=== PATIENT | male | born 1950 | race Caucasian/White ===

== ENCOUNTER 2020-05-21 09:00 | Outpatient (CLI) | payer MEDICARE, OTHER, SELFPAY ==
--- NOTE | ~2020-05-21 | CT_ITS ---
EXAMINATION: CT diagnostic chest wo con DATE: 05/21/2020 09:22 INDICATION: J39.8 - Other specified diseases of upper respiratory tract. Mass of the trachea. TECHNIQUE: Computed tomography (CT) of the chest was performed without intravenous contrast. Addition al 3D reconstructions utilizing coronal maximum intensity projection (MIP) were performed. Automated exposure control and iterative reconstruction technique were employed. The dose-length product was 65 6.50 mGy-cm. COMPARISON: CT dated 04/08/2020 and 11/17/2017 FINDINGS: Again seen is a linear band of discoid atelectasis/scarring in the left lower lobe. Tiny posterior la yering left pleural effusion. No change since 11/17/2017 and a likely benign 7 x 4 mm nodule in the ri ght lower lung along the major fissure. Also unchanged are a few additional smaller along the right m ajor and minor fissures most likely representing intrafissural lymph nodes. Calcified right lower lob e nodules and calcified right hilar and mediastinal lymph nodes consistent with old granulomatous dis ease. No pneumonia, pulmonary edema or right pleural effusion. Heart size is normal. Small amount of atherosclerotic coronary artery calcifications. No pericardial effusion. Cardiac pacemaker/defibrilla tor lead with tip near the apex of the right ventricle. Thoracic aorta is normal in caliber. There ar e couple small nodular densities, one with central small foci of gas along the posterior wall of the trachea which are new since the prior study. The prior, larger and slightly more cephalad and right l aterally positioned nodular density is no longer present. The changing number, size and position of t he densities is most consistent with mucous. No other endotracheal or endobronchial lesions identifie d. No pathologically enlarged thoracic lymphadenopathy. A few tiny hepatic and splenic calcific lesio ns consistent with old granulomatous disease. Chronic mild superior endplate compression fractures at T8 and T9. IMPRESSION: 1. Small nodular densities on the posterior wall of the trachea which have changed in number, size an d position since the relatively recent outside institution CT dated 04/08/2020 consistent with mucous. No fixed endotracheal/endobronchial nodules suspicious for neoplasm. 2. Tiny left pleural effusion. Reviewed, dictated and finalized at location A. [employer] IMPRESSION: 1. Small nodular densities on the posterior wall of the trachea which have rosenthal ged in number, size and position since the relatively recent outside institut n CT dated 04/08/2020 consistent with mucous. No fixed endotracheal/endobronchia l nodules suspicious for neoplasm. 2. Tiny left pleural effusion.
== END 2020-05-21 09:01 | disposition home or self-care (01) ==
PROVIDERS: PCP Emergency Medicine; Visit Provider Internal Medicine Pulmonary Disease
DX: J39.8 Other specified diseases of upper respiratory tract (principal); R91.8 Other nonspecific abnormal finding of lung field
CPT/HCPCS: 71250

== ENCOUNTER 2021-05-11 09:45 | Outpatient (CLI) | payer MEDICARE, SELFPAY ==
--- NOTE | ~2021-05-11 | CT_ITS ---
EXAMINATION: CT diagnostic chest wo con DATE: 05/11/2021 10:22 INDICATION: Solitary pulmonary nodule TECHNIQUE: Computed tomography (CT) of the chest was performed without intravenous contrast. The dose -length product (DLP) was 480.62 mGy-cm. Automated exposure control and iterative reconstruction tech [employer] were employed. COMPARISON: 05/21/2020 FINDINGS: No suspicious pulmonary nodules are identified. Small fissural lymph nodes are noted. Calci fied pulmonary nodules and calcified right hilar lymph nodes are consistent with old granulomatous di sease. A small amount of debris or mucous is seen in the trachea. No pathologically enlarged thoracic lymph nodes are identified. The heart size is normal. A single cardiac pacemaker of the left chest wall ends with its lead in the right ventricle. There is no pleu ral effusion or pneumothorax. Scarring is noted in the left lower lobe. Calcified coronary artery ath erosclerosis is noted. There is mild thoracic spondylosis. IMPRESSION: 1. No suspicious pulmonary nodules identified. Reviewed, dictated and finalized at location A. [employer]PRES[employer]
== END 2021-05-11 09:46 | disposition home or self-care (01) ==
PROVIDERS: PCP Emergency Medicine; Visit Provider Emergency Medicine
DX: R91.1 Solitary pulmonary nodule (principal)
CPT/HCPCS: 71250

== ENCOUNTER 2021-07-30 10:12 | Inpatient (IN) | payer OTHER, MEDICARE, SELFPAY ==
[2021-07-30] VITALS (33 sets, daily range): BP systolic 145–180; BP diastolic 78–92; PULSE 65–91; RESP 14–22; TEMP 36.4–36.6; O2SAT 91–98; BMI 31.4
--- NOTE | ~2021-07-30 | US_ITS ---
EXAMINATION: US venous doppler [facility] DATE: 07/31/2021 14:28 INDICATION: Chest pain. TECHNIQUE: Grayscale ultrasound images without and with compression and Doppler ultrasound images of the bilateral lower extremity veins were obtained. COMPARISON: None. FINDINGS: The visualized portions of right common femoral vein, profunda (deep) femoral vein, femoral vein, pop liteal vein, peroneal veins, posterior tibial veins, and greater saphenous vein outflow are patent. The visualized portions of left common femoral vein, profunda femoral vein, femoral vein, popliteal v ein, peroneal veins, posterior tibial veins, and greater saphenous vein outflow are patent. IMPRESSION: 1. No deep venous thrombosis. Reviewed, dictated and finalized at location A.
--- NOTE | ~2021-07-30 | XR_ITS ---
EXAMINATION: XR chest 2V DATE: 07/30/2021 10:43 INDICATION: Shortness of breath, hemoptysis TECHNIQUE: PA and lateral views of the chest are obtained. COMPARISON: 05/14/2015 FINDINGS: There are airspace opacities of the lingula and left lower lobe. There is no pleural effusi on or pneumothorax. The cardiomediastinal silhouette is normal. There is moderate thoracic spondylosi s. A single lead cardiac pacemaker of the left chest wall ends with its lead in the left ventricle. IMPRESSION: 1. Left basilar airspace opacities, likely pneumonia. Reviewed, dictated and finalized at location B.
--- NOTE | ~2021-07-30 | NM_ITS ---
EXAMINATION: NM pulmonary perfusion DATE: 07/30/2021 13:46 INDICATION: Chest pain and shortness of breath TECHNIQUE: 5.5 mCi Tc-99m MAA by intravenous route. Scintigraphic images of the chest were obtained. COMPARISON: Chest radiograph dated 07/30/[address] dated 05/11/2021 FINDINGS: Photopenic defect at the left apex corresponding to a cardiac pacemaker. There is a matched perfusion defects throughout the basilar segments of the left lower lobe with corresponding airspace disease o n the chest radiograph. No other perfusion defects identified. IMPRESSION: 1. Nondiagnostic/intermediate probability for pulmonary embolism. Reviewed, dictated and finalized at location A.
--- NOTE | ~2021-07-30 | US_ITS ---
EXAMINATION: US renal BI DATE: 07/31/2021 15:09 INDICATION: Acute kidney injury. TECHNIQUE: Multiple ultrasound grayscale images of the kidneys were obtained. COMPARISON: PET/CT 11/09/2016, abdomen MRI 05/21/13 FINDINGS: The right kidney measures 12.0 x 5.2 x 7.0 cm. The left kidney measures 13.0 x 6.7 x 6.4 cm. The kidn eys demonstrate normal parenchymal echogenicity. There is a 2.4 cm hyperechoic mass in right kidney. There are cysts in right kidney measuring up to 2.6 cm. There is a 3.4 cm isoechoic mass in left kidn ey. There is no hydronephrosis. The bladder is decompressed. IMPRESSION: 1. Bilateral kidney masses suspicious for malignancy and/or treatment change. Abdomen CT without and with contrast is recommended. 2. Normal kidney sizes. No hydronephrosis. Reviewed, dictated and finalized at location A. IMPRESSION: 1. Bilateral kidney masses suspicious for malignancy and/or treatment change. A bdomen CT without and with contrast is recommended. 2. Normal kidney sizes. No hydronephrosis.
--- NOTE | ~2021-07-30 | CT_ITS ---
EXAMINATION: CT chest high resolution wo fl DATE: 07/31/2021 09:00 INDICATION: Hemoptysis and shortness of breath TECHNIQUE: Computed tomography (CT) of the chest was performed without intravenous contrast. The dose -length product (DLP) was 502.35 mGy-cm. Automated exposure control and iterative reconstruction tech [employer] were employed. COMPARISON: 05/11/2021 FINDINGS: There are airspace opacities of the lingula and left lower lobe. There are small pleural ef fusions. There is no pneumothorax. Cardiomegaly is noted. There is calcified coronary artery atherosc lerosis. A single lead pacemaker of the left chest wall ends with its lead in the left ventricle. The re are no pathologically enlarged thoracic lymph nodes. Calcified pulmonary nodules and calcified rig ht hilar lymph nodes are consistent with old granulomatous disease. There is mild thoracic spondylosi s. IMPRESSION: 1. Airspace opacities of the lingula and left lower lobe, consistent with pneumonia. 2. Small pleural effusions. Reviewed, dictated and finalized at location A. IMPRESSION: 1. Airspace opacities of the lingula and left lower lobe, consistent with pneum onia. 2. Small pleural effusions.
--- NOTE | 2021-07-30 10:28 | ECG_ITS ---
Measurements Intervals [place] Rate: 85 P: MT: 0 QRS: -54 QRSD: 122 T: 122 QT: 419 QTc: 499 Interpretive Statements ATRIAL FIBRILLATION LEFT ANTERIOR FASCICULAR BLOCK BORDERLINE ST-T WAVE ABNORMALITY- HIGH LATERAL LEADS BASELINE ARTIFACT- I, II, III, AVR, AVL, AVF ABNORMAL ECG Electronically Signed On 07-30-2021 12:29:52 CDT by Rl Macias D.O.
[2021-07-30 10:47] LABS: Basophils Percent Auto 0.4 % (0.2-1.2); Eosinophils Absolute Auto 0.4 K/mm3 (0-0.3); Eosinophils Percent Auto 3.5 % (0-4.4); Hematocrit 39.9 % (42.0-52.0); Hemoglobin 12.7 g/dL (14.0-18.0); Immature Granulocyte Absolute 0.03 K/mm3 (0.00-0.031); Immature Granulocyte Percent A 0.3 % (0-0.5); Lymphocytes Absolute Auto 1.38 K/mm3 (0.9-3.2); Lymphocytes Percent Auto 13.4 % (18.3-44.2); Mean Corpuscular HGB Conc 31.8 g/dl (32-36); Mean Corpuscular Hemoglobin 30.5 pg (26-34); Mean Corpuscular Volume 95.7 fl (80-100); Mean Platelet Volume 10.1 fl (7.4-10.4); Monocytes Absolute Auto 0.7 K/mm3 (0.1-0.6); Monocytes Percent Auto 6.9 % (2.6-8.5); Neutrophils Absolute Auto 7.8 K/mm3 (1.3-6.7); Neutrophils Percent Auto 75.5 % (45.5-73.1); Platelet Count Result 120 k/mm3 (150-375); Red Blood Count 4.17 M/mm3 (4.6-6.20); Red Cell Distribution Width 13.6 % (11.5-14.5); White Blood Count 10.3 K/mm3 (4.5-10.0)
[2021-07-30 11:00] LABS: Alanine Aminotransferase 16 U/L (4-50); Albumin Level 4.1 g/dL (3.5-5.1); Alkaline Phosphatase 95 U/L (38-126); Anion Gap 9 mmol/L (8-16); Aspartate Amino Transferase 19 U/L (17-59); Bilirubin,Total 0.7 mg/dL (0.2-1.3); Blood Urea Nitrogen 68 mg/dL (9-20); Calcium 7.9 mg/dL (8.4-10.2); Carbon Dioxide 27 mmol/L (22-30); Chloride 102 mmol/L (98-107); D Dimer 3.14 ug/mL (<0.48); Estimated CRCL calculation 19 ml/min; Estimated Glomerular Filt Rate 14; Glucose 127 mg/dL (65-110); Potassium 4.3 mmol/L (3.4-5.0); Sodium 138 mmol/L (137-145)
[2021-07-30] MEDS: MORPHINE SULFATE (*CRX) 4 MG/ML INJ IV PUSH ×2 (12:36→16:10)
[2021-07-30] MEDS: ONDANSETRON INJ 4 MG/2 ML VIAL IV PUSH (12:36)
[2021-07-30 12:38] LABS: SARS-CoV-2 RNA PCR Negative
--- NOTE | 2021-07-30 13:28 | ED.SOB ---
HPI - SOB/Dyspnea General Chief Complaint: Shortness of Breath/Dyspnea Stated Complaint: coughing up blood Time Seen by Provider: 07/30/21 11:25 Source: patient Mode of arrival: ambulatory Limitations: no limitations History of Present Illness HPI Narrative: Pt presents with complaints of SOB and left lower lateral CP worse with deep breath. Pt denies trauma or fall. Pt sent in by PCP to rule out PE. Pt has renal disease. Pt als has been coughing up blood. MD elicited complaint: shortness of breath, cough, pain with inspiration and chest pain Onset (ago): day(s) (2) Timing: constant Severity: severe Exacerbating factors: coughing and inspiration Relieving factors: nothing Associated symptoms: chest pain, pain with inspiration, cough and lower extremity pain (none) Treatment prior to arrival: none Related Data Home Medications Medication Instructions Recorded Confirmed albuterol sulfate 90 mcg/actuation 1 inh INHALATION Q4H 04/23/20 04/30/20 aerosol inhaler alprazolam 1 mg tablet 1 mg PO DAILY 04/23/20 04/30/20 carisoprodol 350 mg tablet 350 mg PO TID 04/23/20 04/30/20 citalopram 20 mg tablet 20 mg PO DAILY 04/23/20 04/30/20 ergocalciferol (vitamin D2) 1,250 1,250 mcg PO WEEKLY 04/23/20 04/30/20 mcg (50,000 unit) capsule fenofibrate 54 mg tablet 54 mg PO DAILY 04/23/20 04/30/20 glimepiride 2 mg tablet 2 mg PO QAM 04/23/20 04/30/20 icosapent ethyl 1 gram capsule 2 g PO BID 04/23/20 04/30/20 insulin degludec 100 unit/mL (3 10 unit SUBCUT DAILY 04/23/20 04/30/20 mL) subcutaneous pen ipratropium bromide 17 2 puff INHALATION QID 04/23/20 04/30/20 mcg/actuation HFA aerosol inhaler lisinopril 40 mg tablet 40 mg PO DAILY 04/23/20 04/30/20 metoprolol succinate 200 mg 200 mg PO DAILY 04/23/20 04/30/20 tablet,extended release 24 hr oxycodone-acetaminophen 10 mg-325 1 tablet PO Q6H PRN 04/23/20 04/30/20 mg tablet simvastatin 10 mg tablet 10 mg PO DAILY 04/23/20 04/30/20 warfarin 5 mg tablet 5 mg PO DAILY 04/23/20 04/30/20 calcifediol 30 mcg capsule,24 30 mcg PO DAILY 04/30/20 04/30/20 hr,extended release Allergies Allergy/AdvReac Type Severity Reaction Status Date / Time No Known Allergies Allergy Unknown Verified 07/30/21 11:51 Review of Systems Review of Systems: All systems reviewed & are unremarkable except as noted in HPI and below PMFSH Past Medical History Medical History (Updated 07/30/21 @ 15:42 by Marcos Shelley III, DO) Afib Back pain Cardiac defibrillator in place Hyperlipemia Hypertension Surgical History Surgical History (Updated 04/23/20 @ 11:14 by Carla Pacheco) History of nephrectomy, right Family History Family History (Updated 04/23/20 @ 11:15 by Carla Pacheco) Sibling Brain cancer Father Diabetes mellitus Coronary artery disease Mother Alzheimer disease Social History Social History (Updated 04/30/20 @ 10:07 by Manuela Petty, [facility]) Smoking packs per day: 0.5 Smoking cigarettes per day: 10.0 Years smoked: 50 Smoking pack-years: 25.00 Smoking status: Current every day smoker Tobacco type: cigarettes Alcohol intake: never Substance use: never Exam Const: General: cooperative and no acute distress Nutritional Appearance: overweight Orientation/consciousness: patient oriented x3 Limitations: no limitations Eyes: General: appearance normal, both eyes and all related structures Neck: Neck: normal visual inspection, full ROM and no meningeal signs Chest: Chest palpation & inspection: normal inspection of the chest and tenderness (tender left lateral chest wall) Resp: Effort & Inspection: normal respiratory effort, able to speak in complete sentences and audible wheezes Auscultation: wheezes Cardio: Rate: regular rate Rhythm: regular rhythm GI: Inspection: normal to inspection GI Palp: Yes abdominal tenderness (none) and Yes Soft to palpation Auscultation: normal bowel sounds Skin: General skin exam: normal color Lesion
[2021-07-30] MEDS: ENOXAPARIN 120 MG/0.8 ML SYRINGE 105 MG SUB-Q (15:51)
[2021-07-30] MEDS: cefTRIAXone 2 GM in SODIUM CHLORIDE 0.9% IV 100 ML 200 ML IVPB (16:10)
--- NOTE | 2021-07-30 18:49 | PC.NURSE ---
patient transferred to floor with zithromycin infusing
--- NOTE | 2021-07-30 18:57 | ADMGEN ---
This patient, Lencho Baker, was admitted to Medical Room 251-. Patient/family oriented to hospital policies and general routines including ID bracelet, bed and alarms, visiting hours, pain management, procedures, bathroom and other care routines, personal items, smoking policy, room service/diet, and visiting hours. Information on how to activate the Rapid Response Team has been discussed. Patient/Family are encouraged to report perceived risks to care and to ask questions if they do not understand what they are told or what they should do.
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
[2021-07-30 23:01] LABS: Glucose Point of Care 127 mg/dl (65-105)
[2021-07-30 23:01] LABS: Glucose Point of Care 187 mg/dl (65-105)
[2021-07-31] VITALS (12 sets, daily range): BP systolic 151–166; BP diastolic 75–86; PULSE 71–92; RESP 14–20; TEMP 35.7–36.2; O2SAT 93–98
[2021-07-31] MEDS: ZOLPIDEM TARTRATE (*CRX) 5 MG TABLET PO (02:33)
[2021-07-31] MEDS: carisoprodoL (*CRX) 350 MG TABLET PO ×4 (02:36→16:34)
[2021-07-31 04:44] LABS: Creatinine Urine 56.6 mg/dL
[2021-07-31 04:51] LABS: Sodium Urine Random 86 meq/L
[2021-07-31] MEDS: SODIUM CHLORIDE 0.9% IV 1,000 ML 100 ML IV CONT (04:52)
[2021-07-31] MEDS: oxyCODONE HCL (*CRX) 5 MG TAB IR PO ×3 (07:25→20:08)
[2021-07-31] MEDS: oxyCODONE/ACETAMINOPHEN (*CRX) 5-325 MG TABLET 1 TABLET PO ×3 (07:26→20:06)
[2021-07-31 07:37] LABS: Basophils Percent Auto 0.5 % (0.2-1.2); Eosinophils Absolute Auto 0.3 K/mm3 (0-0.3); Eosinophils Percent Auto 3.1 % (0-4.4); Hematocrit 37.6 % (42.0-52.0); Hemoglobin 12.4 g/dL (14.0-18.0); Immature Granulocyte Absolute 0.05 K/mm3 (0.00-0.031); Immature Granulocyte Percent A 0.6 % (0-0.5); Immature Platelet Fraction Pct 1.8 % (0.9-11.2); Lymphocytes Absolute Auto 0.79 K/mm3 (0.9-3.2); Lymphocytes Percent Auto 9.6 % (18.3-44.2); Mean Corpuscular Hemoglobin 30.5 pg (26-34); Mean Corpuscular Volume 92.6 fl (80-100); Monocytes Absolute Auto 0.5 K/mm3 (0.1-0.6); Monocytes Percent Auto 5.7 % (2.6-8.5); Neutrophils Absolute Auto 6.7 K/mm3 (1.3-6.7); Neutrophils Percent Auto 80.5 % (45.5-73.1); Platelet Count Result 114 k/mm3 (150-375); Red Blood Count 4.06 M/mm3 (4.6-6.20); Red Cell Distribution Width 13.3 % (11.5-14.5); White Blood Count 8.3 K/mm3 (4.5-10.0)
[2021-07-31 07:44] LABS: INR 1.9; Prothrombin Time 21.3 Seconds (11.1-14.7)
[2021-07-31 07:45] LABS: Glucose Point of Care 73 mg/dl (65-105)
[2021-07-31 08:03] LABS: Alanine Aminotransferase 15 U/L (4-50); Albumin Level 3.8 g/dL (3.5-5.1); Alkaline Phosphatase 95 U/L (38-126); Anion Gap 10 mmol/L (8-16); Aspartate Amino Transferase 19 U/L (17-59); Bilirubin,Total 0.6 mg/dL (0.2-1.3); Blood Urea Nitrogen 69 mg/dL (9-20); Calcium 7.7 mg/dL (8.4-10.2); Carbon Dioxide 24 mmol/L (22-30); Chloride 104 mmol/L (98-107); Estimated CRCL calculation 21 ml/min; Estimated Glomerular Filt Rate 16; Glucose 76 mg/dL (65-110); Potassium 4.4 mmol/L (3.4-5.0); Sodium 138 mmol/L (137-145)
[2021-07-31] MEDS: CITALOPRAM HYDROBROMIDE 20 MG TABLET PO (08:13)
[2021-07-31] MEDS: OMEGA 3 POLYUNSAT FATTY ACIDS 1 GM CAP 2 GM PO ×2 (08:13→16:34)
[2021-07-31] MEDS: FENOFIBRATE,MICRONIZED 48 MG TABLET PO (08:15)
[2021-07-31] MEDS: METOPROLOL SUCCINATE EXT REL 100 MG TABCR 200 MG PO (08:16)
[2021-07-31] MEDS: ALPRAZolam (*CRX) 0.5 MG TABLET 1 MG PO (08:17)
[2021-07-31] MEDS: SIMVASTATIN 10 MG TABLET PO (08:17)
[2021-07-31] MEDS: INSULIN GLARGINE (*BKC) 100 UNITS/ML 10 UNITS SUB-Q (08:27)
[2021-07-31 11:28] LABS: Glucose Point of Care 112 mg/dl (65-105)
--- NOTE | 2021-07-31 11:33 | PM.IMPN ---
Progress Note: A&P Assessment and Plan (1) Community acquired pneumonia: Code(s): J18.9 - Pneumonia, unspecified organism Status: Acute Assessment and Plan: Monitor vital signs, I&Os, neuro status and patient is a fall risk Follow WBC, serum electrolytes, temperature curves and cultures Send sputum cultures Oxygen via NC; wean as tolerated. Keep SpO2 greater than 88% Gentle IV fluid resuscitation Ceftriaxone 2 gram IV q24H and Azithromycin 500mg IV q24H, transition to doxycycline on 08/01/21 DuoNeb q6H and Albuterol q2H PRN P.r.n. Tylenol, Zofran, and melatonin (2) Cough with hemoptysis: Code(s): R04.2 - Hemoptysis Status: Acute Assessment and Plan: High-resolution CT resulted in evaluation that was consistent with pneumonia Continue to monitor V/Q intermediate probability for PE currently on therapeutic Lovenox and warfarin, discussed about transitioning to another anticoagulation such as Eliquis and Xarelto Obtain we Doppler to rule out DVTs (3) Acute renal failure: Code(s): N17.9 - Acute kidney failure, unspecified Status: Acute Assessment and Plan: Will place Quinn catheter Renal ultrasound IV fluids Repeat BMP in a.m. Holding lisinopril Obtain records from Dr. 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 Dumont and suggested it was mucus in the CT scan reading (5) Tobacco dependence: Code(s): F17.200 - Nicotine dependence, unspecified, uncomplicated Status: Acute Assessment and Plan: Smoking cessation counseling given for 3 minutes, will add nicotine patch daily (6) Cardiac defibrillator in place: Code(s): Z95.810 - Presence of automatic (implantable) cardiac defibrillator Status: Inactive Assessment and Plan: Continue to monitor (7) Hypertension: Code(s): I10 - Essential (primary) hypertension Status: Inactive Assessment and Plan: Holding lisinopril Continue to monitor On metoprolol (8) Type 2 diabetes mellitus: Code(s): E11.9 - Type 2 diabetes mellitus without complications Status: Acute Assessment and Plan: Holding oral agents Insulin sliding scale as needed (9) Afib: Code(s): I48.91 - Unspecified atrial fibrillation Status: Inactive Assessment and Plan: Anticoagulated and rate controlled Subjective Date/time seen: 07/31/21 11:33 S patient is alert and oriented this morning. Discussed plan of care. Patient continues on Rocephin and azithromycin. It appears the patient had failed Coumadin therapy he reports that his INR has been therapeutic however he developed a pulmonary embolism therefore he is on Lovenox therapeutically consider anticoagulation such as Eliquis or Xarelto. 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 Dumont with Pulmonary a couple of years ago decided that it was mucous and suggested for him to follow-up within 1 year. CTS reviewed under revealed opacities in the lingula and left lower lobe consistent with pneumonia. Patient is currently on room air and does not require supplemental oxygen. Will transition his IV antibiotics to oral tomorrow. Patient's renal function is also noted to be significantly elevated than prior in 2018. Patient's creatinine at that time was 2.2 and a BUN of 41. Patient does follow with Nephrology Dr. Cruz from [facility]. The patient reported he has CKD stage 3. Will attempt to obtain records from Dr. Cruz. Review of Systems Review of Systems: All systems reviewed & are unremarkable except as noted in HPI and below Exam Narrative: General: No acute
[2021-07-31 16:25] LABS: Glucose Point of Care 108 mg/dl (65-105)
[2021-07-31] MEDS: ENOXAPARIN 120 MG/0.8 ML SYRINGE 105 MG SUB-Q (16:34)
[2021-07-31] MEDS: WARFARIN (*PBKC) 5 MG TABLET PO (18:03)
[2021-07-31 21:22] LABS: Glucose Point of Care 159 mg/dl (65-105)
[2021-08-01] VITALS (12 sets, daily range): BP systolic 157–173; BP diastolic 54–100; PULSE 72–93; RESP 14–20; TEMP 36.2–36.3; O2SAT 94–98
[2021-08-01] MEDS: ZOLPIDEM TARTRATE (*CRX) 5 MG TABLET PO ×2 (00:36→20:18)
[2021-08-01] MEDS: SODIUM CHLORIDE 0.9% IV 1,000 ML 100 ML IV CONT ×3 (00:39→20:19)
[2021-08-01] MEDS: oxyCODONE HCL (*CRX) 5 MG TAB IR PO ×3 (01:58→17:30)
[2021-08-01] MEDS: oxyCODONE/ACETAMINOPHEN (*CRX) 5-325 MG TABLET 1 TABLET PO ×3 (01:58→17:29)
[2021-08-01] MEDS: ALPRAZolam (*CRX) 0.5 MG TABLET 1 MG PO ×2 (03:58→20:17)
[2021-08-01 06:07] LABS: Basophils Absolute Auto 0.1 K/mm3 (0.0-0.1); Basophils Percent Auto 0.5 % (0.2-1.2); Eosinophils Absolute Auto 0.2 K/mm3 (0-0.3); Eosinophils Percent Auto 2.3 % (0-4.4); Hematocrit 38.2 % (42.0-52.0); Hemoglobin 12.2 g/dL (14.0-18.0); Immature Granulocyte Absolute 0.07 K/mm3 (0.00-0.031); Immature Granulocyte Percent A 0.7 % (0-0.5); Immature Platelet Fraction Pct 2.1 % (0.9-11.2); Lymphocytes Absolute Auto 0.86 K/mm3 (0.9-3.2); Lymphocytes Percent Auto 9.1 % (18.3-44.2); Mean Corpuscular HGB Conc 31.9 g/dl (32-36); Mean Corpuscular Hemoglobin 30.5 pg (26-34); Mean Corpuscular Volume 95.5 fl (80-100); Monocytes Absolute Auto 0.5 K/mm3 (0.1-0.6); Monocytes Percent Auto 4.8 % (2.6-8.5); Neutrophils Absolute Auto 7.8 K/mm3 (1.3-6.7); Neutrophils Percent Auto 82.6 % (45.5-73.1); Platelet Count Result 128 k/mm3 (150-375); Red Cell Distribution Width 13.4 % (11.5-14.5); White Blood Count 9.4 K/mm3 (4.5-10.0)
[2021-08-01 06:16] LABS: INR 1.9
[2021-08-01 06:20] LABS: Alanine Aminotransferase 14 U/L (4-50); Albumin Level 3.7 g/dL (3.5-5.1); Alkaline Phosphatase 94 U/L (38-126); Anion Gap 7 mmol/L (8-16); Aspartate Amino Transferase 19 U/L (17-59); Bilirubin,Total 0.4 mg/dL (0.2-1.3); Blood Urea Nitrogen 62 mg/dL (9-20); Calcium 7.5 mg/dL (8.4-10.2); Carbon Dioxide 23 mmol/L (22-30); Chloride 105 mmol/L (98-107); Estimated CRCL calculation 21 ml/min; Estimated Glomerular Filt Rate 16; Glucose 99 mg/dL (65-110); Magnesium 1.9 mg/dL (1.6-2.3); Potassium 4.7 mmol/L (3.4-5.0); Sodium 135 mmol/L (137-145)
[2021-08-01 07:38] LABS: Glucose Point of Care 97 mg/dl (65-105)
[2021-08-01] MEDS: METOPROLOL SUCCINATE EXT REL 100 MG TABCR 200 MG PO (08:59)
[2021-08-01] MEDS: DOXYCYCLINE HYCLATE 100 MG TABLET PO ×2 (09:00→20:17)
[2021-08-01] MEDS: FENOFIBRATE,MICRONIZED 48 MG TABLET PO (09:00)
[2021-08-01] MEDS: SIMVASTATIN 10 MG TABLET PO (09:00)
[2021-08-01] MEDS: CITALOPRAM HYDROBROMIDE 20 MG TABLET PO (09:01)
[2021-08-01] MEDS: OMEGA 3 POLYUNSAT FATTY ACIDS 1 GM CAP 2 GM PO ×2 (09:01→17:20)
[2021-08-01] MEDS: INSULIN GLARGINE (*BKC) 100 UNITS/ML 10 UNITS SUB-Q (09:02)
--- NOTE | 2021-08-01 10:51 | PC.NURSE ---
awaiting pharmacy to send 0900 soma for patient. called and left a message as well as spoke with someone second times I called. will give when I receive
--- NOTE | 2021-08-01 11:15 | PM.IMPN ---
Progress Note: A&P Assessment and Plan (1) Community acquired pneumonia: Code(s): J18.9 - Pneumonia, unspecified organism Status: Acute Assessment and Plan: Monitor vital signs, I&Os, neuro status and patient is a fall risk Follow WBC, serum electrolytes, temperature curves and cultures Send sputum cultures Oxygen via NC; wean as tolerated. Keep SpO2 greater than 88% Gentle IV fluid resuscitation Ceftriaxone 2 gram IV q24H and Azithromycin 500mg IV q24H, transitioned to doxycycline on 08/01/21 DuoNeb q6H and Albuterol q2H PRN P.r.n. Tylenol, Zofran, and melatonin (2) Cough with hemoptysis: Code(s): R04.2 - Hemoptysis Status: Acute Assessment and Plan: High-resolution CT resulted in evaluation that was consistent with pneumonia Continue to monitor V/Q intermediate probability for PE currently on therapeutic Lovenox and warfarin, discussed about transitioning to another anticoagulation such as Eliquis and Xarelto. sent prior authorization that insurance for Eliquis Negative Dopplers for DVT (3) Acute renal failure: Code(s): N17.9 - Acute kidney failure, unspecified Status: Acute Assessment and Plan: Discontinue Quinn catheter Renal ultrasound revealed bilateral masses suspicious for malignancy, unable to obtain CT of the abdomen with contrast due to the patient's renal function. Continuing to attempt Dr. Cruz at [facility] for further evaluation of the patient's renal disease. Patient was agreeable to speaking with Oncology for possible renal masses, he would like to follow with his tape transferrer Dr. Cruz at [facility]. However, the patient does not want any treatment or further discussion in the hospital and would like to follow up as an outpatient. Patient does have a history of renal cancer the patient is unaware if he has been treated for this in the past or not. Continue IV fluids, renal function has mildly improved Repeat BMP in a.m. Holding lisinopril Obtain records from Dr. Cruz at [facility], patient reports he has CKD stage 3 (4) Tracheal mass: Onset Date: 04/08/20 Code(s): J39.8 - Other specified diseases of upper respiratory tract Status: Acute Assessment and Plan: History of tracheal mass, this was ruled out by Dr. Dumont and suggested it was mucus in the CT scan reading (5) Tobacco dependence: Code(s): F17.200 - Nicotine dependence, unspecified, uncomplicated Status: Acute Assessment and Plan: Smoking cessation counseling given for 3 minutes, will add nicotine patch daily (6) Cardiac defibrillator in place: Code(s): Z95.810 - Presence of automatic (implantable) cardiac defibrillator Status: Inactive Assessment and Plan: Continue to monitor (7) Hypertension: Code(s): I10 - Essential (primary) hypertension Status: Inactive Assessment and Plan: Holding lisinopril Continue to monitor On metoprolol (8) Type 2 diabetes mellitus: Code(s): E11.9 - Type 2 diabetes mellitus without complications Status: Acute Assessment and Plan: Holding oral agents Insulin sliding scale as needed (9) Afib: Code(s): I48.91 - Unspecified atrial fibrillation Status: Inactive Assessment and Plan: Anticoagulated and rate controlled (10) Pulmonary embolism: Code(s): I26.99 - Other pulmonary embolism without acute cor pulmonale Status: Acute Assessment and Plan: Patient has been treated for pulmonary embolism in the inpatient setting due to an indeterminate reading on a V/Q scan. Will discontinue Lovenox and Coumadin and place the patient on Eliquis. Patient has failed Coumadin therapy for anticoagulation as he developed a pulmonary embolism with therapeutic INRs. Subjective Date/time seen: 08/01/21 11:15 Patient is alert and oriented this morning. He continues to be on Coumadin and Lovenox. Will attemp
[2021-08-01 11:48] LABS: Glucose Point of Care 94 mg/dl (65-105)
[2021-08-01] MEDS: carisoprodoL (*CRX) 350 MG TABLET PO ×2 (13:23→17:29)
[2021-08-01] MEDS: ALBUTEROL SULFATE (*SP) AEROSOL 1 PUFF INHALATION (13:57)
[2021-08-01 16:52] LABS: Glucose Point of Care 80 mg/dl (65-105)
--- NOTE | 2021-08-01 18:46 | PC.NURSE ---
Calcifediol was supposed to be brought in by family member,not received as of 1844.
[2021-08-01] MEDS: APIXABAN 5 MG TABLET PO (20:18)
[2021-08-01 21:23] LABS: Glucose Point of Care 88 mg/dl (65-105)
[2021-08-02] VITALS: PULSE 78
[2021-08-02 04:00] VITALS: PULSE 72
[2021-08-02 04:32] VITALS: BP 160/82; PULSE 73; RESP 16; TEMP 36.1; O2SAT 97
[2021-08-02] MEDS: oxyCODONE HCL (*CRX) 5 MG TAB IR PO (06:04)
[2021-08-02] MEDS: oxyCODONE/ACETAMINOPHEN (*CRX) 5-325 MG TABLET 1 TABLET PO (06:05)
[2021-08-02] MEDS: ALPRAZolam (*CRX) 0.5 MG TABLET 1 MG PO (06:08)
[2021-08-02 06:50] LABS: Basophils Absolute Auto 0.1 K/mm3 (0.0-0.1); Basophils Percent Auto 0.6 % (0.2-1.2); Eosinophils Absolute Auto 0.2 K/mm3 (0-0.3); Eosinophils Percent Auto 2.7 % (0-4.4); Hematocrit 39.6 % (42.0-52.0); Hemoglobin 12.7 g/dL (14.0-18.0); Immature Granulocyte Absolute 0.03 K/mm3 (0.00-0.031); Immature Granulocyte Percent A 0.3 % (0-0.5); Lymphocytes Absolute Auto 0.89 K/mm3 (0.9-3.2); Lymphocytes Percent Auto 10.2 % (18.3-44.2); Mean Corpuscular HGB Conc 32.1 g/dl (32-36); Mean Corpuscular Hemoglobin 30.3 pg (26-34); Mean Corpuscular Volume 94.5 fl (80-100); Mean Platelet Volume 10.5 fl (7.4-10.4); Monocytes Absolute Auto 0.5 K/mm3 (0.1-0.6); Monocytes Percent Auto 5.1 % (2.6-8.5); Neutrophils Absolute Auto 7.1 K/mm3 (1.3-6.7); Neutrophils Percent Auto 81.1 % (45.5-73.1); Platelet Count Result 128 k/mm3 (150-375); Red Blood Count 4.19 M/mm3 (4.6-6.20); Red Cell Distribution Width 13.3 % (11.5-14.5); White Blood Count 8.8 K/mm3 (4.5-10.0)
[2021-08-02 06:58] LABS: Alanine Aminotransferase 14 U/L (4-50); Albumin Level 3.7 g/dL (3.5-5.1); Alkaline Phosphatase 90 U/L (38-126); Anion Gap 9 mmol/L (8-16); Aspartate Amino Transferase 23 U/L (17-59); Bilirubin,Total 0.5 mg/dL (0.2-1.3); Blood Urea Nitrogen 55 mg/dL (9-20); Calcium 7.9 mg/dL (8.4-10.2); Carbon Dioxide 19 mmol/L (22-30); Chloride 108 mmol/L (98-107); Estimated CRCL calculation 28 ml/min; Estimated Glomerular Filt Rate 23; Glucose 97 mg/dL (65-110); Potassium 4.4 mmol/L (3.4-5.0); Sodium 136 mmol/L (137-145)
[2021-08-02 07:06] LABS: INR 2.3; Prothrombin Time 24.4 Seconds (11.1-14.7)
[2021-08-02 08:00] VITALS: PULSE 88
[2021-08-02 08:03] VITALS: BP 185/88
[2021-08-02] MEDS: CITALOPRAM HYDROBROMIDE 20 MG TABLET PO (08:04)
[2021-08-02] MEDS: DOXYCYCLINE HYCLATE 100 MG TABLET PO (08:04)
[2021-08-02] MEDS: APIXABAN 5 MG TABLET PO (08:04)
[2021-08-02 08:05] VITALS: PULSE 76
[2021-08-02] MEDS: FENOFIBRATE,MICRONIZED 48 MG TABLET PO (08:05)
[2021-08-02] MEDS: OMEGA 3 POLYUNSAT FATTY ACIDS 1 GM CAP 2 GM PO (08:05)
[2021-08-02] MEDS: INSULIN GLARGINE (*BKC) 100 UNITS/ML 10 UNITS SUB-Q (08:05)
[2021-08-02] MEDS: SIMVASTATIN 10 MG TABLET PO (08:05)
[2021-08-02] MEDS: METOPROLOL SUCCINATE EXT REL 100 MG TABCR 200 MG PO (08:05)
[2021-08-02 08:06] LABS: Glucose Point of Care 136 mg/dl (65-105)
[2021-08-02] MEDS: carisoprodoL (*CRX) 350 MG TABLET PO (08:08)
[2021-08-02] MEDS: SODIUM CHLORIDE 0.9% IV 1,000 ML 100 ML IV CONT (08:12)
--- NOTE | 2021-08-02 09:03 | PM.DS ---
DS: Admitting Diagnosis Discharge Date 08/02/2021 Admitting Diagnosis Pulmonary embolism Community-acquired pneumonia Shortness of breath DS: Discharge Diagnosis Discharge Diagnosis (1) Community acquired pneumonia: Code(s): J18.9 - Pneumonia, unspecified organism Status: Acute Assessment and Plan: Monitor vital signs, I&Os, neuro status and patient is a fall risk Follow WBC, serum electrolytes, temperature curves and cultures Send sputum cultures Oxygen via NC; wean as tolerated. Keep SpO2 greater than 88% Gentle IV fluid resuscitation Ceftriaxone 2 gram IV q24H and Azithromycin 500mg IV q24H, transitioned to doxycycline on 08/01/21 DuoNeb q6H and Albuterol q2H PRN P.r.n. Tylenol, Zofran, and melatonin (2) Cough with hemoptysis: Code(s): R04.2 - Hemoptysis Status: Acute Assessment and Plan: High-resolution CT resulted in evaluation that was consistent with pneumonia Continue to monitor V/Q intermediate probability for PE currently on therapeutic Lovenox and warfarin, discussed about transitioning to another anticoagulation such as Eliquis and Xarelto. sent prior authorization that insurance for Eliquis Negative Dopplers for DVT (3) Acute renal failure: Code(s): N17.9 - Acute kidney failure, unspecified Status: Acute Assessment and Plan: Discontinue Quinn catheter Renal ultrasound revealed bilateral masses suspicious for malignancy, unable to obtain CT of the abdomen with contrast due to the patient's renal function. Continuing to attempt Dr. Cruz at [facility] for further evaluation of the patient's renal disease. Patient was agreeable to speaking with Oncology for possible renal masses, he would like to follow with his regulatory compliance coordinator Dr. Cruz at [facility]. However, the patient does not want any treatment or further discussion in the hospital and would like to follow up as an outpatient. Patient does have a history of renal cancer the patient is unaware if he has been treated for this in the past or not. Continue IV fluids, renal function has mildly improved Repeat BMP in a.m. Holding lisinopril Obtain records from Dr. Cruz at [facility], patient reports he has CKD stage 3 (4) Tracheal mass: Onset Date: 04/08/20 Code(s): J39.8 - Other specified diseases of upper respiratory tract Status: Acute Assessment and Plan: History of tracheal mass, this was ruled out by Dr. Dumont and suggested it was mucus in the CT scan reading (5) Tobacco dependence: Code(s): F17.200 - Nicotine dependence, unspecified, uncomplicated Status: Acute Assessment and Plan: Smoking cessation counseling given for 3 minutes, will add nicotine patch daily (6) Cardiac defibrillator in place: Code(s): Z95.810 - Presence of automatic (implantable) cardiac defibrillator Status: Inactive Assessment and Plan: Continue to monitor (7) Hypertension: Code(s): I10 - Essential (primary) hypertension Status: Inactive Assessment and Plan: Holding lisinopril Continue to monitor On metoprolol (8) Type 2 diabetes mellitus: Code(s): E11.9 - Type 2 diabetes mellitus without complications Status: Acute Assessment and Plan: Holding oral agents Insulin sliding scale as needed (9) Afib: Code(s): I48.91 - Unspecified atrial fibrillation Status: Inactive Assessment and Plan: Anticoagulated and rate controlled (10) Pulmonary embolism: Code(s): I26.99 - Other pulmonary embolism without acute cor pulmonale Status: Acute Assessment and Plan: Patient has been treated for pulmonary embolism in the inpatient setting due to an indeterminate reading on a V/Q scan. Will discontinue Lovenox and Coumadin and place the patient on Eliquis. Patient has failed Coumadin therapy for anticoagulation as he developed a pulmonary embolism with therapeutic IN
== END 2021-08-02 11:39 | disposition home or self-care (01) | DRG 193 ==
LOC: ANHED 15:42 → ANH2MED 17:46
PROVIDERS: Internal Medicine; Admitting Provider Internal Medicine; Emergency Provider Emergency Medicine; PCP Emergency Medicine; Visit Provider Nurse Practitioner Family
DX: J18.9 Pneumonia, unspecified organism (principal); I26.99 Other pulmonary embolism without acute cor pulmonale; R04.2 Hemoptysis; N17.9 Acute kidney failure, unspecified; J44.0 Chronic obstructive pulmonary disease with (acute) lower respiratory infection; Z20.822 Contact with and (suspected) exposure to COVID-19; E11.22 Type 2 diabetes mellitus with diabetic chronic kidney disease; I12.9 Hypertensive chronic kidney disease with stage 1 through stage 4 chronic kidney disease, or unspecified chronic kidney disease; N18.30 Chronic kidney disease, stage 3 unspecified; F17.210 Nicotine dependence, cigarettes, uncomplicated; I48.91 Unspecified atrial fibrillation; E78.5 Hyperlipidemia, unspecified; Z79.01 Long term (current) use of anticoagulants; Z79.84 Long term (current) use of oral hypoglycemic drugs; Z85.53 Personal history of malignant neoplasm of renal pelvis; Z90.5 Acquired absence of kidney; Z95.810 Presence of automatic (implantable) cardiac defibrillator
CPT/HCPCS: 36415; 71046; 71250; 76775; 78580; 80053; 82570; 82948; 83735; 84300; 85025; 85055; 85380; 85610; 93005; 93970; 94640; 96361; 96365; 96372; 96375; 96376; 99285; A9270; A9540; C9803; G0378; J0456; J0696; J1650; J1815; J2270; J2405; J7030; U0003; U0005

== ENCOUNTER 2021-09-04 12:17 | Inpatient (IN) | payer MEDICARE, OTHER, SELFPAY ==
[2021-09-04] VITALS (12 sets, daily range): BP systolic 105–148; BP diastolic 57–84; PULSE 80–126; RESP 16–25; TEMP 36.1–36.8; O2SAT 85–100; BMI 39.1
--- NOTE | ~2021-09-04 | CT_ITS ---
EXAMINATION: CT brain wo con DATE: 09/04/2021 15:23 INDICATION: Confusion. Increased weakness. TECHNIQUE: Computed tomography (CT) of the head was performed without intravenous contrast. The mA wa s adjusted according to patient size. Iterative reconstruction technique was employed. Exam dose: 68 1.00 mGy-cm total exam DLP. COMPARISON: 04/18/2006 CT brain FINDINGS: There is cerebral atherosclerosis including bilateral carotid siphon internal carotid arter y calcifications. There is nonspecific diminished attenuation of the cerebral white matter, likely du e to chronic small vessel ischemic changes. Small focal asymmetric area of diminished attenuation at the anterior limb of the right internal caps ule may be a chronic small lacunar infarct The included mastoid air cells and paranasal sinuses are unremarkable. No fracture or bone destruction of the cranial vault There is moderate central and cortical cerebral and cerebellar atrophy. No intracranial mass lesion or hemorrhage, midline shift or mass effect. No subdural or epidural yuri solomon. IMPRESSION: Cerebral atherosclerosis and chronic small vessel ischemic changes of cerebral white mat ter Small asymmetric area of diminished attenuation in the anterior limb of right internal capsule which may be a chronic small lacunar infarct Reviewed, dictated and finalized at [facility]. Reviewed, dictated and finalized at [facility]. IMPRESSION: Cerebral atherosclerosis and chronic small vessel ischemic changes of cerebral white matter Small asymmetric area of diminished attenuation in the anterior limb of right i nternal capsule which may be a chronic small lacunar infarct
--- NOTE | ~2021-09-04 | US_ITS ---
EXAMINATION:US venous doppler LE BI INDICATION:Pulmonary embolism. TECHNIQUE: Multiple grayscale, color flow and Doppler images of the right and left lower extremity de ep venous systems were obtained and reviewed. COMPARISON:No prior studies for comparison. FINDINGS: The common femoral, superficial femoral and popliteal veins demonstrate normal respiratory variation, augmentation and compressibility. Color flow is also seen within the posterior tibial, pe roneal, greater saphenous and profunda veins. IMPRESSION: 1: No lower extremity deep venous thrombosis. Reviewed, dictated and finalized at [facility].
--- NOTE | ~2021-09-04 | CT_ITS ---
EXAMINATION: CT abdomen pelvis wo con DATE: 09/04/2021 15:23 INDICATION: Right flank pain. History of renal cancer. TECHNIQUE: Computed tomography (CT) of the abdomen and pelvis was performed without intravenous contr ast. The dose-length product was 1486.08 mGy-cm. Automated exposure control and iterative reconstruction technique were employed. COMPARISON: CT dated 09/29/2012. FINDINGS: There is patchy airspace disease of the lower lobes which may represent atelectasis or pneu monia. Small pleural effusions. There is a complex heterogeneous appearance to the left kidney, suspicious for perinephric hematoma, although underlying mass is not excluded without contrast. There is a heterogeneous appearance to the margin of the right kidney as well posteriorly. There are multiple exophytic masses at the lower bing e of the right kidney, poorly defined. There are calcified granulomas of the spleen. The liver is unremarkable. Gallbladder is present. The pancreas and adrenal glands are unremarkable. Nonobstructive bowel gas pattern. Colonic diverticulosi s without evidence for diverticulitis. Moderate fecal loading of the rectum. No focal lytic or blasti c lesions. No acute osseous abnormality. IMPRESSION: 1. Complex appearance of the left kidney, with probable perinephric hematoma. There is heterogeneous appearance to the remainder of both kidneys with multiple small exophytic masses at the lower pole of the right kidney. Recommend correlation with MRI with contrast to exclude enhancing mass, particular ly given the history of prior renal cell carcinoma. 2: Patchy bibasilar airspace disease which may represent atelectasis or pneumonia. Reviewed, dictated and finalized at location B. IMPRESSION: 1. Complex appearance of the left kidney, with probable perinephric hematoma. T here is heterogeneous appearance to the remainder of both kidneys with multiple small exophytic masses at the lower pole of the right kidney. Recommend correl ation with MRI with contrast to exclude enhancing mass, particularly given the history of prior renal cell carcinoma. 2: Patchy bibasilar airspace disease which may represent atelectasis or pneumo rancho.
--- NOTE | ~2021-09-04 | XR_ITS ---
XR chest 1V portable DATE: 09/04/2021 13:41 INDICATION: Weakness. Transient alteration of awareness. TECHNIQUE: Portable AP chest on 09/04/2021 at 1337 hours COMPARISON: 07/31/2021 CT chest high resolution scan 07/30/2021 2 view chest FINDINGS: There is improvement but incomplete resolution of left lower lobe infiltrate since 07/30/2021 . Minimal atelectasis at right lung base. Cardiomegaly. Aortic calcification. Left-sided pacemaker device with lead overlying right ventricular apex. IMPRESSION: Diminished left lower lobe infiltrate since 07/30/2021; minimal right basilar atelectasis Cardiomegaly Left-sided pacemaker Reviewed, dictated and finalized at location A.
[2021-09-04] MEDS: SODIUM CHLORIDE 0.9% IV 1,000 ML 999 ML IV CONT (12:48)
[2021-09-04 12:58] LABS: Basophils Percent Auto 0.3 % (0.2-1.2); Eosinophils Absolute Auto 0.2 K/mm3 (0-0.3); Hematocrit 26.1 % (42.0-52.0); Hemoglobin 8.2 g/dL (14.0-18.0); Immature Granulocyte Absolute 0.07 K/mm3 (0.00-0.031); Immature Granulocyte Percent A 0.8 % (0-0.5); Lymphocytes Absolute Auto 1.01 K/mm3 (0.9-3.2); Lymphocytes Percent Auto 11.2 % (18.3-44.2); Mean Corpuscular HGB Conc 31.4 g/dl (32-36); Mean Corpuscular Hemoglobin 29.9 pg (26-34); Mean Corpuscular Volume 95.3 fl (80-100); Mean Platelet Volume 9.5 fl (7.4-10.4); Monocytes Absolute Auto 0.6 K/mm3 (0.1-0.6); Monocytes Percent Auto 6.2 % (2.6-8.5); Neutrophils Absolute Auto 7.2 K/mm3 (1.3-6.7); Neutrophils Percent Auto 79.5 % (45.5-73.1); Platelet Count Result 196 k/mm3 (150-375); Red Blood Count 2.74 M/mm3 (4.6-6.20); Red Cell Distribution Width 13.8 % (11.5-14.5)
[2021-09-04 13:04] LABS: Alveolar/Arterial O2 Gradient 33.3 mmHg; Base Excess ABG -7.7 mEq/l (+/-2.0); Fractional Inspired Oxygen 21 %; HCO3 ABG 18.3 mEq/l (22.0-26.0); Oxygen Content ABG 12.4 %vol (16.0-22.0); Oxygen Saturation ABG 92.1 % (95.0-100.0); Oxyhemoglobin 91.2 % THb (90.0-100.0); PCO2 ABG 39.2 mmHg (35.0-45.0); PO2 ABG 69.5 mmHg (80.0-100.0); PO2 FiO2 Ratio Arterial Blood 3.31 %; Total Hemoglobin 9.6 g/dL (12.0-18.0)
[2021-09-04 13:05] LABS: Device ROOM AIR; Modified Allen's Test Pass; Site Drawn RIGHT RADIAL
[2021-09-04 13:12] LABS: Lactic Acid Reflex 0.6 mmol/L (0.7-2.0)
[2021-09-04 13:14] LABS: Anion Gap 11 mmol/L (8-16); Blood Urea Nitrogen 100 mg/dL (9-20); Carbon Dioxide 20 mmol/L (22-30); Chloride 104 mmol/L (98-107); Estimated CRCL calculation 10 ml/min; Estimated Glomerular Filt Rate 6; Potassium 6.8 mmol/L (3.4-5.0); Sodium 135 mmol/L (137-145)
[2021-09-04 13:15] LABS: pH ABG 7.288 (7.350-7.450)
[2021-09-04 13:15] LABS: Alanine Aminotransferase 21 U/L (6-50); Albumin Level 3.4 g/dL (3.5-5.1); Alkaline Phosphatase 161 U/L (38-126); Aspartate Amino Transferase 22 U/L (17-59); Bilirubin,Total 0.6 mg/dL (0.2-1.3); Calcium 7.6 mg/dL (8.4-10.2); Glucose 62 mg/dL (65-110)
[2021-09-04 13:17] LABS: INR 1.6; Partial Thromboplastin Time 40.5 SECONDS (22.3-36.8); Prothrombin Time 18.5 Seconds (11.1-14.7)
--- NOTE | 2021-09-04 13:21 | ECG_ITS ---
Measurements Intervals [place] Rate: 86 P: OR: 0 QRS: -36 QRSD: 114 T: 76 QT: 385 QTc: 461 Interpretive Statements ATRIAL FIBRILLATION LEFT AXIS DEVIATION [QRS AXIS < -30] MODERATE INTRAVENTRICULAR CONDUCTION DELAY [105+ ms QRS DURATION, 80+ ms Q/S IN V1/V2, NO Q AND 60+ ms R IN I/aVL/V5/V6] NONSPECIFIC T-WAVE ABNORMALITY COMPARED TO ECG 07/30/2021 10:31:02 NO SIGNIFICANT DIFFERENCES SEEN Electronically Signed On 09-04-2021 14:20:32 CDT by Wicho Topete M.D.
[2021-09-04] MEDS: DEXTROSE 50% 25 GM/50 ML SYRINGE IV PUSH ×3 (13:28→17:57)
[2021-09-04] MEDS: SODIUM POLYSTYRENE SULFONONATE 15 GM/60 ML BTL PO (13:35)
[2021-09-04] MEDS: SODIUM BICARBONATE 8.4% 50 MEQ/50 ML SYRINGE IV PUSH (13:37)
[2021-09-04] MEDS: CALCIUM GLUCONATE 1,000 MG/10 ML VIAL 1000 MG IV PUSH (13:42)
[2021-09-04] MEDS: INSULIN HUMAN REGULAR (*BKC) 100 UNITS/ML 10 UNITS IV PUSH (13:46)
--- NOTE | 2021-09-04 13:49 | ED.GENADULT ---
HPI - General Adult General Chief complaint: Altered Mental Status Stated complaint: AMS/weakness Time Seen by Provider: 09/04/21 12:18 History of Present Illness HPI narrative: Patient is a 71-year-old male who presents ER with acute alteration mental status. Patient was eating with family but did not really touch his food. Shortly thereafter he became acutely confused. At this time patient is alert and oriented x2. He has no complaints of pain. Chart review shows he has history of renal failure and nephrectomy. Related Data Home Medications Medication Instructions Recorded Confirmed albuterol sulfate 90 mcg/actuation 1 inh inhalation Q4H PRN SHORTNESS 04/23/20 07/30/21 aerosol inhaler (Ventolin HFA) OF BREATH alprazolam 1 mg tablet (Xanax) 1 mg PO DAILY 04/23/20 07/30/21 carisoprodol 350 mg tablet (Soma) 350 mg PO TID 04/23/20 07/30/21 citalopram 20 mg tablet (Celexa) 20 mg PO DAILY 04/23/20 07/30/21 ergocalciferol (vitamin D2) 1,250 1,250 mcg PO WEEKLY 04/23/20 07/30/21 mcg (50,000 unit) capsule fenofibrate 54 mg tablet 54 mg PO DAILY 04/23/20 07/30/21 glimepiride 2 mg tablet (Amaryl) 2 mg PO QAM 04/23/20 07/30/21 icosapent ethyl 1 gram capsule 2 g PO BID 04/23/20 07/30/21 (Vascepa) insulin degludec 100 unit/mL (3 10 unit subcut DAILY 04/23/20 07/30/21 mL) subcutaneous pen (Tresiba FlexTouch U-100 insulin) ipratropium bromide 17 2 puff inhalation QID 04/23/20 07/30/21 mcg/actuation HFA aerosol inhaler (Atrovent HFA) lisinopril 40 mg tablet 40 mg PO DAILY 04/23/20 07/30/21 metoprolol succinate 200 mg 200 mg PO DAILY 04/23/20 07/30/21 tablet,extended release 24 hr (Toprol XL) oxycodone-acetaminophen 10 mg-325 1 tablet PO Q6H PRN PAIN 4-10 04/23/20 07/30/21 mg tablet (Percocet) simvastatin 10 mg tablet (Zocor) 10 mg PO DAILY 04/23/20 07/30/21 calcifediol 30 mcg capsule,24 30 mcg PO DAILY 04/30/20 07/30/21 hr,extended release (Rayaldee) Allergies Allergy/AdvReac Type Severity Reaction Status Date / Time No Known Allergies Allergy Unknown Verified 09/04/21 12:22 Review of Systems Review of Systems: ROS unobtainable: Yes unobtainable due to mental status PMFSH Past Medical History Medical History (Updated 09/04/21 @ 16:52 by Lit Smith MD) Afib Back pain Cardiac defibrillator in place Hyperlipemia Hypertension Perinephric hematoma Surgical History Surgical History (Updated 04/23/20 @ 11:14 by Carla Pacheco) History of nephrectomy, right Family History Family History (Updated 04/23/20 @ 11:15 by Carla Pacheco) Sibling Brain cancer Father Diabetes mellitus Coronary artery disease Mother Alzheimer disease Social History Social History (Updated 04/30/20 @ 10:07 by Manuela Petty [facility]) Smoking packs per day: 0.5 Smoking cigarettes per day: 10.0 Years smoked: 50 Smoking pack-years: 25.00 Smoking status: Light tobacco smoker Tobacco type: cigarettes Second hand tobacco smoke exposure: Yes Alcohol intake: former Substance use: never Substance use type: does not use Spiritual care concerns: No Exam Narrative: GENERAL: Chronically ill-appearing, well-nourished, and in no acute distress. HEAD: Normocephalic, atraumatic. EYES: PERRL and EOMI. ENT: Mucous membranes moist. CHEST: Clear to auscultation. No respiratory distress. HEART: Regular rate and rhythm. Normal peripheral pulses. ABDOMEN: Soft, nontender, nondistended. EXTREMITIES: Normal range of motion. 1+ edema. Amputated right fifth digit. SKIN: Warm, dry, no rash. Changes from skin grafting to the extremities. NEURO: No slurred speech or facial droop. Normal strength in upper and lower extremities. Alert and oriented x2. PSYCH: Normal mood and affect. Course Course Emergency Course: Discussed case with hospitalist service who is excepted the patient. Also discussed with Dr. Edward with nephrology. He recommends just hydrating patient this time to see if it i
[2021-09-04 14:18] LABS: Glucose Point of Care 75 mg/dl (65-105)
[2021-09-04 14:51] LABS: Appearance Urine Clear (Clear); Bilirubin Urine Negative (Negative); Blood Urine Negative (Negative); Color Urine Yellow (Yellow); Glucose Urine UA Negative (Negative); Ketones Urine Negative (Negative); Leukocyte Esterase Ur Trace LEU/UL (Negative); Nitrate Urine Negative (Negative); Protein Urine 2+ mg/dL (Negative); Specific Grav Ur 1.015 (1.001-1.035); Urobilinogen Urine 0.2 mg/dL (<2.0); pH Urine 5.5 (5.0-9.0)
[2021-09-04 14:56] LABS: Add Urine Microscopic? YES; Mucus Urine Rare /lpf; RBC Urine 0-2 /hpf (0-2)
[2021-09-04 15:40] LABS: Glucose Point of Care 37 mg/dl (65-105)
[2021-09-04 15:54] LABS: Glucose Point of Care 143 mg/dl (65-105)
--- NOTE | 2021-09-04 16:00 | PM.IMHP ---
H&P: HPI History of Present Illness Date/Time: 09/04/21 16:00 Chief Complaint: Weakness and confusion. Narrative: This is a 71-year-old male smoker with history of kidney cancer status post partial right nephrectomy, atrial fibrillation, hypertension, hyperlipidemia, congestive heart failure, chronic kidney disease, and insulin-dependent type 2 diabetes mellitus who presented to the emergency department for evaluation of weakness and confusion. He cannot provide an accurate history due to underlying confusion and as such almost all of the following history is obtained via a review of his electronic medical records as well as discussions with his son who is at bedside. He was admitted to the hospitalist service on 07/30/2021 with pneumonia and acute on chronic kidney failure. Renal ultrasound at that time showed bilateral kidney masses suspicious for malignancy at which time the patient wished no further workup, reporting that he would follow up with his doctor at [facility]. The patient did not discuss these findings with his son, who knew nothing about that today. In any event, the patient has reportedly been complaining of mid to low back pain over the last couple of weeks for which he has been needing to take more pain medications and muscle relaxers that have not seem to help much. The last several days he seemed to be a bit confused and today he was found to be acutely confused by his daughter and he was brought in for evaluation. Workup today shows a BUN and creatinine of 100 and respectively. Potassium was 6.8 though has normalized with appropriate treatment. Hemoglobin has dropped nearly 4.5 g compared to labs drawn just about a month ago. I was called to admit the patient for acute on chronic kidney failure and metabolic encephalopathy stemming from the same. At the time my evaluation the patient did have left CVA tenderness and a subsequent CT of the abdomen and pelvis showed findings of a probable perinephric hematoma. It is noted that he was recently started on Eliquis for possible pulmonary embolism just last month (V/Q scan nondiagnostic with intermediate probability for PE and negative lower extremity venous Doppler ultrasounds). The patient does not think he has had any falls and there is no evidence to suggest a recent fall on exam today. Currently he has no complaints but he is somnolent and confused. Review of Systems Review of Systems: ROS unobtainable: Yes unobtainable due to mental status PMFSH Past Medical History Medical History (Updated 09/04/21 @ 19:28 by Rut Latham PA-C) Atrial fibrillation Cancer of kidney Status post partial right nephrectomy. Status post cryotherapy to the left kidney. Chronic back pain Chronic obstructive pulmonary disease Congestive heart failure Echocardiogram in April 2014 showed LV H with moderate global systolic function with an EF of 35% and moderate right ventricular dysfunction. Hyperlipemia Hypertension Insulin dependent type 2 diabetes mellitus Malignant melanoma of left forearm (2016) Third degree michael of multiple sites (2005) Tobacco dependence Surgical History Surgical History (Updated 09/04/21 @ 19:06 by Rut Latham PA-C) History of appendectomy History of lumbar surgery History of melanoma excision (10/26/16) Left forearm. History of partial nephrectomy Right, for kidney cancer. History of skin graft Presence of combination internal cardiac defibrillator (ICD) and pacemaker Family History Family History Sibling Brain cancer Father Diabetes mellitus Coronary artery disease Mother Alzheimer disease Social History Social History (Updated 09/04/21 @ 19:06 by Rut Latham PA-C) Social History: Surrogate decision maker: Omid Baker, son. Code status: Full code. Smoking packs per day: 1 Smoking cigarettes per day: 20.0 Years smoked: 50 Smoking pack-years:
[2021-09-04 16:26] LABS: Hematocrit 25.4 % (42.0-52.0); Hemoglobin 8.1 g/dL (14.0-18.0)
[2021-09-04 16:37] LABS: Anion Gap 10 mmol/L (8-16); Blood Urea Nitrogen 96 mg/dL (9-20); Calcium 7.7 mg/dL (8.4-10.2); Carbon Dioxide 21 mmol/L (22-30); Chloride 105 mmol/L (98-107); Estimated CRCL calculation 10 ml/min; Estimated Glomerular Filt Rate 7; Glucose 94 mg/dL (65-110); Sodium 136 mmol/L (137-145)
[2021-09-04 16:44] LABS: Magnesium 1.9 mg/dL (1.6-2.3); Phosphorus 8.7 mg/dL (2.5-4.5)
--- NOTE | 2021-09-04 16:48 | WPDURCON ---
Assessment and Plan Assessment and plan (1) Acute on chronic renal failure: Code(s): N17.9 - Acute kidney failure, unspecified; N18.9 - Chronic kidney disease, unspecified Status: Acute (2) Metabolic encephalopathy: Code(s): G93.41 - Metabolic encephalopathy Status: Acute (3) Perinephric hematoma: Code(s): S37.019A - Minor contusion of unspecified kidney, initial encounter Status: Acute Plan This is a 71-year-old gentleman with history of renal cell carcinoma status post partial nephrectomy and previous imaging showing complex renal cysts bilaterally. Recent anticoagulation who presents with acute mental status changes and renal insufficiency. CT scan imaging reveals complex left kidney with perinephric hematoma. An underlying left renal mass may be present -continue supportive care from primary service and Nephrology to manage metabolic encephalopathy and electrolyte abnormalities -plan repeat imaging to assess left perinephric hematoma and possibility of underlying mass the future, either later in this hospitalization or as outpatient based his clinical situation Urology Consult Note HPI Date Seen: 09/04/21 Requesting Physician: Constantine Bean MD Primary Care Provider: Morgan Mercado MD Consult Narrative Narrative: Lencho Baker is a 71 year old male with a history of chronic renal insufficiency. He has a history a right partial nephrectomy for RCC in 2012. He presented to the ER due to mental status changes by his family Review of Systems Review of Systems: Unable to take review of systems due to patient's mental status PMFSH Past Medical History Medical History (Updated 09/04/21 @ 16:52 by Lit Smith MD) Afib Back pain Cardiac defibrillator in place Hyperlipemia Hypertension Perinephric hematoma Surgical History Surgical History (Updated 04/23/20 @ 11:14 by Carla Pacheco) History of nephrectomy, right Family History Family History (Updated 04/23/20 @ 11:15 by Carla Pacheco) Sibling Brain cancer Father Diabetes mellitus Coronary artery disease Mother Alzheimer disease Social History Social History (Updated 04/30/20 @ 10:07 by Manulea Petty CMA) Smoking packs per day: 0.5 Smoking cigarettes per day: 10.0 Years smoked: 50 Smoking pack-years: 25.00 Smoking status: Light tobacco smoker Tobacco type: cigarettes Second hand tobacco smoke exposure: Yes Alcohol intake: former Substance use: never Substance use type: does not use Spiritual care concerns: No Meds Home Medications and Allergies Home Medications Medication Instructions Recorded Confirmed Type albuterol sulfate 90 mcg/actuation 1 inh inhalation Q4H PRN SHORTNESS 04/23/20 07/30/21 History aerosol inhaler (Ventolin HFA) OF BREATH alprazolam 1 mg tablet (Xanax) 1 mg PO DAILY 04/23/20 07/30/21 History carisoprodol 350 mg tablet (Soma) 350 mg PO TID 04/23/20 07/30/21 History citalopram 20 mg tablet (Celexa) 20 mg PO DAILY 04/23/20 07/30/21 History ergocalciferol (vitamin D2) 1,250 1,250 mcg PO WEEKLY 04/23/20 07/30/21 History mcg (50,000 unit) capsule fenofibrate 54 mg tablet 54 mg PO DAILY 04/23/20 07/30/21 History glimepiride 2 mg tablet (Amaryl) 2 mg PO QAM 04/23/20 07/30/21 History icosapent ethyl 1 gram capsule 2 g PO BID 04/23/20 07/30/21 History (Vascepa) insulin degludec 100 unit/mL (3 10 unit subcut DAILY 04/23/20 07/30/21 History mL) subcutaneous pen (Tresiba FlexTouch U-100 insulin) ipratropium bromide 17 2 puff inhalation QID 04/23/20 07/30/21 History mcg/actuation HFA aerosol inhaler (Atrovent HFA) lisinopril 40 mg tablet 40 mg PO DAILY 04/23/20 07/30/21 History metoprolol succinate 200 mg 200 mg PO DAILY 04/23/20 07/30/21 History tablet,extended release 24 hr (Toprol XL) oxycodone-acetaminophen 10 mg-325 1 tablet PO Q6H PRN PAIN 4-10 04/23/20 07/30/21 History mg tablet (Percocet) simvastatin
[2021-09-04 16:51] LABS: Glucose Point of Care 67 mg/dl (65-105)
[2021-09-04] MEDS: DEXTROSE 5%/LACTATED RINGERS 1,000 ML 100 ML IV CONT (17:04)
[2021-09-04 17:50] LABS: Glucose Point of Care 55 mg/dl (65-105)
[2021-09-04 18:32] LABS: Glucose Point of Care 108 mg/dl (65-105)
--- NOTE | 2021-09-04 20:00 | PC.NURSE ---
This patient, Lencho Baker, was admitted to IMU Room 202-. Patient/family oriented to hospital policies and general routines including ID bracelet, bed and alarms, visiting hours, pain management, procedures, bathroom and other care routines, personal items, smoking policy, room service/diet, and visiting hours. Patient/Family are encouraged to report perceived risks to care and to ask questions if they do not understand what they are told or what they should do.
[2021-09-04 20:01] LABS: Creatine Kinase 62 U/L (55-170)
[2021-09-04] MEDS: CITALOPRAM HYDROBROMIDE 20 MG TABLET PO (20:48)
[2021-09-04] MEDS: DEXTROSE 10% 1,000 ML 50 ML IV CONT (20:48)
[2021-09-04 21:10] LABS: Alveolar/Arterial O2 Gradient 67.1 mmHg; Base Excess ABG -6.6 mEq/l (+/-2.0); Carboxyhemoglobin 0.5 % THb (0-2.0); Fractional Inspired Oxygen 28 %; HCO3 ABG 19.4 mEq/l (22.0-26.0); Methemoglobin ABG 0.2 %THb (0-1.5); Oxygen Content ABG 14.7 %vol (16.0-22.0); Oxygen Saturation ABG 95.5 % (95.0-100.0); Oxyhemoglobin 94.4 % THb (90.0-100.0); PCO2 ABG 40.3 mmHg (35.0-45.0); PO2 FiO2 Ratio Arterial Blood 3.04 %; Reduced Hemoglobin 4.9 %THb (0-5.0)
[2021-09-04 21:17] LABS: Glucose Point of Care 106 mg/dl (65-105)
[2021-09-04 21:24] LABS: Site Drawn LEFT RADIAL
[2021-09-04 21:25] LABS: Device NASAL CANNULA; Modified Allen's Test Pass
[2021-09-04 22:33] LABS: Hematocrit 26.2 % (42.0-52.0); Hemoglobin 8.2 g/dL (14.0-18.0)
[2021-09-04 22:55] LABS: Glucose Point of Care 147 mg/dl (65-105)
[2021-09-05] VITALS (16 sets, daily range): BP systolic 94–155; BP diastolic 68–95; PULSE 73–95; RESP 16–22; TEMP 36.3–37.1; O2SAT 94–100
[2021-09-05 04:13] LABS: Glucose Point of Care 135 mg/dl (65-105)
[2021-09-05 05:50] LABS: Basophils Percent Auto 0.3 % (0.2-1.2); Eosinophils Absolute Auto 0.1 K/mm3 (0-0.3); Eosinophils Percent Auto 1.4 % (0-4.4); Hemoglobin 7.8 g/dL (14.0-18.0); Immature Granulocyte Absolute 0.05 K/mm3 (0.00-0.031); Immature Granulocyte Percent A 0.6 % (0-0.5); Lymphocytes Absolute Auto 0.92 K/mm3 (0.9-3.2); Lymphocytes Percent Auto 10.4 % (18.3-44.2); Mean Corpuscular HGB Conc 31.2 g/dl (32-36); Mean Corpuscular Hemoglobin 29.8 pg (26-34); Mean Corpuscular Volume 95.4 fl (80-100); Mean Platelet Volume 9.6 fl (7.4-10.4); Monocytes Absolute Auto 0.6 K/mm3 (0.1-0.6); Monocytes Percent Auto 6.7 % (2.6-8.5); Neutrophils Absolute Auto 7.1 K/mm3 (1.3-6.7); Neutrophils Percent Auto 80.6 % (45.5-73.1); Platelet Count Result 198 k/mm3 (150-375); Red Blood Count 2.62 M/mm3 (4.6-6.20); Red Cell Distribution Width 13.6 % (11.5-14.5); White Blood Count 8.8 K/mm3 (4.5-10.0)
[2021-09-05 06:00] LABS: Alanine Aminotransferase 21 U/L (6-50); Albumin Level 3.3 g/dL (3.5-5.1); Alkaline Phosphatase 151 U/L (38-126); Anion Gap 13 mmol/L (8-16); Aspartate Amino Transferase 23 U/L (17-59); Bilirubin,Total 0.4 mg/dL (0.2-1.3); Blood Urea Nitrogen 97 mg/dL (9-20); Calcium 7.6 mg/dL (8.4-10.2); Carbon Dioxide 19 mmol/L (22-30); Chloride 104 mmol/L (98-107); Estimated CRCL calculation 10 ml/min; Estimated Glomerular Filt Rate 7; Glucose 124 mg/dL (65-110); Magnesium 1.9 mg/dL (1.6-2.3); Potassium 4.7 mmol/L (3.4-5.0); Sodium 136 mmol/L (137-145)
[2021-09-05 06:07] LABS: Hemoglobin A1C 6.4 % (<5.7)
[2021-09-05 06:56] LABS: Thyroid Stimulating Hormone Reflex 0.154 uIU/mL (0.465-4.68)
[2021-09-05 07:29] LABS: Free T4 Free Thyroxine Reflex 1.18 ng/dL (0.78-2.19)
[2021-09-05 07:54] LABS: Glucose Point of Care 83 mg/dl (65-105)
--- NOTE | 2021-09-05 10:51 | PM.CNNEP ---
Assessment and Plan Additional Plan 1. The patient has chronic kidney disease. His baseline creatinine seems to be in the high 2s. This is most likely due to hypertension and diabetes. He did have a partial nephrectomy on the right which may have affected his GFR as well. The patient probably has vascular disease. And with all the cysts and masses in his kidneys that may have affected his kidney function to a slight degree. He sees Dr. Ferreira at [facility] for his chronic nephrologic care. 2. He has acute kidney injury. This may be due to dehydration. His creatinine is substantially higher than his baseline but it is improving with fluids. On the CT scan it does not look like he has obstructive component to his acute kidney injury. Because of the perinephric hematoma, blood absorption might be O current which could make the BUN higher but it shouldn't make the creatinine higher. Others issues such as rhabdomyolysis, interstitial nephritis, and glomerulonephritis are less likely in this clinical scenario . Will check urine electrolytes . His CPK is normal.. Continue IV fluids. 3. The patient has anemia. Will check iron levels And reticulocyte count. Consider EPO if the latter is low. 4. His CO2 is low. Will give him sodium bicarbonate. 5. Renal masses. Urology saw the patient. Will follow up as an outpatient with them. 6. Diabetes. On meds per hospitalist 7. hypertension blood pressure doing well between 105 and 150. It might rise with hydration in which case will fold in more blood pressure meds if needed. 8. MIGUEL check a phosphorus in the morning History of Present Illness Reason for Consult Consult date: 09/05/21 Chief Complaint Chief complaint: Hyperkalemia/acute on chronic renal failure/metabo History of Present Illness Narrative: Lencho is a very pleasant 71-year-old gentleman who has multiple medical problems including history of kidney cancer status post partial right nephrectomy, current cysts and masses in his kidneys J(this part is vague, but he says that he was told by Dr. Bermudez to see Dr Heredia), diabetes, hypertension, hyperlipidemia, congestive heart failure. He sees Dr. Ferreira at [facility] for chronic nephrology care. His baseline creatinine seemed to run between 2 and 3 and 2017 and then he was in hospital in July with dehydration and pneumonia. he had a creatinine of 4.2 on admission and then with fluid to dropped to 2.8 which was close to his baseline in 2018. he was also found to have renal masses. He did not want further workup for these. He was discharged To follow-up with his gold leaf gilder. The patient is a bit vague as far as why he came in. He does not remember everything. He knows that he has not been feeling very well over the last Four or 5 days. He has not been eating or drinking very well. his son was concerned about him a couple of days ago but he did want to go to the hospital. Yesterday the patient was found very confused by his daughter so came to the ER. In the ER he was evaluated. He is found to be confused. He looked dehydrated on exam. His creatinine was above 8 and his BUN was above 100 and his potassium was 6.8. He was given IV fluids and medicines for the potassium. The potassium is better and the BUN and creatinine have improved with the fluids. It was noted that his hemoglobin had dropped from 12-8. On CT of the abdomen he had a perinephric hematoma. The patient does have chronic atrial fibrillation but also had a possible pulmonary embolism ( Intermediate V/Q scan ) and so he was started on Eliquis. today the patient feels better. He just wants to go home. He says he is hungry. He is not having any chest pain or shortness of breath. Review of Systems Constitutional: Constitutional: Reports no additional constitutional complaints Eyes: Eyes: Reports no additional eye complaints ENT: Reports system reviewed an
[2021-09-05] MEDS: METOPROLOL SUCCINATE EXT REL 100 MG TABCR 200 MG PO (11:26)
[2021-09-05] MEDS: HYDROcodone/acetaminophen (*CRX) 5-325 MG TABLET 1 TAB PO (11:27)
[2021-09-05] MEDS: DOXAZOSIN MESYLATE 4 MG TABLET PO (11:27)
[2021-09-05] MEDS: calcitrioL 0.25 MCG CAPSULE PO (11:27)
--- NOTE | 2021-09-05 11:51 | PM.IMPN ---
Progress Note: A&P Assessment and Plan (1) Metabolic encephalopathy: Code(s): G93.41 - Metabolic encephalopathy Status: Acute Assessment and Plan: Secondary to worsening renal function with significant uremia and electrolyte abnormalities. Brain CT without acute abnormalities. With appropriate treatment, mental status has improved. Continue to monitor. (2) Acute on chronic kidney failure: Code(s): N17.9 - Acute kidney failure, unspecified; N18.9 - Chronic kidney disease, unspecified Status: Acute Assessment and Plan: Creatinine improved to 2.8 last admission which was about a month ago. Creatinine on admission here was 8.4. Precipitating etiology is not entirely clear. CT of the abdomen and pelvis showed bilateral renal masses with a left perinephric hematoma but no hydronephrosis. He does take lisinopril and lasix daily at home. Quinn catheter was inserted and yielded approximately 300 cc of light yellow urine. Cr better. Continue IV hydration. Monitor fluid volume status given history of systolic dysfunction. Avoid nephrotoxic agents. Hold lisinopril and lasix. Nephrology consulted and appreciate their input. (3) Perinephric hematoma: Code(s): S37.019A - Minor contusion of unspecified kidney, initial encounter Status: Acute Assessment and Plan: Patient was started on apixaban about a month ago for possible pulmonary embolism. V/Q scan at that time was nondiagnostic/intermediate probability for PE and lower extremity venous Doppler ultrasounds were negative for DVT. Apixaban being held. His hemoglobin is 4.5 g lower than what was just 1 month ago but stable. Continue to monitor H&H closely. Urology consulted and appreciate their input. (4) Hyperkalemia: Code(s): E87.5 - Hyperkalemia Status: Acute Assessment and Plan: Secondary to worsening renal function. Potassium has normalized with appropriate treatment. Follow (5) Anticoagulated: Code(s): Z79.01 - terminal system operator (current) use of anticoagulants Status: Acute Assessment and Plan: As above, apixaban is currently on hold. Was on Warfarin on admission in July with INR 1.9. He had a VQ nondiagnostic/intermediate probability for PE. He was discharged home on Eliquis 5mg BID instead of Warfarin because it was felt that he failed therapy. He was not loaded on Eliquis. Repeat lower extremity venous Doppler ultrasounds are negative again. Doubt PE. (6) Acute on chronic anemia: Code(s): D64.9 - Anemia, unspecified Status: Acute Assessment and Plan: In part due to acute blood loss from perinephric hematoma. Suspect also with chronic anemia from his CKD. Trend hemoglobin hematocrit and transfuse if indicated. (7) History of kidney cancer: Code(s): Z85.528 - Personal history of other malignant neoplasm of kidney Status: Acute Assessment and Plan: Status post partial right nephrectomy and cryotherapy of the left kidney. Imaging concerning for possible recurrent. Per urology (8) Insulin dependent type 2 diabetes mellitus: Code(s): E11.9 - Type 2 diabetes mellitus without complications; Z79.4 - halfway (current) use of insulin Status: Acute Assessment and Plan: A1c 6.4. Holding diabetic medications due to hypoglycemia. Monitor on sliding scale insulin, Accu-Cheks, and hypoglycemic protocol. (9) Pulmonary infiltrate: Code(s): R91.8 - Other nonspecific abnormal finding of lung field Status: Acute Assessment and Plan: Probably resolving pneumonia from last month. Sent home on Doxycycline. No evidence to suggest acute infection at this time. (10) Atrial fibrillation: Code(s): I48.91 - Unspecified atrial fibrillation Status: Acute Assessment and Plan: Rate controlled on metoprolol. Apixaban currently on hold as above. (11) Congestive heart failure: Code(s): I50.9 - Heart fail
[2021-09-05 12:07] LABS: Glucose Point of Care 79 mg/dl (65-105)
[2021-09-05 12:55] LABS: Hematocrit 25.1 % (42.0-52.0)
[2021-09-05] MEDS: MORPHINE SULFATE (*CRX) 4 MG/ML INJ IV PUSH (15:28)
[2021-09-05] MEDS: DEXTROSE 10% 1,000 ML 50 ML IV CONT (15:33)
[2021-09-05 16:19] LABS: Creatinine Urine 85.5 mg/dL; Total Protein Urine Random 88 mg/dL; Ur Ttl Prot Creatinine Ratio 1.03 mg/mg (0-0.20)
[2021-09-05 17:10] LABS: Sodium Urine Random 46 meq/L
[2021-09-05 17:16] LABS: Glucose Point of Care 147 mg/dl (65-105)
[2021-09-05] MEDS: SODIUM BICARBONATE TAB 650 MG TABLET 1300 MG PO (18:01)
--- NOTE | 2021-09-05 19:42 | ECHO_ITS ---
Patient Info Name: Lencho Baker Age: 71 years : 1950 Gender: Male Ht: 72 in Wt: 227 lbs BSA: 2.31 m2 HR: 88 bpm BP: 137 / 68 mmHg Heart Rhythm: Atrial Fibrillation Technical Quality: Good Exam Date: 09/05/2021 11:16 AM Exam Location: [facility] Patient Status: Inpatient Admit Date: 09/04/2021 Staff Ordering Physician: Rut Latham PA-C Production Support Developer: Jo Owens RDCS Attending Provider: Joey Bean MD Referring Physician: Yeison WOODS; Exam Type: CA echo doppler color flow Study Info Complete two-dimensional, color flow and Doppler transthoracic echocardiogram is performed. Summary 1. Complete two-dimensional, color flow and Doppler transthoracic echocardiogram is performed. 2. Left ventricular chamber dimension is mildly enlarged. 3. Left ventricular systolic function is mildly reduced, estimated at 45-50%. 4. There is mildly increased left ventricular wall thickness. 5. The left ventricular diastolic function is indeterminate. 6. Left atrial chamber dimension is severely enlarged. 7. Right atrial chamber dimension is mildly enlarged. 8. There is mild aortic valve regurgitation. 9. There is mild mitral valve regurgitation. 10. There is mild tricuspid valve regurgitation. 11. There is mild pulmonic regurgitation. 12. There is small pericardial effusion. Left Ventricle Left ventricular chamber dimension is mildly enlarged. Left ventricular systolic function is mildly reduced, estimated at 45-50%. There is mildly increased left ventricular wall thickness. The left ventricular diastolic function is indeterminate. Right Ventricle Right ventricular chamber dimension is normal. Right ventricular systolic function is normal. Left Atria Left atrial chamber dimension is severely enlarged. Right Atria Right atrial chamber dimension is mildly enlarged. Atrial Septum Intact interatrial septum visualized by color flow imaging. Aortic Valve The aortic valve is trileaflet. There is mild aortic valve sclerosis. There is no aortic valve stenosis. There is mild aortic valve regurgitation. Pulmonic Valve The pulmonic valve is normal. There is no pulmonic valve stenosis. There is mild pulmonic regurgitation. Mitral Valve The mitral valve has normal leaflets. There is no mitral valve stenosis. There is mild mitral valve regurgitation. Tricuspid Valve The tricuspid valve leaflets are normal. There is no significant tricuspid valve stenosis. There is mild tricuspid valve regurgitation. No pulmonary hypertension, estimated pulmonary arterial systolic pressure is 33 mmHg. Pericardium/Pleural The pericardium appears normal. There is small pericardial effusion. Inferior Vena Cava Normal inferior vena cava with >50% collapse upon inspiration consistent with normal right atrial pressure, 8 mmHg. Aorta The aortic root size at the sinus of Valsalva is normal. Left Ventricular Outflow Tract Name Value Normal LVOT 2D LVOT Diameter 2.5 cm LVOT Doppler LVOT Peak Gradient 3 mmHg LVOT Mean Gradient
[2021-09-05 20:56] LABS: Glucose Point of Care 114 mg/dl (65-105)
[2021-09-05] MEDS: CITALOPRAM HYDROBROMIDE 20 MG TABLET PO (21:31)
[2021-09-06] VITALS (14 sets, daily range): BP systolic 115–175; BP diastolic 62–75; PULSE 62–95; RESP 16–22; TEMP 36.3–37.1; O2SAT 94–98
[2021-09-06 05:18] LABS: Basophils Percent Auto 0.4 % (0.2-1.2); Eosinophils Absolute Auto 0.1 K/mm3 (0-0.3); Eosinophils Percent Auto 1.4 % (0-4.4); Hematocrit 25.2 % (42.0-52.0); Hemoglobin 8.2 g/dL (14.0-18.0); Immature Granulocyte Absolute 0.05 K/mm3 (0.00-0.031); Immature Granulocyte Percent A 0.6 % (0-0.5); Lymphocytes Percent Auto 10.2 % (18.3-44.2); Mean Corpuscular HGB Conc 32.5 g/dl (32-36); Mean Corpuscular Hemoglobin 30.3 pg (26-34); Mean Platelet Volume 9.4 fl (7.4-10.4); Monocytes Absolute Auto 0.6 K/mm3 (0.1-0.6); Neutrophils Absolute Auto 6.3 K/mm3 (1.3-6.7); Neutrophils Percent Auto 80.4 % (45.5-73.1); Platelet Count Result 197 k/mm3 (150-375); Red Blood Count 2.71 M/mm3 (4.6-6.20); Red Cell Distribution Width 13.6 % (11.5-14.5); White Blood Count 7.9 K/mm3 (4.5-10.0)
[2021-09-06 05:28] LABS: INR 1.3; Prothrombin Time 15.8 Seconds (11.1-14.7)
[2021-09-06 05:33] LABS: Alanine Aminotransferase 21 U/L (6-50); Albumin Level 3.3 g/dL (3.5-5.1); Alkaline Phosphatase 143 U/L (38-126); Anion Gap 8 mmol/L (8-16); Aspartate Amino Transferase 23 U/L (17-59); Bilirubin,Total 0.5 mg/dL (0.2-1.3); Blood Urea Nitrogen 87 mg/dL (9-20); Calcium 7.4 mg/dL (8.4-10.2); Carbon Dioxide 19 mmol/L (22-30); Chloride 105 mmol/L (98-107); Estimated CRCL calculation 12 ml/min; Estimated Glomerular Filt Rate 8; Glucose 110 mg/dL (65-110); Magnesium 1.7 mg/dL (1.6-2.3); Sodium 132 mmol/L (137-145)
[2021-09-06 08:02] LABS: Glucose Point of Care 130 mg/dl (65-105)
[2021-09-06] MEDS: SODIUM CHLORIDE 0.9% IV 1,000 ML 100 ML IV CONT (09:07)
[2021-09-06] MEDS: DEXTROSE 10% 1,000 ML 50 ML IV CONT (09:07)
[2021-09-06] MEDS: DOXAZOSIN MESYLATE 4 MG TABLET PO (09:07)
[2021-09-06] MEDS: calcitrioL 0.25 MCG CAPSULE PO (09:07)
[2021-09-06] MEDS: METOPROLOL SUCCINATE EXT REL 100 MG TABCR 200 MG PO (09:08)
[2021-09-06] MEDS: SODIUM BICARBONATE TAB 650 MG TABLET 1300 MG PO ×2 (09:09→18:38)
--- NOTE | 2021-09-06 10:15 | PM.PNNEP ---
Progress Note: A&P Additional Plan 1. The patient has chronic kidney disease. His baseline creatinine seems to be in the high 2s. This is likely due to diabetes, hypertension, nephrectomy, and vascular disease. He sees Dr. Ferreira at [facility] for his chronic nephrologic care. 2. He has acute kidney injury. This may be due to dehydration. His creatinine seems to be improving with IV fluids. He is still not eating very well so will continue IV fluids for another day. On the CT scan it does not look like he has obstructive component to his acute kidney injury. CPK is normal Urinalysis is bland. Urine electrolytes are non pre renal Continue IV fluids for another day and reassess tomorrow. 3. The patient has anemia. Will check iron levels, reticulocyte count, and vitamin B12 and folate. 4. His CO2 is low. He is on sodium bicarbonate. 5. Renal masses. Urology saw the patient. Will follow up as an outpatient with them. 6. Diabetes. On meds per hospitalist 7. hypertension blood pressure doing well between 105 and 150. It might rise with hydration in which case will fold in more blood pressure meds if needed. 8. MIGUEL phosphorus is 7. Will start sevelamer Subjective Date/time seen: 09/06/21 10:15 Interval history: Lencho is feeling better. He is eager to go home (but not ready) He ate about half is breakfast. He has a mildly upset stomach He is not short of breath or swollen Review of Systems Cardiovascular: Cardiovascular: Reports no additional cardiovascular complaints Respiratory: Respiratory: Reports no additional respiratory complaints Gastrointestinal: Gastrointestinal: Reports no additional gastrointestinal complaints Genitourinary: Genitourinary: Reports no additional male genitourinary complaints Exam Narrative: WDWN in NAD skin no rash head ncat lungs clear cor reg no rub abd BS+ nontender and soft ext no edema. Objective Data Vital Signs Vital Signs: Vital Signs - 24 hr 09/05/21 11:26 09/05/21 12:00 09/05/21 12:00 Temperature 36.5 C Pulse Rate 90 92 91 Respiratory Rate 20 Blood Pressure 155/70 H Pulse Oximetry 100 Oxygen Delivery Oxygen Flow Rate 09/05/21 14:00 09/05/21 15:36 09/05/21 12:00 Temperature Pulse Rate 89 Respiratory Rate Blood Pressure Pulse Oximetry 97 Oxygen Delivery Nasal Cannula Room Air Oxygen Flow Rate 2 09/05/21 16:00 09/05/21 16:00 09/05/21 16:00 Temperature 37.1 C Pulse Rate 77 87 Respiratory Rate 16 Blood Pressure 94/76 L Pulse Oximetry 96 Oxygen Delivery Room Air Oxygen Flow Rate 09/05/21 18:00 09/05/21 20:14 09/05/21 20:00 Temperature 37.1 C Pulse Rate 79 78 Respiratory Rate 20 Blood Pressure 144/95 H Pulse Oximetry 98 98 Oxygen Delivery Room Air Oxygen Flow Rate 09/05/21 20:00 09/05/21 23:36 09/06/21 00:00 Temperature 36.4 C Pulse Rate 88 Respiratory Rate 22 H Blood Pressure 152/75 H Pulse Oximetry 98 Oxygen Delivery Room Air Room Air Oxygen Flow Rate 09/05/21 20:00 09/05/21 22:00 09/06/21 00:00 Temperature Pulse Rate 73 79 73 Respiratory Rate Blood Pressure Pulse Oximetry Oxygen Delivery Oxygen Flow Rate 09/06/21 02:00 09/06/21 04:00 09/06/21 04:00 Temperature 36.3 C L Pulse Rate 74 73 Respiratory Rate 22 H Blood Pressure 144/65 H Pulse Oximetry 98 Oxygen Delivery Room Air Oxygen Flow Rate 09/06/21 04:00 09/06/21 06:00 09/06/21 08:00 Temperature 36.6 C Pulse Rate 70 75 91 Respiratory Rate 16 Blood Pressure 149/70 H Pulse Oximetry 97 Oxygen Delivery Oxygen Flow Rate 09/06/21 09:08 09/06/21 09:10 Temperature Pulse Rate 95 Respiratory Rate Blood Pressure Pulse Oximetry Oxygen Delivery Room Air Oxygen Flow Rate Intake/Output Intake/Output: Intake & Output 09/03/21 09/04/21 09/05/21 09/06/21 23:59 23:59 23:59 23:59 Intake
[2021-09-06] MEDS: ALPRAZolam (*CRX) 0.5 MG TABLET PO ×2 (10:43→21:25)
[2021-09-06 10:49] LABS: Iron 41 ug/dL (49-181)
--- NOTE | 2021-09-06 10:54 | WPDUROPN2 ---
Progress Note: A&P Assessment and Plan (1) Perinephric hematoma: Code(s): S37.019A - Minor contusion of unspecified kidney, initial encounter Status: Acute Assessment and Plan: Has been hemodynamically stable. Continue to follow H&H. Has a complicated history with prior partial nephrectomy and then question of some sort of cryoablation of other kidney. He does not recall the name of the urologist that have taking care of him in the past. Will require reimaging of his kidneys in a proximally 4-6 weeks. He will need to follow-up with prior urologist if he recalls otherwise would set him up to meet with Dr. Drake or Dr Birmingham (2) Acute on chronic kidney failure: Code(s): N17.9 - Acute kidney failure, unspecified; N18.9 - Chronic kidney disease, unspecified Status: Acute Assessment and Plan: Would continue with Quinn catheter at this time is his creatinine level is still elevated 6.7. Once that stabilizes at a lower level can have a voiding trial with postvoid residual checks Subjective Subjective Date/Time Seen: 09/06/21 10:54 Principal diagnosis: Left perinephric hematoma with renal insufficiency Interval history: Patient states that he is feeling better and wants to go home. Review of Systems Review of Systems: All systems reviewed & are unremarkable except as noted in HPI and below Exam Const: General: cooperative Resp: Effort & Inspection: normal respiratory effort Cardio: Rate: regular rate Rhythm: regular rhythm Urinary Catheter: Urinary Catheter: patent and draining and urine clear Objective Data Vital Signs Vital Signs: Vital Signs - 24 hr 09/05/21 11:26 09/05/21 12:00 09/05/21 12:00 Temperature 36.5 C Pulse Rate 90 92 91 Respiratory Rate 20 Blood Pressure 155/70 H Pulse Oximetry 100 Oxygen Delivery Oxygen Flow Rate 09/05/21 14:00 09/05/21 15:36 09/05/21 12:00 Temperature Pulse Rate 89 Respiratory Rate Blood Pressure Pulse Oximetry 97 Oxygen Delivery Nasal Cannula Room Air Oxygen Flow Rate 2 09/05/21 16:00 09/05/21 16:00 09/05/21 16:00 Temperature 37.1 C Pulse Rate 77 87 Respiratory Rate 16 Blood Pressure 94/76 L Pulse Oximetry 96 Oxygen Delivery Room Air Oxygen Flow Rate 09/05/21 18:00 09/05/21 20:14 09/05/21 20:00 Temperature 37.1 C Pulse Rate 79 78 Respiratory Rate 20 Blood Pressure 144/95 H Pulse Oximetry 98 98 Oxygen Delivery Room Air Oxygen Flow Rate 09/05/21 20:00 09/05/21 23:36 09/06/21 00:00 Temperature 36.4 C Pulse Rate 88 Respiratory Rate 22 H Blood Pressure 152/75 H Pulse Oximetry 98 Oxygen Delivery Room Air Room Air Oxygen Flow Rate 09/05/21 20:00 09/05/21 22:00 09/06/21 00:00 Temperature Pulse Rate 73 79 73 Respiratory Rate Blood Pressure Pulse Oximetry Oxygen Delivery Oxygen Flow Rate 09/06/21 02:00 09/06/21 04:00 09/06/21 04:00 Temperature 36.3 C L Pulse Rate 74 73 Respiratory Rate 22 H Blood Pressure 144/65 H Pulse Oximetry 98 Oxygen Delivery Room Air Oxygen Flow Rate 09/06/21 04:00 09/06/21 06:00 09/06/21 08:00 Temperature 36.6 C Pulse Rate 70 75 91 Respiratory Rate 16 Blood Pressure 149/70 H Pulse Oximetry 97 Oxygen Delivery Oxygen Flow Rate 09/06/21 09:08 09/06/21 09:10 Temperature Pulse Rate 95 Respiratory Rate Blood Pressure Pulse Oximetry Oxygen Delivery Room Air Oxygen Flow Rate Intake/Output Intake/Output: Intake & Output 09/03/21 09/04/21 09/05/21 09/06/21 23:59 23:59 23:59 23:59 Intake Total 1000 1480 1207 Output Total 2950 500 Balance 1000 -1470 707 Meds/Results Medications: Active Medications Generic Name Dose Route Start Last Admin Trade Name Freq PRN Reason Stop Dose Admin Acetaminophen 650 mg 09/04/21 14:01 Acetaminophen 325 Mg Tablet PO Q4H PRN Mild Pain (1-3) or Fever Hydroc
[2021-09-06 10:58] LABS: Percent Iron Saturation 24 % (20-50)
[2021-09-06 11:02] LABS: Immature Reticulocyte Fraction 27.6 % (3.0-15.9); Reticulocyte Percent 1.94 % (0.7-4.3); Reticulocytes Absolute 0.05 B/L (32.2-175.7)
[2021-09-06 11:56] LABS: Folic Acid 5.2 ng/mL (2.76->20)
[2021-09-06 12:19] LABS: Glucose Point of Care 262 mg/dl (65-105)
[2021-09-06 12:19] LABS: Glucose Point of Care 242 mg/dl (65-105)
[2021-09-06] MEDS: INSULIN ASPART (*BKC) 100 UNITS/ML SUB-Q (12:39)
[2021-09-06] MEDS: SEVELAMER CARBONATE 800 MG TABLET PO ×2 (12:40→18:38)
--- NOTE | 2021-09-06 13:28 | PM.IMPN ---
Progress Note: A&P Assessment and Plan (1) Metabolic encephalopathy: Code(s): G93.41 - Metabolic encephalopathy Status: Acute Assessment and Plan: Secondary to worsening renal function with significant uremia and electrolyte abnormalities. Brain CT without acute abnormalities. With appropriate treatment, mental status has improved. Continue to monitor. (2) Acute on chronic kidney failure: Code(s): N17.9 - Acute kidney failure, unspecified; N18.9 - Chronic kidney disease, unspecified Status: Acute Assessment and Plan: Creatinine improved to 2.8 last admission which was about a month ago. Creatinine on admission here was 8.4. Precipitating etiology is not entirely clear but probably related to acute blood loss and drop in Hgb and related to his medications. CT of the abdomen and pelvis showed bilateral renal masses with a left perinephric hematoma but no hydronephrosis. He does take lisinopril and Lasix daily at home. Quinn catheter was inserted and yielded approximately 300mL of light yellow urine. Cr better. UOP 2.9L yesterday. Continue IV hydration. Monitor fluid volume status given history of systolic dysfunction. Avoid nephrotoxic agents. Hold lisinopril and lasix. Nephrology consulted and appreciate their input. Begin to wean off Dextrose and and normal saline. (3) Perinephric hematoma: Code(s): S37.019A - Minor contusion of unspecified kidney, initial encounter Status: Acute Assessment and Plan: Patient was on Coumadin but changed to apixaban about a month ago for possible pulmonary embolism. V/Q scan at that time was nondiagnostic/intermediate probability for PE and lower extremity venous Doppler ultrasounds were negative for DVT. Apixaban being held. His hemoglobin is 4.5 g lower than what was just 1 month ago but stable in the 8 range. Continue to monitor H&H closely. Urology consulted and appreciate their input. (4) Hyperkalemia: Code(s): E87.5 - Hyperkalemia Status: Acute Assessment and Plan: Secondary to worsening renal function. Potassium has normalized with appropriate treatment. Potassium 5 now. Will follow (5) Anticoagulated: Code(s): Z79.01 - intermediate (current) use of anticoagulants Status: Acute Assessment and Plan: As above, apixaban is currently on hold. Was on Warfarin on admission in July with INR 1.9. He had a VQ nondiagnostic/intermediate probability for PE. He was discharged home on Eliquis 5mg BID instead of Warfarin because it was felt that he failed therapy. He was not loaded on Eliquis. Repeat lower extremity venous Doppler ultrasounds are negative here. Monitor off anticoagulation. (6) Acute on chronic anemia: Code(s): D64.9 - Anemia, unspecified Status: Acute Assessment and Plan: In part due to acute blood loss from perinephric hematoma. Suspect also with chronic anemia from his CKD. Hgb low but stable in the 8 range. Trend hemoglobin hematocrit and transfuse if indicated. (7) History of kidney cancer: Code(s): Z85.528 - Personal history of other malignant neoplasm of kidney Status: Acute Assessment and Plan: Status post partial right nephrectomy and cryotherapy of the left kidney. Imaging concerning for possible recurrent. 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 Holding diabetic medications due to hypoglycemia. Monitor on sliding scale insulin, Accu-Cheks, and hypoglycemic protocol. Wean off dextrose. (9) Pulmonary infiltrate: Code(s): R91.8 - Other nonspecific abnormal finding of lung field Status: Acute Assessment and Plan: Probably resolving pneumonia from last month. Sent home on Doxycycline. No evidence to suggest acute infection at this time
[2021-09-06 15:09] LABS: Potassium 4.9 mmol/L (3.4-5.0)
[2021-09-06 17:01] LABS: Glucose Point of Care 113 mg/dl (65-105)
[2021-09-06 20:06] LABS: Glucose Point of Care 83 mg/dl (65-105)
--- NOTE | 2021-09-06 20:09 | PC.NURSE ---
Report given to CHANDRAKANT Mathis with 2nd med at 2008. Patient to go to room 252.
[2021-09-06] MEDS: CITALOPRAM HYDROBROMIDE 20 MG TABLET PO (20:36)
[2021-09-06] MEDS: SODIUM CHLORIDE 0.9% IV 1,000 ML 70 ML IV CONT (20:40)
[2021-09-07 04:22] VITALS: BP 165/77; PULSE 80; RESP 20; TEMP 36.6; O2SAT 97
[2021-09-07 05:47] LABS: Hemoglobin 7.9 g/dL (14.0-18.0); Mean Corpuscular HGB Conc 32.9 g/dl (32-36); Mean Corpuscular Hemoglobin 30.3 pg (26-34); Mean Platelet Volume 9.2 fl (7.4-10.4); Platelet Count Result 208 k/mm3 (150-375); Red Blood Count 2.61 M/mm3 (4.6-6.20); Red Cell Distribution Width 13.4 % (11.5-14.5); White Blood Count 6.8 K/mm3 (4.5-10.0)
[2021-09-07 06:02] LABS: Albumin Level 3.2 g/dL (3.5-5.1); Anion Gap 9 mmol/L (8-16); Blood Urea Nitrogen 82 mg/dL (9-20); Calcium 7.7 mg/dL (8.4-10.2); Carbon Dioxide 20 mmol/L (22-30); Chloride 107 mmol/L (98-107); Estimated CRCL calculation 14 ml/min; Estimated Glomerular Filt Rate 10; Glucose 93 mg/dL (65-110); Phosphorus 5.9 mg/dL (2.5-4.5); Potassium 5.1 mmol/L (3.4-5.0); Sodium 136 mmol/L (137-145)
[2021-09-07 08:05] LABS: Glucose Point of Care 106 mg/dl (65-105)
[2021-09-07] MEDS: SEVELAMER CARBONATE 800 MG TABLET PO ×3 (08:20→16:53)
[2021-09-07] MEDS: SODIUM BICARBONATE TAB 650 MG TABLET 1300 MG PO ×2 (08:20→16:53)
[2021-09-07] MEDS: calcitrioL 0.25 MCG CAPSULE PO (08:20)
[2021-09-07 08:21] VITALS: PULSE 80
[2021-09-07] MEDS: METOPROLOL SUCCINATE EXT REL 100 MG TABCR 200 MG PO (08:21)
[2021-09-07] MEDS: DOXAZOSIN MESYLATE 4 MG TABLET PO (08:21)
[2021-09-07] MEDS: oxyCODONE HCL (*CRX) 5 MG TAB IR PO ×3 (10:45→22:51)
[2021-09-07] MEDS: oxyCODONE/ACETAMINOPHEN (*CRX) 5-325 MG TABLET 1 TABLET PO ×3 (10:45→22:52)
[2021-09-07 11:21] LABS: Glucose Point of Care 117 mg/dl (65-105)
--- NOTE | 2021-09-07 11:45 | PCNSR ---
On 09/07/21, the student, Terri Mata, provided care and completed [facility] documentation on this patient. I have reviewed the student's documentation and agree with the findings.
--- NOTE | 2021-09-07 12:16 | WPDUROPN2 ---
Progress Note: A&P Assessment and Plan (1) Acute on chronic kidney failure: Code(s): N17.9 - Acute kidney failure, unspecified; N18.9 - Chronic kidney disease, unspecified Status: Acute Assessment and Plan: Improved with eric in place, will plan to keep eric in until creatinine returns to baseline, then do a voiding trial. I assured him that he cannot leave the hospital until his kidney function returns to normal, he understands he will need to stay. No intervention needed at this time, we will watch creatinine from a distance and have him f/u in 4-6 weeks after his MRI with Dr. Huitron as he is previous Dr. Bajwa patient who is no longer with our practice. (2) History of kidney cancer: Code(s): Z85.528 - Personal history of other malignant neoplasm of kidney Status: Acute Assessment and Plan: Will need an MRI with and without contrast in 4 - 6 weeks to further evaluate the right renal masses d/t his history of renal cancer. (3) Perinephric hematoma: Code(s): S37.019A - Minor contusion of unspecified kidney, initial encounter Status: Acute (4) Right renal mass: Code(s): N28.89 - Other specified disorders of kidney and ureter Status: Acute Subjective Subjective Date/Time Seen: 09/07/21 12:16 Perinephric Hematoma left kidney. History of partial nephrectomy d/t renal cell carcinoma. WBC is stable, creatinine is improved with eric placement to 5.70, it is unclear if he was in retention at the time of eric insertion. CT shows complex left kidiney with a perinephric hematoma and multiple small exophytic masses in the lower right kidney. The patient states he is anxious to leave the hospital as it is borning here. Review of Systems Cardiovascular: Cardiovascular: Denies chest pain Respiratory: Respiratory: Reports no additional respiratory complaints Genitourinary: Genitourinary: Denies hematuria, Denies dysuria, Denies flank pain, Denies urinary frequency and Denies urinary hesitancy Exam Resp: Effort & Inspection: normal respiratory effort Cardio: Rate: regular rate GI: GI Palp: Yes Soft to palpation and No Tenderness to palpation present (GI) : General: Yes no CVA tenderness Urinary Catheter: Urinary Catheter: patent and draining and urine clear Extrem: Right lower extremity: no edema Left lower extremity: no edema Objective Data Vital Signs Vital Signs: Vital Signs - 24 hr 09/06/21 14:00 09/06/21 16:00 09/06/21 16:00 Temperature 98.4 F Pulse Rate 74 66 Respiratory Rate 18 Blood Pressure 146/62 H Pulse Oximetry 94 Oxygen Delivery Room Air 09/06/21 16:00 09/06/21 18:00 09/06/21 20:00 Temperature 97.9 F Pulse Rate 62 90 86 Respiratory Rate 20 Blood Pressure 175/64 H Pulse Oximetry 98 Oxygen Delivery 09/06/21 20:44 09/06/21 21:02 09/07/21 04:22 Temperature 98.8 F 98 F Pulse Rate 95 80 Respiratory Rate 20 20 Blood Pressure 115/75 165/77 H Pulse Oximetry 98 97 97 Oxygen Delivery Room Air 09/07/21 08:21 09/07/21 08:20 Temperature Pulse Rate 80 Respiratory Rate Blood Pressure Pulse Oximetry Oxygen Delivery Room Air Intake/Output Intake/Output: Intake & Output 09/04/21 09/05/21 09/06/21 09/07/21 23:59 23:59 23:59 23:59 Intake Total 1000 1480 3124 Output Total 2950 1200 1200 Balance 1000 -1470 1924 -1200 Meds/Results Medications: Active Medications Generic Name Dose Route Start Last Admin Trade Name Freq PRN Reason Stop Dose Admin Acetaminophen 650 mg 09/04/21 14:01 Acetaminophen 325 Mg Tablet PO Q4H PRN Mild Pain (1-3) or Fever Hydrocodone Bitart/Acetaminophen 1 tab 09/04/21 14:01 09/05/21 11:27 Hydrocodone/Acetaminophen (*Crx) 5-325 Mg Tablet PO 1 tab Q4H PRN Administration Pain Rated 4-6 Albuterol 1 puff 09/04/21 19:47 Albuterol Sulfate (*Sp) Aerosol 1 Puff INHALATION Q4H PRN SHORTNESS OF BREATH
[2021-09-07 13:09] LABS: Potassium 5.7 mmol/L (3.4-5.0)
--- NOTE | 2021-09-07 13:58 | PM.IMPN ---
Progress Note: A&P Assessment and Plan (1) Metabolic encephalopathy: Code(s): G93.41 - Metabolic encephalopathy Status: Acute Assessment and Plan: Secondary to worsening renal function with significant uremia and electrolyte abnormalities. Brain CT without acute abnormalities. With appropriate treatment, mental status has improved. Resolved. Continue to monitor. (2) Acute on chronic kidney failure: Code(s): N17.9 - Acute kidney failure, unspecified; N18.9 - Chronic kidney disease, unspecified Status: Acute Assessment and Plan: Creatinine improved to 2.8 last admission which was about a month ago. Creatinine on admission here was 8.4. Precipitating etiology is not entirely clear but probably related to acute blood loss and drop in Hgb and related to his medications. CT of the abdomen and pelvis showed bilateral renal masses with a left perinephric hematoma but no hydronephrosis. He does take lisinopril and Lasix daily at home which were held. Quinn catheter was inserted and yielded approximately 300mL of light yellow urine. Cr better. UOP 1.2L yesterday. Continue IV hydration. Monitor fluid volume status given history of systolic dysfunction. Avoid nephrotoxic agents. Nephrology following and appreciate their input. (3) Perinephric hematoma: Code(s): S37.019A - Minor contusion of unspecified kidney, initial encounter Status: Acute Assessment and Plan: Patient was on Coumadin but changed to apixaban about a month ago for possible pulmonary embolism. V/Q scan at that time was nondiagnostic/intermediate probability for PE and lower extremity venous Doppler ultrasounds were negative for DVT. Apixaban being held. His hemoglobin is 4.5 g lower than what was just 1 month ago but stable in the 8 range. Continue to monitor H&H closely. Urology consulted and appreciate their input. (4) Hyperkalemia: Code(s): E87.5 - Hyperkalemia Status: Acute Assessment and Plan: Secondary to worsening renal function. Potassium remains elevated. Lokelma once. Will follow (5) Anticoagulated: Code(s): Z79.01 - snf (current) use of anticoagulants Status: Acute Assessment and Plan: As above, apixaban is currently on hold. Was on Warfarin on admission in July with INR 1.9. He had a VQ nondiagnostic/intermediate probability for PE. He was discharged home on Eliquis 5mg BID instead of Warfarin because it was felt that he failed therapy. He was not loaded on Eliquis. We repeated the lower extremity venous Doppler ultrasounds and they remain negative. Monitor off anticoagulation. (6) Acute on chronic anemia: Code(s): D64.9 - Anemia, unspecified Status: Acute Assessment and Plan: In part due to acute blood loss from perinephric hematoma. Suspect also with chronic anemia from his CKD. Hgb low but stable. Down to 7.9 felt related tot he IV fluids. Trend hemoglobin hematocrit and transfuse if indicated. (7) History of kidney cancer: Code(s): Z85.528 - Personal history of other malignant neoplasm of kidney Status: Acute Assessment and Plan: Status post partial right nephrectomy and cryotherapy of the left kidney. Imaging concerning for possible recurrent. 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 Holding diabetic medications due to hypoglycemia. Monitor on sliding scale insulin, Accu-Cheks, and hypoglycemic protocol. Able to wean off dextrose. (9) Pulmonary infiltrate: Code(s): R91.8 - Other nonspecific abnormal finding of lung field Status: Acute Assessment and Plan: Probably resolving pneumonia from last month. Sent home on Doxycycline that he has completed. No evidence to suggest acute infection at this time.
[2021-09-07 14:16] VITALS: BP 151/79; PULSE 76; RESP 18; TEMP 36.3; O2SAT 98
[2021-09-07] MEDS: SODIUM CHLORIDE 0.9% IV 1,000 ML 70 ML IV CONT (14:41)
[2021-09-07] MEDS: SODIUM ZIRCONIUM CYCLOSILICATE 10 GM POWD.PACK PO (14:45)
--- NOTE | 2021-09-07 15:30 | PM.PNNEP ---
Progress Note: A&P Additional Plan 1. The patient has chronic kidney disease. His baseline creatinine seems to be in the high 2s. This is likely due to diabetes, hypertension, nephrectomy, and vascular disease. He sees Dr. Ferreira at [facility] for his chronic nephrologic care. 2. He has acute kidney injury. This may be due to dehydration. His creatinine seems to be improving with IV fluids. he is still on normal saline at 70cc/hour. On the CT scan it does not look like he has obstructive component to his acute kidney injury. CPK is normal Urinalysis is bland. Urine electrolytes are non pre renal His creatinine has come down from 8.4 to 7,7-6.7 and now 5.7. Continue IV fluids 1 more day. 3. The patient has anemia. His iron levels, and vitamin B12 and folate are all okay. His reticular count is okay at 1.9. Hemoglobin is still low. Will start him on EPO. 4. His CO2 is low. He is on sodium bicarbonate. 5. Renal masses. Urology saw the patient. Will follow up as an outpatient with them. 6. Diabetes. On meds per hospitalist 7. hypertension blood pressure doing well between 105 and 170. Will trend out for another day. 8. MIGUEL phosphorus is 7. On sevelamer Subjective Date/time seen: 09/07/21 15:30 Interval history: Lencho is feeling better. He is eager to go home. Eating better. He is not short of breath or swollen Exam Narrative: WDWN in NAD skin no rash head ncat lungs clear bilaterally cor reg no rub abd BS+ nontender and soft ext no edema or cyanosis. Objective Data Vital Signs Vital Signs: Vital Signs - 24 hr 09/06/21 16:00 09/06/21 16:00 09/06/21 16:00 Temperature 36.9 C Pulse Rate 66 62 Respiratory Rate 18 Blood Pressure 146/62 H Pulse Oximetry 94 Oxygen Delivery Room Air 09/06/21 18:00 09/06/21 20:00 09/06/21 20:44 Temperature 36.6 C 37.1 C Pulse Rate 90 86 95 Respiratory Rate 20 20 Blood Pressure 175/64 H 115/75 Pulse Oximetry 98 98 Oxygen Delivery 09/06/21 21:02 09/07/21 04:22 09/07/21 08:21 Temperature 36.6 C Pulse Rate 80 80 Respiratory Rate 20 Blood Pressure 165/77 H Pulse Oximetry 97 97 Oxygen Delivery Room Air 09/07/21 08:20 09/07/21 14:16 Temperature 36.3 C L Pulse Rate 76 Respiratory Rate 18 Blood Pressure 151/79 H Pulse Oximetry 98 Oxygen Delivery Room Air Intake/Output Intake/Output: Intake & Output 09/04/21 09/05/21 09/06/21 09/07/21 23:59 23:59 23:59 23:59 Intake Total 1000 1480 3124 1120 Output Total 2950 1200 1200 Balance 1000 -1470 1924 -80 Meds/Results Medications: Active Medications Generic Name Dose Route Start Last Admin Trade Name Freq PRN Reason Stop Dose Admin Acetaminophen 650 mg 09/04/21 14:01 Acetaminophen 325 Mg Tablet PO Q4H PRN Mild Pain (1-3) or Fever Hydrocodone Bitart/Acetaminophen 1 tab 09/04/21 14:01 09/05/21 11:27 Hydrocodone/Acetaminophen (*Crx) 5-325 Mg Tablet PO 1 tab Q4H PRN Administration Pain Rated 4-6 Albuterol 1 puff 09/04/21 19:47 Albuterol Sulfate (*Sp) Aerosol 1 Puff INHALATION Q4H PRN SHORTNESS OF BREATH Alprazolam 0.5 mg 09/06/21 00:42 09/06/21 21:25 Alprazolam (*Crx) 0.5 Mg Tablet PO 0.5 mg BID PRN Administration Anxiety Calcitriol 0.25 mcg 09/08/21 05:00 Calcitriol 0.25 Mcg Capsule PO DAILY@0500 YING Citalopram Hydrobromide 20 mg 09/04/21 21:00 09/06/21 20:36 Citalopram Hydrobromide 20 Mg Tablet PO 20 mg HS YING Administration Dextrose 12.5 gm 09/04/21 19:42 09/04/21 17:57 Dextrose 50% 25 Gm/50 Ml Syringe IV PUSH 12.5 gm PRN PRN Administration Hypoglycemia Protocol Doxazosin Mesylate 4 mg 09/08/21 05:00 Doxazosin Mesylate 4 Mg Tablet PO DAILY@0500 YING Glucagon 1 mg 09/04/21 19:42 Glucagon For Inj 1 Mg Vial IM PRN PRN Hypoglycemia Protocol Glucose 15 gm 09/04
[2021-09-07 16:12] LABS: Glucose Point of Care 120 mg/dl (65-105)
[2021-09-07] MEDS: EPOETIN ALFA-EPBX 10,000 UNITS/ML VIAL 10000 UNITS SUB-Q (17:29)
[2021-09-07] MEDS: ALPRAZolam (*CRX) 0.5 MG TABLET PO (20:02)
[2021-09-07 20:03] LABS: Potassium 4.8 mmol/L (3.4-5.0)
[2021-09-07] MEDS: CITALOPRAM HYDROBROMIDE 20 MG TABLET PO (20:03)
[2021-09-07 21:02] LABS: Glucose Point of Care 156 mg/dl (65-105)
[2021-09-07 22:00] VITALS: BP 148/86; PULSE 67; RESP 20; TEMP 36.3; O2SAT 98
[2021-09-08] MEDS: DOXAZOSIN MESYLATE 4 MG TABLET PO (04:32)
[2021-09-08] MEDS: calcitrioL 0.25 MCG CAPSULE PO (04:32)
[2021-09-08 04:34] VITALS: PULSE 77
[2021-09-08] MEDS: METOPROLOL SUCCINATE EXT REL 100 MG TABCR 200 MG PO (04:34)
[2021-09-08 05:49] LABS: Hematocrit 24.6 % (42.0-52.0); Hemoglobin 7.9 g/dL (14.0-18.0); Mean Corpuscular HGB Conc 32.1 g/dl (32-36); Mean Corpuscular Hemoglobin 29.7 pg (26-34); Mean Corpuscular Volume 92.5 fl (80-100); Platelet Count Result 188 k/mm3 (150-375); Red Blood Count 2.66 M/mm3 (4.6-6.20); Red Cell Distribution Width 13.5 % (11.5-14.5); White Blood Count 5.5 K/mm3 (4.5-10.0)
[2021-09-08 06:00] VITALS: BP 187/88; PULSE 77; RESP 21; TEMP 36.2; O2SAT 100
[2021-09-08 06:04] LABS: Albumin Level 3.1 g/dL (3.5-5.1); Anion Gap 6 mmol/L (8-16); Blood Urea Nitrogen 74 mg/dL (9-20); Calcium 7.8 mg/dL (8.4-10.2); Carbon Dioxide 22 mmol/L (22-30); Chloride 109 mmol/L (98-107); Estimated CRCL calculation 15 ml/min; Estimated Glomerular Filt Rate 11; Glucose 94 mg/dL (65-110); Phosphorus 5.6 mg/dL (2.5-4.5); Potassium 5.2 mmol/L (3.4-5.0); Sodium 137 mmol/L (137-145)
[2021-09-08 07:49] LABS: Glucose Point of Care 116 mg/dl (65-105)
[2021-09-08] MEDS: SODIUM BICARBONATE TAB 650 MG TABLET 1300 MG PO ×2 (08:22→16:56)
[2021-09-08] MEDS: SEVELAMER CARBONATE 800 MG TABLET PO ×3 (08:22→16:56)
[2021-09-08] MEDS: ALPRAZolam (*CRX) 0.5 MG TABLET PO (08:47)
[2021-09-08] MEDS: oxyCODONE/ACETAMINOPHEN (*CRX) 5-325 MG TABLET 1 TABLET PO ×3 (08:48→20:29)
[2021-09-08] MEDS: oxyCODONE HCL (*CRX) 5 MG TAB IR PO ×3 (08:49→20:28)
[2021-09-08] MEDS: SODIUM CHLORIDE 0.9% IV 1,000 ML 70 ML IV CONT (09:59)
[2021-09-08] MEDS: SODIUM ZIRCONIUM CYCLOSILICATE 10 GM POWD.PACK PO (10:00)
[2021-09-08 11:33] LABS: Glucose Point of Care 204 mg/dl (65-105)
[2021-09-08] MEDS: INSULIN ASPART (*BKC) 100 UNITS/ML SUB-Q (11:59)
[2021-09-08 14:00] VITALS: BP 135/70; PULSE 85; RESP 16; TEMP 36.7; O2SAT 98
--- NOTE | 2021-09-08 14:21 | PM.IMPN ---
Progress Note: A&P Assessment and Plan (1) Acute on chronic kidney failure: Code(s): N17.9 - Acute kidney failure, unspecified; N18.9 - Chronic kidney disease, unspecified Status: Acute Assessment and Plan: Creatinine was 4.2 but improved to 2.8 last admission which was about a month ago. Creatinine on admission here was 8.4. Precipitating etiology is not entirely clear but probably related to acute blood loss with drop in Hgb and related to his medications. CT of the abdomen and pelvis showed bilateral renal masses with a left perinephric hematoma but no hydronephrosis. He does take lisinopril and Lasix daily at home which were held. Quinn catheter was inserted and yielded approximately 300mL of light yellow urine. Cr better. UOP 2.2L yesterday. Continue IV hydration. Monitor fluid volume status given history of systolic dysfunction. Avoid nephrotoxic agents. Nephrology following and appreciate their input. Lasix trial? (2) Perinephric hematoma: Code(s): S37.019A - Minor contusion of unspecified kidney, initial encounter Status: Acute Assessment and Plan: Patient was on Coumadin but changed to apixaban about a month ago for possible pulmonary embolism. CT scan on admission showing complex appearance of the left kidney probable perinephric hematoma.?His hemoglobin is 4.5 g lower than what was just 1 month ago but stable in the 8 range. Apixaban being held. Hgb low but stable in the 7-8 range. Continue to monitor H&H closely. Urology consulted and appreciate their input. (3) Hyperkalemia: Code(s): E87.5 - Hyperkalemia Status: Acute Assessment and Plan: Secondary to worsening renal function. Potassium remains mildly elevated. Lokelma was started. Will follow. (4) Metabolic encephalopathy: Code(s): G93.41 - Metabolic encephalopathy Status: Acute Assessment and Plan: Secondary to worsening renal function with significant uremia and electrolyte abnormalities. Brain CT without acute abnormalities. With appropriate treatment, mental status has improved. Resolved. Continue to monitor. (5) Anticoagulated: Code(s): Z79.01 - jail (current) use of anticoagulants Status: Acute Assessment and Plan: Was on Warfarin on admission in July with INR 1.9. He had a VQ scan that was nondiagnostic/intermediate probability for PE. He was discharged home on Eliquis 5mg BID instead of Warfarin because it was felt that he failed therapy. He was not loaded on Eliquis. As above, apixaban is currently on hold. We repeated the lower extremity venous Doppler ultrasounds and they remain negative. Monitor off anticoagulation. (6) Acute on chronic anemia: Code(s): D64.9 - Anemia, unspecified Status: Acute Assessment and Plan: In part due to acute blood loss from perinephric hematoma. Suspect also with chronic anemia from his CKD. Hgb low but stable in the 7-8 range. Trend hemoglobin hematocrit and transfuse if indicated. (7) History of kidney cancer: Code(s): Z85.528 - Personal history of other malignant neoplasm of kidney Status: Acute Assessment and Plan: Status post partial right nephrectomy and cryotherapy of the left kidney. Imaging concerning for possible recurrent. 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 Patient was hypoglycemic felt related to the glimepiride and LITTLE. Treated with IV dextrose. Hypoglycemia resolved. Able to wean off dextrose. Holding diabetic medications due to hypoglycemia. Monitor on sliding scale insulin, Accu-Cheks, and hypoglycemic protocol. (9) Hypoglycemia: Code(s): E16.2 - Hypoglycemia, unspecified Status: Acute Assessment and Plan: As above (10) Pulmonary infiltrate:
--- NOTE | 2021-09-08 15:19 | PM.PNNEP ---
Progress Note: A&P Additional Plan 1. The patient has chronic kidney disease. His baseline creatinine seems to be in the high 2s. This is likely due to diabetes, hypertension, nephrectomy, and vascular disease. He sees Dr. Ferreira at [facility] for his chronic nephrologic care. 2. He has acute kidney injury. This may be due to dehydration. His creatinine seems to be improving with IV fluids. he is still on normal saline at 70cc/hour. On the CT scan it does not look like he has obstructive component to his acute kidney injury. CPK is normal Urinalysis is bland. Urine electrolytes are non pre renal His creatinine has come down from 8.4 to 7,7-6.7 then 5.7 and now 5.1. Will stop the IV fluids and repeat labs tomorrow. If he continues to trend in the proper direction then perhaps he can go home tomorrow with close outpatient follow-up.. 3. The patient has anemia. His iron levels, and vitamin B12 and folate are all okay. His reticular count is okay at 1.9. Hemoglobin is still low. Will start him on EPO. he will probably need more EPO as an outpatient. This can be arranged through Dr. Branch. 4. His CO2 is low. He is on sodium bicarbonate. It is up to 22. If higher tomorrow will stop the bicarb. 5. Renal masses. Urology saw the patient. Will follow up as an outpatient with them. 6. Diabetes. On meds per hospitalist 7. hypertension blood pressure Is very erratic, between 115 and 187. He is on metoprolol and doxazosin. Will trend out for another day. 8. MIGUEL phosphorus is down to 5.6. On sevelamer Subjective Date/time seen: 09/08/21 15:19 Interval history: Lencho is feeling better. He is eager to go home. He is eating pretty well. His IV fluids were just discontinued. Exam Narrative: WDWN in NAD skin no rash or subcu nodules head ncat lungs clear bilaterally cor reg no rub or gallop abd BS+ nontender and soft ext no edema or cyanosis. Objective Data Vital Signs Vital Signs: Vital Signs - 24 hr 09/07/21 22:00 09/08/21 04:34 09/08/21 06:00 Temperature 36.3 C L 36.2 C L Pulse Rate 67 77 77 Respiratory Rate 20 21 H Blood Pressure 148/86 H 187/88 H Pulse Oximetry 98 100 09/08/21 14:00 Temperature 36.7 C Pulse Rate 85 Respiratory Rate 16 Blood Pressure 135/70 Pulse Oximetry 98 Intake/Output Intake/Output: Intake & Output 09/05/21 09/06/21 09/07/21 09/08/21 23:59 23:59 23:59 23:59 Intake Total 1480 3124 1540 2060 Output Total 2950 1200 2250 1100 Balance -1470 1924 -710 960 Meds/Results Medications: Active Medications Generic Name Dose Route Start Last Admin Trade Name Freq PRN Reason Stop Dose Admin Acetaminophen 650 mg 09/04/21 14:01 Acetaminophen 325 Mg Tablet PO Q4H PRN Mild Pain (1-3) or Fever Hydrocodone Bitart/Acetaminophen 1 tab 09/04/21 14:01 09/05/21 11:27 Hydrocodone/Acetaminophen (*Crx) 5-325 Mg Tablet PO 1 tab Q4H PRN Administration Pain Rated 4-6 Albuterol 1 puff 09/04/21 19:47 Albuterol Sulfate (*Sp) Aerosol 1 Puff INHALATION Q4H PRN SHORTNESS OF BREATH Alprazolam 0.5 mg 09/06/21 00:42 09/08/21 08:47 Alprazolam (*Crx) 0.5 Mg Tablet PO 0.5 mg BID PRN Administration Anxiety Calcitriol 0.25 mcg 09/08/21 05:00 09/08/21 04:32 Calcitriol 0.25 Mcg Capsule PO 0.25 mcg DAILY@0500 YING Administration Citalopram Hydrobromide 20 mg 09/04/21 21:00 09/07/21 20:03 Citalopram Hydrobromide 20 Mg Tablet PO 20 mg HS YING Administration Dextrose 12.5 gm 09/04/21 19:42 09/04/21 17:57 Dextrose 50% 25 Gm/50 Ml Syringe IV PUSH 12.5 gm PRN PRN Administration Hypoglycemia Protocol Doxazosin Mesylate 4 mg 09/08/21 05:00 09/08/21 04:32 Doxazosin Mesylate 4 Mg Tablet PO 4 mg DAILY@0500 YING Administration Epoetin Earnest-epbx 10,000 units 09/07/21 15:44 09/07/21 17:29 Epoetin Earnest-Epbx 10,000 Units/Ml Vial MOSER
[2021-09-08 16:36] LABS: Glucose Point of Care 96 mg/dl (65-105)
[2021-09-08 19:34] VITALS: BP 155/64; PULSE 83; RESP 20; TEMP 36.5; O2SAT 96
[2021-09-08 20:00] VITALS: PULSE 83; RESP 20; O2SAT 96
[2021-09-08] MEDS: CITALOPRAM HYDROBROMIDE 20 MG TABLET PO (20:22)
[2021-09-08 20:41] LABS: Glucose Point of Care 88 mg/dl (65-105)
[2021-09-09] MEDS: oxyCODONE HCL (*CRX) 5 MG TAB IR PO ×2 (02:40→10:09)
[2021-09-09] MEDS: oxyCODONE/ACETAMINOPHEN (*CRX) 5-325 MG TABLET 1 TABLET PO ×2 (02:40→10:10)
[2021-09-09 05:14] VITALS: BP 154/64; PULSE 90; RESP 20; TEMP 36.4; O2SAT 96
[2021-09-09 05:30] LABS: Hematocrit 24.1 % (42.0-52.0); Hemoglobin 7.7 g/dL (14.0-18.0); Mean Corpuscular Hemoglobin 29.7 pg (26-34); Mean Corpuscular Volume 93.1 fl (80-100); Mean Platelet Volume 9.2 fl (7.4-10.4); Platelet Count Result 175 k/mm3 (150-375); Red Blood Count 2.59 M/mm3 (4.6-6.20); Red Cell Distribution Width 13.3 % (11.5-14.5); White Blood Count 5.7 K/mm3 (4.5-10.0)
[2021-09-09 05:39] LABS: Albumin Level 3.3 g/dL (3.5-5.1); Anion Gap 7 mmol/L (8-16); Blood Urea Nitrogen 64 mg/dL (9-20); Calcium 7.9 mg/dL (8.4-10.2); Carbon Dioxide 22 mmol/L (22-30); Chloride 108 mmol/L (98-107); Estimated CRCL calculation 16 ml/min; Estimated Glomerular Filt Rate 12; Glucose 96 mg/dL (65-110); Phosphorus 5.3 mg/dL (2.5-4.5); Potassium 4.9 mmol/L (3.4-5.0); Sodium 137 mmol/L (137-145)
[2021-09-09] MEDS: calcitrioL 0.25 MCG CAPSULE PO (06:10)
[2021-09-09] MEDS: DOXAZOSIN MESYLATE 4 MG TABLET PO (06:10)
[2021-09-09] MEDS: METOPROLOL SUCCINATE EXT REL 100 MG TABCR 200 MG PO (06:10)
[2021-09-09] MEDS: SODIUM BICARBONATE TAB 650 MG TABLET 1300 MG PO (08:08)
[2021-09-09] MEDS: SEVELAMER CARBONATE 800 MG TABLET PO (08:08)
[2021-09-09 08:13] LABS: Glucose Point of Care 130 mg/dl (65-105)
--- NOTE | 2021-09-09 09:20 | PM.PNNEP ---
Progress Note: A&P Additional Plan 1. The patient has chronic kidney disease. His baseline creatinine seems to be in the high 2s. This is likely due to diabetes, hypertension, nephrectomy, and vascular disease. He sees Dr. Ferreira at [facility] for his chronic nephrologic care. 2. He has acute kidney injury. This may be due to dehydration. His creatinine seems to be improving with IV fluids. he is still on normal saline at 70cc/hour. On the CT scan it does not look like he has obstructive component to his acute kidney injury. CPK is normal Urinalysis is bland. Urine electrolytes are non pre renal His creatinine has come down from 8.4 to current value in the 4s. This is still above his baseline but seems to be close to a plateau. He may have a new baseline in the 4s. I think it is okay for him to go home. He does need to follow up with Dr. Branch soon. Is going to call his office as soon as he gets home 3. The patient has anemia. His iron levels, and vitamin B12 and folate are all okay. His reticular count is okay at 1.9. Hemoglobin is still low. Will start him on EPO. he will probably need more EPO as an outpatient. This can be arranged through Dr. Branch. 4. His CO2 is low. He is on sodium bicarbonate. It is up to 22. If higher tomorrow will stop the bicarb. 5. Renal masses. Urology saw the patient. Will follow up as an outpatient with them. 6. Diabetes. On meds per hospitalist 7. hypertension blood pressure Is very erratic, between 115 and 187. He is on metoprolol and doxazosin. Will trend out for another day. 8. MIGUEL phosphorus is down to 5.6. On sevelamer Subjective Date/time seen: 09/09/21 09:20 Interval history: Lencho is feeling better. He is eager to go home. He is eating pretty well. No chest pain or shortness of breath Exam Narrative: WDWN in NAD skin no rash head ncat lungs clear to auscultation cor reg no rub or gallop abd BS+ nontender and soft ext no edema or cyanosis. Objective Data Vital Signs Vital Signs: Vital Signs - 24 hr 09/08/21 14:00 09/08/21 19:34 09/08/21 20:00 Temperature 36.7 C 36.5 C Pulse Rate 85 83 83 Respiratory Rate 16 20 20 Blood Pressure 135/70 155/64 H Pulse Oximetry 98 96 96 Oxygen Delivery Room Air 09/09/21 05:14 Temperature 36.4 C Pulse Rate 90 Respiratory Rate 20 Blood Pressure 154/64 H Pulse Oximetry 96 Oxygen Delivery Intake/Output Intake/Output: Intake & Output 09/06/21 09/07/21 09/08/21 09/09/21 23:59 23:59 23:59 23:59 Intake Total 3124 1540 2380 50 Output Total 1200 2250 2000 1350 Balance 5784 -553 380 1300 Meds/Results Medications: Active Medications Generic Name Dose Route Start Last Admin Trade Name Freq PRN Reason Stop Dose Admin Acetaminophen 650 mg 09/04/21 14:01 Acetaminophen 325 Mg Tablet PO Q4H PRN Mild Pain (1-3) or Fever Hydrocodone Bitart/Acetaminophen 1 tab 09/04/21 14:01 09/05/21 11:27 Hydrocodone/Acetaminophen (*Crx) 5-325 Mg Tablet PO 1 tab Q4H PRN Administration Pain Rated 4-6 Albuterol 1 puff 09/04/21 19:47 Albuterol Sulfate (*Sp) Aerosol 1 Puff INHALATION Q4H PRN SHORTNESS OF BREATH Alprazolam 0.5 mg 09/06/21 00:42 09/08/21 08:47 Alprazolam (*Crx) 0.5 Mg Tablet PO 0.5 mg BID PRN Administration Anxiety Calcitriol 0.25 mcg 09/08/21 05:00 09/09/21 06:10 Calcitriol 0.25 Mcg Capsule PO 0.25 mcg DAILY@0500 YING Administration Citalopram Hydrobromide 20 mg 09/04/21 21:00 09/08/21 20:22 Citalopram Hydrobromide 20 Mg Tablet PO 20 mg HS YING Administration Dextrose 12.5 gm 09/04/21 19:42 09/04/21 17:57 Dextrose 50% 25 Gm/50 Ml Syringe IV PUSH 12.5 gm PRN PRN Administration Hypoglycemia Protocol Doxazosin Mesylate 4 mg 09/08/21 05:00 09/09/21 06:10 Doxazosin Mesylate 4 Mg Tablet PO 4 mg DAILY@0500 YING Administration Epoetin Earnest-epb
[2021-09-09] MEDS: SODIUM ZIRCONIUM CYCLOSILICATE 10 GM POWD.PACK PO (10:04)
--- NOTE | 2021-09-09 10:52 | PM.DS ---
DS: Admitting Diagnosis Discharge Date 09/09/2021 Admitting Diagnosis acute kidney injury and perinephric hematoma DS: Discharge Diagnosis Discharge Diagnosis (1) Acute on chronic kidney failure: Code(s): N17.9 - Acute kidney failure, unspecified; N18.9 - Chronic kidney disease, unspecified Status: Acute Assessment and Plan: Creatinine was 4.2 but improved to 2.8 last admission which was about a month ago. Creatinine on admission here was 8.4. Precipitating etiology is not entirely clear but probably related to acute blood loss with drop in Hgb and related to his medications. CT of the abdomen and pelvis showed bilateral renal masses with a left perinephric hematoma but no hydronephrosis. He does take lisinopril and Lasix daily at home which were held. Quinn catheter was inserted and yielded approximately 300mL of light yellow urine. Cr better with good urine output. Creatinine down to 4.9 at the time of discharge. Avoid nephrotoxic agents. Nephrology following and appreciate their input Okay with discharge per Nephrology. To continue to follow with Nephrology as an outpatient basis. BMP in 1 week. Will continue Quinn catheter at discharge. Follow-up with urology as an outpatient basis. (2) Perinephric hematoma: Code(s): S37.019A - Minor contusion of unspecified kidney, initial encounter Status: Acute Assessment and Plan: Patient was on Coumadin but changed to apixaban about a month ago for possible pulmonary embolism. CT scan on admission showing complex appearance of the left kidney probable perinephric hematoma.?His hemoglobin is 4.5 g lower than what was just 1 month ago but stable in the 8 range. Apixaban being held. Hgb low but stable in the 7-8 range. Continue to monitor H&H closely. Urology consulted and appreciate their input. Will continue to hold Eliquis at this time due to acute blood loss anemia. (3) Hyperkalemia: Code(s): E87.5 - Hyperkalemia Status: Acute Assessment and Plan: Secondary to worsening renal function. Potassium remains mildly elevated. Lokelma was started. Potassium normalized by the time of discharge. (4) Metabolic encephalopathy: Code(s): G93.41 - Metabolic encephalopathy Status: Acute Assessment and Plan: Secondary to worsening renal function with significant uremia and electrolyte abnormalities. Brain CT without acute abnormalities. With appropriate treatment, mental status has improved. Resolved. Continue to monitor. (5) Anticoagulated: Code(s): Z79.01 - prison (current) use of anticoagulants Status: Acute Assessment and Plan: Was on Warfarin on admission in July with INR 1.9. He had a VQ scan that was nondiagnostic/intermediate probability for PE. He was discharged home on Eliquis 5mg BID instead of Warfarin because it was felt that he failed therapy. He was not loaded on Eliquis. As above, apixaban is currently on hold. We repeated the lower extremity venous Doppler ultrasounds and they remain negative. Monitor off anticoagulation. he does have history of atrial fibrillation hands once is safer to resume which is to be decided as an outpatient basis. Continue to monitor off anticoagulation this time (6) Acute on chronic anemia: Code(s): D64.9 - Anemia, unspecified Status: Acute Assessment and Plan: In part due to acute blood loss from perinephric hematoma. Suspect also with chronic anemia from his CKD. Hgb low but stable in the 7-8 range. Trend hemoglobin hematocrit and transfuse if indicated. no transfusion needed during the hospital stay He also has anemia low reticulocyte count underlying chronic kidney disease. Should also get Procrit injection for his anemia as an outpatient basis. (7) History of kidney cancer: Code(s): Z85.528 - Personal history of other malignant neoplasm of kidney Status: Acute Assessment and Plan: Status post partial r
== END 2021-09-09 12:03 | disposition home or self-care (01) | DRG 682 ==
LOC: ANHED 14:13 → ANHIMU 16:35 → ANH2MED 09-06 20:22
PROVIDERS: Internal Medicine Nephrology; Physician Assistant; Admitting Provider Internal Medicine; Emergency Provider Emergency Medicine; PCP Emergency Medicine; Visit Provider Internal Medicine
DX: N17.9 Acute kidney failure, unspecified (principal); G93.41 Metabolic encephalopathy; S37.091A Other injury of right kidney, initial encounter; D62 Acute posthemorrhagic anemia; I13.0 Hypertensive heart and chronic kidney disease with heart failure and stage 1 through stage 4 chronic kidney disease, or unspecified chronic kidney disease; I50.32 Chronic diastolic (congestive) heart failure; I48.20 Chronic atrial fibrillation, unspecified; S37.012A Minor contusion of left kidney, initial encounter; N18.9 Chronic kidney disease, unspecified; E86.0 Dehydration; D63.1 Anemia in chronic kidney disease; X58.XXXA Exposure to other specified factors, initial encounter; E87.5 Hyperkalemia; E11.649 Type 2 diabetes mellitus with hypoglycemia without coma; E78.5 Hyperlipidemia, unspecified; J44.9 Chronic obstructive pulmonary disease, unspecified; R91.8 Other nonspecific abnormal finding of lung field; F17.210 Nicotine dependence, cigarettes, uncomplicated; Z85.528 Personal history of other malignant neoplasm of kidney; Z79.01 Long term (current) use of anticoagulants; Z79.4 Long term (current) use of insulin; Z90.5 Acquired absence of kidney; Z85.820 Personal history of malignant melanoma of skin; Z90.49 Acquired absence of other specified parts of digestive tract; Z95.810 Presence of automatic (implantable) cardiac defibrillator
CPT/HCPCS: 36415; 36600; 70450; 71045; 74176; 80048; 80053; 80069; 81001; 82375; 82550; 82570; 82607; 82728; 82746; 82805; 82948; 83036; 83050; 83540; 83550; 83605; 83735; 84100; 84132; 84156; 84300; 84439; 84443; 84480; 85014; 85018; 85025; 85027; 85046; 85610; 85730; 86850; 86900; 86901; 87086; 87088; 93005; 93306; 93970; 96361; 96374; 96375; 97161; 97165; 99291; A9270; J0610; J1815; J2270; J7030; J7121; Q5105

== ENCOUNTER 2021-11-02 08:46 | Outpatient (CLI) | payer MEDICARE, OTHER, SELFPAY ==
--- NOTE | ~2021-11-02 | CT_ITS ---
EXAMINATION: CT abdomen pelvis wo con DATE: 11/02/2021 09:13 INDICATION: Renal mass TECHNIQUE: Computed tomography (CT) of the abdomen and pelvis was performed without intravenous contr ast. Automated exposure control and iterative reconstruction technique were employed. Exam dose: 119 4.88 mGy-cm total exam DLP. COMPARISON: 09/04/2021 CT abdomen pelvis 11/09/2016 PET/CT scan 05/21/2013 MRI abdomen 09/29/2012 CT abdomen mass FINDINGS: There is a discoid density of the left lower lobe consistent with discoid atelectasis or sc arring. The lung bases are clear of infiltrate or consolidation. Cardiomegaly. Right ventricular pacemaker lead. No pericardial or pleural effusion. Occasional sulci hepatic and splenic granulomas. Stable subtle hypoattenuating lesion of segment 6 of the liver, previously reported as hemangioma, no t significantly changed since 09/29/2012. Stable right kidney, including focal hyperdense approximately 2 cm lesion along the medial aspect of the lower tip and approximately 11 mm exophytic cyst in the posterolateral inferior tip. There is sta ble perinephric stranding on the right. There is interval diminished perinephric hematoma on the left since 09/04/2021. No apparent new or enl arging left renal mass lesion is noted since 09/04/2021. There are approximately 4 nonobstructing left renal calculi, the largest approximately 4 mm, the others pinpoint size. No ureteral calculus or hydroureteronephrosis is noted on either side. Normal caliber and atherosclerotic calcification of the abdominal aorta, iliac and femoral arteries. Calcification at the origins of the celiac and superior mesenteric and right renal arteries. No interval intraperitoneal or retroperitoneal or pelvic mass lesion or adenopathy is noted since 08/26. The urinary bladder and prostate gland are unremarkable. Diverticulosis of the colon; no CT evidence of diverticulitis. No bowel obstruction, bowel wall thick ening, pneumatosis or intraperitoneal free air is detected. Small fat-containing right inguinal hernia. Small fat-containing umbilical hernia. Mild compression fracture deformities of T8 and T9, stable since 09/04/2021. IMPRESSION: Diminished size of left perinephric hematoma since 09/04/2021; no other significant caro e is noted Cannot exclude malignancy of either kidney on this limited noncontrast examination; renal MRI examina tion would be helpful for further evaluation of the kidneys. 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 Reviewed, dictated and finalized at location [facility]. IMPRESSION: Diminished size of left perinephric hematoma since 09/04/2021; no o ther significant change is noted Cannot exclude malignancy of either kidney on this limited noncontrast examinat ion; renal MRI examination would be helpful for further evaluation of the kidne ys. Mild left nonobstructive nephrolithiasis Cardiomegaly Right ventricular pacemaker lead Stable probable hemangioma of segment 6 of the liver Diverticulosis of the colon
== END 2021-11-02 08:47 | disposition home or self-care (01) ==
PROVIDERS: PCP Emergency Medicine; Visit Provider Urology
DX: N28.89 Other specified disorders of kidney and ureter (principal); N20.0 Calculus of kidney; I51.7 Cardiomegaly; Z95.0 Presence of cardiac pacemaker; K57.90 Diverticulosis of intestine, part unspecified, without perforation or abscess without bleeding
CPT/HCPCS: 74176

== ENCOUNTER 2022-03-02 09:23 | Outpatient (CLI) | payer MEDICARE, OTHER, SELFPAY ==
--- NOTE | ~2022-03-02 | CT_ITS ---
EXAMINATION: CT abdomen pelvis wo con DATE: 03/02/2022 09:54 INDICATION: Renal mass TECHNIQUE: Computed tomography (CT) of the abdomen and pelvis was performed without intravenous contr ast. The dose-length product was 1125.94 mGy-cm. Automated exposure control and iterative reconstruct ion technique were employed. COMPARISON: CT dated 11/02/2021 and 09/04/2021. FINDINGS: There is lingular atelectasis/scarring. Cardiomegaly. No significant pleural or pericardial effusion. There is atherosclerosis. There are calcified granulomas of the liver. Calcified granuloma s of the spleen. The pancreas, left adrenal gland is unremarkable. There is a small 1.8 cm right adre nal nodule, likely benign. There is an exophytic low-density mass of the right kidney measuring 2.3 c m posteriorly. There is a complex slightly hyperdense mass of the left kidney measuring approximately 3.7 x 3.3 cm. There is are not well evaluated without contrast. Recommend further evaluation with MR I with and without contrast or if that is not possible, further evaluation with ultrasound is recomme nded. The lower pole of the left kidney which are not well characterized without contrast. No lymphadenopathy. Nonobstructive bowel gas pattern. Colonic diverticulosis without diverticulitis. No acute osseous abnormality. There is mild lumbar spondylosis. Mild osteoarthritis of the hips. Ther e is a focal hyperdense nodule along the anterior margin of the bladder wall measuring 7 mm, suspicio us for transitional cell carcinoma. IMPRESSION: 1. Abnormal bilateral renal masses which are concerning for renal cell carcinoma, particularly the la rgest dominant mass in the left kidney. These are not well characterized without contrast. Recommend further evaluation with MRI without and with contrast or if that is not a possibility, further evalua tion with renal ultrasound is recommended. 2: Abnormal hyperdense 7 mm bladder mass anteriorly. Finding is suspicious for transitional cell carc inoma. Recommend further evaluation. Reviewed, dictated and finalized at location [facility]. ER FIXED INCOME IMPRESSION: 1. Abnormal bilateral renal masses which are concerning for renal cell carcinom a, particularly the largest dominant mass in the left kidney. These are not wel l characterized without contrast. Recommend further evaluation with MRI without and with contrast or if that is not a possibility, further evaluation with evangelista al ultrasound is recommended. 2: Abnormal hyperdense 7 mm bladder mass anteriorly. Finding is suspicious for transitional cell carcinoma. Recommend further evaluation.
== END 2022-03-02 09:24 | disposition home or self-care (01) ==
LOC: ANHIMG 09:25
PROVIDERS: PCP Emergency Medicine; Visit Provider Urology
DX: N28.89 Other specified disorders of kidney and ureter (principal); N32.9 Bladder disorder, unspecified
CPT/HCPCS: 74176

== ENCOUNTER 2022-04-23 12:16 | Inpatient (IN) | payer OTHER, MEDICARE, SELFPAY ==
[2022-04-23] VITALS (19 sets, daily range): BP systolic 165–208; BP diastolic 81–117; PULSE 74–105; RESP 14–24; TEMP 36.1–36.6; O2SAT 93–98; BMI 30.9
--- NOTE | ~2022-04-23 | NM_ITS ---
EXAMINATION: NM pulmonary perfusion DATE: 04/23/2022 15:00 INDICATION: Shortness of breath. TECHNIQUE: 5.23 mCi Tc-99m MAA was administered intravenously for perfusion images. Scintigraphic im ages of the chest were obtained. COMPARISON: Chest 2 views 04/23/2022, perfusion imaging 07/30/2021 FINDINGS: Perfusion images show matched moderate sized and large defects in the lower lobes. There are small de fects in the upper lobes. IMPRESSION: 1. Nondiagnostic (intermediate probability for pulmonary embolism). Reviewed, dictated and finalized at location A. 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
--- NOTE | ~2022-04-23 | XR_ITS ---
EXAMINATION: XR chest 2V DATE: 04/23/2022 13:29 INDICATION: Shortness of breath. TECHNIQUE: Frontal and lateral views of the chest were obtained on 3 radiographs. COMPARISON: Chest single view 09/04/2021, CT abdomen and pelvis 03/02/2022 FINDINGS: There is a diffuse interstitial pattern, consistent with mild pulmonary edema. There are sm all pleural effusions. No pneumothorax. Cardiomegaly is noted. There is a left chest pacer with lead in right ventricle. IMPRESSION: 1. Mild pulmonary edema. 2. Small pleural effusions. 3. Cardiomegaly. Reviewed, dictated and finalized at location A. 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
--- NOTE | 2022-04-23 12:18 | ECG_ITS ---
Measurements Intervals [place] Rate: 86 P: UT: 0 QRS: -64 QRSD: 118 T: 124 QT: 391 QTc: 468 Interpretive Statements ATRIAL FIBRILLATION LEFT ANTERIOR FASCICULAR BLOCK CANNOT RULE OUT SEPTAL INFARCT, AGE INDETERMINATE ST-T WAVE ABNORMALITY IN HIGH LATERAL LEADS- CONSIDER ISCHEMIA BASELINE ARTIFACT- I, II, III, AVR, AVL, AVF, V1-V3 ABNORMAL ECG COMPARED TO ECG 09/04/2021 14:07:00 LEFT ANTERIOR FASCICULAR BLOCK NOW PRESENT Electronically Signed On 04-23-2022 12:55:38 SLATE ROOFER by Rl Macias D.O.
--- NOTE | 2022-04-23 12:31 | ED.GENADULT ---
HPI - General Adult General Chief complaint: Shortness of Breath/Dyspnea Stated complaint: shortness of breath, pain in back Time Seen by Provider: 04/23/22 12:21 History of Present Illness HPI narrative: 72-year-old male with history of chronic atrial fibrillation, CHF, COPD, current smoker presents emerged department for evaluation of worsening shortness of breath over the last 2 weeks. Patient states that symptoms that started 2 weeks ago. Patient has completed a course of azithromycin that was prescribed by his family doctor. Patient reports no change in his symptoms. Patient reports that he has not been smoking heavily since this illness started. Patient states he is having some intermittent chest pain. Patient denies any prior history of coronary disease denies any current stents. Patient had been on Xarelto and Coumadin previously but is unsure of his current anticoagulation. Patient reports he does take an aspirin. EMR shows a discharge summary on 09/09/2021 during which he had his apixaban stopped due to bleeding. This is not appear to have been restarted as outpatient. Related Data Home Medications Medication Instructions Recorded Confirmed albuterol sulfate 90 mcg/actuation 1 inh inhalation Q4H PRN SHORTNESS 04/23/20 09/04/21 aerosol inhaler (Ventolin HFA) OF BREATH alprazolam 1 mg tablet (Xanax) 1 mg PO BID PRN Anxiety 04/23/20 09/04/21 carisoprodol 350 mg tablet (Soma) 350 mg PO BID PRN Muscle Spasm 04/23/20 09/04/21 citalopram 20 mg tablet (Celexa) 20 mg PO HS 04/23/20 09/04/21 ergocalciferol (vitamin D2) 1,250 1,250 mcg PO WEEKLY 04/23/20 09/04/21 mcg (50,000 unit) capsule metoprolol succinate 200 mg 200 mg PO DAILY 04/23/20 09/04/21 tablet,extended release 24 hr (Toprol XL) oxycodone-acetaminophen 10 mg-325 1 tablet PO Q6H PRN PAIN 4-10 04/23/20 09/04/21 mg tablet (Percocet) simvastatin 10 mg tablet (Zocor) 10 mg PO HS 04/23/20 09/04/21 allopurinol 100 mg tablet 100 mg PO BID 09/04/21 09/04/21 calcitriol 0.25 mcg capsule 0.25 mcg PO DAILY 09/04/21 09/04/21 doxazosin 4 mg tablet 4 mg PO DAILY 09/04/21 09/04/21 icosapent ethyl 1 gram capsule 2 g PO BID 09/04/21 09/04/21 (Vascepa) ondansetron HCl 4 mg tablet 4 mg PO DAILY 09/04/21 09/04/21 Allergies Allergy/AdvReac Type Severity Reaction Status Date / Time No Known Allergies Allergy Unknown Verified 09/04/21 12:22 Review of Systems Review of Systems: CONSTITUTIONAL: Denies fever, chills, or sweats. EYES: Denies visual changes, redness, or discharge. ENT: Denies rhinorrhea, congestion, sore throat, or otalgia. CARDIOVASCULAR: See HPI RESPIRATORY: See HPI GASTROINTESTINAL: Denies abdominal pain, nausea, vomiting, or diarrhea. GENITOURINARY: Denies dysuria or hematuria. SKIN: Denies rash or itching. MUSCULOSKELETAL: Denies back pain, joint pain, or myalgia. NEUROLOGIC: Denies headache, numbness, or weakness. [facility] Past Medical History Medical History Atrial fibrillation Cancer of kidney Status post partial right nephrectomy. Status post cryotherapy to the left kidney. Chronic back pain Chronic obstructive pulmonary disease Congestive heart failure Echocardiogram in April 2014 showed LV H with moderate global systolic function with an EF of 35% and moderate right ventricular dysfunction. 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 History of partial nephrectomy Right, for kidney cancer. History of skin graft Presence of combination internal cardiac defibrillator (ICD) and pacemaker Family History Family History (Reviewed 09/05/21 @ 10:59 by Cyril Ramos
[2022-04-23] MEDS: ALBUTEROL SULFATE NEB 2.5 MG/3 ML INH 5 MG INHALATION ×2 (12:41→20:47)
[2022-04-23 12:57] LABS: Basophils Absolute Auto 0.1 K/mm3 (0.0-0.1); Basophils Percent Auto 0.7 % (0.2-1.2); Eosinophils Absolute Auto 0.2 K/mm3 (0-0.3); Eosinophils Percent Auto 1.8 % (0-4.4); Hematocrit 36.3 % (42.0-52.0); Hemoglobin 11.8 g/dL (14.0-18.0); Immature Granulocyte Absolute 0.04 K/mm3 (0.00-0.031); Immature Granulocyte Percent A 0.5 % (0-0.5); Lymphocytes Absolute Auto 1.23 K/mm3 (0.9-3.2); Lymphocytes Percent Auto 15.1 % (18.3-44.2); Mean Corpuscular HGB Conc 32.5 g/dl (32-36); Mean Corpuscular Hemoglobin 30.1 pg (26-34); Mean Corpuscular Volume 92.6 fl (80-100); Mean Platelet Volume 9.2 fl (7.4-10.4); Monocytes Absolute Auto 0.4 K/mm3 (0.1-0.6); Monocytes Percent Auto 5.3 % (2.6-8.5); Neutrophils Absolute Auto 6.3 K/mm3 (1.3-6.7); Neutrophils Percent Auto 76.6 % (45.5-73.1); Platelet Count Result 138 k/mm3 (150-375); Red Blood Count 3.92 M/mm3 (4.6-6.20); White Blood Count 8.2 K/mm3 (4.5-10.0)
[2022-04-23 13:05] LABS: Alanine Aminotransferase 17 U/L (6-50); Albumin Level 3.8 g/dL (3.5-5.1); Alkaline Phosphatase 71 U/L (38-126); Anion Gap 8 mmol/L (8-16); Aspartate Amino Transferase 18 U/L (17-59); Bilirubin,Total 0.6 mg/dL (0.2-1.3); Blood Urea Nitrogen 62 mg/dL (9-20); Calcium 7.7 mg/dL (8.4-10.2); Carbon Dioxide 26 mmol/L (22-30); Chloride 105 mmol/L (98-107); Estimated CRCL calculation 17 ml/min; Estimated Glomerular Filt Rate 15; Glucose 93 mg/dL (65-110); Potassium 4.8 mmol/L (3.4-5.0); Sodium 139 mmol/L (137-145)
[2022-04-23 13:06] LABS: INR 1.2
[2022-04-23 13:07] LABS: Partial Thromboplastin Time 32.2 SECONDS (22.3-36.8)
[2022-04-23 13:12] LABS: Influenza A QL RT-PCR Negative (Negative); Influenza B QL RT-PCR Negative (Negative); RSV RNA, RT-PCR Negative (Negative); SARS-CoV-2 RNA PCR Negative
[2022-04-23 13:13] LABS: NT Pro B Type Natriuretic Pept 11000 pg/mL (19.9-100)
[2022-04-23 13:29] LABS: Troponin I 0.016 ng/mL (0.000-0.034)
[2022-04-23] MEDS: methylPREDNISolone SOD SUCC 125 MG VIAL IV PUSH (15:06)
[2022-04-23 16:16] LABS: Troponin I 0.023 ng/mL (0.000-0.034)
--- NOTE | 2022-04-23 18:27 | PM.IMHP ---
H&P: HPI History of Present Illness Date/Time: 04/23/22 18:27 Chief Complaint: Shortness of breath Narrative: This is a 72-year-old male patient who has a history of chronic atrial fibrillation, congestive heart failure and COPD. The patient came to the emergency room to be evaluated for shortness of breath. Patient stated that he has been having worsening shortness of breath over the last 2 weeks. The patient had a course of antibiotics that was prescribed by his primary care doctor. He had no change in his symptoms. The patient reports that he does take an aspirin. The patient had been on apixaban however on 09/09/2021 the patient had a GI bleed and his apixaban was stopped at that time. His H&H is 11.8 and 36.3. Platelets 138. Creatinine is 4.00 which has improved from previous readings. [place] blood [place] [address]. He is negative for influenza A/B and COVID. V/Q scan shows non diagnostic intermediate probability for pulmonary embolism. Chest x-ray was read as mild pulmonary edema. Small pleural effusions cardiomegaly. Initially the patient was given subcu Lovenox but given the patient has chronic renal failure he was changed to heparin drip. He was given a neb treatment, and Solu-Medrol. The patient is being admitted to inpatient status on the date of service of 04/23/2022. Review of Systems Review of Systems: See HPI All systems reviewed & are unremarkable except as noted in HPI and below Constitutional: Constitutional: Reports as per HPI and Reports no additional constitutional complaints Eyes: Eyes: Reports as per HPI and Reports no additional eye complaints ENT: Reports system reviewed and no additional complaints, except as documented and Reports Normal hearing present Cardiovascular: Cardiovascular: Reports no additional cardiovascular complaints Respiratory: Respiratory: Reports no additional respiratory complaints and Reports no additional respiratory complaints Gastrointestinal: Gastrointestinal: Reports as per HPI and Reports no additional gastrointestinal complaints Musculoskeletal: Musculoskeletal: Reports no additional musculoskeletal complaints Integumentary/Breasts: Skin/Breast: Reports system reviewed and no additional complaints, except as docu and Reports as per HPI Neurologic: Reports system reviewed and no additional complaints, except as documented, Reports as per HPI and Reports Normal hearing present Psychiatric: Psychiatric: Reports no additional psychiatric complaints and Reports as per HPI Endocrine: Endocrine: Reports no additional endocrine complaints Hematologic/Lymphatic: Hematologic/Lymphatic: Reports no additional hematologic/lymphatic complaints Allergic/Immunologic: Allergic/Immunologic: Reports no additional allergic/immunologic complaints [facility] Past Medical History Medical History (Updated 04/23/22 @ 23:17 by Pauline Segundo NP) Atrial fibrillation Cancer of kidney Status post partial right nephrectomy. Status post cryotherapy to the left kidney. Chronic back pain Chronic obstructive pulmonary disease Chronic renal failure (CRF), stage 4 (severe) Congestive heart failure Echocardiogram in April 2014 showed LV H with moderate global systolic function with an EF of 35% and moderate right ventricular dysfunction. 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 History of partial nephrectomy Right, for kidney cancer. nd partial left History of skin graft Presence of combination internal cardiac defibrillator (ICD) and pacemaker Family History Family History Sibling Brain cancer Fath
--- NOTE | 2022-04-23 19:20 | ADMGEN ---
This patient, Lencho Baker, was admitted to IMU Room 206-01 at 1842. Patient/family oriented to hospital policies and general routines including ID bracelet, bed and alarms, visiting hours, pain management, procedures, bathroom and other care routines, personal items, smoking policy, room service/diet, and visiting hours. Information on how to activate the Rapid Response Team has been discussed. Patient/Family are encouraged to report perceived risks to care and to ask questions if they do not understand what they are told or what they should do.
[2022-04-23] MEDS: HEPARIN SODIUM 5,000 UNITS/ML VIAL 7000 UNITS IV PUSH (20:54)
[2022-04-23] MEDS: HEPARIN SOD/D5W 100 UNITS/ML 25,000 UNITS/250 ML BAG 15 UNITS IV CONT (21:03)
[2022-04-23 21:30] LABS: Glucose Point of Care 292 mg/dl (65-105)
[2022-04-23] MEDS: ALPRAZolam (*CRX) 0.5 MG TABLET 1 MG PO (23:07)
[2022-04-23] MEDS: allopurinoL 100 MG TABLET PO (23:12)
[2022-04-23] MEDS: CITALOPRAM HYDROBROMIDE 20 MG TABLET PO (23:12)
[2022-04-23] MEDS: oxyCODONE/ACETAMINOPHEN (*CRX) 10-325 MG TABLET 1 TAB PO (23:13)
[2022-04-23] MEDS: SIMVASTATIN 10 MG TABLET PO (23:13)
[2022-04-23] MEDS: methylPREDNISolone SOD SUCC 125 MG VIAL 60 MG IV PUSH (23:20)
[2022-04-24] VITALS (24 sets, daily range): BP systolic 146–193; BP diastolic 74–100; PULSE 81–116; RESP 16–22; TEMP 36.1–36.7; O2SAT 95–99
--- NOTE | 2022-04-24 | ECHO_ITS ---
Patient Info Name: Lencho Baker Age: 72 years : 1950 Gender: Male Ht: 72 in Wt: 228 lbs BSA: 2.32 m2 HR: 78 bpm BP: 193 / 97 mmHg Heart Rhythm: Atrial Fibrillation Technical Quality: Fair Exam Date: 04/24/2022 8:56 AM Exam Location: [facility] Pulmonary Exam Room: [facility] Patient Status: Inpatient Admit Date: 04/23/2022 Staff Ordering Physician: Pauline Segundo NP Leadership Development Instructor: Pema Dash RDCS Attending Provider: Wicho Hawkins MD Referring Physician: Rtana GRACIA; Exam Type: CA echo doppler color flow Study Info Indications - chf copd afib aicd Complete two-dimensional, color flow and Doppler transthoracic echocardiogram is performed. Summary 1. Complete two-dimensional, color flow and Doppler transthoracic echocardiogram is performed. 2. Concentric left ventricular hypertrophy with preserved systolic function and diastolic noncompliance. 3. Left ventricular false cord noted. 4. Severe left atrial enlargement. 5. Mildly sclerotic aortic valve. 6. Pacemaker/ICD lead noted. Left Ventricle Left ventricular chamber dimension is normal. Left ventricular systolic function is normal, estimated at 50-55%. There is moderate concentric increased left ventricular wall thickness. The left ventricular diastolic function is grade I diastolic dysfunction. Right Ventricle Right ventricular chamber dimension is normal. Linear artifact in right ventricle suggestive of catheter(s), pacemaker lead(s), or ICD lead(s). Left Atria Left atrial chamber dimension is severely enlarged. Right Atria Right atrial chamber dimension is mildly enlarged. Aortic Valve The aortic valve is trileaflet. There is mild aortic valve sclerosis. Pulmonic Valve The pulmonic valve is not well visualized. Mitral Valve The mitral valve has normal leaflets. There is trace mitral valve regurgitation. The mitral valve annulus is mildly calcified. Tricuspid Valve The tricuspid valve leaflets are normal. Pericardium/Pleural The pericardium appears normal. Aorta The aortic root size at the sinus of Valsalva is normal. Left Ventricular Outflow Tract Name Value Normal LVOT 2D LVOT Diameter 2.1 cm LVOT Doppler LVOT Peak Gradient 4 mmHg LVOT Mean Gradient 3 mmHg LVOT VTI 20 cm LVOT VTI/AV VTI Ratio 0.8 LVOT Stroke Volume 67 ml LVOT CO 16.3 l/min LVOT CI 7.0 l/min/m2 Pulmonic Valve Name Value Normal PV Doppler PV Peak Gradient 27 mmHg Mitral Valve Name Value Normal
[2022-04-24] MEDS: hydrALAZINE HCL 20 MG/ML VIAL 10 MG IV PUSH ×2 (01:31→05:21)
[2022-04-24 05:11] LABS: Basophils Percent Auto 0.2 % (0.2-1.2); Hematocrit 34.9 % (42.0-52.0); Hemoglobin 11.3 g/dL (14.0-18.0); Immature Granulocyte Absolute 0.04 K/mm3 (0.00-0.031); Immature Granulocyte Percent A 0.6 % (0-0.5); Lymphocytes Absolute Auto 0.34 K/mm3 (0.9-3.2); Lymphocytes Percent Auto 5.3 % (18.3-44.2); Mean Corpuscular HGB Conc 32.4 g/dl (32-36); Mean Corpuscular Hemoglobin 30.5 pg (26-34); Mean Corpuscular Volume 94.3 fl (80-100); Mean Platelet Volume 9.8 fl (7.4-10.4); Monocytes Percent Auto 0.6 % (2.6-8.5); Neutrophils Percent Auto 93.3 % (45.5-73.1); Platelet Count Result 128 k/mm3 (150-375); White Blood Count 6.5 K/mm3 (4.5-10.0)
[2022-04-24 05:22] LABS: Partial Thromboplastin Time 74.9 SECONDS (22.3-36.8)
[2022-04-24 05:29] LABS: Alanine Aminotransferase 20 U/L (6-50); Albumin Level 4.1 g/dL (3.5-5.1); Alkaline Phosphatase 65 U/L (38-126); Anion Gap 12 mmol/L (8-16); Aspartate Amino Transferase 19 U/L (17-59); Bilirubin,Total 0.6 mg/dL (0.2-1.3); Blood Urea Nitrogen 63 mg/dL (9-20); Calcium 7.7 mg/dL (8.4-10.2); Carbon Dioxide 19 mmol/L (22-30); Chloride 100 mmol/L (98-107); Estimated CRCL calculation 20 ml/min; Estimated Glomerular Filt Rate 15; Glucose 306 mg/dL (65-110); Magnesium 1.7 mg/dL (1.6-2.3); Potassium 4.3 mmol/L (3.4-5.0); Sodium 131 mmol/L (137-145)
[2022-04-24 05:31] LABS: Lactic Acid Reflex 3.3 mmol/L (0.7-2.0)
[2022-04-24 06:05] LABS: Hemoglobin A1C 5.5 % (<5.7)
[2022-04-24 06:19] LABS: Thyroid Stimulating Hormone Reflex 0.215 uIU/mL (0.465-4.68)
[2022-04-24] MEDS: methylPREDNISolone SOD SUCC 125 MG VIAL 60 MG IV PUSH ×3 (06:40→17:15)
[2022-04-24] MEDS: ALPRAZolam (*CRX) 0.5 MG TABLET 1 MG PO ×2 (06:55→20:36)
[2022-04-24] MEDS: carisoprodoL (*CRX) 350 MG TABLET PO ×2 (06:55→20:36)
[2022-04-24 08:05] LABS: Reflex Lactic Acid Yes or No Add Lactic
[2022-04-24 08:09] LABS: Glucose Point of Care 267 mg/dl (65-105)
[2022-04-24] MEDS: lisinopriL 20 MG TABLET 40 MG PO (08:22)
[2022-04-24] MEDS: FENOFIBRATE,MICRONIZED 48 MG TABLET PO (08:22)
[2022-04-24] MEDS: ASPIRIN 81 MG CHEWABLE TABLET PO (08:23)
[2022-04-24] MEDS: METOPROLOL SUCCINATE EXT REL 100 MG TABCR 200 MG PO (08:23)
[2022-04-24] MEDS: allopurinoL 100 MG TABLET PO ×2 (08:24→17:14)
[2022-04-24] MEDS: calcitrioL 0.25 MCG CAPSULE PO (08:24)
[2022-04-24] MEDS: DOXAZOSIN MESYLATE 4 MG TABLET PO (08:24)
[2022-04-24] MEDS: ALBUTEROL SULFATE NEB 2.5 MG/3 ML INH 5 MG INHALATION ×3 (09:48→20:47)
[2022-04-24] MEDS: IPRATROPIUM BR 0.02% INH SOLN 0.5 MG/2.5 ML VIAL INHALATION ×3 (09:48→20:47)
[2022-04-24 09:57] LABS: Lactic Acid 2.7 mmol/L (0.7-2.0)
[2022-04-24 11:58] LABS: Glucose Point of Care 260 mg/dl (65-105)
[2022-04-24] MEDS: oxyCODONE/ACETAMINOPHEN (*CRX) 10-325 MG TABLET 1 TAB PO ×2 (12:07→20:37)
--- NOTE | 2022-04-24 12:25 | PM.CNNEP ---
Assessment and Plan Assessment and plan (1) CKD stage 4 due to type 1 diabetes mellitus: Code(s): E10.22 - Type 1 diabetes mellitus with diabetic chronic kidney disease; N18.4 - Chronic kidney disease, stage 4 (severe) Status: Acute Assessment and Plan: the patient has chronic kidney disease stage 4. He is followed by Dr. Ferreira for this at [facility]. His creatinine was elevated back in August when he was here. at that time his creatinine started out at 8.4 and improved with Treatment down to 4.9. now the creatinine is 4 yesterday and 3.9 today so it is actually better than it was when he left in August. this is probably his baseline. At this point he has volume overload so we will give him diuretics. (2) Congestive heart failure: Code(s): I50.9 - Heart failure, unspecified Status: Acute Assessment and Plan: The patient has volume overload by chest x-ray and by exam. He has a diagnosis of congestive heart failure on the chart however his echo in August showed an EF of 45-50%, only mildly reduced. His valves look okay, however his left and right atrial chambers are both enlarged. He of course has atrial fibrillation which does reduce the ejection fraction as well. The volume overload may be partly the heart and partly the kidneys. He may also have problems with salt indiscretion at home. At this point will put him on a low-salt diet. Will give him diuretics. He is on doxazosin. Will stop this and watch his blood pressure. 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 (4) Atrial fibrillation: Code(s): I48.91 - Unspecified atrial fibrillation Status: Acute Assessment and Plan: Heart rate on the high side. May improve with diuretics (5) Hyperlipemia: Code(s): E78.5 - Hyperlipidemia, unspecified Status: Acute Assessment and Plan: he is on simvastatin History of Present Illness Reason for Consult Consult date: 04/24/22 Chief Complaint Chief complaint: COPD/CHF/Possible PE History of Present Illness Narrative: Bj is a very pleasant 72-year-old gentleman who has multiple medical problems including COPD and he still smokes, chronic kidney disease stage 4 under the care of Dr. Branch, congestive heart failure with an EF of 35%, hypertension, diabetes, hyperlipidemia, cancer of the kidney status post partial right nephrectomy and cryotherapy of the left kidney, and atrial fibrillation. the patient says he was well until about a week ago when he started getting mildly short of breath. He also had a cough and a runny nose. He says that he had some chest pain when he was short of breath as well. He did not run any fevers. Nobody else in the house has had upper respiratory issues. He says that a lady comes to help him every day and couple days ago she went into the hospital with belly issues but did not have any respiratory issues that he knows of. He says his shortness or if his gradually gotten worse over the last week. On the day of admission he could barely walk from 1 room to the next without significant shortness of breath. So he came to the emergency room. The patient was seen in the emergency room. V/Q scan was indeterminate because of his COPD. Chest x-ray showed volume overload. He was treated with anticoagulants. He had been on apixaban anyway for his atrial fibrillation so he was placed back on this. His outpatient antihypertensives were continued. He was given Solu-Medrol and some nebulizers and his breathing is better. Review of Systems Constitutional: Constitutional: Reports no additional constitutional complaints Eyes: Eyes: Reports no additional eye complaints ENT: Reports system reviewed and no add
[2022-04-24] MEDS: APIXABAN 5 MG TABLET PO (12:41)
--- NOTE | 2022-04-24 13:33 | PM.IMPN ---
Progress Note: A&P Assessment and Plan (1) Pulmonary embolism: Qualifiers: Acute cor pulmonale presence: unspecified Chronicity: unspecified Pulmonary embolism type: unspecified Qualified Code(s): I26.99 - Other pulmonary embolism without acute cor pulmonale Code(s): I26.99 - Other pulmonary embolism without acute cor pulmonale Status: Acute Assessment and Plan: -the patient had a V/Q scan because of his renal function he was not able to have a CT a pulmonary. The V/Q scan was nondiagnostic intermediate probability for pulmonary embolism. Will check D-dimer. Overall low suspicion of PE, will stop Eliquis (2) COPD (chronic obstructive pulmonary disease): Qualifiers: COPD type: unspecified COPD Qualified Code(s): J44.9 - Chronic obstructive pulmonary disease, unspecified Code(s): J44.9 - Chronic obstructive pulmonary disease, unspecified Status: Acute Assessment and Plan: -the patient was hypoxic and is wearing oxygen at 2 L per nasal cannula. -He does not wear home oxygen -continue with nebulizer treatments. -the patient had been given azithromycin outpatient. (3) CHF (congestive heart failure): Qualifiers: Heart failure chronicity: unspecified Heart failure type: unspecified Qualified Code(s): I50.9 - Heart failure, unspecified Code(s): I50.9 - Heart failure, unspecified Status: Acute Assessment and Plan: -the patient had an echo on 09/05/2021 which his EF was estimated to be 45-50%. -continue with lisinopril -continue with metoprolol (4) Tobacco dependence: Code(s): F17.200 - Nicotine dependence, unspecified, uncomplicated Status: Acute Assessment and Plan: -I spoke to the patient for approximately 5 minutes concerning smoking cessation. Data patient stated he will hold off on any nicotine patch at this time. 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 -check A1c -continue with glimepiride (6) Chronic renal failure (CRF), stage 4 (severe): Code(s): N18.4 - Chronic kidney disease, stage 4 (severe) Status: Acute Assessment and Plan: The patient sees Dr. Edward here. His creatinine today is less than his baseline. (7) Hyperlipemia: Code(s): E78.5 - Hyperlipidemia, unspecified Status: Acute Assessment and Plan: -continue with fenofibrate and Zocor -check liver enzymes. Subjective Date/time seen: 04/24/22 13:33 Exam Const: General: cooperative, healthy appearing, comfortable, no acute distress, well developed, alert, awake, Physically active, average body habitus and well nourished Nutritional Appearance: average body habitus and well nourished Orientation/consciousness: oriented to person, oriented to place, oriented to time and patient oriented x3 Limitations: no limitations HENMT: Head: normal to inspection, No palpable skull fracture present, normocephalic and atraumatic Ears: hearing grossly normal bilaterally and external ears normal Face/Nose/Sinus: Normal external nose present and Normal nares present Eyes: General: appearance normal, both eyes and all related structures Alignment and Position: alignment normal Periorbital: periorbital findings normal Eyelids: eyelids normal Sclera: sclerae normal Pupils: Equal, round and reactive pupils present EOM: EOMs intact bilaterally Neck: Neck: normal visual inspection, full ROM, no lymphadenopathy, trachea midline and supple Chest: Chest palpation & inspection: normal inspection of the chest Resp: Effort & Inspection: normal respiratory effort Auscultation: wheezes Cardio: Palpation: normal PMI Rate: regular rate Rhythm: abnormal rhythm Heart sounds: S1 ruth
[2022-04-24 15:47] LABS: D Dimer 1.73 ug/mL (<0.48)
[2022-04-24 15:57] LABS: Uric Acid 6.9 mg/dL (3.5-8.5)
[2022-04-24 16:22] LABS: Glucose Point of Care 215 mg/dl (65-105)
[2022-04-24] MEDS: BUMETANIDE INJ 1 MG/4 ML VIAL IV PUSH (17:15)
[2022-04-24 19:23] LABS: Free T4 Free Thyroxine Reflex 1.25 ng/dL (0.78-2.19)
[2022-04-24 19:54] LABS: Glucose Point of Care 275 mg/dl (65-105)
[2022-04-24] MEDS: SIMVASTATIN 10 MG TABLET PO (20:36)
[2022-04-24] MEDS: CITALOPRAM HYDROBROMIDE 20 MG TABLET PO (20:36)
[2022-04-25] VITALS (13 sets, daily range): BP systolic 165–177; BP diastolic 80–107; PULSE 93–111; RESP 14–20; TEMP 36.1–36.6; O2SAT 93–98
[2022-04-25] MEDS: methylPREDNISolone SOD SUCC 125 MG VIAL 60 MG IV PUSH ×3 (00:13→12:15)
[2022-04-25] MEDS: hydrALAZINE HCL 20 MG/ML VIAL 10 MG IV PUSH (00:13)
[2022-04-25] MEDS: IPRATROPIUM BR 0.02% INH SOLN 0.5 MG/2.5 ML VIAL INHALATION ×2 (02:20→08:54)
[2022-04-25] MEDS: ALBUTEROL SULFATE NEB 2.5 MG/3 ML INH 5 MG INHALATION ×2 (02:23→08:54)
[2022-04-25 04:17] LABS: Hemoglobin 10.8 g/dL (14.0-18.0); Immature Granulocyte Absolute 0.08 K/mm3 (0.00-0.031); Immature Granulocyte Percent A 0.7 % (0-0.5); Lymphocytes Absolute Auto 0.41 K/mm3 (0.9-3.2); Lymphocytes Percent Auto 3.5 % (18.3-44.2); Mean Corpuscular HGB Conc 32.7 g/dl (32-36); Mean Corpuscular Hemoglobin 30.3 pg (26-34); Mean Corpuscular Volume 92.4 fl (80-100); Mean Platelet Volume 9.9 fl (7.4-10.4); Monocytes Absolute Auto 0.1 K/mm3 (0.1-0.6); Monocytes Percent Auto 1.1 % (2.6-8.5); Neutrophils Percent Auto 94.7 % (45.5-73.1); Platelet Count Result 114 k/mm3 (150-375); Red Blood Count 3.57 M/mm3 (4.6-6.20); Red Cell Distribution Width 14.1 % (11.5-14.5); White Blood Count 11.6 K/mm3 (4.5-10.0)
[2022-04-25 04:29] LABS: Albumin Level 3.8 g/dL (3.5-5.1); Anion Gap 10 mmol/L (8-16); Blood Urea Nitrogen 74 mg/dL (9-20); Calcium 7.5 mg/dL (8.4-10.2); Carbon Dioxide 21 mmol/L (22-30); Chloride 100 mmol/L (98-107); Estimated CRCL calculation 20 ml/min; Estimated Glomerular Filt Rate 15; Glucose 249 mg/dL (65-110); Phosphorus 4.1 mg/dL (2.5-4.5); Potassium 4.5 mmol/L (3.4-5.0); Sodium 131 mmol/L (137-145)
[2022-04-25 05:15] LABS: Total Triiodothyronine (T3) 0.73 NG/ML (0.97-1.69)
[2022-04-25] MEDS: carisoprodoL (*CRX) 350 MG TABLET PO (07:50)
[2022-04-25] MEDS: METOPROLOL SUCCINATE EXT REL 100 MG TABCR 200 MG PO (07:50)
[2022-04-25] MEDS: lisinopriL 20 MG TABLET 40 MG PO (07:51)
[2022-04-25] MEDS: ASPIRIN 81 MG CHEWABLE TABLET PO (07:51)
[2022-04-25] MEDS: FENOFIBRATE,MICRONIZED 48 MG TABLET PO (07:52)
[2022-04-25] MEDS: calcitrioL 0.25 MCG CAPSULE PO (07:52)
[2022-04-25] MEDS: BUMETANIDE INJ 1 MG/4 ML VIAL IV PUSH (07:53)
[2022-04-25] MEDS: allopurinoL 100 MG TABLET PO (07:53)
[2022-04-25 08:16] LABS: Glucose Point of Care 206 mg/dl (65-105)
[2022-04-25] MEDS: oxyCODONE/ACETAMINOPHEN (*CRX) 10-325 MG TABLET 1 TAB PO (09:26)
[2022-04-25] MEDS: ALPRAZolam (*CRX) 0.5 MG TABLET 1 MG PO (09:27)
--- NOTE | 2022-04-25 09:47 | PM.PNNEP ---
Progress Note: A&P Assessment and Plan (1) CKD stage 4 due to type 1 diabetes mellitus: Code(s): E10.22 - Type 1 diabetes mellitus with diabetic chronic kidney disease; N18.4 - Chronic kidney disease, stage 4 (severe) Status: Acute Assessment and Plan: the patient has chronic kidney disease stage 4. He is followed by Dr. Ferreira for this at [facility]. His creatinine is at baseline. this is probably his baseline. At this point he has volume overload so we will give him diuretics. (2) Congestive heart failure: Code(s): I50.9 - Heart failure, unspecified Status: Acute Assessment and Plan: The patient has volume overload by chest x-ray and by exam. He has a diagnosis of congestive heart failure on the chart however his echo in August showed an EF of 45-50%, only mildly reduced. His valves look okay, however his left and right atrial chambers are both enlarged. He of course has atrial fibrillation which does reduce the ejection fraction as well. Urine output was not recorded by the nurses last night, however he says he made lots of urine. He just walked to the bathroom and urinated into the commode without saving. Talked to him about starting to save urine. Creatinine is about the same today. Will continue diuretics (3) Insulin dependent type 2 diabetes mellitus: Code(s): E11.9 - Type 2 diabetes mellitus without complications; Z79.4 - postulant (current) use of insulin Status: Acute Assessment and Plan: Management per hospitalists. (4) Atrial fibrillation: Code(s): I48.91 - Unspecified atrial fibrillation Status: Acute Assessment and Plan: Heart rate on the high side. May improve with diuretics (5) Hyperlipemia: Code(s): E78.5 - Hyperlipidemia, unspecified Status: Acute Assessment and Plan: he is on simvastatin (6) Essential (primary) hypertension: Code(s): I10 - Essential (primary) hypertension Status: Acute Assessment and Plan: blood pressure is high. Part of this may be fluid and removing the fluid might help his blood pressure. However we are limited by his creatinine as far as how much fluid we can remove. He is off the doxazosin now. He should probably stay off of this because of the congestive heart failure. He is on hydralazine, metoprolol, lisinopril. Will add diltiazem since he needs more rate control any way. Subjective Date/time seen: 04/25/22 09:47 Interval history: Lencho is getting a breathing treatment now. He feels so much better today than he did yesterday. He is eager for discharge Review of Systems Cardiovascular: Cardiovascular: Reports no additional cardiovascular complaints Respiratory: Respiratory: Reports no additional respiratory complaints Gastrointestinal: Gastrointestinal: Reports no additional gastrointestinal complaints Genitourinary: Genitourinary: Reports no additional male genitourinary complaints Exam Narrative: WDWN in NAD skin no rash head ncat lungs mildly coarse, less so than yesterday. cor reg no rub abd BS+ nontender and soft ext no edema. Objective Data Vital Signs Vital Signs: Vital Signs - 24 hr 04/24/22 09:55 04/24/22 10:09 04/24/22 12:00 Temperature 97 F L Pulse Rate 82 97 Respiratory Rate 16 18 Blood Pressure 154/79 H Pulse Oximetry 95 99 Oxygen Delivery Nasal Cannula Oxygen Flow Rate 3 04/24/22 14:11 04/24/22 14:36 04/24/22 10:00 Temperature Pulse Rate 84 81 104 H Respiratory Rate 16 16 Blood Pressure Pulse Oximetry Oxygen Delivery Oxygen Flow Rate 04/24/22 12:00 04/24/22 14:00 04/24/22 15:51 Temperature 97.1 F L Pulse Rate 97 110 H 92 Respiratory Rate 16 Blood Pressure 146/74 H Pulse Oximetry 95 Oxygen Delivery Oxygen Flow Rate 04/24/22 12:00 04/24/22 16:00 04/24/22 16:00 Temperature Pulse Rate 92
--- NOTE | 2022-04-25 11:20 | PM.DS ---
DS: Admitting Diagnosis Discharge Date April 25, 2022 Admitting Diagnosis COPD, hypertension, AFib DS: Discharge Diagnosis Discharge Diagnosis (1) Pulmonary embolism: Qualifiers: Acute cor pulmonale presence: unspecified Chronicity: unspecified Pulmonary embolism type: unspecified Qualified Code(s): I26.99 - Other pulmonary embolism without acute cor pulmonale Code(s): I26.99 - Other pulmonary embolism without acute cor pulmonale Status: Acute Assessment and Plan: -the patient had a V/Q scan because of his renal function he was not able to have a CT a pulmonary. The V/Q scan was nondiagnostic intermediate probability for pulmonary embolism. Will check D-dimer. Overall low suspicion of PE, will stop Eliquis (2) COPD (chronic obstructive pulmonary disease): Qualifiers: COPD type: unspecified COPD Qualified Code(s): J44.9 - Chronic obstructive pulmonary disease, unspecified Code(s): J44.9 - Chronic obstructive pulmonary disease, unspecified Status: Acute Assessment and Plan: -the patient was hypoxic and is wearing oxygen at 2 L per nasal cannula. -He does not wear home oxygen -continue with nebulizer treatments. -the patient had been given azithromycin outpatient. (3) CHF (congestive heart failure): Qualifiers: Heart failure chronicity: unspecified Heart failure type: unspecified Qualified Code(s): I50.9 - Heart failure, unspecified Code(s): I50.9 - Heart failure, unspecified Status: Acute Assessment and Plan: -the patient had an echo on 09/05/2021 which his EF was estimated to be 45-50%. -continue with lisinopril -continue with metoprolol (4) Tobacco dependence: Code(s): F17.200 - Nicotine dependence, unspecified, uncomplicated Status: Acute Assessment and Plan: -I spoke to the patient for approximately 5 minutes concerning smoking cessation. Data patient stated he will hold off on any nicotine patch at this time. 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 -check A1c -continue with glimepiride (6) Chronic renal failure (CRF), stage 4 (severe): Code(s): N18.4 - Chronic kidney disease, stage 4 (severe) Status: Acute Assessment and Plan: The patient sees Dr. Edward here. His creatinine today is less than his baseline. (7) Hyperlipemia: Code(s): E78.5 - Hyperlipidemia, unspecified Status: Acute Assessment and Plan: -continue with fenofibrate and Zocor -check liver enzymes. DS: Summary Hospital Course Hospital Course: Patient is a 72-year-old gentleman came with some shortness of breath. He was evaluated in the ED and felt to have COPD exacerbation. He did a V/Q scan which is an intermediate for PE. His D-dimer was actually lower than was previously. I do not think the patient had a PE so any anticoagulation was stopped. He has a history of significant for GI bleed on anticoagulation past. Nonetheless nephrology was consulte for chronic kidney disease. His baseline creatinine is probably around 3.9. Patient is doing much better from a respiratory standpoint. He reports he is back to his baseline. His blood pressure medications were adjusted. Not start any aggressive diuretic therapy discharge as patient does have significant kidney issues. He also appears to be euvolemic currently. Time Spent with Patient Time attestation: Total time spent providing and/or coordinating discharge services: Exam Const: General: cooperative, healthy appearing, comfortable, no acute distress, well developed, alert, awake, Physically active, average body habitus and well nourished Nutritional Appearance: average body habitus and well nou
[2022-04-25 12:47] LABS: Glucose Point of Care 253 mg/dl (65-105)
== END 2022-04-25 12:56 | disposition home or self-care (01) | DRG 191 ==
LOC: ANHED 16:00 → ANHIMU 17:36
PROVIDERS: Emergency Medicine; Internal Medicine Nephrology; Nurse Practitioner; Admitting Provider Chiropractor; Emergency Provider Emergency Medicine; PCP Emergency Medicine; Visit Provider Chiropractor
DX: J44.1 Chronic obstructive pulmonary disease with (acute) exacerbation (principal); I13.0 Hypertensive heart and chronic kidney disease with heart failure and stage 1 through stage 4 chronic kidney disease, or unspecified chronic kidney disease; N18.4 Chronic kidney disease, stage 4 (severe); I50.22 Chronic systolic (congestive) heart failure; J44.9 Chronic obstructive pulmonary disease, unspecified; F17.210 Nicotine dependence, cigarettes, uncomplicated; Z79.4 Long term (current) use of insulin; E78.5 Hyperlipidemia, unspecified; R09.02 Hypoxemia; E11.22 Type 2 diabetes mellitus with diabetic chronic kidney disease; Z20.822 Contact with and (suspected) exposure to COVID-19; Z79.899 Other long term (current) drug therapy
CPT/HCPCS: 36415; 71046; 78580; 80053; 80069; 82948; 83036; 83605; 83735; 83880; 84439; 84443; 84480; 84484; 84550; 85025; 85380; 85610; 85730; 87637; 93005; 93306; 94640; 96374; 99285; A9270; A9540; J0360; J1644; J2930

== ENCOUNTER 2022-10-26 12:16 | Outpatient (CLI) | payer MEDICARE, OTHER, SELFPAY ==
--- NOTE | ~2022-10-26 | CT_ITS ---
EXAMINATION: CT lung screening DATE: 10/26/2022 12:41 INDICATION: HX OF NICOTINE DEPENDENCE TECHNIQUE: Computed tomography (CT) of the chest was performed without intravenous contrast. Addition al 3D reconstructions utilizing coronal maximum intensity projection (MIP) were performed. Automated exposure control and iterative reconstruction technique were employed. The dose-length product was 21 2.18 mGy-cm. COMPARISON: 07/31/2021 and 05/11/2021 FINDINGS: Mild discoid atelectasis in the bilateral lower lobes. Additional mild atelectasis at the medial aspe ct of the right middle lobe and lingula. Unchanged flat 5 mm intrafissural lymph node along the anter ior right minor fissure. 2 mm noncalcified left lower lobe nodule unchanged since 05/11/2021 Calcified right lower lobe nodule and calcified right hilar and mediastinal lymph nodes consistent with old gr anulomatous disease. No new pulmonary nodules, pneumonia, pulmonary edema or pleural effusion. Heart size is normal. Atherosclerotic coronary artery calcific lesion. No pericardial effusion. Single lead cardiac pacemaker/defibrillator with lead tip near the apex of the right ventricle. Thoracic aorta i s normal in caliber. No pathologically enlarged thoracic lymphadenopathy. Splenic calcification consi stent with old granulomatous disease. IMPRESSION: 1. Lung-RADS category 2: Benign appearance or behavior. Continue annual screening with noncontrast lo w-dose chest CT in 12 months. Reviewed, dictated and finalized at location L. IMPRESSION: 1. Lung-RADS category 2: Benign appearance or behavior. Continue annual screeni ng with noncontrast low-dose chest CT in 12 months.
== END 2022-10-26 12:17 | disposition home or self-care (01) ==
PROVIDERS: PCP Emergency Medicine; Visit Provider Emergency Medicine
DX: Z12.2 Encounter for screening for malignant neoplasm of respiratory organs (principal); Z87.891 Personal history of nicotine dependence
CPT/HCPCS: 71271

== ENCOUNTER 2023-01-31 00:54 | Day surgery (SDC) | payer MEDICARE, SELFPAY ==
[2023-01-19 14:57] VITALS: BMI 27.1
--- NOTE | 2023-01-28 10:40 | SUR.PREOP ---
Patient called regarding upcoming procedure. Reviewed preop instructions, appointment times, and procedure prep.
[2023-01-31 10:27] VITALS: BP 139/67; PULSE 72; RESP 20; TEMP 35.9; O2SAT 94; BMI 28.0
[2023-01-31] MEDS: SODIUM CHLORIDE 0.9% IV 500 ML 10 ML IV CONT (10:38)
[2023-01-31 10:46] LABS: Glucose Point of Care 96 mg/dl (65-105)
--- NOTE | 2023-01-31 10:51 | WPDANESEPPF ---
Anes - Initial Pre Proc Eval Procedure: Operation Date: 01/31/23 11:30 Proposed Procedures p Colonoscopy - Mich Oneal MD Date/Time: 01/31/23 10:51 Surgeon: Mich Oneal MD Pre Op Diagnosis: HX colon polyps Patient Data Age: 72 Gender: M Height: 1.83 m Weight: 93.8 kg Last Vital Signs Temp 96.7 F L 01/31/23 10:27 Pulse 72 01/31/23 10:27 Resp 20 01/31/23 10:27 BP 139/67 01/31/23 10:27 Pulse Ox 94 01/31/23 10:27 O2 Del Method Room Air 01/31/23 10:27 Allergies Allergy/AdvReac Type Severity Reaction Status Date / Time codeine Allergy Hives Verified 01/31/23 10:25 Home Medications Medication Instructions Recorded Confirmed Type alprazolam 1 mg tablet (Xanax) 1 mg PO BID PRN Anxiety 04/23/20 01/19/23 History carisoprodol 350 mg tablet (Soma) 350 mg PO BID PRN Muscle Spasm 04/23/20 01/19/23 History citalopram 20 mg tablet (Celexa) 20 mg PO HS 04/23/20 01/19/23 History ergocalciferol (vitamin D2) 1,250 1,250 mcg PO WEEKLY 04/23/20 01/19/23 History mcg (50,000 unit) capsule metoprolol succinate 200 mg 200 mg PO DAILY 04/23/20 01/19/23 History tablet,extended release 24 hr (Toprol XL) oxycodone-acetaminophen 10 mg-325 1 tablet PO Q6H PRN PAIN 4-10 04/23/20 01/19/23 History mg tablet (Percocet) simvastatin 10 mg tablet (Zocor) 10 mg PO HS 04/23/20 01/19/23 History allopurinol 100 mg tablet 100 mg PO BID 09/04/21 01/19/23 History calcitriol 0.25 mcg capsule 0.25 mcg PO DAILY 09/04/21 01/19/23 History aspirin 81 mg tablet 81 mg PO DAILY 04/23/22 01/19/23 History fenofibrate 54 mg tablet 54 mg PO DAILY 04/23/22 01/19/23 History glimepiride 4 mg tablet 4 mg PO BIDWM 04/23/22 01/19/23 History ipratropium bromide 17 1 inh inhalation Q6H 04/23/22 01/19/23 History mcg/actuation HFA aerosol inhaler (Atrovent HFA) lisinopril 40 mg tablet 40 mg PO DAILY 04/23/22 01/19/23 History pen needle, diabetic 32 gauge x 01/19/23 History (BD Brittny 2nd Gen Pen Needle) Laboratory Tests 01/31/23 10:36 POC Capillary Glucose 96 mg/dl (65-105) Patient hx anesthesia problems: none Family hx anesthesia problems: none Results Review: All pre-operative results and documents have been reviewed as part of the pre-operative evaluation. [facility] Past Medical History Medical History Atrial fibrillation Cancer of kidney Status post partial right nephrectomy. Status post cryotherapy to the left kidney. Chronic back pain Chronic obstructive pulmonary disease Chronic renal failure (CRF), stage 4 (severe) Congestive heart failure Echocardiogram in April 2014 showed LV H with moderate global systolic function with an EF of 35% and moderate right ventricular dysfunction. 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 History of partial nephrectomy Right, for kidney cancer. nd partial left History of skin graft Presence of combination internal cardiac defibrillator (ICD) and pacemaker Family History Family History Sibling Brain cancer Father Diabetes mellitus Coronary artery disease Mother Alzheimer disease Social History Social History Social History: The left alone and is . He has retired from [employer]. He served in the [employer]. He is down to 1/2 ppk a cigarettes a day Surrogate decision maker: Omid Baker, son. Code status: Full code. Smoking packs per day: 0.5 Smoking cigarettes per day: 10.0 Years smoked:
--- NOTE | 2023-01-31 10:52 | PM.HPGS ---
History of Present Illness History of Present Illness Consent: Risks, benefits, and alternatives have been discussed and questions answered. Patient agrees to proceed with procedure. Chief complaint: HX colon polyps Narrative: Lencho Baker is a 72 year old male with colon polyps about 3-4 years ago Review of Systems Constitutional: Constitutional: Denies headache(s) and Denies weakness Eyes: Eyes: Denies blurry vision ENT: Reports Normal hearing present, Denies headache(s) and Denies neck pain Cardiovascular: Cardiovascular: Denies chest pain and Denies dyspnea Respiratory: Respiratory: Denies dyspnea Gastrointestinal: Gastrointestinal: Reports no additional gastrointestinal complaints Genitourinary: Genitourinary: Denies dysuria Musculoskeletal: Musculoskeletal: Denies neck pain Integumentary/Breasts: Skin/Breast: Denies dry skin Neurologic: Reports Normal hearing present, Denies headache(s) and Denies weakness Psychiatric: Psychiatric: Denies anxiety Endocrine: Endocrine: Denies change in body appearance Hematologic/Lymphatic: Hematologic/Lymphatic: Denies easy bleeding Allergic/Immunologic: Allergic/Immunologic: Denies urticaria PMFSH Past Medical History Medical History (Updated 01/31/23 @ 10:53 by Mich Oneal MD) Atrial fibrillation Cancer of kidney Status post partial right nephrectomy. Status post cryotherapy to the left kidney. Chronic back pain Chronic obstructive pulmonary disease Chronic renal failure (CRF), stage 4 (severe) Colon polyp Congestive heart failure Echocardiogram in April 2014 showed LV H with moderate global systolic function with an EF of 35% and moderate right ventricular dysfunction. 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 History of partial nephrectomy Right, for kidney cancer. nd partial left History of skin graft Presence of combination internal cardiac defibrillator (ICD) and pacemaker Family History Family History Sibling Brain cancer Father Diabetes mellitus Coronary artery disease Mother Alzheimer disease Social History Social History Social History: The left alone and is . He has retired from [employer]. He served in the [employer]. He is down to 1/2 ppk a cigarettes a day Surrogate decision maker: Omid Baker, son. Code status: Full code. Smoking packs per day: 0.5 Smoking cigarettes per day: 10.0 Years smoked: 55 Smoking pack-years: 27.50 Smoking status: Light tobacco smoker Tobacco type: cigarettes Second hand tobacco smoke exposure: Yes Alcohol intake: never Substance use: never Substance use type: does not use Lack of Transportation: YES Lack of Food: Sometimes True Current Housing: I Have Housing Concerned About Future Housing: No Difficulty Paying Gas/Electric Bills: No Difficulty Paying for Meds: No Currently Unemployed: No Education: Don't Know Difficulty w/ Childcare or Family Care: No Living arrangements: alone Additional occupation/education comments: Disabled. Spiritual care concerns: No Meds Home Medications and Allergies Home Medications Medication Instructions Recorded Confirmed Type alprazolam 1 mg tablet (Xanax) 1 mg PO BID PRN Anxiety 04/23/20 01/19/23 History carisoprodol 350 mg tablet (Soma) 350 mg PO BID PRN Muscle Spasm 04/23/20 01/19/23 History citalopram 20 mg tablet (Celexa) 20 mg PO HS 04/23/20 01/19/23 History ergocalciferol (vitamin D2) 1,250 1,250 mcg PO WEEKLY 04/23/2001/19
[2023-01-31 11:15] VITALS: BP 104/50; PULSE 86; RESP 23; O2SAT 95
[2023-01-31 11:25] VITALS: BP 98/37; PULSE 85; RESP 23; O2SAT 95
[2023-01-31 11:35] VITALS: BP 123/50; PULSE 78; RESP 20; O2SAT 96
== END 2023-01-31 11:48 | disposition home or self-care (01) ==
PROVIDERS: PCP Emergency Medicine; Visit Provider Internal Medicine Gastroenterology
PROC: 0DJD8ZZ Inspection of Lower Intestinal Tract, Via Natural or Artificial Opening Endoscopic (ICD-10-PCS; CPT 45378; principal; 2023-01-31 11:30)
DX: Z12.11 Encounter for screening for malignant neoplasm of colon (principal); D12.4 Benign neoplasm of descending colon; K64.8 Other hemorrhoids; K57.30 Diverticulosis of large intestine without perforation or abscess without bleeding; I13.0 Hypertensive heart and chronic kidney disease with heart failure and stage 1 through stage 4 chronic kidney disease, or unspecified chronic kidney disease; I50.9 Heart failure, unspecified; E11.22 Type 2 diabetes mellitus with diabetic chronic kidney disease; N18.4 Chronic kidney disease, stage 4 (severe); G89.29 Other chronic pain; J44.9 Chronic obstructive pulmonary disease, unspecified; E78.5 Hyperlipidemia, unspecified; Z90.5 Acquired absence of kidney; Z85.528 Personal history of other malignant neoplasm of kidney; Z80.0 Family history of malignant neoplasm of digestive organs; Z82.49 Family history of ischemic heart disease and other diseases of the circulatory system; F17.210 Nicotine dependence, cigarettes, uncomplicated; Z79.891 Long term (current) use of opiate analgesic; Z79.82 Long term (current) use of aspirin; Z79.84 Long term (current) use of oral hypoglycemic drugs; Z79.85 Long-term (current) use of injectable non-insulin antidiabetic drugs; Z95.810 Presence of automatic (implantable) cardiac defibrillator
CPT/HCPCS: 45385; 82948; 88305; J2704; J7040

== ENCOUNTER 2024-01-20 09:48 | Outpatient (CLI) | payer MEDICARE, SELFPAY ==
--- NOTE | ~2024-01-20 | CT_ITS ---
EXAMINATION:CT lung screening DATE: 01/20/2024 10:11 INDICATION: Personal history of tobacco dependence. Current smoker with 50 pack year history. TECHNIQUE: Computed tomography (CT) of the chest was performed without intravenous contrast. Automate d exposure control and iterative reconstruction technique were employed. The dose-length product (DLP ) was 241.43 mGy-cm. COMPARISON: Chest CT 10/26/2022 FINDINGS: There is a 4 mm nodule at minor fissure without change. A calcified right lung nodule and c alcified right hilar and paraesophageal lymph nodes are consistent with old granulomatous disease. Th ere is mild atelectasis in the left. No pleural effusion. Cardiomegaly is noted. There are coronary a rtery calcifications. No pericardial effusion. There is a left chest pacer with lead in right ventric le. There is a 2.2 cm cyst in right kidney. There is severe cervical spondylosis and mild thoracic sp ondylosis. IMPRESSION: 1. Lung-RADS category 2: Benign appearance or behavior. Continue annual screening with noncontrast lo w-dose chest CT in 12 months. Reviewed, dictated and finalized at location [facility]. IMPRESSION: 1. Lung-RADS category 2: Benign appearance or behavior. Continue annual screeni ng with noncontrast low-dose chest CT in 12 months.
== END 2024-01-20 09:49 | disposition home or self-care (01) ==
PROVIDERS: PCP Emergency Medicine; Visit Provider Emergency Medicine
DX: Z12.2 Encounter for screening for malignant neoplasm of respiratory organs (principal); Z87.891 Personal history of nicotine dependence
CPT/HCPCS: 71271

== ENCOUNTER 2024-05-01 09:03 | Emergency (ER) | payer MEDICARE, SELFPAY ==
--- NOTE | ~2024-05-01 | XR_ITS ---
EXAMINATION: XR chest 2V DATE: 05/01/2024 09:39 INDICATION: Cough. TECHNIQUE: Frontal and lateral views of the chest were obtained. COMPARISON: Chest 2 views 04/23/2022, chest CT 01/20/2024 FINDINGS: There is mild atelectasis in the right lower lung zone and the left mid and lower lung zone s. No pleural effusion or pneumothorax. The heart size is normal. There is a left chest pacer/defibri llator with lead in right ventricle. IMPRESSION: 1. Mild atelectasis in right lower lung zone and left mid and lower lung zones. Reviewed, dictated and finalized at location A. POL[facility]ER [facility]
[2024-05-01 09:12] VITALS: BP 154/64; PULSE 69; RESP 20; TEMP 37.4; O2SAT 95
--- NOTE | 2024-05-01 09:20 | ED_ITS ---
HPI - URI/Sore Throat General Chief Complaint: Upper Respiratory Infection Stated Complaint: fever Source: patient and RN notes reviewed Mode of arrival: ambulatory Limitations: no limitations History of Present Illness HPI Narrative: 74 y/o male with significant medical hx PE, CHF, COPD, afib, and renal failure on dialysis presented for c/o cough, fever and chills. Onset last night. Denies significant increase in sob. Denies n/v/d. Smokes 1/2ppd. Scheduled for dialysis. MD elicited complaint: cough Related Data Home Medications ?Medication ?Instructions ?Recorded ?Confirmed ?Last Taken ?Type alprazolam 1 mg tablet (Xanax) 1 mg PO BID PRN Anxiety 04/23/20 01/19/23 01/30/23 History carisoprodol 350 mg tablet (Soma) 350 mg PO BID PRN Muscle Spasm 04/23/20 01/19/23 01/30/23 History citalopram 20 mg tablet (Celexa) 20 mg PO HS 04/23/20 01/19/23 01/30/23 History ergocalciferol (vitamin D2) 1,250 1,250 mcg PO WEEKLY 04/23/20 01/19/23 01/30/23 History mcg (50,000 unit) capsule metoprolol succinate 200 mg 200 mg PO DAILY 04/23/20 01/19/23 01/31/23 History tablet,extended release 24 hr (Toprol XL) oxycodone-acetaminophen 10 mg-325 1 tablet PO Q6H PRN PAIN 4-10 04/23/20 01/19/23 01/31/23 History mg tablet (Percocet) simvastatin 10 mg tablet (Zocor) 10 mg PO HS 04/23/20 01/19/23 01/31/23 History allopurinol 100 mg tablet 100 mg PO BID 09/04/21 01/19/23 01/30/23 History calcitriol 0.25 mcg capsule 0.25 mcg PO DAILY 09/04/21 01/19/23 01/30/23 History aspirin 81 mg tablet 81 mg PO DAILY 04/23/22 01/19/23 01/31/23 History fenofibrate 54 mg tablet 54 mg PO DAILY 04/23/22 01/19/23 01/30/23 History glimepiride 4 mg tablet 4 mg PO BIDWM 04/23/22 01/19/23 01/30/23 History ipratropium bromide 17 1 inh inhalation Q6H 04/23/22 01/19/23 01/30/23 History mcg/actuation HFA aerosol inhaler (Atrovent HFA) lisinopril 40 mg tablet 40 mg PO DAILY 04/23/22 01/19/23 01/30/23 History pen needle, diabetic 32 gauge x 01/19/23 Unknown History (BD Brittny 2nd Gen Pen Needle) Allergies Allergy/AdvReac Type Severity Reaction Status Date / Time codeine Allergy Hives Verified 05/01/24 09:25 Review of Systems Review of Systems: per HPI [facility] Past Medical History Medical History Colon polyp Chronic renal failure (CRF), stage 4 (severe) Cancer of kidney Status post partial right nephrectomy. Status post cryotherapy to the left kidney. Tobacco dependence Chronic obstructive pulmonary disease Malignant melanoma of left forearm (2016) Congestive heart failure Echocardiogram in April 2014 showed LV H with moderate global systolic function with an EF of 35% and moderate right ventricular dysfunction. Insulin dependent type 2 diabetes mellitus Chronic back pain Third degree michael of multiple sites (2005) Atrial fibrillation Hypertension Hyperlipemia Surgical History Surgical History History of skin graft History of appendectomy History of lumbar surgery History of melanoma excision (10/26/16) Left forearm. History of partial nephrectomy Right, for kidney cancer. nd partial left Presence of combination internal cardiac defibrillator (ICD) and pacemaker Family History Family History Sibling Brain cancer Father Diabetes mellitus Coronary artery disease Mother Alzheimer disease Social History Social History Social History: The left alone and is . He has retired from [employer]. He served in the [employer]. He is down to 1/2 ppk a cigarettes a day Surrogate decision maker: Omid Baker, son. Code status: Full code. Smoking packs per day: 0.5 Smoking cigarettes per day: 10.0 Years smoked: 55 Smoking pack-years: 27.50 Smoking status: Light tobacco smoker Tobacco type: cigarettes Second hand tobacco smoke exposure: Yes Alcohol intake: never Substance use: never Substance use type: does not use Lack of Transportation: YES Lack of Food: Sometimes True Current Housing: I Have Housing Concerned About Future Housing: No Difficulty Paying Gas/Electric Bills: No Difficulty Paying for Meds: No Currently Unemployed: No Education: Don't Know Difficulty w/ Childcare or Family Care: No Living arrangements: alone Additional occupation/education comments: Disabled. Spiritual care concerns: No Exam Narrative: GENERAL: Ill-appearing, no acute distress. EYES: PERRLA, conjunctivae clear ENT: Mucous membranes moist. NECK: Supple. No lymphadenopathy CHEST: Lungs coarse and wheezing throughout all patel. No respiratory distress, speaks in full sentences. HEART: Regular rate and rhythm. No murmur heard. SKIN: Warm, dry, pale NEURO: Alert and oriented x3. PSYCH: Normal mood and affect Course Course Emergency Course: Patient is aware of diagnosis, understands and agrees to treatment plan. Anticipatory guidance given. Patient agrees to follow-up as directed and is aware of reasons to seek care at the emergency department. Portions of this record may have been created with voice recognition software Level of Care: Express Care Visit Vital Signs Vital signs: Vital Signs Temperature 99.3 F 05/01/24 09:12 Pulse Rate 69 05/01/24 09:12 Respiratory Rate 20 05/01/24 09:12 Blood Pressure 154/64 H 05/01/24 09:12 Pulse Oximetry 95 05/01/24 09:12 Oxygen Delivery Room Air 05/01/24 09:12 Temperature 99.3 F 05/01/24 09:12 Pulse Rate 69 05/01/24 09:12 Respiratory Rate 20 05/01/24 09:12 Blood Pressure 154/64 H 05/01/24 09:12 Pulse Oximetry 95 05/01/24 09:12 Oxygen Delivery Room Air 05/01/24 09:12 reviewed MDM - URI/Sore Throat MDM Narrative Medical decision making narrative: POS covid CXR shows atelectasis, reviewed with pt. Advised ER transfer due to multiple comorbidities with covid. Pt refuses at this time. States I'm tired. The patient is AA&Ox3, free from distracting injury. The patient has demonstrated concrete thinking/reasoning, has maintained an computational mathematician/reasonable conversation, appears to have intact insight/judgment/reason and therefore has capacity to make decisions. Given the patients presentation, we communicated our concern for Covid, wheezing, multiple comorbidities and requires dialysis in laymans terms. The patient verbalized an understanding. The patient is aware the evaluation is incomplete & many troublesome conditions have not been r/o. We have discussed the need for further ED workup. We have discussed the range of possible dx, potential testing & treatment options. Weve made efforts to prevent the pt from leaving AMA. Our discussions included the potential outcomes of leaving AMA, including worsening of their condition, becoming permanently disabled/in pain/critically ill, or . Despite these efforts, we were unable to convince the pt to go to the ER. We have attempted to offer tx/rx/guidance for any dangerous conditions which are most likely and/or dangerous. We have answered all questions and have implored the patient to go to ER [facility] to complete the w/u. A staff member witnessed the patient consenting to AMA. Differential Diagnosis Differential diagnosis: Likely upper respiratory infection, sinusitis, viral infection, bronchitis and other Lab Data Labs: Lab Results 05/01/24 Range/Units 09:15 POC Influenza A Ag Negative (Negative) POC Influenza B Ag Negative (Negative) POC SARS CoV-2 Ag Positive (Negative) Imaging Data Radiologist's impression: Patient: Lencho Baker : 1950 MR#: [id number] Age: 74 Acct:[id number] Loc: [facility] ADM Date: 05/01/24Attending Dr: Ordering Physician: Latrice Vargas APRN Date of Service: 05/01/24 Procedure(s): XR chest 2V Accession Number(s): [id number] cc: Morgan Mercado MD; Latrice Vargas APRN~ EXAMINATION: XR chest 2V DATE: 05/01/2024 09:39 INDICATION: Cough. TECHNIQUE: Frontal and lateral views of the chest were obtained. COMPARISON: Chest 2 views 04/23/2022, chest CT 01/20/2024 FINDINGS: There is mild atelectasis in the right lower lung zone and the left mid and lower lung zones. No pleural effusion or pneumothorax. The heart size is normal. There is a left chest pacer/defibrillator with lead in right ventricle. IMPRESSION: 1. Mild atelectasis in right lower lung zone and left mid and lower lung zones. Discharge Plan Discharge Clinical Impression: COVID-19 Patient Disposition: Left Against Medical Advice Condition: Stable Patient Language: Lithuanian Prescriptions: New doxycycline hyclate 100 mg tablet 100 mg PO BID 7 Days Qty: 14 0RF prednisone 20 mg tablet 40 mg PO DAILY 4 Days Qty: 8 0RF No Action citalopram [Celexa] 20 mg tablet 20 mg PO HS oxycodone-acetaminophen [Percocet] 10-325 mg tablet 1 tablet PO Q6H PRN (Reason: PAIN 4-10) carisoprodol [Soma] 350 mg tablet 350 mg PO BID PRN (Reason: Muscle Spasm) metoprolol succinate [Toprol XL] 200 mg tablet extended release 24 hr 200 mg PO DAILY ergocalciferol (vitamin D2) 1,250 mcg (50,000 unit) capsule 1,250 mcg PO WEEKLY Rx Instructions: pt takes on Mondays alprazolam [Xanax] 1 mg tablet 1 mg PO BID PRN (Reason: Anxiety) simvastatin [Zocor] 10 mg tablet 10 mg PO HS (DME) pen needle, diabetic [BD Brittny 2nd Gen Pen Needle] 32 gauge x 5/32 needle MISCELLANEOUS allopurinol 100 mg tablet 100 mg PO BID calcitriol 0.25 mcg capsule 0.25 mcg PO DAILY glimepiride 4 mg tablet 4 mg PO BIDWM lisinopril 40 mg tablet 40 mg PO DAILY Atrovent HFA 17 mcg/actuation HFA aerosol inhaler 1 inh INHALATION Q6H fenofibrate 54 mg tablet 54 mg PO DAILY aspirin 81 mg Tablet 81 mg PO DAILY Follow-up/Referrals: Morgan Mercado MD [Primary Care Provider] -
[2024-05-01 09:23] LABS: EDCOVIDSCREEN Positive (Negative); EDINFLUASCREEN Negative (Negative); EDINFLUBSCREEN Negative (Negative)
--- OUTSIDE RECORDS SUMMARY | 2024-05-01 09:24 | XMS_ITS | Clinical Summary ---
Author Organization [facility] Facility Address [address] [place] [address] Care Team Providers Care Cannon Fire Direction Specialist Name Role Phone Morgan Mercado MD Primary Care Provider Unavailabl e Allergies Active Allergy Reactions Criticality Noted Date Comments Codeine Hives 05/26/2022 Medications allopurinol (ZYLOPRIM) 100 MG tablet Take 100 mg by mouth in the morning and 100 mg in the evening. Active ALPRAZolam (XANAX) 1 MG tablet Take 1 mg by mouth every 12 (twelve) hours if needed for anxiety Active calcitriol (ROCALTROL) 0.25 MCG capsule Take 0.25 mcg by mouth 1 (one) time each day Active carisoprodol (SOMA) 350 MG tablet Take 350 mg by mouth every 12 (twelve) hours if needed for muscle spasms Active citalopram (CeleXA) 20 MG tablet Take 20 mg by mouth 1 (one) time each day Active colchicine 0.6 MG tablet Take 0.6 mg by mouth 1 (one) time each day Take 2 tabs the first day of flare, then 1 tab daily for 4 days, only use medication during gout flares Active dilTIAZem SR (CARDIZEM SR) 120 MG 12 hr capsule Take 120 mg by mouth in the morning and 120 mg in the evening. Active doxazosin (CARDURA) 4 MG tablet Take 4 mg by mouth every night Active ergocalciferol 1.25 MG (31403 UT) capsule Take 50,000 Units by mouth 1 (one) time per week Active glimepiride (AMARYL) 2 MG tablet Take 1 mg by mouth 1 (one) time each day before breakfast Active ipratropium HFA (ATROVENT HFA) 17 MCG/ACT inhaler Inhale 2 puffs 4 (four) times a day Active metoprolol succinate XL (TOPROL-XL) 200 MG 24 hr tablet Take 100 mg by mouth 1 (one) time each day Do not crush or chew. Active omega-3 (FISH OIL) 1000 MG capsule Take by mouth 1 (one) time each day Active oxyCODONE-aceta minophen (PERCOCET) 10-325 MG per tablet Take 1 tablet by mouth every 6 (six) hours if needed for moderate pain Active simvastatin (ZOCOR) 10 MG tablet Take 10 mg by mouth every night Active Icosapent Ethyl (Vascepa) 1 g capsule Take by mouth Active Active Problems No known active problems Encounters Date Type Department Care Team Description 04/24/2024 Orders Only [facility]. [address] [facility] [address] Aamir Thakkar MD 04/17/2024 Orders Only [facility]. [address] [facility] [phone] Aamir Thakkar MD 04/10/2024 Orders Only [facility] [address] [facility] [address] Aamir Thakkar MD 04/05/2024 Orders Only [facility] [address] [facility] [address] Aamir Thakkar MD 03/26/2024 Orders Only [facility] [address] [facility] [phone] Aamir Thakkar MD 03/19/2024 Orders Only [facility] [address] [facility] [address] Aamir Thakkar MD 03/13/2024 Orders Only [facility] [address] [facility] [address] Aamir Thakkar MD 03/13/2024 Documentation Only [facility] [address] [facility] [phone] Aamir Thakkar MD 03/10/2024 Orders Only [facility] [address] [facility] [address] [place] [address] Aamir Thakkar MD 03/06/2024 Orders Only [facility] [address] [facility] [address] [place] [phone] Aamir Thakkar MD 02/28/2024 Orders Only [facility] [address] [facility] [address] [place] [address] Aamir Thakkar MD 02/20/2024 Orders Only [facility] [address] [facility] [address] [place] [address] Aamir Thakkar MD 02/14/2024 Orders Only [facility] [address] [facility] [address] [place] [phone] Aamir Thakkar MD 02/07/2024 Orders Only [facility] [address] [facility] [address] [place] [address] Aamir Thakkar MD 01/31/2024 Orders Only [facility] [address] [facility] [address] [place] [phone] Aamir Thakkar MD from Last 3 Months Social History Tobacco Use Types Packs/Day Years Used Date Smoking Tobacco: Every Day Cigarettes Smokeless Tobacco: Never Tobacco Cessation:Ready to Q uit: Not Asked; Counseling Given: Not Answered Alcohol Use Standard Drinks/Week Comments Never 0 (1 standard drink = 0.6 oz pur e alcohol) Sex and Gender Information Value Date Recorded Sex Assigned at Not on file Legal Sex Male 11:01 AM EST Gender Identity Not on file Sexual Orientation Not on file Last Filed Vital Signs Vital Sign Reading Time Taken Comments Blood Pressure 156/80 11/16/2022 10:19 AM CDT Pulse 77 11/16/2022 10:19 AM CDT Temperature 36.3 ??C (97.4 ??F) 11/16/2022 10:19 AM C DT Respiratory Rate - - Oxygen Saturation 96% 11/16/2022 10:19 AM CDT Inhaled Oxygen Concentration - - Weight 98.6 kg (217 lb 5 oz) 11/16/2022 10:19 AM CDT Height 182.9 cm (6') 05/31/2022 9:47 AM ROLLER PRINTER Body Mass Index 29.47 05/31/2022 9:47 AM ROLLER PRINTER Plan of Treatment Health Maintenance Due Date Last Done Comments Colorectal Cancer Screening: Annual FOBT 02/06/2000 Colorectal Cancer Screening: Colonoscopy 02/06/2000 Colorectal Cancer Screening: Sigmoidoscopy 02/06/2000 Hepatitis B Vaccine (1 of 3 - Risk 3-dose series) 2011 Pneumococcal Vaccine: 65+ Ye ars (2 of 2 - PCV) 07/14/2013 07/14/2012 Diabetes: Ophthalmology Exam 05/28/2022 Diabetes: Pedal Pulse Checked 05/28/2022 Diabetes: Sensory Foot Exam 05/28/2022 Diabetes: Visual Foot Exam 05/28/2022 Diabetes: Hemoglobin A1C 01/13/2023 023, 09/28/2022, 05/28/2022 Influenza Vaccine (#1) 2023 01/04/2023 Procedures Procedure Name Priority Date/Time Associated Diagnosis Comments HEMATOLOGY Routine 04/24/2024 HEMATOLOGY Routine 04/17/2024 HD KINETICS Routine 04/10/2024 CHEMISTRY Routine 04/10/2024 POST CHEMISTRY Routine 04/10/2024 HEMATOLOGY Routine 04/10/2024 HEMATOLOGY Routine 04/05/2024 HEMATOLOGY Routine 03/26/2024 HEMATOLOGY Routine 03/19/2024 BLOOD CULTURE Routine 03/19/2024 CULTURE,BLOOD-2ND SET Routine 03/19/2024 URINE CULTURE Routine 03/13/2024 URINALYSIS Routine 03/13/2024 HEMATOLOGY Routine 03/13/2024 CHEMISTRY Routine 03/13/2024 URINE CULTURE Routine 03/10/2024 HD KINETICS Routine 03/06/2024 CHEMISTRY Routine 03/06/2024 HEMATOLOGY Routine 03/06/2024 POST CHEMISTRY Routine 03/06/2024 HEMATOLOGY Routine 02/28/2024 HEMATOLOGY Routine 02/20/2024 HEMATOLOGY Routine 02/14/2024 HD KINETICS Routine 02/07/2024 POST CHEMISTRY Routine 02/07/2024 TRACE ELEMENTS Routine 02/07/2024 IMMUNO CHEMISTRY Routine 02/07/2024 SPECIAL CHEMISTRY Routine 02/07/2024 CHEMISTRY Routine 02/07/2024 HEMATOLOGY Routine 02/07/2024 CHEMISTRY Routine 02/07/2024 HEMATOLOGY Routine 01/31/2024 HEMOGLOBIN A1C Routine 10/13/2022 Type 2 diabetes mellitus with diabetic chronic kidney disease (HCC) from Last 3 Months or Most Recently Relevant to Health Maintenance Results * (ABNORMAL) HEMATOLOGY (04/24/2024) Only the most recent of13 resultswithin the time period is included. Hemoglobin 10.7(L) 14.0 - 18.0 g/dL [facility] Hemoglobin x 3 32.1(L) 42.0 - 54.0 % [facility] 04/24/2024 04/25/2024 10: 10 AM ROLLER PRINTER Narrative [facility] - 04/25/2024 Unless otherwise specified, test(s) performed at: [facility], [address] [place] [id number] ICE PLATFORM SUPERVISOR: Regino Arevalo M.D. For any questions, please call customer service at FREQUENCY:OTHER Resulting Agency Comment Specimen source: Blood Aamir Thakkar MD LAB BLOOD ORDERABLES Final Res ult Performing Organization Address [facility] Co de Phone Number [facility] See order comments or contact performing lab Unknown, [place] * HD KINETICS (04/10/2024) Only the most recent of3 resultswithin the time period is included. % Urea Reduction 72 65 - 80 % [facility] 04/10/2024 04/11/2024 9:1 8 AM ROLLER PRINTER Narrative [facility] - 04/11/2024 Unless otherwise specified, test(s) performed at: [facility], [address] [place] [phone] ICE PLATFORM SUPERVISOR: Regino Arevalo M.D. For any questions, please call customer service at FREQUENCY:MONTHLY Resulting Agency Comment Specimen source: Plasma Aamir Thakkar MD LAB BLOOD ORDERABLES Final Res ult Performing Organization Address [facility]/ZIP Co de Phone Number [facility] See order comments or contact performing lab Unknown, [place] * POST CHEMISTRY (04/10/2024) Only the most recent of3 resultswithin the time period is included. BUN Post Dialysis 15 6 - 19 mg/dL [facility] 04/10/2024 04/11/2024 9:1 8 AM ROLLER PRINTER Narrative [facility] - 04/11/2024 Unless otherwise specified, test(s) performed at: [facility], [address] [place] [phone] ICE PLATFORM SUPERVISOR: Regino Arevalo M.D. For any questions, please call customer service at FREQUENCY:MONTHLY Resulting Agency Comment Specimen source: Plasma us Aamir Thakkar MD LAB BLOOD ORDERABLES Final Res ult [facility] See order comments or contact performing lab Unknown, [place] * (ABNORMAL) [facility] (04/10/2024) Only the most recent of5 resultswithin the time period is included. BUN 53(H) 6 - 19 mg/dL [facility] Creatinine 6.32(H) 0.60 - 1.30 mg/dL [facility] BUN/Creatinine Ratio 8.4(L) 10.0 - 20.0 [facility] Sodium 140 136 - 145 mEq/L [facility] Potassium 4.4 3.5 - 5.1 mEq/L [facility] Chloride 100 96 - 108 mEq/L [facility] Bicarbonate (CO2) 26 22 - 29 mEq/L [facility] Calcium 8.2(L) 8.4 - 10.2 mg/dL [facility] Corrected Calcium 8.0(L) 8.4 - 10.2 mg/dL [facility] Comment: Corrected Calcium is not equivalent to measured Ionized Calcium. Phosphorus 5.3(H) 2.6 - 4.5 mg/dL [facility] Calcium Phosphorus Product 43 0 - 54 [facility] Calcium Phosporus Product, Cor 42 0 - 54 [facility] Total Protein 6.6 6.0 - 8.5 g/dL [facility] Albumin 4.3 3.5 - 5.2 g/dL [facility] Globulin, Total 2.3 2.0 - 4.0 g/dL [facility] A/G Ratio 1.9 1.0 - 2.0 [facility] Glucose 205(H) 70 - 100 mg/dL [facility] Iron 72 45 - 160 mcg/dL [facility] UIBC 277 155 - 355 mcg/dL [facility] TIBC 349 185 - 515 mcg/dL [facility] Iron Saturation (TSat) 21 20 - 55 % [facility] 04/10/2024 04/11/2024 9:1 2 AM ROLLER PRINTER Narrative [facility] - 04/11/2024 Unless otherwise specified, test(s) performed at: [facility], [address] [place], [place] [id number] ICE PLATFORM SUPERVISOR: Regino Arevalo M.D. For any questions, please call customer service at FREQUENCY:MONTHLY Resulting Agency Comment Specimen source: Serum us Aamir Thakkar MD LAB BLOOD ORDERABLES Final Res ult Performing Organization Address [facility] Co de Phone Number [facility] [employer] See order comments or contact performing lab Unknown, [place] * Blood culture (03/19/2024) Culture Result See below [facility] Comment: No Aerobic or Anaerobic Growth after 5 Days of Incubation. 03/19/2024 03/20/2024 10: 34 AM [facility] Narrative [facility] - 03/25/2024 Unless otherwise specified, test(s) performed at: [facility], [address] [place] [id number] ICE PLATFORM SUPERVISOR: Regino Arevalo M.D. For any questions, please call customer service at FREQUENCY:OTHER Resulting Agency Comment Specimen source: Blood/Dialysis Bloodline us Aamir Thakkar MD LAB MICROBIOLOGY - GENERAL ORD ERABLES Final Result Performing Organization Address [facility] de Phone Number [facility] See order comments or contact performing lab Unknown, [place] * Blood culture (03/19/2024) Culture, Blood See below [facility] Comment: No Aerobic or Anaerobic Growth after 5 Days of Incubation. 03/19/2024 03/20/2024 10: 34 AM ROLLER PRINTER Narrative [facility] - 03/25/2024 Unless otherwise specified, test(s) performed at: [facility], [address] [place] [phone] ICE PLATFORM SUPERVISOR: Regino Arevalo M.D. For any questions, please call customer service at FREQUENCY:OTHER Resulting Agency Comment Specimen source: Blood/Dialysis Bloodline us Aamir Thakkar MD LAB MICROBIOLOGY - GENERAL ORD ERABLES Final Result Performing Organization Address [facility]/ZIP Co de Phone Number [facility] See order comments or contact performing lab Unknown, [place] * (ABNORMAL) Urinalysis (03/13/2024) Clarity, Urine Clear Clear [facility] Color, Urine Yellow Yellow [facility] Specific [place], Urine 1.015 1.001 - 1.035 [facility] pH Urine 7.5 5.0 - 9.0 [facility] WBC Esterase Urine Negative Negative [facility] Nitrite, Urine Negative Negative [facility] Protein, Ur 2+(A) Negative [facility] Glucose Urine 2+(A) Negative [facility] Ketones, Urine Negative Negative [facility] Urobilinogen Urine 0.2 0.2 - 1.0 EU/dL [facility] Bilirubin Urine Negative Negative [facility] Blood Urine Negative Negative [facility] WBC, Urine 0-5 0 - 5 /HPF [facility] RBC, Urine 0-2 0 - 2 /HPF [facility] Squamous Epithelial, Urine None None,Few /HPF [facility] Bacteria, Urine None None /HPF [facility] 03/13/2024 03/14/2024 9:4 2 AM ROLLER PRINTER Narrative [facility] - 03/14/2024 Unless otherwise specified, test(s) performed at: [facility], [address] [place] [phone] ICE PLATFORM SUPERVISOR: Regino Arevalo M.D. For any questions, please call customer service at FREQUENCY:OTHER Resulting Agency Comment Specimen source: Urine Aamir Thakkar MD LAB URINE ORDERABLES Final Res ult Performing Organization Address City/[facility]/ZIP Co de Phone Number [facility] See order comments or contact performing lab Unknown, [place] * Urine Culture (03/10/2024) Culture Result, Urine No Growth After 48 Hours [facility] 03/10/2024 03/13/2024 10: 07 AM ROLLER PRINTER Narrative [facility] - 03/15/2024 Unless otherwise specified, test(s) performed at: [facility], [address] [place] [phone] ICE PLATFORM SUPERVISOR: Regino Arevalo, M.D. For any questions, please call customer service at FREQUENCY:OTHER Resulting Agency Comment Specimen source: Urine/MIDSTREAM CLEAN Aamir Thakkar MD LAB URINE ORDERABLES Final Res ult Performing Organization Address [facility] Co de Phone Number [facility] See order comments or contact performing lab Unknown, [place] * (ABNORMAL) SPECIAL CHEMISTRY (02/07/2024) Pathologist [facility] Folate 13.2 ng/mL [facility] Comment: Reference Range: Deficient: ?<3.4 ng/mL Indeterminate: ??3.4-5.4 ng/mL Normal: ? >5.4 ng/mL Vitamin D, 25-OH, Total 17.6(L) 30 - 100 ng/mL [facility] Comment: Please Note:? Effective January 24, 2023, the methodology for this test has changed to the [employer]. 02/07/2024 02/08/2024 10: 32 AM ROLLER PRINTER Narrative Resulting Agency Comment Specimen source: Serum Aamir Thakkar MD LAB BLOOD BANK TEST ORDERABLES Final Result Performing Organization Address [facility] de Phone Number [facility] See order comments or contact performing lab Unknown, [place] * IMMUNO CHEMISTRY (02/07/2024) [facility] Hep B Surface Ag Negative Negative [facility] Hepatitis B Surface Ab 250 mIU/mL [facility] Comment: The anti-HBs (Hepatitis B surface antibody) is greater than or equal to 10 mIU/mL and implies immunity. The patient has either had an antibody response to HBV vaccination, received a transfusion, or has recovered from HBV infection. For post-vaccination antibody testing guidelines for the general public, refer to MMWR March 19, 2005/Vol.54 (No. 16); -, and for healthcare workers, refer to MMWR March 16, 2013/Vol.62 (No. 10); 1-18. Reference Range: <10 mIU/mL ? Non-Immune >=10 mIU/mL ?Immune The magnitude of the measured result above 10 mIU/mL is not indicative of the total amount of antibody present. Hepatitis C Antibody Nonreactive Nonreactive [employer] Comment: No HCV antibody detected. The above test result was obtained using Siemens Centaur XP chemiluminescent method. Results obtained with different assay methods or kits cannot be used interchangeably. S/CO Ratio 0.02 0.00 - 0.79 [facility] Comment: s/co ratio ?Interpretation ?Supplemental testing <0.80 ? Nonreactive ? No further testing required. 0.80-0.99 ? Equivocal ? HCV RNA Quantitative Real-Time PCR is recommended. 1.00->11.00 ?? Reactive ?HCV RNA Quantitative Real-Time PCR is recommended to distinguish active from resolved cases. 02/07/2024 02/08/2024 10: 32 AM ROLLER PRINTER Narrative Resulting Agency Comment Specimen source: Serum Aamir Thakkar MD LAB BLOOD ORDERABLES Final Res ult [facility] [employer] See order comments or contact performing lab Unknown, [place] * TRACE ELEMENTS (02/07/2024) Aluminum <5 0 - 10 mcg/L [employer] Comment: This test was developed and its performance characteristics determined by [facility]. It has not been cleared or approved by the FDA. The laboratory is regulated under CLIA as qualified to perform high complexity testing. This test is used for clinical purposes. It should not be regarded as investigational or for research. 02/07/2024 02/08/2024 9:4 7 AM ROLLER PRINTER Narrative [facility] - 02/08/2024 Unless otherwise specified, test(s) performed at: [facility], [address] [place] [id number] ICE PLATFORM SUPERVISOR: Regino Arevalo M.D. For any questions, please call customer service at FREQUENCY:MONTHLY Resulting Agency Comment Specimen source: Serum Aamir Thakkar MD LAB BLOOD ORDERABLES Final Res ult [facility] See order comments or contact performing lab Unknown, [place] * Hemoglobin A1c (10/13/2022) Hemoglobin A1C 5.2 PRINT /EXTERNAL (NON-INTERFACE D LABS) Blood (Blood, Venous) 10/13/2022 Aamir Thakkar MD LAB BLOOD ORDERABLES Final Res ult PRINT/EXTERNAL (NON-INTERFACED LABS) from Last 3 Months or Most Recently Relevant to Health Maintenance Insurance MEDICARE Care Teams Cannon Fire Direction Specialist Relationship Specialty Start Date End Date Morgan Mercado MD [address] [place] [id number] PCP - General Family Medicine 05/31/22
--- OUTSIDE RECORDS SUMMARY | 2024-05-01 09:24 | XMS_ITS | Clinical Summary ---
Author Organization [facility] Address [address] [facility] [place] [address] Care Team Providers Care Millinery Worker Name Role Phone Morgan Mercado MD Primary Care Provider [phone] [facility] Affiliates and Associated Physician Practices is amultiple site organization consisting of ambulatory clinics and hospital sitesin [place], [place], [place]. This disclosure is being madepursuant to the Care Everywhere program and may not contain all information available regarding this patient. Last updated 17.[facility] Active Problems Problem Noted Date Diagnosed Date Other specified disorders of kidney and ureter 0 07/14/2012 Immunizations Name Administration Dates Next Due PNEUMOCOCCAL PPSV23 07/14/2012 Social History Tobacco Use Types Packs/Day Years Used Date Smoking Tobacco: Every Day Cigarettes Smokeless Tobacco: Never Alcohol Use Standard Drinks/Week Comments No 0 (1 standard drink = 0.6 oz pur e alcohol) Sex and Gender Information Value Date Recorded Sex Assigned at Not on file Gender Identity Not on file Sexual Orientation Not on file Last Filed Vital Signs Vital Sign Reading Time Taken Comments Blood Pressure 127/83 08/03/2013 9:08 AM CDT Pulse 76 08/03/2013 9:08 AM CDT Temperature 36.3 ??C (97.3 ??F) 08/03/2013 9:08 AM CD T Respiratory Rate 20 07/14/2012 8:13 AM CDT Oxygen Saturation 96% 07/14/2012 8:13 AM CDT Inhaled Oxygen Concentration - - Weight 120.4 kg (265 lb 6.4 oz) 08/03/2013 9:08 AM CDT Height 182.9 cm (6') 08/03/2013 9:08 AM CDT Body Mass Index 35.99 08/03/2013 9:08 AM CDT Plan of Treatment Health Maintenance Due Date Last Done Comments COLOGUARD (AGES 45-75) - COL ON CA SCREENING 1950 COLON MONITORING 1950 COLONOSCOPY - COLON CA SCREENING 1951 CT COLONOGRAPHY - COLON CA SCREENING 1950 Colorectal Cancer Screening 1950 FIT - COLON CA SCREENING 1950 FLEX SIG - COLON CA SCREENING 1950 LIPID TESTING 1950 MEDICARE AWV ? 12 MONTHS 1950 HEPATITIS C SCREENING 01/31/1969 DTAP/TDAP/TD VACCINES (1 - Tdap) 1970 ZOSTER VACCINE (1 of 2) 2001 PNEUMOCOCCAL VACCINE 50+ (2 of 2 - PCV) 07/14/2013 07/14/2012 AAA SCREENING 02/06/2016 COVID-19 VACCINE ( - 2023-2 5 season) 2023 INFLUENZA VACCINE (#1) 2023 DEPRESSION SCREENING 03/28/2024 Respiratory Syncytial Virus (RSV) Vaccine Pt: or over 60 yrs (1 - 1-dose 75+ series) 2026 HEPATITIS B VACCINE Aged Out No longe r eligible based on patient's age to complete this topic HIB VACCINE Aged Out No longer eligi ble based on patient's age to complete this topic HPV VACCINE Aged Out No longer eligi ble based on patient's age to complete this topic MENINGOCOCCAL (Group B) VACCINE Aged Out No longer eligible based on patient's age to complete this topic MENINGOCOCCAL VACCINE Aged Out No fernando suly eligible based on patient's age to complete this topic Care Teams Millinery Worker Relationship Specialty Start Date End Date Morgan Mercado MD [address] [facility] [address] [place] [id number] PCP - General 03/30/12
--- OUTSIDE RECORDS SUMMARY | 2024-05-01 09:24 | XMS_ITS | Clinical Summary ---
Author Organization [facility] Address [address] [place] [address] Phone Care Team Providers Care Dental Ceramist Assistant Name Role Phone Rogelio Morgan Primary Care Provider [phone] Mac Ervin MD Unavailable [phone] Allergies Active Allergy Reactions Criticality Noted Date Comments Codeine Swelling 12/01/2018 Medications WARFARIN SODIUM PO Take 7 mg by mouth Every Tuesday, Tuesday, Tuesday. Active metoprolol succinate (TOPROL-XL) 200 MG TABLET SR 24 HR Take 200 mg by mouth daily. Active ALPRAZolam (XANAX) 0.5 MG Tablet Take 0.5 mg by mouth 4 times daily. Active oxyCODONE-Acetam inophen (PERCOCET) 10-325 MG Tablet Take 1 Tab by mouth every 4 hours as needed. Active carisoprodol (SOMA) 350 MG Tablet Take 350 mg by mouth 4 times daily. Active gemfibrozil (LOPID) 600 MG Tablet Take 600 mg by mouth 2 times daily. Active glimepiride (AMARYL) 2 MG Tablet Take 4 mg by mouth every morning. Active doxazosin (CARDURA) 4 MG Tablet Take 4 mg by mouth daily. Active calcitRIOL (ROCALTROL) 0.25 MCG Capsule Take 0.25 mcg by mouth daily. Active simvastatin (ZOCOR) 10 MG Tablet Take 10 mg by mouth every evening. Active lisinopril (PRINIVIL, ZESTRIL) 40 MG Tablet Take 40 mg by mouth daily. Active allopurinol (ZYLOPRIM) 300 MG Tablet Take 300 mg by mouth daily. Active warfarin (COUMADIN) 5 MG TabletIndication s:SUN, DAYDAY, ADEEL, SAT Take 8 mg by mouth See Admin Instructions. Indications: SUN, SHALINIE, ADEEL, SAT Active ergocalciferol (VITAMIN D) 81284 UNIT CapsuleIndicatio ns:SATURDAYS Take 50,000 Units by mouth once a week. Indications: SATURDAYS Active diltiazem (CARDIZEM CD) 240 MG CAPSULE SR 24 HR Take 1 Cap by mouth daily. 30 Cap 0 6 Active citalopram (CELEXA) 20 MG Tablet Take 20 mg by mouth daily. Active HYDROmorphone (DILAUDID) 4 MG Tablet Take 1 Tab by mouth every 6 hours as needed for Severe pain. 2 Tab 9 Active sodium bicarbonate 650 MG Tablet Take 1 Tab by mouth 3 times daily. TO HELP KIDNEY FUNCTION 90 Tab 9 Active Active Problems No known active problems Social History Tobacco Use Types Packs/Day Years Used Date Smoking Tobacco: Every Day Cigarettes 0.8 50 Smokeless Tobacco: Never Alcohol Use Standard Drinks/Week Comments Never 0 (1 standard drink = 0.6 oz pur e alcohol) AUDIT-C Answer Date Recorded Frequency of Alcohol Consumption Never 12/01/2018 Average Number of Drinks Not on file 019 Frequency of Binge Drinking Not on file 08/2018 Sex and Gender Information Value Date Recorded Sex Assigned at Not on file Legal Sex Male 9:37 PM CDT Gender Identity Not on file Sexual Orientation Not on file Last Filed Vital Signs Vital Sign Reading Time Taken Comments Blood Pressure 100/67 12/01/2018 2:03 PM CDT Pulse 71 12/01/2018 2:07 PM CDT Temperature 36.6 ??C (97.8 ??F) 12/01/2018 12:09 PM C DT Respiratory Rate 16 12/01/2018 12:09 PM CDT Oxygen Saturation 98% 12/01/2018 12:09 PM CDT Inhaled Oxygen Concentration - - Weight 113.4 kg (250 lb) 12/01/2018 12:09 PM CDT Height 182.9 cm (6') 12/01/2018 12:09 PM CDT Body Mass Index 33.91 12/01/2018 12:09 PM CDT Plan of Treatment Health Maintenance Due Date Last Done Comments Hepatitis C Virus (HCV) Screening 1950 TdaP Immunization 1950 Colonoscopy 02/06/1996 Colorectal Cancer Screening 02/06/1996 Cologuard 2001 Immunochemical Fecal Occult Blood 2001 Zoster Immunization (1 of 2) 2001 Pneumococcal Immunization (50+ years) (2 of 2 - PPSV23) 12/13/2017 12/13/2016 Influenza Immunization (#1) 11/27/202312/26, 12/13/2016, 12/18/2015, Additional history exists SARS-COV-2 Immunization ( season) 2023 04/02/2021, 07/03/2020 Respiratory Syncytial Virus (RSV) Immunization (Adult) (1 - 1-dose 75+ series) 2026 Pneumococcal Immunization Combined Discontinued 12/13/2016 Hepatitis B Immunization Aged Out No longer eligible based on patient's age to complete this topic Meningococcal Immunization (ACWY) Aged Out No longer eligible based on patient's age to complete this topic Rotavirus Immunization Aged Out No lo nger eligible based on patient's age to complete this topic Insurance MEDICARE MEDICARE Member Subscriber Plan / Payer (Ef fective 2019-Present) Name:Lencho Mclean Relation to Subscriber:Self Name:Lencho Mclean Payer ID:[id number] Group ID:[id number] Type:Not on file Address: [address] ADMIN Advance Directives * Full Code (Latest Code Status on File) Date Activated Date Inactivated Comments 08/10/2015 8:07 PM 08/12/2015 12:44 PM CPR-Full Tr eatment: FULL ARREST: Attempt Resuscitation/CPR wit intubation and mechanical ventilation. PRE-ARREST: Use entire range of life support measures to stabilize the patient. Care Teams Dental Ceramist Assistant Relationship Specialty Start Date End Date Morgan Mercado [address] [place] [address] PCP - General Family Medicine 05/16/15 Mac Ervin MD [address] [place] [phone] Consulting Physician Oncology 09/21/21
--- OUTSIDE RECORDS SUMMARY | 2024-05-01 09:24 | XMS_ITS | Encounter Summary ---
Author Name [facility] [place] [facility] [place] Address [address] [place] [address] Care Team Providers Care Act English Tutor Name Role Phone LEVI RODRÍGUEZ Primary Care Provider Unavail able Insurance Providers: All historical and current Section Date Range: From patient's date of to the date document was created. This section includes the names of all active insurance providers for the patient. Insurance Provider Type of Coverage Plan Name Start of Policy Coverage End of Policy Coverage Group Number Member ID Insurance Provider's Telephone Number Policy Pittman's Name Patient's Relationship to Policy Pittman MEDICAID (WNR) MEDICAID MEDIC AID (WNR) Mar 28, 2013 MEDICAI D [id number] LENCHO MCLEAN PATIENT MEDICARE (WNR) MEDICARE (M) PART B Jan 27, 2016 PART B [id number] VINAY LENCHO PATIENT MEDICARE (WNR) MEDICARE (M) PART A Jan 27, 2016 PART A [id number] LENCHO MCLEAN PATIENT MEDICARE (WNR) MEDICARE (M) PART A Jan 27, 2016 PART A [id number] VINAY LENCHO PATIENT MEDICARE (WNR) MEDICARE (M) PART B Jan 27, 2016 PART B [id number] LENCHO MCLENA PATIENT Selected Encounter This section includes the information on record at [place] for the Encounter. Date/Time Encounter Type Encounter Description Reason Provider Source Dec 09, 2023 01:48 PM Outpatient Encounter ADMIN PAT ACTIVTIES (MASNONCT) MONIKA RODRÍGUEZ E Encounter Template Text not used by [place] Plan of Treatment: Future Appointments (+ 6 months) and Future Tests (+/- 45 days) The Plan of Treatment section includes future care activities for the patient from [facility] [place] [facility] This section includes future appointments and future orders which are active, pending or scheduled. Future Appointments This section includes appointments that were scheduled to occur 6 months from the date of the Encounter, up to a maximum of 20 appointments. The data comes from all [facility]. Appointment Date/Time Appointment Type Appointme nt Facility Name Dec 27, 2023 08:00 AM AMBULATORY - NONE [facility] Dec 27, 2023 08:30 AM AMBULATORY - MEDICINE [facility] Jan 02, 2024 10:00 AM AMBULATORY - MEDICINE [facility] Jan 04, 2024 08:00 AM AMBULATORY - MEDICINE [facility] Jan 04, 2024 11:00 AM AMBULATORY - SURGERY [facility] Jan 23, 2024 01:00 PM AMBULATORY - NONE [facility] May 30, 2024 09:30 AM AMBULATORY - NONE [facility] Active, Pending, and Scheduled Orders This section includes a listing of several types of active, pending, and scheduled orders, including clinic medications orders, diagnostic test orders, procedure orders and consult orders; where the start date of the order is 45 days before the date of the Encounter or 45 days after the date of theEncounter. The data comes from all [facility]. Test Date/Time Test Type Test Details Facility Name Jan 10, 2024 12:00 AM Laboratory - Chemi stry Order TSH W/ REFLEX FT4 (STL) GREEN LI-HEP PLASMA SP [facility] Social History: Smoking Status (Most current) and Tobacco Use (All prior to encounter date) This section includes the most current, and the historical, smoking and tobacco- related health factors from the [place] facility where the Encounter took place. Current Smoking Status This section includes the most current smoking, or tobacco-related health factor, from the [place] facility where the Encounter took place. Date/Time Current Smoking Status Comment Suyapa ity Dec 26, 2019 09:17 AM VA-TOBACCO USER EVERY DAY [facility] Tobacco Use History This section includes a history of the smoking, or tobacco-related health factors, that were collected on or before the date of the Encounter. The data comes from the [place] facility where the Encounter took place. 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 [facility] Dec 26, 2019 09:17 AM VA-TOBACCO USE MED NO [facility] Dec 26, 2019 09:17 AM VA-TOBACCO USER EVERY DAY [facility] Jun 26, 2014 09:29 AM CURRENT TOBACCO USER [facility] Sep 04, 2013 09:12 AM CURRENT TOBACCO USER [facility] Sep 04, 2013 09:12 AM TOBACCO MEDS OFFER ED BUT DECLINED [facility] Sep 01, 2001 01:01 PM CURRENT TOBACCO USER [facility] Sep 01, 2001 01:01 PM TOBACCO USE [facility] Sep 21, 2000 07:28 AM CURRENT TOBACCO USER [facility] Sep 21, 2000 07:28 AM TOBACCO USE [facility] Jul 21, 2000 01:43 PM CURRENT TOBACCO USER [facility] Advance Directives: All historical and current Section Date Range: From patient's date of to the date document was created. This section includes ALL of a patient's completed or amended [place] Advance and Rescinded Directives. The entries below indicate that a directive exists for the patient, but an actual copy is not included with this document. The data comes from all [facility] facilities. Date Advance Directives Provider Source August 05, 1995 ADVANCE DIRECTIVE ROGER MICHELLE . [facility] Radiology Reports: +/- 30 days of the encounter Radiology Reports For cases when an order for radiology services may have been completed prior to the date of the Encounter, the report list includes the Radiology Reports that were completed up to 30 days before dateof the Encounter. For cases when an order for radiology services may have been completed after the date of the Encounter, the report list also includes the Radiology Reports that were completed up to30 days after date of the Encounter. The data comes from all [place] treatment facilities. Date/Time Radiology Report Provider Source Nov 14, 2023 08:07 AM NM MYOCARDIAL P SP ECT STRESS/REST-P: LENCHO MCLEAN [id number] -[id number] M Exm Date: NOV 14, 2023@08:07 Req Phys: SINDHU PEDROZA Loc: -RENAL CHR ASSIST TXP EVAL ( Img Loc: -NUCLEAR MEDICINE Service: Unknown [facility] [address] [place] [address] (Case [id number] COMPLETE) NM MYOCARDIAL PERF SPECT STRESS/R(NM Detailed) CPT:45843 Reason for Study: TRANSPLANT EVAL (Case 206 COMPLETE) TC-99M TETROFOSMIN (MYOVIEW) (NM Detailed) CPT:A9502 (Case 207 COMPLETE) TC-99M TETROFOSMIN (MYOVIEW), PE(NM Detailed) CPT:A9502 (Case 208 COMPLETE) NON-HEU TC-99M ADD-ON PER STUDY D(NM Detailed) CPT:Q9969 (Case 624 COMPLETE) REGADENOSON INJECTION (NM Detailed) CPT:J2785 Clinical History: TRANSPLANT EVAL Report Status: Verified Date Reported: NOV 14, 2023 Date Verified: NOV 14, 2023 Pattern Molder E-Sig:/ES/Gama Mack MD,PhD Report: PATIENT NAME: LENCHO MCLEAN CASE #: [id number], [id number], [id number], [id number], [id number] EXAMINATION: Rest/Lexiscan Stress Gated SPECT Myocardial Imaging HISTORY: 73-year-old male with ESRD, COPD,, cardiomyopathy, atrial fibrillation, type 2 diabetes, hypertension, hyperlipidemia, melanoma, RCC. Presenting for preoperative evaluation for possible kidney transplant. TECHNIQUE: A dose of 13.9 mCi Tc-99m tetrofosmin was administered IV at rest, and SPECT myocardial imaging was performed in the supine position. Lexiscan administration was performed under physician supervision. Cardiology will report on EKG findings and patient's stress tolerance. A dose of 39.5 mCi Tc-99m tetrofosmin was administered IV at peak stress, and gated SPECT myocardial imaging was performed in the supine position. Non-gated prone stress imaging was also performed. COMPARISON: No prior study was found in patient's chart at the time of dictation. FINDINGS: The image quality is technically excellent with no significant patient motion or unusual soft tissue attenuation. The left ventricle is dilated in size at stress and rest. The stress SPECT images show a normal pattern of myocardial perfusion. There is no significant change on rest imaging.. The gated images demonstrate normal myocardial thickening and normal wall motion. The calculated left ventricular ejection fraction is 50%. Impression: 1. Normal SPECT myocardial imaging without evidence of stress-induced ischemia. 2. Mildly dilated left ventricle. 3. Normal left ventricle contractility with LVEF of 50%. Diagnostic code: 1000. Dictated by Forest Sierra MD (Rehabilitation Medicine Physician). I, Gama Mack, have reviewed the images and report and concur with these findings. Primary Interpreting Staff: Gama Mack MD,PhD, Nuclear Medicine Physician (Pattern Molder) Primary Interpreting Resident: FOREST SIERRA, Resident Physician /GAMA GARCIA [facility] Encounter Notes: All associated encounter notes This section contains the clinical notes associated to the Encounter. Date/Time Encounter Note(s) Provider Source Dec 09, 2023 01:48 PM PHYSICIAN LETTERS: LOCAL TITLE: NO CONTACT LETTER ST STANDARD TITLE: PHYSICIAN LETTERS DATE OF NOTE: DEC 09, 2023@13:48 ENTRY DATE: DEC 09, 2023@13:48:34 AUTHOR: DEVON FAUST COSIGNER: URGENCY: STATUS: COMPLETED [facility] [address] [place] [phone] DEC 09, 2023 LENCHO MCLEAN [address] [place] [address] Dear Lencho Mclean, Thank you for choosing the [facility] as your primary choice for health care. As a partner in your health care, we are attempting to contact you because we have been unsuccessful in reaching you by phone to schedule your clinic appointment. Please call us at [phone], extension [phone] to speak to us regarding making an appointment in the [facility]. Your good health is important to us. Please contact us within 2 weeks from the date of this letter. If we do not hear from you, we will notify your referring provider and a new referral will be required to schedule an appointment. IMPORTANT: Due to COVID-19 we have greatly expanded our telehealth options, please contact the clinic to inquire about scheduling. Sincerely, DEVON FAUST ADVANCE CATSHOVEL DRIVER LENCHO MCLEAN LATOYA A [facility]
--- OUTSIDE RECORDS SUMMARY | 2024-05-01 09:24 | XMS_ITS | Encounter Summary ---
Author Organization [facility] Address [address] [facility] [address] [place] [address] Care Team Providers Care Threshing Operator Name Role Phone Morgan Mercado MD Primary Care Provider [phone] Brisa Lowe MD Unavailable [phone] Aamir Thakkar MD Unavailable [phone] Rodolfo Berman MD Unavailable [phone] Encounter Details Date Type Department Care Team (Late st Contact Info) Description 08/03/2016 Orders Only [facility] Provider, MD Valeri [address] [place] [address] Social History Tobacco Use Types Packs/Day Years Used Date Smoking Tobacco: Light Smoker Comments:Smoking History Pac ks/day: 0.25 Packs Alcohol Use Standard Drinks/Week Comments No 0 (1 standard drink = 0.6 oz pur e alcohol) Sex and Gender Information Value Date Recorded Sex Assigned at Not on file 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 us Historical Provider [facility] MIRZA MAHAN Final Result documented in this encounter Visit Diagnoses Not on filedocumented in this encounter Care Teams Threshing Operator Relationship Specialty Start Date End Date Morgan Mercado MD PCP - General 06/25/16 Brisa Lowe MD Consulting Physician Cardiology 08/26/21 Aamir Thakkar MD [address] [place] [address] Consulting Physician Nephrology 05/15/22 Rodolfo Berman MD [address] [place] [address] Surgeon Surgery 09/02/22 documented as of this encounter
--- OUTSIDE RECORDS SUMMARY | 2024-05-01 09:24 | XMS_ITS ---
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 Name Role Phone MALAAnna LEVI Primary Care Provider Unavail able Insurance Providers: [...] AID (WNR) Mar 28, 2013 MEDICAI D [id number] [phone] VINAYYOU PATIENT MEDICARE (WNR) MEDICARE (M) PART A Jan 27, 2016 PART A [id number] VINAY YOU PATIENT MEDICARE (WNR) MEDICARE (M) PART B Jan 27, 2016 PART B [id number] [phone] YOU MCLEAN PATIENT MEDICARE (WNR) MEDICARE (M) PART A Jan 27, 2016 PART A [id number] VINAY YOU PATIENT MEDICARE (WNR) MEDICARE (M) PART B Jan 27, 2016 PART B [id number] YOU MCLEAN PATIENT Selected Encounter This section includes the information on record at [place] for the Encounter. Date/Time Encounter Type Encounter Description Reason Provider Source Nov 14, 2023 10:00 AM OFF/OP CNSLTJ NEW/EST MOD 40 CARDIAC STRESS TEST ICD-10-CM N18.6 End stage renal disease RAYA ROLAND [facility] Encounter Template Text not used by [facility] Assessments - Encounter Diagnoses This section includes the primary and secondary diagnoses documented for the Encounter. Date/Time Primary/Secondary Diagnosis Diagnosis Name Provider Source Nov 14, 2023 02:13 PM PRIMARY End stage renal disease JONAS GROSS [facility] Plan of Treatment: Future Appointments (+ 6 months) and Future Tests (+/- 45 days) The Plan of Treatment section includes future care activities for the patient from all [place] treatmentfacilities. This section includes future appointments and future orders which are active, pending or scheduled. Future Appointments This section includes appointments that were scheduled to occur 6 months from the date of the Encounter, up to a maximum of 20 appointments. The data comes from all [place] treatment facilities. Appointment Date/Time Appointment Type Appointme nt Facility Name Nov 23, 2023 08:30 AM AMBULATORY - MEDICINE [facility] Dec 09, 2023 11:00 AM AMBULATORY - MEDICINE [facility] Dec 27, 2023 08:00 AM AMBULATORY - NONE [facility] Dec 27, 2023 08:30 AM AMBULATORY - MEDICINE [facility] Jan 02, 2024 10:00 AM AMBULATORY - MEDICINE [facility] Jan 04, 2024 08:00 AM AMBULATORY - MEDICINE [facility] Jan 04, 2024 11:00 AM AMBULATORY - SURGERY [facility] Jan 23, 2024 01:00 PM AMBULATORY - NONE [facility] Social History: Smoking Status (Most current) and Tobacco Use (All prior to encounter date) This section includes the most current, and the historical, smoking and tobacco- related health factors from the [place] facility where the Encounter took place. Current Smoking Status This section includes the most current smoking, or tobacco-related health factor, from the [facility] facility where the Encounter took place. Date/Time Current Smoking Status Comment Suyapa ity Dec 26, 2019 09:17 AM VA-TOBACCO USER EVERY DAY [facility] Tobacco Use History This section includes a history of the smoking, or tobacco-related health factors, that were collected on or before the date of the Encounter. The data comes from the [place] facility where the Encounter took place. 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 [facility] Dec 26, 2019 09:17 AM VA-TOBACCO USE MED NO [facility] Dec 26, 2019 09:17 AM VA-TOBACCO USER EVERY DAY [facility] Jun 26, 2014 09:29 AM CURRENT TOBACCO USER [facility] Sep 04, 2013 09:12 AM CURRENT TOBACCO USER [facility] Sep 04, 2013 09:12 AM TOBACCO MEDS OFFER ED BUT DECLINED [facility] Sep 01, 2001 01:01 PM CURRENT TOBACCO USER [facility] Sep 01, 2001 01:01 PM TOBACCO USE [facility] Sep 21, 2000 07:28 AM CURRENT TOBACCO USER [facility] Sep 21, 2000 07:28 AM TOBACCO USE [facility] Jul 21, 2000 01:43 PM CURRENT TOBACCO USER [facility] Advance Directives: All historical and current Section Date Range: From patient's date of to the date document was created. This section includes ALL of a patient's completed or amended [place] Advance and Rescinded Directives. The entries below indicate that a directive exists for the patient, but an actual copy is not included with this document. The data comes from all [place] facilities. Date Advance Directives Provider Source August 05, 1995 ADVANCE DIRECTIVE ROGER MICHELLE [facility] Radiology Reports: +/- 30 days of the [...] the Encounter. The data comes from all [place] treatment facilities. Date/Time Radiology Report Provider Source Nov 14, 2023 08:07 AM NM MYOCARDIAL P SP ECT STRESS/REST-P: YOU MCLEAN [id number] M Exm Date: NOV 14, 2023@08:07 Req Phys: SINDHU PEDROZA Loc: [facility] ASSIST TXP EVAL ( Img Loc: [facility] Service: Unknown [facility] [address] [place] [address] (Case [id number] COMPLETE) NM MYOCARDIAL PERF SPECT STRESS/R(NM Detailed) CPT:21023 Reason for Study: TRANSPLANT EVAL (Case 206 COMPLETE) TC-99M TETROFOSMIN (MYOVIEW) (NM Detailed) CPT:A9502 (Case 207 COMPLETE) TC-99M TETROFOSMIN (MYOVIEW), PE(NM Detailed) CPT:A9502 (Case 208 COMPLETE) NON-HEU TC-99M ADD-ON PER STUDY D(NM Detailed) CPT:Q9969 (Case 624 COMPLETE) REGADENOSON INJECTION (NM Detailed) CPT:J2785 Clinical History: TRANSPLANT EVAL Report Status: Verified Date Reported: NOV 14, 2023 Date Verified: NOV 14, 2023 Bag Patcher E-Sig:/ES/Gama Mack MD,PhD Report: PATIENT NAME: YOU MCLEAN CASE #: [id number], [id number], [id number], [id number] EXAMINATION: Rest/Lexiscan Stress Gated SPECT Myocardial Imaging [...] code: 1000. Dictated by Forest Sierra MD (Supervisor Accounts Receivable). I, Gama Mack, have reviewed the images and report and concur with these findings. Primary Interpreting Staff: Gama Mack MD,PhD, Nuclear Medicine Physician (Bag Patcher) Primary Interpreting Resident: FOREST SIERRA, Resident Physician /GAMA GARCIA [facility] Encounter Notes: All associated encounter notes This section contains the clinical notes associated to the Encounter. Date/Time Encounter Note(s) Provider Source Nov 14, 2023 10:51 PM ADDENDUM: LOCAL TITLE: Addendum STANDARD TITLE: ADDENDUM DATE OF NOTE: NOV 14, 2023@22:51:11 ENTRY DATE: NOV 14, 2023@22:51:12 AUTHOR: RAYA ROLAND COSIGNER: URGENCY: STATUS: COMPLETED I saw, interviewed and examined the patient on 11/14/2023, and I have reviewed the patient's pertinent notes, diagnostic studies,and medications in his Electronic Medical Records. I reviewed the stress test data with the Informaticist, Dr. GROSS on that date and I concur with his/her assessment, as well as interpretation of the stress test that we formulated together based on the pertinent available data with the following clarifications, and revisions: # DTS was 2 consistent with moderate risk of future cardiac events # HR deceleration is NOT valid because the patient's cardiac rhythm is atrial fibrillation I. Exercise Stress Test: The patient had a submaximal treadmill exercise test to the end-point of fatigue/SOB with diminished chronotropic response His aerobic capacity was POOR, 52% LOWER than the age/gender-adjusted VO2 max of sedentary healthy population. There was NO ECG evidence of exercise-induced myocardial ischemia. II. Pharmacologic Stress Test: was performed uneventfully NO ECG evidence of myocardial ischemia was detected The results of the stress test were discussed with the patient. The patient was informed that a NON-ischemic ECG or other imaging stress tests do not exclude presence of coronary atherosclerosis, particularly non-obstructive CAD (in layman's terms). The patient was also advised that occasionally these mild stenoses may develop erosion/crack/rupture resulting in coronary thrombosis and heart attack (ALL in layman's terms). The veterans's questions and concerns were addressed. In addition, the significance and impact of aerobic capacity on long-term outcome and and quality of life were discussed The Baker was advised that the results of Nuclear Medicine Images will become available later this afternoon and they will be forwarded to the patient's referring provider who will communicate with the . He acknowledged understanding of the concerns discussed. The left the Stress Test Lab in stable condition with NO symptoms. Thank you for your referral and allowing us to participate in care of your patient. 48 minutes were expended for this encounter. /krystal/ Raya Roland MD, FACC, FACP STAFF PHYSICIAN - Cardiology Signed: 11/14/2023 22:57 Receipt Acknowledged By: 11/15/2023 15:32 /krystal/ Pam Wang, PAJadeC PHYSICIAN ETHNOGRAPHIC MATERIALS CONSERVATOR - NEPHROLOGY --- Original Document --- 11/14/23 STRESS TEST PROCEDURE: STRESS TEST PROCEDURE NOTE Vitals Pulse: 82 (04/06/2022 10:15) BP: 154/105 (04/06/2022 10:15) RESP: 16 (12/29/2021 12:51) Height: 72 in [182.9 cm] (12/26/2018 08:57) Weight: 225.9 lb [102.47 kg] (12/29/2021 12:51) Reason for consult: pre-transplant work-up Referring provider: SINDHU PEDROZA His chart is reviewed. History is taken from the patient. HISTORY OF PRESENT ILLNESS 73M w/ a PMH of HTN, T2DM, a-fib not on AC, RCC, ESRD on iHD who presents for stress test as a part of renal transplant work-up. Patient denies a history of chest pain, palpitations, FAGAN, or lightheadedness/dizziness. Does note some shortness of breath when he was admitted for volume overload iso ESRD 1 year ago. Denies return of symptoms since that time. Today, at rest, he denies chest pain, dyspnea, lightheadedness/dizziness, orthopnea, PND, or lower extremity edema. Cardiac Hx: No PAST MEDICAL HISTORY The OBJECT Active Problem List was NOT found...Contact IRM. CURRENT MEDICATIONS Active Outpatient Medications (including Supplies): Active Outpatient Medications Status 1) NICOTINE 14MG/24HR PATCH APPLY 1 PATCH TO SKIN SITE ACTIVE EVERY MORNING FOR TOBACCO CESSATION REMOVE OLD PATCH BEFORE APPLYING NEW ONE. ROTATE SITES. DO NOT SMOKE WHILE WEARING PATCH. 2) NICOTINE POLACRILEX 2MG MINI LOZENGE DISSOLVE 1 ACTIVE LOZENGE BY MOUTH EVERY 4 HOURS NEEDED FOR TOBACCO CESSATION DO NOT SMOKE WHILE USING THIS MEDICATION Active Non-VA Medications Status 1) Non-VA ALPRAZOLAM 1MG TAB 1MG BY MOUTH TWICE A DAY ACTIVE 2) Non-VA CARISOPRODOL 350MG TAB 350MG BY MOUTH THREE ACTIVE TIMES A DAY 3) Non-VA DOXAZOSIN MESYLATE 8MG TAB 4MG BY MOUTH AT ACTIVE BEDTIME 4) Non-VA GLIMEPIRIDE 4MG TAB 4MG BY MOUTH ONCE A DAY ACTIVE 5) Non-VA LISINOPRIL 40MG TAB 20MG BY MOUTH ONCE A DAY ACTIVE 6) Non-VA METOPROLOL SUCCINATE 200MG SA TAB 100MG BY ACTIVE MOUTH ONCE A DAY 7) Non-VA OXYCODONE 5MG/ACETAMINOPHEN 325MG TAB 1 TABLET ACTIVE BY MOUTH EVERY 6 HOURS NEEDED 8) Non-VA SIMVASTATIN 40MG TAB 20MG BY MOUTH EVERY ACTIVE EVENING 9) Non-VA VITAMIN B COMPLEX CAP 1 CAPSULE BY MOUTH ONCE ACTIVE A DAY 11 Total Medications All meds were reviewed with patient. Allergy: CODEINE OTHER HISTORY FAMILY HISTORY: No premature coronary disease or sudden SOCIAL HISTORY: TOBACCO USE - 03/31 ppd ALCOHOL USE - No COCAINE - No Other recreation drugs - No REVIEW OF SYSTEMS Review of systems: All 14 systems reviewed are negative except as noted in HPI. OBJECTIVE/DATA PHYSICAL EXAM Vitals as above General: Well developed, well nourished, no acute distress HEENT: No oral mucosa cyanosis, anicteric, mucous membranes moist Heart: RRR, normal S1 and S2, no m/r/g Lungs: Normal work of breathing, CTAB Pulses: Equal DP and or PT pulses bilat Abdomen: soft, no tender Extremities: No clubbing or cyanosis, no peripheral edema or varicosities. Skin: No rash Neurological/Psychiatric: Alert and orient to time, place and person. Normal affect and mood. Grossly moving all 4 extremities. DIAGNOSTIC DATA CBC WBC:11.2 10*3/uL (02/09/23 11:02) Hgb:HGB 13.2 g/dL 02/09/2023 11:02 HCT:39.2 % (02/09/23 11:02) PLT:PLT 186 10*3/uL 02/09/2023 11:02 Chem 7 Glu: GLUCOSE 153 H mg/dL 02/09/2023 11:02 BUN: 37.1 mg/dL H (02/09/23 11:02) Creatinine: CREATININE 4.47 H mg/dL 02/09/2023 11:02 Sodium: SODIUM 138 mEq/L 02/09/2023 11:02 Potassium: POTASSIUM 4.3 mEq/L 02/09/2023 11:02 CHLORIDE: 96 mEq/L L (02/09/23 11:02) Co2: CARBON DIOXIDE 30 mEq/L 02/09/2023 11:02 ASSESSMENT AND PLAN Pt with RF and no current angina equivalent. Will proceed with stress test. CONSENT FOR STRESS TESTING The rationale, expected symptoms of stress test and complications attributable to stress test were elaborated and discussed with the patient. His questions were addressed. He acknowledged understanding of the issues discussed. Informed consent was obtained. EXERCISE: Treadmill: Individualized Modified Exercise Protocol used Rest SAO2: 95% Peak SAO2: 93% RESULTS OF EXERCISE TEST BASELINE EKG: TWI in II, aVF, V4-[address] Segment Changes: Yes, ST depressions in V5 < 1 mm without JOSIE in AVR, did not meet criteria for ischemia. Patient denied any symptoms during the exercise portion of the test. Dysrhythmias: baseline a-fib, infrequent PVCs Complications: none Reason for Stopping: fatigue SUMMARY EXERCISE: TREADMILL Individualized Modified Exercise Protocol used Total exercise time (min): 5:06 Peak METs: 3.3 Peak calculated VO2 (mL/kg/min): 11.55 % of the age/gender adjusted VO2 Max of Healthy Sedentary Population (100% is average): 48.5% Peak HR: 96 % of age predicted Peak HR: 64% HR in recovery: 1 Min: 86 2 Min: 90 ----- 1. Exercise capacity: Very poor 2. DTS = -0.6 consistent with medium risk of future CV events, 3. BP response: Normal Baseline: 156/93 Peak: 178/62 ----- CONCLUSIONS -Submaximal exercise stress test. -No ischemic ECG changes at achieved workload as ST depression in V5 did not meet criteria for ischemia -No symptoms of angina or anginal equivalent. -Elevated BP at baseline. -Very poor functional capacity. -Decreased Heart rate deceleration in recovery -Conversion to pharmacologic testing required due to inadequate HR target achieved. See below for results. -Nuclear imaging report to follow. -Stress ECG portion results discussed with the patient at the end of the test. The results of the stress test were discussed with the patient. The patient was informed that a NEGATIVE stress test does not exclude presence of atherosclerosis, particularly non-obstructive coronary stenoses (minor coronary blockages). The patient was advised that some of these minor blockages may rupture, occasionally resulting in heart attack. He acknowledged understanding of the issues discussed. The patient left the Stress Test Lab in stable condition with NO symptoms. --------- Pharmacologic Stress Test PHARMOCALOGIC AGENT: lexiscan RESULTS OF PHARMACOLOGIC STRESS ECG CHANGES DURING/AFTER PHARMACOLOGIC STRESS TEST: none DYSRHYTHMIAS: none BP RESPONSES Baseline BP: 181/86 BP during infusion: 171/83 SYMPTOMS/COMPLICATIONS: shortness of breath, improved with caffeine REASON FOR STOPPING: Protocol Completed Reversal agent given: No ======= SUMMARY ======= Non-ischemic EKG stress portion. Imaging stress report to follow. /krystal/ JONAS GROSS MD POLICE COMMISSIONER Signed: 11/14/2023 14:13 /krystal/ Raya Roland MD, FACC, FACP STAFF PHYSICIAN - Cardiology Cosigned: 11/14/2023 22:50 RAYA ROLAND [facility] Nov 14, 2023 03:35 PM CARDIOLOGY DIAGNOS TIC STUDY REPORT: LOCAL TITLE: CP EXERCISE STRESS TEST STL STANDARD TITLE: CARDIOLOGY DIAGNOSTIC STUDY REPORT DATE OF NOTE: NOV 14, 2023@15:35:48 ENTRY DATE: NOV 14, 2023@15:35:48 AUTHOR: CLINICAL,DEVICE PRO EXP COSIGNER: URGENCY: STATUS: COMPLETED DOCUMENT IN VISTA IMAGING SEE FULL REPORT IN VISTA IMAGING SIGNATURE NOT REQUIRED SEE SIGNATURE IN VISTA IMAGING (zzMuse Exercise) AUTO-INSTRUMENT DIAGNOSIS Procedure: [id number] Stress Test Release Status: Released Off-Line Verified Date Verified: Nov 14, 2023@15:35:40 30293 Protocol Name: Alexsanderiscan [id number] Time In Exercise Phase:00:00:17 23478 Max. Systolic BP: 203 mmHg 65085 Max Diastolic BP: 90 mmHg 94889 Max Heart Rate: 93 BPM 34603 Max Predicted Heart Ihy855 BPM 64398 Reason For Termination:LEXISCAN COMPLETE 92966 Reason for Test: TRANSPLANT EVALUATION 67608 Target HR Formula: (220 - Age)*100% 20203 Overall Impression: SEE STRESS TEST PROCEDURE NOTE for DETAILS Administrative Closure: 11/14/2023 by: CLINICAL,DEVICE PROXY SERVICE CLINICAL,DEVICE PROXY SERVICE [facility] Nov 14, 2023 11:14 AM CARDIOLOGY DIAGNOS TIC STUDY NOTE: LOCAL TITLE: STRESS TEST PROCEDURE STANDARD TITLE: CARDIOLOGY DIAGNOSTIC STUDY NOTE DATE OF NOTE: NOV 14, 2023@11:14 ENTRY DATE: NOV 14, 2023@11:15:03 AUTHOR: JONAS GROSS EXP COSIGNER: RAYA ROLAND URGENCY: STATUS: COMPLETED STRESS TEST PROCEDURE Has ADDENDA STRESS TEST PROCEDURE NOTE Vitals Pulse: 82 (04/06/2022 10:15) BP: 154/105 (04/06/2022 10:15) RESP: 16 (12/29/2021 12:51) Height: 72 in [182.9 cm] (12/26/2018 08:57) Weight: 225.9 lb [102.47 kg] (12/29/2021 12:51) Reason for consult: pre-transplant work-up Referring provider: SINDHU PEDROZA His chart is reviewed. History is taken from the patient. HISTORY OF PRESENT ILLNESS 73M w/ a PMH of HTN, T2DM, a-fib not on AC, RCC, ESRD on iHD who presents for stress test as a part of renal transplant work-up. Patient denies a history of chest pain, palpitations, FAGAN, or lightheadedness/dizziness. Does note some shortness of breath when he was admitted for volume overload iso ESRD 1 year ago. Denies return of symptoms since that time. Today, at rest, he denies chest pain, dyspnea, lightheadedness/dizziness, orthopnea, PND, or lower extremity edema. Cardiac Hx: No PAST MEDICAL HISTORY The OBJECT Active Problem List was NOT found...Contact IRM. CURRENT MEDICATIONS Active Outpatient Medications (including Supplies): Active Outpatient Medications Status 1) NICOTINE 14MG/24HR PATCH APPLY 1 PATCH TO SKIN SITE ACTIVE EVERY MORNING FOR TOBACCO CESSATION REMOVE OLD PATCH BEFORE APPLYING NEW ONE. ROTATE SITES. DO NOT SMOKE WHILE WEARING PATCH. 2) NICOTINE POLACRILEX 2MG MINI LOZENGE DISSOLVE 1 ACTIVE LOZENGE BY MOUTH EVERY 4 HOURS NEEDED FOR TOBACCO CESSATION DO NOT SMOKE WHILE USING THIS MEDICATION Active Non-VA Medications Status 1) Non-VA ALPRAZOLAM 1MG TAB 1MG BY MOUTH TWICE A DAY ACTIVE 2) Non-VA CARISOPRODOL 350MG TAB 350MG BY MOUTH THREE ACTIVE TIMES A DAY 3) Non-VA DOXAZOSIN MESYLATE 8MG TAB 4MG BY MOUTH AT ACTIVE BEDTIME 4) Non-VA GLIMEPIRIDE 4MG TAB 4MG BY MOUTH ONCE A DAY ACTIVE 5) Non-VA LISINOPRIL 40MG TAB 20MG BY MOUTH ONCE A DAY ACTIVE 6) Non-VA METOPROLOL SUCCINATE 200MG SA TAB 100MG BY ACTIVE MOUTH ONCE A DAY 7) Non-VA OXYCODONE 5MG/ACETAMINOPHEN 325MG TAB 1 TABLET ACTIVE BY MOUTH EVERY 6 HOURS NEEDED 8) Non-VA SIMVASTATIN 40MG TAB 20MG BY MOUTH EVERY ACTIVE EVENING 9) Non-VA VITAMIN B COMPLEX CAP 1 CAPSULE BY MOUTH ONCE ACTIVE A DAY 11 Total Medications All meds were reviewed with patient. Allergy: CODEINE OTHER HISTORY FAMILY HISTORY: No premature coronary disease or sudden SOCIAL HISTORY: TOBACCO USE - 03/31 ppd ALCOHOL USE - No COCAINE - No Other recreation drugs - No REVIEW OF SYSTEMS Review of systems: All 14 systems reviewed are negative except as noted in HPI. OBJECTIVE/DATA PHYSICAL EXAM Vitals as above General: Well developed, well nourished, no acute distress HEENT: No oral mucosa cyanosis, anicteric, mucous membranes moist Heart: RRR, normal S1 and S2, no m/r/g Lungs: Normal work of breathing, CTAB Pulses: Equal DP and or PT pulses bilat Abdomen: soft, no tender Extremities: No clubbing or cyanosis, no peripheral edema or varicosities. Skin: No rash Neurological/Psychiatric: Alert and orient to time, place and person. Normal affect and mood. Grossly moving all 4 extremities. DIAGNOSTIC DATA CBC WBC:11.2 10*3/uL (02/09/23 11:02) Hgb:HGB 13.2 g/dL 02/09/2023 11:02 HCT:39.2 % (02/09/23 11:02) PLT:PLT 186 10*3/uL 02/09/2023 11:02 Chem 7 Glu: GLUCOSE 153 H mg/dL 02/09/2023 11:02 BUN: 37.1 mg/dL H (02/09/23 11:02) Creatinine: CREATININE 4.47 H mg/dL 02/09/2023 11:02 Sodium: SODIUM 138 mEq/L 02/09/2023 11:02 Potassium: POTASSIUM 4.3 mEq/L 02/09/2023 11:02 CHLORIDE: 96 mEq/L L (02/09/23 11:02) Co2: CARBON DIOXIDE 30 mEq/L 02/09/2023 11:02 ASSESSMENT AND PLAN Pt with RF and no current angina equivalent. Will proceed with stress test. CONSENT FOR STRESS TESTING The rationale, expected symptoms of stress test and complications attributable to stress test were elaborated and discussed with the patient. His questions were addressed. He acknowledged understanding of the issues discussed. Informed consent was obtained. EXERCISE: Treadmill: Individualized Modified Exercise Protocol used Rest SAO2: 95% Peak SAO2: 93% RESULTS OF EXERCISE TEST BASELINE EKG: TWI in II, aVF, V4-[address] Segment Changes: Yes, ST depressions in V5 < 1 mm without JOSIE in AVR, did not meet criteria for ischemia. Patient denied any symptoms during the exercise portion of the test. Dysrhythmias: baseline a-fib, infrequent PVCs Complications: none Reason for Stopping: fatigue SUMMARY EXERCISE: TREADMILL Individualized Modified Exercise Protocol used Total exercise time (min): 5:06 Peak METs: 3.3 Peak calculated VO2 (mL/kg/min): 11.55 % of the age/gender adjusted VO2 Max of Healthy Sedentary Population (100% is average): 48.5% Peak HR: 96 % of age predicted Peak HR: 64% HR in recovery: 1 Min: 86 2 Min: 90 ----- 1. Exercise capacity: Very poor 2. DTS = -0.6 consistent with medium risk of future CV events, 3. BP response: Normal Baseline: 156/93 Peak: 178/62 ----- CONCLUSIONS -Submaximal exercise stress test. -No ischemic ECG changes at achieved workload as ST depression in V5 did not meet criteria for ischemia -No symptoms of angina or anginal equivalent. -Elevated BP at baseline. -Very poor functional capacity. -Decreased Heart rate deceleration in recovery -Conversion to pharmacologic testing required due to inadequate HR target achieved. See below for results. -Nuclear imaging report to follow. -Stress ECG portion results discussed with the patient at the end of the test. The results of the stress test were discussed with the patient. The patient was informed that a NEGATIVE stress test does not exclude presence of atherosclerosis, particularly non-obstructive coronary stenoses (minor coronary blockages). The patient was advised that some of these minor blockages may rupture, occasionally resulting in heart attack. He acknowledged understanding of the issues discussed. The patient left the Stress Test Lab in stable condition with NO symptoms. --------- Pharmacologic Stress Test PHARMOCALOGIC AGENT: lexiscan RESULTS OF PHARMACOLOGIC STRESS ECG CHANGES DURING/AFTER PHARMACOLOGIC STRESS TEST: none DYSRHYTHMIAS: none BP RESPONSES Baseline BP: 181/86 BP during infusion: 171/83 SYMPTOMS/COMPLICATIONS: shortness of breath, improved with caffeine REASON FOR STOPPING: Protocol Completed Reversal agent given: No ======= SUMMARY ======= Non-ischemic EKG stress portion. Imaging stress report to follow. /krystal/ JONAS GROSS MD POLICE COMMISSIONER Signed: 11/14/2023 14:13 /krystal/ Raya Roland MD, FACC, FACP STAFF PHYSICIAN - Cardiology Cosigned: 11/14/2023 22:50 11/14/2023 ADDENDUM STATUS: COMPLETED I saw, interviewed and examined the patient on 11/14/2023, and I have reviewed the patient's pertinent notes, diagnostic studies,and medications in his Electronic Medical Records. I reviewed the stress test data with the Informaticist, Dr. GROSS on that date and I concur with his/her assessment, as well as interpretation of the stress test that we formulated together based on the pertinent available data with the following clarifications, and revisions: # DTS was 2 consistent with moderate risk of future cardiac events # HR deceleration is NOT valid because the patient's cardiac rhythm is atrial fibrillation I. Exercise Stress Test: The patient had a submaximal treadmill exercise test to the end-point of fatigue/SOB with diminished chronotropic response His aerobic capacity was POOR, 52% LOWER than the age/gender-adjusted VO2 max of sedentary healthy population. There was NO ECG evidence of exercise-induced myocardial ischemia. II. Pharmacologic Stress Test: was performed uneventfully NO ECG evidence of myocardial ischemia was detected The results of the stress test were discussed with the patient. The patient was informed that a NON-ischemic ECG or other imaging stress tests do not exclude presence of coronary atherosclerosis, particularly non-obstructive CAD (in layman's terms). The patient was also advised that occasionally these mild stenoses may develop erosion/crack/rupture resulting in coronary thrombosis and heart attack (ALL in layman's terms). The veterans's questions and concerns were addressed. In addition, the significance and impact of aerobic capacity on long-term outcome and and quality of life were discussed The Baker was advised that the results of Nuclear Medicine Images will become available later this afternoon and they will be forwarded to the patient's referring provider who will communicate with the Baker. He acknowledged understanding of the concerns discussed. The Baker left the Stress Test Lab in stable condition with NO symptoms. Thank you for your referral and allowing us to participate in care of your patient. 48 minutes were expended for this encounter. /krystal/ Raya Roland MD, FACC, FACP STAFF PHYSICIAN - Cardiology Signed: 11/14/2023 22:57 Receipt Acknowledged By: * AWAITING SIGNATURE * SINDHU PEDROZA JOSHUA M [facility] Nov 14, 2023 10:55 AM CARDIOLOGY PROCEDU RE NOTE: LOCAL TITLE: CARDIOLOGY PROCEDURE REPORT STL STANDARD TITLE: CARDIOLOGY PROCEDURE NOTE DATE OF NOTE: NOV 14, 2023@10:55 ENTRY DATE: NOV 14, 2023@10:55:45 AUTHOR: DAVIN SUAREZ EXP COSIGNER: URGENCY: STATUS: COMPLETED STRESS TEST PROCEDURE NOTE Patient brought into the stress lab and prepped for the stress test at 1023 Baseline ECG obtained and given to Dr Gross for review Pt underwent treadmill exercise per individualized modfied protocol. Unable to reach desired workload of 85% mPHR Lexiscan injected by Dr. Gross Aminophylline given : N Complications: NONE Stress ECG transferred to MUSE system: Y Stress ECG given to Dr. Gross for review at the end of the test Patient discharged from stress lab in stable condition See note for further details. /krystal/ DAVIN SUAREZ [facility] Stress Dip Painter Signed: 11/14/2023 10:57 DAVIN SUAREZ [facility]
--- OUTSIDE RECORDS SUMMARY | 2024-05-01 09:24 | XMS_ITS | Encounter Summary ---
Author Organization [facility] Address [address] [place] [address] Phone Care Team Providers Care Edge Dyer Name Role Phone Morgan Mercado Primary Care Provider Mac Ervin MD Unavailable [phone] Encounter Details Date Type Department Care Team (Late st Contact Info) Description 10/15/2021 Telephone [facility] [address] [place] [address] Mac Ervin MD [address] [place] [address] Social History Tobacco Use Types Packs/Day Years [...] on file documented as of this encounter Miscellaneous Notes * Telephone Encounter - Delfina Moraes - 10/15/2021 11:32 AM CDT Pt's didn't get transportation set up. Son will call back to reschedule boat buffer plastic appt. documented in this encounter Plan of Treatment Not on file documented as of this encounter Visit Diagnoses Not on filedocumented in this encounter Care Teams Edge Dyer Relationship Specialty Start Date End Date Morgan Mercado [address] [place] [address] PCP - General Family Medicine 05/16/15 Mac Ervin MD [address] [place] [id number] Consulting Physician Oncology 09/21/21 documented as of this encounter
--- OUTSIDE RECORDS SUMMARY | 2024-05-01 09:24 | XMS_ITS | Encounter Summary ---
Author Organization [facility] Address [address] [place] [address] Care Team Providers Care Bowling Ball Marker Name Role Phone Morgan Mercado MD Primary Care Provider + [phone] Morgan Mercado MD Primary Care Provider [phone] Brisa Lowe MD Unavailable [phone] Aamir Thakkar MD Unavailable [phone] Rodolfo Berman MD Unavailable [phone] Encounter Details Date Type Department Care Team (Late st Contact Info) Description 05/04/2016 Orders Only [facility] ProviderValeri MD [address] [place] [address] Social History Tobacco Use Types Packs/Day Years Used Date Smoking Tobacco: Light Smoker Comments:Smoking History Pac ks/day: 0.25 Packs Alcohol Use Standard Drinks/Week Comments No 0 (1 standard drink = 0.6 oz pur e alcohol) Sex and Gender Information Value Date Recorded Sex Assigned at Not on file Legal Sex Male 10:59 AM [employer]STER [employer] Gender Identity Not on file Sexual Orientation Not on file documented as of this encounter Plan of Treatment Not on file documented as of this encounter Procedures Procedure Name Priority Date/Time Associated Diagnosis Comments CARDIOLOGY REPORT 05/04/2016 documented in this encounter Results * CARDIOLOGY REPORT (05/04/2016) Anatomical Region Laterality Modality Other Narrative 05/04/2016 Ordered by an unspecified provider. us Historical Provider [facility] MIRZA MAHAN Final Result documented in this encounter Visit Diagnoses Not on filedocumented in this encounter Care Teams Bowling Ball Marker Relationship Specialty Start Date End Date Morgan Mercado MD PCP - General 06/25/16 Morgan Mercado MD PCP - General 01/26/11 06/24/16 Brisa Lowe MD Consulting Physician Cardiology 08/26/21 Aamir Thakkar MD [address] [place] [address] Consulting Physician Nephrology 05/15/22 Rodolfo Berman MD [address] [address] Surgeon Surgery 09/02/22 documented as of this encounter
--- OUTSIDE RECORDS SUMMARY | 2024-05-01 09:24 | XMS_ITS | Encounter Summary ---
Author Name [facility] Address [address] [place] [address] Care Team Providers Care Behavioral [employer] Counselors Name Role Phone LEVI RODRÍGUEZ Primary Care [...] AID (WNR) Mar 28, 2013 MEDICAI D [id number] [phone] YOU MCLEAN PATIENT MEDICARE (WNR) MEDICARE (M) PART B Jan 27, 2016 PART B [id number] YOU MCLEAN PATIENT MEDICARE (WNR) MEDICARE (M) PART A Jan 27, 2016 PART A [id number] YOU MCLEAN PATIENT MEDICARE (WNR) MEDICARE (M) PART A Jan 27, 2016 PART A [id number] YOU MCLEAN PATIENT MEDICARE (WNR) MEDICARE (M) PART B Jan 27, 2016 PART B [id number] YOU MCLEAN PATIENT Selected Encounter This section includes the information on record at [place] for the Encounter. Date/Time Encounter Type Encounter Description Reason Provider Source Nov 09, 2023 10:00 AM TARGETED CASE MANAGEMENT ASSISTED HEMODIALYSIS ICD-10-CM N18.6 End stage renal disease EVA HATCH [facility] Encounter Template Text not used by [facility] Assessments - Encounter Diagnoses This section includes the primary and secondary diagnoses documented for the Encounter. Date/Time Primary/Secondary Diagnosis Diagnosis Name Provider Source Nov 23, 2023 03:11 PM PRIMARY End stage renal disease EVA HATCH [facility] Plan of Treatment: Future Appointments (+ 6 months) and Future Tests (+/- 45 days) The Plan of Treatment section includes future care activities for the patient from all [place] treatmentfacilities. This section includes future appointments and future orders which are active, pending or scheduled. Future Appointments This section includes appointments that were scheduled to occur 6 months from the date of the Encounter, up to a maximum of 20 appointments. The data comes from all [place] treatment facilities. Appointment Date/Time Appointment Type Appointme nt Facility Name Nov 14, 2023 09:00 AM AMBULATORY - MEDICINE [facility] Nov 14, 2023 10:00 AM AMBULATORY - MEDICINE [facility] Nov 23, 2023 08:30 AM AMBULATORY - MEDICINE [facility] Dec 09, 2023 11:00 AM AMBULATORY - MEDICINE [facility] Dec 27, 2023 08:00 AM AMBULATORY - NONE [facility] Dec 27, 2023 08:30 AM AMBULATORY - MEDICINE [facility] Jan 02, 2024 10:00 AM AMBULATORY - MEDICINE [facility] Jan 04, 2024 08:00 AM AMBULATORY - MEDICINE [facility] Jan 04, 2024 11:00 AM AMBULATORY - SURGERY [facility] Jan 23, 2024 01:00 PM AMBULATORY - NONE [facility] Social History: Smoking Status (Most current) and Tobacco Use (All prior to encounter date) This section includes the most current, and the historical, smoking and tobacco- related health factors from the [facility] facility where the Encounter took place. Current Smoking Status This section includes the most current smoking, or tobacco-related health factor, from the [place] facility where the Encounter took place. Date/Time Current Smoking Status Comment Facil ity Dec 26, 2019 09:17 AM VA-TOBACCO DOESNT USE [place] 30 MIN WAKEUP [facility] Tobacco Use History This section includes a history of the smoking, or tobacco-related health factors, that were collected on or before the date of the Encounter. The data comes from the [place] facility where the Encounter took place. Date/Time Smoking Status/Tobacco Use Comment F acility Dec 26, 2019 09:17 AM VA-TOBACCO USE 30 YEARS OR MORE [facility] Dec 26, 2019 09:17 AM VA-TOBACCO USE ADVICE [facility] Dec 26, 2019 09:17 AM VA-TOBACCO USE TARIFF CLERK NO [facility] Dec 26, 2019 09:17 AM VA-TOBACCO USE MED NO [facility] Dec 26, 2019 09:17 AM VA-TOBACCO USER EVERY DAY [facility] Jun 26, 2014 09:29 AM CURRENT TOBACCO USER [facility] Sep 04, 2013 09:12 AM CURRENT TOBACCO USER [facility] Sep 04, 2013 09:12 AM TOBACCO MEDS OFFER ED BUT DECLINED [facility] Sep 01, 2001 01:01 PM CURRENT TOBACCO USER [facility] Sep 01, 2001 01:01 PM TOBACCO USE [facility] Sep 21, 2000 07:28 AM CURRENT TOBACCO USER [facility] Sep 21, 2000 07:28 AM TOBACCO USE [facility] Jul 21, 2000 01:43 PM CURRENT TOBACCO USER [facility] Advance Directives: All historical and current Section Date Range: From patient's date of to the date document was created. This section includes ALL of a patient's completed or amended [place] Advance and Rescinded Directives. The entries below indicate that a directive exists for the patient, but an actual copy is not included with this document. The data comes from all [place] facilities. Date Advance Directives Provider Source August 05, 1995 ADVANCE DIRECTIVE ROGER MICHELLE [facility] Radiology Reports: +/- 30 days of [...] the Encounter. The data comes from all [place] treatment facilities. Date/Time Radiology Report Provider Source Nov 14, 2023 08:07 AM NM MYOCARDIAL P SP ECT STRESS/REST-P: YOU MCLEAN [id number] -1950 Ex Date: NOV 14, 2023@08:07 Req Phys: MONAE PEDROZA Loc: -RENAL CHR ASSIST TXP EVAL ( Img Loc: -NUCLEAR MEDICINE Service: Unknown [address] [address] (Case [id number] COMPLETE) NM MYOCARDIAL PERF SPECT STRESS/R(NM Detailed) CPT:73823 Reason for Study: TRANSPLANT EVAL (Case [id number] COMPLETE) TC-99M TETROFOSMIN (MYOVIEW) (NM Detailed) CPT:A9502 (Case 207 COMPLETE) TC-99M TETROFOSMIN (MYOVIEW), PE(NM Detailed) CPT:A9502 (Case 208 COMPLETE) NON-HEU TC-99M ADD-ON PER STUDY D(NM Detailed) CPT:Q9969 (Case 624 COMPLETE) REGADENOSON INJECTION (NM Detailed) CPT:J2785 Clinical History: TRANSPLANT EVAL Report Status: Verified Date Reported: NOV 14, 2023 Date Verified: NOV 14, 2023 Clinical Trial Specialist E-Sig:/ES/Gama Mack MD,PhD Report: PATIENT NAME: YOU MCLEAN CASE #: [id number], [id number], [id number], [id number], [id number] EXAMINATION: Rest/Lexiscan Stress Gated SPECT Myocardial Imaging [...] code: 1000. Dictated by Forest Sierra MD (Hospital Pharmacy Technician). I, Gama Mack, have reviewed the images and report and concur with these findings. Primary Interpreting Staff: Gama Mack MD,PhD, Nuclear Medicine Physician (Clinical Trial Specialist) Primary Interpreting Resident: FOREST SIERRA, Resident Physician /GAMA GARCIA [facility] Encounter Notes: All associated encounter notes This section contains the clinical notes associated to the Encounter. Date/Time Encounter Note(s) Provider Source Nov 09, 2023 10:00 AM SOCIAL WORK CONSUL T: LOCAL TITLE: SOCIAL WORK CONSULT ST STANDARD TITLE: SOCIAL WORK CONSULT DATE OF NOTE: NOV 09, 2023@10:00 ENTRY DATE: NOV 09, 2023@10:44:49 AUTHOR: EVA HATCH COSIGNER: URGENCY: STATUS: COMPLETED SOCIAL WORK ASSESSMENT FOR TRANSPLANT CANDIDATES DATE OF EVALUATION: 11/09/2023 [facility]ERRING [facility] ADDRESS: [address] [place] [address]/STATE: [place] [address] KNITTED CLOTH EXAMINER COMPLETING THIS EVALUATION: ELISE Sterling,SAFETY INVESTIGATOR/CAUSE ANALYST PHONE: [phone] I. IDENTIFYING INFORMATION NAME: You Mclean SSN: [id number] CURRENT ADDRESS: [address] [place] [id number] PHONE (HOME): ([phone]) PHONE (WORK): () PHONE (CELL): ([phone]) : 1950 AGE: 73 HOUSING: Apartment complex in [place], [place]. PATIENT LIVES WITH: reported that he lives alone in an apartment in [place], [place]. NAME OF SUPPORT PERSON PRESENT AT TIME OF THIS EVALUATION: Veterans son in law Ramiro Rothman came to the appointment with him. His son Julian Mclean will be his support person COMMENTS/CONCERNS: none noted HISTORY: reported that he served in the [employer] during the [place] War era. He was honorably discharged in 1972. BRANCH: [employer] ACTIVE DUTY DATES: FROM: [employer] 08/14/1969 TO: 06/20/1972 DUTY STATION(S): [place] and [place]. 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 COMBAT SERVICE: Yes FORMER POW? No VA RATING: SX PRIORITY GROUP: 1 SC DISABILITY? 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 EDUCATION/EMPLOYMENT HISTORY HIGHEST LEVEL/DEGREE: graduated [employer]. EMPLOYED? 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 WORK HISTORY: He worked at [employer] before going out due to back injury. 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 PATIENT'S EMPLOYMENT/EDUCATION PLANS FOLLOWING TRANSPLANT: At this time, Grandfield does not have plans for employment and/or education post-transplant. SPOUSE/SIGNIFICANT OTHER EMPLOYED? Grandfield has been since 1972. WHERE? N/A III. FINANCIAL RESOURCES MONTHLY INCOME: VA Disability $4100 Social Security $650 Workers Comp 1800 DEBTS: credit card debt roughly $2,0000 rent: $1,000 POTENTIAL SOURCES OF ADDITIONAL INCOME: N/A HEALTH INSURANCE COVERAGE: VA and Medicare IV. MARITAL/FAMILY HISTORY SIGNIFICANT OTHER: Azael has been 1973. PARENTS: Grandfield reported that both of his biological parents are . His father passed from complications from diabetes and heart problems. His mom was 93 when she passed. SIBLINGS: Grandfield had 4 siblings all who have . A brother with cancer and two of his sisters from old age and sepsis CHILDREN: Grandfield reported that he has 2 children. His son Julian lives in [place], [place] and his daughter Champ is [facility] OTHERS: N/A FLOOR AND WALL APPLIER LIQUID ISSUES: N/A JOB COMMITMENTS: N/A FINANCIAL SITUATION: Grandfield reported being financially stable. WILLINGNESS TO PARTICIPATE IN THE TRANSPLANT PROCESS: Grandfield is eager to participate in the transplant process. CURRENT/PAST ALCOHOL/DRUG USE: reported that he hasnt drank alcohol in the last year. HEALTH STATUS: reported that his health is ok for me age but my kidneys got my boday out of whack . V. SOCIAL SUPPORT PRIMARY SUPPORT PERSON: NAME: Julian Mclean ADDRESS: [address] [place] [address] AGE: 56 PHONE (HOME): () PHONE (WORK): ()- PHONE (CELL): LENGTH OF TIME AVAILABLE: ABILITY TO ACCOMPANY/TRANSPORT THE PATIENT TO/FROM APPOINTMENTS: ABILITY TO ASSIST WITH MEDICATIONS: ABILITY TO ENSURE COMPLIANCE: USE OF ALCOHOL/DRUGS: ADDITIONAL SUPPORT PERSON: NAME: ADDRESS: AGE: PHONE (HOME): () PHONE (WORK): () PHONE (CELL): () LENGTH OF TIME AVAILABLE: ABILITY TO ACCOMPANY/TRANSPORT THE PATIENT TO/FROM APPOINTMENTS: ABILITY TO ASSIST WITH MEDICATIONS: ABILITY TO ENSURE COMPLIANCE: USE OF ALCOHOL/DRUGS: COMPLETED ADVANCE DIRECTIVE FORMS? No, but agrees to complete one. WHERE ARE THEY LOCATED? N/A ANY POTENTIAL LIVING DONORS? No DONOR'S NAME: DONOR'S AGE: N/A RELATIONSHIP TO THE PATIENT: N/A . BACKGROUND CLINICAL INFORMATION DIAGNOSIS: Chronic Kidney Disease Stage V ONSET OF DISEASE Grandfield reported that he has been on dialysis for over a year. He reported he went to have blookwork done and that's how it came out he had kidney failure. While admiited to an outside hospital he initiated dialysis. HOW HAS IT AFFECTED PATIENT'S LEVEL OF FUNCTIONING/ACTIVITY LEVEL: Grandfield reported that he tires easily after dialysis but usually feels btter the next day. WHAT IS PT'S UNDERSTANDING OF TRANSPLANT PROCESS? Grandfield aware transplant [place] take place out of state. He also understands risk including infection, rejection and/or . He also understands that just because he is going through this process does not guarantee him a kidney transplant. HAS ANYONE DISCUSSED THE PROCESS WITH THE PATIENT? Yes, [facility] Monae Pedroza. KNITTED CLOTH EXAMINER'S REVIEW OF COMPLIANCE HISTORY: APPOINTMENTS: A review of CPRS reflects that generally keeps all of his appointments.. MEDICATIONS: Grandfield reported that he is compliant with medications. DIET: follows a renal diet as much as he can. SOURCE(S) REVIEWED: CPSR, and disclosure. VII. SUBSTANCE USE/ABUSE ALCOHOL: reported his last alcoholic drink was over ayear ago. Hu used to mavis bud light beer. AMOUNT USED: 2 or 3 TIME FRAME: usually at equ or LAST USED: over a year ago. REASON FOR QUITTING: Getting older and couldn't afford it and grew out of it. TREATMENT HISTORY: Denied SUBSTANCES: marijuana AMOUNT USED: gummy TIME FRAME: monthly LAST USED: last month REASON FOR QUITTING: N/A TOBACCO: half a pack of cigarettes per day CIGARETTE: half Packs/Day Yrs:3/4 PIPE: 0 Bowls/Day Yrs:0 CIGAR: 0 Cigar/Day Yrs:0 SNUFF: 0 Times/Day Yrs:0 LAST USED: this morning REASON FOR QUITTING: Willing to stop as part of transplant process. TREATMENT HISTORY: Denied. OTHER: Willing to attend treatment? Yes Willing to submit to random screening? Yes VIII. MENTAL HEALTH PAST AND PRESENT TREATMENT/HOSPITALIZATIONS: Denied; none noted EMOTIONAL STATUS (Anxiety, Depression): is 70%SC for PTSD and he is being followed by . PAST ABUSE (Physical, Sexual): Denied MENTAL STATUS (Orientation, Memory, Intelligence, Mood): Grandfield is alert and oriented x4. He is of normal intelligence. IX. LEGAL ISSUES DUIs: reported he had a DUI in 2009. HALFWAY/RESIDENTIAL TIME (CURRENT/PENDING): Denied GAMBLING ISSUES: Denied OTHER: N/A X. SOCIAL ACTIVITIES HOBBIES: Patient reported his hobbies are fishing SCIENTOLOGIST PREFERENCE/SPIRITUALITY: reported that his bahai preference is Caodaism. 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 He is also a member of [employer]. XI. ASSESSMENT/PLAN KNITTED CLOTH EXAMINER'S OVERALL ASSESSMENT: At this time appears to be a good candidate for transplant. His family is supportive and he is being followed by MH for PTSD. He appears to be stable at this time. CURRENT STATUS: appears to be stable and ready to proceed with the transplant process. A review of CPRS reflects that he is compliant with medical appointments. He appears to have a good support system. He is being followed by MH. FURTHER TREATMENT NEEDS: unknown by this journalists and other writers RECOMMENDATIONS: At this time, this SAFETY INVESTIGATOR/CAUSE ANALYST recommends that Grandfield move forward with the transplant process. He is open to drug screens if suggested. He is compliant with medications. ASSESSMENT-PATIENT'S CHEMICAL DEPENDENCY: Grandfield denies chemical dependence. reported drinking maybe 4 times per week. He agrees to stop taking gummies with thc as part of the transplant process. MENTAL HEALTH: At this time, 's mental health appears to be ok. He has a diagnosis of PTSD. He denies SI/HI. SOCIAL SUPPORT: Grandfield reported his chidren and caregiver are supportive. His son in law is a source of social support as well. TRANSPLANT READINESS: At this time, appears to be ready to process with transplant and voiced being eager to do so. COPING SKILLS: At this time, appears to have great coping skills. Time spent completing evaluation: 120 minutes Time spent reviewing CPRS: 60 minutes /rkystal/ ELISE Sterling,SAFETY INVESTIGATOR/CAUSE ANALYST Licensed Clinical Scientific Database Curator Signed: 11/16/2023 22:30 EVA HATCH [facility]
--- OUTSIDE RECORDS SUMMARY | 2024-05-01 09:24 | XMS_ITS | Data Portability ---
Author Organization [place] - [facility] [employer], Main Office Address [address] [place] [address] Assessment No assessment recorded. Plan of Treatment Reminders Order Date Submit Date Provider Last Modified By Organization Details Last Modified Time Details Appointments None recorded. Lab None recorded. Referral endocrinolo gy referral 2022 023 [email or web address] Zay Conroy MD, [address], [place], [address], 11:51:47 Procedures None recorded. Surgeries None recorded. Imaging None recorded. Medication Orders None recorded. Patient TargetsNo targets recorded. Patient InstructionsNo instructions recorded. Reason for Referral Endocrinology Referral for D iabetes mellitus Referring Physician: Alexa Hernandez, Endocrinology, Encounter Date: 11/22/2022 Results Created Date Observation Date Name Description Value Unit Range Abnormal Flag Note LastModifiedBy Organization Detail LastModifiedTime 08/19/1908/19/2022 LIPID PANEL , STAND ANAHI cholesterol, total 109 mg/dL <200 normal Not Available [facility] [address] [address] [place], [address], 08/19/2022 17:33:35 08/19/1908/19/2022 LIPID PANEL , STAND ANAHI HDL cholesterol 38 mg/dL > or = 40 low Not Available [facility] [address] [place], [address], 08/19/2022 17:33:35 08/19/1908/19/2022 LIPID PANEL , STAND ANAHI triglyceride s 118 mg/dL <150 normal Not Available [facility] [address] [address] [place], [address], 08/19/2022 17:33:35 08/19/19 23 08/19/2022 LIPID PANEL , STAND ANAHI LDL-choleste rol 51 mg/dL _(daniel c) normal Refer ence range : <100 Maritza able range <100 mg/dL for prima ry preve ntion ; <70 mg/dL for patie nts with CHD or diabe tic patie nts with > or = 2 CHD risk facto rs. LDL-C is now calcu lated using the Gege n-Hop kins calcu armando n, which is a valid ated novel metho d provi ding negra r accur acy than the Fried sarai equat ion in the estim ation of LDL-C . Gege manrique SS et al. WESLEY. 2013; 310(1 9): 2061- 2068 (http ://ed ucati on.Qu maryDanal d/b/a BilltoMobile. com/f aq/FA Q164) Not Available [facility] [address] [place], [address], 08/19/2022 17:33:35 08/19/19 23 08/19/2022 LIPID PANEL , STAND ANAHI chol/HDLC ratio 2.9 (calc ) <5.0 normal Not Available [facility] [address] [address] , [place], [address], 08/19/2022 17:33:35 08/19/19 23 08/19/2022 LIPID PANEL , STAND ANAHI non HDL cholesterol 71 mg/dL _(daniel c) <130 normal For patie nts with diabe sarah plus 1 major ASCVD risk facto r, treat ing to a non-H DL-C goal of <100 mg/dL (LDL- C of <70 mg/dL ) is cam hayes optio n. Not Available [facility] [address] [place], [address], 08/19/2022 17:33:35 08/19/19 23 08/19/2022 COMPR EHENS LORAINE METAB OLIC PANEL glucose 149 mg/dL 65-99 high Fasti ng refer ence inter fanny For someo ne witho ut known diabe sarah, a gluco se value >125 mg/dL indic ates that they may have diabe sarah and this shoul d be confi rmed with a follo w-up test. Not Available [facility] [address] [address] [place], [address], 08/19/2022 17:33:36 08/19/19 23 08/19/2022 COMPR EHENS LORAINE METAB OLIC PANEL urea nitrogen (BUN) 84 mg/dL 7-25 high Not Available [facility] [address] [address] [place], [address], 08/19/2022 17:33:36 08/19/19 23 08/19/2022 COMPR EHENS LORAINE METAB OLIC PANEL creatinine 4.27 mg/dL 0.70-1 .28 high Not Available [facility] [address], [address], 08/19/2022 17:33:36 08/19/19 23 08/19/2022 COMPR EHENS LORAINE METAB OLIC PANEL eGFR 14 mL/mi n/1.7 3m2 > or = 60 low The eGFR is based on the CKD-E PI 2020 equat ion. To calcu late the new eGFR from a previ ous Creat inine or Cysta tin C resul t, go to https :[email or web address] [email or web address] lou s/ kdoqi /gfr% 5Fcal culat or Not Available [facility] [address] [address] [place], [address], 08/19/2022 17:33:36 08/19/19 23 08/19/2022 COMPR EHENS LORAINE METAB OLIC PANEL BUN/creatini ne ratio 20 (calc ) 6-22 normal Not Available [address] [address] [place], [address], 08/19/2022 17:33:36 08/19/19 23 08/19/2022 COMPR EHENS LORAINE METAB OLIC PANEL sodium 140 mmol/ L 135-14 6 normal Not Available [address], [address], 08/19/2022 17:33:36 08/19/19 23 08/19/2022 COMPR EHENS LORAINE METAB OLIC PANEL potassium 4.7 mmol/ L 3.5-5. 3 normal Not Available [address], [address], 08/19/2022 17:33:36 08/19/19 23 08/19/2022 COMPR EHENS LORAINE METAB OLIC PANEL chloride 104 mmol/ L 98-110 normal Not Available [address], [address], 08/19/2022 17:33:36 08/19/19 23 08/19/2022 COMPR EHENS LORAINE METAB OLIC PANEL carbon dioxide 26 mmol/ L 20-32 normal Not Available [address], [address], 08/19/2022 17:33:36 08/19/19 23 08/19/2022 COMPR EHENS LORAINE METAB OLIC PANEL calcium 8.6 mg/dL 8.6-10 .3 normal Not Available [address], [address], 08/19/2022 17:33:36 08/19/19 23 08/19/2022 COMPR EHENS LORAINE METAB OLIC PANEL protein, total 6.2 g/dL 6.1-8. 1 normal Not Available [address], [address], 08/19/2022 17:33:36 08/19/19 23 08/19/2022 COMPR EHENS LORAINE METAB OLIC PANEL albumin 4.3 g/dL 3.6-5. 1 normal Not Available [address], [address], 08/19/2022 17:33:36 08/19/19 23 08/19/2022 COMPR EHENS LORAINE METAB OLIC PANEL globulin 1.9 g/dL_ (calc ) 1.9-3. 7 normal Not Available [address], [address], 08/19/2022 17:33:36 08/19/19 23 08/19/2022 COMPR EHENS LORAINE METAB OLIC PANEL albumin/glob ulin ratio 2.3 (calc ) 1.0-2. 5 normal Not Available [address], [address], 08/19/2022 17:33:36 08/19/19 23 08/19/2022 COMPR EHENS LORAINE METAB OLIC PANEL bilirubin, total 0.4 mg/dL 0.2-1. 2 normal Not Available [address], [address], 08/19/2022 17:33:36 08/19/19 23 08/19/2022 COMPR EHENS LORAINE METAB OLIC PANEL alkaline phosphatase 63 U/L 35-144 normal Not Available [address], [address], 08/19/2022 17:33:36 08/19/19 23 08/19/2022 COMPR EHENS LORAINE METAB OLIC PANEL AST 12 U/L 10-35 normal Not Available [address], [address], 08/19/2022 17:33:36 08/19/19 23 08/19/2022 COMPR EHENS LORAINE METAB OLIC PANEL ALT 12 U/L 9-46 normal Not Available [address], [address], 08/19/2022 17:33:36 08/19/19 23 08/19/2022 ALBUM IN, RANDO M URINE W/CRE ATINI NE creatinine, random urine 65 mg/dL 20-320 normal Not Available [address], [address], 08/19/2022 17:33:37 08/19/19 23 08/19/2022 ALBUM IN RANDO M URINE W/CRE ATINI NE albumin, urine 84.2 mg/dL see note: normal Refer ence Range : Refer ence Range Not estab lishe d Not Available [address], [address], 08/19/2022 17:33:37 08/19/1908/19/2022 ALBUM IN RANDO M URINE W/CRE ATINI NE albumin/crea tinine ratio, random urine 1295 mcg/m g_cre at <30 high The ADA defin es abnor malit ies in album in excre tion as follo ws: Album inuri a Categ ory Resul t (mcg/ mg creat inine ) Nathalia l to Mildl y incre ased <30 Moder ately incre ased 30-29 9 Sever jenny incre ased > OR = 300 The ADA recom mends that at least two of three speci mens colle cted withi n a 3-6 month perio d be abnor mal befor e consi julito g a patie nt to be withi n a diagn ostic categ ory. Not Available [address], [address], 08/19/2022 17:33:37 08/19/1908/19/2022 TSH+F REE T4 TSH 0.68 mIU/L 0.40-4 .50 normal Not Available [address], [address], 08/19/2022 17:33:37 08/19/1908/19/2022 TSH+F REE T4 T4, free 1.1 NG/dL 0.8-1. 8 normal Not Available [address], [address], 08/19/2022 17:33:37 08/19/19 23 08/19/2022 HEMOG LOBIN A1C hemoglobin A1C 5.8 %_of_ total _HGB <5.7 high For someo ne witho ut known diabe sarah, a hemog lobin A1c value betwe en 5.7% and 6.4% is consi stent with predi abete s and shoul d be confi rmed with a follo w-up test. For someo ne with known diabe sarah, a value <7% indic ates that their diabe sarah is well contr olled . A1c targe ts shoul d be indiv idual ized based on durat ion of diabe sarah, age, comor bid condi tions , and other consi derat ions. This assay resul t is consi stent with an incre ased risk of diabe sarah. Curre ntly, no conse nsus exist s regar ding use of hemog lobin A1c for diagn osis of diabe sarah for child evangelista. Not Available [facility] [address] [address] [place], [address], 08/19/2022 17:33:38 10/14/19 23 10/14/2022 LIPID PANEL , STAND ANAHI cholesterol, total 88 mg/dL <200 normal Not Available [facility] [address] [address] [place], [address], 10/14/2022 17:02:43 10/14/19 23 10/14/2022 LIPID PANEL , STAND ANAHI HDL cholesterol 39 mg/dL > or = 40 low Not Available [facility] [address] [address] [place], [address], 10/14/2022 17:02:43 10/14/19 23 10/14/2022 LIPID PANEL , STAND ANAHI triglyceride s 50 mg/dL <150 normal Not Available [facility] [address] [address] [place], [address], 10/14/2022 17:02:43 10/14/19 23 10/14/2022 LIPID PANEL , STAND ANAHI LDL-choleste rol 37 mg/dL _(daniel c) normal Refer ence range : <100 Maritza able range <100 mg/dL for prima ry preve ntion ; <70 mg/dL for patie nts with CHD or diabe tic patie nts with > or = 2 CHD risk facto rs. LDL-C is now calcu lated using the Gege n-Hop kins calcu armando n, which is a valid ated novel metho d provi ding negra r accur acy than the Fried sarai equat ion in the estim ation of LDL-C . Gege manrique SS et al. WESLEY. 2013; 310(1 9): 2061- 2068 (http ://ed ucati on.ProFibrix maryDanal d/b/a BilltoMobile. com/f aq/FA Q164) Not Available [address] [address] [place], [address], 10/14/2022 17:02:43 10/14/19 23 10/14/2022 LIPID PANEL , STAND ANAHI chol/HDLC ratio 2.3 (calc ) <5.0 normal Not Available [address] [address] [place], [address], 10/14/2022 17:02:43 10/14/19 23 10/14/2022 LIPID PANEL , STAND ANAHI non HDL cholesterol 49 mg/dL _(daniel c) <130 normal For patie nts with diabe sarah plus 1 major ASCVD risk facto r, treat ing to a non-H DL-C goal of <100 mg/dL (LDL- C of <70 mg/dL ) is consi dered a thera peuti c optio n. Not Available [facility] [address] [address] [place], [address], 10/14/2022 17:02:43 10/14/19 23 10/14/2022 COMPR EHENS LORAINE METAB OLIC PANEL glucose 66 mg/dL 65-99 normal Fasti ng refer ence inter fanny Not Available [facility] [address] [address] [place], [address], 10/14/2022 17:02:44 10/14/19 23 10/14/2022 COMPR EHENS LORAINE METAB OLIC PANEL urea nitrogen (BUN) 66 mg/dL 7-25 high Not Available [address], [address], 10/14/2022 17:02:44 10/14/19 23 10/14/2022 COMPR EHENS LORAINE METAB OLIC PANEL creatinine 4.48 mg/dL 0.70-1 .28 high Not Available [address], [address], 10/14/2022 17:02:44 10/14/19 23 10/14/2022 COMPR EHENS LORAINE METAB OLIC PANEL eGFR 13 mL/mi n/1.7 3m2 > or = 60 low The eGFR is based on the CKD-E PI 2020 equat ion. To calcu late the new eGFR from a previ ous Creat inine or Cysta tin C resul t, go to https ://mickey [email or web address] [email or web address] milad/[email or web address] lou s/ kdoqi /gfr% 5Fcal culat or Not Available [address], [address], 10/14/2022 17:02:44 10/14/19 23 10/14/2022 COMPR EHENS LORAINE METAB OLIC PANEL BUN/creatini ne ratio 15 (calc ) 6-22 normal Not Available [address], [address], 10/14/2022 17:02:44 10/14/19 23 10/14/2022 COMPR EHENS LORAINE METAB OLIC PANEL sodium 140 mmol/ L 135-14 6 normal Not Available [address], [address], 10/14/2022 17:02:44 10/14/19 23 10/14/2022 COMPR EHENS LORAINE METAB OLIC PANEL potassium 5.1 mmol/ L 3.5-5. 3 normal Not Available [address], [address], 10/14/2022 17:02:44 10/14/19 23 10/14/2022 COMPR EHENS LORAINE METAB OLIC PANEL chloride 107 mmol/ L 98-110 normal Not Available [address], [address], 10/14/2022 17:02:44 10/14/19 23 10/14/2022 COMPR EHENS LORAINE METAB OLIC PANEL carbon dioxide 22 mmol/ L 20-32 normal Not Available [address], [address], 10/14/2022 17:02:44 10/14/19 23 10/14/2022 COMPR EHENS LORAINE METAB OLIC PANEL calcium 8.3 mg/dL 8.6-10 .3 low Not Available [address], [address], 10/14/2022 17:02:44 10/14/19 23 10/14/2022 COMPR EHENS LORAINE METAB OLIC PANEL protein, total 6.0 g/dL 6.1-8. 1 low Not Available [address], [address], 10/14/2022 17:02:44 10/14/19 23 10/14/2022 COMPR EHENS LORAINE METAB OLIC PANEL albumin 4.3 g/dL 3.6-5. 1 normal Not Available [address], [address], 10/14/2022 17:02:44 10/14/19 23 10/14/2022 COMPR EHENS LORAINE METAB OLIC PANEL globulin 1.7 g/dL_ (calc ) 1.9-3. 7 low Not Available [address], [address], 10/14/2022 17:02:44 10/14/19 23 10/14/2022 COMPR EHENS LORAINE METAB OLIC PANEL albumin/glob ulin ratio 2.5 (calc ) 1.0-2. 5 normal Not Available [address], [address], 10/14/2022 17:02:44 10/14/19 23 10/14/2022 COMPR EHENS LORAINE METAB OLIC PANEL bilirubin, total 0.5 mg/dL 0.2-1. 2 normal Not Available [address], [address], 10/14/2022 17:02:44 10/14/19 23 10/14/2022 COMPR EHENS LORAINE METAB OLIC PANEL alkaline phosphatase 47 U/L 35-144 normal Not Available [address], [address], 10/14/2022 17:02:44 10/14/19 23 10/14/2022 COMPR EHENS LORAINE METAB OLIC PANEL AST 11 U/L 10-35 normal Not Available [address], [address], 10/14/2022 17:02:44 10/14/19 23 10/14/2022 COMPR EHENS LORAINE METAB OLIC PANEL ALT 10 U/L 9-46 normal Not Available [address], [address], 10/14/2022 17:02:44 10/14/19 23 10/14/2022 ALBUM IN, RANDO M URINE W/CRE ATINI NE creatinine, random urine 93 mg/dL 20-320 normal Not Available [address], [address], 10/14/2022 17:02:45 10/14/19 23 10/14/2022 ALBUM IN, RANDO M URINE W/CRE ATINI NE albumin, urine 155.2 mg/dL see note: normal Refer ence Range : Refer ence Range Not estab lishe d Not Available [address], [address], 10/14/2022 17:02:45 10/14/19 23 10/14/2022 ALBUM IN, RANDO M URINE W/CRE ATINI NE albumin/crea tinine ratio, random urine 1669 mcg/m g_cre at <30 high The ADA defin es abnor malit ies in album in excre tion as follo ws: Album inuri a Categ ory Resul t (mcg/ mg creat inine ) Nathalia l to Mildl y incre ased <30 Moder ately incre ased 30-29 9 Sever jenny incre ased > OR = 300 The ADA recom mends that at least two of three speci mens colle cted withi n a 3-6 month perio d be abnor mal befor e consi julito g a patie nt to be withi n a diagn ostic categ ory. Not Available [address], [address], 10/14/2022 17:02:45 10/14/19 23 10/14/2022 TSH+F REE T4 TSH 0.65 mIU/L 0.40-4 .50 normal Not Available [address], [address], 10/14/2022 17:02:45 10/14/19 23 10/14/2022 TSH+F REE T4 T4, free 1.0 NG/dL 0.8-1. 8 normal Not Available [address], [address], 10/14/2022 17:02:45 10/14/19 23 10/14/2022 HEMOG LOBIN A1C hemoglobin A1C 5.1 %_of_ total _HGB <5.7 normal For the purpo se of scree sangeetha for the prese nce of diabe sarah: <5.7% Consi stent with the absen ce of diabe sarah 5.7-6 .4% Consi stent with incre ased risk for diabe sarah (pred iabet es) > or =6.5% Consi stent with diabe sarah This assay resul t is consi stent with a decre ased risk of diabe sarah. Curre ntly, no conse nsus exist s barbara gomez use of hemog lobin A1c for diagn osis of diabe sarah in child evangelista. Accor ding to Ameri can Diabe sarah Assoc iatio n (ADA) guide lines , hemog lobin A1c <7.0% repre sents optim al contr ol in non-p regna nt diabe tic patie nts. Diffe rent metri cs may apply to speci fic patie nt popul ation s. Stand ards of Medic al Care in Diabe sarah(A DA). Not Available [address] [address] [place], [address], 10/14/2022 17:02:46 Result Notes None recorded. Problems Name Problem SNOMED Code Status Onset Date Resolution Date Notes Provider Name and Address Organization Details Recorded Time Dyslipidemia 956357093 Active 2022 [place] [employer] [facility] 3 14:44:57 Uncontrolled type 2 diabetes mellitus 189451865 Active 2022 Chioma dodge [employer] [facility] 3 14:45:37 Diabetes mellitus 46295426 Active 2022 Alexa Hernandez MD [address] [address], [place], [address] , [facility] [employer] [facility] [employer] 3 11:46:05 Renal mass 052393381 Active Not Available [facility] 3 04:49:05 Malignant tumor of kidney 174131043 Active 2018 Not Available [facility] 3 04:49:05 Malignant melanoma 914554374 Active 2018 Not Available [facility] 3 04:49:05 Congestive heart failure 41736342 Active Not Available [facility] 3 04:49:05 Heart disease 33388859 Active 2018 Not Available [facility] 3 04:49:05 Exposure to Agent Gilmer Active 2018 Not Available [facility] 3 04:49:05 Gout 89041128 Active Not Available [facility] 3 04:49:05 Problem Notes None recorded. Medical Equipment None Reported. Medications Name Sig Start Date Stop Date Status Note LastModified by Organization Details LastModified Time carisoprodo l 350 mg tablet TAKE 1 TABLET BY MOUTH TWICE A DAY NEEDED active Not Available Not Available No t Available furosemide 40 mg tablet TAKE 1 TABLET BY MOUTH EVERY DAY active Not Available Not Available No t Available metformin 500 mg tablet Take 1 tablet twice a day by oral route. 07/28 completed Not Available Not Available Not Available azithromyci n 250 mg tablet TAKE 2 TABLETS BY MOUTH TODAY, THEN TAKE 1 TABLET DAILY FOR 4 DAYS active Not Available Not Available No t Available alprazolam 1 mg tablet TAKE 1 TABLET BY MOUTH TWICE A DAY NEEDED FOR ANXIETY active Not Available Not Available No t Available hydrocodone 5 mg-acetamin ophen 325 mg tablet TAKE 1 TO 2 TABLETS BY MOUTH EVERY 4 HOURS NEEDED FOR PAIN active Not Available Not Available No t Available diltiazem CD 240 mg capsule,ext ended release 24 hr Take 1 capsule every day by oral route. 07/28 completed Not Available Not Available Not Available metoprolol succinate ER 200 mg tablet,exte nded release 24 hr TAKE 1 TABLET BY MOUTH EVERY DAY active Not Available Not Available No t Available ondansetron HCl 4 mg tablet TAKE 1 TABLET BY MOUTH EVERY 6 HOURS. active Not Available Not Available No t Available simvastatin 10 mg tablet TAKE 1 TABLET BY MOUTH EVERY DAY IN THE EVENING active Not Available Not Available No t Available amlodipine 5 mg tablet TAKE 2 TABLETS BY MOUTH EVERY DAY active Not Available Not Available No t Available allopurinol 100 mg tablet TAKE 1 TABLET BY MOUTH TWICE A DAY. START ONCE ACUTE GOUT RESOLVES active Not Available Not Available No t Available hydrocodone 10 mg-acetamin ophen 325 mg tablet Take 1 tablet every 4 hours by oral route. 07/28 completed Not Available Not Available Not Available glimepiride 2 mg tablet 12/01 completed Not Available Not Available Not Available amoxicillin 875 mg tablet TAKE 1 TABLET BY MOUTH EVERY 12 HOURS active Not Available Not Available No t Available citalopram 20 mg tablet TAKE 1 TABLET BY MOUTH EVERY DAY AT NIGHT BEFORE SLEEP active Not Available Not Available No t Available oxycodone-a cetaminophe n 10 mg-325 mg tablet TAKE 1 TABLET BY MOUTH EVERY 6 HOURS NEEDED FOR PAIN active Not Available Not Available No t Available simvastatin 20 mg tablet TAKE ONE TABLET BY MOUTH AT BEDTIME active Not Available Not Available No t Available diphenhydra mine 25 mg capsule Take 2 capsules every 4 hours by oral route. 2018 active Not Available Not Available Not Avai lable glimepiride 4 mg tablet TAKE ONE TABLET BY MOUTH TWICE A DAY BEFORE A MEAL active Not Available Not Available No t Available prednisone 50 mg tablet TAKE 1 TABLET BY MOUTH EVERY DAY active Not Available Not Available No t Available warfarin 5 mg tablet TAKE 1 TABLET BY MOUTH EVERY DAY active Not Available Not Available No t Available indomethaci n 50 mg capsule Take 1 capsule 3 times a day by oral route. 07/28 completed Not Available Not Available Not Available doxazosin 4 mg tablet TAKE 1 TABLET BY MOUTH EVERY DAY active Not Available Not Available No t Available allopurinol 300 mg tablet 07/28 completed Not Available Not Available Not Available furosemide 20 mg tablet TAKE 1 TABLET BY MOUTH EVERY DAY active Not Available Not Available No t Available ergocalcife rol (vitamin D2) 1,250 mcg (50,000 unit) capsule TAKE ONE CAPSULE ORALLY ONCE PER WEEK active Not Available Not Available No t Available colchicine 0.6 mg tablet TAKE 2 TABS ON THE FIRST DAY OF FLARE, THEN TAKE 1 TAB DAILY FOR 4 DAYS active Not Available Not Available No t Available hydromorpho ne 4 mg tablet active Not Available Not Available Not Available lisinopril 40 mg tablet TAKE 1 TABLET BY MOUTH EVERY DAY active Not Available Not Available No t Available calcitriol 0.25 mcg capsule TAKE 1 CAPSULE BY MOUTH EVERY DAY active Not Available Not Available No t Available amoxicillin 500 mg-potassiu m clavulanate 125 mg tablet 07/28 completed Not Available Not Available Not Available Ventolin HFA 90 mcg/actuati on aerosol inhaler TAKE 2 PUFFS BY MOUTH EVERY 4 TO 6 HOURS NEEDED active Not Available Not Available No t Available chlorphenir amine 2 mg-DM 15 mg-acetamin ophen 500 mg tablet 07/28 completed Not Available Not Available Not Available Jantoven 1 mg tablet 07/28 completed Not Available Not Available Not Available Jantoven 2 mg tablet Take 1 tablet every day by oral route. active Not Available Not Available No t Available lactulose 10 gram/15 mL oral solution TAKE 30ML BY MOUTH EVERY 2 HOURS FOR 3 DOSES active Not Available Not Available No t Available alprazolam 0.5 mg disintegrat ing tablet Take 1 tablet 3 times a day by oral route. 07/28 completed Not Available Not Available Not Available Atrovent HFA 17 mcg/actuati on aerosol inhaler INHALE 2 PUFFS BY MOUTH 4 TIMES EVERY DAY active Not Available Not Available No t Available calcium carbonate 2018 active Not Available Not Available Not Avai lable aspirin 07/28 completed Not Available Not Available Not Available niacin 07/28 completed Not Available Not Available Not Available calcitriol 07/28 completed Not Available Not Available Not Available allopurinol 07/28 completed Not Available Not Available Not Available fenofibrate 54 mg tablet TAKE 1 TABLET BY MOUTH EVERY DAY active Not Available Not Available No t Available 1st Tier Unifine Pentips 31 gauge x 5/16 needle active Not Available Not Available Not Available metoprolol succ 50 mg-hydrochl orothiazide 12.5 mg tablet,ext. rel 24 hr Take 1 tablet every day by oral route. 07/28 completed Not Available Not Available Not Available Vascepa 1 gram capsule TAKE 2 CAPSULES BY MOUTH TWICE A DAY WITH FOOD SWALLOW WHOLE, DO NOT CHEW, OPEN, DISSOLVE, OR CRUSH active Not Available Not Available No t Available Tresiba FlexTouch U-200 insulin 200 unit/mL (3 mL) subcutaneou s pen Inject 20 units every day by subcutane ous route at bedtime for 30 days. active Not Available Not Available No t Available Rayaldee 30 mcg capsule,ext ended release TAKE 1 CAPSULE BY MOUTH EVERYDAY AT BEDTIME active Not Available Not Available No t Available Basaglar KwikPen U-100 Insulin 100 unit/mL (3 mL) subcutaneou s INJECT 8 UNITS UNDER THE SKIN EVERY MORNING active Not Available Not Available No t Available BD Brittny 2nd Gen Pen Needle 32 gauge x 5/32 USE DIRECTED ONCE A DAY active Not Available Not Available No t Available Tiadylt ER 120 mg capsule,ext ended release TAKE 1 CAPSULE BY MOUTH EVERY MORNING active Not Available Not Available No t Available Fluzone High-Dose Quad 2020-21 (PF) 240 mcg/0.7 mL IM syringe PHARMACY ADMINISTE RED active Not Available Not Available No t Available Vitals Date Recorded Body weight Body mass index (BMI) Body height Heart rate Body temperature Systolic blood pressure Diastolic blood pressure Provider Name and Address Organization Details Last Updated DateTime 3 17206.7 g 26.5 kg/m2 193.04 cm 91 /min 97.8 [degF] 170 mm[Hg] 91 mm[Hg] Brunilda Gastelum MA [place] [facility] 3 11:30:01 Social History Question Answer Notes LastModified by Organizat ion Details LastModified Time Tobacco Smoking Status Current Every Day Smoker Not Available [facility] 05/26/2022 04:13:23 What Is Your Level Of Alcohol Consumption? None [id number] Information not available 05/26/2022 What Is Your Level Of Caffeine Consumption? Moderate [id number] Information not available 05/26/2022 How Much Tobacco Do You Chew? None [id number] Information not available 05/26/2022 In The 14 Days Before Symptom Onset, Have You Had Close Contact With A Laboratory-confirm ed COVID-19 While That Case Was Ill? No [id number] Information not available 05/26/2022 In The 14 Days Before Symptom Onset, Have You Had Close Contact With A Person Who Is Under Investigation For COVID-19 While That Person Was Ill? No [id number] Information not available 05/26/2022 Which Illicit Or Recreational Drugs Have You Used? NONE [id number] Information not available 05/26/2022 Do You Or Have You Ever Used Smokeless Tobacco? Never Used Smokeless Tobacco [id number] Information not available 05/26/2022 How Much Tobacco Do You Smoke? 1 PPW [id number] Information not available 05/26/2022 Sex: Unknown Functional Status None recorded. Mental Status None recorded. Family History Relationship Description Onset Age of this Age Resolved Age Notes LastModified by Organization Details LastModified Time Father Diabetes mellitus [id number] Not available 05/26/2022 04:42:53 Medical History Condition Response BLINDNESS N RHEUMATIC FEVER N MRSA N INFECTIOUS DISEASE N LUNG DISEASE/DISORDER N HEART ARRHYTHMIA N INSOMNIA Y RADIATION / CHEMOTHERAPY N COPD Y HIGH CHOLESTEROL / HYPERLIPIDEMIA Y EYE PROBLEMS Y HYPERTHYROIDISM N NEUROLOGICAL PROBLEMS N BLOOD DISEASES N EDEMA N SURGERY N HYPOTHYROIDISM N DEPRESSION (INCLUDING POST ) N HAVE YOU BEEN HOSPITALIZED OR SEEN IN [facility] ER IN THE PAST YEAR ? N STROKE/TIA N THYROID DISEASE N BENIGN PROSTATIC HYPERPLASIA N OBESITY Y EXCESSIVE PERSPIRATION N ANEURYSM N OSTEOPOROSIS N ARTHRITIS N USE OF BLOOD THINNERS N SKIN PROBLEMS N DIABETES, TYPE Y PARATHYROID DISEASE N BLOOD CLOTS N HEPATITIS / LIVER DISEASE N GOUT N ALZHEIMER'S DISEASE N HERPES N RETINOPATHY N SEIZURES/EPILEPSY N HEADACHES/MIGRAINES N GI PROBLEMS N Low Testosterone N DIZZINESS N AIDS/HIV N KIDNEY DISEASE Y HEART DISEASE/HEART PROBLEMS N LIVER DISEASE N HYPERTENSION Y CANCER: SPECIFY Y BLOOD TRANSFUSION N ANEMIA/BLOOD DISORDER N ATRIAL FIBRILLATION N AUTOIMMUNE DISEASE N TUBERCULOSIS N GLAUCOMA N Past Encounters Encounter ID Performer Location Encounter Start Date Encounter Closed Date Diagnosis/Indication Diagnosis SNOMED-CT Code Diagnosis ICD10 Code Diagnosis Note [id number] [facility] [address] [place] [address] 07/04/2020 00:00:00 07/04/2020 13:31:08 [id number] Alexa Hernandez MD [facility] [address] [place] [address] 11/22/2022 11:12:54 11/22/2022 11:51:47 Diabetes mellitus 42008164 E11.22 A1C of 5.1% from late September- he was discontinu ed from taking insulin since early August with normal A1C- he does start HD therapy next week for ESRD- given samples of insulin just in case he is needing to restart. Provided a very conservati ve scale for patient to follow- he is aware to restart tresiba only if his fasting glucose is consistent ly over 120 mg/dL- to take no more than 10 units if he does restart to avoid hypoglycem ia. Recommende d he start fiasp/simba log/humalo g or rapid insulin at scale of 1U:40>160 mg/dL on premeal sugars if needed. Refer to endocrinol ogy due to my resignatio n so he will have monitoring of his progress. He voiced understand ing and aware he can reach out for help or concerns if needed before Jan 07/my final day. Spent up to 15 minutes preparing to see the patient (eg, review of tests), obtaining and/or reviewing separately obtained history, performing a medically appropriat e examinatio n and evaluation , counseling and educating the patient, ordering medication s, tests, along with documentin g clinical informatio n in the electronic health record, independen tly interpreti ng results and communicat ing results to the patient. Patient can be followed by PCP - she/he is aware of my resignatio n and last day of January 07. If needed his/her PCP can refer patient to another endocrinol ogist in the area. All questions /concerns answered and refills necessary at visit today. Health Concerns Section Related Observation LastModified by Organization Detai ls LastModified Time None Recorded Concern Status LastModified by Organization Details LastModified Time None Recorded Advance Directives Directive None Recorded Payers Encounter Date Sequence Insurance Name Policy Number Policy Pitt[place] Covered Member ID Pittman Member ID Guarantor Name 11/22/2022 1 [place] Lencho Baker [id number] Lencho Baker Notes Date Note Type Note Provider Name and Address Organization Details Recorded Time 11/22/2022 text/html 72 yo male comes in for follow up in management of well controlled type 2 DM (A1C of 5.1%) and dyslipidemia last seen in June 2020 we had patient continue on tresiba 22-24 units HS and glimepiride 4 mg BID. Patient was aware to reach out to us if he notices more evidence of unexplained hypoglycemia. He never made a follow up and is here after 2.5 years He will be starting dialysis next week. He has been off all insulin since three months ago. He doesn't really eat a lot of food. - he lives by himself and if he cooks something it will be a feast- he cannot eat the full amount. Sugars are runningAM fasting 90-134 mg/dL rangebedtime 120-150 mg/dL range labs from 10/17;a1c 5.1%TSH of 0.65 uIU/mlFT4 of 1.0 ng/dLmicroalbumin >1600 ug/mgCr 4.48 mg/dL with GFR 13 ml/minglucose 66 mg/dL88/50/39/37 Alexa Hernandez MD [address] [facility] [address], [place], [address], [place] [facility] 11/22/2022 14:02:19
--- OUTSIDE RECORDS SUMMARY | 2024-05-01 09:24 | XMS_ITS | Referral Summary ---
Author Organization [facility] Address [address] [place] [address] Care Team Providers Care Admissions Officer Name Role Phone Morgan Mercado MD Primary Care Provider [phone] Source Comments [facility] Affiliates and Associated Physician Practices is amultiple site organization consisting of ambulatory clinics and hospital sitesin [place], [place], [place] and [place]. This disclosure is being madepursuant to the Care Everywhere program and may not contain all information available regarding this patient. Last updated 17.[facility] Active Problems Problem Noted Date Diagnosed [...] 08/03/2013 9:08 AM CDT Plan of Treatment Not on file Care Teams Admissions Officer Relationship Specialty Start Date End Date Morgan Mercado MD [address] [facility] [address] [place] [address] PCP - General 03/30/12
--- OUTSIDE RECORDS SUMMARY | 2024-05-01 09:24 | XMS_ITS | Clinical Summary ---
Author Organization [facility] Address [address] [place] [address] Care Team Providers Care School Crossing Guard Name Role Phone Morgan Mercado MD Primary Care Provider [phone] Allergies No known active allergies Medications metoprolol succinate (TOPROL XL) 200 mg Extended Release 24 hour tablet Take 200 mg by mouth daily. Active warfarin (COUMADIN) 5 mg tabletIndicatio ns:M & Th 7 mg po daily, , , , Tue, Tuesday 5 mg po daily Take 5 mg by mouth daily . Active warfarin (COUMADIN) 2 mg tabletIndicatio ns:M & Th 7 mg po daily Take 2 mg by mouth daily . Active glimepiride (AMARYL) 2 mg tablet Take 2 mg by mouth daily with breakfast. Active lisinopril (PRINIVIL) 40 mg tablet Take 40 mg by mouth daily. Active doxazosin (CARDURA) 4 mg tablet Take 4 mg by mouth daily. Active ALPRAZolam (XANAX) 1 mg tablet Take 1 mg by mouth 2 times daily as needed for Anxiety. Active carisoprodol (SOMA) 350 mg tablet Take 350 mg by mouth 2 times daily . Active oxyCODONE-aceta minophen (PERCOCET) 10-325 mg Tablet Take 1 Tablet by mouth every 6 hours as needed for Pain, Severe. Active simvastatin (ZOCOR) 10 mg tablet Take 10 mg by mouth late in the day. Active diphenhydrAMINE (BENADRYL) 25 mg tablet Take 50 mg by mouth daily. Active albuterol HFA 90 mcg inhaler Take 2 Puffs by inhalation every 6 hours as needed for Shortness of Breath. Active calcium as carbonate (CALCIUM 600) 1,500 mg (600 mg elemental) Tablet Take 1 Tablet (600 mg) by mouth daily. 7 Active citalopram (CeleXA) 20 mg tablet TK 1 T PO ATN B PLASTERER ROUGH . AVOID DRIVING OR OPERATE MACHINES. 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 Tobacco use 11/02/2016 Resolved Problems Problem Noted Date Diagnosed Date Resolved Date Renal cell carcinoma of right kidney 11/02/2016 06/13/2017 Family History Medical History Relation Name Comments Cancer Brother Diabetes Father Heart Disease Father Other Mother Relation Name Status Comments Brother Father Mother Social History Tobacco Use Types Packs/Day Years Used Date Smoking Tobacco: Every Day Cigarettes 0.3 50 Smokeless Tobacco: Never Tobacco Cessation:Ready to Q uit: Yes; Counseling Given: Yes Comments:can quit, just a habit Alcohol Use Standard Drinks/Week Comments No 0 (1 standard drink = 0.6 oz pur e alcohol) Sex and Gender Information Value Date Recorded Sex Assigned at Not on file Legal Sex 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 Gender Identity Not on file Sexual Orientation Not on file Last Filed Vital Signs Vital Sign Reading Time Taken Comments Blood Pressure 138/100 03/08/2018 10:[address] LIGHT REPAIRER HELPER Pulse 82 03/08/2018 10:[address] LIGHT REPAIRER HELPER Temperature 36.5 ??C (97.7 ??F) 03/08/2018 10:[address] Respiratory Rate 18 03/08/2018 10:[address] LIGHT REPAIRER HELPER Oxygen Saturation 96% 03/08/2018 10:[address] LIGHT REPAIRER HELPER Inhaled Oxygen Concentration - - Weight 110.7 kg (244 lb) 03/08/2018 10:[address] LIGHT REPAIRER HELPER Height 182.9 cm (6') 03/08/2018 10:[address] LIGHT REPAIRER HELPER Body Mass Index 33.09 03/08/2018 10:[address] LIGHT REPAIRER HELPER Plan of Treatment Health Maintenance Due Date Last Done Comments DIABETES ANNUAL FOOT EXAM 1969 DIABETES MICROALBUMIN ANNUAL SCREEN 1969 LDL CHOLESTEROL ANNUAL 1969 DTAP/TDAP/TD VACCINES (1 - Tdap) 1970 FIT-DNA Q 3 years 02/06/1996 FIT/FOBT Q 1 year 02/06/1996 Flex Sig/CT Colonography Q 5 years 02/06/1996 ZOSTER VACCINE (1 of 2) 2001 RSV VACCINE (60+ or ) (1 - Risk 60-74 years 1-dose series) 2011 DIABETES ANNUAL RETINAL EXAM 11/09/2018 11/09/2017 DIABETES HBA1C Q 6 MONTHS 06/21/20192018, 11/15/2018, 08/23/2018, Additional history exists INFLUENZA VACCINE (#1) 2023 COLORECTAL SCREENING 04/17/2028 04/17/2018, 04/17/2018, 04/17/2018 Colorectal Cancer Screening 04/17/2028 PNEUMOCOCCAL VACCINE 65+ YEARS Completed 01/10/2017 , 07/14/2012 Insurance MEDICARE PART A AND B Care Teams School Crossing Guard Relationship Specialty Start Date End Date Morgan Mercado MD [address] [place] [phone] PCP - General Family Practice 11/02/16
--- OUTSIDE RECORDS SUMMARY | 2024-05-01 09:24 | XMS_ITS | Encounter Summary ---
Author Organization [facility] Address [address] [place] [address] Care Team Providers Care Nailhead Setter Name Role Phone Morgan Mercado MD Primary Care Provider + [phone] Morgan Mercado MD Primary Care Provider + [phone] Brisa Lowe MD Unavailable [phone] Aamir Thakkar MD Unavailable [phone] Rodolfo Berman MD Unavailable [phone] Encounter Details Date Type Department Care Team (Late st Contact Info) Description 05/06/2016 Orders Only [facility] ProviderValeri MD [address] [place] [address] Social History Tobacco Use Types Packs/Day Years Used Date Smoking Tobacco: Light Smoker Comments:Smoking History Pac ks/day: 0.25 Packs Alcohol Use Standard Drinks/Week Comments No 0 (1 standard drink = 0.6 oz pur e alcohol) Sex and Gender Information Value Date Recorded Sex Assigned at Not on file 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 us Historical Provider [facility] Final Result documented in this encounter Visit Diagnoses Not on filedocumented in this encounter Care Teams Nailhead Setter Relationship Specialty Start Date End Date Morgan Mercado MD PCP - General 06/25/16 Morgan Mercado MD PCP - General 01/26/11 06/24/16 Brisa Lowe MD Consulting Physician Cardiology 08/26/21 Aamir Thakkar MD [address] [place] [address] Consulting Physician Nephrology 05/15/22 Rodolfo Berman MD [address] [place] [address] [address] Surgeon Surgery 09/02/22 documented as of this encounter
--- OUTSIDE RECORDS SUMMARY | 2024-05-01 09:24 | XMS_ITS | Patient Health Summary ---
Author Organization [facility] Address [address] [place] [address] Care Team Providers Care Carbon Dioxide Operator Name Role Phone Morgan Mercado MD Primary Care Provider [phone] Note from [facility],non-owned Affiliates and Associated Physician Practices is amultiple site organization consisting of ambulatory clinics and hospital sitesin [place], [place], [place] and [place]. This disclosure is being madepursuant to the Care Everywhere program and may not contain all information available regarding this patient. Last updated 17.[facility] Active Problems Problem Noted Date Diagnosed Date Other specified disorders of kidney and ureter 0 07/14/2012 Immunizations * PNEUMOCOCCAL PPSV23(Given 07/14/2012) Social History Tobacco Use Types Packs/Day Years [...] Mass Index 35.99 08/03/2013 9:08 AM CDT Procedures * URINALYSIS - POINT OF CARE (AMB) [facility](Performed 08/03/2013) * URINALYSIS AUTO - POINT OF CARE (AMB) [facility](Performed 01/22/2013) * URINALYSIS - POINT OF CARE (AMB) [facility](Performed 11/03/2012) * EKG 12-LEAD(Performed 07/17/2012) * GLUCOSE ACCUCHECK(Performed 07/14/2012) * CREATININE FLUID(Performed 07/14/2012) * GLUCOSE ACCUCHECK(Performed 07/14/2012) * CBC W/O DIFFERENTIAL(Performed 07/14/2012) * GLUCOSE ACCUCHECK(Performed 07/13/2012) * GLUCOSE ACCUCHECK(Performed 07/13/2012) * GLUCOSE ACCUCHECK(Performed 07/13/2012) * CBC W/O DIFFERENTIAL(Performed 07/13/2012) * BASIC METABOLIC PANEL (CALCIUM TOTAL)(Performed 07/13/2012) * GLUCOSE ACCUCHECK(Performed 07/13/2012) * GLUCOSE ACCUCHECK(Performed 07/12/2012) * GLUCOSE ACCUCHECK(Performed 07/12/2012) * GLUCOSE ACCUCHECK(Performed 07/12/2012) * GLUCOSE ACCUCHECK(Performed 07/12/2012) * CBC W AUTO DIFFERENTIAL(Performed 07/12/2012) * BASIC METABOLIC PANEL (CALCIUM TOTAL)(Performed 07/12/2012) * PT-INR [facility](Performed 07/12/2012) * GLUCOSE ACCUCHECK(Performed 07/12/2012) * GLUCOSE ACCUCHECK(Performed 07/11/2012) * BASIC METABOLIC PANEL (CALCIUM TOTAL)(Performed 07/11/2012) * CBC W/O DIFFERENTIAL(Performed 07/11/2012) * GLUCOSE ACCUCHECK(Performed 07/11/2012) * GLUCOSE(Performed 07/11/2012) * CALCIUM IONIZED WHOLE BLOOD(Performed 07/11/2012) * SODIUM WHOLE BLOOD(Performed 07/11/2012) * LACTIC ACID WHOLE BLOOD(Performed 07/11/2012) * POTASSIUM WHOLE BLD(Performed 07/11/2012) * GLUCOSE WHOLE BLOOD(Performed 07/11/2012) * CHLORIDE WHOLE BLOOD(Performed 07/11/2012) * BLOOD GASES ARTERIAL(Performed 07/11/2012) * URINALYSIS W/MICROSCOPIC NO CULTURE(Performed 07/11/2012) * CULTURE URINE(Performed 07/11/2012) * GLUCOSE ACCUCHECK(Performed 07/11/2012) * PATHOLOGY/GENETICS HISTORICAL-ONBASE(Performed 07/11/2012) * TYPE + SCREEN PANEL(Performed 07/05/2012) * PT-INR [facility](Performed 07/05/2012) * BASIC METABOLIC PANEL (CALCIUM TOTAL)(Performed 07/05/2012) * CBC W/O DIFFERENTIAL(Performed 07/05/2012) * XR CHEST 2VW(Performed 07/05/2012) * URINALYSIS - POINT OF CARE (AMB) [facility](Performed 06/28/2012) Results * URINALYSIS - POINT OF CARE (AMB) [facility] (08/03/2013) Only the most recent of3 resultswithin the time period is included. Glucose UA neg [facility] Bilirubin UA POCT neg [facility] Ketones UA POCT neg [facility] Specific [place] UA 1.025 [facility] Blood Urine POCT neg [facility] pH UA 6.0 [facility] Protein UA neg [facility] Urobilinogen UA 3.5 [facility] Nitrite UA neg [facility] WBC UA [facility] Urine specimen (specimen) 08/03/2013 Lalit James Cheung MD LAB - POINT OF CARE ORDERABLES [facility] * URINALYSIS AUTO - POINT OF CARE (AMB) [facility] (01/22/2013) Glucose UA neg [facility] Bilirubin UA POCT neg [facility] Ketones UA POCT neg [facility] Specific [place] UA 1.025 [facility] Blood Urine POCT neg [facility] pH UA 6.0 [facility] Protein UA neg [facility] Urobilinogen UA 3.5 [facility] Nitrite UA neg [facility] WBC UA neg [facility] Urine specimen (specimen) 01/22/2013 Lalit Cheung MD LAB - POINT OF CARE ORDERABLES Performing Organization Address [facility]/ZIP Co de Phone Number [facility] * EKG 12-LEAD (07/17/2012 1:08 PM CDT) Raya Reilly MD ECG ORDERABLES Performing Organization Address [facility] Co de Phone Number [facility] RADIOLOG[facility] * (ABNORMAL) GLUCOSE ACCUCHECK (07/14/2012 11:29 AM CDT) Only the most recent of14 resultswithin the time period is included. Glucose, Fingerstick 121(H) 70 - 110 MG/DL [facility] Comment:PERFORMED BY: EZIO WEBER 07/14/2012 11:2 9 AM CDT 07/14/2012 11:57 AM CDT Lalitmechelle Cheung MD LAB - CHEMISTRY ORD ERABLES Performing Organization Address [facility] de Phone Number [address] [phone] * CREATININE FLUID (07/14/2012 8:30 AM CDT) Creatinine Fluid 2.4 mg/dL [facility] Fluid specimen (specimen) 07/14/2012 8:30 AM CDT 07/14/2012 9:00 AM CDT Narrative [facility] - 07/14/2012 9:23 AM CDT NIKKO drain fluid Lalit Cheung MD LAB - BODY FLUID OR DERABLES Performing Organization Address [facility] Co de Phone Number [address] [phone] * (ABNORMAL) CBC W/O DIFFERENTIAL (07/14/2012 5:15 AM CDT) Only the most recent of4 resultswithin the time period is included. WBC 4.0 3.5 - 10.5 10^3/uL [facility] RBC 3.11(L) 4.30 - 5.70 10^6/uL [facility] Hemoglobin 9.9(L) 13.5 - 17.5 g/dL [facility] Hematocrit 29.2(L) 39.0 - 50.0 % [facility] MCV 93.9 81.0 - 97.0 FL [facility] MCH 31.8 28.0 - 34.0 PG [facility] MCHC 33.9 32.0 - 36.0 G/DL [facility] Platelet 104(L) 150 - 400 10^3/uL [facility] RDW 14.0 11.2 - 14.8 % [facility] RDW-SD 48.1 36 - 50 [place] [facility] MPV 9.7 9.3 - 12.8 FL [facility] Venous blood specimen (specimen) 07/14/2012 5:15 AM CDT 07/14/2012 5:55 AM CDT Lalit James Cheung MD LAB - HEMATOLOGY OR DERABLES Performing Organization Address City/State/[facility] Co de Phone Number [address] [phone] * (ABNORMAL) BASIC METABOLIC PANEL (CALCIUM TOTAL) (07/13/2012 7:40 AM CDT) Only the most recent of4 resultswithin the time period is included. BUN 32(H) 7 - 26 mg/dL [facility] Creatinine 2.1(H) 0.6 - 1.2 mg/dL [facility] eGFR by MDRD 32 ML/MIN [facility] Comment: Chronic kidney disease: ??<60 ml/min Kidney failure: ?<15 ml/min Based on BSA of 1.73m2. Sodium 138 136 - 145 mmol/L [facility] Potassium 4.2 3.5 - 4.5 mmol/L [facility] Chloride 107 98 - 107 mmol/L [facility] CO2 20(L) 22 - 29 mmol/L [facility] Glucose 103 70 - 115 mg/dL [facility] Calcium 7.5(L) 8.4 - 10.2 mg/dL [facility] Anion Gap 15 8 - 18 [facility] BUN/Creatinine Ratio 15 7 - 23 [facility] Osmolality Calculation 278 270 - 300 mOsm/kg [facility] Venous blood specimen (specimen) 07/13/2012 7:40 AM CDT 07/13/2012 8:07 AM CDT Lalit Cheung MD LAB - CHEMISTRY ORD ERABLES Performing Organization Address [facility] Co de Phone Number [address] [phone] * (ABNORMAL) PT-INR U (07/12/2012 5:25 AM CDT) Only the most recent of2 resultswithin the time period is included. PT 15.7(H) 12.1 - 14.8 SECONDS [facility] Comment: Heparin concentration in excess of 1 unit/ml may cause significant prolongation of prothrombin time. INR 1.2 [facility] Comment: SUGGESTED THERAPEUTIC RANGE FOR LOW-INTENSITY COUMADIN THERAPY FOR VENOUS THROMBOEMBOLISM IS INR 2.0-3.0. ??FOR HIGH RISK PATIENTS (MITRAL VALVE PROSTHESIS, ATRIAL FIBRILLATION, HISTORY OF TIA/STROKE), SUGGESTED THERAPEUTIC RANGE IS INR 2.5-3.5. Plasma specimen (specimen) 07/12/2012 5:25 AM CDT 07/12/2012 6:02 AM CDT Narrative [facility] - 07/12/2012 6:20 AM CDT Is patient on Heparin, Argatroban or Dabigatran?->N Lalit Cheung MD LAB - COAGULATION O RDERABLES Performing Organization Address [facility]/[place] [address], [facility] [phone] * (ABNORMAL) CBC W AUTO DIFFERENTIAL (07/12/2012 5:25 AM CDT) WBC 9.2 3.5 - 10.5 10^3/uL [facility] RBC 3.65(L) 4.30 - 5.70 10^6/uL [facility] Hemoglobin 11.4(L) 13.5 - 17.5 g/dL [facility] Hematocrit 34.9(L) 39.0 - 50.0 % [facility] MCV 95.6 81.0 - 97.0 FL [facility] MCH 31.2 28.0 - 34.0 PG [facility] MCHC 32.7 32.0 - 36.0 G/DL [facility] Platelet 120(L) 150 - 400 10^3/uL [facility] RDW 13.9 11.2 - 14.8 % [facility] RDW-SD 48.2 36 - 50 FL [facility] MPV 10.1 9.3 - 12.8 FL [facility] Differential Type MANUAL [facility] Neutrophils Absolute Manual 7.73(H) 1.7 - 7.0 10^3/uL [facility] Comment:(BANDS AND SEGS) X W BC = NEUT # (ANC) Lymphocytes Absolute Manual 1.01 0.9 - 2.9 10^3/uL [facility] Monocyte Absolute Manual 0.46 0.3 - 0.9 10^3/uL [facility] Band % Manual 1 0 - 10 % [facility] Neutrophils % manual 83(H) 30 - 60 % [facility] Lymphocytes % manual 11(L) 20 - 45 % [facility] Monocytes % Manual 5 2 - 10 % [facility] Platelet Estimate DEC,RBC MORPH NORMAL [facility] Venous blood specimen (specimen) 07/12/2012 5:25 AM CDT 07/12/2012 6:02 AM CDT Lalit James Cheung MD LAB - HEMATOLOGY OR DERABLES [address] [phone] * (ABNORMAL) GLUCOSE (07/11/2012 11:30 AM CDT) Glucose 139(H) 70 - 115 mg/dL [facility] Plasma specimen (specimen) BLOOD SPECIMEN / Unknown 07/11/2012 11:30 AM CDT 07/11/2012 11:38 AM CDT Lalit James Cheung MD LAB - CHEMISTRY ORD ERABLES [address] [phone] * LACTIC ACID WHOLE BLOOD (07/11/2012 9:30 AM CDT) Lactic Acid-Stat 1.4 0.5 - 3.4 mmol/L [facility] Blood specimen (specimen) 07/11/2012 9:30 AM CDT 07/11/2012 9:36 AM CDT Lalit James Cheung MD LAB - CHEMISTRY ORD ERABLES Performing Organization Address City/[facility]/ZIP Co de Phone Number [address] [phone] * CHLORIDE WHOLE BLOOD (07/11/2012 9:30 AM CDT) Whole Blood CL 109 101 - 111 MMOL/L [facility] 07/11/2012 9:30 AM CDT 07/11/2012 9:36 AM CDT Lalit James Cheung MD LAB - CHEMISTRY ORD ERABLES Performing Organization Address City/[facility] Co de Phone Number [address] [phone] * (ABNORMAL) CALCIUM IONIZED WHOLE BLOOD (07/11/2012 9:30 AM CDT) Ionized Calcium Whole Blood 1.14 MMOL/L [facility] Whole Blood PH 7.30(L) 7.35 - 7.45 [facility] Adjusted Ionized Calcium 1.09(L) 1.19 - 1.34 mmol/L [facility] 07/11/2012 9:30 AM CDT 07/11/2012 9:36 AM CDT Lalit James Cheung MD LAB - CHEMISTRY ORD ERABLES [address] [phone] * POTASSIUM WHOLE BLD (07/11/2012 9:30 AM CDT) Potassium 4.2 3.5 - 5.5 mmol/L [facility] 07/11/2012 9:30 AM CDT 07/11/2012 9:36 AM CDT Lalit James Cheung MD LAB - CHEMISTRY ORD ERABLES Performing Organization Address City/[facility] Co de Phone Number [address] [phone] * SODIUM WHOLE BLOOD (07/11/2012 9:30 AM CDT) Sodium Whole Blood 136 135 - 145 mmol/L [facility] 07/11/2012 9:30 AM CDT 07/11/2012 9:36 AM CDT Lalit James Cheung MD LAB - CHEMISTRY ORD ERABLES Performing Organization Address [facility] Co de Phone Number [address] [phone] * (ABNORMAL) BLOOD GASES ART (07/11/2012 9:30 AM CDT) pH Arterial 7.30(L) 7.35 - 7.45 [facility] pCO2 Arterial 47(H) 35 - 45 mmHg [facility] pO2 Arterial 116(H) 71 - 95 mmHg [facility] HCO3 Arterial 22.4 22 - 26 mEq/L [facility] TCO2 Arterial 23.9(L) 25 - 29 mEq/L [facility] Base Excess Arterial -3.6(L) -2 - 2 [facility] Hemoglobin Arterial 11.6(L) 13.5 - 17.5 g/dL [facility] Oxyhemoglobin Arterial 93.2(L) 95.0 - 100.0 % [facility] Carboxyhemoglobin 2.6 0 - 3 % [facility] Methemoglobin 1.7 0 - 2.0 % [facility] FI O2 Arterial 69 [facility] Arterial blood specimen (specimen) 07/11/2012 9:30 AM CDT 07/11/2012 9:36 AM CDT Narrative [facility] - 07/11/2012 9:42 AM CDT FIO2->69 FiO2->OTHER 69 Lalit Cheung MD LAB - BLOOD GASES O RDERABLES Performing Organization Address City/[facility]/ZIP Co de Phone Number [address] [phone] * (ABNORMAL) GLUCOSE WHOLE BLOOD (07/11/2012 9:30 AM CDT) Glucose 124(H) 70 - 110 mg/dL [facility] 07/11/2012 9:30 AM CDT 07/11/2012 9:36 AM CDT Lalti Cheung MD LAB - CHEMISTRY ORD ERABLES Performing Organization Address [facility] Co de Phone Number [address] [phone] * (ABNORMAL) URINALYSIS W/MICROSCOPIC NO CULTURE (07/11/2012 9:00 AM CDT) Color UA YELLOW STRW,YELLOW [facility] Clarity UA CLEAR CLEAR [facility] Specific [place] Urine 1.017 1.001 - 1.030 [facility] pH UA 5.5 5.0 - 8.0 [facility] Protein UA 50(A) <20 mg/dL [facility] Glucose UA NEGATIVE NEGATIVE mg/dL [facility] Ketones NEGATIVE NEGATIVE mg/dL [facility] Bilirubin UA NEGATIVE NEGATIVE mg/dL [facility] Blood UA NEGATIVE NEGATIVE [facility] Nitrite UA NEGATIVE NEGATIVE [facility] Leukocyte Esterase NEGATIVE NEGATIVE [facility] Urobilinogen UA < 2.0 <2.0 mg/dL [facility] RBC Urine < 1 0 - 8 /HPF [facility] WBC Urine 1 0 - 2 /HPF [facility] Hyaline Casts UA 1 0 - 2 /LPF [facility] Urine specimen (specimen) URINE SPECIMEN COLLECTION, CATHETERIZED / Unknown 07/11/2012 9:00 AM CDT 07/11/2012 12:50 PM CDT Lalit James Cheung MD LAB - URINALYSIS OR DERABLES Performing Organization Address City/[facility]/ZIP Co de Phone Number [address] [phone] * CULTURE URINE (07/11/2012 9:00 AM CDT) Culture Urine NO GROWTH OF >100 CFU/ML AFTER 48 HOURS. [facility] Urine specimen (specimen) URINE SPECIMEN COLLECTION, CATHETERIZED / Unknown 07/11/2012 9:00 AM CDT 07/11/2012 12:50 PM CDT Narrative [facility] - 07/13/2012 5:43 PM CDT Specimen Type->Urine Lalit James Cheung MD LAB - MICROBIOLOGY ORDERABLES Performing Organization Address [facility] Co de Phone Number [address] [phone] * PATHOLOGY/GENETICS HISTORICAL-ONBASE (07/11/2012) 07/11/[address] [facility] - 08/06/2013 10:24 AM CDT Historical Provider LAB - CHEMISTRY O RDERABLES Performing Organization Address [facility]/ZIP Co de Phone Number [facility] [address] * TYPE + SCREEN PANEL (07/05/2012 11:12 AM CDT) Interpretation ABO/Rh Patient O POS [facility] Antibody Screen NEGATIVE [facility] Venous blood specimen (specimen) 07/05/2012 11:12 AM CDT 07/05/2012 12:01 PM CDT Lalit Cheung MD LAB - BLOOD BANK OR DERABLES [address] [phone] * XR CHEST 2VW (07/05/2012 11:09 AM CDT) Anatomical Region Laterality Modality Chest Other Impressions 07/05/2012 5:28 PM CDT Impression: Small right pleural effusion. Report dictated by Cadence Geiger M.D. (residential case manager). Dr. JIMENA Esparza M.D. have personally reviewed and interpreted this examination/study. This report was electronically signed by JIMENA DUBOIS M.D. ??on 07/05/2012 5:28 PM . Narrative 07/05/2012 5:28 PM CDT Exam: ??XR CHEST PA AND LATERAL Date: 07/05/2012 History: ??renal mass, preoperative study, smoker and hx of CHF Comparison: No prior study is available for comparison. Findings: No focal consolidation is seen. A small right pleural effusion is present. No pneumothorax is identified. The heart size and mediastinal contours are normal. The visible bony thorax is intact. Procedure Note Jimena Dubois MD - 06/26/2017 Exam: XR CHEST PA AND LATERAL Date: 07/05/2012 History: renal mass, preoperative study, smoker and hx of CHF Comparison: No prior study is available for comparison. Findings: No focal consolidation is seen. A small right pleural effusion is present.No pneumothorax is identified. The heart size and mediastinal contours arenormal. The visible bony thorax is intact. IMPRESSION Impression: Small right pleural effusion. Report dictated by Cadence Geiger M.D. (residential case manager). Dr. JIMENA Esparza M.D. have personally reviewed and interpreted thisexamination/study. This report was electronically signed by JIMENA DUBOIS M.D. on07/05/2012 5:28 PM . Lalit Cheung MD DIAGNOSTIC IMAGING ORDERABLES Care Teams Carbon Dioxide Operator Relationship Specialty Start Date End Date Morgan Mercado MD [address] [facility] [address] [place] [address] PCP - General 03/30/12
--- OUTSIDE RECORDS SUMMARY | 2024-05-01 09:24 | XMS_ITS ---
Author Name Aamir Thakkar Address [address] [place] [address] Phone [phone] [facility] e, NA DOCUMENT DISCLAIMER Multiple document versions may exist, please be sure you review the latest version. The information in the [facility] Progress Note Document represents a providers documented clinical note containing certain health and medical information. It may not contain the complete medical history for the patient and should be independently verified. The represented time in the document is Eastern Time PROVIDER ROUNDING NOTE COMPREHENSIVE Patient:?Lencho?Olivia,?1950,?74y,?M Dialysis?Location:?[facility]?[place] Attending?Battery Hand:?Aamir?Bijan Service?Date:?04/28/2024 Service?Provider:?Aamir?Bijan,? I?met?face?to?face?with?the?patient?today. OVERVIEW The?patient?presented?with?ESRD?on?dialysis Primary?cause?of?renal?failure:?Type?2?diabetes?mellitus&#16 0;with?diabetic?chronic?kidney?disease Medications?and?labs?reviewed. HOME?MEDICATIONS Home?Medications:? ??Calcium?Acetate?667?mg,?By?Mouth,?Take?11?Capsul e?Every?24?hours?With?Meals?3?caps?TID?with?meals, ?1?cap?BID?with?snacks?-?total?quantity?of?11 daily. ??Calcium?Acetate?667?mg,?By?Mouth,?Take?11?Capsul e?Every?24?hours?With?Meals?(Take?3?capsule?three? times?a?day?with?meals?and?twice?a?day?with?snacks) ??Calcium?Acetate?667?mg,?By?Mouth,?Take?3?Capsule ?Three?times?a?day?With?Meals?Take?1?capsule?PO with?snacks ??Aspirin?Childrens?(aspirin)?81?mg,?Take?1?tablet once?a?day ??ergocalciferol?(vitamin?d2)?50,000,?Take?one?capsule?weekly ??oxycodone?10?mg,?by?mouth,?Take?1?tablet?every&# 160;twelve?hours?as?needed?for?pain ??allopurinol?100?mg ??alprazolam?1?mg ??carisoprodol?350?mg,?TAKE?1?TABLET?BY?MOUTH?TWICE?A?DAY??NEEDED ??citalopram?20?mg ??colchicine?0.6?mg ??doxazosin?4?mg ??fenofibrate?54?mg ??metoprolol?succinate?200?mg ??simvastatin?10?mg Allergies:? ??CODEINE DIALYSIS?PRESCRIPTION ??IHD?3x?Week?Start?date:?03/22/24 ??Dialyzer:?180NRe?Optiflux ??BFR:?500 ??DFR:?Manual?800 ??Potassium:?3.0 ??Sodium:?138 ??EDW:?96.5 ??Duration:?4:00 ??Calcium:?2.5 ??Bicarb:?35 ??Rx?updated?on:?03/19/2024 TREATMENT?ASSESSMENT Blood?pressure?controlled.?No?changes?indicated.? BP?Stand?Pre ??04/26/2024:?177/69 BP?Sit?Pre ??04/28/2024:?188/89 ??04/26/2024:?168/78 ??04/24/2024:?196/85 BP?Stand?Post ??04/28/2024:?144/72 ??04/26/2024:?137/72 ??04/24/2024:?187/85 BP?Sit?Post ??04/28/2024:?137/68 ??04/26/2024:?133/94 ??04/24/2024:?184/67 Tx?Duration ??04/28/2024:?4:00 ??04/26/2024:?3:49 ??04/24/2024:?4:11 Missed?Treatments 2?-?last?30?days 2?-?last?60?days 04/21?-?recent FLUID?ASSESSMENT Fluid?status?acceptable.?Interdialytic?weight?gain?acceptable.?No ?changes?indicated.? EDW?(kg) ??04/28/2024:?96.5 ??04/26/2024:?96.5 ??04/24/2024:?96.5 Weight?Pre?(kg) ??04/28/2024:?100.7 ??04/26/2024:?98.9 ??04/24/2024:?100.1 Weight?Post?(kg) ??04/28/2024:?97.3 ??04/26/2024:?96.5 ??04/24/2024:?96.7 PWV?(kg) ??04/28/2024:?0.8 ??04/26/2024:?0.0 ??04/24/2024:?0.2 UF?Rate?(mL/kg/hr) ??04/28/2024:?8.7 ??04/26/2024:?6.5 ??04/24/2024:?8.4 ADEQUACY?ASSESSMENT Adequacy?target?met.?Prescription?compliance?acceptable.?No?changes?indicated.? spKt/V,?URR ??04/10/2024:?1.46,?72.0 ??03/06/2024:?1.59,?75.0 ??02/07/2024:?1.7,?76.0 ACCESS?ASSESSMENT ??Access?Type:?AVGraft ??Access?SubType:?Unknown ??Access?Status:?Active?(In?Use)?-?11/19/2022 ??Access?Location:?Left?Upper?Arm ??Created:?09/02/2022 Flow ??04/26/2024:?959 ??04/19/2024:?601 ??03/15/2024:?561 Vascular?access?reviewed.?Current?access?is?permanent?and?functioning?well. ANEMIA?ASSESSMENT HGB?at?goal.?Iron?parameters?acceptable.?No?changes?indicated.? HGB,?TSAT ??04/24/2024:?10.7,?- ??04/17/2024:?12.6,?- ??04/10/2024:?11.7,?21.0 ?? Ferritin ??02/07/2024:?30.0 ??12/06/2023:?28.0 ??11/08/2023:?43.0 Mircera,?IVP?(mcg) ??04/07/2024:?30 Iron?Sucrose?(Venofer)?(mg) ??04/07/2024:?50 BMM?ASSESSMENT PTH?controlled.?Calcium?controlled.?Phosphorus?controlled.?No?fredi nges?indicated.? PTH,?Intact ??03/13/2024:?432.0 ??02/07/2024:?589.0 ??12/06/2023:?400.0 ?? Calcium,?Phosphorus ??04/10/2024:?8.2,?5.3 ??03/06/2024:?7.7,?7.1 ??02/07/2024:?7.8,?6.2 Vitamin?D?(Calcitriol)?Oral?(mcg) ??04/28/2024:?0.75 ??04/26/2024:?0.75 ??04/24/2024:?0.75 NUTRITION?ASSESSMENT Potassium?controlled.?Albumin?controlled.?No?changes?indicated.? Potassium,?Albumin ??04/10/2024:?4.4,?4.3 ??03/06/2024:?4.5,?4.1 ??02/07/2024:?4.6,?4.2 ?? eNPCR ??04/10/2024:?0.73 ??03/06/2024:?0.87 ??02/07/2024:?0.9 PHYSICAL?EXAM Exam?Performed.?Vital?Signs?Reviewed.?Lungs?-?Clear.?CV&#160 ;-?Blood?pressure?noted.?CV?-?RRR.?EXT?-?No?edema.?EXT?-?No?ulcers. DIAGNOSIS Chief?Complaint:?N18.6?End?stage?renal?disease Patient?data?updated?04/30/2024?at?6:46?PM Signed?By:?Bijan,?Aamir,???on?04/30/2024?6:46:49?PM END OF DOCUMENT
--- OUTSIDE RECORDS SUMMARY | 2024-05-01 09:24 | XMS_ITS ---
Author Name [facility], Clinic Address [address] [place] [address] Phone [phone] Organization [facility] e, NA DOCUMENT DISCLAIMER Multiple document versions may exist, please be sure you review the latest version. The information in the [facility] Continuity of Care Document represents a summary of certain health and medical information. It may not contain the complete medical history for the patient and should be independently verified. The represented time in the document is Eastern Time. 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 Active November 29, 2022 Encounter for screening for respiratory tuberculosis Z11.1 Active November 29, 2022 Anaphylactic shock, unspecified, initial encounter T78 .2XXA Active November 29, 2022 Coagulation defect, unspecified D68.9 Active November 29, 2022 Allergy, unspecified, initial encounter T78.40XA A ctive November 29, 2022 Unspecified atrial fibrillation I48.91 Active November 19, 2022 Other iron deficiency anemias D50.8 Active November 19, 2022 Encounter for immunization Z23 Active A ugust 2022 End stage renal disease N18.6 Active Augu 2022 Dependence on renal dialysis Z99.2 Active November 18, 2022 Nicotine dependence, cigarettes, uncomplicated F17.210 Active November 18, 2022 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 Activ e November 18, 2022 Hyperlipidemia, unspecified E78.5 Active November 18, 2022 Gout due to renal impairment, unspecified site M10.30 Active November 18, 2022 Chronic obstructive pulmonary disease, unspecified J44 .9 Active November 18, 2022 Heart failure, unspecified I50.9 Active A ugust 2022 Cardiomyopathy, unspecified I42.9 Active November 18, 2022 half-way (current) use of oral hypoglycemic drugs Z79 .84 Active November 18, 2022 intermission coordinator (current) use of aspirin Z79.82 Active November 18, 2022 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, or end stage renal disease I13.2 Active 2022 Type 2 diabetes mellitus wit h diabetic chronic kidney disease E11.22 Active November 18, 2022 Secondary hyperparathyroidism of renal origin N25.81 Active November 18, 2022 Anemia in chronic kidney disease D63.1 Active November 18, 2022 Chronic kidney disease, stage 5 N18.5 Active November 18, 2022 ALLERGIES AND ADVERSE REACTIONS Substance Reaction Severity Status CODEINE Nausea/Vomiting Active SOCIAL HISTORY Tobacco Use Status Tobacco Type Former smoker Cigarettes Caregiver Characteristics No Information Available Characteristics of Home environment No Information Available Gender and Sex Information Gender Identity Sexual Orientation Decline to Answer Decline to answer MEDICATIONS Prescribed Medications for Dialysis Treatments Medication Instructions Dosage Route Start Date End Date Stat Diphenhydramine PRN Allergic Reaction 50 mg Oral December 01, 2023 November 29, 2024 Active Diphenhydramine During Dialysis, PRN itching 50 mg Intravenous - push February 09, 2024 February 07, 2025 Active Heparin Sodium (Porcine) 1,000 Units/mL Systemic Bolus, Every Treatment, Total treatment minutes 240 1000 units Intravenous - push December 01, 2023 November 29, 2024 Active Heparin Sodium (Porcine) 1,000 Units/mL Systemic Infusion (Pump), Every Treatment, Total treatment minutes 240, Turn heparin pump off 60 minutes prior to end of treatment 1000 units/ho ur Intravenous - push April 21, 2024 April 20, 2025 Active Ondansetron HCl (Zofran) During Dialysis, PRN nausea 4 mg Intravenous - push January 24, 2024 January 22, 2025 Active Vitamin D (Calcitriol) Oral 3X Week 0.75 mcg Oral February 14, 2024 February 12, 2025 Active Heparin Sodium (Porcine) 1,000 Units/mL Systemic Infusion (Pump), Every Treatment, Total treatment minutes 240, Turn heparin pump off 60 minutes prior to end of treatment 500 units/ho ur Intravenous - push December 01, 2023 November 29, 2024 Discontinued Iron Sucrose (Venofer) 1X Week 50 mg Intravenous - push April 07, 2024 April 06, 2025 Discontinued Mircera Every 2 weeks 30 mcg Intravenous - push April 07, 2024 April 06, 2025 Discontinued Home Medications Medication Instructions Dosage Route Start Date End Date Stat allopurinol 100 mg ORAL December 01, 2022 Active alprazolam 1 mg ORAL December 01, 2022 Active Aspirin Childrens 81 mg Take once a day 1 tablet ORAL March 22, 2024 Active Calcium Acetate 667 mg Take By Mouth Every 24 hours With Meals 11 Capsule By Mouth April 20, 2024 April 04, 2025 Active Calcium Acetate 667 mg Take By Mouth Every 24 hours With Meals 11 Capsule By Mouth April 26, 2024 April 04, 2025 Active Calcium Acetate 667 mg Take By Mouth Three times a day With Meals 3 Capsule By Mouth April 11, 2024 April 04, 2025 Active carisoprodol 350 mg ORAL December 01, 2022 Active citalopram 20 mg ORAL Septembe 2022 Active colchicine 0.6 mg ORAL Septemb er 2022 Active doxazosin 4 mg ORAL December 01, 2022 Active ergocalciferol 50,000 Unknown March 02, 2024 Active fenofibrate 54 mg ORAL Septemb er 2022 Active metoprolol succinate 200 mg ORAL December 01, 2022 Active oxycodone 10 mg Take by mouth every twelve hours as needed for pain 1 tablet ORAL November 03, 2023 Active simvastatin 10 mg ORAL Septemb er 2022 Active calcium acetate(phosphat bind) 667 mg Take by mouth twice a day with meals 3 capsule ORAL March 27, 2024 April 18, 2024 Discontinued VITAL SIGNS Post-Treatment Vital Signs Vital Sign Value Date / Time Blood Pressure-sitting 137/68 mmHg April 28, 2024 09:42 AM Blood Pressure-standing 144/72 mmHg April 28, 2024 09:42 AM Heart Rate 55 beats per minute April 28, 2024 09:42 AM Respiratory Rate 18 breaths per minute April 28, 2024 09:42 AM Temperature 97.7 deg. F April 28 09:42 AM Weight Vital Sign Value Date / Time Estimated Dry Weight 96.5 kg February 11:59 PM Pre-Dialysis 100.70 kg April 28 09:42 AM Post-Dialysis 97.30 kg April 28 09:42 AM Other Other Value Date / Time Height 183 cm November 18, 2022 12:00 AM HEALTH CONCERNS Tuberculosis Testing TST Date Administered TST Date Read TST Result 11/30/2022 12/02/2022 Negative (<5) mm LAB RESULTS Hematology Result Type Result Value Relevant Referen ce Range Interpretation Date UIBC/TIBC 201 mcg/dL 155 - 355 mcg/dL - October 262023 TIBC (Calc) 287 mcg/dL 185 - 515 mcg/dL - November 08, 2023 Transferrin Sat. (Calc) 30 % 20 - 55 % - November 08, 2023 Ferritin 43 ng/mL 22 - 322 ng/mL - November 08, 2023 Neutrophils 77.9 % 40.0 - 75.0 % High November 08, 2023 WBC (No Diff) 8.86 1000/mcL 4.80 - 10.80 1000/mcL - November 08, 2023 Platelets 155 1000/mcL 130 - 400 1000/mcL - Octu st 2023 Reticulocyte 1.78 % 0.80 - 2.10 % - October Platelets 122 1000/mcL 130 - 400 1000/mcL Low Sept ember 2023 Reticulocyte 2.02 % 0.80 - 2.10 % - December 06, 2023 Folate, Serum 9.2 ng/mL No Reference Ran ge Provided - December 06, 2023 TIBC (Calc) 296 mcg/dL 185 - 515 mcg/dL - Novemb er 2023 UIBC/TIBC 209 mcg/dL 155 - 355 mcg/dL - e r 2023 Transferrin Sat. (Calc) 29 % 20 - 55 % - December 06, 2023 Ferritin 28 ng/mL 22 - 322 ng/mL - December 06, 2023 WBC (No Diff) 8.55 1000/mcL 4.80 - 10.80 1000/mcL - December 06, 2023 Neutrophils 75.3 % 40.0 - 75.0 % High December 06, 2023 UIBC/TIBC 244 mcg/dL 155 - 355 mcg/dL - January 10, 2024 TIBC (Calc) 330 mcg/dL 185 - 515 mcg/dL - January 10, 2024 Transferrin Sat. (Calc) 26 % 20 - 55 % - January 10, 2024 Platelets 157 1000/mcL 130 - 400 1000/mcL - Octo 2023 Reticulocyte 2.64 % 0.80 - 2.10 % High December 262023 WBC (No Diff) 6.91 1000/mcL 4.80 - 10.80 1000/mcL - January 10, 2024 Neutrophils 73.1 % 40.0 - 75.0 % - December Transferrin Sat. (Calc) 21 % 20 - 55 % - February 06 TIBC (Calc) 340 mcg/dL 185 - 515 mcg/dL - Novem r 2023 Neutrophils 72.9 % 40.0 - 75.0 % - January 262023 Ferritin 30 ng/mL 22 - 322 ng/mL - January 262023 BALWINDER 2.0 % 0.0 - 4.0 % - February 07, 2024 WBC (No Diff) 8.21 1000/mcL 4.80 - 10.80 1000/mcL - February 07, 2024 Eosinophil 2.2 % 0.0 - 7.0 % - February 07, 2024 Basophils 1.3 % 0.0 - 1.5 % - February 07, 2024 Lymphocytes 15.4 % 19.0 - 48.0 % Low January 262023 Monocytes 6.1 % 3.0 - 10.0 % - February 07, 2024 MCH 30.9 pg 27.0 - 31.0 pg - January 262023 MCHC 32.8 g/dL 30.0 - 36.0 g/dL - February 07, 2024 Reticulocyte 3.15 % 0.80 - 2.10 % High February 07, 2024 Hemoglobin x 3 36 % 42.0 - 54.0 % Low Novembe r 2023 Platelets 144 1000/mcL 130 - 400 [facility] RDW 14.3 % 11.5 - 14.5 % - January UIBC/TIBC 269 mcg/dL 155 - 355 mcg/dL - February 07, 2024 Iron 71 mcg/dL 45 - 160 mcg/dL - February 07, 2024 Folate, Serum 13.2 ng/mL No Reference Ran Provided - February 07, 2024 Hemoglobin x 3 36 % 42.0 - 54.0 % Low Novembe r 2023 Hemoglobin x 3 36.6 % 42.0 - 54.0 % Low Novembe r 2023 Hemoglobin x 3 34.8 % 42.0 - 54.0 % Low Decembe r 2023 Basophils 0.4 % 0.0 - 1.5 % - March 06, 2024 WBC (No Diff) 7.52 1000/mcL 4.80 - 10.80 1000/mcL - March 06, 2024 BALWINDER 1.5 % 0.0 - 4.0 % - March 06, 2024 RDW 13.6 % 11.5 - 14.5 % - February MCHC 32.8 g/dL 30.0 - 36.0 g/dL - March 06, 2024 MCH 31.5 pg 27.0 - 31.0 pg High February 252023 Lymphocytes 16.2 % 19.0 - 48.0 % Low February 252023 Neutrophils 76.6 % 40.0 - 75.0 % High February 252023 Eosinophil 1.6 % 0.0 - 7.0 % - March 06, 2024 Monocytes 3.6 % 3.0 - 10.0 % - March 06, 2024 Reticulocyte 1.73 % 0.80 - 2.10 % - March 06, 2024 Platelets 160 1000/mcL 130 - 400 1000/mcL - [facility] mb2023 Hemoglobin x 3 37.5 % 42.0 - 54.0 % [facility]Cal[facility] 338 mcg/dL 185 - 515 [facility] Transferrin Sat. (Calc) 21 % 20 - 55 % - March 06 Iron 71 mcg/dL 45 - 160 mcg/dL - March 06, 2024 UIBC/TIBC 267 mcg/dL 155 - 355 mcg/dL - March 06, 2024 Hemoglobin x 3 35.1 % 42.0 - 54.0 % Low [facility] RDW 13.6 % 11.5 - 14.5 % - February MCH 32.1 pg 27.0 - 31.0 pg High February 262023 MCHC 33.9 g/dL 30.0 - 36.0 g/dL - March 19, 2024 WBC (No Diff) 8.20 1000/mcL 4.80 - 10.80 1000/mcL - March 19, 2024 Hemoglobin x 3 35.7 % 42.0 - 54.0 % Low Decee r 2023 Hemoglobin x 3 35.7 % 42.0 - 54.0 % Low Decee r 2023 Hemoglobin x 3 31.2 % 42.0 - 54.0 % Low April 05, 2024 HGB 10.4 g/dL 14.0 - 18.0 g/dL Low April 05, 2024 BALWINDER 1.8 % 0.0 - 4.0 % - April 10 025 Eosinophil 2.4 % 0.0 - 7.0 % - April 10 Basophils 3.0 % 0.0 - 1.5 % High April 10 Lymphocytes 10.9 % 19.0 - 48.0 % Low March Monocytes 7.8 % 3.0 - 10.0 % - April 10, 2024 Neutrophils 74.1 % 40.0 - 75.0 % - March TIBC (Calc) 349 mcg/dL 185 - 515 mcg/dL - April 10, 2024 UIBC/TIBC 277 mcg/dL 155 - 355 mcg/dL - April 10, 2024 Iron 72 mcg/dL 45 - 160 mcg/dL - March 282024 Transferrin Sat. (Calc) 21 % 20 - 55 % - April 10, 2024 Reticulocyte 1.55 % 0.80 - 2.10 % - March 282024 Platelets 138 1000/mcL 130 - 400 1000/mcL - Kevin [email or web address] HGB 11.7 g/dL 14.0 - 18.0 g/dL Low April 10, 2024 Hemoglobin x 3 35.1 % 42.0 - 54.0 % Low April 10, 2024 MCHC 34.2 g/dL 30.0 - 36.0 g/dL - April 10, 2024 RDW 13.0 % 11.5 - 14.5 % - April 10, 2024 MCH 31.6 pg 27.0 - 31.0 pg High March RBC 3.71 mill/mcL 4.70 - 6.10 mill/mcL Low April 10, 2024 HCT 34.4 % 42.0 - 52.0 % Low April 10, 2024 WBC (No Diff) 6.67 1000/mcL 4.80 - 10.80 1000/mcL - April 10, 2024 Hemoglobin x 3 37.8 % 42.0 - 54.0 % Low April 17, 2024 HGB 12.6 g/dL 14.0 - 18.0 g/dL Low April 17, 2024 Hemoglobin x 3 32.1 % 42.0 - 54.0 % Low April 24, 2024 HGB 10.7 g/dL 14.0 - 18.0 g/dL Low April 24, 2024 Metabolic/Renal Result Type Result Value Relevant Referen ce Range Interpretation Date URR, Calc 76 % 65 - 80 % - February 06 024 BUN, Post 15 mg/dL 6 - 19 mg/dL - February 07, 2024 Bicarbonate 21 mEq/L 22 - 29 mEq/L Low January 262023 Potassium 4.6 mEq/L 3.5 - 5.1 mEq/L - February 07, 2024 Chloride 99 mEq/L 96 - 108 mEq/L - January 262023 BUN/Creat Ratio 11.5 10.0 - 20.0 - February 07, 2024 Sodium 135 mEq/L 136 - 145 mEq/L Low February 07, 2024 BUN 63 mg/dL 6 - 19 mg/dL High February 07, 2024 Creatinine, Serum 5.48 mg/dL 0.60 - 1.30 mg/dL High February 07, 2024 BUN 64 mg/dL 6 - 19 mg/dL High March 06, 2024 BUN, Post 16 mg/dL 6 - 19 mg/dL - March 06, 2024 URR, Calc 75 % 65 - 80 % - March 06 024 Chloride 99 mEq/L 96 - 108 mEq/L - February 252023 Bicarbonate 24 mEq/L 22 - 29 mEq/L - February 252023 Sodium 138 mEq/L 136 - 145 mEq/L - March 06, 2024 Potassium 4.5 mEq/L 3.5 - 5.1 mEq/L - March 06, 2024 Creatinine, Serum 5.89 mg/dL 0.60 - 1.30 mg/dL High March 06, 2024 BUN/Creat Ratio 10.9 10.0 - 20.0 - March 06, 2024 URR, Calc 72 % 65 - 80 % - April 10 Sodium 140 mEq/L 136 - 145 mEq/L - March 282024 BUN/Creat Ratio 8.4 10.0 - 20.0 Low April 10, 2024 Creatinine, Serum 6.32 mg/dL 0.60 - 1.30 mg/dL High April 10, 2024 Bicarbonate 26 mEq/L 22 - 29 mEq/L - March Chloride 100 mEq/L 96 - 108 mEq/L - March Potassium 4.4 mEq/L 3.5 - 5.1 mEq/L - March 282024 BUN 53 mg/dL 6 - 19 mg/dL High April 10, 2024 BUN, Post 15 mg/dL 6 - 19 mg/dL - April 10, 2024 HD Adequacy Result Type Result Value Relevant Referen ce Range Interpretation Date Krt/V 0.00 No Reference Ran ge Provided - November 08, 2023 Krt/V 0.00 No Reference Ran ge Provided - December 06, 2023 Krt/V 0.00 No Reference Ran ge Provided - January 10, 2024 spKt/V Gotch 1.71 No Reference Ran ge Provided - February 07, 2024 wstdKt/V without residual 2.5 No Reference Range Provided - February 07, 2024 Krt/V 0.00 No Reference Ran ge Provided - February 07, 2024 wstdKt/V, residual 0.0 No Reference Range Provided - February 07, 2024 spKt/V ([place]ird[place] II) 1.70 No Reference Range Provided - February 07, 2024 wstdKt/V 2.5 No Reference Ran ge Provided - February 07, 2024 eKt/V ([place]) 1.48 No Reference Range Provided - February 07, 2024 wstdKt/V, residual 0.0 No Reference Range Provided - March 06, 2024 spKt/V (Daugirdas II) 1.59 No Reference Range Provided - March 06, 2024 wstdKt/V without residual 2.5 No Reference Range Provided - March 06, 2024 Krt/V 0.00 No Reference Ran ge Provided - March 06, 2024 eKt/V ([place]) 1.39 No Reference Range Provided - March 06, 2024 wstdKt/V 2.5 No Reference Ran ge Provided - March 06, 2024 spKt/V Gotch 1.58 No Reference Ran ge Provided - March 06, 2024 wstdKt/V 2.4 No Reference Ran ge Provided - April 10, 2024 wstdKt/V without residual 2.4 No Reference Range Provided - April 10, 2024 Krt/V 0.00 No Reference Ran ge Provided - April 10, 2024 spKt/V Gotch 1.45 No Reference Ran ge Provided - April 10, 2024 spKt/V (Daugirdas II) 1.46 No Reference Range Provided - April 10, 2024 eKt/V ([place]) 1.27 No Reference Range Provided - April 10, 2024 wstdKt/V, residual 0.0 No Reference Range Provided - April 10, 2024 Bone/Mineral Result Type Result Value Relevant Referen ce Range Interpretation Date Magnesium 1.9 mg/dL 1.6 - 2.6 mg/dL - May 10, 2023 Magnesium 1.8 mg/dL 1.6 - 2.6 mg/dL - August 08 Magnesium 1.9 mg/dL 1.6 - 2.6 mg/dL - October PTH-Intact, Plasma 413 pg/mL 16 - 80 pg/mL High Oct us2023 Magnesium 2.0 mg/dL 1.6 - 2.6 mg/dL - December 06, 2023 Vitamin D 25 Hydroxy 28.9 ng/mL 30.0 - 100.0 ng/mL Low December 06, 2023 PTH-Intact, Plasma 400 pg/mL 16 - 80 pg/mL High Nov PTH-Intact, Plasma 589 pg/mL 16 - 80 pg/mL High Jan Vitamin D 25 Hydroxy 17.6 ng/mL 30 - 100 ng/mL Low February 07, 2024 Magnesium 1.7 mg/dL 1.6 - 2.6 mg/dL - February 07, 2024 Corrected Ca x P Product 47 0 - 54 - February 06 Alkaline Phosphatase 65 U/L 40 - 129 U/L - No 2023 Phosphorus 6.2 mg/dL 2.6 - 4.5 mg/dL High February 07, 2024 Ca x P Product 48 0 - 54 - January 262023 Calcium, Total 7.8 mg/dL 8.4 - 10.2 mg/dL Low Nov2023 Corrected Ca x P Product 54 0 - 54 - March 06 Ca x P Product 55 0 - 54 High February 252023 Calcium, Total 7.7 mg/dL 8.4 - 10.2 mg/dL Low 2023 Phosphorus 7.1 mg/dL 2.6 - 4.5 mg/dL High March 06, 2024 PTH-Intact, Plasma 432 pg/mL 16 - 80 pg/mL High Feb emb2023 Calcium, Total 8.2 mg/dL 8.4 - 10.2 mg/dL Low Kevin [email or web address] Ca x P Product 43 0 - 54 - March Phosphorus 5.3 mg/dL 2.6 - 4.5 mg/dL High March 282024 Corrected Ca x P Product 42 0 - 54 - April 10, 2024 Liver/Nutrition Result Type Result Value Relevant Referen ce Range Interpretation Date Glucose 136 mg/dL 70 - 100 mg/dL High January 262023 Globulin (Calc) 2.2 g/dL 2.0 - 4.0 g/dL - 2023 A/G Ratio 1.9 1.0 - 2.0 - February 06 024 Total Protein 6.4 g/dL 6.0 - 8.5 g/dL - 2023 Albumin (BCG) 4.2 g/dL 3.5 - 5.2 g/dL - 2023 eNPCR 0.90 No Reference Ran ge Provided - February 07, 2024 eNPCR 0.87 No Reference Ran ge Provided - March 06, 2024 Glucose 178 mg/dL 70 - 100 mg/dL High February 252023 Globulin (Calc) 2.3 g/dL 2.0 - 4.0 g/dL - 2023 A/G Ratio 1.8 1.0 - 2.0 - March 06 024 Albumin (BCG) 4.1 g/dL 3.5 - 5.2 g/dL - 2023 Total Protein 6.4 g/dL 6.0 - 8.5 g/dL - 2023 eNPCR 0.73 No Reference Ran ge Provided - April 10, 2024 Total Protein 6.6 g/dL 6.0 - 8.5 g/dL - April 10, 2024 Globulin (Calc) 2.3 g/dL 2.0 - 4.0 g/dL - 2024 Albumin (BCG) 4.3 g/dL 3.5 - 5.2 g/dL - April 10, 2024 A/G Ratio 1.9 1.0 - 2.0 - April 10 Glucose 205 mg/dL 70 - 100 mg/dL High March Immunochemistry Result Type Result Value Relevant Referen ce Range Interpretation Date HCV s/co ratio 0.02 0.00 - 0.79 - December 06, 2023 HCV s/co ratio 0.02 0.00 - 0.79 - February 07, 2024 Urinalysis Result Type Result Value Relevant Referen ce Range Interpretation Date Bilirubin (Urine) Negative No Reference R celia Provided - March 13, 2024 Appearance (Urine) Clear No Reference Range Provided - March 13, 2024 pH (Urine) 7.5 5.0 - 9.0 - March 13 024 Glucose (Urine) 2+ No Reference Ran ge Provided Abnormal March 13, 2024 Blood (Urine) Negative No Reference Ran ge Provided - March 13, 2024 Color (Urine) Yellow No Reference Ran ge Provided - March 13, 2024 Nitrite (Urine) Negative No Reference Ran ge Provided - March 13, 2024 Leukocyte Esterase (Urine) Negative No Reference Range Provided - March 13, 2024 Ketones (Urine) Negative No Reference Ran ge Provided - March 13, 2024 Bacteria (Urine) None No Reference Ra nge Provided - March 13, 2024 Uribilinogen (Urine) 0.2 EU/dL 0.2 - 1.0 EU/dL - March 13, 2024 Specific [place] (Urine) 1.015 1.001 - 1.035 - March 13 Protein (Urine) 2+ No Reference Ran ge Provided Abnormal March 13, 2024 WBC/HPF (Urine) 0-5 0 - 5 /HPF - March 13, 2024 RBC/HPF (Urine) 0-2 0 - 2 /HPF - March 13, 2024 Squamous Epithelial Cells (Urine) None No Reference Range Provided - March 13, 2024 Trace Elements Result Type Result Value Relevant Reference Range Interpre tation Date Aluminum < 5 mcg/L 0 - 10 mcg/L - August 09, 2023 Aluminum < 5 mcg/L 0 - 10 mcg/L - November Aluminum < 5 mcg/L 0 - 10 mcg/L - February 07, 2024 Infectious Diseases Result Type Result Value Relevant Referen ce Range Interpretation Date HCV Ab (anti-HCV) Nonreactive No Reference R celia Provided - February 07, 2024 Hep B Surface Ab (anti-HBs) 250 mIU/mL No Reference Range Provided - February 07, 2024 Hep B Surface Ag (HBsAg) Negative No Reference Range Provided - February 07, 2024 Microbiology-Culture, Blood Result Type Result Value Relevant Referen ce Range Interpretation Date Culture Result (Blood Culture) No Aerobic or Anaerobic Growth after 5 Days of Incubation. No Reference Range Provided - March 19, 2024 Microbiology-Culture, Blood 2nd Set Result Type Result Value Relevant Referen ce Range Interpretation Date Culture Result (Blood Culture - 2nd Set) No Aerobic or Anaerobic Growth after 5 Days of Incubation. No Reference Range Provided - March 19, 2024 Microbiology-Culture, Urine Result Type Result Value Relevant Referen ce Range Interpretation Date Culture Result (Urine) No Growth After 48 Hours No Reference Range Provided - March 10, 2024 Culture Result (Urine) <10,000 CFU/mL No Reference Range Provided - March 13, 2024 DIALYSIS PRESCRIPTION Conventional Hemodialysis Data Element Value Order Date/Time March 22, 2024 Frequency 3X Week Treatment Days TueThuSat Dialyzer 180NRe Optiflux Treatment Time (Total Minutes) 240 min Blood Flow Rate (mL/min) 500 mL/min Dialysate Flow Rate Manual 800 Estimated Dry Weight 96.5 kg Dialysate Concentrate 3.0 K, 2.5 Ca, 1.0 Mg, 100 Dextrose (G3251) Sodium (mEq/L) 138 mEq/L Bicarb Machine Setting (mEq/L) 35 mEq/L Dialysis Access Hemodialysis-AV [place] t-Unknown, Left Upper Arm, Brachial Artery to Axillary Vein Access Placed on September 02, 2022 Arterial Needle Size 15g1 Venous Needle Size 15g1 IMMUNIZATIONS Vaccine Date Dose Route Status Flu Vaccine - [place] Trivalent January 05, 2024 0.5 mL Intramuscular Completed Flu Vaccine - [place] Quadrivalent January 04, 2023 0.5 mL Intramuscular Completed HEPLISAV-B, Series 1 of 4 December 07, 2022 20.0 mcg In tramuscular Completed TRANSPLANT WAITLIST STATUS No Information on Transplant Waitlist Status ADVANCE DIRECTIVES Directive Description Ordered By Effective Date Resuscitation status Full Code Aamir Thakkar Dec 01, 2023 DIALYSIS TREATMENTS Conventional Hemodialysis Date Pre-Treatment Vitals Post-Treatment Manju ls Duration (hr) BFR (mL/min) Dialysate Dialyzer Dialysis Access Meds Admin 2024 Weight 100.10 kg Weight 96.70 kg 04:11:00 510 3.0 K, 2.5 Ca, 1.0 Mg, 100 Dextrose (G3251) 180nre Optifl ux Blood Pressure-sitting 196/85 mmHg Blood Pressure-sit ting 184/67 mmHg Heart Rate 63 beats per minute Blood Pressure-standi ng 187/85 mmHg Respiratory Rate 19 breaths per minute Heart Rate 79 beats per minute Temperature 97.8 deg. F Respiratory Rate 18 breaths per minute - - Temperature 97.6 deg. F April 26, 2024 Weight 98.90 kg Weight 96.50 kg 03:49:00 490 3.0 K, 2.5 Ca, 1.0 Mg, 100 Dextrose (G3251) 180nre Optiflux Hemodialysis-AV [place]-Unknown, Left Upper Arm, Brachial Artery to Axillary Vein Access Placed on September 02, 2022 Diphenhydramine; 50mg,Intravenous - push Heparin Sodium (Porcine) 1,000 Units/mL Systemic; 1000units,Intravenous - push Heparin Sodium (Porcine) 1,000 Units/mL Systemic; 1000units,Intravenous - push Ondansetron HCl (Zofran); 4mg,Intravenous - push Vitamin D (Calcitriol) Oral; 0.75mcg,Oral Blood Pressure-sitting 168/78 mmHg Blood Pressure-sit ting 133/94 mmHg Blood Pressure-standing 177/69 mmHg Blood Pressure-st anding 137/72 mmHg Heart Rate 69 beats per minute Heart Rate 63 beats per minute Respiratory Rate 19 breaths per minute Respiratory Rate 18 breaths per minute Temperature 97.0 deg. F Temperature 96.1 deg. F April 28, 2024 Weight 100.70 kg Weight 97.30 kg 04:00:00 460 3.0 K, 2.5 Ca, 1.0 Mg, 100 Dextrose (G3251) 180nre Optiflux Hemodialysis-AV Graft-Unknown, Left Upper Arm, Brachial Artery to Axillary Vein Access Placed on September 02, 2022 Diphenhydramine; 50mg,Intravenous - push Heparin Sodium (Porcine) 1,000 Units/mL Systemic; 1000units,Intravenous - push Heparin Sodium (Porcine) 1,000 Units/mL Systemic; 1000units,Intravenous - push Ondansetron HCl (Zofran); 4mg,Intravenous - push Vitamin D (Calcitriol) Oral; 0.75mcg,Oral Blood Pressure-sitting 188/89 mmHg Blood Pressure-sit ting 137/68 mmHg Heart Rate 71 beats per minute Blood Pressure-standi ng 144/72 mmHg Respiratory Rate 18 breaths per minute Heart Rate 55 beats per minute Temperature 97.7 deg. F Respiratory Rate 18 breaths per minute - - Temperature 97.7 deg. F
--- OUTSIDE RECORDS SUMMARY | 2024-05-01 09:24 | XMS_ITS | Encounter Summary ---
Author Name [facility] [place] Organization [facility] [place] [place] Address [address] [place] [address] Care Team Providers Care Braided Band Assembler Name Role Phone LEVI RODRÍGUEZ Primary Care [...] AID (WNR) Mar 28, 2013 MEDICAI D [id number] YOU MCLEAN PATIENT MEDICARE (WNR) MEDICARE (M) PART A Jan 27, 2016 PART A [id number] [id number] YOU MCLEAN PATIENT MEDICARE (WNR) MEDICARE (M) PART B Jan 27, 2016 PART B [id number] [phone] YOU MCLEAN PATIENT MEDICARE (WNR) MEDICARE (M) PART A Jan 27, 2016 PART A [id number] YOU MCLEAN PATIENT MEDICARE (WNR) MEDICARE (M) PART B Jan 27, 2016 PART B [id number] YOU MCLEAN PATIENT Selected Encounter This section includes the information on record at [place] for the Encounter. Date/Time Encounter Type Encounter Description Reason Provider Source August 19, 2023 10:59 AM Outpatient Encounter COMMUNITY CARE CONSULT MONIKA RODRÍGUEZ Litzy Encounter Template Text not used by [place] Plan of Treatment: Future Appointments (+ 6 months) and Future Tests (+/- 45 days) The Plan of Treatment section includes future care activities for the patient from all [place] treatmentfacilities. This section includes future appointments and future orders which are active, pending or scheduled. Future Appointments This section includes appointments that were scheduled to occur 6 months from the date of the Encounter, up to a maximum of 20 appointments. The data comes from all [place] treatment facilities. Appointment Date/Time Appointment Type Appointme nt Facility Name Aug 31, 2023 10:00 AM AMBULATORY - MEDICINE [facility] Sep 16, 2023 01:00 PM [facility]ORY - NONE [facility] Sep 16, 2023 02:30 PM AMBULATORY - MEDICINE [facility] Sep 21, 2023 08:30 AM AMBULATORY - MEDICINE [facility] Oct 10, 2023 01:30 PM AMBULATORY - NONE [facility] Oct 26, 2023 08:30 AM AMBULATORY - MEDICINE [facility] Nov 09, 2023 10:00 AM AMBULATORY - MEDICINE [facility] Nov 14, 2023 09:00 AM AMBULATORY - MEDICINE [facility] Nov 14, 2023 10:00 AM AMBULATORY - MEDICINE [facility] Nov 23, 2023 08:30 AM AMBULATORY - MEDICINE [facility] Dec 09, 2023 11:00 AM AMBULATORY - MEDICINE [facility] Dec 27, 2023 08:00 AM AMBULATORY - NONE [facility] Dec 27, 2023 08:30 AM AMBULATORY - MEDICINE [facility] Jan 02, 2024 10:00 AM AMBULATORY - MEDICINE [facility] Jan 04, 2024 08:00 AM AMBULATORY - MEDICINE [facility] Jan 04, 2024 11:00 AM AMBULATORY - SURGERY . Leonela GONZALEZ [facility] Jan 23, 2024 01:00 PM AMBULATORY - NONE . [facility] Social History: Smoking Status (Most current) and Tobacco Use (All prior to encounter date) This section includes the most current, and the historical, smoking and tobacco- related health factors from the [place] facility where the Encounter took place. Current Smoking Status This section includes the most current smoking, or tobacco-related health factor, from the [place] facility where the Encounter took place. Date/Time Current Smoking Status Comment Facil ity Dec 26, 2019 09:17 AM VA-TOBACCO USER EVERY DAY [facility] Tobacco Use History This section includes a history of the smoking, or tobacco-related health factors, that were collected on or before the date of the Encounter. The data comes from the [place] facility where the Encounter took place. Date/Time Smoking Status/Tobacco Use Comment F acility Dec 26, 2019 09:17 AM VA-TOBACCO USE 30 YEARS OR MORE [facility] Dec 26, 2019 09:17 AM VA-TOBACCO USE ADVICE [facility] Dec 26, 2019 09:17 AM VA-TOBACCO USE PET HOUSE SITTER NO [facility] Dec 26, 2019 09:17 AM VA-TOBACCO USE MED NO [facility] Dec 26, 2019 09:17 AM VA-TOBACCO USER EVERY DAY [facility] Jun 26, 2014 09:29 AM CURRENT TOBACCO USER [facility] Sep 04, 2013 09:12 AM CURRENT TOBACCO USER [facility] Sep 04, 2013 09:12 AM TOBACCO MEDS OFFER ED BUT DECLINED [facility] Sep 01, 2001 01:01 PM CURRENT TOBACCO USER [facility] Sep 01, 2001 01:[address] [facility] Sep 21, 2000 07:28 AM CURRENT TOBACCO USER [facility] Sep 21, 2000 07:28 AM TOBACCO USE . [facility] Jul 21, 2000 01:43 PM CURRENT TOBACCO USER [facility] Advance Directives: All historical and current Section Date Range: From patient's date of to the date document was created. This section includes ALL of a patient's completed or amended [place] Advance and Rescinded Directives. The entries below indicate that a directive exists for the patient, but an actual copy is not included with this document. The data comes from all [place] facilities. Date Advance Directives Provider Source August 05, 1995 ADVANCE DIRECTIVE MICHELLEROGERKYLE [facility] Radiology Reports: +/- 30 days of [...] the Encounter. The data comes from all [place] treatment facilities. Date/Time Radiology Report Provider Source Sep 16, 2023 12:22 PM US RENAL COMPLETE: YOU MCLEAN [id number] -1950 Ex Date: SEP 16, 2023@12:22 Req Phys: SINDHU PEDROZA Loc: [facility] CHR ASSIST TXP EVAL ( Img Loc: [facility]ULTR[facility] Service: [address] [address] (Case [id number] COMPLETE) US RENAL COMPLETE (US Detailed) CPT:97119 Reason for Study: ESRD pt on HD being evaluated for renal transplant Clinical History: Report Status: Verified Date Reported: SEP 16, 2023 Date Verified: SEP 16, 2023 Striper Machine E-Sig:/ES/ROSELINE ALBRIGHT Report: US RENAL COMPLETE [id number] 09/16/2023 4:24 PM HISTORY: ESRD pt on HD being evaluated for renal transplant Comparison: 07/09/2016 TECHNIQUE: Transabdominal sonography was performed. FINDINGS: The right kidney measures 10.3 x 7.1 x 6.1 cm. The right renal volume is 231 mL. The left kidney measures 12.2 x 6.6 x 6.1 cm. The left renal volume is 260 mL. The renal cortical echogenicities remain diffusely increased. The renal cortical thicknesses are normal. No hydronephrosis or contour deforming solid renal masses are present. There is a linear echogenic nonshadowing focus demonstrating twinkle artifact within the lower pole of the right renal cortex which measures 4 mm, presumably a nonobstructing calculus. Multiple simple appearing right renal cortical cysts are again noted, the largest of which measures 2.1 cm within the lateral upper pole. Bladder: Unremarkable. No ureteral jet phenomena were noted. Impression: Persistently abnormal renal cortical echogenicities compatible with chronic medical renal disease. 4 mm nonobstructing lower pole right renal calculus with multiple renal cortical cysts. Primary Interpreting Staff: ROSELINE ALBRIGHT, Diagnostic Radiologist (Striper Machine) /ROSELINE PONCE [facility] Encounter Notes: All associated encounter notes This section contains the clinical notes associated to the Encounter. Date/Time Encounter Note(s) Provider Source August 19, 2023 10:59 AM ADMINISTRATIVE NOT E: LOCAL TITLE: BENEFICIARY TRAVEL (BT) STANDARD TITLE: ADMINISTRATIVE NOTE DATE OF NOTE: AUGUST 19, 2023@10:59 ENTRY DATE: AUGUST 19, 2023@10:59:56 AUTHOR: LEVI RODRÍGUEZ EXP COSIGNER: URGENCY: STATUS: COMPLETED BENEFICIARY TRAVEL COMMON CARRIER: This request is subject to Beneficiary Travel eligibility requirements and administrative approval. *Abernathy can safely be transported or transfer in and out of a private vehicle, taxi, bus or other common carrier (public transportation). *Or Abernathy does not need to be on a stretcher during transport. *Or does not require restraints during transport. *Or Abernathy does not require direct supervision during transport. *Or does not require acute medical care during transport. Suggested medically appropriate forms of transportation: Taxi/Hired Car Type of care being provided: Outpatient appointment Date travel is to commence: July coil machine supervisor time (if needed): Estimated time frame Abernathy will require transportation: 1 Year From: Abernathy's Residence: [address] [place] [id number] To: (Facility Name): [facility] [place] City/State: [facility] Does the Abernathy have a certified medical coding specialist or need the assistance of an attendant? No Does the Abernathy travel with a service animal? Shayna /es/ LEVI RODRÍGUEZ MD Signed: 08/19/2023 11:01 LEVI RODRÍGUEZ [facility]
--- OUTSIDE RECORDS SUMMARY | 2024-05-01 09:24 | XMS_ITS | Encounter Summary ---
Author Name [facility] [place] Address [address] [place] [address] Care Team Providers Care Coin Machine Operator Name Role Phone LEVI RODRÍGUEZ Primary Care [...] AID (WNR) Mar 28, 2013 MEDICAI D [id number] YOU MCLEAN PATIENT MEDICARE (WNR) MEDICARE (M) PART A Jan 27, 2016 PART A [id number] [phone] VINAYYOU PATIENT MEDICARE (WNR) MEDICARE (M) PART B Jan 27, 2016 PART B [id number] YOU MCLEAN PATIENT MEDICARE (WNR) MEDICARE (M) PART A Jan 27, 2016 PART A [id number] MCLEAN YOU PATIENT MEDICARE (WNR) MEDICARE (M) PART B Jan 27, 2016 PART B [id number] YOU MCLEAN PATIENT Selected Encounter This section includes the information on record at [place] for the Encounter. Date/Time Encounter Type Encounter Description Reason Provider Source Jan 04, 2024 11:00 AM OFFICE O/P EST MOD 30 MIN OPTOMETRY ICD-10-CM H47.20 Unspecified optic atrophy GUSTAVO AKBAR IHE Encounter Template Text not used by [facility] Assessments - Encounter Diagnoses This section includes the primary and secondary diagnoses documented for the Encounter. Date/Time Primary/Secondary Diagnosis Diagnosis Name Provider Source Jan 09, 2024 07:06 PM PRIMARY Unspecified optic atrophy GUSTAVO AKBAR [facility] Jan 09, 2024 07:06 PM SECONDARY Chalazion left lower eyelid GUSTAVO AKBAR [facility] Jan 09, 2024 07:06 PM SECONDARY Type 2 diab with mild nonp rtnop without macular edema, bi GUSTAVO AKBAR [facility] Plan of Treatment: Future Appointments (+ 6 months) and Future Tests (+/- 45 days) The Plan of Treatment section includes future care activities for the patient from all [place] [facility]. This section includes future appointments and future orders which are active, pending or scheduled. Future Appointments This section includes appointments that were scheduled to occur 6 months from the date of the Encounter, up to a maximum of 20 appointments. The data comes from all [place] treatment facilities. Appointment Date/Time Appointment Type Appointme nt Facility Name Jan 23, 2024 01:00 PM AMBULATORY - NONE . [facility] May 30, 2024 09:30 AM AMBULATORY - NONE . [facility] Jul 04, 2024 08:30 AM AMBULATORY - SURGERY [facility] Active, Pending, and Scheduled Orders This section includes a listing of several types of active, pending, and scheduled orders, including clinic medications orders, diagnostic test orders, procedure orders and consult orders; where the start date of the order is 45 days before the date of the Encounter or 45 days after the date of theEncounter. The data comes from all [place] treatment [facility]. Test Date/Time Test Type Test Details Facility Name Jan 10, 2024 12:00 AM Laboratory - Chemi stry Order TSH W/ REFLEX FT4 (STL) GREEN LI-HEP PLASMA SP [facility] Social History: Smoking Status (Most current) and Tobacco Use (All prior to encounter date) This section includes the most current, and the historical, smoking and tobacco- related health factors from the [place] facility where the Encounter took place. Current Smoking Status This section includes the most current smoking, or tobacco-related health factor, from the [place] facility where the Encounter took place. Date/Time Current Smoking Status Comment Suyapa ity Dec 29, 2021 01:00 PM VA-TOBACCO DOESNT USE WI 30 MIN WAKEUP [facility] Tobacco Use History This section includes a history of the smoking, or tobacco-related health factors, that were collected on or before the date of the Encounter. The data comes from the [place] facility where the Encounter took place. Date/Time Smoking Status/Tobacco Use Comment F acility Dec 29, 2021 01:00 PM VA-TOBACCO USE 30 YEARS OR MORE [facility] Dec 29, 2021 01:00 PM VA-TOBACCO USE ADVICE [facility] Dec 29, 2021 01:00 PM VA-TOBACCO USE POULTRY FEED SUPERVISOR NO [facility] Dec 29, 2021 01:00 PM VA-TOBACCO USE MED NO [facility] Dec 29, 2021 01:00 PM VA-TOBACCO USER SOME DAYS [facility] Dec 10, 2020 10:30 AM VA-TOBACCO USE > 1 5 LESS THAN 30 YEARS [facility] Dec 10, 2020 10:30 AM VA-TOBACCO USE ADVICE [facility] Dec 10, 2020 10:30 AM VA-TOBACCO USE POULTRY FEED SUPERVISOR NO [facility] Dec 10, 2020 10:30 AM VA-TOBACCO USE MED NO [facility] Dec 10, 2020 10:30 AM VA-TOBACCO USE WI 30 MIN OF WAKEUP [facility] Dec 10, 2020 10:30 AM VA-TOBACCO USER EVERY DAY [facility] August 22, 2018 01:17 PM VA-TOBACCO USE 30 YEARS OR MORE [facility] August 22, 2018 01:17 PM VA-TOBACCO USE ADVICE [facility] August 22, 2018 01:17 PM VA-TOBACCO USE POULTRY FEED SUPERVISOR NO [facility] August 22, 2018 01:17 PM VA-TOBACCO USE MED NO [facility] August 22, 2018 01:17 PM VA-TOBACCO USE WI 30 MIN OF WAKEUP [facility] August 22, 2018 01:17 PM VA-TOBACCO USER EVERY DAY [facility] Aug 31, 2016 09:57 AM CURRENT TOBACCO USER [facility] Aug 31, 2016 09:57 AM TOBACCO MEDS OFFER ED BUT DECLINED [facility] August 13, 2015 10:09 AM CURRENT TOBACCO USER [facility] August 13, 2015 10:09 AM TOBACCO MEDS OFFER ED BUT DECLINED [facility] July 30, 2008 07:34 AM CURRENT TOBACCO USER [facility] July 30, 2008 07:34 AM TOBACCO OFFERRED P T MEDS (PROVIDER) [facility] May 28, 2008 10:38 AM CURRENT TOBACCO USER [facility] July 27, 2007 09:18 AM CURRENT TOBACCO USER [facility] July 27, 2007 09:18 AM TOB INFO ON NON-VA STOP SMOKING CLINIC [facility] July 27, 2007 09:[address] OP SMOKING CLINIC [facility] Sep 19, 2006 08:38 AM CURRENT TOBACCO USER [facility] Sep 19, 2006 08:38 AM TOB-DECLINES SMOKI NG CESSATION REFERRAL [facility] Sep 19, 2006 08:38 AM TOBACCO MEDS OFFER ED BUT DECLINED [facility] Advance Directives: All historical and current Section Date Range: From patient's date of to the date document was created. This section includes ALL of a patient's completed or amended [place] Advance and Rescinded Directives. The entries below indicate that a directive exists for the patient, but an actual copy is not included with this document. The data comes from all [place] facilities. Date Advance Directives Provider Source August 05, 1995 ADVANCE DIRECTIVE MICHELLE,ROGERRUSSELL SALGUERO [facility] Encounter Notes: All associated encounter notes This section contains the clinical notes associated to the Encounter. Date/Time Encounter Note(s) Provider Source Jan 04, 2024 08:28 AM OPTOMETRY NOTE: LOCAL TITLE: OPTOMETRY NOTE STANDARD TITLE: OPTOMETRY NOTE DATE OF NOTE: JAN 04, 2024@08:28 ENTRY DATE: JAN 04, 2024@08:28:56 AUTHOR: BASSAM AKBAR EXP COSIGNER: URGENCY: STATUS: COMPLETED Last seen 2020 Reason for visit: routine exam/Glaucoma suspect LR CC: 1. PT LTFU x 3 yrs Reports increasingly worse near vision, using OTC NVO glasses Distance vision decreased, but not terrible 2. Stye on LLL Few days/weeks 3. H/o dermatologic melanoma-Arm No h/o mets 4. Proptosis OD/Ptosis OS Pt unaware, reviewed ID photos from 2006, this was present in some form at that time, has progressed some, but not a new finding. Ocular Meds: None Ocular ROS: (+) Diabetes without retinopathy OU (+) Glaucoma Suspect OU (+) Cataracts OU (+) Fissure asymetry - proptosis OD/ptosis OS Family OcHX: (-) blindness (-) glaucoma (-) AMD (-) RD Cardiovascular ROS: no change from problem & medication lists CPRS Problem list, medications and allergies reviewed: CPRS Serology for Diabetes GLUCOSE 153 H mg/dL 02/09/2023 11:02 No HEMOGLOBIN A1C EO data found Cardiovascular BP: 165/80 (01/02/2024 09:48) Pulse: 87 (01/02/2024 09:46) Neuro: Orientation: Normal Psych: Mood/Affect: Normal Depression/suicide ideation: NO VISUAL ACUITY With correction Distance Visual Acuity O.D. 20/40 O.S. 20/40 Pupils PERRL OU (-)APD Confrontation: FTFC OU Extra-Ocular Muscles Full OU Externals/adnexa: Proptosis OD, dertamtochalasis OS Refraction: O.D. +0.75 DS 20/25 O.S. +0.50 -0.50 100 20/30 Add: + 2.xx SLIT LAMP EXAMINATION Lids/Lashes/Lacrimal (+) Bleph OU. Chalazion with overlying derm breakdown LLL Conjunctiva/Sclera White/quiet OU Cornea (+) Shagreen/EBMD OU Ant Chamber Deep and quiet OU Iris Normal, (-)NVI OU Lens Gr 2 NS Intraocular Pressures (Goldmann) 1 gtt fluress Date: O.D. O.S. Time Meds 01/04/24 16 16 0828 none RETINAL EVALUATION 1 phenyleph 2.5%, 1 trop 1% OU DFE Dilated retinal exam Optic Nerve OD: 0.5 CDR Superior pallor OS: 0.5 CDR Flat, pink, distinct (-)NVD Vessels: 2/3 OU Macula: O.D. Flat, clear (-)CSME O.S. Flat, clear (-)CSME Post Pole: O.D. Clear O.S. 1 dot heme inferior arcade Periphery: OD: Flat and attached OS: Flat and attached Vitreous: clear OU Assessment/Plan 01/04/24 1. Optic disk pallor OD Longstadinging, consistent with prior scans 2016 Pt has been LTFU, never had VF, Given evidence of this dating back several years and no symptoms, feel likely ION/retinal vascular event or NTG type process, low concern for compression. Carotid US WNL 2020 Discussed with pt, monitor 6 months, IOP, VF 2. Proptosis OD Vs ptosis OS Reviewed 10 yr old photo of pt, consistent with historical appearance. Ordered thyroid labs. Will consider imaging at f/u, though again, given the duration of both the proptosis and ONH pallor, not overly concerning. 3. Chalazion OS LLL. Discussed oculoplastics, pt declines. Has my contact information if he would like referral. 4. Mild NPDR OS Isolated dot heme. BG well controlled. DFE 12 months DIABETIC RETINOPATHY: Pt. educated on the importance of good control of blood glucose levels for the prevention of vision loss and blindness due to diabetic retinopathy. 5. Mild age related cataracts OU Presurgical, Monitor 6. Refractive error OU New glasses RTC 6 months /krystal/ BASSAM AKBAR Supervisor Carding Signed: 01/10/2024 08:45 BASSAM AKBAR [facility]
--- OUTSIDE RECORDS SUMMARY | 2024-05-01 09:25 | XMS_ITS | Encounter Summary ---
Author Organization [facility] Address [address] [place] [address] Care Team Providers Care Automatic Quilling Machine Operator Name Role Phone Morgan Mercado MD Primary Care Provider [phone] Encounter Details Date Type Department Care Team (Late st Contact Info) Description 03/17/2006 Outpatient Historical Division of Neurology [address] [address] Lencho Ibanez MD [address] [facility] [address] [place] [address] Social History Tobacco Use Types Packs/Day Years Used Date Smoking Tobacco: Never Assessed Sex and Gender Information Value Date Recorded Sex Assigned at Not on file Legal Sex Male 4:23 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 [place] [address] PCP - General Family Practice 11/02/16 documented as of this encounter
--- OUTSIDE RECORDS SUMMARY | 2024-05-01 09:25 | XMS_ITS | Encounter Summary ---
Author Organization [facility] Address [address] [place] [address] Care Team Providers Care Loft Worker Apprentice Name Role Phone Morgan Mercado MD Primary Care Provider [phone] Encounter Details Date Type Department Care Team (Late st Contact Info) Description 03/18/2006 Outpatient Historical Division of Neurology [address] [address] Lencho Ibanez MD [address] [facility] [address] [place] [address] Social History Tobacco Use Types Packs/Day Years Used Date Smoking Tobacco: Never Assessed Sex and Gender Information Value Date Recorded Sex Assigned at Not on file Legal Sex Male 

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
--- OUTSIDE RECORDS SUMMARY | 2024-05-01 09:25 | XMS_ITS | Continuity of Care Document ---
Author Name [facility] Organization [facility] Care Team Providers Care Park Manager Name Role Phone [facility] Unavailable Unavailable Problems Combined list of problems from Department of Defense and [facility] facilities. It does not include entries that were removed or entered in error. Problem Status Onset Date Problem Type Date of Resolution Comments Source Positive ETT, normal heart cath Active 992 Condition [facility] Peptic Ulcer Active 981 Condition [facility] abnormal ct scan of abdomen Active Condition May 02, 2014 Entered By: FABY MONTANA Comment: 09/14/13 irregularity of the right kidneyFe2014 Entered By: FABY MONTANA Comment: 05/02/14 no changes [facility] AF- Atrial Fibrillation (SCT 18928549) Active Condition [facility] Anxiety (SCT 24190942) Active Condition [facility] Arthritis, Gouty Active Condition [facility] Santos Active Condition July 26 08 Entered By: NICKIE PEDROZA Comment: SUSTAINED OVER 75% OF BODY IN 2005 [facility] Cardiomyopathy (SCT 91597857) Active Condition [facility] Chronic kidney disease (SNOMED CT 159826202) Active Condition [facility] Chronic low back pain Active Condition Jan 18, 2001 Entered By: REID GALINDO Comment: sp lumbar disc surgery L3/4- L4/5 [facility] Chronic low back pain (SNOMED CT 287308684) Active Condition Jun Entered By: YOU DAO Comment: s/p laminectomy [facility] Clear cell carcinoma of kidney Active Condition [facility] COPD - Chronic Obstructive Pulmonary Disease (SCT 37301757) Active Condition [facility] Dependence on renal dialysis Active Condition [facility] Depression (SCT 66844167) Active Condition [facility] Diabetes Mellitus Type 2 (SCT 19780485) Active Condition [facility] End-stage renal disease Active Condition [facility] Gout Active Condition [facility] History of partial nephrectomy Active Condition [facility] HTN Active Condition [facility] HTN - Hypertension (SCT 77372844) Active Condition [facility] Hyperlipidemia (SCT 22175204) Active Condition [facility] Hyperparathyroidism due to renal insufficiency Active Condition [facility] Lesion of liver Active Condition [facility] Liver mass Active Condition [facility] Low Back Pain (SCT 291052999) Active Condition [facility] Malignant Melanoma of Skin (SCT 51441052) Active Condition [facility] Personal History of Alcoholism (ICD-9-CM V11.3) Active Condition [facility] Posttraumatic stress disorder Active Condition [facility] Renal Cancer ([facility] 201210296) Active Condition [facility] Renal cell carcinoma Active Condition [facility] Renal mass (SNOMED CT 237006394) Active Condition [facility] Scarring (ICD-9-CM 709.2) Active Condition Jan 27, 2007 Entered By: OSMEL PERLA Comment: 04/29 70% OF BODY BURNT [facility] Generalized Anxiety Disorder Inactive Condition 12/31/2020 [facility] Hyperlipidemia (SNOMED CT 56717685) Inactive Condition 12/26/2018 Jul 14, 1995 Entered By: YOU DAO Comment: High chol & triglyc [facility] Hypertension Inactive Condition 12/26/2018 [facility] Renal Impairment (SCT 339940880) Inactive Condition 02/09/2023 [facility] Tobacco user (SNOMED CT 666665865) Inactive Condition 12/31/2020 [facility] Type 2 diabetes mellitus (SNOMED CT 48310095) Inactive Condition 12/26/2018 [facility] Diagnosis: ICD-10-CM H47.20 Unspecified optic atrophy Active Diagnosis [facility] Diagnosis: ICD-10-CM N18.6 End stage renal disease Active Diagnosis [facility] Diagnosis: ICD-10-CM Z72.0 Tobacco use Active Diagnosis [facility] Diagnosis: ICD-10-CM E11.9 Type 2 diabetes mellitus without complications Active Diagnosis [facility] Diagnosis: ICD-10-CM K08.109 Complete loss of teeth, unspecified cause, unspecified class Active Diagnosis [facility] Diagnosis: ICD-10-CM Z13.5 Encounter for screening for eye and ear disorders Active Diagnosis [facility] Diagnosis: ICD-10-CM F41.9 Anxiety disorder, unspecified Active Diagnosis [facility] Diagnosis: ICD-10-CM H53.9 Unspecified visual disturbance Active Diagnosis [facility] Diagnosis: ICD-10-CM F43.10 Post-traumatic stress disorder, unspecified Active Diagnosis [facility] Diagnosis: ICD-10-CM C64.2 Malignant neoplasm of left kidney, except renal pelvis Active Diagnosis [facility] Diagnosis: ICD-10-CM E16.2 Hypoglycemia, unspecified Active Diagnosis [facility] Medications Combined list of outpatient medications from Department of Defense and [facility] facilities.Medications provided include 1) outpatient medications from the last 15 months, and 2) patient-reported medications. Medication Details Route Status Patient Instructions Prescription Expires Prescription Number Last Dispense Date Ordering Provider Order Date Order Qty Source ALPRAZOLAM 1MG TAB TAKE ONE TABLET BY MOUTH TWICE A DAY ORAL ACTIVE ERICA CUETO 2022 [facility] CARISOPRODO L 350MG TAB TAKE ONE TABLET BY MOUTH THREE TIMES A DAY ORAL ACTIVE DEISY CRESPO 2013 [facility] DOXAZOSIN MESYLATE 8MG TAB TAKE ONE-HALF TABLET BY MOUTH AT BEDTIME ORAL ACTIVE DEISY CRESPO MARY Mederos 2013 [facility] GLIMEPIRIDE 4MG TAB TAKE ONE TABLET BY MOUTH ONCE A DAY ORAL ACTIVE LEVI RODRÍGUEZ 2019 [facility] LISINOPRIL 40MG TAB TAKE ONE-HALF TABLET BY MOUTH ONCE A DAY ORAL ACTIVE DEISY CRESPO MARY B 2013 [facility] METOPROLOL SUCCINATE 200MG TAB,SA TAKE ONE-HALF TABLET BY MOUTH ONCE A DAY ORAL ACTIVE ZAKDEISY HERNANDEZ B 2013 [facility] NICOTINE 14MG/24HRS PATCH APPLY 1 PATCH TO SKIN SITE EVERY MORNING FOR TOBACCO CESSATIO N REMOVE OLD PATCH BEFORE APPLYING NEW ONE. ROTATE SITES. DO NOT SMOKE WHILE WEARING PATCH. TRANSD ERMAL ACTIVE 10/26/2024 [id number] 4 Gaby GARCIA E 2023 28 [facility] NICOTINE 14MG/24HRS PATCH APPLY 1 PATCH TO SKIN SITE EVERY MORNING REMOVE OLD PATCH BEFORE APPLYING NEW ONE. ROTATE SITES. DO NOT SMOKE WHILE WEARING PATCH. TRANSD ERMAL DISCONT INUED 11/02/2023 [id number] 4 Gaby GARCIA E 2023 42 [facility] NICOTINE POLACRILEX 2MG MINI LOZENGE DISSOLVE 1 LOZENGE BY MOUTH EVERY 4 HOURS NEEDED FOR TOBACCO CESSATIO N DO NOT SMOKE WHILE USING THIS MEDICATI ON ORAL ACTIVE 10/26/2024 [id number] 4 Gaby GARCIA E 2023 162 [facility] NICOTINE POLACRILEX 2MG MINI LOZENGE DISSOLVE 1 LOZENGE BY MOUTH EVERY TWO HOURS NEEDED .DO NOT SMOKE WHILE USING THIS MEDICATI ON. ORAL 10/21/2023 [id number] 4 Gaby GARCIA E 2023 162 [facility] N OXYCODONE HCL 5MG/ACETAMI NOPHEN 325MG TAB TAKE ONE TABLET BY MOUTH EVERY 6 HOURS NEEDED ORAL ACTIVE LULI MONTANA SA [facility] SIMVASTATIN 40MG TAB TAKE ONE-HALF TABLET BY MOUTH EVERY EVENING ORAL ACTIVE LEVI RODRÍGUEZ 2019 [facility] N VITAMIN B COMPLEX CAP TAKE 1 CAPSULE BY MOUTH ONCE A DAY ORAL ACTIVE DEISY CRESPO 2013 [facility] Allergies, Adverse Reactions, Alerts Combined list of allergies from Department of Defense and [facility] Affairs facilities. It does not include entries that were removed or entered in error. Substance Category Reaction Severity Reaction type Status Date Reported Comments Source CODEINE Propensity to adverse reactions to drug (finding) Swelling, Itching active 9 [facility] Immunizations Combined list of available immunizations from the Department of Defense and Veterans Affairs facilities. Immunization Series Date Given Administered By Site Reaction Lot Number CVX Code Drug Policyholder Information Clerk Status Comments Source INFLUENZA, HIGH-DOSE, QUADRIVALENT 2019 197 complet ed [facility] INFLUENZA, UNSPECIFIED FORMULATION 2015 88 complet ed [facility] INFLUENZA, UNSPECIFIED FORMULATION 2014 88 complet ed [facility] INFLUENZA, UNSPECIFIED FORMULATION 2013 88 [facility] 2013 121 complet ed [facility] INFLUENZA, UNSPECIFIED FORMULATION 2012 88 complet [facility] N PNEUMOCOCCAL POLYSACCHARID E PPV23 1 2012 33 complet [facility] DIVISIO N INFLUENZA, UNSPECIFIED FORMULATION 2008 88 complet [facility] DIVISIO N INFLUENZA, UNSPECIFIED FORMULATION 2008 88 complet [facility] N TDAP 2005 115 complet ed [facility] INFLUENZA, UNSPECIFIED FORMULATION 2001 88 complet ed [facility] Results Combined list of recent chemistry, hematology and other laboratory results from Department of Defense and [facility], ranging from 15 months to all on record, depending upon the facility. Order Name Results Value Reference Range Date Interpretation Specimen Comments Source BARBITUR ATES GC/MS BUTALBITAL [PRESENCE] IN URINE NEG 02/09 Specimen Type: URINE Comment: DETECTION LIMIT: 100 ng/mL Ordering Provider: SINDHU PEDROZA Report Released Date/Time: Feb 09, 2023 10:29 AM Reporting Lab: [facility] [address] [place] [phone] Performing Lab: [address] [facility] BARBITUR ATES GC/MS PENTOBARBI DAGOBERTO [PRESENCE] IN URINE NEG 02/09 Specimen Type: URINE Comment: DETECTION LIMIT: 100 ng/mL Ordering Provider: SINDHU PEDROZA Report Released Date/Time: Feb 09, 2023 10:29 AM Reporting Lab: [facility] [address] [place] [phone] Performing Lab: [facility] [address] [place] [address] [facility] BARBITUR ATES GC/MS SECOBARBIT AL [MASS/VOLU ME] IN SERUM OR PLASMA NEG 02/09 Specimen Type: URINE Comment: DETECTION LIMIT: 100 ng/mL Ordering Provider: SINDHU PEDROZA Report Released Date/Time: Feb 09, 2023 10:29 AM Reporting Lab: [facility] [address] [place] [phone] Performing Lab: [address] [facility] BARBITUR ATES GC/MS PHENOBARBI DAGOBERTO [MASS/VOLU ME] IN URINE NEG 02/09 Specimen Type: URINE Comment: DETECTION LIMIT: 100 ng/mL Ordering Provider: SINDHU PEDROZA Report Released Date/Time: Feb 09, 2023 10:29 AM Reporting Lab: [facility] [address] [place], [place] [phone] Performing Lab: [address] [facility] BARBITUR ATES GC/MS AMOBARBITA L [PRESENCE] IN SPECIMEN NEG 02/09 Specimen Type: URINE Comment: DETECTION LIMIT: 100 ng/mL Ordering Provider: SINDHU PEDROZA Report Released Date/Time: Feb 09, 2023 10:29 AM Reporting Lab: [address] [phone] Performing Lab: [address] [facility] BARBITUR ATES GC/MS BARBITURAT E SCREEN PRESENT [IDENTIFIE R] IN URINE NEGATIVE 02/09 Specimen Type: URINE Comment: DETECTION LIMIT: 100 ng/mL Ordering Provider: SINDHU PEDROZA Report Released Date/Time: Feb 09, 2023 10:29 AM Reporting Lab: [address] [address] Performing Lab: [address] [facility] BARBITUR ATES GC/MS BARBITUATE S COMMENTS comment 02/09 Specimen Type: URINE Comment: DETECTION LIMIT: 100 ng/mL Ordering Provider: SINDHU PEDROZA Report Released Date/Time: Feb 09, 2023 10:29 AM Reporting Lab: [address] [address] Performing Lab: [address] [facility] URINALYS IS (STL) COLOR OF URINE Light-Ye llow 02/09 Specimen Type: URINE No comment entered. Ordering Provider: SINDHU PEDROZA Report Released Date/Time: Feb 09, 2023 10:29 AM Reporting Lab: [address] [address] Performing Lab: [address] [address] [facility] URINALYS IS (STL) BILIRUBIN. TOTAL [PRESENCE] IN URINE BY TEST STRIP Negative mg/dL 02/09 Specimen Type: URINE No comment entered. Ordering Provider: SINDHU PEDROZA Report Released Date/Time: Feb 09, 2023 10:29 AM Reporting Lab: [address] [address] Performing Lab: [address] [address] [facility] URINALYS IS (STL) PH OF URINE BY TEST STRIP 7.5 5.0 - 8.0 02/09 Specimen Type: URINE No comment entered. Ordering Provider: SINDHU PEDROZA Report Released Date/Time: Feb 09, 2023 10:29 AM Reporting Lab: [address] [address] Performing Lab: [address] [address] [facility] URINALYS IS (STL) LEUKOCYTES [#/AREA] IN URINE SEDIMENT BY MICROSCOPY HIGH POWER FIELD <1/[HPF] 0 - 5 02/09 Specimen Type: URINE No comment entered. Ordering Provider: SINDHU PEDROZA Report Released Date/Time: Feb 09, 2023 10:29 AM Reporting Lab: [address] [address] Performing Lab: [address] [address] [facility] URINALYS IS (STL) ERYTHROCYT ES [#/VOLUME] IN URINE SEDIMENT BY MICROSCOPY HIGH POWER FIELD <1/[HPF] 0 - 5 02/09 Specimen Type: URINE No comment entered. Ordering Provider: SINDHU PEDROZA Report Released Date/Time: Feb 09, 2023 10:29 AM Reporting Lab: [address] [phone] Performing Lab: [address] [address] [facility] URINALYS IS (STL) APPEARANCE OF URINE Clear 02/09 Specimen Type: URINE No comment entered. Ordering Provider: SINDHU PEDROZA Report Released Date/Time: Feb 09, 2023 10:29 AM Reporting Lab: [address] [phone] Performing Lab: [address] [address] [facility] URINALYS IS (STL) NITRITE [PRESENCE] IN URINE BY TEST STRIP Negative mg/dL 02/09 Specimen Type: URINE No comment entered. Ordering Provider: SINDHU PEDROZA Report Released Date/Time: Feb 09, 2023 10:29 AM Reporting Lab: [address] [address] Performing Lab: [address] [phone] [place] [address] URINALYS IS (STL) GLUCOSE [MASS/VOLU ME] IN URINE BY TEST STRIP Normalmg /dL 02/09 Specimen Type: URINE No comment entered. Ordering Provider: SINDHU PEDROZA Report Released Date/Time: Feb 09, 2023 10:29 AM Reporting Lab: [address] [address] Performing Lab: [address] [address] [facility] URINALYS IS (STL) PROTEIN [MASS/VOLU ME] IN URINE BY TEST STRIP 200 mg/dL - 20 02/09 H Specimen Type: URINE No comment entered. Ordering Provider: SINDHU PEDROZA Report Released Date/Time: Feb 09, 2023 10:29 AM Reporting Lab: [address] [phone] Performing Lab: [address] [address] [facility] URINALYS IS (STL) URN.UROBIL INOGEN Normalmg /dL 02/09 Specimen Type: URINE No comment entered. Ordering Provider: SINDHU PEDROZA Report Released Date/Time: Feb 09, 2023 10:29 AM Reporting Lab: [address] [address] Performing Lab: [address] [address] [facility] URINALYS IS (STL) HEMOGLOBIN [MASS/VOLU ME] IN URINE BY TEST STRIP Negative mg/dL 02/09 Specimen Type: URINE No comment entered. Ordering Provider: SINDHU PEDROZA Report Released Date/Time: Feb 09, 2023 10:29 AM Reporting Lab: [address] [address] Performing Lab: [address] [phone] [place] [address] URINALYS IS (STL) KETONES [MASS/VOLU ME] IN URINE BY TEST STRIP Negative mg/dL 02/09 Specimen Type: URINE No comment entered. Ordering Provider: SINDHU PEDROZA Report Released Date/Time: Feb 09, 2023 10:29 AM Reporting Lab: [address] [phone] Performing Lab: [phone] [place] [address] URINALYS IS (STL) URN.LEUK.E ST. Negative mg/dL 02/09 Specimen Type: URINE No comment entered. Ordering Provider: SINDHU PEDROZA Report Released Date/Time: Feb 09, 2023 10:29 AM Reporting Lab: [address] [address] Performing Lab: [address] [address] [facility] URINALYS IS (STL) SPECIFIC GRAVITY OF URINE 1.012 1.005 - 1.029 02/09 Specimen Type: URINE No comment entered. Ordering Provider: SINDHU PEDROZA Report Released Date/Time: Feb 09, 2023 10:29 AM Reporting Lab: [address] [address] Performing Lab: [address] [address] [facility] METHADON E PANEL (STL) ETHANOL [MASS/VOLU ME] IN URINE Negative mg/dL 0 - 20 02/09 Specimen Type: URINE Comment: The cut-off value for this test was laboratory developed and its performance characteris tics confirmed by the [facility] laboratory thru method comparison with reference laboratory and medication chart review. The laboratory is regulated under CLIA as qualified to perform high-comple xity testing. This test is used for clinical purposes in conjunction with other laboratory tests. Ordering Provider: SINDHU PEDROZA Report Released Date/Time: Feb 09, 2023 10:29 AM Reporting Lab: [address] [address] Performing Lab: [address] [address] [facility] METHADON E PANEL (STL) AMPHETAMIN E [PRESENCE] IN URINE BY SCREEN METHOD Negative ng/mL 02/09 Specimen Type: URINE Comment: The cut-off value for this test was laboratory developed and its performance characteris tics confirmed by the [facility] laboratory thru method comparison with reference laboratory and medication chart review. The laboratory is regulated under CLIA as qualified to perform high-comple xity testing. This test is used for clinical purposes in conjunction with other laboratory tests. Ordering Provider: SINDHU PEDROZA Report Released Date/Time: Feb 09, 2023 10:29 AM Reporting Lab: [address] [address] Performing Lab: [address] [address] [facility] METHADON E PANEL (STL) BENZOYLECG ONINE [PRESENCE] IN URINE Negative ng/mL 02/09 Specimen Type: URINE Comment: The cut-off value for this test was laboratory developed and its performance characteris tics confirmed by the [facility] laboratory thru method comparison with reference laboratory and medication chart review. The laboratory is regulated under CLIA as qualified to perform high-comple xity testing. This test is used for clinical purposes in conjunction with other laboratory tests. Ordering Provider: SINDHU PEDROZA Report Released Date/Time: Feb 09, 2023 10:29 AM Reporting Lab: [place] [address] [facility] [address] Performing Lab: [place] [address] [facility] [address] [facility] METHADON E PANEL (STL) BENZODIAZE PINES [PRESENCE] IN URINE BY SCREEN METHOD 487.1000 -POSng/m L 02/09 Specimen Type: URINE Comment: The cut-off value for this test was laboratory developed and its performance characteris tics confirmed by the [facility] laboratory thru method comparison with reference laboratory and medication chart review. The laboratory is regulated under CLIA as qualified to perform high-comple xity testing. This test is used for clinical purposes in conjunction with other laboratory tests. Ordering Provider: SINDHU PEDROZA Report Released Date/Time: Feb 09, 2023 10:29 AM Reporting Lab: [place] [address] [facility] [phone] Performing Lab: [place] [address] [facility] [address] [facility] METHADON E PANEL (STL) CANNABINOI DS [PRESENCE] IN URINE BY SCREEN METHOD Negative ng/mL 02/09 Specimen Type: URINE Comment: The cut-off value for this test was laboratory developed and its performance characteris tics confirmed by the [facility] laboratory thru method comparison with reference laboratory and medication chart review. The laboratory is regulated under CLIA as qualified to perform high-comple xity testing. This test is used for clinical purposes in conjunction with other laboratory tests. Ordering Provider: SINDHU PEDROZA Report Released Date/Time: Feb 09, 2023 10:29 AM Reporting Lab: [place] [address] [address] [facility] [address] Performing Lab: [place] [address] [facility] [address] [facility] METHADON E PANEL (STL) METHADONE [PRESENCE] IN URINE Negative ng/mL 02/09 Specimen Type: URINE Comment: The cut-off value for this test was laboratory developed and its performance characteris tics confirmed by the [facility] laboratory thru method comparison with reference laboratory and medication chart review. The laboratory is regulated under CLIA as qualified to perform high-comple xity testing. This test is used for clinical purposes in conjunction with other laboratory tests. Ordering Provider: SINDHU PEDROZA Report Released Date/Time: Feb 09, 2023 10:29 AM Reporting Lab: [place] [address] [facility] [address] Performing Lab: [address] [address] [facility] METHADON E PANEL (STL) OPIATES [PRESENCE] IN URINE BY SCREEN METHOD Negative ng/mL 02/09 Specimen Type: URINE Comment: The cut-off value for this test was laboratory developed and its performance characteris tics confirmed by the [facility] laboratory thru method comparison with reference laboratory and medication chart review. The laboratory is regulated under CLIA as qualified to perform high-comple xity testing. This test is used for clinical purposes in conjunction with other laboratory tests. Ordering Provider: SINDHU PEDROZA Report Released Date/Time: Feb 09, 2023 10:29 AM Reporting Lab: [place] [address] [facility] [address] Performing Lab: [place] [address] [facility] [address] [facility] METHADON E PANEL (STL) CREATININE [MASS/VOLU ME] IN URINE 77.6 mg/dL 63 - 166 02/09 Specimen Type: URINE Comment: The cut-off value for this test was laboratory developed and its performance characteris tics confirmed by the [facility] laboratory thru method comparison with reference laboratory and medication chart review. The laboratory is regulated under CLIA as qualified to perform high-comple xity testing. This test is used for clinical purposes in conjunction with other laboratory tests. Ordering Provider: SINDHU PEDROZA Report Released Date/Time: Feb 09, 2023 10:29 AM Reporting Lab: [facility] [address] [facility] [address] Performing Lab: [facility] [address] [place] [phone] [facility] METHADON E PANEL (STL) OXYCODONE CUTOFF [MASS/VOLU ME] IN URINE FOR SCREEN METHOD 661-POSn g/mL 02/09 Specimen Type: URINE Comment: The cut-off value for this test was laboratory developed and its performance characteris tics confirmed by the [facility] laboratory thru method comparison with reference laboratory and medication chart review. The laboratory is regulated under CLIA as qualified to perform high-comple xity testing. This test is used for clinical purposes in conjunction with other laboratory tests. Ordering Provider: SINDHU PEDROZA Report Released Date/Time: Feb 09, 2023 10:29 AM Reporting Lab: [facility] [address] [place] [phone] Performing Lab: [address] [address] [facility] METHADON E PANEL (STL) BUPRENORPH INE [PRESENCE] IN URINE Negative 02/09 Specimen Type: URINE Comment: The cut-off value for this test was laboratory developed and its performance characteris tics confirmed by the [facility] laboratory thru method comparison with reference laboratory and medication chart review. The laboratory is regulated under CLIA as qualified to perform high-comple xity testing. This test is used for clinical purposes in conjunction with other laboratory tests. Ordering Provider: SINDHU PEDROZA Report Released Date/Time: Feb 09, 2023 10:29 AM Reporting Lab: [facility] [address] [facility] [address] Performing Lab: [address] [address] [facility] METHADON E PANEL (STL) FENTANYL [PRESENCE] IN URINE Negative ng/mL 02/09 Specimen Type: URINE Comment: The cut-off value for this test was laboratory developed and its performance characteris tics confirmed by the [facility] laboratory thru method comparison with reference laboratory and medication chart review. The laboratory is regulated under CLIA as qualified to perform high-comple xity testing. This test is used for clinical purposes in conjunction with other laboratory tests. Ordering Provider: SINDHU PEDROZA Report Released Date/Time: Feb 09, 2023 10:29 AM Reporting Lab: [address] [address] Performing Lab: [address] [address] [facility] RAPID PLASMA REAGIN (RPR) REAGIN AB [PRESENCE] IN SERUM BY RPR NONREACT LORAINE 02/09 Specimen Type: SERUM No comment entered. Ordering Provider: SINDHU PEDROZA Report Released Date/Time: Feb 09, 2023 10:29 AM Reporting Lab: [place] [address] [facility] [address] Performing Lab: [address] [address] [facility] QUANTIFE CLARITZA-TB,4 TUBE MYCOBACTER IUM TUBERCULOS IS STIMULATED GAMMA INTERFERON RELEASE BY CD4+ T-CELLS [UNITS/VOL UME] IN BLOOD 0.02 [IU]/mL 02/09 Specimen Type: BLOOD Comment: Negative test result. M. tuberculosi s complex infection unlikely. The Nil tube value reflects the background interferon gamma immune response of the patient's blood sample. This value has been subtracted from the patient's displayed TB and Mitogen results. Lower than expected results with the Mitogen tube prevent false-negat loraine Quantiferon readings by detect- ing a patient with a potential immune suppressive condition and/or suboptimal pre-analyti daniel specimen handling. The TB1 Antigen tube is coated with the M. tuberculosi s-specific antigens designed to elicit responses from TB antigen primed CD4+ helper T-lymphocyt es. The TB2 Antigen tube is coated with the M. tuberculosi s-specific antigens designed to elicit responses from TB antigen primed CD4+ helper and CD8+ cytotoxic T-lymphocyt es. For additional information , please refer to http://SurgiLight/faq/FA Q204 (This link is being provided for information / educational purposes only.) Test Performed by [facility], [facility], [address] [place] [address] Rodolfo Mario M.D., Ph.D., Director of Laboratorie s , [place] [id number] Ordering Provider: SINDHU PEDROZA Report Released Date/Time: Feb 09, 2023 10:29 AM Reporting Lab: [facility] [address] [facility] [address] Performing Lab: [facility] [address] [place] [address] [facility] QUANTIFE CLARITZA-TB,4 TUBE MYCOBACTER IUM TUBERCULOS IS TUBERCULIN STIMULATED GAMMA INTERFERON /MITOGEN STIMULATED GAMMA INTERFERON [UNITS/VOL UME] IN CONTROL BLOOD >10.00[I U]/mL 02/09 Specimen Type: BLOOD Comment: Negative test result. M. tuberculosi s complex infection unlikely. The Nil tube value reflects the background interferon gamma immune response of the patient's blood sample. This value has been subtracted from the patient's displayed TB and Mitogen results. Lower than expected results with the Mitogen tube prevent false-negat loraine Quantiferon readings by detect- ing a patient with a potential immune suppressive condition and/or suboptimal pre-analyti daniel specimen handling. The TB1 Antigen tube is coated with the M. tuberculosi s-specific antigens designed to elicit responses from TB antigen primed CD4+ helper T-lymphocyt es. The TB2 Antigen tube is coated with the M. tuberculosi s-specific antigens designed to elicit responses from TB antigen primed CD4+ helper and CD8+ cytotoxic T-lymphocyt es. For additional information , please refer to http://educ InMyShow .[employer]/faq/FA Q204 (This link is being provided for information / educational purposes only.) Test Performed by [facility], [address] [place] [address] Rodolfo Mario M.D., Ph.D., Director of Laboratorie s , CLIA [id number] Ordering Provider: SINDHU PEDROZA Report Released Date/Time: Feb 09, 2023 10:29 AM Reporting Lab: [facility] [address] [facility] [address] Performing Lab: [facility] [address] [facility] QUANTIFE CLARITZA-TB,4 TUBE MYCOBACTER IUM TUBERCULOS IS STIMULATED GAMMA INTERFERON RELEASE BY CD4+ AND CD8+ T-CELLS [UNITS/VOL UME] CORRECTED FOR BACKGROUND IN BLOOD NEGATIVE 02/09 Specimen Type: BLOOD Comment: Negative test result. M. tuberculosi s complex infection unlikely. The Nil tube value reflects the background interferon gamma immune response of the patient's blood sample. This value has been subtracted from the patient's displayed TB and Mitogen results. Lower than expected results with the Mitogen tube prevent false-negat loraine Quantiferon readings by detect- ing a patient with a potential immune suppressive condition and/or suboptimal pre-analyti daniel specimen handling. The TB1 Antigen tube is coated with the M. tuberculosi s-specific antigens designed to elicit responses from TB antigen primed CD4+ helper T-lymphocyt es. The TB2 Antigen tube is coated with the M. tuberculosi s-specific antigens designed to elicit responses from TB antigen primed CD4+ helper and CD8+ cytotoxic T-lymphocyt es. For additional information , please refer to http://educ [email or web address] Bandz .com/faq/FA Q204 (This link is being provided for information / educational purposes only.) Test Performed by [facility], [facility], [address] [place] [address] Rodolfo Mario M.D., Ph.D., Director of Laboratorie s , CLIA [id number] Ordering Provider: SINDHU PEDROZA Report Released Date/Time: Feb 09, 2023 10:29 AM Reporting Lab: [facility] [address] [facility] [address] Performing Lab: [facility] [id number] [place] [address] [facility] QUANTIFE CLARITZA-TB,4 TUBE MYCOBACTER IUM TUBERCULOS IS STIMULATED GAMMA INTERFERON RELEASE BY CD4+ T-CELLS [UNITS/VOL UME] CORRECTED FOR BACKGROUND IN BLOOD 0.00 [IU]/mL 02/09 Specimen Type: BLOOD Comment: Negative test result. M. tuberculosi s complex infection unlikely. The Nil tube value reflects the background interferon gamma immune response of the patient's blood sample. This value has been subtracted from the patient's displayed TB and Mitogen results. Lower than expected results with the Mitogen tube prevent false-negat loraine Quantiferon readings by detect- ing a patient with a potential immune suppressive condition and/or suboptimal pre-analyti daniel specimen handling. The TB1 Antigen tube is coated with the M. tuberculosi s-specific antigens designed to elicit responses from TB antigen primed CD4+ helper T-lymphocyt es. The TB2 Antigen tube is coated with the M. tuberculosi s-specific antigens designed to elicit responses from TB antigen primed CD4+ helper and CD8+ cytotoxic T-lymphocyt es. For additional information , please refer to [email or web address] [email or web address] Bandz .com/faq/FA Q204 (This link is being provided for information / educational purposes only.) Test Performed by [facility], [facility], [address] [place] [address] Rodolfo Mario M.D., Ph.D., Director of Laboratorie s , [facility] [id number] Ordering Provider: SINDHU PEDROZA Report Released Date/Time: Feb 09, 2023 10:29 AM Reporting Lab: [facility] [address] [facility] [address] Performing Lab: [facility] [id number] [place] [address] [facility] QUANTIFE CLARITZA-TB,4 TUBE MYCOBACTER IUM TUBERCULOS IS STIMULATED GAMMA INTERFERON RELEASE BY CD4+ AND CD8+ T-CELLS [UNITS/VOL UME] CORRECTED FOR BACKGROUND IN BLOOD 0.00 [IU]/mL 02/09 Specimen Type: BLOOD Comment: Negative test result. M. tuberculosi s complex infection unlikely. The Nil tube value reflects the background interferon gamma immune response of the patient's blood sample. This value has been subtracted from the patient's displayed TB and Mitogen results. Lower than expected results with the Mitogen tube prevent false-negat loraine Quantiferon readings by detect- ing a patient with a potential immune suppressive condition and/or suboptimal pre-analyti daniel specimen handling. The TB1 Antigen tube is coated with the M. tuberculosi s-specific antigens designed to elicit responses from TB antigen primed CD4+ helper T-lymphocyt es. The TB2 Antigen tube is coated with the M. tuberculosi s-specific antigens designed to elicit responses from TB antigen primed CD4+ helper and CD8+ cytotoxic T-lymphocyt es. For additional information , please refer to http://educ [email or web address] Bandz .com/faq/FA Q204 (This link is being provided for information / educational purposes only.) Test Performed by [facility], [facility], [address] [place] [address] Rodolfo Mario M.D., Ph.D., Director of Laboratorie s , CLIA [id number] Ordering Provider: SINDHU PEDROZA Report Released Date/Time: Feb 09, 2023 10:29 AM Reporting Lab: [facility] [address] [place] [address] Performing Lab: [address] [facility] PROST. SPECIFIC AG.(PB-S TL) PROSTATE SPECIFIC AG [MASS/VOLU ME] IN SERUM OR PLASMA 0.385 ng/mL 0 - 4 02/09 Specimen Type: SERUM Comment: The listed sex of this patient may not be a typical indication for this test. Therefore, reference ranges or interpretiv e criteria listed may not be valid. Clinical correlation suggested. Ordering Provider: SINDHU PEDROZA Report Released Date/Time: Feb 09, 2023 10:29 AM Reporting Lab: [facility] [address] [place] [address] Performing Lab: [place] [address] [place] [address] [facility] HEPATITI S B SURFACE AB PNL HEPATITIS B VIRUS SURFACE AB [PRESENCE] IN SERUM BY IMMUNOASSA Y INDETERM INANTm[I U]/mL 02/09 Specimen Type: SERUM Comment: The listed sex of this patient may not be a typical indication for this test. Therefore, reference ranges or interpretiv e criteria listed may not be valid. Clinical correlation suggested. Please resubmit a new specimen. Clinical correlation suggested Confirmator y testing to follow. Clinical correlation suggested. Email sent to [facility] reportable diseases Ordering Provider: SINDHU PEDROZA Report Released Date/Time: Feb 09, 2023 10:29 AM Reporting Lab: [place] [address] Performing Lab: [address] [place] [address] HEPATITI S B SURFACE AB PNL HEPATITIS B VIRUS SURFACE AB [UNITS/VOL UME] IN SERUM 9.62 m[IU]/mL 02/09 Specimen Type: SERUM Comment: The listed sex of this patient may not be a typical indication for this test. Therefore, reference ranges or interpretiv e criteria listed may not be valid. Clinical correlation suggested. Please resubmit a new specimen. Clinical correlation suggested Confirmator y testing to follow. Clinical correlation suggested. Email sent to [facility] reportable diseases Ordering Provider: SINDHU PEDROZA Report Released Date/Time: Feb 09, 2023 10:29 AM Reporting Lab: [place] [id number] Performing Lab: [address] HIV COMBO FOURTH GENERATI ON (STL) HIV 1+2 AB+HIV1 P24 AG [PRESENCE] IN SERUM OR PLASMA BY IMMUNOASSA Y Nonreact loraine 02/09 Specimen Type: SERUM No comment entered. Ordering Provider: SINDHU PEDROZA Report Released Date/Time: Feb 09, 2023 10:29 AM Reporting Lab: [address] [place] [address] Performing Lab: [address] [address] [facility] HEP HB S Ag ([place]) ([facility]) HEPATITIS B VIRUS SURFACE AG [PRESENCE] IN SERUM OR PLASMA BY IMMUNOASSA Y Weak REACTIVE 02/09 HH Specimen Type: SERUM Comment: The listed sex of this patient may not be a typical indication for this test. Therefore, reference ranges or interpretiv e criteria listed may not be valid. Clinical correlation suggested. Please resubmit a new specimen. Clinical correlation suggested Confirmator y testing to follow. Clinical correlation suggested. Email sent to [facility] reportable diseases Ordering Provider: SINDHU PEDROZA Report Released Date/Time: Feb 09, 2023 10:29 AM Reporting Lab: [address] [address] Performing Lab: [address] [address] [facility] HEP C Ab HCV Ab ([facility]) HEPATITIS C VIRUS AB [PRESENCE] IN SERUM Nonreact loraine 02/09 Specimen Type: SERUM Comment: The listed sex of this patient may not be a typical indication for this test. Therefore, reference ranges or interpretiv e criteria listed may not be valid. Clinical correlation suggested. Please resubmit a new specimen. Clinical correlation suggested Confirmator y testing to follow. Clinical correlation suggested. Email sent to [facility] reportable diseases Ordering Provider: SINDHU PEDROZA Report Released Date/Time: Feb 09, 2023 10:29 AM Reporting Lab: [address] [address] Performing Lab: [address] [address] [facility] Vital Signs Combined list of inpatient and outpatient Vital Signs from Department of Defense and Veterans Affairs, ranging from 12 months to all on record, depending upon the facility. Vital Sign Value Date Comments Source SYSTOLIC BLOOD PRESSURE 174 01/02/2024 09:46:04 [facility] DIASTOLIC BLOOD PRESSURE 81 01/02/2024 09:46:04 [facility] PULSE OXIMETRY 98 01/02/2024 09:46:04 [facility] WEIGHT 215.3 01/02/2024 09:46:04 [facility] BMI 29kg/m2 01/02/2024 09:46:04 [facility] PAIN 8 01/02/2024 09:46:04 [facility] TEMPERATURE 97 01/02/2024 09:46:04 [facility] PULSE 87 01/02/2024 09:46:04 [facility] RESPIRATION 16 01/02/2024 09:46:04 [facility] Encounters Combined list of: 1) Encounters from Department of [facility] Affairs facilities going back up to thelast 18 months. 2) Encounters from the Department of [facility] facilities going back up to 280 months. Location Location Details Encounter Type Encounter Number Reason For Visit Attending Provider ADM Date DC Date Status Disposition Source [facility] Outpatient Encounter [id number] 10/13 [facility] Outpatient Encounter [id number] 10/13 [facility] Outpatient Encounter [id number] YEHUDA COHEN M 10/20 [facility] Outpatient Encounter [id number] 10/20 [facility] PRO PHONE CALL 11-20 MIN [id number] Diagnos is: ICD-10- CM E16.2 Hypogly cemia, unspeci fied
YEHUDA COHEN 10/20 [facility] CASE MANAGEMENT [id number] Diagnos is: ICD-10- CM C64.2 Maligna nt neoplas m of left kidney, except renal pelvis< br/> ZEYAD FORBESSINDHU Gipson 10/21 [facility] En[facility] [id number] ZEYAD FORBESSINDHU Gipson 10[facility] [id number] 10/28 [facility] Outpatient Encounter [id number] 12/16 [facility] Outpatient Encounter [id number] YEHUDA COHEN 12/16 [facility] Outpatient Encounter [id number] 12/17 [facility] Outpatient Encounter [id number] MALCOLM CAICEDO 12/21 [facility] Outpatient Encounter [id number] Diagnos is: ICD-10- CM N18.6 End stage renal disease
ANTONIETTA PATIÑO 12/22 [facility] Outpatient Encounter [id number] 12/28 [facility] [id number] 12/29 [facility] En[facility] [id number] 01/11 [facility] Outpatient Encounter [id number] BLOSSOM CADE MITRALito 02/01 [facility] Outpatient Encounter [id number] Diagnos is: ICD-10- CM F43.10 Post-tr aumatic stress disorde r, unspeci fied
LEVI RODRÍGUEZ 02/02 [facility] Outpatient Encounter [id number] 02/07 [facility] OFF/OP CNSLTJ NEW/EST LOW 30 [id number] Diagnos is: ICD-10- CM N18.6 End stage renal disease
SINDHU PEDROZA 02/09 [facility] Outpatient Encounter [id number] 03/10 [facility] Outpatient Encounter [id number] 03/14 [facility] Outpatient Encounter [id number] 03/30 [facility] Outpatient Encounter [id number] 08/01 [facility] Outpatient Encounter [id number] 08/[address] [facility] [place] OFF/OP EST MAY X REQ PHY/QHP [id number] Diagnos is: ICD-10- CM H53.9 Unspeci fied visual disturb ance
YEHUDA COHEN 08/18 [facility] Outpatient Encounter [id number] LEVI RODRÍGUEZ 08/18 [facility] PSYCH DIAGNOSTIC EVALUATION [id number] Diagnos is: ICD-10- CM F41.9 Anxiety disorde r, unspeci fied
BLANCA CHARLES T 08/30 [facility] Outpatient Encounter [id number] BLANCA CHARLES T 08/30 [facility] Outpatient Encounter [id number] 08/[address] [facility] Outpatient Encounter [id number] 09/01 [facility] Outpatient Encounter [id number] Diagnos is: ICD-10- CM Z13.5 Encount er for screeni ng for eye and ear disorde rs
ALEXANDRA GODFREY 09/15 [facility] IMG RTA DETCJ/MNTR DS STAFF [id number] Diagnos is: ICD-10- CM Z13.5 Encount er for screeni ng for eye and ear disorde rs
SCOTT OROURKE 09/15 [facility] Outpatient Encounter [id number] HAVEN SCOTT 09/19 [facility] MTMS BY PHARM MIDLEVEL PROVIDER 15 MIN [id number] Diagnos is: ICD-10- CM Z72.0 Tobacco use<br/ > DEISY GARCIA TIE E 09/20 [facility] [place] [id number] Diagnos is: ICD-10- CM K08.109 Complet e loss of teeth, unspeci fied cause, unspeci fied class<b r/> GEORGINA OMALLEY 10/09 [facility] Outpatient Encounter [id number] 10/17 [facility] Outpatient Encounter [id number] 10/17 [facility] MTMS BY PHARM EST 15 MIN [id number] Diagnos is: ICD-10- CM E11.9 Type 2 diabete s mellitu s without complic ations< br/> DEISY GARCIA TIE E 10/25 [facility] TARGETED CASE MANAGEMENT [id number] Diagnos is: ICD-10- CM N18.6 End stage renal disease
KARTHIK HATCH 11/08 [facility] Outpatient Encounter [id number] VISHAL EASON 11/13 [facility] OFF/OP CNSLTJ NEW/EST MOD 40 [id number] Diagnos is: ICD-10- CM N18.6 End stage renal disease
MOLLY ROLAND 11/13 [facility] Outpatient Encounter [id number] 11/13 [facility] Outpatient Encounter [id number] 11/17 [facility] Outpatient Encounter [id number] 11/20 [facility] MTMS BY PHARM EST 15 MIN [id number] Diagnos is: ICD-10- CM Z72.0 Tobacco use<br/ > DEISY GARCIA 11/22 [facility] Outpatient Encounter [id number] LEVI RODRÍGUEZ 12/08 [facility] PROGRAM INTAKE ASSESSMENT [id number] Diagnos is: ICD-10- CM N18.6 End stage renal disease
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
GIFTY AKBAR TTHEW C 01/03 [facility] Outpatient Encounter [id number] 01/09 [facility] Outpatient Encounter [id number] 01/24 [facility] Outpatient Encounter [id number] 02/13 [facility] Outpatient Encounter [id number] 02/14 [facility] Outpatient Encounter [id number] DEISY GUERIN 03/19 [facility] Social History Combined list of available smoking, tobacco, and other social history from Department of Defense and Veterans Affairs facilities. 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 08/22/2018 [facility] History of tobacco use CURRENT TOBACCO USER 08/31/2016 [facility] History of tobacco use CURRENT TOBACCO USER 08/13/2015 [facility] History of tobacco use CURRENT TOBACCO USER 06/26/2014 [facility] History of tobacco use CURRENT TOBACCO USER 09/04/2013 [facility] History of tobacco use TOBACCO OFFERRED PT MEDS (PROVIDER) 07/30/2008 [facility] History of tobacco use CURRENT TOBACCO USER 05/28/2008 [facility] History of tobacco use TOBACCO OFFERED STOP SMOKING CLINIC 07/27/2007 [facility] History of tobacco use CURRENT TOBACCO USER 09/19/2006 [facility] History of tobacco use CURRENT TOBACCO USER 09/01/2001 [facility] History of tobacco use TOB REFUSES SMOKING CESSATION 01/18/2001 [facility] History of tobacco use CURRENT TOBACCO USER 09/21/2000 [facility] History of tobacco use CURRENT TOBACCO USER 07/21/2000 [facility] Plan of Care List of future care activities from Department [facility] facilities. Additional future care activities may be listed in the Assessment and Plan section. Date/Time Care Activity Care Activity Detail Facili ty 05/30/2024 AMBULATORY - NONE AMBULATORY - NONE [facility] 07/04/2024 AMBULATORY - SURGERY AMBULATORY - SURGERY [facility] 09/12/2024 AMBULATORY - SURGERY AMBULATORY - SURGERY [facility] Advance Directives List of completed, amended, or rescinded Advance Directives on record at [facility] facilities. An actual copy of the Directive is not included. Date Advance Directive Provider Source 08/05/1995 ADVANCE DIRECTIVE ROGER MICHELLE [facility]
--- OUTSIDE RECORDS SUMMARY | 2024-05-01 09:25 | XMS_ITS | Encounter Summary ---
Author Organization [facility] Address [address] [place] [address] Care Team Providers Care Gate Watchman Name Role Phone Morgan Mercado MD Primary Care Provider [phone] Encounter Details Date Type Department Care Team (Late st Contact Info) Description 04/06/2006 Outpatient Historical [facility] Carlos Rinaldi, DO [address] [place] [address] Er, Authorized P NO ADDRESS ON FILE Other Acute Postoperative Pain (Primary Dx); Pain in Soft Tissues of Limb; Abn React-Plast Surg NEC; Unspecified Place of Occurrence; Unspecified Essential Hypertension; Unspecified Hypothyroidism Social History Tobacco Use Types Packs/Day Years Used Date Smoking Tobacco: Never Assessed Sex and Gender Information Value Date Recorded Sex Assigned at Not on file Legal Sex 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 Gender Identity Not on file Sexual Orientation Not on file documented as of this encounter Plan of Treatment Not on file documented as of this encounter Procedures Procedure Name Priority Date/Time Associated Diagnosis Comments CBC WITH DIFFERENTIAL Routine 04/06/2006 11:50 AM CIVIL RIGHTS INVESTIGATOR CBC WITH DIFFERENTIAL Routine 04/06/2006 11:50 AM CIVIL RIGHTS INVESTIGATOR C-REACTIVE PROTEIN Routine 04/06/2006 11 :50 AM CIVIL RIGHTS INVESTIGATOR COMPREHENSIVE METABOLIC PANEL Routine 04/06/2006 11:50 AM CIVIL RIGHTS INVESTIGATOR documented in this encounter Results * CBC WITH DIFFERENTIAL (04/06/2006 11:50 AM CIVIL RIGHTS INVESTIGATOR) NEUTROPHILS 65 45 - 70 % INTERFAC E SYSTEM LYMPHOCYTES 26 16 - 45 % INTERFAC E SYSTEM MONOCYTES 7 3 - 13 % INTERFACE SYSTEM EOSINOPHILS 2 0 - 7 % INTERFAC E SYSTEM BASOPHILS 0 0 - 2 % INTERFACE SYSTEM NEUTROPHIL ABSOLUTE 3.85 1.90 - 7.00 K/uL INTERFACE SYSTEM LYMPHOCYTE ABSOLUTE 1.51 0.70 - 4.50 K/uL INTERFACE SYSTEM MONOCYTE ABSOLUTE 0.39 0.10 - 1.30 K/uL INTERFACE SYSTEM EOSINOPHIL ABSOLUTE 0.14 0.00 - 0.70 K/uL INTERFACE SYSTEM BASOPHILS ABSOLUTE 0.02 0.00 - 0.20 K/uL INTERFACE SYSTEM 04/06/2006 11:5 0 AM CIVIL RIGHTS INVESTIGATOR Carlos Rinaldi DO HEMATOLOGY ORDERABLES Edited Performing Organization Address City/[facility] de Phone Number INTERFACE SYSTEM Refer to clinic/hospital department * (ABNORMAL) CBC WITH DIFFERENTIAL (04/06/2006 11:50 AM CIVIL RIGHTS INVESTIGATOR) WBC 5.9 4.0 - 9.8 K/uL INTERFACE SYSTEM RBC 3.25(L) 4.50 - 5.40 M/uL INTERFACE SYSTEM HEMOGLOBIN 9.6(L) 13.6 - 16.5 g/dL INTERFACE SYSTEM HEMATOCRIT 28.7(L) 40.0 - 48.0 % INTERFACE SYSTEM MCV 88.3 82.0 - 99.0 fL INTERFACE SYSTEM MCH 29.5 27.2 - 32.6 pg INTERFACE SYSTEM MCHC 33.4 31.5 - 35.5 % INTERFACE SYSTEM RDW 15.7(H) 11.5 - 14.5 % INTERFACE SYSTEM RDW-STDEV 50.9(H) 37.1 - 48.7 fL INTERFACE SYSTEM PLATELETS 162 140 - 350 K/uL INTERFACE SYSTEM MPV 9.2(L) 9.3 - 12.4 fL INTERFACE SYSTEM 04/06/2006 11:5 0 AM CIVIL RIGHTS INVESTIGATOR Carlos Rinaldi DO HEMATOLOGY ORDERABLES Edited Performing Organization Address City/[facility] Co de Phone Number INTERFACE SYSTEM Refer to clinic/hospital department * (ABNORMAL) C-REACTIVE PROTEIN (04/06/2006 11:50 AM CIVIL RIGHTS INVESTIGATOR) CRP 2.1(H) 0.0 - 0.8 mg/dL INTERFACE SYSTEM 04/06/2006 11:5 0 AM CIVIL RIGHTS INVESTIGATOR Carlos Rinaldi DO CHEMISTRY ORDERABLES Edited Performing Organization Address City/[facility] Co de Phone Number INTERFACE SYSTEM Refer to clinic/hospital department * (ABNORMAL) COMPREHENSIVE METABOLIC PANEL (04/06/2006 11:50 AM CIVIL RIGHTS INVESTIGATOR) GLUCOSE 81 65 - 99 mg/dL INTERFACE SYSTEM CREATININE 2.99(H) 0.67 - 1.17 mg/dL INTERFACE SYSTEM CALCIUM 8.7 8.4 - 10.2 mg/dL INTERFACE SYSTEM ALKALINE PHOSPHATASE 80 40 - 129 U/L INTERFACE SYSTEM AST 20 12 - 38 U/L INTERFACE SYSTEM ALT 19 0 - 41 U/L INTERFACE SYSTEM TOTAL PROTEIN 6.5 6.3 - 8.6 g/dL INTERFACE SYSTEM ALBUMIN 3.6 3.4 - 4.8 g/dL INTERFACE SYSTEM BILIRUBIN TOTAL 0.4 0.2 - 1.0 mg/dL INTERFACE SYSTEM BUN 36(H) 6 - 20 mg/dL INTERFACE SYSTEM SODIUM 137 135 - 145 mmol/L INTERFACE SYSTEM POTASSIUM 4.9 3.5 - 4.9 mmol/L INTERFACE SYSTEM CHLORIDE 103 96 - 108 mmol/L INTERFACE SYSTEM CO2 21(L) 22 - 30 mmol/L INTERFACE SYSTEM GFR, 27(L) >=60 mL/min/1. 7 sq meter INTERFACE SYSTEM GFR 22(L) >=60 mL/min/1. 7 sq meter INTERFACE SYSTEM Comment: Estimated GFR rate interpretative information for both Americans and non- Americans is available on the [facility] Intranet at: [email or web address] Select: Lab Policies and Procedures Select: Reference Ranges - GFR 04/06/2006 11:5 0 AM CIVIL RIGHTS INVESTIGATOR Carlos Rinaldi DO CHEMISTRY ORDERABLES Edited INTERFACE SYSTEM Refer to clinic/hospital department documented in this encounter Visit Diagnoses Diagnosis Other acute postoperative pain- Primary Pain in limb Other restorative surgery causing abnormal patient reaction, or later complication, without mention of misadventure at time of operation Unspecified place of occurrence Unspecified essential hypertension Unspecified hypothyroidism documented in this encounter Care Teams Gate Watchman Relationship Specialty Start Date End Date Morgan Mercado MD [facility] [place] [address] PCP - General Family Practice 11/02/16 documented as of this encounter
--- OUTSIDE RECORDS SUMMARY | 2024-05-01 09:25 | XMS_ITS | Continuity of Care Document ---
Author Organization [facility] Address [address] [place] [address] [place] [address] Phone Care Team Providers Care Sprinkler Helper Name Role Phone Morgan Mercado MD Unavailable Unavailable Allergies, Adverse Reactions, Alerts Substance Reaction Status Criticality No Known Allergies Active No Inform ation Medications Medication Instructions Dosage Effective Dates (start - stop) Status Comments Xanax 1 mg tablet take 1 tablet by oral route 2 times every day as needed 1 MG - Active PRN for anxiety, avoid driving or operate machines Soma 350 mg tablet take 1 Tablet by oral route 2 times every day as needed 350 MG - Active avoid drivin g or operate machines, PRN for pain Percocet 10 mg-325 mg tablet take 1 tablet by oral route every 6 hours as needed as needed 1.00 tablet - Active avoid driving or operate machines,, PRN for pain G89.4 allopurinol 100 mg tablet take 1 tablet by oral route 2 times every day 100 MG - Active start once acute gout resolve albuterol sulfate HFA 90 mcg/actuation aerosol inhaler inhale 1 puff by inhalation route every 4 - 6 hours as needed as needed 1 puff - Active PRN for sob Celexa 20 mg tablet take 1 tablet by oral route every day 20 MG - Active take at night before sleep, avoid driving or operate machines Zocor 10 mg tablet take 1 tablet by oral route every day in the evening 10 MG - Active fenofibrate 54 mg tablet take 1 tablet by oral route every day 54 MG - Active diltiazem ER 120 mg capsule,24 hr,extended release take 1 capsule by oral route every day 120 MG - Active Vitamin D2 1,250 mcg (50,000 unit) capsule take one capsule orally once per week - Active naloxone 0.4 mg/mL injection syringe inject 1 milliliter by intravenous route over once, may repeat at 2 to 3 minute intervals as needed - Active PRN for OD Toprol XL 200 mg tablet,extended release take 1 tablet by oral route every day 200 MG - Active Procedures Procedure Date OFFICE/OUTPATIENT VISIT, EST Medicare Addendum OFFICE/OUTPATIENT VISIT, EST Medicare Addendum OFFICE/OUTPATIENT VISIT, EST OFFICE/OUTPATIENT VISIT, EST Medicare Addendum OFFICE/OUTPATIENT VISIT, EST OFFICE/OUTPATIENT VISIT, EST Medicare Addendum OFFICE/OUTPATIENT VISIT, EST OFFICE/OUTPATIENT VISIT, EST Medicare Addendum OFFICE/OUTPATIENT VISIT, EST Medicare Addendum OFFICE/OUTPATIENT VISIT, EST Medicare Addendum OFFICE/OUTPATIENT VISIT, EST Medicare Addendum OFFICE/OUTPATIENT VISIT, EST Medicare Addendum OFFICE/OUTPATIENT VISIT, EST Medicare Addendum OFFICE/OUTPATIENT VISIT, EST OFFICE/OUTPATIENT VISIT, EST PPPS, subseq visit OFFICE/OUTPATIENT VISIT, EST OFFICE/OUTPATIENT VISIT, EST OFFICE/OUTPATIENT VISIT, EST OFFICE/OUTPATIENT VISIT, EST OFFICE/OUTPATIENT VISIT, EST OFFICE/OUTPATIENT VISIT, EST OFFICE/OUTPATIENT VISIT, EST OFFICE/OUTPATIENT VISIT, EST OFFICE/OUTPATIENT VISIT, EST OFFICE/OUTPATIENT VISIT, EST OFFICE/OUTPATIENT VISIT, EST OFFICE/OUTPATIENT VISIT, EST OFFICE/OUTPATIENT VISIT, EST OFFICE/OUTPATIENT VISIT, EST OFFICE/OUTPATIENT VISIT, EST OFFICE/OUTPATIENT VISIT, EST OFFICE/OUTPATIENT VISIT, EST OFFICE/OUTPATIENT VISIT, EST -2021 OFFICE/OUTPATIENT VISIT, EST OFFICE/OUTPATIENT VISIT, EST OFFICE/OUTPATIENT VISIT, EST OFFICE/OUTPATIENT VISIT, EST OFFICE/OUTPATIENT VISIT, EST OFFICE/OUTPATIENT VISIT, EST OFFICE/OUTPATIENT VISIT, EST OFFICE/OUTPATIENT VISIT, EST OFFICE/OUTPATIENT VISIT, EST OFFICE/OUTPATIENT VISIT, EST OFFICE/OUTPATIENT VISIT, EST OFFICE/OUTPATIENT VISIT, EST OFFICE/OUTPATIENT VISIT, EST OFFICE/OUTPATIENT VISIT, EST OFFICE/OUTPATIENT VISIT, EST OFFICE/OUTPATIENT VISIT, EST PPPS, subseq visit OFFICE/OUTPATIENT VISIT, EST OFFICE/OUTPATIENT VISIT, EST OFFICE/OUTPATIENT VISIT, EST OFFICE/OUTPATIENT VISIT, EST OFFICE/OUTPATIENT VISIT, EST OFFICE/OUTPATIENT VISIT, EST OFFICE/OUTPATIENT VISIT, EST OFFICE/OUTPATIENT VISIT, EST -2019 OFFICE/OUTPATIENT VISIT, EST -2019 OFFICE/OUTPATIENT VISIT, EST OFFICE/OUTPATIENT VISIT, EST OFFICE/OUTPATIENT VISIT, EST OFFICE/OUTPATIENT VISIT, EST OFFICE/OUTPATIENT VISIT, EST OFFICE/OUTPATIENT VISIT, EST PPPS, subseq visit OFFICE/OUTPATIENT VISIT, EST OFFICE/OUTPATIENT VISIT, EST OFFICE/OUTPATIENT VISIT, EST OFFICE/OUTPATIENT VISIT, EST OFFICE/OUTPATIENT VISIT, EST OFFICE/OUTPATIENT VISIT, EST OFFICE/OUTPATIENT VISIT, EST OFFICE/OUTPATIENT VISIT, EST OFFICE/OUTPATIENT VISIT, EST OFFICE/OUTPATIENT VISIT, EST OFFICE/OUTPATIENT VISIT, EST OFFICE/OUTPATIENT VISIT, EST OFFICE/OUTPATIENT VISIT, EST OFFICE/OUTPATIENT VISIT, EST PPPS, subseq visit OFFICE/OUTPATIENT VISIT, EST OFFICE/OUTPATIENT VISIT, EST OFFICE/OUTPATIENT VISIT, EST OFFICE/OUTPATIENT VISIT, EST OFFICE/OUTPATIENT VISIT, EST OFFICE/OUTPATIENT VISIT, EST OFFICE/OUTPATIENT VISIT, EST OFFICE/OUTPATIENT VISIT, EST OFFICE/OUTPATIENT VISIT, EST OFFICE/OUTPATIENT VISIT, EST OFFICE/OUTPATIENT VISIT, EST OFFICE/OUTPATIENT VISIT, EST OFFICE/OUTPATIENT VISIT, EST PPPS, initial visit OFFICE/OUTPATIENT VISIT, EST OFFICE/OUTPATIENT VISIT, EST OFFICE/OUTPATIENT VISIT, EST OFFICE/OUTPATIENT VISIT, EST OFFICE/OUTPATIENT VISIT, EST OFFICE/OUTPATIENT VISIT, EST OFFICE/OUTPATIENT VISIT, EST OFFICE/OUTPATIENT VISIT, EST OFFICE/OUTPATIENT VISIT, EST OFFICE/OUTPATIENT VISIT, EST OFFICE/OUTPATIENT VISIT, EST OFFICE/OUTPATIENT VISIT, EST OFFICE/OUTPATIENT VISIT, EST OFFICE/OUTPATIENT VISIT, EST OFFICE/OUTPATIENT VISIT, EST OFFICE/OUTPATIENT VISIT, EST OFFICE/OUTPATIENT VISIT, EST OFFICE/OUTPATIENT VISIT, EST OFFICE/OUTPATIENT VISIT, EST OFFICE/OUTPATIENT VISIT, EST OFFICE/OUTPATIENT VISIT, EST OFFICE/OUTPATIENT VISIT, EST OFFICE/OUTPATIENT VISIT, EST OFFICE/OUTPATIENT VISIT, EST OFFICE/OUTPATIENT VISIT, EST OFFICE/OUTPATIENT VISIT, EST PREV VISIT, EST, AGE 40-64 OFFICE/OUTPATIENT VISIT, EST OFFICE/OUTPATIENT VISIT, EST OFFICE/OUTPATIENT VISIT, EST OFFICE/OUTPATIENT VISIT, EST OFFICE/OUTPATIENT VISIT, EST OFFICE/OUTPATIENT VISIT, EST OFFICE/OUTPATIENT VISIT, EST OFFICE/OUTPATIENT VISIT, EST OFFICE/OUTPATIENT VISIT, EST OFFICE/OUTPATIENT VISIT, EST OFFICE/OUTPATIENT VISIT, EST OFFICE/OUTPATIENT VISIT, EST OFFICE/OUTPATIENT VISIT, EST -2014 PREV VISIT, EST, AGE 40-64 OFFICE/OUTPATIENT VISIT, EST -2014 OFFICE/OUTPATIENT VISIT, EST OFFICE/OUTPATIENT VISIT, EST OFFICE/OUTPATIENT VISIT, EST OFFICE/OUTPATIENT VISIT, EST OFFICE/OUTPATIENT VISIT, EST OFFICE/OUTPATIENT VISIT, EST OFFICE/OUTPATIENT VISIT, EST OFFICE/OUTPATIENT VISIT, EST OFFICE/OUTPATIENT VISIT, EST OFFICE/OUTPATIENT VISIT, EST OFFICE/OUTPATIENT VISIT, EST OFFICE/OUTPATIENT VISIT, EST PREV VISIT, EST, AGE 40-64 OFFICE/OUTPATIENT VISIT, EST OFFICE/OUTPATIENT VISIT, EST OFFICE/OUTPATIENT VISIT, EST OFFICE/OUTPATIENT VISIT, EST OFFICE/OUTPATIENT VISIT, EST OFFICE/OUTPATIENT VISIT, EST OFFICE/OUTPATIENT VISIT, EST OFFICE/OUTPATIENT VISIT, EST OFFICE/OUTPATIENT VISIT, EST OFFICE/OUTPATIENT VISIT, EST OFFICE/OUTPATIENT VISIT, EST OFFICE/OUTPATIENT VISIT, EST OFFICE/OUTPATIENT VISIT, EST PREV VISIT, EST, AGE 40-64 OFFICE/OUTPATIENT VISIT, EST OFFICE/OUTPATIENT VISIT, EST OFFICE/OUTPATIENT VISIT, EST Advance Directives Directive Yes / No Effective Date File Name No Information Encounters Encounter Description Practice Location Reason(s) For Visit Diagnoses Date Provider Providers Copied on Encounter OFFICE/OUTPA TIENT VISIT, [facility], [place], [address], [address], tel:[phone] [facility] pain (chief complaint)an xiety1 (chief complaint) Chronic pain syndromeGeneraliz ed Anxiety Disorder 5 Rogelio Frias [address], [place], [place], [address] , [place]. tel:[phone] OFFICE/OUTPA TIENT VISIT, [facility], [place], [address], [place], [place], [address], [place] tel:[phone] [facility] pain (chief complaint)an xiety1 (chief complaint) Chronic pain syndromeGeneraliz ed Anxiety Disorder 4 Rogelio Frias [address], [place], [place], [address] , [place]. tel:[phone] OFFICE/OUTPA TIENT VISIT, [facility], [place], [address], [place], [place], [address], [place] tel:[phone] [facility] pain (chief complaint)an xiety1 (chief complaint) Generalized Anxiety DisorderChronic pain syndrome 4 Mercado Morgan. [address], [place], [place], [address] , [place]. tel:[phone] OFFICE/OUTPA TIENT VISIT, EST [facility], [address], [place], [place], [address], [place] tel:[phone] [facility] pain (chief complaint)an xiety1 (chief complaint)go ut1 (chief complaint) Chronic pain syndromeGeneraliz ed Anxiety DisorderGoutTobac co use 4 Mercado Morgan. [address], [place], [place], [address] , [place]. tel:[phone] OFFICE/OUTPA TIENT VISIT, [facility], [place], [address], [place], [place], [address], [place] tel:[phone] [facility] Medicine pain (chief complaint)an xiety1 (chief complaint)CO PD1 (chief complaint) Chronic pain syndromeGeneraliz ed Anxiety DisorderCentrilob ular emphysemaEncntr screen for malignant neoplasm of respiratory organs 4 Mercado Morgan. [address], [place], [place], [address] , [place]. tel:[phone] OFFICE/OUTPA TIENT VISIT, [facility], [place], [address], [place], [place], [address], [place] tel:[phone] [facility] pain (chief complaint)an xiety1 (chief complaint)HL P (chief complaint) Chronic pain syndromeGeneraliz ed Anxiety DisorderEnd stage renal diseaseMixed hyperlipidemia Nov- 4 Mercado Morgan. [address], [address], [place], [place], [address] , [place]. tel:[phone] OFFICE/OUTPA TIENT VISIT, EST [facility], [address], [place], [place], [address], [place] tel:[phone] [facility] pain (chief complaint)an xiety1 (chief complaint) Chronic pain syndromeGeneraliz ed Anxiety Disorder 4 Mercado Morgan. [address], [place], [place], [address] , [place]. tel:[phone] OFFICE/OUTPA TIENT VISIT, [facility], [place], [address] [place], [address], [place] tel:[phone] [facility] pain (chief complaint)an xiety1 (chief complaint) Chronic pain syndromeGeneraliz ed Anxiety Disorder 4 Rogelio Mora. [address], [place], [place], [address] , [place]. tel:[phone] OFFICE/OUTPA TIENT VISIT, [facility], [place], [address] [place], [address], [place] tel:[phone] [facility] pain (chief complaint)an xiety1 (chief complaint)ES RD (chief complaint)ca rdiac1 (chief complaint) Chronic pain syndromeGeneraliz ed Anxiety DisorderEnd stage renal diseaseCardiomyop athy 4 Rogelio Mora. [address], [place], [place], [address] , [place]. tel:[phone] OFFICE/OUTPA TIENT VISIT, [facility], [place], [address] [place], [address], [place] tel:[phone] [facility] pain (chief complaint)an xiety1 (chief complaint) Chronic pain syndromeGeneraliz ed Anxiety Disorder 4 Rogelio Mora. [address], [place], [place], [address] , [place]. tel:[phone] OFFICE/OUTPA TIENT VISIT, [facility], [place], [address] [place], [address], [place] tel:[phone] [facility] pain (chief complaint)an xiety1 (chief complaint)af ib (chief complaint)ES RD (chief complaint) Chronic pain syndromeGeneraliz ed Anxiety DisorderChronic kidney disease, stage 4 (severe)Essential (primary) hypertensionCardi omyopathy 4 Rogelio Mora. [address], [place], [place], [address] , [place]. tel:[phone] OFFICE/OUTPA TIENT VISIT, [facility], [place], [address], [place], [place], [address], [place] tel:[phone] [facility] pain (chief complaint)an xiety1 (chief complaint) Chronic pain syndromeGeneraliz ed Anxiety Disorder May- 0 4 Rogelio Mora. [address], [address], [place], [place], [address] , [place]. tel:[phone] OFFICE/OUTPA TIENT VISIT, [facility], [place], [address], [place], [place], [address], [place] tel:[phone] [facility] anemia1 (chief complaint)DM (chief complaint)pa in (chief complaint)an xiety1 (chief complaint)go ut1 (chief complaint)HL P (chief complaint) GoutChronic pain syndromeMixed hyperlipidemiaChr onic kidney disease, stage 4 (severe)Type 2 diabetes mellitus without complicationsThro mbocytopeniaOther disorders of phosphorus metabolismGeneral ized Anxiety DisorderAnemia 4 Rogelio Mora. [address], [address], [place], [place], [address] , [place]. tel:[phone] OFFICE/OUTPA TIENT VISIT, [facility], [place], [address] [place], [address], [place] tel:[phone] [facility] pain (chief complaint)an xiety1 (chief complaint)LP (chief complaint)go ut1 (chief complaint) Chronic pain syndromeGeneraliz ed Anxiety DisorderGoutMixed hyperlipidemia 4 Rogelio Mora. [address], [place], [place], [address] , [place]. tel:[phone] OFFICE/OUTPA TIENT VISIT, [facility], [place], [address], [place], [place], [address], [place] tel:[phone] [facility] pain (chief complaint)an xiety1 (chief complaint)HL P (chief complaint)go ut1 (chief complaint) Chronic pain syndromeMixed hyperlipidemiaGen eralized Anxiety DisorderGout 3 Rogelio Mora. [address], [place], [place], [address] , [place]. tel:[phone] OFFICE/OUTPA TIENT VISIT, [facility], [place], [address], [place], [place], [address], [place] tel:[phone] [facility] physical (chief complaint) Chronic pain syndromeChronic kidney disease, stage 4 (severe)Polyp of colonCardiomyopat hyEncounter for general adult medical exam w abnormal findingsGeneraliz ed Anxiety DisorderType 2 diabetes mellitus without complicationsMixe d hyperlipidemia 3 Rogelio Mora. [address], [address], [place], [place], [address] , [place]. tel:[phone] OFFICE/OUTPA TIENT VISIT, [facility], [place], [address], [place], [place], [address], [place] tel:[phone] [facility] cough1 (chief complaint) Acute bronchitis 3 Rogelio Mora. [address], [place], [place], [address] , [place]. tel:[phone] OFFICE/OUTPA TIENT VISIT, [facility], [place], [address], [place], [place], [address], [place] tel:[phone] [facility] pain (chief complaint)an xiety1 (chief complaint)HL P (chief complaint)co fernando polyp1 (chief complaint) Chronic pain syndromeGeneraliz ed Anxiety DisorderPolyp of colonMixed hyperlipidemia 3 Rogelio Mora. [address], [place], [place], [address] , [place]. tel:[phone] OFFICE/OUTPA TIENT VISIT, [facility], [place], [address], [place], [place], [address], [place] tel:[phone] [facility] pain (chief complaint)an xiety1 (chief complaint)re nal failure1 (chief complaint)we ight loss1 (chief complaint) Chronic pain syndromeGeneraliz ed Anxiety DisorderAbnormal weight lossChronic kidney disease, stage 4 (severe) 3 Rogelio Mora. [address], [place], [place], [address] , [place]. tel:[phone] OFFICE/OUTPA TIENT VISIT, [facility], [place], [address], [place], [place], [address], [place] tel:[phone] [facility] anxiety1 (chief complaint)pa in (chief complaint)co ugh1 (chief complaint)an emia1 (chief complaint) Anemia in chronic kidney diseaseChronic pain syndromeGeneraliz ed Anxiety DisorderHypocalce miaThrombocytopen iaAcute bronchitis 3 Rogelio Frias [address], [place], [place], [address] , [place]. tel:[phone] OFFICE/OUTPA TIENT VISIT, [facility], [place], [address], [place], [place], [address], [place] tel:[phone] [facility] anxietyy1 (chief complaint)pa in (chief complaint)gl ucose1 (chief complaint)an emia1 (chief complaint)HT N (chief complaint) Chronic pain syndromeGeneraliz ed Anxiety DisorderAnemia in chronic kidney diseaseHypoglycem ia 3 Rogelio Mora. [address], [place], [place], [address] , [place]. tel:[phone] OFFICE/OUTPA TIENT VISIT, [facility], [place], [address] [place], [address], [place] tel:[phone] [facility] anxiety1 (chief complaint)pa in (chief complaint)ES RD (chief complaint)co fernando polyp1 (chief complaint)to bacco (chief complaint) Chronic kidney disease, stage 4 (severe)Chronic pain syndromeGeneraliz ed Anxiety DisorderTobacco usePolyp of colon 3 Rogelio Mora. [address], [place], [place], [address] , [place]. tel:[phone] OFFICE/OUTPA TIENT VISIT, [facility], [place], [address], [place], [place], [address], [place] tel:[phone] [facility] HTN (chief complaint)an xiety1 (chief complaint)pa in (chief complaint) Chronic kidney disease, stage 4 (severe)Chronic pain syndromeEssential (primary) hypertensionGener alized Anxiety Disorder Ponce-0 3 Rogelio Mora. [address], [place], [place], [address] , [place]. tel:[phone] OFFICE/OUTPA TIENT VISIT, [facility], [place], [address], [place], [place], [address], [place] tel:[phone] [facility] pain (chief complaint)an xiety1 (chief complaint)re nal (chief complaint) Essential (primary) hypertensionChron ic kidney disease, stage 4 (severe)Chronic pain syndromeGeneraliz ed Anxiety DisorderMalignant neoplasm of left renal pelvisMixed hyperlipidemia 3 Rogelio Frias [address], [address], [place], [place], [address] , [place]. tel:[phone] OFFICE/OUTPA TIENT VISIT, [facility], [place], [address], [place], [place], [address], [place] tel:[phone] [facility] pain (chief complaint)an xiety1 (chief complaint)hy poglycemia1 (chief complaint)re nal (chief complaint) Chronic kidney disease, stage 4 (severe)Chronic pain syndromeHypoglyce miaGeneralized Anxiety Disorder Jun-0 3 Rogelio Mora. [address], [place], [place], [address] , [place]. tel:[phone] OFFICE/OUTPA TIENT VISIT, [facility], [place], [address] [place], [address], [place] tel:[phone] [facility] pain (chief complaint)an xiety1 (chief complaint)hy poglycemia1 (chief complaint)CK D (chief complaint) Chronic kidney disease, stage 4 (severe)Generaliz ed Anxiety DisorderChronic pain syndromeHypoglyce miaEssential (primary) hypertension 3 Rogelio Mora. [address], [place], [place], [address] , [place]. [phone] OFFICE/OUTPA TIENT VISIT, [facility], [place], [address] [place], [address], [place] tel:[phone] [facility] pain (chief complaint)an xiety1 (chief complaint)CO PD1 (chief complaint)la b (chief complaint) Chronic pain syndromeGoutCentr ilobular emphysemaChronic kidney disease, stage 4 (severe)AnemiaMix ed hyperlipidemiaGen eralized Anxiety DisorderMalignant neoplasm of left renal pelvis 3 Rogelio Frias [address], [place], [place], [address] , [place]. tel:[phone] OFFICE/OUTPA TIENT VISIT, [facility], [place], [address] [place], [address], [place] tel:[phone] [facility] cough1 (chief complaint)HT (chief complaint)em physema1 (chief complaint) Essential (primary) hypertensionEmphy semaAcute bronchitis 3 Rogelio Frias [address], [place], [place], [address] , [place]. tel:[phone] OFFICE/OUTPA TIENT VISIT, [facility], [place], [address] [place], [address], [place] tel:[phone] [facility] pain (chief complaint)an xiety1 (chief complaint)HL P (chief complaint)go ut1 (chief complaint) Chronic pain syndromeGeneraliz ed Anxiety DisorderMixed hyperlipidemiaGou tPolyp of colon 3 Rogelio Frias [address], [place], [place], [address] , [place]. tel:[phone] OFFICE/OUTPA TIENT VISIT, [facility], [place], [address] [place], [address], [place] tel:[phone] [facility] pain (chief complaint)an xiety1 (chief complaint)pn eumonia1 (chief complaint)re nal1 (chief complaint) Chronic pain syndromeGeneraliz ed Anxiety DisorderMalignant neoplasm of left renal pelvisPneumoniaMa lignant neoplasm of bladder, unspecified 2 Rogelio Mora. [address], [place], [place], [address] , [place]. tel:[phone] OFFICE/OUTPA TIENT VISIT, [facility], [place], [address], [place], [place], [address], [place] tel:[phone] [facility] pain (chief complaint)an xiety1 (chief complaint)re nal (chief complaint) Chronic pain syndromeEnd stage renal diseaseGeneralize d Anxiety Disorder 2 Rogelio Mora. [address], [address], [place], [place], [address] , [place]. tel:[phone] OFFICE/OUTPA TIENT VISIT, [facility], [place], [address], [place], [place], [address], [place] tel:[phone] [facility] pain (chief complaint)an xiety1 (chief complaint)an emia1 (chief complaint)re nal1 (chief complaint) AnemiaChronic pain syndromeEnd stage renal diseaseGeneralize d Anxiety DisorderPneumonia HypocalcemiaOther disorders of phosphorus metabolism 2 Rogelio Mora. [address], [address], [place], [place], [address] , [place]. [phone] OFFICE/OUTPA TIENT VISIT, [facility], [place], [address], [place], [place], [address], [place] tel:[phone] [facility] anxiety1 (chief complaint)pa in (chief complaint)re nal1 (chief complaint)an emia1 (chief complaint) Chronic pain syndromeEnd stage renal diseaseGeneralize d Anxiety DisorderMalignant neoplasm of left renal pelvisAnemia 2 Rogelio Mora. [address], [address], [place], [place], [address] , [place]. tel:[phone] OFFICE/OUTPA TIENT VISIT, EST [facility], [address], [place], [place], [address], [place] tel:[phone] [facility] anxiety1 (chief complaint)pa in (chief complaint)HL P (chief complaint)an emia1 (chief complaint) AnemiaChronic pain syndromeEnd stage renal diseaseGeneralize d Anxiety DisorderMixed hyperlipidemia 2 Rogelio Mora. [address], [place], [place], [address] , [place]. [phone] OFFICE/OUTPA TIENT VISIT, [facility], [place], [address], [place], [place], [address], [place] tel:[phone] [facility] anxiety1 (chief complaint)pa in (chief complaint)an emia1 (chief complaint) Chronic pain syndromeGeneraliz ed Anxiety DisorderAnemia 2 Rogelio Mora. [address], [place], [place], [address] , [place]. tel:[phone] OFFICE/OUTPA TIENT VISIT, [facility], [place], [address], [place], [place], [address], [place] tel:[phone] [facility] pneumonia1 (chief complaint)re nal failure1 (chief complaint)an emia1 (chief complaint)pa in1 (chief complaint)an xiety1 (chief complaint) AnemiaEnd stage renal diseasePneumoniaC hronic pain syndromeGeneraliz ed Anxiety DisorderMalignant neoplasm of left renal pelvisPneumonia due to Streptococcus pneumoniae 2 Rogelio Mora. [address], [place], [place], [address] , [place]. tel: [phone] OFFICE/OUTPA TIENT VISIT, [facility], [place], [address], [place], [place], [address], [place] tel:[phone] [facility] low back pain1 (chief complaint)pn eumonia1 (chief complaint) Pneumonia due to Streptococcus pneumoniaePulmona ry embolismLumbago with sciatica, left side 2 Rogelio Mora. [address], [place], [place], [address] , [place]. tel:[phone] OFFICE/OUTPA TIENT VISIT, [facility], [place], [address], [place], [place], [address], [place] tel:[phone] [facility] pain (chief complaint)an xiety1 (chief complaint)pn eumonia1 (chief complaint) Chronic pain syndromeGeneraliz ed Anxiety DisorderPneumonia Pulmonary embolismChronic kidney disease, stage 3 unspecified 2 Mercado Morgan. [address], [place], [place], [address] , [place]. tel:[phone] OFFICE/OUTPA TIENT VISIT, [facility], [place], [address], [place], [place], [address], [place] tel:[phone] [facility] cough1 (chief complaint) Chest pain on breathingHemoptys isDyspnea 2 Rogelio Mora. [address], [place], [place], [address] , [place]. tel:[phone] OFFICE/OUTPA TIENT VISIT, [facility], [place], [address], [place], [place], [address], [place] tel:[phone] [facility] pain (chief complaint)an xiety1 (chief complaint)tu bular adenoma1 (chief complaint) Polyp of colonChronic pain syndromeGeneraliz ed Anxiety Disorder Jun- 2 Rogelio Mora. [address], [place], [place], [address] , [place]. tel:[phone] OFFICE/OUTPA TIENT VISIT, [facility], [place], [address], [place], [place], [address], [place] tel:[phone] [facility] pain (chief complaint)an xiety1 (chief complaint)gl ucose1 (chief complaint)fredrick ng nodule1 (chief complaint) HyperglycemiaChro gallo pain syndromeAnxiolyti c dependenceSolitar y lung nodule 2 Rogelio Mora. [address], [place], [place], [address] , [place]. tel:[phone] OFFICE/OUTPA TIENT VISIT, [facility], [place], [address] [place], [place], [address], [place] tel:[phone] [facility] uric acid1 (chief complaint)HL P (chief complaint)ph os1 (chief complaint)fo late (chief complaint)re nal disease1 (chief complaint)gl ucose1 (chief complaint) GoutSolitary lung noduleHyperlipide miaBPH w/o lower urinary tract symptomChronic kidney disease, stage 3 unspecifiedHypoca lcemiaOther disorders of phosphorus metabolismFolate deficiencyAnxioly tic dependenceChronic pain syndrome 2 Rogelio Frias [address], [place], [place], [address] , [place]. tel:[phone] OFFICE/OUTPA TIENT VISIT, [facility], [place], [address] [place], [place], [address], [place] tel:[phone] [facility] pain1 (chief complaint)an xiety1 (chief complaint)HL P (chief complaint)re nal (chief complaint) Chronic pain syndromeAnxiolyti c dependenceHyperli pidemiaChronic kidney disease, stage 3 unspecifiedBPH w/o lower urinary tract symptomDisorder of parathyroid gland, unspecifiedVitami n D deficiency, unspecifiedSolita ry lung noduleGout 2 Rogelio Mora. [address], [place], [place], [address] , [place]. tel:[phone] OFFICE/OUTPA TIENT VISIT, [facility], [place], [address] [place], [place], [address], [place] tel:[phone] [facility] colon (chief complaint)pa in (chief complaint)an xiety1 (chief complaint)HT N (chief complaint) Chronic pain syndromeAnxiolyti c dependencePolyp of colonAtrial fibrillationEssen tial (primary) hypertension 1 Rogelio Frias [address], [place], [place], [address] , [place]. tel:[phone] OFFICE/OUTPA TIENT VISIT, [facility], [place], [address] [place], [address], tel:[phone] [facility] pain (chief complaint)an xiety1 (chief complaint) Chronic pain syndromeAnxiolyti c dependence 1 Rogelio Frias [address], [place], [place], [address] , [place]. tel:[phone] OFFICE/OUTPA TIENT VISIT, [facility], [place], [address] [place], [address], tel:[phone] [facility] Medicine pain (chief complaint)an xiety1 (chief complaint) Chronic pain syndromeAnxiolyti c dependence 1 Rogelio Frias [address], [address] , [place]. tel:[phone] OFFICE/OUTPA TIENT VISIT, [facility], [place], [address] [place], [address], tel:[phone] [facility] pain (chief complaint)an xiety1 (chief complaint)CO PD1 (chief complaint)go ut1 (chief complaint) GoutChronic pain syndromeAnxiolyti c dependenceEmphyse maChronic kidney disease, stage 3 unspecified 1 Rogelio Frias [address], [place], [place], [address] , [place]. tel:[phone] OFFICE/OUTPA TIENT VISIT, [facility], [place], [address] [place], [address], [place] tel:[phone] [facility] pain (chief complaint)an xiety1 (chief complaint)HL P (chief complaint)go ut1 (chief complaint) Chronic pain syndromeAnxiolyti c dependenceGoutHyp erlipidemia 1 Rogelio Frias [address], [place], [place], [address] , [place]. tel:[phone] OFFICE/OUTPA TIENT VISIT, EST [facility], [address] [place], [address], tel:[phone] [facility] Medicine anemia1 (chief complaint)pa in (chief complaint)an xiety1 (chief complaint)go ut1 (chief complaint) GoutAnemiaChronic pain syndromeAnxiolyti c dependence 1 Rogelio Mora. [address], [place], [place], [address] , [place]. tel:[phone] OFFICE/OUTPA TIENT VISIT, [facility], [place], [address] [place], [address], tel:[phone] [facility] physical (chief complaint) Encounter for general adult medical exam w abnormal findingsHyperlipi demiaAnemiaGoutHy perkalemiaAtrial fibrillationType 2 diabetes mellitus with diabetic nephropathy 1 Rogelio Mora. [address], [place], [place], [address] , [place]. tel:[phone] OFFICE/OUTPA TIENT VISIT, EST [facility], [address] [place], [address], [place] tel:[phone] [facility] pain (chief complaint)an xiety1 (chief complaint)an emia1 (chief complaint)vi tamin D (chief complaint) Chronic pain syndromeAnxiolyti c dependenceAnemiaV itamin D deficiency, unspecified 1 Rogelio Mora. [address], [place], [place], [address] , [place]. tel:[phone] OFFICE/OUTPA TIENT VISIT, EST [facility], [address] [place], [address], [place] tel:[phone] [facility] pain (chief complaint)an xiety1 (chief complaint) Chronic pain syndromeAnxiolyti c dependence 1 Rogelio Mora. [address], [place], [place], [address] , [place]. tel:[phone] OFFICE/OUTPA TIENT VISIT, [facility], [place], [address], [place], [place], [address], [place] tel:[phone] [facility] pain (chief complaint)an xiety1 (chief complaint)an xiety1 (chief complaint) Anxiolytic dependenceHyperli pidemiaChronic pain syndrome 1 Rogelio Mora. [address], [place], [place], [address] , [place]. tel:[phone] OFFICE/OUTPA TIENT VISIT, [facility], [place], [address] [place], [address], [place] tel:[phone] [facility] HLP (chief complaint)re nal (chief complaint)An emia1 (chief complaint)an xiety1 (chief complaint)pa in (chief complaint)fredrick ng nodule1 (chief complaint) Chronic pain syndromeSolitary lung noduleRenal diseaseAnemiaHype rlipidemiaAnxioly tic dependence 1 Rogelio Mora. [address], [place], [place], [address] , [place]. tel:[phone] OFFICE/OUTPA TIENT VISIT, [facility], [place], [address] [place], [address], [place] tel:[phone] [facility] pain (chief complaint)an xiety1 (chief complaint)HL P (chief complaint)fredrick ng nodule1 (chief complaint)HT N (chief complaint) Anxiolytic dependenceChronic pain syndromeHyperlipi demiaEssential (primary) hypertensionBenig n neoplasm of trachea 1 Rogelio Mora. [address], [place], [place], [address] , [place]. tel:[phone] OFFICE/OUTPA TIENT VISIT, [facility], [place], [address], [place], [place], [address], [place] tel:[phone] [facility] pain (chief complaint)an xiety1 (chief complaint)fredrick ng nodule1 (chief complaint)tr achea lesion1 (chief complaint) Chronic pain syndromeSolitary lung noduleBenign neoplasm of tracheaAnxiolytic dependence 1 Rogelio Frias [address], [place], [place], [address] , [place]. tel:[phone] OFFICE/OUTPA TIENT VISIT, [facility], [place], [address], [place], [place], [address], [place] tel:[phone] [facility] COPD1 (chief complaint)pa in (chief complaint)an xiety1 (chief complaint)co ugh1 (chief complaint) EmphysemaChronic pain syndromeAnxiolyti c dependenceSolitar y lung nodule 0 Rogelio Frias [address], [place], [place], [address] , [place]. tel:[phone] OFFICE/OUTPA TIENT VISIT, [facility], [place], [address] [place], [place], [address], [place] tel:[phone] [facility] pain (chief complaint)an xiety1 (chief complaint) Chronic pain syndromeAnxiolyti c dependence 0 Rogelio Frias [address], [place], [place], [address] , [place]. tel:[phone] OFFICE/OUTPA TIENT VISIT, [facility], [place], [address], [place], [place], [address], [place] tel:[phone] [facility] pain (chief complaint)an xiety1 (chief complaint)HL P (chief complaint)re nal (chief complaint) HyperlipidemiaRen al diseaseChronic pain syndromeAnxiolyti c dependence 0 Rogelio Frias [address], [place], [place], [address] , [place]. tel:[phone] OFFICE/OUTPA TIENT VISIT, [facility], [place], [address], [place], [place], [address], [place] tel:[phone] [facility] pain (chief complaint)an xiety1 (chief complaint) Chronic pain syndromeAnxiolyti c dependence Oct-0 2-202 0 Rogelio Mora. [address], [place], [place], [address] , [place]. [phone] OFFICE/OUTPA TIENT VISIT, [facility], [place], [address], [place], [place], [address], [place] tel:[phone] [facility] pain (chief complaint)an xiety1 (chief complaint)PT H (chief complaint)CO PD1 (chief complaint) Chronic pain syndromeAnxiolyti c dependenceHyperpa rathyroidism, unspecifiedEmphys mary Sep-0 4202 0 Rogelio Mora. [address], [place], [place], [address] , [place]. [phone] OFFICE/OUTPA TIENT VISIT, [facility], [place], [address] [place], [address], [place] tel:[phone] [facility] pain (chief complaint)an xiety1 (chief complaint)an xiety1 (chief complaint)PT H (chief complaint) Chronic pain syndromeAnxiolyti c dependenceHyperli pidemiaHyperparat hyroidism, unspecified Oct-0 7 0 Rogelio Mora. [address], [place], [place], [address] , [place]. [phone] OFFICE/OUTPA TIENT VISIT, [facility], [place], [address] [place], [address], [place] tel:[phone] [facility] pain (chief complaint)an xiety1 (chief complaint)ca lcium1 (chief complaint)CO DP1 (chief complaint) HypocalcemiaHyper parathyroidism, unspecifiedVitami n D deficiency, unspecifiedChroni c pain syndromeAnxiolyti c dependenceEmphyse ma 0 9202 0 Rogelio Mora. [address], [place], [place], [address] , [place]. tel:[phone] OFFICE/OUTPA TIENT VISIT, [facility], [place], [address] [place], [address], tel:[phone] [facility] renal1 (chief complaint)DM (chief complaint)HL P (chief complaint)lo w daniel (chief complaint)pa in (chief complaint) HyperlipidemiaChr onic kidney disease, stage 3 (moderate)Type 2 diabetes mellitus without complicationsChro gallo pain syndromeAnxiolyti c dependenceHypocal cemiaOther disorders of phosphorus metabolism 0 Rogelio Mora. [address], [place], [place], [address] , [place]. 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 [address], [place], [place], [address] , [place]. tel:[phone] OFFICE/OUTPA TIENT VISIT, EST [facility], [address] [place], [address], [place] tel:[phone] [facility] pain (chief complaint)an xiety1 (chief complaint) Chronic pain syndromeAnxiolyti c dependence 0 Rogelio Mora. [address], [place], [place], [address] , [place]. tel:[phone] OFFICE/OUTPA TIENT VISIT, EST [facility], [address] [place], [address], [place] tel:[phone] [facility] DM (chief complaint)HL P (chief complaint)ph osphorus1 (chief complaint)pa in (chief complaint)an xiety1 (chief complaint) Chronic pain syndromeHyperlipi demiaAnxiolytic dependenceHypocal cemiaType 2 diabetes mellitus with diabetic nephropathy 0 Rogelio Mora. [address], [place], [place], [address] , . tel:[phone] Referring Provider: Shanda Ham [address], [place], [place], [address]. tel:[phone] OFFICE/OUTPA TIENT VISIT, [facility], [place], [address], [place], [place], [address], [place] tel:[phone] [facility] pain1 (chief complaint)an xiety1 (chief complaint)HL P (chief complaint)af ib (chief complaint)DM (chief complaint) HyperlipidemiaChr onic pain syndromeAtrial fibrillationAnxio lytic dependenceType 2 diabetes mellitus without complications 0 Rogelio Frias [address], [place], [place], [address] , [place]. tel:[phone] Referring Provider: Shanda Ham [address], [place], [place], [address]. tel:[phone] OFFICE/OUTPA TIENT VISIT, [facility], [place], [address], [place], [place], [address], [place] tel:[phone] [facility] pain (chief complaint)an xiety1 (chief complaint)HT N (chief complaint) Chronic pain syndromeEssential (primary) hypertensionAnxio lytic dependence 0 Rogelio Frias [address], [place], [place], [address] , [place]. tel:[phone] Referring Provider: Shanda Ham [address], [place], [place], [address]. tel:[phone] OFFICE/OUTPA TIENT VISIT, [facility], [place], [address], [place], [place], [address], [place] tel:[phone] [facility] pain (chief complaint)an xiety1 (chief complaint)to bacco1 (chief complaint)CO PD1 (chief complaint) Chronic pain syndromeAnxiolyti c dependenceEmphyse maSolitary lung noduleChronic kidney disease, stage 3 (moderate) Feb-2 0-201 9 Mercado Morgan. [address], [place], [place], [address] , [place]. tel:[phone] OFFICE/OUTPA TIENT VISIT, [facility], [place], [address], [place], [place], [address], [place] tel:[phone] [facility] anxiety1 (chief complaint)ch ronic pain (chief complaint)HL P (chief complaint)to bacco1 (chief complaint) Chronic pain syndromeHyperlipi demiaAnxiolytic dependenceTobacco use 9 Rogelio Mora. [address], [place], [place], [address] , [place]. tel:[phone] Referring Provider: Shanda Ham [address], [place], [place], [address]. tel:[phone] OFFICE/OUTPA TIENT VISIT, [facility], [place], [address], [place], [place], [address], [place] tel:[phone] [facility] chronic pain1 (chief complaint)an xiety1 (chief complaint)HL P. (chief complaint)re nal CA (chief complaint)sk in1 (chief complaint) Chronic pain syndromeAnxiolyti c dependenceMaligna nt neoplasm of right renal pelvisHyperlipide miaMelanoma 9 Rogelio Frias [address], [place], [place], [address] , [place]. tel:[phone] Referring Provider: Shanda [address], [place], [place], [address]. tel:[phone] OFFICE/OUTPA TIENT VISIT, [facility], [place], [address], [place], [place], [address], [place] tel:[phone] [facility] chronic pain1 (chief complaint)an xiety1 (chief complaint)HL P (chief complaint) Body mass index (BMI) 33.0-33.9, adultAnxiolytic dependenceChronic pain syndromeHyperlipi demiaAcquired cyst of kidney 9 Rogelio Mora. [address], [place], [place], [address] , . tel:[phone] Referring Provider: Shanda Ham [facility] A, [place], [place], [address]. tel:[phone] OFFICE/OUTPA TIENT VISIT, [facility], [place], [address], [place], [place], [address], [place] [phone] [facility] chronic pain1 (chief complaint)an xiety1 (chief complaint)HL P (chief complaint)re nal1 (chief complaint)DM (chief complaint) Chronic pain syndromeType 2 diabetes mellitus with diabetic nephropathyChroni c kidney disease, stage 3 (moderate)Hyperli pidemiaAnxiolytic dependence 9 Rogelio Frias [address], [place], [place], [address] , [place]. [phone] Referring Provider: Shanda Ham [facility] A, [place], [place], [address]. tel:[phone] OFFICE/OUTPA TIENT VISIT, [facility], [place], [address] [place], [address], [place] [phone] [facility] chronic pain1 (chief complaint)an xiety1 (chief complaint) Chronic pain syndromeAnxiolyti c dependenceType 2 diabetes mellitus with diabetic nephropathy 9 Rogelio Frias [address] [facility], [place], [place], [address] , [place]. tel:[phone] Referring Provider: Shanda Ham [address], [place], [place], [address]. tel:[phone] OFFICE/OUTPA TIENT VISIT, [facility], [place], [address], [place], [address], [place] tel:[phone] [facility] anxiety1 (chief complaint)ch ronic pain1 (chief complaint)af ib1 (chief complaint) Chronic pain syndromeAnxiolyti c dependenceAtrial fibrillation 9 Rogelio Frias [address], [place], [place], [address] , [place]. tel:[phone] Referring Provider: Shanda Ham [address], [place], [place], [address]. tel:[phone] OFFICE/OUTPA TIENT VISIT, [facility], [place], [address], [place], [place], [address], [place] tel:[phone] [facility] chronic pain (chief complaint)an xiety1 (chief complaint)CO PD1 (chief complaint) Chronic pain syndromeAnxiolyti c dependenceEmphyse ma 9 Rogelio Mora. [address], [place], [place], [address] , [place]. tel:[phone] Referring Provider: Shanda Ham [address], [place], [place], [address]. tel:[phone] OFFICE/OUTPA TIENT VISIT, [facility], [place], [address], [place], [place], [address], [place] tel:[phone] [facility] HLP (chief complaint)DM (chief complaint)an xiety1 (chief complaint)pa in (chief complaint) Body mass index (BMI) 34.0-34.9, adultType 2 diabetes mellitus with diabetic nephropathyHyperl ipidemiaAnxiolyti c dependenceChronic pain syndrome 9 Rogelio Mora. [address], [place], [place], [address] , [place]. tel:[phone] Referring Provider: Shanda Ham [address], [place], [place], [address]. tel:[phone] OFFICE/OUTPA TIENT VISIT, [facility], [place], [address], [place], [place], [address], [place] tel:[phone] [facility] Physical (chief complaint) Encounter for general adult medical exam w abnormal findingsType 2 diabetes mellitus with diabetic nephropathyHyperl ipidemiaChronic pain syndrome 9 Rogelio Mora. [address], [place], [place], [address] , [place]. tel:[phone] Referring Provider: Shanda Ham [address], [place], [place], [address]. tel:[phone] OFFICE/OUTPA TIENT VISIT, [facility], [place], [address], [place], [place], [address], [place] tel:[phone] [facility] chronic pain (chief complaint)an xiety1 (chief complaint) Chronic pain syndromeAnxiolyti c dependence 9 Rogelio Mora. [address], [place], [place], [address] , [place]. tel:[phone] OFFICE/OUTPA TIENT VISIT, [facility], [place], [address], [place], [place], [address], [place] tel:[phone] [facility] DM (chief complaint)HL P (chief complaint)ch ronic pain1 (chief complaint)an xiety1 (chief complaint) Chronic pain syndromeType 2 diabetes mellitus with diabetic nephropathyHyperl ipidemiaEssential (primary) hypertensionAnxio lytic dependence Rogelio Mora. [address], [place], [place], [address] , [place]. tel:[phone] Referring Provider: Shanda Ham [address], [place], [place], [address]. tel:[phone] OFFICE/OUTPA TIENT VISIT, [facility], [place], [address] [place], [address], [place] tel:[phone] [facility] chronic pain1 (chief complaint)an xiety1 (chief complaint)co lon1 (chief complaint)DM (chief complaint) Chronic pain syndromeType 2 diabetes mellitus with diabetic nephropathyChroni c kidney disease, stage 3 (moderate)Anxioly tic dependenceEncount er for screening for malignant neoplasm of colon 9 Rogelio Mora. [address], [place], [place], [address] , [place]. tel:[phone] Referring Provider: Shnada Ham [address], [place], [place], [address]. tel:[phone] OFFICE/OUTPA TIENT VISIT, [facility], [place], [address], [place], [place], [address], [place] tel:[phone] [facility] HLP (chief complaint)an xiety1 (chief complaint)ba ck pain1 (chief complaint)DM 1 (chief complaint) Chronic pain syndromeType 2 diabetes mellitus with diabetic nephropathyAnxiol ytic dependenceHyperli pidemia 8 Rogelio Frias [address], [place], [place], [address] , [place]. [phone] Referring Provider: Morgan Mercado [address] [place] [address] A, [place], [place], [address]. tel:[phone] OFFICE/OUTPA TIENT VISIT, [facility], [place], [address], [place], [place], [address], [place] tel:[phone] [facility] chronic pain1 (chief complaint)an xiety1 (chief complaint)HT N (chief complaint)re nal disease1 (chief complaint) Anxiolytic dependenceChronic pain syndromeEssential (primary) hypertensionChron ic kidney disease, stage 3 (moderate) 8 Rogelio Frias [address], [place], [place], [address] , [place]. [phone] OFFICE/OUTPA TIENT VISIT, [facility], [place], [address] [place], [address], [place] tel:[phone] [facility] HLP (chief complaint)an xiety1 (chief complaint)ba ck apin1 (chief complaint)HT N (chief complaint) HyperlipidemiaChr onic pain syndromeAnxiolyti c dependenceEssenti al (primary) hypertensionEncou nter for screening for malignant neoplasm of colon 8 Rogelio Frias [address], [place], [place], [address] , [place]. tel:[phone] Referring Provider: Shanda Ham [address], [place], [place], [address]. [phone] OFFICE/OUTPA TIENT VISIT, [facility], [place], [address], [place], [place], [address], [place] tel:[phone] [facility] Medicine COPD1 (chief complaint)DM (chief complaint)ba ck pain1 (chief complaint)an xiety1 (chief complaint) EmphysemaViral infectionChronic pain syndromeAnxiolyti c dependenceType 2 diabetes mellitus with diabetic nephropathy 8 Rogelio Mora. [address], [place], [place], [address] , [place]. tel:[phone] Referring Provider: Morgan Mercado [address], [place], [place], [address]. tel:[phone] OFFICE/OUTPA TIENT VISIT, [facility], [place], [address], [place], [place], [address], [place] tel:[phone] [facility] COPD1 (chief complaint)an xiety1 (chief complaint)ba ck pain1 (chief complaint)to bacco1 (chief complaint) Body mass index (BMI) 35.0-35.9, adultCOPD with exacerbationTobac co useAnxiolytic dependenceChronic pain syndrome Oct-3 8 Rogelio Mora. [address], [place], [place], [address] , [place]. tel:[phone] Referring Provider: Morgan Mercado [address], [place], [place], [address]. tel:[phone] OFFICE/OUTPA TIENT VISIT, [facility], [place], [address], [address], [place] tel:[phone] [facility] HLP (chief complaint)ba ck pain1 (chief complaint)an xiety1 (chief complaint)to bacco1 (chief complaint) EmphysemaChronic pain syndromeHyperlipi demiaAnxiolytic dependenceMaligna nt neoplasm of right renal pelvis Oct-0 8 Rogelio Mora. [address], [place], [place], [address] , [place]. tel:[phone] OFFICE/OUTPA TIENT VISIT, [facility], [place], [address], [place], [place], [address], [place] tel:[phone] [facility] chronic pain (chief complaint)DM 1 (chief complaint)an xiety1 (chief complaint)HL P (chief complaint) HyperlipidemiaTyp e 2 diabetes mellitus with diabetic nephropathyChroni c pain syndromeAtrial fibrillationAnxio lytic dependence Sep-0 2 8 Rogelio Mora. [address], [place], [place], [address] , [place]. tel:[phone] Referring Provider: Shanda Ham [address], [place], [place], [address]. tel:[phone] OFFICE/OUTPA TIENT VISIT, [facility], [place], [address], [place], [place], [address], [place] tel:[phone] [facility] DM (chief complaint)re nal1 (chief complaint)HL P (chief complaint)to bacco1 (chief complaint)ba ck apin1 (chief complaint) Type 2 diabetes mellitus with diabetic nephropathyHyperl ipidemiaGoutChron ic pain syndromeTobacco use July-0 8 Rogelio Mora. [address], [place], [place], [address] , [place]. tel:[phone] Referring Provider: Shanda Ham [facility] [address], [place], [place], [address]. tel:[phone] OFFICE/OUTPA TIENT VISIT, [facility], [place], [address], [place], [place], [address], [place] tel:[phone] [facility] chronic pain (chief complaint)an xiety1 (chief complaint)to bacco1 (chief complaint) Body mass index (BMI) 33.0-33.9, adultChronic pain syndromeTobacco useAnxiolytic dependence Jun-0 8 Rogelio Mora. [address], [place], [place], [address] , [place]. tel:[phone] Referring Provider: Shanda Ham [address], [place], [place], [address]. tel:[phone] OFFICE/OUTPA TIENT VISIT, [facility], [place], [address], [place], [place], [address], [place] tel:[phone] [facility] Medicine Physical (chief complaint) Encounter for general adult medical exam w abnormal findingsHyperlipi demiaEssential (primary) hypertensionChron ic pain syndrome 8 Rogelio Mora. [address], [place], [place], [address] , [place]. tel:[phone] Referring Provider: Shanda Ham [facility] A, [place], [place], [address]. tel:[phone] OFFICE/OUTPA TIENT VISIT, [facility], [place], [address], [place], [place], [address], [place] tel:[phone] [facility] anxiety1 (chief complaint)ch ronic pain1 (chief complaint)an xiety1 (chief complaint)HL P (chief complaint)Go ut1 (chief complaint)si ck1 (chief complaint) HyperlipidemiaTyp e 2 diabetes mellitus without complicationsAcut e bronchitisGout 8 Rogelio Mora. [address], [place], [place], [address] , [place]. tel:[phone] Referring Provider: Shanda Ham, [place], [place], [address]. tel:[phone] OFFICE/OUTPA TIENT VISIT, [facility], [place], [address], [place], [place], [address], [place] tel:[phone] [facility] sick1 (chief complaint)ch ronic pain (chief complaint)an xiety1 (chief complaint)HT N (chief complaint) Acute bronchitisAnxioly tic dependenceOther spondylosis, lumbar regionEssential (primary) hypertension 8 Rogelio Mora. [address], [place], [place], [address] , [place]. tel:[phone] Referring Provider: Shanda Ham [address], [place], [place], [address]. tel:[phone] OFFICE/OUTPA TIENT VISIT, [facility], [place], [address], [place], [place], [address], [place] tel:[phone] [facility] back pain1 (chief complaint)an xiety1 (chief complaint)CO PD1 (chief complaint)HT N (chief complaint) Essential (primary) hypertensionEmphy semaChronic pain syndromeAtrial fibrillation 7 Rogelio Frias [address], [place], [place], [address] , [place]. tel:[phone] Referring Provider: Morgan Mercado [address], [place], [place], [address]. tel:[phone] OFFICE/OUTPA TIENT VISIT, [facility], [place], [address], [place], [place], [address], [place] tel:[phone] [facility] anxiety1 (chief complaint)ch ronic pain (chief complaint)HT n (chief complaint) Essential (primary) hypertensionChron ic pain syndrome 7 Rogelio Frias [address], [place], [place], [address] , [place]. tel:[phone] Referring Provider: Shanda Ham [address], [place], [place], [address]. tel:[phone] OFFICE/OUTPA TIENT VISIT, [facility], [place], [address], [place], [place], [address], [place] tel:[phone] [facility] back pain1 (chief complaint)an xiety1 (chief complaint)he p C (chief complaint)DM (chief complaint)HL P (chief complaint) Type 2 diabetes mellitus without complicationsChro gallo pain syndromeAnxiolyti c dependenceHyperli pidemia 7 Rogelio Frias [address], [place], [place], [address] , [place]. tel:[phone] Referring Provider: Shanda Ham [address], [place], [place], [address]. tel:[phone] OFFICE/OUTPA TIENT VISIT, [facility], [place], [address], [place], [place], [address], [place] [phone] [facility] chronic pain1 (chief complaint)Af ib1 (chief complaint)an xiety1 (chief complaint)HL P (chief complaint) Chronic pain syndromeHyperlipi demiaAnxiolytic dependenceAtrial fibrillation 7 Rogelio Mora. [address], [place], [place], [address] , [place]. tel:[phone] Referring Provider: Morgan Mercado, [address], [place], [place], [address]. tel:[phone] OFFICE/OUTPA TIENT VISIT, [facility], [place], [address], [place], [place], [address], [place] tel:[phone] [facility] anxiety1 (chief complaint)ch ronic pain (chief complaint)me lanoma1 (chief complaint)HT N (chief complaint) Chronic pain syndromeMelanomaE ssential (primary) hypertensionLiver disease, unspecified 7 Rogelio Mora. [address], [place], [place], [address] , [place]. [phone] Referring Provider: Morgan Mercado [address], [place], [place], [address]. tel:[phone] OFFICE/OUTPA TIENT VISIT, [facility], [place], [address], [address], [place] tel:[phone] [facility] melanoma1 (chief complaint)an xiety1 (chief complaint)ba ck pain1 (chief complaint)li reji lesion1 (chief complaint) MelanomaChronic pain syndromeLiver diseaseMalignant neoplasm of right renal pelvis 7 Rogelio Mora. [address], [place], [place], [address] , [place]. [phone] Referring Provider: Morgan Mercado [address], [place], [place], [address]. tel:[phone] OFFICE/OUTPA TIENT VISIT, [facility], [place], [address], [place], [place], [address], [place] tel:[phone] [facility] liver lesion1 (chief complaint)ba ck pain1 (chief complaint)HT N (chief complaint)sk in1 (chief complaint) Liver diseaseEssential (primary) hypertensionNevus , non-neoplasticChr onic pain syndrome 7 Rogelio Mora. [address], [place], [place], [address] , [place]. tel:[phone] Referring Provider: Morgan Mercado, [address], [place], [place], [address]. tel:[phone] OFFICE/OUTPA TIENT VISIT, [facility], [place], [address], [place], [place], [address], [place] tel:[phone] [facility] sick (chief complaint)DM (chief complaint)ba ck pain1 (chief complaint)HT N (chief complaint) Acute bronchitis, unspecifiedType 2 diabetes mellitus without complicationsChro gallo pain syndromeEssential (primary) hypertension 7 Rogelio Mora. [address], [place], [place], [address] , [place]. tel:[phone] Referring Provider: Morgan Mercado [address], [place], [place], [address]. tel:[phone] OFFICE/OUTPA TIENT VISIT, [facility], [place], [address], [place], [place], [address], [place] tel:[phone] [facility] back pain1 (chief complaint)Af ib (chief complaint)li reji lesion1 (chief complaint)re nal CA (chief complaint) Liver disease, unspecifiedChroni c pain syndromeParoxysma l atrial fibrillation 7 Rogelio Mora. [address], [place], [place], [address] , [place]. tel:[phone] OFFICE/OUTPA TIENT VISIT, [facility], [place], [address], [place], [place], [address], [place] tel:[phone] [facility] HLP (chief complaint)DM (chief complaint)re nal1 (chief complaint)ba ck pain1 (chief complaint) Type 2 diabetes mellitus with hyperglycemiaProt einuriaHyperlipid emiaChronic pain syndrome 7 Rogelio [address], [place], [place], [address] , [place]. tel:[phone] OFFICE/OUTPA TIENT VISIT, [facility], [place], [address], [place], [place], [address], [place] tel:[phone] [facility] COPD1 (chief complaint)dM 1 (chief complaint)HL P (chief complaint)ba ck pain1 (chief complaint) COPDChronic pain syndromeMixed hyperlipidemiaTyp e 2 diabetes mellitus without complications Rogelio Frias [address], [place], [place], [address] , [place]. tel:[phone] Referring Provider: Shanda Ham [address], [place], [place], [address]. tel:[phone] OFFICE/OUTPA TIENT VISIT, [facility], [place], [address] [place], [address], tel:[phone] [facility] back pain1 (chief complaint)to bacco (chief complaint)re nal CA (chief complaint) Chronic pain syndromeTobacco use 7 Rogelio Frias [address], [place], [place], [address] , [place]. [phone] Referring Provider: Shanda Ham [address], [place], [place], [address]. tel:[phone] OFFICE/OUTPA TIENT VISIT, [facility], [place], [address] [place], [address], [place] tel:[phone] [facility] COPD1 (chief complaint)ba ck apin1 (chief complaint)DM (chief complaint) Chronic pain syndromeType 2 diabetes mellitus without complicationsCOPD Tobacco use 7 Mercado Morgan. [address], [place], [place], [address] , [place]. tel:[phone] Referring Provider: Shanda Ham [address], [place], [place], [address]. tel:[phone] OFFICE/OUTPA TIENT VISIT, [facility], [place], [address], [place], [place], [address], [place] tel:[phone] [facility] sick1 (chief complaint)DM (chief complaint)HL P (chief complaint)re nal (chief complaint) Type 2 diabetes mellitus without complicationsMixe d hyperlipidemiaAcu te upper respiratory infection, unspecifiedChroni c pain syndrome 6 Rogelio Mora. [address], [place], [place], [address] , [place]. tel:[phone] Referring Provider: Shanda Ham [address], [place], [place], [address]. tel:[phone] OFFICE/OUTPA TIENT VISIT, [facility], [place], [address], [place], [place], [address], [place] tel:[phone] [facility] HLP (chief complaint)ba ck pain1 (chief complaint)CO Pd1 (chief complaint)go ut1 (chief complaint) Mixed hyperlipidemiaCOP DGoutType 2 diabetes mellitus without complications 6 Rogelio Frias [address], [place], [place], [address] , [place]. tel:[phone] Referring Provider: Shanda Ham [address], [place], [place], [address]. tel:[phone] OFFICE/OUTPA TIENT VISIT, [facility], [place], [address], [place], [place], [address], [place] tel:[phone] [facility] renal neoplasm (chief complaint)re nal mass1 (chief complaint)fa tt liver (chief complaint) Liver diseaseMalignant neoplasm of right renal pelvisFatty liver 6 Rogelio Frias [address], [place], [place], [address] , [place]. tel:[phone] Referring Provider: Shanda Ham [address], [place], [place], [address]. tel:[phone] OFFICE/OUTPA TIENT VISIT, [facility], [place], [address], [place], [place], [address], [place] tel:[phone] [facility] back pain1 (chief complaint)CO PD (chief complaint)li reji lesion1 (chief complaint)vi tati D (chief complaint) COPDLiver diseaseChronic pain syndromeVitamin D deficiency, unspecified 0 6 Rogelio Mora. [address], [place], [place], [address] , [place]. [phone] Referring Provider: Shanda Ham [address], [place], [place], [address]. tel:[phone] OFFICE/OUTPA TIENT VISIT, [facility], [place], [address], [place], [place], [address], [place] tel:[phone] [facility] chronic pain (chief complaint)ab d pain1 (chief complaint)li reij lesion1 (chief complaint) Liver diseaseChronic pain syndrome 6 Rogelio Mora. [address], [place], [place], [address] , [place]. [phone] Referring Provider: Shanda Ham [facility] A, [place], [place], [address]. tel:[phone] OFFICE/OUTPA TIENT VISIT, [facility], [place], [address], [place], [place], [address], [place] tel:[phone] [facility] DM (chief complaint)lo w renal (chief complaint)HL P1 (chief complaint)ab d pain1 (chief complaint) Type 2 diabetes mellitus without complicationsMixe d hyperlipidemiaAbd ominal painChronic pain syndrome 6 Rogelio Mora. [address], [place], [place], [address] , [place]. tel:[phone] Referring Provider: Shanda Ham [address], [place], [place], [address]. tel:[phone] OFFICE/OUTPA TIENT VISIT, [facility], [place], [address], [place], [place], [address], [place] tel:[phone] [facility] HLP (chief complaint)ba ck pain1 (chief complaint)DM 1 (chief complaint) Type 2 diabetes mellitus with diabetic nephropathyMixed hyperlipidemiaChr onic pain syndrome 6 Rogelio Mora. [address], [place], [place], [address] , [place]. [phone] Referring Provider: Shanda Ham [facility], [place], [place], [address]. tel:[phone] OFFICE/OUTPA TIENT VISIT, [facility], [place], [address] [facility] [place], [address], [place] tel:[phone] [facility] back pain1 (chief complaint)af ib (chief complaint)re nal CA (chief complaint)HT N (chief complaint) Chronic atrial fibrillationEssen tial (primary) hypertensionChron ic pain syndromeMalignant neoplasm of left renal pelvis 6 Rogelio Mora. [address], [facility] [address], [place], [place], [address] , [place]. [phone] Referring Provider: Shanda Ham [facility], [place], [place], [address]. tel:[phone] OFFICE/OUTPA TIENT VISIT, [facility], [place], [address], [place], [place], [address], [place] tel:[phone] [facility] DM (chief complaint)lo w renal (chief complaint)HL P (chief complaint)af ib1 (chief complaint)CO PD (chief complaint) Chronic atrial fibrillationMixed hyperlipidemiaTyp e 2 diabetes mellitus without complicationsChro gallo pain syndrome 6 Rogelio Mora. [address], [place], [place], [address] , [place]. [phone] Referring Provider: Shanda Ham [facility] A, [place], [place], [address]. tel:[phone] OFFICE/OUTPA TIENT VISIT, [facility], [place], [address], [place], [place], [address], [place] tel:[phone] [facility] LBP (chief complaint)HT N (chief complaint)HL P (chief complaint)DM (chief complaint) Essential (primary) hypertensionChron ic pain syndromeMixed hyperlipidemiaTyp e 2 diabetes mellitus with diabetic nephropathy 6 Rogelio Mora. [address], [place], [place], [address] , [place]. [phone] Referring Provider: Shanda Ham [facility] [address], [place], [place], [address]. tel:[phone] PREV VISIT, [facility], AGE 40-64 [facility], [address], [place], [place], [address], [place] tel:[phone] [facility] physical (chief complaint) Encntr for general adult medical exam w/o abnormal findings 6 Rogelio Mora. [address], [facility] A, [place], [place], [address] , [place]. tel:[phone] Referring Provider: Shanda Ham [facility] [address], [place], [place], [address]. tel:[phone] OFFICE/OUTPA TIENT VISIT, [facility], [place], [address] [place], [address], [place] tel:[phone] [facility] reanl disease (chief complaint)he maturia (chief complaint)DM (chief complaint)HL P (chief complaint) Type 2 diabetes mellitus with diabetic nephropathyMixed hyperlipidemiaChr onic pain syndrome 6 Rogelio Mora. [address], [place], [place], [address] , [place]. tel:[phone] Referring Provider: Shanda Ham [facility] [address], [place], [place], [address]. tel:[phone] OFFICE/OUTPA TIENT VISIT, [facility], [place], [address], [place], [place], [address], [place] tel:[phone] [facility] sore throat1 (chief complaint)HT N (chief complaint) Essential (primary) hypertensionAcute bronchitis, unspecified 6 Rogelio Mora. [address], [place], [place], [address] , [place]. tel:[phone] Referring Provider: Morgan Mercado, [address], [place], [place], [address]. tel:[phone] OFFICE/OUTPA TIENT VISIT, [facility], [place], [address], [place], [place], [address], [place] tel:[phone] [facility] back pain1 (chief complaint)HL P1 (chief complaint)Go ut (chief complaint)HT N1 (chief complaint) Chronic pain syndromeEssential (primary) hypertensionGoutM ixed hyperlipidemia 6 Rogelio Mora. [address], [place], [place], [address] , [place]. tel:[phone] Referring Provider: Shanda Ham [address], [place], [place], [address]. tel:[phone] OFFICE/OUTPA TIENT VISIT, [facility], [place], [address], [place], [place], [address], [place] tel:[phone] [facility] back pain1 (chief complaint)Af ib1 (chief complaint) Other spondylosis, lumbar regionChronic atrial fibrillation 5 Rogelio Mora. [address], [place], [place], [address] , [place]. tel:[phone] Referring Provider: Shanda Ham [address], [place], [place], [address]. tel:[phone] OFFICE/OUTPA TIENT VISIT, [facility], [place], [address], [place], [place], [address], [place] tel:[phone] [facility] COPD1 (chief complaint)ba ck pain1 (chief complaint)DM 1 (chief complaint)HL P1 (chief complaint) Mixed hyperlipidemiaTyp e 2 diabetes mellitus with diabetic nephropathyOther spondylosis, lumbar regionOther emphysema 5 Rogelio Mora. [address], [place], [place], [address] , [place]. tel:[phone] Referring Provider: Morgan Mercado, [address], [place], [place], [address]. tel:[phone] OFFICE/OUTPA TIENT VISIT, [facility], [place], [address], [place], [place], [address], [place] tel:[phone] [facility] HTN1 (chief complaint)fredrick mbago1 (chief complaint)CO PD1 (chief complaint)HL P1 (chief complaint)DM 1 (chief complaint) Essential (primary) hypertensionMixed hyperlipidemiaOth er spondylosis, lumbar regionType 2 diabetes mellitus w/o complication 5 Rogelio Mora. [address], [place], [place], [address] , [place]. tel:[phone] Referring Provider: Shanda Ham [address], [place], [place], [address]. tel:[phone] OFFICE/OUTPA TIENT VISIT, [facility], [place], [address], [place], [place], [address], [place] tel:[phone] [facility] Renal CA (chief complaint)CO PD (chief complaint)DM 1 (chief complaint)ba ck pain1 (chief complaint) Other emphysemaMalignan t neoplasm of left renal pelvisOther spondylosis, lumbar regionType 2 diabetes mellitus w/ diabetic chronic kidney diseaseChronic kidney disease, stage 3 (moderate) 5 Rogelio Mora. [address], [place], [place], [address] , [place]. tel:[phone] Referring Provider: Shanda Ham [address], [place], [place], [address]. tel:[phone] OFFICE/OUTPA TIENT VISIT, [facility], [place], [address], [place], [place], [address], [place] tel:[phone] [facility] Proteinuria (chief complaint)HL P (chief complaint)DM (chief complaint) Dietary surveillance and counselingBrittle diabetesProteinur iaOther and unspecified hyperlipidemiaLum bago 5 Rogelio Mora. [address], [place], [place], [address] , [place]. [phone] Referring Provider: Shanda Ham [address], [place], [place], [address]. tel:[phone] OFFICE/OUTPA TIENT VISIT, [facility], [place], [address], [place], [place], [address], [place] tel:[phone] [facility] HTN (chief complaint)dM (chief complaint)re nal disease (chief complaint)re anl CA (chief complaint) Dietary surveillance and counselingLumbago Unspecified essential hypertensionProte inuriaBrittle diabetes 5 Rogelio Frias [address], [place], [place], [address] , [place]. [phone] Referring Provider: Shanda Ham [address], [place], [place], [address]. tel:[phone] OFFICE/OUTPA TIENT VISIT, [facility], [place], [address], [place], [place], [address], [place] tel:[phone] [facility] back pain (chief complaint)CO PD (chief complaint)HT N (chief complaint) LumbagoUnspecifie d essential hypertensionCOPDD ietary surveillance and counseling 5 Rogelio Frias [address], [place], [place], [address] , [place]. tel:[phone] Referring Provider: Shanda Ham [address], [place], [place], [address]. tel:[phone] OFFICE/OUTPA TIENT VISIT, [facility], [place], [address], [place], [place], [address], [place] tel:[phone] [facility] COPD (chief complaint)ba ck pain (chief complaint)DM (chief complaint) Dietary surveillance and counselingBrittle diabetesUnspecifi ed essential hypertensionLumba goCOPD 5 Rogelio Mora. [address], [place], [place], [address] , [place]. tel:[phone] Referring Provider: Shanda Ham [address], [place], [place], [address]. tel:[phone] OFFICE/OUTPA TIENT VISIT, EST [facility], [address], [place], [place], [address], [place] tel:[phone] [facility] Medicine back pain (chief complaint)SO B (chief complaint)af ib (chief complaint) Dietary surveillance and counselingLumbago Respiratory abnormality, unspecifiedAtrial FibrillationMalig nant Neoplasm, Kidney 5 Rogelio Frias [address], [place], [place], [address] , [place]. tel:[phone] Referring Provider: Shanda Ham [address], [place], [place], [address]. tel:[phone] OFFICE/OUTPA TIENT VISIT, EST [facility], [address], [place], [place], [address], [place] tel:[phone] [facility] back pain (chief complaint)HT N (chief complaint)HL P (chief complaint) Dietary surveillance and counselingAtrial FibrillationHyper tension, UnspecifiedMalign ant Neoplasm, KidneyLumbago 5 Rogelio Frias [address], [place], [place], [address] , [place]. tel:[phone] Referring Provider: Shanda Ham [address], [place], [place], [address]. tel:[phone] PREV VISIT, EST, AGE 40-64 [facility], [address], [place], [place], [address], [place] tel:[phone] [facility] Medicine Physical (chief complaint) Routine Medical ExamRoutine Medical Exam 5 Mercado Morgan. [address], [place], [place], [address] , [place]. tel:[phone] Referring Provider: Shanda Ham [address], [place], [place], [address]. tel:[phone] OFFICE/OUTPA TIENT VISIT, [facility], [place], [address], [place], [place], [address], [place] [phone] [facility] back pain (chief complaint)re ctal CA (chief complaint)CA D (chief complaint) Dietary surveillance and counselingAtrial FibrillationOpioi d type dependence, unspecified useMalignant Neoplasm, KidneyScreening for malignant neoplasms of the prostate 5 Rogelio Mora. [address], [place], [place], [address] , [place]. [phone] Referring Provider: Shanda Ham [facility] [place], [address]. tel:[phone] OFFICE/OUTPA TIENT VISIT, [facility], [place], [address], [place], [place], [address], [place] tel:[phone] [facility] DM (chief complaint)HL P (chief complaint)CA D (chief complaint)ba ck pain (chief complaint) Dietary surveillance and counselingOther and unspecified hyperlipidemiaDia betes Mellitus, Adult Onset, UncontrolledCAD, [place] VesselLumbago 5 Rogelio Mora. [address], [place], [place], [address] , [place]. [phone] Referring Provider: Shanda Ham [address], [place], [place], [address]. tel:[phone] OFFICE/OUTPA TIENT VISIT, [facility], [place], [address] [place], [address], [place] tel:[phone] [facility] back pain (chief complaint)re nal disease (chief complaint)HL P (chief complaint)DM (chief complaint) Dietary surveillance and counselingOther and unspecified hyperlipidemiaCAD , [place] VesselDiabetes Mellitus, Adult Onset, UncontrolledLumba go 4 Rogelio Mora. [address] [facility] [address], [place], [place], [address] , [place]. tel:[phone] Referring Provider: Morgan Mercado, Shanda [facility], [place], [place], [address]. tel:[phone] OFFICE/OUTPA TIENT VISIT, [facility], [place], [address] [place] [address] [facility] [place], [address], tel:[phone] [facility] DM (chief complaint)ba ck pain (chief complaint)HT N (chief complaint) Dietary surveillance and counselingDiabete s Mellitus, Adult Onset, UncontrolledAtria l FibrillationLumba goHypertension, Unspecified 4 Rogelio Mora. [address], [facility] A, [place], [place], [address] , [place]. tel:[phone] Referring Provider: Shanda Ham [place], [place], [address]. tel:[phone] OFFICE/OUTPA TIENT VISIT, [facility], [place], [address] [place], [address], [place] tel:[phone] [facility] DM (chief complaint)re nal disease (chief complaint)TG (chief complaint)ur ic acid (chief complaint)ba ck pain (chief complaint) Dietary surveillance and counselingDiabete s Mellitus, Adult Onset, UncontrolledOther and unspecified hyperlipidemiaCAD , [place] VesselGout, unspecified 4 Rogelio Mora. [address] [facility] [place] [address] , [place]. tel:[phone] Referring Provider: Shanda Ham [place], [address]. tel:[phone] OFFICE/OUTPA TIENT VISIT, [facility], [place], [address] [place], [address], [place] tel:[phone] [facility] HTN (chief complaint)HL P (chief complaint)go ut (chief complaint)wh eezing (chief complaint) Dietary surveillance and counselingHyperte nsion, UnspecifiedGout, unspecifiedOther and unspecified hyperlipidemiaBro nchitis, Acute 4 Rogelio Mora. [address], [place], [place], [address] , [place]. [phone] Referring Provider: Shanda Ham [address], [place], [place], [address]. tel:[phone] OFFICE/OUTPA TIENT VISIT, [facility], [place], [address] [place], [address], [place] [phone] [facility] back pain (chief complaint)HL P (chief complaint) Dietary surveillance and counselingLumbago Other and unspecified hyperlipidemiaHyp ertension, Unspecified 4 Rogelio Mora. [address], [place], [place], [address] , [place]. [phone] Referring Provider: Shanda Ham [facility] [place], [address]. tel:[phone] OFFICE/OUTPA TIENT VISIT, [facility], [place], [address] [place], [address], [place] tel:[phone] [facility] DM (chief complaint)ki dney disease (chief complaint)TG (chief complaint)ur ic acid (chief complaint) Dietary surveillance and counselingChronic kidney disease, unspecifiedOther and unspecified hyperlipidemiaMal ignant Neoplasm, KidneyDiabetes Mellitus, Adult Onset, Uncontrolled 4 Rogelio Frias [address], [place], [place], [address] , [place]. tel:[phone] Referring Provider: Shanda Ham [facility] [place], [address]. tel:[phone] OFFICE/OUTPA TIENT VISIT, [facility], [place], [address], [place], [place], [address], [place] tel:[phone] [facility] HTN (chief complaint)HL P (chief complaint)Go ut (chief complaint)ba ck pain (chief complaint) Dietary surveillance and counselingGout, unspecifiedOther and unspecified hyperlipidemiaLum bagoMalignant Neoplasm, Kidney 0 4 Rogelio Mora. [address], [place], [place], [address] , [place]. [phone] Referring Provider: Shanda Ham [address], [place], [place], [address]. tel:[phone] OFFICE/OUTPA TIENT VISIT, [facility], [place], [address], [place], [place], [address], [place] [phone] [facility] back pain (chief complaint)re nal carcinoma (chief complaint)an xiety (chief complaint)HT N (chief complaint) Dietary surveillance and counselingLumbago Hypertension, UnspecifiedMalign ant Neoplasm, KidneyGeneralized anxiety disorder 4 Rogelio Frias [address], [place], [place], [address] , [place]. [phone] Referring Provider: Shanda Ham [address], [place], [place], [address]. tel:[phone] OFFICE/OUTPA TIENT VISIT, [facility], [place], [address] [place], [address], [place] tel:[phone] [facility] back pain (chief complaint)re nal carcinoma (chief complaint)Af ib (chief complaint) Dietary surveillance and counselingCAD, [place] VesselAtrial FibrillationLumba goMalignant Neoplasm, Kidney 4 Rogelio Frias [address], [place], [place], [address] , [place]. [phone] Referring Provider: Shanda Ham [address], [place], [place], [address]. tel:[phone] OFFICE/OUTPA TIENT VISIT, [facility], [place], [address], [place], [place], [address], [place] [phone] [facility] renal carcinoma (chief complaint)ba ck pain (chief complaint)an xiety (chief complaint) Dietary surveillance and counselingMaligna nt Neoplasm, KidneyLumbagoGene ralized anxiety disorder 4 Rogelio Mora. [address], [place], [place], [address] , [place]. tel:[phone] Referring Provider: Shanda Ham [address], [place], [place], [address]. tel:[phone] OFFICE/OUTPA TIENT VISIT, EST [facility], [address], [place], [place], [address], [place] tel:[phone] [facility] renal CA (chief complaint)Re nal failure (chief complaint)TG (chief complaint)ba ck pain (chief complaint) Dietary surveillance and counselingRenal Failure, AcuteMalignant Neoplasm, KidneyOther and unspecified hyperlipidemia 4 Rogelio Mora. [address], [place], [place], [address] , [place]. [phone] Referring Provider: Shanda Ham [address], [place], [place], [address]. tel:[phone] PREV VISIT, EST, AGE 40-64 [facility], [address], [place], [place], [address], [place] tel:[phone] [facility] Physical (chief complaint) Dietary surveillance and counselingRoutine Medical ExamRoutine Medical Exam 4 Rogelio Mora. [address], [place], [place], [address] , [place]. tel:[phone] Referring Provider: Shanda Ham [address], [place], [place], [address]. tel:[phone] OFFICE/OUTPA TIENT VISIT, EST [facility], [address], [place], [place], [address], [place] tel:[phone] [facility] throat pain (chief complaint)co ugh (chief complaint) Dietary surveillance and counselingThroat pain 4 Rogelio Mora. [address], [place], [place], [address] , [place]. [phone] Referring Provider: Shanda Ham [address], [place], [place], [address]. tel:[phone] OFFICE/OUTPA TIENT VISIT, [facility], [place], [address], [place], [place], [address], [place] tel:[phone] [facility] back pain (chief complaint)an xiety (chief complaint)Go ut (chief complaint)HT N (chief complaint) Dietary surveillance and counselingHyperte nsion, UnspecifiedLumbag oAtrial Fibrillation Feb-2 3 Rogelio Mora. [address], [place], [place], [address] , [place]. tel:[phone] Referring Provider: Shanda Ham [address], [place], [place], [address]. tel:[phone] OFFICE/OUTPA TIENT VISIT, [facility], [place], [address], [place], [place], [address], [place] tel:[phone] [facility] back pain (chief complaint)an xiety (chief complaint)re nal CA (chief complaint) Dietary surveillance and counselingLumbago Generalized anxiety disorderMalignant Neoplasm, Kidney Dec- 3 Rogelio Mora. [address], [place], [place], [address] , [place]. tel:[phone] Referring Provider: Shanda Ham [address], [place], [place], [address]. tel:[phone] OFFICE/OUTPA TIENT VISIT, [facility], [place], [address], [place], [place], [address], [place] tel:[phone] [facility] proteinuria (chief complaint)me tabolic (chief complaint)HL P (chief complaint)ba ck pain (chief complaint)go ut (chief complaint) Dietary surveillance and counselingGout, unspecifiedOther and unspecified hyperlipidemiaPro teinuriaRenal Failure, Acute Sep-3 0 3 Rogelio Mora. [address], [place], [place], [address] , [place]. tel:[phone] Referring Provider: Shanda Ham [address], [place], [place], [address]. tel:[phone] OFFICE/OUTPA TIENT VISIT, [facility], [place], [address], [place], [place], [address], [place] tel:[phone] [facility] back pain (chief complaint)go ut (chief complaint)an xiety (chief complaint) Dietary surveillance and counselingAtrial FibrillationLumba goGout, unspecifiedMetabo lic Syndrome 3 Rogelio Mora. [address], [place], [place], [address] , [place]. [phone] Referring Provider: Shanda Ham [address], [place], [place], [address]. tel:[phone] OFFICE/OUTPA TIENT VISIT, [facility], [place], [address], [place], [place], [address], [place] tel:[phone] [facility] back pain (chief complaint)se gavin (chief complaint)Go ut (chief complaint) Dietary surveillance and counselingLumbago Generalized anxiety disorderGout, unspecified 3 Rogelio Mora. [address], [place], [place], [address] , [place]. [phone] Referring Provider: Shanda Ham [address], [place], [place], [address]. tel:[phone] OFFICE/OUTPA TIENT VISIT, [facility], [place], [address], [place], [place], [address], [place] tel:[phone] [facility] back pain (chief complaint)Go ut (chief complaint)an xiety (chief complaint)ab dominal bulge (chief complaint) Dietary surveillance and counselingLumbago Incisional hernia without mention of obstruction or gangreneGeneraliz ed anxiety disorderGout, unspecified 3 Rogelio Mora. [address], [place], [place], [address] , [place]. [phone] Referring Provider: Morgan Mercado, [address], [place], [place], [address]. tel:[phone] OFFICE/OUTPA TIENT VISIT, [facility], [place], [address], [place], [place], [address], [place] tel:[phone] [facility] multiple polyps (chief complaint)ba ck pain (chief complaint)Go ut (chief complaint)an xiety (chief complaint) Dietary surveillance and counselingLumbago Gout, unspecifiedAnal and rectal polyp 3 Rogelio Mora. [address], [place], [place], [address] , [place]. tel:[phone] Referring Provider: Shanda Ham [facility] A, [place], [place], [address]. tel:[phone] OFFICE/OUTPA TIENT VISIT, [facility], [place], [address], [place], [place], [address], [place] tel:[phone] [facility] back pain (chief complaint)re nal CA (chief complaint) Dietary surveillance and counselingMaligna nt Neoplasm, KidneyLumbagoGene ralized anxiety disorder 3 Rogelio Mora. [address], [place], [place], [address] , [place]. tel:[phone] Referring Provider: Shanda Ham [address], [place], [place], [address]. tel:[phone] OFFICE/OUTPA TIENT VISIT, [facility], [place], [address], [place], [place], [address], [place] tel:[phone] [facility] back pain (chief complaint)HT N (chief complaint)HL P (chief complaint) Gout, unspecifiedHypert ension, UnspecifiedOther and unspecified hyperlipidemiaLum bago 3 Rogelio Mora. [address], [place], [place], [address] , [place]. tel:[phone] Referring Provider: Shanda Ham [address], [place], [place], [address]. tel:[phone] OFFICE/OUTPA TIENT VISIT, EST [facility], [address], [place], [place], [address], [place] tel:[phone] [facility] back pain (chief complaint)an xiety (chief complaint)go ut (chief complaint) Dietary surveillance and counselingLumbago Gout, unspecifiedGenera lized anxiety disorderHypertens ion, Unspecified May-0 3 Rogelio Mora. [address], [place], [place], [address] , [place]. tel:[phone] Referring Provider: Morgan Mercado, [address], [place], [place], [address]. tel:[phone] OFFICE/OUTPA TIENT VISIT, [facility], [place], [address], [place], [place], [address], [place] tel:[phone] [facility] gout (chief complaint)le ft upper back pain (chief complaint) Dietary surveillance and counselingGout, unspecifiedChest Pain, Unspecified Fe-2 3 Rogelio Mora. [address], [place], [place], [address] , [place]. tel:[phone] Referring Provider: Shanda Ham [address], [place], [place], [address]. tel:[phone] OFFICE/OUTPA TIENT VISIT, [facility], [place], [address], [place], [place], [address], [place] tel:[phone] [facility] gout (chief complaint)ba ck pain (chief complaint)re nal CA (chief complaint) Dietary surveillance and counselingGout, unspecifiedLumbag oGeneralized anxiety disorder 0 3 Rogelio Mora. [address], [place], [place], [address] , [place]. tel:[phone] Referring Provider: Shanda Ham [address], [place], [place], [address]. tel:[phone] PREV VISIT, EST, AGE 40-64 [facility], [address], [place] [address], [place] tel:[phone] [facility] Physical (chief complaint) Dietary surveillance and counselingRoutine Medical ExamRoutine Medical Exam 3 Rogelio Mora. [address], [place], [place], [address] , [place]. [phone] Referring Provider: Morgan Mercado, Shanda [address], [place], [place], [address]. tel:[phone] OFFICE/OUTPA TIENT VISIT, [facility], [place], [address], [place], [place], [address], [place] [phone] [facility] back pain (chief complaint)re nal mass (chief complaint) Dietary surveillance and counselingMaligna nt Neoplasm, KidneyLumbago 2 Rogelio Mora. [address], [place], [place], [address] , [place]. [phone] Referring Provider: Shanda Ham [address], [place], [place], [address]. tel:[phone] OFFICE/OUTPA TIENT VISIT, [facility], [place], [address], [place], [place], [address], [place] tel:[phone] [facility] back pain (chief complaint)HL P (chief complaint) Dietary surveillance and counselingHyperte nsion, UnspecifiedLumbag oOther and unspecified hyperlipidemiaUns pecified chronic liver disease without mention of alcohol 2 Rogelio Mora. [address], [place], [place], [address] , [place]. [phone] Referring Provider: Shanda Ham [address], [place], [place], [address]. tel:[phone] OFFICE/OUTPA TIENT VISIT, [facility], [place], [address], [place], [place], [address], [place] tel:[phone] [facility] back pain (chief complaint)HT N (chief complaint)Af ib (chief complaint) Dietary surveillance and counselingOther and unspecified hyperlipidemiaAtr ial FibrillationMetab olic SyndromeCAD, [place]essel 2 Rogelio Mora. [address], [facility] [address], [place], [place], [address] , [place]. tel:[phone] Referring Provider: Morgan Mercado, Shanda [address], [place], [place], [address]. tel:[phone] Family History Family Member Type Diagnosis Age At Onset Mother Problem (finding) Alzheimer's Disease Father Problem (finding) Diabetes mellitus Father Problem (finding) Coronary artery disease Brother Problem (finding) Cancer, brain Payers Payer name Insurance type Covered republican ID Authoriza tion(s) [employer] [place] WPS [id number] Social History Type Description Quantity Date Captured Comments Alcohol Use Details No Caffeine Use Details Unknown Tobacco Use Status Heavy cigarette smok er (20-39 cigs/day) Smoking Status Heavy tobacco smoker Sex Male Vital Signs Date / Time: Height Weight BMI Pulse Rate Blood Pressure Temperature Respiratory Rate Body Surface Area Head Circumference BMI percentile Pulse Ox Inhaled Ox 9:30 AM 72.00 in 221.40 lbs 30.0 3 kg/m eter (2) 70 /min 120/70 mm[Hg] 97.6 F 16 /min Chief Complaint And Reason For Visit From encounter dated '04/17/2024 09:15'. pain (chief complaint). Description: Pt has chronic low back pain pt denies any worsening pain Pt denies any loss of bladder control. Pt has mild neuropathy symptoms. Pt takes percocet and soma. Pt failed neurontin. Pt denies any saddle area paresthesia anxiety1 (chief complaint). Description: Pt has chronic anxiety and depression Pt takes celexa and xanax PRN and doing ok Pt denies any suicidal or homicidal thought Pt denies any crying spells Plan Of Treatment Date Type Action Status Goal Pneumococcal vaccine. Due on due Goal FOBT. Due on due Goal PSA. Due on due Goal Influenza vaccine. Due on due Goal Td vaccine. Due on due Goal Cognitive assessment. Due on due Goal Depression screening. Due on due Goal Zoster vaccine. Due on due Goal Sigmoidoscopy. Due on due Goal Sigmoidoscopy. Due on due Goal Zoster vaccine. Due on due Goal Depression screening. Due on due Goal Cognitive assessment. Due on due Goal Pneumococcal vaccine. Due on due Goal FOBT. Due on due Goal PSA. Due on due Goal Influenza vaccine. Due on due Goal Td vaccine. Due on due Goal Cognitive assessment. Due on due Goal Depression screening. Due on due Goal Zoster vaccine. Due on due Goal Sigmoidoscopy. Due on due Goal Pneumococcal vaccine. Due on due Goal FOBT. Due on due Goal PSA. Due on due Goal Influenza vaccine. Due on due Goal Td vaccine. Due on due Goal Td vaccine. Due on due Goal Influenza vaccine. Due on due Goal PSA. Due on due Goal FOBT. Due on due Goal Pneumococcal vaccine. Due on due Goal Cognitive assessment. Due on due Goal Depression screening. Due on due Goal Zoster vaccine. Due on due Goal Sigmoidoscopy. Due on due Goal Td vaccine. Due on due Goal Influenza vaccine. Due on due Goal PSA. Due on due Goal FOBT. Due on due Goal Pneumococcal vaccine. Due on due Goal Cognitive assessment. Due on due Goal Depression screening. Due on due Goal Zoster vaccine. Due on due Goal Sigmoidoscopy. Due on due Goal Td vaccine. Due on due Goal Influenza vaccine. Due on due Goal PSA. Due on due Goal FOBT. Due on due Goal Pneumococcal vaccine. Due on due Goal Cognitive assessment. Due on due Goal Depression screening. Due on due Goal Zoster vaccine. Due on due Goal Sigmoidoscopy. Due on due Goal Td vaccine. Due on due Goal Influenza vaccine. Due on due Goal PSA. Due on due Goal FOBT. Due on due Goal Pneumococcal vaccine. Due on due Goal Cognitive assessment. Due on due Goal Depression screening. Due on due Goal Zoster vaccine. Due on due Goal Sigmoidoscopy. Due on due Goal Sigmoidoscopy. Due on due Goal Zoster vaccine. Due on due Goal Depression screening. Due on due Goal Cognitive assessment. Due on due Goal Td vaccine. Due on due Goal Influenza vaccine. Due on due Goal PSA. Due on due Goal FOBT. Due on due Goal Pneumococcal vaccine. Due on due Goal Influenza vaccine. Due on due Goal PSA. Due on due Goal FOBT. Due on due Goal Pneumococcal vaccine. Due on due Goal Cognitive assessment. Due on due Goal Depression screening. Due on due Goal Zoster vaccine. Due on due Goal Sigmoidoscopy. Due on due Goal Td vaccine. Due on due Goal Sigmoidoscopy. Due on due Goal Zoster vaccine. Due on due Goal Depression screening. Due on due Goal Cognitive assessment. Due on due Goal Td vaccine. Due on due Goal Influenza vaccine. Due on [place] due Goal PSA. Due on due Goal FOBT. Due on due Goal Pneumococcal vaccine. Due on due Goal Cognitive assessment. Due on due Goal Depression screening. Due on due Goal Zoster vaccine. Due on due Goal Sigmoidoscopy. Due on due Goal Td vaccine. Due on due Goal Influenza vaccine. Due on due Goal PSA. Due on due Goal FOBT. Due on due Goal Pneumococcal vaccine. Due on due Goal Pneumococcal vaccine. Due on due Goal FOBT. Due on due Goal PSA. Due on due Goal Influenza vaccine. Due on due Goal Td vaccine. Due on due Goal Cognitive assessment. Due on due Goal Depression screening. Due on due Goal Zoster vaccine. Due on due Goal Sigmoidoscopy. Due on due Goal Td vaccine. Due on due Goal Influenza vaccine. Due on due Goal PSA. Due on due Goal FOBT. Due on due Goal Pneumococcal vaccine. Due on due Goal Cognitive assessment. Due on due Goal Depression screening. Due on due Goal Zoster vaccine. Due on due Goal Sigmoidoscopy. Due on due Goal Pneumococcal vaccine. Due on due Goal FOBT. Due on due Goal PSA. Due on due Goal Influenza vaccine. Due on due Goal Td vaccine. Due on due Goal Cognitive assessment. Due on due Goal Depression screening. Due on due Goal Zoster vaccine. Due on due Goal Sigmoidoscopy. Due on due Goal Td vaccine. Due on due Goal Influenza vaccine. Due on due Goal PSA. Due on due Goal FOBT. Due on due Goal Pneumococcal vaccine. Due on due Goal Cognitive assessment. Due on due Goal Depression screening. Due on due Goal Zoster vaccine. Due on due Goal Sigmoidoscopy. Due on due Goal Pneumococcal vaccine. Due on due Goal FOBT. Due on due Goal PSA. Due on due Goal Influenza vaccine. Due on due Goal Td vaccine. Due on due Goal Cognitive assessment. Due on due Goal Depression screening. Due on due Goal Zoster vaccine. Due on due Goal Sigmoidoscopy. Due on due Goal PSA. Due on due Goal Influenza vaccine. Due on due Goal Td vaccine. Due on due Goal Cognitive assessment. Due on due Goal Depression screening. Due on due Goal Zoster vaccine. Due on due Goal Sigmoidoscopy. Due on due Goal Pneumococcal vaccine. Due on due Goal FOBT. Due on due Goal Sigmoidoscopy. Due on due Goal Zoster vaccine. Due on due Goal Depression screening. Due on due Goal Cognitive assessment. Due on due Goal Pneumococcal vaccine. Due on due Goal FOBT. Due on due Goal PSA. Due on due Goal Influenza vaccine. Due on Oc due Goal Td vaccine. Due on due Goal Td vaccine. Due on due Goal Influenza vaccine. Due on Se due Goal PSA. Due on due Goal FOBT. Due on due Goal Pneumococcal vaccine. Due on due Goal Sigmoidoscopy. Due on due Goal Zoster vaccine. Due on due Goal Depression screening. Due on due Goal Cognitive assessment. Due on due Goal Pneumococcal vaccine. Due on due Goal FOBT. Due on due Goal PSA. Due on due Goal Influenza vaccine. Due on due Goal Td vaccine. Due on due Goal Sigmoidoscopy. Due on due Goal Zoster vaccine. Due on due Goal Depression screening. Due on due Goal Cognitive assessment. Due on due Goal Td vaccine. Due on due Goal Influenza vaccine. Due on due Goal PSA. Due on due Goal FOBT. Due on due Goal Pneumococcal vaccine. Due on due Goal Sigmoidoscopy. Due on due Goal Zoster vaccine. Due on due Goal Depression screening. Due on due Goal Cognitive assessment. Due on due Goal Cognitive assessment. Due on due Goal Depression screening. Due on due Goal Zoster vaccine. Due on due Goal Sigmoidoscopy. Due on due Goal Td vaccine. Due on due Goal Influenza vaccine. Due on due Goal PSA. Due on due Goal FOBT. Due on due Goal Pneumococcal vaccine. Due on due Goal Sigmoidoscopy. Due on due Goal Zoster vaccine. Due on due Goal Depression screening. Due on due Goal Cognitive assessment. Due on due Goal Td vaccine. Due on due Goal Influenza vaccine. Due on due Goal PSA. Due on due Goal FOBT. Due on due Goal Pneumococcal vaccine. Due on due Goal Pneumococcal vaccine. Due on due Goal FOBT. Due on due Goal PSA. Due on due Goal Influenza vaccine. Due on due Goal Td vaccine. Due on due Goal Sigmoidoscopy. Due on due Goal Zoster vaccine. Due on due Goal Depression screening. Due on due Goal Cognitive assessment. Due on due Goal Td vaccine. Due on due Goal Influenza vaccine. Due on due Goal PSA. Due on due Goal FOBT. Due on due Goal Pneumococcal vaccine. Due on due Goal Sigmoidoscopy. Due on due Goal Zoster vaccine. Due on due Goal Depression screening. Due on due Goal Cognitive assessment. Due on due Goal Pneumococcal vaccine. Due on due Goal FOBT. Due on due Goal PSA. Due on due Goal Influenza vaccine. Due on due Goal Sigmoidoscopy. Due on due Goal Zoster vaccine. Due on due Goal Depression screening. Due on due Goal Cognitive assessment. Due on due Goal Td vaccine. Due on due Goal Influenza vaccine. Due on due Goal PSA. Due on due Goal FOBT. Due on due Goal Pneumococcal vaccine. Due on due Goal Sigmoidoscopy. Due on due Goal Zoster vaccine. Due on due Goal Depression screening. Due on due Goal Cognitive assessment. Due on due Goal Td vaccine. Due on due Goal Td vaccine. Due on due Goal Cognitive assessment. Due on due Goal Depression screening. Due on due Goal Zoster vaccine. Due on due Goal Sigmoidoscopy. Due on due Goal Influenza vaccine. Due on due Goal PSA. Due on due Goal FOBT. Due on due Goal Pneumococcal vaccine. Due on due Goal Td vaccine. Due on due Goal Cognitive assessment. Due on due Goal Depression screening. Due on due Goal Zoster vaccine. Due on due Goal Sigmoidoscopy. Due on due Goal Influenza vaccine. Due on due Goal PSA. Due on due Goal FOBT. Due on due Goal Pneumococcal vaccine. Due on due Goal Sigmoidoscopy. Due on due Goal Zoster vaccine. Due on due Goal Depression screening. Due on due Goal Cognitive assessment. Due on due Goal Td vaccine. Due on due Goal Influenza vaccine. Due on due Goal PSA. Due on due Goal FOBT. Due on due Goal Pneumococcal vaccine. Due on due Goal Pneumococcal vaccine. Due on due Goal FOBT. Due on due Goal PSA. Due on due Goal Influenza vaccine. Due on due Goal Sigmoidoscopy. Due on due Goal Zoster vaccine. Due on due Goal Depression screening. Due on due Goal Cognitive assessment. Due on due Goal Td vaccine. Due on due Goal Td vaccine. Due on due Goal Cognitive assessment. Due on due Goal Depression screening. Due on due Goal Zoster vaccine. Due on due Goal Sigmoidoscopy. Due on due Goal Pneumococcal vaccine. Due on due Goal FOBT. Due on due Goal PSA. Due on due Goal Influenza vaccine. Due on Oc due Goal Influenza vaccine. Due on Se due Goal PSA. Due on due Goal FOBT. Due on due Goal Pneumococcal vaccine. Due on due Goal Td vaccine. Due on due Goal Cognitive assessment. Due on due Goal Depression screening. Due on due Goal Zoster vaccine. Due on due Goal Sigmoidoscopy. Due on due Goal Sigmoidoscopy. Due on due Goal Zoster vaccine. Due on due Goal Depression screening. Due on due Goal Cognitive assessment. Due on due Goal Td vaccine. Due on due Goal Influenza vaccine. Due on due Goal PSA. Due on due Goal FOBT. Due on due Goal Pneumococcal vaccine. Due on due Goal Sigmoidoscopy. Due on due Goal Zoster vaccine. Due on due Goal Depression screening. Due on due Goal Cognitive assessment. Due on due Goal Td vaccine. Due on due Goal Influenza vaccine. Due on due Goal PSA. Due on due Goal FOBT. Due on due Goal Pneumococcal vaccine. Due on due Goal Sigmoidoscopy. Due on due Goal Zoster vaccine. Due on due Goal Depression screening. Due on due Goal Cognitive assessment. Due on due Goal Td vaccine. Due on due Goal Influenza vaccine. Due on due Goal PSA. Due on due Goal FOBT. Due on due Goal Pneumococcal vaccine. Due on due Goal Pneumococcal vaccine. Due on due Goal FOBT. Due on due Goal PSA. Due on due Goal Influenza vaccine. Due on due Goal Sigmoidoscopy. Due on due Goal Zoster vaccine. Due on due Goal Depression screening. Due on due Goal Cognitive assessment. Due on due Goal Td vaccine. Due on due Goal Td vaccine. Due on due Goal Cognitive assessment. Due on due Goal Depression screening. Due on due Goal Zoster vaccine. Due on due Goal Sigmoidoscopy. Due on due Goal Pneumococcal vaccine. Due on due Goal FOBT. Due on due Goal PSA. Due on due Goal Influenza vaccine. Due on due Goal Influenza vaccine. Due on Ma due Goal PSA. Due on due Goal FOBT. Due on due Goal Pneumococcal vaccine. Due on due Goal Td vaccine. Due on due Goal Cognitive assessment. Due on due Goal Depression screening. Due on due Goal Zoster vaccine. Due on due Goal Sigmoidoscopy. Due on due Goal Td vaccine. Due on due Goal Cognitive assessment. Due on due Goal Depression screening. Due on due Goal Zoster vaccine. Due on due Goal Sigmoidoscopy. Due on due Goal Influenza vaccine. Due on due Goal PSA. Due on due Goal FOBT. Due on due Goal Pneumococcal vaccine. Due on due Goal Td vaccine. Due on due Goal Cognitive assessment. Due on due Goal Depression screening. Due on due Goal Zoster vaccine. Due on due Goal Sigmoidoscopy. Due on due Goal Influenza vaccine. Due on Mn due Goal PSA. Due on due Goal FOBT. Due on due Goal Pneumococcal vaccine. Due on due Goal Td vaccine. Due on due Goal Cognitive assessment. Due on due Goal Depression screening. Due on due Goal Zoster vaccine. Due on due Goal Sigmoidoscopy. Due on due Goal Influenza vaccine. Due on due Goal PSA. Due on due Goal FOBT. Due on due Goal Pneumococcal vaccine. Due on due Goal Pneumococcal vaccine. Due on due Goal FOBT. Due on due Goal PSA. Due on due Goal Influenza vaccine. Due on due Goal Td vaccine. Due on due Goal Cognitive assessment. Due on due Goal Depression screening. Due on due Goal Zoster vaccine. Due on due Goal Sigmoidoscopy. Due on due Goal Sigmoidoscopy. Due on due Goal Zoster vaccine. Due on due Goal Depression screening. Due on due Goal Cognitive assessment. Due on due Goal Td vaccine. Due on due Goal Pneumococcal vaccine. Due on due Goal FOBT. Due on due Goal PSA. Due on due Goal Influenza vaccine. Due on due Goal Influenza vaccine. Due on due Goal PSA. Due on due Goal FOBT. Due on due Goal Pneumococcal vaccine. Due on due Goal Sigmoidoscopy. Due on due Goal Zoster vaccine. Due on due Goal Depression screening. Due on due Goal Cognitive assessment. Due on due Goal Td vaccine. Due on due Goal PSA. Due on due Goal FOBT. Due on due Goal Pneumococcal vaccine. Due on due Goal Td vaccine. Due on due Goal Cognitive assessment. Due on due Goal Depression screening. Due on due Goal Zoster vaccine. Due on due Goal Sigmoidoscopy. Due on due Goal Influenza vaccine. Due on due Goal Pneumococcal vaccine. Due on due Goal FOBT. Due on due Goal PSA. Due on due Goal Influenza vaccine. Due on due Goal Td vaccine. Due on due Goal Cognitive assessment. Due on due Goal Depression screening. Due on due Goal Zoster vaccine. Due on due Goal Sigmoidoscopy. Due on due Goal Sigmoidoscopy. Due on due Goal Zoster vaccine. Due on due Goal Depression screening. Due on due Goal Cognitive assessment. Due on due Goal Td vaccine. Due on due Goal Pneumococcal vaccine. Due on due Goal FOBT. Due on due Goal PSA. Due on due Goal Influenza vaccine. Due on due Goal Sigmoidoscopy. Due on due Goal Zoster vaccine. Due on due Goal Depression screening. Due on due Goal Cognitive assessment. Due on due Goal Td vaccine. Due on due Goal Pneumococcal vaccine. Due on due Goal FOBT. Due on due Goal PSA. Due on due Goal Influenza vaccine. Due on due Goal PSA. Due on due Goal FOBT. Due on due Goal Pneumococcal vaccine. Due on due Goal Depression screening. Due on due Goal Zoster vaccine. Due on due Goal Sigmoidoscopy. Due on due Goal Influenza vaccine. Due on due Goal Cognitive assessment. Due on due Goal Td vaccine. Due on due Goal Td vaccine. Due on due Goal Cognitive assessment. Due on due Goal Influenza vaccine. Due on due Goal Sigmoidoscopy. Due on due Goal PSA. Due on due Goal FOBT. Due on due Goal Pneumococcal vaccine. Due on due Goal Depression screening. Due on due Goal Zoster vaccine. Due on due Goal Td vaccine. Due on due Goal Cognitive assessment. Due on due Goal Influenza vaccine. Due on due Goal Sigmoidoscopy. Due on due Goal PSA. Due on due Goal FOBT. Due on due Goal Pneumococcal vaccine. Due on due Goal Depression screening. Due on due Goal Zoster vaccine. Due on due Goal Td vaccine. Due on due Goal Cognitive assessment. Due on due Goal Influenza vaccine. Due on due Goal Sigmoidoscopy. Due on due Goal PSA. Due on due Goal FOBT. Due on due Goal Pneumococcal vaccine. Due on due Goal Depression screening. Due on due Goal Zoster vaccine. Due on due Goal Td vaccine. Due on due Goal Cognitive assessment. Due on due Goal Influenza vaccine. Due on due Goal Sigmoidoscopy. Due on due Goal PSA. Due on due Goal FOBT. Due on due Goal Pneumococcal vaccine. Due on due Goal Depression screening. Due on due Goal Zoster vaccine. Due on due Goal Td vaccine. Due on due Goal Cognitive assessment. Due on due Goal Influenza vaccine. Due on due Goal Sigmoidoscopy. Due on due Goal PSA. Due on due Goal FOBT. Due on due Goal Pneumococcal vaccine. Due on due Goal Depression screening. Due on due Goal Zoster vaccine. Due on due Goal Td vaccine. Due on due Goal Cognitive assessment. Due on due Goal Influenza vaccine. Due on due Goal Sigmoidoscopy. Due on due Goal PSA. Due on due Goal FOBT. Due on due Goal Pneumococcal vaccine. Due on due Goal Depression screening. Due on due Goal Zoster vaccine. Due on due Goal Zoster vaccine. Due on due Goal Depression screening. Due on due Goal Pneumococcal vaccine. Due on due Goal FOBT. Due on due Goal PSA. Due on due Goal Sigmoidoscopy. Due on due Goal Influenza vaccine. Due on due Goal Cognitive assessment. Due on due Goal Td vaccine. Due on due Goal Zoster vaccine. Due on due Goal Depression screening. Due on due Goal Pneumococcal vaccine. Due on due Goal FOBT. Due on due Goal PSA. Due on due Goal Sigmoidoscopy. Due on due Goal Influenza vaccine. Due on due Goal Cognitive assessment. Due on due Goal Td vaccine. Due on due Goal Zoster vaccine. Due on due Goal Depression screening. Due on due Goal Pneumococcal vaccine. Due on due Goal FOBT. Due on due Goal PSA. Due on due Goal Sigmoidoscopy. Due on due Goal Influenza vaccine. Due on Oc due Goal Cognitive assessment. Due on due Goal Td vaccine. Due on due Goal Zoster vaccine. Due on due Goal Depression screening. Due on due Goal Pneumococcal vaccine. Due on due Goal FOBT. Due on due Goal PSA. Due on due Goal Sigmoidoscopy. Due on due Goal Influenza vaccine. Due on Oc due Goal Cognitive assessment. Due on due Goal Td vaccine. Due on due Goal Zoster vaccine. Due on due Goal Depression screening. Due on due Goal Pneumococcal vaccine. Due on due Goal FOBT. Due on due Goal PSA. Due on due Goal Sigmoidoscopy. Due on due Goal Influenza vaccine. Due on due Goal Cognitive assessment. Due on due Goal Td vaccine. Due on due Goal Td vaccine. Due on due Goal Cognitive assessment. Due on due Goal Influenza vaccine. Due on due Goal Sigmoidoscopy. Due on due Goal PSA. Due on due Goal FOBT. Due on due Goal Pneumococcal vaccine. Due on due Goal Depression screening. Due on due Goal Zoster vaccine. Due on due Goal Td vaccine. Due on due Goal Cognitive assessment. Due on due Goal Influenza vaccine. Due on due Goal Sigmoidoscopy. Due on due Goal PSA. Due on due Goal FOBT. Due on due Goal Pneumococcal vaccine. Due on due Goal Depression screening. Due on due Goal Zoster vaccine. Due on due Goal Td vaccine. Due on due Goal Cognitive assessment. Due on due Goal Influenza vaccine. Due on due Goal Sigmoidoscopy. Due on due Goal PSA. Due on due Goal FOBT. Due on due Goal Pneumococcal vaccine. Due on due Goal Depression screening. Due on due Goal Zoster vaccine. Due on due Goal Td vaccine. Due on due Goal Cognitive assessment. Due on due Goal Influenza vaccine. Due on due Goal Sigmoidoscopy. Due on due Goal PSA. Due on due Goal FOBT. Due on due Goal Pneumococcal vaccine. Due on due Goal Depression screening. Due on due Goal Zoster vaccine. Due on due Goal Zoster vaccine. Due on due Goal Depression screening. Due on due Goal Pneumococcal vaccine. Due on due Goal FOBT. Due on due Goal PSA. Due on due Goal Sigmoidoscopy. Due on due Goal Influenza vaccine. Due on due Goal Cognitive assessment. Due on due Goal Td vaccine. Due on due Goal Zoster vaccine. Due on due Goal Depression screening. Due on due Goal Pneumococcal vaccine. Due on due Goal FOBT. Due on due Goal PSA. Due on due Goal Sigmoidoscopy. Due on due Goal Influenza vaccine. Due on due Goal Cognitive assessment. Due on due Goal Td vaccine. Due on due Goal Zoster vaccine. Due on due Goal Depression screening. Due on due Goal Pneumococcal vaccine. Due on due Goal FOBT. Due on due Goal PSA. Due on due Goal Sigmoidoscopy. Due on due Goal Influenza vaccine. Due on due Goal Cognitive assessment. Due on due Goal Td vaccine. Due on due Goal Tobacco cessation counseling completed Goal Td vaccine. Due on due Goal Cognitive assessment. Due on due Goal Influenza vaccine. Due on due Goal Sigmoidoscopy. Due on due Goal PSA. Due on due Goal FOBT. Due on due Goal Pneumococcal vaccine. Due on due Goal Depression screening. Due on due Goal Zoster vaccine. Due on due Goal Tobacco cessation counseling completed Goal Zoster vaccine. Due on due Goal Depression screening. Due on due Goal Pneumococcal vaccine. Due on due Goal FOBT. Due on due Goal PSA. Due on due Goal Sigmoidoscopy. Due on due Goal Influenza vaccine. Due on due Goal Cognitive assessment. Due on due Goal Td vaccine. Due on due Goal Special diet education compl eted Goal Zoster vaccine. Due on due Goal Depression screening. Due on due Goal Pneumococcal vaccine. Due on due Goal FOBT. Due on due Goal PSA. Due on due Goal Sigmoidoscopy. Due on due Goal Influenza vaccine. Due on due Goal Cognitive assessment. Due on due Goal Td vaccine. Due on 19 due Goal Special diet education compl eted Goal Td vaccine. Due on due Goal Cognitive assessment. Due on due Goal Influenza vaccine. Due on Oc due Goal Sigmoidoscopy. Due on due Goal PSA. Due on due Goal FOBT. Due on due Goal Pneumococcal vaccine. Due on due Goal Depression screening. Due on due Goal Zoster vaccine. Due on due Goal Tobacco cessation counseling completed Goal Special diet education compl eted Goal Zoster vaccine. Due on due Goal Depression screening. Due on due Goal Pneumococcal vaccine. Due on due Goal FOBT. Due on due Goal PSA. Due on due Goal Sigmoidoscopy. Due on due Goal Influenza vaccine. Due on Oc due Goal Cognitive assessment. Due on due Goal Td vaccine. Due on 19 due Goal Special diet education compl eted Goal Tobacco cessation counseling completed Goal PSA. Due on due Goal FOBT. Due on due Goal Pneumococcal vaccine. Due on due Goal Zoster vaccine. Due on due Goal Depression screening. Due on due Goal Td vaccine. Due on due Goal Cognitive assessment. Due on due Goal Influenza vaccine. Due on due Goal Sigmoidoscopy. Due on due Goal Tobacco cessation counseling completed Goal Special diet education compl eted Goal Sigmoidoscopy. Due on due Goal Influenza vaccine. Due on due Goal Cognitive assessment. Due on due Goal Td vaccine. Due on 19 due Goal Depression screening. Due on due Goal Zoster vaccine. Due on due Goal Pneumococcal vaccine. Due on due Goal FOBT. Due on due Goal PSA. Due on due Goal Special diet education compl eted Goal Tobacco cessation counseling completed Goal Depression screening. Due on due Goal Zoster vaccine. Due on due Goal Pneumococcal vaccine. Due on due Goal FOBT. Due on due Goal PSA. Due on due Goal Sigmoidoscopy. Due on due Goal Influenza vaccine. Due on due Goal Cognitive assessment. Due on due Goal Td vaccine. Due on 19 due Goal Tobacco cessation counseling completed Goal Special diet education compl eted Goal Sigmoidoscopy. Due on due Goal Influenza vaccine. Due on due Goal Cognitive assessment. Due on due Goal Td vaccine. Due on 19 due Goal Depression screening. Due on due Goal Zoster vaccine. Due on due Goal Pneumococcal vaccine. Due on due Goal FOBT. Due on due Goal PSA. Due on due Goal Special diet education compl eted Goal Tobacco cessation counseling completed Goal Sigmoidoscopy. Due on due Goal Influenza vaccine. Due on due Goal Cognitive assessment. Due on due Goal Td vaccine. Due on due Goal Depression screening. Due on due Goal Zoster vaccine. Due on due Goal Pneumococcal vaccine. Due on due Goal FOBT. Due on due Goal PSA. Due on due Goal Tobacco cessation counseling completed Goal Special diet education compl eted Goal Sigmoidoscopy. Due on due Goal Influenza vaccine. Due on due Goal Cognitive assessment. Due on due Goal Td vaccine. Due on 19 due Goal Depression screening. Due on due Goal Zoster vaccine. Due on due Goal Pneumococcal vaccine. Due on due Goal FOBT. Due on due Goal PSA. Due on due Goal Tobacco cessation counseling completed Goal Special diet education compl eted Goal PSA. Due on due Goal FOBT. Due on due Goal Pneumococcal vaccine. Due on due Goal Zoster vaccine. Due on due Goal Depression screening. Due on due Goal Td vaccine. Due on due Goal Cognitive assessment. Due on due Goal Influenza vaccine. Due on due Goal Sigmoidoscopy. Due on due Goal Special diet education compl eted Goal PSA. Due on due Goal FOBT. Due on due Goal Pneumococcal vaccine. Due on due Goal Zoster vaccine. Due on due Goal Depression screening. Due on due Goal Td vaccine. Due on due Goal Cognitive assessment. Due on due Goal Influenza vaccine. Due on due Goal Sigmoidoscopy. Due on due Goal Special diet education compl eted Goal PSA. Due on due Goal FOBT. Due on due Goal Pneumococcal vaccine. Due on due Goal Zoster vaccine. Due on due Goal Depression screening. Due on due Goal Td vaccine. Due on due Goal Cognitive assessment. Due on due Goal Influenza vaccine. Due on due Goal Sigmoidoscopy. Due on due Goal Special diet education compl eted Goal Pneumococcal vaccine. Due on due Goal Zoster vaccine. Due on due Goal Depression screening. Due on due Goal Td vaccine. Due on due Goal Cognitive assessment. Due on due Goal Influenza vaccine. Due on due Goal Sigmoidoscopy. Due on due Goal PSA. Due on due Goal FOBT. Due on due Goal Special diet education compl eted Goal PSA. Due on due Goal FOBT. Due on due Goal Pneumococcal vaccine. Due on due Goal Zoster vaccine. Due on due Goal Depression screening. Due on due Goal Td vaccine. Due on 18 due Goal Cognitive assessment. Due on due Goal Influenza vaccine. Due on due Goal Sigmoidoscopy. Due on due Goal Special diet education compl eted Goal Tobacco cessation counseling completed Goal PSA. Due on due Goal FOBT. Due on due Goal Pneumococcal vaccine. Due on due Goal Zoster vaccine. Due on due Goal Depression screening. Due on due Goal Td vaccine. Due on due Goal Cognitive assessment. Due on due Goal Influenza vaccine. Due on due Goal Sigmoidoscopy. Due on due Goal Special diet education compl eted Goal PSA. Due on due Goal FOBT. Due on due Goal Pneumococcal vaccine. Due on due Goal Zoster vaccine. Due on due Goal Depression screening. Due on due Goal Td vaccine. Due on due Goal Cognitive assessment. Due on due Goal Influenza vaccine. Due on due Goal Sigmoidoscopy. Due on due Goal Special diet education compl eted Goal Sigmoidoscopy. Due on due Goal Influenza vaccine. Due on due Goal Cognitive assessment. Due on due Goal Td vaccine. Due on due Goal Depression screening. Due on due Goal Zoster vaccine. Due on due Goal Pneumococcal vaccine. Due on due Goal FOBT. Due on due Goal PSA. Due on due Goal Special diet education compl eted Goal Cognitive assessment. Due on due Goal Influenza vaccine. Due on due Goal Sigmoidoscopy. Due on due Goal PSA. Due on due Goal FOBT. Due on due Goal Pneumococcal vaccine. Due on due Goal Zoster vaccine. Due on due Goal Depression screening. Due on due Goal Td vaccine. Due on due Goal Special diet education compl eted Goal Td vaccine. Due on due Goal Depression screening. Due on due Goal Zoster vaccine. Due on due Goal Pneumococcal vaccine. Due on due Goal FOBT. Due on due Goal PSA. Due on due Goal Sigmoidoscopy. Due on due Goal Influenza vaccine. Due on due Goal Cognitive assessment. Due on due Goal Special diet education compl eted Goal Cognitive assessment. Due on due Goal Influenza vaccine. Due on due Goal Sigmoidoscopy. Due on due Goal PSA. Due on due Goal FOBT. Due on due Goal Pneumococcal vaccine. Due on due Goal Zoster vaccine. Due on due Goal Depression screening. Due on due Goal Td vaccine. Due on due Goal Special diet education compl eted Goal Cognitive assessment. Due on due Goal Influenza vaccine. Due on due Goal Sigmoidoscopy. Due on due Goal PSA. Due on due Goal FOBT. Due on due Goal Pneumococcal vaccine. Due on due Goal Zoster vaccine. Due on due Goal Depression screening. Due on due Goal Td vaccine. Due on due Goal Special diet education compl eted Goal Cognitive assessment. Due on due Goal Influenza vaccine. Due on due Goal Sigmoidoscopy. Due on due Goal PSA. Due on due Goal FOBT. Due on due Goal Pneumococcal vaccine. Due on due Goal Zoster vaccine. Due on due Goal Depression screening. Due on due Goal Td vaccine. Due on due Goal Prescribed diet education co mpleted Goal Zoster vaccine. Due on due Goal Pneumococcal vaccine. Due on due Goal FOBT. Due on due Goal PSA. Due on due Goal Depression screening. Due on due Goal Td vaccine. Due on due Goal Cognitive assessment. Due on due Goal Influenza vaccine. Due on due Goal Sigmoidoscopy. Due on due Goal FOBT. Due on due Goal Pneumococcal vaccine. Due on due Goal Zoster vaccine. Due on due Goal Influenza vaccine. Due on due Goal Depression screening. Due on due Goal Cognitive assessment. Due on due Goal PSA. Due on due Goal Td vaccine. Due on due Goal Sigmoidoscopy. Due on due Goal Td vaccine. Due on 17 due Goal Cognitive assessment. Due on due Goal FOBT. Due on due Goal PSA. Due on due Goal Pneumococcal vaccine. Due on due Goal Depression screening. Due on due Goal Zoster vaccine. Due on due Goal Sigmoidoscopy. Due on due Goal Influenza vaccine. Due on due Goal Pneumococcal vaccine. Due on due Goal Zoster vaccine. Due on due Goal FOBT. Due on due Goal Influenza vaccine. Due on due Goal Depression screening. Due on due Goal Sigmoidoscopy. Due on due Goal PSA. Due on due Goal Td vaccine. Due on 17 due Goal Cognitive assessment. Due on due Goal Zoster vaccine. Due on due Goal PSA. Due on due Goal Pneumococcal vaccine. Due on due Goal Depression screening. Due on due Goal Influenza vaccine. Due on due Goal FOBT. Due on due Goal Td vaccine. Due on 17 due Goal Cognitive assessment. Due on due Goal Sigmoidoscopy. Due on due Goal FOBT. Due on due Goal Depression screening. Due on due Goal Zoster vaccine. Due on due Goal Cognitive assessment. Due on due Goal Influenza vaccine. Due on due Goal Pneumococcal vaccine. Due on due Goal Td vaccine. Due on 17 due Goal PSA. Due on due Goal Sigmoidoscopy. Due on due Goal PSA. Due on due Goal Sigmoidoscopy. Due on due Goal Depression screening. Due on due Goal Pneumococcal vaccine. Due on due Goal Zoster vaccine. Due on due Goal Cognitive assessment. Due on due Goal Influenza vaccine. Due on due Goal FOBT. Due on due Goal Td vaccine. Due on due Goal Cognitive assessment. Due on due Goal Td vaccine. Due on due Goal Sigmoidoscopy. Due on due Goal Zoster vaccine. Due on due Goal Depression screening. Due on due Goal Influenza vaccine. Due on due Goal PSA. Due on due Goal Pneumococcal vaccine. Due on due Goal FOBT. Due on due Goal PSA. Due on due Goal Td vaccine. Due on 17 due Goal Cognitive assessment. Due on due Goal Sigmoidoscopy. Due on due Goal FOBT. Due on due Goal Influenza vaccine. Due on due Goal Zoster vaccine. Due on due Goal Depression screening. Due on due Goal Pneumococcal vaccine. Due on due Goal Zoster vaccine. Due on due Goal Pneumococcal vaccine. Due on due Goal PSA. Due on due Goal Depression screening. Due on due Goal FOBT. Due on due Goal Td vaccine. Due on 17 due Goal Sigmoidoscopy. Due on due Goal Cognitive assessment. Due on due Goal Influenza vaccine. Due on due Goal PSA. Due on due Goal Cognitive assessment. Due on due Goal Zoster vaccine. Due on due Goal Influenza vaccine. Due on due Goal Depression screening. Due on due Goal Sigmoidoscopy. Due on due Goal Pneumococcal vaccine. Due on due Goal Td vaccine. Due on 17 due Goal FOBT. Due on due Goal Sigmoidoscopy. Due on due Goal Depression screening. Due on due Goal Cognitive assessment. Due on due Goal PSA. Due on due Goal Pneumococcal vaccine. Due on due Goal Zoster vaccine. Due on due Goal Td vaccine. Due on 17 due Goal FOBT. Due on due Goal Influenza vaccine. Due on due Goal Td vaccine. Due on due Goal Pneumococcal vaccine. Due on due Goal Influenza vaccine. Due on due Goal FOBT. Due on due Goal Sigmoidoscopy. Due on due Goal Zoster vaccine. Due on due Goal Depression screening. Due on due Goal PSA. Due on due Goal Cognitive assessment. Due on due Goal Influenza vaccine. Due on due Goal Depression screening. Due on due Goal Zoster vaccine. Due on due Goal PSA. Due on due Goal Sigmoidoscopy. Due on due Goal Cognitive assessment. Due on due Goal Pneumococcal vaccine. Due on due Goal Td vaccine. Due on due Goal FOBT. Due on due Goal Zoster vaccine. Due on due Goal Sigmoidoscopy. Due on due Goal Cognitive assessment. Due on due Goal Pneumococcal vaccine. Due on due Goal Td vaccine. Due on due Goal FOBT. Due on due Goal PSA. Due on due Goal Influenza vaccine. Due on due Goal Depression screening. Due on due Goal Zoster vaccine. Due on due Goal Sigmoidoscopy. Due on due Goal Td vaccine. Due on due Goal Pneumococcal vaccine. Due on due Goal PSA. Due on due Goal Influenza vaccine. Due on due Goal FOBT. Due on due Goal Depression screening. Due on due Goal Cognitive assessment. Due on due Goal FOBT. Due on due Goal Influenza vaccine. Due on due Goal Td vaccine. Due on 16 due Goal Tdap. Due on due Goal PSA. Due on due Goal Depression screening. Due on due Goal Zoster vaccine. Due on due Goal Sigmoidoscopy. Due on due Goal PSA. Due on due Goal Influenza vaccine. Due on due Goal Tdap. Due on due Goal Sigmoidoscopy. Due on due Goal Td vaccine. Due on due Goal FOBT. Due on due Goal Depression screening. Due on due Goal Zoster vaccine. Due on due Goal Influenza vaccine. Due on Oc due Goal Depression screening. Due on due Goal PSA. Due on due Goal Td vaccine. Due on due Goal Tdap. Due on due Goal Sigmoidoscopy. Due on due Goal FOBT. Due on due Goal Zoster vaccine. Due on due Goal Td vaccine. Due on 16 due Goal FOBT. Due on due Goal PSA. Due on due Goal Sigmoidoscopy. Due on due Goal Influenza vaccine. Due on due Goal Zoster vaccine. Due on due Goal Tdap. Due on due Goal Depression screening. Due on due Goal Zoster vaccine. Due on due Goal PSA. Due on due Goal Td vaccine. Due on 16 due Goal Sigmoidoscopy. Due on due Goal Influenza vaccine. Due on due Goal Depression screening. Due on due Goal Tdap. Due on due Goal FOBT. Due on due Goal FOBT. Due on due Goal Influenza vaccine. Due on due Goal Sigmoidoscopy. Due on due Goal Depression screening. Due on due Goal Tdap. Due on due Goal Zoster vaccine. Due on due Goal Td vaccine. Due on 16 due Goal PSA. Due on due Goal Depression screening. Due on due Goal Influenza vaccine. Due on due Goal Td vaccine. Due on 16 due Goal FOBT. Due on due Goal Sigmoidoscopy. Due on due Goal Tdap. Due on due Goal Zoster vaccine. Due on due Goal PSA. Due on due Goal Depression screening. Due on due Goal FOBT. Due on due Goal Zoster vaccine. Due on due Goal Influenza vaccine. Due on due Goal Td vaccine. Due on 16 due Goal PSA. Due on due Goal Sigmoidoscopy. Due on due Goal Tdap. Due on due Goal Sigmoidoscopy. Due on due Goal PSA. Due on due Goal Tdap. Due on due Goal Influenza vaccine. Due on due Goal Td vaccine. Due on 16 due Goal Depression screening. Due on due Goal FOBT. Due on due Goal Zoster vaccine. Due on due Goal Depression screening. Due on due Goal Sigmoidoscopy. Due on due Goal Tdap. Due on due Goal Influenza vaccine. Due on due Goal Td vaccine. Due on due Goal Zoster vaccine. Due on due Goal PSA. Due on due Goal FOBT. Due on due Goal Influenza vaccine. Due on due Goal Depression screening. Due on due Goal Td vaccine. Due on due Goal Tdap. Due on due Goal Sigmoidoscopy. Due on due Goal Zoster vaccine. Due on due Goal PSA. Due on due Goal FOBT. Due on due Goal Depression screening. Due on due Goal PSA. Due on due Goal FOBT. Due on due Goal Influenza vaccine. Due on due Goal Td vaccine. Due on due Goal Zoster vaccine. Due on due Goal Sigmoidoscopy. Due on due Goal Tdap. Due on due Goal Td vaccine. Due on due Goal Zoster vaccine. Due on due Goal PSA. Due on due Goal Depression screening. Due on due Goal Sigmoidoscopy. Due on due Goal Tdap. Due on due Goal Influenza vaccine. Due on due Goal FOBT. Due on due Goal Depression screening. Due on due Goal Td vaccine. Due on due Goal FOBT. Due on due Goal Zoster vaccine. Due on due Goal Tdap. Due on due Goal Influenza vaccine. Due on due Goal PSA. Due on due Goal Sigmoidoscopy. Due on due Goal Influenza vaccine. Due on due Goal Tdap. Due on due Goal Depression screening. Due on due Goal Sigmoidoscopy. Due on due Goal PSA. Due on due Goal Td vaccine. Due on due Goal Zoster vaccine. Due on due Goal FOBT. Due on due Goal Sigmoidoscopy. Due on due Goal Zoster vaccine. Due on due Goal Influenza vaccine. Due on due Goal Tdap. Due on due Goal Depression screening. Due on due Goal Td vaccine. Due on due Goal FOBT. Due on due Goal PSA. Due on due Goal PSA. Due on due Goal Tdap. Due on due Goal Zoster vaccine. Due on due Goal FOBT. Due on due Goal Sigmoidoscopy. Due on due Goal Influenza vaccine. Due on due Goal Td vaccine. Due on due Goal Depression screening. Due on due Goal FOBT. Due on due Goal Influenza vaccine. Due on due Goal Tdap. Due on due Goal Sigmoidoscopy. Due on due Goal Depression screening. Due on due Goal Zoster vaccine. Due on due Goal PSA. Due on due Goal Td vaccine. Due on due Goal PSA. Due on due Goal Td vaccine. Due on due Goal Sigmoidoscopy. Due on due Goal Tdap. Due on due Goal FOBT. Due on due Goal Influenza vaccine. Due on due Goal Zoster vaccine. Due on due Goal Depression screening. Due on due Goal Zoster vaccine. Due on due Goal PSA. Due on due Goal FOBT. Due on due Goal Sigmoidoscopy. Due on due Goal Tdap. Due on due Goal Influenza vaccine. Due on due Goal Td vaccine. Due on due Goal Depression screening. Due on due Goal Td vaccine. Due on 15 due Goal Tdap. Due on due Goal Zoster vaccine. Due on due Goal PSA. Due on due Goal Depression screening. Due on due Goal FOBT. Due on due Goal Influenza vaccine. Due on due Goal Sigmoidoscopy. Due on due Goal Special diet education compl eted Goal Colonoscopy. Due on 014 due Goal PSA. Due on due Goal Tobacco cessation counseling completed Goal Tobacco cessation counseling completed Goal Tobacco cessation counseling completed Goal Tobacco cessation counseling completed Goal Tobacco cessation counseling completed Goal Tobacco cessation counseling completed Goal Tobacco cessation counseling completed Goal Tobacco cessation counseling completed Goal Tobacco cessation counseling completed Goal Tobacco cessation counseling completed Goal Tobacco cessation counseling completed Goal Tobacco cessation counseling completed Goal Tobacco cessation counseling completed Goal Tobacco cessation counseling completed Goal Tobacco cessation counseling completed Goal Tobacco cessation counseling completed Goal Tobacco cessation counseling completed Goal Tobacco cessation counseling completed Goal Tobacco cessation counseling completed Goal Tobacco cessation counseling completed Goal Tobacco cessation counseling completed Goal Tobacco cessation counseling completed Goal Tobacco cessation counseling completed Goal Tobacco cessation counseling completed Goal Tobacco cessation counseling completed Goal Tobacco cessation counseling completed Goal Tobacco cessation counseling completed Goal Tobacco cessation counseling completed Goal Tobacco cessation counseling completed Goal Tobacco cessation counseling completed Goal Tobacco cessation counseling completed Goal Tobacco cessation counseling completed Goal Tobacco cessation counseling completed Referral Ordered: Hematology (related to Anemia) ordered Referral Ordered: Referrals: Hematology. Evaluate and treat ordered Referral Ordered: Mich Oneal [facility] : Internal Medicine : Gastroenterology (related to Polyp of colon) ordered Referral Referred To: Mich Oneal [address] [place], [place], [id number] Ordered: Referrals: [facility]opathic [facility]opathic Physicians : Internal Medicine : Gastroenterology. Mich Oneal. Evaluate and treat ordered Referral Referred To: Samir INFANTE, Jenny Bauer [id number] [facility] [address] [place], [place], [id number] Ordered: Referrals: Jenny Dawson MD. Evaluate and treat ordered Referral Ordered: CT LUMBAR SPINE W/O DYE ordered Referral Ordered: US KIDNEY ordered Referral Ordered: Forest Moctezuma -[facility] : Internal Medicine : Endocrinology, Diabetes & Metabolism (related to Type 2 diabetes mellitus with diabetic nephropathy) ordered Referral Referred To: Forest Moctezuma [address] [facility] [address] [place], [place] [id number] Ordered: Referrals: Allopathic & Osteopathic Physicians : Internal Medicine : Endocrinology, Diabetes & Metabolism. Forest Moctezuma. Evaluate and treat ordered Referral Ordered: Pulmonology (related to Emphysema) ordered Referral Ordered: Jaskaran Saavedra (related to Nevus, non-neoplastic) ordered Referral Ordered: MRI ABDOMEN W/O DYE ordered Referral Referred To: Jaskaran Saavedra [address] [place], [phone] Ordered: Referrals: Jaskaran Saavedra. Evaluate and treat ordered Referral Ordered: US EXAM OF ABDOMEN, LIMITED, GALLBLADDER ordered Referral Ordered: CT THORAX W/O DYE ordered Referral Ordered: Cardiac Rehabilitation (related to Mixed hyperlipidemia) ordered Referral Referred To: Cardiac Rehabilitation Ordered: Referrals: Cardiac Rehabilitation. Evaluate and treat ordered Referral Ordered: Pulmonology (related to COPD) ordered Referral Ordered: Urology (related to Malignant neoplasm of right renal pelvis) ordered Referral Ordered: Referrals: Urology. Evaluate and treat ordered Referral Ordered: Gastroenterology (related to Liver disease) ordered Referral Ordered: Wali Lomeli (related to Liver disease) ordered Referral Referred To: Wali Lomeli [address] [place], [phone] Ordered: Referrals: Wali Lomeli. Evaluate and treat ordered Referral Ordered: Referrals: Gastroenterology. Evaluate and treat ordered Referral Ordered: CT ABDOMEN W/O & W/DYE ordered Referral Ordered: [employer] (related to Type 2 diabetes mellitus with diabetic nephropathy) ordered Referral Ordered: Referrals: [facility] [employer] [facility]. Evaluate and treat ordered Referral Ordered: Pulmonology (related to Other emphysema) ordered Referral Ordered: Referrals: Pulmonology. Evaluate and treat ordered Referral Ordered: MRI LUMBAR SPINE W/O DYE ordered Referral Ordered: Referral: Otolaryngology. ordered Referral Ordered: COLONOSCOPY AND BIOPSY ordered Referral Ordered: CT ABDOMEN W/DYE ordered Referral Ordered: CHEST X-RAY PA/LAT TWO-VIEWS ordered Referral Ordered: Urology ordered Referral Ordered: MRI ABDOMEN W/O & W/DYE ordered Referral Ordered: Referral: Urology. Evaluate and treat. ordered Referral Ordered: US EXAM, ABDOM, COMPLETE ordered Referral Ordered: CT THORAX W/O & W/DYE ordered Appointment Lencho Baker BOOKED History Of Present Illness Encounter Date Complaint History Of Prese nt Illness anxiety1 Pt has chronic a nxiety and depression Pt takes celexa and xanax PRN and doing ok Pt denies any suicidal or homicidal thought Pt denies any crying spells pain Pt has chronic l ow back pain pt denies any worsening pain Pt denies any loss of bladder control. Pt has mild neuropathy symptoms. Pt takes percocet and soma. Pt failed neurontin. Pt denies any saddle area paresthesia pain Pt has chronic l ow back pain pt denies any worsening pain Pt denies any loss of bladder control. Pt has mild neuropathy symptoms. Pt takes percocet and soma. Pt failed neurontin. Pt denies any saddle area paresthesia anxiety1 Pt has chronic a nxiety and depression Pt takes celexa and xanax PRN and doing ok Pt denies any suicidal or homicidal thought Pt denies any crying spells anxiety1 Pt has chronic a nxiety and depression Pt takes celexa and xanax PRN and doing ok Pt denies any suicidal or homicidal thought Pt denies any crying spells pain Pt has chronic l ow back pain pt denies any worsening pain Pt denies any loss of bladder control. Pt has mild neuropathy symptoms. Pt takes percocet and soma. Pt failed neurontin. Pt denies any saddle area paresthesia gout1 Pt takes allopur inol and he denies any gout attacks pain Pt has chronic l ow back pain pt denies any worsening pain Pt denies any loss of bladder control. Pt has mild neuropathy symptoms. Pt takes percocet and soma. Pt failed neurontin. Pt denies any saddle area paresthesia anxiety1 Pt has chronic a nxiety and depression Pt takes celexa and xanax PRN and doing ok Pt denies any suicidal or homicidal thought Pt denies any crying spells pain Pt has chronic l ow back pain pt denies any worsening pain Pt denies any loss of bladder control. Pt has mild neuropathy symptoms. Pt takes percocet and soma. Pt failed neurontin. Pt denies any saddle area paresthesia anxiety1 Pt has chronic a nxiety and depression Pt takes celexa and xanax PRN and doing ok Pt denies any suicidal or homicidal thought Pt denies any crying spells COPD1 Pt has COPD due to smoking Pt still smoking pt rarely feels sob and he is off atrovent .Pt only uses albuterol PRN and 2-3 per week Pt denies any hemoptysis cough HLP Pt has HLP Pt ta kes zocor and feno Pt denies any myalgia anxiety1 Pt has chronic a nxiety and depression Pt takes celexa and xanax PRN and doing ok Pt denies any suicidal or homicidal thought Pt denies any crying spells pain Pt has chronic l ow back pain pt denies any worsening pain Pt denies any loss of bladder control. Pt has mild neuropathy symptoms. Pt takes percocet and soma. Pt failed neurontin. Pt denies any saddle area paresthesia anxiety1 Pt has chronic a nxiety and depression Pt takes celexa and xanax PRN and doing ok Pt denies any suicidal or homicidal thought Pt denies any crying spells pain Pt has chronic l ow back pain pt denies any worsening pain Pt denies any loss of bladder control. Pt has mild neuropathy symptoms. Pt takes percocet and soma. Pt failed neurontin. Pt denies any saddle area paresthesia pain Pt has chronic l ow back pain pt denies any worsening pain Pt denies any loss of bladder control. Pt has mild neuropathy symptoms. Pt takes percocet and soma. Pt failed neurontin. Pt denies any saddle area paresthesia anxiety1 Pt has chronic a nxiety and depression Pt takes celexa and xanax PRN and doing ok Pt denies any suicidal or homicidal thought Pt denies any crying spells pain Pt has chronic l ow back pain pt denies any worsening pain Pt denies any loss of bladder control. Pt has mild neuropathy symptoms. Pt takes percocet and soma. Pt failed neurontin. Pt denies any saddle area paresthesia anxiety1 Pt has chronic a nxiety and depression Pt takes celexa and xanax PRN and doing ok Pt denies any suicidal or homicidal thought Pt denies any crying spells ESRD Pt has ESRD and he is getting dialysis .Pt is in the [facility] pt will do lab and renal ultrasound cardiac1 Pt has paroxymal afib with cardiomyopathy Pt is seeing cardiology. Pt is on diltiazem and ASA only Pt is off blood thinner. Pt denies any chest pain or sob. Pt has HTN Pt takes diltiazem and toprol and his bp is ok pain Pt has chronic l ow back pain pt denies any worsening pain Pt denies any loss of bladder control. Pt has mild neuropathy symptoms. Pt takes percocet and soma. Pt failed neurontin. Pt denies any saddle area paresthesia anxiety1 Pt has chronic a nxiety and depression Pt takes celexa and xanax PRN and doing ok Pt denies any suicidal or homicidal thought Pt denies any crying spells pain Pt has chronic l ow back pain pt denies any worsening pain Pt denies any loss of bladder control. Pt has mild neuropathy symptoms. Pt takes percocet and soma. Pt failed neurontin. Pt denies any saddle area paresthesia anxiety1 Pt has chronic a nxiety and depression Pt takes celexa and xanax PRN and doing ok Pt denies any suicidal or homicidal thought Pt denies any crying spells afib Pt has paroxymal afib with cardiomyopathy Pt is seeing cardiology. Pt is on diltiazem and ASA only Pt is off blood thinner. Pt denies any chest pain or sob. Pt has HTN Pt takes diltiazem and toprol and his bp is high today. ESRD Pt gets hemodial ysis 3 times per week and last dialysis was yesterday. anxiety1 Pt has chronic a nxiety and depression Pt takes celexa and xanax PRN and doing ok Pt denies any suicidal or homicidal thought Pt denies any crying spells pain Pt has chronic l ow back pain pt denies any worsening pain Pt denies any loss of bladder control. Pt has mild neuropathy symptoms. Pt takes percocet and soma. Pt failed neurontin. Pt denies any saddle area paresthesia gout1 Pt has not had a ny gout attack for long time. He is on allopurinol. His uric acid is ok HLP Pt has HLP Pt is on Vascepa, feno and zocor and his lipid profile is ok pain Pt has chronic l ow back pain pt denies any worsening pain Pt denies any loss of bladder control. Pt has mild neuropathy symptoms. Pt takes percocet and soma. Pt failed neurontin. Pt denies any saddle area paresthesia anemia1 Pt has chronic n ormocytic anemia Pt has proteinuria and renal failure Pt denies any bleeding Pt gets hemodialysis 3 times per week. Pt has low calcium and high phos Pt is on mediation to lower phos by nephrology. DM Pt has DM Pt see s endo Pt is not on any DM meds now .His A1c is ok. Pt has neuropathy symptoms anxiety1 Pt has chronic a nxiety and depression Pt takes celexa and xanax PRN and doing ok Pt denies any suicidal or homicidal thought Pt denies any crying spells pain Pt has chronic l ow back pain pt denies any worsening pain Pt denies any loss of bladder control. Pt has mild neuropathy symptoms. Pt takes percocet and soma. Pt failed neurontin. Pt denies any saddle area paresthesia anxiety1 Pt has chronic a nxiety and depression Pt takes celexa and xanax PRN and doing ok Pt denies any suicidal or homicidal thought Pt denies any crying spells LP pt has HLP .Pt t akes vascepa, zocor and feno. Pt denies any myalgia. His lipid profile is ok. gout1 Pt has history o f gout .Pt takes allopurinol Pt denies any gout attack gout1 Pt has gout Pt t akes allopurinol. Pt denies any gout attacks. pain Pt has chronic l ow back pain pt denies any worsening pain Pt denies any loss of bladder control. Pt has mild neuropathy symptoms. Pt takes percocet and soma. Pt failed neurontin. Pt denies any saddle area paresthesia anxiety1 Pt has chronic a nxiety and depression Pt takes celexa and xanax PRN and doing ok Pt denies any suicidal or homicidal thought Pt denies any crying spells HLP Pt has HLP Pt ta kes zocor, feno and vascepa. Pt needs refill Pt denies any myalgia physical Pt needs annual physical. Pt has multiple medical issue Pt has chronic back pain and anxiety and depression Pt takes celexa, percocet, soma and xanax PRn and doing ok. Pt denies any suicidal or homicidal thought, Pt denies any crying spells. Pt has HLP Pt takes Vascepa, zocor and feno and his lipid profile is improving. Pt has ESRD and he is getting dialysis weekly. Pt has DM Pt denies any neuropathy .Pt sees endo. Pt denies any polyuria, polydipsia. Pt has COPD. Pt takes atrovent and ventolin PRn and doing ok. pt uses albuterol 2-3 per month. Pt denies any acute sob. Pt denies any hemoptysis. Pt has history of gout Pt takes allopurinol .Pt denies any recent gout attacks cough1 Pt went to [facility] yesterday and she started to have mild cough with some dark green phlegm yesterday Pt denies any fever, sob or any hemoptysis. Pt does have COPD and he uses Atrovent inhaler daily Pt denies any acute sob. Pt states that today he feels much better .He states that his cough resolved. He denies any fever or sob. Pt feels completely fine now. Pt denies any sore throat, sinus congestion, ear pain, GI symptoms, etc. pain Pt has chronic l ow back pain pt denies any worsening pain Pt denies any loss of bladder control. Pt has mild neuropathy symptoms. Pt takes percocet and soma. Pt failed neurontin. Pt denies any saddle area paresthesia anxiety1 Pt has chronic a nxiety and depression Pt takes celexa and xanax PRN and doing ok Pt denies any suicidal or homicidal thought Pt denies any crying spells HLP Pt has HLP .Pt t akes vascepa ,zocor and feno. Pt denies any myalgia .Pt needs zocor refilled. colon polyp1 Pt has history o f tubular adenoma on colonoscopy 2018. Pt denies any Gi issue .Pt has bunny for colonoscopy later this week renal failure1 Pt has been doin g hemodialysis for the past week and he is doing ok. weight loss1 Pt has been losi ng weight unintentionally. He has been getting dialysis and getting fluid off him recently Pt denies any GI issue pain Pt has chronic l ow back pain pt denies any worsening pain Pt denies any loss of bladder control. Pt has mild neuropathy symptoms. Pt takes percocet and soma. Pt failed neurontin. Pt denies any saddle area paresthesia anxiety1 Pt has chronic a nxiety and depression Pt takes celexa and xanax PRN and doing ok Pt denies any suicidal or homicidal thought Pt denies any crying spells cough1 Pt c/o acute ons et of productive cough with green phlegm x 2 days Pt denies any hemoptysis. LDCT ok. Pt denies any fever anemia1 Pt has chronic a nemia with low calcium, low iron, low platelet and high PTH Pt had lab done by nephrology Pt will start dialysis soon. Pt denies any bleeding Pt has colonoscopy scheduled soon .Pt denies any GERD or upper Gi issue anxiety1 Pt has chronic a nxiety and depression Pt takes celexa and xanax PRN and doing ok Pt denies any suicidal or homicidal thought Pt denies any crying spells pain Pt has chronic l ow back pain pt denies any worsening pain Pt denies any loss of bladder control. Pt has mild neuropathy symptoms. Pt takes percocet and soma. Pt failed neurontin. Pt denies any saddle area paresthesia anxietyy1 Pt has chronic a nxiety and depression Pt takes celexa and xanax PRN and doing ok Pt denies any suicidal or homicidal thought Pt denies any crying spells pain Pt has chronic l ow back pain pt denies any worsening pain Pt denies any loss of bladder control. Pt has mild neuropathy symptoms. Pt takes percocet and soma. Pt failed neurontin. Pt denies any saddle area paresthesia glucose1 Pt went to ER [facility] ambulance due to mental status change and he was told that it is due to insulin He is off insulin completely. he still was taking amaryl which he supposedly stopped recently but he is still taking it. A1c 5.2. anemia1 Pt has anemia. P t denies any bleeding Pt has colonoscopy soon HTN Pt has HTn >pt t akes diltiazem and toprol and his bp is high today. Pt has ESRD and he is about to start dialysis. Pt denies any edema tobacco Pt needs LDCT Pt is long time smoker Pt denies any hemoptysis worsening sob ESRD Pt just had shun t placed left arm and he is ready for dialysis soon. Pt sees nephrology colon polyp1 Pt has tubular a denoma on colonoscopy . He had negative colonguard 2020. Pt denies any lower GI issue anxiety1 Pt has chronic a nxiety and depression Pt takes celexa and xanax PRN and doing ok Pt denies any suicidal or homicidal thought Pt denies any crying spells pain Pt has chronic l ow back pain pt denies any worsening pain Pt denies any loss of bladder control. Pt has mild neuropathy symptoms. Pt takes percocet and soma. Pt failed neurontin. Pt denies any saddle area paresthesia HTN Pt has HTN and a lso ESRD Pt could not get the fistula done last week and he will get it done again soon on left arm. Pt has not started dialysis yet .pt denies any edema Pt still making urine anxiety1 Pt has chronic a nxiety and depression Pt takes celexa and xanax PRN and doing ok Pt denies any suicidal or homicidal thought Pt denies any crying spells pain Pt has chronic l ow back pain pt denies any worsening pain Pt denies any loss of bladder control. Pt has mild neuropathy symptoms. Pt takes percocet and soma. Pt failed neurontin. Pt denies any saddle area paresthesia pain Pt has chronic l ow back pain pt denies any worsening pain Pt denies any loss of bladder control. Pt has mild neuropathy symptoms. Pt takes percocet and soma. Pt failed neurontin. Pt denies any saddle area paresthesia anxiety1 Pt has chronic a nxiety and depression Pt takes celexa and xanax PRN and doing ok Pt denies any suicidal or homicidal thought Pt denies any crying spells renal Pt has chronic r enal disease and he sees Dr. Solis now and he will start hemodialysis soon. Pt has normal UO pain Pt has chronic l ow back pain pt denies any worsening pain Pt denies any loss of bladder control. Pt has mild neuropathy symptoms. Pt takes percocet and soma and he wants more soma than prescribed . Pt failed neurontin. Pt denies any saddle area paresthesia hypoglycemia1 pt is off amaryl and he is on insulin glargine 8 units daily now and his glucose is around 120s. Pt has not made bunny with endo yet renal Pt saw a new nep hrologist last month and he will do some lab and he has follow up bunny next week. he does not know the name of the doctor. he is on lasix 20 mg daily from nephrology Pt denies any edema or sob anxiety1 Pt has chronic a nxiety and depression Pt takes celexa and xanax PRN and doing ok Pt denies any suicidal or homicidal thought Pt denies any crying spells anxiety1 Pt has chronic a nxiety and depression Pt takes celexa and xanax PRN and doing ok Pt denies any suicidal or homicidal thought Pt denies any crying spells hypoglycemia1 Pt was admitted to hospital over the weekend for hypoglycemia. Pt states that his glucose was around 30s. Pt was transferred to ER via ambulance. He is off amaryl and insulin CKD Pt has CKD4. pt has bunny with nephrology today. pt was also admitted to hospital early this month for fluid overload. pt did not have heart failure Pt underwent diuresis and he is doing ok now without swelling Pt has normal UO. Pt lost some weight as a result of diuresis. Pt also is on diltiazem now in addition to toprol pain Pt has chronic l ow back pain pt denies any worsening pain Pt denies any loss of bladder control. Pt has mild neuropathy symptoms. Pt takes percocet and soma and he wants more soma than prescribed . Pt failed neurontin. Pt denies any saddle area paresthesia anxiety1 Pt has chronic a nxiety and depression Pt takes celexa and xanax PRN and doing ok Pt denies any suicidal or homicidal thought Pt denies any crying spells COPD1 Pt recently was admitted to hospital for COPD exacerbation. Pt had intermediate V/Q scan. Pt doing better currently. Pt is not on any anticoagulation due to history of GI bleeding. Pt denies any bleeding. Pt denies any sob or cough or fever or chest pain or calf pain currently. lab Pt had lab done which showed proteinuria, low folate, mild anemia, low platelet, DM ,low renal, low calcium and high uric acid pain Pt has chronic l ow back pain pt denies any worsening pain Pt denies any loss of bladder control. Pt has mild neuropathy symptoms. Pt takes percocet and soma and he wants more soma than prescribed . Pt failed neurontin. Pt denies any saddle area paresthesia HT Pt takes toprol daily and his bp is high currently Pt denies any chest pain or headache emphysema1 Pt has emphysema but he has not been taking atrovent. Pt still smoking cough1 Pt c/o acute ons et or productive cough with green phlegm with mild sob since 3 days ago. Pt denies any fever. pt denies any chest pain Pt denies any calf pain Pt has history of COPD with pneumonia. Pt denies any sore throat, sinus symptoms, etc. Pt also has mild clear running nose . anxiety1 Pt has chronic a nxiety and depression Pt takes celexa and xanax PRN and doing ok Pt denies any suicidal or homicidal thought Pt denies any crying spells pain Pt has chronic l ow back pain pt denies any worsening pain Pt denies any loss of bladder control. Pt has mild neuropathy symptoms. Pt takes percocet and soma and he wants more soma than prescribed . Pt failed neurontin. Pt denies any saddle area paresthesia HLP Pt has HLP Pt ta kes vascepa, zocor and feno Pt denies any myalgia gout1 Pt has history o f gout .Pt takes allopurinol and he has not had any gout attacks pain Pt has chronic l ow back pain pt denies any worsening pain Pt denies any loss of bladder control. Pt has mild neuropathy symptoms. Pt takes percocet and soma and he wants more soma than prescribed . Pt failed neurontin. Pt denies any saddle area paresthesia anxiety1 Pt has chronic a nxiety and depression. Pt takes celexa and xanax and doing ok Pt denies any suicidal or homicidal thought Pt denies any crying spells pneumonia1 Pt denies any he moptysis, sob or cough. Chest x ray showed resolution of pneumonia renal1 Pt had Ct of abd omen and pelvis done which showed bladder and renal carcinoma. Pt has not heard from urology yet pain Pt has chronic l ow back pain pt denies any worsening pain Pt denies any loss of bladder control. Pt has mild neuropathy symptoms. Pt takes percocet and soma and he wants more soma than prescribed . Pt failed neurontin. Pt denies any saddle area paresthesia anxiety1 Pt has chronic a nxiety and depression. Pt takes celexa and xanax and doing ok Pt denies any suicidal or homicidal thought Pt denies any crying spells renal Pt has stage III renal disease Pt states that he saw nephrology several weeks ago and currently no plan for dialysis or kidney transplant. Pt has normal UO. pain Pt has chronic l ow back pain pt denies any worsening pain Pt denies any loss of bladder control. Pt has mild neuropathy symptoms. Pt takes percocet and soma and doing ok . Pt failed neurontin. Pt denies any saddle area paresthesia anxiety Pt has chronic a nxiety and depression. Pt takes celexa and xanax and doing ok Pt denies any suicidal or homicidal thought Pt denies any crying spells anemia1 Pt had lab done and anemia resolved and iron and ferritin all normal now. Pt saw hematology but he did not receive any iron infusion renal Pt has low renal and low calcium and high phos. Pt has bunny with nephrology next week> pt has severe renal disease. pt has normal UO. Pt has DM as well. pain Pt has chronic l ow back pain pt denies any worsening pain Pt denies any loss of bladder control. Pt has mild neuropathy symptoms. Pt takes percocet and soma and doing ok . Pt failed neurontin. Pt denies any saddle area paresthesia anxiety Pt has chronic a nxiety and depression. Pt takes celexa and xanax and doing ok Pt denies any suicidal or homicidal thought Pt denies any crying spells renal1 Pt had Ct abdome n and pelvis without contrast which showed diminished hematoma but unable to exclude renal malignancy. Pt also has renal failure recently and he saw nephrology last month and had some lab done. Pt has normal UO . Pt is on the transplant waiting list now anemia1 Pt had some lab done by hematology and he never received iron infusion or blood transfusion Pt denies any bleeding anxiety1 Pt has chronic a nxiety and depression. Pt takes celexa and xanax and doing ok Pt denies any suicidal or homicidal thought Pt denies any crying spells pain Pt has chronic l ow back pain pt denies any worsening pain Pt denies any loss of bladder control. Pt has mild neuropathy symptoms. Pt takes percocet and soma and doing ok . Pt failed neurontin. Pt denies any saddle area paresthesia HLP Pt has history o f HLP ,Pt takes zocor, feno and vascepa. Pt needs refill. Pt denies any myalgia. anemia1 Pt has anemia. P t has not done lab yet. Pt has bunny with hematology next week. Pt also did lab through nephrology but i do not have result today anemia1 Pt has anemia. H e denies any bleeding .Pt has bunny with hematology next week. 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 Pt is seeing urology and will do biopsy soon anxiety1 Pt has chronic a nxiety and depression. Pt takes celexa and xanax and doing ok Pt denies any suicidal or homicidal thought Pt denies any crying spells pain Pt has chronic l ow back pain pt denies any worsening pain Pt denies any loss of bladder control. Pt has mild neuropathy symptoms. Pt takes percocet and soma and doing ok . Pt failed neurontin. Pt denies any saddle area paresthesia pneumonia1 Pt had pneumonia recently and he denies any fever, cough, sob. He had repeat chest x ray done in hospital which showed improvement of the infiltrate. Pt denies any chest pain renal failure1 Pt has ESRD. pt just saw nephrology and he will start dialysis soon. He is also start the process of waiting for renal transplant .Pt also has renal mass and he just saw urology yesterday and he will do more imaging study anemia1 Pt is anemic wit h normal MCV. Pt denies any GI bleeding. Pt did not receive blood transfusion in hospital. Pt feels slightly weak and sob pain1 Pt has chronic l ow back pain pt denies any worsening pain Pt denies any loss of bladder control. Pt has mild neuropathy symptoms. Pt takes percocet and soma and doing ok . Pt failed neurontin. Pt denies any saddle area paresthesia anxiety1 Pt has chronic a nxiety and depression. Pt takes celexa and xanax and doing ok Pt denies any suicidal or homicidal thought Pt denies any crying spells pneumonia1 Pt had CAP recen tly. Pt denies any worsening sob or any hemoptysis or cough Pt was treated with abx .Pt denies any chest pain. Pt also has intermediated probability for PE Pt is on eliquis 5 mg BID now. Pt denies any bleeding low back pain1 Pt has chronic l ow back pain pt denies any worsening pain Pt denies any loss of bladder control. Pt has mild neuropathy symptoms. Pt takes percocet and soma and doing ok . Pt failed neurontin. Pt denies any saddle area paresthesia. Pt states that he has left sciatica and left leg numbness and tingling Pt has been taking more than two soma per day for the last month due to worsening pain. pain Pt has chronic l ow back pain pt denies any worsening pain Pt denies any loss of bladder control. Pt has mild neuropathy symptoms. Pt takes percocet and soma and doing ok . Pt failed neurontin. Pt denies any saddle area paresthesia. anxiety1 Pt has chronic a nxiety and depression. Pt takes celexa and xanax PRn and doing ok Pt denies any suicidal or homicidal thought Pt denies any crying spells. pneumonia1 Pt was recently admitted to hospital for CAP. He also had V/Q scan which showed intermittent risk for PE Pt is off coumadin and he is on eliquis now. Pt was treated with IV and oral abx and he is doing much better. Pt denies any chest pain or sob or any fever cough1 Pt c/o acute ons et of left lateral area chest pain with productive cough with sob since two days ago and he coughs up some blood this morning Pt states that chest pain is worse when he takes deep breath Pt denies any recent travel or bedrest. Pt just had benign chest ct 3 months ago. Pt states that the left lateral chest pain is worse with deep breathing Pt denies any calf pain. He denies any injury anxiety1 Pt has anxiety a nd depression ,Pt takes celexa and xanax PRn and doing ok. Pt denies any suicidal or homicidal thought. Pt denies any crying spells pain Pt has chronic l ow back pain pt denies any worsening pain Pt denies any loss of bladder control. Pt has mild neuropathy symptoms. Pt takes percocet and soma and doing ok . Pt failed neurontin. Pt denies any saddle area paresthesia tubular adenoma1 Pt had colonosc opy done 2018 which showed tubular adenoma. Pt supposes to repeat colonoscopy 2021. He had negative colonguard 2020 and GI wont do colonoscopy this year. He denies any GI issue. pain Pt has chronic l ow back pain pt denies any worsening pain Pt denies any loss of bladder control. Pt has mild neuropathy symptoms. Pt takes percocet and soma and doing ok . Pt failed neurontin. Pt denies any saddle area paresthesia anxiety1 Pt has anxiety a nd depression ,Pt takes celexa and xanax PRn and doing ok. Pt denies any suicidal or homicidal thought. Pt denies any crying spells glucose1 Pt has mildly hi gh glucose Pt denies any polyuria, polydipsia. lung nodule1 Pt has history o f lung nodule Pt still smokes Pt denies any hemoptysis, worsening sob or cough. Pt still smoking uric acid1 Pt has high uric acid Pt denies any gout. Pt only takes allopurinol once per day instead BID HLP Pt takes zocor, feno and vascepa. His lipid is ok. His tG is borderline high Pt denies any myalgia phos1 Pt has high phos and low calcium and high PTH. Pt denies any bone pain or muscle weakness. folate Pt has low folat e. renal disease1 Pt has stage III renal disease pt has normal UO Pt has proteinuria. Pt sees [facility] inspector glucose1 Pt has high gluc ose Pt denies any polyuria, polydipsia HLP Pt has HLP .Pt t akes zocor, feno and vascepa. Pt denies any myalgia renal Pt has chronic s table stage III renal disease Pt has normal UO pt is seeing nephrology Pt had lab done recently which showed Dm, high kcl and high phos and high PTH pain1 Pt has chronic l ow back pain pt denies any worsening pain Pt denies any loss of bladder control. Pt has mild neuropathy symptoms. Pt takes percocet and soma and doing ok . Pt failed neurontin. Pt denies any saddle area paresthesia anxiety Pt has anxiety a nd depression ,Pt takes celexa and xanax PRn and doing ok. Pt denies any suicidal or homicidal thought. Pt denies any crying spells pain Pt has chronic l ow back pain pt denies any worsening pain Pt denies any loss of bladder control. Pt has mild neuropathy symptoms. Pt takes percocet and soma and doing ok . Pt failed neurontin. Pt denies any saddle area paresthesia anxiety Pt has anxiety a nd depression ,Pt takes celexa and xanax PRn and doing ok. Pt denies any suicidal or homicidal thought. Pt denies any crying spells HTN Pt has HTN Pt ta kes lisinopril and toprol and his bp is ok. Pt has paroxymal afib Pt denies any chest pain or sob Pt has cardiomyopathy with ICD ,Pt sees cardiology Pt takes coumadin. colon Pt had colonosco py done 2018 and he had tubular adenoma. Pt was told to repeat in 3 years. Pt denies any lower GI issue. Pt had negative colonguard 3 months ago pain Pt has chronic l ow back pain pt denies any worsening pain Pt denies any loss of bladder control. Pt has mild neuropathy symptoms. Pt takes percocet and soma and doing ok . Pt failed neurontin. anxiety Pt has anxiety a nd depression ,Pt takes celexa and xanax PRn and doing ok. Pt denies any suicidal or homicidal thought. Pt denies any crying spells anxiety1 Pt has anxiety a nd depression ,Pt takes celexa and xanax PRn and doing ok. Pt denies any suicidal or homicidal thought. Pt denies any crying spells pain Pt has chronic l ow back pain pt denies any worsening pain Pt denies any loss of bladder control. Pt has mild neuropathy symptoms. Pt takes percocet and soma and doing ok . Pt failed neurontin. pain Pt has chronic l ow back pain pt denies any worsening pain Pt denies any loss of bladder control. Pt has mild neuropathy symptoms. Pt takes percocet and soma and doing ok . Pt failed neurontin. COPD1 Pt has COPD .P t akes atrovent and albuterol PRN .pt on average uses albuterol 1-2 per week. Pt denies any hemoptysis, acute sob or cough gout Pt has gout .Pt started to take allopurinol since last month Pt denies any acute gout attack anxiety1 Pt has anxiety a nd depression ,Pt takes celexa and xanax PRn and doing ok. Pt denies any suicidal or homicidal thought. Pt denies any crying spells pain Pt has chronic l ow back pain pt denies any worsening pain Pt denies any loss of bladder control. Pt has mild neuropathy symptoms. Pt takes percocet and soma and doing ok . Pt failed neurontin. anxiety1 Pt has anxiety a nd depression ,Pt takes celexa and xanax PRn and doing ok. Pt denies any suicidal or homicidal thought. Pt denies any crying spells gout1 Pt has elevated uric acid level Pt denies any active gout Pt has not started allopurinol yet HLP Pt has HLP Pt ta kes zocor, feno and vascepa Pt denies any myalgia .pt needs refill anemia1 Pt has history o f mild anemia, which resolved. his iron and ferritin is ok. Pt denies any bleeding pain Pt has chronic l ow back pain pt denies any worsening pain Pt denies any loss of bladder control. Pt has mild neuropathy symptoms. Pt takes percocet and soma and doing ok . Pt failed neurontin. anxiety1 Pt has anxiety a nd depression ,Pt takes celexa and xanax PRn and doing ok. Pt denies any suicidal or homicidal thought. Pt denies any crying spells gout1 Pt has recurrent gout attack. Pt used to take allopurinol but has not taken for a while. he has gout attack once every several months. Pt has some colchicine from nephrology. Pt states that he feels that he has acute mild attack around base of his right big toe now for several days. Pt denies any redness or warmth or swelling physical Pt needs annual physical. Pt has multiple medical issue Pt has chronic back pain and anxiety and depression Pt takes celexa, percocet, soma and xanax PRn and doing ok. Pt denies any suicidal or homicidal thought, Pt denies any crying spells. Pt has HLP Pt takes Vascepa, zocor and feno and his lipid profile is improving. Pt has chronic renal disease. Pt sees nephrology. Pt has normal UO. Pt has DM Pt denies any neuropathy .Pt sees endo. Pt denies any polyuria, polydipsia. Pt had lab done recently which showed borderline high kcl and anemia. pt denies any bleeding. Pt has COPD. Pt takes atrovent and ventolin PRn and doing ok. pt uses albuterol 2-3 per month. Pt denies any acute sob. Pt denies any hemoptysis. Pt has history of gout Pt used to take allopurinol but he has not taken it for long time .Pt had one gout attack two months ago. Pt denies any acute joint pain pain Pt has chronic l ow back pain pt denies any worsening pain Pt denies any loss of bladder control. Pt has mild neuropathy symptoms. Pt takes percocet and soma and doing ok . Pt failed neurontin. anxiety1 Pt has anxiety a nd depression ,Pt takes celexa and xanax PRn and doing ok. Pt denies any suicidal or homicidal thought. Pt denies any crying spells anemia1 Pt has mild anem ia with normal MCV. Pt denies any GI blood loss. Pt just had lab done by cardiology and also nephrology. Pt denies any fatigue or sob vitamin D Pt has low vitam in D Pt takes calcium and D and weekly D. Pt denies any fx May-14-2021 anxiety1 Pt has anxiety a nd depression ,Pt takes celexa and xanax PRn and doing ok. Pt denies any suicidal or homicidal thought. Pt denies any crying spells pain Pt has chronic l ow back pain pt denies any worsening pain Pt denies any loss of bladder control. Pt has mild neuropathy symptoms. Pt takes percocet and soma and doing ok . Pt failed neurontin. pain Pt has chronic l ow back pain pt denies any worsening pain Pt denies any loss of bladder control. Pt has mild neuropathy symptoms. Pt takes percocet and soma and doing ok . Pt failed neurontin. anxiety Pt has anxiety a nd depression ,Pt takes celexa and xanax PRn and doing ok. Pt denies any suicidal or homicidal thought. Pt denies any crying spells anxiety Pt has HLP Pt ta kes vascepa, feno and zocor. Pt denies any myalgia. His lipid profile is ok. lung nodule1 Pt had another c hest CT done by pulmonary and he has mucous plug. No lung CA pain Pt has chronic l ow back pain pt denies any worsening pain Pt denies any loss of bladder control. Pt has mild neuropathy symptoms. Pt takes percocet and soma and doing ok . HLP Pt has HLP .Pt t akes Vascepa, zocor and feno. his TG is mildly high Pt denies any myalgia renal pt has chronic r enal disease. Pt has borderline high KCL. Pt denies any chest pain or palpitation. He has normal ROM. he also sees endo for DM Anemia1 pt has mild anem ia. MCV ok Pt denies any blood loss. Pt denies any fatigue or dizziness or chest pain anxiety Pt has anxiety a nd depression ,Pt takes celexa and xanax PRn and doing ok. Pt denies any suicidal or homicidal thought. Pt denies any crying spells pain Pt has chronic l ow back pain pt denies any worsening pain Pt denies any loss of bladder control. Pt has mild neuropathy symptoms. Pt takes percocet and soma and doing ok . anxiety1 Pt has anxiety a nd depression ,Pt takes celexa and xanax PRn and doing ok. Pt denies any suicidal or homicidal thought. Pt denies any crying spells HLP Pt takes vascepa , zocor, feno. Pt denies any myalgia. lung nodule1 Pt just saw pulm onary and will do another chest CT instead of bronchoscopy for now. Pt denies any hemoptysis HTN Pt has HTN .Pt t akes lisinopril and toprol and his bp is stable lung nodule1 Pt has stable fredrick ng nodule. Pt denies any hemoptysis, worsening sob or cough trachea lesion1 Pt has tracheal lesion. Radiologist recommended bronchoscopy pain Pt has chronic l ow back pain pt denies any worsening pain Pt denies any loss of bladder control. Pt has mild neuropathy symptoms. Pt takes percocet and soma and doing ok . anxiety1 Pt has anxiety a nd depression ,Pt takes celexa and xanax PRn and doing ok. Pt denies any suicidal or homicidal thought. Pt denies any crying spells COPD1 Pt has COPD Pt c ontinues to smoke Pt takes atrovent daily pt uses albuterol 1-2 per week Pt denies any acute sob Pt denies any hemoptysis cough1 Pt has chronic c ough due to smoking and COPD Pt notices slightly worsening cough lately Pt denies any worsening sob or any fever. Pt denies any loss of taste or smell pt denies any sick contact or exposure to COVID pain Pt has chronic l ow back pain pt denies any worsening pain Pt denies any loss of bladder control. Pt has mild neuropathy symptoms. Pt takes percocet and soma and doing ok . anxiety1 Pt has anxiety a nd depression ,Pt takes celexa and xanax PRn and doing ok. Pt denies any suicidal or homicidal thought. Pt denies any crying spells anxiety1 Pt has anxiety a nd depression ,Pt takes celexa and xanax PRn and doing ok. Pt denies any suicidal or homicidal thought. Pt denies any crying spells pain Pt has chronic l ow back pain pt denies any worsening pain Pt denies any loss of bladder control. Pt has mild neuropathy symptoms. Pt takes percocet and soma and doing ok . renal Pt has chronic r enal disease. Pt has bunny with nephrology tomorrow. Pt has normal UO HLP Pt takes zocor, feno and Vascepa. Pt denies any myalgia. Pt needs vascepa refilled. pain Pt has chronic l ow back pain pt denies any worsening pain Pt denies any loss of bladder control. Pt has mild neuropathy symptoms. Pt takes percocet and soma and doing ok . anxiety1 Pt has anxiety a nd depression ,Pt takes celexa and xanax PRn and doing ok. Pt denies any suicidal or homicidal thought. Pt denies any crying spells pain Pt has chronic l ow back pain pt denies any worsening pain Pt denies any loss of bladder control. Pt has mild neuropathy symptoms. Pt takes percocet and soma and doing ok . anxiety1 Pt has anxiety a nd depression ,Pt takes celexa and xanax PRn and doing ok. Pt denies any suicidal or homicidal thought. Pt denies any crying spells pain Pt has chronic l ow back pain pt denies any worsening pain Pt denies any loss of bladder control. Pt has mild neuropathy symptoms. Pt takes percocet and soma and doing ok . anxiety1 Pt has anxiety a nd depression ,Pt takes celexa and xanax PRn and doing ok. Pt denies any suicidal or homicidal thought. Pt denies any crying spells PTH Pt has high PTH Pt talk to his endo who told him to discuss it with his nephrology Pt does have chronic renal disease COPD1 PT has COPD. Pt still smoking ,Pt uses atrovent daily Pt uses ventolin on average twice per day Pt denies any hemoptysis, worsening sob or cough pain Pt has chronic l ow back pain pt denies any worsening pain Pt denies any loss of bladder control. Pt has mild neuropathy symptoms. Pt takes percocet and soma and doing ok . anxiety1 Pt has anxiety a nd depression ,Pt takes celexa and xanax PRn and doing ok. Pt denies any suicidal or homicidal thought. Pt denies any crying spells anxiety1 Pt has HLP Pt ta kes zocor, feno and vascepa. Pt denies any myalgia PTH Pt has high PTH and low D and low calcium. Pt started vitamin D last month Pt denies any bone pain calcium1 Pt has true hypo calcemia. His PTH is high and D is low. CODP1 Pt has emphysema . Pt takes atrovent daily. Pt uses albuterol 1-2 per month Pt denies any hemoptysis pain Pt has chronic l ow back pain pt denies any worsening pain Pt denies any loss of bladder control. Pt has mild neuropathy symptoms. Pt takes percocet and soma and doing ok . Pt failed neurontin anxiety1 Pt has anxiety a nd depression ,Pt takes celexa and xanax PRn and doing ok. Pt denies any suicidal or homicidal thought. Pt denies any crying spells pain Pt has chronic l ow back pain pt denies any worsening pain Pt denies any loss of bladder control. Pt has mild neuropathy symptoms. Pt has anxiety and depression ,Pt takes celexa and xanax PRn and doing ok. Pt denies any suicidal or homicidal thought renal1 Pt has stage III renal disease with proteinuria pt sees nephrology Pt has normal UO. DM Pt sees endo. Hi s A1c is improving Pt denies any polyuria, polydipsia. Pt denies any neuropathy symptoms HLP Pt takes vascepa , feno and also zocor. His TG is improving Pt denies any myalgia low daniel Pt has low calci um. His phosphorus is ok now Physical Pt needs annual physical, pt has chronic low back pain Pt has DDD Pt takes percocet and soma and doing ok. pt denies any loss of bladder control pt has mild sciatica and leg numbness. Pt has DM. Pt takes tresiba 20 units at bedtime and amaryl. His glucose is around 140s Pt denies any polyuria, polydipsia pt denies any neuropathy. Pt has paroxymal afib, Pt sees cardiology Pt is on coumadin. Pt has history of real CA with melanoma Pt sees oncology and urology. pain Pt has chronic b ack pain pt denies any worsening pain, Pt denies any loss of bladder control. Pt failed NSAID and ultram. Pt takes percocet and soma PRn and doing ok. anxiety1 Pt has anxiety a nd depression. Pt takes celexa and xanax PRN and doing ok, Pt denies any suicidal or homicidal thought HLP Pt has HLP Pt ta kes zocor and feno. his TG is high. Pt does not drink excessive amount of alcohol Pt denies any myalgia phosphorus1 Pt has mild high phosphorous and also low calcium , Pt has chronic renal disease. Pt has proteinuria Pt sees nephrology. Pt has normal UO pain Pt has chronic b ack pain pt denies any worsening pain, Pt denies any loss of bladder control. Pt failed NSAID and ultram. Pt takes percocet and soma PRn and doing ok. anxiety1 Pt has anxiety a nd depression Pt takes celexa and xanax PRn and doing ok. Pt denies any suicidal or homicidal thought Pt denies any crying spells DM Pt takes amaryl and he sees endo pt has bunny with endo in july. His A1c is 8.8 and his fating glucose is over 200 .Pt denies any polyuria, polydipsia DM pt has DM pt no longer take insuline Pt is out of insulin but he has not seen his endo for a while his BG is around 150s. Pt is on amaryl only Pt denies any polyuria, polyuria. Pt denies any neuropathy pain1 Pt has chronic b ack pain pt denies any worsening pain, Pt denies any loss of bladder control. Pt failed NSAID and ultram. Pt takes percocet and soma PRn and doing ok. anxiety1 Pt has anxiety a nd depression Pt takes celexa and xanax PRn and doing ok. Pt denies any suicidal or homicidal thought Pt denies any crying spells HLP Pt takes zocor a nd feno Pt denies any myalgia Pt does not drink alcohol. afib Pt has paroxymal afib. Pt takes coumadin, metoprolol. Pt denies any chest pain or palpitation Pt just saw cardiology and he supposes to do lab by cardiology pain Pt has chronic b ack pain pt denies any worsening pain, Pt denies any loss of bladder control. Pt failed NSAID and ultram. Pt takes percocet and soma PRn and doing ok. anxiety1 Pt has anxiety a nd depression Pt takes celexa and xanax PRn and doing ok. Pt denies any suicidal or homicidal thought Pt denies any crying spells HTN Pt has HTn Pt ta kes lisinopril. His BP is ok. Pt is amaryl for DM Pt sees endo for DM. His glucose is around 150s pain Pt has chronic b ack pain pt denies any worsening pain, Pt denies any loss of bladder control. Pt failed NSAID and ultram. Pt takes percocet and soma PRn and doing ok. anxiety1 Pt has anxiety a nd depression Pt takes celexa and xanax PRn and doing ok. Pt denies any suicidal or homicidal thought Pt denies any crying spells tobacco1 Pt denies any he moptysis, worsening sob or cough. Pt just had LDCT done COPD1 Pt has copd. Pt takes atrovent and albuterol PRN. pt uses albuterol once or twice every other day Pt denies any hemoptysis anxiety1 Pt has anxiety a nd depression Pt takes celexa and xanax PRn and doing ok. Pt denies any suicidal or homicidal thought Pt denies any crying spells chronic pain Pt has chronic b ack pain pt denies any worsening pain, Pt denies any loss of bladder control. Pt failed NSAID and ultram. Pt takes percocet and soma PRn and doing ok. HLP Pt takes zocor a nd feno. His lipid profile is ok. His TG is mildly high, which is chronic and improving Pt takes fish oil also Pt denies any myalgia tobacco1 Pt smokes more t [place] 40 pack year tobacco Pt still smoking pt denies any hemoptysis, worsening sob or cough. chronic pain1 Pt has chronic b ack pain pt denies any worsening pain, Pt denies any loss of bladder control. Pt failed NSAID and ultram. Pt takes percocet and soma PRn and doing ok anxiety1 Pt has anxiety a nd depression Pt takes celexa and xanax PRn and doing ok. Pt denies any suicidal or homicidal thought Pt denies any crying spells HLP. Pt has HLP. Pt s tarted low dose feno in addition to zocor back in November Pt needs lab done by nephrology soon Pt denies any myalgia renal CA Pt is s/p right partial nephrectomy and cryo on left side. Pt never did chemo and radiation. Pt sees Dr Bajwa yearly for prostate and renal CA follow up skin1 Pt had melanoma removed left forearm Pt supposes to see eye doctor and Dr. Leonard for follow up chronic pain1 Pt has chronic l ow back pain Pt has DDD Pt states that flank pain resolved. renal ultrasound and CT lumbar benign Pt denies any loss of bladder control. Pt denies any worsening pain pt denies any urinary symptoms anxiety1 Pt has chronic a nxiety and depression. Pt takes celexa and xanax PRn and doing ok Pt denies any suicidal or homicidal thought HLP Pt is on zocor a nd feno now. pt denies any myalgia chronic pain1 Pt has chronic l ow back pain Pt denies any worsening pain Pt denies any loss of bladder control. pt notices pain getting worse. Pt unable to do MRi due to defibrillator. Pt notices sharp pain left flank area for the past several days. Pt denies any sciatica. pt has history of left kidney cancer s/p cryotherapy. Pt denies any urinary symptoms Pt denies any fever anxiety1 Pt has anxiety a nd depression Pt takes celexa and xanax PRn and dong ok Pt denies any suicidal or homicidal thought. Pt denies any crying spells HLP Pt has high TG P t takes zocor. Pt denies any myalgia renal1 Pt has stage III renal disease and proteinuria pt sees nephrology. pt has normal UO DM Pt sees endo and he is on insulin and amaryl. His A1c is better .Pt has bunny with endo tomorrow. Pt has mild neuropathy symptoms chronic pain1 Pt has chronic l ow back pain due to DDD. Pt denies any worsening pain Pt denies any loss of bladder control. pt takes percocet and soma and doing ok. Pt failed NSAID and ultram anxiety1 Pt has chronic a nxiety and depression Pt takes celexa and xanax PRn and doing ok Pt denies any suicidal or homicidal thought afib1 Pt has chronic p aroxymal afib. Pt takes toprol. Pt takes coumadin, which is managed by cardiology pt denies any chest pain or sob anxiety1 Pt has chronic a nxiety and depression Pt takes celexa and xanax PRn and doing ok. pt denies any suicidal or homicidal thought chronic pain1 Pt has chronic l ow back pain Pt denies any worsening pain pt denies any loss of bladder control. Pt has DDD anxiety1 Pt has chronic a nxiety and depression Pt takes celexa and xanax and doing ok Pt denies any suicidal or homicidal thought. Pt denies any crying spells COPD1 Pt has COPD. Pt takes Atrovent and ventolin PRN. Pt uses ventolin 1-2 per week Pt denies any hemoptysis, worsening sob or coughing. chronic pain Pt has chronic l ow back pain pt denies any worsening pain pt denies any loss of bladder control. Pt takes percocet and soma and doing ok Pt failed NSAID and ultram HLP Pt takes zocor a nd he is on OTC fish oil now per cardiology. Pt is on coumadin. Pt just seen cardiology and everything is the same. Pt is on coumadin for paroxsymal afib. Pt denies any chest pain or headache DM Pt just seen Dr. Hernandez(endo) and he is on Tresiba 20 units daily now in addition to amaryl. His BG is around 150-180 Pt denies any hypoglycemia. anxiety1 Pt has chronic a nxiety and depression Pt takes celexa, and xanax Pt denies any suicidal or homicidal thought Pt denies any crying spells pain Pt has chronic l ow back pain Pt denies any worsening pain Pt denies any loss of bladder control. Pt has DDD. Pt failed NSAID and ultram Pt wants extra soma per day Physical Pt needs annual physical. Pt has chronic low back pain Pt denies any worsening pain Pt denies any loss of bladder control. Pt has DDD Pt takes percocet PRN for pain Pt also has anxiety and depression .Pt takes celexa and xanax PRn and doing ok Pt denies any suicidal or homicidal thought Pt denies any crying spells. Pt has chronic proximal afib with cardiomyopathy. Pt sees cardiology. Pt takes coumadin. Pt denies any bleeding. Pt has HLP. Pt takes amaryl. His BG is around 150s. Pt denies any polyuria, polydipsia. Pt also uses atrovent and ventolin PRN for emphysema ,Pt denies any acute sob Pt denies any hemoptysis, sob or cough. Pt denies any other complaints chronic pain Patient has balance bridge assembler gallo low back pain. y. Patient complained of mild sciatica with leg numbness and tingling. Patient denies any loss of bowel bladder control. Patient failed NSAID and tramadol. Patient has 6 out of 10 pain daily. Patient complained of sharp pain. Patient denies any worsening pain. Pt takes percocet and soma and doing ok anxiety1 Patient has balance bridge assembler gallo anxiety and depression. Patient denies any suicidal homicidal thoughts. Patient denies any crying spells. Patient takes celexa and Xanax and doing okay. Patient noticed more motivation. Patient denies any hopelessness. DM Pt has DM, Pt ta kes amaryl 2 mg daily .His glucose and A1c are getting worse Pt denies any polyuria, polydipsia. pt denies any neuropathy symptoms HLP Pt takes zocor, Pt has high tG ,Pt is on fish oil by cardiology but he does not know the name ,Pt denies any myalgia chronic pain1 Pt has chronic l ow back pain ,Pt has mild sciatica Pt has mild leg numbness. Pt denies any worsening pain Pt denies any loss of bladder control .Pt failed NSAID and ultram anxiety1 Pt has chronic a nxiety and depression. Pt takes celexa and xanax and doing ok Pt denies any suicidal or homicidal thought chronic pain1 Patient has balance bridge assembler gallo low back pain. Patient complained of mild sciatica with leg numbness and tingling. Patient denies any loss of bowel bladder control. Patient failed NSAID and tramadol. Patient has 6 out of 10 pain daily. Patient complained of sharp pain. Patient denies any worsening pain. anxiety1 Pt has chronic a nxiety and depression, Pt takes celexa and xanax PRN and doing ok Pt denies any suicidal or homicidal thought Pt denies any crying spells colon1 Pt needs repeat colonoscopy. Pt denies any GI issue or bleeding Pt denies any weight loss DM Pt has DM. Pt ta kes amaryl. Pt had lab done which showed high fasting glucose. Pt states that he did not fast for the lab. Pt denies any polyuria, polydipsia DM1 Pt has DM. pt is on amaryl. Pt states that his BG is around 150s. Pt denies any hypoglycemia Pt denies any polyuria, polydipsia Pt denies any neuropathy symptoms back pain1 Patient has balance bridge assembler gallo low back pain. Patient complained of mild sciatica with leg numbness and tingling. Patient denies any loss of bowel bladder control. Patient failed NSAID and tramadol. Patient has 6 out of 10 pain daily. Patient complained of sharp pain. Patient denies any worsening pain. HLP Pt is taking zoc or and fish oil per cardiology Pt denies any myalgia. Pt is trying low fat and low carb diet anxiety1 Patient has balance bridge assembler gallo anxiety and depression. Patient denies any suicidal homicidal thoughts. Patient denies any crying spells. Patient takes celexa and Xanax and doing okay. Patient noticed more motivation. Patient denies any hopelessness. HTN Pt has HTn. Pt t akes lisinopril and his BP is stable. Pt needs refills. renal disease1 Pt has stage III renal disease. Pt just seen [place] inspector. Pt has hypertensive renal disease. Pt has normal urine output chronic pain1 Pt has chronic l ow back pain. Pt denies any worsening pain ,Pt denies any loss of bladder control. Pt takes soma and percocet and doing ok. Pt denies any loss of bladder control anxiety1 Pt has chronic a nxiety and dperession. Pt denie sany suicidal or homicidal thought. Pt denies any crying spells. Pt takes celexa and xanax PRN and doing ok. Pt denies any crying spells HLP Pt needs zocor r efilled Pt denies any myalgia anxiety1 Pt has chronic a nxiety an depression Pt takes celexa and xanax PRn and doing ok Pt denies any suicidal or homicidal thought back apin1 Pt has chronic l ow back pain. Pt denies any worsening pain pt denies any loss of bladder control. Pt failed NSAID and ultram HTN Pt takes lisinop ril and toprol. Bp is borderline today Pt is on coumadin also COPD1 Pt has copd. pt takes atrovent and neb and albuterol. Pt feels frequent sob and he has been coughing with yellow phlegm, some chest pain with coughing, mild sob. subjective fever and chill for one week. His lactation consultant ordered a chest x ray and told him no pneumonia. Pt denies any acute sob. Pt denies any urinary symptoms or flank pain DM Pt has DM. Pt un able to tolerate metformin. Pt is on amaryl now. His BG is around 130s. Pt denies any hypoglycemia pt denies any polyuria, polydipsia, Pt has nephropathy and he sees nephrology back pain1 Pt has chronic s evere low back pain. pt denies any worsening pain. Pt denies any loss of bladder control. Pt failed NSAID and ultram, pt has 7/10 pain Pt has mild sciatica anxiety1 Pt has anxiety a nd depression. Pt takes celexa and xanax PRn and doing ok. Pt denies any suicidal or homicidal thought. pt denies any crying spells COPD1 Pt has COPD with acute exacerbation. Pt went to [place] 7 days ago and he was drenched in the rain. He developed symptoms 3 days ago. he c/o worsening sob and coughing with green phlegm. Pt denies any chill. Pt did have fever as high as 102 two nights ago but no fever during last two days. Pt denies any calf pain tobacco1 Pt had benign LD CT. pt still smoking about 1/2 PPD now anxiety1 Pt has chronic a nxiety and depression and he takes celexa and xanax PRn and doing ok. pt denies any suicidal or homicidal thought back pain1 Pt has chronic l ow back pain Pt denies any worsening pain Pt denies any loss of bladder control Pt takes percocet and soma PRn for pain. Pt failed NSAID HLP pt is on zocor a nd fish oil. Pt is on low fat and low carb diet back pain1 Pt has chronic l ow back pain pt denies any worsening pain or loss of bladder control. Pt is on percocet soma. pt failed ultram and nSAID anxiety1 Pt has anxiety a nd depression. Pt takes celexa and xanax PRN and doing ok. pt denies any suicidal or homicidal thought tobacco1 Pt still smokes pt needs LDCT Pt has COPD. Pt use atrovent and albuterol PRN pt uses albuterol about once per day pt denies any acute sob HLP Pt has HLP Pt martin s high TG and HLP Pt is on zocor Pt just seen cardiology who stopped his lopid and put him on fish oil. Pt is not very compliant with low carb and low carb diet anxiety1 Pt has chronic a nxiety and depression Pt takes celexa and xanax PRn and doing ok. pt denies any suicidal or homicdial thought DM1 Pt has DM Pt danni es amaryl 2 mg BID and his BG is around 140s, which is better. Pt denies any polyuria, polydipsia. chronic pain Pt has chronic l ow back pain due to DDD Pt denies any worsening pian. Pt denies any loss of bladder control. Pt has 7/10 pain Pt failed NSAID and ultram DM PT takes amaryl only for DM. His a1c is 7.5. His Bg is around 150s. Pt denies any hypoglycemia renal1 Pt has proteinur ia and also low renal. His renal function is slightly worse. pt sees nephrology HLP Pt has HLP Pt ta kes lopid and zocor. His TG is mildly high His TC is ok Pt denies any myalgia tobacco1 Pt is on 14 mg p atch. pt smokes about 1-2 per day back apin1 Pt has chronic l ow back pain. pt denies any worsening pain. pt has DDD. Pt denies any loss of bladder control. Pt uses percocet and soma and lidocaine patch and working ok chronic pain Pt hs chronic se stephon low back pain. Pt denies any worsening pain. Pt denies any loss of bladder control. Pt has 7/10 pain anxiety1 Pt has chronic a nxiety and depression Pt takes celexa and xanax PRn and doing ok Pt denies any suicidal or homicidal thought tobacco1 Pt smokes 1/2 PP D. Pt has sob. Pt has COPD. Pt wants to quit smoking Physical Pt needs annual physical pt has chronic low back pain. Pt has severe DDD. Pt has mild sciatica and leg numbness. Pt has chronic anxiety and depression. Pt takes celexa and xanxa PRN and doing ok. Pt denies any suicidal or homicidal thought. Pt denies any crying spells. Pt also has CAD with afib with cardiomyopathy. Pt takes coumadin and he sees cardiology. ,Pt denies any chest pain, Pt also has poorly controlled lipid profile. Pt takes zocor and lopid. ,Pt denies any myalgia. Pt denies any active complaints today. anxiety1 Pt has DM Pt danni es amaryl his BG is around 120s. Pt denies any polyuria, polydipsia Pt deniesa ny neuorpathy symptoms Pt denies any hypglycemia chronic pain1 Pt has chronic l ow back pain. pt has 7/10 pain. Pt denies any wosrneing pain,. Pt denies any loss of bladder control. Pt takes pecocet and soma for pain chronically. .Pt failed NSAID anxiety1 Pt has chronic a nxiety and depression Pt takes celexa and xanax PRN and doing ok. Pt denies any suicidal or homicidal thought. Pt denies any cyring spells HLP Pt atkes zocor a nd lopid. Pt dneies any myalgia. Pt has poorly controlled lipid proifle due ot poor diet Gout1 Pt has gout. Pt take allopurinol. Pt has not had any gouty attacks. sick1 Pt c/o productiv e coughing with green phlegm for 2 weeks. Pt denies any worsening sob. Pt denies any chest pain. Pt denies any fever Pt denies any calf pain or any recent travle or bedrest sick1 Pt c/o feeling s ick overall with sore throat, productive coughing with green phlegm, mild worsening sob, for one week. Pt denies any recent travel or bedrest. Pt denies any calf pain. Pt uses atrovent and venotlin at baseline. Pt denie sany acute sob chronic pain Pt has chornic l ow back apin Pt has history of low back surgery Pt denies any worsening pain. Pt denies any loss of bladder control. Pt has 7/10 pain anxiety1 Pt has chronic a nxiety and depression. Pt takes celexa and xanxa PRn and doing ok. Pt denies any suicidal or homicidal thought. Pt denies any crying spells HTN Pt takes lisinop ril 40 mg daily and also metoprolol. His BP is stable today back pain1 Pt has chronic l ow back pain due to DDD Pt denies any worsening pain. Pt deneis any loss of bladder control anxiety1 Pt has chronic a nxiety and depression Pt takes celexa and xanax PRn and doing ok pt denies any suiciadl or homicidal thought. Pt denies any cyring spells COPD1 Pt has COPD pt t esme michaels and he uses albuterol PRn. Pt uses albuterol 1-[address] chest Ct was ok recently HTN Pt takes lisinor il 40 mg from [place]. His BP is still high today. Pt denies any chest pain or headache Pt has chronic afib and he uses coumadin daily anxiety1 Pt has chronic a naxiety and depression. Pt takes celexa and xanax and doing ok. Pt denies any suicidal or homicidal thought. Pt denies any cyring spells chronic pain Pt has chronic l ow back pain Pt denies any worsening ariadna or any loss o bladder control Pt takes soma also HTn Pt takes lisinop ril and his BP is borderline today. Pt denies any chest pain or headache DM Pt takes amaryl 3 mg daily and his BG is around 130s. Pt denies any polyuria, polydipsia HLP Pt has HLp. Pt t akes zocor and lopid. Pt denies any myalgia back pain1 Pt has chronic l ow back pain. Pt deneis any wrosening pain. Pt deneis any loss of bladder control. Pt has 7./10 pain anxiety1 Pt has chronic a nxiety and depression. Pt takes celexa and xanax and doing ok. Pt denies any suicidal or homicidal thought. pt denies any crying spells hep C Pt has hep C scr eening. chronic pain1 Pt has chronic l ow back pain . Pt denies any worsening pain. Pt denies any loss of bladder control Afib1 Pt is on coumadi n. Pt has cardiomyopathy. Pt takes lisinopirl, metoprolol and doxazosin. Pt denies any chest pain or sob anxiety1 Pt has chronic a nxiety and depression. Pt takes celexa and xanax and he is doing ok. pt denies any suicidal or homicidal thought. Pt has not been taking celexa daily. He is noncompliant. Pt does have depression HLP Pt takes zocor a nd lopid. Pt denies any myalgia. Pt is trying low fat and low carb diet anxiety1 Pt has chronic a nxiety and depression. Pt told me he heard celexa causing renal disease so he did not try it? Pt takes xanax PRN for anxiety. Pt denies any suicidal or homicidal thought. Pt has not tried celexa yet chronic pain Pt has chronic l ow back pain. Pt takes percocet for pain. Pt denies any worsening pain Pt also takes soma. Pt denies any loss of bladder control melanoma1 Pt has melanoma. pt is s/p removal. pt is seeing oncology now. Pt also has renal CA Pt is seeing Dr. Bajwa(urology) now in [place] HTN Pt has HTN. Pt t akes lisinorpil and his BP is stable melanoma1 Pt went to see p [facility] surgeon and he was diagnosed with stage 5 melanoma. Pt will have surgery in one week and he also has appointment with oncology next week. anxiety1 Pt has chronic a nxiety Pt denies any depression or any suicidal thought. Pt is very anxious about his melanoma diagnosis and he told me [facility]. Pt wants xanax. Pt does not want SSRIs pt does have PTSD. Pt has nightmares back pain1 Pt has chronic l ow back pain. Pt denies any loss of bowel or bladder control. Pt denies any worsening pain. Pt takes percocet for pain PRN liver lesion1 Pt has liver les ion and renal lesion skin1 Pt notices a ski n noudle and pain for two months Pt notices pain around the area. Pt denies any drainage liver lesion1 Pt has persisten t liver lesions. Pt needs MRi again. Pt denies any abd pain back pain1 Pt has chronic l ow back pain Pt denies any worsening pain Pt denies any loss of bladder control HTN Pt has HTN and c hronic paroximal afib. Pt is on coumadin now Pt is on metoprolol and also lisinpril Pt is off cardiazem from cardiology per pt sick Pt c/o chest con gestion, productive coughing with phlegm. sinus drainage, sore throat for one week. Pt failed OTC meds Pt has fever as high as 101. Pt jo any GI issue. Pt feels slighlty more SOB with coughing. Pt notice some wheezing DM Pt is on 3 mg am aryl daily. Her BG is around 130s. Pt denies any polyuria, polydipsia. Pt denies any hypoglycemia back pain1 Pt has chronic l ow back pain. Pt denies any worsening pain. Pt denies any loss of bladder control. Pt takes soma and percocet for pain and doing ok HTN Pt takes lisinor pil. Pt still has plenty of pills left. His BP is borderline today back pain1 Pt has chronic l ow back pain pt denies any worsening pain. Pt denies any loss of bladder control. Pt takes pecocet and soma and doing ok. Pt denies any worsening pain Afib Pt is on cardiaz em and metoprolol and lisinopirl. Pt is on coumadin. Pt denies any chest pain or SOB. Pt sees cardiology liver lesion1 Pt has liver les ion. He supposes to do liver follow up in 6 months renal CA Pt had renal ult arsound done recenlty by urology and was ok per pt by urology. Pt supposes to see urology in 4 months. Pt will have prostate exam then. Pt told me urology checked his hep C which was negative DM Pt has DM. Pt ta kes amaryl. His A1c is better Pt denies any neuropathy symptoms renal1 Pt has renal dis ease and proteinuria. Pt is seeing nephrology. Pt is on lisinopril back pain1 Pt has chronic l ow back apin Pt denies any worsening pain Pt denies any loss of bowel ro bladder control HLP Pt has HLP. Pt h as high TG Pt failed different meds and exercise Pt is seeing dietian also COPD1 Pt uses atrovent and venotlin Pt uses venotlin 2-3 per day. Pt still smoking. Pt denies any acute SOB dM1 Pt has DM. Pt ta kes amaryl 3 mg daily. Pt states that his BG is around 140s. Pt denies any polyuria, polydipsia HLP Pt atkes lopid a nd zocor. Pt denies any myalgia back pain1 Pt has chronic l ow back pain. Pt denies any worsening pain. Pt denies any loss of bladder control back pain1 Pt has chronic l ow back pain with sciatica. Pttakes percocet and soma for pain and doing ok Pt denies any worsening pain tobacco Pt has long pardeep ding history of tobacco. Pt had chest Ct with is benign. renal CA Pt has renal CA. Pt is seeing urology [facility] now. Pt supposes to see his urology this Tuesday back apin1 Pt has chronic l ow back pain. Pt denies any worsening pain. Pt denie any loss of bowel or bladder control DM Pt has DM. Pt ta kes 3 mg amary and his BG is around 140s. Pt denies any numbness COPD1 Pt uses atrovent and proair. Pt uses proair 4-5 per day Pt stills moking Pt denies any acute SOB sick1 Pt c/o productiv e coughing, with phelgm. running nose. low grade fever, sore throat for one week. Pt denies any sick contact DM Pt has DM. Pt ta kse amaryl daily. Pt states that his BG is around 150s. His A1c is getting worse. HLP Pt has HLP. Pt t akes zocor and also lopid. His TG is still high. His TG has been worse in the past Pt denies any myalgia renal Pt has chronic r enal disease Pt sees nephrology HLP Pt has HLP. Pt t akes zocor and lopid and doing ok. Pt denies any myalgia back pain1 Pt has low back pain. Pt takes perccoet and soma for low back pain, Pt denies any loss of bowel or bladder control. Pt has 7/10 pain COPd1 Pt has COPD. Pt still smokes Pt uses atrovent and he uses albuterol at least 2-3 per day. Pt denies any SOB gout1 Pt takes allopur inol. Pt has not had gout attackf or seveveral years. fatt liver Pt has evidence of fatty liver on recent MRi. Pt denies any abd pain. Pt does not drink aclohol renal neoplasm Pt has liver les ion .Pt just seen GI and he had liver MRI done and was told to follow up with repeat MRI in 6 months. Pt told me no biopsy for now. renal mass1 Pt has a solid r enal mass on his kidney on the MRI recently. Pt had partial right nephrectomy and left side cryofreeze in the past. pt sees urology and also nephrology. Pt denies any flank pain liver lesion1 Pt has liver les ion. He is seeing GI and will have MRI of abdomen through GI with 1/3 of the contrast per pt tomorrow. vitami D Pt has low vitam i D back pain1 Pt has chronic l ow back pain. Pt denies any worsenign pain. Pt has 7/10 pain due to DDD. Pt denies any loss of bowel or bladder control. Pt takes soma and norco for pain and doing ok COPD Pt has COPD. Pt uses atrovent and proair. Pt still smoking. Pt uses albuterol 1-2 per day. Pt denies any acute SOB chronic pain Pt has chronic b ack apin. Pt takes norco and soma and pain is well controlled. Pt denies any worsening pain. pT has mild sciatica and leg numnbess. abd pain1 Pt states that a bd pain resolved. Pt denies any GERD symptoms. Pt is off zantac. liver lesion1 Pt has a solid l esion on the liver on ultrsaound. DM Pt takes amaryl and his A1c is better His BG is around 130s. Pt denies any polyuria, polydipsia low renal Pt has chronic l ow renal function. Pt sees hat cone inspector. His renal function is stable HLP1 Pt is on zocor a nd lopid. His TG slightly better. pt denies any myalgia abd pain1 Pt has midepigas tic sharp pain on and off for 4 weeks Pt denies any nausea, vomiting. Pt denies any relation to food Pt denies any acute pain now. Pt denies any GERD HLP Pt takes zocor a nd lopid. Pt has elevated TG. Pt is on low fat and low carb diet back pain1 Pt has chornic l ow back pain. Pt denies any loss of bowel or bladder control Pt denies any worsening pain Pt has 8/10 back pain daily DM1 Pt has diabeitc nephropathy. Pt is on lisinopirl Pt is takign amaryl 2 mg daily and his BG is around 140s Pt denies any hypoglycemia Pt denies any polyuria, polydipsia afib Pt has afib. Pt takes metoprolol, diltiazem and also he is on coumadin. He is being managed by caridology. 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 Pt just saw urology and nephrology and was told ok. Pt will follow up yearly HTN Pt has HTN. Pt t akes lisinopirl and metoprolol and diltiazem. His BP is stable back pain1 Pt has chronic l ow back pain. Pt denies any loss of bowel ro bladder control. Pt takes percocet and soma. Pt denies any worsening pain DM Pt takes amaryl dialy His BG is around 120. His A1c is better now around 7. Pt jena any numnbess. Pt denies any polyuria, polydipsia low renal Pt has stage III renal disease. Pt is seeing nephrology. Pt denies any loss of urine output HLP Pt is on zocor a nd lopid. His TG is better now. Pt denies any myalgia Pt is on low fat and low carb diet afib1 Pt recently stoo d up from couch too fast and he passed out and was admited to hospital for afib with RVR. Pt is on diltiazem and toprol currently. Pt denie sany chest pain Pt is on coumain also being managed by lactation consultant COPD Pt uses atrovent . Pt uses albuterol 1-2 per week. Pt still smoking DM Pt takes amaryl. His BG is around 150s. Pt has been eating healthier LBP Pt has chronic l ow back apin. Pt denies any loss of bowel or bladder cotnrol. Pt denies any worsening pain HTN Pt takes toprol and lisinorpil and his BP is stable Pt denies any chest pain or headache HLP Pt takes lopid a nd zocor. Pt denie any myalgia. Pt been to nutrition counseling Pt is eating better. Pt denies any myalgia physical Pt needs annual physical. Pt has DM and he takes amaryl and his Bg is around 150s. Pt has HLP. and he finally seen the DM education and dietian and he learned a lot and he has been eating better. Pt has chronic low back pain. Pt denies any sciatica. Pt denies any loss of bowel or bladder control. Pt denies any other complaints reanl disease Pt has chronic r enal disease and proteinuria. Pt sees renal physician. Pt deneis any urinary symptoms hematuria Pt has mild yuri turia on lab. Pt denies any UTI symptoms. Pt sees urology. DM Pt has DM. Pt ta kes amaryl. Pt denies any hypoglycemia. Pt has been eating poorly with sugar and sweet, etc. Pt denies any polyruia, polyuria, Pt deneis any numnbess HLP Pt has been taki ng zocor and lopid. Pt denies any myalgia. His TG is getting worse. Pt is very noncompliant with diabetic diet HTN Pt takes toprol and lisinopirl His BP is high today. Pt denies any chest pain or headache sore throat1 Pt c/o sore thro at, productive coughing and joint pain for 3 days. Pt states that he coughs up green phelgm. Pt states that he coughs so much that his stomach hurts from coughing. Pt had fever but unkown temp. Pt denies any chest pain. Pt feels slighlty SOB. Pt denies any calf pain. Pt denies any headache. Pt denies any recent travel or bedrest HLP1 Pt takes zocor a nd lopid. Pt denie sany myalgia Gout Pertinent negati ves include fever. Additional information: Pt has gout pt denies any attacks. Pt takes allopurinol dialy. HTN1 Pt takes toprol and lisinopril. his BP is slightly high today. Pt denies anychest pain back pain1 Pt has chronic l ow back pain Pt denies any loss of bowel or bladder control. Pt c/o sciatica and leg numnbess. Pt denies any worsenign pain. he wants to try to take soma QID if he may Afib1 pt is seeing car diology and he will have defribillator placement soon. Pt denies any chest pain back pain1 Pt has chronic l ow back pain. Pt deneis any loss of bowel or bladder cotnrol. Pt c/o bilateral sciatica and some numbness COPD1 Pt has mild COPD on recent PFT testing. Pt uses atrovent and albuterol. Pt has not smoked for two weeks. Pt uses albuterol BID but he gayle not feel SOB daily but he is using albuterol around the clock BID. back pain1 Pt has chronic L BP pt denies any loss of bowel ro bladder control. Pt denies any worsening pain DM1 Pt has been eati ng poorly. He eats a lot of white bread and sweet. He takes amaryl 2 mg daily. He states that his BG is around 130s. HLP1 Pt taeks zocor a nd lopid. His TG is over 300. He eats a lot of pasta and also carb daily. Pt denies any myalgia HTN1 Pt takes toprol and lisinopril. his lisinopril is on 40 mg now per cardiology. Pt has afib and he is takign coumadin now per cardiology Pt denies any chest pain or headache lumbago1 Pt has chronic l ow back pain. Pt denies any loss of bowel or bladder control. Pt has spondylosis COPD1 Pt doing atroven t and proair. Pt uses proair 1-2 per day. Pt has not done PFT yet. HLP1 Pt takes zocor a nd lopid. Pt denies any myalgia DM1 Pt states that h is BG is around 120-140. PT takes amaryl 2 mg qhs now. Pt denies any hypoglycemia COPD Pt has COPD. Pt still smoking. Pt uses atrovent and proair. pt uses proair BID. Pt feels SOB frequently, wosre with activity. Pt denies any chest pain back pain1 Pt has chronic L BP. Pt denies any loss of bowel or bladder control. Pt has 7/10 pain. Pt c/o left sciatica. Pt denies any numnbess DM1 Pt takes amaryl 2 mg. Pt states that his BG is around 130s. Pt seen ophthalmology recently and was told no retinopathy Renal CA Pt has renal CA both side. 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 Pt just seen urology [facility] recently and was told everything ok Pt told to follow up in 6 months. Proteinuria Pt has chronic p roteinuria and also low renal function. Pt is seeing nephrology Pt takes lisinopril HLP Pt takes zocor a nd lopid. Pt denies any myalgia. His TG is over 300. Pt eats a lot carb and fried stuff DM Pt has DM. Pt ta kes amaryl. His Bg is around 130s on average. His a1c is getting worse. Pt denies any polyuria, polydipsia. reanl CA Pt has renal CA. Pt had right kidney removed. Pt had cyrogenic surgery left kidney recently renal disease Pt has chronic r enal disease. Pt has proteinuria. Pt is seeing nephrology now dM Pt has DM. Pt ta kes amaryl only. Pt states that his BG is around 140s. Pt denies any hypoglcyemia HTN Pt has HTN. Pt t akes lisinoril and toprol only now. His BP is sightly high today. Pt denies any chest pain or headache back pain Additional infor mation: Pt has chronic LBP. Pt denies any loss o bowel or bladder control. MRI is nonsurgical. No acute issue. COPD Pt breathing bet ter with atrovent. Chest xray ok. Pt takes proair PRN. Pt denies any acute SOB HTN Pt is on lisinpr il and toprol now. Pt is on xarelton for chronic afib per cardiology Pt is off diltiazem COPD Pt uses ventolin daily. Pt feels better Pt had chest xray done but no report yet. Pt denies any acute SOB back pain Additional infor mation: PT has chornic LBP. Pt denies any loss of bowel or bladde rcontrol. MRI done. No result yet. DM Pt takes amary. His BG is around 120 Pt denies any hypoglycemia Instructions Date Instruction Additional Infor jocelin Stop smoking. Related to Hyper lipidemia Special diet education Related t o Body mass index (BMI) 34.0-34.9, adult Quit smoking Related to Chron ic pain syndrome Special diet education Related t o Body mass index (BMI) 34.0-34.9, adult Increase physical activity Relat ed to Chronic pain syndrome Quit smoking Related to Chron ic pain syndrome Weight management Related to Chr onic pain syndrome Special diet education Related t o Body mass index (BMI) 34.0-34.9, adult Increase physical activity Relat ed to Chronic pain syndrome Quit smoking Related to Chron ic pain syndrome Weight management Related to Chr onic pain syndrome Special diet education Related t o Body mass index (BMI) 33.0-33.9, adult Increase physical activity Relat ed to Anxiolytic dependence Quit smoking Related to Anxio lytic dependence Weight management Related to Anx iolytic dependence Special diet education Related t o Body mass index (BMI) 34.0-34.9, adult Increase physical activity Relat ed to Chronic pain syndrome Quit smoking Related to Chron ic pain syndrome Weight management Related to Chr onic pain syndrome Special diet education Related t o Body mass index (BMI) 34.0-34.9, adult Increase physical activity Relat ed to Chronic pain syndrome Quit smoking Related to Chron ic pain syndrome Weight management Related to Chr onic pain syndrome Special diet education Related t o Body mass index (BMI) 34.0-34.9, adult Increase physical activity Relat ed to Chronic pain syndrome Quit smoking Related to Chron ic pain syndrome Weight management Related to Chr onic pain syndrome Special diet education Related t o Body mass index (BMI) 34.0-34.9, adult Quit smoking Related to Chron ic pain syndrome Special diet education Related t o Body mass index (BMI) 34.0-34.9, adult Special diet education Related t o Body mass index (BMI) 33.0-33.9, adult Quit smoking Related to Encou nter for general adult medical exam w abnormal findings Weight management Related to Enc ounter for general adult medical exam w abnormal findings Special diet education Related t o Body mass index (BMI) 33.0-33.9, adult Special diet education Related t o Body mass index (BMI) 33.0-33.9, adult Quit smoking 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 Related to Hy perlipidemia Stop smoking. Related to Hyper lipidemia Follow a low sodium diet. 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 Rela wolf to Type 2 diabetes mellitus with diabetic nephropathy Stop smoking. 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 Related to Hy perlipidemia Stop smoking. Related to Hyper lipidemia Follow a low sodium diet. Relate d to Hyperlipidemia Quit smoking Related to Acute bronchitis Quit smoking Related to Chron ic pain syndrome Weight management Related to Chr onic pain syndrome Prescribed Activity and Exercise Education Related to Dietary Surveillance and Counseling Prescribed Diet Educ ation/Lifestyle Education Regarding Diet Related to Dietary Surveillance and Counseling Prescribed Activity and Exercise Education Related to Dietary Surveillance and Counseling Prescribed Diet Educ ation/Lifestyle Education Regarding Diet Related to Dietary Surveillance and Counseling Increase activity. Related to Es sential (primary) hypertension Stop smoking. Related to Essen tial (primary) hypertension Follow a low sodium diet. Relate d to Essential (primary) hypertension Prescribed Activity and Exercise Education Related to Dietary Surveillance and Counseling Prescribed Diet Educ ation/Lifestyle Education Regarding Diet Related to Dietary Surveillance and Counseling Increase activity. Related to Es sential (primary) hypertension Stop smoking. Related to Essen tial (primary) hypertension Follow a low sodium diet. Relate d to Essential (primary) hypertension Prescribed Activity and Exercise Education Related to Dietary Surveillance and Counseling Prescribed Diet Educ ation/Lifestyle Education Regarding Diet Related to Dietary Surveillance and Counseling Check blood sugar twice a day. R elated to Type 2 diabetes mellitus without complications Stop smoking. Related to Type 2 diabetes mellitus without complications Prescribed Activity and Exercise Education Related to Dietary Surveillance and Counseling Prescribed Diet Educ ation/Lifestyle Education Regarding Diet Related to Dietary Surveillance and Counseling Increase physical activity Relat ed to Chronic pain syndrome Quit smoking Related to Chron ic pain syndrome Weight management Related to Chr onic pain syndrome Prescribed Activity and Exercise Education Related to Dietary Surveillance and Counseling Prescribed Diet Educ ation/Lifestyle Education Regarding Diet Related to Dietary Surveillance and Counseling Quit smoking Related to Melan ty Weight management Related to Ana anoma Prescribed Diet Educ ation/Lifestyle Education Regarding Diet Related to Dietary Surveillance and Counseling Increase physical activity Relat ed to Malignant neoplasm of right renal pelvis Quit smoking Related to Malig nant neoplasm of right renal pelvis Prescribed Activity and Exercise Education Related to Dietary Surveillance and Counseling Diet and exercise Related to Mal ignant neoplasm of right renal pelvis Prescribed Activity and Exercise Education Related to Dietary Surveillance and Counseling Prescribed Diet Educ ation/Lifestyle Education Regarding Diet Related to Dietary Surveillance and Counseling Prescribed Activity and Exercise Education Related to Dietary Surveillance and Counseling Prescribed Diet Educ ation/Lifestyle Education Regarding Diet Related to Dietary Surveillance and Counseling Prescribed Activity and Exercise Education Related to Dietary Surveillance and Counseling Prescribed Diet Educ ation/Lifestyle Education Regarding Diet Related to Dietary Surveillance and Counseling Prescribed Activity and Exercise Education Related to Dietary Surveillance and Counseling Prescribed Diet Educ ation/Lifestyle Education Regarding Diet Related to Dietary Surveillance and Counseling Prescribed Activity and Exercise Education Related to Dietary Surveillance and Counseling Prescribed Diet Educ ation/Lifestyle Education Regarding Diet Related to Dietary Surveillance and Counseling Prescribed Activity and Exercise Education Related to Dietary Surveillance and Counseling Prescribed Diet Educ ation/Lifestyle Education Regarding Diet Related to Dietary Surveillance and Counseling Prescribed Activity and Exercise Education Related to Dietary Surveillance and Counseling Prescribed Diet Educ ation/Lifestyle Education Regarding Diet Related to Dietary Surveillance and Counseling Prescribed Activity and Exercise Education Related to Dietary Surveillance and Counseling Prescribed Diet Educ ation/Lifestyle Education Regarding Diet Related to Dietary Surveillance and Counseling Prescribed Activity and Exercise Education Related to Dietary Surveillance and Counseling Prescribed Diet Educ ation/Lifestyle Education Regarding Diet Related to Dietary Surveillance and Counseling Prescribed Activity and Exercise Education Related to Dietary Surveillance and Counseling Prescribed Diet Educ ation/Lifestyle Education Regarding Diet Related to Dietary Surveillance and Counseling Prescribed Activity and Exercise Education Related to Dietary Surveillance and Counseling Prescribed Diet Educ ation/Lifestyle Education Regarding Diet Related to Dietary Surveillance and Counseling Prescribed Activity and Exercise Education Related to Dietary Surveillance and Counseling Prescribed Diet Educ ation/Lifestyle Education Regarding Diet Related to Dietary Surveillance and Counseling Prescribed Activity and Exercise Education Related to Dietary Surveillance and Counseling Prescribed Diet Educ ation/Lifestyle Education Regarding Diet Related to Dietary Surveillance and Counseling Prescribed Activity and Exercise Education Related to Dietary Surveillance and Counseling Prescribed Diet Educ ation/Lifestyle Education Regarding Diet Related to Dietary Surveillance and Counseling Prescribed Activity and Exercise Education Related to Dietary Surveillance and Counseling Prescribed Diet Educ ation/Lifestyle Education Regarding Diet Related to Dietary Surveillance and Counseling Prescribed Activity and Exercise Education Related to Dietary Surveillance and Counseling Prescribed Diet Educ ation/Lifestyle Education Regarding Diet Related to Dietary Surveillance and Counseling Prescribed Diet Educ ation/Lifestyle Education Regarding Diet Related to Dietary Surveillance and Counseling Prescribed Activity and Exercise Education Related to Dietary Surveillance and Counseling Prescribed Activity and Exercise Education Related to Dietary Surveillance and Counseling Prescribed Diet Educ ation/Lifestyle Education Regarding Diet Related to Dietary Surveillance and Counseling Prescribed Diet Educ ation/Lifestyle Education Regarding Diet Related to Dietary Surveillance and Counseling Prescribed Activity and Exercise Education Related to Dietary Surveillance and Counseling Prescribed Activity and Exercise Education Related to Dietary Surveillance and Counseling Prescribed Diet Educ ation/Lifestyle Education Regarding Diet Related to Dietary Surveillance and Counseling Prescribed Activity and Exercise Education Related to Dietary Surveillance and Counseling Prescribed Diet Educ ation/Lifestyle Education Regarding Diet Related to Dietary Surveillance and Counseling Prescribed Activity and Exercise Education Related to Dietary Surveillance and Counseling Prescribed Diet Educ ation/Lifestyle Education Regarding Diet Related to Dietary Surveillance and Counseling Prescribed Diet Educ ation/Lifestyle Education Regarding Diet Related to Dietary Surveillance and Counseling Prescribed Activity and Exercise Education Related to Dietary Surveillance and Counseling Prescribed activity/ exercise education Related to Dietary surveillance and counseling Special diet education Related t o Dietary surveillance and counseling Physical activity counseling Rel ated to Dietary surveillance counseling Decrease caloric intake Related to Dietary surveillance counseling Physical activity counseling Rel ated to Dietary surveillance counseling Decrease caloric intake Related to Dietary surveillance counseling Physical activity counseling Rel ated to Dietary surveillance counseling Decrease caloric intake Related to Dietary surveillance counseling Physical activity counseling Rel ated to Dietary surveillance counseling Decrease caloric intake Related to Dietary surveillance counseling Physical activity counseling Rel ated to Dietary surveillance counseling Decrease caloric intake Related to Dietary surveillance counseling Dietary counseling Related to Di etary surveillance counseling Decrease caloric intake Related to Dietary surveillance counseling Dietary counseling Related to Di etary surveillance counseling Decrease caloric intake Related to Dietary surveillance counseling Decrease caloric intake Related to Dietary surveillance counseling Dietary counseling Related to Di etary surveillance counseling Dietary counseling Related to Di etary surveillance counseling Decrease caloric intake Related to Dietary surveillance counseling Dietary counseling Related to Di etary surveillance counseling Decrease caloric intake Related to Dietary surveillance counseling Dietary counseling Related to Di etary surveillance counseling Decrease caloric intake Related to Dietary surveillance counseling Dietary counseling Related to Di etary surveillance counseling Decrease caloric intake Related to Dietary surveillance counseling Dietary counseling Related to Di etary surveillance counseling Decrease caloric intake Related to Dietary surveillance counseling Dietary counseling Related to Di etary surveillance counseling Decrease caloric intake Related to Dietary surveillance counseling Decrease caloric intake Related to Dietary surveillance counseling Dietary counseling Related to Di etary surveillance counseling Decrease caloric intake Related to Dietary surveillance counseling Dietary counseling Related to Di etary surveillance counseling Decrease caloric intake Related to Dietary surveillance counseling Dietary counseling Related to Di etary surveillance counseling Decrease caloric intake Related to Dietary surveillance counseling Dietary counseling Related to Di etary surveillance counseling Decrease caloric intake Related to Dietary surveillance counseling Dietary counseling Related to Di etary surveillance counseling Decrease caloric intake Related to Dietary surveillance counseling Dietary counseling Related to Di etary surveillance counseling Decrease caloric intake Related to Dietary surveillance counseling Dietary counseling Related to Di etary surveillance counseling Decrease caloric intake Related to Dietary surveillance counseling Decrease caloric intake Related to Dietary surveillance counseling Dietary counseling Related to Di etary surveillance counseling Decrease caloric intake Related to Dietary surveillance counseling Dietary counseling Related to Di etary surveillance counseling Dietary counseling Related to Di etary surveillance counseling Decrease caloric intake Related to Dietary surveillance counseling Dietary counseling Related to Di etary surveillance counseling Decrease caloric intake Related to Dietary surveillance counseling Dietary counseling Related to Di etary surveillance counseling Decrease caloric intake Related to Dietary surveillance counseling Dietary counseling Related to Di etary surveillance counseling Decrease caloric intake Related to Dietary surveillance counseling Dietary counseling Related to Di etary surveillance counseling Decrease caloric intake Related to Dietary surveillance counseling Decrease caloric intake Related to Dietary surveillance counseling Dietary counseling Related to Di etary surveillance counseling Dietary counseling Related to Di etary surveillance counseling Decrease caloric intake Related to Dietary surveillance counseling Assessments Type Assessment Date assessment Chronic pain syndrome assessment Generalized Anxiety Disorder Mar Mental Status Date Cognitive Assessment Orientation - [place] ed to time, place, person, situation.
--- OUTSIDE RECORDS SUMMARY | 2024-05-01 09:25 | XMS_ITS | Referral Summary ---
Author Organization [facility] [address] [place] [address] Care Team Providers Care [employer] Name Role Phone Morgan Mercado MD Primary Care Provider [phone] Brisa Lowe MD Unavailable [phone] Aamir Thakkar MD Unavailable [phone] Rodolfo Berman MD Unavailable [phone] Encounters Date Type Department Care Team Description 04/12/2024 Orders Only [facility] Cardiology [address] [place] [address] [phone] Sana Phan MD Bradycardia (Primary Dx); Automatic implantable cardioverter-defibrill ator in situ; Chronic combined systolic and diastolic CHF (congestive heart failure) (CMS/HCC) (HCC); Dilated cardiomyopathy (CMS/HCC) (HCC) 04/03/2024 8:30 AM CLIENT TECHNICAL SPECIALIST Ancillary Procedure [facility] Cardiology [address] [place] [address] [phone] NICM (nonischemic cardiomyopathy) (CMS/HCC) (HCC); Atrial fibrillation, unspecified type (HCC) 03/12/2024 4:40 PM CLIENT TECHNICAL SPECIALIST - 03/12/2024 11:59 PM CLIENT TECHNICAL SPECIALIST Hospital Encounter [facility] Imaging and Radiology [address] [place] [phone] Aamir Thakkar MD Abdominal pain, unspecified abdominal location Discharge Disposition: Discharge to home or self care from Last 3 Months Allergies Active Allergy Reactions Criticality Noted Date Comments Codeine Hives,Itching,Swelling Medium 12/26/2018 Pt is on percocet at home Medications citalopram (CeleXA) 20 mg tablet Take 1 tablet (20 mg total) by mouth daily 3 8 Active ALPRAZolam (XANAX) 1 mg tablet Take 1 tablet (1 mg total) by mouth every 12 hours as needed for anxiety Active calcitRIOL (ROCALTROL) 0.25 mcg capsule Take 1 capsule (0.25 mcg total) by mouth daily 2 Active allopurinoL (ZYLOPRIM) 100 mg tablet Take 1 tablet (100 mg total) by mouth 2 (two) times a day Active carisoprodoL (SOMA) 350 mg tabletIndications :Muscle Spasm Take 1 tablet (350 mg total) by mouth every 12 (twelve) hours as needed for muscle spasms Active fenofibrate (TRICOR) 54 mg tablet Take 1 tablet (54 mg total) by mouth daily 3 Active aspirin 81 mg enteric coated tablet Take 1 tablet (81 mg total) by mouth daily Active ondansetron (ZOFRAN) 4 mg tablet Take 1 tablet (4 mg total) by mouth every 6 (six) hours 12 tablet 3 Active doxazosin (CARDURA) 4 mg tablet Take 1 tablet (4 mg total) by mouth nightly Active oxyCODONE-acetami nophen (PERCOCET) 10-325 mg per tabletIndications :Pain Take 1 tablet by mouth every 6 (six) hours as needed for pain Active simvastatin (ZOCOR) 10 mg tablet Take 1 tablet (10 mg total) by mouth nightly Active amLODIPine (NORVASC) 5 mg tabletIndications :Essential hypertension Take 2 tablets (10 mg total) by mouth daily 60 tablet 11 3 Active lactulose 0.67 gram/mL solution TAKE 30ML BY MOUTH EVERY 2 HOURS FOR 3 DOSES 3 Active naloxone 0.4 mg/mL syringe Infuse 1 mL into a venous catheter 2 Active calcifediol (Rayaldee) 30 mcg capsule,extended release 24 hr 3 (three) times a week Active azithromycin (ZITHROMAX) 250 mg tablet TAKE 2 TABLETS BY MOUTH TODAY, THEN TAKE 1 TABLET DAILY FOR 4 DAYS Active metoprolol XL (TOPROL-XL) 200 mg extended release tablet TAKE 1 TABLET BY MOUTH EVERY DAY 90 tablet 1 4 Active Active Problems Problem Noted Date Diagnosed Date Hypoglycemia due to insulin 09/27/2022 Moderate protein-calorie malnutrition ([facility] 05/28/2022 Hypoglycemia 05/27/2022 Adverse effect of amlodipine 05/26/2022 Bradycardia 05/26/2022 Perinephric hematoma 05/26/2022 History of skin graft 05/10/2022 Acute renal failure superimposed on chronic kidn ey disease 05/08/2022 Pulmonary embolism 07/31/2021 Permanent atrial fibrillation ([facility]) 02/18/20 21 Obesity (BMI 30.0-34.9) 05/07/2019 Low back pain 08/08/2018 Hypercholesterolemia 08/08/2018 Chronic anticoagulation 09/05/2017 Chronic combined systolic an d diastolic CHF (congestive heart failure) ([facility]) 09/01/2015 Overview (07/02/2016): Chronic systolic heart failure Assessment & Plan (10/07/2016 7:13 PM CDT): Very sedentary but probably class 2 symptoms. Automatic implantable cardioverter-defibrillator in situ 09/01/2015 Overview (12/15/2016): [employer] Single ICD Dx; NICM, Afib. DOI 03/31/2015. [employer] Remote Home Monitor Q3 mo, Office device checks Q1 yr. Assessment & Plan (10/07/2016 7:14 PM CDT): ICD checked in July 2016, normal function, no defibrillations Type 2 diabetes mellitus 04/23/2014 Overview (07/02/2016): Type II diabetes mellitus Assessment & Plan (08/17/2023 2:00 PM CDT): Chronic, stable, well-controlled Patient to continue working on diet and exercise No pharmacological intervention is indicated CKD (chronic kidney disease) stage 4, GFR 15-29 ml/min ([facility]) 02/19/2013 Overview (07/02/2016): CKD (chronic kidney disease) stage 3, GFR 30-59 ml/min Dilated cardiomyopathy ([facility]) 02/19/2013 Overview (07/02/2016): Cardiomyopathy Assessment & Plan (10/07/2016 7:13 PM CDT): 2014: EF 35% April 2016: EF 45%, moderate global hypokinesis Stable, euvolemic Essential hypertension 12/25/2010 Overview (07/02/2016): HYPERTENSION NOS Assessment & Plan (10/07/2016 7:15 PM CDT): Hypertension is improving with treatment. Dietary sodium restriction. Blood pressure will be reassessed at the next regular appointment. Hypertriglyceridemia 12/25/2010 Overview (07/02/2016): PURE HYPERGLYCERIDEMIA Tobacco dependence syndrome 12/25/2010 Overview (07/02/2016): TOBACCO USE DISORDER Resolved Problems Problem Noted Date Diagnosed Date Resolved Date Acute on chronic systolic heart failure 05/10/2022 12/12/2023 History of anticoagulant therapy 04/23/2014 09/05/2017 Overview (07/02/2016): Chronic anticoagulation Assessment & Plan (10/07/2016 7:14 PM CDT): 08/2016 INR 2.2 Therapeutic and compliant with [facility] Impaired glucose tolerance 02/19/2013 0 05/07/2019 Overview (07/02/2016): Glucose intolerance (impaired glucose tolerance) Persistent atrial fibrillation 12/25/2010 02/17/2021 Overview (07/02/2016): ATRIAL FIBRILLATION Assessment & Plan (10/07/2016 7:13 PM CDT): In the past has required both Cardizem and metoprolol for rate control, but it appears he is only taking metoprolol now with a controlled rate. Social History Tobacco Use Types Packs/Day Years Used Date Smoking Tobacco: Every Day Cigarettes 0.3 57.1 Started: 1966 Passive Smoke Exposure: Past Smokeless Tobacco: Never Tobacco Cessation:Ready to Q uit: Not Asked; Counseling Given: Not Answered Comments:At heaviest smoking, smoked 1 ppd, last cigarette 08/11/2022 approx 1900 Last smoked yesterday 6-7 1800 Alcohol Use Standard Drinks/Week Comments No 0 (1 standard drink = 0.6 oz pur e alcohol) Social Connection and Isolat ion Panel [NHANES] Answer Date Recorded In a typical week, how many times do you talk on the phone with family, friends, or neighbors? Three times a week 09/29/2022 How often do you get togethe r with friends or relatives? Once a week 09/29/2022 How often do you attend chur Lott[place] or spiritism services? Never 09/29/2022 Do you belong to any clubs o r organizations such as mormon groups, unions, fraternal or athletic groups, or school groups? Yes 09/29/2022 How often do you attend meet ings of the clubs or organizations you belong to? More than 4 times per year 09/29/2022 Are you , , di vorced, , never , or living with a partner? 09/29/2022 AUDIT-C Answer Date Recorded Q1: How often do you have a drink containing alc ohol? Never 09/02/2022 Average Number of Drinks Not on file 023 Frequency of Binge Drinking Not on file 10/2022 Overall Financial Resource Strain (CARDIA) Answe r Date Recorded How hard is it for you to pa y for the very basics like food, housing, medical care, and heating? Not hard at all 09/29/2022 Hunger Vital Sign Answer Date Recorded Within the past 12 months, y ou worried that your food would run out before you got the money to buy more. Never true 09/30/19 23 Within the past 12 months, t he food you bought just didn't last and you didn't have money to get more. Never true 09/29/2022 PRAPARE - Transportation Answer Date Re corded In the past 12 months, has l ack of transportation kept you from medical appointments or from getting medications? No 07/2022 In the past 12 months, has l ack of transportation kept you from meetings, work, or from getting things needed for daily living? No 09/29/2022 Housing Stability Vital Sign Answer Edmond e Recorded In the last 12 months, was t here a time when you were not able to pay the mortgage or rent on time? No 09/29/2022 In the last 12 months, how many places have you lived? 1 09/29/2022 In the last 12 months, was t here a time when you did not have a steady place to sleep or slept in a senior living (including now)? No 09/29/2022 Personal Safety Answer Date Recorded Have you ever been in or are you currently in a harmful physical or emotional relationship or is someone making you feel afraid or unsafe? Denies 12/21/2022 Education Answer Date Recorded What is the highest level of school you have completed or the highest degree you have received? 12th grade 05/10/2022 Sex and Gender Information Value Date Recorded Sex Assigned at Not on file Legal Sex Male 10:59 AM CLIENT TECHNICAL SPECIALIST Gender Identity Not on file Sexual Orientation Not on file Last Filed Vital Signs Vital Sign Reading Time Taken Comments Blood Pressure 128/74 12/12/2023 10:58 AM CDT Pulse 82 12/12/2023 10:58 AM CDT Temperature 36.7 ??C (98.1 ??F) 12/21/2022 4:32 PM CD T Respiratory Rate 18 08/17/2023 1:33 PM CDT Oxygen Saturation 99% 12/12/2023 10: 58 AM CDT Inhaled Oxygen Concentration - - Weight 98.3 kg (216 lb 11.2 oz) 024 10:58 AM CDT Height 182.9 cm (6') 12/12/2023 10:58 AM CDT Body Mass Index 29.39 12/12/2023 10:58 AM CDT Plan of Treatment Not on file Medical Devices Implanted Type Area Web Developer Programmer Device Identifier Shelf Expiration Date Model / Serial / Lot [employer] Acuseal 4-7mm 45cm Taper Graft Vascular Sterile [id number] - [id number] - [id number] Implanted:Qty: 1 on 09/02/2022 by Rodolfo Berman MD at [facility] Graft Left: Arm Wl [employer] [id number] 10/01/2024 [id number] / [id number] / Icd-03/31/2015 Implanted:03/31 by Dante Weaver DO (Quantity not on file) ICD Left: Chest [employer] NICM, Afib ITREVIA 7 VRT / [id number] / Screw Screw Back Description:Lumbar laminecto my Procedures Procedure Name Priority Date/Time Associated Diagnosis Comments CT ABDOMEN PELVIS WO CONTRAST Schedule Routine, Read Routine (OP Routine) 03/12/2024 4:55 PM CLIENT TECHNICAL SPECIALIST Abdominal pain, unspecified abdominal location POCT LIPID PANEL Routine 12/12/2023 11:2 2 AM CDT Hypercholesterolem ia POCT HEMOGLOBIN A1C Routine 08/17/2023 1:35 PM CDT Type 2 diabetes mellitus with stage 2 chronic kidney disease, without long-term current use of insulin (CMS/HCC) (HCC) HEPATITIS PANEL, ACUTE Routine 11/16/2022 11:25 AM CDT EGFR Routine 11/16/2022 11:25 AM CDT from Last 3 Months or Most Recently Relevant to Health Maintenance Results * CT Abdomen Pelvis WO Contrast (03/12/2024 4:55 PM CLIENT TECHNICAL SPECIALIST) Anatomical Region Laterality Modality Body N/A Computed Tomogra phy 03/12/2024 5:12 PM CLIENT TECHNICAL SPECIALIST Impressions 03/12/2024 5:12 PM CLIENT TECHNICAL SPECIALIST 1. ??MILD SUBSEGMENTAL ATELECTASIS IN LEFT LOWER LOBE. 2. ??PLEURAL EFFUSIONS HAVE RESOLVED. 3. ??BILATERAL PERINEPHRIC FAT STRANDING IS UNCHANGED. 4. ??AORTIC ATHEROSCLEROSIS. 5. ??APPENDECTOMY. 6. ??UNCOMPLICATED DIVERTICULAR DISEASE IN THE SIGMOID COLON. Electronically signed by: Akbar Garg M.D. Narrative 03/12/2024 5:12 PM CLIENT TECHNICAL SPECIALIST EXAMINATION: CT ABDOMEN PELVIS WO CONTRAST DATE: 03/12/2024 5:30 PM HISTORY: Abdominal pain. TECHNIQUE: Transaxial computed tomographic images of the abdomen and pelvis were obtained without the administration of intravenous contrast. Multiplanar coronal and sagittal images were reformatted. COMPARISON: 05/09/2022 FINDINGS: Scans through the lung bases demonstrate mild subsegmental atelectasis in the left lower lobe. ??Pleural effusions seen previously have resolved. ??The liver, gallbladder, pancreas and spleen appear normal. ??No evidence of free air or free fluid in the abdomen. ?? There is bilateral perinephric fat stranding. ??There are small cysts in the left kidney. ??No evidence of hydronephrosis. ??No evidence of retroperitoneal adenopathy. ??There are atherosclerotic changes in the abdominal aorta. The appendix has been removed. ??No evidence of bowel obstruction. There are diverticula in the sigmoid colon. ??No ??inflammatory lesion is seen. The urinary bladder appears normal. ??No significant bony abnormality is seen. Procedure Note Akbar Garg MD - 03/12/2024 EXAMINATION: CT ABDOMEN PELVIS WO CONTRAST DATE: 03/12/2024 5:30 PM HISTORY: Abdominal pain. TECHNIQUE: Transaxial computed tomographic images of the abdomen and pelvis were obtained without the administration of intravenous contrast. Multiplanar coronal and sagittal images were reformatted. COMPARISON: 05/09/2022 FINDINGS: Scans through the lung bases demonstrate mild subsegmental atelectasis in the left lower lobe. Pleural effusions seen previously have resolved. The liver, gallbladder, pancreas and spleen appear normal. No evidence of free air or free fluid in the abdomen. There is bilateral perinephric fat stranding. There are small cysts in the left kidney. No evidence of hydronephrosis. No evidence of retroperitoneal adenopathy. There are atherosclerotic changes in the abdominal aorta. The appendix has been removed. No evidence of bowel obstruction. There are diverticula in the sigmoid colon. No inflammatory lesion is seen. The urinary bladder appears normal. No significant bony abnormality is seen. IMPRESSION: 1. MILD SUBSEGMENTAL ATELECTASIS IN LEFT LOWER LOBE. 2. PLEURAL EFFUSIONS HAVE RESOLVED. 3. BILATERAL PERINEPHRIC FAT STRANDING IS UNCHANGED. 4. AORTIC ATHEROSCLEROSIS. 5. APPENDECTOMY. 6. UNCOMPLICATED DIVERTICULAR DISEASE IN THE SIGMOID COLON. Electronically signed by: Akbar Garg M.D. Aamir Thakkar MD IMG CT PROCEDURES Final Resul t * POCT lipid panel (12/12/2023 11:22 AM CDT) Cholesterol, POC 103 mg/dL Comment:GLU = 189 HDL, POC 28 mg/dL Triglycerides, POC 118 mg/dL LDL Cholesterol POC 51 mg/dL Chol/HDL Ratio, POC 1.8 Non-HDL Cholesterol, POC 75 mg/dL Cholesterol Total, POC 103 mg/dL Capillary blood 12/12/2023 1 1:22 AM CDT Sana Phan MD POINT OF CARE TEST O RDERABLES Final Result * (ABNORMAL) POCT hemoglobin A1c (08/17/2023 1:35 PM CDT) Pathologist [facility] Hemoglobin A1C, POC 5.9 % Capillary blood 08/17/2023 1 :35 PM CDT Zay Conroy MD POINT OF CARE TEST ORDERABLES Fi nal Result * eGFR (11/16/2022 11:25 AM CDT) eGFR 12 mL/min/1. 73 m2 [facility] ([place]) Comment: Interpretive Data Reference Interval Normal ?>/= 90 mL/min/1.73m2 Mildly decreased* ? 60 - 89 mL/min/1.73m2 Mildly to moderately decreased ?45 - 59 mL/min/1.73m2 Moderately to severely decreased ??30 - 44 mL/min/1.73m2 Severely decreased ?15 - 29 mL/min/1.73m2 Kidney Failure ?< 15 ??mL/min/1.73m2 *Relative to young adult level Estimated glomerular filtration rate is determined by the 2020 CKD-EPI equation recommended by the National Kidney Foundation (A Unifying Approach to GFR Estimation: Recommendations of the NKF-ASK Task Force on Reassessing the Inclusion of Race in Diagnosing Kidney Disease, JASN 2020). The CKD-EPI equation should not be used for patients with unstable renal function and has not been validated in children and those over 70. Current interpretive data was last reviewed 2021. Blood 11/16/2022 11:2 5 AM CDT 11/16/2022 12:20 PM CDT us Aamir Thakkar MD LAB BLOOD ORDERABLES Final Re sult [facility] ([place]) [facility] Department of Laboratories [place], [place] [id number] * Hepatitis panel, acute (11/16/2022 11:25 AM CDT) Hep A IgM Nonreactive Nonreactive [facility] ([place]) Comment: Interpretive Data: If Hep A IgM Ab is reported as Equivocal, a new sample should be drawn in two weeks for testing. Current interpretive data was last revised on 19. Testing performed by: [facility], [address] [place] [address], [place]., [id number] Hep B core IgM Nonreactive Nonreactive Beth MATT ([place]) Comment: Interpretive Data If HepB Core IgM Ab is reported as Equivocal, a new sample should be drawn in two weeks for testing. Current interpretive data was last revised on 19. Testing performed by: [facility], [address] [place] [address], [place] [address] Hep C Ab Nonreactive Nonreactive [facility] ([place]) Comment: Interpretive Data Nonreactive: Antibodies to HCV not detected. Does NOT exclude the possibility of recent exposure to HCV. Equivocal: Equivocal for HCV antibodies. Supplemental molecular testing will be automatically performed to determine infection status in accordance with current CDC screening recommendations. ?? Reactive: Positive for HCV antibodies. ??This may represent current or past HCV infection. Supplemental molecular testing will be automatically performed to determine ??current infection status in accordance with current CDC screening recommendations. Interpretive data was last revised on 2019. Testing performed by: [facility], [address] [place] [address]., [id number] HepBsAg Nonreactive Nonreactive [facility] ([place]) Comment:Testing performed by : [facility], [address] [place] [address]., [id number] Blood 11/16/2022 11:2 5 AM CDT 11/16/2022 3:12 PM CDT Aamir Thakkar MD LAB MICROBIOLOGY - GENERAL OR DERABLES Final Result [facility] ([place]) [facility] Department of [place] [address] from Last 3 Months or Most Recently Relevant to Health Maintenance Insurance MEDICARE Advance Directives For more information, please contact: [phone] * Full Code (Latest Code Status on File) Date Activated Date Inactivated Comments 09/27/2022 8:06 PM 09/29/2022 5:17 PM * Full Code Date Activated Date Inactivated Comments 05/28/2022 2:05 AM 05/29/2022 5:24 PM * Full Code Date Activated Date Inactivated Comments 05/27/2022 8:42 PM 05/28/2022 2:05 AM * Full Code Date Activated Date Inactivated Comments 05/08/2022 4:42 PM 05/15/2022 7:17 PM Care Teams [employer] Relationship Specialty Start Date End Date Morgan Mercado MD PCP - General 06/25/16 Brisa Lowe MD Consulting Physician Cardiology 08/26/21 Aamir Thakkar MD [address] [facility] [address] [place] [address] [place] [id number] Consulting Physician Nephrology 05/15/22 Rodolfo Berman MD [address] [facility] [address] [place] [address] [address] Surgeon Surgery 09/02/22
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
--- OUTSIDE RECORDS SUMMARY | 2024-05-01 09:25 | XMS_ITS | Encounter Summary ---
Author Organization [employer] Address [address] [place] [address] Care Team Providers Care Magazine Feeder Name Role Phone Morgan Mercado MD Primary Care Provider [phone] Encounter Details Date Type Department Care Team (Latest Contact Info) Description 05/05/2006 Outpatient Historical [facility] Tobi Maurice MD [address] [place] [phone] Fitting and Adjustment of Vascular Catheter (Primary Dx); Unspecified Renal Failure; Chronic Kidney Disease, Unspecified; Late Effect of Michael of Other Specified Sites; Unspecified Essential Hypertension; Atrial Fibrillation (CMS/HCC); Chronic Airway Obstruction, 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); Esophageal Reflux; Unspecified Anemia; Unspecified Backache; Unspecified Arthropathy, Site Unspecified; Coronary Atherosclerosis of [place] Coronary Artery; Tobacco Use Disorder; Postsurgical Percutaneous Transluminal Coronary Angioplasty Status; Personal History of Peptic Ulcer Disease; Late Effects of Unspecified Accident; Unspecified Place of Occurrence Social History Tobacco Use Types Packs/Day Years Used Date Smoking Tobacco: Never Assessed Sex and Gender Information Value Date Recorded Sex Assigned at Not on file Legal Sex Male 4:23 AM SOCIAL 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 Gender Identity Not on file Sexual Orientation Not on file documented as of this encounter Plan of Treatment Not on file documented as of this encounter Procedures Procedure Name Priority Date/Time Associated Diagnosis Comments POC GLUCOSE Routine 05/05/2006 8:20 AM SOCIAL 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 HEMOGLOBIN AND HEMATOCRIT Routine 05/04/2006 11:38 AM SOCIAL 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 BASIC METABOLIC PANEL Routine 05/04/2006 11:38 AM SOCIAL 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 documented in this encounter Results * (ABNORMAL) POC GLUCOSE (05/05/2006 8:20 AM SOCIAL 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) GLUCOSE POC 122(H) 65 - 99 mg/dL INTERFACE SYSTEM 05/05/2006 8:20 AM SOCIAL 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 us Tobi Maurice MD POINT OF CARE TESTING Edite d Performing Organization Address [facility] de Phone Number INTERFACE SYSTEM Refer to clinic/hospital department * (ABNORMAL) HEMOGLOBIN AND HEMATOCRIT (05/04/2006 11:38 AM SOCIAL 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) HEMOGLOBIN 10.5(L) 13.6 - 16.5 g/dL INTERFACE SYSTEM HEMATOCRIT 31.5(L) 40.0 - 48.0 % INTERFACE SYSTEM 05/04/2006 11:3 8 AM SOCIAL 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 Tobi Maurice MD HEMATOLOGY ORDERABLES Edite d Performing Organization Address [facility] Phone Number INTERFACE SYSTEM Refer to clinic/hospital department * (ABNORMAL) BASIC METABOLIC PANEL (05/04/2006 11:38 AM SOCIAL 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) GLUCOSE 93 65 - 99 mg/dL INTERFACE SYSTEM CREATININE 2.67(H) 0.67 - 1.17 mg/dL INTERFACE SYSTEM CALCIUM 9.0 8.4 - 10.2 mg/dL INTERFACE SYSTEM BUN 46(H) 6 - 20 mg/dL INTERFACE SYSTEM SODIUM 137 135 - 145 mmol/L INTERFACE SYSTEM POTASSIUM 4.8 3.5 - 4.9 mmol/L INTERFACE SYSTEM CHLORIDE 105 96 - 108 mmol/L INTERFACE SYSTEM CO2 20(L) 22 - 30 mmol/L INTERFACE SYSTEM GFR, 30(L) >=60 mL/min/1. 7 sq meter INTERFACE SYSTEM GFR 25(L) >=60 mL/min/1. 7 sq meter INTERFACE SYSTEM Comment: Estimated GFR rate interpretative information for both Americans and non- Americans is available on the [facility] [place] at: [email or web address] Select: Lab Policies and Procedures Select: Reference Ranges - GFR 05/04/2006 11:3 8 AM SOCIAL 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 Tobi Maurice MD CHEMISTRY ORDERABLES Edited INTERFACE SYSTEM Refer to clinic/hospital department documented in this encounter Visit Diagnoses Diagnosis Fitting and adjustment of vascular catheter- Primary Renal failure, unspecified Chronic kidney disease, unspecified Late effect of michael of other specified sites Unspecified essential hypertension Atrial fibrillation (CMS/HCC) Atrial fibrillation Chronic airway obstruction, not elsewhere classified (CMS/HCC) Chronic airway obstruction, not elsewhere classified Esophageal reflux Anemia, unspecified Backache, unspecified Arthropathy, unspecified, site unspecified Coronary atherosclerosis of [place] coronary artery Tobacco use disorder Postsurgical percutaneous transluminal coronary angioplasty status Personal history of peptic ulcer disease Late effects of unspecified accident Unspecified place of occurrence documented in this encounter Care Teams Magazine Feeder Relationship Specialty Start Date End Date Morgan Mercado MD [facility] [place] [address] PCP - General Family Practice 11/02/16 documented as of this encounter
--- OUTSIDE RECORDS SUMMARY | 2024-05-01 09:25 | XMS_ITS ---
Author Name Aamir Thakkar Address [address] [place] [address] Phone [phone] Organization [facility] e, NA DOCUMENT DISCLAIMER Multiple document versions may exist, please be sure you review the latest version. The information in the [facility] Progress Note Document represents a providers documented clinical note containing certain health and medical information. It may not contain the complete medical history for the patient and should be independently verified. The represented time in the document is Eastern Time PROVIDER ROUNDING NOTE COMPREHENSIVE Patient:?Lencho?Olivia,?1950,?74y,?M Dialysis?Location:?[facility] Attending?Vmware Engineer:?Aamir?Bijan Service?Date:?03/26/2024 Service?Provider:?Aamir?Bijan,? I?met?face?to?face?with?the?patient?today. OVERVIEW The?patient?presented?with?ESRD?on?dialysis Primary?cause?of?renal?failure:?Type?2?diabetes?mellitus&#16 0;with?diabetic?chronic?kidney?disease Medications?and?labs?reviewed. [...] ??02/07/2024:?4.6,?4.2 ?? eNPCR ??04/10/2024:?0.73 ??03/06/2024:?0.87 ??02/07/2024:?0.9 PHYSICAL?EXAM Exam?Performed.?Vital?Signs?Reviewed. DIAGNOSIS Chief?Complaint:?N18.6?End?stage?renal?disease Patient?data?updated?04/30/2024?at?6:44?PM Signed?By:?Bijan,?Aamir,???on?04/30/2024?6:45:20?PM END OF DOCUMENT
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
--- OUTSIDE RECORDS SUMMARY | 2024-05-01 09:26 | XMS_ITS | Encounter Summary ---
Author Organization [employer] Address 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); End Stage Renal Disease (CMS/[facility]); Urinary Tract Infection, Site not Specified; DM w/o Complication Type II (CMS/HCC); Unspecified Anemia Social History Tobacco Use Types Packs/Day Years Used Date Smoking Tobacco: Never Assessed Sex and Gender Information Value Date Recorded Sex Assigned at Not on file Legal Sex Male 4:23 AM SHIFT SUPERINTENDENT Gender Identity Not on file Sexual Orientation Not on file documented as of this encounter Plan of Treatment Not on file documented as of this encounter Procedures Procedure Name Priority Date/Time Associated Diagnosis Comments POC GLUCOSE Routine 03/04/2006 4:47 PM SHIFT SUPERINTENDENT POC GLUCOSE Routine 03/04/2006 12:07 PM SHIFT SUPERINTENDENT POC GLUCOSE Routine 03/04/2006 7:48 AM SHIFT SUPERINTENDENT POC GLUCOSE Routine 03/03/2006 5:15 PM SHIFT SUPERINTENDENT POC GLUCOSE Routine 03/03/2006 6:26 AM SHIFT SUPERINTENDENT PTT Routine 03/03/2006 6:00 AM SHIFT SUPERINTENDENT CBC WITH DIFFERENTIAL Routine 03/03/2006 5:00 AM SHIFT SUPERINTENDENT CBC WITH DIFFERENTIAL Routine 03/03/2006 5:00 AM SHIFT SUPERINTENDENT PHOSPHORUS Routine 03/03/2006 5:00 AM SHIFT SUPERINTENDENT MAGNESIUM LEVEL Routine 03/03/2006 5:00 AM SHIFT SUPERINTENDENT BASIC METABOLIC PANEL Routine 03/03/2006 5:00 AM SHIFT SUPERINTENDENT CKMB W/REFLEX CK Routine 03/02/2006 10:0 0 PM SHIFT SUPERINTENDENT TROPONIN (W/REFLEX CKMB/CK) Routine 03/02/2006 10:00 PM SHIFT SUPERINTENDENT CBC WITH DIFFERENTIAL Routine 03/02/2006 10:00 PM SHIFT SUPERINTENDENT CBC WITH DIFFERENTIAL Routine 03/02/2006 10:00 PM SHIFT SUPERINTENDENT PTT Routine 03/02/2006 10:00 PM SHIFT SUPERINTENDENT POC GLUCOSE Routine 03/02/2006 9:14 PM SHIFT SUPERINTENDENT POC GLUCOSE Routine 03/02/2006 5:08 PM SHIFT SUPERINTENDENT POC GLUCOSE Routine 03/02/2006 11:39 AM SHIFT SUPERINTENDENT PTT Routine 03/02/2006 11:17 AM SHIFT SUPERINTENDENT POC GLUCOSE Routine 03/02/2006 5:59 AM SHIFT SUPERINTENDENT CKMB W/REFLEX CK Routine 03/02/2006 5:45 AM SHIFT SUPERINTENDENT TROPONIN (W/REFLEX CKMB/CK) Routine 03/02/2006 5:45 AM SHIFT SUPERINTENDENT PT AND APTT Routine 03/02/2006 5:45 AM SHIFT SUPERINTENDENT CBC WITH DIFFERENTIAL Routine 03/02/2006 5:45 AM SHIFT SUPERINTENDENT CBC WITH DIFFERENTIAL Routine 03/02/2006 5:45 AM SHIFT SUPERINTENDENT CBC WITH DIFFERENTIAL Routine 03/02/2006 5:45 AM SHIFT SUPERINTENDENT PHOSPHORUS Routine 03/02/2006 5:45 AM SHIFT SUPERINTENDENT MAGNESIUM LEVEL Routine 03/02/2006 5:45 AM SHIFT SUPERINTENDENT BASIC METABOLIC PANEL Routine 03/02/2006 5:45 AM SHIFT SUPERINTENDENT documented in this encounter Results * (ABNORMAL) POC GLUCOSE (03/04/2006 4:47 PM SHIFT SUPERINTENDENT) GLUCOSE POC 118(H) 65 - 99 mg/dL INTERFACE SYSTEM Comment: 02/10/2006 Change in reference range to correspond to Main Lab reference range. 03/04/2006 4:47 PM SHIFT SUPERINTENDENT us Tim Batres MD POINT OF CARE TESTING Final Res ult Performing Organization Address [facility] Phone Number INTERFACE SYSTEM Refer to clinic/hospital department * (ABNORMAL) POC GLUCOSE (03/04/2006 12:07 PM SHIFT SUPERINTENDENT) GLUCOSE POC 126(H) 65 - 99 mg/dL INTERFACE SYSTEM Comment: 02/10/2006 Change in reference range to correspond to Main Lab reference range. 03/04/2006 12:0 7 PM SHIFT SUPERINTENDENT us Tim Batres MD POINT OF CARE TESTING Final Res ult Performing Organization Address [facility] de Phone Number INTERFACE SYSTEM Refer to clinic/hospital department * POC GLUCOSE (03/04/2006 7:48 AM SHIFT SUPERINTENDENT) GLUCOSE POC 85 65 - 99 mg/dL INTERFACE SYSTEM Comment: 02/10/2006 Change in reference range to correspond to Main Lab reference range. 03/04/2006 7:48 AM SHIFT SUPERINTENDENT us Tim Batres MD POINT OF CARE TESTING Final Res ult Performing Organization Address [facility] Phone Number INTERFACE SYSTEM Refer to clinic/hospital department * POC GLUCOSE (03/03/2006 5:15 PM SHIFT SUPERINTENDENT) GLUCOSE POC 90 65 - 99 mg/dL INTERFACE SYSTEM Comment: 02/10/2006 Change in reference range to correspond to Main Lab reference range. 03/03/2006 5:15 PM SHIFT SUPERINTENDENT Tim Batres MD POINT OF CARE TESTING Final Res ult Performing Organization Address [facility] de Phone Number INTERFACE SYSTEM Refer to clinic/hospital department * POC GLUCOSE (03/03/2006 6:26 AM SHIFT SUPERINTENDENT) GLUCOSE POC 85 65 - 99 mg/dL INTERFACE SYSTEM Comment: 02/10/2006 Change in reference range to correspond to Main Lab reference range. 03/03/2006 6:26 AM SHIFT SUPERINTENDENT Tim Batres MD POINT OF CARE TESTING Final Res ult Performing Organization Address [facility] Phone Number INTERFACE SYSTEM Refer to clinic/hospital department * PTT (03/03/2006 6:00 AM SHIFT SUPERINTENDENT) PTT 31.5 24.4 - 36.4 Seconds INTERFACE SYSTEM Comment: PTT Therapeutic Range: Heparin Level ? PTT (seconds) <0.10 units/mL ? <53 0.10 - 0.30 units/mL ? 53 - 67 0.30 - 0.70 units/mL* ?67 - 95* 0.70 - 1.00 units/mL ?95 - 116 *corresponds to therapeutic range for unfractionated heparin ?? 03/03/2006 6:00 AM SHIFT SUPERINTENDENT us Socorro Santos MD HEMATOLOGY ORDERABLES Final Res ult Performing Organization Address [facility] de Phone Number INTERFACE SYSTEM Refer to clinic/hospital department * CBC WITH DIFFERENTIAL (03/03/2006 5:00 AM SHIFT SUPERINTENDENT) NEUTROPHILS 70 45 - 70 % INTERFAC E SYSTEM LYMPHOCYTES 19 16 - 45 % INTERFAC E SYSTEM MONOCYTES 9 3 - 13 % INTERFACE SYSTEM EOSINOPHILS 1 0 - 7 % INTERFAC E SYSTEM BASOPHILS 1 0 - 2 % INTERFACE SYSTEM NEUTROPHIL ABSOLUTE 4.25 1.90 - 7.00 K/uL INTERFACE SYSTEM LYMPHOCYTE ABSOLUTE 1.15 0.70 - 4.50 K/uL INTERFACE SYSTEM MONOCYTE ABSOLUTE 0.55 0.10 - 1.30 K/uL INTERFACE SYSTEM EOSINOPHIL ABSOLUTE 0.04 0.00 - 0.70 K/uL INTERFACE SYSTEM BASOPHILS ABSOLUTE 0.04 0.00 - 0.20 K/uL INTERFACE SYSTEM 03/03/2006 5:00 AM SHIFT SUPERINTENDENT Colten Polk MD HEMATOLOGY ORDERABLES Final R esult Performing Organization Address [facility] de Phone Number INTERFACE SYSTEM Refer to clinic/hospital department * (ABNORMAL) CBC WITH DIFFERENTIAL (03/03/2006 5:00 AM SHIFT SUPERINTENDENT) WBC 6.0 4.0 - 9.8 K/uL INTERFACE SYSTEM RBC 3.13(L) 4.50 - 5.40 M/uL INTERFACE SYSTEM HEMOGLOBIN 9.0(L) 13.6 - 16.5 g/dL INTERFACE SYSTEM HEMATOCRIT 28.7(L) 40.0 - 48.0 % INTERFACE SYSTEM MCV 91.7 82.0 - 99.0 fL INTERFACE SYSTEM MCH 28.8 27.2 - 32.6 pg INTERFACE SYSTEM MCHC 31.4(L) 31.5 - 35.5 % INTERFACE SYSTEM RDW 16.4(H) 11.5 - 14.5 % INTERFACE SYSTEM RDW-STDEV 55.2(H) 37.1 - 48.7 fL INTERFACE SYSTEM PLATELETS 281 140 - 350 K/uL INTERFACE SYSTEM MPV 9.0(L) 9.3 - 12.4 fL INTERFACE SYSTEM 03/03/2006 5:00 AM SHIFT SUPERINTENDENT Colten Polk MD HEMATOLOGY ORDERABLES Final R esult Performing Organization Address [facility] Phone Number INTERFACE SYSTEM Refer to clinic/hospital department * PHOSPHORUS (03/03/2006 5:00 AM SHIFT SUPERINTENDENT) PHOSPHORUS 4.3 2.5 - 4.5 mg/dL INTERFACE SYSTEM 03/03/2006 5:00 AM SHIFT SUPERINTENDENT Colten Polk MD CHEMISTRY ORDERABLES Final Re sult Performing Organization Address [facility] Phone Number INTERFACE SYSTEM Refer to clinic/hospital department * MAGNESIUM LEVEL (03/03/2006 5:00 AM SHIFT SUPERINTENDENT) MAGNESIUM 1.7 1.5 - 2.5 mg/dL INTERFACE SYSTEM 03/03/2006 5:00 AM SHIFT SUPERINTENDENT us Colten Polk MD CHEMISTRY ORDERABLES Final Re diegot Performing Organization Address [facility] Phone Number INTERFACE SYSTEM Refer to clinic/hospital department * (ABNORMAL) BASIC METABOLIC PANEL (03/03/2006 5:00 AM SHIFT SUPERINTENDENT) GLUCOSE 81 65 - 99 mg/dL INTERFACE SYSTEM CREATININE 5.49(H) 0.67 - 1.17 mg/dL INTERFACE SYSTEM Comment:Note: Effective 01/26 New Methodolgy and Reference Ranges CALCIUM 8.5 8.4 - 10.2 mg/dL INTERFACE SYSTEM BUN [...] and non- Americans is available on the [facility] Intranet at: [email or web address] Select: Lab Policies and Procedures Select: Reference Ranges - GFR 03/03/2006 5:00 AM SHIFT SUPERINTENDENT Colten Polk MD CHEMISTRY ORDERABLES Final Re sult Performing Organization Address [facility] Co de Phone Number INTERFACE SYSTEM Refer to clinic/hospital department * CKMB W/REFLEX CK (03/02/2006 10:00 PM SHIFT SUPERINTENDENT) CKMB 2.9 <=6.7 ng/mL INTERFACE SYSTEM CKMB INTERP Negative INTERFAC E SYSTEM 03/02/2006 10:0 0 PM SHIFT SUPERINTENDENT Tim Batres MD CHEMISTRY ORDERABLES Final Resu lt Performing Organization Address [facility] de Phone Number INTERFACE SYSTEM Refer to clinic/hospital department * (ABNORMAL) TROPONIN (W/REFLEX CKMB/CK) (03/02/2006 10:00 PM SHIFT SUPERINTENDENT) TROPONIN T 0.24(AA) <=0.03 ng/mL INTERFACE SYSTEM Comment:Persistent abnormal result TROPONIN T INTERP See Below INTERFACE SYSTEM Comment:Elevated Troponin-T, Consistent with Myocardial Injury 03/02/2006 10:0 0 PM SHIFT SUPERINTENDENT Tim Batres MD CHEMISTRY ORDERABLES Final Resu lt Performing Organization Address [facility] Phone Number INTERFACE SYSTEM Refer to clinic/hospital department * CBC WITH DIFFERENTIAL (03/02/2006 10:00 PM SHIFT SUPERINTENDENT) NEUTROPHILS 64 45 - 70 % INTERFAC E SYSTEM LYMPHOCYTES 25 16 - 45 % INTERFAC E SYSTEM MONOCYTES 10 3 - 13 % INTERFACE SYSTEM EOSINOPHILS 1 0 - 7 % INTERFAC E SYSTEM BASOPHILS 0 0 - 2 % INTERFACE SYSTEM NEUTROPHIL ABSOLUTE 4.57 1.90 - 7.00 K/uL INTERFACE SYSTEM LYMPHOCYTE ABSOLUTE 1.82 0.70 - 4.50 K/uL INTERFACE SYSTEM MONOCYTE ABSOLUTE 0.70 0.10 - 1.30 K/uL INTERFACE SYSTEM EOSINOPHIL ABSOLUTE 0.08 0.00 - 0.70 K/uL INTERFACE SYSTEM BASOPHILS ABSOLUTE 0.03 0.00 - 0.20 K/uL INTERFACE SYSTEM 03/02/2006 10:0 0 PM SHIFT SUPERINTENDENT Tim Batres MD HEMATOLOGY ORDERABLES Final Res ult Performing Organization Address [facility] de Phone Number INTERFACE SYSTEM Refer to clinic/hospital department * (ABNORMAL) CBC WITH DIFFERENTIAL (03/02/2006 10:00 PM SHIFT SUPERINTENDENT) WBC 7.2 4.0 - 9.8 K/uL INTERFACE SYSTEM RBC 3.04(L) 4.50 - 5.40 M/uL INTERFACE SYSTEM HEMOGLOBIN 9.0(L) 13.6 - 16.5 g/dL INTERFACE SYSTEM HEMATOCRIT 27.8(L) 40.0 - 48.0 % INTERFACE SYSTEM MCV 91.4 82.0 - 99.0 fL INTERFACE SYSTEM MCH 29.6 27.2 - 32.6 pg INTERFACE SYSTEM MCHC 32.4 31.5 - 35.5 % INTERFACE SYSTEM RDW 16.2(H) 11.5 - 14.5 % INTERFACE SYSTEM RDW-STDEV 54.7(H) 37.1 - 48.7 fL INTERFACE SYSTEM PLATELETS 293 140 - 350 K/uL INTERFACE SYSTEM MPV 8.9(L) 9.3 - 12.4 fL INTERFACE SYSTEM 03/02/2006 10:0 0 PM SHIFT SUPERINTENDENT us Tim Batres MD HEMATOLOGY ORDERABLES Final Res ult Performing Organization Address [facility] Phone Number INTERFACE SYSTEM Refer to clinic/hospital department * (ABNORMAL) PTT (03/02/2006 10:00 PM SHIFT SUPERINTENDENT) PTT >150.0(AA ) 24.4 - 36.4 Seconds INTERFACE SYSTEM Comment: PTT Therapeutic Range: Heparin Level ? PTT (seconds) <0.10 units/mL ? <53 0.10 - 0.30 units/mL ? 53 - 67 0.30 - 0.70 units/mL* ?67 - 95* 0.70 - 1.00 units/mL ?95 - 116 *corresponds to therapeutic range for unfractionated heparin ?? Results called to srinath at 03/02/2006 11:48 PM and read back verified. 03/02/2006 10:0 0 PM SHIFT SUPERINTENDENT us Tim Batres MD HEMATOLOGY ORDERABLES Final Res ult Performing Organization Address [facility] Phone Number INTERFACE SYSTEM Refer to clinic/hospital department * (ABNORMAL) POC GLUCOSE (03/02/2006 9:14 PM SHIFT SUPERINTENDENT) GLUCOSE POC 130(H) 65 - 99 mg/dL INTERFACE SYSTEM Comment: 02/10/2006 Change in reference range to correspond to Main Lab reference range. 03/02/2006 9:14 PM SHIFT SUPERINTENDENT us Tim Batres MD POINT OF CARE TESTING Final Res ult Performing Organization Address [facility] Phone Number INTERFACE SYSTEM Refer to clinic/hospital department * (ABNORMAL) POC GLUCOSE (03/02/2006 5:08 PM SHIFT SUPERINTENDENT) GLUCOSE POC 114(H) 65 - 99 mg/dL INTERFACE SYSTEM Comment: 02/10/2006 Change in reference range to correspond to Main Lab reference range. 03/02/2006 5:08 PM SHIFT SUPERINTENDENT us Tim Batres MD POINT OF CARE TESTING Final Res ult Performing Organization Address [facility] Phone Number INTERFACE SYSTEM Refer to clinic/hospital department * (ABNORMAL) POC GLUCOSE (03/02/2006 11:39 AM SHIFT SUPERINTENDENT) GLUCOSE POC 106(H) 65 - 99 mg/dL INTERFACE SYSTEM Comment: 02/10/2006 Change in reference range to correspond to Main Lab reference range. 03/02/2006 11:3 9 AM SHIFT SUPERINTENDENT us Tim Batres MD POINT OF CARE TESTING Final Res ult INTERFACE SYSTEM Refer to clinic/hospital department * PTT (03/02/2006 11:17 AM SHIFT SUPERINTENDENT) PTT 35.1 24.4 - 36.4 Seconds INTERFACE SYSTEM Comment: PTT Therapeutic Range: Heparin Level ? PTT (seconds) <0.10 units/mL ? <53 0.10 - 0.30 units/mL ? 53 - 67 0.30 - 0.70 units/mL* ?67 - 95* 0.70 - 1.00 units/mL ?95 - 116 *corresponds to therapeutic range for unfractionated heparin ?? 03/02/2006 11:1 7 AM SHIFT SUPERINTENDENT Guru Polk MD HEMATOLOGY ORDERABLES Final Resu lt Performing Organization Address [facility] de Phone Number INTERFACE SYSTEM Refer to clinic/hospital department * POC GLUCOSE (03/02/2006 5:59 AM SHIFT SUPERINTENDENT) GLUCOSE POC 94 65 - 99 mg/dL INTERFACE SYSTEM Comment: 02/10/2006 Change in reference range to correspond to Main Lab reference range. 03/02/2006 5:59 AM SHIFT SUPERINTENDENT Tim Batres MD POINT OF CARE TESTING Final Res ult Performing Organization Address [facility] de Phone Number INTERFACE SYSTEM Refer to clinic/hospital department * PT AND APTT (03/02/2006 5:45 AM SHIFT SUPERINTENDENT) PROTIME 14.8 12.7 - 15.1 Seconds INTERFACE SYSTEM INR 1.1 0.9 - 1.1 INTERFACE SYSTEM Comment: INR Therapeutic Range: Adult: 2.0 - 3.0 for pulmonary embolism or prophylaxis against venous thrombosis or systemic embolization. 2.0 - 3.0 for patients with tissue heart valves. ?? 2.5 - 3.5 for patients with mechanical heart valves or post NC. Pediatric ??(12 years and under): 1.5 - 3.0 Although the target range in children is not well established , INR values of 1.5 - 3.0 are recommended for most patients. Higher values have been used in children with prosthetic cardiac valves and hereditary clotting disorders. (<3 days) therapeutic ranges have not been established. PTT 32.0 24.4 - 36.4 Seconds INTERFACE SYSTEM Comment: PTT Therapeutic Range: Heparin Level ? PTT (seconds) <0.10 units/mL ? <53 0.10 - 0.30 units/mL ? 53 - 67 0.30 - 0.70 units/mL* ?67 - 95* 0.70 - 1.00 units/mL ?95 - 116 *corresponds to therapeutic range for unfractionated heparin ?? 03/02/2006 5:45 AM SHIFT SUPERINTENDENT Tim Batres MD HEMATOLOGY ORDERABLES Final Res ult Performing Organization Address [facility] Phone Number INTERFACE SYSTEM Refer to clinic/hospital department * CBC WITH DIFFERENTIAL (03/02/2006 5:45 AM SHIFT SUPERINTENDENT) ANISOCYTOSIS Slight INTERFA CE SYSTEM POIKILOCYTES Slight INTERFA CE SYSTEM ACANTHOCYTES Slight INTERFA CE SYSTEM 03/02/2006 5:45 AM SHIFT SUPERINTENDENT us Evelyn Garcia DO HEMATOLOGY ORDERABLES Fi nal Result Performing Organization Address [facility] de Phone Number INTERFACE SYSTEM Refer to clinic/hospital department * CBC WITH DIFFERENTIAL (03/02/2006 5:45 AM SHIFT SUPERINTENDENT) NEUTROPHILS 70 45 - 70 % INTERFAC E SYSTEM LYMPHOCYTES 21 16 - 45 % INTERFAC E SYSTEM MONOCYTES 8 3 - 13 % INTERFACE SYSTEM EOSINOPHILS 1 0 - 7 % INTERFAC E SYSTEM BASOPHILS 1 0 - 2 % INTERFACE SYSTEM NEUTROPHIL ABSOLUTE 3.79 1.90 - 7.00 K/uL INTERFACE SYSTEM LYMPHOCYTE ABSOLUTE 1.13 0.70 - 4.50 K/uL INTERFACE SYSTEM MONOCYTE ABSOLUTE 0.42 0.10 - 1.30 K/uL INTERFACE SYSTEM EOSINOPHIL ABSOLUTE 0.05 0.00 - 0.70 K/uL INTERFACE SYSTEM BASOPHILS ABSOLUTE 0.04 0.00 - 0.20 K/uL INTERFACE SYSTEM 03/02/2006 5:45 AM SHIFT SUPERINTENDENT us Evelyn Garcia DO HEMATOLOGY ORDERABLES Fi nal Result Performing Organization Address [facility] Co de Phone Number INTERFACE SYSTEM Refer to clinic/hospital department * (ABNORMAL) CBC WITH DIFFERENTIAL (03/02/2006 5:45 AM SHIFT SUPERINTENDENT) WBC 5.4 4.0 - 9.8 K/uL INTERFACE SYSTEM RBC 2.49(L) 4.50 - 5.40 M/uL INTERFACE SYSTEM HEMOGLOBIN 7.3(AA) 13.6 - 16.5 g/dL INTERFACE SYSTEM Comment:Persistent abnormal result HEMATOCRIT 23.1(AA) 40.0 - 48.0 % INTERFACE SYSTEM MCV 92.8 82.0 - 99.0 fL INTERFACE SYSTEM MCH 29.3 27.2 - 32.6 pg INTERFACE SYSTEM MCHC 31.6 31.5 - 35.5 % INTERFACE SYSTEM RDW 16.1(H) 11.5 - 14.5 % INTERFACE SYSTEM RDW-STDEV 55.2(H) 37.1 - 48.7 fL INTERFACE SYSTEM PLATELETS 303 140 - 350 K/uL INTERFACE SYSTEM MPV 9.0(L) 9.3 - 12.4 fL INTERFACE SYSTEM 03/02/2006 5:45 AM SHIFT SUPERINTENDENT us Evelyn Garcia DO HEMATOLOGY ORDERABLES Fi nal Result Performing Organization Address [facility]/ZIP Co de Phone Number INTERFACE SYSTEM Refer to clinic/hospital department * PHOSPHORUS (03/02/2006 5:45 AM SHIFT SUPERINTENDENT) PHOSPHORUS 4.5 2.5 - 4.5 mg/dL INTERFACE SYSTEM 03/02/2006 5:45 AM SHIFT SUPERINTENDENT us Evelyn Garcia DO CHEMISTRY ORDERABLES Fin al Result Performing Organization Address [facility] Phone Number INTERFACE SYSTEM Refer to clinic/hospital department * MAGNESIUM LEVEL (03/02/2006 5:45 AM SHIFT SUPERINTENDENT) MAGNESIUM 1.5 1.5 - 2.5 mg/dL INTERFACE SYSTEM 03/02/2006 5:45 AM SHIFT SUPERINTENDENT Evelyn Arriolabrody DO CHEMISTRY ORDERABLES Fin al Result Performing Organization Address [facility] Phone Number INTERFACE SYSTEM Refer to clinic/hospital department * (ABNORMAL) BASIC METABOLIC PANEL (03/02/2006 5:45 AM SHIFT SUPERINTENDENT) GLUCOSE 74 65 - 99 mg/dL INTERFACE SYSTEM CREATININE 4.48(H) 0.67 - 1.17 mg/dL INTERFACE SYSTEM Comment: Note: Effective 02/08/2006 New Methodology and Reference Ranges Significant change from prior result, correlate clinically and redraw if necessary. CALCIUM 8.1(L) 8.4 - 10.2 mg/dL INTERFACE SYSTEM BUN 32(H) 6 - 20 mg/dL INTERFACE SYSTEM SODIUM 144 135 - 145 mmol/L INTERFACE SYSTEM POTASSIUM 4.2 3.5 - 4.9 mmol/L INTERFACE SYSTEM CHLORIDE 104 96 - 108 mmol/L INTERFACE SYSTEM CO2 29 22 - 30 mmol/L INTERFACE SYSTEM GFR, 17(L) >=60 mL/min/1. 7 sq meter INTERFACE SYSTEM GFR 14(L) >=60 mL/min/1. 7 sq meter INTERFACE SYSTEM Comment: Estimated GFR rate interpretative information for both Americans and non- Americans is available on the [facility] Intranet at: [email or web address] Select: Lab Policies and Procedures Select: Reference Ranges - GFR 03/02/2006 5:45 AM SHIFT SUPERINTENDENT Evelyn Aguilarramone DO CHEMISTRY ORDERABLES Fin al Result Performing Organization Address [facility] de Phone Number INTERFACE SYSTEM Refer to clinic/hospital department * CKMB W/REFLEX CK (03/02/2006 5:45 AM SHIFT SUPERINTENDENT) CKMB 3.3 <=6.7 ng/mL INTERFACE SYSTEM CKMB INTERP Negative INTERFAC E SYSTEM 03/02/2006 5:45 AM SHIFT SUPERINTENDENT us Evelyn A Garretto DO CHEMISTRY ORDERABLES Fin al Result INTERFACE SYSTEM Refer to clinic/hospital department * (ABNORMAL) TROPONIN (W/REFLEX CKMB/CK) (03/02/2006 5:45 AM SHIFT SUPERINTENDENT) TROPONIN T 0.19(AA) <=0.03 ng/mL INTERFACE SYSTEM Comment:Persistent abnormal result TROPONIN T INTERP See Below INTERFACE SYSTEM Comment:Elevated Troponin-T, Consistent with Myocardial Injury 03/02/2006 5:45 AM SHIFT SUPERINTENDENT us Evelyn Garcia DO CHEMISTRY ORDERABLES Fin al Result Performing Organization Address [facility] de Phone Number INTERFACE SYSTEM Refer to clinic/hospital department documented in this encounter Visit Diagnoses Diagnosis Other chest pain- Primary Renal dialysis status Atrial fibrillation ([facility]) Atrial fibrillation 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 or end stage renal disease(403.91) (CMS/HCC) 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 or end stage renal disease End stage renal disease (CMS/HCC) End stage renal disease Urinary tract infection, site not specified Type II or unspecified type diabetes mellitus without mention of complication, not stated as uncontrolled (CMS/[facility]) Type II or unspecified type diabetes mellitus without mention of complication, not stated as uncontrolled Anemia, unspecified documented in this encounter Care Teams Churn Driller Relationship Specialty Start Date End Date Morgan Mercado MD [address] [place] [id number] PCP - General Family Practice 11/02/16 documented as of this encounter
--- OUTSIDE RECORDS SUMMARY | 2024-05-01 09:26 | XMS_ITS | Encounter Summary ---
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 GLUCOSE (02/22/2006 9:06 PM FINANCIAL SALES MANAGER) GLUCOSE POC 105(H) 65 - 99 mg/dL INTERFACE SYSTEM Comment: 02/10/2006 Change in reference range to correspond to Main Lab reference range. 02/22/2006 9:06 PM FINANCIAL SALES MANAGER us Warren Renner MD POINT OF CARE TESTING Final Res ult Performing Organization Address [facility] Phone Number INTERFACE SYSTEM Refer to clinic/hospital department * (ABNORMAL) POC GLUCOSE (02/22/2006 4:42 PM FINANCIAL SALES MANAGER) GLUCOSE POC 108(H) 65 - 99 mg/dL INTERFACE SYSTEM Comment: 02/10/2006 Change in reference range to correspond to Main Lab reference range. 02/22/2006 4:42 PM FINANCIAL SALES MANAGER Warren Renner MD POINT OF CARE TESTING Final Res ult Performing Organization Address [facility] Phone Number INTERFACE SYSTEM Refer to clinic/hospital department * POC GLUCOSE (02/22/2006 11:40 AM FINANCIAL SALES MANAGER) GLUCOSE POC 92 65 - 99 mg/dL INTERFACE SYSTEM Comment: 02/10/2006 Change in reference range to correspond to Main Lab reference range. 02/22/2006 11:4 0 AM FINANCIAL SALES MANAGER Warren Renner MD POINT OF CARE TESTING Final Res ult Performing Organization Address [facility] Number INTERFACE SYSTEM Refer to clinic/hospital department * (ABNORMAL) CBC WITH DIFFERENTIAL (02/22/2006 5:20 AM FINANCIAL SALES MANAGER) Pathologist [facility] NEUTROPHILS 75(H) 45 - 70 % INTERFAC E SYSTEM LYMPHOCYTES 17 16 - 45 % INTERFAC E SYSTEM MONOCYTES 7 3 - 13 % INTERFACE SYSTEM EOSINOPHILS 1 0 - 7 % INTERFAC E SYSTEM BASOPHILS 1 0 - 2 % INTERFACE SYSTEM NEUTROPHIL ABSOLUTE 5.98 1.90 - 7.00 K/uL INTERFACE SYSTEM LYMPHOCYTE ABSOLUTE 1.33 0.70 - 4.50 K/uL INTERFACE SYSTEM MONOCYTE ABSOLUTE 0.53 0.10 - 1.30 K/uL INTERFACE SYSTEM EOSINOPHIL ABSOLUTE 0.06 0.00 - 0.70 K/uL INTERFACE SYSTEM BASOPHILS ABSOLUTE 0.04 0.00 - 0.20 K/uL INTERFACE SYSTEM 02/22/2006 5:20 AM FINANCIAL SALES MANAGER Abhinav Barton MD HEMATOLOGY ORDERABLES Final Result Performing Organization Address [facility] Phone Number INTERFACE SYSTEM Refer to clinic/hospital department * (ABNORMAL) CBC WITH DIFFERENTIAL (02/22/2006 5:20 AM FINANCIAL SALES MANAGER) WBC 7.9 4.0 - 9.8 K/uL INTERFACE SYSTEM RBC 2.71(L) 4.50 - 5.40 M/uL INTERFACE SYSTEM HEMOGLOBIN 8.0(L) 13.6 - 16.5 g/dL INTERFACE SYSTEM HEMATOCRIT 24.4(L) 40.0 - 48.0 % INTERFACE SYSTEM MCV 90.0 82.0 - 99.0 fL INTERFACE SYSTEM MCH 29.5 27.2 - 32.6 pg INTERFACE SYSTEM MCHC 32.8 31.5 - 35.5 % INTERFACE SYSTEM RDW 15.8(H) 11.5 - 14.5 % INTERFACE SYSTEM RDW-STDEV 51.9(H) 37.1 - 48.7 fL INTERFACE SYSTEM PLATELETS 312 140 - 350 K/uL INTERFACE SYSTEM MPV 8.6(L) 9.3 - 12.4 fL INTERFACE SYSTEM 02/22/2006 5:20 AM FINANCIAL SALES MANAGER Abhinav Barton MD HEMATOLOGY ORDERABLES Final Result INTERFACE SYSTEM Refer to clinic/hospital department * (ABNORMAL) BASIC METABOLIC PANEL (02/22/2006 5:20 AM FINANCIAL SALES MANAGER) GLUCOSE 85 65 - 99 mg/dL INTERFACE SYSTEM CREATININE 5.15(H) 0.67 - 1.17 mg/dL INTERFACE SYSTEM Comment:Note: Effective 01/26 New Methodology and Reference Ranges CALCIUM 8.6 8.4 - 10.2 mg/dL INTERFACE SYSTEM BUN 44(H) 6 - 20 mg/dL INTERFACE SYSTEM SODIUM 134(L) 135 - 145 mmol/L INTERFACE SYSTEM POTASSIUM 4.7 3.5 - 4.9 mmol/L INTERFACE SYSTEM CHLORIDE 93(L) 96 - 108 mmol/L INTERFACE SYSTEM CO2 28 22 - 30 mmol/L INTERFACE SYSTEM GFR, 14(L) >=60 mL/min/1. 7 sq meter INTERFACE SYSTEM GFR 12(L) >=60 mL/min/1. 7 sq meter INTERFACE SYSTEM Comment: Estimated GFR rate interpretative information for both Americans and non- Americans is available on the [facility] [place] at: [email or web address] Select: Lab Policies and Procedures Select: Reference Ranges - GFR 02/22/2006 5:20 AM FINANCIAL SALES MANAGER Abhinav Barton MD CHEMISTRY ORDERABLES Final Result Performing Organization Address [facility] Phone Number INTERFACE SYSTEM Refer to clinic/hospital department * POC GLUCOSE (02/22/2006 5:09 AM FINANCIAL SALES MANAGER) GLUCOSE POC 92 65 - 99 mg/dL INTERFACE SYSTEM Comment: 02/10/2006 Change in reference range to correspond to Main Lab reference range. 02/22/2006 5:09 AM FINANCIAL SALES MANAGER Warren Renner MD POINT OF CARE TESTING Final Res ult Performing Organization Address [facility] Phone Number INTERFACE SYSTEM Refer to clinic/hospital department * (ABNORMAL) POC GLUCOSE (02/21/2006 8:48 PM FINANCIAL SALES MANAGER) COMMENT, GLU POC Notified RN INTERFACE SYSTEM GLUCOSE POC 116(H) 65 - 99 mg/dL INTERFACE SYSTEM Comment: 02/10/2006 Change in reference range to correspond to Main Lab reference range. 02/21/2006 8:48 PM FINANCIAL SALES MANAGER Warren Renner MD POINT OF CARE TESTING Final Res ult Performing Organization Address [facility] Phone Number INTERFACE SYSTEM Refer to clinic/hospital department * POC GLUCOSE (02/21/2006 4:29 PM FINANCIAL SALES MANAGER) COMMENT, GLU POC Notified RN INTERFACE SYSTEM GLUCOSE POC 95 65 - 99 mg/dL INTERFACE SYSTEM Comment: 02/10/2006 Change in reference range to correspond to Main Lab reference range. 02/21/2006 4:29 PM FINANCIAL SALES MANAGER Warren Renner MD POINT OF CARE TESTING Final Res ult Performing Organization Address [facility] [place] Phone Number INTERFACE SYSTEM Refer to clinic/hospital department * POC GLUCOSE (02/21/2006 11:34 AM FINANCIAL SALES MANAGER) COMMENT, GLU POC Notified RN INTERFACE SYSTEM GLUCOSE POC 97 65 - 99 mg/dL INTERFACE SYSTEM Comment: 02/10/2006 Change in reference range to correspond to Main Lab reference range. 02/21/2006 11:3 4 AM FINANCIAL SALES MANAGER us Warren Renner MD POINT OF CARE TESTING Final Res ult Performing Organization Address [facility] Number INTERFACE SYSTEM Refer to clinic/hospital department * (ABNORMAL) POC GLUCOSE (02/21/2006 6:47 AM FINANCIAL SALES MANAGER) GLUCOSE POC 109(H) 65 - 99 mg/dL INTERFACE SYSTEM Comment: 02/10/2006 Change in reference range to correspond to Main Lab reference range. 02/21/2006 6:47 AM FINANCIAL SALES MANAGER us Warren Renner MD POINT OF CARE TESTING Final Res ult Performing Organization Address [facility] Number INTERFACE SYSTEM Refer to clinic/hospital department * (ABNORMAL) BASIC METABOLIC PANEL (02/21/2006 4:20 AM FINANCIAL SALES MANAGER) GLUCOSE 79 65 - 99 mg/dL INTERFACE SYSTEM CREATININE 5.08(H) 0.67 - 1.17 mg/dL INTERFACE SYSTEM Comment:Note: Effective 01/26 New Methodology and Reference Ranges CALCIUM 8.3(L) 8.4 - 10.2 mg/dL INTERFACE SYSTEM BUN 44(H) 6 - 20 mg/dL INTERFACE SYSTEM SODIUM 135 135 - 145 mmol/L INTERFACE SYSTEM POTASSIUM 4.5 3.5 - 4.9 mmol/L INTERFACE SYSTEM CHLORIDE 94(L) 96 - 108 mmol/L INTERFACE SYSTEM CO2 29 22 - 30 mmol/L INTERFACE SYSTEM 02/21/2006 4:20 AM FINANCIAL SALES MANAGER Result Roxie Renner MD CHEMISTRY ORDERABLES Final Resu lt Performing Organization Address [facility] Phone Number INTERFACE SYSTEM Refer to clinic/hospital department * (ABNORMAL) POC GLUCOSE (02/20/2006 8:35 PM FINANCIAL SALES MANAGER) GLUCOSE POC 120(H) 65 - 99 mg/dL INTERFACE SYSTEM Comment: 02/10/2006 Change in reference range to correspond to Main Lab reference range. 02/20/2006 8:35 PM FINANCIAL SALES MANAGER us Warren Renner MD POINT OF CARE TESTING Final Res ult Performing Organization Address [facility] Phone Number INTERFACE SYSTEM Refer to clinic/hospital department * (ABNORMAL) POC GLUCOSE (02/20/2006 3:52 PM FINANCIAL SALES MANAGER) COMMENT, GLU POC Notified RN INTERFACE SYSTEM GLUCOSE POC 104(H) 65 - 99 mg/dL INTERFACE SYSTEM Comment: 02/10/2006 Change in reference range to correspond to Main Lab reference range. 02/20/2006 3:52 PM FINANCIAL SALES MANAGER us Warren Renner MD POINT OF CARE TESTING Final Res ult Performing Organization Address [facility] Phone Number INTERFACE SYSTEM Refer to clinic/hospital department * (ABNORMAL) POC GLUCOSE (02/20/2006 11:02 AM FINANCIAL SALES MANAGER) GLUCOSE POC 102(H) 65 - 99 mg/dL INTERFACE SYSTEM Comment: 02/10/2006 Change in reference range to correspond to Main Lab reference range. 02/20/2006 11:0 2 AM FINANCIAL SALES MANAGER us Warren Renner MD POINT OF CARE TESTING Final Res ult Performing Organization Address [facility] Phone Number INTERFACE SYSTEM Refer to clinic/hospital department * (ABNORMAL) BASIC METABOLIC PANEL (02/20/2006 7:00 AM FINANCIAL SALES MANAGER) GLUCOSE 86 65 - 99 mg/dL INTERFACE SYSTEM CREATININE 5.03(H) 0.67 - 1.17 mg/dL INTERFACE SYSTEM Comment:Note: Effective 01/26 New Methodolgy and Reference Ranges CALCIUM 7.9(L) 8.4 - 10.2 mg/dL INTERFACE SYSTEM BUN 44(H) 6 - 20 mg/dL INTERFACE SYSTEM SODIUM 134(L) 135 - 145 mmol/L INTERFACE SYSTEM POTASSIUM 4.4 3.5 - 4.9 mmol/L INTERFACE SYSTEM CHLORIDE 93(L) 96 - 108 mmol/L INTERFACE SYSTEM CO2 30 22 - 30 mmol/L INTERFACE SYSTEM 02/20/2006 7:00 AM FINANCIAL SALES MANAGER Abhinav Barton MD CHEMISTRY ORDERABLES Final Result Performing Organization Address [facility] Phone Number INTERFACE SYSTEM Refer to clinic/hospital department * (ABNORMAL) POC GLUCOSE (02/20/2006 5:39 AM FINANCIAL SALES MANAGER) COMMENT, GLU POC Notified RN INTERFACE SYSTEM GLUCOSE POC 100(H) 65 - 99 mg/dL INTERFACE SYSTEM Comment: 02/10/2006 Change in reference range to correspond to Main Lab reference range. 02/20/2006 5:39 AM FINANCIAL SALES MANAGER Warren Renner MD POINT OF CARE TESTING Final Res ult Performing Organization Address [facility] Number INTERFACE SYSTEM Refer to clinic/hospital department * (ABNORMAL) POC GLUCOSE (02/19/2006 9:24 PM FINANCIAL SALES MANAGER) COMMENT, GLU POC Notified RN INTERFACE SYSTEM GLUCOSE POC 108(H) 65 - 99 mg/dL INTERFACE SYSTEM Comment: 02/10/2006 Change in reference range to correspond to Main Lab reference range. 02/19/2006 9:24 PM FINANCIAL SALES MANAGER Warren Renner MD POINT OF CARE TESTING Final Res ult Performing Organization Address [facility] Phone Number INTERFACE SYSTEM Refer to clinic/hospital department * (ABNORMAL) POC GLUCOSE (02/19/2006 4:03 PM FINANCIAL SALES MANAGER) COMMENT, GLU POC Notified RN INTERFACE SYSTEM GLUCOSE POC 154(H) 65 - 99 mg/dL INTERFACE SYSTEM Comment: 02/10/2006 Change in reference range to correspond to Main Lab reference range. 02/19/2006 4:03 PM FINANCIAL SALES MANAGER Warren Renner MD POINT OF CARE TESTING Final Res ult Performing Organization Address [facility] Phone Number INTERFACE SYSTEM Refer to clinic/hospital department * (ABNORMAL) POC GLUCOSE (02/19/2006 11:01 AM FINANCIAL SALES MANAGER) GLUCOSE POC 110(H) 65 - 99 mg/dL INTERFACE SYSTEM Comment: 02/10/2006 Change in reference range to correspond to Main Lab reference range. 02/19/2006 11:0 1 AM FINANCIAL SALES MANAGER Warren Renner MD POINT OF CARE TESTING Final Res ult Performing Organization Address [facility] Phone Number INTERFACE SYSTEM Refer to clinic/hospital department * (ABNORMAL) CBC WITH DIFFERENTIAL (02/19/2006 7:35 AM FINANCIAL SALES MANAGER) NEUTROPHILS 72(H) 45 - 70 % INTERFAC E SYSTEM LYMPHOCYTES 17 16 - 45 % INTERFAC E SYSTEM MONOCYTES 9 3 - 13 % INTERFACE SYSTEM EOSINOPHILS 2 0 - 7 % INTERFAC E SYSTEM BASOPHILS 1 0 - 2 % INTERFACE SYSTEM NEUTROPHIL ABSOLUTE 4.31 1.90 - 7.00 K/uL INTERFACE SYSTEM LYMPHOCYTE ABSOLUTE 1.05 0.70 - 4.50 K/uL INTERFACE SYSTEM MONOCYTE ABSOLUTE 0.53 0.10 - 1.30 K/uL INTERFACE SYSTEM EOSINOPHIL ABSOLUTE 0.10 0.00 - 0.70 K/uL INTERFACE SYSTEM BASOPHILS ABSOLUTE 0.03 0.00 - 0.20 K/uL INTERFACE SYSTEM 02/19/2006 7:35 AM FINANCIAL SALES MANAGER Vivian Barrett MD HEMATOLOGY ORDERABLES Final R esult Performing Organization Address [facility] Phone Number INTERFACE SYSTEM Refer to clinic/hospital department * (ABNORMAL) CBC WITH DIFFERENTIAL (02/19/2006 7:35 AM FINANCIAL SALES MANAGER) WBC 6.0 4.0 - 9.8 K/uL INTERFACE SYSTEM RBC 2.88(L) 4.50 - 5.40 M/uL INTERFACE SYSTEM HEMOGLOBIN 8.3(L) 13.6 - 16.5 g/dL INTERFACE SYSTEM HEMATOCRIT 26.2(L) 40.0 - 48.0 % INTERFACE SYSTEM MCV 91.0 82.0 - 99.0 fL INTERFACE SYSTEM MCH 28.8 27.2 - 32.6 pg INTERFACE SYSTEM MCHC 31.7 31.5 - 35.5 % INTERFACE SYSTEM RDW 15.4(H) 11.5 - 14.5 % INTERFACE SYSTEM RDW-STDEV 51.0(H) 37.1 - 48.7 fL INTERFACE SYSTEM PLATELETS 291 140 - 350 K/uL INTERFACE SYSTEM MPV 8.8(L) 9.3 - 12.4 fL INTERFACE SYSTEM 02/19/2006 7:35 AM FINANCIAL SALES MANAGER us Vivian Barrett MD HEMATOLOGY ORDERABLES Final R esult Performing Organization Address [facility] Co [place] Phone Number INTERFACE SYSTEM Refer to clinic/hospital department * (ABNORMAL) BASIC METABOLIC PANEL (02/19/2006 7:35 AM FINANCIAL SALES MANAGER) GLUCOSE 88 65 - 99 mg/dL INTERFACE SYSTEM CREATININE 5.01(H) 0.67 - 1.17 mg/dL INTERFACE SYSTEM Comment:Note: Effective 01/26 New Methodolgy and Reference Ranges CALCIUM 8.0(L) 8.4 - 10.2 mg/dL INTERFACE SYSTEM BUN 38(H) 6 - 20 mg/dL INTERFACE SYSTEM SODIUM 136 135 - 145 mmol/L INTERFACE SYSTEM POTASSIUM 4.5 3.5 - 4.9 mmol/L INTERFACE SYSTEM CHLORIDE 95(L) 96 - 108 mmol/L INTERFACE SYSTEM CO2 28 22 - 30 mmol/L INTERFACE SYSTEM 02/19/2006 7:35 AM FINANCIAL SALES MANAGER us Abhinav Barton MD CHEMISTRY ORDERABLES Final Result Performing Organization Address [facility]/ZIP Co de Phone Number INTERFACE SYSTEM Refer to clinic/hospital department * POC GLUCOSE (02/19/2006 6:03 AM FINANCIAL SALES MANAGER) COMMENT, GLU POC Notified RN INTERFACE SYSTEM GLUCOSE POC 99 65 - 99 mg/dL INTERFACE SYSTEM Comment: 02/10/2006 Change in reference range to correspond to Main Lab reference range. 02/19/2006 6:03 AM FINANCIAL SALES MANAGER us Warren Renner MD POINT OF CARE TESTING Final Res ult Performing Organization Address [facility] Phone Number INTERFACE SYSTEM Refer to clinic/hospital department * (ABNORMAL) POC GLUCOSE (02/18/2006 8:46 PM FINANCIAL SALES MANAGER) COMMENT, GLU POC Notified RN INTERFACE SYSTEM GLUCOSE POC 108(H) 65 - 99 mg/dL INTERFACE SYSTEM Comment: 02/10/2006 Change in reference range to correspond to Main Lab reference range. 02/18/2006 8:46 PM FINANCIAL SALES MANAGER us Warren Renner MD POINT OF CARE TESTING Final Res ult Performing Organization Address [facility] Phone Number INTERFACE SYSTEM Refer to clinic/hospital department * (ABNORMAL) POC GLUCOSE (02/18/2006 4:05 PM FINANCIAL SALES MANAGER) COMMENT, GLU POC Notified RN INTERFACE SYSTEM GLUCOSE POC 123(H) 65 - 99 mg/dL INTERFACE SYSTEM Comment: 02/10/2006 Change in reference range to correspond to Main Lab reference range. 02/18/2006 4:05 PM FINANCIAL SALES MANAGER us Warren Renner MD POINT OF CARE TESTING Final Res ult Performing Organization Address [facility] Phone Number INTERFACE SYSTEM Refer to clinic/hospital department * (ABNORMAL) POC GLUCOSE (02/18/2006 11:37 AM FINANCIAL SALES MANAGER) COMMENT, GLU POC Notified RN INTERFACE SYSTEM GLUCOSE POC 107(H) 65 - 99 mg/dL INTERFACE SYSTEM Comment: 02/10/2006 Change in reference range to correspond to Main Lab reference range. 02/18/2006 11:3 7 AM FINANCIAL SALES MANAGER us Warren Renner MD POINT OF CARE TESTING Final Res ult Performing Organization Address [facility] Phone Number INTERFACE SYSTEM Refer to clinic/hospital department * (ABNORMAL) BASIC METABOLIC PANEL (02/18/2006 5:50 AM FINANCIAL SALES MANAGER) GLUCOSE 81 65 - 99 mg/dL INTERFACE SYSTEM CREATININE 5.09(H) 0.67 - 1.17 mg/dL INTERFACE SYSTEM Comment:Note: Effective 01/26 New Methodology and Reference Ranges CALCIUM 8.0(L) 8.4 - 10.2 mg/dL INTERFACE SYSTEM BUN 37(H) 6 - 20 mg/dL INTERFACE SYSTEM SODIUM 137 135 - 145 mmol/L INTERFACE SYSTEM POTASSIUM 4.5 3.5 - 4.9 mmol/L INTERFACE SYSTEM CHLORIDE 94(L) 96 - 108 mmol/L INTERFACE SYSTEM CO2 27 22 - 30 mmol/L INTERFACE SYSTEM 02/18/2006 5:50 AM FINANCIAL SALES MANAGER Abhinav Barton MD CHEMISTRY ORDERABLES Final Result Performing Organization Address [facility] Phone Number INTERFACE SYSTEM Refer to clinic/hospital department * (ABNORMAL) POC GLUCOSE (02/18/2006 5:02 AM FINANCIAL SALES MANAGER) GLUCOSE POC 105(H) 65 - 99 mg/dL INTERFACE SYSTEM Comment: 02/10/2006 Change in reference range to correspond to Main Lab reference range. 02/18/2006 5:02 AM FINANCIAL SALES MANAGER Warren Renner MD POINT OF CARE TESTING Final Res ult Performing Organization Address [facility] Phone Number INTERFACE SYSTEM Refer to clinic/hospital department * (ABNORMAL) POC GLUCOSE (02/17/2006 9:12 PM FINANCIAL SALES MANAGER) GLUCOSE POC 110(H) 65 - 99 mg/dL INTERFACE SYSTEM Comment: 02/10/2006 Change in reference range to correspond to Main Lab reference range. 02/17/2006 9:12 PM FINANCIAL SALES MANAGER Warren Renner MD POINT OF CARE TESTING Final Res ult Performing Organization Address [facility] de Phone Number INTERFACE SYSTEM Refer to clinic/hospital department * POC GLUCOSE (02/17/2006 4:04 PM FINANCIAL SALES MANAGER) GLUCOSE POC 98 65 - 99 mg/dL INTERFACE SYSTEM Comment: 02/10/2006 Change in reference range to correspond to Main Lab reference range. 02/17/2006 4:04 PM FINANCIAL SALES MANAGER us Warren Renner MD POINT OF CARE TESTING Final Res ult Performing Organization Address [facility] Phone Number INTERFACE SYSTEM Refer to clinic/hospital department * POC GLUCOSE (02/17/2006 11:26 AM FINANCIAL SALES MANAGER) COMMENT, GLU POC Notified RN INTERFACE SYSTEM GLUCOSE POC 86 65 - 99 mg/dL INTERFACE SYSTEM Comment: 02/10/2006 Change in reference range to correspond to Main Lab reference range. 02/17/2006 11:2 6 AM FINANCIAL SALES MANAGER us Warren Renner MD POINT OF CARE TESTING Final Res ult Performing Organization Address [facility] Phone Number INTERFACE SYSTEM Refer to clinic/hospital department * POC GLUCOSE (02/17/2006 5:23 AM FINANCIAL SALES MANAGER) GLUCOSE POC 92 65 - 99 mg/dL INTERFACE SYSTEM Comment: 02/10/2006 Change in reference range to correspond to Main Lab reference range. 02/17/2006 5:23 AM FINANCIAL SALES MANAGER us Warren Renner MD POINT OF CARE TESTING Final Res ult Performing Organization Address [facility] Phone Number INTERFACE SYSTEM Refer to clinic/hospital department * (ABNORMAL) BASIC METABOLIC PANEL (02/17/2006 5:00 AM FINANCIAL SALES MANAGER) GLUCOSE 74 65 - 99 mg/dL INTERFACE SYSTEM CREATININE 5.16(H) 0.67 - 1.17 mg/dL INTERFACE SYSTEM Comment:Note: Effective 01/26 New Methodolgy and Reference Ranges CALCIUM 8.0(L) 8.4 - 10.2 mg/dL INTERFACE SYSTEM BUN 35(H) 6 - 20 mg/dL INTERFACE SYSTEM SODIUM 133(L) 135 - 145 mmol/L INTERFACE SYSTEM POTASSIUM 3.9 3.5 - 4.9 mmol/L INTERFACE SYSTEM CHLORIDE 92(L) 96 - 108 mmol/L INTERFACE SYSTEM CO2 32(H) 22 - 30 mmol/L INTERFACE SYSTEM 02/17/2006 5:00 AM FINANCIAL SALES MANAGER Abhinav Barton MD CHEMISTRY ORDERABLES Final Result Performing Organization Address [facility] Phone Number INTERFACE SYSTEM Refer to clinic/hospital department * POC GLUCOSE (02/16/2006 10:48 PM FINANCIAL SALES MANAGER) GLUCOSE POC 91 65 - 99 mg/dL INTERFACE SYSTEM Comment: 02/10/2006 Change in reference range to correspond to Main Lab reference range. 02/16/2006 10:4 8 PM FINANCIAL SALES MANAGER Warren Renner MD POINT OF CARE TESTING Final Res ult Performing Organization Address [facility] Phone Number INTERFACE SYSTEM Refer to clinic/hospital department * POC GLUCOSE (02/16/2006 4:32 PM FINANCIAL SALES MANAGER) COMMENT, GLU POC Notified RN INTERFACE SYSTEM GLUCOSE POC 89 65 - 99 mg/dL INTERFACE SYSTEM Comment: 02/10/2006 Change in reference range to correspond to Main Lab reference range. 02/16/2006 4:32 PM FINANCIAL SALES MANAGER Warren Renner MD POINT OF CARE TESTING Final Res ult Performing Organization Address [facility] Phone Number INTERFACE SYSTEM Refer to clinic/hospital department * (ABNORMAL) BASIC METABOLIC PANEL (02/16/2006 12:03 PM FINANCIAL SALES MANAGER) GLUCOSE 81 65 - 99 mg/dL INTERFACE SYSTEM CREATININE 4.91(H) 0.67 - 1.17 mg/dL INTERFACE SYSTEM Comment:Note: Effective 01/26 New Methodolgy and Reference Ranges CALCIUM 7.9(L) 8.4 - 10.2 mg/dL INTERFACE SYSTEM BUN 31(H) 6 - 20 mg/dL INTERFACE SYSTEM SODIUM 135 135 - 145 mmol/L INTERFACE SYSTEM POTASSIUM 4.0 3.5 - 4.9 mmol/L INTERFACE SYSTEM CHLORIDE 94(L) 96 - 108 mmol/L INTERFACE SYSTEM CO2 31(H) 22 - 30 mmol/L INTERFACE SYSTEM 02/16/2006 12:0 3 PM FINANCIAL SALES MANAGER Abhinav Barton MD CHEMISTRY ORDERABLES Final Result Performing Organization Address [facility] Phone Number INTERFACE SYSTEM Refer to clinic/hospital department * (ABNORMAL) POC GLUCOSE (02/16/2006 11:45 AM FINANCIAL SALES MANAGER) COMMENT, GLU POC Notified RN INTERFACE SYSTEM GLUCOSE POC 102(H) 65 - 99 mg/dL INTERFACE SYSTEM Comment: 02/10/2006 Change in reference range to correspond to Main Lab reference range. 02/16/2006 11:4 5 AM FINANCIAL SALES MANAGER Warren Renner MD POINT OF CARE TESTING Final Res ult Performing Organization Address [facility] Phone Number INTERFACE SYSTEM Refer to clinic/hospital department * (ABNORMAL) POC GLUCOSE (02/16/2006 8:06 AM FINANCIAL SALES MANAGER) COMMENT, GLU POC Notified RN INTERFACE SYSTEM GLUCOSE POC 100(H) 65 - 99 mg/dL INTERFACE SYSTEM Comment: 02/10/2006 Change in reference range to correspond to Main Lab reference range. 02/16/2006 8:06 AM FINANCIAL SALES MANAGER Warren Renner MD POINT OF CARE TESTING Final Res ult Performing Organization Address [facility] Number INTERFACE SYSTEM Refer to clinic/hospital department * VANCOMYCIN LEVEL RANDOM (02/16/2006 5:50 AM FINANCIAL SALES MANAGER) VANCOMYCIN, RANDOM 10.7 ug/mL INTERFACE SYSTEM Comment: Vancomycin Trough Therapeutic Range = 5.0 - 15.0 ug/mL Vancomycin Trough Toxic Level = >15.0 ug/mL Vancomycin Peak Therapeutic Range = 20.0 - 40.0 ug/mL Vancomycin Peak Toxic Level = >40.0 ug/mL 02/16/2006 5:50 AM FINANCIAL SALES MANAGER Tobi Tubbs MD CHEMISTRY ORDERABLES Final Result Performing Organization Address [facility] Phone Number INTERFACE SYSTEM Refer to clinic/hospital department * POC GLUCOSE (02/15/2006 9:10 PM FINANCIAL SALES MANAGER) COMMENT, GLU POC Notified RN INTERFACE SYSTEM GLUCOSE POC 97 65 - 99 mg/dL INTERFACE SYSTEM Comment: 02/10/2006 Change in reference range to correspond to Main Lab reference range. 02/15/2006 9:10 PM FINANCIAL SALES MANAGER us Warren Renner MD POINT OF CARE TESTING Final Res ult Performing Organization Address [facility] Phone Number INTERFACE SYSTEM Refer to clinic/hospital department * (ABNORMAL) POC GLUCOSE (02/15/2006 3:52 PM FINANCIAL SALES MANAGER) COMMENT, GLU POC Notified RN INTERFACE SYSTEM GLUCOSE POC 102(H) 65 - 99 mg/dL INTERFACE SYSTEM Comment: 02/10/2006 Change in reference range to correspond to Main Lab reference range. 02/15/2006 3:52 PM FINANCIAL SALES MANAGER us Warren Renner MD POINT OF CARE TESTING Final Res ult Performing Organization Address [facility] Phone Number INTERFACE SYSTEM Refer to clinic/hospital department * POC GLUCOSE (02/15/2006 11:43 AM FINANCIAL SALES MANAGER) COMMENT, GLU POC Notified RN INTERFACE SYSTEM GLUCOSE POC 90 65 - 99 mg/dL INTERFACE SYSTEM Comment: 02/10/2006 Change in reference range to correspond to Main Lab reference range. 02/15/2006 11:4 3 AM FINANCIAL SALES MANAGER us Warren Renner MD POINT OF CARE TESTING Final Res ult Performing Organization Address [facility] Phone Number INTERFACE SYSTEM Refer to clinic/hospital department * (ABNORMAL) BASIC METABOLIC PANEL (02/15/2006 6:45 AM FINANCIAL SALES MANAGER) GLUCOSE 85 65 - 99 mg/dL INTERFACE SYSTEM CREATININE 4.52(H) 0.67 - 1.17 mg/dL INTERFACE SYSTEM Comment:Note: Effective 01/26 New Methodolgy and Reference Ranges CALCIUM 7.9(L) 8.4 - 10.2 mg/dL INTERFACE SYSTEM BUN 26(H) 6 - 20 mg/dL INTERFACE SYSTEM SODIUM 135 135 - 145 mmol/L INTERFACE SYSTEM POTASSIUM 3.9 3.5 - 4.9 mmol/L INTERFACE SYSTEM CHLORIDE 94(L) 96 - 108 mmol/L INTERFACE SYSTEM CO2 34(H) 22 - 30 mmol/L INTERFACE SYSTEM 02/15/2006 6:45 AM FINANCIAL SALES MANAGER Result [facility] Abhianv Barton MD CHEMISTRY ORDERABLES Final Result Performing Organization Address [facility] Phone Number INTERFACE SYSTEM Refer to clinic/hospital department * (ABNORMAL) POC GLUCOSE (02/15/2006 5:06 AM FINANCIAL SALES MANAGER) COMMENT, GLU POC Notified RN INTERFACE SYSTEM GLUCOSE POC 101(H) 65 - 99 mg/dL INTERFACE SYSTEM Comment: 02/10/2006 Change in reference range to correspond to Main Lab reference range. 02/15/2006 5:06 AM FINANCIAL SALES MANAGER Warren Renner MD POINT OF CARE TESTING Final Res ult Performing Organization Address [facility] Phone Number INTERFACE SYSTEM Refer to clinic/hospital department * (ABNORMAL) POC GLUCOSE (02/14/2006 9:46 PM FINANCIAL SALES MANAGER) GLUCOSE POC 106(H) 65 - 99 mg/dL INTERFACE SYSTEM Comment: 02/10/2006 Change in reference range to correspond to Main Lab reference range. 02/14/2006 9:46 PM FINANCIAL SALES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
--- OUTSIDE RECORDS SUMMARY | 2024-05-01 09:28 | XMS_ITS | Encounter Summary ---
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 01/07/2006 9:30 PM CDT CBC WITH DIFFERENTIAL Routine 01/07/2006 9:30 PM CDT PTT Routine 01/07/2006 9:30 PM CDT TROPONIN Routine 01/07/2006 9:30 PM CDT PHOSPHORUS Routine 01/07/2006 9:30 PM CDT MAGNESIUM LEVEL Routine 01/07/2006 9:30 PM CDT CK Routine 01/07/2006 9:30 PM CDT CALCIUM IONIZED Routine 01/07/2006 9:30 PM CDT BASIC METABOLIC PANEL Routine 01/07/2006 9:30 PM CDT PTT Routine 01/07/2006 6:05 PM CDT PT AND APTT Routine 01/07/2006 4:00 PM CDT LACTIC ACID Routine 01/07/2006 4:00 PM CDT CBC WITH DIFFERENTIAL Routine 01/07/2006 4:00 PM CDT CBC WITH DIFFERENTIAL Routine 01/07/2006 4:00 PM CDT PHOSPHORUS Routine 01/07/2006 4:00 PM CDT MAGNESIUM LEVEL Routine 01/07/2006 4:00 PM CDT BLOOD GAS ARTERIAL Routine 01/07/2006 4: 00 PM CDT CALCIUM IONIZED Routine 01/07/2006 4:00 PM CDT BASIC METABOLIC PANEL Routine 01/07/2006 4:00 PM CDT PT AND APTT Routine 01/07/2006 3:21 PM CDT CKMB W/REFLEX CK Routine 01/07/2006 3:20 PM CDT CALCIUM IONIZED Routine 01/07/2006 3:20 PM CDT CBC WITH DIFFERENTIAL Routine 01/07/2006 3:19 PM CDT CBC WITH DIFFERENTIAL Routine 01/07/2006 3:19 PM CDT PHOSPHORUS Routine 01/07/2006 3:19 PM CDT MAGNESIUM LEVEL Routine 01/07/2006 3:19 PM CDT BASIC METABOLIC PANEL Routine 01/07/2006 3:19 PM CDT BLOOD GAS ARTERIAL Routine 01/07/2006 3: 15 PM CDT POC GLUCOSE Routine 01/07/2006 12:51 PM CDT PTT Routine 01/07/2006 10:45 AM CDT CBC WITH DIFFERENTIAL Routine 01/07/2006 4:00 AM CDT CBC WITH DIFFERENTIAL Routine 01/07/2006 4:00 AM CDT PTT Routine 01/07/2006 4:00 AM CDT PHOSPHORUS Routine 01/07/2006 4:00 AM CDT MAGNESIUM LEVEL Routine 01/07/2006 4:00 AM CDT CALCIUM IONIZED Routine 01/07/2006 4:00 AM CDT BASIC METABOLIC PANEL Routine 01/07/2006 4:00 AM CDT POC GLUCOSE Routine 01/07/2006 12:24 AM CDT PTT Routine 01/06/2006 7:00 PM CDT POC GLUCOSE Routine 01/06/2006 5:26 PM CDT CKMB W/REFLEX CK Routine 01/06/2006 4:45 PM CDT TROPONIN (W/REFLEX CKMB/CK) Routine 01/06/2006 4:45 PM CDT PHOSPHORUS Routine 01/06/2006 4:45 PM CDT MAGNESIUM LEVEL Routine 01/06/2006 4:45 PM CDT CK Routine 01/06/2006 4:45 PM CDT CALCIUM IONIZED Routine 01/06/2006 4:45 PM CDT BASIC METABOLIC PANEL Routine 01/06/2006 4:45 PM CDT PTT Routine 01/06/2006 12:15 PM CDT POC GLUCOSE Routine 01/06/2006 11:33 AM CDT PTT Routine 01/06/2006 8:20 AM CDT CBC WITH DIFFERENTIAL Routine 01/06/2006 3:30 AM CDT CBC WITH DIFFERENTIAL Routine 01/06/2006 3:30 AM CDT PHOSPHORUS Routine 01/06/2006 3:30 AM CDT MAGNESIUM LEVEL Routine 01/06/2006 3:30 AM CDT CALCIUM IONIZED Routine 01/06/2006 3:30 AM CDT BASIC METABOLIC PANEL Routine 01/06/2006 3:30 AM CDT PTT Routine 01/06/2006 1:20 AM CDT POC GLUCOSE Routine 01/06/2006 12:40 AM CDT PTT Routine 01/05/2006 11:45 PM CDT POC GLUCOSE Routine 01/05/2006 6:44 PM CDT CBC WITH DIFFERENTIAL Routine 01/05/2006 4:00 AM CDT CBC WITH DIFFERENTIAL Routine 01/05/2006 4:00 AM CDT PHOSPHORUS Routine 01/05/2006 4:00 AM CDT MAGNESIUM LEVEL Routine 01/05/2006 4:00 AM CDT CALCIUM IONIZED Routine 01/05/2006 4:00 AM CDT BASIC METABOLIC PANEL Routine 01/05/2006 4:00 AM CDT PTT Routine 01/05/2006 2:59 AM CDT POC GLUCOSE Routine 01/05/2006 12:54 AM CDT PTT Routine 01/04/2006 8:00 PM CDT POC GLUCOSE Routine 01/04/2006 7:19 PM CDT POC GLUCOSE Routine 01/04/2006 7:17 PM CDT OSMOLALITY, URINE Routine 01/04/2006 3:1 2 PM CDT URINALYSIS W/REFLEX MICROSCOPIC Routine 01/04/2006 3:12 PM CDT EOSINOPHIL SMEAR Routine 01/04/2006 3:12 PM CDT PTT Routine 01/04/2006 3:00 PM CDT PTT Routine 01/04/2006 10:40 AM CDT CBC WITH DIFFERENTIAL Routine 01/04/2006 3:45 AM CDT CBC WITH DIFFERENTIAL Routine 01/04/2006 3:45 AM CDT C-REACTIVE PROTEIN Routine 01/04/2006 3: 45 AM CDT PHOSPHORUS Routine 01/04/2006 3:45 AM CDT MAGNESIUM LEVEL Routine 01/04/2006 3:45 AM CDT CALCIUM IONIZED Routine 01/04/2006 3:45 AM CDT ALBUMIN LEVEL Routine 01/04/2006 3:45 AM CDT BASIC METABOLIC PANEL Routine 01/04/2006 3:45 AM CDT POC GLUCOSE Routine 01/04/2006 12:15 AM CDT PTT Routine 01/04/2006 12:10 AM CDT POC GLUCOSE Routine 01/03/2006 6:38 PM CDT PTT Routine 01/03/2006 3:30 PM CDT POC GLUCOSE Routine 01/03/2006 11:55 AM CDT PHOSPHORUS Routine 01/03/2006 9:44 AM CDT BLOOD GAS ARTERIAL Routine 01/03/2006 9: 44 AM CDT CALCIUM IONIZED Routine 01/03/2006 9:44 AM CDT CBC WITH DIFFERENTIAL Routine 01/03/2006 9:43 AM CDT CBC WITH DIFFERENTIAL Routine 01/03/2006 9:43 AM CDT MAGNESIUM LEVEL Routine 01/03/2006 9:43 AM CDT BASIC METABOLIC PANEL Routine 01/03/2006 9:43 AM CDT POC GLUCOSE Routine 01/03/2006 9:41 AM CDT POC GLUCOSE Routine 01/03/2006 8:37 AM CDT POC GLUCOSE Routine 01/03/2006 7:56 AM CDT CBC WITH DIFFERENTIAL Routine 01/03/2006 3:45 AM CDT CBC WITH DIFFERENTIAL Routine 01/03/2006 3:45 AM CDT PHOSPHORUS Routine 01/03/2006 3:45 AM CDT MAGNESIUM LEVEL Routine 01/03/2006 3:45 AM CDT BLOOD GAS ARTERIAL Routine 01/03/2006 3: 45 AM CDT CALCIUM IONIZED Routine 01/03/2006 3:45 AM CDT DIGOXIN LEVEL Routine 01/03/2006 3:45 AM CDT BASIC METABOLIC PANEL Routine 01/03/2006 3:45 AM CDT POC GLUCOSE Routine 01/02/2006 11:56 PM CDT PTT Routine 01/02/2006 6:55 PM CDT POC GLUCOSE Routine 01/02/2006 5:54 PM CDT POC GLUCOSE Routine 01/02/2006 2:54 PM CDT PTT Routine 01/02/2006 1:59 PM CDT POC GLUCOSE Routine 01/02/2006 1:14 PM CDT BLOOD GAS ARTERIAL Routine 01/02/2006 4: 53 AM CDT CBC WITH DIFFERENTIAL Routine 01/02/2006 4:30 AM CDT CBC WITH DIFFERENTIAL Routine 01/02/2006 4:30 AM CDT PTT Routine 01/02/2006 4:30 AM CDT PHOSPHORUS Routine 01/02/2006 4:30 AM CDT MAGNESIUM LEVEL Routine 01/02/2006 4:30 AM CDT CALCIUM IONIZED Routine 01/02/2006 4:30 AM CDT BASIC METABOLIC PANEL Routine 01/02/2006 4:30 AM CDT POC GLUCOSE Routine 01/02/2006 12:43 AM CDT PTT Routine 01/01/2006 10:45 PM CDT POC GLUCOSE Routine 01/01/2006 4:59 PM CDT PTT Routine 01/01/2006 12:45 PM CDT POC GLUCOSE Routine 01/01/2006 12:12 PM CDT PTT Routine 01/01/2006 6:20 AM CDT POC GLUCOSE Routine 01/01/2006 6:10 AM CDT CBC WITH DIFFERENTIAL Routine 01/01/2006 3:50 AM CDT CBC WITH DIFFERENTIAL Routine 01/01/2006 3:50 AM CDT PHOSPHORUS Routine 01/01/2006 3:50 AM CDT MAGNESIUM LEVEL Routine 01/01/2006 3:50 AM CDT CALCIUM IONIZED Routine 01/01/2006 3:50 AM CDT BASIC METABOLIC PANEL Routine 01/01/2006 3:50 AM CDT PTT Routine 01/01/2006 1:00 AM CDT POC GLUCOSE Routine 01/01/2006 12:33 AM CDT PTT Routine 12/31/2005 7:00 PM CDT POC GLUCOSE Routine 12/31/2005 6:37 PM CDT PTT Routine 12/31/2005 1:00 PM CDT POC GLUCOSE Routine 12/31/2005 12:58 PM CDT PTT Routine 12/31/2005 6:50 AM CDT POC GLUCOSE Routine 12/31/2005 6:16 AM CDT CBC WITH DIFFERENTIAL Routine 12/31/2005 4:00 AM CDT CBC WITH DIFFERENTIAL Routine 12/31/2005 4:00 AM CDT C-REACTIVE PROTEIN Routine 12/31/2005 4: 00 AM CDT PHOSPHORUS Routine 12/31/2005 4:00 AM CDT MAGNESIUM LEVEL Routine 12/31/2005 4:00 AM CDT CALCIUM IONIZED Routine 12/31/2005 4:00 AM CDT BASIC METABOLIC PANEL Routine 12/31/2005 4:00 AM CDT PTT Routine 12/31/2005 1:15 AM CDT POC GLUCOSE Routine 12/30/2005 11:52 PM CDT POC GLUCOSE Routine 12/30/2005 11:49 PM CDT PTT Routine 12/30/2005 6:00 PM CDT POC GLUCOSE Routine 12/30/2005 5:58 PM CDT PTT Routine 12/30/2005 1:00 PM CDT VANCOMYCIN LEVEL TROUGH Routine 12/31/19 12:55 PM CDT PTT Routine 12/30/2005 10:15 AM CDT POC GLUCOSE Routine 12/30/2005 6:28 AM CDT PT AND APTT Routine 12/30/2005 2:40 AM CDT CBC WITH DIFFERENTIAL Routine 12/30/2005 2:40 AM CDT CBC WITH DIFFERENTIAL Routine 12/30/2005 2:40 AM CDT PHOSPHORUS Routine 12/30/2005 2:40 AM CDT MAGNESIUM LEVEL Routine 12/30/2005 2:40 AM CDT CALCIUM IONIZED Routine 12/30/2005 2:40 AM CDT BASIC METABOLIC PANEL Routine 12/30/2005 2:40 AM CDT POC GLUCOSE Routine 12/30/2005 12:03 AM CDT PTT Routine 12/29/2005 6:40 PM CDT POC GLUCOSE Routine 12/29/2005 6:30 PM CDT PTT Routine 12/29/2005 4:22 PM CDT PTT Routine 12/29/2005 1:00 PM CDT CBC WITH DIFFERENTIAL Routine 12/29/2005 3:40 AM CDT CBC WITH DIFFERENTIAL Routine 12/29/2005 3:40 AM CDT PTT Routine 12/29/2005 3:40 AM CDT PHOSPHORUS Routine 12/29/2005 3:40 AM CDT MAGNESIUM LEVEL Routine 12/29/2005 3:40 AM CDT CALCIUM IONIZED Routine 12/29/2005 3:40 AM CDT DIGOXIN LEVEL Routine 12/29/2005 3:40 AM CDT BASIC METABOLIC PANEL Routine 12/29/2005 3:40 AM CDT POC GLUCOSE Routine 12/29/2005 12:47 AM CDT PT AND APTT Routine 12/28/2005 10:30 PM CDT POC GLUCOSE Routine 12/28/2005 7:14 PM CDT PTT Routine 12/28/2005 2:45 PM CDT POC GLUCOSE Routine 12/28/2005 12:56 PM CDT PTT Routine 12/28/2005 7:00 AM CDT CBC WITH DIFFERENTIAL Routine 12/28/2005 4:00 AM CDT CBC WITH DIFFERENTIAL Routine 12/28/2005 4:00 AM CDT PHOSPHORUS Routine 12/28/2005 4:00 AM CDT MAGNESIUM LEVEL Routine 12/28/2005 4:00 AM CDT CALCIUM IONIZED Routine 12/28/2005 4:00 AM CDT BASIC METABOLIC PANEL Routine 12/28/2005 4:00 AM CDT PTT Routine 12/28/2005 2:00 AM CDT POC GLUCOSE Routine 12/28/2005 12:18 AM CDT PT AND APTT Routine 12/27/2005 7:31 PM CDT POC GLUCOSE Routine 12/27/2005 6:34 PM CDT BLOOD GAS ARTERIAL Routine 12/27/2005 5: 12 PM CDT PTT Routine 12/27/2005 1:21 PM CDT POC GLUCOSE Routine 12/27/2005 11:26 AM CDT PTT Routine 12/27/2005 6:58 AM CDT PT AND APTT Routine 12/27/2005 4:06 AM CDT CBC WITH DIFFERENTIAL Routine 12/27/2005 4:06 AM CDT TSH Routine 12/27/2005 4:06 AM CDT BLOOD GAS VENOUS Routine 12/27/2005 4:06 AM CDT CALCIUM IONIZED Routine 12/27/2005 4:06 AM CDT CBC WITH DIFFERENTIAL Routine 12/27/2005 4:00 AM CDT T4 FREE Routine 12/27/2005 4:00 AM CDT PREALBUMIN Routine 12/27/2005 4:00 AM CDT PHOSPHORUS Routine 12/27/2005 4:00 AM CDT MAGNESIUM LEVEL Routine 12/27/2005 4:00 AM CDT COMPREHENSIVE METABOLIC PANEL Routine 12/27/2005 4:00 AM CDT PTT Routine 12/27/2005 1:00 AM CDT POC GLUCOSE Routine 12/27/2005 12:35 AM CDT PTT Routine 12/26/2005 9:10 PM CDT POC GLUCOSE Routine 12/26/2005 6:46 PM CDT PTT Routine 12/26/2005 1:45 PM CDT POC GLUCOSE Routine 12/26/2005 11:56 AM CDT PTT Routine 12/26/2005 6:40 AM CDT POC GLUCOSE Routine 12/26/2005 5:50 AM CDT CBC WITH DIFFERENTIAL Routine 12/26/2005 4:00 AM CDT CBC WITH DIFFERENTIAL Routine 12/26/2005 4:00 AM CDT PHOSPHORUS Routine 12/26/2005 4:00 AM CDT MAGNESIUM LEVEL Routine 12/26/2005 4:00 AM CDT CALCIUM IONIZED Routine 12/26/2005 4:00 AM CDT BASIC METABOLIC PANEL Routine 12/26/2005 4:00 AM CDT PTT Routine 12/26/2005 1:35 AM CDT POC GLUCOSE Routine 12/26/2005 12:19 AM CDT POC GLUCOSE Routine 12/25/2005 6:05 PM CDT PTT Routine 12/25/2005 1:00 PM CDT POC GLUCOSE Routine 12/25/2005 6:13 AM CDT PTT Routine 12/25/2005 6:05 AM CDT CBC WITH DIFFERENTIAL Routine 12/25/2005 3:10 AM CDT CBC WITH DIFFERENTIAL Routine 12/25/2005 3:10 AM CDT PHOSPHORUS Routine 12/25/2005 3:10 AM CDT MAGNESIUM LEVEL Routine 12/25/2005 3:10 AM CDT CALCIUM IONIZED Routine 12/25/2005 3:10 AM CDT BASIC METABOLIC PANEL Routine 12/25/2005 3:10 AM CDT PTT Routine 12/25/2005 1:00 AM CDT POC GLUCOSE Routine 12/24/2005 11:33 PM CDT POC GLUCOSE Routine 12/24/2005 6:32 PM CDT PTT Routine 12/24/2005 6:30 PM CDT OSMOLALITY, URINE Routine 12/24/2005 1:1 3 PM CDT CREATININE, RANDOM URINE Routine 006 1:13 PM CDT URINALYSIS W/REFLEX MICROSCOPIC Routine 12/24/2005 1:13 PM CDT EOSINOPHIL SMEAR Routine 12/24/2005 1:13 PM CDT POC GLUCOSE Routine 12/24/2005 12:43 PM CDT PTT Routine 12/24/2005 12:30 PM CDT POC GLUCOSE Routine 12/24/2005 6:05 AM CDT PTT Routine 12/24/2005 6:00 AM CDT CBC WITH DIFFERENTIAL Routine 12/24/2005 1:34 AM CDT CBC WITH DIFFERENTIAL Routine 12/24/2005 1:34 AM CDT PHOSPHORUS Routine 12/24/2005 1:34 AM CDT MAGNESIUM LEVEL Routine 12/24/2005 1:34 AM CDT CALCIUM IONIZED Routine 12/24/2005 1:34 AM CDT BASIC METABOLIC PANEL Routine 12/24/2005 1:34 AM CDT POC GLUCOSE Routine 12/23/2005 11:24 PM CDT PTT Routine 12/23/2005 11:00 PM CDT POC GLUCOSE Routine 12/23/2005 5:18 PM CDT PTT Routine 12/23/2005 5:00 PM CDT POC GLUCOSE Routine 12/23/2005 1:39 PM CDT PT AND APTT Routine 12/23/2005 8:00 AM CDT POC GLUCOSE Routine 12/23/2005 5:56 AM CDT CBC WITH DIFFERENTIAL Routine 12/23/2005 3:00 AM CDT CBC WITH DIFFERENTIAL Routine 12/23/2005 3:00 AM CDT PHOSPHORUS Routine 12/23/2005 3:00 AM CDT MAGNESIUM LEVEL Routine 12/23/2005 3:00 AM CDT CALCIUM IONIZED Routine 12/23/2005 3:00 AM CDT BASIC METABOLIC PANEL Routine 12/23/2005 3:00 AM CDT PT AND APTT Routine 12/23/2005 2:00 AM CDT POC GLUCOSE Routine 12/23/2005 12:18 AM CDT PT AND APTT Routine 12/22/2005 8:15 PM CDT POC GLUCOSE Routine 12/22/2005 5:59 PM CDT PT AND APTT Routine 12/22/2005 2:35 PM CDT POC GLUCOSE Routine 12/22/2005 12:59 PM CDT PT AND APTT Routine 12/22/2005 8:04 AM CDT POC GLUCOSE Routine 12/22/2005 5:32 AM CDT CBC WITH DIFFERENTIAL Routine 12/22/2005 3:20 AM CDT CBC WITH DIFFERENTIAL Routine 12/22/2005 3:20 AM CDT PREALBUMIN Routine 12/22/2005 3:20 AM CDT PHOSPHORUS Routine 12/22/2005 3:20 AM CDT MAGNESIUM LEVEL Routine 12/22/2005 3:20 AM CDT CALCIUM IONIZED Routine 12/22/2005 3:20 AM CDT ALBUMIN LEVEL Routine 12/22/2005 3:20 AM CDT BASIC METABOLIC PANEL Routine 12/22/2005 3:20 AM CDT PT AND APTT Routine 12/22/2005 1:50 AM CDT POC GLUCOSE Routine 12/21/2005 11:29 PM CDT PTT Routine 12/21/2005 8:27 PM CDT POC GLUCOSE Routine 12/21/2005 5:48 PM CDT PT AND APTT Routine 12/21/2005 12:23 PM CDT POC GLUCOSE Routine 12/21/2005 12:07 PM CDT POC GLUCOSE Routine 12/21/2005 5:51 AM CDT CBC WITH DIFFERENTIAL Routine 12/21/2005 3:38 AM CDT CBC WITH DIFFERENTIAL Routine 12/21/2005 3:38 AM CDT PHOSPHORUS Routine 12/21/2005 3:38 AM CDT MAGNESIUM LEVEL Routine 12/21/2005 3:38 AM CDT CALCIUM IONIZED Routine 12/21/2005 3:38 AM CDT BASIC METABOLIC PANEL Routine 12/21/2005 3:38 AM CDT POC GLUCOSE Routine 12/21/2005 12:40 AM CDT POC GLUCOSE Routine 12/20/2005 6:54 PM CDT PHOSPHORUS Routine 12/20/2005 1:41 PM CDT MAGNESIUM LEVEL Routine 12/20/2005 1:41 PM CDT BLOOD GAS ARTERIAL Routine 12/20/2005 1: 41 PM CDT CBC WITH DIFFERENTIAL Routine 12/20/2005 1:40 PM CDT CBC WITH DIFFERENTIAL Routine 12/20/2005 1:40 PM CDT CALCIUM IONIZED Routine 12/20/2005 1:40 PM CDT BASIC METABOLIC PANEL Routine 12/20/2005 1:40 PM CDT POC GLUCOSE Routine 12/20/2005 12:14 PM CDT PT AND APTT Routine 12/20/2005 3:30 AM CDT CBC WITH DIFFERENTIAL Routine 12/20/2005 3:30 AM CDT CBC WITH DIFFERENTIAL Routine 12/20/2005 3:30 AM CDT PHOSPHORUS Routine 12/20/2005 3:30 AM CDT MAGNESIUM LEVEL Routine 12/20/2005 3:30 AM CDT BLOOD GAS ARTERIAL Routine 12/20/2005 3: 30 AM CDT CALCIUM IONIZED Routine 12/20/2005 3:30 AM CDT BASIC METABOLIC PANEL Routine 12/20/2005 3:30 AM CDT POC GLUCOSE Routine 12/19/2005 11:42 PM CDT POC GLUCOSE Routine 12/19/2005 6:20 PM CDT PT AND APTT Routine 12/19/2005 1:10 PM CDT CBC WITH DIFFERENTIAL Routine 12/19/2005 1:10 PM CDT CBC WITH DIFFERENTIAL Routine 12/19/2005 1:10 PM CDT POC GLUCOSE Routine 12/19/2005 1:10 PM CDT POC GLUCOSE Routine 12/19/2005 5:34 AM CDT PT AND APTT Routine 12/19/2005 3:29 AM CDT CBC WITH DIFFERENTIAL Routine 12/19/2005 3:29 AM CDT CBC WITH DIFFERENTIAL Routine 12/19/2005 3:29 AM CDT PHOSPHORUS Routine 12/19/2005 3:29 AM CDT MAGNESIUM LEVEL Routine 12/19/2005 3:29 AM CDT CALCIUM IONIZED Routine 12/19/2005 3:29 AM CDT BASIC METABOLIC PANEL Routine 12/19/2005 3:29 AM CDT POC GLUCOSE Routine 12/18/2005 11:35 PM CDT POC GLUCOSE Routine 12/18/2005 5:20 PM CDT POC GLUCOSE Routine 12/18/2005 11:41 AM CDT POC GLUCOSE Routine 12/18/2005 5:29 AM CDT PT AND APTT Routine 12/18/2005 3:15 AM CDT CBC WITH DIFFERENTIAL Routine 12/18/2005 3:15 AM CDT CBC WITH DIFFERENTIAL Routine 12/18/2005 3:15 AM CDT PHOSPHORUS Routine 12/18/2005 3:15 AM CDT MAGNESIUM LEVEL Routine 12/18/2005 3:15 AM CDT BLOOD GAS ARTERIAL Routine 12/18/2005 3: 15 AM CDT CALCIUM IONIZED Routine 12/18/2005 3:15 AM CDT BASIC METABOLIC PANEL Routine 12/18/2005 3:15 AM CDT POC GLUCOSE Routine 12/17/2005 11:37 PM CDT PTT Routine 12/17/2005 6:30 PM CDT POC GLUCOSE Routine 12/17/2005 5:01 PM CDT POC GLUCOSE Routine 12/17/2005 12:13 PM CDT PTT Routine 12/17/2005 7:45 AM CDT POC GLUCOSE Routine 12/17/2005 6:00 AM CDT CBC WITH DIFFERENTIAL Routine 12/17/2005 3:35 AM CDT CBC WITH DIFFERENTIAL Routine 12/17/2005 3:35 AM CDT PHOSPHORUS Routine 12/17/2005 3:35 AM CDT MAGNESIUM LEVEL Routine 12/17/2005 3:35 AM CDT BLOOD GAS ARTERIAL Routine 12/17/2005 3: 35 AM CDT CALCIUM IONIZED Routine 12/17/2005 3:35 AM CDT BASIC METABOLIC PANEL Routine 12/17/2005 3:35 AM CDT PT AND APTT Routine 12/17/2005 1:00 AM CDT POC GLUCOSE Routine 12/16/2005 11:59 PM CDT PT AND APTT Routine 12/16/2005 7:00 PM CDT POC GLUCOSE Routine 12/16/2005 5:42 PM CDT PTT Routine 12/16/2005 10:46 AM CDT CBC WITH DIFFERENTIAL Routine 12/16/2005 3:10 AM CDT CBC WITH DIFFERENTIAL Routine 12/16/2005 3:10 AM CDT PTT Routine 12/16/2005 3:10 AM CDT PROTIME-INR Routine 12/16/2005 3:10 AM CDT PHOSPHORUS Routine 12/16/2005 3:10 AM CDT MAGNESIUM LEVEL Routine 12/16/2005 3:10 AM CDT BLOOD GAS ARTERIAL Routine 12/16/2005 3: 10 AM CDT CALCIUM IONIZED Routine 12/16/2005 3:10 AM CDT BASIC METABOLIC PANEL Routine 12/16/2005 3:10 AM CDT POC GLUCOSE Routine 12/15/2005 11:36 PM CDT PT AND APTT Routine 12/15/2005 9:01 PM CDT POC GLUCOSE Routine 12/15/2005 4:58 PM CDT PT AND APTT Routine 12/15/2005 4:00 PM CDT POC GLUCOSE Routine 12/15/2005 11:57 AM CDT PT AND APTT Routine 12/15/2005 11:12 AM CDT POC GLUCOSE Routine 12/15/2005 6:32 AM CDT PT AND APTT Routine 12/15/2005 4:30 AM CDT CBC WITH DIFFERENTIAL Routine 12/15/2005 4:30 AM CDT CBC WITH DIFFERENTIAL Routine 12/15/2005 4:30 AM CDT PHOSPHORUS Routine 12/15/2005 4:30 AM CDT MAGNESIUM LEVEL Routine 12/15/2005 4:30 AM CDT BLOOD GAS ARTERIAL Routine 12/15/2005 4: 30 AM CDT CALCIUM IONIZED Routine 12/15/2005 4:30 AM CDT BASIC METABOLIC PANEL Routine 12/15/2005 4:30 AM CDT POC GLUCOSE Routine 12/15/2005 12:29 AM CDT PTT Routine 12/14/2005 9:46 PM CDT POC GLUCOSE Routine 12/14/2005 6:26 PM CDT PTT Routine 12/14/2005 1:45 PM CDT POC GLUCOSE Routine 12/14/2005 12:39 PM CDT PT AND APTT Routine 12/14/2005 3:50 AM CDT CBC WITH DIFFERENTIAL Routine 12/14/2005 3:50 AM CDT CBC WITH DIFFERENTIAL Routine 12/14/2005 3:50 AM CDT PHOSPHORUS Routine 12/14/2005 3:50 AM CDT MAGNESIUM LEVEL Routine 12/14/2005 3:50 AM CDT BLOOD GAS ARTERIAL Routine 12/14/2005 3: 50 AM CDT CALCIUM IONIZED Routine 12/14/2005 3:50 AM CDT BASIC METABOLIC PANEL Routine 12/14/2005 3:50 AM CDT POC GLUCOSE Routine 12/13/2005 11:52 PM CDT BLOOD GAS ARTERIAL Routine 12/13/2005 6: 46 PM CDT POC GLUCOSE Routine 12/13/2005 5:31 PM CDT BLOOD GAS ARTERIAL Routine 12/13/2005 3: 57 PM CDT PT AND APTT Routine 12/13/2005 3:35 PM CDT CBC WITH DIFFERENTIAL Routine 12/13/2005 3:35 PM CDT CBC WITH DIFFERENTIAL Routine 12/13/2005 3:35 PM CDT PHOSPHORUS Routine 12/13/2005 3:35 PM CDT MAGNESIUM LEVEL Routine 12/13/2005 3:35 PM CDT CALCIUM IONIZED Routine 12/13/2005 3:35 PM CDT BASIC METABOLIC PANEL Routine 12/13/2005 3:35 PM CDT POC GLUCOSE Routine 12/13/2005 12:09 PM CDT POC GLUCOSE Routine 12/13/2005 5:15 AM CDT PT AND APTT Routine 12/13/2005 3:15 AM CDT CBC WITH DIFFERENTIAL Routine 12/13/2005 3:15 AM CDT CBC WITH DIFFERENTIAL Routine 12/13/2005 3:15 AM CDT PREALBUMIN Routine 12/13/2005 3:15 AM CDT PHOSPHORUS Routine 12/13/2005 3:15 AM CDT MAGNESIUM LEVEL Routine 12/13/2005 3:15 AM CDT BLOOD GAS ARTERIAL Routine 12/13/2005 3: 15 AM CDT CALCIUM IONIZED Routine 12/13/2005 3:15 AM CDT HEPATIC FUNCTION PANEL Routine 6 3:15 AM CDT BASIC METABOLIC PANEL Routine 12/13/2005 3:15 AM CDT POC GLUCOSE Routine 12/12/2005 11:47 PM CDT POC GLUCOSE Routine 12/12/2005 6:51 PM CDT PT AND APTT Routine 12/12/2005 4:40 PM CDT POC GLUCOSE Routine 12/12/2005 1:17 PM CDT POC GLUCOSE Routine 12/12/2005 5:56 AM CDT PT AND APTT Routine 12/12/2005 4:00 AM CDT CBC WITH DIFFERENTIAL Routine 12/12/2005 4:00 AM CDT CBC WITH DIFFERENTIAL Routine 12/12/2005 4:00 AM CDT PHOSPHORUS Routine 12/12/2005 4:00 AM CDT MAGNESIUM LEVEL Routine 12/12/2005 4:00 AM CDT BLOOD GAS ARTERIAL Routine 12/12/2005 4: 00 AM CDT CALCIUM IONIZED Routine 12/12/2005 4:00 AM CDT BASIC METABOLIC PANEL Routine 12/12/2005 4:00 AM CDT POC GLUCOSE Routine 12/12/2005 12:10 AM CDT POC GLUCOSE Routine 12/11/2005 6:41 PM CDT PT AND APTT Routine 12/11/2005 12:30 PM CDT POC GLUCOSE Routine 12/11/2005 11:46 AM CDT POC GLUCOSE Routine 12/11/2005 5:24 AM CDT PT AND APTT Routine 12/11/2005 3:30 AM CDT CBC WITH DIFFERENTIAL Routine 12/11/2005 3:30 AM CDT CBC WITH DIFFERENTIAL Routine 12/11/2005 3:30 AM CDT CBC WITH DIFFERENTIAL Routine 12/11/2005 3:30 AM CDT PHOSPHORUS Routine 12/11/2005 3:30 AM CDT MAGNESIUM LEVEL Routine 12/11/2005 3:30 AM CDT BLOOD GAS ARTERIAL Routine 12/11/2005 3: 30 AM CDT CALCIUM IONIZED Routine 12/11/2005 3:30 AM CDT BASIC METABOLIC PANEL Routine 12/11/2005 3:30 AM CDT POC GLUCOSE Routine 12/11/2005 12:14 AM CDT BLOOD GAS ARTERIAL Routine 12/10/2005 9: 45 PM CDT PTT Routine 12/10/2005 9:25 PM CDT POC GLUCOSE Routine 12/10/2005 5:34 PM CDT PTT Routine 12/10/2005 1:35 PM CDT POC GLUCOSE Routine 12/10/2005 12:04 PM CDT PTT Routine 12/10/2005 5:46 AM CDT POC GLUCOSE Routine 12/10/2005 5:37 AM CDT CBC WITH DIFFERENTIAL Routine 12/10/2005 4:00 AM CDT CBC WITH DIFFERENTIAL Routine 12/10/2005 4:00 AM CDT PHOSPHORUS Routine 12/10/2005 4:00 AM CDT MAGNESIUM LEVEL Routine 12/10/2005 4:00 AM CDT BLOOD GAS ARTERIAL Routine 12/10/2005 4: 00 AM CDT CALCIUM IONIZED Routine 12/10/2005 4:00 AM CDT BASIC METABOLIC PANEL Routine 12/10/2005 4:00 AM CDT POC GLUCOSE Routine 12/10/2005 12:01 AM CDT PTT Routine 12/09/2005 10:09 PM CDT POC GLUCOSE Routine 12/09/2005 6:15 PM CDT BLOOD GAS ARTERIAL Routine 12/09/2005 5: 05 PM CDT POC GLUCOSE Routine 12/09/2005 2:55 PM CDT PT AND APTT Routine 12/09/2005 1:41 PM CDT CBC WITH DIFFERENTIAL Routine 12/09/2005 1:41 PM CDT CBC WITH DIFFERENTIAL Routine 12/09/2005 1:41 PM CDT PHOSPHORUS Routine 12/09/2005 1:41 PM CDT MAGNESIUM LEVEL Routine 12/09/2005 1:41 PM CDT BLOOD GAS ARTERIAL Routine 12/09/2005 1: 41 PM CDT CALCIUM IONIZED Routine 12/09/2005 1:41 PM CDT COMPREHENSIVE METABOLIC PANEL Routine 12/09/2005 1:41 PM CDT POC, BLOOD GASES Routine 12/09/2005 12:4 4 PM CDT POC GLUCOSE Routine 12/09/2005 6:05 AM CDT PT AND APTT Routine 12/09/2005 3:25 AM CDT CBC WITH DIFFERENTIAL Routine 12/09/2005 3:25 AM CDT CBC WITH DIFFERENTIAL Routine 12/09/2005 3:25 AM CDT PHOSPHORUS Routine 12/09/2005 3:25 AM CDT MAGNESIUM LEVEL Routine 12/09/2005 3:25 AM CDT BLOOD GAS ARTERIAL Routine 12/09/2005 3: 25 AM CDT CALCIUM IONIZED Routine 12/09/2005 3:25 AM CDT BASIC METABOLIC PANEL Routine 12/09/2005 3:25 AM CDT POC GLUCOSE Routine 12/09/2005 12:13 AM CDT PT AND APTT Routine 12/08/2005 11:25 PM CDT POC GLUCOSE Routine 12/08/2005 5:09 PM CDT PT AND APTT Routine 12/08/2005 4:00 PM CDT POC GLUCOSE Routine 12/08/2005 11:19 AM CDT PT AND APTT Routine 12/08/2005 10:20 AM CDT CBC WITH DIFFERENTIAL Routine 12/08/2005 3:22 AM CDT CBC WITH DIFFERENTIAL Routine 12/08/2005 3:22 AM CDT PTT Routine 12/08/2005 3:22 AM CDT PHOSPHORUS Routine 12/08/2005 3:22 AM CDT MAGNESIUM LEVEL Routine 12/08/2005 3:22 AM CDT BLOOD GAS ARTERIAL Routine 12/08/2005 3: 22 AM CDT CALCIUM IONIZED Routine 12/08/2005 3:22 AM CDT BASIC METABOLIC PANEL Routine 12/08/2005 3:22 AM CDT POC GLUCOSE Routine 12/08/2005 12:08 AM CDT PT AND APTT Routine 12/07/2005 9:58 PM CDT POC GLUCOSE Routine 12/07/2005 5:10 PM CDT PT AND APTT Routine 12/07/2005 4:00 PM CDT POC GLUCOSE Routine 12/07/2005 12:14 PM CDT PT AND APTT Routine 12/07/2005 9:45 AM CDT POC GLUCOSE Routine 12/07/2005 5:52 AM CDT PTT Routine 12/07/2005 3:20 AM CDT CBC WITH DIFFERENTIAL Routine 12/07/2005 3:19 AM CDT CBC WITH DIFFERENTIAL Routine 12/07/2005 3:19 AM CDT PHOSPHORUS Routine 12/07/2005 3:19 AM CDT MAGNESIUM LEVEL Routine 12/07/2005 3:19 AM CDT BLOOD GAS ARTERIAL Routine 12/07/2005 3: 19 AM CDT CALCIUM IONIZED Routine 12/07/2005 3:19 AM CDT BASIC METABOLIC PANEL Routine 12/07/2005 3:19 AM CDT POC GLUCOSE Routine 12/07/2005 12:24 AM CDT PTT Routine 12/06/2005 8:00 PM CDT POC GLUCOSE Routine 12/06/2005 6:34 PM CDT POC GLUCOSE Routine 12/06/2005 11:40 AM CDT CBC WITH DIFFERENTIAL Routine 12/06/2005 10:20 AM CDT CBC WITH DIFFERENTIAL Routine 12/06/2005 10:20 AM CDT PHOSPHORUS Routine 12/06/2005 10:20 AM CDT MAGNESIUM LEVEL Routine 12/06/2005 10:20 AM CDT BLOOD GAS ARTERIAL Routine 12/06/2005 10 :20 AM CDT CALCIUM IONIZED Routine 12/06/2005 10:20 AM CDT BASIC METABOLIC PANEL Routine 12/06/2005 10:20 AM CDT POC GLUCOSE Routine 12/06/2005 9:40 AM CDT POC, BLOOD GASES Routine 12/06/2005 9:32 AM CDT POC, BLOOD GASES Routine 12/06/2005 8:10 AM CDT POC GLUCOSE Routine 12/06/2005 5:19 AM CDT CBC WITH DIFFERENTIAL Routine 12/06/2005 3:15 AM CDT CBC WITH DIFFERENTIAL Routine 12/06/2005 3:15 AM CDT PHOSPHORUS Routine 12/06/2005 3:15 AM CDT MAGNESIUM LEVEL Routine 12/06/2005 3:15 AM CDT BLOOD GAS ARTERIAL Routine 12/06/2005 3: 15 AM CDT CALCIUM IONIZED Routine 12/06/2005 3:15 AM CDT BASIC METABOLIC PANEL Routine 12/06/2005 3:15 AM CDT POC GLUCOSE Routine 12/06/2005 12:19 AM CDT PTT Routine 12/05/2005 6:42 PM CDT POC GLUCOSE Routine 12/05/2005 6:05 PM CDT BLOOD GAS ARTERIAL Routine 12/05/2005 4: 15 PM CDT CBC WITH DIFFERENTIAL Routine 12/05/2005 4:00 PM CDT CBC WITH DIFFERENTIAL Routine 12/05/2005 4:00 PM CDT TRANSFERRIN Routine 12/05/2005 4:00 PM CDT PREALBUMIN Routine 12/05/2005 4:00 PM CDT PHOSPHORUS Routine 12/05/2005 4:00 PM CDT MAGNESIUM LEVEL Routine 12/05/2005 4:00 PM CDT CALCIUM IONIZED Routine 12/05/2005 4:00 PM CDT COMPREHENSIVE METABOLIC PANEL Routine 12/05/2005 4:00 PM CDT PT AND APTT Routine 12/05/2005 11:31 AM CDT POC GLUCOSE Routine 12/05/2005 11:30 AM CDT POC GLUCOSE Routine 12/05/2005 6:00 AM CDT CBC WITH DIFFERENTIAL Routine 12/05/2005 4:00 AM CDT CBC WITH DIFFERENTIAL Routine 12/05/2005 4:00 AM CDT PHOSPHORUS Routine 12/05/2005 4:00 AM CDT MAGNESIUM LEVEL Routine 12/05/2005 4:00 AM CDT CALCIUM IONIZED Routine 12/05/2005 4:00 AM CDT BASIC METABOLIC PANEL Routine 12/05/2005 4:00 AM CDT BLOOD GAS ARTERIAL Routine 12/05/2005 3: 40 AM CDT POC GLUCOSE Routine 12/04/2005 11:57 PM CDT BLOOD GAS ARTERIAL Routine 12/04/2005 11 :56 PM CDT POC GLUCOSE Routine 12/04/2005 5:41 PM CDT PTT Routine 12/04/2005 5:40 PM CDT POC GLUCOSE Routine 12/04/2005 4:06 PM CDT BLOOD GAS ARTERIAL Routine 12/04/2005 2: 51 PM CDT POC GLUCOSE Routine 12/04/2005 12:04 PM CDT PTT Routine 12/04/2005 9:50 AM CDT POC GLUCOSE Routine 12/04/2005 9:26 AM CDT POC GLUCOSE Routine 12/04/2005 6:00 AM CDT PT AND APTT Routine 12/04/2005 3:10 AM CDT CBC WITH DIFFERENTIAL Routine 12/04/2005 3:10 AM CDT CBC WITH DIFFERENTIAL Routine 12/04/2005 3:10 AM CDT PHOSPHORUS Routine 12/04/2005 3:10 AM CDT MAGNESIUM LEVEL Routine 12/04/2005 3:10 AM CDT BLOOD GAS ARTERIAL Routine 12/04/2005 3: 10 AM CDT CALCIUM IONIZED Routine 12/04/2005 3:10 AM CDT BASIC METABOLIC PANEL Routine 12/04/2005 3:10 AM CDT POC GLUCOSE Routine 12/04/2005 12:06 AM CDT PT AND APTT Routine 12/03/2005 10:00 PM CDT POC GLUCOSE Routine 12/03/2005 4:58 PM CDT CBC WITH DIFFERENTIAL Routine 12/03/2005 3:36 PM CDT CBC WITH DIFFERENTIAL Routine 12/03/2005 3:36 PM CDT PHOSPHORUS Routine 12/03/2005 3:36 PM CDT MAGNESIUM LEVEL Routine 12/03/2005 3:36 PM CDT CALCIUM IONIZED Routine 12/03/2005 3:36 PM CDT BASIC METABOLIC PANEL Routine 12/03/2005 3:36 PM CDT POC GLUCOSE Routine 12/03/2005 11:14 AM CDT CBC WITH DIFFERENTIAL Routine 12/03/2005 4:15 AM CDT CBC WITH DIFFERENTIAL Routine 12/03/2005 4:15 AM CDT PTT Routine 12/03/2005 4:15 AM CDT PHOSPHORUS Routine 12/03/2005 4:15 AM CDT MAGNESIUM LEVEL Routine 12/03/2005 4:15 AM CDT BLOOD GAS ARTERIAL Routine 12/03/2005 4: 15 AM CDT CALCIUM IONIZED Routine 12/03/2005 4:15 AM CDT BASIC METABOLIC PANEL Routine 12/03/2005 4:15 AM CDT POC GLUCOSE Routine 12/03/2005 12:22 AM CDT PT AND APTT Routine 12/02/2005 9:27 PM CDT CBC WITH DIFFERENTIAL Routine 12/02/2005 9:27 PM CDT CBC WITH DIFFERENTIAL Routine 12/02/2005 9:27 PM CDT PHOSPHORUS Routine 12/02/2005 9:27 PM CDT BLOOD GAS ARTERIAL Routine 12/02/2005 9: 27 PM CDT CALCIUM IONIZED Routine 12/02/2005 9:27 PM CDT BASIC METABOLIC PANEL Routine 12/02/2005 9:27 PM CDT POC GLUCOSE Routine 12/02/2005 5:34 PM CDT BLOOD GAS ARTERIAL Routine 12/02/2005 3: 01 PM CDT CALCIUM IONIZED Routine 12/02/2005 3:01 PM CDT CBC WITH DIFFERENTIAL Routine 12/02/2005 12:30 PM CDT CBC WITH DIFFERENTIAL Routine 12/02/2005 12:30 PM CDT PHOSPHORUS Routine 12/02/2005 12:30 PM CDT MAGNESIUM LEVEL Routine 12/02/2005 12:30 PM CDT BLOOD GAS ARTERIAL Routine 12/02/2005 12 :30 PM CDT CALCIUM IONIZED Routine 12/02/2005 12:30 PM CDT BASIC METABOLIC PANEL Routine 12/02/2005 12:30 PM CDT POC, BLOOD GASES Routine 12/02/2005 11:1 2 AM CDT POC GLUCOSE Routine 12/02/2005 8:10 AM CDT POC GLUCOSE Routine 12/02/2005 8:08 AM CDT PT AND APTT Routine 12/02/2005 4:15 AM CDT CBC WITH DIFFERENTIAL Routine 12/02/2005 4:15 AM CDT CBC WITH DIFFERENTIAL Routine 12/02/2005 4:15 AM CDT PHOSPHORUS Routine 12/02/2005 4:15 AM CDT BRAIN NATRIURETIC PEPTIDE, BNP OR PROBNP Routine 12/02/2005 4:15 AM CDT MAGNESIUM LEVEL Routine 12/02/2005 4:15 AM CDT BLOOD GAS ARTERIAL Routine 12/02/2005 4 :15 AM CDT CALCIUM IONIZED Routine 12/02/2005 4:15 AM CDT BASIC METABOLIC PANEL Routine 12/02/2005 4:15 AM CDT POC GLUCOSE Routine 12/02/2005 12:13 AM CDT BLOOD GAS ARTERIAL Routine 12/01/2005 11 :05 PM CDT POC GLUCOSE Routine 12/01/2005 5:32 PM CDT PT AND APTT Routine 12/01/2005 2:00 PM CDT POC GLUCOSE Routine 12/01/2005 12:17 PM CDT PTT Routine 12/01/2005 6:50 AM CDT CBC WITH DIFFERENTIAL Routine 12/01/2005 4:14 AM CDT CBC WITH DIFFERENTIAL Routine 12/01/2005 4:14 AM CDT PHOSPHORUS Routine 12/01/2005 4:14 AM CDT MAGNESIUM LEVEL Routine 12/01/2005 4:14 AM CDT BLOOD GAS ARTERIAL Routine 12/01/2005 4: 14 AM CDT CALCIUM IONIZED Routine 12/01/2005 4:14 AM CDT BASIC METABOLIC PANEL Routine 12/01/2005 4:14 AM CDT PTT Routine 12/01/2005 12:15 AM CDT POC GLUCOSE Routine 12/01/2005 12:12 AM CDT POC GLUCOSE Routine 11/30/2005 5:33 PM CDT PT AND APTT Routine 11/30/2005 5:23 PM CDT BLOOD GAS ARTERIAL Routine 11/30/2005 1: 16 PM CDT POC GLUCOSE Routine 11/30/2005 11:48 AM CDT POC GLUCOSE Routine 11/30/2005 11:46 AM CDT RETICULOCYTES Routine 11/30/2005 10:25 AM CDT BLOOD GAS ARTERIAL Routine 11/30/2005 10 :25 AM CDT POC GLUCOSE Routine 11/30/2005 8:19 AM CDT POC GLUCOSE Routine 11/30/2005 3:53 AM CDT CBC WITH DIFFERENTIAL Routine 11/30/2005 3:25 AM CDT CBC WITH DIFFERENTIAL Routine 11/30/2005 3:25 AM CDT PREALBUMIN Routine 11/30/2005 3:25 AM CDT PHOSPHORUS Routine 11/30/2005 3:25 AM CDT MAGNESIUM LEVEL Routine 11/30/2005 3:25 AM CDT BLOOD GAS ARTERIAL Routine 11/30/2005 3: 25 AM CDT CALCIUM IONIZED Routine 11/30/2005 3:25 AM CDT COMPREHENSIVE METABOLIC PANEL Routine 11/30/2005 3:25 AM CDT POC GLUCOSE Routine 11/30/2005 1:11 AM CDT POC GLUCOSE Routine 11/29/2005 8:13 PM CDT BLOOD GAS ARTERIAL Routine 11/29/2005 5: 30 PM CDT POC GLUCOSE Routine 11/29/2005 4:16 PM CDT POC GLUCOSE Routine 11/29/2005 12:33 PM CDT POC GLUCOSE Routine 11/29/2005 8:38 AM CDT CBC WITH DIFFERENTIAL Routine 11/29/2005 4:20 AM CDT CBC WITH DIFFERENTIAL Routine 11/29/2005 4:20 AM CDT PHOSPHORUS Routine 11/29/2005 4:20 AM CDT MAGNESIUM LEVEL Routine 11/29/2005 4:20 AM CDT BLOOD GAS ARTERIAL Routine 11/29/2005 4: 20 AM CDT CALCIUM IONIZED Routine 11/29/2005 4:20 AM CDT BASIC METABOLIC PANEL Routine 11/29/2005 4:20 AM CDT POC GLUCOSE Routine 11/29/2005 4:19 AM CDT POC GLUCOSE Routine 11/29/2005 1:03 AM CDT POC GLUCOSE Routine 11/28/2005 8:40 PM CDT POC GLUCOSE Routine 11/28/2005 6:01 PM CDT POC GLUCOSE Routine 11/28/2005 3:13 PM CDT POC GLUCOSE Routine 11/28/2005 9:49 AM CDT PT AND APTT Routine 11/28/2005 3:45 AM CDT CBC WITH DIFFERENTIAL Routine 11/28/2005 3:45 AM CDT CBC WITH DIFFERENTIAL Routine 11/28/2005 3:45 AM CDT CBC WITH DIFFERENTIAL Routine 11/28/2005 3:45 AM CDT PHOSPHORUS Routine 11/28/2005 3:45 AM CDT MAGNESIUM LEVEL Routine 11/28/2005 3:45 AM CDT BLOOD GAS ARTERIAL Routine 11/28/2005 3: 45 AM CDT CALCIUM IONIZED Routine 11/28/2005 3:45 AM CDT BASIC METABOLIC PANEL Routine 11/28/2005 3:45 AM CDT POC GLUCOSE Routine 11/28/2005 12:53 AM CDT POC GLUCOSE Routine 11/27/2005 9:37 PM CDT BLOOD GAS ARTERIAL Routine 11/27/2005 4: 21 PM CDT PT AND APTT Routine 11/27/2005 4:00 PM CDT CBC WITH DIFFERENTIAL Routine 11/27/2005 4:00 PM CDT CBC WITH DIFFERENTIAL Routine 11/27/2005 4:00 PM CDT PHOSPHORUS Routine 11/27/2005 4:00 PM CDT MAGNESIUM LEVEL Routine 11/27/2005 4:00 PM CDT CALCIUM IONIZED Routine 11/27/2005 4:00 PM CDT BASIC METABOLIC PANEL Routine 11/27/2005 4:00 PM CDT POC GLUCOSE Routine 11/27/2005 12:25 PM CDT PT AND APTT Routine 11/27/2005 3:15 AM CDT LACTIC ACID Routine 11/27/2005 3:15 AM CDT CBC WITH DIFFERENTIAL Routine 11/27/2005 3:15 AM CDT CBC WITH DIFFERENTIAL Routine 11/27/2005 3:15 AM CDT PHOSPHORUS Routine 11/27/2005 3:15 AM CDT MAGNESIUM LEVEL Routine 11/27/2005 3:15 AM CDT BLOOD GAS ARTERIAL Routine 11/27/2005 3: 15 AM CDT CALCIUM IONIZED Routine 11/27/2005 3:15 AM CDT BASIC METABOLIC PANEL Routine 11/27/2005 3:15 AM CDT PT AND APTT Routine 11/26/2005 11:00 PM CDT CBC WITH DIFFERENTIAL Routine 11/26/2005 11:00 PM CDT CBC WITH DIFFERENTIAL Routine 11/26/2005 11:00 PM CDT PHOSPHORUS Routine 11/26/2005 11:00 PM CDT MAGNESIUM LEVEL Routine 11/26/2005 11:00 PM CDT CALCIUM IONIZED Routine 11/26/2005 11:00 PM CDT BASIC METABOLIC PANEL Routine 11/26/2005 11:00 PM CDT PT AND APTT Routine 11/26/2005 4:00 PM CDT CBC WITH DIFFERENTIAL Routine 11/26/2005 4:00 PM CDT CBC WITH DIFFERENTIAL Routine 11/26/2005 4:00 PM CDT PHOSPHORUS Routine 11/26/2005 4:00 PM CDT MAGNESIUM LEVEL Routine 11/26/2005 4:00 PM CDT CALCIUM IONIZED Routine 11/26/2005 4:00 PM CDT BASIC METABOLIC PANEL Routine 11/26/2005 4:00 PM CDT BLOOD GAS ARTERIAL Routine 11/26/2005 1: 03 PM CDT LACTIC ACID Routine 11/26/2005 1:01 PM CDT CALCIUM IONIZED Routine 11/26/2005 1:01 PM CDT PT AND APTT Routine 11/26/2005 1:00 PM CDT CBC WITH DIFFERENTIAL Routine 11/26/2005 1:00 PM CDT CBC WITH DIFFERENTIAL Routine 11/26/2005 1:00 PM CDT PHOSPHORUS Routine 11/26/2005 1:00 PM CDT MAGNESIUM LEVEL Routine 11/26/2005 1:00 PM CDT BASIC METABOLIC PANEL Routine 11/26/2005 1:00 PM CDT LACTIC ACID Routine 11/26/2005 4:30 AM CDT CBC WITH DIFFERENTIAL Routine 11/26/2005 4:30 AM CDT CBC WITH DIFFERENTIAL Routine 11/26/2005 4:30 AM CDT BLOOD GAS ARTERIAL Routine 11/26/2005 4: 30 AM CDT BLOOD GAS ARTERIAL Routine 11/25/2005 1: 30 PM CDT LACTIC ACID Routine 11/25/2005 12:30 PM CDT CBC WITH DIFFERENTIAL Routine 11/25/2005 4:00 AM CDT CBC WITH DIFFERENTIAL Routine 11/25/2005 4:00 AM CDT PHOSPHORUS Routine 11/25/2005 4:00 AM CDT MAGNESIUM LEVEL Routine 11/25/2005 4:00 AM CDT BLOOD GAS ARTERIAL Routine 11/25/2005 4: 00 AM CDT CALCIUM IONIZED Routine 11/25/2005 4:00 AM CDT BASIC METABOLIC PANEL Routine 11/25/2005 4:00 AM CDT CBC WITH DIFFERENTIAL Routine 11/24/2005 6:00 PM CDT CBC WITH DIFFERENTIAL Routine 11/24/2005 6:00 PM CDT BASIC METABOLIC PANEL Routine 11/24/2005 6:00 PM CDT BLOOD GAS ARTERIAL Routine 11/24/2005 5: 00 PM CDT ETHANOL LEVEL Routine 11/24/2005 1:02 PM CDT BLOOD GAS ARTERIAL Routine 11/24/2005 12 :40 PM CDT PT AND APTT Routine 11/24/2005 12:18 PM CDT CBC WITH DIFFERENTIAL Routine 11/24/2005 12:18 PM CDT CBC WITH DIFFERENTIAL Routine 11/24/2005 12:18 PM CDT CARBOXYHEMOGLOBIN Routine 11/24/2005 12: 18 PM CDT CALCIUM IONIZED Routine 11/24/2005 12:18 PM CDT DRUG SCREEN, URINE Routine 11/24/2005 12 :06 PM CDT URINALYSIS W/REFLEX MICROSCOPIC Routine 11/24/2005 12:06 PM CDT PHOSPHORUS Routine 11/24/2005 12:01 PM CDT MAGNESIUM LEVEL Routine 11/24/2005 12:01 PM CDT COMPREHENSIVE METABOLIC PANEL Routine 11/24/2005 12:01 PM CDT documented in this encounter Results * POC GLUCOSE (02/08/2006 6:40 PM WATER RESOURCE MANAGER) [facility] GLUCOSE POC 96 65 - 109 mg/dL INTERFACE SYSTEM 02/08/2006 6:40 PM WATER RESOURCE MANAGER Wicho Gomez MD POINT OF CARE TESTING Final R esult Performing Organization Address [facility] de Phone Number INTERFACE SYSTEM Refer to clinic/hospital department * (ABNORMAL) POC GLUCOSE (02/08/2006 2:15 PM WATER RESOURCE MANAGER) GLUCOSE POC 149(H) 65 - 109 mg/dL INTERFACE SYSTEM 02/08/2006 2:15 PM WATER RESOURCE MANAGER Wicho Gomez MD POINT OF CARE TESTING Final R esult Performing Organization Address [facility] de Phone Number INTERFACE SYSTEM Refer to clinic/hospital department * CBC WITH DIFFERENTIAL (02/08/2006 3:30 AM WATER RESOURCE MANAGER) NEUTROPHIL ABSOLUTE 3.40 1.90 - 7.00 K/uL INTERFACE SYSTEM LYMPHOCYTE ABSOLUTE 1.25 0.70 - 4.50 K/uL INTERFACE SYSTEM MONOCYTE ABSOLUTE 0.25 0.10 - 1.30 K/uL INTERFACE SYSTEM EOSINOPHIL ABSOLUTE 0.05 0.00 - 0.70 K/uL INTERFACE SYSTEM BASOPHILS ABSOLUTE 0.05 0.00 - 0.20 K/uL INTERFACE SYSTEM NEUTROPHILS, SEG 68 45 - 70 % INT ERFACE SYSTEM LYMPHOCYTES 25 16 - 45 % INTERFAC E SYSTEM MONOCYTES 5 3 - 13 % INTERFACE SYSTEM EOSINOPHILS 1 0 - 7 % INTERFAC E SYSTEM BASOPHILS 1 0 - 2 % INTERFACE SYSTEM PLATELET EST. Consistent w/ count Normal INTERFACE SYSTEM ANISOCYTOSIS Slight INTERFA CE SYSTEM REVIEWED ON SMEAR WBC & Plt Reviewed INTERFACE SYSTEM 02/08/2006 3:30 AM WATER RESOURCE MANAGER Harshad Heller MD HEMATOLOGY ORDERABLES Final Res ult Performing Organization Address [facility] de Phone Number INTERFACE SYSTEM Refer to clinic/hospital department * (ABNORMAL) CBC WITH DIFFERENTIAL (02/08/2006 3:30 AM WATER RESOURCE MANAGER) WBC 5.0 4.0 - 9.8 K/uL INTERFACE SYSTEM RBC 2.83(L) 4.50 - 5.40 M/uL INTERFACE SYSTEM HEMOGLOBIN 8.4(L) 13.6 - 16.5 g/dL INTERFACE SYSTEM HEMATOCRIT 25.6(L) 40.0 - 48.0 % INTERFACE SYSTEM MCV 90.5 82.0 - 99.0 fL INTERFACE SYSTEM MCH 29.7 27.2 - 32.6 pg INTERFACE SYSTEM MCHC 32.8 31.5 - 35.5 % INTERFACE SYSTEM RDW 15.7(H) 11.5 - 14.5 % INTERFACE SYSTEM RDW-STDEV 52.0(H) 37.1 - 48.7 fL INTERFACE SYSTEM PLATELETS 215 140 - 350 K/uL INTERFACE SYSTEM MPV 9.0(L) 9.3 - 12.4 fL INTERFACE SYSTEM 02/08/2006 3:30 AM WATER RESOURCE MANAGER Harshad Heller MD HEMATOLOGY ORDERABLES Final Res ult Performing Organization Address [facility] Phone Number INTERFACE SYSTEM Refer to clinic/hospital department * (ABNORMAL) PHOSPHORUS (02/08/2006 3:30 AM WATER RESOURCE MANAGER) PHOSPHORUS 5.1(H) 2.5 - 4.5 mg/dL INTERFACE SYSTEM 02/08/2006 3:30 AM WATER RESOURCE MANAGER Harshad Heller MD CHEMISTRY ORDERABLES Final Resu lt Performing Organization Address [facility] Phone Number INTERFACE SYSTEM Refer to clinic/hospital department * MAGNESIUM LEVEL (02/08/2006 3:30 AM WATER RESOURCE MANAGER) MAGNESIUM 2.1 1.5 - 2.5 mg/dL INTERFACE SYSTEM 02/08/2006 3:30 AM WATER RESOURCE MANAGER Harshad Heller MD CHEMISTRY ORDERABLES Final Resu lt Performing Organization Address [facility] Phone Number INTERFACE SYSTEM Refer to clinic/hospital department * (ABNORMAL) CALCIUM IONIZED (02/08/2006 3:30 AM WATER RESOURCE MANAGER) CALCIUM IONIZED 4.36(L) 4.76 - 5.16 mg/dL INTERFACE SYSTEM 02/08/2006 3:30 AM WATER RESOURCE MANAGER us Harshad Heller MD CHEMISTRY ORDERABLES Final Resu lt Performing Organization Address [facility] Phone Number INTERFACE SYSTEM Refer to clinic/hospital department * (ABNORMAL) BASIC METABOLIC PANEL (02/08/2006 3:30 AM WATER RESOURCE MANAGER) GLUCOSE 103(H) 65 - 99 mg/dL INTERFACE SYSTEM CREATININE 6.4(H) 0.5 - 1.3 mg/dL INTERFACE SYSTEM CALCIUM 8.0(L) 8.4 - 10.2 mg/dL INTERFACE SYSTEM BUN 76(H) 6 - 20 mg/dL INTERFACE SYSTEM SODIUM 134(L) 135 - 145 mmol/L INTERFACE SYSTEM POTASSIUM 4.8 3.5 - 4.9 mmol/L INTERFACE SYSTEM CHLORIDE 95(L) 96 - 108 mmol/L INTERFACE SYSTEM CO2 27 22 - 30 mmol/L INTERFACE SYSTEM 02/08/2006 3:30 AM WATER RESOURCE MANAGER Harshad Heller MD CHEMISTRY ORDERABLES Final Resu Performing Organization Address [facility] Phone Number INTERFACE SYSTEM Refer to clinic/hospital department * POC GLUCOSE (02/07/2006 11:50 PM WATER RESOURCE MANAGER) GLUCOSE POC 93 65 - 109 mg/dL INTERFACE SYSTEM 02/07/2006 11:5 0 PM WATER RESOURCE MANAGER us Wicho Gomez MD POINT OF CARE TESTING Final R esult Performing Organization Address [facility] Phone Number INTERFACE SYSTEM Refer to clinic/hospital department * POC GLUCOSE (02/07/2006 6:13 PM WATER RESOURCE MANAGER) GLUCOSE POC 84 65 - 109 mg/dL INTERFACE SYSTEM 02/07/2006 6:13 PM WATER RESOURCE MANAGER us Wicho Gomez MD POINT OF CARE TESTING Final R esult Performing Organization Address [facility] Phone Number INTERFACE SYSTEM Refer to clinic/hospital department * POC GLUCOSE (02/07/2006 12:03 PM WATER RESOURCE MANAGER) GLUCOSE POC 103 65 - 109 mg/dL INTERFACE SYSTEM 02/07/2006 12:0 3 PM WATER RESOURCE MANAGER us Wicho Gomez MD POINT OF CARE TESTING Final R esult Performing Organization Address City/State/[facility] Co de Phone Number INTERFACE SYSTEM Refer to clinic/hospital department * CBC WITH DIFFERENTIAL (02/07/2006 5:10 AM WATER RESOURCE MANAGER) NEUTROPHILS 68 45 - 70 % INTERFAC E SYSTEM LYMPHOCYTES 17 16 - 45 % INTERFAC E SYSTEM MONOCYTES 12 3 - 13 % INTERFACE SYSTEM EOSINOPHILS 2 0 - 7 % INTERFAC E SYSTEM BASOPHILS 1 0 - 2 % INTERFACE SYSTEM NEUTROPHIL ABSOLUTE 3.76 1.90 - 7.00 K/uL INTERFACE SYSTEM LYMPHOCYTE ABSOLUTE 0.92 0.70 - 4.50 K/uL INTERFACE SYSTEM MONOCYTE ABSOLUTE 0.67 0.10 - 1.30 K/uL INTERFACE SYSTEM EOSINOPHIL ABSOLUTE 0.12 0.00 - 0.70 K/uL INTERFACE SYSTEM BASOPHILS ABSOLUTE 0.03 0.00 - 0.20 K/uL INTERFACE SYSTEM 02/07/2006 5:10 AM WATER RESOURCE MANAGER us Romie Laughlin MD HEMATOLOGY ORDERABLES Final Result Performing Organization Address City/[facility] de Phone Number INTERFACE SYSTEM Refer to clinic/hospital department * (ABNORMAL) CBC WITH DIFFERENTIAL (02/07/2006 5:10 AM WATER RESOURCE MANAGER) WBC 5.5 4.0 - 9.8 K/uL INTERFACE SYSTEM RBC 2.96(L) 4.50 - 5.40 M/uL INTERFACE SYSTEM HEMOGLOBIN 8.6(L) 13.6 - 16.5 g/dL INTERFACE SYSTEM HEMATOCRIT 26.1(L) 40.0 - 48.0 % INTERFACE SYSTEM MCV 88.2 82.0 - 99.0 fL INTERFACE SYSTEM MCH 29.1 27.2 - 32.6 pg INTERFACE SYSTEM MCHC 33.0 31.5 - 35.5 % INTERFACE SYSTEM RDW 15.7(H) 11.5 - 14.5 % INTERFACE SYSTEM RDW-STDEV 50.8(H) 37.1 - 48.7 fL INTERFACE SYSTEM PLATELETS 265 140 - 350 K/uL INTERFACE SYSTEM MPV 9.5 9.3 - 12.4 fL INTERFACE SYSTEM 02/07/2006 5:10 AM WATER RESOURCE MANAGER Romie Laughlin MD HEMATOLOGY ORDERABLES Final Result Performing Organization Address City/[facility] Phone Number INTERFACE SYSTEM Refer to clinic/hospital department * VANCOMYCIN LEVEL RANDOM (02/07/2006 5:10 AM WATER RESOURCE MANAGER) VANCOMYCIN, RANDOM 14.5 ug/mL INTERFACE SYSTEM Comment: Vancomycin Trough Therapeutic Range = 5.0 - 15.0 ug/mL Vancomycin Trough Toxic Level = >15.0 ug/mL Vancomycin Peak Therapeutic Range = 20.0 - 40.0 ug/mL Vancomycin Peak Toxic Level = >40.0 ug/mL 02/07/2006 5:10 AM WATER RESOURCE MANAGER Wicho Gomez MD CHEMISTRY ORDERABLES Final Re sult Performing Organization Address [facility] Phone Number INTERFACE SYSTEM Refer to clinic/hospital department * (ABNORMAL) PREALBUMIN (02/07/2006 5:10 AM WATER RESOURCE MANAGER) PREALBUMIN 41(H) 20 - 40 mg/dL INTERFACE SYSTEM 02/07/2006 5:10 AM WATER RESOURCE MANAGER Romie Laughlin MD CHEMISTRY ORDERABLES Final R esult Performing Organization Address [facility] Phone Number INTERFACE SYSTEM Refer to clinic/hospital department * PHOSPHORUS (02/07/2006 5:10 AM WATER RESOURCE MANAGER) PHOSPHORUS 4.3 2.5 - 4.5 mg/dL INTERFACE SYSTEM 02/07/2006 5:10 AM WATER RESOURCE MANAGER Romie Laughlin MD CHEMISTRY ORDERABLES Final R esult Performing Organization Address [facility] de Phone Number INTERFACE SYSTEM Refer to clinic/hospital department * MAGNESIUM LEVEL (02/07/2006 5:10 AM WATER RESOURCE MANAGER) MAGNESIUM 2.2 1.5 - 2.5 mg/dL INTERFACE SYSTEM 02/07/2006 5:10 AM WATER RESOURCE MANAGER Romie Laughlin MD CHEMISTRY ORDERABLES Final R esult Performing Organization Address City/[facility] Co de Phone Number INTERFACE SYSTEM Refer to clinic/hospital department * (ABNORMAL) CALCIUM IONIZED (02/07/2006 5:10 AM WATER RESOURCE MANAGER) CALCIUM IONIZED 4.16(L) 4.76 - 5.16 mg/dL INTERFACE SYSTEM 02/07/2006 5:10 AM WATER RESOURCE MANAGER Romie Laughlin MD CHEMISTRY ORDERABLES Final R esult Performing Organization Address [facility] de Phone Number INTERFACE SYSTEM Refer to clinic/hospital department * (ABNORMAL) COMPREHENSIVE METABOLIC PANEL (02/07/2006 5:10 AM WATER RESOURCE MANAGER) GLUCOSE 90 65 - 99 mg/dL INTERFACE SYSTEM CREATININE 6.2(H) 0.5 - 1.3 mg/dL INTERFACE SYSTEM CALCIUM 7.9(L) 8.4 - 10.2 mg/dL INTERFACE SYSTEM ALKALINE PHOSPHATASE 63 40 - 129 U/L INTERFACE SYSTEM AST 11(L) 12 - 38 U/L INTERFACE SYSTEM ALT 16 0 - 41 U/L INTERFACE SYSTEM TOTAL PROTEIN 5.7(L) 6.3 - 8.6 g/dL INTERFACE SYSTEM ALBUMIN 2.6(L) 3.4 - 4.8 g/dL INTERFACE SYSTEM BILIRUBIN TOTAL 0.2 0.2 - 1.0 mg/dL INTERFACE SYSTEM BUN 74(H) 6 - 20 mg/dL INTERFACE SYSTEM SODIUM 134(L) 135 - 145 mmol/L INTERFACE SYSTEM POTASSIUM 4.9 3.5 - 4.9 mmol/L INTERFACE SYSTEM CHLORIDE 94(L) 96 - 108 mmol/L INTERFACE SYSTEM CO2 29 22 - 30 mmol/L INTERFACE SYSTEM 02/07/2006 5:10 AM WATER RESOURCE MANAGER Romie Laughlin MD CHEMISTRY ORDERABLES Final R esult Performing Organization Address City/[facility] Co de Phone Number INTERFACE SYSTEM Refer to clinic/hospital department * POC GLUCOSE (02/07/2006 12:27 AM WATER RESOURCE MANAGER) GLUCOSE POC 81 65 - 109 mg/dL INTERFACE SYSTEM 02/07/2006 12:2 7 AM WATER RESOURCE MANAGER us Wicho Gomez MD POINT OF CARE TESTING Final R esult Performing Organization Address City/State/[facility] Co de Phone Number INTERFACE SYSTEM Refer to clinic/hospital department * POC GLUCOSE (02/06/2006 5:44 PM WATER RESOURCE MANAGER) GLUCOSE POC 95 65 - 109 mg/dL INTERFACE SYSTEM 02/06/2006 5:44 PM WATER RESOURCE MANAGER us Wicho Gomez MD POINT OF CARE TESTING Final R esult Performing Organization Address City/[facility] de Phone Number INTERFACE SYSTEM Refer to clinic/hospital department * POC GLUCOSE (02/06/2006 11:09 AM WATER RESOURCE MANAGER) GLUCOSE POC 84 65 - 109 mg/dL INTERFACE SYSTEM 02/06/2006 11:0 9 AM WATER RESOURCE MANAGER us Wicho Gomez MD POINT OF CARE TESTING Final R esult Performing Organization Address [facility] de Phone Number INTERFACE SYSTEM Refer to clinic/hospital department * (ABNORMAL) POC GLUCOSE (02/06/2006 6:08 AM WATER RESOURCE MANAGER) GLUCOSE POC 154(H) 65 - 109 mg/dL INTERFACE SYSTEM 02/06/2006 6:08 AM WATER RESOURCE MANAGER us Wicho Gomez MD POINT OF CARE TESTING Final R esult Performing Organization Address City/[facility] de Phone Number INTERFACE SYSTEM Refer to clinic/hospital department * CBC WITH DIFFERENTIAL (02/06/2006 3:40 AM WATER RESOURCE MANAGER) NEUTROPHILS 68 45 - 70 % INTERFAC E SYSTEM LYMPHOCYTES 17 16 - 45 % INTERFAC E SYSTEM MONOCYTES 11 3 - 13 % INTERFACE SYSTEM EOSINOPHILS 4 0 - 7 % INTERFAC E SYSTEM BASOPHILS 1 0 - 2 % INTERFACE SYSTEM NEUTROPHIL ABSOLUTE 4.16 1.90 - 7.00 K/uL INTERFACE SYSTEM LYMPHOCYTE ABSOLUTE 1.04 0.70 - 4.50 K/uL INTERFACE SYSTEM MONOCYTE ABSOLUTE 0.65 0.10 - 1.30 K/uL INTERFACE SYSTEM EOSINOPHIL ABSOLUTE 0.22 0.00 - 0.70 K/uL INTERFACE SYSTEM BASOPHILS ABSOLUTE 0.04 0.00 - 0.20 K/uL INTERFACE SYSTEM 02/06/2006 3:40 AM WATER RESOURCE MANAGER Romie Laughlin MD HEMATOLOGY ORDERABLES Final Result Performing Organization Address City/[facility] de Phone Number INTERFACE SYSTEM Refer to clinic/hospital department * (ABNORMAL) CBC WITH DIFFERENTIAL (02/06/2006 3:40 AM WATER RESOURCE MANAGER) WBC 6.1 4.0 - 9.8 K/uL INTERFACE SYSTEM RBC 3.12(L) 4.50 - 5.40 M/uL INTERFACE SYSTEM HEMOGLOBIN 9.2(L) 13.6 - 16.5 g/dL INTERFACE SYSTEM HEMATOCRIT 27.9(L) 40.0 - 48.0 % INTERFACE SYSTEM MCV 89.4 82.0 - 99.0 fL INTERFACE SYSTEM MCH 29.5 27.2 - 32.6 pg INTERFACE SYSTEM MCHC 33.0 31.5 - 35.5 % INTERFACE SYSTEM RDW 16.0(H) 11.5 - 14.5 % INTERFACE SYSTEM RDW-STDEV 51.4(H) 37.1 - 48.7 fL INTERFACE SYSTEM PLATELETS 245 140 - 350 K/uL INTERFACE SYSTEM MPV 9.5 9.3 - 12.4 fL INTERFACE SYSTEM 02/06/2006 3:40 AM WATER RESOURCE MANAGER Romie Laughlin MD HEMATOLOGY ORDERABLES Final Result Performing Organization Address City/[facility] de Phone Number INTERFACE SYSTEM Refer to clinic/hospital department * PHOSPHORUS (02/06/2006 3:40 AM WATER RESOURCE MANAGER) PHOSPHORUS 3.7 2.5 - 4.5 mg/dL INTERFACE SYSTEM 02/06/2006 3:40 AM WATER RESOURCE MANAGER Romie Laughlin MD CHEMISTRY ORDERABLES Final R esult Performing Organization Address City/[facility]/ZIP Co de Phone Number INTERFACE SYSTEM Refer to clinic/hospital department * MAGNESIUM LEVEL (02/06/2006 3:40 AM WATER RESOURCE MANAGER) MAGNESIUM 2.1 1.5 - 2.5 mg/dL INTERFACE SYSTEM 02/06/2006 3:40 AM WATER RESOURCE MANAGER Romie Laughlin MD CHEMISTRY ORDERABLES Final R esult Performing Organization Address [facility] Phone Number INTERFACE SYSTEM Refer to clinic/hospital department * (ABNORMAL) CALCIUM IONIZED (02/06/2006 3:40 AM WATER RESOURCE MANAGER) CALCIUM IONIZED 4.04(L) 4.76 - 5.16 mg/dL INTERFACE SYSTEM 02/06/2006 3:40 AM WATER RESOURCE MANAGER Romie Laughlin MD CHEMISTRY ORDERABLES Final R esult Performing Organization Address [facility] Phone Number INTERFACE SYSTEM Refer to clinic/hospital department * (ABNORMAL) BASIC METABOLIC PANEL (02/06/2006 3:40 AM WATER RESOURCE MANAGER) GLUCOSE 142(H) 65 - 99 mg/dL INTERFACE SYSTEM CREATININE 5.5(H) 0.5 - 1.3 mg/dL INTERFACE SYSTEM CALCIUM 7.4(L) 8.4 - 10.2 mg/dL INTERFACE SYSTEM BUN 65(H) 6 - 20 mg/dL INTERFACE SYSTEM SODIUM 134(L) 135 - 145 mmol/L INTERFACE SYSTEM POTASSIUM 4.1 3.5 - 4.9 mmol/L INTERFACE SYSTEM CHLORIDE 94(L) 96 - 108 mmol/L INTERFACE SYSTEM CO2 27 22 - 30 mmol/L INTERFACE SYSTEM 02/06/2006 3:40 AM WATER RESOURCE MANAGER Romie Laughlin MD CHEMISTRY ORDERABLES Final R esult Performing Organization Address [facility] Phone Number INTERFACE SYSTEM Refer to clinic/hospital department * VANCOMYCIN LEVEL RANDOM (02/06/2006 3:20 AM WATER RESOURCE MANAGER) VANCOMYCIN, RANDOM 17.5 ug/mL INTERFACE SYSTEM Comment: Vancomycin Trough Therapeutic Range = 5.0 - 15.0 ug/mL Vancomycin Trough Toxic Level = >15.0 ug/mL Vancomycin Peak Therapeutic Range = 20.0 - 40.0 ug/mL Vancomycin Peak Toxic Level = >40.0 ug/mL 02/06/2006 3:20 AM WATER RESOURCE MANAGER us Wicho Gomez MD CHEMISTRY ORDERABLES Final Re sult Performing Organization Address [facility] Phone Number INTERFACE SYSTEM Refer to clinic/hospital department * (ABNORMAL) POC GLUCOSE (2006 11:59 PM WATER RESOURCE MANAGER) GLUCOSE POC 137(H) 65 - 109 mg/dL INTERFACE SYSTEM 2006 11:5 9 PM WATER RESOURCE MANAGER Result Roxie Gomez MD POINT OF CARE TESTING Final R esult Performing Organization Address [facility] Phone Number INTERFACE SYSTEM Refer to clinic/hospital department * POC GLUCOSE (2006 5:23 PM WATER RESOURCE MANAGER) GLUCOSE POC 90 65 - 109 mg/dL INTERFACE SYSTEM 2006 5:23 PM WATER RESOURCE MANAGER Result Roxie Gomez MD POINT OF CARE TESTING Final R krystalult Performing Organization Address [facility] Phone Number INTERFACE SYSTEM Refer to clinic/hospital department * POC GLUCOSE (2006 4:36 PM WATER RESOURCE MANAGER) GLUCOSE POC 82 65 - 109 mg/dL INTERFACE SYSTEM 2006 4:36 PM WATER RESOURCE MANAGER Result Roxie Gomez MD POINT OF CARE TESTING Final R esult Performing Organization Address [facility] Phone Number INTERFACE SYSTEM Refer to clinic/hospital department * (ABNORMAL) POC GLUCOSE (2006 12:52 PM WATER RESOURCE MANAGER) GLUCOSE POC 164(H) 65 - 109 mg/dL INTERFACE SYSTEM 2006 12:5 2 PM WATER RESOURCE MANAGER Wicho Gomez MD POINT OF CARE TESTING Final R esult Performing Organization Address [facility] de Phone Number INTERFACE SYSTEM Refer to clinic/hospital department * (ABNORMAL) POC GLUCOSE (2006 6:13 AM WATER RESOURCE MANAGER) Pathologist [facility] GLUCOSE POC 183(H) 65 - 109 mg/dL INTERFACE SYSTEM 2006 6:13 AM WATER RESOURCE MANAGER Wicho Gomez MD POINT OF CARE TESTING Final R esult Performing Organization Address [facility] de Phone Number INTERFACE SYSTEM Refer to clinic/hospital department * (ABNORMAL) CBC WITH DIFFERENTIAL (2006 3:45 AM WATER RESOURCE MANAGER) Pathologist [facility] NEUTROPHILS 67 45 - 70 % INTERFAC E SYSTEM LYMPHOCYTES 17 16 - 45 % INTERFAC E SYSTEM MONOCYTES 14(H) 3 - 13 % INTERFACE SYSTEM EOSINOPHILS 3 0 - 7 % INTERFAC E SYSTEM BASOPHILS 1 0 - 2 % INTERFACE SYSTEM NEUTROPHIL ABSOLUTE 2.88 1.90 - 7.00 K/uL INTERFACE SYSTEM LYMPHOCYTE ABSOLUTE 0.72 0.70 - 4.50 K/uL INTERFACE SYSTEM MONOCYTE ABSOLUTE 0.59 0.10 - 1.30 K/uL INTERFACE SYSTEM EOSINOPHIL ABSOLUTE 0.11 0.00 - 0.70 K/uL INTERFACE SYSTEM BASOPHILS ABSOLUTE 0.02 0.00 - 0.20 K/uL INTERFACE SYSTEM 2006 3:45 AM WATER RESOURCE MANAGER Romie Laughlin MD HEMATOLOGY ORDERABLES Final Result Performing Organization Address [facility] de Phone Number INTERFACE SYSTEM Refer to clinic/hospital department * (ABNORMAL) CBC WITH DIFFERENTIAL (2006 3:45 AM WATER RESOURCE MANAGER) WBC 4.3 4.0 - 9.8 K/uL INTERFACE SYSTEM RBC 2.98(L) 4.50 - 5.40 M/uL INTERFACE SYSTEM HEMOGLOBIN 8.7(L) 13.6 - 16.5 g/dL INTERFACE SYSTEM HEMATOCRIT 26.2(L) 40.0 - 48.0 % INTERFACE SYSTEM MCV 87.9 82.0 - 99.0 fL INTERFACE SYSTEM MCH 29.2 27.2 - 32.6 pg INTERFACE SYSTEM MCHC 33.2 31.5 - 35.5 % INTERFACE SYSTEM RDW 15.9(H) 11.5 - 14.5 % INTERFACE SYSTEM RDW-STDEV 51.9(H) 37.1 - 48.7 fL INTERFACE SYSTEM PLATELETS 210 140 - 350 K/uL INTERFACE SYSTEM MPV 9.2(L) 9.3 - 12.4 fL INTERFACE SYSTEM 2006 3:45 AM WATER RESOURCE MANAGER Romie Laughlin MD HEMATOLOGY ORDERABLES Final Result Performing Organization Address [facility] de Phone Number INTERFACE SYSTEM Refer to clinic/hospital department * PHOSPHORUS (2006 3:45 AM WATER RESOURCE MANAGER) PHOSPHORUS 3.7 2.5 - 4.5 mg/dL INTERFACE SYSTEM 2006 3:45 AM WATER RESOURCE MANAGER Romie Laughlin MD CHEMISTRY ORDERABLES Final R esult Performing Organization Address [facility] de Phone Number INTERFACE SYSTEM Refer to clinic/hospital department * MAGNESIUM LEVEL (2006 3:45 AM WATER RESOURCE MANAGER) MAGNESIUM 1.9 1.5 - 2.5 mg/dL INTERFACE SYSTEM 2006 3:45 AM WATER RESOURCE MANAGER us Romie Laughlin MD CHEMISTRY ORDERABLES Final R esult Performing Organization Address [facility] de Phone Number INTERFACE SYSTEM Refer to clinic/hospital department * (ABNORMAL) CALCIUM IONIZED (2006 3:45 AM WATER RESOURCE MANAGER) CALCIUM IONIZED 4.12(L) 4.76 - 5.16 mg/dL INTERFACE SYSTEM 2006 3:45 AM WATER RESOURCE MANAGER us Romie Laughlin MD CHEMISTRY ORDERABLES Final R esult Performing Organization Address City/[facility] de Phone Number INTERFACE SYSTEM Refer to clinic/hospital department * (ABNORMAL) BASIC METABOLIC PANEL (2006 3:45 AM WATER RESOURCE MANAGER) GLUCOSE 125(H) 65 - 99 mg/dL INTERFACE SYSTEM CREATININE 4.8(H) 0.5 - 1.3 mg/dL INTERFACE SYSTEM Comment:Significant change f rom prior result, correlate clinically and redraw if necessary. CALCIUM 7.6(L) 8.4 - 10.2 mg/dL INTERFACE SYSTEM BUN 57(H) 6 - 20 mg/dL INTERFACE SYSTEM SODIUM 136 135 - 145 mmol/L INTERFACE SYSTEM POTASSIUM 3.5 3.5 - 4.9 mmol/L INTERFACE SYSTEM CHLORIDE 96 96 - 108 mmol/L INTERFACE SYSTEM CO2 29 22 - 30 mmol/L INTERFACE SYSTEM 2006 3:45 AM WATER RESOURCE MANAGER Romie Laughlin MD CHEMISTRY ORDERABLES Final R esult Performing Organization Address [facility] Phone Number INTERFACE SYSTEM Refer to clinic/hospital department * (ABNORMAL) POC GLUCOSE (2006 12:39 AM WATER RESOURCE MANAGER) GLUCOSE POC 154(H) 65 - 109 mg/dL INTERFACE SYSTEM 2006 12:3 9 AM WATER RESOURCE MANAGER Wicho Gomez MD POINT OF CARE TESTING Final R esult Performing Organization Address [facility] Phone Number INTERFACE SYSTEM Refer to clinic/hospital department * POC GLUCOSE (02/04/2006 10:17 PM WATER RESOURCE MANAGER) GLUCOSE POC 81 65 - 109 mg/dL INTERFACE SYSTEM 02/04/2006 10:1 7 PM WATER RESOURCE MANAGER us Wicho Gomez MD POINT OF CARE TESTING Final R esult Performing Organization Address [facility] de Phone Number INTERFACE SYSTEM Refer to clinic/hospital department * CBC WITH DIFFERENTIAL (02/04/2006 4:00 AM WATER RESOURCE MANAGER) NEUTROPHILS 68 45 - 70 % INTERFAC E SYSTEM LYMPHOCYTES 18 16 - 45 % INTERFAC E SYSTEM MONOCYTES 12 3 - 13 % INTERFACE SYSTEM EOSINOPHILS 2 0 - 7 % INTERFAC E SYSTEM BASOPHILS 1 0 - 2 % INTERFACE SYSTEM NEUTROPHIL ABSOLUTE 3.42 1.90 - 7.00 K/uL INTERFACE SYSTEM LYMPHOCYTE ABSOLUTE 0.93 0.70 - 4.50 K/uL INTERFACE SYSTEM MONOCYTE ABSOLUTE 0.59 0.10 - 1.30 K/uL INTERFACE SYSTEM EOSINOPHIL ABSOLUTE 0.10 0.00 - 0.70 K/uL INTERFACE SYSTEM BASOPHILS ABSOLUTE 0.03 0.00 - 0.20 K/uL INTERFACE SYSTEM 02/04/2006 4:00 AM WATER RESOURCE MANAGER Wicho Gomez MD HEMATOLOGY ORDERABLES Final R esult Performing Organization Address City/[facility] de Phone Number INTERFACE SYSTEM Refer to clinic/hospital department * (ABNORMAL) CBC WITH DIFFERENTIAL (02/04/2006 4:00 AM WATER RESOURCE MANAGER) WBC 5.1 4.0 - 9.8 K/uL INTERFACE SYSTEM RBC 3.09(L) 4.50 - 5.40 M/uL INTERFACE SYSTEM HEMOGLOBIN 9.1(L) 13.6 - 16.5 g/dL INTERFACE SYSTEM HEMATOCRIT 27.5(L) 40.0 - 48.0 % INTERFACE SYSTEM MCV 89.0 82.0 - 99.0 fL INTERFACE SYSTEM MCH 29.4 27.2 - 32.6 pg INTERFACE SYSTEM MCHC 33.1 31.5 - 35.5 % INTERFACE SYSTEM RDW 16.1(H) 11.5 - 14.5 % INTERFACE SYSTEM RDW-STDEV 52.4(H) 37.1 - 48.7 fL INTERFACE SYSTEM PLATELETS 234 140 - 350 K/uL INTERFACE SYSTEM MPV 10.0 9.3 - 12.4 fL INTERFACE SYSTEM 02/04/2006 4:00 AM WATER RESOURCE MANAGER Wicho Gomez MD HEMATOLOGY ORDERABLES Final R esult Performing Organization Address City/[facility] Co de Phone Number INTERFACE SYSTEM Refer to clinic/hospital department * (ABNORMAL) PHOSPHORUS (02/04/2006 4:00 AM WATER RESOURCE MANAGER) PHOSPHORUS 4.7(H) 2.5 - 4.5 mg/dL INTERFACE SYSTEM 02/04/2006 4:00 AM WATER RESOURCE MANAGER us Wicho Gomez MD CHEMISTRY ORDERABLES Final Re sult Performing Organization Address [facility] Phone Number INTERFACE SYSTEM Refer to clinic/hospital department * MAGNESIUM LEVEL (02/04/2006 4:00 AM WATER RESOURCE MANAGER) MAGNESIUM 2.2 1.5 - 2.5 mg/dL INTERFACE SYSTEM 02/04/2006 4:00 AM WATER RESOURCE MANAGER us Wicho Gomez MD CHEMISTRY ORDERABLES Final Re sult Performing Organization Address [facility] Number INTERFACE SYSTEM Refer to clinic/hospital department * (ABNORMAL) CALCIUM IONIZED (02/04/2006 4:00 AM WATER RESOURCE MANAGER) CALCIUM IONIZED 3.92(L) 4.76 - 5.16 mg/dL INTERFACE SYSTEM 02/04/2006 4:00 AM WATER RESOURCE MANAGER us Wicho Gomez MD CHEMISTRY ORDERABLES [facility] Performing Organization Address [facility] INTERFACE SYSTEM Refer to clinic/hospital department * (ABNORMAL) BASIC METABOLIC PANEL (02/04/2006 4:00 AM WATER RESOURCE MANAGER) GLUCOSE 103(H) 65 - 99 mg/dL INTERFACE SYSTEM CREATININE 6.6(H) 0.5 - 1.3 mg/dL INTERFACE SYSTEM CALCIUM 6.9(L) 8.4 - 10.2 mg/dL INTERFACE SYSTEM BUN 91(H) 6 - 20 mg/dL INTERFACE SYSTEM SODIUM 131(L) 135 - 145 mmol/L INTERFACE SYSTEM POTASSIUM 3.9 3.5 - 4.9 mmol/L INTERFACE SYSTEM CHLORIDE 94(L) 96 - 108 mmol/L INTERFACE SYSTEM CO2 24 22 - 30 mmol/L INTERFACE SYSTEM 02/04/2006 4:00 AM WATER RESOURCE MANAGER us Wicho Gomez MD CHEMISTRY ORDERABLES Final Re sult Performing Organization Address [facility] Phone Number INTERFACE SYSTEM Refer to clinic/hospital department * (ABNORMAL) POC GLUCOSE (02/04/2006 12:10 AM WATER RESOURCE MANAGER) GLUCOSE POC 113(H) 65 - 109 mg/dL INTERFACE SYSTEM 02/04/2006 12:1 0 AM WATER RESOURCE MANAGER Result Roxie Gomez MD POINT OF CARE TESTING Final R esult Performing Organization Address [facility] Phone Number INTERFACE SYSTEM Refer to clinic/hospital department * POC GLUCOSE (02/03/2006 4:58 PM WATER RESOURCE MANAGER) GLUCOSE POC 87 65 - 109 mg/dL INTERFACE SYSTEM 02/03/2006 4:58 PM WATER RESOURCE MANAGER Result Roxie Gomez MD POINT OF CARE TESTING Final R krystalult Performing Organization Address [facility] Phone Number INTERFACE SYSTEM Refer to clinic/hospital department * (ABNORMAL) POC GLUCOSE (02/03/2006 12:04 PM WATER RESOURCE MANAGER) GLUCOSE POC 60(L) 65 - 109 mg/dL INTERFACE SYSTEM 02/03/2006 12:0 4 PM WATER RESOURCE MANAGER Result Roxie Gomez MD POINT OF CARE TESTING Final R esult Performing Organization Address [facility] Phone Number INTERFACE SYSTEM Refer to clinic/hospital department * (ABNORMAL) POC GLUCOSE (02/03/2006 6:36 AM WATER RESOURCE MANAGER) GLUCOSE POC 195(H) 65 - 109 mg/dL INTERFACE SYSTEM 02/03/2006 6:36 AM WATER RESOURCE MANAGER Result Roxie Gomez MD POINT OF CARE TESTING Final R esult Performing Organization Address [facility] Phone Number INTERFACE SYSTEM Refer to clinic/hospital department * (ABNORMAL) CBC WITH DIFFERENTIAL (02/03/2006 4:00 AM WATER RESOURCE MANAGER) NEUTROPHILS 70 45 - 70 % INTERFAC E SYSTEM LYMPHOCYTES 15(L) 16 - 45 % INTERFAC E SYSTEM MONOCYTES 11 3 - 13 % INTERFACE SYSTEM EOSINOPHILS 3 0 - 7 % INTERFAC E SYSTEM BASOPHILS 1 0 - 2 % INTERFACE SYSTEM NEUTROPHIL ABSOLUTE 3.73 1.90 - 7.00 K/uL INTERFACE SYSTEM LYMPHOCYTE ABSOLUTE 0.80 0.70 - 4.50 K/uL INTERFACE SYSTEM MONOCYTE ABSOLUTE 0.60 0.10 - 1.30 K/uL INTERFACE SYSTEM EOSINOPHIL ABSOLUTE 0.17 0.00 - 0.70 K/uL INTERFACE SYSTEM BASOPHILS ABSOLUTE 0.03 0.00 - 0.20 K/uL INTERFACE SYSTEM 02/03/2006 4:00 AM WATER RESOURCE MANAGER Wicho Gomez MD HEMATOLOGY ORDERABLES Final R esult Performing Organization Address City/[facility] de Phone Number INTERFACE SYSTEM Refer to clinic/hospital department * (ABNORMAL) CBC WITH DIFFERENTIAL (02/03/2006 4:00 AM WATER RESOURCE MANAGER) WBC 5.3 4.0 - 9.8 K/uL INTERFACE SYSTEM RBC 3.12(L) 4.50 - 5.40 M/uL INTERFACE SYSTEM HEMOGLOBIN 9.2(L) 13.6 - 16.5 g/dL INTERFACE SYSTEM HEMATOCRIT 28.2(L) 40.0 - 48.0 % INTERFACE SYSTEM MCV 90.4 82.0 - 99.0 fL INTERFACE SYSTEM MCH 29.5 27.2 - 32.6 pg INTERFACE SYSTEM MCHC 32.6 31.5 - 35.5 % INTERFACE SYSTEM RDW 16.6(H) 11.5 - 14.5 % INTERFACE SYSTEM RDW-STDEV 55.2(H) 37.1 - 48.7 fL INTERFACE SYSTEM PLATELETS 224 140 - 350 K/uL INTERFACE SYSTEM MPV 10.0 9.3 - 12.4 fL INTERFACE SYSTEM 02/03/2006 4:00 AM WATER RESOURCE MANAGER Wicho Gomez MD HEMATOLOGY ORDERABLES Final R esult Performing Organization Address City/[facility] de Phone Number INTERFACE SYSTEM Refer to clinic/hospital department * PT AND APTT (02/03/2006 4:00 AM WATER RESOURCE MANAGER) PTT 32.9 24.4 - 36.4 Seconds INTERFACE SYSTEM Comment: PTT Therapeutic Range: Heparin Level ? PTT (seconds) <0.10 units/mL ? <53 0.10 - 0.30 units/mL ? 53 - 67 0.30 - 0.70 units/mL* ?67 - 95* 0.70 - 1.00 units/mL ?95 - 116 *corresponds to therapeutic range for unfractionated heparin ?? PROTIME 13.6 12.7 - 15.1 Seconds INTERFACE SYSTEM INR 0.9 0.9 - 1.1 INTERFACE SYSTEM Comment: INR Therapeutic Range: Adult: 2.0 - 3.0 for pulmonary embolism or prophylaxis against venous thrombosis or systemic embolization. 2.0 - 3.0 for patients with tissue heart valves. ?? 2.5 - 3.5 for patients with mechanical heart valves or post MD. Pediatric ??(12 years and under): 1.5 - 3.0 Although the target range in children is not well established , INR values of 1.5 - 3.0 are recommended for most patients. Higher values have been used in children with prosthetic cardiac valves and hereditary clotting disorders. (<3 days) therapeutic ranges have not been established. 02/03/2006 4:00 AM WATER RESOURCE MANAGER Wicho Gomez MD HEMATOLOGY ORDERABLES Final R esult Performing Organization Address [facility] Phone Number INTERFACE SYSTEM Refer to clinic/hospital department * PHOSPHORUS (02/03/2006 4:00 AM WATER RESOURCE MANAGER) PHOSPHORUS 4.5 2.5 - 4.5 mg/dL INTERFACE SYSTEM 02/03/2006 4:00 AM WATER RESOURCE MANAGER Wicho Gomez MD CHEMISTRY ORDERABLES Final Re sult Performing Organization Address [facility] de Phone Number INTERFACE SYSTEM Refer to clinic/hospital department * MAGNESIUM LEVEL (02/03/2006 4:00 AM WATER RESOURCE MANAGER) MAGNESIUM 1.9 1.5 - 2.5 mg/dL INTERFACE SYSTEM 02/03/2006 4:00 AM WATER RESOURCE MANAGER us Wicho Gomez MD CHEMISTRY ORDERABLES Final Re sult Performing Organization Address [facility] Phone Number INTERFACE SYSTEM Refer to clinic/hospital department * (ABNORMAL) CALCIUM IONIZED (02/03/2006 4:00 AM WATER RESOURCE MANAGER) CALCIUM IONIZED 4.04(L) 4.76 - 5.16 mg/dL INTERFACE SYSTEM 02/03/2006 4:00 AM WATER RESOURCE MANAGER us Wicho Gomez MD CHEMISTRY ORDERABLES Final Re sult Performing Organization Address [facility] Phone Number INTERFACE SYSTEM Refer to clinic/hospital department * (ABNORMAL) BASIC METABOLIC PANEL (02/03/2006 4:00 AM WATER RESOURCE MANAGER) GLUCOSE 154(H) 65 - 99 mg/dL INTERFACE SYSTEM CREATININE 6.1(H) 0.5 - 1.3 mg/dL INTERFACE SYSTEM CALCIUM 7.1(L) 8.4 - 10.2 mg/dL INTERFACE SYSTEM BUN 84(H) 6 - 20 mg/dL INTERFACE SYSTEM SODIUM 134(L) 135 - 145 mmol/L INTERFACE SYSTEM POTASSIUM 3.5 3.5 - 4.9 mmol/L INTERFACE SYSTEM CHLORIDE 96 96 - 108 mmol/L INTERFACE SYSTEM CO2 25 22 - 30 mmol/L INTERFACE SYSTEM 02/03/2006 4:00 AM WATER RESOURCE MANAGER us Wicho Gomez MD CHEMISTRY ORDERABLES Final Re sult Performing Organization Address [facility] Phone Number INTERFACE SYSTEM Refer to clinic/hospital department * (ABNORMAL) POC GLUCOSE (02/03/2006 12:22 AM WATER RESOURCE MANAGER) GLUCOSE POC 137(H) 65 - 109 mg/dL INTERFACE SYSTEM 02/03/2006 12:2 2 AM WATER RESOURCE MANAGER us Wicho Gomez MD POINT OF CARE TESTING Final R esult Performing Organization Address [facility] Phone Number INTERFACE SYSTEM Refer to clinic/hospital department * (ABNORMAL) VANCOMYCIN LEVEL TROUGH (02/03/2006 12:15 AM WATER RESOURCE MANAGER) VANCOMYCIN, TROUGH 30.8(AA) 5.0 - 15.0 ug/mL INTERFACE SYSTEM Comment: Vancomycin Trough Toxic Level= ??>15.0 ug/mL Results called to regine at 02/04/2006 1:26 AM and read back verified. 02/03/2006 12:1 5 AM WATER RESOURCE MANAGER us Wicho Gomez MD CHEMISTRY ORDERABLES Final Re sult Performing Organization Address [facility] Phone Number INTERFACE SYSTEM Refer to clinic/hospital department * POC GLUCOSE (02/02/2006 5:25 PM WATER RESOURCE MANAGER) GLUCOSE POC 85 65 - 109 mg/dL INTERFACE SYSTEM 02/02/2006 5:25 PM WATER RESOURCE MANAGER us Wicho Gomez MD POINT OF CARE TESTING Final R esult Performing Organization Address [facility] Phone Number INTERFACE SYSTEM Refer to clinic/hospital department * POC GLUCOSE (02/02/2006 1:29 PM WATER RESOURCE MANAGER) GLUCOSE POC 106 65 - 109 mg/dL INTERFACE SYSTEM 02/02/2006 1:29 PM WATER RESOURCE MANAGER us Wicho Gomez MD POINT OF CARE TESTING Final R esult Performing Organization Address [facility] de Phone Number INTERFACE SYSTEM Refer to clinic/hospital department * POC GLUCOSE (02/02/2006 11:55 AM WATER RESOURCE MANAGER) GLUCOSE POC 75 65 - 109 mg/dL INTERFACE SYSTEM 02/02/2006 11:5 5 AM WATER RESOURCE MANAGER us Wicho Gomez MD POINT OF CARE TESTING Final R esult Performing Organization Address [facility] de Phone Number INTERFACE SYSTEM Refer to clinic/hospital department * (ABNORMAL) POC GLUCOSE (02/02/2006 5:56 AM WATER RESOURCE MANAGER) GLUCOSE POC 191(H) 65 - 109 mg/dL INTERFACE SYSTEM 02/02/2006 5:56 AM WATER RESOURCE MANAGER us Wicho Gomez MD POINT OF CARE TESTING Final R esult Performing Organization Address [facility] de Phone Number INTERFACE SYSTEM Refer to clinic/hospital department * PHOSPHORUS (02/02/2006 4:29 AM WATER RESOURCE MANAGER) PHOSPHORUS 2.9 2.5 - 4.5 mg/dL INTERFACE SYSTEM 02/02/2006 4:29 AM WATER RESOURCE MANAGER us Wicho Gomez MD CHEMISTRY ORDERABLES Final Re sult Performing Organization Address [facility] Phone Number INTERFACE SYSTEM Refer to clinic/hospital department * MAGNESIUM LEVEL (02/02/2006 4:29 AM WATER RESOURCE MANAGER) MAGNESIUM 2.0 1.5 - 2.5 mg/dL INTERFACE SYSTEM 02/02/2006 4:29 AM WATER RESOURCE MANAGER us Wicho Gomez MD CHEMISTRY ORDERABLES Final Re sult Performing Organization Address [facility] de Phone Number INTERFACE SYSTEM Refer to clinic/hospital department * (ABNORMAL) CBC WITH DIFFERENTIAL (02/02/2006 3:30 AM WATER RESOURCE MANAGER) NEUTROPHILS 75(H) 45 - 70 % INTERFAC E SYSTEM LYMPHOCYTES 11(L) 16 - 45 % INTERFAC E SYSTEM MONOCYTES 12 3 - 13 % INTERFACE SYSTEM EOSINOPHILS 2 0 - 7 % INTERFAC E SYSTEM BASOPHILS 0 0 - 2 % INTERFACE SYSTEM NEUTROPHIL ABSOLUTE 4.43 1.90 - 7.00 K/uL INTERFACE SYSTEM LYMPHOCYTE ABSOLUTE 0.65(L) 0.70 - 4.50 K/uL INTERFACE SYSTEM MONOCYTE ABSOLUTE 0.69 0.10 - 1.30 K/uL INTERFACE SYSTEM EOSINOPHIL ABSOLUTE 0.13 0.00 - 0.70 K/uL INTERFACE SYSTEM BASOPHILS ABSOLUTE 0.01 0.00 - 0.20 K/uL INTERFACE SYSTEM 02/02/2006 3:30 AM WATER RESOURCE MANAGER Romie Laughlin MD HEMATOLOGY ORDERABLES Final Result Performing Organization Address [facility] Phone Number INTERFACE SYSTEM Refer to clinic/hospital department * (ABNORMAL) CBC WITH DIFFERENTIAL (02/02/2006 3:30 AM WATER RESOURCE MANAGER) WBC 5.9 4.0 - 9.8 K/uL INTERFACE SYSTEM RBC 3.04(L) 4.50 - 5.40 M/uL INTERFACE SYSTEM HEMOGLOBIN 8.9(L) 13.6 - 16.5 g/dL INTERFACE SYSTEM HEMATOCRIT 27.1(L) 40.0 - 48.0 % INTERFACE SYSTEM MCV 89.1 82.0 - 99.0 fL INTERFACE SYSTEM MCH 29.3 27.2 - 32.6 pg INTERFACE SYSTEM MCHC 32.8 31.5 - 35.5 % INTERFACE SYSTEM RDW 16.7(H) 11.5 - 14.5 % INTERFACE SYSTEM RDW-STDEV 54.7(H) 37.1 - 48.7 fL INTERFACE SYSTEM PLATELETS 209 140 - 350 K/uL INTERFACE SYSTEM MPV 9.8 9.3 - 12.4 fL INTERFACE SYSTEM 02/02/2006 3:30 AM WATER RESOURCE MANAGER Romie Laughlin MD HEMATOLOGY ORDERABLES Final Result Performing Organization Address [facility] Phone Number INTERFACE SYSTEM Refer to clinic/hospital department * (ABNORMAL) BASIC METABOLIC PANEL (02/02/2006 3:30 AM WATER RESOURCE MANAGER) GLUCOSE 166(H) 65 - 99 mg/dL INTERFACE SYSTEM CREATININE 5.4(H) 0.5 - 1.3 mg/dL INTERFACE SYSTEM CALCIUM 7.8(L) 8.4 - 10.2 mg/dL INTERFACE SYSTEM BUN 74(H) 6 - 20 mg/dL INTERFACE SYSTEM SODIUM 137 135 - 145 mmol/L INTERFACE SYSTEM POTASSIUM 3.2(L) 3.5 - 4.9 mmol/L INTERFACE SYSTEM CHLORIDE 99 96 - 108 mmol/L INTERFACE SYSTEM CO2 28 22 - 30 mmol/L INTERFACE SYSTEM 02/02/2006 3:30 AM WATER RESOURCE MANAGER us Romie Laughlin MD CHEMISTRY ORDERABLES Final R esult Performing Organization Address [facility] de Phone Number INTERFACE SYSTEM Refer to clinic/hospital department * (ABNORMAL) POC GLUCOSE (02/01/2006 11:43 PM WATER RESOURCE MANAGER) GLUCOSE POC 129(H) 65 - 109 mg/dL INTERFACE SYSTEM 02/01/2006 11:4 3 PM WATER RESOURCE MANAGER us Wicho Gomez MD POINT OF CARE TESTING Final R esult Performing Organization Address [facility] de Phone Number INTERFACE SYSTEM Refer to clinic/hospital department * POC GLUCOSE (02/01/2006 5:05 PM WATER RESOURCE MANAGER) GLUCOSE POC 67 65 - 109 mg/dL INTERFACE SYSTEM 02/01/2006 5:05 PM WATER RESOURCE MANAGER Result Roxie Gomez MD POINT OF CARE TESTING [facility] Performing Organization Address [facility] Phone Number INTERFACE SYSTEM Refer to clinic/hospital department * POC GLUCOSE (02/01/2006 11:37 AM WATER RESOURCE MANAGER) GLUCOSE POC 84 65 - 109 mg/dL INTERFACE SYSTEM 02/01/2006 11:3 7 AM WATER RESOURCE MANAGER us Wicho Gomez MD POINT OF CARE TESTING Final R esult Performing Organization Address [facility] de Phone Number INTERFACE SYSTEM Refer to clinic/hospital department * (ABNORMAL) POC GLUCOSE (02/01/2006 6:11 AM WATER RESOURCE MANAGER) COMMENT, GLU POC Notified RN INTERFACE SYSTEM GLUCOSE POC 166(H) 65 - 109 mg/dL INTERFACE SYSTEM 02/01/2006 6:11 AM WATER RESOURCE MANAGER us Wicho Gomez MD POINT OF CARE TESTING Final R esult Performing Organization Address [facility] de Phone Number INTERFACE SYSTEM Refer to clinic/hospital department * (ABNORMAL) COMPREHENSIVE METABOLIC PANEL (02/01/2006 4:40 AM WATER RESOURCE MANAGER) GLUCOSE 151(H) 65 - 99 mg/dL INTERFACE SYSTEM CREATININE 7.0(AA) 0.5 - 1.3 mg/dL INTERFACE SYSTEM Comment:Persistent abnormal result CALCIUM 7.9(L) 8.4 - 10.2 mg/dL INTERFACE SYSTEM ALKALINE PHOSPHATASE 89 40 - 129 U/L INTERFACE SYSTEM AST 9(L) 12 - 38 U/L INTERFACE SYSTEM ALT 29 0 - 41 U/L INTERFACE SYSTEM TOTAL PROTEIN 5.4(L) 6.3 - 8.6 g/dL INTERFACE SYSTEM ALBUMIN 2.5(L) 3.4 - 4.8 g/dL INTERFACE SYSTEM BILIRUBIN TOTAL 0.2 0.2 - 1.0 mg/dL INTERFACE SYSTEM BUN 103(AA) 6 - 20 mg/dL INTERFACE SYSTEM Comment:Persistent abnormal result SODIUM 138 135 - 145 mmol/L INTERFACE SYSTEM POTASSIUM 3.4(L) 3.5 - 4.9 mmol/L INTERFACE SYSTEM CHLORIDE 101 96 - 108 mmol/L INTERFACE SYSTEM CO2 22 22 - 30 mmol/L INTERFACE SYSTEM 02/01/2006 4:40 AM WATER RESOURCE MANAGER us Wicho Gomez MD CHEMISTRY ORDERABLES Final Re sult Performing Organization Address [facility] de Phone Number INTERFACE SYSTEM Refer to clinic/hospital department * OCCULT BLOOD, STOOL (02/01/2006 4:40 AM WATER RESOURCE MANAGER) OCCULT BLOOD, STOOL Negative Negative INTERFACE SYSTEM 02/01/2006 4:40 AM WATER RESOURCE MANAGER us Wicho Gomez MD BODY FLUIDS AND STOOLS Final Result Performing Organization Address [facility] de Phone Number INTERFACE SYSTEM Refer to clinic/hospital department * (ABNORMAL) CBC WITH DIFFERENTIAL (02/01/2006 4:40 AM WATER RESOURCE MANAGER) NEUTROPHILS 75(H) 45 - 70 % INTERFAC E SYSTEM LYMPHOCYTES 15(L) 16 - 45 % INTERFAC E SYSTEM MONOCYTES 9 3 - 13 % INTERFACE SYSTEM EOSINOPHILS 2 0 - 7 % INTERFAC E SYSTEM BASOPHILS 0 0 - 2 % INTERFACE SYSTEM NEUTROPHIL ABSOLUTE 4.94 1.90 - 7.00 K/uL INTERFACE SYSTEM LYMPHOCYTE ABSOLUTE 0.97 0.70 - 4.50 K/uL INTERFACE SYSTEM MONOCYTE ABSOLUTE 0.58 0.10 - 1.30 K/uL INTERFACE SYSTEM EOSINOPHIL ABSOLUTE 0.11 0.00 - 0.70 K/uL INTERFACE SYSTEM BASOPHILS ABSOLUTE 0.02 0.00 - 0.20 K/uL INTERFACE SYSTEM 02/01/2006 4:40 AM WATER RESOURCE MANAGER Romie Laughlin MD HEMATOLOGY ORDERABLES Final Result INTERFACE SYSTEM Refer to clinic/hospital department * (ABNORMAL) CBC WITH DIFFERENTIAL (02/01/2006 4:40 AM WATER RESOURCE MANAGER) WBC 6.6 4.0 - 9.8 K/uL INTERFACE SYSTEM RBC 3.11(L) 4.50 - 5.40 M/uL INTERFACE SYSTEM HEMOGLOBIN 9.4(L) 13.6 - 16.5 g/dL INTERFACE SYSTEM HEMATOCRIT 28.0(L) 40.0 - 48.0 % INTERFACE SYSTEM MCV 90.0 82.0 - 99.0 fL INTERFACE SYSTEM MCH 30.2 27.2 - 32.6 pg INTERFACE SYSTEM MCHC 33.6 31.5 - 35.5 % INTERFACE SYSTEM RDW 16.8(H) 11.5 - 14.5 % INTERFACE SYSTEM RDW-STDEV 55.3(H) 37.1 - 48.7 fL INTERFACE SYSTEM PLATELETS 218 140 - 350 K/uL INTERFACE SYSTEM MPV 10.1 9.3 - 12.4 fL INTERFACE SYSTEM 02/01/2006 4:40 AM WATER RESOURCE MANAGER Romie Laughlin MD HEMATOLOGY ORDERABLES Final Result Performing Organization Address City/[facility]/ZIP Co de Phone Number INTERFACE SYSTEM Refer to clinic/hospital department * (ABNORMAL) PREALBUMIN (02/01/2006 4:40 AM WATER RESOURCE MANAGER) PREALBUMIN 49(H) 20 - 40 mg/dL INTERFACE SYSTEM 02/01/2006 4:40 AM WATER RESOURCE MANAGER Romie Laughlin MD CHEMISTRY ORDERABLES Final R esult Performing Organization Address [place]/[facility] Phone Number INTERFACE SYSTEM Refer to clinic/hospital department * (ABNORMAL) TSH (02/01/2006 4:40 AM WATER RESOURCE MANAGER) TSH 4.25(H) 0.27 - 4.20 uU/mL INTERFACE SYSTEM 02/01/2006 4:40 AM WATER RESOURCE MANAGER Romie Laughlin MD CHEMISTRY ORDERABLES Final R esult Performing Organization Address [facility] Phone Number INTERFACE SYSTEM Refer to clinic/hospital department * T4 FREE (02/01/2006 4:40 AM WATER RESOURCE MANAGER) T4 FREE 1.4 0.9 - 1.7 ng/dL INTERFACE SYSTEM 02/01/2006 4:40 AM WATER RESOURCE MANAGER Romie Laughlin MD CHEMISTRY ORDERABLES Final R esult Performing Organization Address [facility] Phone Number INTERFACE SYSTEM Refer to clinic/hospital department * (ABNORMAL) T3 FREE (02/01/2006 4:40 AM WATER RESOURCE MANAGER) T3 FREE 2.2(L) 2.5 - 4.4 pg/mL INTERFACE SYSTEM 02/01/2006 4:40 AM WATER RESOURCE MANAGER Romie Laughlin MD CHEMISTRY ORDERABLES Final R esult Performing Organization Address [facility] Phone Number INTERFACE SYSTEM Refer to clinic/hospital department * PHOSPHORUS (02/01/2006 4:40 AM WATER RESOURCE MANAGER) PHOSPHORUS 3.3 2.5 - 4.5 mg/dL INTERFACE SYSTEM 02/01/2006 4:40 AM WATER RESOURCE MANAGER Romie Laughlin MD CHEMISTRY ORDERABLES Final R esult Performing Organization Address City/[facility]/ZIP Co de Phone Number INTERFACE SYSTEM Refer to clinic/hospital department * MAGNESIUM LEVEL (02/01/2006 4:40 AM WATER RESOURCE MANAGER) MAGNESIUM 2.5 1.5 - 2.5 mg/dL INTERFACE SYSTEM 02/01/2006 4:40 AM WATER RESOURCE MANAGER Romie Laughlin MD CHEMISTRY ORDERABLES Final R esult Performing Organization Address [facility] Phone Number INTERFACE SYSTEM Refer to clinic/hospital department * (ABNORMAL) POC GLUCOSE (01/31/2006 11:57 PM WATER RESOURCE MANAGER) COMMENT, GLU POC Notified RN INTERFACE SYSTEM GLUCOSE POC 124(H) 65 - 109 mg/dL INTERFACE SYSTEM 01/31/2006 11:5 7 PM WATER RESOURCE MANAGER Wicho Gomez MD POINT OF CARE TESTING Final R esult Performing Organization Address [facility] Phone Number INTERFACE SYSTEM Refer to clinic/hospital department * POC GLUCOSE (01/31/2006 5:07 PM WATER RESOURCE MANAGER) GLUCOSE POC 93 65 - 109 mg/dL INTERFACE SYSTEM 01/31/2006 5:07 PM WATER RESOURCE MANAGER Wicho Gomez MD POINT OF CARE TESTING Final [facility] Performing Organization Address [facility] Phone Number INTERFACE SYSTEM Refer to clinic/hospital department * (ABNORMAL) POC GLUCOSE (01/31/2006 11:10 AM WATER RESOURCE MANAGER) GLUCOSE POC 144(H) 65 - 109 mg/dL INTERFACE SYSTEM 01/31/2006 11:1 0 AM WATER RESOURCE MANAGER Wicho Gomez MD POINT OF CARE TESTING Final R esult Performing Organization Address [facility] de Phone Number INTERFACE SYSTEM Refer to clinic/hospital department * (ABNORMAL) URINALYSIS (01/31/2006 10:03 AM WATER RESOURCE MANAGER) COLOR UA Yellow INTERFACE SYSTEM CLARITY UA Slt. Cloudy(A) Clear INTERFACE SYSTEM SPECIFIC GRAVITY UA 1.009 1.001 - 1.035 INTERFACE SYSTEM PH UA 5.0 5.0 - 8.0 INTERFACE SYSTEM LEUKOCYTE ESTERASE UA Trace(A) Negative INTERFACE SYSTEM NITRITE UA Negative Negative INTERFACE SYSTEM PROTEIN UA 1+(A) Negative INTERFACE SYSTEM GLUCOSE UA Negative Negative INTERFACE SYSTEM KETONES UA Negative Negative INTERFACE SYSTEM UROBILINOGEN UA <1 <=1 mg/dL INTE RFACE SYSTEM BILIRUBIN UA Negative Negative INTERFA CE SYSTEM BLOOD UA Negative Negative INTERFACE SYSTEM WBC UA 4(H) 0 - 3 /HPF INTERFACE SYSTEM RBC UA 3 0 - 3 /HPF INTERFACE SYSTEM YEAST Many(A) None Seen /HPF INTERFACE SYSTEM 01/31/2006 10:0 3 AM WATER RESOURCE MANAGER Romie Laughlin MD URINE ORDERABLES Final Resul t Performing Organization Address [facility] Phone Number INTERFACE SYSTEM Refer to clinic/hospital department * (ABNORMAL) CBC WITH DIFFERENTIAL (01/31/2006 4:00 AM WATER RESOURCE MANAGER) NEUTROPHILS 76(H) 45 - 70 % INTERFAC E SYSTEM LYMPHOCYTES 11(L) 16 - 45 % INTERFAC E SYSTEM MONOCYTES 11 3 - 13 % INTERFACE SYSTEM EOSINOPHILS 2 0 - 7 % INTERFAC E SYSTEM BASOPHILS 1 0 - 2 % INTERFACE SYSTEM NEUTROPHIL ABSOLUTE 5.07 1.90 - 7.00 K/uL INTERFACE SYSTEM LYMPHOCYTE ABSOLUTE 0.71 0.70 - 4.50 K/uL INTERFACE SYSTEM MONOCYTE ABSOLUTE 0.71 0.10 - 1.30 K/uL INTERFACE SYSTEM EOSINOPHIL ABSOLUTE 0.13 0.00 - 0.70 K/uL INTERFACE SYSTEM BASOPHILS ABSOLUTE 0.03 0.00 - 0.20 K/uL INTERFACE SYSTEM 01/31/2006 4:00 AM WATER RESOURCE MANAGER us Wicho Gomez MD HEMATOLOGY ORDERABLES Final R esult Performing Organization Address [facility] Phone Number INTERFACE SYSTEM Refer to clinic/hospital department * (ABNORMAL) CBC WITH DIFFERENTIAL (01/31/2006 4:00 AM WATER RESOURCE MANAGER) WBC 6.7 4.0 - 9.8 K/uL INTERFACE SYSTEM RBC 2.92(L) 4.50 - 5.40 M/uL INTERFACE SYSTEM HEMOGLOBIN 8.5(L) 13.6 - 16.5 g/dL INTERFACE SYSTEM HEMATOCRIT 26.9(L) 40.0 - 48.0 % INTERFACE SYSTEM MCV 92.1 82.0 - 99.0 fL INTERFACE SYSTEM MCH 29.1 27.2 - 32.6 pg INTERFACE SYSTEM MCHC 31.6 31.5 - 35.5 % INTERFACE SYSTEM RDW 16.4(H) 11.5 - 14.5 % INTERFACE SYSTEM RDW-STDEV 55.9(H) 37.1 - 48.7 fL INTERFACE SYSTEM PLATELETS 222 140 - 350 K/uL INTERFACE SYSTEM MPV 10.4 9.3 - 12.4 fL INTERFACE SYSTEM 01/31/2006 4:00 AM WATER RESOURCE MANAGER Wicho Gomez MD HEMATOLOGY ORDERABLES Final R esult Performing Organization Address [facility] Phone Number INTERFACE SYSTEM Refer to clinic/hospital department * (ABNORMAL) PHOSPHORUS (01/31/2006 4:00 AM WATER RESOURCE MANAGER) PHOSPHORUS 2.0(L) 2.5 - 4.5 mg/dL INTERFACE SYSTEM 01/31/2006 4:00 AM WATER RESOURCE MANAGER Wicho Gomez MD CHEMISTRY ORDERABLES Final Re sult Performing Organization Address [facility] Phone Number INTERFACE SYSTEM Refer to clinic/hospital department * (ABNORMAL) MAGNESIUM LEVEL (01/31/2006 4:00 AM WATER RESOURCE MANAGER) MAGNESIUM 2.6(H) 1.5 - 2.5 mg/dL INTERFACE SYSTEM 01/31/2006 4:00 AM WATER RESOURCE MANAGER us Wicho Gomez MD CHEMISTRY ORDERABLES Final Re sult Performing Organization Address [facility] Phone Number INTERFACE SYSTEM Refer to clinic/hospital department * (ABNORMAL) CALCIUM IONIZED (01/31/2006 4:00 AM WATER RESOURCE MANAGER) CALCIUM IONIZED 4.56(L) 4.76 - 5.16 mg/dL INTERFACE SYSTEM 01/31/2006 4:00 AM WATER RESOURCE MANAGER us Wicho Gomez MD CHEMISTRY ORDERABLES Final Re sult Performing Organization Address [facility] Phone Number INTERFACE SYSTEM Refer to clinic/hospital department * (ABNORMAL) BASIC METABOLIC PANEL (01/31/2006 4:00 AM WATER RESOURCE MANAGER) GLUCOSE 193(H) 65 - 99 mg/dL INTERFACE SYSTEM CREATININE 6.7(H) 0.5 - 1.3 mg/dL INTERFACE SYSTEM CALCIUM 7.8(L) 8.4 - 10.2 mg/dL INTERFACE SYSTEM BUN 90(H) 6 - 20 mg/dL INTERFACE SYSTEM SODIUM 135 135 - 145 mmol/L INTERFACE SYSTEM POTASSIUM 3.1(L) 3.5 - 4.9 mmol/L INTERFACE SYSTEM CHLORIDE 98 96 - 108 mmol/L INTERFACE SYSTEM CO2 25 22 - 30 mmol/L INTERFACE SYSTEM 01/31/2006 4:00 AM WATER RESOURCE MANAGER us Wicho Gomez MD CHEMISTRY ORDERABLES Final Re diegot Performing Organization Address [facility] Phone Number INTERFACE SYSTEM Refer to clinic/hospital department * (ABNORMAL) POC GLUCOSE (01/31/2006 12:34 AM WATER RESOURCE MANAGER) GLUCOSE POC 181(H) 65 - 109 mg/dL INTERFACE SYSTEM 01/31/2006 12:3 4 AM WATER RESOURCE MANAGER us Wicho Gomez MD POINT OF CARE TESTING Final R esult Performing Organization Address [facility] Phone Number INTERFACE SYSTEM Refer to clinic/hospital department * (ABNORMAL) POC GLUCOSE (01/30/2006 5:23 PM WATER RESOURCE MANAGER) GLUCOSE POC 254(H) 65 - 109 mg/dL INTERFACE SYSTEM 01/30/2006 5:23 PM WATER RESOURCE MANAGER us Wicho Gomez MD POINT OF CARE TESTING Final R esult Performing Organization Address [facility]/ZIP Co de Phone Number INTERFACE SYSTEM Refer to clinic/hospital department * (ABNORMAL) POC GLUCOSE (01/30/2006 11:16 AM WATER RESOURCE MANAGER) GLUCOSE POC 122(H) 65 - 109 mg/dL INTERFACE SYSTEM 01/30/2006 11:1 6 AM WATER RESOURCE MANAGER Wicho Gomez MD POINT OF CARE TESTING Final R [facility] Performing Organization Address [place]/[facility] Phone Number INTERFACE SYSTEM Refer to clinic/hospital department * (ABNORMAL) CBC WITH DIFFERENTIAL (01/30/2006 3:15 AM WATER RESOURCE MANAGER) NEUTROPHILS 80(H) 45 - 70 % INTERFAC E SYSTEM LYMPHOCYTES 8(L) 16 - 45 % INTERFAC E SYSTEM MONOCYTES 10 3 - 13 % INTERFACE SYSTEM EOSINOPHILS 1 0 - 7 % INTERFAC E SYSTEM BASOPHILS 0 0 - 2 % INTERFACE SYSTEM NEUTROPHIL ABSOLUTE 7.42(H) 1.90 - 7.00 K/uL INTERFACE SYSTEM LYMPHOCYTE ABSOLUTE 0.76 0.70 - 4.50 K/uL INTERFACE SYSTEM MONOCYTE ABSOLUTE 0.93 0.10 - 1.30 K/uL INTERFACE SYSTEM EOSINOPHIL ABSOLUTE 0.12 0.00 - 0.70 K/uL INTERFACE SYSTEM BASOPHILS ABSOLUTE 0.02 0.00 - 0.20 K/uL INTERFACE SYSTEM 01/30/2006 3:15 AM WATER RESOURCE MANAGER Wicho Gomez MD HEMATOLOGY ORDERABLES Final R esult Performing Organization Address [place]/[facility] Phone Number INTERFACE SYSTEM Refer to clinic/hospital department * (ABNORMAL) CBC WITH DIFFERENTIAL (01/30/2006 3:15 AM WATER RESOURCE MANAGER) WBC 9.3 4.0 - 9.8 K/uL INTERFACE SYSTEM RBC 3.16(L) 4.50 - 5.40 M/uL INTERFACE SYSTEM HEMOGLOBIN 9.3(L) 13.6 - 16.5 g/dL INTERFACE SYSTEM HEMATOCRIT 28.9(L) 40.0 - 48.0 % INTERFACE SYSTEM MCV 91.5 82.0 - 99.0 fL INTERFACE SYSTEM MCH 29.4 27.2 - 32.6 pg INTERFACE SYSTEM MCHC 32.2 31.5 - 35.5 % INTERFACE SYSTEM RDW 16.4(H) 11.5 - 14.5 % INTERFACE SYSTEM RDW-STDEV 55.3(H) 37.1 - 48.7 fL INTERFACE SYSTEM PLATELETS 220 140 - 350 K/uL INTERFACE SYSTEM MPV 10.2 9.3 - 12.4 fL INTERFACE SYSTEM 01/30/2006 3:15 AM WATER RESOURCE MANAGER us Wicho Gomez MD HEMATOLOGY ORDERABLES Final R esult Performing Organization Address [facility] Phone Number INTERFACE SYSTEM Refer to clinic/hospital department * PHOSPHORUS (01/30/2006 3:15 AM WATER RESOURCE MANAGER) PHOSPHORUS 2.9 2.5 - 4.5 mg/dL INTERFACE SYSTEM 01/30/2006 3:15 AM WATER RESOURCE MANAGER us Wicho Gomez MD CHEMISTRY ORDERABLES Final Re sult Performing Organization Address [facility] Phone Number INTERFACE SYSTEM Refer to clinic/hospital department * MAGNESIUM LEVEL (01/30/2006 3:15 AM WATER RESOURCE MANAGER) MAGNESIUM 1.9 1.5 - 2.5 mg/dL INTERFACE SYSTEM 01/30/2006 3:15 AM WATER RESOURCE MANAGER us Wicho Gomez MD CHEMISTRY ORDERABLES Final Re sult Performing Organization Address [facility] INTERFACE SYSTEM Refer to clinic/hospital department * CALCIUM IONIZED (01/30/2006 3:15 AM WATER RESOURCE MANAGER) CALCIUM IONIZED 4.80 4.76 - 5.16 mg/dL INTERFACE SYSTEM 01/30/2006 3:15 AM WATER RESOURCE MANAGER us Wicho Gomez MD CHEMISTRY ORDERABLES Final Re sult Performing Organization Address [facility] Phone Number INTERFACE SYSTEM Refer to clinic/hospital department * (ABNORMAL) BASIC METABOLIC PANEL (01/30/2006 3:15 AM WATER RESOURCE MANAGER) GLUCOSE 132(H) 65 - 99 mg/dL INTERFACE SYSTEM CREATININE 5.7(H) 0.5 - 1.3 mg/dL INTERFACE SYSTEM CALCIUM 8.5 8.4 - 10.2 mg/dL INTERFACE SYSTEM BUN 76(H) 6 - 20 mg/dL INTERFACE SYSTEM SODIUM 138 135 - 145 mmol/L INTERFACE SYSTEM POTASSIUM 3.0(L) 3.5 - 4.9 mmol/L INTERFACE SYSTEM CHLORIDE 100 96 - 108 mmol/L INTERFACE SYSTEM CO2 26 22 - 30 mmol/L INTERFACE SYSTEM 01/30/2006 3:15 AM WATER RESOURCE MANAGER us Wicho oGmez MD CHEMISTRY ORDERABLES Final Re sult Performing Organization Address [facility] Phone Number INTERFACE SYSTEM Refer to clinic/hospital department * (ABNORMAL) POC GLUCOSE (01/29/2006 11:58 PM WATER RESOURCE MANAGER) GLUCOSE POC 169(H) 65 - 109 mg/dL INTERFACE SYSTEM 01/29/2006 11:5 8 PM WATER RESOURCE MANAGER us Wicho Gomez MD POINT OF CARE TESTING Final R esult Performing Organization Address [facility] Phone Number INTERFACE SYSTEM Refer to clinic/hospital department * (ABNORMAL) POC GLUCOSE (01/29/2006 5:06 PM WATER RESOURCE MANAGER) GLUCOSE POC 127(H) 65 - 109 mg/dL INTERFACE SYSTEM 01/29/2006 5:06 PM WATER RESOURCE MANAGER us Wicho Gomez MD POINT OF CARE TESTING Final R esult Performing Organization Address [facility] de Phone Number INTERFACE SYSTEM Refer to clinic/hospital department * (ABNORMAL) POC GLUCOSE (01/29/2006 12:46 PM WATER RESOURCE MANAGER) GLUCOSE POC 157(H) 65 - 109 mg/dL INTERFACE SYSTEM 01/29/2006 12:4 6 PM WATER RESOURCE MANAGER us Wicho Gomez MD POINT OF CARE TESTING Final R esult Performing Organization Address [facility] de Phone Number INTERFACE SYSTEM Refer to clinic/hospital department * (ABNORMAL) POC GLUCOSE (01/29/2006 6:12 AM WATER RESOURCE MANAGER) GLUCOSE POC 145(H) 65 - 109 mg/dL INTERFACE SYSTEM 01/29/2006 6:12 AM WATER RESOURCE MANAGER Wicho Gomez MD POINT OF CARE TESTING Final R [facility] Performing Organization Address [facility] de Phone Number INTERFACE SYSTEM Refer to clinic/hospital department * (ABNORMAL) CBC WITH DIFFERENTIAL (01/29/2006 4:33 AM WATER RESOURCE MANAGER) NEUTROPHILS 78(H) 45 - 70 % INTERFAC E SYSTEM LYMPHOCYTES 12(L) 16 - 45 % INTERFAC E SYSTEM MONOCYTES 9 3 - 13 % INTERFACE SYSTEM EOSINOPHILS 1 0 - 7 % INTERFAC E SYSTEM BASOPHILS 0 0 - 2 % INTERFACE SYSTEM NEUTROPHIL ABSOLUTE 7.22(H) 1.90 - 7.00 K/uL INTERFACE SYSTEM LYMPHOCYTE ABSOLUTE 1.08 0.70 - 4.50 K/uL INTERFACE SYSTEM MONOCYTE ABSOLUTE 0.85 0.10 - 1.30 K/uL INTERFACE SYSTEM EOSINOPHIL ABSOLUTE 0.08 0.00 - 0.70 K/uL INTERFACE SYSTEM BASOPHILS ABSOLUTE 0.04 0.00 - 0.20 K/uL INTERFACE SYSTEM 01/29/2006 4:33 AM WATER RESOURCE MANAGER Wicho Gomez MD HEMATOLOGY ORDERABLES Final R krystalult Performing Organization Address [facility] de Phone Number INTERFACE SYSTEM Refer to clinic/hospital department * (ABNORMAL) CBC WITH DIFFERENTIAL (01/29/2006 4:33 AM WATER RESOURCE MANAGER) WBC 9.3 4.0 - 9.8 K/uL INTERFACE SYSTEM RBC 3.18(L) 4.50 - 5.40 M/uL INTERFACE SYSTEM HEMOGLOBIN 9.3(L) 13.6 - 16.5 g/dL INTERFACE SYSTEM HEMATOCRIT 29.2(L) 40.0 - 48.0 % INTERFACE SYSTEM MCV 91.8 82.0 - 99.0 fL INTERFACE SYSTEM MCH 29.2 27.2 - 32.6 pg INTERFACE SYSTEM MCHC 31.8 31.5 - 35.5 % INTERFACE SYSTEM RDW 16.4(H) 11.5 - 14.5 % INTERFACE SYSTEM RDW-STDEV 55.1(H) 37.1 - 48.7 fL INTERFACE SYSTEM PLATELETS 236 140 - 350 K/uL INTERFACE SYSTEM MPV 10.3 9.3 - 12.4 fL INTERFACE SYSTEM 01/29/2006 4:33 AM WATER RESOURCE MANAGER us Wicho Gomez MD HEMATOLOGY ORDERABLES Final R esult Performing Organization Address [facility]. [facility] Phone Number INTERFACE SYSTEM Refer to clinic/hospital department * (ABNORMAL) CALCIUM IONIZED (01/29/2006 4:33 AM WATER RESOURCE MANAGER) CALCIUM IONIZED 4.56(L) 4.76 - 5.16 mg/dL INTERFACE SYSTEM 01/29/2006 4:33 AM WATER RESOURCE MANAGER us Wicho Gomez MD CHEMISTRY ORDERABLES Final Re sult Performing Organization Address [facility] Phone Number INTERFACE SYSTEM Refer to clinic/hospital department * PHOSPHORUS (01/29/2006 4:33 AM WATER RESOURCE MANAGER) PHOSPHORUS 3.4 2.5 - 4.5 mg/dL INTERFACE SYSTEM 01/29/2006 4:33 AM WATER RESOURCE MANAGER us Wicho Gomez MD CHEMISTRY ORDERABLES Final Re sult Performing Organization Address [facility] Phone Number INTERFACE SYSTEM Refer to clinic/hospital department * MAGNESIUM LEVEL (01/29/2006 4:33 AM WATER RESOURCE MANAGER) MAGNESIUM 2.1 1.5 - 2.5 mg/dL INTERFACE SYSTEM 01/29/2006 4:33 AM WATER RESOURCE MANAGER us Wicho Gomez MD CHEMISTRY ORDERABLES Final Re sult Performing Organization Address [facility] Phone Number INTERFACE SYSTEM Refer to clinic/hospital department * (ABNORMAL) BASIC METABOLIC PANEL (01/29/2006 4:33 AM WATER RESOURCE MANAGER) GLUCOSE 186(H) 65 - 99 mg/dL INTERFACE SYSTEM CREATININE 7.1(AA) 0.5 - 1.3 mg/dL INTERFACE SYSTEM Comment:dialysis pt CALCIUM 8.6 8.4 - 10.2 mg/dL INTERFACE SYSTEM BUN 100(AA) 6 - 20 mg/dL INTERFACE SYSTEM Comment:Persistent abnormal result SODIUM 138 135 - 145 mmol/L INTERFACE SYSTEM POTASSIUM 3.5 3.5 - 4.9 mmol/L INTERFACE SYSTEM CHLORIDE 101 96 - 108 mmol/L INTERFACE SYSTEM CO2 24 22 - 30 mmol/L INTERFACE SYSTEM 01/29/2006 4:33 AM WATER RESOURCE MANAGER us Wicho Gomez MD CHEMISTRY ORDERABLES Final Re sult Performing Organization Address [facility] Phone Number INTERFACE SYSTEM Refer to clinic/hospital department * (ABNORMAL) POC GLUCOSE (01/29/2006 12:57 AM WATER RESOURCE MANAGER) GLUCOSE POC 148(H) 65 - 109 mg/dL INTERFACE SYSTEM 01/29/2006 12:5 7 AM WATER RESOURCE MANAGER us Wicho Gomez MD POINT OF CARE TESTING Final R dallas Performing Organization Address [facility] Phone Number INTERFACE SYSTEM Refer to clinic/hospital department * (ABNORMAL) POC GLUCOSE (01/28/2006 4:48 PM WATER RESOURCE MANAGER) GLUCOSE POC 124(H) 65 - 109 mg/dL INTERFACE SYSTEM 01/28/2006 4:48 PM WATER RESOURCE MANAGER us Wicho Gomez MD POINT OF CARE TESTING Final R dallas Performing Organization Address [facility] de Phone Number INTERFACE SYSTEM Refer to clinic/hospital department * (ABNORMAL) POC GLUCOSE (01/28/2006 12:22 PM WATER RESOURCE MANAGER) GLUCOSE POC 123(H) 65 - 109 mg/dL INTERFACE SYSTEM 01/28/2006 12:2 2 PM WATER RESOURCE MANAGER us Wicho Gomez MD POINT OF CARE TESTING Final R esult Performing Organization Address [facility] de Phone Number INTERFACE SYSTEM Refer to clinic/hospital department * (ABNORMAL) POC GLUCOSE (01/28/2006 5:52 AM WATER RESOURCE MANAGER) GLUCOSE POC 152(H) 65 - 109 mg/dL INTERFACE SYSTEM 01/28/2006 5:52 AM WATER RESOURCE MANAGER us Wicho Gomez MD POINT OF CARE TESTING Final R esult Performing Organization Address [facility] de Phone Number INTERFACE SYSTEM Refer to clinic/hospital department * (ABNORMAL) CBC WITH DIFFERENTIAL (01/28/2006 3:20 AM WATER RESOURCE MANAGER) NEUTROPHILS 76(H) 45 - 70 % INTERFAC E SYSTEM LYMPHOCYTES 13(L) 16 - 45 % INTERFAC E SYSTEM MONOCYTES 11 3 - 13 % INTERFACE SYSTEM EOSINOPHILS 1 0 - 7 % INTERFAC E SYSTEM BASOPHILS 0 0 - 2 % INTERFACE SYSTEM NEUTROPHIL ABSOLUTE 5.78 1.90 - 7.00 K/uL INTERFACE SYSTEM LYMPHOCYTE ABSOLUTE 0.97 0.70 - 4.50 K/uL INTERFACE SYSTEM MONOCYTE ABSOLUTE 0.81 0.10 - 1.30 K/uL INTERFACE SYSTEM EOSINOPHIL ABSOLUTE 0.04 0.00 - 0.70 K/uL INTERFACE SYSTEM BASOPHILS ABSOLUTE 0.02 0.00 - 0.20 K/uL INTERFACE SYSTEM 01/28/2006 3:20 AM WATER RESOURCE MANAGER us Harshad Heller MD HEMATOLOGY ORDERABLES Final Res ult Performing Organization Address [facility] de Phone Number INTERFACE SYSTEM Refer to clinic/hospital department * (ABNORMAL) CBC WITH DIFFERENTIAL (01/28/2006 3:20 AM WATER RESOURCE MANAGER) WBC 7.6 4.0 - 9.8 K/uL INTERFACE SYSTEM RBC 3.00(L) 4.50 - 5.40 M/uL INTERFACE SYSTEM HEMOGLOBIN 9.1(L) 13.6 - 16.5 g/dL INTERFACE SYSTEM HEMATOCRIT 27.9(L) 40.0 - 48.0 % INTERFACE SYSTEM MCV 93.0 82.0 - 99.0 fL INTERFACE SYSTEM MCH 30.3 27.2 - 32.6 pg INTERFACE SYSTEM MCHC 32.6 31.5 - 35.5 % INTERFACE SYSTEM RDW 17.0(H) 11.5 - 14.5 % INTERFACE SYSTEM RDW-STDEV 58.0(H) 37.1 - 48.7 fL INTERFACE SYSTEM PLATELETS 196 140 - 350 K/uL INTERFACE SYSTEM MPV 9.6 9.3 - 12.4 fL INTERFACE SYSTEM 01/28/2006 3:20 AM WATER RESOURCE MANAGER Harshad Heller MD HEMATOLOGY ORDERABLES Final Res ult Performing Organization Address [facility] Phone Number INTERFACE SYSTEM Refer to clinic/hospital department * PHOSPHORUS (01/28/2006 3:20 AM WATER RESOURCE MANAGER) PHOSPHORUS 3.9 2.5 - 4.5 mg/dL INTERFACE SYSTEM 01/28/2006 3:20 AM WATER RESOURCE MANAGER Harshad Heller MD CHEMISTRY ORDERABLES Final Resu lt Performing Organization Address [facility] Phone Number INTERFACE SYSTEM Refer to clinic/hospital department * MAGNESIUM LEVEL (01/28/2006 3:20 AM WATER RESOURCE MANAGER) MAGNESIUM 2.1 1.5 - 2.5 mg/dL INTERFACE SYSTEM 01/28/2006 3:20 AM WATER RESOURCE MANAGER Harshad Heller MD CHEMISTRY ORDERABLES Final Resu lt Performing Organization Address [facility] Phone Number INTERFACE SYSTEM Refer to clinic/hospital department * CALCIUM IONIZED (01/28/2006 3:20 AM WATER RESOURCE MANAGER) CALCIUM IONIZED 4.80 4.76 - 5.16 mg/dL INTERFACE SYSTEM 01/28/2006 3:20 AM WATER RESOURCE MANAGER us Harshad Heller MD CHEMISTRY ORDERABLES Final Resu lt Performing Organization Address [facility] Phone Number INTERFACE SYSTEM Refer to clinic/hospital department * (ABNORMAL) BASIC METABOLIC PANEL (01/28/2006 3:20 AM WATER RESOURCE MANAGER) GLUCOSE 151(H) 65 - 99 mg/dL INTERFACE SYSTEM CREATININE 6.4(H) 0.5 - 1.3 mg/dL INTERFACE SYSTEM CALCIUM 8.5 8.4 - 10.2 mg/dL INTERFACE SYSTEM BUN 88(H) 6 - 20 mg/dL INTERFACE SYSTEM SODIUM 139 135 - 145 mmol/L INTERFACE SYSTEM POTASSIUM 3.8 3.5 - 4.9 mmol/L INTERFACE SYSTEM CHLORIDE 103 96 - 108 mmol/L INTERFACE SYSTEM CO2 26 22 - 30 mmol/L INTERFACE SYSTEM 01/28/2006 3:20 AM WATER RESOURCE MANAGER Harshad Heller MD CHEMISTRY ORDERABLES Final Resu lt Performing Organization Address [facility] Phone Number INTERFACE SYSTEM Refer to clinic/hospital department * (ABNORMAL) POC GLUCOSE (01/28/2006 12:19 AM WATER RESOURCE MANAGER) GLUCOSE POC 135(H) 65 - 109 mg/dL INTERFACE SYSTEM 01/28/2006 12:1 9 AM WATER RESOURCE MANAGER Wicho Gomez MD POINT OF CARE TESTING Final R esult Performing Organization Address [facility] Phone Number INTERFACE SYSTEM Refer to clinic/hospital department * (ABNORMAL) POC GLUCOSE (01/27/2006 5:32 PM WATER RESOURCE MANAGER) GLUCOSE POC 209(H) 65 - 109 mg/dL INTERFACE SYSTEM 01/27/2006 5:32 PM WATER RESOURCE MANAGER Wicho Gomez MD POINT OF CARE TESTING Final R esult Performing Organization Address [facility] de Phone Number INTERFACE SYSTEM Refer to clinic/hospital department * (ABNORMAL) POC GLUCOSE (01/27/2006 12:46 PM WATER RESOURCE MANAGER) GLUCOSE POC 201(H) 65 - 109 mg/dL INTERFACE SYSTEM 01/27/2006 12:4 6 PM WATER RESOURCE MANAGER us Wicho Gomez MD POINT OF CARE TESTING Final R esult Performing Organization Address [facility] de Phone Number INTERFACE SYSTEM Refer to clinic/hospital department * (ABNORMAL) CBC WITH DIFFERENTIAL (01/27/2006 4:15 AM WATER RESOURCE MANAGER) NEUTROPHILS 80(H) 45 - 70 % INTERFAC E SYSTEM LYMPHOCYTES 11(L) 16 - 45 % INTERFAC E SYSTEM MONOCYTES 8 3 - 13 % INTERFACE SYSTEM EOSINOPHILS 1 0 - 7 % INTERFAC E SYSTEM BASOPHILS 0 0 - 2 % INTERFACE SYSTEM NEUTROPHIL ABSOLUTE 6.62 1.90 - 7.00 K/uL INTERFACE SYSTEM LYMPHOCYTE ABSOLUTE 0.95 0.70 - 4.50 K/uL INTERFACE SYSTEM MONOCYTE ABSOLUTE 0.66 0.10 - 1.30 K/uL INTERFACE SYSTEM EOSINOPHIL ABSOLUTE 0.04 0.00 - 0.70 K/uL INTERFACE SYSTEM BASOPHILS ABSOLUTE 0.03 0.00 - 0.20 K/uL INTERFACE SYSTEM 01/27/2006 4:15 AM WATER RESOURCE MANAGER Harshad Heller MD HEMATOLOGY ORDERABLES Final Res ult Performing Organization Address [facility] de Phone Number INTERFACE SYSTEM Refer to clinic/hospital department * (ABNORMAL) CBC WITH DIFFERENTIAL (01/27/2006 4:15 AM WATER RESOURCE MANAGER) WBC 8.3 4.0 - 9.8 K/uL INTERFACE SYSTEM RBC 3.32(L) 4.50 - 5.40 M/uL INTERFACE SYSTEM HEMOGLOBIN 9.7(L) 13.6 - 16.5 g/dL INTERFACE SYSTEM HEMATOCRIT 31.1(L) 40.0 - 48.0 % INTERFACE SYSTEM MCV 93.7 82.0 - 99.0 fL INTERFACE SYSTEM MCH 29.2 27.2 - 32.6 pg INTERFACE SYSTEM MCHC 31.2(L) 31.5 - 35.5 % INTERFACE SYSTEM RDW 17.0(H) 11.5 - 14.5 % INTERFACE SYSTEM RDW-STDEV 58.5(H) 37.1 - 48.7 fL INTERFACE SYSTEM PLATELETS 225 140 - 350 K/uL INTERFACE SYSTEM MPV 9.9 9.3 - 12.4 fL INTERFACE SYSTEM 01/27/2006 4:15 AM WATER RESOURCE MANAGER Harshad Heller MD HEMATOLOGY ORDERABLES Final Res ult Performing Organization Address [facility] Phone Number INTERFACE SYSTEM Refer to clinic/hospital department * PHOSPHORUS (01/27/2006 4:15 AM WATER RESOURCE MANAGER) PHOSPHORUS 4.0 2.5 - 4.5 mg/dL INTERFACE SYSTEM 01/27/2006 4:15 AM WATER RESOURCE MANAGER Harshad Heller MD CHEMISTRY ORDERABLES Final Resu lt Performing Organization Address [facility] Phone Number INTERFACE SYSTEM Refer to clinic/hospital department * MAGNESIUM LEVEL (01/27/2006 4:15 AM WATER RESOURCE MANAGER) MAGNESIUM 2.1 1.5 - 2.5 mg/dL INTERFACE SYSTEM 01/27/2006 4:15 AM WATER RESOURCE MANAGER Harshad Heller MD CHEMISTRY ORDERABLES Final Resu lt Performing Organization Address [facility] Phone Number INTERFACE SYSTEM Refer to clinic/hospital department * CALCIUM IONIZED (01/27/2006 4:15 AM WATER RESOURCE MANAGER) CALCIUM IONIZED 4.88 4.76 - 5.16 mg/dL INTERFACE SYSTEM 01/27/2006 4:15 AM WATER RESOURCE MANAGER Harshad Heller MD CHEMISTRY ORDERABLES Final Resu lt Performing Organization Address [facility] Phone Number INTERFACE SYSTEM Refer to clinic/hospital department * (ABNORMAL) BASIC METABOLIC PANEL (01/27/2006 4:15 AM WATER RESOURCE MANAGER) GLUCOSE 164(H) 65 - 99 mg/dL INTERFACE SYSTEM CREATININE 5.6(H) 0.5 - 1.3 mg/dL INTERFACE SYSTEM Comment:Significant change f rom prior result, correlate clinically and redraw if necessary. CALCIUM 8.5 8.4 - 10.2 mg/dL INTERFACE SYSTEM BUN 68(H) 6 - 20 mg/dL INTERFACE SYSTEM SODIUM 138 135 - 145 mmol/L INTERFACE SYSTEM POTASSIUM 3.4(L) 3.5 - 4.9 mmol/L INTERFACE SYSTEM CHLORIDE 101 96 - 108 mmol/L INTERFACE SYSTEM CO2 26 22 - 30 mmol/L INTERFACE SYSTEM 01/27/2006 4:15 AM WATER RESOURCE MANAGER us Harshad Heller MD CHEMISTRY ORDERABLES Final Resu lt Performing Organization Address [place] Co de Phone Number INTERFACE SYSTEM Refer to clinic/hospital department * (ABNORMAL) POC GLUCOSE (01/27/2006 12:01 AM WATER RESOURCE MANAGER) COMMENT, GLU POC Notified RN INTERFACE SYSTEM GLUCOSE POC 132(H) 65 - 109 mg/dL INTERFACE SYSTEM 01/27/2006 12:0 1 AM WATER RESOURCE MANAGER us Wicho Gomez MD POINT OF CARE TESTING Final R esult Performing Organization Address [facility] Phone Number INTERFACE SYSTEM Refer to clinic/hospital department * (ABNORMAL) POC GLUCOSE (01/26/2006 6:01 PM WATER RESOURCE MANAGER) GLUCOSE POC 119(H) 65 - 109 mg/dL INTERFACE SYSTEM 01/26/2006 6:01 PM WATER RESOURCE MANAGER us Wicho Gomez MD POINT OF CARE TESTING Final R esult Performing Organization Address [facility] Phone Number INTERFACE SYSTEM Refer to clinic/hospital department * POC GLUCOSE (01/26/2006 12:40 PM WATER RESOURCE MANAGER) GLUCOSE POC 108 65 - 109 mg/dL INTERFACE SYSTEM 01/26/2006 12:4 0 PM WATER RESOURCE MANAGER us Wicho Gomez MD POINT OF CARE TESTING Final R esult Performing Organization Address [place]/[facility] de Phone Number INTERFACE SYSTEM Refer to clinic/hospital department * POC GLUCOSE (01/26/2006 5:53 AM WATER RESOURCE MANAGER) GLUCOSE POC 97 65 - 109 mg/dL INTERFACE SYSTEM 01/26/2006 5:53 AM WATER RESOURCE MANAGER us Wicho Gomez MD POINT OF CARE TESTING Final R [facility] Performing Organization Address [facility] de Phone Number INTERFACE SYSTEM Refer to clinic/hospital department * (ABNORMAL) CBC WITH DIFFERENTIAL (01/26/2006 3:15 AM WATER RESOURCE MANAGER) Pathologist [facility] NEUTROPHILS 83(H) 45 - 70 % INTERFAC E SYSTEM LYMPHOCYTES 9(L) 16 - 45 % INTERFAC E SYSTEM MONOCYTES 8 3 - 13 % INTERFACE SYSTEM EOSINOPHILS 0 0 - 7 % INTERFAC E SYSTEM BASOPHILS 0 0 - 2 % INTERFACE SYSTEM NEUTROPHIL ABSOLUTE 8.33(H) 1.90 - 7.00 K/uL INTERFACE SYSTEM LYMPHOCYTE ABSOLUTE 0.90 0.70 - 4.50 K/uL INTERFACE SYSTEM MONOCYTE ABSOLUTE 0.79 0.10 - 1.30 K/uL INTERFACE SYSTEM EOSINOPHIL ABSOLUTE 0.01 0.00 - 0.70 K/uL INTERFACE SYSTEM BASOPHILS ABSOLUTE 0.02 0.00 - 0.20 K/uL INTERFACE SYSTEM 01/26/2006 3:15 AM WATER RESOURCE MANAGER Wicho Gomez MD HEMATOLOGY ORDERABLES Final R esult Performing Organization Address [facility] de Phone Number INTERFACE SYSTEM Refer to clinic/hospital department * (ABNORMAL) CBC WITH DIFFERENTIAL (01/26/2006 3:15 AM WATER RESOURCE MANAGER) Pathologist [facility] WBC 10.1(H) 4.0 - 9.8 K/uL INTERFACE SYSTEM RBC 3.31(L) 4.50 - 5.40 M/uL INTERFACE SYSTEM HEMOGLOBIN 9.7(L) 13.6 - 16.5 g/dL INTERFACE SYSTEM HEMATOCRIT 30.9(L) 40.0 - 48.0 % INTERFACE SYSTEM MCV 93.4 82.0 - 99.0 fL INTERFACE SYSTEM MCH 29.3 27.2 - 32.6 pg INTERFACE SYSTEM MCHC 31.4(L) 31.5 - 35.5 % INTERFACE SYSTEM RDW 17.1(H) 11.5 - 14.5 % INTERFACE SYSTEM RDW-STDEV 59.2(H) 37.1 - 48.7 fL INTERFACE SYSTEM PLATELETS 206 140 - 350 K/uL INTERFACE SYSTEM MPV 10.0 9.3 - 12.4 fL INTERFACE SYSTEM 01/26/2006 3:15 AM WATER RESOURCE MANAGER us Wicho Gomez MD HEMATOLOGY ORDERABLES Final R esult Performing Organization Address [facility] Phone Number INTERFACE SYSTEM Refer to clinic/hospital department * PHOSPHORUS (01/26/2006 3:15 AM WATER RESOURCE MANAGER) PHOSPHORUS 3.1 2.5 - 4.5 mg/dL INTERFACE SYSTEM 01/26/2006 3:15 AM WATER RESOURCE MANAGER us Wicho Gomez MD CHEMISTRY ORDERABLES Final Re sult Performing Organization Address [facility] Phone Number INTERFACE SYSTEM Refer to clinic/hospital department * MAGNESIUM LEVEL (01/26/2006 3:15 AM WATER RESOURCE MANAGER) MAGNESIUM 1.9 1.5 - 2.5 mg/dL INTERFACE SYSTEM 01/26/2006 3:15 AM WATER RESOURCE MANAGER us Wicho Gomez MD CHEMISTRY ORDERABLES Final Re sult Performing Organization Address [facility] Phone Number INTERFACE SYSTEM Refer to clinic/hospital department * CALCIUM IONIZED (01/26/2006 3:15 AM WATER RESOURCE MANAGER) CALCIUM IONIZED 5.04 4.76 - 5.16 mg/dL INTERFACE SYSTEM 01/26/2006 3:15 AM WATER RESOURCE MANAGER us Wicho Gomez MD CHEMISTRY ORDERABLES Final Re sult Performing Organization Address [facility] Phone Number INTERFACE SYSTEM Refer to clinic/hospital department * (ABNORMAL) BASIC METABOLIC PANEL (01/26/2006 3:15 AM WATER RESOURCE MANAGER) GLUCOSE 84 65 - 99 mg/dL INTERFACE SYSTEM CREATININE 4.4(H) 0.5 - 1.3 mg/dL INTERFACE SYSTEM CALCIUM 9.0 8.4 - 10.2 mg/dL INTERFACE SYSTEM BUN 53(H) 6 - 20 mg/dL INTERFACE SYSTEM SODIUM 143 135 - 145 mmol/L INTERFACE SYSTEM POTASSIUM 3.4(L) 3.5 - 4.9 mmol/L INTERFACE SYSTEM CHLORIDE 103 96 - 108 mmol/L INTERFACE SYSTEM CO2 30 22 - 30 mmol/L INTERFACE SYSTEM 01/26/2006 3:15 AM WATER RESOURCE MANAGER Result Roxie Gomez MD CHEMISTRY ORDERABLES Final Re sult Performing Organization Address [facility] Phone Number INTERFACE SYSTEM Refer to clinic/hospital department * (ABNORMAL) POC GLUCOSE (01/25/2006 11:44 PM WATER RESOURCE MANAGER) GLUCOSE POC 152(H) 65 - 109 mg/dL INTERFACE SYSTEM 01/25/2006 11:4 4 PM WATER RESOURCE MANAGER Result Roxie Gomez MD POINT OF CARE TESTING Final R krystalchantelle Performing Organization Address [facility] Phone Number INTERFACE SYSTEM Refer to clinic/hospital department * (ABNORMAL) POC GLUCOSE (01/25/2006 5:42 PM WATER RESOURCE MANAGER) GLUCOSE POC 198(H) 65 - 109 mg/dL INTERFACE SYSTEM 01/25/2006 5:42 PM WATER RESOURCE MANAGER Result Roxie Gomez MD POINT OF CARE TESTING Final R krystalchantelle Performing Organization Address [facility] Phone Number INTERFACE SYSTEM Refer to clinic/hospital department * (ABNORMAL) POC GLUCOSE (01/25/2006 12:30 PM WATER RESOURCE MANAGER) GLUCOSE POC 245(H) 65 - 109 mg/dL INTERFACE SYSTEM 01/25/2006 12:3 0 PM WATER RESOURCE MANAGER Result Roxie Gomez MD POINT OF CARE TESTING Final R krystalult Performing Organization Address [facility] de Phone Number INTERFACE SYSTEM Refer to clinic/hospital department * (ABNORMAL) POC GLUCOSE (01/25/2006 5:25 AM WATER RESOURCE MANAGER) GLUCOSE POC 172(H) 65 - 109 mg/dL INTERFACE SYSTEM 01/25/2006 5:25 AM WATER RESOURCE MANAGER Wicho Gomez MD POINT OF CARE TESTING Final R [facility] Performing Organization Address [facility] de Phone Number INTERFACE SYSTEM Refer to clinic/hospital department * (ABNORMAL) CBC WITH DIFFERENTIAL (01/25/2006 3:35 AM WATER RESOURCE MANAGER) NEUTROPHILS 83(H) 45 - 70 % INTERFAC E SYSTEM LYMPHOCYTES 10(L) 16 - 45 % INTERFAC E SYSTEM MONOCYTES 7 3 - 13 % INTERFACE SYSTEM EOSINOPHILS 0 0 - 7 % INTERFAC E SYSTEM BASOPHILS 0 0 - 2 % INTERFACE SYSTEM NEUTROPHIL ABSOLUTE 7.41(H) 1.90 - 7.00 K/uL INTERFACE SYSTEM LYMPHOCYTE ABSOLUTE 0.88 0.70 - 4.50 K/uL INTERFACE SYSTEM MONOCYTE ABSOLUTE 0.59 0.10 - 1.30 K/uL INTERFACE SYSTEM EOSINOPHIL ABSOLUTE 0.02 0.00 - 0.70 K/uL INTERFACE SYSTEM BASOPHILS ABSOLUTE 0.03 0.00 - 0.20 K/uL INTERFACE SYSTEM 01/25/2006 3:35 AM WATER RESOURCE MANAGER Wicho Gomez MD HEMATOLOGY ORDERABLES Final R esult Performing Organization Address [facility] de Phone Number INTERFACE SYSTEM Refer to clinic/hospital department * (ABNORMAL) CBC WITH DIFFERENTIAL (01/25/2006 3:35 AM WATER RESOURCE MANAGER) Pathologist [facility] WBC 8.9 4.0 - 9.8 K/uL INTERFACE SYSTEM RBC 3.27(L) 4.50 - 5.40 M/uL INTERFACE SYSTEM HEMOGLOBIN 9.9(L) 13.6 - 16.5 g/dL INTERFACE SYSTEM HEMATOCRIT 30.5(L) 40.0 - 48.0 % INTERFACE SYSTEM MCV 93.3 82.0 - 99.0 fL INTERFACE SYSTEM MCH 30.3 27.2 - 32.6 pg INTERFACE SYSTEM MCHC 32.5 31.5 - 35.5 % INTERFACE SYSTEM RDW 17.5(H) 11.5 - 14.5 % INTERFACE SYSTEM RDW-STDEV 59.5(H) 37.1 - 48.7 fL INTERFACE SYSTEM PLATELETS 191 140 - 350 K/uL INTERFACE SYSTEM MPV 9.6 9.3 - 12.4 fL INTERFACE SYSTEM 01/25/2006 3:35 AM WATER RESOURCE MANAGER us Wicho Gomez MD HEMATOLOGY ORDERABLES Final R esult Performing Organization Address [facility] Phone Number INTERFACE SYSTEM Refer to clinic/hospital department * PHOSPHORUS (01/25/2006 3:35 AM WATER RESOURCE MANAGER) PHOSPHORUS 3.6 2.5 - 4.5 mg/dL INTERFACE SYSTEM 01/25/2006 3:35 AM WATER RESOURCE MANAGER us Wicho Gomez MD CHEMISTRY ORDERABLES Final Re sult Performing Organization Address [facility] Phone Number INTERFACE SYSTEM Refer to clinic/hospital department * MAGNESIUM LEVEL (01/25/2006 3:35 AM WATER RESOURCE MANAGER) MAGNESIUM 2.1 1.5 - 2.5 mg/dL INTERFACE SYSTEM 01/25/2006 3:35 AM WATER RESOURCE MANAGER Wicho Gomez MD CHEMISTRY ORDERABLES Final Re sult Performing Organization Address [facility] Phone Number INTERFACE SYSTEM Refer to clinic/hospital department * CALCIUM IONIZED (01/25/2006 3:35 AM WATER RESOURCE MANAGER) CALCIUM IONIZED 5.08 4.76 - 5.16 mg/dL INTERFACE SYSTEM 01/25/2006 3:35 AM WATER RESOURCE MANAGER Wicho Gomez MD CHEMISTRY ORDERABLES Final Re sult Performing Organization Address [facility] Phone Number INTERFACE SYSTEM Refer to clinic/hospital department * (ABNORMAL) BASIC METABOLIC PANEL (01/25/2006 3:35 AM WATER RESOURCE MANAGER) GLUCOSE 173(H) 65 - 99 mg/dL INTERFACE SYSTEM CREATININE 5.7(H) 0.5 - 1.3 mg/dL INTERFACE SYSTEM CALCIUM 9.1 8.4 - 10.2 mg/dL INTERFACE SYSTEM BUN 79(H) 6 - 20 mg/dL INTERFACE SYSTEM SODIUM 140 135 - 145 mmol/L INTERFACE SYSTEM POTASSIUM 4.0 3.5 - 4.9 mmol/L INTERFACE SYSTEM CHLORIDE 103 96 - 108 mmol/L INTERFACE SYSTEM CO2 28 22 - 30 mmol/L INTERFACE SYSTEM 01/25/2006 3:35 AM WATER RESOURCE MANAGER us Wicho Gomez MD CHEMISTRY ORDERABLES Final Re sult Performing Organization Address [facility] Phone Number INTERFACE SYSTEM Refer to clinic/hospital department * (ABNORMAL) POC GLUCOSE (01/25/2006 12:05 AM WATER RESOURCE MANAGER) GLUCOSE POC 186(H) 65 - 109 mg/dL INTERFACE SYSTEM 01/25/2006 12:0 5 AM WATER RESOURCE MANAGER us Wicho Gomez MD POINT OF CARE TESTING Final R krystalchantelle Performing Organization Address [facility] Phone Number INTERFACE SYSTEM Refer to clinic/hospital department * (ABNORMAL) POC GLUCOSE (01/24/2006 6:35 PM WATER RESOURCE MANAGER) GLUCOSE POC 202(H) 65 - 109 mg/dL INTERFACE SYSTEM 01/24/2006 6:35 PM WATER RESOURCE MANAGER Result Roxie Gomez MD POINT OF CARE TESTING Final R [place] Performing Organization Address [facility] Phone Number INTERFACE SYSTEM Refer to clinic/hospital department * (ABNORMAL) POC GLUCOSE (01/24/2006 12:18 PM WATER RESOURCE MANAGER) GLUCOSE POC 192(H) 65 - 109 mg/dL INTERFACE SYSTEM 01/24/2006 12:1 8 PM WATER RESOURCE MANAGER us Wicho Gomez MD POINT OF CARE TESTING Final R esult Performing Organization Address [facility] Phone Number INTERFACE SYSTEM Refer to clinic/hospital department * (ABNORMAL) POC GLUCOSE (01/24/2006 5:50 AM WATER RESOURCE MANAGER) GLUCOSE POC 248(H) 65 - 109 mg/dL INTERFACE SYSTEM 01/24/2006 5:50 AM WATER RESOURCE MANAGER us Wicho Gomez MD POINT OF CARE TESTING Final R esult Performing Organization Address City/[facility]/ZIP Co de Phone Number INTERFACE SYSTEM Refer to clinic/hospital department * (ABNORMAL) CBC WITH DIFFERENTIAL (01/24/2006 3:40 AM WATER RESOURCE MANAGER) Pathologist [facility] NEUTROPHILS 83(H) 45 - 70 % INTERFAC E SYSTEM LYMPHOCYTES 10(L) 16 - 45 % INTERFAC E SYSTEM MONOCYTES 7 3 - 13 % INTERFACE SYSTEM EOSINOPHILS 0 0 - 7 % INTERFAC E SYSTEM BASOPHILS 0 0 - 2 % INTERFACE SYSTEM NEUTROPHIL ABSOLUTE 8.57(H) 1.90 - 7.00 K/uL INTERFACE SYSTEM LYMPHOCYTE ABSOLUTE 0.98 0.70 - 4.50 K/uL INTERFACE SYSTEM MONOCYTE ABSOLUTE 0.76 0.10 - 1.30 K/uL INTERFACE SYSTEM EOSINOPHIL ABSOLUTE 0.00 0.00 - 0.70 K/uL INTERFACE SYSTEM BASOPHILS ABSOLUTE 0.02 0.00 - 0.20 K/uL INTERFACE SYSTEM 01/24/2006 3:40 AM WATER RESOURCE MANAGER us Harshad Heller MD HEMATOLOGY ORDERABLES Final Res ult Performing Organization Address City/[facility] de Phone Number INTERFACE SYSTEM Refer to clinic/hospital department * (ABNORMAL) CBC WITH DIFFERENTIAL (01/24/2006 3:40 AM WATER RESOURCE MANAGER) Pathologist [facility] WBC 10.3(H) 4.0 - 9.8 K/uL INTERFACE SYSTEM RBC 3.38(L) 4.50 - 5.40 M/uL INTERFACE SYSTEM HEMOGLOBIN 10.1(L) 13.6 - 16.5 g/dL INTERFACE SYSTEM HEMATOCRIT 31.7(L) 40.0 - 48.0 % INTERFACE SYSTEM MCV 93.8 82.0 - 99.0 fL INTERFACE SYSTEM MCH 29.9 27.2 - 32.6 pg INTERFACE SYSTEM MCHC 31.9 31.5 - 35.5 % INTERFACE SYSTEM RDW 17.6(H) 11.5 - 14.5 % INTERFACE SYSTEM RDW-STDEV 59.5(H) 37.1 - 48.7 fL INTERFACE SYSTEM PLATELETS 216 140 - 350 K/uL INTERFACE SYSTEM MPV 9.9 9.3 - 12.4 fL INTERFACE SYSTEM 01/24/2006 3:40 AM WATER RESOURCE MANAGER Harshad Heller MD HEMATOLOGY ORDERABLES Final Res ult Performing Organization Address [facility] Phone Number INTERFACE SYSTEM Refer to clinic/hospital department * CALCIUM IONIZED (01/24/2006 3:40 AM WATER RESOURCE MANAGER) CALCIUM IONIZED 5.04 4.76 - 5.16 mg/dL INTERFACE SYSTEM 01/24/2006 3:40 AM WATER RESOURCE MANAGER Harshad Heller MD CHEMISTRY ORDERABLES Final Resu lt Performing Organization Address [facility] Phone Number INTERFACE SYSTEM Refer to clinic/hospital department * PHOSPHORUS (01/24/2006 3:40 AM WATER RESOURCE MANAGER) PHOSPHORUS 3.8 2.5 - 4.5 mg/dL INTERFACE SYSTEM 01/24/2006 3:40 AM WATER RESOURCE MANAGER Harshad Heller MD CHEMISTRY ORDERABLES Final Resu lt Performing Organization Address [facility] Phone Number INTERFACE SYSTEM Refer to clinic/hospital department * MAGNESIUM LEVEL (01/24/2006 3:40 AM WATER RESOURCE MANAGER) MAGNESIUM 2.1 1.5 - 2.5 mg/dL INTERFACE SYSTEM 01/24/2006 3:40 AM WATER RESOURCE MANAGER Harshad Heller MD CHEMISTRY ORDERABLES Final Resu lt Performing Organization Address [facility] de Phone Number INTERFACE SYSTEM Refer to clinic/hospital department * (ABNORMAL) BASIC METABOLIC PANEL (01/24/2006 3:40 AM WATER RESOURCE MANAGER) GLUCOSE 186(H) 65 - 99 mg/dL INTERFACE SYSTEM CREATININE 5.0(H) 0.5 - 1.3 mg/dL INTERFACE SYSTEM Comment:Significant change f rom prior result, correlate clinically and redraw if necessary. CALCIUM 9.1 8.4 - 10.2 mg/dL INTERFACE SYSTEM BUN 63(H) 6 - 20 mg/dL INTERFACE SYSTEM SODIUM 143 135 - 145 mmol/L INTERFACE SYSTEM POTASSIUM 4.3 3.5 - 4.9 mmol/L INTERFACE SYSTEM CHLORIDE 104 96 - 108 mmol/L INTERFACE SYSTEM CO2 31(H) 22 - 30 mmol/L INTERFACE SYSTEM 01/24/2006 3:40 AM WATER RESOURCE MANAGER Harshad Heller MD CHEMISTRY ORDERABLES Final Resu lt Performing Organization Address City/[facility] Co de Phone Number INTERFACE SYSTEM Refer to clinic/hospital department * (ABNORMAL) POC GLUCOSE (01/23/2006 11:29 PM WATER RESOURCE MANAGER) COMMENT, GLU POC Notified RN INTERFACE SYSTEM GLUCOSE POC 150(H) 65 - 109 mg/dL INTERFACE SYSTEM 01/23/2006 11:2 9 PM WATER RESOURCE MANAGER Wicho Gomez MD POINT OF CARE TESTING Final R esult Performing Organization Address [facility] Phone Number INTERFACE SYSTEM Refer to clinic/hospital department * (ABNORMAL) POC GLUCOSE (01/23/2006 5:20 PM WATER RESOURCE MANAGER) GLUCOSE POC 185(H) 65 - 109 mg/dL INTERFACE SYSTEM 01/23/2006 5:20 PM WATER RESOURCE MANAGER Wicho Gomez MD POINT OF CARE TESTING Final R esult Performing Organization Address [facility] de Phone Number INTERFACE SYSTEM Refer to clinic/hospital department * (ABNORMAL) POC GLUCOSE (01/23/2006 4:35 PM WATER RESOURCE MANAGER) GLUCOSE POC 169(H) 65 - 109 mg/dL INTERFACE SYSTEM 01/23/2006 4:35 PM WATER RESOURCE MANAGER us Wicho Gomez MD POINT OF CARE TESTING Final R esult Performing Organization Address City/[facility] Co de Phone Number INTERFACE SYSTEM Refer to clinic/hospital department * POC GLUCOSE (01/23/2006 1:02 PM WATER RESOURCE MANAGER) GLUCOSE POC 96 65 - 109 mg/dL INTERFACE SYSTEM 01/23/2006 1:02 PM WATER RESOURCE MANAGER us Wicho Gomez MD POINT OF CARE TESTING Final R esult Performing Organization Address City/[facility]/ZIP Co de Phone Number INTERFACE SYSTEM Refer to clinic/hospital department * (ABNORMAL) CBC WITH DIFFERENTIAL (01/23/2006 3:38 AM WATER RESOURCE MANAGER) NEUTROPHILS 83(H) 45 - 70 % INTERFAC E SYSTEM LYMPHOCYTES 9(L) 16 - 45 % INTERFAC E SYSTEM MONOCYTES 8 3 - 13 % INTERFACE SYSTEM EOSINOPHILS 0 0 - 7 % INTERFAC E SYSTEM BASOPHILS 0 0 - 2 % INTERFACE SYSTEM NEUTROPHIL ABSOLUTE 8.96(H) 1.90 - 7.00 K/uL INTERFACE SYSTEM LYMPHOCYTE ABSOLUTE 1.00 0.70 - 4.50 K/uL INTERFACE SYSTEM MONOCYTE ABSOLUTE 0.81 0.10 - 1.30 K/uL INTERFACE SYSTEM EOSINOPHIL ABSOLUTE 0.00 0.00 - 0.70 K/uL INTERFACE SYSTEM BASOPHILS ABSOLUTE 0.03 0.00 - 0.20 K/uL INTERFACE SYSTEM 01/23/2006 3:38 AM WATER RESOURCE MANAGER us Harshad Heller MD HEMATOLOGY ORDERABLES Final Res ult Performing Organization Address City/[facility] Co de Phone Number INTERFACE SYSTEM Refer to clinic/hospital department * (ABNORMAL) CBC WITH DIFFERENTIAL (01/23/2006 3:38 AM WATER RESOURCE MANAGER) WBC 10.8(H) 4.0 - 9.8 K/uL INTERFACE SYSTEM RBC 3.53(L) 4.50 - 5.40 M/uL INTERFACE SYSTEM HEMOGLOBIN 10.6(L) 13.6 - 16.5 g/dL INTERFACE SYSTEM HEMATOCRIT 32.6(L) 40.0 - 48.0 % INTERFACE SYSTEM MCV 92.4 82.0 - 99.0 fL INTERFACE SYSTEM MCH 30.0 27.2 - 32.6 pg INTERFACE SYSTEM MCHC 32.5 31.5 - 35.5 % INTERFACE SYSTEM RDW 17.4(H) 11.5 - 14.5 % INTERFACE SYSTEM RDW-STDEV 57.5(H) 37.1 - 48.7 fL INTERFACE SYSTEM PLATELETS 210 140 - 350 K/uL INTERFACE SYSTEM MPV 9.9 9.3 - 12.4 fL INTERFACE SYSTEM 01/23/2006 3:38 AM WATER RESOURCE MANAGER Harshad Heller MD HEMATOLOGY ORDERABLES Final Res ult Performing Organization Address [facility] Phone Number INTERFACE SYSTEM Refer to clinic/hospital department * CALCIUM IONIZED (01/23/2006 3:38 AM WATER RESOURCE MANAGER) CALCIUM IONIZED 4.76 4.76 - 5.16 mg/dL INTERFACE SYSTEM 01/23/2006 3:38 AM WATER RESOURCE MANAGER Harshad Heller MD CHEMISTRY ORDERABLES Final Resu lt Performing Organization Address [facility] Phone Number INTERFACE SYSTEM Refer to clinic/hospital department * PHOSPHORUS (01/23/2006 3:38 AM WATER RESOURCE MANAGER) PHOSPHORUS 2.8 2.5 - 4.5 mg/dL INTERFACE SYSTEM 01/23/2006 3:38 AM WATER RESOURCE MANAGER Harshad Heller MD CHEMISTRY ORDERABLES Final Resu lt Performing Organization Address [facility] Phone Number INTERFACE SYSTEM Refer to clinic/hospital department * MAGNESIUM LEVEL (01/23/2006 3:38 AM WATER RESOURCE MANAGER) MAGNESIUM 1.9 1.5 - 2.5 mg/dL INTERFACE SYSTEM 01/23/2006 3:38 AM WATER RESOURCE MANAGER Harshad Heller MD CHEMISTRY ORDERABLES Final Resu lt Performing Organization Address [facility] Phone Number INTERFACE SYSTEM Refer to clinic/hospital department * (ABNORMAL) BASIC METABOLIC PANEL (01/23/2006 3:38 AM WATER RESOURCE MANAGER) GLUCOSE 90 65 - 99 mg/dL INTERFACE SYSTEM CREATININE 3.9(H) 0.5 - 1.3 mg/dL INTERFACE SYSTEM CALCIUM 8.9 8.4 - 10.2 mg/dL INTERFACE SYSTEM BUN 46(H) 6 - 20 mg/dL INTERFACE SYSTEM SODIUM 143 135 - 145 mmol/L INTERFACE SYSTEM POTASSIUM 4.4 3.5 - 4.9 mmol/L INTERFACE SYSTEM CHLORIDE 103 96 - 108 mmol/L INTERFACE SYSTEM CO2 31(H) 22 - 30 mmol/L INTERFACE SYSTEM 01/23/2006 3:38 AM WATER RESOURCE MANAGER Harshad Heller MD CHEMISTRY ORDERABLES Final Resu lt Performing Organization Address [facility] Phone Number INTERFACE SYSTEM Refer to clinic/hospital department * (ABNORMAL) POC GLUCOSE (01/22/2006 11:34 PM CDT) GLUCOSE POC 172(H) 65 - 109 mg/dL INTERFACE SYSTEM 01/22/2006 11:3 4 PM CDT Wicho Gomez MD POINT OF CARE TESTING Final R esult Performing Organization Address [facility] Phone Number INTERFACE SYSTEM Refer to clinic/hospital department * (ABNORMAL) POC GLUCOSE (01/22/2006 5:53 PM CDT) GLUCOSE POC 205(H) 65 - 109 mg/dL INTERFACE SYSTEM 01/22/2006 5:53 PM CDT Wicho Gomez MD POINT OF CARE TESTING Final R esult Performing Organization Address [facility] Phone Number INTERFACE SYSTEM Refer to clinic/hospital department * (ABNORMAL) POC GLUCOSE (01/22/2006 4:02 PM CDT) GLUCOSE POC 185(H) 65 - 109 mg/dL INTERFACE SYSTEM 01/22/2006 4:02 PM CDT us Wicho Gomez MD POINT OF CARE TESTING Final R esult Performing Organization Address [facility] de Phone Number INTERFACE SYSTEM Refer to clinic/hospital department * (ABNORMAL) POC GLUCOSE (01/22/2006 11:24 AM CDT) GLUCOSE POC 168(H) 65 - 109 mg/dL INTERFACE SYSTEM 01/22/2006 11:2 4 AM CDT Wicho Gomez MD POINT OF CARE TESTING Final R esult Performing Organization Address [facility] de Phone Number INTERFACE SYSTEM Refer to clinic/hospital department * (ABNORMAL) POC GLUCOSE (01/22/2006 6:16 AM CDT) GLUCOSE POC 222(H) 65 - 109 mg/dL INTERFACE SYSTEM 01/22/2006 6:16 AM CDT Wicho Gomez MD POINT OF CARE TESTING Final R esult Performing Organization Address [facility] de Phone Number INTERFACE SYSTEM Refer to clinic/hospital department * (ABNORMAL) CBC WITH DIFFERENTIAL (01/22/2006 3:00 AM CDT) NEUTROPHILS 84(H) 45 - 70 % INTERFAC E SYSTEM LYMPHOCYTES 9(L) 16 - 45 % INTERFAC E SYSTEM MONOCYTES 7 3 - 13 % INTERFACE SYSTEM EOSINOPHILS 0 0 - 7 % INTERFAC E SYSTEM BASOPHILS 0 0 - 2 % INTERFACE SYSTEM NEUTROPHIL ABSOLUTE 10.84(H) 1.90 - 7.00 K/uL INTERFACE SYSTEM LYMPHOCYTE ABSOLUTE 1.19 0.70 - 4.50 K/uL INTERFACE SYSTEM MONOCYTE ABSOLUTE 0.89 0.10 - 1.30 K/uL INTERFACE SYSTEM EOSINOPHIL ABSOLUTE 0.00 0.00 - 0.70 K/uL INTERFACE SYSTEM BASOPHILS ABSOLUTE 0.03 0.00 - 0.20 K/uL INTERFACE SYSTEM 01/22/2006 3:00 AM CDT Harshad Heller MD HEMATOLOGY ORDERABLES Final Res ult Performing Organization Address City/[facility] de Phone Number INTERFACE SYSTEM Refer to clinic/hospital department * (ABNORMAL) CBC WITH DIFFERENTIAL (01/22/2006 3:00 AM CDT) WBC 13.0(H) 4.0 - 9.8 K/uL INTERFACE SYSTEM RBC 3.60(L) 4.50 - 5.40 M/uL INTERFACE SYSTEM HEMOGLOBIN 10.8(L) 13.6 - 16.5 g/dL INTERFACE SYSTEM HEMATOCRIT 32.7(L) 40.0 - 48.0 % INTERFACE SYSTEM MCV 90.8 82.0 - 99.0 fL INTERFACE SYSTEM MCH 30.0 27.2 - 32.6 pg INTERFACE SYSTEM MCHC 33.0 31.5 - 35.5 % INTERFACE SYSTEM RDW 17.4(H) 11.5 - 14.5 % INTERFACE SYSTEM RDW-STDEV 56.2(H) 37.1 - 48.7 fL INTERFACE SYSTEM PLATELETS 232 140 - 350 K/uL INTERFACE SYSTEM MPV 10.4 9.3 - 12.4 fL INTERFACE SYSTEM 01/22/2006 3:00 AM CDT Harshad Heller MD HEMATOLOGY ORDERABLES Final Res ult Performing Organization Address [facility] de Phone Number INTERFACE SYSTEM Refer to clinic/hospital department * (ABNORMAL) BLOOD GAS ARTERIAL (01/22/2006 3:00 AM CDT) PH ARTERIAL 7.45 7.35 - 7.45 INTERFACE SYSTEM PCO2 ARTERIAL 41 35 - 48 mm Hg INTERFACE SYSTEM PO2 ARTERIAL 59(L) 83 - 108 mm Hg INTERFACE SYSTEM SO2 ABG 93(L) 95 - 99 % INTERFACE SYSTEM FO2HB ABG 92(L) 94 - 98 % INTERFACE SYSTEM HCO3 ARTERIAL 28(H) 22 - 26 mmol/L INTERFACE SYSTEM BASE EXCESS ABG 3.8(H) -2.0 - 3.0 mmol/L INTERFACE SYSTEM O2 CONC ARTERIAL 30 INTERFACE SYSTEM 01/22/2006 3:00 AM CDT us Wicho Gomez MD ABG ORDERABLES Final Result Performing Organization Address City/[facility] [place] Phone Number INTERFACE SYSTEM Refer to clinic/hospital department * PHOSPHORUS (01/22/2006 3:00 AM CDT) PHOSPHORUS 2.6 2.5 - 4.5 mg/dL INTERFACE SYSTEM 01/22/2006 3:00 AM CDT Harshad Heller MD CHEMISTRY ORDERABLES Final Resu lt Performing Organization Address [facility] Phone Number INTERFACE SYSTEM Refer to clinic/hospital department * MAGNESIUM LEVEL (01/22/2006 3:00 AM CDT) MAGNESIUM 2.4 1.5 - 2.5 mg/dL INTERFACE SYSTEM 01/22/2006 3:00 AM CDT Harshad Heller MD CHEMISTRY ORDERABLES Final Resu lt Performing Organization Address [facility] Phone Number INTERFACE SYSTEM Refer to clinic/hospital department * CALCIUM IONIZED (01/22/2006 3:00 AM CDT) CALCIUM IONIZED 4.88 4.76 - 5.16 mg/dL INTERFACE SYSTEM 01/22/2006 3:00 AM CDT Harshad Heller MD CHEMISTRY ORDERABLES Final Resu lt Performing Organization Address [facility] Phone Number INTERFACE SYSTEM Refer to clinic/hospital department * (ABNORMAL) BASIC METABOLIC PANEL (01/22/2006 3:00 AM CDT) GLUCOSE 171(H) 65 - 99 mg/dL INTERFACE SYSTEM CREATININE 5.1(H) 0.5 - 1.3 mg/dL INTERFACE SYSTEM CALCIUM 8.6 8.4 - 10.2 mg/dL INTERFACE SYSTEM BUN 63(H) 6 - 20 mg/dL INTERFACE SYSTEM SODIUM 142 135 - 145 mmol/L INTERFACE SYSTEM POTASSIUM 4.3 3.5 - 4.9 mmol/L INTERFACE SYSTEM CHLORIDE 104 96 - 108 mmol/L INTERFACE SYSTEM CO2 29 22 - 30 mmol/L INTERFACE SYSTEM 01/22/2006 3:00 AM CDT Harshad Heller MD CHEMISTRY ORDERABLES Final Resu lt Performing Organization Address [facility] Phone Number INTERFACE SYSTEM Refer to clinic/hospital department * (ABNORMAL) POC GLUCOSE (01/22/2006 12:31 AM CDT) GLUCOSE POC 165(H) 65 - 109 mg/dL INTERFACE SYSTEM 01/22/2006 12:3 1 AM CDT us Wicho Gomez MD POINT OF CARE TESTING Final R esult Performing Organization Address [facility] Phone Number INTERFACE SYSTEM Refer to clinic/hospital department * (ABNORMAL) OCCULT BLOOD, STOOL (01/21/2006 9:25 PM CDT) OCCULT BLOOD, STOOL Positive(A ) Negative INTERFACE SYSTEM 01/21/2006 9:25 PM CDT us Harshad Heller MD BODY FLUIDS AND STOOLS Final Re sult Performing Organization Address [facility] Phone Number INTERFACE SYSTEM Refer to clinic/hospital department * (ABNORMAL) PTT (01/21/2006 9:25 PM CDT) PTT 37.2(H) 24.4 - 36.4 Seconds INTERFACE SYSTEM Comment: PTT Therapeutic Range: Heparin Level ? PTT (seconds) <0.10 units/mL ? <53 0.10 - 0.30 units/mL ? 53 - 67 0.30 - 0.70 units/mL* ?67 - 95* 0.70 - 1.00 units/mL ?95 - 116 *corresponds to therapeutic range for unfractionated heparin ?? 01/21/2006 9:25 PM CDT us Harshad Heller MD HEMATOLOGY ORDERABLES Final Res ult Performing Organization Address [facility] Phone Number INTERFACE SYSTEM Refer to clinic/hospital department * (ABNORMAL) POC GLUCOSE (01/21/2006 5:01 PM CDT) GLUCOSE POC 221(H) 65 - 109 mg/dL INTERFACE SYSTEM 01/21/2006 5:01 PM CDT Wicho Gomez MD POINT OF CARE TESTING Final [facility] Performing Organization Address [facility] Phone Number INTERFACE SYSTEM Refer to clinic/hospital department * (ABNORMAL) PTT (01/21/2006 2:40 PM CDT) PTT 56.9(H) 24.4 - 36.4 Seconds INTERFACE SYSTEM Comment: PTT Therapeutic Range: Heparin Level ? PTT (seconds) <0.10 units/mL ? <53 0.10 - 0.30 units/mL ? 53 - 67 0.30 - 0.70 units/mL* ?67 - 95* 0.70 - 1.00 units/mL ?95 - 116 *corresponds to therapeutic range for unfractionated heparin ?? 01/21/2006 2:40 PM CDT Wicho Gomez MD HEMATOLOGY ORDERABLES [facility] Performing Organization Address [facility] Phone Number INTERFACE SYSTEM Refer to clinic/hospital department * (ABNORMAL) PROTIME-INR (01/21/2006 2:40 PM CDT) PROTIME 15.8(H) 12.7 - 15.1 Seconds INTERFACE SYSTEM INR 1.2(H) 0.9 - 1.1 INTERFACE SYSTEM Comment: INR Therapeutic Range: Adult: 2.0 - 3.0 for pulmonary embolism or prophylaxis against venous thrombosis or systemic embolization. 2.0 - 3.0 for patients with tissue heart valves. ?? 2.5 - 3.5 for patients with mechanical heart valves or post MD. Pediatric ??(12 years and under): 1.5 - 3.0 Although the target range in children is not well established , INR values of 1.5 - 3.0 are recommended for most patients. Higher values have been used in children with prosthetic cardiac valves and hereditary clotting disorders. (<3 days) therapeutic ranges have not been established. 01/21/2006 2:40 PM CDT Wicho Gomez MD HEMATOLOGY ORDERABLES Final [facility] Performing Organization Address [facility] Phone Number INTERFACE SYSTEM Refer to clinic/hospital department * (ABNORMAL) POC GLUCOSE (01/21/2006 11:03 AM CDT) GLUCOSE POC 180(H) 65 - 109 mg/dL INTERFACE SYSTEM 01/21/2006 11:0 3 AM CDT Wicho Gomez MD POINT OF CARE TESTING Final [facility] Performing Organization Address [facility] Phone Number INTERFACE SYSTEM Refer to clinic/hospital department * (ABNORMAL) PTT (01/21/2006 7:55 AM CDT) PTT 89.8(H) 24.4 - 36.4 Seconds INTERFACE SYSTEM Comment: PTT Therapeutic Range: Heparin Level ? PTT (seconds) <0.10 units/mL ? <53 0.10 - 0.30 units/mL ? 53 - 67 0.30 - 0.70 units/mL* ?67 - 95* 0.70 - 1.00 units/mL ?95 - 116 *corresponds to therapeutic range for unfractionated heparin ?? 01/21/2006 7:55 AM CDT Wicho Gomez MD HEMATOLOGY ORDERABLES Final [facility] Performing Organization Address [facility] Phone Number INTERFACE SYSTEM Refer to clinic/hospital department * (ABNORMAL) PROTIME-INR (01/21/2006 7:55 AM CDT) PROTIME 15.4(H) 12.7 - 15.1 Seconds INTERFACE SYSTEM INR 1.1 0.9 - 1.1 INTERFACE SYSTEM Comment: INR Therapeutic Range: Adult: 2.0 - 3.0 for pulmonary embolism or prophylaxis against venous thrombosis or systemic embolization. 2.0 - 3.0 for patients with tissue heart valves. ?? 2.5 - 3.5 for patients with mechanical heart valves or post MD. Pediatric ??(12 years and under): 1.5 - 3.0 Although the target range in children is not well established , INR values of 1.5 - 3.0 are recommended for most patients. Higher values have been used in children with prosthetic cardiac valves and hereditary clotting disorders. (<3 days) therapeutic ranges have not been established. 01/21/2006 7:55 AM CDT Wicho Gomez MD HEMATOLOGY ORDERABLES Final [facility] Performing Organization Address [facility] de Phone Number INTERFACE SYSTEM Refer to clinic/hospital department * (ABNORMAL) POC GLUCOSE (01/21/2006 6:27 AM CDT) Pathologist [facility] GLUCOSE POC 225(H) 65 - 109 mg/dL INTERFACE SYSTEM 01/21/2006 6:27 AM CDT Wicho Gomez MD POINT OF CARE TESTING Final [facility] Performing Organization Address [facility] Phone Number INTERFACE SYSTEM Refer to clinic/hospital department * (ABNORMAL) BLOOD GAS ARTERIAL (01/21/2006 4:00 AM CDT) PH ARTERIAL 7.49(H) 7.35 - 7.45 INTERFACE SYSTEM PCO2 ARTERIAL 37 35 - 48 mm Hg INTERFACE SYSTEM PO2 ARTERIAL 113(H) 83 - 108 mm Hg INTERFACE SYSTEM SO2 ABG 99 95 - 99 % INTERFACE SYSTEM FO2HB ABG 98 94 - 98 % INTERFACE SYSTEM HCO3 ARTERIAL 28(H) 22 - 26 mmol/L INTERFACE SYSTEM BASE EXCESS ABG 4.3(H) -2.0 - 3.0 mmol/L INTERFACE SYSTEM O2 CONC ARTERIAL 30% FiO2 INTERFACE SYSTEM 01/21/2006 4:00 AM CDT Romie Laughlin MD ABG ORDERABLES Final Result Performing Organization Address [facility] de Phone Number INTERFACE SYSTEM Refer to clinic/hospital department * (ABNORMAL) CBC WITH DIFFERENTIAL (01/21/2006 4:00 AM CDT) NEUTROPHILS 83(H) 45 - 70 % INTERFAC E SYSTEM LYMPHOCYTES 10(L) 16 - 45 % INTERFAC E SYSTEM MONOCYTES 7 3 - 13 % INTERFACE SYSTEM EOSINOPHILS 0 0 - 7 % INTERFAC E SYSTEM BASOPHILS 0 0 - 2 % INTERFACE SYSTEM NEUTROPHIL ABSOLUTE 8.39(H) 1.90 - 7.00 K/uL INTERFACE SYSTEM LYMPHOCYTE ABSOLUTE 0.96 0.70 - 4.50 K/uL INTERFACE SYSTEM MONOCYTE ABSOLUTE 0.72 0.10 - 1.30 K/uL INTERFACE SYSTEM EOSINOPHIL ABSOLUTE 0.00 0.00 - 0.70 K/uL INTERFACE SYSTEM BASOPHILS ABSOLUTE 0.02 0.00 - 0.20 K/uL INTERFACE SYSTEM 01/21/2006 4:00 AM CDT Romie Laughlin MD HEMATOLOGY ORDERABLES Final Result Performing Organization Address [facility] Phone Number INTERFACE SYSTEM Refer to clinic/hospital department * (ABNORMAL) CBC WITH DIFFERENTIAL (01/21/2006 4:00 AM CDT) WBC 10.1(H) 4.0 - 9.8 K/uL INTERFACE SYSTEM RBC 2.92(L) 4.50 - 5.40 M/uL INTERFACE SYSTEM HEMOGLOBIN 8.7(L) 13.6 - 16.5 g/dL INTERFACE SYSTEM HEMATOCRIT 26.9(L) 40.0 - 48.0 % INTERFACE SYSTEM MCV 92.1 82.0 - 99.0 fL INTERFACE SYSTEM MCH 29.8 27.2 - 32.6 pg INTERFACE SYSTEM MCHC 32.3 31.5 - 35.5 % INTERFACE SYSTEM RDW 17.7(H) 11.5 - 14.5 % INTERFACE SYSTEM RDW-STDEV 57.9(H) 37.1 - 48.7 fL INTERFACE SYSTEM PLATELETS 229 140 - 350 K/uL INTERFACE SYSTEM MPV 9.8 9.3 - 12.4 fL INTERFACE SYSTEM 01/21/2006 4:00 AM CDT Romie Laughlin MD HEMATOLOGY ORDERABLES Final Result Performing Organization Address [facility] Phone Number INTERFACE SYSTEM Refer to clinic/hospital department * PHOSPHORUS (01/21/2006 4:00 AM CDT) PHOSPHORUS 2.9 2.5 - 4.5 mg/dL INTERFACE SYSTEM 01/21/2006 4:00 AM CDT Romie Laughlin MD CHEMISTRY ORDERABLES Final R esult Performing Organization Address [facility] Phone Number INTERFACE SYSTEM Refer to clinic/hospital department * MAGNESIUM LEVEL (01/21/2006 4:00 AM CDT) MAGNESIUM 2.4 1.5 - 2.5 mg/dL INTERFACE SYSTEM 01/21/2006 4:00 AM CDT Romie Laughlin MD CHEMISTRY ORDERABLES Final R esult Performing Organization Address [facility] Phone Number INTERFACE SYSTEM Refer to clinic/hospital department * CALCIUM IONIZED (01/21/2006 4:00 AM CDT) CALCIUM IONIZED 4.80 4.76 - 5.16 mg/dL INTERFACE SYSTEM 01/21/2006 4:00 AM CDT Romie Laughlin MD CHEMISTRY ORDERABLES Final R esult Performing Organization Address [facility] Phone Number INTERFACE SYSTEM Refer to clinic/hospital department * (ABNORMAL) BASIC METABOLIC PANEL (01/21/2006 4:00 AM CDT) GLUCOSE 216(H) 65 - 99 mg/dL INTERFACE SYSTEM CREATININE 4.1(H) 0.5 - 1.3 mg/dL INTERFACE SYSTEM Comment:Significant change f rom prior result, correlate clinically and redraw if necessary. CALCIUM 8.6 8.4 - 10.2 mg/dL INTERFACE SYSTEM BUN 48(H) 6 - 20 mg/dL INTERFACE SYSTEM SODIUM 145 135 - 145 mmol/L INTERFACE SYSTEM POTASSIUM 4.4 3.5 - 4.9 mmol/L INTERFACE SYSTEM CHLORIDE 104 96 - 108 mmol/L INTERFACE SYSTEM CO2 31(H) 22 - 30 mmol/L INTERFACE SYSTEM 01/21/2006 4:00 AM CDT Romie Laughlin MD CHEMISTRY ORDERABLES Final R [facility] Performing Organization Address [facility] de Phone Number INTERFACE SYSTEM Refer to clinic/hospital department * (ABNORMAL) PROTIME-INR (01/21/2006 1:00 AM CDT) PROTIME 16.2(H) 12.7 - 15.1 Seconds INTERFACE SYSTEM INR 1.2(H) 0.9 - 1.1 INTERFACE SYSTEM Comment: INR Therapeutic Range: Adult: 2.0 - 3.0 for pulmonary embolism or prophylaxis against venous thrombosis or systemic embolization. 2.0 - 3.0 for patients with tissue heart valves. ?? 2.5 - 3.5 for patients with mechanical heart valves or post MD. Pediatric ??(12 years and under): 1.5 - 3.0 Although the target range in children is not well established , INR values of 1.5 - 3.0 are recommended for most patients. Higher values have been used in children with prosthetic cardiac valves and hereditary clotting disorders. (<3 days) therapeutic ranges have not been established. 01/21/2006 1:00 AM CDT Wicho Gomez MD HEMATOLOGY ORDERABLES Final R esult Performing Organization Address [facility] de Phone Number INTERFACE SYSTEM Refer to clinic/hospital department * (ABNORMAL) PTT (01/21/2006 1:00 AM CDT) PTT 87.9(H) 24.4 - 36.4 Seconds INTERFACE SYSTEM Comment: PTT Therapeutic Range: Heparin Level ? PTT (seconds) <0.10 units/mL ? <53 0.10 - 0.30 units/mL ? 53 - 67 0.30 - 0.70 units/mL* ?67 - 95* 0.70 - 1.00 units/mL ?95 - 116 *corresponds to therapeutic range for unfractionated heparin ?? 01/21/2006 1:00 AM CDT Wicho Gomez MD HEMATOLOGY ORDERABLES Final R esult Performing Organization Address [facility] Phone Number INTERFACE SYSTEM Refer to clinic/hospital department * (ABNORMAL) POC GLUCOSE (01/21/2006 12:09 AM CDT) GLUCOSE POC 179(H) 65 - 109 mg/dL INTERFACE SYSTEM 01/21/2006 12:0 9 AM CDT Wicho Gomez MD POINT OF CARE TESTING Final R esult Performing Organization Address [facility] Phone Number INTERFACE SYSTEM Refer to clinic/hospital department * (ABNORMAL) BLOOD GAS ARTERIAL (01/20/2006 10:22 PM CDT) PH ARTERIAL 7.30(L) 7.35 - 7.45 INTERFACE SYSTEM PCO2 ARTERIAL 64(H) 35 - 48 mm Hg INTERFACE SYSTEM PO2 ARTERIAL 61(L) 83 - 108 mm Hg INTERFACE SYSTEM SO2 ABG 91(L) 95 - 99 % INTERFACE SYSTEM FO2HB ABG 90(L) 94 - 98 % INTERFACE SYSTEM HCO3 ARTERIAL 31(H) 22 - 26 mmol/L INTERFACE SYSTEM BASE EXCESS ABG 3.2(H) -2.0 - 3.0 mmol/L INTERFACE SYSTEM O2 CONC ARTERIAL 100% HHTC INTERFACE SYSTEM 01/20/2006 10:2 2 PM CDT Romie Laughlin MD ABG ORDERABLES Final Result Performing Organization Address [facility] Phone Number INTERFACE SYSTEM Refer to clinic/hospital department * (ABNORMAL) POC GLUCOSE (01/20/2006 6:29 PM CDT) GLUCOSE POC 172(H) 65 - 109 mg/dL INTERFACE SYSTEM 01/20/2006 6:29 PM CDT Result Roxie Gomez MD POINT OF CARE TESTING Final R [facility] Performing Organization Address [facility] Phone Number INTERFACE SYSTEM Refer to clinic/hospital department * POC GLUCOSE (01/20/2006 6:18 PM CDT) GLUCOSE POC 75 65 - 109 mg/dL INTERFACE SYSTEM 01/20/2006 6:18 PM CDT Result [facility] [place] Wicho Gomez MD POINT OF CARE TESTING Final [facility] Performing Organization Address [facility] Phone Number INTERFACE SYSTEM Refer to clinic/hospital department * (ABNORMAL) PROTIME-INR (01/20/2006 6:15 PM CDT) PROTIME 17.1(H) 12.7 - 15.1 Seconds INTERFACE SYSTEM INR 1.3(H) 0.9 - 1.1 INTERFACE SYSTEM Comment: INR Therapeutic Range: Adult: 2.0 - 3.0 for pulmonary embolism or prophylaxis against venous thrombosis or systemic embolization. 2.0 - 3.0 for patients with tissue heart valves. ?? 2.5 - 3.5 for patients with mechanical heart valves or post MD. Pediatric ??(12 years and under): 1.5 - 3.0 Although the target range in children is not well established , INR values of 1.5 - 3.0 are recommended for most patients. Higher values have been used in children with prosthetic cardiac valves and hereditary clotting disorders. (<3 days) therapeutic ranges have not been established. 01/20/2006 6:15 PM CDT Result Roxie Gomez MD HEMATOLOGY ORDERABLES Final R [facility] Performing Organization Address [facility] Phone Number INTERFACE SYSTEM Refer to clinic/hospital department * (ABNORMAL) PTT (01/20/2006 6:15 PM CDT) PTT 64.2(H) 24.4 - 36.4 Seconds INTERFACE SYSTEM Comment: PTT Therapeutic Range: Heparin Level ? PTT (seconds) <0.10 units/mL ? <53 0.10 - 0.30 units/mL ? 53 - 67 0.30 - 0.70 units/mL* ?67 - 95* 0.70 - 1.00 units/mL ?95 - 116 *corresponds to therapeutic range for unfractionated heparin ?? 01/20/2006 6:15 PM CDT Wicho Gomez MD HEMATOLOGY ORDERABLES Final R [employer] Performing Organization Address [facility] de Phone Number INTERFACE SYSTEM Refer to clinic/hospital department * (ABNORMAL) PROTIME-INR (01/20/2006 12:30 PM CDT) PROTIME 15.5(H) 12.7 - 15.1 Seconds INTERFACE SYSTEM INR 1.1 0.9 - 1.1 INTERFACE SYSTEM Comment: INR Therapeutic Range: Adult: 2.0 - 3.0 for pulmonary embolism or prophylaxis against venous thrombosis or systemic embolization. 2.0 - 3.0 for patients with tissue heart valves. ?? 2.5 - 3.5 for patients with mechanical heart valves or post MD. Pediatric ??(12 years and under): 1.5 - 3.0 Although the target range in children is not well established , INR values of 1.5 - 3.0 are recommended for most patients. Higher values have been used in children with prosthetic cardiac valves and hereditary clotting disorders. (<3 days) therapeutic ranges have not been established. 01/20/2006 12:3 0 PM CDT Wicho Gomez MD HEMATOLOGY ORDERABLES Final R [employer] Performing Organization Address [facility] de Phone Number INTERFACE SYSTEM Refer to clinic/hospital department * (ABNORMAL) PTT (01/20/2006 12:30 PM CDT) PTT 52.1(H) 24.4 - 36.4 Seconds INTERFACE SYSTEM Comment: PTT Therapeutic Range: Heparin Level ? PTT (seconds) <0.10 units/mL ? <53 0.10 - 0.30 units/mL ? 53 - 67 0.30 - 0.70 units/mL* ?67 - 95* 0.70 - 1.00 units/mL ?95 - 116 *corresponds to therapeutic range for unfractionated heparin ?? 01/20/2006 12:3 0 PM CDT Wicho Gomez MD HEMATOLOGY ORDERABLES Final R [facility] Performing Organization Address City/[facility] de Phone Number INTERFACE SYSTEM Refer to clinic/hospital department * (ABNORMAL) POC GLUCOSE (01/20/2006 12:15 PM CDT) [facility] GLUCOSE POC 172(H) 65 - 109 mg/dL INTERFACE SYSTEM 01/20/2006 12:1 5 PM CDT Wicho Gomez MD POINT OF CARE TESTING Final [place] Performing Organization Address [facility] de Phone Number INTERFACE SYSTEM Refer to clinic/hospital department * (ABNORMAL) PROTIME-INR (01/20/2006 6:50 AM CDT) Pathologist [facility] PROTIME 17.1(H) 12.7 - 15.1 Seconds INTERFACE SYSTEM INR 1.3(H) 0.9 - 1.1 INTERFACE SYSTEM Comment: INR Therapeutic Range: Adult: 2.0 - 3.0 for pulmonary embolism or prophylaxis against venous thrombosis or systemic embolization. 2.0 - 3.0 for patients with tissue heart valves. ?? 2.5 - 3.5 for patients with mechanical heart valves or post MD. Pediatric ??(12 years and under): 1.5 - 3.0 Although the target range in children is not well established , INR values of 1.5 - 3.0 are recommended for most patients. Higher values have been used in children with prosthetic cardiac valves and hereditary clotting disorders. (<3 days) therapeutic ranges have not been established. 01/20/2006 6:50 AM CDT Wicho Gomez MD HEMATOLOGY ORDERABLES [facility] Performing Organization Address [facility] Phone Number INTERFACE SYSTEM Refer to clinic/hospital department * (ABNORMAL) PTT (01/20/2006 6:50 AM CDT) PTT >150.0(AA ) 24.4 - 36.4 Seconds INTERFACE SYSTEM Comment: PTT Therapeutic Range: Heparin Level ? PTT (seconds) <0.10 units/mL ? <53 0.10 - 0.30 units/mL ? 53 - 67 0.30 - 0.70 units/mL* ?67 - 95* 0.70 - 1.00 units/mL ?95 - 116 *corresponds to therapeutic range for unfractionated heparin ?? Verified by repeat analysis. Results called to katie at 01/20/2006 7:55 AM and read back verified. 01/20/2006 6:50 AM CDT Wicho Gomez MD HEMATOLOGY ORDERABLES Final R [place] Performing Organization Address [facility] Phone Number INTERFACE SYSTEM Refer to clinic/hospital department * (ABNORMAL) POC GLUCOSE (01/20/2006 5:09 AM CDT) GLUCOSE POC 110(H) 65 - 109 mg/dL INTERFACE SYSTEM 01/20/2006 5:09 AM CDT Wicho Gomez MD POINT OF CARE TESTING Final R [place] Performing Organization Address [facility] Phone Number INTERFACE SYSTEM Refer to clinic/hospital department * (ABNORMAL) CBC WITH DIFFERENTIAL (01/20/2006 4:15 AM CDT) NEUTROPHILS 81(H) 45 - 70 % INTERFAC E SYSTEM LYMPHOCYTES 10(L) 16 - 45 % INTERFAC E SYSTEM MONOCYTES 10 3 - 13 % INTERFACE SYSTEM EOSINOPHILS 0 0 - 7 % INTERFAC E SYSTEM BASOPHILS 0 0 - 2 % INTERFACE SYSTEM NEUTROPHIL ABSOLUTE 10.27(H) 1.90 - 7.00 K/uL INTERFACE SYSTEM LYMPHOCYTE ABSOLUTE 1.21 0.70 - 4.50 K/uL INTERFACE SYSTEM MONOCYTE ABSOLUTE 1.23 0.10 - 1.30 K/uL INTERFACE SYSTEM EOSINOPHIL ABSOLUTE 0.00 0.00 - 0.70 K/uL INTERFACE SYSTEM BASOPHILS ABSOLUTE 0.04 0.00 - 0.20 K/uL INTERFACE SYSTEM 01/20/2006 4:15 AM CDT Romie Laughlin MD HEMATOLOGY ORDERABLES Final Result Performing Organization Address [facility] de Phone Number INTERFACE SYSTEM Refer to clinic/hospital department * (ABNORMAL) CBC WITH DIFFERENTIAL (01/20/2006 4:15 AM CDT) WBC 12.8(H) 4.0 - 9.8 K/uL INTERFACE SYSTEM RBC 3.58(L) 4.50 - 5.40 M/uL INTERFACE SYSTEM HEMOGLOBIN 10.7(L) 13.6 - 16.5 g/dL INTERFACE SYSTEM HEMATOCRIT 32.7(L) 40.0 - 48.0 % INTERFACE SYSTEM MCV 91.3 82.0 - 99.0 fL INTERFACE SYSTEM MCH 29.9 27.2 - 32.6 pg INTERFACE SYSTEM MCHC 32.7 31.5 - 35.5 % INTERFACE SYSTEM RDW 17.5(H) 11.5 - 14.5 % INTERFACE SYSTEM RDW-STDEV 57.7(H) 37.1 - 48.7 fL INTERFACE SYSTEM PLATELETS 253 140 - 350 K/uL INTERFACE SYSTEM MPV 10.0 9.3 - 12.4 fL INTERFACE SYSTEM 01/20/2006 4:15 AM CDT Romie Laughlin MD HEMATOLOGY ORDERABLES Final Result INTERFACE SYSTEM Refer to clinic/hospital department * (ABNORMAL) PHOSPHORUS (01/20/2006 4:15 AM CDT) PHOSPHORUS 1.5(L) 2.5 - 4.5 mg/dL INTERFACE SYSTEM 01/20/2006 4:15 AM CDT Romie Laughlin MD CHEMISTRY ORDERABLES Final R esult Performing Organization Address [facility] Phone Number INTERFACE SYSTEM Refer to clinic/hospital department * MAGNESIUM LEVEL (01/20/2006 4:15 AM CDT) MAGNESIUM 1.5 1.5 - 2.5 mg/dL INTERFACE SYSTEM 01/20/2006 4:15 AM CDT Romie Laughlin MD CHEMISTRY ORDERABLES Final R esult Performing Organization Address [facility] Phone Number INTERFACE SYSTEM Refer to clinic/hospital department * CALCIUM IONIZED (01/20/2006 4:15 AM CDT) CALCIUM IONIZED 4.80 4.76 - 5.16 mg/dL INTERFACE SYSTEM 01/20/2006 4:15 AM CDT Romie Laughlin MD CHEMISTRY ORDERABLES Final R esult Performing Organization Address [facility] Phone Number INTERFACE SYSTEM Refer to clinic/hospital department * (ABNORMAL) BASIC METABOLIC PANEL (01/20/2006 4:15 AM CDT) GLUCOSE 105(H) 65 - 99 mg/dL INTERFACE SYSTEM CREATININE 3.0(H) 0.5 - 1.3 mg/dL INTERFACE SYSTEM CALCIUM 8.4 8.4 - 10.2 mg/dL INTERFACE SYSTEM BUN 27(H) 6 - 20 mg/dL INTERFACE SYSTEM SODIUM 141 135 - 145 mmol/L INTERFACE SYSTEM POTASSIUM 4.1 3.5 - 4.9 mmol/L INTERFACE SYSTEM CHLORIDE 102 96 - 108 mmol/L INTERFACE SYSTEM CO2 31(H) 22 - 30 mmol/L INTERFACE SYSTEM 01/20/2006 4:15 AM CDT Romie Laughlin MD CHEMISTRY ORDERABLES [facility] Performing Organization Address [facility] Phone Number INTERFACE SYSTEM Refer to clinic/hospital department * (ABNORMAL) PTT (01/20/2006 1:45 AM CDT) PTT 59.3(H) 24.4 - 36.4 Seconds INTERFACE SYSTEM Comment: PTT Therapeutic Range: Heparin Level ? PTT (seconds) <0.10 units/mL ? <53 0.10 - 0.30 units/mL ? 53 - 67 0.30 - 0.70 units/mL* ?67 - 95* 0.70 - 1.00 units/mL ?95 - 116 *corresponds to therapeutic range for unfractionated heparin ?? 01/20/2006 1:45 AM CDT Wicho Gomez MD HEMATOLOGY ORDERABLES Final [facility] Performing Organization Address [facility] Phone Number INTERFACE SYSTEM Refer to clinic/hospital department * (ABNORMAL) PROTIME-INR (01/20/2006 1:45 AM CDT) PROTIME 15.9(H) 12.7 - 15.1 Seconds INTERFACE SYSTEM INR 1.2(H) 0.9 - 1.1 INTERFACE SYSTEM Comment: INR Therapeutic Range: Adult: 2.0 - 3.0 for pulmonary embolism or prophylaxis against venous thrombosis or systemic embolization. 2.0 - 3.0 for patients with tissue heart valves. ?? 2.5 - 3.5 for patients with mechanical heart valves or post MD. Pediatric ??(12 years and under): 1.5 - 3.0 Although the target range in children is not well established , INR values of 1.5 - 3.0 are recommended for most patients. Higher values have been used in children with prosthetic cardiac valves and hereditary clotting disorders. (<3 days) therapeutic ranges have not been established. 01/20/2006 1:45 AM CDT us Wicho Gomez MD HEMATOLOGY ORDERABLES Final [facility] Performing Organization Address [facility] Phone Number INTERFACE SYSTEM Refer to clinic/hospital department * (ABNORMAL) POC GLUCOSE (01/19/2006 11:55 PM CDT) GLUCOSE POC 185(H) 65 - 109 mg/dL INTERFACE SYSTEM 01/19/2006 11:5 5 PM CDT us Wicho Gomez MD POINT OF CARE TESTING Final [facility] Performing Organization Address [facility] Phone Number INTERFACE SYSTEM Refer to clinic/hospital department * (ABNORMAL) PTT (01/19/2006 7:00 PM CDT) PTT 54.7(H) 24.4 - 36.4 Seconds INTERFACE SYSTEM Comment: PTT Therapeutic Range: Heparin Level ? PTT (seconds) <0.10 units/mL ? <53 0.10 - 0.30 units/mL ? 53 - 67 0.30 - 0.70 units/mL* ?67 - 95* 0.70 - 1.00 units/mL ?95 - 116 *corresponds to therapeutic range for unfractionated heparin ?? 01/19/2006 7:00 PM CDT us Wicho Gomez MD HEMATOLOGY ORDERABLES Final [facility] Performing Organization Address [facility] Phone Number INTERFACE SYSTEM Refer to clinic/hospital department * (ABNORMAL) POC GLUCOSE (01/19/2006 5:28 PM CDT) GLUCOSE POC 145(H) 65 - 109 mg/dL INTERFACE SYSTEM 01/19/2006 5:28 PM CDT Wicho Gomez MD POINT OF CARE TESTING Final R [facility] Performing Organization Address [facility] Phone Number INTERFACE SYSTEM Refer to clinic/hospital department * PTT (01/19/2006 2:12 PM CDT) PTT 29.7 24.4 - 36.4 Seconds INTERFACE SYSTEM Comment: PTT Therapeutic Range: Heparin Level ? PTT (seconds) <0.10 units/mL ? <53 0.10 - 0.30 units/mL ? 53 - 67 0.30 - 0.70 units/mL* ?67 - 95* 0.70 - 1.00 units/mL ?95 - 116 *corresponds to therapeutic range for unfractionated heparin ?? 01/19/2006 2:12 PM CDT Wicho Gomez MD HEMATOLOGY ORDERABLES Final [facility] Performing Organization Address [facility] Phone Number INTERFACE SYSTEM Refer to clinic/hospital department * (ABNORMAL) POC GLUCOSE (01/19/2006 12:42 PM CDT) GLUCOSE POC 174(H) 65 - 109 mg/dL INTERFACE SYSTEM 01/19/2006 12:4 2 PM CDT Wicho Gomez MD POINT OF CARE TESTING Final [facility] Performing Organization Address [facility] Phone Number INTERFACE SYSTEM Refer to clinic/hospital department * (ABNORMAL) PTT (01/19/2006 7:22 AM CDT) PTT 56.9(H) 24.4 - 36.4 Seconds INTERFACE SYSTEM Comment: PTT Therapeutic Range: Heparin Level ? PTT (seconds) <0.10 units/mL ? <53 0.10 - 0.30 units/mL ? 53 - 67 0.30 - 0.70 units/mL* ?67 - 95* 0.70 - 1.00 units/mL ?95 - 116 *corresponds to therapeutic range for unfractionated heparin ?? 01/19/2006 7:22 AM CDT us Harshad Heller MD HEMATOLOGY ORDERABLES Final Res ult INTERFACE SYSTEM Refer to clinic/hospital department * CBC WITH DIFFERENTIAL (01/19/2006 4:10 AM CDT) ANISOCYTOSIS Slight INTERFA CE SYSTEM POIKILOCYTES Slight INTERFA CE SYSTEM OVALOCYTES Slight INTERFACE SYSTEM 01/19/2006 4:10 AM CDT us Harshad Heller MD HEMATOLOGY ORDERABLES Final Res ult INTERFACE SYSTEM Refer to clinic/hospital department * (ABNORMAL) CBC WITH DIFFERENTIAL (01/19/2006 4:10 AM CDT) NEUTROPHILS 79(H) 45 - 70 % INTERFAC E SYSTEM LYMPHOCYTES 11(L) 16 - 45 % INTERFAC E SYSTEM MONOCYTES 10 3 - 13 % INTERFACE SYSTEM EOSINOPHILS 0 0 - 7 % INTERFAC E SYSTEM BASOPHILS 0 0 - 2 % INTERFACE SYSTEM NEUTROPHIL ABSOLUTE 7.83(H) 1.90 - 7.00 K/uL INTERFACE SYSTEM LYMPHOCYTE ABSOLUTE 1.06 0.70 - 4.50 K/uL INTERFACE SYSTEM MONOCYTE ABSOLUTE 1.00 0.10 - 1.30 K/uL INTERFACE SYSTEM EOSINOPHIL ABSOLUTE 0.01 0.00 - 0.70 K/uL INTERFACE SYSTEM BASOPHILS ABSOLUTE 0.02 0.00 - 0.20 K/uL INTERFACE SYSTEM 01/19/2006 4:10 AM CDT Harshad Heller MD HEMATOLOGY ORDERABLES Final Res ult Performing Organization Address [facility] Phone Number INTERFACE SYSTEM Refer to clinic/hospital department * (ABNORMAL) CBC WITH DIFFERENTIAL (01/19/2006 4:10 AM CDT) WBC 9.9(H) 4.0 - 9.8 K/uL INTERFACE SYSTEM RBC 3.29(L) 4.50 - 5.40 M/uL INTERFACE SYSTEM HEMOGLOBIN 9.3(L) 13.6 - 16.5 g/dL INTERFACE SYSTEM HEMATOCRIT 30.4(L) 40.0 - 48.0 % INTERFACE SYSTEM MCV 92.4 82.0 - 99.0 fL INTERFACE SYSTEM MCH 28.3 27.2 - 32.6 pg INTERFACE SYSTEM MCHC 30.6(L) 31.5 - 35.5 % INTERFACE SYSTEM RDW 18.1(H) 11.5 - 14.5 % INTERFACE SYSTEM RDW-STDEV 60.9(H) 37.1 - 48.7 fL INTERFACE SYSTEM PLATELETS 224 140 - 350 K/uL INTERFACE SYSTEM MPV 10.3 9.3 - 12.4 fL INTERFACE SYSTEM 01/19/2006 4:10 AM CDT Harshad Heller MD HEMATOLOGY ORDERABLES Final Res ult Performing Organization Address [facility] Phone Number INTERFACE SYSTEM Refer to clinic/hospital department * (ABNORMAL) C-REACTIVE PROTEIN (01/19/2006 4:10 AM CDT) CRP 4.4(H) 0.0 - 0.8 mg/dL INTERFACE SYSTEM 01/19/2006 4:10 AM CDT Harshad Heller MD CHEMISTRY ORDERABLES Final Resu lt Performing Organization Address [facility] Phone Number INTERFACE SYSTEM Refer to clinic/hospital department * (ABNORMAL) PHOSPHORUS (01/19/2006 4:10 AM CDT) PHOSPHORUS 1.7(L) 2.5 - 4.5 mg/dL INTERFACE SYSTEM 01/19/2006 4:10 AM CDT Harshad Heller MD CHEMISTRY ORDERABLES Final Resu lt Performing Organization Address [facility] Phone Number INTERFACE SYSTEM Refer to clinic/hospital department * MAGNESIUM LEVEL (01/19/2006 4:10 AM CDT) MAGNESIUM 1.6 1.5 - 2.5 mg/dL INTERFACE SYSTEM 01/19/2006 4:10 AM CDT Harshad Heller MD CHEMISTRY ORDERABLES Final Resu lt Performing Organization Address [facility] Phone Number INTERFACE SYSTEM Refer to clinic/hospital department * CALCIUM IONIZED (01/19/2006 4:10 AM CDT) CALCIUM IONIZED 4.92 4.76 - 5.16 mg/dL INTERFACE SYSTEM 01/19/2006 4:10 AM CDT Harshad Heller MD CHEMISTRY ORDERABLES Final Resu lt Performing Organization Address [facility] Phone Number INTERFACE SYSTEM Refer to clinic/hospital department * (ABNORMAL) BASIC METABOLIC PANEL (01/19/2006 4:10 AM CDT) GLUCOSE 179(H) 65 - 99 mg/dL INTERFACE SYSTEM CREATININE 3.9(H) 0.5 - 1.3 mg/dL INTERFACE SYSTEM CALCIUM 8.2(L) 8.4 - 10.2 mg/dL INTERFACE SYSTEM BUN 38(H) 6 - 20 mg/dL INTERFACE SYSTEM SODIUM 140 135 - 145 mmol/L INTERFACE SYSTEM POTASSIUM 4.2 3.5 - 4.9 mmol/L INTERFACE SYSTEM CHLORIDE 101 96 - 108 mmol/L INTERFACE SYSTEM CO2 32(H) 22 - 30 mmol/L INTERFACE SYSTEM 01/19/2006 4:10 AM CDT Harshad Heller MD CHEMISTRY ORDERABLES Final Resu lt Performing Organization Address [facility] Phone Number INTERFACE SYSTEM Refer to clinic/hospital department * (ABNORMAL) PTT (01/18/2006 11:59 PM CDT) PTT 68.5(H) 24.4 - 36.4 Seconds INTERFACE SYSTEM Comment: PTT Therapeutic Range: Heparin Level ? PTT (seconds) <0.10 units/mL ? <53 0.10 - 0.30 units/mL ? 53 - 67 0.30 - 0.70 units/mL* ?67 - 95* 0.70 - 1.00 units/mL ?95 - 116 *corresponds to therapeutic range for unfractionated heparin ?? 01/18/2006 11:5 9 PM CDT Wicho Gomez MD HEMATOLOGY ORDERABLES Final R [facility] Performing Organization Address [facility] de Phone Number INTERFACE SYSTEM Refer to clinic/hospital department * (ABNORMAL) POC GLUCOSE (01/18/2006 11:48 PM CDT) GLUCOSE POC 164(H) 65 - 109 mg/dL INTERFACE SYSTEM 01/18/2006 11:4 8 PM CDT Wicho Gomez MD POINT OF CARE TESTING Final [facility] Performing Organization Address [facility] de Phone Number INTERFACE SYSTEM Refer to clinic/hospital department * (ABNORMAL) PTT (01/18/2006 6:35 PM CDT) PTT 54.4(H) 24.4 - 36.4 Seconds INTERFACE SYSTEM Comment: PTT Therapeutic Range: Heparin Level ? PTT (seconds) <0.10 units/mL ? <53 0.10 - 0.30 units/mL ? 53 - 67 0.30 - 0.70 units/mL* ?67 - 95* 0.70 - 1.00 units/mL ?95 - 116 *corresponds to therapeutic range for unfractionated heparin ?? 01/18/2006 6:35 PM CDT Wicho Gomez MD HEMATOLOGY ORDERABLES Final R [facility] Performing Organization Address [facility] Phone Number INTERFACE SYSTEM Refer to clinic/hospital department * (ABNORMAL) POC GLUCOSE (01/18/2006 5:33 PM CDT) GLUCOSE POC 183(H) 65 - 109 mg/dL INTERFACE SYSTEM 01/18/2006 5:33 PM CDT Wicho Gomez MD POINT OF CARE TESTING Final R [facility] Performing Organization Address [facility] Phone Number INTERFACE SYSTEM Refer to clinic/hospital department * (ABNORMAL) POC GLUCOSE (01/18/2006 11:12 AM CDT) GLUCOSE POC 164(H) 65 - 109 mg/dL INTERFACE SYSTEM 01/18/2006 11:1 2 AM CDT Wicho Gomez MD POINT OF CARE TESTING Final [facility] Performing Organization Address [facility] Phone Number INTERFACE SYSTEM Refer to clinic/hospital department * (ABNORMAL) PTT (01/18/2006 11:00 AM CDT) PTT 74.7(H) 24.4 - 36.4 Seconds INTERFACE SYSTEM Comment: PTT Therapeutic Range: Heparin Level ? PTT (seconds) <0.10 units/mL ? <53 0.10 - 0.30 units/mL ? 53 - 67 0.30 - 0.70 units/mL* ?67 - 95* 0.70 - 1.00 units/mL ?95 - 116 *corresponds to therapeutic range for unfractionated heparin ?? 01/18/2006 11:0 0 AM CDT us Wicho Gomez MD HEMATOLOGY ORDERABLES Final R esult Performing Organization Address [facility] Phone Number INTERFACE SYSTEM Refer to clinic/hospital department * (ABNORMAL) ALBUMIN LEVEL (01/18/2006 3:15 AM CDT) ALBUMIN 1.8(L) 3.4 - 4.8 g/dL INTERFACE SYSTEM 01/18/2006 3:15 AM CDT us Abhinav Barton MD CHEMISTRY ORDERABLES Final Result Performing Organization Address [facility] Phone Number INTERFACE SYSTEM Refer to clinic/hospital department * (ABNORMAL) PTT (01/18/2006 3:15 AM CDT) PTT 53.5(H) 24.4 - 36.4 Seconds INTERFACE SYSTEM Comment: PTT Therapeutic Range: Heparin Level ? PTT (seconds) <0.10 units/mL ? <53 0.10 - 0.30 units/mL ? 53 - 67 0.30 - 0.70 units/mL* ?67 - 95* 0.70 - 1.00 units/mL ?95 - 116 *corresponds to therapeutic range for unfractionated heparin ?? 01/18/2006 3:15 AM CDT us Harshad Heller MD HEMATOLOGY ORDERABLES Final Res ult Performing Organization Address [facility] Phone Number INTERFACE SYSTEM Refer to clinic/hospital department * (ABNORMAL) BLOOD GAS ARTERIAL (01/18/2006 3:15 AM CDT) PH ARTERIAL 7.42 7.35 - 7.45 INTERFACE SYSTEM PCO2 ARTERIAL 44 35 - 48 mm Hg INTERFACE SYSTEM PO2 ARTERIAL 175(H) 83 - 108 mm Hg INTERFACE SYSTEM SO2 ABG 99 95 - 99 % INTERFACE SYSTEM FO2HB ABG 98 94 - 98 % INTERFACE SYSTEM HCO3 ARTERIAL 28(H) 22 - 26 mmol/L INTERFACE SYSTEM BASE EXCESS ABG 3.0 -2.0 - 3.0 mmol/L INTERFACE SYSTEM O2 CONC ARTERIAL 40% INTERFACE SYSTEM 01/18/2006 3:15 AM CDT us iWcho Gomez MD ABG ORDERABLES Final Result Performing Organization Address [facility] de Phone Number INTERFACE SYSTEM Refer to clinic/hospital department * CBC WITH DIFFERENTIAL (01/18/2006 3:15 AM CDT) Pathologist [facility] ANISOCYTOSIS Slight INTERFA CE SYSTEM POIKILOCYTES Slight INTERFA CE SYSTEM POLYCHROMASIA Slight INTERF CINDY SYSTEM BASOPHILIC STIPPLING Slight INTERFACE SYSTEM OVALOCYTES Slight INTERFACE SYSTEM 01/18/2006 3:15 AM CDT us Harshad Heller MD HEMATOLOGY ORDERABLES Final Res ult Performing Organization Address [facility] de Phone Number INTERFACE SYSTEM Refer to clinic/hospital department * (ABNORMAL) CBC WITH DIFFERENTIAL (01/18/2006 3:15 AM CDT) NEUTROPHILS 76(H) 45 - 70 % INTERFAC E SYSTEM LYMPHOCYTES 13(L) 16 - 45 % INTERFAC E SYSTEM MONOCYTES 11 3 - 13 % INTERFACE SYSTEM EOSINOPHILS 0 0 - 7 % INTERFAC E SYSTEM BASOPHILS 0 0 - 2 % INTERFACE SYSTEM NEUTROPHIL ABSOLUTE 6.87 1.90 - 7.00 K/uL INTERFACE SYSTEM LYMPHOCYTE ABSOLUTE 1.21 0.70 - 4.50 K/uL INTERFACE SYSTEM MONOCYTE ABSOLUTE 0.97 0.10 - 1.30 K/uL INTERFACE SYSTEM EOSINOPHIL ABSOLUTE 0.01 0.00 - 0.70 K/uL INTERFACE SYSTEM BASOPHILS ABSOLUTE 0.02 0.00 - 0.20 K/uL INTERFACE SYSTEM 01/18/2006 3:15 AM CDT Harshad Heller MD HEMATOLOGY ORDERABLES Final Res ult Performing Organization Address City/[facility] Co de Phone Number INTERFACE SYSTEM Refer to clinic/hospital department * (ABNORMAL) CBC WITH DIFFERENTIAL (01/18/2006 3:15 AM CDT) WBC 9.1 4.0 - 9.8 K/uL INTERFACE SYSTEM RBC 3.42(L) 4.50 - 5.40 M/uL INTERFACE SYSTEM HEMOGLOBIN 10.0(L) 13.6 - 16.5 g/dL INTERFACE SYSTEM HEMATOCRIT 31.4(L) 40.0 - 48.0 % INTERFACE SYSTEM MCV 91.8 82.0 - 99.0 fL INTERFACE SYSTEM MCH 29.2 27.2 - 32.6 pg INTERFACE SYSTEM MCHC 31.8 31.5 - 35.5 % INTERFACE SYSTEM RDW 18.6(H) 11.5 - 14.5 % INTERFACE SYSTEM RDW-STDEV 60.8(H) 37.1 - 48.7 fL INTERFACE SYSTEM PLATELETS 245 140 - 350 K/uL INTERFACE SYSTEM MPV 10.5 9.3 - 12.4 fL INTERFACE SYSTEM 01/18/2006 3:15 AM CDT Harshad Heller MD HEMATOLOGY ORDERABLES Final Res ult Performing Organization Address [facility] Phone Number INTERFACE SYSTEM Refer to clinic/hospital department * (ABNORMAL) CALCIUM IONIZED (01/18/2006 3:15 AM CDT) CALCIUM IONIZED 4.64(L) 4.76 - 5.16 mg/dL INTERFACE SYSTEM 01/18/2006 3:15 AM CDT Harshad Heller MD CHEMISTRY ORDERABLES Final Resu lt Performing Organization Address City/[facility] Co de Phone Number INTERFACE SYSTEM Refer to clinic/hospital department * PHOSPHORUS (01/18/2006 3:15 AM CDT) PHOSPHORUS 2.5 2.5 - 4.5 mg/dL INTERFACE SYSTEM 01/18/2006 3:15 AM CDT Harshad Heller MD CHEMISTRY ORDERABLES Final Resu lt Performing Organization Address [facility] Phone Number INTERFACE SYSTEM Refer to clinic/hospital department * MAGNESIUM LEVEL (01/18/2006 3:15 AM CDT) MAGNESIUM 1.9 1.5 - 2.5 mg/dL INTERFACE SYSTEM 01/18/2006 3:15 AM CDT us Harshad Heller MD CHEMISTRY ORDERABLES Final Resu lt Performing Organization Address [facility] Phone Number INTERFACE SYSTEM Refer to clinic/hospital department * (ABNORMAL) BASIC METABOLIC PANEL (01/18/2006 3:15 AM CDT) GLUCOSE 162(H) 65 - 99 mg/dL INTERFACE SYSTEM CREATININE 5.0(H) 0.5 - 1.3 mg/dL INTERFACE SYSTEM CALCIUM 8.2(L) 8.4 - 10.2 mg/dL INTERFACE SYSTEM BUN 51(H) 6 - 20 mg/dL INTERFACE SYSTEM SODIUM 140 135 - 145 mmol/L INTERFACE SYSTEM POTASSIUM 3.9 3.5 - 4.9 mmol/L INTERFACE SYSTEM CHLORIDE 103 96 - 108 mmol/L INTERFACE SYSTEM CO2 28 22 - 30 mmol/L INTERFACE SYSTEM 01/18/2006 3:15 AM CDT Harshad Heller MD CHEMISTRY ORDERABLES Final Resu lt Performing Organization Address [facility] Phone Number INTERFACE SYSTEM Refer to clinic/hospital department * (ABNORMAL) POC GLUCOSE (01/17/2006 11:55 PM CDT) GLUCOSE POC 187(H) 65 - 109 mg/dL INTERFACE SYSTEM 01/17/2006 11:5 5 PM CDT Wicho Gomez MD POINT OF CARE TESTING Final R esult Performing Organization Address [facility] de Phone Number INTERFACE SYSTEM Refer to clinic/hospital department * (ABNORMAL) PTT (01/17/2006 8:30 PM CDT) PTT 122.1(AA) 24.4 - 36.4 Seconds INTERFACE SYSTEM Comment: PTT Therapeutic Range: Heparin Level ? PTT (seconds) <0.10 units/mL ? <53 0.10 - 0.30 units/mL ? 53 - 67 0.30 - 0.70 units/mL* ?67 - 95* 0.70 - 1.00 units/mL ?95 - 116 *corresponds to therapeutic range for unfractionated heparin ?? Results called to katie at 01/17/2006 9:11 PM and read back verified. Verified by repeat analysis. 01/17/2006 8:30 PM CDT us Harshad Heller MD HEMATOLOGY ORDERABLES Final Res ult Performing Organization Address [facility] Phone Number INTERFACE SYSTEM Refer to clinic/hospital department * (ABNORMAL) POC GLUCOSE (01/17/2006 6:27 PM CDT) GLUCOSE POC 161(H) 65 - 109 mg/dL INTERFACE SYSTEM 01/17/2006 6:27 PM CDT us Wicho Gomez MD POINT OF CARE TESTING Final R esult Performing Organization Address [facility] Phone Number INTERFACE SYSTEM Refer to clinic/hospital department * (ABNORMAL) POC GLUCOSE (01/17/2006 12:51 PM CDT) GLUCOSE POC 114(H) 65 - 109 mg/dL INTERFACE SYSTEM 01/17/2006 12:5 1 PM CDT us Wicho Gomez MD POINT OF CARE TESTING Final R esult Performing Organization Address [facility] de Phone Number INTERFACE SYSTEM Refer to clinic/hospital department * (ABNORMAL) PTT (01/17/2006 5:35 AM CDT) PTT 84.9(H) 24.4 - 36.4 Seconds INTERFACE SYSTEM Comment: PTT Therapeutic Range: Heparin Level ? PTT (seconds) <0.10 units/mL ? <53 0.10 - 0.30 units/mL ? 53 - 67 0.30 - 0.70 units/mL* ?67 - 95* 0.70 - 1.00 units/mL ?95 - 116 *corresponds to therapeutic range for unfractionated heparin ?? 01/17/2006 5:35 AM CDT Wicho Gomez MD HEMATOLOGY ORDERABLES Final R esult Performing Organization Address [facility] de Phone Number INTERFACE SYSTEM Refer to clinic/hospital department * CBC WITH DIFFERENTIAL (01/17/2006 3:30 AM CDT) ANISOCYTOSIS Slight INTERFA CE SYSTEM POIKILOCYTES Slight INTERFA CE SYSTEM MACROCYTES Slight INTERFACE SYSTEM HYPOCHROMIA Slight INTERFAC E SYSTEM OVALOCYTES Slight INTERFACE SYSTEM 01/17/2006 3:30 AM CDT Wicho Gomez MD HEMATOLOGY ORDERABLES Final R esult Performing Organization Address [facility] de Phone Number INTERFACE SYSTEM Refer to clinic/hospital department * (ABNORMAL) CBC WITH DIFFERENTIAL (01/17/2006 3:30 AM CDT) NEUTROPHILS 77(H) 45 - 70 % INTERFAC E SYSTEM LYMPHOCYTES 13(L) 16 - 45 % INTERFAC E SYSTEM MONOCYTES 10 3 - 13 % INTERFACE SYSTEM EOSINOPHILS 0 0 - 7 % INTERFAC E SYSTEM BASOPHILS 0 0 - 2 % INTERFACE SYSTEM NEUTROPHIL ABSOLUTE 5.39 1.90 - 7.00 K/uL INTERFACE SYSTEM LYMPHOCYTE ABSOLUTE 0.88 0.70 - 4.50 K/uL INTERFACE SYSTEM MONOCYTE ABSOLUTE 0.70 0.10 - 1.30 K/uL INTERFACE SYSTEM EOSINOPHIL ABSOLUTE 0.00 0.00 - 0.70 K/uL INTERFACE SYSTEM BASOPHILS ABSOLUTE 0.02 0.00 - 0.20 K/uL INTERFACE SYSTEM 01/17/2006 3:30 AM CDT Wicho Gomez MD HEMATOLOGY ORDERABLES Final R esult Performing Organization Address [place]/[facility] de Phone Number INTERFACE SYSTEM Refer to clinic/hospital department * (ABNORMAL) CBC WITH DIFFERENTIAL (01/17/2006 3:30 AM CDT) WBC 7.0 4.0 - 9.8 K/uL INTERFACE SYSTEM RBC 3.25(L) 4.50 - 5.40 M/uL INTERFACE SYSTEM HEMOGLOBIN 9.6(L) 13.6 - 16.5 g/dL INTERFACE SYSTEM HEMATOCRIT 29.7(L) 40.0 - 48.0 % INTERFACE SYSTEM MCV 91.4 82.0 - 99.0 fL INTERFACE SYSTEM MCH 29.5 27.2 - 32.6 pg INTERFACE SYSTEM MCHC 32.3 31.5 - 35.5 % INTERFACE SYSTEM RDW 18.7(H) 11.5 - 14.5 % INTERFACE SYSTEM RDW-STDEV 61.1(H) 37.1 - 48.7 fL INTERFACE SYSTEM PLATELETS 199 140 - 350 K/uL INTERFACE SYSTEM MPV 10.2 9.3 - 12.4 fL INTERFACE SYSTEM 01/17/2006 3:30 AM CDT Wicho Gomez MD HEMATOLOGY ORDERABLES Final R esult Performing Organization Address [place]/[facility] de Phone Number INTERFACE SYSTEM Refer to clinic/hospital department * PHOSPHORUS (01/17/2006 3:30 AM CDT) PHOSPHORUS 3.8 2.5 - 4.5 mg/dL INTERFACE SYSTEM 01/17/2006 3:30 AM CDT Wicho Gomez MD CHEMISTRY ORDERABLES Final Re sult Performing Organization Address [facility] de Phone Number INTERFACE SYSTEM Refer to clinic/hospital department * MAGNESIUM LEVEL (01/17/2006 3:30 AM CDT) MAGNESIUM 2.0 1.5 - 2.5 mg/dL INTERFACE SYSTEM 01/17/2006 3:30 AM CDT Wicho Gomez MD CHEMISTRY ORDERABLES Final Re sult Performing Organization Address [facility] Phone Number INTERFACE SYSTEM Refer to clinic/hospital department * (ABNORMAL) CALCIUM IONIZED (01/17/2006 3:30 AM CDT) CALCIUM IONIZED 4.48(L) 4.76 - 5.16 mg/dL INTERFACE SYSTEM 01/17/2006 3:30 AM CDT Wicho Gomez MD CHEMISTRY ORDERABLES Final Re sult Performing Organization Address [facility] Phone Number INTERFACE SYSTEM Refer to clinic/hospital department * (ABNORMAL) BASIC METABOLIC PANEL (01/17/2006 3:30 AM CDT) GLUCOSE 132(H) 65 - 99 mg/dL INTERFACE SYSTEM CREATININE 6.1(H) 0.5 - 1.3 mg/dL INTERFACE SYSTEM CALCIUM 7.8(L) 8.4 - 10.2 mg/dL INTERFACE SYSTEM BUN 60(H) 6 - 20 mg/dL INTERFACE SYSTEM SODIUM 145 135 - 145 mmol/L INTERFACE SYSTEM POTASSIUM 3.5 3.5 - 4.9 mmol/L INTERFACE SYSTEM CHLORIDE 108 96 - 108 mmol/L INTERFACE SYSTEM CO2 26 22 - 30 mmol/L INTERFACE SYSTEM 01/17/2006 3:30 AM CDT Wicho Gomez MD CHEMISTRY ORDERABLES Final Re sult Performing Organization Address [facility] Phone Number INTERFACE SYSTEM Refer to clinic/hospital department * (ABNORMAL) PTT (01/16/2006 11:50 PM CDT) PTT 67.1(H) 24.4 - 36.4 Seconds INTERFACE SYSTEM Comment: PTT Therapeutic Range: Heparin Level ? PTT (seconds) <0.10 units/mL ? <53 0.10 - 0.30 units/mL ? 53 - 67 0.30 - 0.70 units/mL* ?67 - 95* 0.70 - 1.00 units/mL ?95 - 116 *corresponds to therapeutic range for unfractionated heparin ?? 01/16/2006 11:5 0 PM CDT Wicho Gomez MD HEMATOLOGY ORDERABLES Final [facility] Performing Organization Address [facility] Phone Number INTERFACE SYSTEM Refer to clinic/hospital department * (ABNORMAL) POC GLUCOSE (01/16/2006 11:49 PM CDT) GLUCOSE POC 145(H) 65 - 109 mg/dL INTERFACE SYSTEM 01/16/2006 11:4 9 PM CDT Wicho Gomez MD POINT OF CARE TESTING Final [facility] Organization Address [facility] Phone Number INTERFACE SYSTEM Refer to clinic/hospital department * POC GLUCOSE (01/16/2006 5:36 PM CDT) GLUCOSE POC 99 65 - 109 mg/dL INTERFACE SYSTEM COMMENT 4, GLU POC Rptd gluc at no charge INTERFACE SYSTEM 01/16/2006 5:36 PM CDT Wicho Gomez MD POINT OF CARE TESTING Final [facility] Performing Organization Address [facility] Phone Number INTERFACE SYSTEM Refer to clinic/hospital department * (ABNORMAL) POC GLUCOSE (01/16/2006 5:32 PM CDT) COMMENT, GLU POC To Be Repeated INTERFACE SYSTEM GLUCOSE POC 57(L) 65 - 109 mg/dL INTERFACE SYSTEM 01/16/2006 5:32 PM CDT Wicho Gomez MD POINT OF CARE TESTING Final R [facility] Performing Organization Address [facility] Phone Number INTERFACE SYSTEM Refer to clinic/hospital department * (ABNORMAL) PTT (01/16/2006 1:08 PM CDT) PTT 49.8(H) 24.4 - 36.4 Seconds INTERFACE SYSTEM Comment: PTT Therapeutic Range: Heparin Level ? PTT (seconds) <0.10 units/mL ? <53 0.10 - 0.30 units/mL ? 53 - 67 0.30 - 0.70 units/mL* ?67 - 95* 0.70 - 1.00 units/mL ?95 - 116 *corresponds to therapeutic range for unfractionated heparin ?? 01/16/2006 1:08 PM CDT Wicho Gomez MD HEMATOLOGY ORDERABLES Final R [facility] Performing Organization Address [facility] Phone Number INTERFACE SYSTEM Refer to clinic/hospital department * (ABNORMAL) POC GLUCOSE (01/16/2006 11:57 AM CDT) GLUCOSE POC 168(H) 65 - 109 mg/dL INTERFACE SYSTEM 01/16/2006 11:5 7 AM CDT Wicho Gomez MD POINT OF CARE TESTING Final R [facility] Performing Organization Address [facility] Phone Number INTERFACE SYSTEM Refer to clinic/hospital department * (ABNORMAL) POC GLUCOSE (01/16/2006 5:23 AM CDT) GLUCOSE POC 162(H) 65 - 109 mg/dL INTERFACE SYSTEM 01/16/2006 5:23 AM CDT Wicho Gomez MD POINT OF CARE TESTING Final R esult Performing Organization Address [facility] de Phone Number INTERFACE SYSTEM Refer to clinic/hospital department * (ABNORMAL) PTT (01/16/2006 3:00 AM CDT) Pathologist [facility] PTT 54.6(H) 24.4 - 36.4 Seconds INTERFACE SYSTEM Comment: PTT Therapeutic Range: Heparin Level ? PTT (seconds) <0.10 units/mL ? <53 0.10 - 0.30 units/mL ? 53 - 67 0.30 - 0.70 units/mL* ?67 - 95* 0.70 - 1.00 units/mL ?95 - 116 *corresponds to therapeutic range for unfractionated heparin ?? 01/16/2006 3:00 AM CDT Wicho Gomez MD HEMATOLOGY ORDERABLES Final R esult Performing Organization Address [facility] de Phone Number INTERFACE SYSTEM Refer to clinic/hospital department * (ABNORMAL) CBC WITH DIFFERENTIAL (01/16/2006 3:00 AM CDT) [facility] NEUTROPHIL ABSOLUTE 5.94 1.90 - 7.00 K/uL INTERFACE SYSTEM LYMPHOCYTE ABSOLUTE 0.40(L) 0.70 - 4.50 K/uL INTERFACE SYSTEM MONOCYTE ABSOLUTE 0.20 0.10 - 1.30 K/uL INTERFACE SYSTEM EOSINOPHIL ABSOLUTE 0.00 0.00 - 0.70 K/uL INTERFACE SYSTEM BASOPHILS ABSOLUTE 0.07 0.00 - 0.20 K/uL INTERFACE SYSTEM NEUTROPHILS, SEG 89(H) 45 - 70 % INT ERFACE SYSTEM BANDS 1 0 - 5 % INTERFACE SYSTEM LYMPHOCYTES 5(L) 16 - 45 % INTERFAC E SYSTEM MONOCYTES 3 3 - 13 % INTERFACE SYSTEM EOSINOPHILS 0 0 - 7 % INTERFAC E SYSTEM BASOPHILS 1 0 - 2 % INTERFACE SYSTEM ATYPICAL LYMPHOCYTE 1 0 - 5 % INTERFACE SYSTEM PLATELET EST. Consistent w/ count Normal INTERFACE SYSTEM ANISOCYTOSIS Slight INTERFA CE SYSTEM POIKILOCYTES Slight INTERFA CE SYSTEM POLYCHROMASIA Slight INTERF CINDY SYSTEM BASOPHILIC STIPPLING Slight INTERFACE SYSTEM OVALOCYTES Slight INTERFACE SYSTEM 01/16/2006 3:00 AM CDT Wicho Gomez MD HEMATOLOGY ORDERABLES Final R esult Performing Organization Address [facility] de Phone Number INTERFACE SYSTEM Refer to clinic/hospital department * (ABNORMAL) CBC WITH DIFFERENTIAL (01/16/2006 3:00 AM CDT) WBC 6.6 4.0 - 9.8 K/uL INTERFACE SYSTEM RBC 2.84(L) 4.50 - 5.40 M/uL INTERFACE SYSTEM HEMOGLOBIN 8.2(L) 13.6 - 16.5 g/dL INTERFACE SYSTEM HEMATOCRIT 26.0(L) 40.0 - 48.0 % INTERFACE SYSTEM MCV 91.5 82.0 - 99.0 fL INTERFACE SYSTEM MCH 28.9 27.2 - 32.6 pg INTERFACE SYSTEM MCHC 31.5 31.5 - 35.5 % INTERFACE SYSTEM RDW 18.2(H) 11.5 - 14.5 % INTERFACE SYSTEM RDW-STDEV 59.4(H) 37.1 - 48.7 fL INTERFACE SYSTEM PLATELETS 199 140 - 350 K/uL INTERFACE SYSTEM MPV 10.0 9.3 - 12.4 fL INTERFACE SYSTEM 01/16/2006 3:00 AM CDT Wicho Gomez MD HEMATOLOGY ORDERABLES Final R esult Performing Organization Address [facility] Phone Number INTERFACE SYSTEM Refer to clinic/hospital department * (ABNORMAL) PREALBUMIN (01/16/2006 3:00 AM CDT) PREALBUMIN 19(L) 20 - 40 mg/dL INTERFACE SYSTEM 01/16/2006 3:00 AM CDT Wicho Gomez MD CHEMISTRY ORDERABLES Final Re sult Performing Organization Address [place]/[facility] de Phone Number INTERFACE SYSTEM Refer to clinic/hospital department * PHOSPHORUS (01/16/2006 3:00 AM CDT) PHOSPHORUS 2.8 2.5 - 4.5 mg/dL INTERFACE SYSTEM 01/16/2006 3:00 AM CDT us Wicho Gomez MD CHEMISTRY ORDERABLES Final Re sult Performing Organization Address [facility] Phone Number INTERFACE SYSTEM Refer to clinic/hospital department * MAGNESIUM LEVEL (01/16/2006 3:00 AM CDT) MAGNESIUM 2.0 1.5 - 2.5 mg/dL INTERFACE SYSTEM 01/16/2006 3:00 AM CDT us Wicho Gomez MD CHEMISTRY ORDERABLES Final Re sult Performing Organization Address [facility] Phone Number INTERFACE SYSTEM Refer to clinic/hospital department * (ABNORMAL) CALCIUM IONIZED (01/16/2006 3:00 AM CDT) CALCIUM IONIZED 4.68(L) 4.76 - 5.16 mg/dL INTERFACE SYSTEM 01/16/2006 3:00 AM CDT us Wicho Gomez MD CHEMISTRY ORDERABLES Final Re sult Performing Organization Address [facility] Phone Number INTERFACE SYSTEM Refer to clinic/hospital department * (ABNORMAL) COMPREHENSIVE METABOLIC PANEL (01/16/2006 3:00 AM CDT) GLUCOSE 135(H) 65 - 99 mg/dL INTERFACE SYSTEM CREATININE 5.4(H) 0.5 - 1.3 mg/dL INTERFACE SYSTEM Comment:Significant change f rom prior result, correlate clinically and redraw if necessary. CALCIUM 7.8(L) 8.4 - 10.2 mg/dL INTERFACE SYSTEM ALKALINE PHOSPHATASE 77 40 - 129 U/L INTERFACE SYSTEM AST 7(L) 12 - 38 U/L INTERFACE SYSTEM ALT 19 0 - 41 U/L INTERFACE SYSTEM TOTAL PROTEIN 4.4(L) 6.3 - 8.6 g/dL INTERFACE SYSTEM ALBUMIN 1.6(L) 3.4 - 4.8 g/dL INTERFACE SYSTEM BILIRUBIN TOTAL 0.4 0.2 - 1.0 mg/dL INTERFACE SYSTEM BUN 50(H) 6 - 20 mg/dL INTERFACE SYSTEM SODIUM 146(H) 135 - 145 mmol/L INTERFACE SYSTEM POTASSIUM 3.3(L) 3.5 - 4.9 mmol/L INTERFACE SYSTEM CHLORIDE 107 96 - 108 mmol/L INTERFACE SYSTEM CO2 29 22 - 30 mmol/L INTERFACE SYSTEM 01/16/2006 3:00 AM CDT Wicho Gomez MD CHEMISTRY ORDERABLES Final Re sult Performing Organization Address [facility] Phone Number INTERFACE SYSTEM Refer to clinic/hospital department * (ABNORMAL) POC GLUCOSE (01/15/2006 11:49 PM CDT) GLUCOSE POC 148(H) 65 - 109 mg/dL INTERFACE SYSTEM 01/15/2006 11:4 9 PM CDT Wicho Gomez MD POINT OF CARE TESTING Final [place] Performing Organization Address [facility] Phone Number INTERFACE SYSTEM Refer to clinic/hospital department * (ABNORMAL) POC GLUCOSE (01/15/2006 5:50 PM CDT) GLUCOSE POC 160(H) 65 - 109 mg/dL INTERFACE SYSTEM 01/15/2006 5:50 PM CDT Wicho Gomez MD POINT OF CARE TESTING Final [place] Performing Organization Address [facility] Phone Number INTERFACE SYSTEM Refer to clinic/hospital department * (ABNORMAL) PTT (01/15/2006 1:30 PM CDT) PTT 71.1(H) 24.4 - 36.4 Seconds INTERFACE SYSTEM Comment: PTT Therapeutic Range: Heparin Level ? PTT (seconds) <0.10 units/mL ? <53 0.10 - 0.30 units/mL ? 53 - 67 0.30 - 0.70 units/mL* ?67 - 95* 0.70 - 1.00 units/mL ?95 - 116 *corresponds to therapeutic range for unfractionated heparin ?? 01/15/2006 1:30 PM CDT Wicho Gomez MD HEMATOLOGY ORDERABLES Final R [facility] Performing Organization Address [facility] Phone Number INTERFACE SYSTEM Refer to clinic/hospital department * (ABNORMAL) POC GLUCOSE (01/15/2006 12:22 PM CDT) GLUCOSE POC 155(H) 65 - 109 mg/dL INTERFACE SYSTEM 01/15/2006 12:2 2 PM CDT Wicho Gomez MD POINT OF CARE TESTING Final [facility] Performing Organization Address [facility] Phone Number INTERFACE SYSTEM Refer to clinic/hospital department * (ABNORMAL) PTT (01/15/2006 3:30 AM CDT) PTT 67.6(H) 24.4 - 36.4 Seconds INTERFACE SYSTEM Comment: PTT Therapeutic Range: Heparin Level ? PTT (seconds) <0.10 units/mL ? <53 0.10 - 0.30 units/mL ? 53 - 67 0.30 - 0.70 units/mL* ?67 - 95* 0.70 - 1.00 units/mL ?95 - 116 *corresponds to therapeutic range for unfractionated heparin ?? 01/15/2006 3:30 AM CDT Wicho Gomez MD HEMATOLOGY ORDERABLES Final R formerly [facility] Performing Organization Address [facility] Phone Number INTERFACE SYSTEM Refer to clinic/hospital department * (ABNORMAL) BLOOD GAS ARTERIAL (01/15/2006 3:30 AM CDT) PH ARTERIAL 7.46(H) 7.35 - 7.45 INTERFACE SYSTEM PCO2 ARTERIAL 45 35 - 48 mm Hg INTERFACE SYSTEM PO2 ARTERIAL 100 83 - 108 mm Hg INTERFACE SYSTEM SO2 ABG 98 95 - 99 % INTERFACE SYSTEM FO2HB ABG 97 94 - 98 % INTERFACE SYSTEM HCO3 ARTERIAL 31(H) 22 - 26 mmol/L INTERFACE SYSTEM BASE EXCESS ABG 6.5(H) -2.0 - 3.0 mmol/L INTERFACE SYSTEM O2 CONC ARTERIAL 40 INTERFACE SYSTEM 01/15/2006 3:30 AM CDT Wicho Gomez MD ABG ORDERABLES Final Result Performing Organization Address [facility] de Phone Number INTERFACE SYSTEM Refer to clinic/hospital department * (ABNORMAL) CBC WITH DIFFERENTIAL (01/15/2006 3:30 AM CDT) NEUTROPHIL ABSOLUTE 6.34 1.90 - 7.00 K/uL INTERFACE SYSTEM LYMPHOCYTE ABSOLUTE 0.43(L) 0.70 - 4.50 K/uL INTERFACE SYSTEM MONOCYTE ABSOLUTE 0.36 0.10 - 1.30 K/uL INTERFACE SYSTEM EOSINOPHIL ABSOLUTE 0.00 0.00 - 0.70 K/uL INTERFACE SYSTEM BASOPHILS ABSOLUTE 0.00 0.00 - 0.20 K/uL INTERFACE SYSTEM NEUTROPHILS, SEG 83(H) 45 - 70 % INT ERFACE SYSTEM BANDS 5 0 - 5 % INTERFACE SYSTEM LYMPHOCYTES 6(L) 16 - 45 % INTERFAC E SYSTEM MONOCYTES 5 3 - 13 % INTERFACE SYSTEM EOSINOPHILS 0 0 - 7 % INTERFAC E SYSTEM BASOPHILS 0 0 - 2 % INTERFACE SYSTEM METAMYELOCYTE 1(H) <=0 % INTERF CINDY SYSTEM PLATELET EST. Consistent w/ count Normal INTERFACE SYSTEM ANISOCYTOSIS Slight INTERFA CE SYSTEM POIKILOCYTES Slight INTERFA CE SYSTEM POLYCHROMASIA Slight INTERF CINDY SYSTEM BASOPHILIC STIPPLING Slight INTERFACE SYSTEM HYPOCHROMIA Slight INTERFAC E SYSTEM 01/15/2006 3:30 AM CDT Wicho Gomez MD HEMATOLOGY ORDERABLES Final R esult Performing Organization Address [facility] Co de Phone Number INTERFACE SYSTEM Refer to clinic/hospital department * (ABNORMAL) CBC WITH DIFFERENTIAL (01/15/2006 3:30 AM CDT) WBC 7.2 4.0 - 9.8 K/uL INTERFACE SYSTEM RBC 3.11(L) 4.50 - 5.40 M/uL INTERFACE SYSTEM HEMOGLOBIN 9.2(L) 13.6 - 16.5 g/dL INTERFACE SYSTEM HEMATOCRIT 28.4(L) 40.0 - 48.0 % INTERFACE SYSTEM MCV 91.3 82.0 - 99.0 fL INTERFACE SYSTEM MCH 29.6 27.2 - 32.6 pg INTERFACE SYSTEM MCHC 32.4 31.5 - 35.5 % INTERFACE SYSTEM RDW 18.0(H) 11.5 - 14.5 % INTERFACE SYSTEM RDW-STDEV 57.0(H) 37.1 - 48.7 fL INTERFACE SYSTEM PLATELETS 181 140 - 350 K/uL INTERFACE SYSTEM MPV 10.5 9.3 - 12.4 fL INTERFACE SYSTEM 01/15/2006 3:30 AM CDT Wicho Gomez MD HEMATOLOGY ORDERABLES Final R esult Performing Organization Address City/[facility] [place] Phone Number INTERFACE SYSTEM Refer to clinic/hospital department * (ABNORMAL) T4 FREE (01/15/2006 3:30 AM CDT) Pathologist [facility] T4 FREE 0.8(L) 0.9 - 1.7 ng/dL INTERFACE SYSTEM 01/15/2006 3:30 AM CDT Wicho Gomez MD CHEMISTRY ORDERABLES Final Re sult Performing Organization Address City/[facility] Co de Phone Number INTERFACE SYSTEM Refer to clinic/hospital department * (ABNORMAL) TSH (01/15/2006 3:30 AM CDT) TSH 5.21(H) 0.27 - 4.20 uU/mL INTERFACE SYSTEM 01/15/2006 3:30 AM CDT Wicho Gomez MD CHEMISTRY ORDERABLES Final Re sult Performing Organization Address [facility] Phone Number INTERFACE SYSTEM Refer to clinic/hospital department * (ABNORMAL) CALCIUM IONIZED (01/15/2006 3:30 AM CDT) CALCIUM IONIZED 4.68(L) 4.76 - 5.16 mg/dL INTERFACE SYSTEM 01/15/2006 3:30 AM CDT Wicho Gomez MD CHEMISTRY ORDERABLES Final Re sult Performing Organization Address [facility] Phone Number INTERFACE SYSTEM Refer to clinic/hospital department * (ABNORMAL) PHOSPHORUS (01/15/2006 3:30 AM CDT) PHOSPHORUS 2.0(L) 2.5 - 4.5 mg/dL INTERFACE SYSTEM 01/15/2006 3:30 AM CDT Wicho Gomez MD CHEMISTRY ORDERABLES Final Re sult Performing Organization Address [facility] Phone Number INTERFACE SYSTEM Refer to clinic/hospital department * MAGNESIUM LEVEL (01/15/2006 3:30 AM CDT) MAGNESIUM 1.6 1.5 - 2.5 mg/dL INTERFACE SYSTEM 01/15/2006 3:30 AM CDT Wicho Gomez MD CHEMISTRY ORDERABLES Final Re sult Performing Organization Address [facility] INTERFACE SYSTEM Refer to clinic/hospital department * (ABNORMAL) BASIC METABOLIC PANEL (01/15/2006 3:30 AM CDT) GLUCOSE 151(H) 65 - 99 mg/dL INTERFACE SYSTEM CREATININE 4.2(H) 0.5 - 1.3 mg/dL INTERFACE SYSTEM CALCIUM 7.9(L) 8.4 - 10.2 mg/dL INTERFACE SYSTEM BUN 37(H) 6 - 20 mg/dL INTERFACE SYSTEM SODIUM 146(H) 135 - 145 mmol/L INTERFACE SYSTEM POTASSIUM 3.4(L) 3.5 - 4.9 mmol/L INTERFACE SYSTEM CHLORIDE 106 96 - 108 mmol/L INTERFACE SYSTEM CO2 32(H) 22 - 30 mmol/L INTERFACE SYSTEM 01/15/2006 3:30 AM CDT Wicho Gomez MD CHEMISTRY ORDERABLES Final Re sult Performing Organization Address [facility] Phone Number INTERFACE SYSTEM Refer to clinic/hospital department * (ABNORMAL) POC GLUCOSE (01/14/2006 11:16 PM CDT) GLUCOSE POC 116(H) 65 - 109 mg/dL INTERFACE SYSTEM 01/14/2006 11:1 6 PM CDT us Wicho Gomez MD POINT OF CARE TESTING Final R esult Performing Organization Address [facility] Phone Number INTERFACE SYSTEM Refer to clinic/hospital department * (ABNORMAL) PTT (01/14/2006 9:22 PM CDT) PTT 72.0(H) 24.4 - 36.4 Seconds INTERFACE SYSTEM Comment: PTT Therapeutic Range: Heparin Level ? PTT (seconds) <0.10 units/mL ? <53 0.10 - 0.30 units/mL ? 53 - 67 0.30 - 0.70 units/mL* ?67 - 95* 0.70 - 1.00 units/mL ?95 - 116 *corresponds to therapeutic range for unfractionated heparin ?? 01/14/2006 9:22 PM CDT us Wicho Gomez MD HEMATOLOGY ORDERABLES Final R esult Performing Organization Address [facility] Phone Number INTERFACE SYSTEM Refer to clinic/hospital department * (ABNORMAL) POC GLUCOSE (01/14/2006 5:14 PM CDT) GLUCOSE POC 136(H) 65 - 109 mg/dL INTERFACE SYSTEM 01/14/2006 5:14 PM CDT Result [facility] Wicho Gomez MD POINT OF CARE TESTING [facility] Performing Organization Address [facility] Phone Number INTERFACE SYSTEM Refer to clinic/hospital department * (ABNORMAL) PTT (01/14/2006 4:11 PM CDT) PTT 58.7(H) 24.4 - 36.4 Seconds INTERFACE SYSTEM Comment: PTT Therapeutic Range: Heparin Level ? PTT (seconds) <0.10 units/mL ? <53 0.10 - 0.30 units/mL ? 53 - 67 0.30 - 0.70 units/mL* ?67 - 95* 0.70 - 1.00 units/mL ?95 - 116 *corresponds to therapeutic range for unfractionated heparin ?? 01/14/2006 4:11 PM CDT Result [facility] Wicho Gomez MD HEMATOLOGY ORDERABLES Final [facility] Performing Organization Address [facility] Phone Number INTERFACE SYSTEM Refer to clinic/hospital department * (ABNORMAL) POC GLUCOSE (01/14/2006 12:12 PM CDT) GLUCOSE POC 114(H) 65 - 109 mg/dL INTERFACE SYSTEM 01/14/2006 12:1 2 PM CDT Wicho Gomez MD POINT OF CARE TESTING [facility] Performing Organization Address [facility] Phone Number INTERFACE SYSTEM Refer to clinic/hospital department * (ABNORMAL) PTT (01/14/2006 10:25 AM CDT) PTT 73.3(H) 24.4 - 36.4 Seconds INTERFACE SYSTEM Comment: PTT Therapeutic Range: Heparin Level ? PTT (seconds) <0.10 units/mL ? <53 0.10 - 0.30 units/mL ? 53 - 67 0.30 - 0.70 units/mL* ?67 - 95* 0.70 - 1.00 units/mL ?95 - 116 *corresponds to therapeutic range for unfractionated heparin ?? 01/14/2006 10:2 5 AM CDT Wicho Gomez MD HEMATOLOGY ORDERABLES Final R [employer] Performing Organization Address [facility] Phone Number INTERFACE SYSTEM Refer to clinic/hospital department * (ABNORMAL) PTT (01/14/2006 3:25 AM CDT) PTT 66.6(H) 24.4 - 36.4 Seconds INTERFACE SYSTEM Comment: PTT Therapeutic Range: Heparin Level ? PTT (seconds) <0.10 units/mL ? <53 0.10 - 0.30 units/mL ? 53 - 67 0.30 - 0.70 units/mL* ?67 - 95* 0.70 - 1.00 units/mL ?95 - 116 *corresponds to therapeutic range for unfractionated heparin ?? 01/14/2006 3:25 AM CDT us Wicho Gomez MD HEMATOLOGY ORDERABLES Final R esult Performing Organization Address [facility] Phone Number INTERFACE SYSTEM Refer to clinic/hospital department * (ABNORMAL) CBC WITH DIFFERENTIAL (01/14/2006 3:25 AM CDT) NEUTROPHIL ABSOLUTE 4.91 1.90 - 7.00 K/uL INTERFACE SYSTEM LYMPHOCYTE ABSOLUTE 0.88 0.70 - 4.50 K/uL INTERFACE SYSTEM MONOCYTE ABSOLUTE 0.44 0.10 - 1.30 K/uL INTERFACE SYSTEM EOSINOPHIL ABSOLUTE 0.00 0.00 - 0.70 K/uL INTERFACE SYSTEM BASOPHILS ABSOLUTE 0.00 0.00 - 0.20 K/uL INTERFACE SYSTEM NEUTROPHILS, SEG 77(H) 45 - 70 % INT ERFACE SYSTEM BANDS 1 0 - 5 % INTERFACE SYSTEM LYMPHOCYTES 14(L) 16 - 45 % INTERFAC E SYSTEM MONOCYTES 7 3 - 13 % INTERFACE SYSTEM EOSINOPHILS 0 0 - 7 % INTERFAC E SYSTEM BASOPHILS 0 0 - 2 % INTERFACE SYSTEM MYELOCYTES 1(H) <=0 % INTERFACE SYSTEM PLATELET EST. Consistent w/ count Normal INTERFACE SYSTEM ANISOCYTOSIS Slight INTERFA CE SYSTEM POLYCHROMASIA Slight INTERF CINDY SYSTEM 01/14/2006 3:25 AM CDT us Wicho Gomez MD HEMATOLOGY ORDERABLES Final R esult Performing Organization Address City/[facility] Co de Phone Number INTERFACE SYSTEM Refer to clinic/hospital department * (ABNORMAL) CBC WITH DIFFERENTIAL (01/14/2006 3:25 AM CDT) WBC 6.3 4.0 - 9.8 K/uL INTERFACE SYSTEM RBC 3.25(L) 4.50 - 5.40 M/uL INTERFACE SYSTEM HEMOGLOBIN 9.4(L) 13.6 - 16.5 g/dL INTERFACE SYSTEM HEMATOCRIT 29.3(L) 40.0 - 48.0 % INTERFACE SYSTEM MCV 90.2 82.0 - 99.0 fL INTERFACE SYSTEM MCH 28.9 27.2 - 32.6 pg INTERFACE SYSTEM MCHC 32.1 31.5 - 35.5 % INTERFACE SYSTEM RDW 17.5(H) 11.5 - 14.5 % INTERFACE SYSTEM RDW-STDEV 55.0(H) 37.1 - 48.7 fL INTERFACE SYSTEM PLATELETS 136(L) 140 - 350 K/uL INTERFACE SYSTEM MPV 10.5 9.3 - 12.4 fL INTERFACE SYSTEM 01/14/2006 3:25 AM CDT us Wicho Gomez MD HEMATOLOGY ORDERABLES Final R esult INTERFACE SYSTEM Refer to clinic/hospital department * (ABNORMAL) CALCIUM IONIZED (01/14/2006 3:25 AM CDT) CALCIUM IONIZED 4.52(L) 4.76 - 5.16 mg/dL INTERFACE SYSTEM 01/14/2006 3:25 AM CDT Wicho Gomez MD CHEMISTRY ORDERABLES Final Re sult Performing Organization Address [facility] Phone Number INTERFACE SYSTEM Refer to clinic/hospital department * (ABNORMAL) PHOSPHORUS (01/14/2006 3:25 AM CDT) PHOSPHORUS 1.7(L) 2.5 - 4.5 mg/dL INTERFACE SYSTEM 01/14/2006 3:25 AM CDT Wicho Gomez MD CHEMISTRY ORDERABLES Final Re sult Performing Organization Address [facility] Phone Number INTERFACE SYSTEM Refer to clinic/hospital department * MAGNESIUM LEVEL (01/14/2006 3:25 AM CDT) MAGNESIUM 1.8 1.5 - 2.5 mg/dL INTERFACE SYSTEM 01/14/2006 3:25 AM CDT us Wicho Gomez MD CHEMISTRY ORDERABLES Final Re sult Performing Organization Address [facility] Phone Number INTERFACE SYSTEM Refer to clinic/hospital department * (ABNORMAL) BASIC METABOLIC PANEL (01/14/2006 3:25 AM CDT) GLUCOSE 144(H) 65 - 99 mg/dL INTERFACE SYSTEM CREATININE 5.2(H) 0.5 - 1.3 mg/dL INTERFACE SYSTEM CALCIUM 8.2(L) 8.4 - 10.2 mg/dL INTERFACE SYSTEM BUN 45(H) 6 - 20 mg/dL INTERFACE SYSTEM SODIUM 143 135 - 145 mmol/L INTERFACE SYSTEM POTASSIUM 3.5 3.5 - 4.9 mmol/L INTERFACE SYSTEM CHLORIDE 108 96 - 108 mmol/L INTERFACE SYSTEM CO2 29 22 - 30 mmol/L INTERFACE SYSTEM 01/14/2006 3:25 AM CDT us Wicho Gomez MD CHEMISTRY ORDERABLES Final Re sult Performing Organization Address [facility] Phone Number INTERFACE SYSTEM Refer to clinic/hospital department * (ABNORMAL) POC GLUCOSE (01/13/2006 11:44 PM CDT) GLUCOSE POC 122(H) 65 - 109 mg/dL INTERFACE SYSTEM 01/13/2006 11:4 4 PM CDT Wicho Gomez MD POINT OF CARE TESTING Final R esult Performing Organization Address [facility] Phone Number INTERFACE SYSTEM Refer to clinic/hospital department * (ABNORMAL) PTT (01/13/2006 9:50 PM CDT) PTT 60.6(H) 24.4 - 36.4 Seconds INTERFACE SYSTEM Comment: PTT Therapeutic Range: Heparin Level ? PTT (seconds) <0.10 units/mL ? <53 0.10 - 0.30 units/mL ? 53 - 67 0.30 - 0.70 units/mL* ?67 - 95* 0.70 - 1.00 units/mL ?95 - 116 *corresponds to therapeutic range for unfractionated heparin ?? 01/13/2006 9:50 PM CDT Romie Laughlin MD HEMATOLOGY ORDERABLES Final Result Performing Organization Address [facility] Phone Number INTERFACE SYSTEM Refer to clinic/hospital department * (ABNORMAL) POC GLUCOSE (01/13/2006 5:44 PM CDT) GLUCOSE POC 158(H) 65 - 109 mg/dL INTERFACE SYSTEM 01/13/2006 5:44 PM CDT us Wicho Gomez MD POINT OF CARE TESTING Final R esult Performing Organization Address [facility] Phone Number INTERFACE SYSTEM Refer to clinic/hospital department * (ABNORMAL) PTT (01/13/2006 4:00 PM CDT) PTT >150.0(AA ) 24.4 - 36.4 Seconds INTERFACE SYSTEM Comment: PTT Therapeutic Range: Heparin Level ? PTT (seconds) <0.10 units/mL ? <53 0.10 - 0.30 units/mL ? 53 - 67 0.30 - 0.70 units/mL* ?67 - 95* 0.70 - 1.00 units/mL ?95 - 116 *corresponds to therapeutic range for unfractionated heparin ?? Results called to Delfina at 01/13/2006 5:20 PM and read back verified. 01/13/2006 4:00 PM CDT us Romie Laughlin MD HEMATOLOGY ORDERABLES Final Result Performing Organization Address [facility] Phone Number INTERFACE SYSTEM Refer to clinic/hospital department * (ABNORMAL) POC GLUCOSE (01/13/2006 11:53 AM CDT) GLUCOSE POC 134(H) 65 - 109 mg/dL INTERFACE SYSTEM 01/13/2006 11:5 3 AM CDT us Wicho Gomez MD POINT OF CARE TESTING Final R esult Performing Organization Address [facility] Phone Number INTERFACE SYSTEM Refer to clinic/hospital department * (ABNORMAL) PTT (01/13/2006 9:57 AM CDT) PTT 60.4(H) 24.4 - 36.4 Seconds INTERFACE SYSTEM Comment: PTT Therapeutic Range: Heparin Level ? PTT (seconds) <0.10 units/mL ? <53 0.10 - 0.30 units/mL ? 53 - 67 0.30 - 0.70 units/mL* ?67 - 95* 0.70 - 1.00 units/mL ?95 - 116 *corresponds to therapeutic range for unfractionated heparin ?? 01/13/2006 9:57 AM CDT Romie Laughlin MD HEMATOLOGY ORDERABLES Final Result Performing Organization Address [facility] Phone Number INTERFACE SYSTEM Refer to clinic/hospital department * (ABNORMAL) PTT (01/13/2006 4:00 AM CDT) PTT 73.7(H) 24.4 - 36.4 Seconds INTERFACE SYSTEM Comment: PTT Therapeutic Range: Heparin Level ? PTT (seconds) <0.10 units/mL ? <53 0.10 - 0.30 units/mL ? 53 - 67 0.30 - 0.70 units/mL* ?67 - 95* 0.70 - 1.00 units/mL ?95 - 116 *corresponds to therapeutic range for unfractionated heparin ?? 01/13/2006 4:00 AM CDT Romie Laughlin MD HEMATOLOGY ORDERABLES Final Result Performing Organization Address [facility] Phone Number INTERFACE SYSTEM Refer to clinic/hospital department * (ABNORMAL) CBC WITH DIFFERENTIAL (01/13/2006 4:00 AM CDT) NEUTROPHILS 81(H) 45 - 70 % INTERFAC E SYSTEM LYMPHOCYTES 10(L) 16 - 45 % INTERFAC E SYSTEM MONOCYTES 10 3 - 13 % INTERFACE SYSTEM EOSINOPHILS 0 0 - 7 % INTERFAC E SYSTEM BASOPHILS 0 0 - 2 % INTERFACE SYSTEM NEUTROPHIL ABSOLUTE 6.42 1.90 - 7.00 K/uL INTERFACE SYSTEM LYMPHOCYTE ABSOLUTE 0.78 0.70 - 4.50 K/uL INTERFACE SYSTEM MONOCYTE ABSOLUTE 0.77 0.10 - 1.30 K/uL INTERFACE SYSTEM EOSINOPHIL ABSOLUTE 0.00 0.00 - 0.70 K/uL INTERFACE SYSTEM BASOPHILS ABSOLUTE 0.01 0.00 - 0.20 K/uL INTERFACE SYSTEM 01/13/2006 4:00 AM CDT Wicho Gomez MD HEMATOLOGY ORDERABLES Final R esult Performing Organization Address City/State/[facility] Co de Phone Number INTERFACE SYSTEM Refer to clinic/hospital department * (ABNORMAL) CBC WITH DIFFERENTIAL (01/13/2006 4:00 AM CDT) WBC 8.0 4.0 - 9.8 K/uL INTERFACE SYSTEM RBC 3.05(L) 4.50 - 5.40 M/uL INTERFACE SYSTEM HEMOGLOBIN 8.8(L) 13.6 - 16.5 g/dL INTERFACE SYSTEM HEMATOCRIT 27.6(L) 40.0 - 48.0 % INTERFACE SYSTEM MCV 90.5 82.0 - 99.0 fL INTERFACE SYSTEM MCH 28.9 27.2 - 32.6 pg INTERFACE SYSTEM MCHC 31.9 31.5 - 35.5 % INTERFACE SYSTEM RDW 17.8(H) 11.5 - 14.5 % INTERFACE SYSTEM RDW-STDEV 57.0(H) 37.1 - 48.7 fL INTERFACE SYSTEM PLATELETS 131(L) 140 - 350 K/uL INTERFACE SYSTEM MPV 10.7 9.3 - 12.4 fL INTERFACE SYSTEM 01/13/2006 4:00 AM CDT Wicho Gomez MD HEMATOLOGY ORDERABLES Final R esult INTERFACE SYSTEM Refer to clinic/hospital department * DIGOXIN LEVEL (01/13/2006 4:00 AM CDT) DIGOXIN LEVEL 1.3 0.8 - 2.0 ng/mL INTERFACE SYSTEM Comment:Digoxin Toxic Level = >2.0 ng/mL 01/13/2006 4:00 AM CDT us Wicho Gomez MD CHEMISTRY ORDERABLES Final Re sult Performing Organization Address [facility] Phone Number INTERFACE SYSTEM Refer to clinic/hospital department * PHOSPHORUS (01/13/2006 4:00 AM CDT) PHOSPHORUS 2.5 2.5 - 4.5 mg/dL INTERFACE SYSTEM 01/13/2006 4:00 AM CDT us Wicho Gomez MD CHEMISTRY ORDERABLES Final Re sult Performing Organization Address [facility] INTERFACE SYSTEM Refer to clinic/hospital department * MAGNESIUM LEVEL (01/13/2006 4:00 AM CDT) MAGNESIUM 1.8 1.5 - 2.5 mg/dL INTERFACE SYSTEM 01/13/2006 4:00 AM CDT us Wicho Gomez MD CHEMISTRY ORDERABLES Final Re sult Performing Organization Address [facility] INTERFACE SYSTEM Refer to clinic/hospital department * CALCIUM IONIZED (01/13/2006 4:00 AM CDT) CALCIUM IONIZED 4.76 4.76 - 5.16 mg/dL INTERFACE SYSTEM 01/13/2006 4:00 AM CDT us Wicho Gomez MD CHEMISTRY ORDERABLES Final Re sult Performing Organization Address [facility] Phone Number INTERFACE SYSTEM Refer to clinic/hospital department * (ABNORMAL) BASIC METABOLIC PANEL (01/13/2006 4:00 AM CDT) GLUCOSE 148(H) 65 - 99 mg/dL INTERFACE SYSTEM CREATININE 5.7(H) 0.5 - 1.3 mg/dL INTERFACE SYSTEM CALCIUM 8.1(L) 8.4 - 10.2 mg/dL INTERFACE SYSTEM BUN 51(H) 6 - 20 mg/dL INTERFACE SYSTEM SODIUM 143 135 - 145 mmol/L INTERFACE SYSTEM POTASSIUM 3.5 3.5 - 4.9 mmol/L INTERFACE SYSTEM CHLORIDE 108 96 - 108 mmol/L INTERFACE SYSTEM CO2 28 22 - 30 mmol/L INTERFACE SYSTEM 01/13/2006 4:00 AM CDT Wicho Gomez MD CHEMISTRY ORDERABLES Final Re sult Performing Organization Address [facility] Phone Number INTERFACE SYSTEM Refer to clinic/hospital department * (ABNORMAL) POC GLUCOSE (01/12/2006 11:32 PM CDT) GLUCOSE POC 138(H) 65 - 109 mg/dL INTERFACE SYSTEM 01/12/2006 11:3 2 PM CDT us Wicho Gomez MD POINT OF CARE TESTING Final R esult Performing Organization Address [facility] Phone Number INTERFACE SYSTEM Refer to clinic/hospital department * (ABNORMAL) PTT (01/12/2006 8:00 PM CDT) PTT 56.9(H) 24.4 - 36.4 Seconds INTERFACE SYSTEM Comment: PTT Therapeutic Range: Heparin Level ? PTT (seconds) <0.10 units/mL ? <53 0.10 - 0.30 units/mL ? 53 - 67 0.30 - 0.70 units/mL* ?67 - 95* 0.70 - 1.00 units/mL ?95 - 116 *corresponds to therapeutic range for unfractionated heparin ?? 01/12/2006 8:00 PM CDT us Wicho Gomez MD HEMATOLOGY ORDERABLES Final R esult Performing Organization Address [facility] Phone Number INTERFACE SYSTEM Refer to clinic/hospital department * (ABNORMAL) POC GLUCOSE (01/12/2006 5:27 PM CDT) GLUCOSE POC 170(H) 65 - 109 mg/dL INTERFACE SYSTEM 01/12/2006 5:27 PM CDT us Wicho Gomez MD POINT OF CARE TESTING Final R esult Performing Organization Address [facility] Phone Number INTERFACE SYSTEM Refer to clinic/hospital department * (ABNORMAL) PTT (01/12/2006 12:59 PM CDT) PTT 51.4(H) 24.4 - 36.4 Seconds INTERFACE SYSTEM Comment: PTT Therapeutic Range: Heparin Level ? PTT (seconds) <0.10 units/mL ? <53 0.10 - 0.30 units/mL ? 53 - 67 0.30 - 0.70 units/mL* ?67 - 95* 0.70 - 1.00 units/mL ?95 - 116 *corresponds to therapeutic range for unfractionated heparin ?? 01/12/2006 12:5 9 PM CDT us Romie Laughlin MD HEMATOLOGY ORDERABLES Final Result Performing Organization Address [facility] Phone Number INTERFACE SYSTEM Refer to clinic/hospital department * (ABNORMAL) POC GLUCOSE (01/12/2006 12:05 PM CDT) GLUCOSE POC 147(H) 65 - 109 mg/dL INTERFACE SYSTEM 01/12/2006 12:0 5 PM CDT us Wicho Gomez MD POINT OF CARE TESTING Final R esult Performing Organization Address [facility] Phone Number INTERFACE SYSTEM Refer to clinic/hospital department * (ABNORMAL) PTT (01/12/2006 5:50 AM CDT) PTT 46.6(H) 24.4 - 36.4 Seconds INTERFACE SYSTEM Comment: PTT Therapeutic Range: Heparin Level ? PTT (seconds) <0.10 units/mL ? <53 0.10 - 0.30 units/mL ? 53 - 67 0.30 - 0.70 units/mL* ?67 - 95* 0.70 - 1.00 units/mL ?95 - 116 *corresponds to therapeutic range for unfractionated heparin ?? 01/12/2006 5:50 AM CDT Wicho Gomez MD HEMATOLOGY ORDERABLES Final R [facility] Performing Organization Address [facility] de Phone Number INTERFACE SYSTEM Refer to clinic/hospital department * (ABNORMAL) POC GLUCOSE (01/12/2006 5:15 AM CDT) [facility] GLUCOSE POC 154(H) 65 - 109 mg/dL INTERFACE SYSTEM 01/12/2006 5:15 AM CDT Wicho Gomez MD POINT OF CARE TESTING Final [facility] Performing Organization Address [facility] Phone Number INTERFACE SYSTEM Refer to clinic/hospital department * (ABNORMAL) CBC WITH DIFFERENTIAL (01/12/2006 3:00 AM CDT) Pathologist [facility] NEUTROPHIL ABSOLUTE 6.61 1.90 - 7.00 K/uL INTERFACE SYSTEM LYMPHOCYTE ABSOLUTE 0.61(L) 0.70 - 4.50 K/uL INTERFACE SYSTEM MONOCYTE ABSOLUTE 0.38 0.10 - 1.30 K/uL INTERFACE SYSTEM EOSINOPHIL ABSOLUTE 0.00 0.00 - 0.70 K/uL INTERFACE SYSTEM BASOPHILS ABSOLUTE 0.00 0.00 - 0.20 K/uL INTERFACE SYSTEM NEUTROPHILS, SEG 84(H) 45 - 70 % INT ERFACE SYSTEM BANDS 3 0 - 5 % INTERFACE SYSTEM LYMPHOCYTES 8(L) 16 - 45 % INTERFAC E SYSTEM MONOCYTES 5 3 - 13 % INTERFACE SYSTEM EOSINOPHILS 0 0 - 7 % INTERFAC E SYSTEM BASOPHILS 0 0 - 2 % INTERFACE SYSTEM PLATELET EST. Consistent w/ count Normal INTERFACE SYSTEM ANISOCYTOSIS Slight INTERFA CE SYSTEM POIKILOCYTES Slight INTERFA CE SYSTEM POLYCHROMASIA Slight INTERF CINDY SYSTEM OVALOCYTES Slight INTERFACE SYSTEM 01/12/2006 3:00 AM CDT Wicho Gomez MD HEMATOLOGY ORDERABLES Final R esult Performing Organization Address City/[facility] de Phone Number INTERFACE SYSTEM Refer to clinic/hospital department * (ABNORMAL) CBC WITH DIFFERENTIAL (01/12/2006 3:00 AM CDT) WBC 7.6 4.0 - 9.8 K/uL INTERFACE SYSTEM RBC 3.06(L) 4.50 - 5.40 M/uL INTERFACE SYSTEM HEMOGLOBIN 9.2(L) 13.6 - 16.5 g/dL INTERFACE SYSTEM HEMATOCRIT 28.5(L) 40.0 - 48.0 % INTERFACE SYSTEM MCV 93.1 82.0 - 99.0 fL INTERFACE SYSTEM MCH 30.1 27.2 - 32.6 pg INTERFACE SYSTEM MCHC 32.3 31.5 - 35.5 % INTERFACE SYSTEM RDW 17.6(H) 11.5 - 14.5 % INTERFACE SYSTEM RDW-STDEV 57.9(H) 37.1 - 48.7 fL INTERFACE SYSTEM PLATELETS 128(L) 140 - 350 K/uL INTERFACE SYSTEM MPV 11.3 9.3 - 12.4 fL INTERFACE SYSTEM 01/12/2006 3:00 AM CDT Wicho Gomez MD HEMATOLOGY ORDERABLES Final R esult Performing Organization Address [facility] de Phone Number INTERFACE SYSTEM Refer to clinic/hospital department * (ABNORMAL) COMPREHENSIVE METABOLIC PANEL (01/12/2006 3:00 AM CDT) GLUCOSE 122(H) 65 - 99 mg/dL INTERFACE SYSTEM CREATININE 7.4(AA) 0.5 - 1.3 mg/dL INTERFACE SYSTEM Comment: Results called to Yecenia at 01/12/2006 4:07 AM and read back verified. t=0 CALCIUM 8.1(L) 8.4 - 10.2 mg/dL INTERFACE SYSTEM ALKALINE PHOSPHATASE 102 40 - 129 U/L INTERFACE SYSTEM AST 23 12 - 38 U/L INTERFACE SYSTEM ALT 79(H) 0 - 41 U/L INTERFACE SYSTEM TOTAL PROTEIN 4.0(L) 6.3 - 8.6 g/dL INTERFACE SYSTEM ALBUMIN 1.7(L) 3.4 - 4.8 g/dL INTERFACE SYSTEM BILIRUBIN TOTAL 0.5 0.2 - 1.0 mg/dL INTERFACE SYSTEM BUN 68(H) 6 - 20 mg/dL INTERFACE SYSTEM SODIUM 144 135 - 145 mmol/L INTERFACE SYSTEM POTASSIUM 4.1 3.5 - 4.9 mmol/L INTERFACE SYSTEM CHLORIDE 111(H) 96 - 108 mmol/L INTERFACE SYSTEM CO2 22 22 - 30 mmol/L INTERFACE SYSTEM 01/12/2006 3:00 AM CDT Wicho Gomez MD CHEMISTRY ORDERABLES Final Re sult Performing Organization Address [facility] Phone Number INTERFACE SYSTEM Refer to clinic/hospital department * (ABNORMAL) CALCIUM IONIZED (01/12/2006 3:00 AM CDT) CALCIUM IONIZED 4.68(L) 4.76 - 5.16 mg/dL INTERFACE SYSTEM 01/12/2006 3:00 AM CDT Wicho Gomez MD CHEMISTRY ORDERABLES Final Re sult Performing Organization Address [facility] Phone Number INTERFACE SYSTEM Refer to clinic/hospital department * PHOSPHORUS (01/12/2006 3:00 AM CDT) PHOSPHORUS 4.0 2.5 - 4.5 mg/dL INTERFACE SYSTEM 01/12/2006 3:00 AM CDT Wicho Gomez MD CHEMISTRY ORDERABLES Final Re sult Performing Organization Address [facility] Phone Number INTERFACE SYSTEM Refer to clinic/hospital department * MAGNESIUM LEVEL (01/12/2006 3:00 AM CDT) MAGNESIUM 2.0 1.5 - 2.5 mg/dL INTERFACE SYSTEM 01/12/2006 3:00 AM CDT Wicho Gomez MD CHEMISTRY ORDERABLES Final Re sult Performing Organization Address [facility] Phone Number INTERFACE SYSTEM Refer to clinic/hospital department * (ABNORMAL) POC GLUCOSE (01/11/2006 11:18 PM CDT) GLUCOSE POC 139(H) 65 - 109 mg/dL INTERFACE SYSTEM 01/11/2006 11:1 8 PM CDT Wicho Gomez MD POINT OF CARE TESTING Final R esult Performing Organization Address [facility] Phone Number INTERFACE SYSTEM Refer to clinic/hospital department * (ABNORMAL) PTT (01/11/2006 11:12 PM CDT) PTT 39.3(H) 24.4 - 36.4 Seconds INTERFACE SYSTEM Comment: PTT Therapeutic Range: Heparin Level ? PTT (seconds) <0.10 units/mL ? <53 0.10 - 0.30 units/mL ? 53 - 67 0.30 - 0.70 units/mL* ?67 - 95* 0.70 - 1.00 units/mL ?95 - 116 *corresponds to therapeutic range for unfractionated heparin ?? 01/11/2006 11:1 2 PM CDT us Wicho Gomez MD HEMATOLOGY ORDERABLES Final R esult Performing Organization Address [facility] Phone Number INTERFACE SYSTEM Refer to clinic/hospital department * (ABNORMAL) POC GLUCOSE (01/11/2006 5:57 PM CDT) COMMENT, GLU POC Notified RN INTERFACE SYSTEM GLUCOSE POC 118(H) 65 - 109 mg/dL INTERFACE SYSTEM 01/11/2006 5:57 PM CDT us Wicho Gomez MD POINT OF CARE TESTING Final R esult Performing Organization Address [facility] Phone Number INTERFACE SYSTEM Refer to clinic/hospital department * PTT (01/11/2006 4:31 PM CDT) PTT 32.0 24.4 - 36.4 Seconds INTERFACE SYSTEM Comment: PTT Therapeutic Range: Heparin Level ? PTT (seconds) <0.10 units/mL ? <53 0.10 - 0.30 units/mL ? 53 - 67 0.30 - 0.70 units/mL* ?67 - 95* 0.70 - 1.00 units/mL ?95 - 116 *corresponds to therapeutic range for unfractionated heparin ?? 01/11/2006 4:31 PM CDT us Romie Laughlin MD HEMATOLOGY ORDERABLES Final Result Performing Organization Address [facility] Phone Number INTERFACE SYSTEM Refer to clinic/hospital department * (ABNORMAL) POC GLUCOSE (01/11/2006 12:19 PM CDT) COMMENT, GLU POC Notified RN INTERFACE SYSTEM GLUCOSE POC 113(H) 65 - 109 mg/dL INTERFACE SYSTEM 01/11/2006 12:1 9 PM CDT us Wicho Gomez MD POINT OF CARE TESTING Final R esult Performing Organization Address [facility] de Phone Number INTERFACE SYSTEM Refer to clinic/hospital department * (ABNORMAL) PTT (01/11/2006 9:09 AM CDT) PTT 38.1(H) 24.4 - 36.4 Seconds INTERFACE SYSTEM Comment: PTT Therapeutic Range: Heparin Level ? PTT (seconds) <0.10 units/mL ? <53 0.10 - 0.30 units/mL ? 53 - 67 0.30 - 0.70 units/mL* ?67 - 95* 0.70 - 1.00 units/mL ?95 - 116 *corresponds to therapeutic range for unfractionated heparin ?? 01/11/2006 9:09 AM CDT Romie Laughlin MD HEMATOLOGY ORDERABLES Final Result Performing Organization Address [facility] Phone Number INTERFACE SYSTEM Refer to clinic/hospital department * POC GLUCOSE (01/11/2006 5:21 AM CDT) GLUCOSE POC 95 65 - 109 mg/dL INTERFACE SYSTEM 01/11/2006 5:21 AM CDT us Wicho Gomez MD POINT OF CARE TESTING Final R esult Performing Organization Address [facility] Phone Number INTERFACE SYSTEM Refer to clinic/hospital department * (ABNORMAL) DIGOXIN LEVEL (01/11/2006 4:42 AM CDT) DIGOXIN LEVEL 3.2(AA) 0.8 - 2.0 ng/mL INTERFACE SYSTEM Comment: Digoxin Toxic Level ??= >2.0 ng/mL Results called to Kelley at 01/11/2006 5:31 AM and read back verified. 01/11/2006 4:42 AM CDT us Wicho Gomez MD CHEMISTRY ORDERABLES Final Re sult Performing Organization Address [facility] Phone Number INTERFACE SYSTEM Refer to clinic/hospital department * (ABNORMAL) CBC WITH DIFFERENTIAL (01/11/2006 3:00 AM CDT) NEUTROPHILS 80(H) 45 - 70 % INTERFAC E SYSTEM LYMPHOCYTES 12(L) 16 - 45 % INTERFAC E SYSTEM MONOCYTES 8 3 - 13 % INTERFACE SYSTEM EOSINOPHILS 0 0 - 7 % INTERFAC E SYSTEM BASOPHILS 0 0 - 2 % INTERFACE SYSTEM NEUTROPHIL ABSOLUTE 6.30 1.90 - 7.00 K/uL INTERFACE SYSTEM LYMPHOCYTE ABSOLUTE 0.96 0.70 - 4.50 K/uL INTERFACE SYSTEM MONOCYTE ABSOLUTE 0.63 0.10 - 1.30 K/uL INTERFACE SYSTEM EOSINOPHIL ABSOLUTE 0.00 0.00 - 0.70 K/uL INTERFACE SYSTEM BASOPHILS ABSOLUTE 0.01 0.00 - 0.20 K/uL INTERFACE SYSTEM 01/11/2006 3:00 AM CDT Romie Laughlin MD HEMATOLOGY ORDERABLES Final Result Performing Organization Address [facility] de Phone Number INTERFACE SYSTEM Refer to clinic/hospital department * (ABNORMAL) CBC WITH DIFFERENTIAL (01/11/2006 3:00 AM CDT) WBC 7.9 4.0 - 9.8 K/uL INTERFACE SYSTEM RBC 3.39(L) 4.50 - 5.40 M/uL INTERFACE SYSTEM HEMOGLOBIN 9.9(L) 13.6 - 16.5 g/dL INTERFACE SYSTEM HEMATOCRIT 30.3(L) 40.0 - 48.0 % INTERFACE SYSTEM MCV 89.4 82.0 - 99.0 fL INTERFACE SYSTEM MCH 29.2 27.2 - 32.6 pg INTERFACE SYSTEM MCHC 32.7 31.5 - 35.5 % INTERFACE SYSTEM RDW 17.0(H) 11.5 - 14.5 % INTERFACE SYSTEM RDW-STDEV 54.6(H) 37.1 - 48.7 fL INTERFACE SYSTEM PLATELETS 127(L) 140 - 350 K/uL INTERFACE SYSTEM MPV 10.7 9.3 - 12.4 fL INTERFACE SYSTEM 01/11/2006 3:00 AM CDT Romie Laughlin MD HEMATOLOGY ORDERABLES Final Result Performing Organization Address [facility] Co de Phone Number INTERFACE SYSTEM Refer to clinic/hospital department * (ABNORMAL) BLOOD GAS ARTERIAL (01/11/2006 3:00 AM CDT) PH ARTERIAL 7.38 7.35 - 7.45 INTERFACE SYSTEM PCO2 ARTERIAL 37 35 - 48 mm Hg INTERFACE SYSTEM PO2 ARTERIAL 149(H) 83 - 108 mm Hg INTERFACE SYSTEM O2 SAT EST ARTERIAL 99(H) 94 - 98 % INTERFACE SYSTEM HCO3 ARTERIAL 21(L) 22 - 26 mmol/L INTERFACE SYSTEM BASE EXCESS ABG -3.5(L) -2.0 - 3.0 mmol/L INTERFACE SYSTEM Comment:Base Excess Estimate d; Assumes 15.0 g/dl Hemoglobin O2 CONC ARTERIAL 60 INTERFACE SYSTEM 01/11/2006 3:00 AM CDT us Wicho Gomez MD ABG ORDERABLES Final Result Performing Organization Address [facility] Phone Number INTERFACE SYSTEM Refer to clinic/hospital department * (ABNORMAL) PHOSPHORUS (01/11/2006 3:00 AM CDT) PHOSPHORUS 5.0(H) 2.5 - 4.5 mg/dL INTERFACE SYSTEM 01/11/2006 3:00 AM CDT us Romie Laughlin MD CHEMISTRY ORDERABLES Final R esult Performing Organization Address [facility] Phone Number INTERFACE SYSTEM Refer to clinic/hospital department * MAGNESIUM LEVEL (01/11/2006 3:00 AM CDT) MAGNESIUM 2.1 1.5 - 2.5 mg/dL INTERFACE SYSTEM 01/11/2006 3:00 AM CDT us Romie Laughlin MD CHEMISTRY ORDERABLES Final R esult Performing Organization Address [facility] de Phone Number INTERFACE SYSTEM Refer to clinic/hospital department * CALCIUM IONIZED (01/11/2006 3:00 AM CDT) CALCIUM IONIZED 4.96 4.76 - 5.16 mg/dL INTERFACE SYSTEM 01/11/2006 3:00 AM CDT Romie Laughlin MD CHEMISTRY ORDERABLES Final R esult Performing Organization Address [facility] Phone Number INTERFACE SYSTEM Refer to clinic/hospital department * (ABNORMAL) BASIC METABOLIC PANEL (01/11/2006 3:00 AM CDT) GLUCOSE 79 65 - 99 mg/dL INTERFACE SYSTEM CREATININE 6.9(H) 0.5 - 1.3 mg/dL INTERFACE SYSTEM CALCIUM 8.2(L) 8.4 - 10.2 mg/dL INTERFACE SYSTEM BUN 64(H) 6 - 20 mg/dL INTERFACE SYSTEM SODIUM 144 135 - 145 mmol/L INTERFACE SYSTEM POTASSIUM 4.1 3.5 - 4.9 mmol/L INTERFACE SYSTEM CHLORIDE 113(H) 96 - 108 mmol/L INTERFACE SYSTEM CO2 20(L) 22 - 30 mmol/L INTERFACE SYSTEM 01/11/2006 3:00 AM CDT us Romie Laughlin MD CHEMISTRY ORDERABLES Final R [facility] Performing Organization Address [facility] Phone Number INTERFACE SYSTEM Refer to clinic/hospital department * PTT (01/11/2006 1:58 AM CDT) PTT 35.0 24.4 - 36.4 Seconds INTERFACE SYSTEM Comment: PTT Therapeutic Range: Heparin Level ? PTT (seconds) <0.10 units/mL ? <53 0.10 - 0.30 units/mL ? 53 - 67 0.30 - 0.70 units/mL* ?67 - 95* 0.70 - 1.00 units/mL ?95 - 116 *corresponds to therapeutic range for unfractionated heparin ?? 01/11/2006 1:58 AM CDT us Wicho Gomez MD HEMATOLOGY ORDERABLES Final R esult Performing Organization Address [facility] Phone Number INTERFACE SYSTEM Refer to clinic/hospital department * POC GLUCOSE (01/10/2006 11:22 PM CDT) GLUCOSE POC 91 65 - 109 mg/dL INTERFACE SYSTEM 01/10/2006 11:2 2 PM CDT us Wicho Gomez MD POINT OF CARE TESTING Final R [facility] Performing Organization Address [facility] Phone Number INTERFACE SYSTEM Refer to clinic/hospital department * POC GLUCOSE (01/10/2006 6:19 PM CDT) COMMENT, GLU POC Notified RN INTERFACE SYSTEM GLUCOSE POC 82 65 - 109 mg/dL INTERFACE SYSTEM 01/10/2006 6:19 PM CDT us Wicho Gomez MD POINT OF CARE TESTING Final R [facility] Performing Organization Address [facility] Phone Number INTERFACE SYSTEM Refer to clinic/hospital department * POC GLUCOSE (01/10/2006 11:52 AM CDT) COMMENT, GLU POC Notified RN INTERFACE SYSTEM GLUCOSE POC 85 65 - 109 mg/dL INTERFACE SYSTEM 01/10/2006 11:5 2 AM CDT us Wicho Gomez MD POINT OF CARE TESTING Final R [facility] Performing Organization Address [facility] Phone Number INTERFACE SYSTEM Refer to clinic/hospital department * (ABNORMAL) CBC WITH DIFFERENTIAL (01/10/2006 3:15 AM CDT) NEUTROPHILS 78(H) 45 - 70 % INTERFAC E SYSTEM LYMPHOCYTES 14(L) 16 - 45 % INTERFAC E SYSTEM MONOCYTES 8 3 - 13 % INTERFACE SYSTEM EOSINOPHILS 0 0 - 7 % INTERFAC E SYSTEM BASOPHILS 0 0 - 2 % INTERFACE SYSTEM NEUTROPHIL ABSOLUTE 6.32 1.90 - 7.00 K/uL INTERFACE SYSTEM LYMPHOCYTE ABSOLUTE 1.09 0.70 - 4.50 K/uL INTERFACE SYSTEM MONOCYTE ABSOLUTE 0.66 0.10 - 1.30 K/uL INTERFACE SYSTEM EOSINOPHIL ABSOLUTE 0.00 0.00 - 0.70 K/uL INTERFACE SYSTEM BASOPHILS ABSOLUTE 0.01 0.00 - 0.20 K/uL INTERFACE SYSTEM 01/10/2006 3:15 AM CDT Romie Laughlin MD HEMATOLOGY ORDERABLES Final Result Performing Organization Address [place]/[facility] Phone Number INTERFACE SYSTEM Refer to clinic/hospital department * (ABNORMAL) CBC WITH DIFFERENTIAL (01/10/2006 3:15 AM CDT) WBC 8.1 4.0 - 9.8 K/uL INTERFACE SYSTEM RBC 3.67(L) 4.50 - 5.40 M/uL INTERFACE SYSTEM HEMOGLOBIN 10.8(L) 13.6 - 16.5 g/dL INTERFACE SYSTEM HEMATOCRIT 32.4(L) 40.0 - 48.0 % INTERFACE SYSTEM MCV 88.3 82.0 - 99.0 fL INTERFACE SYSTEM MCH 29.4 27.2 - 32.6 pg INTERFACE SYSTEM MCHC 33.3 31.5 - 35.5 % INTERFACE SYSTEM RDW 16.4(H) 11.5 - 14.5 % INTERFACE SYSTEM RDW-STDEV 51.6(H) 37.1 - 48.7 fL INTERFACE SYSTEM PLATELETS 134(L) 140 - 350 K/uL INTERFACE SYSTEM MPV 10.4 9.3 - 12.4 fL INTERFACE SYSTEM 01/10/2006 3:15 AM CDT Romie Laughlin MD HEMATOLOGY ORDERABLES Final Result Performing Organization Address [facility] Phone Number INTERFACE SYSTEM Refer to clinic/hospital department * (ABNORMAL) PREALBUMIN (01/10/2006 3:15 AM CDT) PREALBUMIN 11(L) 20 - 40 mg/dL INTERFACE SYSTEM 01/10/2006 3:15 AM CDT Romie Laughlin MD CHEMISTRY ORDERABLES Final R esult Performing Organization Address [facility] Phone Number INTERFACE SYSTEM Refer to clinic/hospital department * (ABNORMAL) CALCIUM IONIZED (01/10/2006 3:15 AM CDT) CALCIUM IONIZED 4.40(L) 4.76 - 5.16 mg/dL INTERFACE SYSTEM 01/10/2006 3:15 AM CDT Romie Laughlin MD CHEMISTRY ORDERABLES Final R esult Performing Organization Address [facility] Phone Number INTERFACE SYSTEM Refer to clinic/hospital department * (ABNORMAL) PHOSPHORUS (01/10/2006 3:15 AM CDT) PHOSPHORUS 4.9(H) 2.5 - 4.5 mg/dL INTERFACE SYSTEM 01/10/2006 3:15 AM CDT Romie Laughlin MD CHEMISTRY ORDERABLES Final R esult Performing Organization Address [facility] Phone Number INTERFACE SYSTEM Refer to clinic/hospital department * MAGNESIUM LEVEL (01/10/2006 3:15 AM CDT) MAGNESIUM 2.1 1.5 - 2.5 mg/dL INTERFACE SYSTEM 01/10/2006 3:15 AM CDT Romie Laughlin MD CHEMISTRY ORDERABLES Final R esult Performing Organization Address [facility] Phone Number INTERFACE SYSTEM Refer to clinic/hospital department * (ABNORMAL) COMPREHENSIVE METABOLIC PANEL (01/10/2006 3:15 AM CDT) GLUCOSE 96 65 - 99 mg/dL INTERFACE SYSTEM CREATININE 6.0(H) 0.5 - 1.3 mg/dL INTERFACE SYSTEM CALCIUM 7.9(L) 8.4 - 10.2 mg/dL INTERFACE SYSTEM ALKALINE PHOSPHATASE 72 40 - 129 U/L INTERFACE SYSTEM AST 55(H) 12 - 38 U/L INTERFACE SYSTEM ALT 197(H) 0 - 41 U/L INTERFACE SYSTEM TOTAL PROTEIN 4.4(L) 6.3 - 8.6 g/dL INTERFACE SYSTEM ALBUMIN 1.5(L) 3.4 - 4.8 g/dL INTERFACE SYSTEM BILIRUBIN TOTAL 0.5 0.2 - 1.0 mg/dL INTERFACE SYSTEM BUN 62(H) 6 - 20 mg/dL INTERFACE SYSTEM SODIUM 144 135 - 145 mmol/L INTERFACE SYSTEM POTASSIUM 3.6 3.5 - 4.9 mmol/L INTERFACE SYSTEM CHLORIDE 111(H) 96 - 108 mmol/L INTERFACE SYSTEM CO2 21(L) 22 - 30 mmol/L INTERFACE SYSTEM 01/10/2006 3:15 AM CDT Romie Laughlin MD CHEMISTRY ORDERABLES Final R esult Performing Organization Address [facility] Phone Number INTERFACE SYSTEM Refer to clinic/hospital department * (ABNORMAL) OCCULT BLOOD, STOOL (01/09/2006 11:11 PM CDT) OCCULT BLOOD, STOOL Positive(A ) Negative INTERFACE SYSTEM 01/09/2006 11:1 1 PM CDT Wicho Gomez MD BODY FLUIDS AND STOOLS Final Result Performing Organization Address [facility] Phone Number INTERFACE SYSTEM Refer to clinic/hospital department * (ABNORMAL) PTT (01/09/2006 11:09 PM CDT) PTT 43.0(H) 24.4 - 36.4 Seconds INTERFACE SYSTEM Comment: PTT Therapeutic Range: Heparin Level ? PTT (seconds) <0.10 units/mL ? <53 0.10 - 0.30 units/mL ? 53 - 67 0.30 - 0.70 units/mL* ?67 - 95* 0.70 - 1.00 units/mL ?95 - 116 *corresponds to therapeutic range for unfractionated heparin ?? 01/09/2006 11:0 9 PM CDT Wicho Gomez MD HEMATOLOGY ORDERABLES Final R esult Performing Organization Address [facility] Phone Number INTERFACE SYSTEM Refer to clinic/hospital department * POC GLUCOSE (01/09/2006 11:03 PM CDT) GLUCOSE POC 86 65 - 109 mg/dL INTERFACE SYSTEM 01/09/2006 11:0 3 PM CDT us Wicho Gomez MD POINT OF CARE TESTING Final R esult Performing Organization Address [facility] Phone Number INTERFACE SYSTEM Refer to clinic/hospital department * POC GLUCOSE (01/09/2006 5:23 PM CDT) GLUCOSE POC 104 65 - 109 mg/dL INTERFACE SYSTEM 01/09/2006 5:23 PM CDT us Wicho Gomez MD POINT OF CARE TESTING Final R esult Performing Organization Address [facility] Phone Number INTERFACE SYSTEM Refer to clinic/hospital department * (ABNORMAL) PTT (01/09/2006 2:30 PM CDT) PTT 50.9(H) 24.4 - 36.4 Seconds INTERFACE SYSTEM Comment: PTT Therapeutic Range: Heparin Level ? PTT (seconds) <0.10 units/mL ? <53 0.10 - 0.30 units/mL ? 53 - 67 0.30 - 0.70 units/mL* ?67 - 95* 0.70 - 1.00 units/mL ?95 - 116 *corresponds to therapeutic range for unfractionated heparin ?? 01/09/2006 2:30 PM CDT Romie Laughlin MD HEMATOLOGY ORDERABLES Final Result Performing Organization Address [facility] Phone Number INTERFACE SYSTEM Refer to clinic/hospital department * POC GLUCOSE (01/09/2006 11:56 AM CDT) GLUCOSE POC 107 65 - 109 mg/dL INTERFACE SYSTEM 01/09/2006 11:5 6 AM CDT us Wicho Gomez MD POINT OF CARE TESTING Final R esult Performing Organization Address [facility] Phone Number INTERFACE SYSTEM Refer to clinic/hospital department * (ABNORMAL) PTT (01/09/2006 7:00 AM CDT) PTT 70.3(H) 24.4 - 36.4 Seconds INTERFACE SYSTEM Comment: PTT Therapeutic Range: Heparin Level ? PTT (seconds) <0.10 units/mL ? <53 0.10 - 0.30 units/mL ? 53 - 67 0.30 - 0.70 units/mL* ?67 - 95* 0.70 - 1.00 units/mL ?95 - 116 *corresponds to therapeutic range for unfractionated heparin ?? 01/09/2006 7:00 AM CDT us Romie Laughlin MD HEMATOLOGY ORDERABLES Final Result Performing Organization Address [facility] Phone Number INTERFACE SYSTEM Refer to clinic/hospital department * T4 FREE (01/09/2006 3:45 AM CDT) T4 FREE 0.9 0.9 - 1.7 ng/dL INTERFACE SYSTEM 01/09/2006 3:45 AM CDT us Romie Laughlin MD CHEMISTRY ORDERABLES Final R esult Performing Organization Address [facility] Phone Number INTERFACE SYSTEM Refer to clinic/hospital department * (ABNORMAL) CBC WITH DIFFERENTIAL (01/09/2006 3:45 AM CDT) NEUTROPHILS 84(H) 45 - 70 % INTERFAC E SYSTEM LYMPHOCYTES 9(L) 16 - 45 % INTERFAC E SYSTEM MONOCYTES 7 3 - 13 % INTERFACE SYSTEM EOSINOPHILS 0 0 - 7 % INTERFAC E SYSTEM BASOPHILS 0 0 - 2 % INTERFACE SYSTEM NEUTROPHIL ABSOLUTE 8.59(H) 1.90 - 7.00 K/uL INTERFACE SYSTEM LYMPHOCYTE ABSOLUTE 0.94 0.70 - 4.50 K/uL INTERFACE SYSTEM MONOCYTE ABSOLUTE 0.66 0.10 - 1.30 K/uL INTERFACE SYSTEM EOSINOPHIL ABSOLUTE 0.01 0.00 - 0.70 K/uL INTERFACE SYSTEM BASOPHILS ABSOLUTE 0.01 0.00 - 0.20 K/uL INTERFACE SYSTEM 01/09/2006 3:45 AM CDT Romie Laughlin MD HEMATOLOGY ORDERABLES Final Result Performing Organization Address [place]/[facility] de Phone Number INTERFACE SYSTEM Refer to clinic/hospital department * (ABNORMAL) CBC WITH DIFFERENTIAL (01/09/2006 3:45 AM CDT) WBC 10.2(H) 4.0 - 9.8 K/uL INTERFACE SYSTEM RBC 3.24(L) 4.50 - 5.40 M/uL INTERFACE SYSTEM HEMOGLOBIN 9.6(L) 13.6 - 16.5 g/dL INTERFACE SYSTEM HEMATOCRIT 29.4(L) 40.0 - 48.0 % INTERFACE SYSTEM MCV 90.7 82.0 - 99.0 fL INTERFACE SYSTEM MCH 29.6 27.2 - 32.6 pg INTERFACE SYSTEM MCHC 32.7 31.5 - 35.5 % INTERFACE SYSTEM RDW 16.4(H) 11.5 - 14.5 % INTERFACE SYSTEM RDW-STDEV 53.9(H) 37.1 - 48.7 fL INTERFACE SYSTEM PLATELETS 139(L) 140 - 350 K/uL INTERFACE SYSTEM MPV 10.0 9.3 - 12.4 fL INTERFACE SYSTEM 01/09/2006 3:45 AM CDT Romie Laughlin MD HEMATOLOGY ORDERABLES Final Result Performing Organization Address [place]/[facility] de Phone Number INTERFACE SYSTEM Refer to clinic/hospital department * CORTISOL LEVEL (01/09/2006 3:45 AM CDT) CORTISOL LEVEL 27.8 ug/dL INTER FACE SYSTEM Comment: Cortisol Reference Range: 7 - 10 AM: ?? 6.2 - 19.4 ug/dL 4 - ??8 PM: ?? 2.3 - 11.9 ug/dL 01/09/2006 3:45 AM CDT Wicho Gomez MD CHEMISTRY ORDERABLES Final Re sult Performing Organization Address [facility] Phone Number INTERFACE SYSTEM Refer to clinic/hospital department * (ABNORMAL) BLOOD GAS ARTERIAL (01/09/2006 3:45 AM CDT) PH ARTERIAL 7.34(L) 7.35 - 7.45 INTERFACE SYSTEM PCO2 ARTERIAL 42 35 - 48 mm Hg INTERFACE SYSTEM PO2 ARTERIAL 84 83 - 108 mm Hg INTERFACE SYSTEM SO2 ABG 97 95 - 99 % INTERFACE SYSTEM FO2HB ABG 96 94 - 98 % INTERFACE SYSTEM HCO3 ARTERIAL 22 22 - 26 mmol/L INTERFACE SYSTEM BASE EXCESS ABG -3.2(L) -2.0 - 3.0 mmol/L INTERFACE SYSTEM O2 CONC ARTERIAL 30% INTERFACE SYSTEM 01/09/2006 3:45 AM CDT Wicho Gomez MD ABG ORDERABLES Final Result Performing Organization Address [facility] Phone Number INTERFACE SYSTEM Refer to clinic/hospital department * (ABNORMAL) TSH REFLEXIVE (01/09/2006 3:45 AM CDT) TSH 5.20(H) 0.27 - 4.20 uU/mL INTERFACE SYSTEM Comment:Verified by repeat a nalysis. 01/09/2006 3:45 AM CDT Romie Laughlin MD CHEMISTRY ORDERABLES Final R esult Performing Organization Address [facility] Phone Number INTERFACE SYSTEM Refer to clinic/hospital department * (ABNORMAL) C-REACTIVE PROTEIN (01/09/2006 3:45 AM CDT) CRP 17.8(H) 0.0 - 0.8 mg/dL INTERFACE SYSTEM 01/09/2006 3:45 AM CDT Romie Laughlin MD CHEMISTRY ORDERABLES Final R esult Performing Organization Address [facility] Phone Number INTERFACE SYSTEM Refer to clinic/hospital department * (ABNORMAL) CALCIUM IONIZED (01/09/2006 3:45 AM CDT) CALCIUM IONIZED 4.60(L) 4.76 - 5.16 mg/dL INTERFACE SYSTEM 01/09/2006 3:45 AM CDT Romie Laughlin MD CHEMISTRY ORDERABLES Final R esult Performing Organization Address [facility] Phone Number INTERFACE SYSTEM Refer to clinic/hospital department * (ABNORMAL) PHOSPHORUS (01/09/2006 3:45 AM CDT) PHOSPHORUS 5.8(H) 2.5 - 4.5 mg/dL INTERFACE SYSTEM 01/09/2006 3:45 AM CDT Romie Laughlin MD CHEMISTRY ORDERABLES Final R esult Performing Organization Address [facility] Phone Number INTERFACE SYSTEM Refer to clinic/hospital department * MAGNESIUM LEVEL (01/09/2006 3:45 AM CDT) MAGNESIUM 2.0 1.5 - 2.5 mg/dL INTERFACE SYSTEM 01/09/2006 3:45 AM CDT Romie Laughlin MD CHEMISTRY ORDERABLES Final R esult Performing Organization Address [facility] Phone Number INTERFACE SYSTEM Refer to clinic/hospital department * (ABNORMAL) COMPREHENSIVE METABOLIC PANEL (01/09/2006 3:45 AM CDT) GLUCOSE 113(H) 65 - 99 mg/dL INTERFACE SYSTEM CREATININE 5.5(H) 0.5 - 1.3 mg/dL INTERFACE SYSTEM CALCIUM 7.9(L) 8.4 - 10.2 mg/dL INTERFACE SYSTEM ALKALINE PHOSPHATASE 65 40 - 129 U/L INTERFACE SYSTEM AST 159(H) 12 - 38 U/L INTERFACE SYSTEM ALT 298(H) 0 - 41 U/L INTERFACE SYSTEM TOTAL PROTEIN 4.1(L) 6.3 - 8.6 g/dL INTERFACE SYSTEM ALBUMIN 1.3(L) 3.4 - 4.8 g/dL INTERFACE SYSTEM BILIRUBIN TOTAL 0.4 0.2 - 1.0 mg/dL INTERFACE SYSTEM BUN 57(H) 6 - 20 mg/dL INTERFACE SYSTEM SODIUM 145 135 - 145 mmol/L INTERFACE SYSTEM POTASSIUM 3.7 3.5 - 4.9 mmol/L INTERFACE SYSTEM CHLORIDE 112(H) 96 - 108 mmol/L INTERFACE SYSTEM CO2 23 22 - 30 mmol/L INTERFACE SYSTEM 01/09/2006 3:45 AM CDT Romie Laughlin MD CHEMISTRY ORDERABLES Final R esult Performing Organization Address [facility] de Phone Number INTERFACE SYSTEM Refer to clinic/hospital department * (ABNORMAL) PTT (01/09/2006 1:00 AM CDT) PTT 74.3(H) 24.4 - 36.4 Seconds INTERFACE SYSTEM Comment: PTT Therapeutic Range: Heparin Level ? PTT (seconds) <0.10 units/mL ? <53 0.10 - 0.30 units/mL ? 53 - 67 0.30 - 0.70 units/mL* ?67 - 95* 0.70 - 1.00 units/mL ?95 - 116 *corresponds to therapeutic range for unfractionated heparin ?? 01/09/2006 1:00 AM CDT oRmie Laughlin MD HEMATOLOGY ORDERABLES Final Result Performing Organization Address [facility] Phone Number INTERFACE SYSTEM Refer to clinic/hospital department * (ABNORMAL) POC GLUCOSE (01/08/2006 11:34 PM CDT) GLUCOSE POC 127(H) 65 - 109 mg/dL INTERFACE SYSTEM 01/08/2006 11:3 4 PM CDT us Wicho Gomez MD POINT OF CARE TESTING Final R esult Performing Organization Address [facility] Phone Number INTERFACE SYSTEM Refer to clinic/hospital department * (ABNORMAL) PTT (01/08/2006 6:39 PM CDT) PTT 85.3(H) 24.4 - 36.4 Seconds INTERFACE SYSTEM Comment: PTT Therapeutic Range: Heparin Level ? PTT (seconds) <0.10 units/mL ? <53 0.10 - 0.30 units/mL ? 53 - 67 0.30 - 0.70 units/mL* ?67 - 95* 0.70 - 1.00 units/mL ?95 - 116 *corresponds to therapeutic range for unfractionated heparin ?? 01/08/2006 6:39 PM CDT Romie Laughlin MD HEMATOLOGY ORDERABLES Final Result Performing Organization Address [facility] Phone Number INTERFACE SYSTEM Refer to clinic/hospital department * (ABNORMAL) BLOOD GAS ARTERIAL (01/08/2006 4:10 PM CDT) PH ARTERIAL 7.34(L) 7.35 - 7.45 INTERFACE SYSTEM PCO2 ARTERIAL 43 35 - 48 mm Hg INTERFACE SYSTEM PO2 ARTERIAL 91 83 - 108 mm Hg INTERFACE SYSTEM SO2 ABG 98 95 - 99 % INTERFACE SYSTEM FO2HB ABG 97 94 - 98 % INTERFACE SYSTEM HCO3 ARTERIAL 22 22 - 26 mmol/L INTERFACE SYSTEM BASE EXCESS ABG -3.3(L) -2.0 - 3.0 mmol/L INTERFACE SYSTEM O2 CONC ARTERIAL 30% INTERFACE SYSTEM 01/08/2006 4:10 PM CDT Romie Laughlin MD ABG ORDERABLES Final Result Performing Organization Address [facility] de Phone Number INTERFACE SYSTEM Refer to clinic/hospital department * (ABNORMAL) PHOSPHORUS (01/08/2006 4:00 PM CDT) PHOSPHORUS 6.2(H) 2.5 - 4.5 mg/dL INTERFACE SYSTEM 01/08/2006 4:00 PM CDT Romie Laughlin MD CHEMISTRY ORDERABLES Final R esult Performing Organization Address [facility] Phone Number INTERFACE SYSTEM Refer to clinic/hospital department * MAGNESIUM LEVEL (01/08/2006 4:00 PM CDT) MAGNESIUM 2.1 1.5 - 2.5 mg/dL INTERFACE SYSTEM 01/08/2006 4:00 PM CDT Romie Laughlin MD CHEMISTRY ORDERABLES Final R esult Performing Organization Address [facility] Phone Number INTERFACE SYSTEM Refer to clinic/hospital department * (ABNORMAL) BASIC METABOLIC PANEL (01/08/2006 4:00 PM CDT) GLUCOSE 107(H) 65 - 99 mg/dL INTERFACE SYSTEM CREATININE 5.2(H) 0.5 - 1.3 mg/dL INTERFACE SYSTEM CALCIUM 8.1(L) 8.4 - 10.2 mg/dL INTERFACE SYSTEM BUN 55(H) 6 - 20 mg/dL INTERFACE SYSTEM SODIUM 144 135 - 145 mmol/L INTERFACE SYSTEM POTASSIUM 3.8 3.5 - 4.9 mmol/L INTERFACE SYSTEM CHLORIDE 110(H) 96 - 108 mmol/L INTERFACE SYSTEM CO2 22 22 - 30 mmol/L INTERFACE SYSTEM 01/08/2006 4:00 PM CDT Romie Laughlin MD CHEMISTRY ORDERABLES Final R esult Performing Organization Address [facility] Phone Number INTERFACE SYSTEM Refer to clinic/hospital department * CORTISOL, 60 MINUTE (01/08/2006 12:50 PM CDT) CORTISOL, 60 MINUTE 44.9 ug/dL INTERFACE SYSTEM Comment: Collection date/time has been modified to: 12:50:00. ??Previous collection date/time: 11:45:00. 01/08/2006 12:5 0 PM CDT Romie Laughlin MD CHEMISTRY ORDERABLES Final R esult Performing Organization Address [facility] Phone Number INTERFACE SYSTEM Refer to clinic/hospital department * (ABNORMAL) POC GLUCOSE (01/08/2006 12:02 PM CDT) GLUCOSE POC 112(H) 65 - 109 mg/dL INTERFACE SYSTEM 01/08/2006 12:0 2 PM CDT Wicho Gomez MD POINT OF CARE TESTING [facility] Performing Organization Address [facility] Phone Number INTERFACE SYSTEM Refer to clinic/hospital department * CORTISOL, 30 MINUTE (01/08/2006 11:45 AM CDT) CORTISOL, 30 MINUTE 44.7 ug/dL INTERFACE SYSTEM 01/08/2006 11:4 5 AM CDT Result [facility] Romei Laughlin MD CHEMISTRY ORDERABLES Final R [facility] Performing Organization Address [facility] Phone Number INTERFACE SYSTEM Refer to clinic/hospital department * CORTISOL, BASELINE (01/08/2006 11:45 AM CDT) CORTROSYN STIMULATION INTERP INTERFACE SYSTEM Comment: Cortrosyn Stimulation Test Normal Response: ? Baseline Cortisol: ??>5 ug/dL ? 30 minutes: ??Rise of 7 ug/dL above baseline ? 60 minutes: ??Rise of 18 ug/dL above baseline or peak ? >20 ug/dL ?? CORTISOL, BASELINE 36.2 ug/dL INTERFACE SYSTEM 01/08/2006 11:4 5 AM CDT Romie Laughlin MD CHEMISTRY ORDERABLES Final R esult Performing Organization Address [facility] Phone Number INTERFACE SYSTEM Refer to clinic/hospital department * (ABNORMAL) PTT (01/08/2006 10:05 AM CDT) PTT 109.0(AA) 24.4 - 36.4 Seconds INTERFACE SYSTEM Comment: PTT Therapeutic Range: Heparin Level ? PTT (seconds) <0.10 units/mL ? <53 0.10 - 0.30 units/mL ? 53 - 67 0.30 - 0.70 units/mL* ?67 - 95* 0.70 - 1.00 units/mL ?95 - 116 *corresponds to therapeutic range for unfractionated heparin ?? Results called to PAOLA at 01/08/2006 11:55 AM and read back verified. 01/08/2006 10:0 5 AM CDT us Romie Laughlin MD HEMATOLOGY ORDERABLES Final Result Performing Organization Address [facility] Phone Number INTERFACE SYSTEM Refer to clinic/hospital department * (ABNORMAL) POC GLUCOSE (01/08/2006 5:22 AM CDT) GLUCOSE POC 113(H) 65 - 109 mg/dL INTERFACE SYSTEM 01/08/2006 5:22 AM CDT us Wicho Gomez MD POINT OF CARE TESTING Final R esult Performing Organization Address [facility] Phone Number INTERFACE SYSTEM Refer to clinic/hospital department * (ABNORMAL) PTT (01/08/2006 3:15 AM CDT) PTT 94.6(H) 24.4 - 36.4 Seconds INTERFACE SYSTEM Comment: PTT Therapeutic Range: Heparin Level ? PTT (seconds) <0.10 units/mL ? <53 0.10 - 0.30 units/mL ? 53 - 67 0.30 - 0.70 units/mL* ?67 - 95* 0.70 - 1.00 units/mL ?95 - 116 *corresponds to therapeutic range for unfractionated heparin ?? 01/08/2006 3:15 AM CDT Wicho Gomez MD HEMATOLOGY ORDERABLES Final R esult Performing Organization Address [facility] de Phone Number INTERFACE SYSTEM Refer to clinic/hospital department * CKMB W/REFLEX CK (01/08/2006 3:15 AM CDT) CKMB 5.4 <=6.7 ng/mL INTERFACE SYSTEM CKMB INTERP Negative INTERFAC E SYSTEM 01/08/2006 3:15 AM CDT Wicho Gomez MD CHEMISTRY ORDERABLES Final Re sult Performing Organization Address [facility] de Phone Number INTERFACE SYSTEM Refer to clinic/hospital department * (ABNORMAL) TROPONIN (W/REFLEX CKMB/CK) (01/08/2006 3:15 AM CDT) TROPONIN T 0.13(AA) <=0.03 ng/mL INTERFACE SYSTEM Comment:Persistent abnormal result TROPONIN T INTERP See Below INTERFACE SYSTEM Comment:Elevated Troponin-T, Consistent with Myocardial Injury 01/08/2006 3:15 AM CDT Wicho Gomez MD CHEMISTRY ORDERABLES Final Re sult Performing Organization Address [facility] de Phone Number INTERFACE SYSTEM Refer to clinic/hospital department * (ABNORMAL) BLOOD GAS ARTERIAL (01/08/2006 3:15 AM CDT) PH ARTERIAL 7.39 7.35 - 7.45 INTERFACE SYSTEM PCO2 ARTERIAL 37 35 - 48 mm Hg INTERFACE SYSTEM PO2 ARTERIAL 122(H) 83 - 108 mm Hg INTERFACE SYSTEM SO2 ABG 99 95 - 99 % INTERFACE SYSTEM FO2HB ABG 98 94 - 98 % INTERFACE SYSTEM HCO3 ARTERIAL 22 22 - 26 mmol/L INTERFACE SYSTEM BASE EXCESS ABG -2.8(L) -2.0 - 3.0 mmol/L INTERFACE SYSTEM O2 CONC ARTERIAL 45% INTERFACE SYSTEM 01/08/2006 3:15 AM CDT us Wicho Gomez MD ABG ORDERABLES Final Result Performing Organization Address [facility] de Phone Number INTERFACE SYSTEM Refer to clinic/hospital department * (ABNORMAL) CBC WITH DIFFERENTIAL (01/08/2006 3:15 AM CDT) NEUTROPHILS 88(H) 45 - 70 % INTERFAC E SYSTEM LYMPHOCYTES 7(L) 16 - 45 % INTERFAC E SYSTEM MONOCYTES 5 3 - 13 % INTERFACE SYSTEM EOSINOPHILS 0 0 - 7 % INTERFAC E SYSTEM BASOPHILS 0 0 - 2 % INTERFACE SYSTEM NEUTROPHIL ABSOLUTE 12.61(H) 1.90 - 7.00 K/uL INTERFACE SYSTEM LYMPHOCYTE ABSOLUTE 1.05 0.70 - 4.50 K/uL INTERFACE SYSTEM MONOCYTE ABSOLUTE 0.70 0.10 - 1.30 K/uL INTERFACE SYSTEM EOSINOPHIL ABSOLUTE 0.00 0.00 - 0.70 K/uL INTERFACE SYSTEM BASOPHILS ABSOLUTE 0.01 0.00 - 0.20 K/uL INTERFACE SYSTEM 01/08/2006 3:15 AM CDT us Romie Laughlin MD HEMATOLOGY ORDERABLES Final Result Performing Organization Address [facility] de Phone Number INTERFACE SYSTEM Refer to clinic/hospital department * (ABNORMAL) CBC WITH DIFFERENTIAL (01/08/2006 3:15 AM CDT) WBC 14.4(H) 4.0 - 9.8 K/uL INTERFACE SYSTEM RBC 3.29(L) 4.50 - 5.40 M/uL INTERFACE SYSTEM HEMOGLOBIN 9.9(L) 13.6 - 16.5 g/dL INTERFACE SYSTEM HEMATOCRIT 30.3(L) 40.0 - 48.0 % INTERFACE SYSTEM MCV 92.1 82.0 - 99.0 fL INTERFACE SYSTEM MCH 30.1 27.2 - 32.6 pg INTERFACE SYSTEM MCHC 32.7 31.5 - 35.5 % INTERFACE SYSTEM RDW 16.0(H) 11.5 - 14.5 % INTERFACE SYSTEM RDW-STDEV 53.4(H) 37.1 - 48.7 fL INTERFACE SYSTEM PLATELETS 175 140 - 350 K/uL INTERFACE SYSTEM MPV 10.0 9.3 - 12.4 fL INTERFACE SYSTEM 01/08/2006 3:15 AM CDT Romie Laughlin MD HEMATOLOGY ORDERABLES Final Result Performing Organization Address [facility] Phone Number INTERFACE SYSTEM Refer to clinic/hospital department * (ABNORMAL) CALCIUM IONIZED (01/08/2006 3:15 AM CDT) CALCIUM IONIZED 4.68(L) 4.76 - 5.16 mg/dL INTERFACE SYSTEM 01/08/2006 3:15 AM CDT Romie Laughlin MD CHEMISTRY ORDERABLES Final R esult Performing Organization Address [facility] Phone Number INTERFACE SYSTEM Refer to clinic/hospital department * (ABNORMAL) PHOSPHORUS (01/08/2006 3:15 AM CDT) PHOSPHORUS 6.0(H) 2.5 - 4.5 mg/dL INTERFACE SYSTEM 01/08/2006 3:15 AM CDT Romie Laughlin MD CHEMISTRY ORDERABLES Final R esult Performing Organization Address [facility] Phone Number INTERFACE SYSTEM Refer to clinic/hospital department * MAGNESIUM LEVEL (01/08/2006 3:15 AM CDT) MAGNESIUM 2.0 1.5 - 2.5 mg/dL INTERFACE SYSTEM 01/08/2006 3:15 AM CDT Romie Laughlin MD CHEMISTRY ORDERABLES Final R esult Performing Organization Address [facility] Phone Number INTERFACE SYSTEM Refer to clinic/hospital department * (ABNORMAL) COMPREHENSIVE METABOLIC PANEL (01/08/2006 3:15 AM CDT) GLUCOSE 101(H) 65 - 99 mg/dL INTERFACE SYSTEM CREATININE 5.0(H) 0.5 - 1.3 mg/dL INTERFACE SYSTEM CALCIUM 7.6(L) 8.4 - 10.2 mg/dL INTERFACE SYSTEM ALKALINE PHOSPHATASE 54 40 - 129 U/L INTERFACE SYSTEM AST 629(H) 12 - 38 U/L INTERFACE SYSTEM ALT 394(H) 0 - 41 U/L INTERFACE SYSTEM TOTAL PROTEIN 3.9(L) 6.3 - 8.6 g/dL INTERFACE SYSTEM ALBUMIN 1.2(L) 3.4 - 4.8 g/dL INTERFACE SYSTEM BILIRUBIN TOTAL 0.5 0.2 - 1.0 mg/dL INTERFACE SYSTEM BUN 50(H) 6 - 20 mg/dL INTERFACE SYSTEM SODIUM 145 135 - 145 mmol/L INTERFACE SYSTEM POTASSIUM 4.0 3.5 - 4.9 mmol/L INTERFACE SYSTEM CHLORIDE 110(H) 96 - 108 mmol/L INTERFACE SYSTEM CO2 23 22 - 30 mmol/L INTERFACE SYSTEM 01/08/2006 3:15 AM CDT us Romie Laughlin MD CHEMISTRY ORDERABLES Final R esult Performing Organization Address [place]/[facility] Co de Phone Number INTERFACE SYSTEM Refer to clinic/hospital department * (ABNORMAL) POC GLUCOSE (01/08/2006 12:08 AM CDT) GLUCOSE POC 120(H) 65 - 109 mg/dL INTERFACE SYSTEM 01/08/2006 12:0 8 AM CDT us Wicho Gomez MD POINT OF CARE TESTING Final R esult INTERFACE SYSTEM Refer to clinic/hospital department * (ABNORMAL) BLOOD GAS ARTERIAL (01/07/2006 9:50 PM CDT) PH ARTERIAL 7.35 7.35 - 7.45 INTERFACE SYSTEM PCO2 ARTERIAL 37 35 - 48 mm Hg INTERFACE SYSTEM PO2 ARTERIAL 259(H) 83 - 108 mm Hg INTERFACE SYSTEM O2 SAT EST ARTERIAL 100(H) 94 - 98 % INTERFACE SYSTEM HCO3 ARTERIAL 20(L) 22 - 26 mmol/L INTERFACE SYSTEM BASE EXCESS ABG -5.2(L) -2.0 - 3.0 mmol/L INTERFACE SYSTEM O2 CONC ARTERIAL .70 INTERFACE SYSTEM 01/07/2006 9:50 PM CDT Romie Laughlin MD ABG ORDERABLES Final Result Performing Organization Address [facility] de Phone Number INTERFACE SYSTEM Refer to clinic/hospital department * (ABNORMAL) TROPONIN (01/07/2006 9:30 PM CDT) TROPONIN T 0.12(AA) <=0.03 ng/mL INTERFACE SYSTEM Comment:Results called to Marco A abdalla at 01/07/2006 10:04 PM and read back verified. TROPONIN T INTERP See Below INTERFACE SYSTEM Comment:Elevated Troponin-T, Consistent with Myocardial Injury 01/07/2006 9:30 PM CDT Romie Laughlin MD CHEMISTRY ORDERABLES Final R esult Performing Organization Address [facility] de Phone Number INTERFACE SYSTEM Refer to clinic/hospital department * CKMB W/REFLEX CK (01/07/2006 9:30 PM CDT) Pathologist [facility] CKMB 4.7 <=6.7 ng/mL INTERFACE SYSTEM CKMB INTERP Negative INTERFAC E SYSTEM 01/07/2006 9:30 PM CDT Romie Laughlin MD CHEMISTRY ORDERABLES Final R esult Performing Organization Address [facility] de Phone Number INTERFACE SYSTEM Refer to clinic/hospital department * (ABNORMAL) CBC WITH DIFFERENTIAL (01/07/2006 9:30 PM CDT) NEUTROPHIL ABSOLUTE 15.64(H) 1.90 - 7.00 K/uL INTERFACE SYSTEM LYMPHOCYTE ABSOLUTE 1.02 0.70 - 4.50 K/uL INTERFACE SYSTEM MONOCYTE ABSOLUTE 0.34 0.10 - 1.30 K/uL INTERFACE SYSTEM EOSINOPHIL ABSOLUTE 0.00 0.00 - 0.70 K/uL INTERFACE SYSTEM BASOPHILS ABSOLUTE 0.00 0.00 - 0.20 K/uL INTERFACE SYSTEM NEUTROPHILS, SEG 82(H) 45 - 70 % INT ERFACE SYSTEM BANDS 10(H) 0 - 5 % INTERFACE SYSTEM LYMPHOCYTES 6(L) 16 - 45 % INTERFAC E SYSTEM MONOCYTES 2(L) 3 - 13 % INTERFACE SYSTEM EOSINOPHILS 0 0 - 7 % INTERFAC E SYSTEM BASOPHILS 0 0 - 2 % INTERFACE SYSTEM PLATELET EST. Consistent w/ count Normal INTERFACE SYSTEM ANISOCYTOSIS Slight INTERFA CE SYSTEM POIKILOCYTES Slight INTERFA CE SYSTEM REVIEWED ON SMEAR WBC & Plt Reviewed INTERFACE SYSTEM 01/07/2006 9:30 PM CDT Romie Laughlin MD HEMATOLOGY ORDERABLES Final Result Performing Organization Address [facility] de Phone Number INTERFACE SYSTEM Refer to clinic/hospital department * (ABNORMAL) CBC WITH DIFFERENTIAL (01/07/2006 9:30 PM CDT) WBC 17.0(H) 4.0 - 9.8 K/uL INTERFACE SYSTEM RBC 3.38(L) 4.50 - 5.40 M/uL INTERFACE SYSTEM HEMOGLOBIN 9.9(L) 13.6 - 16.5 g/dL INTERFACE SYSTEM HEMATOCRIT 31.7(L) 40.0 - 48.0 % INTERFACE SYSTEM MCV 93.8 82.0 - 99.0 fL INTERFACE SYSTEM MCH 29.3 27.2 - 32.6 pg INTERFACE SYSTEM MCHC 31.2(L) 31.5 - 35.5 % INTERFACE SYSTEM RDW 16.1(H) 11.5 - 14.5 % INTERFACE SYSTEM RDW-STDEV 55.1(H) 37.1 - 48.7 fL INTERFACE SYSTEM PLATELETS 242 140 - 350 K/uL INTERFACE SYSTEM MPV 9.7 9.3 - 12.4 fL INTERFACE SYSTEM 01/07/2006 9:30 PM CDT Romie Laughlin MD HEMATOLOGY ORDERABLES Final Result Performing Organization Address [facility] Co de Phone Number INTERFACE SYSTEM Refer to clinic/hospital department * (ABNORMAL) CK (01/07/2006 9:30 PM CDT) CK 199(H) 10 - 170 U/L INTERFACE SYSTEM 01/07/2006 9:30 PM CDT Romie Laughlin MD CHEMISTRY ORDERABLES Final R esult Performing Organization Address [facility] Phone Number INTERFACE SYSTEM Refer to clinic/hospital department * (ABNORMAL) CALCIUM IONIZED (01/07/2006 9:30 PM CDT) CALCIUM IONIZED 4.52(L) 4.76 - 5.16 mg/dL INTERFACE SYSTEM 01/07/2006 9:30 PM CDT Romie Laughlin MD CHEMISTRY ORDERABLES Final R esult Performing Organization Address [facility] Phone Number INTERFACE SYSTEM Refer to clinic/hospital department * (ABNORMAL) PHOSPHORUS (01/07/2006 9:30 PM CDT) PHOSPHORUS 6.9(H) 2.5 - 4.5 mg/dL INTERFACE SYSTEM 01/07/2006 9:30 PM CDT Romie Laughlin MD CHEMISTRY ORDERABLES Final R esult Performing Organization Address [facility] Phone [facility] INTERFACE SYSTEM Refer to clinic/hospital department * MAGNESIUM LEVEL (01/07/2006 9:30 PM CDT) MAGNESIUM 2.3 1.5 - 2.5 mg/dL INTERFACE SYSTEM 01/07/2006 9:30 PM CDT Romie Laughlin MD CHEMISTRY ORDERABLES Final R esult Performing Organization Address [facility] Phone Number INTERFACE SYSTEM Refer to clinic/hospital department * (ABNORMAL) BASIC METABOLIC PANEL (01/07/2006 9:30 PM CDT) GLUCOSE 113(H) 65 - 99 mg/dL INTERFACE SYSTEM CREATININE 4.8(H) 0.5 - 1.3 mg/dL INTERFACE SYSTEM CALCIUM 7.8(L) 8.4 - 10.2 mg/dL INTERFACE SYSTEM BUN 48(H) 6 - 20 mg/dL INTERFACE SYSTEM SODIUM 144 135 - 145 mmol/L INTERFACE SYSTEM POTASSIUM 4.0 3.5 - 4.9 mmol/L INTERFACE SYSTEM CHLORIDE 109(H) 96 - 108 mmol/L INTERFACE SYSTEM CO2 21(L) 22 - 30 mmol/L INTERFACE SYSTEM 01/07/2006 9:30 PM CDT us Romie Laughlin MD CHEMISTRY ORDERABLES Final R esult Performing Organization Address [facility] de Phone Number INTERFACE SYSTEM Refer to clinic/hospital department * (ABNORMAL) PTT (01/07/2006 9:30 PM CDT) PTT 53.5(H) 24.4 - 36.4 Seconds INTERFACE SYSTEM Comment: PTT Therapeutic Range: Heparin Level ? PTT (seconds) <0.10 units/mL ? <53 0.10 - 0.30 units/mL ? 53 - 67 0.30 - 0.70 units/mL* ?67 - 95* 0.70 - 1.00 units/mL ?95 - 116 *corresponds to therapeutic range for unfractionated heparin ?? 01/07/2006 9:30 PM CDT us Romie Laughlin MD HEMATOLOGY ORDERABLES Final Result Performing Organization Address [facility] de Phone Number INTERFACE SYSTEM Refer to clinic/hospital department * (ABNORMAL) PTT (01/07/2006 6:05 PM CDT) PTT 47.3(H) 24.4 - 36.4 Seconds INTERFACE SYSTEM Comment: PTT Therapeutic Range: Heparin Level ? PTT (seconds) <0.10 units/mL ? <53 0.10 - 0.30 units/mL ? 53 - 67 0.30 - 0.70 units/mL* ?67 - 95* 0.70 - 1.00 units/mL ?95 - 116 *corresponds to therapeutic range for unfractionated heparin ?? 01/07/2006 6:05 PM CDT Romie Laughlin MD HEMATOLOGY ORDERABLES Final Result Performing Organization Address [facility] Phone Number INTERFACE SYSTEM Refer to clinic/hospital department * (ABNORMAL) LACTIC ACID (01/07/2006 4:00 PM CDT) LACTIC ACID 11.3(AA) 0.5 - 2.2 mmol/L INTERFACE SYSTEM Comment:Results called to lea tristan at 01/07/2006 4:28 PM and read back verified. LACTIC ACID - SEPSIS INDICATOR Sepsis Potential: Potential candidate for Sepsis Protocol. INTERFACE SYSTEM 01/07/2006 4:00 PM CDT Romie Laughlin MD CHEMISTRY ORDERABLES Final R esult Performing Organization Address [facility] Phone Number INTERFACE SYSTEM Refer to clinic/hospital department * (ABNORMAL) PT AND APTT (01/07/2006 4:00 PM CDT) PROTIME 20.2(H) 12.7 - 15.1 Seconds INTERFACE SYSTEM INR 1.6(H) 0.9 - 1.1 INTERFACE SYSTEM Comment: INR Therapeutic Range: Adult: 2.0 - 3.0 for pulmonary embolism or prophylaxis against venous thrombosis or systemic embolization. 2.0 - 3.0 for patients with tissue heart valves. ?? 2.5 - 3.5 for patients with mechanical heart valves or post MD. Pediatric ??(12 years and under): 1.5 - 3.0 Although the target range in children is not well established , INR values of 1.5 - 3.0 are recommended for most patients. Higher values have been used in children with prosthetic cardiac valves and hereditary clotting disorders. (<3 days) therapeutic ranges have not been established. PTT 81.1(H) 24.4 - 36.4 Seconds INTERFACE SYSTEM Comment: PTT Therapeutic Range: Heparin Level ? PTT (seconds) <0.10 units/mL ? <53 0.10 - 0.30 units/mL ? 53 - 67 0.30 - 0.70 units/mL* ?67 - 95* 0.70 - 1.00 units/mL ?95 - 116 *corresponds to therapeutic range for unfractionated heparin ?? 01/07/2006 4:00 PM CDT Romie Laughlin MD HEMATOLOGY ORDERABLES Final Result Performing Organization Address [facility] de Phone Number INTERFACE SYSTEM Refer to clinic/hospital department * (ABNORMAL) BLOOD GAS ARTERIAL (01/07/2006 4:00 PM CDT) PH ARTERIAL 7.13(AA) 7.35 - 7.45 INTERFACE SYSTEM Comment:Results called to Marco A abdalla at 01/07/2006 4:19 PM and read back verified. PCO2 ARTERIAL 37 35 - 48 mm Hg INTERFACE SYSTEM PO2 ARTERIAL 345(H) 83 - 108 mm Hg INTERFACE SYSTEM SO2 ABG 100(H) 95 - 99 % INTERFACE SYSTEM HCO3 ARTERIAL 12(L) 22 - 26 mmol/L INTERFACE SYSTEM BASE EXCESS ABG -16.6(L) -2.0 - 3.0 mmol/L INTERFACE SYSTEM O2 CONC ARTERIAL 100 INTERFACE SYSTEM 01/07/2006 4:00 PM CDT Romie Laughlin MD ABG ORDERABLES Final Result Performing Organization Address [facility] de Phone Number INTERFACE SYSTEM Refer to clinic/hospital department * (ABNORMAL) PHOSPHORUS (01/07/2006 4:00 PM CDT) PHOSPHORUS 7.7(H) 2.5 - 4.5 mg/dL INTERFACE SYSTEM 01/07/2006 4:00 PM CDT Romie Laughlin MD CHEMISTRY ORDERABLES Final R esult Performing Organization Address [place]/[facility] Phone Number INTERFACE SYSTEM Refer to clinic/hospital department * MAGNESIUM LEVEL (01/07/2006 4:00 PM CDT) MAGNESIUM 2.0 1.5 - 2.5 mg/dL INTERFACE SYSTEM 01/07/2006 4:00 PM CDT Romie Laughlin MD CHEMISTRY ORDERABLES Final R esult Performing Organization Address [facility] Phone Number INTERFACE SYSTEM Refer to clinic/hospital department * (ABNORMAL) CALCIUM IONIZED (01/07/2006 4:00 PM CDT) CALCIUM IONIZED 4.40(L) 4.76 - 5.16 mg/dL INTERFACE SYSTEM 01/07/2006 4:00 PM CDT Romie Laughlin MD CHEMISTRY ORDERABLES Final R esult Performing Organization Address [facility] Phone Number INTERFACE SYSTEM Refer to clinic/hospital department * (ABNORMAL) BASIC METABOLIC PANEL (01/07/2006 4:00 PM CDT) GLUCOSE 142(H) 65 - 99 mg/dL INTERFACE SYSTEM CREATININE 4.9(H) 0.5 - 1.3 mg/dL INTERFACE SYSTEM Comment:Called Padmaja 01/07 4:47 PM. Pt receiving treatment for code. CALCIUM 7.1(L) 8.4 - 10.2 mg/dL INTERFACE SYSTEM Comment:Called Padmaja 01/07 4:47 PM. Pt receiving treatment for code. BUN 49(H) 6 - 20 mg/dL INTERFACE SYSTEM SODIUM 149(H) 135 - 145 mmol/L INTERFACE SYSTEM POTASSIUM 3.4(L) 3.5 - 4.9 mmol/L INTERFACE SYSTEM CHLORIDE 109(H) 96 - 108 mmol/L INTERFACE SYSTEM Comment:Called Padmaja 01/07 4:47 PM. Pt receiving treatment for code. CO2 19(L) 22 - 30 mmol/L INTERFACE SYSTEM RESULT COMMENT, CHEMISTRY INTERFACE SYSTEM 01/07/2006 4:00 PM CDT Romie Laughlin MD CHEMISTRY ORDERABLES Final R esult Performing Organization Address [facility] Phone Number INTERFACE SYSTEM Refer to clinic/hospital department * (ABNORMAL) CBC WITH DIFFERENTIAL (01/07/2006 4:00 PM CDT) NEUTROPHIL ABSOLUTE 7.88(H) 1.90 - 7.00 K/uL INTERFACE SYSTEM LYMPHOCYTE ABSOLUTE 2.02 0.70 - 4.50 K/uL INTERFACE SYSTEM MONOCYTE ABSOLUTE 0.10 0.10 - 1.30 K/uL INTERFACE SYSTEM EOSINOPHIL ABSOLUTE 0.00 0.00 - 0.70 K/uL INTERFACE SYSTEM BASOPHILS ABSOLUTE 0.00 0.00 - 0.20 K/uL INTERFACE SYSTEM NEUTROPHILS, SEG 73(H) 45 - 70 % INT ERFACE SYSTEM BANDS 5 0 - 5 % INTERFACE SYSTEM LYMPHOCYTES 20 16 - 45 % INTERFAC E SYSTEM MONOCYTES 1(L) 3 - 13 % INTERFACE SYSTEM EOSINOPHILS 0 0 - 7 % INTERFAC E SYSTEM BASOPHILS 0 0 - 2 % INTERFACE SYSTEM METAMYELOCYTE 1(H) <=0 % INTERF CINDY SYSTEM PLATELET EST. Consistent w/ count Normal INTERFACE SYSTEM ANISOCYTOSIS Slight INTERFA CE SYSTEM POIKILOCYTES Slight INTERFA CE SYSTEM HYPOCHROMIA Slight INTERFAC E SYSTEM 01/07/2006 4:00 PM CDT Romie Laughlin MD HEMATOLOGY ORDERABLES Final Result Performing Organization Address [facility] Phone Number INTERFACE SYSTEM Refer to clinic/hospital department * (ABNORMAL) CBC WITH DIFFERENTIAL (01/07/2006 4:00 PM CDT) WBC 10.1(H) 4.0 - 9.8 K/uL INTERFACE SYSTEM RBC 2.64(L) 4.50 - 5.40 M/uL INTERFACE SYSTEM HEMOGLOBIN 7.8(AA) 13.6 - 16.5 g/dL INTERFACE SYSTEM Comment:Persistent abnormal result HEMATOCRIT 26.1(L) 40.0 - 48.0 % INTERFACE SYSTEM MCV 98.9 82.0 - 99.0 fL INTERFACE SYSTEM MCH 29.5 27.2 - 32.6 pg INTERFACE SYSTEM MCHC 29.9(L) 31.5 - 35.5 % INTERFACE SYSTEM RDW 16.5(H) 11.5 - 14.5 % INTERFACE SYSTEM RDW-STDEV 59.4(H) 37.1 - 48.7 fL INTERFACE SYSTEM PLATELETS 282 140 - 350 K/uL INTERFACE SYSTEM MPV 9.7 9.3 - 12.4 fL INTERFACE SYSTEM 01/07/2006 4:00 PM CDT us Romie Laughlin MD HEMATOLOGY ORDERABLES Final Result INTERFACE SYSTEM Refer to clinic/hospital department * (ABNORMAL) PT AND APTT (01/07/2006 3:21 PM CDT) PROTIME 21.4(H) 12.7 - 15.1 Seconds INTERFACE SYSTEM INR 1.7(H) 0.9 - 1.1 INTERFACE SYSTEM Comment: INR Therapeutic Range: Adult: 2.0 - 3.0 for pulmonary embolism or prophylaxis against venous thrombosis or systemic embolization. 2.0 - 3.0 for patients with tissue heart valves. ?? 2.5 - 3.5 for patients with mechanical heart valves or post MD. Pediatric ??(12 years and under): 1.5 - 3.0 Although the target range in children is not well established , INR values of 1.5 - 3.0 are recommended for most patients. Higher values have been used in children with prosthetic cardiac valves and hereditary clotting disorders. (<3 days) therapeutic ranges have not been established. PTT 76.0(H) 24.4 - 36.4 Seconds INTERFACE SYSTEM Comment: PTT Therapeutic Range: Heparin Level ? PTT (seconds) <0.10 units/mL ? <53 0.10 - 0.30 units/mL ? 53 - 67 0.30 - 0.70 units/mL* ?67 - 95* 0.70 - 1.00 units/mL ?95 - 116 *corresponds to therapeutic range for unfractionated heparin ?? 01/07/2006 3:21 PM CDT Romie Laughlin MD HEMATOLOGY ORDERABLES Final Result Performing Organization Address [facility] Phone Number INTERFACE SYSTEM Refer to clinic/hospital department * CKMB W/REFLEX CK (01/07/2006 3:20 PM CDT) CKMB 1.5 <=6.7 ng/mL INTERFACE SYSTEM CKMB INTERP Negative INTERFAC E SYSTEM 01/07/2006 3:20 PM CDT Romie Laughlin MD CHEMISTRY ORDERABLES Final R esult Performing Organization Address [facility] Phone Number INTERFACE SYSTEM Refer to clinic/hospital department * (ABNORMAL) CALCIUM IONIZED (01/07/2006 3:20 PM CDT) CALCIUM IONIZED 3.16(AA) 4.76 - 5.16 mg/dL INTERFACE SYSTEM Comment: Results called to Kia at 01/07/2006 3:45 PM and read back verified. Verified by repeat analysis. 01/07/2006 3:20 PM CDT Romie Laughlin MD CHEMISTRY ORDERABLES Final R esult Performing Organization Address [facility] Phone Number INTERFACE SYSTEM Refer to clinic/hospital department * PHOSPHORUS (01/07/2006 3:19 PM CDT) PHOSPHORUS 3.4 2.5 - 4.5 mg/dL INTERFACE SYSTEM 01/07/2006 3:19 PM CDT Romie Laughlin MD CHEMISTRY ORDERABLES Final R esult Performing Organization Address [facility] de Phone Number INTERFACE SYSTEM Refer to clinic/hospital department * (ABNORMAL) MAGNESIUM LEVEL (01/07/2006 3:19 PM CDT) [facility] MAGNESIUM 1.0(AA) 1.5 - 2.5 mg/dL INTERFACE SYSTEM Comment:Results called to Marco A moodya at 01/07/2006 4:24 PM and read back verified. 01/07/2006 3:19 PM CDT Romie Laughlin MD CHEMISTRY ORDERABLES Final R esult Performing Organization Address City/[facility] Co de Phone Number INTERFACE SYSTEM Refer to clinic/hospital department * (ABNORMAL) BASIC METABOLIC PANEL (01/07/2006 3:19 PM CDT) [facility] GLUCOSE 80 65 - 99 mg/dL INTERFACE SYSTEM CREATININE 2.4(H) 0.5 - 1.3 mg/dL INTERFACE SYSTEM CALCIUM 3.9(AA) 8.4 - 10.2 mg/dL INTERFACE SYSTEM Comment: Results called to Esther at 01/07/2006 4:23 PM and read back verified. BUN 28(H) 6 - 20 mg/dL INTERFACE SYSTEM SODIUM 153(H) 135 - 145 mmol/L INTERFACE SYSTEM POTASSIUM 1.9(AA) 3.5 - 4.9 mmol/L INTERFACE SYSTEM Comment:Results called to Marco A moodya at 01/07/2006 4:24 PM and read back verified. CHLORIDE 128(AA) 96 - 108 mmol/L INTERFACE SYSTEM Comment:Results called to Al fransiscoa at 01/07/2006 4:24 PM and read back verified. CO2 14(L) 22 - 30 mmol/L INTERFACE SYSTEM RESULT COMMENT, CHEMISTRY INTERFACE SYSTEM 01/07/2006 3:19 PM CDT Romie Luaghlin MD CHEMISTRY ORDERABLES Final R esult Performing Organization Address City/[facility]/ZIP Co de Phone Number INTERFACE SYSTEM Refer to clinic/hospital department * (ABNORMAL) CBC WITH DIFFERENTIAL (01/07/2006 3:19 PM CDT) [facility] NEUTROPHIL ABSOLUTE 6.22 1.90 - 7.00 K/uL INTERFACE SYSTEM LYMPHOCYTE ABSOLUTE 1.93 0.70 - 4.50 K/uL INTERFACE SYSTEM MONOCYTE ABSOLUTE 0.25 0.10 - 1.30 K/uL INTERFACE SYSTEM EOSINOPHIL ABSOLUTE 0.00 0.00 - 0.70 K/uL INTERFACE SYSTEM BASOPHILS ABSOLUTE 0.00 0.00 - 0.20 K/uL INTERFACE SYSTEM NEUTROPHILS, SEG 74(H) 45 - 70 % INT ERFACE SYSTEM LYMPHOCYTES 23 16 - 45 % INTERFAC E SYSTEM MONOCYTES 3 3 - 13 % INTERFACE SYSTEM EOSINOPHILS 0 0 - 7 % INTERFAC E SYSTEM BASOPHILS 0 0 - 2 % INTERFACE SYSTEM PLATELET EST. Consistent w/ count Normal INTERFACE SYSTEM ANISOCYTOSIS Slight INTERFA CE SYSTEM POIKILOCYTES Slight INTERFA CE SYSTEM POLYCHROMASIA Slight INTERF CINDY SYSTEM 01/07/2006 3:19 PM CDT Romie Laughlin MD HEMATOLOGY ORDERABLES Final Result INTERFACE SYSTEM Refer to clinic/hospital department * (ABNORMAL) CBC WITH DIFFERENTIAL (01/07/2006 3:19 PM CDT) WBC 8.4 4.0 - 9.8 K/uL INTERFACE SYSTEM RBC 1.90(L) 4.50 - 5.40 M/uL INTERFACE SYSTEM HEMOGLOBIN 5.7(AA) 13.6 - 16.5 g/dL INTERFACE SYSTEM Comment: Verified by repeat analysis. Results called to Maria Fernanda at 01/07/2006 3:52 PM and read back verified. HEMATOCRIT 18.4(AA) 40.0 - 48.0 % INTERFACE SYSTEM Comment: Verified by repeat analysis. Results called to Maria Fernanda at 01/07/2006 3:52 PM and read back verified. MCV 96.8 82.0 - 99.0 fL INTERFACE SYSTEM MCH 30.0 27.2 - 32.6 pg INTERFACE SYSTEM MCHC 31.0(L) 31.5 - 35.5 % INTERFACE SYSTEM RDW 16.5(H) 11.5 - 14.5 % INTERFACE SYSTEM RDW-STDEV 57.8(H) 37.1 - 48.7 fL INTERFACE SYSTEM PLATELETS 182 140 - 350 K/uL INTERFACE SYSTEM MPV 9.3 9.3 - 12.4 fL INTERFACE SYSTEM 01/07/2006 3:19 PM CDT Romie Laughlin MD HEMATOLOGY ORDERABLES Final Result Performing Organization Address [facility] de Phone Number INTERFACE SYSTEM Refer to clinic/hospital department * (ABNORMAL) BLOOD GAS ARTERIAL (01/07/2006 3:15 PM CDT) PH ARTERIAL 7.20(AA) 7.35 - 7.45 INTERFACE SYSTEM Comment:Results called to Na ncy at 01/07/2006 3:59 PM and read back verified. PCO2 ARTERIAL 48 35 - 48 mm Hg INTERFACE SYSTEM PO2 ARTERIAL 28(AA) 83 - 108 mm Hg INTERFACE SYSTEM Comment:Results called to Na ncy at 01/07/2006 3:59 PM and read back verified. SO2 ABG 41(L) 95 - 99 % INTERFACE SYSTEM HCO3 ARTERIAL 18(L) 22 - 26 mmol/L INTERFACE SYSTEM BASE EXCESS ABG -10.1(L) -2.0 - 3.0 mmol/L INTERFACE SYSTEM O2 CONC ARTERIAL 100% INTERFACE SYSTEM 01/07/2006 3:15 PM CDT us Romie Laughlin MD ABG ORDERABLES Final Result Performing Organization Address [facility] de Phone Number INTERFACE SYSTEM Refer to clinic/hospital department * (ABNORMAL) POC GLUCOSE (01/07/2006 12:51 PM CDT) COMMENT, GLU POC Notified RN INTERFACE SYSTEM GLUCOSE POC 124(H) 65 - 109 mg/dL INTERFACE SYSTEM 01/07/2006 12:5 1 PM CDT us Wicho Gomez MD POINT OF CARE TESTING Final R esult Performing Organization Address [facility] de Phone Number INTERFACE SYSTEM Refer to clinic/hospital department * (ABNORMAL) PTT (01/07/2006 10:45 AM CDT) PTT 64.3(H) 24.4 - 36.4 Seconds INTERFACE SYSTEM Comment: PTT Therapeutic Range: Heparin Level ? PTT (seconds) <0.10 units/mL ? <53 0.10 - 0.30 units/mL ? 53 - 67 0.30 - 0.70 units/mL* ?67 - 95* 0.70 - 1.00 units/mL ?95 - 116 *corresponds to therapeutic range for unfractionated heparin ?? 01/07/2006 10:4 5 AM CDT us Romie Laughlin MD HEMATOLOGY ORDERABLES Final Result Performing Organization Address [facility] de Phone Number INTERFACE SYSTEM Refer to clinic/hospital department * (ABNORMAL) PTT (01/07/2006 4:00 AM CDT) PTT >150.0(AA ) 24.4 - 36.4 Seconds INTERFACE SYSTEM Comment: PTT Therapeutic Range: Heparin Level ? PTT (seconds) <0.10 units/mL ? <53 0.10 - 0.30 units/mL ? 53 - 67 0.30 - 0.70 units/mL* ?67 - 95* 0.70 - 1.00 units/mL ?95 - 116 *corresponds to therapeutic range for unfractionated heparin ?? Results called to jannette at 01/07/2006 5:01 AM and read back verified. 01/07/2006 4:00 AM CDT us Wicho Gomez MD HEMATOLOGY ORDERABLES Final R esult Performing Organization Address [facility] de Phone Number INTERFACE SYSTEM Refer to clinic/hospital department * (ABNORMAL) CBC WITH DIFFERENTIAL (01/07/2006 4:00 AM CDT) NEUTROPHILS 81(H) 45 - 70 % INTERFAC E SYSTEM LYMPHOCYTES 11(L) 16 - 45 % INTERFAC E SYSTEM MONOCYTES 8 3 - 13 % INTERFACE SYSTEM EOSINOPHILS 0 0 - 7 % INTERFAC E SYSTEM BASOPHILS 0 0 - 2 % INTERFACE SYSTEM NEUTROPHIL ABSOLUTE 6.84 1.90 - 7.00 K/uL INTERFACE SYSTEM LYMPHOCYTE ABSOLUTE 0.91 0.70 - 4.50 K/uL INTERFACE SYSTEM MONOCYTE ABSOLUTE 0.69 0.10 - 1.30 K/uL INTERFACE SYSTEM EOSINOPHIL ABSOLUTE 0.00 0.00 - 0.70 K/uL INTERFACE SYSTEM BASOPHILS ABSOLUTE 0.01 0.00 - 0.20 K/uL INTERFACE SYSTEM 01/07/2006 4:00 AM CDT Harshad Heller MD HEMATOLOGY ORDERABLES Final Res ult Performing Organization Address [place]/[facility] de Phone Number INTERFACE SYSTEM Refer to clinic/hospital department * (ABNORMAL) CBC WITH DIFFERENTIAL (01/07/2006 4:00 AM CDT) WBC 8.5 4.0 - 9.8 K/uL INTERFACE SYSTEM RBC 2.91(L) 4.50 - 5.40 M/uL INTERFACE SYSTEM HEMOGLOBIN 8.8(L) 13.6 - 16.5 g/dL INTERFACE SYSTEM HEMATOCRIT 27.5(L) 40.0 - 48.0 % INTERFACE SYSTEM MCV 94.5 82.0 - 99.0 fL INTERFACE SYSTEM MCH 30.2 27.2 - 32.6 pg INTERFACE SYSTEM MCHC 32.0 31.5 - 35.5 % INTERFACE SYSTEM RDW 16.3(H) 11.5 - 14.5 % INTERFACE SYSTEM RDW-STDEV 56.4(H) 37.1 - 48.7 fL INTERFACE SYSTEM PLATELETS 237 140 - 350 K/uL INTERFACE SYSTEM MPV 9.4 9.3 - 12.4 fL INTERFACE SYSTEM 01/07/2006 4:00 AM CDT Harshad Heller MD HEMATOLOGY ORDERABLES Final Res ult Performing Organization Address [place]/[facility] Co de Phone Number INTERFACE SYSTEM Refer to clinic/hospital department * (ABNORMAL) PHOSPHORUS (01/07/2006 4:00 AM CDT) PHOSPHORUS 6.3(H) 2.5 - 4.5 mg/dL INTERFACE SYSTEM 01/07/2006 4:00 AM CDT Harshad Heller MD CHEMISTRY ORDERABLES Final Resu lt Performing Organization Address [facility] Phone Number INTERFACE SYSTEM Refer to clinic/hospital department * MAGNESIUM LEVEL (01/07/2006 4:00 AM CDT) MAGNESIUM 1.8 1.5 - 2.5 mg/dL INTERFACE SYSTEM 01/07/2006 4:00 AM CDT Harshad Heller MD CHEMISTRY ORDERABLES Final Resu lt Performing Organization Address [facility] Phone Number INTERFACE SYSTEM Refer to clinic/hospital department * (ABNORMAL) CALCIUM IONIZED (01/07/2006 4:00 AM CDT) CALCIUM IONIZED 4.72(L) 4.76 - 5.16 mg/dL INTERFACE SYSTEM 01/07/2006 4:00 AM CDT Harshad Heller MD CHEMISTRY ORDERABLES Final Resu lt Performing Organization Address [facility] Phone Number INTERFACE SYSTEM Refer to clinic/hospital department * (ABNORMAL) BASIC METABOLIC PANEL (01/07/2006 4:00 AM CDT) GLUCOSE 121(H) 65 - 99 mg/dL INTERFACE SYSTEM CREATININE 5.0(H) 0.5 - 1.3 mg/dL INTERFACE SYSTEM CALCIUM 8.4 8.4 - 10.2 mg/dL INTERFACE SYSTEM BUN 51(H) 6 - 20 mg/dL INTERFACE SYSTEM SODIUM 140 135 - 145 mmol/L INTERFACE SYSTEM POTASSIUM 3.2(L) 3.5 - 4.9 mmol/L INTERFACE SYSTEM CHLORIDE 106 96 - 108 mmol/L INTERFACE SYSTEM CO2 28 22 - 30 mmol/L INTERFACE SYSTEM 01/07/2006 4:00 AM CDT Harshad Heller MD CHEMISTRY ORDERABLES Final Resu lt Performing Organization Address [facility] Phone Number INTERFACE SYSTEM Refer to clinic/hospital department * POC GLUCOSE (01/07/2006 12:24 AM CDT) COMMENT, GLU POC Notified RN INTERFACE SYSTEM GLUCOSE POC 100 65 - 109 mg/dL INTERFACE SYSTEM 01/07/2006 12:2 4 AM CDT us Wicho Gomez MD POINT OF CARE TESTING Final R esult Performing Organization Address [facility] de Phone Number INTERFACE SYSTEM Refer to clinic/hospital department * (ABNORMAL) PTT (01/06/2006 7:00 PM CDT) PTT >150.0(AA ) 24.4 - 36.4 Seconds INTERFACE SYSTEM Comment: PTT Therapeutic Range: Heparin Level ? PTT (seconds) <0.10 units/mL ? <53 0.10 - 0.30 units/mL ? 53 - 67 0.30 - 0.70 units/mL* ?67 - 95* 0.70 - 1.00 units/mL ?95 - 116 *corresponds to therapeutic range for unfractionated heparin ?? Verified by repeat analysis. Results called to enrique at 01/06/2006 9:21 PM and read back verified. 01/06/2006 7:00 PM CDT us Romie Laughlin MD HEMATOLOGY ORDERABLES Final Result Performing Organization Address [facility] Phone Number INTERFACE SYSTEM Refer to clinic/hospital department * POC GLUCOSE (01/06/2006 5:26 PM CDT) GLUCOSE POC 106 65 - 109 mg/dL INTERFACE SYSTEM 01/06/2006 5:26 PM CDT us Wicho Gomez MD POINT OF CARE TESTING Final R esult Performing Organization Address [facility] de Phone Number INTERFACE SYSTEM Refer to clinic/hospital department * (ABNORMAL) TROPONIN (W/REFLEX CKMB/CK) (01/06/2006 4:45 PM CDT) TROPONIN T 0.06(AA) <=0.03 ng/mL INTERFACE SYSTEM Comment:Results called to isela ly at 01/06/2006 5:20 PM and read back verified. TROPONIN T INTERP See Below INTERFACE SYSTEM Comment:Elevated Troponin-T, Consistent with Myocardial Injury 01/06/2006 4:45 PM CDT Wicho Gomez MD CHEMISTRY ORDERABLES Final Re sult Performing Organization Address [facility] Co de Phone Number INTERFACE SYSTEM Refer to clinic/hospital department * CKMB W/REFLEX CK (01/06/2006 4:45 PM CDT) CKMB 2.0 <=6.7 ng/mL INTERFACE SYSTEM CKMB INTERP Negative INTERFAC E SYSTEM 01/06/2006 4:45 PM CDT Wicho Gomez MD CHEMISTRY ORDERABLES Final Re sult Performing Organization Address [facility] Co de Phone Number INTERFACE SYSTEM Refer to clinic/hospital department * (ABNORMAL) BASIC METABOLIC PANEL (01/06/2006 4:45 PM CDT) GLUCOSE 90 65 - 99 mg/dL INTERFACE SYSTEM CREATININE 4.9(H) 0.5 - 1.3 mg/dL INTERFACE SYSTEM CALCIUM 8.4 8.4 - 10.2 mg/dL INTERFACE SYSTEM BUN 52(H) 6 - 20 mg/dL INTERFACE SYSTEM SODIUM 140 135 - 145 mmol/L INTERFACE SYSTEM POTASSIUM 3.7 3.5 - 4.9 mmol/L INTERFACE SYSTEM CHLORIDE 106 96 - 108 mmol/L INTERFACE SYSTEM CO2 28 22 - 30 mmol/L INTERFACE SYSTEM 01/06/2006 4:45 PM CDT Wicho Gomez MD CHEMISTRY ORDERABLES Final Re sult Performing Organization Address [place]/[facility]/ZIP Co de Phone Number INTERFACE SYSTEM Refer to clinic/hospital department * CK (01/06/2006 4:45 PM CDT) CK 16 10 - 170 U/L INTERFACE SYSTEM 01/06/2006 4:45 PM CDT us Wicho Gomez MD CHEMISTRY ORDERABLES Final Re sult Performing Organization Address [facility] Phone Number INTERFACE SYSTEM Refer to clinic/hospital department * (ABNORMAL) CALCIUM IONIZED (01/06/2006 4:45 PM CDT) CALCIUM IONIZED 4.60(L) 4.76 - 5.16 mg/dL INTERFACE SYSTEM 01/06/2006 4:45 PM CDT us Wicho Gomez MD CHEMISTRY ORDERABLES Final Re sult Performing Organization Address [facility] INTERFACE SYSTEM Refer to clinic/hospital department * (ABNORMAL) PHOSPHORUS (01/06/2006 4:45 PM CDT) PHOSPHORUS 6.3(H) 2.5 - 4.5 mg/dL INTERFACE SYSTEM 01/06/2006 4:45 PM CDT us Wicho Gomez MD CHEMISTRY ORDERABLES Final Re sult Performing Organization Address [facility] Number INTERFACE SYSTEM Refer to clinic/hospital department * MAGNESIUM LEVEL (01/06/2006 4:45 PM CDT) MAGNESIUM 1.9 1.5 - 2.5 mg/dL INTERFACE SYSTEM 01/06/2006 4:45 PM CDT us Wicho Gomez MD CHEMISTRY ORDERABLES Final Re sult Performing Organization Address [facility] INTERFACE SYSTEM Refer to clinic/hospital department * (ABNORMAL) PTT (01/06/2006 12:15 PM CDT) PTT 42.6(H) 24.4 - 36.4 Seconds INTERFACE SYSTEM Comment: PTT Therapeutic Range: Heparin Level ? PTT (seconds) <0.10 units/mL ? <53 0.10 - 0.30 units/mL ? 53 - 67 0.30 - 0.70 units/mL* ?67 - 95* 0.70 - 1.00 units/mL ?95 - 116 *corresponds to therapeutic range for unfractionated heparin ?? 01/06/2006 12:1 5 PM CDT us Romie Laughlin MD HEMATOLOGY ORDERABLES Final Result Performing Organization Address [facility] Phone Number INTERFACE SYSTEM Refer to clinic/hospital department * POC GLUCOSE (01/06/2006 11:33 AM CDT) GLUCOSE POC 100 65 - 109 mg/dL INTERFACE SYSTEM 01/06/2006 11:3 3 AM CDT us Wicho Gomez MD POINT OF CARE TESTING Final R esult Performing Organization Address [facility] Phone Number INTERFACE SYSTEM Refer to clinic/hospital department * (ABNORMAL) PTT (01/06/2006 8:20 AM CDT) PTT >150.0(AA ) 24.4 - 36.4 Seconds INTERFACE SYSTEM Comment: PTT Therapeutic Range: Heparin Level ? PTT (seconds) <0.10 units/mL ? <53 0.10 - 0.30 units/mL ? 53 - 67 0.30 - 0.70 units/mL* ?67 - 95* 0.70 - 1.00 units/mL ?95 - 116 *corresponds to therapeutic range for unfractionated heparin ?? Persistent abnormal result Verified by repeat analysis. 01/06/2006 8:20 AM CDT us Romie Laughlin MD HEMATOLOGY ORDERABLES Final Result Performing Organization Address [place]/[facility] de Phone Number INTERFACE SYSTEM Refer to clinic/hospital department * (ABNORMAL) CBC WITH DIFFERENTIAL (01/06/2006 3:30 AM CDT) NEUTROPHILS 83(H) 45 - 70 % INTERFAC E SYSTEM LYMPHOCYTES 10(L) 16 - 45 % INTERFAC E SYSTEM MONOCYTES 8 3 - 13 % INTERFACE SYSTEM EOSINOPHILS 0 0 - 7 % INTERFAC E SYSTEM BASOPHILS 0 0 - 2 % INTERFACE SYSTEM NEUTROPHIL ABSOLUTE 7.99(H) 1.90 - 7.00 K/uL INTERFACE SYSTEM LYMPHOCYTE ABSOLUTE 0.92 0.70 - 4.50 K/uL INTERFACE SYSTEM MONOCYTE ABSOLUTE 0.77 0.10 - 1.30 K/uL INTERFACE SYSTEM EOSINOPHIL ABSOLUTE 0.00 0.00 - 0.70 K/uL INTERFACE SYSTEM BASOPHILS ABSOLUTE 0.01 0.00 - 0.20 K/uL INTERFACE SYSTEM 01/06/2006 3:30 AM CDT us Harshad Heller MD HEMATOLOGY ORDERABLES Final Res ult Performing Organization Address [facility] de Phone Number INTERFACE SYSTEM Refer to clinic/hospital department * (ABNORMAL) CBC WITH DIFFERENTIAL (01/06/2006 3:30 AM CDT) WBC 9.7 4.0 - 9.8 K/uL INTERFACE SYSTEM RBC 2.99(L) 4.50 - 5.40 M/uL INTERFACE SYSTEM HEMOGLOBIN 8.9(L) 13.6 - 16.5 g/dL INTERFACE SYSTEM HEMATOCRIT 28.8(L) 40.0 - 48.0 % INTERFACE SYSTEM MCV 96.3 82.0 - 99.0 fL INTERFACE SYSTEM MCH 29.8 27.2 - 32.6 pg INTERFACE SYSTEM MCHC 30.9(L) 31.5 - 35.5 % INTERFACE SYSTEM RDW 16.5(H) 11.5 - 14.5 % INTERFACE SYSTEM RDW-STDEV 57.8(H) 37.1 - 48.7 fL INTERFACE SYSTEM PLATELETS 259 140 - 350 K/uL INTERFACE SYSTEM MPV 9.3 9.3 - 12.4 fL INTERFACE SYSTEM 01/06/2006 3:30 AM CDT Harshad Heller MD HEMATOLOGY ORDERABLES Final Res ult Performing Organization Address [facility] Number INTERFACE SYSTEM Refer to clinic/hospital department * (ABNORMAL) PHOSPHORUS (01/06/2006 3:30 AM CDT) PHOSPHORUS 6.1(H) 2.5 - 4.5 mg/dL INTERFACE SYSTEM 01/06/2006 3:30 AM CDT Harshad Heller MD CHEMISTRY ORDERABLES Final Resu lt Performing Organization Address [facility] INTERFACE SYSTEM Refer to clinic/hospital department * MAGNESIUM LEVEL (01/06/2006 3:30 AM CDT) MAGNESIUM 1.8 1.5 - 2.5 mg/dL INTERFACE SYSTEM 01/06/2006 3:30 AM CDT Harshad Heller MD CHEMISTRY ORDERABLES Final Resu lt Performing Organization Address [facility] INTERFACE SYSTEM Refer to clinic/hospital department * (ABNORMAL) CALCIUM IONIZED (01/06/2006 3:30 AM CDT) CALCIUM IONIZED 4.64(L) 4.76 - 5.16 mg/dL INTERFACE SYSTEM 01/06/2006 3:30 AM CDT Harshad Heller MD CHEMISTRY ORDERABLES Final Resu lt Performing Organization Address [facility] Phone Number INTERFACE SYSTEM Refer to clinic/hospital department * (ABNORMAL) BASIC METABOLIC PANEL (01/06/2006 3:30 AM CDT) GLUCOSE 101(H) 65 - 99 mg/dL INTERFACE SYSTEM CREATININE 4.5(H) 0.5 - 1.3 mg/dL INTERFACE SYSTEM CALCIUM 7.8(L) 8.4 - 10.2 mg/dL INTERFACE SYSTEM BUN 49(H) 6 - 20 mg/dL INTERFACE SYSTEM SODIUM 142 135 - 145 mmol/L INTERFACE SYSTEM POTASSIUM 3.5 3.5 - 4.9 mmol/L INTERFACE SYSTEM CHLORIDE 107 96 - 108 mmol/L INTERFACE SYSTEM CO2 25 22 - 30 mmol/L INTERFACE SYSTEM 01/06/2006 3:30 AM CDT us Harshad Heller MD CHEMISTRY ORDERABLES Final Resu lt Performing Organization Address [facility] Phone Number INTERFACE SYSTEM Refer to clinic/hospital department * (ABNORMAL) PTT (01/06/2006 1:20 AM CDT) PTT >150.0(AA ) 24.4 - 36.4 Seconds INTERFACE SYSTEM Comment: PTT Therapeutic Range: Heparin Level ? PTT (seconds) <0.10 units/mL ? <53 0.10 - 0.30 units/mL ? 53 - 67 0.30 - 0.70 units/mL* ?67 - 95* 0.70 - 1.00 units/mL ?95 - 116 *corresponds to therapeutic range for unfractionated heparin ?? Persistent abnormal result 01/06/2006 1:20 AM CDT us Harshad Heller MD HEMATOLOGY ORDERABLES Final Res ult Performing Organization Address [facility] Phone Number INTERFACE SYSTEM Refer to clinic/hospital department * POC GLUCOSE (01/06/2006 12:40 AM CDT) GLUCOSE POC 93 65 - 109 mg/dL INTERFACE SYSTEM 01/06/2006 12:4 0 AM CDT us Wicho Gomez MD POINT OF CARE TESTING Final R esult Performing Organization Address [facility] de Phone Number INTERFACE SYSTEM Refer to clinic/hospital department * (ABNORMAL) PTT (01/05/2006 11:45 PM CDT) Pathologist [facility] PTT >150.0(AA ) 24.4 - 36.4 Seconds INTERFACE SYSTEM Comment: PTT Therapeutic Range: Heparin Level ? PTT (seconds) <0.10 units/mL ? <53 0.10 - 0.30 units/mL ? 53 - 67 0.30 - 0.70 units/mL* ?67 - 95* 0.70 - 1.00 units/mL ?95 - 116 *corresponds to therapeutic range for unfractionated heparin ?? Persistent abnormal result 01/05/2006 11:4 5 PM CDT us Harshad Heller MD HEMATOLOGY ORDERABLES Final Res ult Performing Organization Address [facility] de Phone Number INTERFACE SYSTEM Refer to clinic/hospital department * POC GLUCOSE (01/05/2006 6:44 PM CDT) [facility] GLUCOSE POC 89 65 - 109 mg/dL INTERFACE SYSTEM 01/05/2006 6:44 PM CDT us Wicho Gmoez MD POINT OF CARE TESTING Final R esult Performing Organization Address [facility] de Phone Number INTERFACE SYSTEM Refer to clinic/hospital department * (ABNORMAL) CBC WITH DIFFERENTIAL (01/05/2006 4:00 AM CDT) NEUTROPHILS 79(H) 45 - 70 % INTERFAC E SYSTEM LYMPHOCYTES 12(L) 16 - 45 % INTERFAC E SYSTEM MONOCYTES 9 3 - 13 % INTERFACE SYSTEM EOSINOPHILS 0 0 - 7 % INTERFAC E SYSTEM BASOPHILS 0 0 - 2 % INTERFACE SYSTEM NEUTROPHIL ABSOLUTE 8.95(H) 1.90 - 7.00 K/uL INTERFACE SYSTEM LYMPHOCYTE ABSOLUTE 1.31 0.70 - 4.50 K/uL INTERFACE SYSTEM MONOCYTE ABSOLUTE 1.03 0.10 - 1.30 K/uL INTERFACE SYSTEM EOSINOPHIL ABSOLUTE 0.00 0.00 - 0.70 K/uL INTERFACE SYSTEM BASOPHILS ABSOLUTE 0.02 0.00 - 0.20 K/uL INTERFACE SYSTEM 01/05/2006 4:00 AM CDT Wicho Gomez MD HEMATOLOGY ORDERABLES Final R esult INTERFACE SYSTEM Refer to clinic/hospital department * (ABNORMAL) CBC WITH DIFFERENTIAL (01/05/2006 4:00 AM CDT) WBC 11.3(H) 4.0 - 9.8 K/uL INTERFACE SYSTEM RBC 3.15(L) 4.50 - 5.40 M/uL INTERFACE SYSTEM HEMOGLOBIN 9.2(L) 13.6 - 16.5 g/dL INTERFACE SYSTEM HEMATOCRIT 29.9(L) 40.0 - 48.0 % INTERFACE SYSTEM MCV 94.9 82.0 - 99.0 fL INTERFACE SYSTEM MCH 29.2 27.2 - 32.6 pg INTERFACE SYSTEM MCHC 30.8(L) 31.5 - 35.5 % INTERFACE SYSTEM RDW 16.5(H) 11.5 - 14.5 % INTERFACE SYSTEM RDW-STDEV 56.9(H) 37.1 - 48.7 fL INTERFACE SYSTEM PLATELETS 249 140 - 350 K/uL INTERFACE SYSTEM MPV 9.4 9.3 - 12.4 fL INTERFACE SYSTEM 01/05/2006 4:00 AM CDT Wicho Gomez MD HEMATOLOGY ORDERABLES Final R esult INTERFACE SYSTEM Refer to clinic/hospital department * (ABNORMAL) PHOSPHORUS (01/05/2006 4:00 AM CDT) PHOSPHORUS 5.3(H) 2.5 - 4.5 mg/dL INTERFACE SYSTEM 01/05/2006 4:00 AM CDT Wicho Gomez MD CHEMISTRY ORDERABLES Final Re sult INTERFACE SYSTEM Refer to clinic/hospital department * MAGNESIUM LEVEL (01/05/2006 4:00 AM CDT) MAGNESIUM 1.9 1.5 - 2.5 mg/dL INTERFACE SYSTEM 01/05/2006 4:00 AM CDT Wicho Gomez MD CHEMISTRY ORDERABLES Final Re sult Performing Organization Address [facility] Phone Number INTERFACE SYSTEM Refer to clinic/hospital department * (ABNORMAL) CALCIUM IONIZED (01/05/2006 4:00 AM CDT) CALCIUM IONIZED 4.68(L) 4.76 - 5.16 mg/dL INTERFACE SYSTEM 01/05/2006 4:00 AM CDT us Wicho Gomez MD CHEMISTRY ORDERABLES Final Re sult Performing Organization Address [facility] Number INTERFACE SYSTEM Refer to clinic/hospital department * (ABNORMAL) BASIC METABOLIC PANEL (01/05/2006 4:00 AM CDT) GLUCOSE 71 65 - 99 mg/dL INTERFACE SYSTEM CREATININE 4.1(H) 0.5 - 1.3 mg/dL INTERFACE SYSTEM CALCIUM 7.9(L) 8.4 - 10.2 mg/dL INTERFACE SYSTEM BUN 44(H) 6 - 20 mg/dL INTERFACE SYSTEM SODIUM 139 135 - 145 mmol/L INTERFACE SYSTEM POTASSIUM 4.2 3.5 - 4.9 mmol/L INTERFACE SYSTEM CHLORIDE 105 96 - 108 mmol/L INTERFACE SYSTEM CO2 26 22 - 30 mmol/L INTERFACE SYSTEM 01/05/2006 4:00 AM CDT us Wicho Gomez MD CHEMISTRY ORDERABLES Final Re sult Performing Organization Address [facility] Phone Number INTERFACE SYSTEM Refer to clinic/hospital department * (ABNORMAL) PTT (01/05/2006 2:59 AM CDT) PTT >150.0(AA ) 24.4 - 36.4 Seconds INTERFACE SYSTEM Comment: PTT Therapeutic Range: Heparin Level ? PTT (seconds) <0.10 units/mL ? <53 0.10 - 0.30 units/mL ? 53 - 67 0.30 - 0.70 units/mL* ?67 - 95* 0.70 - 1.00 units/mL ?95 - 116 *corresponds to therapeutic range for unfractionated heparin ?? Results called to noehmi at 01/05/2006 4:36 AM and read back verified. 01/05/2006 2:59 AM CDT Wicho Gomez MD HEMATOLOGY ORDERABLES [facility] Performing Organization Address [facility] de Phone Number INTERFACE SYSTEM Refer to clinic/hospital department * (ABNORMAL) POC GLUCOSE (01/05/2006 12:54 AM CDT) Pathologist [facility] GLUCOSE POC 62(L) 65 - 109 mg/dL INTERFACE SYSTEM 01/05/2006 12:5 4 AM CDT us Wicho Gomez MD POINT OF CARE TESTING [facility] Performing Organization Address [facility] de Phone Number INTERFACE SYSTEM Refer to clinic/hospital department * (ABNORMAL) PTT (01/04/2006 8:00 PM CDT) PTT 54.1(H) 24.4 - 36.4 Seconds INTERFACE SYSTEM Comment: PTT Therapeutic Range: Heparin Level ? PTT (seconds) <0.10 units/mL ? <53 0.10 - 0.30 units/mL ? 53 - 67 0.30 - 0.70 units/mL* ?67 - 95* 0.70 - 1.00 units/mL ?95 - 116 *corresponds to therapeutic range for unfractionated heparin ?? 01/04/2006 8:00 PM CDT Romie Laughlin MD HEMATOLOGY ORDERABLES Final Result Performing Organization Address [facility] de Phone Number INTERFACE SYSTEM Refer to clinic/hospital department * POC GLUCOSE (01/04/2006 7:19 PM CDT) GLUCOSE POC 74 65 - 109 mg/dL INTERFACE SYSTEM COMMENT 4, GLU POC Rptd gluc at no charge INTERFACE SYSTEM 01/04/2006 7:19 PM CDT Wicho Gomez MD POINT OF CARE TESTING Final R esult Performing Organization Address [facility] de Phone Number INTERFACE SYSTEM Refer to clinic/hospital department * (ABNORMAL) POC GLUCOSE (01/04/2006 7:17 PM CDT) COMMENT, GLU POC Notified RN INTERFACE SYSTEM COMMENT 3, GLU POC Repeated Test INTERFACE SYSTEM GLUCOSE POC 54(L) 65 - 109 mg/dL INTERFACE SYSTEM COMMENT 4, GLU POC Glucose to be verified INTERFACE SYSTEM 01/04/2006 7:17 PM CDT Wicho Gomez MD POINT OF CARE TESTING Final R esult Performing Organization Address [facility] de Phone Number INTERFACE SYSTEM Refer to clinic/hospital department * EOSINOPHIL SMEAR (01/04/2006 3:12 PM CDT) EOSINOPHIL SMEAR SOURCE Urine INTERFACE SYSTEM EOSINOPHIL SMEAR No Eos Seen No Eos Seen INTERFACE SYSTEM 01/04/2006 3:12 PM CDT Wicho Gomez MD BODY FLUIDS AND STOOLS COM Fi nal Result Performing Organization Address [facility] de Phone Number INTERFACE SYSTEM Refer to clinic/hospital department * OSMOLALITY, URINE (01/04/2006 3:12 PM CDT) OSMOLALITY, URINE 388 50 - 1200 mOsml/kg INTERFACE SYSTEM 01/04/2006 3:12 PM CDT Wicho Gomez MD URINE ORDERABLES Final Result Performing Organization Address [facility] Phone Number INTERFACE SYSTEM Refer to clinic/hospital department * (ABNORMAL) URINALYSIS (01/04/2006 3:12 PM CDT) COLOR UA Yellow INTERFACE SYSTEM CLARITY UA Cloudy(A) Clear INTERFACE SYSTEM SPECIFIC GRAVITY UA 1.012 1.001 - 1.035 INTERFACE SYSTEM PH UA 5.0 5.0 - 8.0 INTERFACE SYSTEM LEUKOCYTE ESTERASE UA Trace(A) Negative INTERFACE SYSTEM NITRITE UA Negative Negative INTERFACE SYSTEM PROTEIN UA 1+(A) Negative INTERFACE SYSTEM GLUCOSE UA Negative Negative INTERFACE SYSTEM KETONES UA Negative Negative INTERFACE SYSTEM UROBILINOGEN UA <1 <=1 mg/dL INTE RFACE SYSTEM BILIRUBIN UA Negative Negative INTERFA CE SYSTEM BLOOD UA Trace(A) Negative INTERFACE SYSTEM WBC UA 28(H) 0 - 3 /HPF INTERFACE SYSTEM RBC UA 40(H) 0 - 3 /HPF INTERFACE SYSTEM EPITHELIAL CELLS, URINE 2-5 /HPF INTERFACE SYSTEM WBC CLUMPS Present(A) None Seen INTERFAC E SYSTEM AMORPHOUS CRYSTAL Many /HPF INTERFACE SYSTEM 01/04/2006 3:12 PM CDT Wicho Gomez MD URINE ORDERABLES Final Result Performing Organization Address [facility] Phone Number INTERFACE SYSTEM Refer to clinic/hospital department * (ABNORMAL) PTT (01/04/2006 3:00 PM CDT) PTT 38.2(H) 24.4 - 36.4 Seconds INTERFACE SYSTEM Comment: PTT Therapeutic Range: Heparin Level ? PTT (seconds) <0.10 units/mL ? <53 0.10 - 0.30 units/mL ? 53 - 67 0.30 - 0.70 units/mL* ?67 - 95* 0.70 - 1.00 units/mL ?95 - 116 *corresponds to therapeutic range for unfractionated heparin ?? 01/04/2006 3:00 PM CDT Romie Laughlin MD HEMATOLOGY ORDERABLES Final Result Performing Organization Address [facility] Phone Number INTERFACE SYSTEM Refer to clinic/hospital department * PTT (01/04/2006 10:40 AM CDT) PTT 31.5 24.4 - 36.4 Seconds INTERFACE SYSTEM Comment: PTT Therapeutic Range: Heparin Level ? PTT (seconds) <0.10 units/mL ? <53 0.10 - 0.30 units/mL ? 53 - 67 0.30 - 0.70 units/mL* ?67 - 95* 0.70 - 1.00 units/mL ?95 - 116 *corresponds to therapeutic range for unfractionated heparin ?? 01/04/2006 10:4 0 AM CDT Wicho Gomez MD HEMATOLOGY ORDERABLES Final R esult Performing Organization Address [facility] Number INTERFACE SYSTEM Refer to clinic/hospital department * (ABNORMAL) ALBUMIN LEVEL (01/04/2006 3:45 AM CDT) ALBUMIN 1.4(L) 3.4 - 4.8 g/dL INTERFACE SYSTEM 01/04/2006 3:45 AM CDT Wicho Gomez MD CHEMISTRY ORDERABLES Final Re sult Performing Organization Address [facility] Phone Number INTERFACE SYSTEM Refer to clinic/hospital department * (ABNORMAL) CBC WITH DIFFERENTIAL (01/04/2006 3:45 AM CDT) NEUTROPHILS 83(H) 45 - 70 % INTERFAC E SYSTEM LYMPHOCYTES 9(L) 16 - 45 % INTERFAC E SYSTEM MONOCYTES 7 3 - 13 % INTERFACE SYSTEM EOSINOPHILS 0 0 - 7 % INTERFAC E SYSTEM BASOPHILS 0 0 - 2 % INTERFACE SYSTEM NEUTROPHIL ABSOLUTE 9.51(H) 1.90 - 7.00 K/uL INTERFACE SYSTEM LYMPHOCYTE ABSOLUTE 1.08 0.70 - 4.50 K/uL INTERFACE SYSTEM MONOCYTE ABSOLUTE 0.84 0.10 - 1.30 K/uL INTERFACE SYSTEM EOSINOPHIL ABSOLUTE 0.00 0.00 - 0.70 K/uL INTERFACE SYSTEM BASOPHILS ABSOLUTE 0.01 0.00 - 0.20 K/uL INTERFACE SYSTEM 01/04/2006 3:45 AM CDT Wicho Gomez MD HEMATOLOGY ORDERABLES Final R esult Performing Organization Address [place]/[facility] Co de Phone Number INTERFACE SYSTEM Refer to clinic/hospital department * (ABNORMAL) CBC WITH DIFFERENTIAL (01/04/2006 3:45 AM CDT) WBC 11.4(H) 4.0 - 9.8 K/uL INTERFACE SYSTEM RBC 3.21(L) 4.50 - 5.40 M/uL INTERFACE SYSTEM HEMOGLOBIN 9.7(L) 13.6 - 16.5 g/dL INTERFACE SYSTEM HEMATOCRIT 30.8(L) 40.0 - 48.0 % INTERFACE SYSTEM MCV 96.0 82.0 - 99.0 fL INTERFACE SYSTEM MCH 30.2 27.2 - 32.6 pg INTERFACE SYSTEM MCHC 31.5 31.5 - 35.5 % INTERFACE SYSTEM RDW 16.6(H) 11.5 - 14.5 % INTERFACE SYSTEM RDW-STDEV 58.3(H) 37.1 - 48.7 fL INTERFACE SYSTEM PLATELETS 266 140 - 350 K/uL INTERFACE SYSTEM MPV 9.3 9.3 - 12.4 fL INTERFACE SYSTEM 01/04/2006 3:45 AM CDT Wicho Gomez MD HEMATOLOGY ORDERABLES Final R esult Performing Organization Address [place]/[facility]/ZIP Co de Phone Number INTERFACE SYSTEM Refer to clinic/hospital department * (ABNORMAL) C-REACTIVE PROTEIN (01/04/2006 3:45 AM CDT) CRP 14.9(H) 0.0 - 0.8 mg/dL INTERFACE SYSTEM 01/04/2006 3:45 AM CDT us Wicho Gomez MD CHEMISTRY ORDERABLES Final Re sult Performing Organization Address [facility] INTERFACE SYSTEM Refer to clinic/hospital department * (ABNORMAL) PHOSPHORUS (01/04/2006 3:45 AM CDT) PHOSPHORUS 4.6(H) 2.5 - 4.5 mg/dL INTERFACE SYSTEM 01/04/2006 3:45 AM CDT us Wicho Gomez MD CHEMISTRY ORDERABLES Final Re sult Performing Organization Address [facility] INTERFACE SYSTEM Refer to clinic/hospital department * MAGNESIUM LEVEL (01/04/2006 3:45 AM CDT) MAGNESIUM 1.7 1.5 - 2.5 mg/dL INTERFACE SYSTEM 01/04/2006 3:45 AM CDT us Wicho Gomez MD CHEMISTRY ORDERABLES Final Re sult Performing Organization Address [facility] INTERFACE SYSTEM Refer to clinic/hospital department * (ABNORMAL) CALCIUM IONIZED (01/04/2006 3:45 AM CDT) CALCIUM IONIZED 4.44(L) 4.76 - 5.16 mg/dL INTERFACE SYSTEM 01/04/2006 3:45 AM CDT us Wicho Gomez MD CHEMISTRY ORDERABLES Final Re sult Performing Organization Address [facility] Number INTERFACE SYSTEM Refer to clinic/hospital department * (ABNORMAL) BASIC METABOLIC PANEL (01/04/2006 3:45 AM CDT) GLUCOSE 76 65 - 99 mg/dL INTERFACE SYSTEM CREATININE 3.4(H) 0.5 - 1.3 mg/dL INTERFACE SYSTEM CALCIUM 7.6(L) 8.4 - 10.2 mg/dL INTERFACE SYSTEM BUN 36(H) 6 - 20 mg/dL INTERFACE SYSTEM SODIUM 140 135 - 145 mmol/L INTERFACE SYSTEM POTASSIUM 4.3 3.5 - 4.9 mmol/L INTERFACE SYSTEM CHLORIDE 106 96 - 108 mmol/L INTERFACE SYSTEM CO2 26 22 - 30 mmol/L INTERFACE SYSTEM 01/04/2006 3:45 AM CDT Wicho Gomez MD CHEMISTRY ORDERABLES Final Re sult Performing Organization Address [facility] Phone Number INTERFACE SYSTEM Refer to clinic/hospital department * POC GLUCOSE (01/04/2006 12:15 AM CDT) GLUCOSE POC 76 65 - 109 mg/dL INTERFACE SYSTEM 01/04/2006 12:1 5 AM CDT us Wicho Gomez MD POINT OF CARE TESTING Final R [place] Performing Organization Address [facility] Phone Number INTERFACE SYSTEM Refer to clinic/hospital department * (ABNORMAL) PTT (01/04/2006 12:10 AM CDT) PTT 55.9(H) 24.4 - 36.4 Seconds INTERFACE SYSTEM Comment: PTT Therapeutic Range: Heparin Level ? PTT (seconds) <0.10 units/mL ? <53 0.10 - 0.30 units/mL ? 53 - 67 0.30 - 0.70 units/mL* ?67 - 95* 0.70 - 1.00 units/mL ?95 - 116 *corresponds to therapeutic range for unfractionated heparin ?? 01/04/2006 12:1 0 AM CDT us Wicho Gomez MD HEMATOLOGY ORDERABLES Final R esult Performing Organization Address City/[facility] Phone Number INTERFACE SYSTEM Refer to clinic/hospital department * POC GLUCOSE (01/03/2006 6:38 PM CDT) GLUCOSE POC 107 65 - 109 mg/dL INTERFACE SYSTEM 01/03/2006 6:38 PM CDT us Wicho Gomez MD POINT OF CARE TESTING Final R esult Performing Organization Address [facility] Phone Number INTERFACE SYSTEM Refer to clinic/hospital department * (ABNORMAL) PTT (01/03/2006 3:30 PM CDT) PTT 78.4(H) 24.4 - 36.4 Seconds INTERFACE SYSTEM Comment: PTT Therapeutic Range: Heparin Level ? PTT (seconds) <0.10 units/mL ? <53 0.10 - 0.30 units/mL ? 53 - 67 0.30 - 0.70 units/mL* ?67 - 95* 0.70 - 1.00 units/mL ?95 - 116 *corresponds to therapeutic range for unfractionated heparin ?? Collection date/time has been modified to: 15:30:00. ??Previous collection date/time: 13:00:00. 01/03/2006 3:30 PM CDT us Romie Laughlin MD HEMATOLOGY ORDERABLES Final Result Performing Organization Address [facility] Phone Number INTERFACE SYSTEM Refer to clinic/hospital department * POC GLUCOSE (01/03/2006 11:55 AM CDT) GLUCOSE POC 93 65 - 109 mg/dL INTERFACE SYSTEM 01/03/2006 11:5 5 AM CDT us Wicho Gomez MD POINT OF CARE TESTING Final R esult Performing Organization Address [facility] Phone Number INTERFACE SYSTEM Refer to clinic/hospital department * (ABNORMAL) BLOOD GAS ARTERIAL (01/03/2006 9:44 AM CDT) PH ARTERIAL 7.35 7.35 - 7.45 INTERFACE SYSTEM PCO2 ARTERIAL 52(H) 35 - 48 mm Hg INTERFACE SYSTEM PO2 ARTERIAL 74(L) 83 - 108 mm Hg INTERFACE SYSTEM SO2 ABG 97 95 - 99 % INTERFACE SYSTEM FO2HB ABG 95 94 - 98 % INTERFACE SYSTEM HCO3 ARTERIAL 28(H) 22 - 26 mmol/L INTERFACE SYSTEM BASE EXCESS ABG 1.4 -2.0 - 3.0 mmol/L INTERFACE SYSTEM O2 CONC ARTERIAL 50 INTERFACE SYSTEM 01/03/2006 9:44 AM CDT us Wicho Gomez MD ABG ORDERABLES Final Result Performing Organization Address [facility] INTERFACE SYSTEM Refer to clinic/hospital department * CALCIUM IONIZED (01/03/2006 9:44 AM CDT) CALCIUM IONIZED 4.76 4.76 - 5.16 mg/dL INTERFACE SYSTEM 01/03/2006 9:44 AM CDT us Wicho Gomez MD CHEMISTRY ORDERABLES Final Re sult Performing Organization Address [facility] Number INTERFACE SYSTEM Refer to clinic/hospital department * (ABNORMAL) PHOSPHORUS (01/03/2006 9:44 AM CDT) PHOSPHORUS 4.7(H) 2.5 - 4.5 mg/dL INTERFACE SYSTEM 01/03/2006 9:44 AM CDT us Wicho Gomez MD CHEMISTRY ORDERABLES Final Re sult Performing Organization Address [facility] Phone Number INTERFACE SYSTEM Refer to clinic/hospital department * MAGNESIUM LEVEL (01/03/2006 9:43 AM CDT) MAGNESIUM 1.8 1.5 - 2.5 mg/dL INTERFACE SYSTEM 01/03/2006 9:43 AM CDT Wicho Gomez MD CHEMISTRY ORDERABLES Final [facility] Performing Organization Address [facility] Phone Number INTERFACE SYSTEM Refer to clinic/hospital department * (ABNORMAL) BASIC METABOLIC PANEL (01/03/2006 9:43 AM CDT) GLUCOSE 85 65 - 99 mg/dL INTERFACE SYSTEM CREATININE 2.8(H) 0.5 - 1.3 mg/dL INTERFACE SYSTEM CALCIUM 7.8(L) 8.4 - 10.2 mg/dL INTERFACE SYSTEM BUN 32(H) 6 - 20 mg/dL INTERFACE SYSTEM SODIUM 140 135 - 145 mmol/L INTERFACE SYSTEM POTASSIUM 4.2 3.5 - 4.9 mmol/L INTERFACE SYSTEM CHLORIDE 105 96 - 108 mmol/L INTERFACE SYSTEM CO2 28 22 - 30 mmol/L INTERFACE SYSTEM 01/03/2006 9:43 AM CDT Wicho Gomez MD CHEMISTRY ORDERABLES Final Re sult Performing Organization Address [facility] Phone Number INTERFACE SYSTEM Refer to clinic/hospital department * (ABNORMAL) CBC WITH DIFFERENTIAL (01/03/2006 9:43 AM CDT) NEUTROPHILS 87(H) 45 - 70 % INTERFAC E SYSTEM LYMPHOCYTES 6(L) 16 - 45 % INTERFAC E SYSTEM MONOCYTES 7 3 - 13 % INTERFACE SYSTEM EOSINOPHILS 0 0 - 7 % INTERFAC E SYSTEM BASOPHILS 0 0 - 2 % INTERFACE SYSTEM NEUTROPHIL ABSOLUTE 11.39(H) 1.90 - 7.00 K/uL INTERFACE SYSTEM LYMPHOCYTE ABSOLUTE 0.77 0.70 - 4.50 K/uL INTERFACE SYSTEM MONOCYTE ABSOLUTE 0.88 0.10 - 1.30 K/uL INTERFACE SYSTEM EOSINOPHIL ABSOLUTE 0.01 0.00 - 0.70 K/uL INTERFACE SYSTEM BASOPHILS ABSOLUTE 0.02 0.00 - 0.20 K/uL INTERFACE SYSTEM 01/03/2006 9:43 AM CDT Wicho Gomez MD HEMATOLOGY ORDERABLES Final R esult Performing Organization Address [facility]/ZIP Co de Phone Number INTERFACE SYSTEM Refer to clinic/hospital department * (ABNORMAL) CBC WITH DIFFERENTIAL (01/03/2006 9:43 AM CDT) WBC 13.1(H) 4.0 - 9.8 K/uL INTERFACE SYSTEM RBC 3.25(L) 4.50 - 5.40 M/uL INTERFACE SYSTEM HEMOGLOBIN 9.9(L) 13.6 - 16.5 g/dL INTERFACE SYSTEM HEMATOCRIT 30.6(L) 40.0 - 48.0 % INTERFACE SYSTEM MCV 94.2 82.0 - 99.0 fL INTERFACE SYSTEM MCH 30.5 27.2 - 32.6 pg INTERFACE SYSTEM MCHC 32.4 31.5 - 35.5 % INTERFACE SYSTEM RDW 16.2(H) 11.5 - 14.5 % INTERFACE SYSTEM RDW-STDEV 55.4(H) 37.1 - 48.7 fL INTERFACE SYSTEM PLATELETS 244 140 - 350 K/uL INTERFACE SYSTEM MPV 9.3 9.3 - 12.4 fL INTERFACE SYSTEM 01/03/2006 9:43 AM CDT us Wicho Gomez MD HEMATOLOGY ORDERABLES Final R esult Performing Organization Address [place]/[facility] de Phone Number INTERFACE SYSTEM Refer to clinic/hospital department * POC GLUCOSE (01/03/2006 9:41 AM CDT) GLUCOSE POC 95 65 - 109 mg/dL INTERFACE SYSTEM 01/03/2006 9:41 AM CDT us Wicho Gomez MD POINT OF CARE TESTING Final R [place] Performing Organization Address [place]/[facility]/ZIP [place] de Phone Number INTERFACE SYSTEM Refer to clinic/hospital department * POC GLUCOSE (01/03/2006 8:37 AM CDT) GLUCOSE POC 93 65 - 109 mg/dL INTERFACE SYSTEM 01/03/2006 8:37 AM CDT us Wicho Gomez MD POINT OF CARE TESTING Final R esult Performing Organization Address [place]/[facility]/ZIP Co de Phone Number INTERFACE SYSTEM Refer to clinic/hospital department * POC GLUCOSE (01/03/2006 7:56 AM CDT) GLUCOSE POC 80 65 - 109 mg/dL INTERFACE SYSTEM 01/03/2006 7:56 AM CDT us Wicho Gomez MD POINT OF CARE TESTING Final R esult Performing Organization Address [facility] de Phone Number INTERFACE SYSTEM Refer to clinic/hospital department * (ABNORMAL) BLOOD GAS ARTERIAL (01/03/2006 3:45 AM CDT) PH ARTERIAL 7.38 7.35 - 7.45 INTERFACE SYSTEM PCO2 ARTERIAL 49(H) 35 - 48 mm Hg INTERFACE SYSTEM PO2 ARTERIAL 95 83 - 108 mm Hg INTERFACE SYSTEM SO2 ABG 98 95 - 99 % INTERFACE SYSTEM FO2HB ABG 96 94 - 98 % INTERFACE SYSTEM HCO3 ARTERIAL 29(H) 22 - 26 mmol/L INTERFACE SYSTEM BASE EXCESS ABG 3.1(H) -2.0 - 3.0 mmol/L INTERFACE SYSTEM O2 CONC ARTERIAL 35% INTERFACE SYSTEM 01/03/2006 3:45 AM CDT us Harshad Heller MD ABG ORDERABLES Final Result Performing Organization Address [facility] Phone Number INTERFACE SYSTEM Refer to clinic/hospital department * (ABNORMAL) CBC WITH DIFFERENTIAL (01/03/2006 3:45 AM CDT) NEUTROPHILS 84(H) 45 - 70 % INTERFAC E SYSTEM LYMPHOCYTES 8(L) 16 - 45 % INTERFAC E SYSTEM MONOCYTES 8 3 - 13 % INTERFACE SYSTEM EOSINOPHILS 0 0 - 7 % INTERFAC E SYSTEM BASOPHILS 0 0 - 2 % INTERFACE SYSTEM NEUTROPHIL ABSOLUTE 8.32(H) 1.90 - 7.00 K/uL INTERFACE SYSTEM LYMPHOCYTE ABSOLUTE 0.80 0.70 - 4.50 K/uL INTERFACE SYSTEM MONOCYTE ABSOLUTE 0.82 0.10 - 1.30 K/uL INTERFACE SYSTEM EOSINOPHIL ABSOLUTE 0.00 0.00 - 0.70 K/uL INTERFACE SYSTEM BASOPHILS ABSOLUTE 0.01 0.00 - 0.20 K/uL INTERFACE SYSTEM 01/03/2006 3:45 AM CDT Wicho Gomez MD HEMATOLOGY ORDERABLES Final R esult INTERFACE SYSTEM Refer to clinic/hospital department * (ABNORMAL) CBC WITH DIFFERENTIAL (01/03/2006 3:45 AM CDT) WBC 10.0(H) 4.0 - 9.8 K/uL INTERFACE SYSTEM RBC 2.96(L) 4.50 - 5.40 M/uL INTERFACE SYSTEM HEMOGLOBIN 8.7(L) 13.6 - 16.5 g/dL INTERFACE SYSTEM HEMATOCRIT 28.5(L) 40.0 - 48.0 % INTERFACE SYSTEM MCV 96.3 82.0 - 99.0 fL INTERFACE SYSTEM MCH 29.4 27.2 - 32.6 pg INTERFACE SYSTEM MCHC 30.5(L) 31.5 - 35.5 % INTERFACE SYSTEM RDW 16.2(H) 11.5 - 14.5 % INTERFACE SYSTEM RDW-STDEV 56.8(H) 37.1 - 48.7 fL INTERFACE SYSTEM PLATELETS 273 140 - 350 K/uL INTERFACE SYSTEM MPV 9.1(L) 9.3 - 12.4 fL INTERFACE SYSTEM 01/03/2006 3:45 AM CDT Wicho Gomez MD HEMATOLOGY ORDERABLES Final R esult Performing Organization Address [facility] [facility] de Phone Number INTERFACE SYSTEM Refer to clinic/hospital department * PHOSPHORUS (01/03/2006 3:45 AM CDT) PHOSPHORUS 4.5 2.5 - 4.5 mg/dL INTERFACE SYSTEM 01/03/2006 3:45 AM CDT Wicho Gomez MD CHEMISTRY ORDERABLES Final Re sult Performing Organization Address City/[facility] Co de Phone Number INTERFACE SYSTEM Refer to clinic/hospital department * MAGNESIUM LEVEL (01/03/2006 3:45 AM CDT) MAGNESIUM 1.9 1.5 - 2.5 mg/dL INTERFACE SYSTEM 01/03/2006 3:45 AM CDT us Wicho Gomez MD CHEMISTRY ORDERABLES Final Re sult Performing Organization Address [facility] Phone Number INTERFACE SYSTEM Refer to clinic/hospital department * (ABNORMAL) CALCIUM IONIZED (01/03/2006 3:45 AM CDT) CALCIUM IONIZED 4.64(L) 4.76 - 5.16 mg/dL INTERFACE SYSTEM 01/03/2006 3:45 AM CDT Wicho Gomez MD CHEMISTRY ORDERABLES Final Re sult Performing Organization Address [facility] Number INTERFACE SYSTEM Refer to clinic/hospital department * (ABNORMAL) BASIC METABOLIC PANEL (01/03/2006 3:45 AM CDT) GLUCOSE 67 65 - 99 mg/dL INTERFACE SYSTEM CREATININE 2.7(H) 0.5 - 1.3 mg/dL INTERFACE SYSTEM Comment:Significant change f rom prior result, correlate clinically and redraw if necessary. CALCIUM 7.8(L) 8.4 - 10.2 mg/dL INTERFACE SYSTEM BUN 33(H) 6 - 20 mg/dL INTERFACE SYSTEM SODIUM 141 135 - 145 mmol/L INTERFACE SYSTEM POTASSIUM 4.2 3.5 - 4.9 mmol/L INTERFACE SYSTEM CHLORIDE 105 96 - 108 mmol/L INTERFACE SYSTEM CO2 27 22 - 30 mmol/L INTERFACE SYSTEM 01/03/2006 3:45 AM CDT us Wicho Gomez MD CHEMISTRY ORDERABLES Final Re sult Performing Organization Address [facility] Phone Number INTERFACE SYSTEM Refer to clinic/hospital department * DIGOXIN LEVEL (01/03/2006 3:45 AM CDT) DIGOXIN LEVEL 1.1 0.8 - 2.0 ng/mL INTERFACE SYSTEM Comment:Digoxin Toxic Level = >2.0 ng/mL 01/03/2006 3:45 AM CDT us Wicho Gomez MD CHEMISTRY ORDERABLES Final Re sult Performing Organization Address [facility] de Phone Number INTERFACE SYSTEM Refer to clinic/hospital department * POC GLUCOSE (01/02/2006 11:56 PM CDT) COMMENT, GLU POC Notified RN INTERFACE SYSTEM GLUCOSE POC 95 65 - 109 mg/dL INTERFACE SYSTEM 01/02/2006 11:5 6 PM CDT Wicho Gomez MD POINT OF CARE TESTING Final R esult Performing Organization Address [facility] de Phone Number INTERFACE SYSTEM Refer to clinic/hospital department * (ABNORMAL) PTT (01/02/2006 6:55 PM CDT) Pathologist [facility] PTT 102.3(AA) 24.4 - 36.4 Seconds INTERFACE SYSTEM Comment: PTT Therapeutic Range: Heparin Level ? PTT (seconds) <0.10 units/mL ? <53 0.10 - 0.30 units/mL ? 53 - 67 0.30 - 0.70 units/mL* ?67 - 95* 0.70 - 1.00 units/mL ?95 - 116 *corresponds to therapeutic range for unfractionated heparin ?? Verified by repeat analysis. Persistent abnormal result 01/02/2006 6:55 PM CDT Romie Laughlin MD HEMATOLOGY ORDERABLES Final Result Performing Organization Address [facility] de Phone Number INTERFACE SYSTEM Refer to clinic/hospital department * POC GLUCOSE (01/02/2006 5:54 PM CDT) Pathologist [facility] GLUCOSE POC 100 65 - 109 mg/dL INTERFACE SYSTEM 01/02/2006 5:54 PM CDT Wicho Gomez MD POINT OF CARE TESTING Final R esult Performing Organization Address [facility] Phone Number INTERFACE SYSTEM Refer to clinic/hospital department * POC GLUCOSE (01/02/2006 2:54 PM CDT) GLUCOSE POC 74 65 - 109 mg/dL INTERFACE SYSTEM 01/02/2006 2:54 PM CDT us Wicho Gomez MD POINT OF CARE TESTING Final R esult Performing Organization Address [facility] Phone Number INTERFACE SYSTEM Refer to clinic/hospital department * (ABNORMAL) PTT (01/02/2006 1:59 PM CDT) PTT 96.0(AA) 24.4 - 36.4 Seconds INTERFACE SYSTEM Comment: PTT Therapeutic Range: Heparin Level ? PTT (seconds) <0.10 units/mL ? <53 0.10 - 0.30 units/mL ? 53 - 67 0.30 - 0.70 units/mL* ?67 - 95* 0.70 - 1.00 units/mL ?95 - 116 *corresponds to therapeutic range for unfractionated heparin ?? Verified by repeat analysis. Results called to Juarez at 01/02/2006 2:24 PM and read back verified. 01/02/2006 1:59 PM CDT Romie Laughlin MD HEMATOLOGY ORDERABLES Final Result Performing Organization Address [facility] Phone Number INTERFACE SYSTEM Refer to clinic/hospital department * (ABNORMAL) POC GLUCOSE (01/02/2006 1:14 PM CDT) GLUCOSE POC 44(AA) 65 - 109 mg/dL INTERFACE SYSTEM 01/02/2006 1:14 PM CDT us Wicho Gomez MD POINT OF CARE TESTING Final R esult Performing Organization Address [facility] Phone Number INTERFACE SYSTEM Refer to clinic/hospital department * (ABNORMAL) BLOOD GAS ARTERIAL (01/02/2006 4:53 AM CDT) PH ARTERIAL 7.36 7.35 - 7.45 INTERFACE SYSTEM PCO2 ARTERIAL 53(H) 35 - 48 mm Hg INTERFACE SYSTEM PO2 ARTERIAL 68(L) 83 - 108 mm Hg INTERFACE SYSTEM SO2 ABG 95 95 - 99 % INTERFACE SYSTEM FO2HB ABG 94 94 - 98 % INTERFACE SYSTEM HCO3 ARTERIAL 30(H) 22 - 26 mmol/L INTERFACE SYSTEM BASE EXCESS ABG 3.3(H) -2.0 - 3.0 mmol/L INTERFACE SYSTEM O2 CONC ARTERIAL 50% INTERFACE SYSTEM 01/02/2006 4:53 AM CDT us Harshad Heller MD ABG ORDERABLES Final Result Performing Organization Address [facility] Phone Number INTERFACE SYSTEM Refer to clinic/hospital department * (ABNORMAL) PTT (01/02/2006 4:30 AM CDT) PTT 94.7(H) 24.4 - 36.4 Seconds INTERFACE SYSTEM Comment: PTT Therapeutic Range: Heparin Level ? PTT (seconds) <0.10 units/mL ? <53 0.10 - 0.30 units/mL ? 53 - 67 0.30 - 0.70 units/mL* ?67 - 95* 0.70 - 1.00 units/mL ?95 - 116 *corresponds to therapeutic range for unfractionated heparin ?? 01/02/2006 4:3 0 AM CDT us Wicho Gomez MD HEMATOLOGY ORDERABLES Final R esult Performing Organization Address [facility] Phone Number INTERFACE SYSTEM Refer to clinic/hospital department * (ABNORMAL) CBC WITH DIFFERENTIAL (01/02/2006 4:30 AM CDT) NEUTROPHILS 78(H) 45 - 70 % INTERFAC E SYSTEM LYMPHOCYTES 11(L) 16 - 45 % INTERFAC E SYSTEM MONOCYTES 10 3 - 13 % INTERFACE SYSTEM EOSINOPHILS 0 0 - 7 % INTERFAC E SYSTEM BASOPHILS 0 0 - 2 % INTERFACE SYSTEM NEUTROPHIL ABSOLUTE 8.55(H) 1.90 - 7.00 K/uL INTERFACE SYSTEM LYMPHOCYTE ABSOLUTE 1.23 0.70 - 4.50 K/uL INTERFACE SYSTEM MONOCYTE ABSOLUTE 1.10 0.10 - 1.30 K/uL INTERFACE SYSTEM EOSINOPHIL ABSOLUTE 0.01 0.00 - 0.70 K/uL INTERFACE SYSTEM BASOPHILS ABSOLUTE 0.02 0.00 - 0.20 K/uL INTERFACE SYSTEM 01/02/2006 4:30 AM CDT us Harshad Heller MD HEMATOLOGY ORDERABLES Final Res ult Performing Organization Address [facility]/ZIP Co de Phone Number INTERFACE SYSTEM Refer to clinic/hospital department * (ABNORMAL) CBC WITH DIFFERENTIAL (01/02/2006 4:30 AM CDT) [facility] WBC 10.9(H) 4.0 - 9.8 K/uL INTERFACE SYSTEM RBC 3.20(L) 4.50 - 5.40 M/uL INTERFACE SYSTEM HEMOGLOBIN 9.8(L) 13.6 - 16.5 g/dL INTERFACE SYSTEM HEMATOCRIT 31.1(L) 40.0 - 48.0 % INTERFACE SYSTEM MCV 97.2 82.0 - 99.0 fL INTERFACE SYSTEM MCH 30.6 27.2 - 32.6 pg INTERFACE SYSTEM MCHC 31.5 31.5 - 35.5 % INTERFACE SYSTEM RDW 16.1(H) 11.5 - 14.5 % INTERFACE SYSTEM RDW-STDEV 56.1(H) 37.1 - 48.7 fL INTERFACE SYSTEM PLATELETS 325 140 - 350 K/uL INTERFACE SYSTEM MPV 9.4 9.3 - 12.4 fL INTERFACE SYSTEM 01/02/2006 4:30 AM CDT Harshad Heller MD HEMATOLOGY ORDERABLES Final Res ult Performing Organization Address City/[facility]/ZIP Co de Phone Number INTERFACE SYSTEM Refer to clinic/hospital department * (ABNORMAL) PHOSPHORUS (01/02/2006 4:30 AM CDT) PHOSPHORUS 5.4(H) 2.5 - 4.5 mg/dL INTERFACE SYSTEM 01/02/2006 4:30 AM CDT Harshad Heller MD CHEMISTRY ORDERABLES Final Resu lt Performing Organization Address [facility] Phone Number INTERFACE SYSTEM Refer to clinic/hospital department * MAGNESIUM LEVEL (01/02/2006 4:30 AM CDT) MAGNESIUM 1.8 1.5 - 2.5 mg/dL INTERFACE SYSTEM 01/02/2006 4:30 AM CDT Harshad Heller MD CHEMISTRY ORDERABLES Final Resu lt Performing Organization Address [facility] Phone Number INTERFACE SYSTEM Refer to clinic/hospital department * (ABNORMAL) CALCIUM IONIZED (01/02/2006 4:30 AM CDT) CALCIUM IONIZED 4.48(L) 4.76 - 5.16 mg/dL INTERFACE SYSTEM 01/02/2006 4:30 AM CDT Harshad Heller MD CHEMISTRY ORDERABLES Final Resu lt Performing Organization Address [facility] Phone Number INTERFACE SYSTEM Refer to clinic/hospital department * (ABNORMAL) BASIC METABOLIC PANEL (01/02/2006 4:30 AM CDT) GLUCOSE 86 65 - 99 mg/dL INTERFACE SYSTEM CREATININE 1.9(H) 0.5 - 1.3 mg/dL INTERFACE SYSTEM Comment:Significant change f rom prior result, correlate clinically and redraw if necessary. CALCIUM 8.3(L) 8.4 - 10.2 mg/dL INTERFACE SYSTEM BUN 26(H) 6 - 20 mg/dL INTERFACE SYSTEM SODIUM 141 135 - 145 mmol/L INTERFACE SYSTEM POTASSIUM 4.0 3.5 - 4.9 mmol/L INTERFACE SYSTEM CHLORIDE 104 96 - 108 mmol/L INTERFACE SYSTEM CO2 30 22 - 30 mmol/L INTERFACE SYSTEM 01/02/2006 4:30 AM CDT us Harshad Heller MD CHEMISTRY ORDERABLES Final Resu lt Performing Organization Address [facility] Phone Number INTERFACE SYSTEM Refer to clinic/hospital department * POC GLUCOSE (01/02/2006 12:43 AM CDT) COMMENT, GLU POC Notified RN INTERFACE SYSTEM GLUCOSE POC 65 65 - 109 mg/dL INTERFACE SYSTEM 01/02/2006 12:4 3 AM CDT us Wicho Gomez MD POINT OF CARE TESTING Final R esult Performing Organization Address [facility] Phone Number INTERFACE SYSTEM Refer to clinic/hospital department * (ABNORMAL) PTT (01/01/2006 10:45 PM CDT) PTT 84.5(H) 24.4 - 36.4 Seconds INTERFACE SYSTEM Comment: PTT Therapeutic Range: Heparin Level ? PTT (seconds) <0.10 units/mL ? <53 0.10 - 0.30 units/mL ? 53 - 67 0.30 - 0.70 units/mL* ?67 - 95* 0.70 - 1.00 units/mL ?95 - 116 *corresponds to therapeutic range for unfractionated heparin ?? 01/01/2006 10:4 5 PM CDT us Romie Laughlin MD HEMATOLOGY ORDERABLES Final Result Performing Organization Address [facility] Phone Number INTERFACE SYSTEM Refer to clinic/hospital department * POC GLUCOSE (01/01/2006 4:59 PM CDT) GLUCOSE POC 91 65 - 109 mg/dL INTERFACE SYSTEM 01/01/2006 4:59 PM CDT us Wicho Gomez MD POINT OF CARE TESTING Final R esult Performing Organization Address [facility] Phone Number INTERFACE SYSTEM Refer to clinic/hospital department * (ABNORMAL) PTT (01/01/2006 12:45 PM CDT) PTT >150.0(AA ) 24.4 - 36.4 Seconds INTERFACE SYSTEM Comment: PTT Therapeutic Range: Heparin Level ? PTT (seconds) <0.10 units/mL ? <53 0.10 - 0.30 units/mL ? 53 - 67 0.30 - 0.70 units/mL* ?67 - 95* 0.70 - 1.00 units/mL ?95 - 116 *corresponds to therapeutic range for unfractionated heparin ?? Results called to natalio at 01/01/2006 1:15 PM and read back verified. 01/01/2006 12:4 5 PM CDT us Romie Laughlin MD HEMATOLOGY ORDERABLES Final Result Performing Organization Address [facility] Phone Number INTERFACE SYSTEM Refer to clinic/hospital department * POC GLUCOSE (01/01/2006 12:12 PM CDT) GLUCOSE POC 90 65 - 109 mg/dL INTERFACE SYSTEM 01/01/2006 12:1 2 PM CDT us Wicho Gomez MD POINT OF CARE TESTING Final R esult Performing Organization Address [facility] de Phone Number INTERFACE SYSTEM Refer to clinic/hospital department * (ABNORMAL) PTT (01/01/2006 6:20 AM CDT) PTT 71.5(H) 24.4 - 36.4 Seconds INTERFACE SYSTEM Comment: PTT Therapeutic Range: Heparin Level ? PTT (seconds) <0.10 units/mL ? <53 0.10 - 0.30 units/mL ? 53 - 67 0.30 - 0.70 units/mL* ?67 - 95* 0.70 - 1.00 units/mL ?95 - 116 *corresponds to therapeutic range for unfractionated heparin ?? 01/01/2006 6:20 AM CDT us Romie Laughlin MD HEMATOLOGY ORDERABLES Final Result Performing Organization Address [facility] Phone Number INTERFACE SYSTEM Refer to clinic/hospital department * (ABNORMAL) POC GLUCOSE (01/01/2006 6:10 AM CDT) GLUCOSE POC 112(H) 65 - 109 mg/dL INTERFACE SYSTEM 01/01/2006 6:10 AM CDT us Wicho Gomez MD POINT OF CARE TESTING Final R esult Performing Organization Address [facility] Phone Number INTERFACE SYSTEM Refer to clinic/hospital department * (ABNORMAL) CBC WITH DIFFERENTIAL (01/01/2006 3:50 AM CDT) NEUTROPHIL ABSOLUTE 8.91(H) 1.90 - 7.00 K/uL INTERFACE SYSTEM LYMPHOCYTE ABSOLUTE 0.00(L) 0.70 - 4.50 K/uL INTERFACE SYSTEM MONOCYTE ABSOLUTE 0.09(L) 0.10 - 1.30 K/uL INTERFACE SYSTEM EOSINOPHIL ABSOLUTE 0.00 0.00 - 0.70 K/uL INTERFACE SYSTEM BASOPHILS ABSOLUTE 0.00 0.00 - 0.20 K/uL INTERFACE SYSTEM NEUTROPHILS, SEG 93(H) 45 - 70 % INT ERFACE SYSTEM BANDS 6(H) 0 - 5 % INTERFACE SYSTEM LYMPHOCYTES 0(L) 16 - 45 % INTERFAC E SYSTEM MONOCYTES 1(L) 3 - 13 % INTERFACE SYSTEM EOSINOPHILS 0 0 - 7 % INTERFAC E SYSTEM BASOPHILS 0 0 - 2 % INTERFACE SYSTEM PLATELET EST. Consistent w/ count Normal INTERFACE SYSTEM ANISOCYTOSIS Slight INTERFA CE SYSTEM POIKILOCYTES Slight INTERFA CE SYSTEM MICROCYTES Slight INTERFACE SYSTEM MACROCYTES Slight INTERFACE SYSTEM POLYCHROMASIA Slight INTERF CINDY SYSTEM HYPOCHROMIA Slight INTERFAC E SYSTEM ROULEAUX Present INTERFACE SYSTEM GIANT PLATELETS Present INTE RFACE SYSTEM REVIEWED ON SMEAR WBC & Plt Reviewed INTERFACE SYSTEM 01/01/2006 3:50 AM CDT us Harshad Heller MD HEMATOLOGY ORDERABLES Final Res ult Performing Organization Address City/[facility]/ZIP Co de Phone Number INTERFACE SYSTEM Refer to clinic/hospital department * (ABNORMAL) CBC WITH DIFFERENTIAL (01/01/2006 3:50 AM CDT) WBC 9.0 4.0 - 9.8 K/uL INTERFACE SYSTEM RBC 3.10(L) 4.50 - 5.40 M/uL INTERFACE SYSTEM HEMOGLOBIN 9.2(L) 13.6 - 16.5 g/dL INTERFACE SYSTEM HEMATOCRIT 29.6(L) 40.0 - 48.0 % INTERFACE SYSTEM MCV 95.5 82.0 - 99.0 fL INTERFACE SYSTEM MCH 29.7 27.2 - 32.6 pg INTERFACE SYSTEM MCHC 31.1(L) 31.5 - 35.5 % INTERFACE SYSTEM RDW 15.9(H) 11.5 - 14.5 % INTERFACE SYSTEM RDW-STDEV 54.5(H) 37.1 - 48.7 fL INTERFACE SYSTEM PLATELETS 268 140 - 350 K/uL INTERFACE SYSTEM MPV 8.8(L) 9.3 - 12.4 fL INTERFACE SYSTEM 01/01/2006 3:50 AM CDT us Harshad Heller MD HEMATOLOGY ORDERABLES Final Res ult INTERFACE SYSTEM Refer to clinic/hospital department * (ABNORMAL) CALCIUM IONIZED (01/01/2006 3:50 AM CDT) CALCIUM IONIZED 4.64(L) 4.76 - 5.16 mg/dL INTERFACE SYSTEM 01/01/2006 3:50 AM CDT us Harshad Heller MD CHEMISTRY ORDERABLES Final Resu lt Performing Organization Address [facility] Phone Number INTERFACE SYSTEM Refer to clinic/hospital department * (ABNORMAL) PHOSPHORUS (01/01/2006 3:50 AM CDT) PHOSPHORUS 5.0(H) 2.5 - 4.5 mg/dL INTERFACE SYSTEM 01/01/2006 3:50 AM CDT Harshad Heller MD CHEMISTRY ORDERABLES Final Resu lt Performing Organization Address [facility] Phone Number INTERFACE SYSTEM Refer to clinic/hospital department * MAGNESIUM LEVEL (01/01/2006 3:50 AM CDT) MAGNESIUM 2.1 1.5 - 2.5 mg/dL INTERFACE SYSTEM 01/01/2006 3:50 AM CDT Harshad Heller MD CHEMISTRY ORDERABLES Final Resu lt Performing Organization Address [facility] Phone Number INTERFACE SYSTEM Refer to clinic/hospital department * (ABNORMAL) BASIC METABOLIC PANEL (01/01/2006 3:50 AM CDT) GLUCOSE 61(L) 65 - 99 mg/dL INTERFACE SYSTEM CREATININE 1.3 0.5 - 1.3 mg/dL INTERFACE SYSTEM CALCIUM 7.8(L) 8.4 - 10.2 mg/dL INTERFACE SYSTEM BUN 25(H) 6 - 20 mg/dL INTERFACE SYSTEM SODIUM 141 135 - 145 mmol/L INTERFACE SYSTEM POTASSIUM 4.0 3.5 - 4.9 mmol/L INTERFACE SYSTEM CHLORIDE 105 96 - 108 mmol/L INTERFACE SYSTEM CO2 30 22 - 30 mmol/L INTERFACE SYSTEM 01/01/2006 3:50 AM CDT us Harshad Heller MD CHEMISTRY ORDERABLES Final Resu lt Performing Organization Address [facility] Phone Number INTERFACE SYSTEM Refer to clinic/hospital department * (ABNORMAL) PTT (01/01/2006 1:00 AM CDT) PTT >150.0(AA ) 24.4 - 36.4 Seconds INTERFACE SYSTEM Comment: PTT Therapeutic Range: Heparin Level ? PTT (seconds) <0.10 units/mL ? <53 0.10 - 0.30 units/mL ? 53 - 67 0.30 - 0.70 units/mL* ?67 - 95* 0.70 - 1.00 units/mL ?95 - 116 *corresponds to therapeutic range for unfractionated heparin ?? Results called to Makenzie at 01/01/2006 2:56 AM and read back verified. 01/01/2006 1:00 AM CDT us Romie Laughlin MD HEMATOLOGY ORDERABLES Final Result Performing Organization Address [facility] de Phone Number INTERFACE SYSTEM Refer to clinic/hospital department * (ABNORMAL) POC GLUCOSE (01/01/2006 12:33 AM CDT) GLUCOSE POC 128(H) 65 - 109 mg/dL INTERFACE SYSTEM 01/01/2006 12:3 3 AM CDT us Wicho Gomez MD POINT OF CARE TESTING Final R esult Performing Organization Address [facility] de Phone Number INTERFACE SYSTEM Refer to clinic/hospital department * (ABNORMAL) PTT (12/31/2005 7:00 PM CDT) PTT 43.2(H) 24.4 - 36.4 Seconds INTERFACE SYSTEM Comment: PTT Therapeutic Range: Heparin Level ? PTT (seconds) <0.10 units/mL ? <53 0.10 - 0.30 units/mL ? 53 - 67 0.30 - 0.70 units/mL* ?67 - 95* 0.70 - 1.00 units/mL ?95 - 116 *corresponds to therapeutic range for unfractionated heparin ?? 12/31/2005 7:00 PM CDT Romie Laughlin MD HEMATOLOGY ORDERABLES Final Result Performing Organization Address [facility] Phone Number INTERFACE SYSTEM Refer to clinic/hospital department * POC GLUCOSE (12/31/2005 6:37 PM CDT) GLUCOSE POC 97 65 - 109 mg/dL INTERFACE SYSTEM 12/31/2005 6:37 PM CDT Wicho Gomez MD POINT OF CARE TESTING Final R esult Performing Organization Address [facility] Phone Number INTERFACE SYSTEM Refer to clinic/hospital department * (ABNORMAL) PTT (12/31/2005 1:00 PM CDT) PTT 76.6(H) 24.4 - 36.4 Seconds INTERFACE SYSTEM Comment: PTT Therapeutic Range: Heparin Level ? PTT (seconds) <0.10 units/mL ? <53 0.10 - 0.30 units/mL ? 53 - 67 0.30 - 0.70 units/mL* ?67 - 95* 0.70 - 1.00 units/mL ?95 - 116 *corresponds to therapeutic range for unfractionated heparin ?? 12/31/2005 1:00 PM CDT Romie Laughlin MD HEMATOLOGY ORDERABLES Final Result Performing Organization Address [facility] Phone Number INTERFACE SYSTEM Refer to clinic/hospital department * POC GLUCOSE (12/31/2005 12:58 PM CDT) COMMENT, GLU POC Notified RN INTERFACE SYSTEM GLUCOSE POC 80 65 - 109 mg/dL INTERFACE SYSTEM 12/31/2005 12:5 8 PM CDT Wicho Gomez MD POINT OF CARE TESTING Final R esult Performing Organization Address [facility] Phone Number INTERFACE SYSTEM Refer to clinic/hospital department * (ABNORMAL) PTT (12/31/2005 6:50 AM CDT) PTT 61.5(H) 24.4 - 36.4 Seconds INTERFACE SYSTEM Comment: PTT Therapeutic Range: Heparin Level ? PTT (seconds) <0.10 units/mL ? <53 0.10 - 0.30 units/mL ? 53 - 67 0.30 - 0.70 units/mL* ?67 - 95* 0.70 - 1.00 units/mL ?95 - 116 *corresponds to therapeutic range for unfractionated heparin ?? 12/31/2005 6:50 AM CDT Romie Laughlin MD HEMATOLOGY ORDERABLES Final Result Performing Organization Address [facility] Phone Number INTERFACE SYSTEM Refer to clinic/hospital department * POC GLUCOSE (12/31/2005 6:16 AM CDT) GLUCOSE POC 92 65 - 109 mg/dL INTERFACE SYSTEM 12/31/2005 6:16 AM CDT us Wicho Gomez MD POINT OF CARE TESTING Final R esult Performing Organization Address [facility] Phone Number INTERFACE SYSTEM Refer to clinic/hospital department * (ABNORMAL) CBC WITH DIFFERENTIAL (12/31/2005 4:00 AM CDT) NEUTROPHIL ABSOLUTE 10.01(H) 1.90 - 7.00 K/uL INTERFACE SYSTEM LYMPHOCYTE ABSOLUTE 0.23(L) 0.70 - 4.50 K/uL INTERFACE SYSTEM MONOCYTE ABSOLUTE 0.92 0.10 - 1.30 K/uL INTERFACE SYSTEM EOSINOPHIL ABSOLUTE 0.00 0.00 - 0.70 K/uL INTERFACE SYSTEM BASOPHILS ABSOLUTE 0.00 0.00 - 0.20 K/uL INTERFACE SYSTEM NEUTROPHILS, SEG 84(H) 45 - 70 % INT ERFACE SYSTEM BANDS 3 0 - 5 % INTERFACE SYSTEM LYMPHOCYTES 1(L) 16 - 45 % INTERFAC E SYSTEM MONOCYTES 8 3 - 13 % INTERFACE SYSTEM EOSINOPHILS 0 0 - 7 % INTERFAC E SYSTEM BASOPHILS 0 0 - 2 % INTERFACE SYSTEM METAMYELOCYTE 1(H) <=0 % INTERF CINDY SYSTEM MYELOCYTES 2(H) <=0 % INTERFACE SYSTEM ATYPICAL LYMPHOCYTE 1 0 - 5 % INTERFACE SYSTEM PLATELET EST. Consistent w/ count Normal INTERFACE SYSTEM ANISOCYTOSIS Slight INTERFA CE SYSTEM POIKILOCYTES Slight INTERFA CE SYSTEM MICROCYTES Slight INTERFACE SYSTEM POLYCHROMASIA Slight INTERF CINDY SYSTEM HYPOCHROMIA Slight INTERFAC E SYSTEM TOXIC GRANULATION Slight IN TERFACE SYSTEM VACUOLATED NEUTROPHILS Present INTERFACE SYSTEM GIANT PLATELETS Present INTE RFACE SYSTEM 12/31/2005 4:00 AM CDT us Romie Laughlin MD HEMATOLOGY ORDERABLES Final Result INTERFACE SYSTEM Refer to clinic/hospital department * (ABNORMAL) CBC WITH DIFFERENTIAL (12/31/2005 4:00 AM CDT) WBC 11.5(H) 4.0 - 9.8 K/uL INTERFACE SYSTEM RBC 3.30(L) 4.50 - 5.40 M/uL INTERFACE SYSTEM HEMOGLOBIN 9.6(L) 13.6 - 16.5 g/dL INTERFACE SYSTEM HEMATOCRIT 31.3(L) 40.0 - 48.0 % INTERFACE SYSTEM MCV 94.8 82.0 - 99.0 fL INTERFACE SYSTEM MCH 29.1 27.2 - 32.6 pg INTERFACE SYSTEM MCHC 30.7(L) 31.5 - 35.5 % INTERFACE SYSTEM RDW 15.8(H) 11.5 - 14.5 % INTERFACE SYSTEM RDW-STDEV 54.7(H) 37.1 - 48.7 fL INTERFACE SYSTEM PLATELETS 365(H) 140 - 350 K/uL INTERFACE SYSTEM MPV 9.1(L) 9.3 - 12.4 fL INTERFACE SYSTEM 12/31/2005 4:00 AM CDT Romie Laughlin MD HEMATOLOGY ORDERABLES Final Result Performing Organization Address [facility] Number INTERFACE SYSTEM Refer to clinic/hospital department * (ABNORMAL) C-REACTIVE PROTEIN (12/31/2005 4:00 AM CDT) CRP 24.9(H) 0.0 - 0.8 mg/dL INTERFACE SYSTEM 12/31/2005 4:00 AM CDT Tobi Tubbs MD CHEMISTRY ORDERABLES Final Result Performing Organization Address [facility] INTERFACE SYSTEM Refer to clinic/hospital department * (ABNORMAL) PHOSPHORUS (12/31/2005 4:00 AM CDT) PHOSPHORUS 6.0(H) 2.5 - 4.5 mg/dL INTERFACE SYSTEM 12/31/2005 4:00 AM CDT Romie Laughlin MD CHEMISTRY ORDERABLES Final R esult Performing Organization Address [facility] Number INTERFACE SYSTEM Refer to clinic/hospital department * MAGNESIUM LEVEL (12/31/2005 4:00 AM CDT) MAGNESIUM 1.9 1.5 - 2.5 mg/dL INTERFACE SYSTEM 12/31/2005 4:00 AM CDT Romie Laughlin MD CHEMISTRY ORDERABLES Final R esult Performing Organization Address [facility] Phone Number INTERFACE SYSTEM Refer to clinic/hospital department * (ABNORMAL) CALCIUM IONIZED (12/31/2005 4:00 AM CDT) CALCIUM IONIZED 4.52(L) 4.76 - 5.16 mg/dL INTERFACE SYSTEM 12/31/2005 4:00 AM CDT Romie Laughlin MD CHEMISTRY ORDERABLES [facility] Performing Organization Address [facility] Phone Number INTERFACE SYSTEM Refer to clinic/hospital department * (ABNORMAL) BASIC METABOLIC PANEL (12/31/2005 4:00 AM CDT) GLUCOSE 87 65 - 99 mg/dL INTERFACE SYSTEM CREATININE 1.1 0.5 - 1.3 mg/dL INTERFACE SYSTEM CALCIUM 7.7(L) 8.4 - 10.2 mg/dL INTERFACE SYSTEM BUN 27(H) 6 - 20 mg/dL INTERFACE SYSTEM SODIUM 140 135 - 145 mmol/L INTERFACE SYSTEM POTASSIUM 4.3 3.5 - 4.9 mmol/L INTERFACE SYSTEM CHLORIDE 105 96 - 108 mmol/L INTERFACE SYSTEM CO2 27 22 - 30 mmol/L INTERFACE SYSTEM 12/31/2005 4:00 AM CDT Romie Laughlin MD CHEMISTRY ORDERABLES Final R esult Performing Organization Address [facility] Phone Number INTERFACE SYSTEM Refer to clinic/hospital department * (ABNORMAL) PTT (12/31/2005 1:15 AM CDT) PTT 124.3(AA) 24.4 - 36.4 Seconds INTERFACE SYSTEM Comment: PTT Therapeutic Range: Heparin Level ? PTT (seconds) <0.10 units/mL ? <53 0.10 - 0.30 units/mL ? 53 - 67 0.30 - 0.70 units/mL* ?67 - 95* 0.70 - 1.00 units/mL ?95 - 116 *corresponds to therapeutic range for unfractionated heparin ?? Results called to princess at 12/31/2005 2:13 AM and read back verified. 12/31/2005 1:15 AM CDT Romie Laughlin MD HEMATOLOGY ORDERABLES Final Result Performing Organization Address [facility] de Phone Number INTERFACE SYSTEM Refer to clinic/hospital department * (ABNORMAL) POC GLUCOSE (12/30/2005 11:52 PM CDT) GLUCOSE POC 110(H) 65 - 109 mg/dL INTERFACE SYSTEM COMMENT 4, GLU POC Rptd gluc at no charge INTERFACE SYSTEM 12/30/2005 11:5 2 PM CDT Wicho Gomez MD POINT OF CARE TESTING Final R esult Performing Organization Address [facility] de Phone Number INTERFACE SYSTEM Refer to clinic/hospital department * POC GLUCOSE (12/30/2005 11:49 PM CDT) GLUCOSE POC 79 65 - 109 mg/dL INTERFACE SYSTEM COMMENT 4, GLU POC Glucose to be verified INTERFACE SYSTEM 12/30/2005 11:4 9 PM CDT Wicho Gomez MD POINT OF CARE TESTING Final R esult Performing Organization Address [facility] de Phone Number INTERFACE SYSTEM Refer to clinic/hospital department * (ABNORMAL) PTT (12/30/2005 6:00 PM CDT) PTT 85.6(H) 24.4 - 36.4 Seconds INTERFACE SYSTEM Comment: PTT Therapeutic Range: Heparin Level ? PTT (seconds) <0.10 units/mL ? <53 0.10 - 0.30 units/mL ? 53 - 67 0.30 - 0.70 units/mL* ?67 - 95* 0.70 - 1.00 units/mL ?95 - 116 *corresponds to therapeutic range for unfractionated heparin ?? 12/30/2005 6:00 PM CDT Romie Laughlin MD HEMATOLOGY ORDERABLES Final Result Performing Organization Address [facility] Phone Number INTERFACE SYSTEM Refer to clinic/hospital department * (ABNORMAL) POC GLUCOSE (12/30/2005 5:58 PM CDT) GLUCOSE POC 119(H) 65 - 109 mg/dL INTERFACE SYSTEM 12/30/2005 5:58 PM CDT us Wicho Gomez MD POINT OF CARE TESTING Final R esult Performing Organization Address [facility] Phone Number INTERFACE SYSTEM Refer to clinic/hospital department * (ABNORMAL) PTT (12/30/2005 1:00 PM CDT) PTT 90.0(H) 24.4 - 36.4 Seconds INTERFACE SYSTEM Comment: PTT Therapeutic Range: Heparin Level ? PTT (seconds) <0.10 units/mL ? <53 0.10 - 0.30 units/mL ? 53 - 67 0.30 - 0.70 units/mL* ?67 - 95* 0.70 - 1.00 units/mL ?95 - 116 *corresponds to therapeutic range for unfractionated heparin ?? 12/30/2005 1:00 PM CDT us Romie Laughlin MD HEMATOLOGY ORDERABLES Final Result Performing Organization Address [facility] Phone Number INTERFACE SYSTEM Refer to clinic/hospital department * VANCOMYCIN LEVEL TROUGH (12/30/2005 12:55 PM CDT) VANCOMYCIN, TROUGH 6.5 5.0 - 15.0 ug/mL INTERFACE SYSTEM Comment: Vancomycin Trough Toxic Level= ??>15.0 ug/mL 12/30/2005 12:5 5 PM CDT Romie Laughlin MD CHEMISTRY ORDERABLES Final R esult Performing Organization [facility] Phone Number INTERFACE SYSTEM Refer to clinic/hospital department * (ABNORMAL) PTT (12/30/2005 10:15 AM CDT) PTT 126.0(AA) 24.4 - 36.4 Seconds INTERFACE SYSTEM Comment: PTT Therapeutic Range: Heparin Level ? PTT (seconds) <0.10 units/mL ? <53 0.10 - 0.30 units/mL ? 53 - 67 0.30 - 0.70 units/mL* ?67 - 95* 0.70 - 1.00 units/mL ?95 - 116 *corresponds to therapeutic range for unfractionated heparin ?? Verified by repeat analysis. Results called to Delfina at 12/30/2005 11:43 AM and read back verified. 12/30/2005 10:1 5 AM CDT us Romie Laughlin MD HEMATOLOGY ORDERABLES Final Result Performing Organization Address [facility] Phone Number INTERFACE SYSTEM Refer to clinic/hospital department * (ABNORMAL) POC GLUCOSE (12/30/2005 6:28 AM CDT) GLUCOSE POC 127(H) 65 - 109 mg/dL INTERFACE SYSTEM 12/30/2005 6:28 AM CDT us Wicho Gomez MD POINT OF CARE TESTING Final R esult Performing Organization Address [facility] de Phone Number INTERFACE SYSTEM Refer to clinic/hospital department * (ABNORMAL) PT AND APTT (12/30/2005 2:40 AM CDT) PROTIME 18.3(H) 12.7 - 15.1 Seconds INTERFACE SYSTEM INR 1.4(H) 0.9 - 1.1 INTERFACE SYSTEM Comment: INR Therapeutic Range: Adult: 2.0 - 3.0 for pulmonary embolism or prophylaxis against venous thrombosis or systemic embolization. 2.0 - 3.0 for patients with tissue heart valves. ?? 2.5 - 3.5 for patients with mechanical heart valves or post MD. Pediatric ??(12 years and under): 1.5 - 3.0 Although the target range in children is not well established , INR values of 1.5 - 3.0 are recommended for most patients. Higher values have been used in children with prosthetic cardiac valves and hereditary clotting disorders. (<3 days) therapeutic ranges have not been established. PTT 82.4(H) 24.4 - 36.4 Seconds INTERFACE SYSTEM Comment: PTT Therapeutic Range: Heparin Level ? PTT (seconds) <0.10 units/mL ? <53 0.10 - 0.30 units/mL ? 53 - 67 0.30 - 0.70 units/mL* ?67 - 95* 0.70 - 1.00 units/mL ?95 - 116 *corresponds to therapeutic range for unfractionated heparin ?? 12/30/2005 2:40 AM CDT us Romie Laughlin MD HEMATOLOGY ORDERABLES Final Result INTERFACE SYSTEM Refer to clinic/hospital department * (ABNORMAL) CBC WITH DIFFERENTIAL (12/30/2005 2:40 AM CDT) NEUTROPHIL ABSOLUTE 9.03(H) 1.90 - 7.00 K/uL INTERFACE SYSTEM LYMPHOCYTE ABSOLUTE 0.53(L) 0.70 - 4.50 K/uL INTERFACE SYSTEM MONOCYTE ABSOLUTE 0.73 0.10 - 1.30 K/uL INTERFACE SYSTEM EOSINOPHIL ABSOLUTE 0.00 0.00 - 0.70 K/uL INTERFACE SYSTEM BASOPHILS ABSOLUTE 0.00 0.00 - 0.20 K/uL INTERFACE SYSTEM NEUTROPHILS, SEG 80(H) 45 - 70 % INT ERFACE SYSTEM BANDS 6(H) 0 - 5 % INTERFACE SYSTEM LYMPHOCYTES 5(L) 16 - 45 % INTERFAC E SYSTEM MONOCYTES 7 3 - 13 % INTERFACE SYSTEM EOSINOPHILS 0 0 - 7 % INTERFAC E SYSTEM BASOPHILS 0 0 - 2 % INTERFACE SYSTEM METAMYELOCYTE 2(H) <=0 % INTERF CINDY SYSTEM PLATELET EST. Consistent w/ count Normal INTERFACE SYSTEM ANISOCYTOSIS Slight INTERFA CE SYSTEM POIKILOCYTES Slight INTERFA CE SYSTEM POLYCHROMASIA Slight INTERF CINDY SYSTEM OVALOCYTES Slight INTERFACE SYSTEM 12/30/2005 2:40 AM CDT Romie Laughlin MD HEMATOLOGY ORDERABLES Final Result Performing Organization Address [place]/[facility] de Phone Number INTERFACE SYSTEM Refer to clinic/hospital department * (ABNORMAL) CBC WITH DIFFERENTIAL (12/30/2005 2:40 AM CDT) WBC 10.5(H) 4.0 - 9.8 K/uL INTERFACE SYSTEM RBC 3.15(L) 4.50 - 5.40 M/uL INTERFACE SYSTEM HEMOGLOBIN 9.5(L) 13.6 - 16.5 g/dL INTERFACE SYSTEM HEMATOCRIT 29.8(L) 40.0 - 48.0 % INTERFACE SYSTEM MCV 94.6 82.0 - 99.0 fL INTERFACE SYSTEM MCH 30.2 27.2 - 32.6 pg INTERFACE SYSTEM MCHC 31.9 31.5 - 35.5 % INTERFACE SYSTEM RDW 15.6(H) 11.5 - 14.5 % INTERFACE SYSTEM RDW-STDEV 53.6(H) 37.1 - 48.7 fL INTERFACE SYSTEM PLATELETS 324 140 - 350 K/uL INTERFACE SYSTEM MPV 9.2(L) 9.3 - 12.4 fL INTERFACE SYSTEM 12/30/2005 2:40 AM CDT Romie Laughlin MD HEMATOLOGY ORDERABLES Final Result Performing Organization Address [place]/[facility]/ZIP Co de Phone Number INTERFACE SYSTEM Refer to clinic/hospital department * (ABNORMAL) PHOSPHORUS (12/30/2005 2:40 AM CDT) PHOSPHORUS 5.4(H) 2.5 - 4.5 mg/dL INTERFACE SYSTEM 12/30/2005 2:40 AM CDT Romie Laughlin MD CHEMISTRY ORDERABLES Final R esult Performing Organization Address [place]/[facility] Phone Number INTERFACE SYSTEM Refer to clinic/hospital department * MAGNESIUM LEVEL (12/30/2005 2:40 AM CDT) MAGNESIUM 2.1 1.5 - 2.5 mg/dL INTERFACE SYSTEM 12/30/2005 2:40 AM CDT Romie Laughlin MD CHEMISTRY ORDERABLES Final R esult Performing Organization Address [facility] Phone Number INTERFACE SYSTEM Refer to clinic/hospital department * CALCIUM IONIZED (12/30/2005 2:40 AM CDT) CALCIUM IONIZED 4.84 4.76 - 5.16 mg/dL INTERFACE SYSTEM 12/30/2005 2:40 AM CDT Romie Laughlin MD CHEMISTRY ORDERABLES Final R esult Performing Organization Address [facility] Phone Number INTERFACE SYSTEM Refer to clinic/hospital department * (ABNORMAL) BASIC METABOLIC PANEL (12/30/2005 2:40 AM CDT) GLUCOSE 87 65 - 99 mg/dL INTERFACE SYSTEM CREATININE 0.9 0.5 - 1.3 mg/dL INTERFACE SYSTEM CALCIUM 7.8(L) 8.4 - 10.2 mg/dL INTERFACE SYSTEM BUN 24(H) 6 - 20 mg/dL INTERFACE SYSTEM SODIUM 138 135 - 145 mmol/L INTERFACE SYSTEM POTASSIUM 4.1 3.5 - 4.9 mmol/L INTERFACE SYSTEM CHLORIDE 104 96 - 108 mmol/L INTERFACE SYSTEM CO2 28 22 - 30 mmol/L INTERFACE SYSTEM 12/30/2005 2:40 AM CDT Romie Laughlin MD CHEMISTRY ORDERABLES Final R esult Performing Organization Address [place]/[facility] Phone Number INTERFACE SYSTEM Refer to clinic/hospital department * POC GLUCOSE (12/30/2005 12:03 AM CDT) GLUCOSE POC 81 65 - 109 mg/dL INTERFACE SYSTEM 12/30/2005 12:0 3 AM CDT us Wicho Gomez MD POINT OF CARE TESTING Final R esult Performing Organization Address [facility] Phone Number INTERFACE SYSTEM Refer to clinic/hospital department * (ABNORMAL) PTT (12/29/2005 6:40 PM CDT) PTT 63.5(H) 24.4 - 36.4 Seconds INTERFACE SYSTEM Comment: PTT Therapeutic Range: Heparin Level ? PTT (seconds) <0.10 units/mL ? <53 0.10 - 0.30 units/mL ? 53 - 67 0.30 - 0.70 units/mL* ?67 - 95* 0.70 - 1.00 units/mL ?95 - 116 *corresponds to therapeutic range for unfractionated heparin ?? 12/29/2005 6:40 PM CDT Romie Laughlin MD HEMATOLOGY ORDERABLES Final Result Performing Organization Address [facility] Number INTERFACE SYSTEM Refer to clinic/hospital department * POC GLUCOSE (12/29/2005 6:30 PM CDT) GLUCOSE POC 92 65 - 109 mg/dL INTERFACE SYSTEM 12/29/2005 6:30 PM CDT us Wicho Gomez MD POINT OF CARE TESTING Final R esult Performing Organization Address [facility] Phone Number INTERFACE SYSTEM Refer to clinic/hospital department * PTT (12/29/2005 4:22 PM CDT) PTT 31.0 24.4 - 36.4 Seconds INTERFACE SYSTEM Comment: PTT Therapeutic Range: Heparin Level ? PTT (seconds) <0.10 units/mL ? <53 0.10 - 0.30 units/mL ? 53 - 67 0.30 - 0.70 units/mL* ?67 - 95* 0.70 - 1.00 units/mL ?95 - 116 *corresponds to therapeutic range for unfractionated heparin ?? 12/29/2005 4:22 PM CDT Romie Laughlin MD HEMATOLOGY ORDERABLES Final Result Performing Organization Address [facility] Phone Number INTERFACE SYSTEM Refer to clinic/hospital department * (ABNORMAL) PTT (12/29/2005 1:00 PM CDT) PTT >150.0(AA ) 24.4 - 36.4 Seconds INTERFACE SYSTEM Comment: PTT Therapeutic Range: Heparin Level ? PTT (seconds) <0.10 units/mL ? <53 0.10 - 0.30 units/mL ? 53 - 67 0.30 - 0.70 units/mL* ?67 - 95* 0.70 - 1.00 units/mL ?95 - 116 *corresponds to therapeutic range for unfractionated heparin ?? Verified by repeat analysis. Results called to Sarika at 12/29/2005 2:52 PM and read back verified. 12/29/2005 1:00 PM CDT Romie Laughlin MD HEMATOLOGY ORDERABLES Final Result Performing Organization Address [facility] Phone Number INTERFACE SYSTEM Refer to clinic/hospital department * (ABNORMAL) PTT (12/29/2005 3:40 AM CDT) PTT 73.4(H) 24.4 - 36.4 Seconds INTERFACE SYSTEM Comment: PTT Therapeutic Range: Heparin Level ? PTT (seconds) <0.10 units/mL ? <53 0.10 - 0.30 units/mL ? 53 - 67 0.30 - 0.70 units/mL* ?67 - 95* 0.70 - 1.00 units/mL ?95 - 116 *corresponds to therapeutic range for unfractionated heparin ?? 12/29/2005 3:40 AM CDT Harshad Heller MD HEMATOLOGY ORDERABLES Final Res ult Performing Organization Address [facility] Co de Phone Number INTERFACE SYSTEM Refer to clinic/hospital department * (ABNORMAL) CBC WITH DIFFERENTIAL (12/29/2005 3:40 AM CDT) NEUTROPHIL ABSOLUTE 8.18(H) 1.90 - 7.00 K/uL INTERFACE SYSTEM LYMPHOCYTE ABSOLUTE 0.85 0.70 - 4.50 K/uL INTERFACE SYSTEM MONOCYTE ABSOLUTE 0.28 0.10 - 1.30 K/uL INTERFACE SYSTEM EOSINOPHIL ABSOLUTE 0.00 0.00 - 0.70 K/uL INTERFACE SYSTEM BASOPHILS ABSOLUTE 0.00 0.00 - 0.20 K/uL INTERFACE SYSTEM NEUTROPHILS, SEG 78(H) 45 - 70 % INT ERFACE SYSTEM BANDS 9(H) 0 - 5 % INTERFACE SYSTEM LYMPHOCYTES 9(L) 16 - 45 % INTERFAC E SYSTEM MONOCYTES 3 3 - 13 % INTERFACE SYSTEM EOSINOPHILS 0 0 - 7 % INTERFAC E SYSTEM BASOPHILS 0 0 - 2 % INTERFACE SYSTEM METAMYELOCYTE 1(H) <=0 % INTERF CINDY SYSTEM PLATELET EST. Consistent w/ count Normal INTERFACE SYSTEM ANISOCYTOSIS Slight INTERFA CE SYSTEM POIKILOCYTES Slight INTERFA CE SYSTEM POLYCHROMASIA Slight INTERF CINDY SYSTEM OVALOCYTES Slight INTERFACE SYSTEM 12/29/2005 3:40 AM CDT us Harshad Heller MD HEMATOLOGY ORDERABLES Final Res ult Performing Organization Address [facility] Phone Number INTERFACE SYSTEM Refer to clinic/hospital department * (ABNORMAL) CBC WITH DIFFERENTIAL (12/29/2005 3:40 AM CDT) WBC 9.4 4.0 - 9.8 K/uL INTERFACE SYSTEM RBC 3.59(L) 4.50 - 5.40 M/uL INTERFACE SYSTEM HEMOGLOBIN 10.9(L) 13.6 - 16.5 g/dL INTERFACE SYSTEM HEMATOCRIT 33.3(L) 40.0 - 48.0 % INTERFACE SYSTEM MCV 92.8 82.0 - 99.0 fL INTERFACE SYSTEM MCH 30.4 27.2 - 32.6 pg INTERFACE SYSTEM MCHC 32.7 31.5 - 35.5 % INTERFACE SYSTEM RDW 15.3(H) 11.5 - 14.5 % INTERFACE SYSTEM RDW-STDEV 51.8(H) 37.1 - 48.7 fL INTERFACE SYSTEM PLATELETS 375(H) 140 - 350 K/uL INTERFACE SYSTEM MPV 9.1(L) 9.3 - 12.4 fL INTERFACE SYSTEM 12/29/2005 3:40 AM CDT us Harshad Heller MD HEMATOLOGY ORDERABLES Final Res ult Performing Organization Address [facility] Phone Number INTERFACE SYSTEM Refer to clinic/hospital department * (ABNORMAL) DIGOXIN LEVEL (12/29/2005 3:40 AM CDT) DIGOXIN LEVEL 0.3(L) 0.8 - 2.0 ng/mL INTERFACE SYSTEM Comment:Digoxin Toxic Level = >2.0 ng/mL 12/29/2005 3:40 AM CDT Harshad Heller MD CHEMISTRY ORDERABLES Final Resu lt Performing Organization Address [facility] Phone Number INTERFACE SYSTEM Refer to clinic/hospital department * PHOSPHORUS (12/29/2005 3:40 AM CDT) PHOSPHORUS 3.9 2.5 - 4.5 mg/dL INTERFACE SYSTEM 12/29/2005 3:40 AM CDT Harshad Heller MD CHEMISTRY ORDERABLES Final Resu lt Performing Organization Address [facility] Phone Number INTERFACE SYSTEM Refer to clinic/hospital department * MAGNESIUM LEVEL (12/29/2005 3:40 AM CDT) MAGNESIUM 1.7 1.5 - 2.5 mg/dL INTERFACE SYSTEM 12/29/2005 3:40 AM CDT Harshad Heller MD CHEMISTRY ORDERABLES Final Resu lt Performing Organization Address [facility] Phone Number INTERFACE SYSTEM Refer to clinic/hospital department * (ABNORMAL) CALCIUM IONIZED (12/29/2005 3:40 AM CDT) CALCIUM IONIZED 4.56(L) 4.76 - 5.16 mg/dL INTERFACE SYSTEM 12/29/2005 3:40 AM CDT Harshad Heller MD CHEMISTRY ORDERABLES Final Resu lt Performing Organization Address [facility] Phone Number INTERFACE SYSTEM Refer to clinic/hospital department * (ABNORMAL) BASIC METABOLIC PANEL (12/29/2005 3:40 AM CDT) GLUCOSE 88 65 - 99 mg/dL INTERFACE SYSTEM CREATININE 0.9 0.5 - 1.3 mg/dL INTERFACE SYSTEM CALCIUM 8.1(L) 8.4 - 10.2 mg/dL INTERFACE SYSTEM BUN 21(H) 6 - 20 mg/dL INTERFACE SYSTEM SODIUM 136 135 - 145 mmol/L INTERFACE SYSTEM POTASSIUM 4.2 3.5 - 4.9 mmol/L INTERFACE SYSTEM CHLORIDE 101 96 - 108 mmol/L INTERFACE SYSTEM CO2 28 22 - 30 mmol/L INTERFACE SYSTEM 12/29/2005 3:40 AM CDT Harshad Heller MD CHEMISTRY ORDERABLES Final Resu lt Performing Organization Address [facility] Phone Number INTERFACE SYSTEM Refer to clinic/hospital department * POC GLUCOSE (12/29/2005 12:47 AM CDT) COMMENT, GLU POC Notified RN INTERFACE SYSTEM GLUCOSE POC 103 65 - 109 mg/dL INTERFACE SYSTEM 12/29/2005 12:4 7 AM CDT us Wicho Gomez MD POINT OF CARE TESTING Final R esult INTERFACE SYSTEM Refer to clinic/hospital department * (ABNORMAL) PT AND APTT (12/28/2005 10:30 PM CDT) PROTIME 16.9(H) 12.7 - 15.1 Seconds INTERFACE SYSTEM INR 1.3(H) 0.9 - 1.1 INTERFACE SYSTEM Comment: INR Therapeutic Range: Adult: 2.0 - 3.0 for pulmonary embolism or prophylaxis against venous thrombosis or systemic embolization. 2.0 - 3.0 for patients with tissue heart valves. ?? 2.5 - 3.5 for patients with mechanical heart valves or post MD. Pediatric ??(12 years and under): 1.5 - 3.0 Although the target range in children is not well established , INR values of 1.5 - 3.0 are recommended for most patients. Higher values have been used in children with prosthetic cardiac valves and hereditary clotting disorders. (<3 days) therapeutic ranges have not been established. PTT >150.0(AA ) 24.4 - 36.4 Seconds INTERFACE SYSTEM Comment: PTT Therapeutic Range: Heparin Level ? PTT (seconds) <0.10 units/mL ? <53 0.10 - 0.30 units/mL ? 53 - 67 0.30 - 0.70 units/mL* ?67 - 95* 0.70 - 1.00 units/mL ?95 - 116 *corresponds to therapeutic range for unfractionated heparin ?? Verified by repeat analysis. Results called to Chace at 12/28/2005 11:14 PM and read back verified. 12/28/2005 10:3 0 PM CDT us Wicho Gomez MD HEMATOLOGY ORDERABLES Final R esult Performing Organization Address [facility] Phone Number INTERFACE SYSTEM Refer to clinic/hospital department * (ABNORMAL) POC GLUCOSE (12/28/2005 7:14 PM CDT) COMMENT, GLU POC Notified RN INTERFACE SYSTEM GLUCOSE POC 112(H) 65 - 109 mg/dL INTERFACE SYSTEM 12/28/2005 7:14 PM CDT us Wicho Gomez MD POINT OF CARE TESTING Final R esult Performing Organization Address [facility] Phone Number INTERFACE SYSTEM Refer to clinic/hospital department * PTT (12/28/2005 2:45 PM CDT) PTT 28.5 24.4 - 36.4 Seconds INTERFACE SYSTEM Comment: PTT Therapeutic Range: Heparin Level ? PTT (seconds) <0.10 units/mL ? <53 0.10 - 0.30 units/mL ? 53 - 67 0.30 - 0.70 units/mL* ?67 - 95* 0.70 - 1.00 units/mL ?95 - 116 *corresponds to therapeutic range for unfractionated heparin ?? 12/28/2005 2:45 PM CDT Romie Laughlin MD HEMATOLOGY ORDERABLES Final Result Performing Organization Address [facility] Phone Number INTERFACE SYSTEM Refer to clinic/hospital department * (ABNORMAL) POC GLUCOSE (12/28/2005 12:56 PM CDT) GLUCOSE POC 159(H) 65 - 109 mg/dL INTERFACE SYSTEM 12/28/2005 12:5 6 PM CDT us Wicho Gomez MD POINT OF CARE TESTING Final R esult Performing Organization Address [facility] Co de Phone Number INTERFACE SYSTEM Refer to clinic/hospital department * (ABNORMAL) PTT (12/28/2005 7:00 AM CDT) [facility] PTT 95.9(AA) 24.4 - 36.4 Seconds INTERFACE SYSTEM Comment: PTT Therapeutic Range: Heparin Level ? PTT (seconds) <0.10 units/mL ? <53 0.10 - 0.30 units/mL ? 53 - 67 0.30 - 0.70 units/mL* ?67 - 95* 0.70 - 1.00 units/mL ?95 - 116 *corresponds to therapeutic range for unfractionated heparin ?? Attempt made to phone results. PTT COMMENT Results called INTERFACE SYSTEM Comment:Results called to Rolando maxwell at 12/28/2005 12:11 PM and read back verified. 12/28/2005 7:00 AM CDT us Romie Laughlin MD HEMATOLOGY ORDERABLES Final Result Performing Organization Address [facility] de Phone Number INTERFACE SYSTEM Refer to clinic/hospital department * (ABNORMAL) CBC WITH DIFFERENTIAL (12/28/2005 4:00 AM CDT) [facility] NEUTROPHIL ABSOLUTE 3.82 1.90 - 7.00 K/uL INTERFACE SYSTEM LYMPHOCYTE ABSOLUTE 0.54(L) 0.70 - 4.50 K/uL INTERFACE SYSTEM MONOCYTE ABSOLUTE 0.44 0.10 - 1.30 K/uL INTERFACE SYSTEM EOSINOPHIL ABSOLUTE 0.00 0.00 - 0.70 K/uL INTERFACE SYSTEM BASOPHILS ABSOLUTE 0.00 0.00 - 0.20 K/uL INTERFACE SYSTEM NEUTROPHILS, SEG 68 45 - 70 % INT ERFACE SYSTEM BANDS 10(H) 0 - 5 % INTERFACE SYSTEM LYMPHOCYTES 10(L) 16 - 45 % INTERFAC E SYSTEM MONOCYTES 9 3 - 13 % INTERFACE SYSTEM EOSINOPHILS 0 0 - 7 % INTERFAC E SYSTEM BASOPHILS 0 0 - 2 % INTERFACE SYSTEM METAMYELOCYTE 2(H) <=0 % INTERF CINDY SYSTEM ATYPICAL LYMPHOCYTE 1 0 - 5 % INTERFACE SYSTEM PLATELET EST. Consistent w/ count Normal INTERFACE SYSTEM ANISOCYTOSIS Slight INTERFA CE SYSTEM POIKILOCYTES Slight INTERFA CE SYSTEM MICROCYTES Slight INTERFACE SYSTEM HYPOCHROMIA Slight INTERFAC E SYSTEM OVALOCYTES Slight INTERFACE SYSTEM 12/28/2005 4:00 AM CDT us Harshad Heller MD HEMATOLOGY ORDERABLES Final Res ult Performing Organization Address [place]/[facility] Co de Phone Number INTERFACE SYSTEM Refer to clinic/hospital department * (ABNORMAL) CBC WITH DIFFERENTIAL (12/28/2005 4:00 AM CDT) WBC 4.9 4.0 - 9.8 K/uL INTERFACE SYSTEM RBC 3.37(L) 4.50 - 5.40 M/uL INTERFACE SYSTEM HEMOGLOBIN 10.0(L) 13.6 - 16.5 g/dL INTERFACE SYSTEM HEMATOCRIT 31.2(L) 40.0 - 48.0 % INTERFACE SYSTEM MCV 92.6 82.0 - 99.0 fL INTERFACE SYSTEM MCH 29.7 27.2 - 32.6 pg INTERFACE SYSTEM MCHC 32.1 31.5 - 35.5 % INTERFACE SYSTEM RDW 15.2(H) 11.5 - 14.5 % INTERFACE SYSTEM RDW-STDEV 51.2(H) 37.1 - 48.7 fL INTERFACE SYSTEM PLATELETS 312 140 - 350 K/uL INTERFACE SYSTEM MPV 8.9(L) 9.3 - 12.4 fL INTERFACE SYSTEM 12/28/2005 4:00 AM CDT us Harshad Heller MD HEMATOLOGY ORDERABLES Final Res ult Performing Organization Address City/[facility]/ZIP Co de Phone Number INTERFACE SYSTEM Refer to clinic/hospital department * PHOSPHORUS (12/28/2005 4:00 AM CDT) PHOSPHORUS 3.9 2.5 - 4.5 mg/dL INTERFACE SYSTEM 12/28/2005 4:00 AM CDT us Harshad Heller MD CHEMISTRY ORDERABLES Final Resu lt Performing Organization Address [facility] Phone Number INTERFACE SYSTEM Refer to clinic/hospital department * MAGNESIUM LEVEL (12/28/2005 4:00 AM CDT) MAGNESIUM 1.9 1.5 - 2.5 mg/dL INTERFACE SYSTEM 12/28/2005 4:00 AM CDT Harshad Heller MD CHEMISTRY ORDERABLES Final [facility] Performing Organization Address [facility] Phone Number INTERFACE SYSTEM Refer to clinic/hospital department * (ABNORMAL) CALCIUM IONIZED (12/28/2005 4:00 AM CDT) CALCIUM IONIZED 4.56(L) 4.76 - 5.16 mg/dL INTERFACE SYSTEM 12/28/2005 4:00 AM CDT Harshad Heller MD CHEMISTRY ORDERABLES [facility] Performing Organization Address [facility] Phone Number INTERFACE SYSTEM Refer to clinic/hospital department * (ABNORMAL) BASIC METABOLIC PANEL (12/28/2005 4:00 AM CDT) GLUCOSE 119(H) 65 - 99 mg/dL INTERFACE SYSTEM CREATININE 0.9 0.5 - 1.3 mg/dL INTERFACE SYSTEM CALCIUM 7.3(L) 8.4 - 10.2 mg/dL INTERFACE SYSTEM BUN 17 6 - 20 mg/dL INTERFACE SYSTEM SODIUM 134(L) 135 - 145 mmol/L INTERFACE SYSTEM POTASSIUM 3.8 3.5 - 4.9 mmol/L INTERFACE SYSTEM CHLORIDE 101 96 - 108 mmol/L INTERFACE SYSTEM CO2 25 22 - 30 mmol/L INTERFACE SYSTEM 12/28/2005 4:00 AM CDT Harshad Heller MD CHEMISTRY ORDERABLES Final Resu Performing Organization Address [facility] [facility] Phone Number INTERFACE SYSTEM Refer to clinic/hospital department * (ABNORMAL) PTT (12/28/2005 2:00 AM CDT) PTT 67.5(H) 24.4 - 36.4 Seconds INTERFACE SYSTEM Comment: PTT Therapeutic Range: Heparin Level ? PTT (seconds) <0.10 units/mL ? <53 0.10 - 0.30 units/mL ? 53 - 67 0.30 - 0.70 units/mL* ?67 - 95* 0.70 - 1.00 units/mL ?95 - 116 *corresponds to therapeutic range for unfractionated heparin ?? 12/28/2005 2:00 AM CDT us Romie Laughlin MD HEMATOLOGY ORDERABLES Final Result Performing Organization Address [facility] Co de Phone Number INTERFACE SYSTEM Refer to clinic/hospital department * (ABNORMAL) POC GLUCOSE (12/28/2005 12:18 AM CDT) COMMENT, GLU POC Notified RN INTERFACE SYSTEM GLUCOSE POC 136(H) 65 - 109 mg/dL INTERFACE SYSTEM 12/28/2005 12:1 8 AM CDT us Wicho Gomez MD POINT OF CARE TESTING Final R esult Performing Organization Address [facility] de Phone Number INTERFACE SYSTEM Refer to clinic/hospital department * (ABNORMAL) PT AND APTT (12/27/2005 7:31 PM CDT) PROTIME 15.9(H) 12.7 - 15.1 Seconds INTERFACE SYSTEM INR 1.2(H) 0.9 - 1.1 INTERFACE SYSTEM Comment: INR Therapeutic Range: Adult: 2.0 - 3.0 for pulmonary embolism or prophylaxis against venous thrombosis or systemic embolization. 2.0 - 3.0 for patients with tissue heart valves. ?? 2.5 - 3.5 for patients with mechanical heart valves or post MD. Pediatric ??(12 years and under): 1.5 - 3.0 Although the target range in children is not well established , INR values of 1.5 - 3.0 are recommended for most patients. Higher values have been used in children with prosthetic cardiac valves and hereditary clotting disorders. (<3 days) therapeutic ranges have not been established. PTT 107.6(AA) 24.4 - 36.4 Seconds INTERFACE SYSTEM Comment: PTT Therapeutic Range: Heparin Level ? PTT (seconds) <0.10 units/mL ? <53 0.10 - 0.30 units/mL ? 53 - 67 0.30 - 0.70 units/mL* ?67 - 95* 0.70 - 1.00 units/mL ?95 - 116 *corresponds to therapeutic range for unfractionated heparin ?? Results called to Regine at 12/27/2005 8:28 PM and read back verified. 12/27/2005 7:31 PM CDT Wicho Gomez MD HEMATOLOGY ORDERABLES Final R [facility] Performing Organization Address [facility] de Phone Number INTERFACE SYSTEM Refer to clinic/hospital department * (ABNORMAL) POC GLUCOSE (12/27/2005 6:34 PM CDT) GLUCOSE POC 125(H) 65 - 109 mg/dL INTERFACE SYSTEM 12/27/2005 6:34 PM CDT Wicho Gomez MD POINT OF CARE TESTING Final R [facility] Performing Organization Address [facility] de Phone Number INTERFACE SYSTEM Refer to clinic/hospital department * (ABNORMAL) BLOOD GAS ARTERIAL (12/27/2005 5:12 PM CDT) PH ARTERIAL 7.41 7.35 - 7.45 INTERFACE SYSTEM PCO2 ARTERIAL 45 35 - 48 mm Hg INTERFACE SYSTEM PO2 ARTERIAL 71(L) 83 - 108 mm Hg INTERFACE SYSTEM SO2 ABG 96 95 - 99 % INTERFACE SYSTEM FO2HB ABG 95 94 - 98 % INTERFACE SYSTEM HCO3 ARTERIAL 27(H) 22 - 26 mmol/L INTERFACE SYSTEM BASE EXCESS ABG 2.3 -2.0 - 3.0 mmol/L INTERFACE SYSTEM O2 CONC ARTERIAL 28 INTERFACE SYSTEM 12/27/2005 5:12 PM CDT us Romie Laughlin MD ABG ORDERABLES Final Result Performing Organization Address [facility] Phone Number INTERFACE SYSTEM Refer to clinic/hospital department * (ABNORMAL) PTT (12/27/2005 1:21 PM CDT) PTT 84.1(H) 24.4 - 36.4 Seconds INTERFACE SYSTEM Comment: PTT Therapeutic Range: Heparin Level ? PTT (seconds) <0.10 units/mL ? <53 0.10 - 0.30 units/mL ? 53 - 67 0.30 - 0.70 units/mL* ?67 - 95* 0.70 - 1.00 units/mL ?95 - 116 *corresponds to therapeutic range for unfractionated heparin ?? 12/27/2005 1:21 PM CDT us Harhsad Heller MD HEMATOLOGY ORDERABLES Final Res ult Performing Organization Address [facility] Phone Number INTERFACE SYSTEM Refer to clinic/hospital department * (ABNORMAL) POC GLUCOSE (12/27/2005 11:26 AM CDT) GLUCOSE POC 171(H) 65 - 109 mg/dL INTERFACE SYSTEM 12/27/2005 11:2 6 AM CDT us Wicho Gomez MD POINT OF CARE TESTING Final R esult Performing Organization Address [facility] de Phone Number INTERFACE SYSTEM Refer to clinic/hospital department * (ABNORMAL) PTT (12/27/2005 6:58 AM CDT) PTT 71.2(H) 24.4 - 36.4 Seconds INTERFACE SYSTEM Comment: PTT Therapeutic Range: Heparin Level ? PTT (seconds) <0.10 units/mL ? <53 0.10 - 0.30 units/mL ? 53 - 67 0.30 - 0.70 units/mL* ?67 - 95* 0.70 - 1.00 units/mL ?95 - 116 *corresponds to therapeutic range for unfractionated heparin ?? 12/27/2005 6:58 AM CDT Romie Laughlin MD HEMATOLOGY ORDERABLES Final Result Performing Organization Address [facility] de Phone Number INTERFACE SYSTEM Refer to clinic/hospital department * (ABNORMAL) BLOOD GAS VENOUS (12/27/2005 4:06 AM CDT) PH MVBG 7.37 7.32 - 7.43 INTERFAC E SYSTEM PCO2 MVBG 48 38 - 50 mm Hg INTERFACE SYSTEM PO2 MVBG 44(H) 25 - 40 mm Hg INTERFACE SYSTEM SO2 MVBG 83 % INTERFACE SYSTEM FO2HB MVBG 82(L) 94 - 98 % INTERFACE SYSTEM O2 CONC MVBG 35% INTERFA CE SYSTEM 12/27/2005 4:06 AM CDT Romie Laughlin MD ABG ORDERABLES Final Result Performing Organization Address [facility] de Phone Number INTERFACE SYSTEM Refer to clinic/hospital department * (ABNORMAL) CBC WITH DIFFERENTIAL (12/27/2005 4:06 AM CDT) WBC 5.6 4.0 - 9.8 K/uL INTERFACE SYSTEM RBC 3.24(L) 4.50 - 5.40 M/uL INTERFACE SYSTEM HEMOGLOBIN 9.8(L) 13.6 - 16.5 g/dL INTERFACE SYSTEM HEMATOCRIT 30.6(L) 40.0 - 48.0 % INTERFACE SYSTEM MCV 94.4 82.0 - 99.0 fL INTERFACE SYSTEM MCH 30.2 27.2 - 32.6 pg INTERFACE SYSTEM MCHC 32.0 31.5 - 35.5 % INTERFACE SYSTEM RDW 15.4(H) 11.5 - 14.5 % INTERFACE SYSTEM RDW-STDEV 53.3(H) 37.1 - 48.7 fL INTERFACE SYSTEM PLATELETS 347 140 - 350 K/uL INTERFACE SYSTEM MPV 9.4 9.3 - 12.4 fL INTERFACE SYSTEM 12/27/2005 4:06 AM CDT us Romie Laughlin MD HEMATOLOGY ORDERABLES Final Result INTERFACE SYSTEM Refer to clinic/hospital department * (ABNORMAL) TSH (12/27/2005 4:06 AM CDT) TSH 6.34(H) 0.27 - 4.20 uU/mL INTERFACE SYSTEM 12/27/2005 4:06 AM CDT us Romie Laughlin MD CHEMISTRY ORDERABLES Final R esult INTERFACE SYSTEM Refer to clinic/hospital department * (ABNORMAL) PT AND APTT (12/27/2005 4:06 AM CDT) PROTIME 16.7(H) 12.7 - 15.1 Seconds INTERFACE SYSTEM INR 1.2(H) 0.9 - 1.1 INTERFACE SYSTEM Comment: INR Therapeutic Range: Adult: 2.0 - 3.0 for pulmonary embolism or prophylaxis against venous thrombosis or systemic embolization. 2.0 - 3.0 for patients with tissue heart valves. ?? 2.5 - 3.5 for patients with mechanical heart valves or post MD. Pediatric ??(12 years and under): 1.5 - 3.0 Although the target range in children is not well established , INR values of 1.5 - 3.0 are recommended for most patients. Higher values have been used in children with prosthetic cardiac valves and hereditary clotting disorders. (<3 days) therapeutic ranges have not been established. PTT 65.5(H) 24.4 - 36.4 Seconds INTERFACE SYSTEM Comment: PTT Therapeutic Range: Heparin Level ? PTT (seconds) <0.10 units/mL ? <53 0.10 - 0.30 units/mL ? 53 - 67 0.30 - 0.70 units/mL* ?67 - 95* 0.70 - 1.00 units/mL ?95 - 116 *corresponds to therapeutic range for unfractionated heparin ?? 12/27/2005 4:06 AM CDT Romie Laughlin MD HEMATOLOGY ORDERABLES Final Result Performing Organization Address [facility] Phone Number INTERFACE SYSTEM Refer to clinic/hospital department * CALCIUM IONIZED (12/27/2005 4:06 AM CDT) Pathologist [facility] CALCIUM IONIZED 4.96 4.76 - 5.16 mg/dL INTERFACE SYSTEM 12/27/2005 4:06 AM CDT Romie Laughlin MD CHEMISTRY ORDERABLES Final R esult Performing Organization Address [facility] Phone Number INTERFACE SYSTEM Refer to clinic/hospital department * (ABNORMAL) CBC WITH DIFFERENTIAL (12/27/2005 4:00 AM CDT) NEUTROPHIL ABSOLUTE 4.14 1.90 - 7.00 K/uL INTERFACE SYSTEM LYMPHOCYTE ABSOLUTE 0.56(L) 0.70 - 4.50 K/uL INTERFACE SYSTEM MONOCYTE ABSOLUTE 0.73 0.10 - 1.30 K/uL INTERFACE SYSTEM EOSINOPHIL ABSOLUTE 0.00 0.00 - 0.70 K/uL INTERFACE SYSTEM BASOPHILS ABSOLUTE 0.00 0.00 - 0.20 K/uL INTERFACE SYSTEM NEUTROPHILS, SEG 61 45 - 70 % INT ERFACE SYSTEM BANDS 13(H) 0 - 5 % INTERFACE SYSTEM LYMPHOCYTES 9(L) 16 - 45 % INTERFAC E SYSTEM MONOCYTES 13 3 - 13 % INTERFACE SYSTEM EOSINOPHILS 0 0 - 7 % INTERFAC E SYSTEM BASOPHILS 0 0 - 2 % INTERFACE SYSTEM MYELOCYTES 3(H) <=0 % INTERFACE SYSTEM ATYPICAL LYMPHOCYTE 1 0 - 5 % INTERFACE SYSTEM PLATELET EST. Consistent w/ count Normal INTERFACE SYSTEM ANISOCYTOSIS Slight INTERFA CE SYSTEM POIKILOCYTES Slight INTERFA CE SYSTEM MICROCYTES Slight INTERFACE SYSTEM HYPOCHROMIA Slight INTERFAC E SYSTEM OVALOCYTES Slight INTERFACE SYSTEM TEAR DROP CELLS Slight INTE RFACE SYSTEM 12/27/2005 4:00 AM CDT Romie Laughlin MD HEMATOLOGY ORDERABLES Final Result Performing Organization Address [facility] Phone Number INTERFACE SYSTEM Refer to clinic/hospital department * T4 FREE (12/27/2005 4:00 AM CDT) T4 FREE 1.1 0.9 - 1.7 ng/dL INTERFACE SYSTEM 12/27/2005 4:00 AM CDT Romie Laughlin MD CHEMISTRY ORDERABLES Final R esult Performing Organization Address [facility] Phone Number INTERFACE SYSTEM Refer to clinic/hospital department * PREALBUMIN (12/27/2005 4:00 AM CDT) PREALBUMIN 21 20 - 40 mg/dL INTERFACE SYSTEM 12/27/2005 4:00 AM CDT Romie Laughlin MD CHEMISTRY ORDERABLES Final R esult Performing Organization Address [facility] Phone Number INTERFACE SYSTEM Refer to clinic/hospital department * PHOSPHORUS (12/27/2005 4:00 AM CDT) PHOSPHORUS 4.0 2.5 - 4.5 mg/dL INTERFACE SYSTEM 12/27/2005 4:00 AM CDT Romie Laughlin MD CHEMISTRY ORDERABLES Final R esult Performing Organization Address [facility] Phone Number INTERFACE SYSTEM Refer to clinic/hospital department * (ABNORMAL) MAGNESIUM LEVEL (12/27/2005 4:00 AM CDT) MAGNESIUM 1.4(L) 1.5 - 2.5 mg/dL INTERFACE SYSTEM 12/27/2005 4:00 AM CDT Romie Laughlin MD CHEMISTRY ORDERABLES Final R [facility] Performing Organization Address [facility] Phone Number INTERFACE SYSTEM Refer to clinic/hospital department * (ABNORMAL) COMPREHENSIVE METABOLIC PANEL (12/27/2005 4:00 AM CDT) Pathologist [facility] GLUCOSE 124(H) 65 - 99 mg/dL INTERFACE SYSTEM CREATININE 0.9 0.5 - 1.3 mg/dL INTERFACE SYSTEM CALCIUM 7.6(L) 8.4 - 10.2 mg/dL INTERFACE SYSTEM ALKALINE PHOSPHATASE 56 40 - 129 U/L INTERFACE SYSTEM AST 13 12 - 38 U/L INTERFACE SYSTEM Comment:Hemolyzed: Result ma y be falsely elevated. ALT 16 0 - 41 U/L INTERFACE SYSTEM TOTAL PROTEIN 4.7(L) 6.3 - 8.6 g/dL INTERFACE SYSTEM ALBUMIN 1.7(L) 3.4 - 4.8 g/dL INTERFACE SYSTEM BILIRUBIN TOTAL 0.4 0.2 - 1.0 mg/dL INTERFACE SYSTEM BUN 19 6 - 20 mg/dL INTERFACE SYSTEM SODIUM 135 135 - 145 mmol/L INTERFACE SYSTEM POTASSIUM 4.3 3.5 - 4.9 mmol/L INTERFACE SYSTEM Comment:Slight hemolysis pre sent. Result may be falsely elevated. CHLORIDE 102 96 - 108 mmol/L INTERFACE SYSTEM CO2 26 22 - 30 mmol/L INTERFACE SYSTEM 12/27/2005 4:00 AM CDT Romie Laughlin MD CHEMISTRY ORDERABLES Final R ult Performing Organization Address [facility] Phone Number INTERFACE SYSTEM Refer to clinic/hospital department * (ABNORMAL) PTT (12/27/2005 1:00 AM CDT) Pathologist [facility] PTT 85.7(H) 24.4 - 36.4 Seconds INTERFACE SYSTEM Comment: PTT Therapeutic Range: Heparin Level ? PTT (seconds) <0.10 units/mL ? <53 0.10 - 0.30 units/mL ? 53 - 67 0.30 - 0.70 units/mL* ?67 - 95* 0.70 - 1.00 units/mL ?95 - 116 *corresponds to therapeutic range for unfractionated heparin ?? 12/27/2005 1:00 AM CDT Romie Laughlin MD HEMATOLOGY ORDERABLES Final Result Performing Organization Address [facility] de Phone Number INTERFACE SYSTEM Refer to clinic/hospital department * (ABNORMAL) POC GLUCOSE (12/27/2005 12:35 AM CDT) GLUCOSE POC 140(H) 65 - 109 mg/dL INTERFACE SYSTEM 12/27/2005 12:3 5 AM CDT Wicho Gomez MD POINT OF CARE TESTING Final R esult Performing Organization Address [facility] de Phone Number INTERFACE SYSTEM Refer to clinic/hospital department * (ABNORMAL) PTT (12/26/2005 9:10 PM CDT) PTT 79.4(H) 24.4 - 36.4 Seconds INTERFACE SYSTEM Comment: PTT Therapeutic Range: Heparin Level ? PTT (seconds) <0.10 units/mL ? <53 0.10 - 0.30 units/mL ? 53 - 67 0.30 - 0.70 units/mL* ?67 - 95* 0.70 - 1.00 units/mL ?95 - 116 *corresponds to therapeutic range for unfractionated heparin ?? 12/26/2005 9:10 PM CDT Romie Laughlin MD HEMATOLOGY ORDERABLES Final Result Performing Organization Address [facility] Phone Number INTERFACE SYSTEM Refer to clinic/hospital department * POC GLUCOSE (12/26/2005 6:46 PM CDT) GLUCOSE POC 92 65 - 109 mg/dL INTERFACE SYSTEM 12/26/2005 6:46 PM CDT Wicho Gomez MD POINT OF CARE TESTING Final R esult Performing Organization Address [facility] Phone Number INTERFACE SYSTEM Refer to clinic/hospital department * (ABNORMAL) PTT (12/26/2005 1:45 PM CDT) PTT 45.8(H) 24.4 - 36.4 Seconds INTERFACE SYSTEM Comment: PTT Therapeutic Range: Heparin Level ? PTT (seconds) <0.10 units/mL ? <53 0.10 - 0.30 units/mL ? 53 - 67 0.30 - 0.70 units/mL* ?67 - 95* 0.70 - 1.00 units/mL ?95 - 116 *corresponds to therapeutic range for unfractionated heparin ?? 12/26/2005 1:45 PM CDT Romie Laughlin MD HEMATOLOGY ORDERABLES Final Result Performing Organization Address [facility] Phone Number INTERFACE SYSTEM Refer to clinic/hospital department * (ABNORMAL) POC GLUCOSE (12/26/2005 11:56 AM CDT) GLUCOSE POC 120(H) 65 - 109 mg/dL INTERFACE SYSTEM 12/26/2005 11:5 6 AM CDT Wicho Gomez MD POINT OF CARE TESTING Final R esult Performing Organization Address [facility] Phone Number INTERFACE SYSTEM Refer to clinic/hospital department * (ABNORMAL) PTT (12/26/2005 6:40 AM CDT) PTT 49.6(H) 24.4 - 36.4 Seconds INTERFACE SYSTEM Comment: PTT Therapeutic Range: Heparin Level ? PTT (seconds) <0.10 units/mL ? <53 0.10 - 0.30 units/mL ? 53 - 67 0.30 - 0.70 units/mL* ?67 - 95* 0.70 - 1.00 units/mL ?95 - 116 *corresponds to therapeutic range for unfractionated heparin ?? Persistent abnormal result 12/26/2005 6:40 AM CDT us Romie Laughlin MD HEMATOLOGY ORDERABLES Final Result Performing Organization Address [facility] de Phone Number INTERFACE SYSTEM Refer to clinic/hospital department * (ABNORMAL) POC GLUCOSE (12/26/2005 5:50 AM CDT) Pathologist [facility] GLUCOSE POC 126(H) 65 - 109 mg/dL INTERFACE SYSTEM 12/26/2005 5:50 AM CDT us Wicho Gomez MD POINT OF CARE TESTING Final R esult Performing Organization Address [facility] de Phone Number INTERFACE SYSTEM Refer to clinic/hospital department * (ABNORMAL) CBC WITH DIFFERENTIAL (12/26/2005 4:00 AM CDT) NEUTROPHIL ABSOLUTE 3.79 1.90 - 7.00 K/uL INTERFACE SYSTEM LYMPHOCYTE ABSOLUTE 0.53(L) 0.70 - 4.50 K/uL INTERFACE SYSTEM MONOCYTE ABSOLUTE 0.34 0.10 - 1.30 K/uL INTERFACE SYSTEM EOSINOPHIL ABSOLUTE 0.00 0.00 - 0.70 K/uL INTERFACE SYSTEM BASOPHILS ABSOLUTE 0.00 0.00 - 0.20 K/uL INTERFACE SYSTEM NEUTROPHILS, SEG 71(H) 45 - 70 % INT ERFACE SYSTEM BANDS 8(H) 0 - 5 % INTERFACE SYSTEM LYMPHOCYTES 11(L) 16 - 45 % INTERFAC E SYSTEM MONOCYTES 7 3 - 13 % INTERFACE SYSTEM EOSINOPHILS 0 0 - 7 % INTERFAC E SYSTEM BASOPHILS 0 0 - 2 % INTERFACE SYSTEM METAMYELOCYTE 1(H) <=0 % INTERF CINDY SYSTEM MYELOCYTES 2(H) <=0 % INTERFACE SYSTEM PLATELET EST. Consistent w/ count Normal INTERFACE SYSTEM ANISOCYTOSIS Slight INTERFA CE SYSTEM POIKILOCYTES Slight INTERFA CE SYSTEM POLYCHROMASIA Slight INTERF CINDY SYSTEM REVIEWED ON SMEAR Plt OK by Smear Rev. INTERFACE SYSTEM 12/26/2005 4:00 AM CDT Romie Laughlin MD HEMATOLOGY ORDERABLES Final Result Performing Organization Address [facility] Co de Phone Number INTERFACE SYSTEM Refer to clinic/hospital department * (ABNORMAL) CBC WITH DIFFERENTIAL (12/26/2005 4:00 AM CDT) WBC 4.8 4.0 - 9.8 K/uL INTERFACE SYSTEM RBC 3.15(L) 4.50 - 5.40 M/uL INTERFACE SYSTEM HEMOGLOBIN 9.5(L) 13.6 - 16.5 g/dL INTERFACE SYSTEM HEMATOCRIT 29.7(L) 40.0 - 48.0 % INTERFACE SYSTEM MCV 94.3 82.0 - 99.0 fL INTERFACE SYSTEM MCH 30.2 27.2 - 32.6 pg INTERFACE SYSTEM MCHC 32.0 31.5 - 35.5 % INTERFACE SYSTEM RDW 15.5(H) 11.5 - 14.5 % INTERFACE SYSTEM RDW-STDEV 53.2(H) 37.1 - 48.7 fL INTERFACE SYSTEM PLATELETS 300 140 - 350 K/uL INTERFACE SYSTEM MPV 9.6 9.3 - 12.4 fL INTERFACE SYSTEM 12/26/2005 4:00 AM CDT Romie Laughlin MD HEMATOLOGY ORDERABLES Final Result Performing Organization Address [facility] Co de Phone Number INTERFACE SYSTEM Refer to clinic/hospital department * CALCIUM IONIZED (12/26/2005 4:00 AM CDT) CALCIUM IONIZED 4.76 4.76 - 5.16 mg/dL INTERFACE SYSTEM 12/26/2005 4:00 AM CDT Romie Laughlin MD CHEMISTRY ORDERABLES Final R esult Performing Organization Address [facility] Phone Number INTERFACE SYSTEM Refer to clinic/hospital department * PHOSPHORUS (12/26/2005 4:00 AM CDT) PHOSPHORUS 3.7 2.5 - 4.5 mg/dL INTERFACE SYSTEM 12/26/2005 4:00 AM CDT Romie Laughlin MD CHEMISTRY ORDERABLES Final R esult Performing Organization Address [facility] Phone Number INTERFACE SYSTEM Refer to clinic/hospital department * MAGNESIUM LEVEL (12/26/2005 4:00 AM CDT) MAGNESIUM 1.7 1.5 - 2.5 mg/dL INTERFACE SYSTEM 12/26/2005 4:00 AM CDT Romie Laughlin MD CHEMISTRY ORDERABLES Final R [facility] Performing Organization Address [facility] Phone Number INTERFACE SYSTEM Refer to clinic/hospital department * (ABNORMAL) BASIC METABOLIC PANEL (12/26/2005 4:00 AM CDT) GLUCOSE 100(H) 65 - 99 mg/dL INTERFACE SYSTEM CREATININE 1.0 0.5 - 1.3 mg/dL INTERFACE SYSTEM CALCIUM 7.7(L) 8.4 - 10.2 mg/dL INTERFACE SYSTEM BUN 25(H) 6 - 20 mg/dL INTERFACE SYSTEM SODIUM 134(L) 135 - 145 mmol/L INTERFACE SYSTEM POTASSIUM 4.2 3.5 - 4.9 mmol/L INTERFACE SYSTEM CHLORIDE 102 96 - 108 mmol/L INTERFACE SYSTEM CO2 26 22 - 30 mmol/L INTERFACE SYSTEM 12/26/2005 4:00 AM CDT Romie Laughlin MD CHEMISTRY ORDERABLES Final R esult Performing Organization Address [facility] Phone Number INTERFACE SYSTEM Refer to clinic/hospital department * (ABNORMAL) PTT (12/26/2005 1:35 AM CDT) PTT 54.6(H) 24.4 - 36.4 Seconds INTERFACE SYSTEM Comment: PTT Therapeutic Range: Heparin Level ? PTT (seconds) <0.10 units/mL ? <53 0.10 - 0.30 units/mL ? 53 - 67 0.30 - 0.70 units/mL* ?67 - 95* 0.70 - 1.00 units/mL ?95 - 116 *corresponds to therapeutic range for unfractionated heparin ?? 12/26/2005 1:35 AM CDT Romie Laughlin MD HEMATOLOGY ORDERABLES Final Result Performing Organization Address [facility] Phone Number INTERFACE SYSTEM Refer to clinic/hospital department * (ABNORMAL) POC GLUCOSE (12/26/2005 12:19 AM CDT) GLUCOSE POC 140(H) 65 - 109 mg/dL INTERFACE SYSTEM 12/26/2005 12:1 9 AM CDT Wicho Gomez MD POINT OF CARE TESTING Final R esult Performing Organization Address [facility] de Phone Number INTERFACE SYSTEM Refer to clinic/hospital department * (ABNORMAL) POC GLUCOSE (12/25/2005 6:05 PM CDT) GLUCOSE POC 150(H) 65 - 109 mg/dL INTERFACE SYSTEM 12/25/2005 6:05 PM CDT Wicho Gomez MD POINT OF CARE TESTING Final R esult Performing Organization Address [facility] de Phone Number INTERFACE SYSTEM Refer to clinic/hospital department * PTT (12/25/2005 1:00 PM CDT) PTT 28.2 24.4 - 36.4 Seconds INTERFACE SYSTEM Comment: PTT Therapeutic Range: Heparin Level ? PTT (seconds) <0.10 units/mL ? <53 0.10 - 0.30 units/mL ? 53 - 67 0.30 - 0.70 units/mL* ?67 - 95* 0.70 - 1.00 units/mL ?95 - 116 *corresponds to therapeutic range for unfractionated heparin ?? 12/25/2005 1:00 PM CDT us Romie Laughlin MD HEMATOLOGY ORDERABLES Final Result Performing Organization Address [facility] de Phone Number INTERFACE SYSTEM Refer to clinic/hospital department * (ABNORMAL) POC GLUCOSE (12/25/2005 6:13 AM CDT) GLUCOSE POC 166(H) 65 - 109 mg/dL INTERFACE SYSTEM 12/25/2005 6:13 AM CDT us Wicho Gomez MD POINT OF CARE TESTING Final R esult Performing Organization Address [facility] de Phone Number INTERFACE SYSTEM Refer to clinic/hospital department * (ABNORMAL) PTT (12/25/2005 6:05 AM CDT) PTT 92.1(H) 24.4 - 36.4 Seconds INTERFACE SYSTEM Comment: PTT Therapeutic Range: Heparin Level ? PTT (seconds) <0.10 units/mL ? <53 0.10 - 0.30 units/mL ? 53 - 67 0.30 - 0.70 units/mL* ?67 - 95* 0.70 - 1.00 units/mL ?95 - 116 *corresponds to therapeutic range for unfractionated heparin ?? 12/25/2005 6:05 AM CDT Romie Laughlin MD HEMATOLOGY ORDERABLES Final Result Performing Organization Address [facility] de Phone Number INTERFACE SYSTEM Refer to clinic/hospital department * (ABNORMAL) CBC WITH DIFFERENTIAL (12/25/2005 3:10 AM CDT) NEUTROPHIL ABSOLUTE 2.92 1.90 - 7.00 K/uL INTERFACE SYSTEM LYMPHOCYTE ABSOLUTE 0.56(L) 0.70 - 4.50 K/uL INTERFACE SYSTEM MONOCYTE ABSOLUTE 0.22 0.10 - 1.30 K/uL INTERFACE SYSTEM EOSINOPHIL ABSOLUTE 0.00 0.00 - 0.70 K/uL INTERFACE SYSTEM BASOPHILS ABSOLUTE 0.00 0.00 - 0.20 K/uL INTERFACE SYSTEM NEUTROPHILS, SEG 75(H) 45 - 70 % INT ERFACE SYSTEM BANDS 4 0 - 5 % INTERFACE SYSTEM LYMPHOCYTES 14(L) 16 - 45 % INTERFAC E SYSTEM MONOCYTES 6 3 - 13 % INTERFACE SYSTEM EOSINOPHILS 0 0 - 7 % INTERFAC E SYSTEM BASOPHILS 0 0 - 2 % INTERFACE SYSTEM ATYPICAL LYMPHOCYTE 1 0 - 5 % INTERFACE SYSTEM PLATELET EST. Consistent w/ count Normal INTERFACE SYSTEM ANISOCYTOSIS Slight INTERFA CE SYSTEM POIKILOCYTES Slight INTERFA CE SYSTEM MICROCYTES Slight INTERFACE SYSTEM POLYCHROMASIA Slight INTERF CINDY SYSTEM BASOPHILIC STIPPLING Slight INTERFACE SYSTEM HYPOCHROMIA Slight INTERFAC E SYSTEM TOXIC GRANULATION Slight IN TERFACE SYSTEM VACUOLATED NEUTROPHILS Present INTERFACE SYSTEM 12/25/2005 3:10 AM CDT Romie Laughlin MD HEMATOLOGY ORDERABLES Final Result Performing Organization Address [facility] Phone Number INTERFACE SYSTEM Refer to clinic/hospital department * (ABNORMAL) CBC WITH DIFFERENTIAL (12/25/2005 3:10 AM CDT) WBC 3.7(L) 4.0 - 9.8 K/uL INTERFACE SYSTEM RBC 2.80(L) 4.50 - 5.40 M/uL INTERFACE SYSTEM HEMOGLOBIN 8.6(L) 13.6 - 16.5 g/dL INTERFACE SYSTEM HEMATOCRIT 26.3(L) 40.0 - 48.0 % INTERFACE SYSTEM MCV 93.9 82.0 - 99.0 fL INTERFACE SYSTEM MCH 30.7 27.2 - 32.6 pg INTERFACE SYSTEM MCHC 32.7 31.5 - 35.5 % INTERFACE SYSTEM RDW 15.3(H) 11.5 - 14.5 % INTERFACE SYSTEM RDW-STDEV 53.1(H) 37.1 - 48.7 fL INTERFACE SYSTEM PLATELETS 239 140 - 350 K/uL INTERFACE SYSTEM MPV 9.5 9.3 - 12.4 fL INTERFACE SYSTEM 12/25/2005 3:10 AM CDT Romie Laughlin MD HEMATOLOGY ORDERABLES Final Result Performing Organization Address [facility] Phone Number INTERFACE SYSTEM Refer to clinic/hospital department * PHOSPHORUS (12/25/2005 3:10 AM CDT) PHOSPHORUS 3.3 2.5 - 4.5 mg/dL INTERFACE SYSTEM 12/25/2005 3:10 AM CDT Romie Laughlin MD CHEMISTRY ORDERABLES Final R esult Performing Organization Address [facility] Phone Number INTERFACE SYSTEM Refer to clinic/hospital department * MAGNESIUM LEVEL (12/25/2005 3:10 AM CDT) MAGNESIUM 1.7 1.5 - 2.5 mg/dL INTERFACE SYSTEM 12/25/2005 3:10 AM CDT Romie Laughlin MD CHEMISTRY ORDERABLES Final R esult Performing Organization Address City/[facility] Phone Number INTERFACE SYSTEM Refer to clinic/hospital department * CALCIUM IONIZED (12/25/2005 3:10 AM CDT) CALCIUM IONIZED 4.76 4.76 - 5.16 mg/dL INTERFACE SYSTEM 12/25/2005 3:10 AM CDT Romie Laughlin MD CHEMISTRY ORDERABLES Final R esult Performing Organization Address [facility] Phone Number INTERFACE SYSTEM Refer to clinic/hospital department * (ABNORMAL) BASIC METABOLIC PANEL (12/25/2005 3:10 AM CDT) GLUCOSE 127(H) 65 - 99 mg/dL INTERFACE SYSTEM CREATININE 1.3 0.5 - 1.3 mg/dL INTERFACE SYSTEM CALCIUM 7.4(L) 8.4 - 10.2 mg/dL INTERFACE SYSTEM BUN 31(H) 6 - 20 mg/dL INTERFACE SYSTEM SODIUM 135 135 - 145 mmol/L INTERFACE SYSTEM POTASSIUM 3.9 3.5 - 4.9 mmol/L INTERFACE SYSTEM CHLORIDE 104 96 - 108 mmol/L INTERFACE SYSTEM CO2 24 22 - 30 mmol/L INTERFACE SYSTEM 12/25/2005 3:10 AM CDT Romie Laughlin MD CHEMISTRY ORDERABLES Final R esult Performing Organization Address [facility] Phone Number INTERFACE SYSTEM Refer to clinic/hospital department * (ABNORMAL) PTT (12/25/2005 1:00 AM CDT) PTT 92.3(H) 24.4 - 36.4 Seconds INTERFACE SYSTEM Comment: PTT Therapeutic Range: Heparin Level ? PTT (seconds) <0.10 units/mL ? <53 0.10 - 0.30 units/mL ? 53 - 67 0.30 - 0.70 units/mL* ?67 - 95* 0.70 - 1.00 units/mL ?95 - 116 *corresponds to therapeutic range for unfractionated heparin ?? 12/25/2005 1:00 AM CDT Romie Laughlin MD HEMATOLOGY ORDERABLES Final Result Performing Organization Address [facility] Phone Number INTERFACE SYSTEM Refer to clinic/hospital department * POC GLUCOSE (12/24/2005 11:33 PM CDT) GLUCOSE POC 87 65 - 109 mg/dL INTERFACE SYSTEM 12/24/2005 11:3 3 PM CDT us Wicho Gomez MD POINT OF CARE TESTING Final R esult Performing Organization Address [facility] Phone Number INTERFACE SYSTEM Refer to clinic/hospital department * (ABNORMAL) POC GLUCOSE (12/24/2005 6:32 PM CDT) GLUCOSE POC 154(H) 65 - 109 mg/dL INTERFACE SYSTEM 12/24/2005 6:32 PM CDT us Wicho Gomez MD POINT OF CARE TESTING Final R esult Performing Organization Address [facility] Phone Number INTERFACE SYSTEM Refer to clinic/hospital department * (ABNORMAL) PTT (12/24/2005 6:30 PM CDT) PTT 99.5(AA) 24.4 - 36.4 Seconds INTERFACE SYSTEM Comment: PTT Therapeutic Range: Heparin Level ? PTT (seconds) <0.10 units/mL ? <53 0.10 - 0.30 units/mL ? 53 - 67 0.30 - 0.70 units/mL* ?67 - 95* 0.70 - 1.00 units/mL ?95 - 116 *corresponds to therapeutic range for unfractionated heparin ?? Verified by repeat analysis. Results called to Neda ??at 12/24/2005 7:27 PM and read back verified. 12/24/2005 6:30 PM CDT Romie Laughlin MD HEMATOLOGY ORDERABLES Final Result Performing Organization Address [facility] Phone Number INTERFACE SYSTEM Refer to clinic/hospital department * EOSINOPHIL SMEAR (12/24/2005 1:13 PM CDT) EOSINOPHIL SMEAR SOURCE Urine INTERFACE SYSTEM EOSINOPHIL SMEAR No Eos Seen No Eos Seen INTERFACE SYSTEM 12/24/2005 1:13 PM CDT Romie Laughlin MD BODY FLUIDS AND STOOLS COM F inal Result Performing Organization Address [facility] Phone Number INTERFACE SYSTEM Refer to clinic/hospital department * OSMOLALITY, URINE (12/24/2005 1:13 PM CDT) OSMOLALITY, URINE 519 50 - 1200 mOsml/kg INTERFACE SYSTEM 12/24/2005 1:13 PM CDT Romie Laughlin MD URINE ORDERABLES Final Resul t Performing Organization Address [facility] Number INTERFACE SYSTEM Refer to clinic/hospital department * CREATININE, RANDOM URINE (12/24/2005 1:13 PM CDT) Creatinine, Urine 67.8 36.0 - 130.0 mg/dL INTERFACE SYSTEM Comment:Reference Range vari es with fluid intake and diet. 12/24/2005 1:13 PM CDT Romie Laughlin MD URINE ORDERABLES Final Resul t Performing Organization Address [facility] INTERFACE SYSTEM Refer to clinic/hospital department * (ABNORMAL) URINALYSIS (12/24/2005 1:13 PM CDT) COLOR UA Yellow INTERFACE SYSTEM CLARITY UA Cloudy(A) Clear INTERFACE SYSTEM SPECIFIC GRAVITY UA 1.015 1.001 - 1.035 INTERFACE SYSTEM PH UA 5.5 5.0 - 8.0 INTERFACE SYSTEM LEUKOCYTE ESTERASE UA Negative Negative INTERFACE SYSTEM NITRITE UA Negative Negative INTERFACE SYSTEM PROTEIN UA 1+(A) Negative INTERFACE SYSTEM GLUCOSE UA Negative Negative INTERFACE SYSTEM KETONES UA Negative Negative INTERFACE SYSTEM UROBILINOGEN UA <1 <=1 mg/dL INTE RFACE SYSTEM BILIRUBIN UA Negative Negative INTERFA CE SYSTEM BLOOD UA Negative Negative INTERFACE SYSTEM WBC UA 13(H) 0 - 3 /HPF INTERFACE SYSTEM RBC UA <1 0 - 3 /HPF INTERFACE SYSTEM BACTERIA UA 1+(A) None Seen /HPF INTERFACE SYSTEM TRANSITIONAL EPI 0-2 /HPF INT ERFACE SYSTEM HYALINE CAST 5(H) 0 - 2 /LPF INTERF CINDY SYSTEM GRANULAR CAST 7(H) <=0 /LPF INTERF CINDY SYSTEM AMORPHOUS CRYSTAL Rare /HPF INTERFACE SYSTEM 12/24/2005 1:13 PM CDT Romie Laughlin MD URINE ORDERABLES Final Resul t Performing Organization Address [facility] de Phone Number INTERFACE SYSTEM Refer to clinic/hospital department * POC GLUCOSE (12/24/2005 12:43 PM CDT) GLUCOSE POC 103 65 - 109 mg/dL INTERFACE SYSTEM 12/24/2005 12:4 3 PM CDT Wicho Gomez MD POINT OF CARE TESTING Final R esult Performing Organization Address [facility] de Phone Number INTERFACE SYSTEM Refer to clinic/hospital department * (ABNORMAL) PTT (12/24/2005 12:30 PM CDT) PTT 54.7(H) 24.4 - 36.4 Seconds INTERFACE SYSTEM Comment: PTT Therapeutic Range: Heparin Level ? PTT (seconds) <0.10 units/mL ? <53 0.10 - 0.30 units/mL ? 53 - 67 0.30 - 0.70 units/mL* ?67 - 95* 0.70 - 1.00 units/mL ?95 - 116 *corresponds to therapeutic range for unfractionated heparin ?? 12/24/2005 12:3 0 PM CDT Romie Laughlin MD HEMATOLOGY ORDERABLES Final Result Performing Organization Address [facility] de Phone Number INTERFACE SYSTEM Refer to clinic/hospital department * (ABNORMAL) POC GLUCOSE (12/24/2005 6:05 AM CDT) GLUCOSE POC 139(H) 65 - 109 mg/dL INTERFACE SYSTEM 12/24/2005 6:05 AM CDT us Wicho Gomez MD POINT OF CARE TESTING Final R esult Performing Organization Address [facility] Phone Number INTERFACE SYSTEM Refer to clinic/hospital department * (ABNORMAL) PTT (12/24/2005 6:00 AM CDT) PTT 71.6(H) 24.4 - 36.4 Seconds INTERFACE SYSTEM Comment: PTT Therapeutic Range: Heparin Level ? PTT (seconds) <0.10 units/mL ? <53 0.10 - 0.30 units/mL ? 53 - 67 0.30 - 0.70 units/mL* ?67 - 95* 0.70 - 1.00 units/mL ?95 - 116 *corresponds to therapeutic range for unfractionated heparin ?? 12/24/2005 6:00 AM CDT us Romie Laughlin MD HEMATOLOGY ORDERABLES Final Result Performing Organization Address [facility] Phone Number INTERFACE SYSTEM Refer to clinic/hospital department * (ABNORMAL) CBC WITH DIFFERENTIAL (12/24/2005 1:34 AM CDT) NEUTROPHIL ABSOLUTE 4.68 1.90 - 7.00 K/uL INTERFACE SYSTEM LYMPHOCYTE ABSOLUTE 0.72 0.70 - 4.50 K/uL INTERFACE SYSTEM MONOCYTE ABSOLUTE 0.54 0.10 - 1.30 K/uL INTERFACE SYSTEM EOSINOPHIL ABSOLUTE 0.00 0.00 - 0.70 K/uL INTERFACE SYSTEM BASOPHILS ABSOLUTE 0.00 0.00 - 0.20 K/uL INTERFACE SYSTEM NEUTROPHILS, SEG 67 45 - 70 % INT ERFACE SYSTEM BANDS 11(H) 0 - 5 % INTERFACE SYSTEM LYMPHOCYTES 12(L) 16 - 45 % INTERFAC E SYSTEM MONOCYTES 9 3 - 13 % INTERFACE SYSTEM EOSINOPHILS 0 0 - 7 % INTERFAC E SYSTEM BASOPHILS 0 0 - 2 % INTERFACE SYSTEM METAMYELOCYTE 1(H) <=0 % INTERF CINDY SYSTEM PLATELET EST. Consistent w/ count Normal INTERFACE SYSTEM ANISOCYTOSIS Slight INTERFA CE SYSTEM POIKILOCYTES Slight INTERFA CE SYSTEM JOY CELLS Slight INTERFACE SYSTEM 12/24/2005 1:34 AM CDT Romie Laughlin MD HEMATOLOGY ORDERABLES Final Result Performing Organization Address City/[facility] Co de Phone Number INTERFACE SYSTEM Refer to clinic/hospital department * (ABNORMAL) CBC WITH DIFFERENTIAL (12/24/2005 1:34 AM CDT) WBC 6.0 4.0 - 9.8 K/uL INTERFACE SYSTEM RBC 3.24(L) 4.50 - 5.40 M/uL INTERFACE SYSTEM HEMOGLOBIN 9.7(L) 13.6 - 16.5 g/dL INTERFACE SYSTEM HEMATOCRIT 30.1(L) 40.0 - 48.0 % INTERFACE SYSTEM MCV 92.9 82.0 - 99.0 fL INTERFACE SYSTEM MCH 29.9 27.2 - 32.6 pg INTERFACE SYSTEM MCHC 32.2 31.5 - 35.5 % INTERFACE SYSTEM RDW 15.2(H) 11.5 - 14.5 % INTERFACE SYSTEM RDW-STDEV 52.0(H) 37.1 - 48.7 fL INTERFACE SYSTEM PLATELETS 229 140 - 350 K/uL INTERFACE SYSTEM MPV 9.5 9.3 - 12.4 fL INTERFACE SYSTEM 12/24/2005 1:34 AM CDT Romie Laughlin MD HEMATOLOGY ORDERABLES Final Result INTERFACE SYSTEM Refer to clinic/hospital department * PHOSPHORUS (12/24/2005 1:34 AM CDT) PHOSPHORUS 3.5 2.5 - 4.5 mg/dL INTERFACE SYSTEM 12/24/2005 1:34 AM CDT Romie Laughlin MD CHEMISTRY ORDERABLES Final R esult Performing Organization Address [facility] Phone Number INTERFACE SYSTEM Refer to clinic/hospital department * (ABNORMAL) CALCIUM IONIZED (12/24/2005 1:34 AM CDT) CALCIUM IONIZED 4.68(L) 4.76 - 5.16 mg/dL INTERFACE SYSTEM 12/24/2005 1:34 AM CDT Romie Laughlin MD CHEMISTRY ORDERABLES Final R esult Performing Organization Address [facility] Phone Number INTERFACE SYSTEM Refer to clinic/hospital department * MAGNESIUM LEVEL (12/24/2005 1:34 AM CDT) MAGNESIUM 1.8 1.5 - 2.5 mg/dL INTERFACE SYSTEM 12/24/2005 1:34 AM CDT Romie Laughlin MD CHEMISTRY ORDERABLES Final R esult Performing Organization Address [facility] Phone Number INTERFACE SYSTEM Refer to clinic/hospital department * (ABNORMAL) BASIC METABOLIC PANEL (12/24/2005 1:34 AM CDT) GLUCOSE 105(H) 65 - 99 mg/dL INTERFACE SYSTEM CREATININE 1.4(H) 0.5 - 1.3 mg/dL INTERFACE SYSTEM CALCIUM 7.3(L) 8.4 - 10.2 mg/dL INTERFACE SYSTEM BUN 29(H) 6 - 20 mg/dL INTERFACE SYSTEM SODIUM 135 135 - 145 mmol/L INTERFACE SYSTEM POTASSIUM 4.0 3.5 - 4.9 mmol/L INTERFACE SYSTEM CHLORIDE 103 96 - 108 mmol/L INTERFACE SYSTEM CO2 26 22 - 30 mmol/L INTERFACE SYSTEM 12/24/2005 1:34 AM CDT Romie Laughlin MD CHEMISTRY ORDERABLES Final R esult Performing Organization Address [facility]/ZIP Co de Phone Number INTERFACE SYSTEM Refer to clinic/hospital department * POC GLUCOSE (12/23/2005 11:24 PM CDT) GLUCOSE POC 80 65 - 109 mg/dL INTERFACE SYSTEM 12/23/2005 11:2 4 PM CDT Wicho Gomez MD POINT OF CARE TESTING Final R esult Performing Organization Address [facility] Phone Number INTERFACE SYSTEM Refer to clinic/hospital department * (ABNORMAL) PTT (12/23/2005 11:00 PM CDT) PTT 104.4(AA) 24.4 - 36.4 Seconds INTERFACE SYSTEM Comment: PTT Therapeutic Range: Heparin Level ? PTT (seconds) <0.10 units/mL ? <53 0.10 - 0.30 units/mL ? 53 - 67 0.30 - 0.70 units/mL* ?67 - 95* 0.70 - 1.00 units/mL ?95 - 116 *corresponds to therapeutic range for unfractionated heparin ?? Verified by repeat analysis. Results called to neda at 12/23/2005 11:50 PM and read back verified. 12/23/2005 11:0 0 PM CDT Wicho Gomez MD HEMATOLOGY ORDERABLES Final R esult Performing Organization Address [facility] Phone Number INTERFACE SYSTEM Refer to clinic/hospital department * (ABNORMAL) POC GLUCOSE (12/23/2005 5:18 PM CDT) GLUCOSE POC 149(H) 65 - 109 mg/dL INTERFACE SYSTEM 12/23/2005 5:18 PM CDT Wicho Gomez MD POINT OF CARE TESTING Final R esult Performing Organization Address [facility]/ZIP Co de Phone Number INTERFACE SYSTEM Refer to clinic/hospital department * (ABNORMAL) PTT (12/23/2005 5:00 PM CDT) PTT 85.8(H) 24.4 - 36.4 Seconds INTERFACE SYSTEM Comment: PTT Therapeutic Range: Heparin Level ? PTT (seconds) <0.10 units/mL ? <53 0.10 - 0.30 units/mL ? 53 - 67 0.30 - 0.70 units/mL* ?67 - 95* 0.70 - 1.00 units/mL ?95 - 116 *corresponds to therapeutic range for unfractionated heparin ?? 12/23/2005 5:00 PM CDT us Romie Laughlin MD HEMATOLOGY ORDERABLES Final Result Performing Organization Address [facility] Phone Number INTERFACE SYSTEM Refer to clinic/hospital department * POC GLUCOSE (12/23/2005 1:39 PM CDT) GLUCOSE POC 75 65 - 109 mg/dL INTERFACE SYSTEM 12/23/2005 1:39 PM CDT us Wicho Gomez MD POINT OF CARE TESTING Final R esult Performing Organization Address [facility] de Phone Number INTERFACE SYSTEM Refer to clinic/hospital department * (ABNORMAL) PT AND APTT (12/23/2005 8:00 AM CDT) PROTIME 18.9(H) 12.7 - 15.1 Seconds INTERFACE SYSTEM INR 1.5(H) 0.9 - 1.1 INTERFACE SYSTEM Comment: INR Therapeutic Range: Adult: 2.0 - 3.0 for pulmonary embolism or prophylaxis against venous thrombosis or systemic embolization. 2.0 - 3.0 for patients with tissue heart valves. ?? 2.5 - 3.5 for patients with mechanical heart valves or post MD. Pediatric ??(12 years and under): 1.5 - 3.0 Although the target range in children is not well established , INR values of 1.5 - 3.0 are recommended for most patients. Higher values have been used in children with prosthetic cardiac valves and hereditary clotting disorders. (<3 days) therapeutic ranges have not been established. PTT 106.0(AA) 24.4 - 36.4 Seconds INTERFACE SYSTEM Comment: PTT Therapeutic Range: Heparin Level ? PTT (seconds) <0.10 units/mL ? <53 0.10 - 0.30 units/mL ? 53 - 67 0.30 - 0.70 units/mL* ?67 - 95* 0.70 - 1.00 units/mL ?95 - 116 *corresponds to therapeutic range for unfractionated heparin ?? Results called to Delfina at 12/23/2005 8:58 AM and read back verified. 12/23/2005 8:00 AM CDT Wicho Gomez MD HEMATOLOGY ORDERABLES Final R [facility] Performing Organization Address [facility] Phone Number INTERFACE SYSTEM Refer to clinic/hospital department * (ABNORMAL) POC GLUCOSE (12/23/2005 5:56 AM CDT) GLUCOSE POC 208(H) 65 - 109 mg/dL INTERFACE SYSTEM 12/23/2005 5:56 AM CDT Wicho Gomez MD POINT OF CARE TESTING Final R [facility] Performing Organization Address [facility] de Phone Number INTERFACE SYSTEM Refer to clinic/hospital department * (ABNORMAL) CBC WITH DIFFERENTIAL (12/23/2005 3:00 AM CDT) NEUTROPHIL ABSOLUTE 5.10 1.90 - 7.00 K/uL INTERFACE SYSTEM LYMPHOCYTE ABSOLUTE 0.42(L) 0.70 - 4.50 K/uL INTERFACE SYSTEM MONOCYTE ABSOLUTE 0.42 0.10 - 1.30 K/uL INTERFACE SYSTEM EOSINOPHIL ABSOLUTE 0.00 0.00 - 0.70 K/uL INTERFACE SYSTEM BASOPHILS ABSOLUTE 0.06 0.00 - 0.20 K/uL INTERFACE SYSTEM NEUTROPHILS, SEG 78(H) 45 - 70 % INT ERFACE SYSTEM BANDS 7(H) 0 - 5 % INTERFACE SYSTEM LYMPHOCYTES 7(L) 16 - 45 % INTERFAC E SYSTEM MONOCYTES 7 3 - 13 % INTERFACE SYSTEM EOSINOPHILS 0 0 - 7 % INTERFAC E SYSTEM BASOPHILS 1 0 - 2 % INTERFACE SYSTEM PLATELET EST. Consistent w/ count Normal INTERFACE SYSTEM ANISOCYTOSIS Slight INTERFA CE SYSTEM POIKILOCYTES Slight INTERFA CE SYSTEM 12/23/2005 3:00 AM CDT Wicho Gomez MD HEMATOLOGY ORDERABLES Final R esult Performing Organization Address City/[facility]/ZIP Co de Phone Number INTERFACE SYSTEM Refer to clinic/hospital department * (ABNORMAL) CBC WITH DIFFERENTIAL (12/23/2005 3:00 AM CDT) WBC 6.0 4.0 - 9.8 K/uL INTERFACE SYSTEM RBC 3.10(L) 4.50 - 5.40 M/uL INTERFACE SYSTEM HEMOGLOBIN 9.5(L) 13.6 - 16.5 g/dL INTERFACE SYSTEM HEMATOCRIT 28.8(L) 40.0 - 48.0 % INTERFACE SYSTEM MCV 92.9 82.0 - 99.0 fL INTERFACE SYSTEM MCH 30.6 27.2 - 32.6 pg INTERFACE SYSTEM MCHC 33.0 31.5 - 35.5 % INTERFACE SYSTEM RDW 15.3(H) 11.5 - 14.5 % INTERFACE SYSTEM RDW-STDEV 51.9(H) 37.1 - 48.7 fL INTERFACE SYSTEM PLATELETS 231 140 - 350 K/uL INTERFACE SYSTEM MPV 9.4 9.3 - 12.4 fL INTERFACE SYSTEM 12/23/2005 3:00 AM CDT Wicho Gomez MD HEMATOLOGY ORDERABLES Final R esult INTERFACE SYSTEM Refer to clinic/hospital department * PHOSPHORUS (12/23/2005 3:00 AM CDT) PHOSPHORUS 2.9 2.5 - 4.5 mg/dL INTERFACE SYSTEM 12/23/2005 3:00 AM CDT us Wicho Gomez MD CHEMISTRY ORDERABLES Final Re sult Performing Organization Address [facility] Phone Number INTERFACE SYSTEM Refer to clinic/hospital department * MAGNESIUM LEVEL (12/23/2005 3:00 AM CDT) MAGNESIUM 1.6 1.5 - 2.5 mg/dL INTERFACE SYSTEM 12/23/2005 3:00 AM CDT us Wicho Gomez MD CHEMISTRY ORDERABLES Final Re sult Performing Organization Address [facility] Phone Number INTERFACE SYSTEM Refer to clinic/hospital department * (ABNORMAL) CALCIUM IONIZED (12/23/2005 3:00 AM CDT) CALCIUM IONIZED 4.44(L) 4.76 - 5.16 mg/dL INTERFACE SYSTEM 12/23/2005 3:00 AM CDT us Wicho Gomez MD CHEMISTRY ORDERABLES Final Re sult Performing Organization Address [facility] Phone Number INTERFACE SYSTEM Refer to clinic/hospital department * (ABNORMAL) BASIC METABOLIC PANEL (12/23/2005 3:00 AM CDT) GLUCOSE 148(H) 65 - 99 mg/dL INTERFACE SYSTEM CREATININE 0.9 0.5 - 1.3 mg/dL INTERFACE SYSTEM CALCIUM 7.2(L) 8.4 - 10.2 mg/dL INTERFACE SYSTEM BUN 21(H) 6 - 20 mg/dL INTERFACE SYSTEM SODIUM 138 135 - 145 mmol/L INTERFACE SYSTEM POTASSIUM 3.8 3.5 - 4.9 mmol/L INTERFACE SYSTEM CHLORIDE 106 96 - 108 mmol/L INTERFACE SYSTEM CO2 26 22 - 30 mmol/L INTERFACE SYSTEM 12/23/2005 3:00 AM CDT us Wicho Gomez MD CHEMISTRY ORDERABLES Final Re sult Performing Organization Address City/[facility]/ZIP Co de Phone Number INTERFACE SYSTEM Refer to clinic/hospital department * (ABNORMAL) PT AND APTT (12/23/2005 2:00 AM CDT) PROTIME 18.2(H) 12.7 - 15.1 Seconds INTERFACE SYSTEM INR 1.4(H) 0.9 - 1.1 INTERFACE SYSTEM Comment: INR Therapeutic Range: Adult: 2.0 - 3.0 for pulmonary embolism or prophylaxis against venous thrombosis or systemic embolization. 2.0 - 3.0 for patients with tissue heart valves. ?? 2.5 - 3.5 for patients with mechanical heart valves or post MD. Pediatric ??(12 years and under): 1.5 - 3.0 Although the target range in children is not well established , INR values of 1.5 - 3.0 are recommended for most patients. Higher values have been used in children with prosthetic cardiac valves and hereditary clotting disorders. (<3 days) therapeutic ranges have not been established. PTT 84.0(H) 24.4 - 36.4 Seconds INTERFACE SYSTEM Comment: PTT Therapeutic Range: Heparin Level ? PTT (seconds) <0.10 units/mL ? <53 0.10 - 0.30 units/mL ? 53 - 67 0.30 - 0.70 units/mL* ?67 - 95* 0.70 - 1.00 units/mL ?95 - 116 *corresponds to therapeutic range for unfractionated heparin ?? 12/23/2005 2:00 AM CDT us Wicho Gomez MD HEMATOLOGY ORDERABLES Final R esult Performing Organization Address City/[facility]/ZIP Co de Phone Number INTERFACE SYSTEM Refer to clinic/hospital department * (ABNORMAL) POC GLUCOSE (12/23/2005 12:18 AM CDT) GLUCOSE POC 141(H) 65 - 109 mg/dL INTERFACE SYSTEM 12/23/2005 12:1 8 AM CDT us Wicho Gomez MD POINT OF CARE TESTING Final R esult Performing Organization Address City/[facility]/ZIP Co de Phone Number INTERFACE SYSTEM Refer to clinic/hospital department * (ABNORMAL) PT AND APTT (12/22/2005 8:15 PM CDT) PROTIME 18.1(H) 12.7 - 15.1 Seconds INTERFACE SYSTEM INR 1.4(H) 0.9 - 1.1 INTERFACE SYSTEM Comment: INR Therapeutic Range: Adult: 2.0 - 3.0 for pulmonary embolism or prophylaxis against venous thrombosis or systemic embolization. 2.0 - 3.0 for patients with tissue heart valves. ?? 2.5 - 3.5 for patients with mechanical heart valves or post MD. Pediatric ??(12 years and under): 1.5 - 3.0 Although the target range in children is not well established , INR values of 1.5 - 3.0 are recommended for most patients. Higher values have been used in children with prosthetic cardiac valves and hereditary clotting disorders. (<3 days) therapeutic ranges have not been established. PTT 98.9(AA) 24.4 - 36.4 Seconds INTERFACE SYSTEM Comment: PTT Therapeutic Range: Heparin Level ? PTT (seconds) <0.10 units/mL ? <53 0.10 - 0.30 units/mL ? 53 - 67 0.30 - 0.70 units/mL* ?67 - 95* 0.70 - 1.00 units/mL ?95 - 116 *corresponds to therapeutic range for unfractionated heparin ?? Results called to judy at 12/22/2005 9:03 PM and read back verified. 12/22/2005 8:15 PM CDT us Romie Luaghlin MD HEMATOLOGY ORDERABLES Final Result Performing Organization Address City/[facility]/ZIP Co de Phone Number INTERFACE SYSTEM Refer to clinic/hospital department * (ABNORMAL) POC GLUCOSE (12/22/2005 5:59 PM CDT) COMMENT, GLU POC Notified RN INTERFACE SYSTEM GLUCOSE POC 181(H) 65 - 109 mg/dL INTERFACE SYSTEM 12/22/2005 5:59 PM CDT us Wicho Gomez MD POINT OF CARE TESTING Final R esult INTERFACE SYSTEM Refer to clinic/hospital department * (ABNORMAL) PT AND APTT (12/22/2005 2:35 PM CDT) PROTIME 17.6(H) 12.7 - 15.1 Seconds INTERFACE SYSTEM INR 1.3(H) 0.9 - 1.1 INTERFACE SYSTEM Comment: INR Therapeutic Range: Adult: 2.0 - 3.0 for pulmonary embolism or prophylaxis against venous thrombosis or systemic embolization. 2.0 - 3.0 for patients with tissue heart valves. ?? 2.5 - 3.5 for patients with mechanical heart valves or post MD. Pediatric ??(12 years and under): 1.5 - 3.0 Although the target range in children is not well established , INR values of 1.5 - 3.0 are recommended for most patients. Higher values have been used in children with prosthetic cardiac valves and hereditary clotting disorders. (<3 days) therapeutic ranges have not been established. PTT 55.2(H) 24.4 - 36.4 Seconds INTERFACE SYSTEM Comment: PTT Therapeutic Range: Heparin Level ? PTT (seconds) <0.10 units/mL ? <53 0.10 - 0.30 units/mL ? 53 - 67 0.30 - 0.70 units/mL* ?67 - 95* 0.70 - 1.00 units/mL ?95 - 116 *corresponds to therapeutic range for unfractionated heparin ?? 12/22/2005 2:35 PM CDT Wicho Gomez MD HEMATOLOGY ORDERABLES Final R esult Performing Organization Address City/[facility]/ZIP Co de Phone Number INTERFACE SYSTEM Refer to clinic/hospital department * (ABNORMAL) POC GLUCOSE (12/22/2005 12:59 PM CDT) COMMENT, GLU POC Notified RN INTERFACE SYSTEM GLUCOSE POC 135(H) 65 - 109 mg/dL INTERFACE SYSTEM 12/22/2005 12:5 9 PM CDT Wicho Gomez MD POINT OF CARE TESTING Final R esult Performing Organization Address City/[facility] Co de Phone Number INTERFACE SYSTEM Refer to clinic/hospital department * (ABNORMAL) PT AND APTT (12/22/2005 8:04 AM CDT) PROTIME 18.2(H) 12.7 - 15.1 Seconds INTERFACE SYSTEM INR 1.4(H) 0.9 - 1.1 INTERFACE SYSTEM Comment: INR Therapeutic Range: Adult: 2.0 - 3.0 for pulmonary embolism or prophylaxis against venous thrombosis or systemic embolization. 2.0 - 3.0 for patients with tissue heart valves. ?? 2.5 - 3.5 for patients with mechanical heart valves or post MD. Pediatric ??(12 years and under): 1.5 - 3.0 Although the target range in children is not well established , INR values of 1.5 - 3.0 are recommended for most patients. Higher values have been used in children with prosthetic cardiac valves and hereditary clotting disorders. (<3 days) therapeutic ranges have not been established. PTT 84.5(H) 24.4 - 36.4 Seconds INTERFACE SYSTEM Comment: PTT Therapeutic Range: Heparin Level ? PTT (seconds) <0.10 units/mL ? <53 0.10 - 0.30 units/mL ? 53 - 67 0.30 - 0.70 units/mL* ?67 - 95* 0.70 - 1.00 units/mL ?95 - 116 *corresponds to therapeutic range for unfractionated heparin ?? 12/22/2005 8:04 AM CDT Wicho Gomez MD HEMATOLOGY ORDERABLES Final R esult Performing Organization Address [facility] de Phone Number INTERFACE SYSTEM Refer to clinic/hospital department * (ABNORMAL) POC GLUCOSE (12/22/2005 5:32 AM CDT) [facility] GLUCOSE POC 166(H) 65 - 109 mg/dL INTERFACE SYSTEM 12/22/2005 5:32 AM CDT Wicho Gomez MD POINT OF CARE TESTING Final R formerly [facility] Performing Organization Address [facility] Phone Number INTERFACE SYSTEM Refer to clinic/hospital department * (ABNORMAL) CBC WITH DIFFERENTIAL (12/22/2005 3:20 AM CDT) [facility] NEUTROPHIL ABSOLUTE 5.33 1.90 - 7.00 K/uL INTERFACE SYSTEM LYMPHOCYTE ABSOLUTE 0.58(L) 0.70 - 4.50 K/uL INTERFACE SYSTEM MONOCYTE ABSOLUTE 0.58 0.10 - 1.30 K/uL INTERFACE SYSTEM EOSINOPHIL ABSOLUTE 0.00 0.00 - 0.70 K/uL INTERFACE SYSTEM BASOPHILS ABSOLUTE 0.00 0.00 - 0.20 K/uL INTERFACE SYSTEM NEUTROPHILS, SEG 79(H) 45 - 70 % INT ERFACE SYSTEM BANDS 3 0 - 5 % INTERFACE SYSTEM LYMPHOCYTES 9(L) 16 - 45 % INTERFAC E SYSTEM MONOCYTES 9 3 - 13 % INTERFACE SYSTEM EOSINOPHILS 0 0 - 7 % INTERFAC E SYSTEM BASOPHILS 0 0 - 2 % INTERFACE SYSTEM PLATELET EST. Consistent w/ count Normal INTERFACE SYSTEM ANISOCYTOSIS Slight INTERFA CE SYSTEM POIKILOCYTES Slight INTERFA CE SYSTEM OVALOCYTES Slight INTERFACE SYSTEM 12/22/2005 3:20 AM CDT Romie Laughlin MD HEMATOLOGY ORDERABLES Final Result Performing Organization Address [facility] Phone Number INTERFACE SYSTEM Refer to clinic/hospital department * (ABNORMAL) CBC WITH DIFFERENTIAL (12/22/2005 3:20 AM CDT) WBC 6.5 4.0 - 9.8 K/uL INTERFACE SYSTEM RBC 2.89(L) 4.50 - 5.40 M/uL INTERFACE SYSTEM HEMOGLOBIN 8.7(L) 13.6 - 16.5 g/dL INTERFACE SYSTEM HEMATOCRIT 26.9(L) 40.0 - 48.0 % INTERFACE SYSTEM MCV 93.1 82.0 - 99.0 fL INTERFACE SYSTEM MCH 30.1 27.2 - 32.6 pg INTERFACE SYSTEM MCHC 32.3 31.5 - 35.5 % INTERFACE SYSTEM RDW 15.3(H) 11.5 - 14.5 % INTERFACE SYSTEM RDW-STDEV 52.3(H) 37.1 - 48.7 fL INTERFACE SYSTEM PLATELETS 219 140 - 350 K/uL INTERFACE SYSTEM MPV 9.4 9.3 - 12.4 fL INTERFACE SYSTEM 12/22/2005 3:20 AM CDT Romie Laughlin MD HEMATOLOGY ORDERABLES Final Result Performing Organization Address [facility] Phone Number INTERFACE SYSTEM Refer to clinic/hospital department * (ABNORMAL) ALBUMIN LEVEL (12/22/2005 3:20 AM CDT) ALBUMIN 1.5(L) 3.4 - 4.8 g/dL INTERFACE SYSTEM 12/22/2005 3:20 AM CDT Romie Laughlin MD CHEMISTRY ORDERABLES Final R esult Performing Organization Address [place]/[facility] Phone Number INTERFACE SYSTEM Refer to clinic/hospital department * (ABNORMAL) PREALBUMIN (12/22/2005 3:20 AM CDT) PREALBUMIN 15(L) 20 - 40 mg/dL INTERFACE SYSTEM 12/22/2005 3:20 AM CDT Romie Laughlin MD CHEMISTRY ORDERABLES Final R esult Performing Organization Address City/[facility] de Phone Number INTERFACE SYSTEM Refer to clinic/hospital department * PHOSPHORUS (12/22/2005 3:20 AM CDT) PHOSPHORUS 4.1 2.5 - 4.5 mg/dL INTERFACE SYSTEM 12/22/2005 3:20 AM CDT Romie Laughlin MD CHEMISTRY ORDERABLES Final R esult Performing Organization Address [facility] Phone Number INTERFACE SYSTEM Refer to clinic/hospital department * MAGNESIUM LEVEL (12/22/2005 3:20 AM CDT) MAGNESIUM 1.6 1.5 - 2.5 mg/dL INTERFACE SYSTEM 12/22/2005 3:20 AM CDT Romie Laughlin MD CHEMISTRY ORDERABLES Final R esult Performing Organization Address [facility] Phone Number INTERFACE SYSTEM Refer to clinic/hospital department * (ABNORMAL) CALCIUM IONIZED (12/22/2005 3:20 AM CDT) CALCIUM IONIZED 4.72(L) 4.76 - 5.16 mg/dL INTERFACE SYSTEM 12/22/2005 3:20 AM CDT Romie Laughlin MD CHEMISTRY ORDERABLES Final R esult Performing Organization Address [facility] Phone Number INTERFACE SYSTEM Refer to clinic/hospital department * (ABNORMAL) BASIC METABOLIC PANEL (12/22/2005 3:20 AM CDT) GLUCOSE 153(H) 65 - 99 mg/dL INTERFACE SYSTEM CREATININE 0.9 0.5 - 1.3 mg/dL INTERFACE SYSTEM CALCIUM 7.5(L) 8.4 - 10.2 mg/dL INTERFACE SYSTEM BUN 19 6 - 20 mg/dL INTERFACE SYSTEM SODIUM 136 135 - 145 mmol/L INTERFACE SYSTEM POTASSIUM 4.1 3.5 - 4.9 mmol/L INTERFACE SYSTEM CHLORIDE 105 96 - 108 mmol/L INTERFACE SYSTEM CO2 26 22 - 30 mmol/L INTERFACE SYSTEM 12/22/2005 3:20 AM CDT us Romie Laughlin MD CHEMISTRY ORDERABLES Final R esult Performing Organization Address [facility] de Phone Number INTERFACE SYSTEM Refer to clinic/hospital department * (ABNORMAL) PT AND APTT (12/22/2005 1:50 AM CDT) PROTIME 18.0(H) 12.7 - 15.1 Seconds INTERFACE SYSTEM INR 1.4(H) 0.9 - 1.1 INTERFACE SYSTEM Comment: INR Therapeutic Range: Adult: 2.0 - 3.0 for pulmonary embolism or prophylaxis against venous thrombosis or systemic embolization. 2.0 - 3.0 for patients with tissue heart valves. ?? 2.5 - 3.5 for patients with mechanical heart valves or post MD. Pediatric ??(12 years and under): 1.5 - 3.0 Although the target range in children is not well established , INR values of 1.5 - 3.0 are recommended for most patients. Higher values have been used in children with prosthetic cardiac valves and hereditary clotting disorders. (<3 days) therapeutic ranges have not been established. PTT 104.8(AA) 24.4 - 36.4 Seconds INTERFACE SYSTEM Comment: PTT Therapeutic Range: Heparin Level ? PTT (seconds) <0.10 units/mL ? <53 0.10 - 0.30 units/mL ? 53 - 67 0.30 - 0.70 units/mL* ?67 - 95* 0.70 - 1.00 units/mL ?95 - 116 *corresponds to therapeutic range for unfractionated heparin ?? Results called to hiram at 12/22/2005 3:50 AM and read back verified. 12/22/2005 1:50 AM CDT us Romie Laughlin MD HEMATOLOGY ORDERABLES Final Result Performing Organization Address [facility] de Phone Number INTERFACE SYSTEM Refer to clinic/hospital department * (ABNORMAL) POC GLUCOSE (12/21/2005 11:29 PM CDT) GLUCOSE POC 168(H) 65 - 109 mg/dL INTERFACE SYSTEM 12/21/2005 11:2 9 PM CDT Wicho Gomez MD POINT OF CARE TESTING [facility] Performing Organization Address [facility] Phone Number INTERFACE SYSTEM Refer to clinic/hospital department * (ABNORMAL) PTT (12/21/2005 8:27 PM CDT) PTT 84.1(H) 24.4 - 36.4 Seconds INTERFACE SYSTEM Comment: PTT Therapeutic Range: Heparin Level ? PTT (seconds) <0.10 units/mL ? <53 0.10 - 0.30 units/mL ? 53 - 67 0.30 - 0.70 units/mL* ?67 - 95* 0.70 - 1.00 units/mL ?95 - 116 *corresponds to therapeutic range for unfractionated heparin ?? 12/21/2005 8:27 PM CDT Wicho Gomez MD HEMATOLOGY ORDERABLES Final R [facility] Performing Organization Address [facility] Phone Number INTERFACE SYSTEM Refer to clinic/hospital department * (ABNORMAL) POC GLUCOSE (12/21/2005 5:48 PM CDT) GLUCOSE POC 169(H) 65 - 109 mg/dL INTERFACE SYSTEM 12/21/2005 5:48 PM CDT us Wicho Gomez MD POINT OF CARE TESTING Final R esult Performing Organization Address [facility] de Phone Number INTERFACE SYSTEM Refer to clinic/hospital department * (ABNORMAL) PT AND APTT (12/21/2005 12:23 PM CDT) PROTIME 17.6(H) 12.7 - 15.1 Seconds INTERFACE SYSTEM INR 1.3(H) 0.9 - 1.1 INTERFACE SYSTEM Comment: INR Therapeutic Range: Adult: 2.0 - 3.0 for pulmonary embolism or prophylaxis against venous thrombosis or systemic embolization. 2.0 - 3.0 for patients with tissue heart valves. ?? 2.5 - 3.5 for patients with mechanical heart valves or post MD. Pediatric ??(12 years and under): 1.5 - 3.0 Although the target range in children is not well established , INR values of 1.5 - 3.0 are recommended for most patients. Higher values have been used in children with prosthetic cardiac valves and hereditary clotting disorders. (<3 days) therapeutic ranges have not been established. PTT 57.9(H) 24.4 - 36.4 Seconds INTERFACE SYSTEM Comment: PTT Therapeutic Range: Heparin Level ? PTT (seconds) <0.10 units/mL ? <53 0.10 - 0.30 units/mL ? 53 - 67 0.30 - 0.70 units/mL* ?67 - 95* 0.70 - 1.00 units/mL ?95 - 116 *corresponds to therapeutic range for unfractionated heparin ?? 12/21/2005 12:2 3 PM CDT us Romie Laughlin MD HEMATOLOGY ORDERABLES Final Result INTERFACE SYSTEM Refer to clinic/hospital department * (ABNORMAL) POC GLUCOSE (12/21/2005 12:07 PM CDT) Pathologist [facility] GLUCOSE POC 139(H) 65 - 109 mg/dL INTERFACE SYSTEM 12/21/2005 12:0 7 PM CDT us Wicho Gomez MD POINT OF CARE TESTING Final R esult INTERFACE SYSTEM Refer to clinic/hospital department * (ABNORMAL) POC GLUCOSE (12/21/2005 5:51 AM CDT) GLUCOSE POC 127(H) 65 - 109 mg/dL INTERFACE SYSTEM 12/21/2005 5:51 AM CDT us Wicho Gomez MD POINT OF CARE TESTING Final R esult Performing Organization Address [facility] de Phone Number INTERFACE SYSTEM Refer to clinic/hospital department * (ABNORMAL) CBC WITH DIFFERENTIAL (12/21/2005 3:38 AM CDT) NEUTROPHILS 77(H) 45 - 70 % INTERFAC E SYSTEM LYMPHOCYTES 13(L) 16 - 45 % INTERFAC E SYSTEM MONOCYTES 9 3 - 13 % INTERFACE SYSTEM EOSINOPHILS 0 0 - 7 % INTERFAC E SYSTEM BASOPHILS 0 0 - 2 % INTERFACE SYSTEM NEUTROPHIL ABSOLUTE 5.74 1.90 - 7.00 K/uL INTERFACE SYSTEM LYMPHOCYTE ABSOLUTE 0.97 0.70 - 4.50 K/uL INTERFACE SYSTEM MONOCYTE ABSOLUTE 0.70 0.10 - 1.30 K/uL INTERFACE SYSTEM EOSINOPHIL ABSOLUTE 0.00 0.00 - 0.70 K/uL INTERFACE SYSTEM BASOPHILS ABSOLUTE 0.01 0.00 - 0.20 K/uL INTERFACE SYSTEM 12/21/2005 3:38 AM CDT us Romie Laughlin MD HEMATOLOGY ORDERABLES Final Result Performing Organization Address [facility] Phone Number INTERFACE SYSTEM Refer to clinic/hospital department * (ABNORMAL) CBC WITH DIFFERENTIAL (12/21/2005 3:38 AM CDT) WBC 7.4 4.0 - 9.8 K/uL INTERFACE SYSTEM RBC 3.09(L) 4.50 - 5.40 M/uL INTERFACE SYSTEM HEMOGLOBIN 9.5(L) 13.6 - 16.5 g/dL INTERFACE SYSTEM HEMATOCRIT 28.6(L) 40.0 - 48.0 % INTERFACE SYSTEM MCV 92.6 82.0 - 99.0 fL INTERFACE SYSTEM MCH 30.7 27.2 - 32.6 pg INTERFACE SYSTEM MCHC 33.2 31.5 - 35.5 % INTERFACE SYSTEM RDW 15.6(H) 11.5 - 14.5 % INTERFACE SYSTEM RDW-STDEV 52.4(H) 37.1 - 48.7 fL INTERFACE SYSTEM PLATELETS 241 140 - 350 K/uL INTERFACE SYSTEM MPV 9.3 9.3 - 12.4 fL INTERFACE SYSTEM 12/21/2005 3:38 AM CDT Romie Laughlin MD HEMATOLOGY ORDERABLES Final Result Performing Organization Address [facility] Phone Number INTERFACE SYSTEM Refer to clinic/hospital department * (ABNORMAL) CALCIUM IONIZED (12/21/2005 3:38 AM CDT) CALCIUM IONIZED 4.28(L) 4.76 - 5.16 mg/dL INTERFACE SYSTEM 12/21/2005 3:38 AM CDT Romie Laughlin MD CHEMISTRY ORDERABLES Final R esult Performing Organization Address [facility] Phone Number INTERFACE SYSTEM Refer to clinic/hospital department * PHOSPHORUS (12/21/2005 3:38 AM CDT) PHOSPHORUS 3.9 2.5 - 4.5 mg/dL INTERFACE SYSTEM 12/21/2005 3:38 AM CDT Romie Laughlin MD CHEMISTRY ORDERABLES Final R esult Performing Organization Address [facility] Phone Number INTERFACE SYSTEM Refer to clinic/hospital department * MAGNESIUM LEVEL (12/21/2005 3:38 AM CDT) MAGNESIUM 1.8 1.5 - 2.5 mg/dL INTERFACE SYSTEM 12/21/2005 3:38 AM CDT Romie Laughlin MD CHEMISTRY ORDERABLES Final R esult Performing Organization Address [facility] Phone Number INTERFACE SYSTEM Refer to clinic/hospital department * (ABNORMAL) BASIC METABOLIC PANEL (12/21/2005 3:38 AM CDT) GLUCOSE 178(H) 65 - 99 mg/dL INTERFACE SYSTEM CREATININE 0.9 0.5 - 1.3 mg/dL INTERFACE SYSTEM CALCIUM 7.2(L) 8.4 - 10.2 mg/dL INTERFACE SYSTEM BUN 20 6 - 20 mg/dL INTERFACE SYSTEM SODIUM 136 135 - 145 mmol/L INTERFACE SYSTEM POTASSIUM 4.2 3.5 - 4.9 mmol/L INTERFACE SYSTEM CHLORIDE 104 96 - 108 mmol/L INTERFACE SYSTEM CO2 26 22 - 30 mmol/L INTERFACE SYSTEM 12/21/2005 3:38 AM CDT Romie Laughlin MD CHEMISTRY ORDERABLES Final R esult Performing Organization Address [facility] Phone Number INTERFACE SYSTEM Refer to clinic/hospital department * (ABNORMAL) POC GLUCOSE (12/21/2005 12:40 AM CDT) GLUCOSE POC 193(H) 65 - 109 mg/dL INTERFACE SYSTEM 12/21/2005 12:4 0 AM CDT Wicho Gomez MD POINT OF CARE TESTING Final R [facility] Performing Organization Address [facility] Phone Number INTERFACE SYSTEM Refer to clinic/hospital department * (ABNORMAL) POC GLUCOSE (12/20/2005 6:54 PM CDT) GLUCOSE POC 144(H) 65 - 109 mg/dL INTERFACE SYSTEM 12/20/2005 6:54 PM CDT Wicho Gomez MD POINT OF CARE TESTING Final R esult Performing Organization Address [facility] de Phone Number INTERFACE SYSTEM Refer to clinic/hospital department * (ABNORMAL) BLOOD GAS ARTERIAL (12/20/2005 1:41 PM CDT) PH ARTERIAL 7.44 7.35 - 7.45 INTERFACE SYSTEM PCO2 ARTERIAL 37 35 - 48 mm Hg INTERFACE SYSTEM PO2 ARTERIAL 161(H) 83 - 108 mm Hg INTERFACE SYSTEM SO2 ABG 99 95 - 99 % INTERFACE SYSTEM FO2HB ABG 98 94 - 98 % INTERFACE SYSTEM HCO3 ARTERIAL 24 22 - 26 mmol/L INTERFACE SYSTEM BASE EXCESS ABG 0.4 -2.0 - 3.0 mmol/L INTERFACE SYSTEM O2 CONC ARTERIAL 40 INTERFACE SYSTEM 12/20/2005 1:41 PM CDT Romie Laughlin MD ABG ORDERABLES Final Result Performing Organization Address [facility] Phone Number INTERFACE SYSTEM Refer to clinic/hospital department * (ABNORMAL) PHOSPHORUS (12/20/2005 1:41 PM CDT) PHOSPHORUS 4.8(H) 2.5 - 4.5 mg/dL INTERFACE SYSTEM 12/20/2005 1:41 PM CDT Romie Laughlin MD CHEMISTRY ORDERABLES Final R esult Performing Organization Address [facility] Phone Number INTERFACE SYSTEM Refer to clinic/hospital department * MAGNESIUM LEVEL (12/20/2005 1:41 PM CDT) MAGNESIUM 1.8 1.5 - 2.5 mg/dL INTERFACE SYSTEM 12/20/2005 1:41 PM CDT Romie Laughlin MD CHEMISTRY ORDERABLES Final R esult Performing Organization Address [facility] Phone Number INTERFACE SYSTEM Refer to clinic/hospital department * (ABNORMAL) CALCIUM IONIZED (12/20/2005 1:40 PM CDT) CALCIUM IONIZED 4.48(L) 4.76 - 5.16 mg/dL INTERFACE SYSTEM 12/20/2005 1:40 PM CDT Romie Laughlin MD CHEMISTRY ORDERABLES Final R esult Performing Organization Address [facility] Phone Number INTERFACE SYSTEM Refer to clinic/hospital department * (ABNORMAL) BASIC METABOLIC PANEL (12/20/2005 1:40 PM CDT) GLUCOSE 90 65 - 99 mg/dL INTERFACE SYSTEM CREATININE 0.8 0.5 - 1.3 mg/dL INTERFACE SYSTEM CALCIUM 7.6(L) 8.4 - 10.2 mg/dL INTERFACE SYSTEM BUN 20 6 - 20 mg/dL INTERFACE SYSTEM SODIUM 136 135 - 145 mmol/L INTERFACE SYSTEM POTASSIUM 4.6 3.5 - 4.9 mmol/L INTERFACE SYSTEM CHLORIDE 104 96 - 108 mmol/L INTERFACE SYSTEM CO2 26 22 - 30 mmol/L INTERFACE SYSTEM 12/20/2005 1:40 PM CDT us Romie Laughlin MD CHEMISTRY ORDERABLES Final R esult Performing Organization Address City/[facility]/ZIP Co de Phone Number INTERFACE SYSTEM Refer to clinic/hospital department * (ABNORMAL) CBC WITH DIFFERENTIAL (12/20/2005 1:40 PM CDT) NEUTROPHIL ABSOLUTE 9.48(H) 1.90 - 7.00 K/uL INTERFACE SYSTEM LYMPHOCYTE ABSOLUTE 0.31(L) 0.70 - 4.50 K/uL INTERFACE SYSTEM MONOCYTE ABSOLUTE 0.52 0.10 - 1.30 K/uL INTERFACE SYSTEM EOSINOPHIL ABSOLUTE 0.00 0.00 - 0.70 K/uL INTERFACE SYSTEM BASOPHILS ABSOLUTE 0.00 0.00 - 0.20 K/uL INTERFACE SYSTEM NEUTROPHILS, SEG 77(H) 45 - 70 % INT ERFACE SYSTEM BANDS 15(H) 0 - 5 % INTERFACE SYSTEM LYMPHOCYTES 3(L) 16 - 45 % INTERFAC E SYSTEM MONOCYTES 5 3 - 13 % INTERFACE SYSTEM EOSINOPHILS 0 0 - 7 % INTERFAC E SYSTEM BASOPHILS 0 0 - 2 % INTERFACE SYSTEM PLATELET EST. Consistent w/ count Normal INTERFACE SYSTEM ANISOCYTOSIS Slight INTERFA CE SYSTEM POIKILOCYTES Slight INTERFA CE SYSTEM POLYCHROMASIA Slight INTERF CINDY SYSTEM TOXIC GRANULATION Slight IN TERFACE SYSTEM DOHLE BODIES Present INTERFA CE SYSTEM REVIEWED ON SMEAR Plt OK by Smear Rev. INTERFACE SYSTEM 12/20/2005 1:40 PM CDT us Romie Laughlin MD HEMATOLOGY ORDERABLES Final Result Performing Organization Address City/[facility]/ZIP Co de Phone Number INTERFACE SYSTEM Refer to clinic/hospital department * (ABNORMAL) CBC WITH DIFFERENTIAL (12/20/2005 1:40 PM CDT) WBC 10.3(H) 4.0 - 9.8 K/uL INTERFACE SYSTEM RBC 3.42(L) 4.50 - 5.40 M/uL INTERFACE SYSTEM HEMOGLOBIN 10.3(L) 13.6 - 16.5 g/dL INTERFACE SYSTEM HEMATOCRIT 31.6(L) 40.0 - 48.0 % INTERFACE SYSTEM MCV 92.4 82.0 - 99.0 fL INTERFACE SYSTEM MCH 30.1 27.2 - 32.6 pg INTERFACE SYSTEM MCHC 32.6 31.5 - 35.5 % INTERFACE SYSTEM RDW 15.4(H) 11.5 - 14.5 % INTERFACE SYSTEM RDW-STDEV 52.0(H) 37.1 - 48.7 fL INTERFACE SYSTEM PLATELETS 237 140 - 350 K/uL INTERFACE SYSTEM MPV 9.6 9.3 - 12.4 fL INTERFACE SYSTEM 12/20/2005 1:40 PM CDT us Romie Laughlin MD HEMATOLOGY ORDERABLES Final Result Performing Organization Address City/[facility] de Phone Number INTERFACE SYSTEM Refer to clinic/hospital department * POC GLUCOSE (12/20/2005 12:14 PM CDT) Pathologist [facility] GLUCOSE POC 87 65 - 109 mg/dL INTERFACE SYSTEM 12/20/2005 12:1 4 PM CDT us Wicho Gomez MD POINT OF CARE TESTING Final R esult Performing Organization Address [facility] de Phone Number INTERFACE SYSTEM Refer to clinic/hospital department * (ABNORMAL) PT AND APTT (12/20/2005 3:30 AM CDT) Pathologist [facility] PROTIME 16.3(H) 12.7 - 15.1 Seconds INTERFACE SYSTEM INR 1.2(H) 0.9 - 1.1 INTERFACE SYSTEM Comment: INR Therapeutic Range: Adult: 2.0 - 3.0 for pulmonary embolism or prophylaxis against venous thrombosis or systemic embolization. 2.0 - 3.0 for patients with tissue heart valves. ?? 2.5 - 3.5 for patients with mechanical heart valves or post MD. Pediatric ??(12 years and under): 1.5 - 3.0 Although the target range in children is not well established , INR values of 1.5 - 3.0 are recommended for most patients. Higher values have been used in children with prosthetic cardiac valves and hereditary clotting disorders. (<3 days) therapeutic ranges have not been established. PTT 33.6 24.4 - 36.4 Seconds INTERFACE SYSTEM Comment: PTT Therapeutic Range: Heparin Level ? PTT (seconds) <0.10 units/mL ? <53 0.10 - 0.30 units/mL ? 53 - 67 0.30 - 0.70 units/mL* ?67 - 95* 0.70 - 1.00 units/mL ?95 - 116 *corresponds to therapeutic range for unfractionated heparin ?? 12/20/2005 3:30 AM CDT us Romie Laughlin MD HEMATOLOGY ORDERABLES Final Result Performing Organization Address City/[facility] Co de Phone Number INTERFACE SYSTEM Refer to clinic/hospital department * (ABNORMAL) BLOOD GAS ARTERIAL (12/20/2005 3:30 AM CDT) PH ARTERIAL 7.43 7.35 - 7.45 INTERFACE SYSTEM PCO2 ARTERIAL 45 35 - 48 mm Hg INTERFACE SYSTEM PO2 ARTERIAL 103 83 - 108 mm Hg INTERFACE SYSTEM SO2 ABG 99 95 - 99 % INTERFACE SYSTEM FO2HB ABG 98 94 - 98 % INTERFACE SYSTEM HCO3 ARTERIAL 30(H) 22 - 26 mmol/L INTERFACE SYSTEM BASE EXCESS ABG 4.6(H) -2.0 - 3.0 mmol/L INTERFACE SYSTEM O2 CONC ARTERIAL 40% INTERFACE SYSTEM 12/20/2005 3:30 AM CDT us Wicho Gomez MD ABG ORDERABLES Final Result Performing Organization Address [place]/[facility] Co de Phone Number INTERFACE SYSTEM Refer to clinic/hospital department * (ABNORMAL) CBC WITH DIFFERENTIAL (12/20/2005 3:30 AM CDT) NEUTROPHILS 76(H) 45 - 70 % INTERFAC E SYSTEM LYMPHOCYTES 15(L) 16 - 45 % INTERFAC E SYSTEM MONOCYTES 10 3 - 13 % INTERFACE SYSTEM EOSINOPHILS 0 0 - 7 % INTERFAC E SYSTEM BASOPHILS 0 0 - 2 % INTERFACE SYSTEM NEUTROPHIL ABSOLUTE 4.93 1.90 - 7.00 K/uL INTERFACE SYSTEM LYMPHOCYTE ABSOLUTE 0.95 0.70 - 4.50 K/uL INTERFACE SYSTEM MONOCYTE ABSOLUTE 0.63 0.10 - 1.30 K/uL INTERFACE SYSTEM EOSINOPHIL ABSOLUTE 0.01 0.00 - 0.70 K/uL INTERFACE SYSTEM BASOPHILS ABSOLUTE 0.01 0.00 - 0.20 K/uL INTERFACE SYSTEM 12/20/2005 3:30 AM CDT Wicho Gomez MD HEMATOLOGY ORDERABLES Final R esult Performing Organization Address City/[facility] de Phone Number INTERFACE SYSTEM Refer to clinic/hospital department * (ABNORMAL) CBC WITH DIFFERENTIAL (12/20/2005 3:30 AM CDT) Pathologist [facility] WBC 6.5 4.0 - 9.8 K/uL INTERFACE SYSTEM RBC 2.97(L) 4.50 - 5.40 M/uL INTERFACE SYSTEM HEMOGLOBIN 8.8(L) 13.6 - 16.5 g/dL INTERFACE SYSTEM HEMATOCRIT 27.7(L) 40.0 - 48.0 % INTERFACE SYSTEM MCV 93.3 82.0 - 99.0 fL INTERFACE SYSTEM MCH 29.6 27.2 - 32.6 pg INTERFACE SYSTEM MCHC 31.8 31.5 - 35.5 % INTERFACE SYSTEM RDW 15.3(H) 11.5 - 14.5 % INTERFACE SYSTEM RDW-STDEV 52.3(H) 37.1 - 48.7 fL INTERFACE SYSTEM PLATELETS 220 140 - 350 K/uL INTERFACE SYSTEM MPV 9.7 9.3 - 12.4 fL INTERFACE SYSTEM 12/20/2005 3:30 AM CDT Wicho Gomez MD HEMATOLOGY ORDERABLES Final R esult Performing Organization Address City/[facility] Co de Phone Number INTERFACE SYSTEM Refer to clinic/hospital department * PHOSPHORUS (12/20/2005 3:30 AM CDT) PHOSPHORUS 4.1 2.5 - 4.5 mg/dL INTERFACE SYSTEM 12/20/2005 3:30 AM CDT us Wicho Gomez MD CHEMISTRY ORDERABLES Final Re sult Performing Organization Address [facility] INTERFACE SYSTEM Refer to clinic/hospital department * MAGNESIUM LEVEL (12/20/2005 3:30 AM CDT) MAGNESIUM 1.8 1.5 - 2.5 mg/dL INTERFACE SYSTEM 12/20/2005 3:30 AM CDT us Wicho Gomez MD CHEMISTRY ORDERABLES Final Re sult Performing Organization Address [facility] Number INTERFACE SYSTEM Refer to clinic/hospital department * (ABNORMAL) CALCIUM IONIZED (12/20/2005 3:30 AM CDT) CALCIUM IONIZED 4.56(L) 4.76 - 5.16 mg/dL INTERFACE SYSTEM 12/20/2005 3:30 AM CDT us Wicho Gomez MD CHEMISTRY ORDERABLES Final Re sult Performing Organization Address [facility] INTERFACE SYSTEM Refer to clinic/hospital department * (ABNORMAL) BASIC METABOLIC PANEL (12/20/2005 3:30 AM CDT) GLUCOSE 89 65 - 99 mg/dL INTERFACE SYSTEM CREATININE 0.8 0.5 - 1.3 mg/dL INTERFACE SYSTEM CALCIUM 7.3(L) 8.4 - 10.2 mg/dL INTERFACE SYSTEM BUN 21(H) 6 - 20 mg/dL INTERFACE SYSTEM SODIUM 137 135 - 145 mmol/L INTERFACE SYSTEM POTASSIUM 4.3 3.5 - 4.9 mmol/L INTERFACE SYSTEM CHLORIDE 104 96 - 108 mmol/L INTERFACE SYSTEM CO2 28 22 - 30 mmol/L INTERFACE SYSTEM 12/20/2005 3:30 AM CDT Wicho Gomez MD CHEMISTRY ORDERABLES Final Re sult Performing Organization Address [facility] Phone Number INTERFACE SYSTEM Refer to clinic/hospital department * (ABNORMAL) POC GLUCOSE (12/19/2005 11:42 PM CDT) GLUCOSE POC 161(H) 65 - 109 mg/dL INTERFACE SYSTEM 12/19/2005 11:4 2 PM CDT Wicho Gomez MD POINT OF CARE TESTING Final R esult Performing Organization Address [facility] Phone Number INTERFACE SYSTEM Refer to clinic/hospital department * (ABNORMAL) POC GLUCOSE (12/19/2005 6:20 PM CDT) GLUCOSE POC 118(H) 65 - 109 mg/dL INTERFACE SYSTEM 12/19/2005 6:20 PM CDT Wicho Gomez MD POINT OF CARE TESTING Final R [facility] Performing Organization Address [facility] Phone Number INTERFACE SYSTEM Refer to clinic/hospital department * (ABNORMAL) POC GLUCOSE (12/19/2005 1:10 PM CDT) GLUCOSE POC 168(H) 65 - 109 mg/dL INTERFACE SYSTEM 12/19/2005 1:10 PM CDT Wicho Gomez MD POINT OF CARE TESTING Final R esult Performing Organization Address [facility] de Phone Number INTERFACE SYSTEM Refer to clinic/hospital department * (ABNORMAL) CBC WITH DIFFERENTIAL (12/19/2005 1:10 PM CDT) NEUTROPHIL ABSOLUTE 8.55(H) 1.90 - 7.00 K/uL INTERFACE SYSTEM LYMPHOCYTE ABSOLUTE 0.09(L) 0.70 - 4.50 K/uL INTERFACE SYSTEM MONOCYTE ABSOLUTE 0.27 0.10 - 1.30 K/uL INTERFACE SYSTEM EOSINOPHIL ABSOLUTE 0.00 0.00 - 0.70 K/uL INTERFACE SYSTEM BASOPHILS ABSOLUTE 0.00 0.00 - 0.20 K/uL INTERFACE SYSTEM NEUTROPHILS, SEG 87(H) 45 - 70 % INT ERFACE SYSTEM BANDS 8(H) 0 - 5 % INTERFACE SYSTEM LYMPHOCYTES 1(L) 16 - 45 % INTERFAC E SYSTEM MONOCYTES 3 3 - 13 % INTERFACE SYSTEM EOSINOPHILS 0 0 - 7 % INTERFAC E SYSTEM BASOPHILS 0 0 - 2 % INTERFACE SYSTEM MYELOCYTES 1(H) <=0 % INTERFACE SYSTEM PLATELET EST. Consistent w/ count Normal INTERFACE SYSTEM ANISOCYTOSIS Slight INTERFA CE SYSTEM POIKILOCYTES Slight INTERFA CE SYSTEM REVIEWED ON SMEAR Plt OK by Smear Rev. INTERFACE SYSTEM 12/19/2005 1:10 PM CDT Wicho Gomez MD HEMATOLOGY ORDERABLES Final R esult Performing Organization Address [facility] de Phone Number INTERFACE SYSTEM Refer to clinic/hospital department * (ABNORMAL) CBC WITH DIFFERENTIAL (12/19/2005 1:10 PM CDT) WBC 9.0 4.0 - 9.8 K/uL INTERFACE SYSTEM RBC 3.19(L) 4.50 - 5.40 M/uL INTERFACE SYSTEM HEMOGLOBIN 9.6(L) 13.6 - 16.5 g/dL INTERFACE SYSTEM HEMATOCRIT 29.5(L) 40.0 - 48.0 % INTERFACE SYSTEM MCV 92.5 82.0 - 99.0 fL INTERFACE SYSTEM MCH 30.1 27.2 - 32.6 pg INTERFACE SYSTEM MCHC 32.5 31.5 - 35.5 % INTERFACE SYSTEM RDW 15.2(H) 11.5 - 14.5 % INTERFACE SYSTEM RDW-STDEV 51.6(H) 37.1 - 48.7 fL INTERFACE SYSTEM PLATELETS 229 140 - 350 K/uL INTERFACE SYSTEM MPV 9.7 9.3 - 12.4 fL INTERFACE SYSTEM 12/19/2005 1:10 PM CDT Wicho Gomez MD HEMATOLOGY ORDERABLES Final R esult Performing Organization Address City/[facility] Co de Phone Number INTERFACE SYSTEM Refer to clinic/hospital department * (ABNORMAL) PT AND APTT (12/19/2005 1:10 PM CDT) PTT 85.8(H) 24.4 - 36.4 Seconds INTERFACE SYSTEM Comment: PTT Therapeutic Range: Heparin Level ? PTT (seconds) <0.10 units/mL ? <53 0.10 - 0.30 units/mL ? 53 - 67 0.30 - 0.70 units/mL* ?67 - 95* 0.70 - 1.00 units/mL ?95 - 116 *corresponds to therapeutic range for unfractionated heparin ?? PROTIME 17.0(H) 12.7 - 15.1 Seconds INTERFACE SYSTEM INR 1.3(H) 0.9 - 1.1 INTERFACE SYSTEM Comment: INR Therapeutic Range: Adult: 2.0 - 3.0 for pulmonary embolism or prophylaxis against venous thrombosis or systemic embolization. 2.0 - 3.0 for patients with tissue heart valves. ?? 2.5 - 3.5 for patients with mechanical heart valves or post MD. Pediatric ??(12 years and under): 1.5 - 3.0 Although the target range in children is not well established , INR values of 1.5 - 3.0 are recommended for most patients. Higher values have been used in children with prosthetic cardiac valves and hereditary clotting disorders. (<3 days) therapeutic ranges have not been established. 12/19/2005 1:10 PM CDT Wicho Gomez MD HEMATOLOGY ORDERABLES Final R [place] Performing Organization Address City/[facility] Co de Phone Number INTERFACE SYSTEM Refer to clinic/hospital department * (ABNORMAL) POC GLUCOSE (12/19/2005 5:34 AM CDT) GLUCOSE POC 166(H) 65 - 109 mg/dL INTERFACE SYSTEM 12/19/2005 5:34 AM CDT Wicho Gomez MD POINT OF CARE TESTING Final R [place] Performing Organization Address [facility]/ZIP Co de Phone Number INTERFACE SYSTEM Refer to clinic/hospital department * (ABNORMAL) CBC WITH DIFFERENTIAL (12/19/2005 3:29 AM CDT) NEUTROPHILS 78(H) 45 - 70 % INTERFAC E SYSTEM LYMPHOCYTES 15(L) 16 - 45 % INTERFAC E SYSTEM MONOCYTES 8 3 - 13 % INTERFACE SYSTEM EOSINOPHILS 0 0 - 7 % INTERFAC E SYSTEM BASOPHILS 0 0 - 2 % INTERFACE SYSTEM NEUTROPHIL ABSOLUTE 5.18 1.90 - 7.00 K/uL INTERFACE SYSTEM LYMPHOCYTE ABSOLUTE 0.98 0.70 - 4.50 K/uL INTERFACE SYSTEM MONOCYTE ABSOLUTE 0.52 0.10 - 1.30 K/uL INTERFACE SYSTEM EOSINOPHIL ABSOLUTE 0.00 0.00 - 0.70 K/uL INTERFACE SYSTEM BASOPHILS ABSOLUTE 0.01 0.00 - 0.20 K/uL INTERFACE SYSTEM 12/19/2005 3:29 AM CDT Wicho Gomez MD HEMATOLOGY ORDERABLES Final R esult Performing Organization Address City/State/[facility] Co de Phone Number INTERFACE SYSTEM Refer to clinic/hospital department * (ABNORMAL) CBC WITH DIFFERENTIAL (12/19/2005 3:29 AM CDT) WBC 6.7 4.0 - 9.8 K/uL INTERFACE SYSTEM RBC 3.14(L) 4.50 - 5.40 M/uL INTERFACE SYSTEM HEMOGLOBIN 9.6(L) 13.6 - 16.5 g/dL INTERFACE SYSTEM HEMATOCRIT 29.4(L) 40.0 - 48.0 % INTERFACE SYSTEM MCV 93.6 82.0 - 99.0 fL INTERFACE SYSTEM MCH 30.6 27.2 - 32.6 pg INTERFACE SYSTEM MCHC 32.7 31.5 - 35.5 % INTERFACE SYSTEM RDW 15.5(H) 11.5 - 14.5 % INTERFACE SYSTEM RDW-STDEV 52.3(H) 37.1 - 48.7 fL INTERFACE SYSTEM PLATELETS 195 140 - 350 K/uL INTERFACE SYSTEM MPV 9.4 9.3 - 12.4 fL INTERFACE SYSTEM 12/19/2005 3:29 AM CDT Wicho Gomez MD HEMATOLOGY ORDERABLES Final R esult INTERFACE SYSTEM Refer to clinic/hospital department * (ABNORMAL) PT AND APTT (12/19/2005 3:29 AM CDT) PROTIME 17.0(H) 12.7 - 15.1 Seconds INTERFACE SYSTEM INR 1.3(H) 0.9 - 1.1 INTERFACE SYSTEM Comment: INR Therapeutic Range: Adult: 2.0 - 3.0 for pulmonary embolism or prophylaxis against venous thrombosis or systemic embolization. 2.0 - 3.0 for patients with tissue heart valves. ?? 2.5 - 3.5 for patients with mechanical heart valves or post MD. Pediatric ??(12 years and under): 1.5 - 3.0 Although the target range in children is not well established , INR values of 1.5 - 3.0 are recommended for most patients. Higher values have been used in children with prosthetic cardiac valves and hereditary clotting disorders. (<3 days) therapeutic ranges have not been established. PTT 76.4(H) 24.4 - 36.4 Seconds INTERFACE SYSTEM Comment: PTT Therapeutic Range: Heparin Level ? PTT (seconds) <0.10 units/mL ? <53 0.10 - 0.30 units/mL ? 53 - 67 0.30 - 0.70 units/mL* ?67 - 95* 0.70 - 1.00 units/mL ?95 - 116 *corresponds to therapeutic range for unfractionated heparin ?? 12/19/2005 3:29 AM CDT us Romie Laughlin MD HEMATOLOGY ORDERABLES Final Result INTERFACE SYSTEM Refer to clinic/hospital department * PHOSPHORUS (12/19/2005 3:29 AM CDT) PHOSPHORUS 4.3 2.5 - 4.5 mg/dL INTERFACE SYSTEM 12/19/2005 3:29 AM CDT us Wicho Gomez MD CHEMISTRY ORDERABLES Final Re sult Performing Organization Address [facility] Phone Number INTERFACE SYSTEM Refer to clinic/hospital department * MAGNESIUM LEVEL (12/19/2005 3:29 AM CDT) MAGNESIUM 1.8 1.5 - 2.5 mg/dL INTERFACE SYSTEM 12/19/2005 3:29 AM CDT us Wicho Gomez MD CHEMISTRY ORDERABLES Final Re sult Performing Organization Address [facility] Phone Number INTERFACE SYSTEM Refer to clinic/hospital department * (ABNORMAL) CALCIUM IONIZED (12/19/2005 3:29 AM CDT) CALCIUM IONIZED 4.68(L) 4.76 - 5.16 mg/dL INTERFACE SYSTEM 12/19/2005 3:29 AM CDT us Wicho Gomez MD CHEMISTRY ORDERABLES Final Re sult Performing Organization Address [facility] Phone Number INTERFACE SYSTEM Refer to clinic/hospital department * (ABNORMAL) BASIC METABOLIC PANEL (12/19/2005 3:29 AM CDT) GLUCOSE 157(H) 65 - 99 mg/dL INTERFACE SYSTEM CREATININE 0.7 0.5 - 1.3 mg/dL INTERFACE SYSTEM CALCIUM 7.5(L) 8.4 - 10.2 mg/dL INTERFACE SYSTEM BUN 21(H) 6 - 20 mg/dL INTERFACE SYSTEM SODIUM 137 135 - 145 mmol/L INTERFACE SYSTEM POTASSIUM 4.3 3.5 - 4.9 mmol/L INTERFACE SYSTEM CHLORIDE 104 96 - 108 mmol/L INTERFACE SYSTEM CO2 29 22 - 30 mmol/L INTERFACE SYSTEM 12/19/2005 3:29 AM CDT us Wicho Gomez MD CHEMISTRY ORDERABLES Final Re sult Performing Organization Address [facility] Phone Number INTERFACE SYSTEM Refer to clinic/hospital department * (ABNORMAL) POC GLUCOSE (12/18/2005 11:35 PM CDT) GLUCOSE POC 140(H) 65 - 109 mg/dL INTERFACE SYSTEM 12/18/2005 11:3 5 PM CDT us Wicho Gomez MD POINT OF CARE TESTING Final R esult Performing Organization Address [facility] Phone Number INTERFACE SYSTEM Refer to clinic/hospital department * (ABNORMAL) POC GLUCOSE (12/18/2005 5:20 PM CDT) GLUCOSE POC 161(H) 65 - 109 mg/dL INTERFACE SYSTEM 12/18/2005 5:20 PM CDT us Wicho Gomez MD POINT OF CARE TESTING Final R [facility] Performing Organization Address [facility] Phone Number INTERFACE SYSTEM Refer to clinic/hospital department * POC GLUCOSE (12/18/2005 11:41 AM CDT) GLUCOSE POC 91 65 - 109 mg/dL INTERFACE SYSTEM 12/18/2005 11:4 1 AM CDT us Wicho Gomez MD POINT OF CARE TESTING Final R [facility] Performing Organization Address [facility] Phone Number INTERFACE SYSTEM Refer to clinic/hospital department * (ABNORMAL) POC GLUCOSE (12/18/2005 5:29 AM CDT) GLUCOSE POC 185(H) 65 - 109 mg/dL INTERFACE SYSTEM 12/18/2005 5:29 AM CDT us Wicho Gomez MD POINT OF CARE TESTING Final R esult Performing Organization Address City/[facility] de Phone Number INTERFACE SYSTEM Refer to clinic/hospital department * (ABNORMAL) BLOOD GAS ARTERIAL (12/18/2005 3:15 AM CDT) PH ARTERIAL 7.43 7.35 - 7.45 INTERFACE SYSTEM PCO2 ARTERIAL 44 35 - 48 mm Hg INTERFACE SYSTEM PO2 ARTERIAL 83 83 - 108 mm Hg INTERFACE SYSTEM SO2 ABG 97 95 - 99 % INTERFACE SYSTEM FO2HB ABG 96 94 - 98 % INTERFACE SYSTEM HCO3 ARTERIAL 28(H) 22 - 26 mmol/L INTERFACE SYSTEM BASE EXCESS ABG 3.7(H) -2.0 - 3.0 mmol/L INTERFACE SYSTEM O2 CONC ARTERIAL 40% INTERFACE SYSTEM 12/18/2005 3:15 AM CDT Wicho Gomez MD ABG ORDERABLES Final Result Performing Organization Address [facility] Phone Number INTERFACE SYSTEM Refer to clinic/hospital department * (ABNORMAL) CBC WITH DIFFERENTIAL (12/18/2005 3:15 AM CDT) NEUTROPHIL ABSOLUTE 6.30 1.90 - 7.00 K/uL INTERFACE SYSTEM LYMPHOCYTE ABSOLUTE 0.90 0.70 - 4.50 K/uL INTERFACE SYSTEM MONOCYTE ABSOLUTE 0.23 0.10 - 1.30 K/uL INTERFACE SYSTEM EOSINOPHIL ABSOLUTE 0.00 0.00 - 0.70 K/uL INTERFACE SYSTEM BASOPHILS ABSOLUTE 0.07 0.00 - 0.20 K/uL INTERFACE SYSTEM NEUTROPHILS, SEG 79(H) 45 - 70 % INT ERFACE SYSTEM BANDS 5 0 - 5 % INTERFACE SYSTEM LYMPHOCYTES 12(L) 16 - 45 % INTERFAC E SYSTEM MONOCYTES 3 3 - 13 % INTERFACE SYSTEM EOSINOPHILS 0 0 - 7 % INTERFAC E SYSTEM BASOPHILS 1 0 - 2 % INTERFACE SYSTEM PLATELET EST. Consistent w/ count Normal INTERFACE SYSTEM ANISOCYTOSIS Slight INTERFA CE SYSTEM POIKILOCYTES Slight INTERFA CE SYSTEM POLYCHROMASIA Slight INTERF CINDY SYSTEM 12/18/2005 3:15 AM CDT Wicho Gomez MD HEMATOLOGY ORDERABLES Final R esult Performing Organization Address [facility] de Phone Number INTERFACE SYSTEM Refer to clinic/hospital department * (ABNORMAL) CBC WITH DIFFERENTIAL (12/18/2005 3:15 AM CDT) WBC 7.5 4.0 - 9.8 K/uL INTERFACE SYSTEM RBC 2.94(L) 4.50 - 5.40 M/uL INTERFACE SYSTEM HEMOGLOBIN 8.8(L) 13.6 - 16.5 g/dL INTERFACE SYSTEM HEMATOCRIT 27.6(L) 40.0 - 48.0 % INTERFACE SYSTEM MCV 93.9 82.0 - 99.0 fL INTERFACE SYSTEM MCH 29.9 27.2 - 32.6 pg INTERFACE SYSTEM MCHC 31.9 31.5 - 35.5 % INTERFACE SYSTEM RDW 15.6(H) 11.5 - 14.5 % INTERFACE SYSTEM RDW-STDEV 52.8(H) 37.1 - 48.7 fL INTERFACE SYSTEM PLATELETS 198 140 - 350 K/uL INTERFACE SYSTEM MPV 9.7 9.3 - 12.4 fL INTERFACE SYSTEM 12/18/2005 3:15 AM CDT us Wicho Gomez MD HEMATOLOGY ORDERABLES Final R esult INTERFACE SYSTEM Refer to clinic/hospital department * (ABNORMAL) PT AND APTT (12/18/2005 3:15 AM CDT) PROTIME 17.3(H) 12.7 - 15.1 Seconds INTERFACE SYSTEM INR 1.3(H) 0.9 - 1.1 INTERFACE SYSTEM Comment: INR Therapeutic Range: Adult: 2.0 - 3.0 for pulmonary embolism or prophylaxis against venous thrombosis or systemic embolization. 2.0 - 3.0 for patients with tissue heart valves. ?? 2.5 - 3.5 for patients with mechanical heart valves or post MD. Pediatric ??(12 years and under): 1.5 - 3.0 Although the target range in children is not well established , INR values of 1.5 - 3.0 are recommended for most patients. Higher values have been used in children with prosthetic cardiac valves and hereditary clotting disorders. (<3 days) therapeutic ranges have not been established. PTT 87.2(H) 24.4 - 36.4 Seconds INTERFACE SYSTEM Comment: PTT Therapeutic Range: Heparin Level ? PTT (seconds) <0.10 units/mL ? <53 0.10 - 0.30 units/mL ? 53 - 67 0.30 - 0.70 units/mL* ?67 - 95* 0.70 - 1.00 units/mL ?95 - 116 *corresponds to therapeutic range for unfractionated heparin ?? 12/18/2005 3:15 AM CDT us Wicho Gomez MD HEMATOLOGY ORDERABLES Final R esult Performing Organization Address [facility] Phone Number INTERFACE SYSTEM Refer to clinic/hospital department * (ABNORMAL) PHOSPHORUS (12/18/2005 3:15 AM CDT) PHOSPHORUS 4.6(H) 2.5 - 4.5 mg/dL INTERFACE SYSTEM 12/18/2005 3:15 AM CDT Wicho Gomez MD CHEMISTRY ORDERABLES Final Re sult Performing Organization Address [facility] Phone Number INTERFACE SYSTEM Refer to clinic/hospital department * MAGNESIUM LEVEL (12/18/2005 3:15 AM CDT) MAGNESIUM 1.8 1.5 - 2.5 mg/dL INTERFACE SYSTEM 12/18/2005 3:15 AM CDT us Wicho Gomez MD CHEMISTRY ORDERABLES Final Re sult Performing Organization Address [facility] INTERFACE SYSTEM Refer to clinic/hospital department * (ABNORMAL) CALCIUM IONIZED (12/18/2005 3:15 AM CDT) CALCIUM IONIZED 4.72(L) 4.76 - 5.16 mg/dL INTERFACE SYSTEM 12/18/2005 3:15 AM CDT us Wicho Gomez MD CHEMISTRY ORDERABLES Final Re sult Performing Organization Address [facility] Phone Number INTERFACE SYSTEM Refer to clinic/hospital department * (ABNORMAL) BASIC METABOLIC PANEL (12/18/2005 3:15 AM CDT) GLUCOSE 145(H) 65 - 99 mg/dL INTERFACE SYSTEM CREATININE 0.7 0.5 - 1.3 mg/dL INTERFACE SYSTEM CALCIUM 7.1(L) 8.4 - 10.2 mg/dL INTERFACE SYSTEM BUN 19 6 - 20 mg/dL INTERFACE SYSTEM SODIUM 139 135 - 145 mmol/L INTERFACE SYSTEM POTASSIUM 4.6 3.5 - 4.9 mmol/L INTERFACE SYSTEM CHLORIDE 105 96 - 108 mmol/L INTERFACE SYSTEM CO2 28 22 - 30 mmol/L INTERFACE SYSTEM 12/18/2005 3:15 AM CDT Wicho Gomez MD CHEMISTRY ORDERABLES Final Re sult Performing Organization Address [facility] de Phone Number INTERFACE SYSTEM Refer to clinic/hospital department * (ABNORMAL) POC GLUCOSE (12/17/2005 11:37 PM CDT) GLUCOSE POC 167(H) 65 - 109 mg/dL INTERFACE SYSTEM 12/17/2005 11:3 7 PM CDT Wicho Gomez MD POINT OF CARE TESTING Final R esult Performing Organization Address [facility] Phone Number INTERFACE SYSTEM Refer to clinic/hospital department * (ABNORMAL) PTT (12/17/2005 6:30 PM CDT) PTT 93.5(H) 24.4 - 36.4 Seconds INTERFACE SYSTEM Comment: PTT Therapeutic Range: Heparin Level ? PTT (seconds) <0.10 units/mL ? <53 0.10 - 0.30 units/mL ? 53 - 67 0.30 - 0.70 units/mL* ?67 - 95* 0.70 - 1.00 units/mL ?95 - 116 *corresponds to therapeutic range for unfractionated heparin ?? 12/17/2005 6:30 PM CDT Wicho Gomez MD HEMATOLOGY ORDERABLES [facility] Performing Organization Address [facility] Phone Number INTERFACE SYSTEM Refer to clinic/hospital department * (ABNORMAL) POC GLUCOSE (12/17/2005 5:01 PM CDT) GLUCOSE POC 159(H) 65 - 109 mg/dL INTERFACE SYSTEM 12/17/2005 5:01 PM CDT Wicho Gomez MD POINT OF CARE TESTING Final R [facility] Performing Organization Address [facility] Phone Number INTERFACE SYSTEM Refer to clinic/hospital department * (ABNORMAL) POC GLUCOSE (12/17/2005 12:13 PM CDT) GLUCOSE POC 144(H) 65 - 109 mg/dL INTERFACE SYSTEM 12/17/2005 12:1 3 PM CDT Wicho Gomez MD POINT OF CARE TESTING Final [facility] Performing Organization Address [facility] Phone Number INTERFACE SYSTEM Refer to clinic/hospital department * (ABNORMAL) PTT (12/17/2005 7:45 AM CDT) PTT 74.5(H) 24.4 - 36.4 Seconds INTERFACE SYSTEM Comment: PTT Therapeutic Range: Heparin Level ? PTT (seconds) <0.10 units/mL ? <53 0.10 - 0.30 units/mL ? 53 - 67 0.30 - 0.70 units/mL* ?67 - 95* 0.70 - 1.00 units/mL ?95 - 116 *corresponds to therapeutic range for unfractionated heparin ?? 12/17/2005 7:45 AM CDT Wicho Gomez MD HEMATOLOGY ORDERABLES Final R esult Performing Organization Address [facility] de Phone Number INTERFACE SYSTEM Refer to clinic/hospital department * (ABNORMAL) POC GLUCOSE (12/17/2005 6:00 AM CDT) [facility] GLUCOSE POC 148(H) 65 - 109 mg/dL INTERFACE SYSTEM 12/17/2005 6:00 AM CDT Wicho Gomez MD POINT OF CARE TESTING Final R esult Performing Organization Address [facility] Phone Number INTERFACE SYSTEM Refer to clinic/hospital department * (ABNORMAL) BLOOD GAS ARTERIAL (12/17/2005 3:35 AM CDT) Pathologist [facility] PH ARTERIAL 7.43 7.35 - 7.45 INTERFACE SYSTEM PCO2 ARTERIAL 43 35 - 48 mm Hg INTERFACE SYSTEM PO2 ARTERIAL 87 83 - 108 mm Hg INTERFACE SYSTEM SO2 ABG 98 95 - 99 % INTERFACE SYSTEM FO2HB ABG 98 94 - 98 % INTERFACE SYSTEM HCO3 ARTERIAL 28(H) 22 - 26 mmol/L INTERFACE SYSTEM BASE EXCESS ABG 3.0 -2.0 - 3.0 mmol/L INTERFACE SYSTEM O2 CONC ARTERIAL 40% INTERFACE SYSTEM 12/17/2005 3:35 AM CDT Wicho Gomez MD ABG ORDERABLES Final Result Performing Organization Address [facility] Phone Number INTERFACE SYSTEM Refer to clinic/hospital department * (ABNORMAL) CBC WITH DIFFERENTIAL (12/17/2005 3:35 AM CDT) Pathologist [facility] NEUTROPHILS 81(H) 45 - 70 % INTERFAC E SYSTEM LYMPHOCYTES 11(L) 16 - 45 % INTERFAC E SYSTEM MONOCYTES 7 3 - 13 % INTERFACE SYSTEM EOSINOPHILS 0 0 - 7 % INTERFAC E SYSTEM BASOPHILS 0 0 - 2 % INTERFACE SYSTEM NEUTROPHIL ABSOLUTE 6.28 1.90 - 7.00 K/uL INTERFACE SYSTEM LYMPHOCYTE ABSOLUTE 0.89 0.70 - 4.50 K/uL INTERFACE SYSTEM MONOCYTE ABSOLUTE 0.57 0.10 - 1.30 K/uL INTERFACE SYSTEM EOSINOPHIL ABSOLUTE 0.02 0.00 - 0.70 K/uL INTERFACE SYSTEM BASOPHILS ABSOLUTE 0.02 0.00 - 0.20 K/uL INTERFACE SYSTEM 12/17/2005 3:35 AM CDT Wicho Gomez MD HEMATOLOGY ORDERABLES Final R esult Performing Organization Address City/[facility] Co de Phone Number INTERFACE SYSTEM Refer to clinic/hospital department * (ABNORMAL) CBC WITH DIFFERENTIAL (12/17/2005 3:35 AM CDT) WBC 7.8 4.0 - 9.8 K/uL INTERFACE SYSTEM RBC 2.96(L) 4.50 - 5.40 M/uL INTERFACE SYSTEM HEMOGLOBIN 9.0(L) 13.6 - 16.5 g/dL INTERFACE SYSTEM HEMATOCRIT 27.7(L) 40.0 - 48.0 % INTERFACE SYSTEM MCV 93.6 82.0 - 99.0 fL INTERFACE SYSTEM MCH 30.4 27.2 - 32.6 pg INTERFACE SYSTEM MCHC 32.5 31.5 - 35.5 % INTERFACE SYSTEM RDW 15.4(H) 11.5 - 14.5 % INTERFACE SYSTEM RDW-STDEV 53.0(H) 37.1 - 48.7 fL INTERFACE SYSTEM PLATELETS 201 140 - 350 K/uL INTERFACE SYSTEM MPV 9.8 9.3 - 12.4 fL INTERFACE SYSTEM 12/17/2005 3:35 AM CDT Wicho Gomez MD HEMATOLOGY ORDERABLES Final R esult Performing Organization Address [facility] Phone Number INTERFACE SYSTEM Refer to clinic/hospital department * PHOSPHORUS (12/17/2005 3:35 AM CDT) PHOSPHORUS 3.4 2.5 - 4.5 mg/dL INTERFACE SYSTEM 12/17/2005 3:35 AM CDT Wicho Gomez MD CHEMISTRY ORDERABLES Final Re sult Performing Organization Address City/[facility] Co de Phone Number INTERFACE SYSTEM Refer to clinic/hospital department * MAGNESIUM LEVEL (12/17/2005 3:35 AM CDT) MAGNESIUM 1.8 1.5 - 2.5 mg/dL INTERFACE SYSTEM 12/17/2005 3:35 AM CDT Wicho Gomez MD CHEMISTRY ORDERABLES Final Re sult Performing Organization Address [facility] Phone Number INTERFACE SYSTEM Refer to clinic/hospital department * (ABNORMAL) CALCIUM IONIZED (12/17/2005 3:35 AM CDT) CALCIUM IONIZED 4.48(L) 4.76 - 5.16 mg/dL INTERFACE SYSTEM 12/17/2005 3:35 AM CDT Wicho Gomez MD CHEMISTRY ORDERABLES Final Re sult Performing Organization Address [facility] Phone Number INTERFACE SYSTEM Refer to clinic/hospital department * (ABNORMAL) BASIC METABOLIC PANEL (12/17/2005 3:35 AM CDT) GLUCOSE 169(H) 65 - 99 mg/dL INTERFACE SYSTEM CREATININE 0.7 0.5 - 1.3 mg/dL INTERFACE SYSTEM CALCIUM 7.0(L) 8.4 - 10.2 mg/dL INTERFACE SYSTEM BUN 19 6 - 20 mg/dL INTERFACE SYSTEM SODIUM 136 135 - 145 mmol/L INTERFACE SYSTEM POTASSIUM 4.0 3.5 - 4.9 mmol/L INTERFACE SYSTEM CHLORIDE 105 96 - 108 mmol/L INTERFACE SYSTEM CO2 28 22 - 30 mmol/L INTERFACE SYSTEM 12/17/2005 3:35 AM CDT us Wicho Gomez MD CHEMISTRY ORDERABLES Final Re sult Performing Organization Address [facility] [facility] Phone Number INTERFACE SYSTEM Refer to clinic/hospital department * (ABNORMAL) PT AND APTT (12/17/2005 1:00 AM CDT) PROTIME 17.7(H) 12.7 - 15.1 Seconds INTERFACE SYSTEM INR 1.4(H) 0.9 - 1.1 INTERFACE SYSTEM Comment: INR Therapeutic Range: Adult: 2.0 - 3.0 for pulmonary embolism or prophylaxis against venous thrombosis or systemic embolization. 2.0 - 3.0 for patients with tissue heart valves. ?? 2.5 - 3.5 for patients with mechanical heart valves or post MD. Pediatric ??(12 years and under): 1.5 - 3.0 Although the target range in children is not well established , INR values of 1.5 - 3.0 are recommended for most patients. Higher values have been used in children with prosthetic cardiac valves and hereditary clotting disorders. (<3 days) therapeutic ranges have not been established. PTT 92.5(H) 24.4 - 36.4 Seconds INTERFACE SYSTEM Comment: PTT Therapeutic Range: Heparin Level ? PTT (seconds) <0.10 units/mL ? <53 0.10 - 0.30 units/mL ? 53 - 67 0.30 - 0.70 units/mL* ?67 - 95* 0.70 - 1.00 units/mL ?95 - 116 *corresponds to therapeutic range for unfractionated heparin ?? 12/17/2005 1:00 AM CDT Wicho Gomez MD HEMATOLOGY ORDERABLES Final [facility] Performing Organization Address [facility] Phone Number INTERFACE SYSTEM Refer to clinic/hospital department * (ABNORMAL) POC GLUCOSE (12/16/2005 11:59 PM CDT) GLUCOSE POC 134(H) 65 - 109 mg/dL INTERFACE SYSTEM 12/16/2005 11:5 9 PM CDT Wicho Gomez MD POINT OF CARE TESTING Final R [facility] Performing Organization Address [facility] de Phone Number INTERFACE SYSTEM Refer to clinic/hospital department * (ABNORMAL) PT AND APTT (12/16/2005 7:00 PM CDT) PROTIME 17.4(H) 12.7 - 15.1 Seconds INTERFACE SYSTEM INR 1.3(H) 0.9 - 1.1 INTERFACE SYSTEM Comment: INR Therapeutic Range: Adult: 2.0 - 3.0 for pulmonary embolism or prophylaxis against venous thrombosis or systemic embolization. 2.0 - 3.0 for patients with tissue heart valves. ?? 2.5 - 3.5 for patients with mechanical heart valves or post MD. Pediatric ??(12 years and under): 1.5 - 3.0 Although the target range in children is not well established , INR values of 1.5 - 3.0 are recommended for most patients. Higher values have been used in children with prosthetic cardiac valves and hereditary clotting disorders. (<3 days) therapeutic ranges have not been established. PTT 88.1(H) 24.4 - 36.4 Seconds INTERFACE SYSTEM Comment: PTT Therapeutic Range: Heparin Level ? PTT (seconds) <0.10 units/mL ? <53 0.10 - 0.30 units/mL ? 53 - 67 0.30 - 0.70 units/mL* ?67 - 95* 0.70 - 1.00 units/mL ?95 - 116 *corresponds to therapeutic range for unfractionated heparin ?? 12/16/2005 7:00 PM CDT Wicho Gomez MD HEMATOLOGY ORDERABLES Final [facility] Performing Organization Address [facility] de Phone Number INTERFACE SYSTEM Refer to clinic/hospital department * (ABNORMAL) POC GLUCOSE (12/16/2005 5:42 PM CDT) GLUCOSE POC 154(H) 65 - 109 mg/dL INTERFACE SYSTEM 12/16/2005 5:42 PM CDT Wicho Gomez MD POINT OF CARE TESTING Final [facility] Performing Organization Address [facility] Co de Phone Number INTERFACE SYSTEM Refer to clinic/hospital department * (ABNORMAL) PTT (12/16/2005 10:46 AM CDT) PTT 53.6(H) 24.4 - 36.4 Seconds INTERFACE SYSTEM Comment: PTT Therapeutic Range: Heparin Level ? PTT (seconds) <0.10 units/mL ? <53 0.10 - 0.30 units/mL ? 53 - 67 0.30 - 0.70 units/mL* ?67 - 95* 0.70 - 1.00 units/mL ?95 - 116 *corresponds to therapeutic range for unfractionated heparin ?? 12/16/2005 10:4 6 AM CDT us Romie Laughlin MD HEMATOLOGY ORDERABLES Final Result Performing Organization Address [facility] Phone Number INTERFACE SYSTEM Refer to clinic/hospital department * (ABNORMAL) BLOOD GAS ARTERIAL (12/16/2005 3:10 AM CDT) PH ARTERIAL 7.44 7.35 - 7.45 INTERFACE SYSTEM PCO2 ARTERIAL 40 35 - 48 mm Hg INTERFACE SYSTEM PO2 ARTERIAL 86 83 - 108 mm Hg INTERFACE SYSTEM SO2 ABG 98 95 - 99 % INTERFACE SYSTEM FO2HB ABG 96 94 - 98 % INTERFACE SYSTEM HCO3 ARTERIAL 27(H) 22 - 26 mmol/L INTERFACE SYSTEM BASE EXCESS ABG 2.5 -2.0 - 3.0 mmol/L INTERFACE SYSTEM O2 CONC ARTERIAL .40 INTERFACE SYSTEM 12/16/2005 3:10 AM CDT us Wicho Gomez MD ABG ORDERABLES Final Result Performing Organization Address [facility] de Phone Number INTERFACE SYSTEM Refer to clinic/hospital department * (ABNORMAL) PTT (12/16/2005 3:10 AM CDT) PTT 78.1(H) 24.4 - 36.4 Seconds INTERFACE SYSTEM Comment: PTT Therapeutic Range: Heparin Level ? PTT (seconds) <0.10 units/mL ? <53 0.10 - 0.30 units/mL ? 53 - 67 0.30 - 0.70 units/mL* ?67 - 95* 0.70 - 1.00 units/mL ?95 - 116 *corresponds to therapeutic range for unfractionated heparin ?? 12/16/2005 3:10 AM CDT Wicho Gomez MD HEMATOLOGY ORDERABLES Final [facility] Performing Organization Address [facility] de Phone Number INTERFACE SYSTEM Refer to clinic/hospital department * (ABNORMAL) PROTIME-INR (12/16/2005 3:10 AM CDT) PROTIME 17.8(H) 12.7 - 15.1 Seconds INTERFACE SYSTEM INR 1.4(H) 0.9 - 1.1 INTERFACE SYSTEM Comment: INR Therapeutic Range: Adult: 2.0 - 3.0 for pulmonary embolism or prophylaxis against venous thrombosis or systemic embolization. 2.0 - 3.0 for patients with tissue heart valves. ?? 2.5 - 3.5 for patients with mechanical heart valves or post MD. Pediatric ??(12 years and under): 1.5 - 3.0 Although the target range in children is not well established , INR values of 1.5 - 3.0 are recommended for most patients. Higher values have been used in children with prosthetic cardiac valves and hereditary clotting disorders. (<3 days) therapeutic ranges have not been established. 12/16/2005 3:10 AM CDT Wicho Gomez MD HEMATOLOGY ORDERABLES Final [facility] Performing Organization Address [facility] de Phone Number INTERFACE SYSTEM Refer to clinic/hospital department * (ABNORMAL) CBC WITH DIFFERENTIAL (12/16/2005 3:10 AM CDT) NEUTROPHIL ABSOLUTE 6.08 1.90 - 7.00 K/uL INTERFACE SYSTEM LYMPHOCYTE ABSOLUTE 0.84 0.70 - 4.50 K/uL INTERFACE SYSTEM MONOCYTE ABSOLUTE 0.61 0.10 - 1.30 K/uL INTERFACE SYSTEM EOSINOPHIL ABSOLUTE 0.00 0.00 - 0.70 K/uL INTERFACE SYSTEM BASOPHILS ABSOLUTE 0.00 0.00 - 0.20 K/uL INTERFACE SYSTEM NEUTROPHILS, SEG 79(H) 45 - 70 % INT ERFACE SYSTEM BANDS 1 0 - 5 % INTERFACE SYSTEM LYMPHOCYTES 11(L) 16 - 45 % INTERFAC E SYSTEM MONOCYTES 8 3 - 13 % INTERFACE SYSTEM EOSINOPHILS 0 0 - 7 % INTERFAC E SYSTEM BASOPHILS 0 0 - 2 % INTERFACE SYSTEM METAMYELOCYTE 1(H) <=0 % INTERF CINDY SYSTEM PLATELET EST. Consistent w/ count Normal INTERFACE SYSTEM ANISOCYTOSIS Slight INTERFA CE SYSTEM POIKILOCYTES Slight INTERFA CE SYSTEM POLYCHROMASIA Slight INTERF CINDY SYSTEM 12/16/2005 3:10 AM CDT Wicho Gomez MD HEMATOLOGY ORDERABLES Final R esult Performing Organization Address City/[facility]/ZIP Co de Phone Number INTERFACE SYSTEM Refer to clinic/hospital department * (ABNORMAL) CBC WITH DIFFERENTIAL (12/16/2005 3:10 AM CDT) WBC 7.6 4.0 - 9.8 K/uL INTERFACE SYSTEM RBC 3.19(L) 4.50 - 5.40 M/uL INTERFACE SYSTEM HEMOGLOBIN 9.5(L) 13.6 - 16.5 g/dL INTERFACE SYSTEM HEMATOCRIT 29.7(L) 40.0 - 48.0 % INTERFACE SYSTEM MCV 93.1 82.0 - 99.0 fL INTERFACE SYSTEM MCH 29.8 27.2 - 32.6 pg INTERFACE SYSTEM MCHC 32.0 31.5 - 35.5 % INTERFACE SYSTEM RDW 15.6(H) 11.5 - 14.5 % INTERFACE SYSTEM RDW-STDEV 52.8(H) 37.1 - 48.7 fL INTERFACE SYSTEM PLATELETS 239 140 - 350 K/uL INTERFACE SYSTEM MPV 10.2 9.3 - 12.4 fL INTERFACE SYSTEM 12/16/2005 3:10 AM CDT Wicho Gomez MD HEMATOLOGY ORDERABLES Final R esult INTERFACE SYSTEM Refer to clinic/hospital department * PHOSPHORUS (12/16/2005 3:10 AM CDT) PHOSPHORUS 3.1 2.5 - 4.5 mg/dL INTERFACE SYSTEM 12/16/2005 3:10 AM CDT Wicho Gomez MD CHEMISTRY ORDERABLES Final Re sult Performing Organization Address [facility] Phone Number INTERFACE SYSTEM Refer to clinic/hospital department * MAGNESIUM LEVEL (12/16/2005 3:10 AM CDT) MAGNESIUM 1.7 1.5 - 2.5 mg/dL INTERFACE SYSTEM 12/16/2005 3:10 AM CDT us Wicho Gomez MD CHEMISTRY ORDERABLES Final Re sult Performing Organization Address [facility] Phone Number INTERFACE SYSTEM Refer to clinic/hospital department * (ABNORMAL) CALCIUM IONIZED (12/16/2005 3:10 AM CDT) CALCIUM IONIZED 4.60(L) 4.76 - 5.16 mg/dL INTERFACE SYSTEM 12/16/2005 3:10 AM CDT us Wicho Gomez MD CHEMISTRY ORDERABLES Final Re sult Performing Organization Address [facility] Phone Number INTERFACE SYSTEM Refer to clinic/hospital department * (ABNORMAL) BASIC METABOLIC PANEL (12/16/2005 3:10 AM CDT) GLUCOSE 131(H) 65 - 99 mg/dL INTERFACE SYSTEM CREATININE 0.7 0.5 - 1.3 mg/dL INTERFACE SYSTEM CALCIUM 7.1(L) 8.4 - 10.2 mg/dL INTERFACE SYSTEM BUN 17 6 - 20 mg/dL INTERFACE SYSTEM SODIUM 141 135 - 145 mmol/L INTERFACE SYSTEM POTASSIUM 3.9 3.5 - 4.9 mmol/L INTERFACE SYSTEM CHLORIDE 110(H) 96 - 108 mmol/L INTERFACE SYSTEM CO2 21(L) 22 - 30 mmol/L INTERFACE SYSTEM 12/16/2005 3:10 AM CDT Wicho Gomez MD CHEMISTRY ORDERABLES Final Re sult Performing Organization Address [facility] de Phone Number INTERFACE SYSTEM Refer to clinic/hospital department * (ABNORMAL) POC GLUCOSE (12/15/2005 11:36 PM CDT) GLUCOSE POC 128(H) 65 - 109 mg/dL INTERFACE SYSTEM 12/15/2005 11:3 6 PM CDT Wicho Gomez MD POINT OF CARE TESTING Final R esult Performing Organization Address [facility] de Phone Number INTERFACE SYSTEM Refer to clinic/hospital department * (ABNORMAL) PT AND APTT (12/15/2005 9:01 PM CDT) PROTIME 16.8(H) 12.7 - 15.1 Seconds INTERFACE SYSTEM INR 1.3(H) 0.9 - 1.1 INTERFACE SYSTEM Comment: INR Therapeutic Range: Adult: 2.0 - 3.0 for pulmonary embolism or prophylaxis against venous thrombosis or systemic embolization. 2.0 - 3.0 for patients with tissue heart valves. ?? 2.5 - 3.5 for patients with mechanical heart valves or post MD. Pediatric ??(12 years and under): 1.5 - 3.0 Although the target range in children is not well established , INR values of 1.5 - 3.0 are recommended for most patients. Higher values have been used in children with prosthetic cardiac valves and hereditary clotting disorders. (<3 days) therapeutic ranges have not been established. PTT 65.9(H) 24.4 - 36.4 Seconds INTERFACE SYSTEM Comment: PTT Therapeutic Range: Heparin Level ? PTT (seconds) <0.10 units/mL ? <53 0.10 - 0.30 units/mL ? 53 - 67 0.30 - 0.70 units/mL* ?67 - 95* 0.70 - 1.00 units/mL ?95 - 116 *corresponds to therapeutic range for unfractionated heparin ?? 12/15/2005 9:01 PM CDT us Romie Laughlin MD HEMATOLOGY ORDERABLES Final Result Performing Organization Address [facility] de Phone Number INTERFACE SYSTEM Refer to clinic/hospital department * (ABNORMAL) POC GLUCOSE (12/15/2005 4:58 PM CDT) GLUCOSE POC 181(H) 65 - 109 mg/dL INTERFACE SYSTEM 12/15/2005 4:58 PM CDT us Wicho Gomez MD POINT OF CARE TESTING Final R esult Performing Organization Address [facility] de Phone Number INTERFACE SYSTEM Refer to clinic/hospital department * (ABNORMAL) PT AND APTT (12/15/2005 4:00 PM CDT) PROTIME 16.6(H) 12.7 - 15.1 Seconds INTERFACE SYSTEM INR 1.2(H) 0.9 - 1.1 INTERFACE SYSTEM Comment: INR Therapeutic Range: Adult: 2.0 - 3.0 for pulmonary embolism or prophylaxis against venous thrombosis or systemic embolization. 2.0 - 3.0 for patients with tissue heart valves. ?? 2.5 - 3.5 for patients with mechanical heart valves or post MD. Pediatric ??(12 years and under): 1.5 - 3.0 Although the target range in children is not well established , INR values of 1.5 - 3.0 are recommended for most patients. Higher values have been used in children with prosthetic cardiac valves and hereditary clotting disorders. (<3 days) therapeutic ranges have not been established. PTT 64.0(H) 24.4 - 36.4 Seconds INTERFACE SYSTEM Comment: PTT Therapeutic Range: Heparin Level ? PTT (seconds) <0.10 units/mL ? <53 0.10 - 0.30 units/mL ? 53 - 67 0.30 - 0.70 units/mL* ?67 - 95* 0.70 - 1.00 units/mL ?95 - 116 *corresponds to therapeutic range for unfractionated heparin ?? 12/15/2005 4:00 PM CDT Wicho Gomez MD HEMATOLOGY ORDERABLES Final R [facility] Performing Organization Address [facility] de Phone Number INTERFACE SYSTEM Refer to clinic/hospital department * (ABNORMAL) POC GLUCOSE (12/15/2005 11:57 AM CDT) GLUCOSE POC 121(H) 65 - 109 mg/dL INTERFACE SYSTEM 12/15/2005 11:5 7 AM CDT Wicho Gomez MD POINT OF CARE TESTING Final [facility] Performing Organization Address [facility] Phone Number INTERFACE SYSTEM Refer to clinic/hospital department * (ABNORMAL) PT AND APTT (12/15/2005 11:12 AM CDT) PROTIME 16.5(H) 12.7 - 15.1 Seconds INTERFACE SYSTEM INR 1.2(H) 0.9 - 1.1 INTERFACE SYSTEM Comment: INR Therapeutic Range: Adult: 2.0 - 3.0 for pulmonary embolism or prophylaxis against venous thrombosis or systemic embolization. 2.0 - 3.0 for patients with tissue heart valves. ?? 2.5 - 3.5 for patients with mechanical heart valves or post MD. Pediatric ??(12 years and under): 1.5 - 3.0 Although the target range in children is not well established , INR values of 1.5 - 3.0 are recommended for most patients. Higher values have been used in children with prosthetic cardiac valves and hereditary clotting disorders. (<3 days) therapeutic ranges have not been established. PTT 80.7(H) 24.4 - 36.4 Seconds INTERFACE SYSTEM Comment: PTT Therapeutic Range: Heparin Level ? PTT (seconds) <0.10 units/mL ? <53 0.10 - 0.30 units/mL ? 53 - 67 0.30 - 0.70 units/mL* ?67 - 95* 0.70 - 1.00 units/mL ?95 - 116 *corresponds to therapeutic range for unfractionated heparin ?? 12/15/2005 11:1 2 AM CDT Wicho Gomez MD HEMATOLOGY ORDERABLES Final R [facility] Performing Organization Address [facility] Phone Number INTERFACE SYSTEM Refer to clinic/hospital department * (ABNORMAL) POC GLUCOSE (12/15/2005 6:32 AM CDT) GLUCOSE POC 150(H) 65 - 109 mg/dL INTERFACE SYSTEM 12/15/2005 6:32 AM CDT Wicho Gomez MD POINT OF CARE TESTING Final [facility] Performing Organization Address [facility] de Phone Number INTERFACE SYSTEM Refer to clinic/hospital department * (ABNORMAL) PT AND APTT (12/15/2005 4:30 AM CDT) PROTIME 16.7(H) 12.7 - 15.1 Seconds INTERFACE SYSTEM INR 1.2(H) 0.9 - 1.1 INTERFACE SYSTEM Comment: INR Therapeutic Range: Adult: 2.0 - 3.0 for pulmonary embolism or prophylaxis against venous thrombosis or systemic embolization. 2.0 - 3.0 for patients with tissue heart valves. ?? 2.5 - 3.5 for patients with mechanical heart valves or post MD. Pediatric ??(12 years and under): 1.5 - 3.0 Although the target range in children is not well established , INR values of 1.5 - 3.0 are recommended for most patients. Higher values have been used in children with prosthetic cardiac valves and hereditary clotting disorders. (<3 days) therapeutic ranges have not been established. PTT 75.6(H) 24.4 - 36.4 Seconds INTERFACE SYSTEM Comment: PTT Therapeutic Range: Heparin Level ? PTT (seconds) <0.10 units/mL ? <53 0.10 - 0.30 units/mL ? 53 - 67 0.30 - 0.70 units/mL* ?67 - 95* 0.70 - 1.00 units/mL ?95 - 116 *corresponds to therapeutic range for unfractionated heparin ?? 12/15/2005 4:30 AM CDT Wicho Gomez MD HEMATOLOGY ORDERABLES Final R esult Performing Organization Address [facility] Phone Number INTERFACE SYSTEM Refer to clinic/hospital department * (ABNORMAL) BLOOD GAS ARTERIAL (12/15/2005 4:30 AM CDT) PH ARTERIAL 7.43 7.35 - 7.45 INTERFACE SYSTEM PCO2 ARTERIAL 40 35 - 48 mm Hg INTERFACE SYSTEM PO2 ARTERIAL 69(L) 83 - 108 mm Hg INTERFACE SYSTEM SO2 ABG 96 95 - 99 % INTERFACE SYSTEM FO2HB ABG 95 94 - 98 % INTERFACE SYSTEM HCO3 ARTERIAL 26 22 - 26 mmol/L INTERFACE SYSTEM BASE EXCESS ABG 1.6 -2.0 - 3.0 mmol/L INTERFACE SYSTEM O2 CONC ARTERIAL 35% INTERFACE SYSTEM 12/15/2005 4:30 AM CDT Wicho Gomez MD ABG ORDERABLES Final Result Performing Organization Address [facility] de Phone Number INTERFACE SYSTEM Refer to clinic/hospital department * (ABNORMAL) CBC WITH DIFFERENTIAL (12/15/2005 4:30 AM CDT) NEUTROPHILS 78(H) 45 - 70 % INTERFAC E SYSTEM LYMPHOCYTES 13(L) 16 - 45 % INTERFAC E SYSTEM MONOCYTES 9 3 - 13 % INTERFACE SYSTEM EOSINOPHILS 0 0 - 7 % INTERFAC E SYSTEM BASOPHILS 0 0 - 2 % INTERFACE SYSTEM NEUTROPHIL ABSOLUTE 5.09 1.90 - 7.00 K/uL INTERFACE SYSTEM LYMPHOCYTE ABSOLUTE 0.82 0.70 - 4.50 K/uL INTERFACE SYSTEM MONOCYTE ABSOLUTE 0.60 0.10 - 1.30 K/uL INTERFACE SYSTEM EOSINOPHIL ABSOLUTE 0.00 0.00 - 0.70 K/uL INTERFACE SYSTEM BASOPHILS ABSOLUTE 0.02 0.00 - 0.20 K/uL INTERFACE SYSTEM 12/15/2005 4:30 AM CDT Harshad Heller MD HEMATOLOGY ORDERABLES Final Res ult INTERFACE SYSTEM Refer to clinic/hospital department * (ABNORMAL) CBC WITH DIFFERENTIAL (12/15/2005 4:30 AM CDT) WBC 6.5 4.0 - 9.8 K/uL INTERFACE SYSTEM RBC 2.89(L) 4.50 - 5.40 M/uL INTERFACE SYSTEM HEMOGLOBIN 8.8(L) 13.6 - 16.5 g/dL INTERFACE SYSTEM HEMATOCRIT 27.0(L) 40.0 - 48.0 % INTERFACE SYSTEM MCV 93.4 82.0 - 99.0 fL INTERFACE SYSTEM MCH 30.4 27.2 - 32.6 pg INTERFACE SYSTEM MCHC 32.6 31.5 - 35.5 % INTERFACE SYSTEM RDW 15.7(H) 11.5 - 14.5 % INTERFACE SYSTEM RDW-STDEV 53.4(H) 37.1 - 48.7 fL INTERFACE SYSTEM PLATELETS 238 140 - 350 K/uL INTERFACE SYSTEM MPV 9.9 9.3 - 12.4 fL INTERFACE SYSTEM 12/15/2005 4:30 AM CDT us Harshad Heller MD HEMATOLOGY ORDERABLES Final Res ult INTERFACE SYSTEM Refer to clinic/hospital department * PHOSPHORUS (12/15/2005 4:30 AM CDT) PHOSPHORUS 3.3 2.5 - 4.5 mg/dL INTERFACE SYSTEM 12/15/2005 4:30 AM CDT Harshad Heller MD CHEMISTRY ORDERABLES Final Resu lt Performing Organization Address City/[facility] Phone Number INTERFACE SYSTEM Refer to clinic/hospital department * MAGNESIUM LEVEL (12/15/2005 4:30 AM CDT) MAGNESIUM 1.9 1.5 - 2.5 mg/dL INTERFACE SYSTEM 12/15/2005 4:30 AM CDT Harshad Heller MD CHEMISTRY ORDERABLES Final Resu Performing Organization Address [facility] Phone Number INTERFACE SYSTEM Refer to clinic/hospital department * (ABNORMAL) CALCIUM IONIZED (12/15/2005 4:30 AM CDT) CALCIUM IONIZED 4.68(L) 4.76 - 5.16 mg/dL INTERFACE SYSTEM 12/15/2005 4:30 AM CDT Harshad Heller MD CHEMISTRY ORDERABLES Final [facility] Performing Organization Address [facility] Phone Number INTERFACE SYSTEM Refer to clinic/hospital department * (ABNORMAL) BASIC METABOLIC PANEL (12/15/2005 4:30 AM CDT) GLUCOSE 163(H) 65 - 99 mg/dL INTERFACE SYSTEM CREATININE 0.7 0.5 - 1.3 mg/dL INTERFACE SYSTEM CALCIUM 7.6(L) 8.4 - 10.2 mg/dL INTERFACE SYSTEM BUN 23(H) 6 - 20 mg/dL INTERFACE SYSTEM SODIUM 141 135 - 145 mmol/L INTERFACE SYSTEM POTASSIUM 3.7 3.5 - 4.9 mmol/L INTERFACE SYSTEM CHLORIDE 110(H) 96 - 108 mmol/L INTERFACE SYSTEM CO2 25 22 - 30 mmol/L INTERFACE SYSTEM 12/15/2005 4:30 AM CDT Harshad Heller MD CHEMISTRY ORDERABLES Final Resu Performing Organization Address [facility] Phone Number INTERFACE SYSTEM Refer to clinic/hospital department * (ABNORMAL) POC GLUCOSE (12/15/2005 12:29 AM CDT) GLUCOSE POC 144(H) 65 - 109 mg/dL INTERFACE SYSTEM 12/15/2005 12:2 9 AM CDT us Wicho Gomez MD POINT OF CARE TESTING Final R [facility] Performing Organization Address [facility] Phone Number INTERFACE SYSTEM Refer to clinic/hospital department * (ABNORMAL) PTT (12/14/2005 9:46 PM CDT) PTT 48.3(H) 24.4 - 36.4 Seconds INTERFACE SYSTEM Comment: PTT Therapeutic Range: Heparin Level ? PTT (seconds) <0.10 units/mL ? <53 0.10 - 0.30 units/mL ? 53 - 67 0.30 - 0.70 units/mL* ?67 - 95* 0.70 - 1.00 units/mL ?95 - 116 *corresponds to therapeutic range for unfractionated heparin ?? 12/14/2005 9:46 PM CDT us Wicho Gomez MD HEMATOLOGY ORDERABLES Final [facility] Performing Organization Address [facility] Phone Number INTERFACE SYSTEM Refer to clinic/hospital department * (ABNORMAL) POC GLUCOSE (12/14/2005 6:26 PM CDT) GLUCOSE POC 168(H) 65 - 109 mg/dL INTERFACE SYSTEM 12/14/2005 6:26 PM CDT us Wicho Gomez MD POINT OF CARE TESTING [facility] Performing Organization Address [facility] Phone Number INTERFACE SYSTEM Refer to clinic/hospital department * (ABNORMAL) PTT (12/14/2005 1:45 PM CDT) PTT 38.3(H) 24.4 - 36.4 Seconds INTERFACE SYSTEM Comment: PTT Therapeutic Range: Heparin Level ? PTT (seconds) <0.10 units/mL ? <53 0.10 - 0.30 units/mL ? 53 - 67 0.30 - 0.70 units/mL* ?67 - 95* 0.70 - 1.00 units/mL ?95 - 116 *corresponds to therapeutic range for unfractionated heparin ?? 12/14/2005 1:45 PM CDT us Harshad Heller MD HEMATOLOGY ORDERABLES Final Res ult Performing Organization Address [facility] Phone Number INTERFACE SYSTEM Refer to clinic/hospital department * (ABNORMAL) POC GLUCOSE (12/14/2005 12:39 PM CDT) GLUCOSE POC 141(H) 65 - 109 mg/dL INTERFACE SYSTEM 12/14/2005 12:3 9 PM CDT us Wicho Gomez MD POINT OF CARE TESTING Final R esult Performing Organization Address [facility] Phone Number INTERFACE SYSTEM Refer to clinic/hospital department * (ABNORMAL) BLOOD GAS ARTERIAL (12/14/2005 3:50 AM CDT) PH ARTERIAL 7.40 7.35 - 7.45 INTERFACE SYSTEM PCO2 ARTERIAL 45 35 - 48 mm Hg INTERFACE SYSTEM PO2 ARTERIAL 175(H) 83 - 108 mm Hg INTERFACE SYSTEM SO2 ABG 99 95 - 99 % INTERFACE SYSTEM FO2HB ABG 99(H) 94 - 98 % INTERFACE SYSTEM HCO3 ARTERIAL 27(H) 22 - 26 mmol/L INTERFACE SYSTEM BASE EXCESS ABG 1.8 -2.0 - 3.0 mmol/L INTERFACE SYSTEM O2 CONC ARTERIAL 40% INTERFACE SYSTEM 12/14/2005 3:50 AM CDT us Romie Laughlin MD ABG ORDERABLES Final Result INTERFACE SYSTEM Refer to clinic/hospital department * (ABNORMAL) CBC WITH DIFFERENTIAL (12/14/2005 3:50 AM CDT) NEUTROPHIL ABSOLUTE 5.61 1.90 - 7.00 K/uL INTERFACE SYSTEM LYMPHOCYTE ABSOLUTE 0.79 0.70 - 4.50 K/uL INTERFACE SYSTEM MONOCYTE ABSOLUTE 0.20 0.10 - 1.30 K/uL INTERFACE SYSTEM EOSINOPHIL ABSOLUTE 0.00 0.00 - 0.70 K/uL INTERFACE SYSTEM BASOPHILS ABSOLUTE 0.00 0.00 - 0.20 K/uL INTERFACE SYSTEM NEUTROPHILS, SEG 82(H) 45 - 70 % INT ERFACE SYSTEM BANDS 3 0 - 5 % INTERFACE SYSTEM LYMPHOCYTES 10(L) 16 - 45 % INTERFAC E SYSTEM MONOCYTES 3 3 - 13 % INTERFACE SYSTEM EOSINOPHILS 0 0 - 7 % INTERFAC E SYSTEM BASOPHILS 0 0 - 2 % INTERFACE SYSTEM ATYPICAL LYMPHOCYTE 2 0 - 5 % INTERFACE SYSTEM PLATELET EST. Consistent w/ count Normal INTERFACE SYSTEM ANISOCYTOSIS Slight INTERFA CE SYSTEM POIKILOCYTES Slight INTERFA CE SYSTEM BASOPHILIC STIPPLING Slight INTERFACE SYSTEM OVALOCYTES Slight INTERFACE SYSTEM 12/14/2005 3:50 AM CDT us Wicho Gomez MD HEMATOLOGY ORDERABLES Final R esult Performing Organization Address City/[facility] de Phone Number INTERFACE SYSTEM Refer to clinic/hospital department * (ABNORMAL) CBC WITH DIFFERENTIAL (12/14/2005 3:50 AM CDT) WBC 6.6 4.0 - 9.8 K/uL INTERFACE SYSTEM RBC 3.06(L) 4.50 - 5.40 M/uL INTERFACE SYSTEM HEMOGLOBIN 9.0(L) 13.6 - 16.5 g/dL INTERFACE SYSTEM HEMATOCRIT 28.7(L) 40.0 - 48.0 % INTERFACE SYSTEM MCV 93.8 82.0 - 99.0 fL INTERFACE SYSTEM MCH 29.4 27.2 - 32.6 pg INTERFACE SYSTEM MCHC 31.4(L) 31.5 - 35.5 % INTERFACE SYSTEM RDW 16.0(H) 11.5 - 14.5 % INTERFACE SYSTEM RDW-STDEV 54.5(H) 37.1 - 48.7 fL INTERFACE SYSTEM PLATELETS 238 140 - 350 K/uL INTERFACE SYSTEM MPV 9.8 9.3 - 12.4 fL INTERFACE SYSTEM 12/14/2005 3:50 AM CDT us Wicho Gomez MD HEMATOLOGY ORDERABLES Final R esult Performing Organization Address [facility] Co de Phone Number INTERFACE SYSTEM Refer to clinic/hospital department * (ABNORMAL) PT AND APTT (12/14/2005 3:50 AM CDT) PROTIME 17.1(H) 12.7 - 15.1 Seconds INTERFACE SYSTEM INR 1.3(H) 0.9 - 1.1 INTERFACE SYSTEM Comment: INR Therapeutic Range: Adult: 2.0 - 3.0 for pulmonary embolism or prophylaxis against venous thrombosis or systemic embolization. 2.0 - 3.0 for patients with tissue heart valves. ?? 2.5 - 3.5 for patients with mechanical heart valves or post MD. Pediatric ??(12 years and under): 1.5 - 3.0 Although the target range in children is not well established , INR values of 1.5 - 3.0 are recommended for most patients. Higher values have been used in children with prosthetic cardiac valves and hereditary clotting disorders. (<3 days) therapeutic ranges have not been established. PTT 38.2(H) 24.4 - 36.4 Seconds INTERFACE SYSTEM Comment: PTT Therapeutic Range: Heparin Level ? PTT (seconds) <0.10 units/mL ? <53 0.10 - 0.30 units/mL ? 53 - 67 0.30 - 0.70 units/mL* ?67 - 95* 0.70 - 1.00 units/mL ?95 - 116 *corresponds to therapeutic range for unfractionated heparin ?? 12/14/2005 3:50 AM CDT us Wicho Gomez MD HEMATOLOGY ORDERABLES Final R esult Performing Organization Address City/[facility]/ZIP Co de Phone Number INTERFACE SYSTEM Refer to clinic/hospital department * (ABNORMAL) PHOSPHORUS (12/14/2005 3:50 AM CDT) PHOSPHORUS 4.9(H) 2.5 - 4.5 mg/dL INTERFACE SYSTEM 12/14/2005 3:50 AM CDT Wicho Gomez MD CHEMISTRY ORDERABLES Final Re sult Performing Organization Address [facility] Phone Number INTERFACE SYSTEM Refer to clinic/hospital department * MAGNESIUM LEVEL (12/14/2005 3:50 AM CDT) MAGNESIUM 2.0 1.5 - 2.5 mg/dL INTERFACE SYSTEM 12/14/2005 3:50 AM CDT Wicho Gomez MD CHEMISTRY ORDERABLES Final Re sult Performing Organization Address [facility] Phone Number INTERFACE SYSTEM Refer to clinic/hospital department * CALCIUM IONIZED (12/14/2005 3:50 AM CDT) CALCIUM IONIZED 4.76 4.76 - 5.16 mg/dL INTERFACE SYSTEM 12/14/2005 3:50 AM CDT Wicho Gomez MD CHEMISTRY ORDERABLES Final Re sult Performing Organization Address [facility] INTERFACE SYSTEM Refer to clinic/hospital department * (ABNORMAL) BASIC METABOLIC PANEL (12/14/2005 3:50 AM CDT) GLUCOSE 138(H) 65 - 99 mg/dL INTERFACE SYSTEM CREATININE 0.9 0.5 - 1.3 mg/dL INTERFACE SYSTEM CALCIUM 7.7(L) 8.4 - 10.2 mg/dL INTERFACE SYSTEM BUN 25(H) 6 - 20 mg/dL INTERFACE SYSTEM SODIUM 145 135 - 145 mmol/L INTERFACE SYSTEM POTASSIUM 3.9 3.5 - 4.9 mmol/L INTERFACE SYSTEM CHLORIDE 114(H) 96 - 108 mmol/L INTERFACE SYSTEM CO2 24 22 - 30 mmol/L INTERFACE SYSTEM 12/14/2005 3:50 AM CDT Wicho Gomez MD CHEMISTRY ORDERABLES Final Re sult Performing Organization Address [facility] Phone Number INTERFACE SYSTEM Refer to clinic/hospital department * (ABNORMAL) POC GLUCOSE (12/13/2005 11:52 PM CDT) GLUCOSE POC 121(H) 65 - 109 mg/dL INTERFACE SYSTEM 12/13/2005 11:5 2 PM CDT Wicho Gomez MD POINT OF CARE TESTING Final R esult Performing Organization Address [facility] Phone Number INTERFACE SYSTEM Refer to clinic/hospital department * (ABNORMAL) BLOOD GAS ARTERIAL (12/13/2005 6:46 PM CDT) PH ARTERIAL 7.43 7.35 - 7.45 INTERFACE SYSTEM PCO2 ARTERIAL 39 35 - 48 mm Hg INTERFACE SYSTEM PO2 ARTERIAL 241(H) 83 - 108 mm Hg INTERFACE SYSTEM SO2 ABG 99 95 - 99 % INTERFACE SYSTEM FO2HB ABG 99(H) 94 - 98 % INTERFACE SYSTEM HCO3 ARTERIAL 25 22 - 26 mmol/L INTERFACE SYSTEM BASE EXCESS ABG 0.7 -2.0 - 3.0 mmol/L INTERFACE SYSTEM O2 CONC ARTERIAL 60% INTERFACE SYSTEM 12/13/2005 6:46 PM CDT Harshad Heller MD ABG ORDERABLES Final Result Performing Organization Address [facility] Phone Number INTERFACE SYSTEM Refer to clinic/hospital department * (ABNORMAL) POC GLUCOSE (12/13/2005 5:31 PM CDT) COMMENT, GLU POC Notified RN INTERFACE SYSTEM GLUCOSE POC 112(H) 65 - 109 mg/dL INTERFACE SYSTEM 12/13/2005 5:31 PM CDT Wicho Gomez MD POINT OF CARE TESTING Final R esult Performing Organization Address [facility] Phone Number INTERFACE SYSTEM Refer to clinic/hospital department * (ABNORMAL) BLOOD GAS ARTERIAL (12/13/2005 3:57 PM CDT) PH ARTERIAL 7.41 7.35 - 7.45 INTERFACE SYSTEM PCO2 ARTERIAL 38 35 - 48 mm Hg INTERFACE SYSTEM PO2 ARTERIAL 63(L) 83 - 108 mm Hg INTERFACE SYSTEM O2 SAT EST ARTERIAL 92(L) 94 - 98 % INTERFACE SYSTEM HCO3 ARTERIAL 23 22 - 26 mmol/L INTERFACE SYSTEM BASE EXCESS ABG -0.9 -2.0 - 3.0 mmol/L INTERFACE SYSTEM Comment:Base Excess Estimate d; Assumes 15.0 g/dl Hemoglobin O2 CONC ARTERIAL 40% INTERFACE SYSTEM 12/13/2005 3:57 PM CDT us Wicho Gomez MD ABG ORDERABLES Final Result INTERFACE SYSTEM Refer to clinic/hospital department * (ABNORMAL) CBC WITH DIFFERENTIAL (12/13/2005 3:35 PM CDT) NEUTROPHIL ABSOLUTE 9.26(H) 1.90 - 7.00 K/uL INTERFACE SYSTEM LYMPHOCYTE ABSOLUTE 0.42(L) 0.70 - 4.50 K/uL INTERFACE SYSTEM MONOCYTE ABSOLUTE 0.21 0.10 - 1.30 K/uL INTERFACE SYSTEM EOSINOPHIL ABSOLUTE 0.00 0.00 - 0.70 K/uL INTERFACE SYSTEM BASOPHILS ABSOLUTE 0.00 0.00 - 0.20 K/uL INTERFACE SYSTEM NEUTROPHILS, SEG 79(H) 45 - 70 % INT ERFACE SYSTEM BANDS 10(H) 0 - 5 % INTERFACE SYSTEM LYMPHOCYTES 3(L) 16 - 45 % INTERFAC E SYSTEM MONOCYTES 2(L) 3 - 13 % INTERFACE SYSTEM EOSINOPHILS 0 0 - 7 % INTERFAC E SYSTEM BASOPHILS 0 0 - 2 % INTERFACE SYSTEM METAMYELOCYTE 4(H) <=0 % INTERF CINDY SYSTEM MYELOCYTES 1(H) <=0 % INTERFACE SYSTEM ATYPICAL LYMPHOCYTE 1 0 - 5 % INTERFACE SYSTEM PLATELET EST. Consistent w/ count Normal INTERFACE SYSTEM ANISOCYTOSIS Slight INTERFA CE SYSTEM POIKILOCYTES Slight INTERFA CE SYSTEM OVALOCYTES Slight INTERFACE SYSTEM TOXIC GRANULATION Slight IN TERFACE SYSTEM 12/13/2005 3:35 PM CDT us Wicho Gomez MD HEMATOLOGY ORDERABLES Final [facility] Performing Organization Address [facility] de Phone Number INTERFACE SYSTEM Refer to clinic/hospital department * (ABNORMAL) CBC WITH DIFFERENTIAL (12/13/2005 3:35 PM CDT) WBC 10.4(H) 4.0 - 9.8 K/uL INTERFACE SYSTEM RBC 3.83(L) 4.50 - 5.40 M/uL INTERFACE SYSTEM HEMOGLOBIN 11.4(L) 13.6 - 16.5 g/dL INTERFACE SYSTEM HEMATOCRIT 35.6(L) 40.0 - 48.0 % INTERFACE SYSTEM MCV 93.0 82.0 - 99.0 fL INTERFACE SYSTEM MCH 29.8 27.2 - 32.6 pg INTERFACE SYSTEM MCHC 32.0 31.5 - 35.5 % INTERFACE SYSTEM RDW 16.0(H) 11.5 - 14.5 % INTERFACE SYSTEM RDW-STDEV 53.6(H) 37.1 - 48.7 fL INTERFACE SYSTEM PLATELETS 314 140 - 350 K/uL INTERFACE SYSTEM MPV 10.3 9.3 - 12.4 fL INTERFACE SYSTEM 12/13/2005 3:35 PM CDT Wicho Gomez MD HEMATOLOGY ORDERABLES Final [facility] Performing Organization Address [facility] Phone Number INTERFACE SYSTEM Refer to clinic/hospital department * (ABNORMAL) PT AND APTT (12/13/2005 3:35 PM CDT) PTT 27.8 24.4 - 36.4 Seconds INTERFACE SYSTEM Comment: PTT Therapeutic Range: Heparin Level ? PTT (seconds) <0.10 units/mL ? <53 0.10 - 0.30 units/mL ? 53 - 67 0.30 - 0.70 units/mL* ?67 - 95* 0.70 - 1.00 units/mL ?95 - 116 *corresponds to therapeutic range for unfractionated heparin ?? PROTIME 16.5(H) 12.7 - 15.1 Seconds INTERFACE SYSTEM INR 1.2(H) 0.9 - 1.1 INTERFACE SYSTEM Comment: INR Therapeutic Range: Adult: 2.0 - 3.0 for pulmonary embolism or prophylaxis against venous thrombosis or systemic embolization. 2.0 - 3.0 for patients with tissue heart valves. ?? 2.5 - 3.5 for patients with mechanical heart valves or post MD. Pediatric ??(12 years and under): 1.5 - 3.0 Although the target range in children is not well established , INR values of 1.5 - 3.0 are recommended for most patients. Higher values have been used in children with prosthetic cardiac valves and hereditary clotting disorders. (<3 days) therapeutic ranges have not been established. 12/13/2005 3:35 PM CDT Wicho Gomez MD HEMATOLOGY ORDERABLES Final R esult Performing Organization Address [facility] Number INTERFACE SYSTEM Refer to clinic/hospital department * PHOSPHORUS (12/13/2005 3:35 PM CDT) PHOSPHORUS 4.4 2.5 - 4.5 mg/dL INTERFACE SYSTEM 12/13/2005 3:35 PM CDT Wicho Gomez MD CHEMISTRY ORDERABLES Final Re sult Performing Organization Address [facility] Phone Number INTERFACE SYSTEM Refer to clinic/hospital department * MAGNESIUM LEVEL (12/13/2005 3:35 PM CDT) MAGNESIUM 1.9 1.5 - 2.5 mg/dL INTERFACE SYSTEM 12/13/2005 3:35 PM CDT Wicho Gomez MD CHEMISTRY ORDERABLES Final Re sult Performing Organization Address [facility] Phone Number INTERFACE SYSTEM Refer to clinic/hospital department * (ABNORMAL) CALCIUM IONIZED (12/13/2005 3:35 PM CDT) CALCIUM IONIZED 4.60(L) 4.76 - 5.16 mg/dL INTERFACE SYSTEM 12/13/2005 3:35 PM CDT Wicho Gomez MD CHEMISTRY ORDERABLES Final Re sult Performing Organization Address [facility] Phone Number INTERFACE SYSTEM Refer to clinic/hospital department * (ABNORMAL) BASIC METABOLIC PANEL (12/13/2005 3:35 PM CDT) GLUCOSE 124(H) 65 - 99 mg/dL INTERFACE SYSTEM CREATININE 0.9 0.5 - 1.3 mg/dL INTERFACE SYSTEM CALCIUM 7.6(L) 8.4 - 10.2 mg/dL INTERFACE SYSTEM BUN 24(H) 6 - 20 mg/dL INTERFACE SYSTEM SODIUM 144 135 - 145 mmol/L INTERFACE SYSTEM POTASSIUM 4.0 3.5 - 4.9 mmol/L INTERFACE SYSTEM CHLORIDE 112(H) 96 - 108 mmol/L INTERFACE SYSTEM CO2 23 22 - 30 mmol/L INTERFACE SYSTEM RESULT COMMENT, CHEMISTRY INTERFACE SYSTEM Comment: BMP, Mag, Phos: post-op 12/13/2005 3:35 PM CDT Wicho Gomez MD CHEMISTRY ORDERABLES Final Re diegot Performing Organization Address [facility] Phone Number INTERFACE SYSTEM Refer to clinic/hospital department * (ABNORMAL) POC GLUCOSE (12/13/2005 12:09 PM CDT) COMMENT, GLU POC Notified RN INTERFACE SYSTEM GLUCOSE POC 112(H) 65 - 109 mg/dL INTERFACE SYSTEM 12/13/2005 12:0 9 PM CDT us Wicho Gomez MD POINT OF CARE TESTING Final R esult Performing Organization Address [facility] Phone Number INTERFACE SYSTEM Refer to clinic/hospital department * POC GLUCOSE (12/13/2005 5:15 AM CDT) GLUCOSE POC 89 65 - 109 mg/dL INTERFACE SYSTEM 12/13/2005 5:15 AM CDT Wicho Gomez MD POINT OF CARE TESTING Final R esult Performing Organization Address [facility] de Phone Number INTERFACE SYSTEM Refer to clinic/hospital department * (ABNORMAL) BLOOD GAS ARTERIAL (12/13/2005 3:15 AM CDT) PH ARTERIAL 7.41 7.35 - 7.45 INTERFACE SYSTEM PCO2 ARTERIAL 46 35 - 48 mm Hg INTERFACE SYSTEM PO2 ARTERIAL 88 83 - 108 mm Hg INTERFACE SYSTEM SO2 ABG 98 95 - 99 % INTERFACE SYSTEM FO2HB ABG 97 94 - 98 % INTERFACE SYSTEM HCO3 ARTERIAL 29(H) 22 - 26 mmol/L INTERFACE SYSTEM BASE EXCESS ABG 3.6(H) -2.0 - 3.0 mmol/L INTERFACE SYSTEM O2 CONC ARTERIAL 35% INTERFACE SYSTEM 12/13/2005 3:15 AM CDT Wicho Gomez MD ABG ORDERABLES Final Result Performing Organization Address [facility] Phone Number INTERFACE SYSTEM Refer to clinic/hospital department * (ABNORMAL) CBC WITH DIFFERENTIAL (12/13/2005 3:15 AM CDT) NEUTROPHIL ABSOLUTE 4.76 1.90 - 7.00 K/uL INTERFACE SYSTEM LYMPHOCYTE ABSOLUTE 0.73 0.70 - 4.50 K/uL INTERFACE SYSTEM MONOCYTE ABSOLUTE 0.37 0.10 - 1.30 K/uL INTERFACE SYSTEM EOSINOPHIL ABSOLUTE 0.00 0.00 - 0.70 K/uL INTERFACE SYSTEM BASOPHILS ABSOLUTE 0.00 0.00 - 0.20 K/uL INTERFACE SYSTEM NEUTROPHILS, SEG 62 45 - 70 % INT ERFACE SYSTEM BANDS 16(H) 0 - 5 % INTERFACE SYSTEM LYMPHOCYTES 11(L) 16 - 45 % INTERFAC E SYSTEM MONOCYTES 6 3 - 13 % INTERFACE SYSTEM EOSINOPHILS 0 0 - 7 % INTERFAC E SYSTEM BASOPHILS 0 0 - 2 % INTERFACE SYSTEM METAMYELOCYTE 2(H) <=0 % INTERF CINDY SYSTEM MYELOCYTES 1(H) <=0 % INTERFACE SYSTEM PROMYELOCYTE 1(H) <=0 % INTERFA CE SYSTEM ATYPICAL LYMPHOCYTE 1 0 - 5 % INTERFACE SYSTEM PLATELET EST. Consistent w/ count Normal INTERFACE SYSTEM ANISOCYTOSIS Slight INTERFA CE SYSTEM POIKILOCYTES Slight INTERFA CE SYSTEM MICROCYTES Slight INTERFACE SYSTEM HYPOCHROMIA Slight INTERFAC E SYSTEM 12/13/2005 3:15 AM CDT us Wicho Gomez MD HEMATOLOGY ORDERABLES Final R esult Performing Organization Address City/[facility] Co de Phone Number INTERFACE SYSTEM Refer to clinic/hospital department * (ABNORMAL) CBC WITH DIFFERENTIAL (12/13/2005 3:15 AM CDT) WBC 6.1 4.0 - 9.8 K/uL INTERFACE SYSTEM RBC 3.09(L) 4.50 - 5.40 M/uL INTERFACE SYSTEM HEMOGLOBIN 9.5(L) 13.6 - 16.5 g/dL INTERFACE SYSTEM HEMATOCRIT 28.9(L) 40.0 - 48.0 % INTERFACE SYSTEM MCV 93.5 82.0 - 99.0 fL INTERFACE SYSTEM MCH 30.7 27.2 - 32.6 pg INTERFACE SYSTEM MCHC 32.9 31.5 - 35.5 % INTERFACE SYSTEM RDW 15.9(H) 11.5 - 14.5 % INTERFACE SYSTEM RDW-STDEV 53.6(H) 37.1 - 48.7 fL INTERFACE SYSTEM PLATELETS 284 140 - 350 K/uL INTERFACE SYSTEM MPV 10.2 9.3 - 12.4 fL INTERFACE SYSTEM 12/13/2005 3:15 AM CDT us Wicho Gomez MD HEMATOLOGY ORDERABLES Final R esult Performing Organization Address City/[facility] Co de Phone Number INTERFACE SYSTEM Refer to clinic/hospital department * (ABNORMAL) HEPATIC FUNCTION PANEL (12/13/2005 3:15 AM CDT) ALKALINE PHOSPHATASE 34(L) 40 - 129 U/L INTERFACE SYSTEM AST 12 12 - 38 U/L INTERFACE SYSTEM ALT 16 0 - 41 U/L INTERFACE SYSTEM TOTAL PROTEIN 4.3(L) 6.3 - 8.6 g/dL INTERFACE SYSTEM ALBUMIN 1.5(L) 3.4 - 4.8 g/dL INTERFACE SYSTEM BILIRUBIN TOTAL 0.4 0.2 - 1.0 mg/dL INTERFACE SYSTEM BILIRUBIN DIRECT 0.3 0.0 - 0.3 mg/dL INTERFACE SYSTEM 12/13/2005 3:15 AM CDT Romie Laughlin MD CHEMISTRY ORDERABLES Final R esult Performing Organization Address [facility] de Phone Number INTERFACE SYSTEM Refer to clinic/hospital department * (ABNORMAL) PREALBUMIN (12/13/2005 3:15 AM CDT) PREALBUMIN 13(L) 20 - 40 mg/dL INTERFACE SYSTEM 12/13/2005 3:15 AM CDT Romie Laughlin MD CHEMISTRY ORDERABLES [facility] Performing Organization Address [facility] de Phone Number INTERFACE SYSTEM Refer to clinic/hospital department * (ABNORMAL) PT AND APTT (12/13/2005 3:15 AM CDT) PROTIME 17.0(H) 12.7 - 15.1 Seconds INTERFACE SYSTEM INR 1.3(H) 0.9 - 1.1 INTERFACE SYSTEM Comment: INR Therapeutic Range: Adult: 2.0 - 3.0 for pulmonary embolism or prophylaxis against venous thrombosis or systemic embolization. 2.0 - 3.0 for patients with tissue heart valves. ?? 2.5 - 3.5 for patients with mechanical heart valves or post MD. Pediatric ??(12 years and under): 1.5 - 3.0 Although the target range in children is not well established , INR values of 1.5 - 3.0 are recommended for most patients. Higher values have been used in children with prosthetic cardiac valves and hereditary clotting disorders. (<3 days) therapeutic ranges have not been established. PTT 47.1(H) 24.4 - 36.4 Seconds INTERFACE SYSTEM Comment: PTT Therapeutic Range: Heparin Level ? PTT (seconds) <0.10 units/mL ? <53 0.10 - 0.30 units/mL ? 53 - 67 0.30 - 0.70 units/mL* ?67 - 95* 0.70 - 1.00 units/mL ?95 - 116 *corresponds to therapeutic range for unfractionated heparin ?? 12/13/2005 3:15 AM CDT us Wicho Gomez MD HEMATOLOGY ORDERABLES Final R esult Performing Organization Address [facility] Phone Number INTERFACE SYSTEM Refer to clinic/hospital department * PHOSPHORUS (12/13/2005 3:15 AM CDT) PHOSPHORUS 3.2 2.5 - 4.5 mg/dL INTERFACE SYSTEM 12/13/2005 3:15 AM CDT us Wicho Gomez MD CHEMISTRY ORDERABLES Final Re sult Performing Organization Address [facility] INTERFACE SYSTEM Refer to clinic/hospital department * MAGNESIUM LEVEL (12/13/2005 3:15 AM CDT) MAGNESIUM 1.8 1.5 - 2.5 mg/dL INTERFACE SYSTEM 12/13/2005 3:15 AM CDT us Wicho Gomez MD CHEMISTRY ORDERABLES Final Re sult Performing Organization Address [facility] INTERFACE SYSTEM Refer to clinic/hospital department * (ABNORMAL) CALCIUM IONIZED (12/13/2005 3:15 AM CDT) CALCIUM IONIZED 4.60(L) 4.76 - 5.16 mg/dL INTERFACE SYSTEM 12/13/2005 3:15 AM CDT us Wicho Gomez MD CHEMISTRY ORDERABLES Final Re sult Performing Organization Address [facility] INTERFACE SYSTEM Refer to clinic/hospital department * (ABNORMAL) BASIC METABOLIC PANEL (12/13/2005 3:15 AM CDT) GLUCOSE 112(H) 65 - 99 mg/dL INTERFACE SYSTEM CREATININE 1.0 0.5 - 1.3 mg/dL INTERFACE SYSTEM CALCIUM 7.5(L) 8.4 - 10.2 mg/dL INTERFACE SYSTEM BUN 24(H) 6 - 20 mg/dL INTERFACE SYSTEM SODIUM 142 135 - 145 mmol/L INTERFACE SYSTEM POTASSIUM 4.0 3.5 - 4.9 mmol/L INTERFACE SYSTEM CHLORIDE 112(H) 96 - 108 mmol/L INTERFACE SYSTEM CO2 25 22 - 30 mmol/L INTERFACE SYSTEM 12/13/2005 3:15 AM CDT us Wicho Gomez MD CHEMISTRY ORDERABLES Final Re sult Performing Organization Address [facility] Phone Number INTERFACE SYSTEM Refer to clinic/hospital department * (ABNORMAL) POC GLUCOSE (12/12/2005 11:47 PM CDT) GLUCOSE POC 146(H) 65 - 109 mg/dL INTERFACE SYSTEM 12/12/2005 11:4 7 PM CDT us Wicho Gomez MD POINT OF CARE TESTING Final R esult Performing Organization Address [facility] Phone Number INTERFACE SYSTEM Refer to clinic/hospital department * (ABNORMAL) POC GLUCOSE (12/12/2005 6:51 PM CDT) GLUCOSE POC 133(H) 65 - 109 mg/dL INTERFACE SYSTEM 12/12/2005 6:51 PM CDT us Wicho Gomez MD POINT OF CARE TESTING Final R [place] Performing Organization Address [facility] Phone Number INTERFACE SYSTEM Refer to clinic/hospital department * (ABNORMAL) PT AND APTT (12/12/2005 4:40 PM CDT) PROTIME 16.8(H) 12.7 - 15.1 Seconds INTERFACE SYSTEM INR 1.3(H) 0.9 - 1.1 INTERFACE SYSTEM Comment: INR Therapeutic Range: Adult: 2.0 - 3.0 for pulmonary embolism or prophylaxis against venous thrombosis or systemic embolization. 2.0 - 3.0 for patients with tissue heart valves. ?? 2.5 - 3.5 for patients with mechanical heart valves or post MD. Pediatric ??(12 years and under): 1.5 - 3.0 Although the target range in children is not well established , INR values of 1.5 - 3.0 are recommended for most patients. Higher values have been used in children with prosthetic cardiac valves and hereditary clotting disorders. (<3 days) therapeutic ranges have not been established. PTT 90.9(H) 24.4 - 36.4 Seconds INTERFACE SYSTEM Comment: PTT Therapeutic Range: Heparin Level ? PTT (seconds) <0.10 units/mL ? <53 0.10 - 0.30 units/mL ? 53 - 67 0.30 - 0.70 units/mL* ?67 - 95* 0.70 - 1.00 units/mL ?95 - 116 *corresponds to therapeutic range for unfractionated heparin ?? 12/12/2005 4:40 PM CDT Romie Laughlin MD HEMATOLOGY ORDERABLES Final Result Performing Organization Address [facility] Phone Number INTERFACE SYSTEM Refer to clinic/hospital department * (ABNORMAL) POC GLUCOSE (12/12/2005 1:17 PM CDT) GLUCOSE POC 121(H) 65 - 109 mg/dL INTERFACE SYSTEM 12/12/2005 1:17 PM CDT us Wicho Gomez MD POINT OF CARE TESTING Final R esult Performing Organization Address [facility] Co de Phone Number INTERFACE SYSTEM Refer to clinic/hospital department * (ABNORMAL) POC GLUCOSE (12/12/2005 5:56 AM CDT) GLUCOSE POC 142(H) 65 - 109 mg/dL INTERFACE SYSTEM 12/12/2005 5:56 AM CDT Wicho Gomez MD POINT OF CARE TESTING Final R esult Performing Organization Address [facility] de Phone Number INTERFACE SYSTEM Refer to clinic/hospital department * (ABNORMAL) BLOOD GAS ARTERIAL (12/12/2005 4:00 AM CDT) PH ARTERIAL 7.47(H) 7.35 - 7.45 INTERFACE SYSTEM PCO2 ARTERIAL 37 35 - 48 mm Hg INTERFACE SYSTEM PO2 ARTERIAL 164(H) 83 - 108 mm Hg INTERFACE SYSTEM SO2 ABG 99 95 - 99 % INTERFACE SYSTEM FO2HB ABG 98 94 - 98 % INTERFACE SYSTEM HCO3 ARTERIAL 26 22 - 26 mmol/L INTERFACE SYSTEM BASE EXCESS ABG 2.3 -2.0 - 3.0 mmol/L INTERFACE SYSTEM O2 CONC ARTERIAL 35% INTERFACE SYSTEM 12/12/2005 4:00 AM CDT Wicho Gomez MD ABG ORDERABLES Final Result Performing Organization Address [facility] Phone Number INTERFACE SYSTEM Refer to clinic/hospital department * (ABNORMAL) CBC WITH DIFFERENTIAL (12/12/2005 4:00 AM CDT) NEUTROPHIL ABSOLUTE 5.10 1.90 - 7.00 K/uL INTERFACE SYSTEM LYMPHOCYTE ABSOLUTE 0.76 0.70 - 4.50 K/uL INTERFACE SYSTEM MONOCYTE ABSOLUTE 0.32 0.10 - 1.30 K/uL INTERFACE SYSTEM EOSINOPHIL ABSOLUTE 0.00 0.00 - 0.70 K/uL INTERFACE SYSTEM BASOPHILS ABSOLUTE 0.00 0.00 - 0.20 K/uL INTERFACE SYSTEM NEUTROPHILS, SEG 56 45 - 70 % INT ERFACE SYSTEM BANDS 25(H) 0 - 5 % INTERFACE SYSTEM LYMPHOCYTES 11(L) 16 - 45 % INTERFAC E SYSTEM MONOCYTES 5 3 - 13 % INTERFACE SYSTEM EOSINOPHILS 0 0 - 7 % INTERFAC E SYSTEM BASOPHILS 0 0 - 2 % INTERFACE SYSTEM METAMYELOCYTE 2(H) <=0 % INTERF CINDY SYSTEM ATYPICAL LYMPHOCYTE 1 0 - 5 % INTERFACE SYSTEM PLATELET EST. Consistent w/ count Normal INTERFACE SYSTEM ANISOCYTOSIS Slight INTERFA CE SYSTEM POIKILOCYTES Slight INTERFA CE SYSTEM OVALOCYTES Slight INTERFACE SYSTEM 12/12/2005 4:00 AM CDT Wicho Gomez MD HEMATOLOGY ORDERABLES Final R esult Performing Organization Address City/[facility] de Phone Number INTERFACE SYSTEM Refer to clinic/hospital department * (ABNORMAL) CBC WITH DIFFERENTIAL (12/12/2005 4:00 AM CDT) WBC 6.3 4.0 - 9.8 K/uL INTERFACE SYSTEM RBC 3.23(L) 4.50 - 5.40 M/uL INTERFACE SYSTEM HEMOGLOBIN 9.7(L) 13.6 - 16.5 g/dL INTERFACE SYSTEM HEMATOCRIT 30.1(L) 40.0 - 48.0 % INTERFACE SYSTEM MCV 93.2 82.0 - 99.0 fL INTERFACE SYSTEM MCH 30.0 27.2 - 32.6 pg INTERFACE SYSTEM MCHC 32.2 31.5 - 35.5 % INTERFACE SYSTEM RDW 16.0(H) 11.5 - 14.5 % INTERFACE SYSTEM RDW-STDEV 53.7(H) 37.1 - 48.7 fL INTERFACE SYSTEM PLATELETS 350 140 - 350 K/uL INTERFACE SYSTEM MPV 10.4 9.3 - 12.4 fL INTERFACE SYSTEM 12/12/2005 4:00 AM CDT us Wicho Gomez MD HEMATOLOGY ORDERABLES Final R formerly [facility] Performing Organization Address [facility] de Phone Number INTERFACE SYSTEM Refer to clinic/hospital department * (ABNORMAL) PT AND APTT (12/12/2005 4:00 AM CDT) PROTIME 16.9(H) 12.7 - 15.1 Seconds INTERFACE SYSTEM INR 1.3(H) 0.9 - 1.1 INTERFACE SYSTEM Comment: INR Therapeutic Range: Adult: 2.0 - 3.0 for pulmonary embolism or prophylaxis against venous thrombosis or systemic embolization. 2.0 - 3.0 for patients with tissue heart valves. ?? 2.5 - 3.5 for patients with mechanical heart valves or post MD. Pediatric ??(12 years and under): 1.5 - 3.0 Although the target range in children is not well established , INR values of 1.5 - 3.0 are recommended for most patients. Higher values have been used in children with prosthetic cardiac valves and hereditary clotting disorders. (<3 days) therapeutic ranges have not been established. PTT 65.9(H) 24.4 - 36.4 Seconds INTERFACE SYSTEM Comment: PTT Therapeutic Range: Heparin Level ? PTT (seconds) <0.10 units/mL ? <53 0.10 - 0.30 units/mL ? 53 - 67 0.30 - 0.70 units/mL* ?67 - 95* 0.70 - 1.00 units/mL ?95 - 116 *corresponds to therapeutic range for unfractionated heparin ?? 12/12/2005 4:00 AM CDT us Romie Laughlin MD HEMATOLOGY ORDERABLES Final Result Performing Organization Address [facility] Phone Number INTERFACE SYSTEM Refer to clinic/hospital department * (ABNORMAL) CALCIUM IONIZED (12/12/2005 4:00 AM CDT) CALCIUM IONIZED 4.40(L) 4.76 - 5.16 mg/dL INTERFACE SYSTEM 12/12/2005 4:00 AM CDT us Wicho Gomez MD CHEMISTRY ORDERABLES Final Re sult Performing Organization Address [facility] Phone Number INTERFACE SYSTEM Refer to clinic/hospital department * PHOSPHORUS (12/12/2005 4:00 AM CDT) PHOSPHORUS 2.8 2.5 - 4.5 mg/dL INTERFACE SYSTEM 12/12/2005 4:00 AM CDT us Wicho Gomez MD CHEMISTRY ORDERABLES Final Re sult Performing Organization Address [facility] Phone Number INTERFACE SYSTEM Refer to clinic/hospital department * MAGNESIUM LEVEL (12/12/2005 4:00 AM CDT) MAGNESIUM 2.0 1.5 - 2.5 mg/dL INTERFACE SYSTEM 12/12/2005 4:00 AM CDT us Wicho Gomez MD CHEMISTRY ORDERABLES Final Re sult Performing Organization Address [facility] Phone Number INTERFACE SYSTEM Refer to clinic/hospital department * (ABNORMAL) BASIC METABOLIC PANEL (12/12/2005 4:00 AM CDT) GLUCOSE 126(H) 65 - 99 mg/dL INTERFACE SYSTEM CREATININE 0.8 0.5 - 1.3 mg/dL INTERFACE SYSTEM CALCIUM 7.6(L) 8.4 - 10.2 mg/dL INTERFACE SYSTEM BUN 23(H) 6 - 20 mg/dL INTERFACE SYSTEM SODIUM 145 135 - 145 mmol/L INTERFACE SYSTEM POTASSIUM 4.0 3.5 - 4.9 mmol/L INTERFACE SYSTEM CHLORIDE 112(H) 96 - 108 mmol/L INTERFACE SYSTEM CO2 23 22 - 30 mmol/L INTERFACE SYSTEM 12/12/2005 4:00 AM CDT us Wicho Gomez MD CHEMISTRY ORDERABLES Final Re sult Performing Organization Address [facility] Phone Number INTERFACE SYSTEM Refer to clinic/hospital department * (ABNORMAL) POC GLUCOSE (12/12/2005 12:10 AM CDT) GLUCOSE POC 115(H) 65 - 109 mg/dL INTERFACE SYSTEM 12/12/2005 12:1 0 AM CDT us Wicho Gomez MD POINT OF CARE TESTING Final R esult Performing Organization Address [facility] Phone Number INTERFACE SYSTEM Refer to clinic/hospital department * (ABNORMAL) POC GLUCOSE (12/11/2005 6:41 PM CDT) GLUCOSE POC 129(H) 65 - 109 mg/dL INTERFACE SYSTEM 12/11/2005 6:41 PM CDT us Wicho Gomez MD POINT OF CARE TESTING Final R esult Performing Organization Address [facility]/ZIP Co de Phone Number INTERFACE SYSTEM Refer to clinic/hospital department * (ABNORMAL) PT AND APTT (12/11/2005 12:30 PM CDT) PROTIME 17.2(H) 12.7 - 15.1 Seconds INTERFACE SYSTEM INR 1.3(H) 0.9 - 1.1 INTERFACE SYSTEM Comment: INR Therapeutic Range: Adult: 2.0 - 3.0 for pulmonary embolism or prophylaxis against venous thrombosis or systemic embolization. 2.0 - 3.0 for patients with tissue heart valves. ?? 2.5 - 3.5 for patients with mechanical heart valves or post MD. Pediatric ??(12 years and under): 1.5 - 3.0 Although the target range in children is not well established , INR values of 1.5 - 3.0 are recommended for most patients. Higher values have been used in children with prosthetic cardiac valves and hereditary clotting disorders. (<3 days) therapeutic ranges have not been established. PTT 76.9(H) 24.4 - 36.4 Seconds INTERFACE SYSTEM Comment: PTT Therapeutic Range: Heparin Level ? PTT (seconds) <0.10 units/mL ? <53 0.10 - 0.30 units/mL ? 53 - 67 0.30 - 0.70 units/mL* ?67 - 95* 0.70 - 1.00 units/mL ?95 - 116 *corresponds to therapeutic range for unfractionated heparin ?? 12/11/2005 12:3 0 PM CDT us Romie Laughlin MD HEMATOLOGY ORDERABLES Final Result INTERFACE SYSTEM Refer to clinic/hospital department * (ABNORMAL) POC GLUCOSE (12/11/2005 11:46 AM CDT) GLUCOSE POC 148(H) 65 - 109 mg/dL INTERFACE SYSTEM 12/11/2005 11:4 6 AM CDT Wicho Gomez MD POINT OF CARE TESTING Final R esult Performing Organization Address [facility] de Phone Number INTERFACE SYSTEM Refer to clinic/hospital department * (ABNORMAL) POC GLUCOSE (12/11/2005 5:24 AM CDT) GLUCOSE POC 162(H) 65 - 109 mg/dL INTERFACE SYSTEM 12/11/2005 5:24 AM CDT Wicho Gomez MD POINT OF CARE TESTING Final R esult Performing Organization Address [facility] de Phone Number INTERFACE SYSTEM Refer to clinic/hospital department * (ABNORMAL) BLOOD GAS ARTERIAL (12/11/2005 3:30 AM CDT) PH ARTERIAL 7.49(H) 7.35 - 7.45 INTERFACE SYSTEM PCO2 ARTERIAL 33(L) 35 - 48 mm Hg INTERFACE SYSTEM PO2 ARTERIAL 196(H) 83 - 108 mm Hg INTERFACE SYSTEM SO2 ABG 99 95 - 99 % INTERFACE SYSTEM FO2HB ABG 98 94 - 98 % INTERFACE SYSTEM HCO3 ARTERIAL 25 22 - 26 mmol/L INTERFACE SYSTEM BASE EXCESS ABG 1.9 -2.0 - 3.0 mmol/L INTERFACE SYSTEM O2 CONC ARTERIAL .50 INTERFACE SYSTEM 12/11/2005 3:30 AM CDT Wicho Gomez MD ABG ORDERABLES Final Result Performing Organization Address [facility] de Phone Number INTERFACE SYSTEM Refer to clinic/hospital department * (ABNORMAL) CBC WITH DIFFERENTIAL (12/11/2005 3:30 AM CDT) NEUTROPHIL ABSOLUTE 5.48 1.90 - 7.00 K/uL INTERFACE SYSTEM LYMPHOCYTE ABSOLUTE 1.26 0.70 - 4.50 K/uL INTERFACE SYSTEM MONOCYTE ABSOLUTE 0.59 0.10 - 1.30 K/uL INTERFACE SYSTEM EOSINOPHIL ABSOLUTE 0.00 0.00 - 0.70 K/uL INTERFACE SYSTEM BASOPHILS ABSOLUTE 0.00 0.00 - 0.20 K/uL INTERFACE SYSTEM NEUTROPHILS, SEG 68 45 - 70 % INT ERFACE SYSTEM BANDS 6(H) 0 - 5 % INTERFACE SYSTEM LYMPHOCYTES 16 16 - 45 % INTERFAC E SYSTEM MONOCYTES 8 3 - 13 % INTERFACE SYSTEM EOSINOPHILS 0 0 - 7 % INTERFAC E SYSTEM BASOPHILS 0 0 - 2 % INTERFACE SYSTEM PROMYELOCYTE 1(H) <=0 % INTERFA CE SYSTEM ATYPICAL LYMPHOCYTE 1 0 - 5 % INTERFACE SYSTEM PLATELET EST. Consistent w/ count Normal INTERFACE SYSTEM ANISOCYTOSIS Slight INTERFA CE SYSTEM POIKILOCYTES Slight INTERFA CE SYSTEM MICROCYTES Slight INTERFACE SYSTEM HYPOCHROMIA Slight INTERFAC E SYSTEM 12/11/2005 3:30 AM CDT Wicho Gomez MD HEMATOLOGY ORDERABLES Final R esult Performing Organization Address City/[facility]/ZIP Co de Phone Number INTERFACE SYSTEM Refer to clinic/hospital department * (ABNORMAL) CBC WITH DIFFERENTIAL (12/11/2005 3:30 AM CDT) NEUTROPHILS 78(H) 45 - 70 % INTERFAC E SYSTEM LYMPHOCYTES 12(L) 16 - 45 % INTERFAC E SYSTEM MONOCYTES 10 3 - 13 % INTERFACE SYSTEM EOSINOPHILS 0 0 - 7 % INTERFAC E SYSTEM BASOPHILS 0 0 - 2 % INTERFACE SYSTEM NEUTROPHIL ABSOLUTE 5.78 1.90 - 7.00 K/uL INTERFACE SYSTEM LYMPHOCYTE ABSOLUTE 0.88 0.70 - 4.50 K/uL INTERFACE SYSTEM MONOCYTE ABSOLUTE 0.74 0.10 - 1.30 K/uL INTERFACE SYSTEM EOSINOPHIL ABSOLUTE 0.00 0.00 - 0.70 K/uL INTERFACE SYSTEM BASOPHILS ABSOLUTE 0.02 0.00 - 0.20 K/uL INTERFACE SYSTEM 12/11/2005 3:30 AM CDT Wicho Gomez MD HEMATOLOGY ORDERABLES Final R esult INTERFACE SYSTEM Refer to clinic/hospital department * (ABNORMAL) CBC WITH DIFFERENTIAL (12/11/2005 3:30 AM CDT) WBC 7.4 4.0 - 9.8 K/uL INTERFACE SYSTEM RBC 3.18(L) 4.50 - 5.40 M/uL INTERFACE SYSTEM HEMOGLOBIN 9.6(L) 13.6 - 16.5 g/dL INTERFACE SYSTEM HEMATOCRIT 29.5(L) 40.0 - 48.0 % INTERFACE SYSTEM MCV 92.8 82.0 - 99.0 fL INTERFACE SYSTEM MCH 30.2 27.2 - 32.6 pg INTERFACE SYSTEM MCHC 32.5 31.5 - 35.5 % INTERFACE SYSTEM RDW 15.8(H) 11.5 - 14.5 % INTERFACE SYSTEM RDW-STDEV 52.2(H) 37.1 - 48.7 fL INTERFACE SYSTEM PLATELETS 331 140 - 350 K/uL INTERFACE SYSTEM MPV 10.3 9.3 - 12.4 fL INTERFACE SYSTEM 12/11/2005 3:30 AM CDT us Wicho Gomez MD HEMATOLOGY ORDERABLES Final R esult INTERFACE SYSTEM Refer to clinic/hospital department * (ABNORMAL) PT AND APTT (12/11/2005 3:30 AM CDT) PROTIME 17.3(H) 12.7 - 15.1 Seconds INTERFACE SYSTEM INR 1.3(H) 0.9 - 1.1 INTERFACE SYSTEM Comment: INR Therapeutic Range: Adult: 2.0 - 3.0 for pulmonary embolism or prophylaxis against venous thrombosis or systemic embolization. 2.0 - 3.0 for patients with tissue heart valves. ?? 2.5 - 3.5 for patients with mechanical heart valves or post MD. Pediatric ??(12 years and under): 1.5 - 3.0 Although the target range in children is not well established , INR values of 1.5 - 3.0 are recommended for most patients. Higher values have been used in children with prosthetic cardiac valves and hereditary clotting disorders. (<3 days) therapeutic ranges have not been established. PTT 90.7(H) 24.4 - 36.4 Seconds INTERFACE SYSTEM Comment: PTT Therapeutic Range: Heparin Level ? PTT (seconds) <0.10 units/mL ? <53 0.10 - 0.30 units/mL ? 53 - 67 0.30 - 0.70 units/mL* ?67 - 95* 0.70 - 1.00 units/mL ?95 - 116 *corresponds to therapeutic range for unfractionated heparin ?? 12/11/2005 3:30 AM CDT us Wicho Gomez MD HEMATOLOGY ORDERABLES Final R esult Performing Organization Address [facility] Number INTERFACE SYSTEM Refer to clinic/hospital department * PHOSPHORUS (12/11/2005 3:30 AM CDT) PHOSPHORUS 2.5 2.5 - 4.5 mg/dL INTERFACE SYSTEM 12/11/2005 3:30 AM CDT us Wicho Gomez MD CHEMISTRY ORDERABLES Final Re sult Performing Organization Address [facility] INTERFACE SYSTEM Refer to clinic/hospital department * MAGNESIUM LEVEL (12/11/2005 3:30 AM CDT) MAGNESIUM 1.9 1.5 - 2.5 mg/dL INTERFACE SYSTEM 12/11/2005 3:30 AM CDT us Wicho Gomez MD CHEMISTRY ORDERABLES Final Re sult Performing Organization Address [facility] INTERFACE SYSTEM Refer to clinic/hospital department * (ABNORMAL) CALCIUM IONIZED (12/11/2005 3:30 AM CDT) CALCIUM IONIZED 4.44(L) 4.76 - 5.16 mg/dL INTERFACE SYSTEM 12/11/2005 3:30 AM CDT us Wicho Gomez MD CHEMISTRY ORDERABLES Final Re sult Performing Organization Address [facility] Number INTERFACE SYSTEM Refer to clinic/hospital department * (ABNORMAL) BASIC METABOLIC PANEL (12/11/2005 3:30 AM CDT) GLUCOSE 205(H) 65 - 99 mg/dL INTERFACE SYSTEM CREATININE 0.9 0.5 - 1.3 mg/dL INTERFACE SYSTEM CALCIUM 7.0(L) 8.4 - 10.2 mg/dL INTERFACE SYSTEM BUN 24(H) 6 - 20 mg/dL INTERFACE SYSTEM SODIUM 144 135 - 145 mmol/L INTERFACE SYSTEM POTASSIUM 3.9 3.5 - 4.9 mmol/L INTERFACE SYSTEM CHLORIDE 114(H) 96 - 108 mmol/L INTERFACE SYSTEM CO2 23 22 - 30 mmol/L INTERFACE SYSTEM 12/11/2005 3:30 AM CDT Wicho Gomez MD CHEMISTRY ORDERABLES Final Re sult Performing Organization Address [facility] de Phone Number INTERFACE SYSTEM Refer to clinic/hospital department * (ABNORMAL) POC GLUCOSE (12/11/2005 12:14 AM CDT) GLUCOSE POC 126(H) 65 - 109 mg/dL INTERFACE SYSTEM 12/11/2005 12:1 4 AM CDT Wicho Gomez MD POINT OF CARE TESTING Final R esult Performing Organization Address [facility] de Phone Number INTERFACE SYSTEM Refer to clinic/hospital department * (ABNORMAL) BLOOD GAS ARTERIAL (12/10/2005 9:45 PM CDT) PH ARTERIAL 7.44 7.35 - 7.45 INTERFACE SYSTEM PCO2 ARTERIAL 37 35 - 48 mm Hg INTERFACE SYSTEM PO2 ARTERIAL 70(L) 83 - 108 mm Hg INTERFACE SYSTEM SO2 ABG 96 95 - 99 % INTERFACE SYSTEM FO2HB ABG 95 94 - 98 % INTERFACE SYSTEM HCO3 ARTERIAL 24 22 - 26 mmol/L INTERFACE SYSTEM BASE EXCESS ABG 0.5 -2.0 - 3.0 mmol/L INTERFACE SYSTEM O2 CONC ARTERIAL .50 INTERFACE SYSTEM 12/10/2005 9:45 PM CDT us Wicho Gomez MD ABG ORDERABLES Final Result Performing Organization Address [facility] de Phone Number INTERFACE SYSTEM Refer to clinic/hospital department * (ABNORMAL) PTT (12/10/2005 9:25 PM CDT) PTT 102.5(AA) 24.4 - 36.4 Seconds INTERFACE SYSTEM Comment: PTT Therapeutic Range: Heparin Level ? PTT (seconds) <0.10 units/mL ? <53 0.10 - 0.30 units/mL ? 53 - 67 0.30 - 0.70 units/mL* ?67 - 95* 0.70 - 1.00 units/mL ?95 - 116 *corresponds to therapeutic range for unfractionated heparin ?? Verified by repeat analysis. Results called to Neda at 12/10/2005 10:18 PM and read back verified. 12/10/2005 9:25 PM CDT Wicho Gomez MD HEMATOLOGY ORDERABLES [facility] Performing Organization Address [facility] de Phone Number INTERFACE SYSTEM Refer to clinic/hospital department * (ABNORMAL) POC GLUCOSE (12/10/2005 5:34 PM CDT) GLUCOSE POC 172(H) 65 - 109 mg/dL INTERFACE SYSTEM 12/10/2005 5:34 PM CDT Wicho Gomez MD POINT OF CARE TESTING Final R [facility] Performing Organization Address [facility] Phone Number INTERFACE SYSTEM Refer to clinic/hospital department * (ABNORMAL) PTT (12/10/2005 1:35 PM CDT) PTT 47.0(H) 24.4 - 36.4 Seconds INTERFACE SYSTEM Comment: PTT Therapeutic Range: Heparin Level ? PTT (seconds) <0.10 units/mL ? <53 0.10 - 0.30 units/mL ? 53 - 67 0.30 - 0.70 units/mL* ?67 - 95* 0.70 - 1.00 units/mL ?95 - 116 *corresponds to therapeutic range for unfractionated heparin ?? 12/10/2005 1:35 PM CDT Wicho Gomez MD HEMATOLOGY ORDERABLES Final [facility] Organization Address [facility] Phone Number INTERFACE SYSTEM Refer to clinic/hospital department * (ABNORMAL) POC GLUCOSE (12/10/2005 12:04 PM CDT) GLUCOSE POC 150(H) 65 - 109 mg/dL INTERFACE SYSTEM 12/10/2005 12:0 4 PM CDT Wicho Gomez MD POINT OF CARE TESTING [facility] Organization Address [facility] Phone Number INTERFACE SYSTEM Refer to clinic/hospital department * (ABNORMAL) PTT (12/10/2005 5:46 AM CDT) PTT 46.5(H) 24.4 - 36.4 Seconds INTERFACE SYSTEM Comment: PTT Therapeutic Range: Heparin Level ? PTT (seconds) <0.10 units/mL ? <53 0.10 - 0.30 units/mL ? 53 - 67 0.30 - 0.70 units/mL* ?67 - 95* 0.70 - 1.00 units/mL ?95 - 116 *corresponds to therapeutic range for unfractionated heparin ?? 12/10/2005 5:46 AM CDT Wicho Gomez MD HEMATOLOGY ORDERABLES Final [facility] Performing Organization Address [facility] Phone Number INTERFACE SYSTEM Refer to clinic/hospital department * (ABNORMAL) POC GLUCOSE (12/10/2005 5:37 AM CDT) GLUCOSE POC 61(L) 65 - 109 mg/dL INTERFACE SYSTEM 12/10/2005 5:37 AM CDT Wicho Gomez MD POINT OF CARE TESTING Final [facility] Performing Organization Address [facility] Phone Number INTERFACE SYSTEM Refer to clinic/hospital department * (ABNORMAL) CBC WITH DIFFERENTIAL (12/10/2005 4:00 AM CDT) Pathologist [facility] NEUTROPHILS 72(H) 45 - 70 % INTERFAC E SYSTEM LYMPHOCYTES 16 16 - 45 % INTERFAC E SYSTEM MONOCYTES 11 3 - 13 % INTERFACE SYSTEM EOSINOPHILS 0 0 - 7 % INTERFAC E SYSTEM BASOPHILS 0 0 - 2 % INTERFACE SYSTEM NEUTROPHIL ABSOLUTE 4.35 1.90 - 7.00 K/uL INTERFACE SYSTEM LYMPHOCYTE ABSOLUTE 0.98 0.70 - 4.50 K/uL INTERFACE SYSTEM MONOCYTE ABSOLUTE 0.69 0.10 - 1.30 K/uL INTERFACE SYSTEM EOSINOPHIL ABSOLUTE 0.00 0.00 - 0.70 K/uL INTERFACE SYSTEM BASOPHILS ABSOLUTE 0.02 0.00 - 0.20 K/uL INTERFACE SYSTEM 12/10/2005 4:00 AM CDT Wicho Gomez MD HEMATOLOGY ORDERABLES Final R esult Performing Organization Address [facility] Phone Number INTERFACE SYSTEM Refer to clinic/hospital department * (ABNORMAL) CBC WITH DIFFERENTIAL (12/10/2005 4:00 AM CDT) Pathologist [facility] WBC 6.0 4.0 - 9.8 K/uL INTERFACE SYSTEM RBC 3.28(L) 4.50 - 5.40 M/uL INTERFACE SYSTEM HEMOGLOBIN 9.9(L) 13.6 - 16.5 g/dL INTERFACE SYSTEM HEMATOCRIT 30.3(L) 40.0 - 48.0 % INTERFACE SYSTEM MCV 92.4 82.0 - 99.0 fL INTERFACE SYSTEM MCH 30.2 27.2 - 32.6 pg INTERFACE SYSTEM MCHC 32.7 31.5 - 35.5 % INTERFACE SYSTEM RDW 15.9(H) 11.5 - 14.5 % INTERFACE SYSTEM RDW-STDEV 52.6(H) 37.1 - 48.7 fL INTERFACE SYSTEM PLATELETS 301 140 - 350 K/uL INTERFACE SYSTEM MPV 10.4 9.3 - 12.4 fL INTERFACE SYSTEM 12/10/2005 4:00 AM CDT us Wicho Gomez MD HEMATOLOGY ORDERABLES Final R esult Performing Organization Address [facility] Phone Number INTERFACE SYSTEM Refer to clinic/hospital department * PHOSPHORUS (12/10/2005 4:00 AM CDT) PHOSPHORUS 3.6 2.5 - 4.5 mg/dL INTERFACE SYSTEM 12/10/2005 4:00 AM CDT us Wicho Gomez MD CHEMISTRY ORDERABLES Final Re sult Performing Organization Address [facility] INTERFACE SYSTEM Refer to clinic/hospital department * (ABNORMAL) CALCIUM IONIZED (12/10/2005 4:00 AM CDT) CALCIUM IONIZED 4.44(L) 4.76 - 5.16 mg/dL INTERFACE SYSTEM 12/10/2005 4:00 AM CDT us Wicho Gomez MD CHEMISTRY ORDERABLES Final Re sult Performing Organization Address [facility] Phone Number INTERFACE SYSTEM Refer to clinic/hospital department * MAGNESIUM LEVEL (12/10/2005 4:00 AM CDT) MAGNESIUM 2.2 1.5 - 2.5 mg/dL INTERFACE SYSTEM 12/10/2005 4:00 AM CDT us Wicho Gomez MD CHEMISTRY ORDERABLES Final Re sult Performing Organization Address [facility] Phone Number INTERFACE SYSTEM Refer to clinic/hospital department * (ABNORMAL) BASIC METABOLIC PANEL (12/10/2005 4:00 AM CDT) GLUCOSE 109(H) 65 - 99 mg/dL INTERFACE SYSTEM CREATININE 1.0 0.5 - 1.3 mg/dL INTERFACE SYSTEM CALCIUM 7.3(L) 8.4 - 10.2 mg/dL INTERFACE SYSTEM BUN 32(H) 6 - 20 mg/dL INTERFACE SYSTEM SODIUM 141 135 - 145 mmol/L INTERFACE SYSTEM POTASSIUM 3.8 3.5 - 4.9 mmol/L INTERFACE SYSTEM CHLORIDE 111(H) 96 - 108 mmol/L INTERFACE SYSTEM CO2 22 22 - 30 mmol/L INTERFACE SYSTEM 12/10/2005 4:00 AM CDT us Wicho Gomez MD CHEMISTRY ORDERABLES Final Re sult Performing Organization Address [facility] de Phone Number INTERFACE SYSTEM Refer to clinic/hospital department * (ABNORMAL) BLOOD GAS ARTERIAL (12/10/2005 4:00 AM CDT) PH ARTERIAL 7.44 7.35 - 7.45 INTERFACE SYSTEM PCO2 ARTERIAL 37 35 - 48 mm Hg INTERFACE SYSTEM PO2 ARTERIAL 115(H) 83 - 108 mm Hg INTERFACE SYSTEM O2 SAT EST ARTERIAL 98 94 - 98 % INTERFACE SYSTEM HCO3 ARTERIAL 25 22 - 26 mmol/L INTERFACE SYSTEM BASE EXCESS ABG 1.0 -2.0 - 3.0 mmol/L INTERFACE SYSTEM Comment:Base Excess Estimate d; Assumes 15.0 g/dl Hemoglobin O2 CONC ARTERIAL 50% INTERFACE SYSTEM 12/10/2005 4:00 AM CDT us Wicho Gomez MD ABG ORDERABLES Final Result Performing Organization Address [facility] Phone Number INTERFACE SYSTEM Refer to clinic/hospital department * POC GLUCOSE (12/10/2005 12:01 AM CDT) GLUCOSE POC 109 65 - 109 mg/dL INTERFACE SYSTEM 12/10/2005 12:0 1 AM CDT us Wicho Gomez MD POINT OF CARE TESTING Final R esult Performing Organization Address [facility] de Phone Number INTERFACE SYSTEM Refer to clinic/hospital department * PTT (12/09/2005 10:09 PM CDT) PTT 32.5 24.4 - 36.4 Seconds INTERFACE SYSTEM Comment: PTT Therapeutic Range: Heparin Level ? PTT (seconds) <0.10 units/mL ? <53 0.10 - 0.30 units/mL ? 53 - 67 0.30 - 0.70 units/mL* ?67 - 95* 0.70 - 1.00 units/mL ?95 - 116 *corresponds to therapeutic range for unfractionated heparin ?? 12/09/2005 10:0 9 PM CDT Romie Laughlin MD HEMATOLOGY ORDERABLES Final Result Performing Organization Address [facility] de Phone Number INTERFACE SYSTEM Refer to clinic/hospital department * (ABNORMAL) POC GLUCOSE (12/09/2005 6:15 PM CDT) GLUCOSE POC 136(H) 65 - 109 mg/dL INTERFACE SYSTEM 12/09/2005 6:15 PM CDT Wicho Gomez MD POINT OF CARE TESTING Final R esult Performing Organization Address [facility] de Phone Number INTERFACE SYSTEM Refer to clinic/hospital department * (ABNORMAL) BLOOD GAS ARTERIAL (12/09/2005 5:05 PM CDT) PH ARTERIAL 7.43 7.35 - 7.45 INTERFACE SYSTEM PCO2 ARTERIAL 37 35 - 48 mm Hg INTERFACE SYSTEM PO2 ARTERIAL 161(H) 83 - 108 mm Hg INTERFACE SYSTEM SO2 ABG 99 95 - 99 % INTERFACE SYSTEM FO2HB ABG 98 94 - 98 % INTERFACE SYSTEM HCO3 ARTERIAL 24 22 - 26 mmol/L INTERFACE SYSTEM BASE EXCESS ABG -0.1 -2.0 - 3.0 mmol/L INTERFACE SYSTEM O2 CONC ARTERIAL 50% INTERFACE SYSTEM 12/09/2005 5:05 PM CDT Romie Laughlin MD ABG ORDERABLES Final Result Performing Organization Address [facility] Phone Number INTERFACE SYSTEM Refer to clinic/hospital department * (ABNORMAL) POC GLUCOSE (12/09/2005 2:55 PM CDT) GLUCOSE POC 124(H) 65 - 109 mg/dL INTERFACE SYSTEM 12/09/2005 2:55 PM CDT us Wicho Gomez MD POINT OF CARE TESTING Final R esult Performing Organization Address [facility] Phone Number INTERFACE SYSTEM Refer to clinic/hospital department * (ABNORMAL) CBC WITH DIFFERENTIAL (12/09/2005 1:41 PM CDT) NEUTROPHIL ABSOLUTE 3.72 1.90 - 7.00 K/uL INTERFACE SYSTEM LYMPHOCYTE ABSOLUTE 1.12 0.70 - 4.50 K/uL INTERFACE SYSTEM MONOCYTE ABSOLUTE 0.15 0.10 - 1.30 K/uL INTERFACE SYSTEM EOSINOPHIL ABSOLUTE 0.00 0.00 - 0.70 K/uL INTERFACE SYSTEM BASOPHILS ABSOLUTE 0.05 0.00 - 0.20 K/uL INTERFACE SYSTEM NEUTROPHILS, SEG 64 45 - 70 % INT ERFACE SYSTEM BANDS 9(H) 0 - 5 % INTERFACE SYSTEM LYMPHOCYTES 21 16 - 45 % INTERFAC E SYSTEM MONOCYTES 3 3 - 13 % INTERFACE SYSTEM EOSINOPHILS 0 0 - 7 % INTERFAC E SYSTEM BASOPHILS 1 0 - 2 % INTERFACE SYSTEM METAMYELOCYTE 1(H) <=0 % INTERF CINDY SYSTEM ATYPICAL LYMPHOCYTE 1 0 - 5 % INTERFACE SYSTEM PLATELET EST. Consistent w/ count Normal INTERFACE SYSTEM ANISOCYTOSIS Slight INTERFA CE SYSTEM POLYCHROMASIA Slight INTERF CINDY SYSTEM GIANT PLATELETS Present INTE RFACE SYSTEM REVIEWED ON SMEAR Plt OK by Smear Rev. INTERFACE SYSTEM 12/09/2005 1:41 PM CDT us Romie Laughlin MD HEMATOLOGY ORDERABLES Final Result Performing Organization Address [facility] [facility] Phone Number INTERFACE SYSTEM Refer to clinic/hospital department * (ABNORMAL) CBC WITH DIFFERENTIAL (12/09/2005 1:41 PM CDT) WBC 5.1 4.0 - 9.8 K/uL INTERFACE SYSTEM RBC 3.25(L) 4.50 - 5.40 M/uL INTERFACE SYSTEM HEMOGLOBIN 9.8(L) 13.6 - 16.5 g/dL INTERFACE SYSTEM HEMATOCRIT 30.1(L) 40.0 - 48.0 % INTERFACE SYSTEM MCV 92.6 82.0 - 99.0 fL INTERFACE SYSTEM MCH 30.2 27.2 - 32.6 pg INTERFACE SYSTEM MCHC 32.6 31.5 - 35.5 % INTERFACE SYSTEM RDW 15.9(H) 11.5 - 14.5 % INTERFACE SYSTEM RDW-STDEV 53.5(H) 37.1 - 48.7 fL INTERFACE SYSTEM PLATELETS 265 140 - 350 K/uL INTERFACE SYSTEM MPV 10.6 9.3 - 12.4 fL INTERFACE SYSTEM 12/09/2005 1:41 PM CDT us Romie Laughlin MD HEMATOLOGY ORDERABLES Final Result INTERFACE SYSTEM Refer to clinic/hospital department * (ABNORMAL) PT AND APTT (12/09/2005 1:41 PM CDT) PROTIME 16.3(H) 12.7 - 15.1 Seconds INTERFACE SYSTEM INR 1.2(H) 0.9 - 1.1 INTERFACE SYSTEM Comment: INR Therapeutic Range: Adult: 2.0 - 3.0 for pulmonary embolism or prophylaxis against venous thrombosis or systemic embolization. 2.0 - 3.0 for patients with tissue heart valves. ?? 2.5 - 3.5 for patients with mechanical heart valves or post MD. Pediatric ??(12 years and under): 1.5 - 3.0 Although the target range in children is not well established , INR values of 1.5 - 3.0 are recommended for most patients. Higher values have been used in children with prosthetic cardiac valves and hereditary clotting disorders. (<3 days) therapeutic ranges have not been established. PTT 25.9 24.4 - 36.4 Seconds INTERFACE SYSTEM Comment: PTT Therapeutic Range: Heparin Level ? PTT (seconds) <0.10 units/mL ? <53 0.10 - 0.30 units/mL ? 53 - 67 0.30 - 0.70 units/mL* ?67 - 95* 0.70 - 1.00 units/mL ?95 - 116 *corresponds to therapeutic range for unfractionated heparin ?? 12/09/2005 1:41 PM CDT Romie Laughlin MD HEMATOLOGY ORDERABLES Final Result Performing Organization Address [facility] Phone Number INTERFACE SYSTEM Refer to clinic/hospital department * PHOSPHORUS (12/09/2005 1:41 PM CDT) PHOSPHORUS 4.5 2.5 - 4.5 mg/dL INTERFACE SYSTEM 12/09/2005 1:41 PM CDT Romie Laughlin MD CHEMISTRY ORDERABLES Final R esult Performing Organization Address [facility] Phone Number INTERFACE SYSTEM Refer to clinic/hospital department * MAGNESIUM LEVEL (12/09/2005 1:41 PM CDT) MAGNESIUM 2.5 1.5 - 2.5 mg/dL INTERFACE SYSTEM 12/09/2005 1:41 PM CDT Romie Laughlin MD CHEMISTRY ORDERABLES Final R esult Performing Organization Address [facility] Phone Number INTERFACE SYSTEM Refer to clinic/hospital department * (ABNORMAL) COMPREHENSIVE METABOLIC PANEL (12/09/2005 1:41 PM CDT) GLUCOSE 137(H) 65 - 99 mg/dL INTERFACE SYSTEM CREATININE 1.2 0.5 - 1.3 mg/dL INTERFACE SYSTEM CALCIUM 6.7(L) 8.4 - 10.2 mg/dL INTERFACE SYSTEM ALKALINE PHOSPHATASE 32(L) 40 - 129 U/L INTERFACE SYSTEM AST 14 12 - 38 U/L INTERFACE SYSTEM ALT 10 0 - 41 U/L INTERFACE SYSTEM TOTAL PROTEIN 4.4(L) 6.3 - 8.6 g/dL INTERFACE SYSTEM ALBUMIN 1.6(L) 3.4 - 4.8 g/dL INTERFACE SYSTEM BILIRUBIN TOTAL 0.9 0.2 - 1.0 mg/dL INTERFACE SYSTEM BUN 38(H) 6 - 20 mg/dL INTERFACE SYSTEM SODIUM 141 135 - 145 mmol/L INTERFACE SYSTEM POTASSIUM 4.0 3.5 - 4.9 mmol/L INTERFACE SYSTEM CHLORIDE 111(H) 96 - 108 mmol/L INTERFACE SYSTEM CO2 23 22 - 30 mmol/L INTERFACE SYSTEM 12/09/2005 1:41 PM CDT Romie Laughlin MD CHEMISTRY ORDERABLES Final R esult Performing Organization Address City/[facility] Co de Phone Number INTERFACE SYSTEM Refer to clinic/hospital department * (ABNORMAL) CALCIUM IONIZED (12/09/2005 1:41 PM CDT) CALCIUM IONIZED 4.20(L) 4.76 - 5.16 mg/dL INTERFACE SYSTEM 12/09/2005 1:41 PM CDT Romie Laughlin MD CHEMISTRY ORDERABLES Final R esult Performing Organization Address City/[facility] Co de Phone Number INTERFACE SYSTEM Refer to clinic/hospital department * (ABNORMAL) BLOOD GAS ARTERIAL (12/09/2005 1:41 PM CDT) PH ARTERIAL 7.41 7.35 - 7.45 INTERFACE SYSTEM PCO2 ARTERIAL 41 35 - 48 mm Hg INTERFACE SYSTEM PO2 ARTERIAL 70(L) 83 - 108 mm Hg INTERFACE SYSTEM SO2 ABG 95 95 - 99 % INTERFACE SYSTEM FO2HB ABG 94 94 - 98 % INTERFACE SYSTEM HCO3 ARTERIAL 25 22 - 26 mmol/L INTERFACE SYSTEM BASE EXCESS ABG 0.3 -2.0 - 3.0 mmol/L INTERFACE SYSTEM O2 CONC ARTERIAL 40% INTERFACE SYSTEM 12/09/2005 1:41 PM CDT Romie aLughlin MD ABG ORDERABLES Final Result Performing Organization Address [facility] Co de Phone Number INTERFACE SYSTEM Refer to clinic/hospital department * (ABNORMAL) POC RT, BLOOD GASES (12/09/2005 12:44 PM CDT) PH ARTERIAL 7.13(AA) 7.35 - 7.45 INTERFACE SYSTEM PCO2 ARTERIAL 68(H) 35 - 48 mm Hg INTERFACE SYSTEM PO2 ARTERIAL 100 83 - 108 mm Hg INTERFACE SYSTEM O2 SAT EST ABG POC 95 95 - 99 % INTERFACE SYSTEM PATIENT'S TEMPERATURE 37.0 Degree C INTERFACE SYSTEM BASE EXCESS ABG -7.1(L) -2.0 - 3.0 mmol/L INTERFACE SYSTEM HCO3 ARTERIAL 23 22 - 26 mmol/L INTERFACE SYSTEM SODIUM POC 138 135 - 145 mmol/L INTERFACE SYSTEM POTASSIUM POC 5.5(H) 3.5 - 4.9 mmol/L INTERFACE SYSTEM CALICUM IONIZED, WHOLE BLOOD 4.93 4.76 - 5.16 mg/dL INTERFACE SYSTEM HEMATOCRIT POC 33.0(L) 40.0 - 48.0 % INTERFACE SYSTEM COMMENT, GASES POC NOTIFIED MD INTERFACE SYSTEM 12/09/2005 12:4 4 PM CDT Wicho Gomez MD CHEMISTRY ORDERABLES Final Re sult Performing Organization Address [facility] de Phone Number INTERFACE SYSTEM Refer to clinic/hospital department * POC GLUCOSE (12/09/2005 6:05 AM CDT) Pathologist [facility] GLUCOSE POC 87 65 - 109 mg/dL INTERFACE SYSTEM 12/09/2005 6:05 AM CDT Wicho Gomez MD POINT OF CARE TESTING Final R esult Performing Organization Address [facility] de Phone Number INTERFACE SYSTEM Refer to clinic/hospital department * (ABNORMAL) CBC WITH DIFFERENTIAL (12/09/2005 3:25 AM CDT) NEUTROPHIL ABSOLUTE 5.04 1.90 - 7.00 K/uL INTERFACE SYSTEM LYMPHOCYTE ABSOLUTE 1.21 0.70 - 4.50 K/uL INTERFACE SYSTEM MONOCYTE ABSOLUTE 0.50 0.10 - 1.30 K/uL INTERFACE SYSTEM EOSINOPHIL ABSOLUTE 0.00 0.00 - 0.70 K/uL INTERFACE SYSTEM BASOPHILS ABSOLUTE 0.00 0.00 - 0.20 K/uL INTERFACE SYSTEM NEUTROPHILS, SEG 68 45 - 70 % INT ERFACE SYSTEM BANDS 3 0 - 5 % INTERFACE SYSTEM LYMPHOCYTES 15(L) 16 - 45 % INTERFAC E SYSTEM MONOCYTES 7 3 - 13 % INTERFACE SYSTEM EOSINOPHILS 0 0 - 7 % INTERFAC E SYSTEM BASOPHILS 0 0 - 2 % INTERFACE SYSTEM METAMYELOCYTE 3(H) <=0 % INTERF CINDY SYSTEM MYELOCYTES 2(H) <=0 % INTERFACE SYSTEM ATYPICAL LYMPHOCYTE 2 0 - 5 % INTERFACE SYSTEM PLATELET EST. Consistent w/ count Normal INTERFACE SYSTEM ANISOCYTOSIS Slight INTERFA CE SYSTEM POIKILOCYTES Slight INTERFA CE SYSTEM POLYCHROMASIA Slight INTERF CINDY SYSTEM 12/09/2005 3:25 AM CDT Romie Laughlin MD HEMATOLOGY ORDERABLES Final Result Performing Organization Address City/[facility] Co de Phone Number INTERFACE SYSTEM Refer to clinic/hospital department * (ABNORMAL) CBC WITH DIFFERENTIAL (12/09/2005 3:25 AM CDT) WBC 7.1 4.0 - 9.8 K/uL INTERFACE SYSTEM RBC 3.46(L) 4.50 - 5.40 M/uL INTERFACE SYSTEM HEMOGLOBIN 10.5(L) 13.6 - 16.5 g/dL INTERFACE SYSTEM HEMATOCRIT 31.8(L) 40.0 - 48.0 % INTERFACE SYSTEM MCV 91.9 82.0 - 99.0 fL INTERFACE SYSTEM MCH 30.3 27.2 - 32.6 pg INTERFACE SYSTEM MCHC 33.0 31.5 - 35.5 % INTERFACE SYSTEM RDW 15.9(H) 11.5 - 14.5 % INTERFACE SYSTEM RDW-STDEV 52.5(H) 37.1 - 48.7 fL INTERFACE SYSTEM PLATELETS 266 140 - 350 K/uL INTERFACE SYSTEM MPV 10.7 9.3 - 12.4 fL INTERFACE SYSTEM 12/09/2005 3:25 AM CDT Romie Laughlin MD HEMATOLOGY ORDERABLES Final Result Performing Organization Address City/[facility] Co de Phone Number INTERFACE SYSTEM Refer to clinic/hospital department * (ABNORMAL) BLOOD GAS ARTERIAL (12/09/2005 3:25 AM CDT) PH ARTERIAL 7.44 7.35 - 7.45 INTERFACE SYSTEM PCO2 ARTERIAL 34(L) 35 - 48 mm Hg INTERFACE SYSTEM PO2 ARTERIAL 158(H) 83 - 108 mm Hg INTERFACE SYSTEM SO2 ABG 99 95 - 99 % INTERFACE SYSTEM FO2HB ABG 98 94 - 98 % INTERFACE SYSTEM HCO3 ARTERIAL 23 22 - 26 mmol/L INTERFACE SYSTEM BASE EXCESS ABG -0.9 -2.0 - 3.0 mmol/L INTERFACE SYSTEM O2 CONC ARTERIAL 40% INTERFACE SYSTEM 12/09/2005 3:25 AM CDT us Romie Laughlin MD ABG ORDERABLES Final Result INTERFACE SYSTEM Refer to clinic/hospital department * (ABNORMAL) PT AND APTT (12/09/2005 3:25 AM CDT) PROTIME 15.6(H) 12.7 - 15.1 Seconds INTERFACE SYSTEM INR 1.1 0.9 - 1.1 INTERFACE SYSTEM Comment: INR Therapeutic Range: Adult: 2.0 - 3.0 for pulmonary embolism or prophylaxis against venous thrombosis or systemic embolization. 2.0 - 3.0 for patients with tissue heart valves. ?? 2.5 - 3.5 for patients with mechanical heart valves or post MD. Pediatric ??(12 years and under): 1.5 - 3.0 Although the target range in children is not well established , INR values of 1.5 - 3.0 are recommended for most patients. Higher values have been used in children with prosthetic cardiac valves and hereditary clotting disorders. (<3 days) therapeutic ranges have not been established. PTT 30.9 24.4 - 36.4 Seconds INTERFACE SYSTEM Comment: PTT Therapeutic Range: Heparin Level ? PTT (seconds) <0.10 units/mL ? <53 0.10 - 0.30 units/mL ? 53 - 67 0.30 - 0.70 units/mL* ?67 - 95* 0.70 - 1.00 units/mL ?95 - 116 *corresponds to therapeutic range for unfractionated heparin ?? 12/09/2005 3:25 AM CDT Romie Laughlin MD HEMATOLOGY ORDERABLES Final Result Performing Organization Address [facility] Number INTERFACE SYSTEM Refer to clinic/hospital department * PHOSPHORUS (12/09/2005 3:25 AM CDT) PHOSPHORUS 2.8 2.5 - 4.5 mg/dL INTERFACE SYSTEM 12/09/2005 3:25 AM CDT Romie Laughlin MD CHEMISTRY ORDERABLES Final R esult Performing Organization Address [facility] Number INTERFACE SYSTEM Refer to clinic/hospital department * MAGNESIUM LEVEL (12/09/2005 3:25 AM CDT) MAGNESIUM 2.3 1.5 - 2.5 mg/dL INTERFACE SYSTEM 12/09/2005 3:25 AM CDT Romie Laughlin MD CHEMISTRY ORDERABLES Final R esult Performing Organization Address [facility] Phone Number INTERFACE SYSTEM Refer to clinic/hospital department * (ABNORMAL) CALCIUM IONIZED (12/09/2005 3:25 AM CDT) CALCIUM IONIZED 4.08(L) 4.76 - 5.16 mg/dL INTERFACE SYSTEM 12/09/2005 3:25 AM CDT Romie Laughlin MD CHEMISTRY ORDERABLES Final R esult Performing Organization Address [facility] Phone Number INTERFACE SYSTEM Refer to clinic/hospital department * (ABNORMAL) BASIC METABOLIC PANEL (12/09/2005 3:25 AM CDT) GLUCOSE 110(H) 65 - 99 mg/dL INTERFACE SYSTEM CREATININE 1.1 0.5 - 1.3 mg/dL INTERFACE SYSTEM CALCIUM 6.8(L) 8.4 - 10.2 mg/dL INTERFACE SYSTEM BUN 37(H) 6 - 20 mg/dL INTERFACE SYSTEM SODIUM 140 135 - 145 mmol/L INTERFACE SYSTEM POTASSIUM 4.1 3.5 - 4.9 mmol/L INTERFACE SYSTEM CHLORIDE 113(H) 96 - 108 mmol/L INTERFACE SYSTEM CO2 21(L) 22 - 30 mmol/L INTERFACE SYSTEM 12/09/2005 3:25 AM CDT Romie Laughlin MD CHEMISTRY ORDERABLES Final R esult Performing Organization Address [facility] de Phone Number INTERFACE SYSTEM Refer to clinic/hospital department * (ABNORMAL) POC GLUCOSE (12/09/2005 12:13 AM CDT) GLUCOSE POC 121(H) 65 - 109 mg/dL INTERFACE SYSTEM 12/09/2005 12:1 3 AM CDT us Wicho Gomez MD POINT OF CARE TESTING Final R formerly [facility] Performing Organization Address [facility] de Phone Number INTERFACE SYSTEM Refer to clinic/hospital department * (ABNORMAL) PT AND APTT (12/08/2005 11:25 PM CDT) PTT 66.9(H) 24.4 - 36.4 Seconds INTERFACE SYSTEM Comment: PTT Therapeutic Range: Heparin Level ? PTT (seconds) <0.10 units/mL ? <53 0.10 - 0.30 units/mL ? 53 - 67 0.30 - 0.70 units/mL* ?67 - 95* 0.70 - 1.00 units/mL ?95 - 116 *corresponds to therapeutic range for unfractionated heparin ?? PROTIME 16.5(H) 12.7 - 15.1 Seconds INTERFACE SYSTEM INR 1.2(H) 0.9 - 1.1 INTERFACE SYSTEM Comment: INR Therapeutic Range: Adult: 2.0 - 3.0 for pulmonary embolism or prophylaxis against venous thrombosis or systemic embolization. 2.0 - 3.0 for patients with tissue heart valves. ?? 2.5 - 3.5 for patients with mechanical heart valves or post MD. Pediatric ??(12 years and under): 1.5 - 3.0 Although the target range in children is not well established , INR values of 1.5 - 3.0 are recommended for most patients. Higher values have been used in children with prosthetic cardiac valves and hereditary clotting disorders. (<3 days) therapeutic ranges have not been established. 12/08/2005 11:2 5 PM CDT us Romie Laughlin MD HEMATOLOGY ORDERABLES Final Result Performing Organization Address City/[facility] Co de Phone Number INTERFACE SYSTEM Refer to clinic/hospital department * (ABNORMAL) POC GLUCOSE (12/08/2005 5:09 PM CDT) GLUCOSE POC 158(H) 65 - 109 mg/dL INTERFACE SYSTEM 12/08/2005 5:09 PM CDT us Wicho Gomez MD POINT OF CARE TESTING Final R esult Performing Organization Address [facility] de Phone Number INTERFACE SYSTEM Refer to clinic/hospital department * (ABNORMAL) PT AND APTT (12/08/2005 4:00 PM CDT) PROTIME 17.3(H) 12.7 - 15.1 Seconds INTERFACE SYSTEM INR 1.3(H) 0.9 - 1.1 INTERFACE SYSTEM Comment: INR Therapeutic Range: Adult: 2.0 - 3.0 for pulmonary embolism or prophylaxis against venous thrombosis or systemic embolization. 2.0 - 3.0 for patients with tissue heart valves. ?? 2.5 - 3.5 for patients with mechanical heart valves or post MD. Pediatric ??(12 years and under): 1.5 - 3.0 Although the target range in children is not well established , INR values of 1.5 - 3.0 are recommended for most patients. Higher values have been used in children with prosthetic cardiac valves and hereditary clotting disorders. (<3 days) therapeutic ranges have not been established. PTT 79.1(H) 24.4 - 36.4 Seconds INTERFACE SYSTEM Comment: PTT Therapeutic Range: Heparin Level ? PTT (seconds) <0.10 units/mL ? <53 0.10 - 0.30 units/mL ? 53 - 67 0.30 - 0.70 units/mL* ?67 - 95* 0.70 - 1.00 units/mL ?95 - 116 *corresponds to therapeutic range for unfractionated heparin ?? 12/08/2005 4:00 PM CDT us Romie Laughlin MD HEMATOLOGY ORDERABLES Final Result Performing Organization Address [facility] Phone Number INTERFACE SYSTEM Refer to clinic/hospital department * (ABNORMAL) POC GLUCOSE (12/08/2005 11:19 AM CDT) GLUCOSE POC 152(H) 65 - 109 mg/dL INTERFACE SYSTEM 12/08/2005 11:1 9 AM CDT us Wicho Gomez MD POINT OF CARE TESTING Final R esult Performing Organization Address [facility] Phone Number INTERFACE SYSTEM Refer to clinic/hospital department * (ABNORMAL) PT AND APTT (12/08/2005 10:20 AM CDT) PROTIME 16.2(H) 12.7 - 15.1 Seconds INTERFACE SYSTEM INR 1.2(H) 0.9 - 1.1 INTERFACE SYSTEM Comment: INR Therapeutic Range: Adult: 2.0 - 3.0 for pulmonary embolism or prophylaxis against venous thrombosis or systemic embolization. 2.0 - 3.0 for patients with tissue heart valves. ?? 2.5 - 3.5 for patients with mechanical heart valves or post MD. Pediatric ??(12 years and under): 1.5 - 3.0 Although the target range in children is not well established , INR values of 1.5 - 3.0 are recommended for most patients. Higher values have been used in children with prosthetic cardiac valves and hereditary clotting disorders. (<3 days) therapeutic ranges have not been established. PTT 62.9(H) 24.4 - 36.4 Seconds INTERFACE SYSTEM Comment: PTT Therapeutic Range: Heparin Level ? PTT (seconds) <0.10 units/mL ? <53 0.10 - 0.30 units/mL ? 53 - 67 0.30 - 0.70 units/mL* ?67 - 95* 0.70 - 1.00 units/mL ?95 - 116 *corresponds to therapeutic range for unfractionated heparin ?? 12/08/2005 10:2 0 AM CDT Romie Laughlin MD HEMATOLOGY ORDERABLES Final Result Performing Organization Address [facility] de Phone Number INTERFACE SYSTEM Refer to clinic/hospital department * (ABNORMAL) PTT (12/08/2005 3:22 AM CDT) PTT 58.5(H) 24.4 - 36.4 Seconds INTERFACE SYSTEM Comment: PTT Therapeutic Range: Heparin Level ? PTT (seconds) <0.10 units/mL ? <53 0.10 - 0.30 units/mL ? 53 - 67 0.30 - 0.70 units/mL* ?67 - 95* 0.70 - 1.00 units/mL ?95 - 116 *corresponds to therapeutic range for unfractionated heparin ?? 12/08/2005 3:22 AM CDT us Wicho Gomez MD HEMATOLOGY ORDERABLES Final R esult Performing Organization Address [facility] de Phone Number INTERFACE SYSTEM Refer to clinic/hospital department * (ABNORMAL) BLOOD GAS ARTERIAL (12/08/2005 3:22 AM CDT) PH ARTERIAL 7.38 7.35 - 7.45 INTERFACE SYSTEM PCO2 ARTERIAL 45 35 - 48 mm Hg INTERFACE SYSTEM PO2 ARTERIAL 114(H) 83 - 108 mm Hg INTERFACE SYSTEM SO2 ABG 99 95 - 99 % INTERFACE SYSTEM FO2HB ABG 99(H) 94 - 98 % INTERFACE SYSTEM HCO3 ARTERIAL 26 22 - 26 mmol/L INTERFACE SYSTEM BASE EXCESS ABG 0.4 -2.0 - 3.0 mmol/L INTERFACE SYSTEM O2 CONC ARTERIAL 40 INTERFACE SYSTEM 12/08/2005 3:22 AM CDT us Wicho Gomez MD ABG ORDERABLES Final Result Performing Organization Address [facility] de Phone Number INTERFACE SYSTEM Refer to clinic/hospital department * (ABNORMAL) CBC WITH DIFFERENTIAL (12/08/2005 3:22 AM CDT) NEUTROPHIL ABSOLUTE 5.10 1.90 - 7.00 K/uL INTERFACE SYSTEM LYMPHOCYTE ABSOLUTE 1.43 0.70 - 4.50 K/uL INTERFACE SYSTEM MONOCYTE ABSOLUTE 0.27 0.10 - 1.30 K/uL INTERFACE SYSTEM EOSINOPHIL ABSOLUTE 0.00 0.00 - 0.70 K/uL INTERFACE SYSTEM BASOPHILS ABSOLUTE 0.00 0.00 - 0.20 K/uL INTERFACE SYSTEM NEUTROPHILS, SEG 72(H) 45 - 70 % INT ERFACE SYSTEM BANDS 3 0 - 5 % INTERFACE SYSTEM LYMPHOCYTES 21 16 - 45 % INTERFAC E SYSTEM MONOCYTES 4 3 - 13 % INTERFACE SYSTEM EOSINOPHILS 0 0 - 7 % INTERFAC E SYSTEM BASOPHILS 0 0 - 2 % INTERFACE SYSTEM PLATELET EST. Consistent w/ count Normal INTERFACE SYSTEM ANISOCYTOSIS Slight INTERFA CE SYSTEM POIKILOCYTES Slight INTERFA CE SYSTEM BASOPHILIC STIPPLING Slight INTERFACE SYSTEM 12/08/2005 3:22 AM CDT us Romie Laughlin MD HEMATOLOGY ORDERABLES Final Result Performing Organization Address [facility] de Phone Number INTERFACE SYSTEM Refer to clinic/hospital department * (ABNORMAL) CBC WITH DIFFERENTIAL (12/08/2005 3:22 AM CDT) WBC 6.8 4.0 - 9.8 K/uL INTERFACE SYSTEM RBC 3.11(L) 4.50 - 5.40 M/uL INTERFACE SYSTEM HEMOGLOBIN 9.6(L) 13.6 - 16.5 g/dL INTERFACE SYSTEM HEMATOCRIT 29.1(L) 40.0 - 48.0 % INTERFACE SYSTEM MCV 93.6 82.0 - 99.0 fL INTERFACE SYSTEM MCH 30.9 27.2 - 32.6 pg INTERFACE SYSTEM MCHC 33.0 31.5 - 35.5 % INTERFACE SYSTEM RDW 15.9(H) 11.5 - 14.5 % INTERFACE SYSTEM RDW-STDEV 53.9(H) 37.1 - 48.7 fL INTERFACE SYSTEM PLATELETS 272 140 - 350 K/uL INTERFACE SYSTEM MPV 10.5 9.3 - 12.4 fL INTERFACE SYSTEM 12/08/2005 3:22 AM CDT Romie Laughlin MD HEMATOLOGY ORDERABLES Final Result Performing Organization Address [facility] Phone Number INTERFACE SYSTEM Refer to clinic/hospital department * (ABNORMAL) CALCIUM IONIZED (12/08/2005 3:22 AM CDT) CALCIUM IONIZED 4.28(L) 4.76 - 5.16 mg/dL INTERFACE SYSTEM 12/08/2005 3:22 AM CDT Romie Laughlin MD CHEMISTRY ORDERABLES Final R esult Performing Organization Address [facility] Phone Number INTERFACE SYSTEM Refer to clinic/hospital department * PHOSPHORUS (12/08/2005 3:22 AM CDT) PHOSPHORUS 2.5 2.5 - 4.5 mg/dL INTERFACE SYSTEM 12/08/2005 3:22 AM CDT Romie Laughlin MD CHEMISTRY ORDERABLES Final R esult Performing Organization Address [facility] Phone Number INTERFACE SYSTEM Refer to clinic/hospital department * MAGNESIUM LEVEL (12/08/2005 3:22 AM CDT) MAGNESIUM 2.2 1.5 - 2.5 mg/dL INTERFACE SYSTEM 12/08/2005 3:22 AM CDT Romie Laughlin MD CHEMISTRY ORDERABLES Final R esult Performing Organization Address [facility] Phone Number INTERFACE SYSTEM Refer to clinic/hospital department * (ABNORMAL) BASIC METABOLIC PANEL (12/08/2005 3:22 AM CDT) GLUCOSE 153(H) 65 - 99 mg/dL INTERFACE SYSTEM CREATININE 1.0 0.5 - 1.3 mg/dL INTERFACE SYSTEM CALCIUM 6.2(AA) 8.6 - 10.2 mg/dL INTERFACE SYSTEM Comment: Results called to nurse at 12/08/2005 3:48 AM and read back verified. Persistent abnormal result BUN 35(H) 6 - 20 mg/dL INTERFACE SYSTEM SODIUM 139 135 - 145 mmol/L INTERFACE SYSTEM POTASSIUM 4.1 3.5 - 4.9 mmol/L INTERFACE SYSTEM CHLORIDE 112(H) 96 - 108 mmol/L INTERFACE SYSTEM CO2 20(L) 22 - 30 mmol/L INTERFACE SYSTEM 12/08/2005 3:22 AM CDT Romie Laughlin MD CHEMISTRY ORDERABLES Final R formerly [facility] Performing Organization Address [facility] Phone Number INTERFACE SYSTEM Refer to clinic/hospital department * (ABNORMAL) POC GLUCOSE (12/08/2005 12:08 AM CDT) COMMENT, GLU POC Notified RN INTERFACE SYSTEM GLUCOSE POC 136(H) 65 - 109 mg/dL INTERFACE SYSTEM 12/08/2005 12:0 8 AM CDT Wicho Gomez MD POINT OF CARE TESTING Final R esult Performing Organization Address [facility] Phone Number INTERFACE SYSTEM Refer to clinic/hospital department * (ABNORMAL) PT AND APTT (12/07/2005 9:58 PM CDT) PROTIME 17.4(H) 12.7 - 15.1 Seconds INTERFACE SYSTEM INR 1.3(H) 0.9 - 1.1 INTERFACE SYSTEM Comment: INR Therapeutic Range: Adult: 2.0 - 3.0 for pulmonary embolism or prophylaxis against venous thrombosis or systemic embolization. 2.0 - 3.0 for patients with tissue heart valves. ?? 2.5 - 3.5 for patients with mechanical heart valves or post MD. Pediatric ??(12 years and under): 1.5 - 3.0 Although the target range in children is not well established , INR values of 1.5 - 3.0 are recommended for most patients. Higher values have been used in children with prosthetic cardiac valves and hereditary clotting disorders. (<3 days) therapeutic ranges have not been established. PTT 54.3(H) 24.4 - 36.4 Seconds INTERFACE SYSTEM Comment: PTT Therapeutic Range: Heparin Level ? PTT (seconds) <0.10 units/mL ? <53 0.10 - 0.30 units/mL ? 53 - 67 0.30 - 0.70 units/mL* ?67 - 95* 0.70 - 1.00 units/mL ?95 - 116 *corresponds to therapeutic range for unfractionated heparin ?? 12/07/2005 9:58 PM CDT us Romie Laughlin MD HEMATOLOGY ORDERABLES Final Result Performing Organization Address [facility] de Phone Number INTERFACE SYSTEM Refer to clinic/hospital department * (ABNORMAL) POC GLUCOSE (12/07/2005 5:10 PM CDT) GLUCOSE POC 207(H) 65 - 109 mg/dL INTERFACE SYSTEM 12/07/2005 5:10 PM CDT us Wicho Gomez MD POINT OF CARE TESTING Final R esult Performing Organization Address [facility] Co de Phone Number INTERFACE SYSTEM Refer to clinic/hospital department * (ABNORMAL) PT AND APTT (12/07/2005 4:00 PM CDT) PROTIME 18.9(H) 12.7 - 15.1 Seconds INTERFACE SYSTEM INR 1.5(H) 0.9 - 1.1 INTERFACE SYSTEM Comment: INR Therapeutic Range: Adult: 2.0 - 3.0 for pulmonary embolism or prophylaxis against venous thrombosis or systemic embolization. 2.0 - 3.0 for patients with tissue heart valves. ?? 2.5 - 3.5 for patients with mechanical heart valves or post MD. Pediatric ??(12 years and under): 1.5 - 3.0 Although the target range in children is not well established , INR values of 1.5 - 3.0 are recommended for most patients. Higher values have been used in children with prosthetic cardiac valves and hereditary clotting disorders. (<3 days) therapeutic ranges have not been established. PTT 46.6(H) 24.4 - 36.4 Seconds INTERFACE SYSTEM Comment: PTT Therapeutic Range: Heparin Level ? PTT (seconds) <0.10 units/mL ? <53 0.10 - 0.30 units/mL ? 53 - 67 0.30 - 0.70 units/mL* ?67 - 95* 0.70 - 1.00 units/mL ?95 - 116 *corresponds to therapeutic range for unfractionated heparin ?? 12/07/2005 4:00 PM CDT us Romie Laughlin MD HEMATOLOGY ORDERABLES Final Result Performing Organization Address City/State/[facility] Co de Phone Number INTERFACE SYSTEM Refer to clinic/hospital department * (ABNORMAL) POC GLUCOSE (12/07/2005 12:14 PM CDT) GLUCOSE POC 138(H) 65 - 109 mg/dL INTERFACE SYSTEM 12/07/2005 12:1 4 PM CDT us Wicho Gomez MD POINT OF CARE TESTING Final R esult INTERFACE SYSTEM Refer to clinic/hospital department * (ABNORMAL) PT AND APTT (12/07/2005 9:45 AM CDT) PTT 80.0(H) 24.4 - 36.4 Seconds INTERFACE SYSTEM Comment: PTT Therapeutic Range: Heparin Level ? PTT (seconds) <0.10 units/mL ? <53 0.10 - 0.30 units/mL ? 53 - 67 0.30 - 0.70 units/mL* ?67 - 95* 0.70 - 1.00 units/mL ?95 - 116 *corresponds to therapeutic range for unfractionated heparin ?? PROTIME 21.9(H) 12.7 - 15.1 Seconds INTERFACE SYSTEM INR 1.8(H) 0.9 - 1.1 INTERFACE SYSTEM Comment: INR Therapeutic Range: Adult: 2.0 - 3.0 for pulmonary embolism or prophylaxis against venous thrombosis or systemic embolization. 2.0 - 3.0 for patients with tissue heart valves. ?? 2.5 - 3.5 for patients with mechanical heart valves or post MD. Pediatric ??(12 years and under): 1.5 - 3.0 Although the target range in children is not well established , INR values of 1.5 - 3.0 are recommended for most patients. Higher values have been used in children with prosthetic cardiac valves and hereditary clotting disorders. (<3 days) therapeutic ranges have not been established. 12/07/2005 9:45 AM CDT us Romie Laughlin MD HEMATOLOGY ORDERABLES Final Result Performing Organization Address City/State/[facility] Co de Phone Number INTERFACE SYSTEM Refer to clinic/hospital department * (ABNORMAL) POC GLUCOSE (12/07/2005 5:52 AM CDT) COMMENT, GLU POC Notified RN INTERFACE SYSTEM GLUCOSE POC 110(H) 65 - 109 mg/dL INTERFACE SYSTEM 12/07/2005 5:52 AM CDT Wicho Gomez MD POINT OF CARE TESTING Final R [facility] Performing Organization Address [facility] Phone Number INTERFACE SYSTEM Refer to clinic/hospital department * (ABNORMAL) PTT (12/07/2005 3:20 AM CDT) PTT 48.1(H) 24.4 - 36.4 Seconds INTERFACE SYSTEM Comment: PTT Therapeutic Range: Heparin Level ? PTT (seconds) <0.10 units/mL ? <53 0.10 - 0.30 units/mL ? 53 - 67 0.30 - 0.70 units/mL* ?67 - 95* 0.70 - 1.00 units/mL ?95 - 116 *corresponds to therapeutic range for unfractionated heparin ?? 12/07/2005 3:20 AM CDT Wicho Gomez MD HEMATOLOGY ORDERABLES Final R [facility] Performing Organization Address [facility] Phone Number INTERFACE SYSTEM Refer to clinic/hospital department * (ABNORMAL) BLOOD GAS ARTERIAL (12/07/2005 3:19 AM CDT) PH ARTERIAL 7.37 7.35 - 7.45 INTERFACE SYSTEM PCO2 ARTERIAL 40 35 - 48 mm Hg INTERFACE SYSTEM PO2 ARTERIAL 133(H) 83 - 108 mm Hg INTERFACE SYSTEM O2 SAT EST ARTERIAL 99(H) 94 - 98 % INTERFACE SYSTEM HCO3 ARTERIAL 23 22 - 26 mmol/L INTERFACE SYSTEM BASE EXCESS ABG -2.3(L) -2.0 - 3.0 mmol/L INTERFACE SYSTEM O2 CONC ARTERIAL 40 INTERFACE SYSTEM 12/07/2005 3:19 AM CDT Wicho Gomez MD ABG ORDERABLES Final Result Performing Organization Address [facility] Phone Number INTERFACE SYSTEM Refer to clinic/hospital department * (ABNORMAL) CBC WITH DIFFERENTIAL (12/07/2005 3:19 AM CDT) NEUTROPHILS 79(H) 45 - 70 % INTERFAC E SYSTEM LYMPHOCYTES 13(L) 16 - 45 % INTERFAC E SYSTEM MONOCYTES 8 3 - 13 % INTERFACE SYSTEM EOSINOPHILS 0 0 - 7 % INTERFAC E SYSTEM BASOPHILS 0 0 - 2 % INTERFACE SYSTEM NEUTROPHIL ABSOLUTE 5.68 1.90 - 7.00 K/uL INTERFACE SYSTEM LYMPHOCYTE ABSOLUTE 0.95 0.70 - 4.50 K/uL INTERFACE SYSTEM MONOCYTE ABSOLUTE 0.54 0.10 - 1.30 K/uL INTERFACE SYSTEM EOSINOPHIL ABSOLUTE 0.01 0.00 - 0.70 K/uL INTERFACE SYSTEM BASOPHILS ABSOLUTE 0.02 0.00 - 0.20 K/uL INTERFACE SYSTEM 12/07/2005 3:19 AM CDT Wicho Gomez MD HEMATOLOGY ORDERABLES Final R esult Performing Organization Address City/[facility] de Phone Number INTERFACE SYSTEM Refer to clinic/hospital department * (ABNORMAL) CBC WITH DIFFERENTIAL (12/07/2005 3:19 AM CDT) WBC 7.2 4.0 - 9.8 K/uL INTERFACE SYSTEM RBC 3.34(L) 4.50 - 5.40 M/uL INTERFACE SYSTEM HEMOGLOBIN 10.0(L) 13.6 - 16.5 g/dL INTERFACE SYSTEM HEMATOCRIT 31.2(L) 40.0 - 48.0 % INTERFACE SYSTEM MCV 93.4 82.0 - 99.0 fL INTERFACE SYSTEM MCH 29.9 27.2 - 32.6 pg INTERFACE SYSTEM MCHC 32.1 31.5 - 35.5 % INTERFACE SYSTEM RDW 16.3(H) 11.5 - 14.5 % INTERFACE SYSTEM RDW-STDEV 55.0(H) 37.1 - 48.7 fL INTERFACE SYSTEM PLATELETS 237 140 - 350 K/uL INTERFACE SYSTEM MPV 10.5 9.3 - 12.4 fL INTERFACE SYSTEM 12/07/2005 3:19 AM CDT Wicho Gomez MD HEMATOLOGY ORDERABLES Final R esult Performing Organization Address City/State/[facility] Phone Number INTERFACE SYSTEM Refer to clinic/hospital department * PHOSPHORUS (12/07/2005 3:19 AM CDT) PHOSPHORUS 3.3 2.5 - 4.5 mg/dL INTERFACE SYSTEM 12/07/2005 3:19 AM CDT us Wicho Gomez MD CHEMISTRY ORDERABLES Final Re sult Performing Organization Address [facility] Phone Number INTERFACE SYSTEM Refer to clinic/hospital department * MAGNESIUM LEVEL (12/07/2005 3:19 AM CDT) MAGNESIUM 2.3 1.5 - 2.5 mg/dL INTERFACE SYSTEM 12/07/2005 3:19 AM CDT us Wicho Gomez MD CHEMISTRY ORDERABLES Final Re sult Performing Organization Address [facility] Phone Number INTERFACE SYSTEM Refer to clinic/hospital department * (ABNORMAL) CALCIUM IONIZED (12/07/2005 3:19 AM CDT) CALCIUM IONIZED 4.08(L) 4.76 - 5.16 mg/dL INTERFACE SYSTEM 12/07/2005 3:19 AM CDT us Wicho Gomez MD CHEMISTRY ORDERABLES Final Re sult Performing Organization Address [facility] Phone Number INTERFACE SYSTEM Refer to clinic/hospital department * (ABNORMAL) BASIC METABOLIC PANEL (12/07/2005 3:19 AM CDT) GLUCOSE 137(H) 65 - 99 mg/dL INTERFACE SYSTEM CREATININE 1.1 0.5 - 1.3 mg/dL INTERFACE SYSTEM CALCIUM 6.3(AA) 8.6 - 10.2 mg/dL INTERFACE SYSTEM Comment: Verified by repeat analysis. Results called to Jannette at 12/07/2005 3:51 AM and read back verified. BUN 35(H) 6 - 20 mg/dL INTERFACE SYSTEM SODIUM 139 135 - 145 mmol/L INTERFACE SYSTEM POTASSIUM 4.2 3.5 - 4.9 mmol/L INTERFACE SYSTEM CHLORIDE 113(H) 96 - 108 mmol/L INTERFACE SYSTEM CO2 22 22 - 30 mmol/L INTERFACE SYSTEM 12/07/2005 3:19 AM CDT Wicho Gomez MD CHEMISTRY ORDERABLES Final Re sult Performing Organization Address [facility] de Phone Number INTERFACE SYSTEM Refer to clinic/hospital department * (ABNORMAL) POC GLUCOSE (12/07/2005 12:24 AM CDT) COMMENT, GLU POC Notified RN INTERFACE SYSTEM GLUCOSE POC 140(H) 65 - 109 mg/dL INTERFACE SYSTEM 12/07/2005 12:2 4 AM CDT Wicho Gomez MD POINT OF CARE TESTING Final R esult Performing Organization Address [facility] Phone Number INTERFACE SYSTEM Refer to clinic/hospital department * PTT (12/06/2005 8:00 PM CDT) PTT 31.0 24.4 - 36.4 Seconds INTERFACE SYSTEM Comment: PTT Therapeutic Range: Heparin Level ? PTT (seconds) <0.10 units/mL ? <53 0.10 - 0.30 units/mL ? 53 - 67 0.30 - 0.70 units/mL* ?67 - 95* 0.70 - 1.00 units/mL ?95 - 116 *corresponds to therapeutic range for unfractionated heparin ?? 12/06/2005 8:00 PM CDT us Wicho Gomez MD HEMATOLOGY ORDERABLES Final R esult Performing Organization Address [facility] de Phone Number INTERFACE SYSTEM Refer to clinic/hospital department * (ABNORMAL) POC GLUCOSE (12/06/2005 6:34 PM CDT) GLUCOSE POC 132(H) 65 - 109 mg/dL INTERFACE SYSTEM 12/06/2005 6:34 PM CDT us Wicho Gomez MD POINT OF CARE TESTING Final R esult Performing Organization Address City/[facility] de Phone Number INTERFACE SYSTEM Refer to clinic/hospital department * (ABNORMAL) POC GLUCOSE (12/06/2005 11:40 AM CDT) GLUCOSE POC 139(H) 65 - 109 mg/dL INTERFACE SYSTEM 12/06/2005 11:4 0 AM CDT us Wicho Gomez MD POINT OF CARE TESTING Final R esult Performing Organization Address [facility] Phone Number INTERFACE SYSTEM Refer to clinic/hospital department * BLOOD GAS ARTERIAL (12/06/2005 10:20 AM CDT) PH ARTERIAL 7.36 7.35 - 7.45 INTERFACE SYSTEM PCO2 ARTERIAL 42 35 - 48 mm Hg INTERFACE SYSTEM PO2 ARTERIAL 95 83 - 108 mm Hg INTERFACE SYSTEM SO2 ABG 98 95 - 99 % INTERFACE SYSTEM FO2HB ABG 97 94 - 98 % INTERFACE SYSTEM HCO3 ARTERIAL 23 22 - 26 mmol/L INTERFACE SYSTEM BASE EXCESS ABG -1.9 -2.0 - 3.0 mmol/L INTERFACE SYSTEM O2 CONC ARTERIAL 80 INTERFACE SYSTEM 12/06/2005 10:2 0 AM CDT us Wicho Gomez MD ABG ORDERABLES Final Result Performing Organization Address [facility] Phone Number INTERFACE SYSTEM Refer to clinic/hospital department * PHOSPHORUS (12/06/2005 10:20 AM CDT) PHOSPHORUS 3.8 2.5 - 4.5 mg/dL INTERFACE SYSTEM 12/06/2005 10:2 0 AM CDT us Wicho Gomez MD CHEMISTRY ORDERABLES Final Re sult Performing Organization Address City/[facility] de Phone Number INTERFACE SYSTEM Refer to clinic/hospital department * MAGNESIUM LEVEL (12/06/2005 10:20 AM CDT) MAGNESIUM 2.2 1.5 - 2.5 mg/dL INTERFACE SYSTEM 12/06/2005 10:2 0 AM CDT us Wicho Gomez MD CHEMISTRY ORDERABLES Final Re sult Performing Organization Address [facility] Phone Number INTERFACE SYSTEM Refer to clinic/hospital department * (ABNORMAL) CALCIUM IONIZED (12/06/2005 10:20 AM CDT) CALCIUM IONIZED 3.84(L) 4.76 - 5.16 mg/dL INTERFACE SYSTEM 12/06/2005 10:2 0 AM CDT us Wicho Gomez MD CHEMISTRY ORDERABLES Final Re sult Performing Organization Address [facility] Phone Number INTERFACE SYSTEM Refer to clinic/hospital department * (ABNORMAL) BASIC METABOLIC PANEL (12/06/2005 10:20 AM CDT) GLUCOSE 128(H) 65 - 99 mg/dL INTERFACE SYSTEM CREATININE 1.0 0.5 - 1.3 mg/dL INTERFACE SYSTEM CALCIUM 6.3(AA) 8.6 - 10.2 mg/dL INTERFACE SYSTEM Comment:Results called to lucas evans at 12/06/2005 11:36 AM and read back verified. BUN 31(H) 6 - 20 mg/dL INTERFACE SYSTEM SODIUM 142 135 - 145 mmol/L INTERFACE SYSTEM POTASSIUM 4.1 3.5 - 4.9 mmol/L INTERFACE SYSTEM CHLORIDE 113(H) 96 - 108 mmol/L INTERFACE SYSTEM CO2 22 22 - 30 mmol/L INTERFACE SYSTEM 12/06/2005 10:2 0 AM CDT us Wicho Gomez MD CHEMISTRY ORDERABLES Final Re sult Performing Organization Address [facility] Phone Number INTERFACE SYSTEM Refer to clinic/hospital department * (ABNORMAL) CBC WITH DIFFERENTIAL (12/06/2005 10:20 AM CDT) NEUTROPHIL ABSOLUTE 7.57(H) 1.90 - 7.00 K/uL INTERFACE SYSTEM LYMPHOCYTE ABSOLUTE 0.96 0.70 - 4.50 K/uL INTERFACE SYSTEM MONOCYTE ABSOLUTE 0.09(L) 0.10 - 1.30 K/uL INTERFACE SYSTEM EOSINOPHIL ABSOLUTE 0.00 0.00 - 0.70 K/uL INTERFACE SYSTEM BASOPHILS ABSOLUTE 0.00 0.00 - 0.20 K/uL INTERFACE SYSTEM NEUTROPHILS, SEG 84(H) 45 - 70 % INT ERFACE SYSTEM BANDS 3 0 - 5 % INTERFACE SYSTEM LYMPHOCYTES 10(L) 16 - 45 % INTERFAC E SYSTEM MONOCYTES 1(L) 3 - 13 % INTERFACE SYSTEM EOSINOPHILS 0 0 - 7 % INTERFAC E SYSTEM BASOPHILS 0 0 - 2 % INTERFACE SYSTEM MYELOCYTES 1(H) <=0 % INTERFACE SYSTEM ATYPICAL LYMPHOCYTE 1 0 - 5 % INTERFACE SYSTEM PLATELET EST. Consistent w/ count Normal INTERFACE SYSTEM ANISOCYTOSIS Slight INTERFA CE SYSTEM MACROCYTES Slight INTERFACE SYSTEM POLYCHROMASIA Slight INTERF ICNDY SYSTEM BASOPHILIC STIPPLING Slight INTERFACE SYSTEM 12/06/2005 10:2 0 AM CDT us Wicho Gomez MD HEMATOLOGY ORDERABLES Final R esult INTERFACE SYSTEM Refer to clinic/hospital department * (ABNORMAL) CBC WITH DIFFERENTIAL (12/06/2005 10:20 AM CDT) Pathologist [facility] WBC 8.7 4.0 - 9.8 K/uL INTERFACE SYSTEM RBC 3.49(L) 4.50 - 5.40 M/uL INTERFACE SYSTEM HEMOGLOBIN 10.6(L) 13.6 - 16.5 g/dL INTERFACE SYSTEM HEMATOCRIT 32.5(L) 40.0 - 48.0 % INTERFACE SYSTEM MCV 93.1 82.0 - 99.0 fL INTERFACE SYSTEM MCH 30.4 27.2 - 32.6 pg INTERFACE SYSTEM MCHC 32.6 31.5 - 35.5 % INTERFACE SYSTEM RDW 16.2(H) 11.5 - 14.5 % INTERFACE SYSTEM RDW-STDEV 55.0(H) 37.1 - 48.7 fL INTERFACE SYSTEM PLATELETS 224 140 - 350 K/uL INTERFACE SYSTEM MPV 10.4 9.3 - 12.4 fL INTERFACE SYSTEM 12/06/2005 10:2 0 AM CDT us Wicho Gomez MD HEMATOLOGY ORDERABLES Final R esult Performing Organization Address [facility] de Phone Number INTERFACE SYSTEM Refer to clinic/hospital department * (ABNORMAL) POC GLUCOSE (12/06/2005 9:40 AM CDT) GLUCOSE POC 135(H) 65 - 109 mg/dL INTERFACE SYSTEM 12/06/2005 9:40 AM CDT us Wicho Gomez MD POINT OF CARE TESTING Final R esult Performing Organization Address [facility] Phone Number INTERFACE SYSTEM Refer to clinic/hospital department * (ABNORMAL) POC RT, BLOOD GASES (12/06/2005 9:32 AM CDT) PH ARTERIAL 7.38 7.35 - 7.45 INTERFACE SYSTEM PCO2 ARTERIAL 39 35 - 48 mm Hg INTERFACE SYSTEM PO2 ARTERIAL 130(H) 83 - 108 mm Hg INTERFACE SYSTEM O2 SAT EST ABG POC 99 95 - 99 % INTERFACE SYSTEM PATIENT'S TEMPERATURE 37.0 Degree C INTERFACE SYSTEM BASE EXCESS ABG -1.8 -2.0 - 3.0 mmol/L INTERFACE SYSTEM HCO3 ARTERIAL 23 22 - 26 mmol/L INTERFACE SYSTEM SODIUM POC 139 135 - 145 mmol/L INTERFACE SYSTEM POTASSIUM POC 4.0 3.5 - 4.9 mmol/L INTERFACE SYSTEM CALICUM IONIZED, WHOLE BLOOD 4.09(L) 4.76 - 5.16 mg/dL INTERFACE SYSTEM HEMATOCRIT POC 28.0(L) 40.0 - 48.0 % INTERFACE SYSTEM COMMENT, GASES POC NOTIFIED INTERFACE SYSTEM 12/06/2005 9:32 AM CDT us Wicho Gomez MD CHEMISTRY ORDERABLES Final Re sult Performing Organization Address [facility] de Phone Number INTERFACE SYSTEM Refer to clinic/hospital department * (ABNORMAL) POC RT, BLOOD GASES (12/06/2005 8:10 AM CDT) PH ARTERIAL 7.42 7.35 - 7.45 INTERFACE SYSTEM PCO2 ARTERIAL 38 35 - 48 mm Hg INTERFACE SYSTEM PO2 ARTERIAL 250(H) 83 - 108 mm Hg INTERFACE SYSTEM O2 SAT EST ABG POC 100(H) 95 - 99 % INTERFACE SYSTEM PATIENT'S TEMPERATURE 37.0 Degree C INTERFACE SYSTEM BASE EXCESS ABG 0.2 -2.0 - 3.0 mmol/L INTERFACE SYSTEM HCO3 ARTERIAL 25 22 - 26 mmol/L INTERFACE SYSTEM SODIUM POC 138 135 - 145 mmol/L INTERFACE SYSTEM POTASSIUM POC 4.3 3.5 - 4.9 mmol/L INTERFACE SYSTEM CALICUM IONIZED, WHOLE BLOOD 4.25(L) 4.76 - 5.16 mg/dL INTERFACE SYSTEM HEMATOCRIT POC 28.0(L) 40.0 - 48.0 % INTERFACE SYSTEM COMMENT, GASES POC NOTIFIED INTERFACE SYSTEM 12/06/2005 8:10 AM CDT us Wicho Gomez MD CHEMISTRY ORDERABLES Final Re sult INTERFACE SYSTEM Refer to clinic/hospital department * (ABNORMAL) POC GLUCOSE (12/06/2005 5:19 AM CDT) COMMENT, GLU POC Notified RN INTERFACE SYSTEM GLUCOSE POC 141(H) 65 - 109 mg/dL INTERFACE SYSTEM 12/06/2005 5:19 AM CDT us Wicho Gomez MD POINT OF CARE TESTING Final R esult INTERFACE SYSTEM Refer to clinic/hospital department * (ABNORMAL) BLOOD GAS ARTERIAL (12/06/2005 3:15 AM CDT) PH ARTERIAL 7.40 7.35 - 7.45 INTERFACE SYSTEM PCO2 ARTERIAL 41 35 - 48 mm Hg INTERFACE SYSTEM PO2 ARTERIAL 132(H) 83 - 108 mm Hg INTERFACE SYSTEM SO2 ABG 99 95 - 99 % INTERFACE SYSTEM FO2HB ABG 97 94 - 98 % INTERFACE SYSTEM HCO3 ARTERIAL 25 22 - 26 mmol/L INTERFACE SYSTEM BASE EXCESS ABG 0.0 -2.0 - 3.0 mmol/L INTERFACE SYSTEM O2 CONC ARTERIAL 40 INTERFACE SYSTEM 12/06/2005 3:15 AM CDT Romie Laughlin MD ABG ORDERABLES Final Result Performing Organization Address [facility] Phone Number INTERFACE SYSTEM Refer to clinic/hospital department * (ABNORMAL) CBC WITH DIFFERENTIAL (12/06/2005 3:15 AM CDT) NEUTROPHIL ABSOLUTE 6.28 1.90 - 7.00 K/uL INTERFACE SYSTEM LYMPHOCYTE ABSOLUTE 0.34(L) 0.70 - 4.50 K/uL INTERFACE SYSTEM MONOCYTE ABSOLUTE 0.21 0.10 - 1.30 K/uL INTERFACE SYSTEM EOSINOPHIL ABSOLUTE 0.00 0.00 - 0.70 K/uL INTERFACE SYSTEM BASOPHILS ABSOLUTE 0.00 0.00 - 0.20 K/uL INTERFACE SYSTEM NEUTROPHILS, SEG 89(H) 45 - 70 % INT ERFACE SYSTEM BANDS 2 0 - 5 % INTERFACE SYSTEM LYMPHOCYTES 4(L) 16 - 45 % INTERFAC E SYSTEM MONOCYTES 3 3 - 13 % INTERFACE SYSTEM EOSINOPHILS 0 0 - 7 % INTERFAC E SYSTEM BASOPHILS 0 0 - 2 % INTERFACE SYSTEM MYELOCYTES 1(H) <=0 % INTERFACE SYSTEM ATYPICAL LYMPHOCYTE 1 0 - 5 % INTERFACE SYSTEM PLATELET EST. Consistent w/ count Normal INTERFACE SYSTEM ANISOCYTOSIS Slight INTERFA CE SYSTEM POIKILOCYTES Slight INTERFA CE SYSTEM MICROCYTES Slight INTERFACE SYSTEM HYPOCHROMIA Slight INTERFAC E SYSTEM TOXIC GRANULATION Slight INTERFACE SYSTEM 12/06/2005 3:15 AM CDT Romie Laughlin MD HEMATOLOGY ORDERABLES Final Result Performing Organization Address [facility] Phone Number INTERFACE SYSTEM Refer to clinic/hospital department * (ABNORMAL) CBC WITH DIFFERENTIAL (12/06/2005 3:15 AM CDT) WBC 6.9 4.0 - 9.8 K/uL INTERFACE SYSTEM RBC 3.36(L) 4.50 - 5.40 M/uL INTERFACE SYSTEM HEMOGLOBIN 10.3(L) 13.6 - 16.5 g/dL INTERFACE SYSTEM HEMATOCRIT 31.6(L) 40.0 - 48.0 % INTERFACE SYSTEM MCV 94.0 82.0 - 99.0 fL INTERFACE SYSTEM MCH 30.7 27.2 - 32.6 pg INTERFACE SYSTEM MCHC 32.6 31.5 - 35.5 % INTERFACE SYSTEM RDW 16.0(H) 11.5 - 14.5 % INTERFACE SYSTEM RDW-STDEV 55.0(H) 37.1 - 48.7 fL INTERFACE SYSTEM PLATELETS 230 140 - 350 K/uL INTERFACE SYSTEM MPV 10.0 9.3 - 12.4 fL INTERFACE SYSTEM 12/06/2005 3:15 AM CDT Romie Laughlin MD HEMATOLOGY ORDERABLES Final Result Performing Organization Address [facility] Phone Number INTERFACE SYSTEM Refer to clinic/hospital department * PHOSPHORUS (12/06/2005 3:15 AM CDT) PHOSPHORUS 3.6 2.5 - 4.5 mg/dL INTERFACE SYSTEM 12/06/2005 3:15 AM CDT Romie Laughlin MD CHEMISTRY ORDERABLES Final R esult Performing Organization Address [facility] INTERFACE SYSTEM Refer to clinic/hospital department * (ABNORMAL) MAGNESIUM LEVEL (12/06/2005 3:15 AM CDT) MAGNESIUM 2.6(H) 1.5 - 2.5 mg/dL INTERFACE SYSTEM 12/06/2005 3:15 AM CDT Romie Laughlin MD CHEMISTRY ORDERABLES Final R esult Performing Organization Address [facility] Phone Number INTERFACE SYSTEM Refer to clinic/hospital department * (ABNORMAL) CALCIUM IONIZED (12/06/2005 3:15 AM CDT) CALCIUM IONIZED 3.92(L) 4.76 - 5.16 mg/dL INTERFACE SYSTEM 12/06/2005 3:15 AM CDT Romie Laughlin MD CHEMISTRY ORDERABLES Final R esult Performing Organization Address [facility] Phone Number INTERFACE SYSTEM Refer to clinic/hospital department * (ABNORMAL) BASIC METABOLIC PANEL (12/06/2005 3:15 AM CDT) GLUCOSE 145(H) 65 - 99 mg/dL INTERFACE SYSTEM CREATININE 1.0 0.5 - 1.3 mg/dL INTERFACE SYSTEM BUN 36(H) 6 - 20 mg/dL INTERFACE SYSTEM SODIUM 143 135 - 145 mmol/L INTERFACE SYSTEM POTASSIUM 4.0 3.5 - 4.9 mmol/L INTERFACE SYSTEM CHLORIDE 115(H) 96 - 108 mmol/L INTERFACE SYSTEM CO2 22 22 - 30 mmol/L INTERFACE SYSTEM CALCIUM 6.2(AA) 8.6 - 10.2 mg/dL INTERFACE SYSTEM Comment: Results called to Yecenia at 12/06/2005 4:16 AM and read back verified. Verified by repeat analysis. 12/06/2005 3:15 AM CDT us Romie Laughlin MD CHEMISTRY ORDERABLES Final R esult INTERFACE SYSTEM Refer to clinic/hospital department * (ABNORMAL) POC GLUCOSE (12/06/2005 12:19 AM CDT) COMMENT, GLU POC Notified RN INTERFACE SYSTEM GLUCOSE POC 137(H) 65 - 109 mg/dL INTERFACE SYSTEM 12/06/2005 12:1 9 AM CDT us Wciho Gomez MD POINT OF CARE TESTING Final R esult INTERFACE SYSTEM Refer to clinic/hospital department * PTT (12/05/2005 6:42 PM CDT) PTT 29.7 24.4 - 36.4 Seconds INTERFACE SYSTEM Comment: PTT Therapeutic Range: Heparin Level ? PTT (seconds) <0.10 units/mL ? <53 0.10 - 0.30 units/mL ? 53 - 67 0.30 - 0.70 units/mL* ?67 - 95* 0.70 - 1.00 units/mL ?95 - 116 *corresponds to therapeutic range for unfractionated heparin ?? 12/05/2005 6:42 PM CDT Wicho Gomez MD HEMATOLOGY ORDERABLES Final R esult Performing Organization Address [facility] Phone Number INTERFACE SYSTEM Refer to clinic/hospital department * (ABNORMAL) POC GLUCOSE (12/05/2005 6:05 PM CDT) [facility] GLUCOSE POC 133(H) 65 - 109 mg/dL INTERFACE SYSTEM 12/05/2005 6:05 PM CDT Wicho Gomez MD POINT OF CARE TESTING Final R [facility] Performing Organization Address [facility] Phone Number INTERFACE SYSTEM Refer to clinic/hospital department * (ABNORMAL) BLOOD GAS ARTERIAL (12/05/2005 4:15 PM CDT) [facility] PH ARTERIAL 7.39 7.35 - 7.45 INTERFACE SYSTEM PCO2 ARTERIAL 43 35 - 48 mm Hg INTERFACE SYSTEM PO2 ARTERIAL 109(H) 83 - 108 mm Hg INTERFACE SYSTEM SO2 ABG 99 95 - 99 % INTERFACE SYSTEM FO2HB ABG 98 94 - 98 % INTERFACE SYSTEM HCO3 ARTERIAL 26 22 - 26 mmol/L INTERFACE SYSTEM BASE EXCESS ABG 0.5 -2.0 - 3.0 mmol/L INTERFACE SYSTEM O2 CONC ARTERIAL 40% INTERFACE SYSTEM 12/05/2005 4:15 PM CDT Romie Laughlin MD ABG ORDERABLES Final Result Performing Organization Address [facility] Phone Number INTERFACE SYSTEM Refer to clinic/hospital department * (ABNORMAL) CBC WITH DIFFERENTIAL (12/05/2005 4:00 PM CDT) [facility] NEUTROPHIL ABSOLUTE 7.25(H) 1.90 - 7.00 K/uL INTERFACE SYSTEM LYMPHOCYTE ABSOLUTE 0.23(L) 0.70 - 4.50 K/uL INTERFACE SYSTEM MONOCYTE ABSOLUTE 0.31 0.10 - 1.30 K/uL INTERFACE SYSTEM EOSINOPHIL ABSOLUTE 0.00 0.00 - 0.70 K/uL INTERFACE SYSTEM BASOPHILS ABSOLUTE 0.00 0.00 - 0.20 K/uL INTERFACE SYSTEM NEUTROPHILS, SEG 89(H) 45 - 70 % INT ERFACE SYSTEM BANDS 4 0 - 5 % INTERFACE SYSTEM LYMPHOCYTES 1(L) 16 - 45 % INTERFAC E SYSTEM MONOCYTES 4 3 - 13 % INTERFACE SYSTEM EOSINOPHILS 0 0 - 7 % INTERFAC E SYSTEM BASOPHILS 0 0 - 2 % INTERFACE SYSTEM ATYPICAL LYMPHOCYTE 2 0 - 5 % INTERFACE SYSTEM PLATELET EST. Consistent w/ count Normal INTERFACE SYSTEM ANISOCYTOSIS Slight INTERFA CE SYSTEM POIKILOCYTES Slight INTERFA CE SYSTEM MICROCYTES Slight INTERFACE SYSTEM POLYCHROMASIA Slight INTERF CINDY SYSTEM HYPOCHROMIA Slight INTERFAC E SYSTEM OVALOCYTES Slight INTERFACE SYSTEM 12/05/2005 4:00 PM CDT Romie Laughlin MD HEMATOLOGY ORDERABLES Final Result Performing Organization Address [facility] de Phone Number INTERFACE SYSTEM Refer to clinic/hospital department * (ABNORMAL) CBC WITH DIFFERENTIAL (12/05/2005 4:00 PM CDT) Pathologist [facility] WBC 7.8 4.0 - 9.8 K/uL INTERFACE SYSTEM RBC 3.58(L) 4.50 - 5.40 M/uL INTERFACE SYSTEM HEMOGLOBIN 10.8(L) 13.6 - 16.5 g/dL INTERFACE SYSTEM HEMATOCRIT 33.7(L) 40.0 - 48.0 % INTERFACE SYSTEM MCV 94.1 82.0 - 99.0 fL INTERFACE SYSTEM MCH 30.2 27.2 - 32.6 pg INTERFACE SYSTEM MCHC 32.0 31.5 - 35.5 % INTERFACE SYSTEM RDW 16.2(H) 11.5 - 14.5 % INTERFACE SYSTEM RDW-STDEV 55.9(H) 37.1 - 48.7 fL INTERFACE SYSTEM PLATELETS 253 140 - 350 K/uL INTERFACE SYSTEM MPV 10.3 9.3 - 12.4 fL INTERFACE SYSTEM 12/05/2005 4:00 PM CDT Romie Laughlin MD HEMATOLOGY ORDERABLES Final Result Performing Organization Address City/[facility] de Phone Number INTERFACE SYSTEM Refer to clinic/hospital department * (ABNORMAL) PREALBUMIN (12/05/2005 4:00 PM CDT) PREALBUMIN 7(L) 20 - 40 mg/dL INTERFACE SYSTEM 12/05/2005 4:00 PM CDT Romie Laughlin MD CHEMISTRY ORDERABLES Final R esult Performing Organization Address [facility] Phone Number INTERFACE SYSTEM Refer to clinic/hospital department * (ABNORMAL) TRANSFERRIN (12/05/2005 4:00 PM CDT) TRANSFERRIN 79(L) 200 - 360 mg/dL INTERFACE SYSTEM 12/05/2005 4:00 PM CDT Romie Laughlin MD CHEMISTRY ORDERABLES Final R esult Performing Organization Address [facility] Number INTERFACE SYSTEM Refer to clinic/hospital department * PHOSPHORUS (12/05/2005 4:00 PM CDT) PHOSPHORUS 4.1 2.5 - 4.5 mg/dL INTERFACE SYSTEM 12/05/2005 4:00 PM CDT Romie Laughlin MD CHEMISTRY ORDERABLES Final R esult Performing Organization Address [facility] Number INTERFACE SYSTEM Refer to clinic/hospital department * MAGNESIUM LEVEL (12/05/2005 4:00 PM CDT) MAGNESIUM 2.4 1.5 - 2.5 mg/dL INTERFACE SYSTEM 12/05/2005 4:00 PM CDT Romie Laughlin MD CHEMISTRY ORDERABLES Final R esult Performing Organization Address [facility] Phone Number INTERFACE SYSTEM Refer to clinic/hospital department * (ABNORMAL) CALCIUM IONIZED (12/05/2005 4:00 PM CDT) CALCIUM IONIZED 4.08(L) 4.76 - 5.16 mg/dL INTERFACE SYSTEM 12/05/2005 4:00 PM CDT Romie Laughlin MD CHEMISTRY ORDERABLES Final R esult Performing Organization Address City/[facility] Co de Phone Number INTERFACE SYSTEM Refer to clinic/hospital department * (ABNORMAL) COMPREHENSIVE METABOLIC PANEL (12/05/2005 4:00 PM CDT) GLUCOSE 136(H) 65 - 99 mg/dL INTERFACE SYSTEM CREATININE 1.0 0.5 - 1.3 mg/dL INTERFACE SYSTEM CALCIUM 6.8(L) 8.6 - 10.2 mg/dL INTERFACE SYSTEM ALKALINE PHOSPHATASE 43 40 - 129 U/L INTERFACE SYSTEM AST 13 12 - 38 U/L INTERFACE SYSTEM ALT 12 0 - 41 U/L INTERFACE SYSTEM TOTAL PROTEIN 4.5(L) 6.3 - 8.6 g/dL INTERFACE SYSTEM ALBUMIN 1.6(L) 3.4 - 4.8 g/dL INTERFACE SYSTEM BILIRUBIN TOTAL 1.2(H) 0.2 - 1.0 mg/dL INTERFACE SYSTEM BUN 37(H) 6 - 20 mg/dL INTERFACE SYSTEM SODIUM 149(H) 135 - 145 mmol/L INTERFACE SYSTEM POTASSIUM 3.9 3.5 - 4.9 mmol/L INTERFACE SYSTEM CHLORIDE 117(H) 96 - 108 mmol/L INTERFACE SYSTEM CO2 25 22 - 30 mmol/L INTERFACE SYSTEM 12/05/2005 4:00 PM CDT Romie Laughlin MD CHEMISTRY ORDERABLES Final R esult Performing Organization Address [facility] de Phone Number INTERFACE SYSTEM Refer to clinic/hospital department * (ABNORMAL) PT AND APTT (12/05/2005 11:31 AM CDT) PROTIME 17.4(H) 12.7 - 15.1 Seconds INTERFACE SYSTEM INR 1.3(H) 0.9 - 1.1 INTERFACE SYSTEM Comment: INR Therapeutic Range: Adult: 2.0 - 3.0 for pulmonary embolism or prophylaxis against venous thrombosis or systemic embolization. 2.0 - 3.0 for patients with tissue heart valves. ?? 2.5 - 3.5 for patients with mechanical heart valves or post MD. Pediatric ??(12 years and under): 1.5 - 3.0 Although the target range in children is not well established , INR values of 1.5 - 3.0 are recommended for most patients. Higher values have been used in children with prosthetic cardiac valves and hereditary clotting disorders. (<3 days) therapeutic ranges have not been established. PTT 30.3 24.4 - 36.4 Seconds INTERFACE SYSTEM Comment: PTT Therapeutic Range: Heparin Level ? PTT (seconds) <0.10 units/mL ? <53 0.10 - 0.30 units/mL ? 53 - 67 0.30 - 0.70 units/mL* ?67 - 95* 0.70 - 1.00 units/mL ?95 - 116 *corresponds to therapeutic range for unfractionated heparin ?? 12/05/2005 11:3 1 AM CDT Romie Laughlin MD HEMATOLOGY ORDERABLES Final Result Performing Organization Address [facility] Phone Number INTERFACE SYSTEM Refer to clinic/hospital department * (ABNORMAL) POC GLUCOSE (12/05/2005 11:30 AM CDT) GLUCOSE POC 130(H) 65 - 109 mg/dL INTERFACE SYSTEM 12/05/2005 11:3 0 AM CDT us Wicho Gomez MD POINT OF CARE TESTING Final R esult Performing Organization Address [facility] de Phone Number INTERFACE SYSTEM Refer to clinic/hospital department * POC GLUCOSE (12/05/2005 6:00 AM CDT) GLUCOSE POC 91 65 - 109 mg/dL INTERFACE SYSTEM 12/05/2005 6:00 AM CDT Wicho Gomez MD POINT OF CARE TESTING Final R esult Performing Organization Address [facility]/ZIP Co de Phone Number INTERFACE SYSTEM Refer to clinic/hospital department * (ABNORMAL) CBC WITH DIFFERENTIAL (12/05/2005 4:00 AM CDT) NEUTROPHIL ABSOLUTE 6.24 1.90 - 7.00 K/uL INTERFACE SYSTEM LYMPHOCYTE ABSOLUTE 0.20(L) 0.70 - 4.50 K/uL INTERFACE SYSTEM MONOCYTE ABSOLUTE 0.07(L) 0.10 - 1.30 K/uL INTERFACE SYSTEM EOSINOPHIL ABSOLUTE 0.00 0.00 - 0.70 K/uL INTERFACE SYSTEM BASOPHILS ABSOLUTE 0.00 0.00 - 0.20 K/uL INTERFACE SYSTEM NEUTROPHILS, SEG 96(H) 45 - 70 % INTERFACE SYSTEM LYMPHOCYTES 2(L) 16 - 45 % INTERFAC E SYSTEM MONOCYTES 1(L) 3 - 13 % INTERFACE SYSTEM EOSINOPHILS 0 0 - 7 % INTERFAC E SYSTEM BASOPHILS 0 0 - 2 % INTERFACE SYSTEM ATYPICAL LYMPHOCYTE 1 0 - 5 % INTERFACE SYSTEM PLATELET EST. Consistent w/ count Normal INTERFACE SYSTEM HYPOCHROMIA Slight INTERFAC E SYSTEM 12/05/2005 4:00 AM CDT Romie Laughlin MD HEMATOLOGY ORDERABLES Final Result Performing Organization Address [facility] Phone Number INTERFACE SYSTEM Refer to clinic/hospital department * (ABNORMAL) CBC WITH DIFFERENTIAL (12/05/2005 4:00 AM CDT) WBC 6.5 4.0 - 9.8 K/uL INTERFACE SYSTEM RBC 2.81(L) 4.50 - 5.40 M/uL INTERFACE SYSTEM HEMOGLOBIN 8.8(L) 13.6 - 16.5 g/dL INTERFACE SYSTEM HEMATOCRIT 26.8(L) 40.0 - 48.0 % INTERFACE SYSTEM MCV 95.4 82.0 - 99.0 fL INTERFACE SYSTEM MCH 31.3 27.2 - 32.6 pg INTERFACE SYSTEM MCHC 32.8 31.5 - 35.5 % INTERFACE SYSTEM RDW 15.1(H) 11.5 - 14.5 % INTERFACE SYSTEM RDW-STDEV 52.7(H) 37.1 - 48.7 fL INTERFACE SYSTEM PLATELETS 210 140 - 350 K/uL INTERFACE SYSTEM MPV 9.8 9.3 - 12.4 fL INTERFACE SYSTEM 12/05/2005 4:00 AM CDT Romie Laughlin MD HEMATOLOGY ORDERABLES Final Result Performing Organization Address [facility] Phone Number INTERFACE SYSTEM Refer to clinic/hospital department * PHOSPHORUS (12/05/2005 4:00 AM CDT) PHOSPHORUS 4.5 2.5 - 4.5 mg/dL INTERFACE SYSTEM 12/05/2005 4:00 AM CDT Romie Laughlin MD CHEMISTRY ORDERABLES Final R esult Performing Organization Address [facility] Phone Number INTERFACE SYSTEM Refer to clinic/hospital department * MAGNESIUM LEVEL (12/05/2005 4:00 AM CDT) MAGNESIUM 2.4 1.5 - 2.5 mg/dL INTERFACE SYSTEM 12/05/2005 4:00 AM CDT Romie Laughlin MD CHEMISTRY ORDERABLES Final R esult Performing Organization Address [facility] Phone Number INTERFACE SYSTEM Refer to clinic/hospital department * (ABNORMAL) CALCIUM IONIZED (12/05/2005 4:00 AM CDT) CALCIUM IONIZED 3.88(L) 4.76 - 5.16 mg/dL INTERFACE SYSTEM 12/05/2005 4:00 AM CDT Romie Laughlin MD CHEMISTRY ORDERABLES Final R esult Performing Organization Address [facility] Phone Number INTERFACE SYSTEM Refer to clinic/hospital department * (ABNORMAL) BASIC METABOLIC PANEL (12/05/2005 4:00 AM CDT) GLUCOSE 149(H) 65 - 99 mg/dL INTERFACE SYSTEM CREATININE 1.1 0.5 - 1.3 mg/dL INTERFACE SYSTEM BUN 37(H) 6 - 20 mg/dL INTERFACE SYSTEM SODIUM 150(H) 135 - 145 mmol/L INTERFACE SYSTEM POTASSIUM 3.7 3.5 - 4.9 mmol/L INTERFACE SYSTEM CHLORIDE 118(H) 96 - 108 mmol/L INTERFACE SYSTEM CO2 24 22 - 30 mmol/L INTERFACE SYSTEM CALCIUM 6.6(L) 8.6 - 10.2 mg/dL INTERFACE SYSTEM 12/05/2005 4:00 AM CDT us Romie Laughlin MD CHEMISTRY ORDERABLES Final R esult Performing Organization Address [facility] Phone Number INTERFACE SYSTEM Refer to clinic/hospital department * (ABNORMAL) BLOOD GAS ARTERIAL (12/05/2005 3:40 AM CDT) PH ARTERIAL 7.43 7.35 - 7.45 INTERFACE SYSTEM PCO2 ARTERIAL 41 35 - 48 mm Hg INTERFACE SYSTEM PO2 ARTERIAL 133(H) 83 - 108 mm Hg INTERFACE SYSTEM SO2 ABG 99 95 - 99 % INTERFACE SYSTEM FO2HB ABG 97 94 - 98 % INTERFACE SYSTEM HCO3 ARTERIAL 27(H) 22 - 26 mmol/L INTERFACE SYSTEM BASE EXCESS ABG 2.0 -2.0 - 3.0 mmol/L INTERFACE SYSTEM O2 CONC ARTERIAL 40 INTERFACE SYSTEM 12/05/2005 3:40 AM CDT us Harshad Heller MD ABG ORDERABLES Final Result Performing Organization Address [facility] Phone Number INTERFACE SYSTEM Refer to clinic/hospital department * (ABNORMAL) POC GLUCOSE (12/04/2005 11:57 PM CDT) COMMENT, GLU POC Notified RN INTERFACE SYSTEM GLUCOSE POC 130(H) 65 - 109 mg/dL INTERFACE SYSTEM 12/04/2005 11:5 7 PM CDT us Wicho Gomez MD POINT OF CARE TESTING Final R esult Performing Organization Address [facility] Phone Number INTERFACE SYSTEM Refer to clinic/hospital department * BLOOD GAS ARTERIAL (12/04/2005 11:56 PM CDT) PH ARTERIAL 7.36 7.35 - 7.45 INTERFACE SYSTEM PCO2 ARTERIAL 47 35 - 48 mm Hg INTERFACE SYSTEM PO2 ARTERIAL 107 83 - 108 mm Hg INTERFACE SYSTEM SO2 ABG 98 95 - 99 % INTERFACE SYSTEM FO2HB ABG 97 94 - 98 % INTERFACE SYSTEM HCO3 ARTERIAL 26 22 - 26 mmol/L INTERFACE SYSTEM BASE EXCESS ABG 0.2 -2.0 - 3.0 mmol/L INTERFACE SYSTEM O2 CONC ARTERIAL 40 INTERFACE SYSTEM 12/04/2005 11:5 6 PM CDT us Romie Laughlin MD ABG ORDERABLES Final Result Performing Organization Address [facility] de Phone Number INTERFACE SYSTEM Refer to clinic/hospital department * (ABNORMAL) POC GLUCOSE (12/04/2005 5:41 PM CDT) GLUCOSE POC 165(H) 65 - 109 mg/dL INTERFACE SYSTEM 12/04/2005 5:41 PM CDT Wicho Gomez MD POINT OF CARE TESTING Final R esult Performing Organization Address [facility] Phone Number INTERFACE SYSTEM Refer to clinic/hospital department * (ABNORMAL) PTT (12/04/2005 5:40 PM CDT) PTT >150.0(AA ) 24.4 - 36.4 Seconds INTERFACE SYSTEM Comment: PTT Therapeutic Range: Heparin Level ? PTT (seconds) <0.10 units/mL ? <53 0.10 - 0.30 units/mL ? 53 - 67 0.30 - 0.70 units/mL* ?67 - 95* 0.70 - 1.00 units/mL ?95 - 116 *corresponds to therapeutic range for unfractionated heparin ?? Results called to sea at 12/04/2005 6:44 PM and read back verified. 12/04/2005 5:40 PM CDT Romie Laughlin MD HEMATOLOGY ORDERABLES Final Result Performing Organization Address [facility] Phone Number INTERFACE SYSTEM Refer to clinic/hospital department * (ABNORMAL) POC GLUCOSE (12/04/2005 4:06 PM CDT) GLUCOSE POC 182(H) 65 - 109 mg/dL INTERFACE SYSTEM 12/04/2005 4:06 PM CDT us Wicho Gomez MD POINT OF CARE TESTING Final R esult Performing Organization Address [facility] Phone Number INTERFACE SYSTEM Refer to clinic/hospital department * (ABNORMAL) BLOOD GAS ARTERIAL (12/04/2005 2:51 PM CDT) PH ARTERIAL 7.36 7.35 - 7.45 INTERFACE SYSTEM PCO2 ARTERIAL 48 35 - 48 mm Hg INTERFACE SYSTEM PO2 ARTERIAL 111(H) 83 - 108 mm Hg INTERFACE SYSTEM SO2 ABG 99 95 - 99 % INTERFACE SYSTEM FO2HB ABG 97 94 - 98 % INTERFACE SYSTEM HCO3 ARTERIAL 26 22 - 26 mmol/L INTERFACE SYSTEM BASE EXCESS ABG 0.2 -2.0 - 3.0 mmol/L INTERFACE SYSTEM O2 CONC ARTERIAL 40% INTERFACE SYSTEM 12/04/2005 2:51 PM CDT us Wicho Gomez MD ABG ORDERABLES Final Result Performing Organization Address [facility] Phone Number INTERFACE SYSTEM Refer to clinic/hospital department * (ABNORMAL) POC GLUCOSE (12/04/2005 12:04 PM CDT) GLUCOSE POC 156(H) 65 - 109 mg/dL INTERFACE SYSTEM 12/04/2005 12:0 4 PM CDT us Wicho Gomez MD POINT OF CARE TESTING Final R esult Performing Organization Address [facility] Phone Number INTERFACE SYSTEM Refer to clinic/hospital department * (ABNORMAL) PTT (12/04/2005 9:50 AM CDT) PTT 42.3(H) 24.4 - 36.4 Seconds INTERFACE SYSTEM Comment: PTT Therapeutic Range: Heparin Level ? PTT (seconds) <0.10 units/mL ? <53 0.10 - 0.30 units/mL ? 53 - 67 0.30 - 0.70 units/mL* ?67 - 95* 0.70 - 1.00 units/mL ?95 - 116 *corresponds to therapeutic range for unfractionated heparin ?? 12/04/2005 9:50 AM CDT Romie Laughlin MD HEMATOLOGY ORDERABLES Final Result Performing Organization Address [facility] Phone Number INTERFACE SYSTEM Refer to clinic/hospital department * POC GLUCOSE (12/04/2005 9:26 AM CDT) GLUCOSE POC 92 65 - 109 mg/dL INTERFACE SYSTEM 12/04/2005 9:26 AM CDT Wicho Gomez MD POINT OF CARE TESTING Final R esult Performing Organization Address [facility] Phone Number INTERFACE SYSTEM Refer to clinic/hospital department * (ABNORMAL) POC GLUCOSE (12/04/2005 6:00 AM CDT) GLUCOSE POC 148(H) 65 - 109 mg/dL INTERFACE SYSTEM 12/04/2005 6:00 AM CDT Wicho Gomez MD POINT OF CARE TESTING Final R esult Performing Organization Address [facility] Phone Number INTERFACE SYSTEM Refer to clinic/hospital department * BLOOD GAS ARTERIAL (12/04/2005 3:10 AM CDT) PH ARTERIAL 7.37 7.35 - 7.45 INTERFACE SYSTEM PCO2 ARTERIAL 47 35 - 48 mm Hg INTERFACE SYSTEM PO2 ARTERIAL 103 83 - 108 mm Hg INTERFACE SYSTEM SO2 ABG 98 95 - 99 % INTERFACE SYSTEM FO2HB ABG 97 94 - 98 % INTERFACE SYSTEM HCO3 ARTERIAL 26 22 - 26 mmol/L INTERFACE SYSTEM BASE EXCESS ABG 0.8 -2.0 - 3.0 mmol/L INTERFACE SYSTEM O2 CONC ARTERIAL 40% INTERFACE SYSTEM 12/04/2005 3:10 AM CDT Romie Laughlin MD ABG ORDERABLES Final Result Performing Organization Address [facility] Phone Number INTERFACE SYSTEM Refer to clinic/hospital department * (ABNORMAL) CBC WITH DIFFERENTIAL (12/04/2005 3:10 AM CDT) NEUTROPHIL ABSOLUTE 8.10(H) 1.90 - 7.00 K/uL INTERFACE SYSTEM LYMPHOCYTE ABSOLUTE 0.18(L) 0.70 - 4.50 K/uL INTERFACE SYSTEM MONOCYTE ABSOLUTE 0.44 0.10 - 1.30 K/uL INTERFACE SYSTEM EOSINOPHIL ABSOLUTE 0.09 0.00 - 0.70 K/uL INTERFACE SYSTEM BASOPHILS ABSOLUTE 0.00 0.00 - 0.20 K/uL INTERFACE SYSTEM NEUTROPHILS, SEG 88(H) 45 - 70 % INT ERFACE SYSTEM BANDS 4 0 - 5 % INTERFACE SYSTEM LYMPHOCYTES 2(L) 16 - 45 % INTERFAC E SYSTEM MONOCYTES 5 3 - 13 % INTERFACE SYSTEM EOSINOPHILS 1 0 - 7 % INTERFAC E SYSTEM BASOPHILS 0 0 - 2 % INTERFACE SYSTEM PLATELET EST. Consistent w/ count Normal INTERFACE SYSTEM ANISOCYTOSIS Slight INTERFA CE SYSTEM POIKILOCYTES Slight INTERFA CE SYSTEM 12/04/2005 3:10 AM CDT Romie Laughlin MD HEMATOLOGY ORDERABLES Final Result Performing Organization Address [facility] Phone Number INTERFACE SYSTEM Refer to clinic/hospital department * (ABNORMAL) CBC WITH DIFFERENTIAL (12/04/2005 3:10 AM CDT) WBC 8.8 4.0 - 9.8 K/uL INTERFACE SYSTEM RBC 3.27(L) 4.50 - 5.40 M/uL INTERFACE SYSTEM HEMOGLOBIN 10.0(L) 13.6 - 16.5 g/dL INTERFACE SYSTEM HEMATOCRIT 31.2(L) 40.0 - 48.0 % INTERFACE SYSTEM MCV 95.4 82.0 - 99.0 fL INTERFACE SYSTEM MCH 30.6 27.2 - 32.6 pg INTERFACE SYSTEM MCHC 32.1 31.5 - 35.5 % INTERFACE SYSTEM RDW 15.0(H) 11.5 - 14.5 % INTERFACE SYSTEM RDW-STDEV 52.5(H) 37.1 - 48.7 fL INTERFACE SYSTEM PLATELETS 225 140 - 350 K/uL INTERFACE SYSTEM MPV 10.2 9.3 - 12.4 fL INTERFACE SYSTEM 12/04/2005 3:10 AM CDT us Romie Laughlin MD HEMATOLOGY ORDERABLES Final Result INTERFACE SYSTEM Refer to clinic/hospital department * (ABNORMAL) PT AND APTT (12/04/2005 3:10 AM CDT) PTT >150.0(AA ) 24.4 - 36.4 Seconds INTERFACE SYSTEM Comment: PTT Therapeutic Range: Heparin Level ? PTT (seconds) <0.10 units/mL ? <53 0.10 - 0.30 units/mL ? 53 - 67 0.30 - 0.70 units/mL* ?67 - 95* 0.70 - 1.00 units/mL ?95 - 116 *corresponds to therapeutic range for unfractionated heparin ?? Results called to princess at 12/04/2005 3:56 AM and read back verified. PROTIME 17.7(H) 12.7 - 15.1 Seconds INTERFACE SYSTEM INR 1.4(H) 0.9 - 1.1 INTERFACE SYSTEM Comment: INR Therapeutic Range: Adult: 2.0 - 3.0 for pulmonary embolism or prophylaxis against venous thrombosis or systemic embolization. 2.0 - 3.0 for patients with tissue heart valves. ?? 2.5 - 3.5 for patients with mechanical heart valves or post MD. Pediatric ??(12 years and under): 1.5 - 3.0 Although the target range in children is not well established , INR values of 1.5 - 3.0 are recommended for most patients. Higher values have been used in children with prosthetic cardiac valves and hereditary clotting disorders. (<3 days) therapeutic ranges have not been established. 12/04/2005 3:10 AM CDT Romie Laughlin MD HEMATOLOGY ORDERABLES Final Result Performing Organization Address [facility] INTERFACE SYSTEM Refer to clinic/hospital department * (ABNORMAL) PHOSPHORUS (12/04/2005 3:10 AM CDT) PHOSPHORUS 5.1(H) 2.5 - 4.5 mg/dL INTERFACE SYSTEM 12/04/2005 3:10 AM CDT Romie Laughlin MD CHEMISTRY ORDERABLES Final R esult Performing Organization Address [facility] INTERFACE SYSTEM Refer to clinic/hospital department * MAGNESIUM LEVEL (12/04/2005 3:10 AM CDT) MAGNESIUM 2.3 1.5 - 2.5 mg/dL INTERFACE SYSTEM 12/04/2005 3:10 AM CDT Romie Laughlin MD CHEMISTRY ORDERABLES Final R esult Performing Organization Address [facility] INTERFACE SYSTEM Refer to clinic/hospital department * (ABNORMAL) CALCIUM IONIZED (12/04/2005 3:10 AM CDT) CALCIUM IONIZED 4.20(L) 4.76 - 5.16 mg/dL INTERFACE SYSTEM 12/04/2005 3:10 AM CDT Romie Laughlin MD CHEMISTRY ORDERABLES Final R esult Performing Organization Address [facility] Phone Number INTERFACE SYSTEM Refer to clinic/hospital department * (ABNORMAL) BASIC METABOLIC PANEL (12/04/2005 3:10 AM CDT) GLUCOSE 144(H) 65 - 99 mg/dL INTERFACE SYSTEM CREATININE 1.0 0.5 - 1.3 mg/dL INTERFACE SYSTEM CALCIUM 6.9(L) 8.6 - 10.2 mg/dL INTERFACE SYSTEM BUN 32(H) 6 - 20 mg/dL INTERFACE SYSTEM SODIUM 147(H) 135 - 145 mmol/L INTERFACE SYSTEM POTASSIUM 4.1 3.5 - 4.9 mmol/L INTERFACE SYSTEM CHLORIDE 115(H) 96 - 108 mmol/L INTERFACE SYSTEM CO2 25 22 - 30 mmol/L INTERFACE SYSTEM 12/04/2005 3:10 AM CDT us Romie Laughlin MD CHEMISTRY ORDERABLES Final R esult Performing Organization Address [facility] de Phone Number INTERFACE SYSTEM Refer to clinic/hospital department * (ABNORMAL) POC GLUCOSE (12/04/2005 12:06 AM CDT) GLUCOSE POC 111(H) 65 - 109 mg/dL INTERFACE SYSTEM 12/04/2005 12:0 6 AM CDT us Wicho Gomez MD POINT OF CARE TESTING [facility] Performing Organization Address [facility] de Phone Number INTERFACE SYSTEM Refer to clinic/hospital department * (ABNORMAL) PT AND APTT (12/03/2005 10:00 PM CDT) PROTIME 16.8(H) 12.7 - 15.1 Seconds INTERFACE SYSTEM INR 1.3(H) 0.9 - 1.1 INTERFACE SYSTEM Comment: INR Therapeutic Range: Adult: 2.0 - 3.0 for pulmonary embolism or prophylaxis against venous thrombosis or systemic embolization. 2.0 - 3.0 for patients with tissue heart valves. ?? 2.5 - 3.5 for patients with mechanical heart valves or post MD. Pediatric ??(12 years and under): 1.5 - 3.0 Although the target range in children is not well established , INR values of 1.5 - 3.0 are recommended for most patients. Higher values have been used in children with prosthetic cardiac valves and hereditary clotting disorders. (<3 days) therapeutic ranges have not been established. PTT 64.6(H) 24.4 - 36.4 Seconds INTERFACE SYSTEM Comment: PTT Therapeutic Range: Heparin Level ? PTT (seconds) <0.10 units/mL ? <53 0.10 - 0.30 units/mL ? 53 - 67 0.30 - 0.70 units/mL* ?67 - 95* 0.70 - 1.00 units/mL ?95 - 116 *corresponds to therapeutic range for unfractionated heparin ?? 12/03/2005 10:0 0 PM CDT us Romie Laughlin MD HEMATOLOGY ORDERABLES Final Result INTERFACE SYSTEM Refer to clinic/hospital department * (ABNORMAL) POC GLUCOSE (12/03/2005 4:58 PM CDT) COMMENT, GLU POC Notified RN INTERFACE SYSTEM GLUCOSE POC 117(H) 65 - 109 mg/dL INTERFACE SYSTEM 12/03/2005 4:58 PM CDT us Wicho Gomez MD POINT OF CARE TESTING Final R esult INTERFACE SYSTEM Refer to clinic/hospital department * (ABNORMAL) CBC WITH DIFFERENTIAL (12/03/2005 3:36 PM CDT) NEUTROPHIL ABSOLUTE 10.55(H) 1.90 - 7.00 K/uL INTERFACE SYSTEM LYMPHOCYTE ABSOLUTE 0.22(L) 0.70 - 4.50 K/uL INTERFACE SYSTEM MONOCYTE ABSOLUTE 0.22 0.10 - 1.30 K/uL INTERFACE SYSTEM EOSINOPHIL ABSOLUTE 0.00 0.00 - 0.70 K/uL INTERFACE SYSTEM BASOPHILS ABSOLUTE 0.11 0.00 - 0.20 K/uL INTERFACE SYSTEM NEUTROPHILS, SEG 91(H) 45 - 70 % INT ERFACE SYSTEM BANDS 4 0 - 5 % INTERFACE SYSTEM LYMPHOCYTES 2(L) 16 - 45 % INTERFAC E SYSTEM MONOCYTES 2(L) 3 - 13 % INTERFACE SYSTEM EOSINOPHILS 0 0 - 7 % INTERFAC E SYSTEM BASOPHILS 1 0 - 2 % INTERFACE SYSTEM PLATELET EST. Consistent w/ count Normal INTERFACE SYSTEM ANISOCYTOSIS Slight INTERFA CE SYSTEM 12/03/2005 3:36 PM CDT Romie Laughlin MD HEMATOLOGY ORDERABLES Final Result Performing Organization Address [place]/[facility] de Phone Number INTERFACE SYSTEM Refer to clinic/hospital department * (ABNORMAL) CBC WITH DIFFERENTIAL (12/03/2005 3:36 PM CDT) WBC 11.1(H) 4.0 - 9.8 K/uL INTERFACE SYSTEM RBC 3.38(L) 4.50 - 5.40 M/uL INTERFACE SYSTEM HEMOGLOBIN 10.5(L) 13.6 - 16.5 g/dL INTERFACE SYSTEM HEMATOCRIT 32.2(L) 40.0 - 48.0 % INTERFACE SYSTEM MCV 95.3 82.0 - 99.0 fL INTERFACE SYSTEM MCH 31.1 27.2 - 32.6 pg INTERFACE SYSTEM MCHC 32.6 31.5 - 35.5 % INTERFACE SYSTEM RDW 15.3(H) 11.5 - 14.5 % INTERFACE SYSTEM RDW-STDEV 53.3(H) 37.1 - 48.7 fL INTERFACE SYSTEM PLATELETS 230 140 - 350 K/uL INTERFACE SYSTEM MPV 10.0 9.3 - 12.4 fL INTERFACE SYSTEM 12/03/2005 3:36 PM CDT Romie Laughlin MD HEMATOLOGY ORDERABLES Final Result Performing Organization Address City/[facility] Phone Number INTERFACE SYSTEM Refer to clinic/hospital department * PHOSPHORUS (12/03/2005 3:36 PM CDT) PHOSPHORUS 4.3 2.5 - 4.5 mg/dL INTERFACE SYSTEM 12/03/2005 3:36 PM CDT Romie Laughlin MD CHEMISTRY ORDERABLES Final R esult Performing Organization Address City/[facility] de Phone Number INTERFACE SYSTEM Refer to clinic/hospital department * MAGNESIUM LEVEL (12/03/2005 3:36 PM CDT) MAGNESIUM 2.3 1.5 - 2.5 mg/dL INTERFACE SYSTEM 12/03/2005 3:36 PM CDT Romie Laughlin MD CHEMISTRY ORDERABLES Final R esult Performing Organization Address City/[facility] de Phone Number INTERFACE SYSTEM Refer to clinic/hospital department * (ABNORMAL) CALCIUM IONIZED (12/03/2005 3:36 PM CDT) CALCIUM IONIZED 4.08(L) 4.76 - 5.16 mg/dL INTERFACE SYSTEM 12/03/2005 3:36 PM CDT Romie Laughlin MD CHEMISTRY ORDERABLES Final R esult Performing Organization Address [facility] Phone Number INTERFACE SYSTEM Refer to clinic/hospital department * (ABNORMAL) BASIC METABOLIC PANEL (12/03/2005 3:36 PM CDT) GLUCOSE 115(H) 65 - 99 mg/dL INTERFACE SYSTEM CREATININE 1.0 0.5 - 1.3 mg/dL INTERFACE SYSTEM CALCIUM 7.4(L) 8.6 - 10.2 mg/dL INTERFACE SYSTEM BUN 26(H) 6 - 20 mg/dL INTERFACE SYSTEM SODIUM 146(H) 135 - 145 mmol/L INTERFACE SYSTEM POTASSIUM 4.0 3.5 - 4.9 mmol/L INTERFACE SYSTEM CHLORIDE 113(H) 96 - 108 mmol/L INTERFACE SYSTEM CO2 27 22 - 30 mmol/L INTERFACE SYSTEM 12/03/2005 3:36 PM CDT Romie Laughlin MD CHEMISTRY ORDERABLES Final R esult Performing Organization Address City/[facility] de Phone Number INTERFACE SYSTEM Refer to clinic/hospital department * (ABNORMAL) POC GLUCOSE (12/03/2005 11:14 AM CDT) COMMENT, GLU POC Notified RN INTERFACE SYSTEM GLUCOSE POC 116(H) 65 - 109 mg/dL INTERFACE SYSTEM 12/03/2005 11:1 4 AM CDT Wicho Gomez MD POINT OF CARE TESTING Final R [facility] Performing Organization Address [facility] Phone Number INTERFACE SYSTEM Refer to clinic/hospital department * (ABNORMAL) PTT (12/03/2005 4:15 AM CDT) PTT 40.6(H) 24.4 - 36.4 Seconds INTERFACE SYSTEM Comment: PTT Therapeutic Range: Heparin Level ? PTT (seconds) <0.10 units/mL ? <53 0.10 - 0.30 units/mL ? 53 - 67 0.30 - 0.70 units/mL* ?67 - 95* 0.70 - 1.00 units/mL ?95 - 116 *corresponds to therapeutic range for unfractionated heparin ?? 12/03/2005 4:15 AM CDT Wicho Gomez MD HEMATOLOGY ORDERABLES Final [facility] Performing Organization Address [facility] Phone Number INTERFACE SYSTEM Refer to clinic/hospital department * (ABNORMAL) BLOOD GAS ARTERIAL (12/03/2005 4:15 AM CDT) PH ARTERIAL 7.38 7.35 - 7.45 INTERFACE SYSTEM PCO2 ARTERIAL 48 35 - 48 mm Hg INTERFACE SYSTEM PO2 ARTERIAL 104 83 - 108 mm Hg INTERFACE SYSTEM SO2 ABG 98 95 - 99 % INTERFACE SYSTEM FO2HB ABG 97 94 - 98 % INTERFACE SYSTEM HCO3 ARTERIAL 28(H) 22 - 26 mmol/L INTERFACE SYSTEM BASE EXCESS ABG 1.9 -2.0 - 3.0 mmol/L INTERFACE SYSTEM O2 CONC ARTERIAL 40% INTERFACE SYSTEM 12/03/2005 4:15 AM CDT Wicho Gomez MD ABG ORDERABLES Final Result Performing Organization Address [facility]/ZIP Co de Phone Number INTERFACE SYSTEM Refer to clinic/hospital department * (ABNORMAL) CBC WITH DIFFERENTIAL (12/03/2005 4:15 AM CDT) NEUTROPHIL ABSOLUTE 8.51(H) 1.90 - 7.00 K/uL INTERFACE SYSTEM LYMPHOCYTE ABSOLUTE 1.09 0.70 - 4.50 K/uL INTERFACE SYSTEM MONOCYTE ABSOLUTE 0.30 0.10 - 1.30 K/uL INTERFACE SYSTEM EOSINOPHIL ABSOLUTE 0.00 0.00 - 0.70 K/uL INTERFACE SYSTEM BASOPHILS ABSOLUTE 0.00 0.00 - 0.20 K/uL INTERFACE SYSTEM NEUTROPHILS, SEG 82(H) 45 - 70 % INT ERFACE SYSTEM BANDS 4 0 - 5 % INTERFACE SYSTEM LYMPHOCYTES 10(L) 16 - 45 % INTERFAC E SYSTEM MONOCYTES 3 3 - 13 % INTERFACE SYSTEM EOSINOPHILS 0 0 - 7 % INTERFAC E SYSTEM BASOPHILS 0 0 - 2 % INTERFACE SYSTEM ATYPICAL LYMPHOCYTE 1 0 - 5 % INTERFACE SYSTEM PLATELET EST. Consistent w/ count Normal INTERFACE SYSTEM ANISOCYTOSIS Slight INTERFA CE SYSTEM POIKILOCYTES Slight INTERFA CE SYSTEM POLYCHROMASIA Slight INTERF CINDY SYSTEM TOXIC GRANULATION Slight IN TERFACE SYSTEM DOHLE BODIES Present INTERFA CE SYSTEM 12/03/2005 4:15 AM CDT us Harshad Heller MD HEMATOLOGY ORDERABLES Final Res ult Performing Organization Address [facility] de Phone Number INTERFACE SYSTEM Refer to clinic/hospital department * (ABNORMAL) CBC WITH DIFFERENTIAL (12/03/2005 4:15 AM CDT) WBC 9.9(H) 4.0 - 9.8 K/uL INTERFACE SYSTEM RBC 3.27(L) 4.50 - 5.40 M/uL INTERFACE SYSTEM HEMOGLOBIN 10.2(L) 13.6 - 16.5 g/dL INTERFACE SYSTEM HEMATOCRIT 30.8(L) 40.0 - 48.0 % INTERFACE SYSTEM MCV 94.2 82.0 - 99.0 fL INTERFACE SYSTEM MCH 31.2 27.2 - 32.6 pg INTERFACE SYSTEM MCHC 33.1 31.5 - 35.5 % INTERFACE SYSTEM RDW 15.5(H) 11.5 - 14.5 % INTERFACE SYSTEM RDW-STDEV 53.2(H) 37.1 - 48.7 fL INTERFACE SYSTEM PLATELETS 202 140 - 350 K/uL INTERFACE SYSTEM MPV 10.1 9.3 - 12.4 fL INTERFACE SYSTEM 12/03/2005 4:15 AM CDT Harshad Heller MD HEMATOLOGY ORDERABLES Final Res ult Performing Organization Address [facility] Phone Number INTERFACE SYSTEM Refer to clinic/hospital department * PHOSPHORUS (12/03/2005 4:15 AM CDT) PHOSPHORUS 4.1 2.5 - 4.5 mg/dL INTERFACE SYSTEM 12/03/2005 4:15 AM CDT Harshad Heller MD CHEMISTRY ORDERABLES Final Resu lt Performing Organization Address [facility] Phone Number INTERFACE SYSTEM Refer to clinic/hospital department * MAGNESIUM LEVEL (12/03/2005 4:15 AM CDT) MAGNESIUM 2.4 1.5 - 2.5 mg/dL INTERFACE SYSTEM 12/03/2005 4:15 AM CDT Harshad Heller MD CHEMISTRY ORDERABLES Final Resu lt Performing Organization Address [facility] Phone Number INTERFACE SYSTEM Refer to clinic/hospital department * (ABNORMAL) CALCIUM IONIZED (12/03/2005 4:15 AM CDT) CALCIUM IONIZED 4.00(L) 4.76 - 5.16 mg/dL INTERFACE SYSTEM 12/03/2005 4:15 AM CDT Harshad Heller MD CHEMISTRY ORDERABLES Final Resu lt Performing Organization Address [facility] Phone Number INTERFACE SYSTEM Refer to clinic/hospital department * (ABNORMAL) BASIC METABOLIC PANEL (12/03/2005 4:15 AM CDT) GLUCOSE 175(H) 65 - 99 mg/dL INTERFACE SYSTEM CREATININE 0.9 0.5 - 1.3 mg/dL INTERFACE SYSTEM CALCIUM 6.6(L) 8.6 - 10.2 mg/dL INTERFACE SYSTEM BUN 28(H) 6 - 20 mg/dL INTERFACE SYSTEM SODIUM 145 135 - 145 mmol/L INTERFACE SYSTEM POTASSIUM 3.7 3.5 - 4.9 mmol/L INTERFACE SYSTEM CHLORIDE 113(H) 96 - 108 mmol/L INTERFACE SYSTEM CO2 27 22 - 30 mmol/L INTERFACE SYSTEM 12/03/2005 4:15 AM CDT us Harshad Heller MD CHEMISTRY ORDERABLES Final Resu lt INTERFACE SYSTEM Refer to clinic/hospital department * (ABNORMAL) POC GLUCOSE (12/03/2005 12:22 AM CDT) COMMENT, GLU POC Notified RN INTERFACE SYSTEM GLUCOSE POC 168(H) 65 - 109 mg/dL INTERFACE SYSTEM 12/03/2005 12:2 2 AM CDT us Wicho Gomez MD POINT OF CARE TESTING Final R esult Performing Organization Address City/[facility] Co de Phone Number INTERFACE SYSTEM Refer to clinic/hospital department * (ABNORMAL) CBC WITH DIFFERENTIAL (12/02/2005 9:27 PM CDT) NEUTROPHIL ABSOLUTE 10.80(H) 1.90 - 7.00 K/uL INTERFACE SYSTEM LYMPHOCYTE ABSOLUTE 0.96 0.70 - 4.50 K/uL INTERFACE SYSTEM MONOCYTE ABSOLUTE 0.24 0.10 - 1.30 K/uL INTERFACE SYSTEM EOSINOPHIL ABSOLUTE 0.00 0.00 - 0.70 K/uL INTERFACE SYSTEM BASOPHILS ABSOLUTE 0.00 0.00 - 0.20 K/uL INTERFACE SYSTEM NEUTROPHILS, SEG 88(H) 45 - 70 % INT ERFACE SYSTEM BANDS 2 0 - 5 % INTERFACE SYSTEM LYMPHOCYTES 6(L) 16 - 45 % INTERFAC E SYSTEM MONOCYTES 2(L) 3 - 13 % INTERFACE SYSTEM EOSINOPHILS 0 0 - 7 % INTERFAC E SYSTEM BASOPHILS 0 0 - 2 % INTERFACE SYSTEM ATYPICAL LYMPHOCYTE 2 0 - 5 % INTERFACE SYSTEM PLATELET EST. Consistent w/ count Normal INTERFACE SYSTEM ANISOCYTOSIS Slight INTERFA CE SYSTEM POIKILOCYTES Slight INTERFA CE SYSTEM POLYCHROMASIA Slight INTERF CINDY SYSTEM TOXIC GRANULATION Slight IN TERFACE SYSTEM DOHLE BODIES Present INTERFA CE SYSTEM 12/02/2005 9:27 PM CDT Wicho Gomez MD HEMATOLOGY ORDERABLES Final R esult Performing Organization Address [facility] Phone Number INTERFACE SYSTEM Refer to clinic/hospital department * (ABNORMAL) CBC WITH DIFFERENTIAL (12/02/2005 9:27 PM CDT) WBC 12.0(H) 4.0 - 9.8 K/uL INTERFACE SYSTEM RBC 3.52(L) 4.50 - 5.40 M/uL INTERFACE SYSTEM HEMOGLOBIN 10.8(L) 13.6 - 16.5 g/dL INTERFACE SYSTEM HEMATOCRIT 33.1(L) 40.0 - 48.0 % INTERFACE SYSTEM MCV 94.0 82.0 - 99.0 fL INTERFACE SYSTEM MCH 30.7 27.2 - 32.6 pg INTERFACE SYSTEM MCHC 32.6 31.5 - 35.5 % INTERFACE SYSTEM RDW 15.7(H) 11.5 - 14.5 % INTERFACE SYSTEM RDW-STDEV 54.2(H) 37.1 - 48.7 fL INTERFACE SYSTEM PLATELETS 215 140 - 350 K/uL INTERFACE SYSTEM MPV 10.2 9.3 - 12.4 fL INTERFACE SYSTEM 12/02/2005 9:27 PM CDT Wicho Gomez MD HEMATOLOGY ORDERABLES Final R esult Performing Organization Address [facility] Phone Number INTERFACE SYSTEM Refer to clinic/hospital department * (ABNORMAL) BASIC METABOLIC PANEL (12/02/2005 9:27 PM CDT) GLUCOSE 137(H) 65 - 99 mg/dL INTERFACE SYSTEM CREATININE 0.9 0.5 - 1.3 mg/dL INTERFACE SYSTEM CALCIUM 6.8(L) 8.6 - 10.2 mg/dL INTERFACE SYSTEM BUN 27(H) 6 - 20 mg/dL INTERFACE SYSTEM CO2 28 22 - 30 mmol/L INTERFACE SYSTEM SODIUM 146(H) 135 - 145 mmol/L INTERFACE SYSTEM POTASSIUM 3.9 3.5 - 4.9 mmol/L INTERFACE SYSTEM CHLORIDE 113(H) 96 - 108 mmol/L INTERFACE SYSTEM 12/02/2005 9:27 PM CDT Wicho Gomez MD CHEMISTRY ORDERABLES Final Re sult Performing Organization Address [facility] Phone Number INTERFACE SYSTEM Refer to clinic/hospital department * (ABNORMAL) PHOSPHORUS (12/02/2005 9:27 PM CDT) PHOSPHORUS 4.6(H) 2.5 - 4.5 mg/dL INTERFACE SYSTEM 12/02/2005 9:27 PM CDT Wicho Gomez MD CHEMISTRY ORDERABLES Final Re sult Performing Organization Address [facility] Phone Number INTERFACE SYSTEM Refer to clinic/hospital department * (ABNORMAL) CALCIUM IONIZED (12/02/2005 9:27 PM CDT) CALCIUM IONIZED 4.12(L) 4.76 - 5.16 mg/dL INTERFACE SYSTEM 12/02/2005 9:27 PM CDT Wicho Gomez MD CHEMISTRY ORDERABLES Final Re sult Performing Organization Address [facility] Phone Number INTERFACE SYSTEM Refer to clinic/hospital department * (ABNORMAL) BLOOD GAS ARTERIAL (12/02/2005 9:27 PM CDT) PH ARTERIAL 7.41 7.35 - 7.45 INTERFACE SYSTEM PCO2 ARTERIAL 45 35 - 48 mm Hg INTERFACE SYSTEM PO2 ARTERIAL 133(H) 83 - 108 mm Hg INTERFACE SYSTEM SO2 ABG 99 95 - 99 % INTERFACE SYSTEM FO2HB ABG 98 94 - 98 % INTERFACE SYSTEM HCO3 ARTERIAL 28(H) 22 - 26 mmol/L INTERFACE SYSTEM BASE EXCESS ABG 2.4 -2.0 - 3.0 mmol/L INTERFACE SYSTEM O2 CONC ARTERIAL 40% fio2 INTERFACE SYSTEM 12/02/2005 9:27 PM CDT Wicho Gomez MD ABG ORDERABLES Final Result INTERFACE SYSTEM Refer to clinic/hospital department * (ABNORMAL) PT AND APTT (12/02/2005 9:27 PM CDT) PROTIME 17.4(H) 12.7 - 15.1 Seconds INTERFACE SYSTEM INR 1.3(H) 0.9 - 1.1 INTERFACE SYSTEM Comment: INR Therapeutic Range: Adult: 2.0 - 3.0 for pulmonary embolism or prophylaxis against venous thrombosis or systemic embolization. 2.0 - 3.0 for patients with tissue heart valves. ?? 2.5 - 3.5 for patients with mechanical heart valves or post MD. Pediatric ??(12 years and under): 1.5 - 3.0 Although the target range in children is not well established , INR values of 1.5 - 3.0 are recommended for most patients. Higher values have been used in children with prosthetic cardiac valves and hereditary clotting disorders. (<3 days) therapeutic ranges have not been established. PTT 27.5 24.4 - 36.4 Seconds INTERFACE SYSTEM Comment: PTT Therapeutic Range: Heparin Level ? PTT (seconds) <0.10 units/mL ? <53 0.10 - 0.30 units/mL ? 53 - 67 0.30 - 0.70 units/mL* ?67 - 95* 0.70 - 1.00 units/mL ?95 - 116 *corresponds to therapeutic range for unfractionated heparin ?? 12/02/2005 9:27 PM CDT us Harshad Heller MD HEMATOLOGY ORDERABLES Final Res ult INTERFACE SYSTEM Refer to clinic/hospital department * (ABNORMAL) POC GLUCOSE (12/02/2005 5:34 PM CDT) GLUCOSE POC 123(H) 65 - 109 mg/dL INTERFACE SYSTEM 12/02/2005 5:34 PM CDT Wciho Gomez MD POINT OF CARE TESTING Final R esult Performing Organization Address [facility] Phone Number INTERFACE SYSTEM Refer to clinic/hospital department * (ABNORMAL) CALCIUM IONIZED (12/02/2005 3:01 PM CDT) CALCIUM IONIZED 3.88(L) 4.76 - 5.16 mg/dL INTERFACE SYSTEM 12/02/2005 3:01 PM CDT Harshad Heller MD CHEMISTRY ORDERABLES Final Resu lt Performing Organization Address [facility] Phone Number INTERFACE SYSTEM Refer to clinic/hospital department * (ABNORMAL) BLOOD GAS ARTERIAL (12/02/2005 3:01 PM CDT) PH ARTERIAL 7.37 7.35 - 7.45 INTERFACE SYSTEM PCO2 ARTERIAL 51(H) 35 - 48 mm Hg INTERFACE SYSTEM PO2 ARTERIAL 169(H) 83 - 108 mm Hg INTERFACE SYSTEM SO2 ABG 99 95 - 99 % INTERFACE SYSTEM FO2HB ABG 98 94 - 98 % INTERFACE SYSTEM HCO3 ARTERIAL 29(H) 22 - 26 mmol/L INTERFACE SYSTEM BASE EXCESS ABG 2.7 -2.0 - 3.0 mmol/L INTERFACE SYSTEM O2 CONC ARTERIAL 60% INTERFACE SYSTEM 12/02/2005 3:01 PM CDT Harshad Heller MD ABG ORDERABLES Final Result Performing Organization Address [facility] Phone Number INTERFACE SYSTEM Refer to clinic/hospital department * (ABNORMAL) BLOOD GAS ARTERIAL (12/02/2005 12:30 PM CDT) PH ARTERIAL 7.32(L) 7.35 - 7.45 INTERFACE SYSTEM PCO2 ARTERIAL 52(H) 35 - 48 mm Hg INTERFACE SYSTEM PO2 ARTERIAL 61(L) 83 - 108 mm Hg INTERFACE SYSTEM SO2 ABG 91(L) 95 - 99 % INTERFACE SYSTEM FO2HB ABG 89(L) 94 - 98 % INTERFACE SYSTEM HCO3 ARTERIAL 26 22 - 26 mmol/L INTERFACE SYSTEM BASE EXCESS ABG -0.8 -2.0 - 3.0 mmol/L INTERFACE SYSTEM O2 CONC ARTERIAL 50 INTERFACE SYSTEM 12/02/2005 12:3 0 PM CDT Harshad Heller MD ABG ORDERABLES Final Result Performing Organization Address [facility] INTERFACE SYSTEM Refer to clinic/hospital department * PHOSPHORUS (12/02/2005 12:30 PM CDT) PHOSPHORUS 2.8 2.5 - 4.5 mg/dL INTERFACE SYSTEM 12/02/2005 12:3 0 PM CDT Harshad Heller MD CHEMISTRY ORDERABLES Final Resu lt Performing Organization Address [facility] INTERFACE SYSTEM Refer to clinic/hospital department * (ABNORMAL) MAGNESIUM LEVEL (12/02/2005 12:30 PM CDT) MAGNESIUM 1.2(L) 1.5 - 2.5 mg/dL INTERFACE SYSTEM 12/02/2005 12:3 0 PM CDT Harshad Heller MD CHEMISTRY ORDERABLES Final Resu lt Performing Organization Address [facility] Phone [facility] INTERFACE SYSTEM Refer to clinic/hospital department * (ABNORMAL) CALCIUM IONIZED (12/02/2005 12:30 PM CDT) CALCIUM IONIZED 4.00(L) 4.76 - 5.16 mg/dL INTERFACE SYSTEM 12/02/2005 12:3 0 PM CDT Harshad Heller MD CHEMISTRY ORDERABLES Final Resu lt Performing Organization Address [facility] Phone Number INTERFACE SYSTEM Refer to clinic/hospital department * (ABNORMAL) BASIC METABOLIC PANEL (12/02/2005 12:30 PM CDT) GLUCOSE 89 65 - 99 mg/dL INTERFACE SYSTEM CREATININE 0.4(L) 0.5 - 1.3 mg/dL INTERFACE SYSTEM CALCIUM 6.4(AA) 8.6 - 10.2 mg/dL INTERFACE SYSTEM Comment:Results called to lucas evans at 12/02/2005 1:25 PM and read back verified. BUN 17 6 - 20 mg/dL INTERFACE SYSTEM SODIUM 139 135 - 145 mmol/L INTERFACE SYSTEM POTASSIUM 3.8 3.5 - 4.9 mmol/L INTERFACE SYSTEM CHLORIDE 109(H) 96 - 108 mmol/L INTERFACE SYSTEM CO2 18(L) 22 - 30 mmol/L INTERFACE SYSTEM 12/02/2005 12:3 0 PM CDT us Harshad Heller MD CHEMISTRY ORDERABLES Final Resu lt Performing Organization Address [facility] Co de Phone Number INTERFACE SYSTEM Refer to clinic/hospital department * (ABNORMAL) CBC WITH DIFFERENTIAL (12/02/2005 12:30 PM CDT) NEUTROPHIL ABSOLUTE 13.44(H) 1.90 - 7.00 K/uL INTERFACE SYSTEM LYMPHOCYTE ABSOLUTE 0.43(L) 0.70 - 4.50 K/uL INTERFACE SYSTEM MONOCYTE ABSOLUTE 0.29 0.10 - 1.30 K/uL INTERFACE SYSTEM EOSINOPHIL ABSOLUTE 0.14 0.00 - 0.70 K/uL INTERFACE SYSTEM BASOPHILS ABSOLUTE 0.00 0.00 - 0.20 K/uL INTERFACE SYSTEM NEUTROPHILS, SEG 93(H) 45 - 70 % INT ERFACE SYSTEM BANDS 1 0 - 5 % INTERFACE SYSTEM LYMPHOCYTES 3(L) 16 - 45 % INTERFAC E SYSTEM MONOCYTES 2(L) 3 - 13 % INTERFACE SYSTEM EOSINOPHILS 1 0 - 7 % INTERFAC E SYSTEM BASOPHILS 0 0 - 2 % INTERFACE SYSTEM PLATELET EST. Consistent w/ count Normal INTERFACE SYSTEM ANISOCYTOSIS Slight INTERFA CE SYSTEM MACROCYTES Slight INTERFACE SYSTEM POLYCHROMASIA Slight INTERF CINDY SYSTEM 12/02/2005 12:3 0 PM CDT Harshad Heller MD HEMATOLOGY ORDERABLES Final Res ult Performing Organization Address [facility] Co de Phone Number INTERFACE SYSTEM Refer to clinic/hospital department * (ABNORMAL) CBC WITH DIFFERENTIAL (12/02/2005 12:30 PM CDT) WBC 14.3(H) 4.0 - 9.8 K/uL INTERFACE SYSTEM RBC 3.11(L) 4.50 - 5.40 M/uL INTERFACE SYSTEM HEMOGLOBIN 9.6(L) 13.6 - 16.5 g/dL INTERFACE SYSTEM HEMATOCRIT 29.9(L) 40.0 - 48.0 % INTERFACE SYSTEM MCV 96.1 82.0 - 99.0 fL INTERFACE SYSTEM MCH 30.9 27.2 - 32.6 pg INTERFACE SYSTEM MCHC 32.1 31.5 - 35.5 % INTERFACE SYSTEM RDW 15.8(H) 11.5 - 14.5 % INTERFACE SYSTEM RDW-STDEV 55.2(H) 37.1 - 48.7 fL INTERFACE SYSTEM PLATELETS 178 140 - 350 K/uL INTERFACE SYSTEM MPV 10.3 9.3 - 12.4 fL INTERFACE SYSTEM 12/02/2005 12:3 0 PM CDT us Harshad Heller MD HEMATOLOGY ORDERABLES Final Res ult Performing Organization Address City/State/[facility] Co de Phone Number INTERFACE SYSTEM Refer to clinic/hospital department * (ABNORMAL) POC RT, BLOOD GASES (12/02/2005 11:12 AM CDT) PH ARTERIAL 7.42 7.35 - 7.45 INTERFACE SYSTEM PCO2 ARTERIAL 39 35 - 48 mm Hg INTERFACE SYSTEM PO2 ARTERIAL 251(H) 83 - 108 mm Hg INTERFACE SYSTEM O2 SAT EST ABG POC 100(H) 95 - 99 % INTERFACE SYSTEM PATIENT'S TEMPERATURE 37.0 Degree C INTERFACE SYSTEM BASE EXCESS ABG 0.8 -2.0 - 3.0 mmol/L INTERFACE SYSTEM HCO3 ARTERIAL 25 22 - 26 mmol/L INTERFACE SYSTEM SODIUM POC 143 135 - 145 mmol/L INTERFACE SYSTEM POTASSIUM POC 3.4(L) 3.5 - 4.9 mmol/L INTERFACE SYSTEM CALICUM IONIZED, WHOLE BLOOD 4.09(L) 4.76 - 5.16 mg/dL INTERFACE SYSTEM HEMATOCRIT POC 30.0(L) 40.0 - 48.0 % INTERFACE SYSTEM COMMENT, GASES POC NOTIFIED INTERFACE SYSTEM 12/02/2005 11:1 2 AM CDT us Wicho Gomez MD CHEMISTRY ORDERABLES Final Re sult Performing Organization Address City/[facility] Phone Number INTERFACE SYSTEM Refer to clinic/hospital department * POC GLUCOSE (12/02/2005 8:10 AM CDT) GLUCOSE POC 105 65 - 109 mg/dL INTERFACE SYSTEM COMMENT 4, GLU POC Rptd gluc at no charge INTERFACE SYSTEM 12/02/2005 8:10 AM CDT Wicho Gomez MD POINT OF CARE TESTING Final R esult Performing Organization Address [facility] Phone Number INTERFACE SYSTEM Refer to clinic/hospital department * (ABNORMAL) POC GLUCOSE (12/02/2005 8:08 AM CDT) COMMENT, GLU POC Notified RN INTERFACE SYSTEM GLUCOSE POC 36(AA) 65 - 109 mg/dL INTERFACE SYSTEM COMMENT 4, GLU POC Glucose to be verified INTERFACE SYSTEM 12/02/2005 8:08 AM CDT Wicho Gomez MD POINT OF CARE TESTING Final R esult Performing Organization Address [facility] Phone Number INTERFACE SYSTEM Refer to clinic/hospital department * (ABNORMAL) BLOOD GAS ARTERIAL (12/02/2005 4:15 AM CDT) PH ARTERIAL 7.37 7.35 - 7.45 INTERFACE SYSTEM PCO2 ARTERIAL 50(H) 35 - 48 mm Hg INTERFACE SYSTEM PO2 ARTERIAL 105 83 - 108 mm Hg INTERFACE SYSTEM SO2 ABG 98 95 - 99 % INTERFACE SYSTEM FO2HB ABG 97 94 - 98 % INTERFACE SYSTEM HCO3 ARTERIAL 29(H) 22 - 26 mmol/L INTERFACE SYSTEM BASE EXCESS ABG 2.7 -2.0 - 3.0 mmol/L INTERFACE SYSTEM O2 CONC ARTERIAL 50% INTERFACE SYSTEM 12/02/2005 4:15 AM CDT us Wicho Gomez MD ABG ORDERABLES Final Result Performing Organization Address [facility] Phone Number INTERFACE SYSTEM Refer to clinic/hospital department * (ABNORMAL) CBC WITH DIFFERENTIAL (12/02/2005 4:15 AM CDT) Pathologist [facility] NEUTROPHIL ABSOLUTE 7.87(H) 1.90 - 7.00 K/uL INTERFACE SYSTEM LYMPHOCYTE ABSOLUTE 1.34 0.70 - 4.50 K/uL INTERFACE SYSTEM MONOCYTE ABSOLUTE 0.29 0.10 - 1.30 K/uL INTERFACE SYSTEM EOSINOPHIL ABSOLUTE 0.00 0.00 - 0.70 K/uL INTERFACE SYSTEM BASOPHILS ABSOLUTE 0.00 0.00 - 0.20 K/uL INTERFACE SYSTEM NEUTROPHILS, SEG 79(H) 45 - 70 % INT ERFACE SYSTEM BANDS 3 0 - 5 % INTERFACE SYSTEM LYMPHOCYTES 14(L) 16 - 45 % INTERFAC E SYSTEM MONOCYTES 3 3 - 13 % INTERFACE SYSTEM EOSINOPHILS 0 0 - 7 % INTERFAC E SYSTEM BASOPHILS 0 0 - 2 % INTERFACE SYSTEM METAMYELOCYTE 1(H) <=0 % INTERF CINDY SYSTEM PLATELET EST. Consistent w/ count Normal INTERFACE SYSTEM ANISOCYTOSIS Slight INTERFA CE SYSTEM 12/02/2005 4:15 AM CDT Harshad Heller MD HEMATOLOGY ORDERABLES Final Res ult INTERFACE SYSTEM Refer to clinic/hospital department * (ABNORMAL) CBC WITH DIFFERENTIAL (12/02/2005 4:15 AM CDT) Pathologist [facility] WBC 9.6 4.0 - 9.8 K/uL INTERFACE SYSTEM RBC 3.19(L) 4.50 - 5.40 M/uL INTERFACE SYSTEM HEMOGLOBIN 10.0(L) 13.6 - 16.5 g/dL INTERFACE SYSTEM HEMATOCRIT 30.9(L) 40.0 - 48.0 % INTERFACE SYSTEM MCV 96.9 82.0 - 99.0 fL INTERFACE SYSTEM MCH 31.3 27.2 - 32.6 pg INTERFACE SYSTEM MCHC 32.4 31.5 - 35.5 % INTERFACE SYSTEM RDW 14.6(H) 11.5 - 14.5 % INTERFACE SYSTEM RDW-STDEV 52.4(H) 37.1 - 48.7 fL INTERFACE SYSTEM PLATELETS 220 140 - 350 K/uL INTERFACE SYSTEM MPV 10.2 9.3 - 12.4 fL INTERFACE SYSTEM 12/02/2005 4:15 AM CDT Harshad Heller MD HEMATOLOGY ORDERABLES Final Res ult INTERFACE SYSTEM Refer to clinic/hospital department * BRAIN NATRIURETIC PEPTIDE, BNP OR PROBNP (12/02/2005 4:15 AM CDT) PRO-BNP 2548 pg/mL INTERFACE SYSTEM Comment: proBNP Interpretation: Reference values for screening purposes based on monotyper's recommendation: Patients less than 75 years: <125 pg/mL Patients 75 years and older: <450 pg/mL Reference values for determination of acute congestive heart failure in dyspneic patients based on PRIDE study (AM J Cardiol 2005;95:948): Patients less than 50 years: <450 pg/mL (Negative predictive value= 99%) Patients 50 years and older: <900 pg/mL (Negative predictive value= 92%) ?? Rule out cutpoint, all ages: <300 pg/mL (Negative predictive value= 99% ) 12/02/2005 4:15 AM CDT us Wicho Gomez MD CHEMISTRY ORDERABLES Final Re sult INTERFACE SYSTEM Refer to clinic/hospital department * (ABNORMAL) PT AND APTT (12/02/2005 4:15 AM CDT) PTT 31.0 24.4 - 36.4 Seconds INTERFACE SYSTEM Comment: PTT Therapeutic Range: Heparin Level ? PTT (seconds) <0.10 units/mL ? <53 0.10 - 0.30 units/mL ? 53 - 67 0.30 - 0.70 units/mL* ?67 - 95* 0.70 - 1.00 units/mL ?95 - 116 *corresponds to therapeutic range for unfractionated heparin ?? PROTIME 17.7(H) 12.7 - 15.1 Seconds INTERFACE SYSTEM INR 1.4(H) 0.9 - 1.1 INTERFACE SYSTEM Comment: INR Therapeutic Range: Adult: 2.0 - 3.0 for pulmonary embolism or prophylaxis against venous thrombosis or systemic embolization. 2.0 - 3.0 for patients with tissue heart valves. ?? 2.5 - 3.5 for patients with mechanical heart valves or post MD. Pediatric ??(12 years and under): 1.5 - 3.0 Although the target range in children is not well established , INR values of 1.5 - 3.0 are recommended for most patients. Higher values have been used in children with prosthetic cardiac valves and hereditary clotting disorders. (<3 days) therapeutic ranges have not been established. 12/02/2005 4:15 AM CDT Harshad Heller MD HEMATOLOGY ORDERABLES Final Res ult Performing Organization Address [facility] Phone Number INTERFACE SYSTEM Refer to clinic/hospital department * (ABNORMAL) CALCIUM IONIZED (12/02/2005 4:15 AM CDT) CALCIUM IONIZED 4.00(L) 4.76 - 5.16 mg/dL INTERFACE SYSTEM 12/02/2005 4:15 AM CDT Harshad Heller MD CHEMISTRY ORDERABLES Final Resu lt Performing Organization Address [facility] Phone Number INTERFACE SYSTEM Refer to clinic/hospital department * PHOSPHORUS (12/02/2005 4:15 AM CDT) PHOSPHORUS 4.0 2.5 - 4.5 mg/dL INTERFACE SYSTEM 12/02/2005 4:15 AM CDT Harshad Heller MD CHEMISTRY ORDERABLES Final Resu lt Performing Organization Address [facility] Phone Number INTERFACE SYSTEM Refer to clinic/hospital department * MAGNESIUM LEVEL (12/02/2005 4:15 AM CDT) MAGNESIUM 2.1 1.5 - 2.5 mg/dL INTERFACE SYSTEM 12/02/2005 4:15 AM CDT Harshad Heller MD CHEMISTRY ORDERABLES Final Resu lt Performing Organization Address [facility] Phone Number INTERFACE SYSTEM Refer to clinic/hospital department * (ABNORMAL) BASIC METABOLIC PANEL (12/02/2005 4:15 AM CDT) GLUCOSE 110(H) 65 - 99 mg/dL INTERFACE SYSTEM CREATININE 0.9 0.5 - 1.3 mg/dL INTERFACE SYSTEM CALCIUM 7.1(L) 8.6 - 10.2 mg/dL INTERFACE SYSTEM BUN 27(H) 6 - 20 mg/dL INTERFACE SYSTEM SODIUM 146(H) 135 - 145 mmol/L INTERFACE SYSTEM POTASSIUM 4.0 3.5 - 4.9 mmol/L INTERFACE SYSTEM CHLORIDE 112(H) 96 - 108 mmol/L INTERFACE SYSTEM CO2 28 22 - 30 mmol/L INTERFACE SYSTEM 12/02/2005 4:15 AM CDT Harshad Heller MD CHEMISTRY ORDERABLES Final Resu lt Performing Organization Address [facility] Phone Number INTERFACE SYSTEM Refer to clinic/hospital department * (ABNORMAL) POC GLUCOSE (12/02/2005 12:13 AM CDT) COMMENT, GLU POC Notified RN INTERFACE SYSTEM GLUCOSE POC 135(H) 65 - 109 mg/dL INTERFACE SYSTEM 12/02/2005 12:1 3 AM CDT Wicho Gomez MD POINT OF CARE TESTING Final R esult Performing Organization Address [facility] Phone Number INTERFACE SYSTEM Refer to clinic/hospital department * (ABNORMAL) BLOOD GAS ARTERIAL (12/01/2005 11:05 PM CDT) PH ARTERIAL 7.35 7.35 - 7.45 INTERFACE SYSTEM PCO2 ARTERIAL 53(H) 35 - 48 mm Hg INTERFACE SYSTEM PO2 ARTERIAL 74(L) 83 - 108 mm Hg INTERFACE SYSTEM SO2 ABG 95 95 - 99 % INTERFACE SYSTEM FO2HB ABG 94 94 - 98 % INTERFACE SYSTEM HCO3 ARTERIAL 29(H) 22 - 26 mmol/L INTERFACE SYSTEM BASE EXCESS ABG 2.2 -2.0 - 3.0 mmol/L INTERFACE SYSTEM O2 CONC ARTERIAL 50% fio2 INTERFACE SYSTEM 12/01/2005 11:0 5 PM CDT us Harshad Heller MD ABG ORDERABLES Final Result Performing Organization Address [facility] Phone Number INTERFACE SYSTEM Refer to clinic/hospital department * POC GLUCOSE (12/01/2005 5:32 PM CDT) GLUCOSE POC 68 65 - 109 mg/dL INTERFACE SYSTEM 12/01/2005 5:32 PM CDT us Wicho Gomez MD POINT OF CARE TESTING Final R esult Performing Organization Address [facility] Phone Number INTERFACE SYSTEM Refer to clinic/hospital department * (ABNORMAL) PT AND APTT (12/01/2005 2:00 PM CDT) PTT 44.9(H) 24.4 - 36.4 Seconds INTERFACE SYSTEM Comment: PTT Therapeutic Range: Heparin Level ? PTT (seconds) <0.10 units/mL ? <53 0.10 - 0.30 units/mL ? 53 - 67 0.30 - 0.70 units/mL* ?67 - 95* 0.70 - 1.00 units/mL ?95 - 116 *corresponds to therapeutic range for unfractionated heparin ?? PROTIME 17.3(H) 12.7 - 15.1 Seconds INTERFACE SYSTEM INR 1.3(H) 0.9 - 1.1 INTERFACE SYSTEM Comment: INR Therapeutic Range: Adult: 2.0 - 3.0 for pulmonary embolism or prophylaxis against venous thrombosis or systemic embolization. 2.0 - 3.0 for patients with tissue heart valves. ?? 2.5 - 3.5 for patients with mechanical heart valves or post MD. Pediatric ??(12 years and under): 1.5 - 3.0 Although the target range in children is not well established , INR values of 1.5 - 3.0 are recommended for most patients. Higher values have been used in children with prosthetic cardiac valves and hereditary clotting disorders. (<3 days) therapeutic ranges have not been established. 12/01/2005 2:00 PM CDT Harshad Heller MD HEMATOLOGY ORDERABLES Final Res ult Performing Organization Address [facility] Phone Number INTERFACE SYSTEM Refer to clinic/hospital department * POC GLUCOSE (12/01/2005 12:17 PM CDT) GLUCOSE POC 96 65 - 109 mg/dL INTERFACE SYSTEM 12/01/2005 12:1 7 PM CDT Wicho Gomez MD POINT OF CARE TESTING Final R esult Performing Organization Address [facility] Phone Number INTERFACE SYSTEM Refer to clinic/hospital department * (ABNORMAL) PTT (12/01/2005 6:50 AM CDT) PTT 77.1(H) 24.4 - 36.4 Seconds INTERFACE SYSTEM Comment: PTT Therapeutic Range: Heparin Level ? PTT (seconds) <0.10 units/mL ? <53 0.10 - 0.30 units/mL ? 53 - 67 0.30 - 0.70 units/mL* ?67 - 95* 0.70 - 1.00 units/mL ?95 - 116 *corresponds to therapeutic range for unfractionated heparin ?? 12/01/2005 6:50 AM CDT Wicho Gomez MD HEMATOLOGY ORDERABLES Final R esult Performing Organization Address [facility] Phone Number INTERFACE SYSTEM Refer to clinic/hospital department * (ABNORMAL) BLOOD GAS ARTERIAL (12/01/2005 4:14 AM CDT) PH ARTERIAL 7.40 7.35 - 7.45 INTERFACE SYSTEM PCO2 ARTERIAL 44 35 - 48 mm Hg INTERFACE SYSTEM PO2 ARTERIAL 82(L) 83 - 108 mm Hg INTERFACE SYSTEM SO2 ABG 98 95 - 99 % INTERFACE SYSTEM FO2HB ABG 97 94 - 98 % INTERFACE SYSTEM HCO3 ARTERIAL 27(H) 22 - 26 mmol/L INTERFACE SYSTEM BASE EXCESS ABG 1.9 -2.0 - 3.0 mmol/L INTERFACE SYSTEM O2 CONC ARTERIAL 60% INTERFACE SYSTEM 12/01/2005 4:14 AM CDT us Wicho Gomez MD ABG ORDERABLES Final Result Performing Organization Address [facility] de Phone Number INTERFACE SYSTEM Refer to clinic/hospital department * (ABNORMAL) CBC WITH DIFFERENTIAL (12/01/2005 4:14 AM CDT) Pathologist [facility] NEUTROPHIL ABSOLUTE 4.53 1.90 - 7.00 K/uL INTERFACE SYSTEM LYMPHOCYTE ABSOLUTE 0.87 0.70 - 4.50 K/uL INTERFACE SYSTEM MONOCYTE ABSOLUTE 0.50 0.10 - 1.30 K/uL INTERFACE SYSTEM EOSINOPHIL ABSOLUTE 0.00 0.00 - 0.70 K/uL INTERFACE SYSTEM BASOPHILS ABSOLUTE 0.00 0.00 - 0.20 K/uL INTERFACE SYSTEM NEUTROPHILS, SEG 67 45 - 70 % INT ERFACE SYSTEM BANDS 6(H) 0 - 5 % INTERFACE SYSTEM LYMPHOCYTES 12(L) 16 - 45 % INTERFAC E SYSTEM MONOCYTES 8 3 - 13 % INTERFACE SYSTEM EOSINOPHILS 0 0 - 7 % INTERFAC E SYSTEM BASOPHILS 0 0 - 2 % INTERFACE SYSTEM METAMYELOCYTE 4(H) <=0 % INTERF CINDY SYSTEM MYELOCYTES 1(H) <=0 % INTERFACE SYSTEM ATYPICAL LYMPHOCYTE 2 0 - 5 % INTERFACE SYSTEM PLATELET EST. Consistent w/ count Normal INTERFACE SYSTEM ANISOCYTOSIS Slight INTERFA CE SYSTEM POIKILOCYTES Slight INTERFA CE SYSTEM 12/01/2005 4:14 AM CDT us Romie Laughlin MD HEMATOLOGY ORDERABLES Final Result Performing Organization Address [facility] de Phone Number INTERFACE SYSTEM Refer to clinic/hospital department * (ABNORMAL) CBC WITH DIFFERENTIAL (12/01/2005 4:14 AM CDT) WBC 6.2 4.0 - 9.8 K/uL INTERFACE SYSTEM RBC 2.86(L) 4.50 - 5.40 M/uL INTERFACE SYSTEM HEMOGLOBIN 9.0(L) 13.6 - 16.5 g/dL INTERFACE SYSTEM HEMATOCRIT 27.6(L) 40.0 - 48.0 % INTERFACE SYSTEM MCV 96.5 82.0 - 99.0 fL INTERFACE SYSTEM MCH 31.5 27.2 - 32.6 pg INTERFACE SYSTEM MCHC 32.6 31.5 - 35.5 % INTERFACE SYSTEM RDW 14.5 11.5 - 14.5 % INTERFACE SYSTEM RDW-STDEV 51.9(H) 37.1 - 48.7 fL INTERFACE SYSTEM PLATELETS 176 140 - 350 K/uL INTERFACE SYSTEM MPV 10.3 9.3 - 12.4 fL INTERFACE SYSTEM 12/01/2005 4:14 AM CDT Romie Laughlin MD HEMATOLOGY ORDERABLES Final Result Performing Organization Address [facility] Phone Number INTERFACE SYSTEM Refer to clinic/hospital department * (ABNORMAL) CALCIUM IONIZED (12/01/2005 4:14 AM CDT) CALCIUM IONIZED 4.12(L) 4.76 - 5.16 mg/dL INTERFACE SYSTEM 12/01/2005 4:14 AM CDT Romie Laughlin MD CHEMISTRY ORDERABLES Final R esult Performing Organization Address [facility] Phone Number INTERFACE SYSTEM Refer to clinic/hospital department * PHOSPHORUS (12/01/2005 4:14 AM CDT) PHOSPHORUS 3.4 2.5 - 4.5 mg/dL INTERFACE SYSTEM 12/01/2005 4:14 AM CDT Romie Laughlin MD CHEMISTRY ORDERABLES Final R esult Performing Organization Address [facility] de Phone Number INTERFACE SYSTEM Refer to clinic/hospital department * MAGNESIUM LEVEL (12/01/2005 4:14 AM CDT) MAGNESIUM 2.0 1.5 - 2.5 mg/dL INTERFACE SYSTEM 12/01/2005 4:14 AM CDT Romie Laughlin MD CHEMISTRY ORDERABLES Final [facility] Performing Organization Address [facility] Phone Number INTERFACE SYSTEM Refer to clinic/hospital department * (ABNORMAL) BASIC METABOLIC PANEL (12/01/2005 4:14 AM CDT) GLUCOSE 102(H) 65 - 99 mg/dL INTERFACE SYSTEM CREATININE 0.9 0.5 - 1.3 mg/dL INTERFACE SYSTEM CALCIUM 7.0(L) 8.6 - 10.2 mg/dL INTERFACE SYSTEM BUN 23(H) 6 - 20 mg/dL INTERFACE SYSTEM SODIUM 144 135 - 145 mmol/L INTERFACE SYSTEM POTASSIUM 3.9 3.5 - 4.9 mmol/L INTERFACE SYSTEM CHLORIDE 112(H) 96 - 108 mmol/L INTERFACE SYSTEM CO2 27 22 - 30 mmol/L INTERFACE SYSTEM 12/01/2005 4:14 AM CDT Romie Laughlin MD CHEMISTRY ORDERABLES [facility] Performing Organization Address [facility] Phone Number INTERFACE SYSTEM Refer to clinic/hospital department * (ABNORMAL) PTT (12/01/2005 12:15 AM CDT) PTT 41.1(H) 24.4 - 36.4 Seconds INTERFACE SYSTEM Comment: PTT Therapeutic Range: Heparin Level ? PTT (seconds) <0.10 units/mL ? <53 0.10 - 0.30 units/mL ? 53 - 67 0.30 - 0.70 units/mL* ?67 - 95* 0.70 - 1.00 units/mL ?95 - 116 *corresponds to therapeutic range for unfractionated heparin ?? 12/01/2005 12:1 5 AM CDT Wicho Gomez MD HEMATOLOGY ORDERABLES [facility] Performing Organization Address [facility] de Phone Number INTERFACE SYSTEM Refer to clinic/hospital department * (ABNORMAL) POC GLUCOSE (12/01/2005 12:12 AM CDT) COMMENT, GLU POC Notified RN INTERFACE SYSTEM GLUCOSE POC 124(H) 65 - 109 mg/dL INTERFACE SYSTEM 12/01/2005 12:1 2 AM CDT Wicho Gomez MD POINT OF CARE TESTING Final R [facility] Performing Organization Address [facility] Phone Number INTERFACE SYSTEM Refer to clinic/hospital department * (ABNORMAL) POC GLUCOSE (11/30/2005 5:33 PM CDT) GLUCOSE POC 111(H) 65 - 109 mg/dL INTERFACE SYSTEM 11/30/2005 5:33 PM CDT Wicho Gomez MD POINT OF CARE TESTING Final [facility] Performing Organization Address [facility] Phone Number INTERFACE SYSTEM Refer to clinic/hospital department * (ABNORMAL) PT AND APTT (11/30/2005 5:23 PM CDT) PROTIME 16.4(H) 12.7 - 15.1 Seconds INTERFACE SYSTEM INR 1.2(H) 0.9 - 1.1 INTERFACE SYSTEM Comment: INR Therapeutic Range: Adult: 2.0 - 3.0 for pulmonary embolism or prophylaxis against venous thrombosis or systemic embolization. 2.0 - 3.0 for patients with tissue heart valves. ?? 2.5 - 3.5 for patients with mechanical heart valves or post MD. Pediatric ??(12 years and under): 1.5 - 3.0 Although the target range in children is not well established , INR values of 1.5 - 3.0 are recommended for most patients. Higher values have been used in children with prosthetic cardiac valves and hereditary clotting disorders. (<3 days) therapeutic ranges have not been established. PTT 41.2(H) 24.4 - 36.4 Seconds INTERFACE SYSTEM Comment: PTT Therapeutic Range: Heparin Level ? PTT (seconds) <0.10 units/mL ? <53 0.10 - 0.30 units/mL ? 53 - 67 0.30 - 0.70 units/mL* ?67 - 95* 0.70 - 1.00 units/mL ?95 - 116 *corresponds to therapeutic range for unfractionated heparin ?? 11/30/2005 5:23 PM CDT Romie Laughlin MD HEMATOLOGY ORDERABLES Final Result Performing Organization Address [facility] Phone Number INTERFACE SYSTEM Refer to clinic/hospital department * (ABNORMAL) BLOOD GAS ARTERIAL (11/30/2005 1:16 PM CDT) PH ARTERIAL 7.41 7.35 - 7.45 INTERFACE SYSTEM PCO2 ARTERIAL 44 35 - 48 mm Hg INTERFACE SYSTEM PO2 ARTERIAL 105 83 - 108 mm Hg INTERFACE SYSTEM SO2 ABG 99 95 - 99 % INTERFACE SYSTEM FO2HB ABG 98 94 - 98 % INTERFACE SYSTEM HCO3 ARTERIAL 28(H) 22 - 26 mmol/L INTERFACE SYSTEM BASE EXCESS ABG 2.6 -2.0 - 3.0 mmol/L INTERFACE SYSTEM O2 CONC ARTERIAL 60% INTERFACE SYSTEM 11/30/2005 1:16 PM CDT Romie Laughlin MD ABG ORDERABLES Final Result Performing Organization Address [facility] de Phone Number INTERFACE SYSTEM Refer to clinic/hospital department * (ABNORMAL) POC GLUCOSE (11/30/2005 11:48 AM CDT) GLUCOSE POC 110(H) 65 - 109 mg/dL INTERFACE SYSTEM COMMENT 4, GLU POC Rptd gluc at no charge INTERFACE SYSTEM 11/30/2005 11:4 8 AM CDT Wicho Gomez MD POINT OF CARE TESTING Final R esult Performing Organization Address [facility] de Phone Number INTERFACE SYSTEM Refer to clinic/hospital department * (ABNORMAL) POC GLUCOSE (11/30/2005 11:46 AM CDT) COMMENT, GLU POC Notified RN INTERFACE SYSTEM COMMENT 3, GLU POC Repeated Test INTERFACE SYSTEM GLUCOSE POC 38(AA) 65 - 109 mg/dL INTERFACE SYSTEM 11/30/2005 11:4 6 AM CDT Wicho Gomez MD POINT OF CARE TESTING Final R esult Performing Organization Address [facility] de Phone Number INTERFACE SYSTEM Refer to clinic/hospital department * (ABNORMAL) RETICULOCYTES (11/30/2005 10:25 AM CDT) RETICULOCYTES 1.3 0.5 - 2.0 % INTERFACE SYSTEM IMMATURE RETIC FRACTION 18(H) 0 - 16 % INTERFACE SYSTEM 11/30/2005 10:2 5 AM CDT Romie Laughlin MD HEMATOLOGY ORDERABLES Final Result Performing Organization Address [facility] Phone Number INTERFACE SYSTEM Refer to clinic/hospital department * (ABNORMAL) BLOOD GAS ARTERIAL (11/30/2005 10:25 AM CDT) PH ARTERIAL 7.32(L) 7.35 - 7.45 INTERFACE SYSTEM PCO2 ARTERIAL 53(H) 35 - 48 mm Hg INTERFACE SYSTEM PO2 ARTERIAL 68(L) 83 - 108 mm Hg INTERFACE SYSTEM SO2 ABG 94(L) 95 - 99 % INTERFACE SYSTEM FO2HB ABG 93(L) 94 - 98 % INTERFACE SYSTEM HCO3 ARTERIAL 27(H) 22 - 26 mmol/L INTERFACE SYSTEM BASE EXCESS ABG 0.3 -2.0 - 3.0 mmol/L INTERFACE SYSTEM O2 CONC ARTERIAL 50% INTERFACE SYSTEM 11/30/2005 10:2 5 AM CDT Romie Laughlin MD ABG ORDERABLES Final Result Performing Organization Address [facility] Phone Number INTERFACE SYSTEM Refer to clinic/hospital department * (ABNORMAL) POC GLUCOSE (11/30/2005 8:19 AM CDT) GLUCOSE POC 175(H) 65 - 109 mg/dL INTERFACE SYSTEM 11/30/2005 8:19 AM CDT Wicho Gomez MD POINT OF CARE TESTING Final R esult Performing Organization Address [facility] Phone Number INTERFACE SYSTEM Refer to clinic/hospital department * (ABNORMAL) POC GLUCOSE (11/30/2005 3:53 AM CDT) GLUCOSE POC 144(H) 65 - 109 mg/dL INTERFACE SYSTEM 11/30/2005 3:53 AM CDT us Wicho Gomez MD POINT OF CARE TESTING Final R esult Performing Organization Address [facility] Phone Number INTERFACE SYSTEM Refer to clinic/hospital department * (ABNORMAL) BLOOD GAS ARTERIAL (11/30/2005 3:25 AM CDT) PH ARTERIAL 7.40 7.35 - 7.45 INTERFACE SYSTEM PCO2 ARTERIAL 45 35 - 48 mm Hg INTERFACE SYSTEM PO2 ARTERIAL 83 83 - 108 mm Hg INTERFACE SYSTEM O2 SAT EST ARTERIAL 96 94 - 98 % INTERFACE SYSTEM HCO3 ARTERIAL 27(H) 22 - 26 mmol/L INTERFACE SYSTEM BASE EXCESS ABG 1.9 -2.0 - 3.0 mmol/L INTERFACE SYSTEM Comment:Base Excess Estimate d; Assumes 15.0 g/dl Hemoglobin O2 CONC ARTERIAL 50% INTERFACE SYSTEM 11/30/2005 3:25 AM CDT Romie Laughlin MD ABG ORDERABLES Final Result Performing Organization Address [facility] Phone Number INTERFACE SYSTEM Refer to clinic/hospital department * (ABNORMAL) CBC WITH DIFFERENTIAL (11/30/2005 3:25 AM CDT) NEUTROPHIL ABSOLUTE 2.31 1.90 - 7.00 K/uL INTERFACE SYSTEM LYMPHOCYTE ABSOLUTE 0.59(L) 0.70 - 4.50 K/uL INTERFACE SYSTEM MONOCYTE ABSOLUTE 0.56 0.10 - 1.30 K/uL INTERFACE SYSTEM EOSINOPHIL ABSOLUTE 0.04 0.00 - 0.70 K/uL INTERFACE SYSTEM BASOPHILS ABSOLUTE 0.00 0.00 - 0.20 K/uL INTERFACE SYSTEM NEUTROPHILS, SEG 62 45 - 70 % INT ERFACE SYSTEM BANDS 4 0 - 5 % INTERFACE SYSTEM LYMPHOCYTES 16 16 - 45 % INTERFAC E SYSTEM MONOCYTES 16(H) 3 - 13 % INTERFACE SYSTEM EOSINOPHILS 1 0 - 7 % INTERFAC E SYSTEM BASOPHILS 0 0 - 2 % INTERFACE SYSTEM ATYPICAL LYMPHOCYTE 1 0 - 5 % INTERFACE SYSTEM PLATELET EST. Consistent w/ count Normal INTERFACE SYSTEM ANISOCYTOSIS Slight INTERFA CE SYSTEM POIKILOCYTES Slight INTERFA CE SYSTEM BASOPHILIC STIPPLING Slight INTERFACE SYSTEM 11/30/2005 3:25 AM CDT Romie Laughlin MD HEMATOLOGY ORDERABLES Final Result Performing Organization Address [place]/[facility] de Phone Number INTERFACE SYSTEM Refer to clinic/hospital department * (ABNORMAL) CBC WITH DIFFERENTIAL (11/30/2005 3:25 AM CDT) WBC 3.5(L) 4.0 - 9.8 K/uL INTERFACE SYSTEM RBC 2.77(L) 4.50 - 5.40 M/uL INTERFACE SYSTEM HEMOGLOBIN 8.7(L) 13.6 - 16.5 g/dL INTERFACE SYSTEM HEMATOCRIT 26.3(L) 40.0 - 48.0 % INTERFACE SYSTEM MCV 94.9 82.0 - 99.0 fL INTERFACE SYSTEM MCH 31.4 27.2 - 32.6 pg INTERFACE SYSTEM MCHC 33.1 31.5 - 35.5 % INTERFACE SYSTEM RDW 14.5 11.5 - 14.5 % INTERFACE SYSTEM RDW-STDEV 49.9(H) 37.1 - 48.7 fL INTERFACE SYSTEM PLATELETS 120(L) 140 - 350 K/uL INTERFACE SYSTEM MPV 10.9 9.3 - 12.4 fL INTERFACE SYSTEM 11/30/2005 3:25 AM CDT Romie Laughlin MD HEMATOLOGY ORDERABLES Final Result Performing Organization Address [place]/[facility]/ZIP Co de Phone Number INTERFACE SYSTEM Refer to clinic/hospital department * (ABNORMAL) PREALBUMIN (11/30/2005 3:25 AM CDT) PREALBUMIN <3(L) 20 - 40 mg/dL INTERFACE SYSTEM 11/30/2005 3:25 AM CDT Romie Laughlin MD CHEMISTRY ORDERABLES Final R esult Performing Organization Address [facility] Number INTERFACE SYSTEM Refer to clinic/hospital department * (ABNORMAL) CALCIUM IONIZED (11/30/2005 3:25 AM CDT) CALCIUM IONIZED 4.16(L) 4.76 - 5.16 mg/dL INTERFACE SYSTEM 11/30/2005 3:25 AM CDT Romie Laughlin MD CHEMISTRY ORDERABLES Final R esult Performing Organization Address [facility] Phone [facility] INTERFACE SYSTEM Refer to clinic/hospital department * PHOSPHORUS (11/30/2005 3:25 AM CDT) PHOSPHORUS 3.4 2.5 - 4.5 mg/dL INTERFACE SYSTEM 11/30/2005 3:25 AM CDT Romie Laughlin MD CHEMISTRY ORDERABLES Final R esult Performing Organization Address [facility] INTERFACE SYSTEM Refer to clinic/hospital department * MAGNESIUM LEVEL (11/30/2005 3:25 AM CDT) MAGNESIUM 2.0 1.5 - 2.5 mg/dL INTERFACE SYSTEM 11/30/2005 3:25 AM CDT Romie Laughlin MD CHEMISTRY ORDERABLES Final R esult Performing Organization Address [facility] Phone Number INTERFACE SYSTEM Refer to clinic/hospital department * (ABNORMAL) COMPREHENSIVE METABOLIC PANEL (11/30/2005 3:25 AM CDT) GLUCOSE 163(H) 65 - 99 mg/dL INTERFACE SYSTEM CREATININE 0.9 0.5 - 1.3 mg/dL INTERFACE SYSTEM ALKALINE PHOSPHATASE 64 40 - 129 U/L INTERFACE SYSTEM AST 36 12 - 38 U/L INTERFACE SYSTEM ALT 17 0 - 41 U/L INTERFACE SYSTEM TOTAL PROTEIN 3.6(L) 6.3 - 8.6 g/dL INTERFACE SYSTEM ALBUMIN 1.4(L) 3.4 - 4.8 g/dL INTERFACE SYSTEM BILIRUBIN TOTAL 0.8 0.2 - 1.0 mg/dL INTERFACE SYSTEM BUN 26(H) 6 - 20 mg/dL INTERFACE SYSTEM SODIUM 143 135 - 145 mmol/L INTERFACE SYSTEM POTASSIUM 4.0 3.5 - 4.9 mmol/L INTERFACE SYSTEM CHLORIDE 111(H) 96 - 108 mmol/L INTERFACE SYSTEM CO2 26 22 - 30 mmol/L INTERFACE SYSTEM CALCIUM 6.8(L) 8.6 - 10.2 mg/dL INTERFACE SYSTEM 11/30/2005 3:25 AM CDT Romie Laughlin MD CHEMISTRY ORDERABLES Final R esult Performing Organization Address [facility] de Phone Number INTERFACE SYSTEM Refer to clinic/hospital department * POC GLUCOSE (11/30/2005 1:11 AM CDT) GLUCOSE POC 103 65 - 109 mg/dL INTERFACE SYSTEM 11/30/2005 1:11 AM CDT Wicho Gomez MD POINT OF CARE TESTING Final R esult Performing Organization Address [facility] de Phone Number INTERFACE SYSTEM Refer to clinic/hospital department * (ABNORMAL) POC GLUCOSE (11/29/2005 8:13 PM CDT) GLUCOSE POC 142(H) 65 - 109 mg/dL INTERFACE SYSTEM 11/29/2005 8:13 PM CDT us Wicho Gomez MD POINT OF CARE TESTING Final R esult Performing Organization Address [place]/[facility] de Phone Number INTERFACE SYSTEM Refer to clinic/hospital department * (ABNORMAL) BLOOD GAS ARTERIAL (11/29/2005 5:30 PM CDT) PH ARTERIAL 7.47(H) 7.35 - 7.45 INTERFACE SYSTEM PCO2 ARTERIAL 38 35 - 48 mm Hg INTERFACE SYSTEM PO2 ARTERIAL 100 83 - 108 mm Hg INTERFACE SYSTEM SO2 ABG 99 95 - 99 % INTERFACE SYSTEM FO2HB ABG 97 94 - 98 % INTERFACE SYSTEM HCO3 ARTERIAL 27(H) 22 - 26 mmol/L INTERFACE SYSTEM BASE EXCESS ABG 3.4(H) -2.0 - 3.0 mmol/L INTERFACE SYSTEM O2 CONC ARTERIAL 50% INTERFACE SYSTEM 11/29/2005 5:30 PM CDT Romie Laughlin MD ABG ORDERABLES Final Result Performing Organization Address [facility] Phone Number INTERFACE SYSTEM Refer to clinic/hospital department * (ABNORMAL) POC GLUCOSE (11/29/2005 4:16 PM CDT) GLUCOSE POC 151(H) 65 - 109 mg/dL INTERFACE SYSTEM 11/29/2005 4:16 PM CDT Wicho Gomez MD POINT OF CARE TESTING Final R esult Performing Organization Address [facility] Phone Number INTERFACE SYSTEM Refer to clinic/hospital department * (ABNORMAL) POC GLUCOSE (11/29/2005 12:33 PM CDT) GLUCOSE POC 122(H) 65 - 109 mg/dL INTERFACE SYSTEM 11/29/2005 12:3 3 PM CDT Wicho Gomez MD POINT OF CARE TESTING Final R esult Performing Organization Address [facility] de Phone Number INTERFACE SYSTEM Refer to clinic/hospital department * (ABNORMAL) POC GLUCOSE (11/29/2005 8:38 AM CDT) GLUCOSE POC 121(H) 65 - 109 mg/dL INTERFACE SYSTEM 11/29/2005 8:38 AM CDT us Wicho Gomez MD POINT OF CARE TESTING Final R esult Performing Organization Address [facility] de Phone Number INTERFACE SYSTEM Refer to clinic/hospital department * PHOSPHORUS (11/29/2005 4:20 AM CDT) PHOSPHORUS 3.3 2.5 - 4.5 mg/dL INTERFACE SYSTEM 11/29/2005 4:20 AM CDT Harshad Heller MD CHEMISTRY ORDERABLES Final Resu lt Performing Organization Address [facility] de Phone Number INTERFACE SYSTEM Refer to clinic/hospital department * MAGNESIUM LEVEL (11/29/2005 4:20 AM CDT) MAGNESIUM 2.1 1.5 - 2.5 mg/dL INTERFACE SYSTEM 11/29/2005 4:20 AM CDT Harshad Heller MD CHEMISTRY ORDERABLES Final Resu lt Performing Organization Address [facility] Phone Number INTERFACE SYSTEM Refer to clinic/hospital department * (ABNORMAL) CBC WITH DIFFERENTIAL (11/29/2005 4:20 AM CDT) NEUTROPHIL ABSOLUTE 2.38 1.90 - 7.00 K/uL INTERFACE SYSTEM LYMPHOCYTE ABSOLUTE 0.40(L) 0.70 - 4.50 K/uL INTERFACE SYSTEM MONOCYTE ABSOLUTE 0.53 0.10 - 1.30 K/uL INTERFACE SYSTEM EOSINOPHIL ABSOLUTE 0.00 0.00 - 0.70 K/uL INTERFACE SYSTEM BASOPHILS ABSOLUTE 0.00 0.00 - 0.20 K/uL INTERFACE SYSTEM NEUTROPHILS, SEG 70 45 - 70 % INT ERFACE SYSTEM BANDS 2 0 - 5 % INTERFACE SYSTEM LYMPHOCYTES 10(L) 16 - 45 % INTERFAC E SYSTEM MONOCYTES 16(H) 3 - 13 % INTERFACE SYSTEM EOSINOPHILS 0 0 - 7 % INTERFAC E SYSTEM BASOPHILS 0 0 - 2 % INTERFACE SYSTEM ATYPICAL LYMPHOCYTE 2 0 - 5 % INTERFACE SYSTEM PLATELET EST. Consistent w/ count Normal INTERFACE SYSTEM ANISOCYTOSIS Slight INTERFA CE SYSTEM HYPOCHROMIA Slight INTERFAC E SYSTEM TOXIC GRANULATION Slight INTERFACE SYSTEM DOHLE BODIES Present INTERFA CE SYSTEM VACUOLATED NEUTROPHILS Present INTERFACE SYSTEM 11/29/2005 4:20 AM CDT Harshad Heller MD HEMATOLOGY ORDERABLES Final Res ult Performing Organization Address [facility] Co de Phone Number INTERFACE SYSTEM Refer to clinic/hospital department * (ABNORMAL) CBC WITH DIFFERENTIAL (11/29/2005 4:20 AM CDT) WBC 3.3(L) 4.0 - 9.8 K/uL INTERFACE SYSTEM RBC 2.96(L) 4.50 - 5.40 M/uL INTERFACE SYSTEM HEMOGLOBIN 9.5(L) 13.6 - 16.5 g/dL INTERFACE SYSTEM HEMATOCRIT 27.5(L) 40.0 - 48.0 % INTERFACE SYSTEM MCV 92.9 82.0 - 99.0 fL INTERFACE SYSTEM MCH 32.1 27.2 - 32.6 pg INTERFACE SYSTEM MCHC 34.5 31.5 - 35.5 % INTERFACE SYSTEM RDW 14.5 11.5 - 14.5 % INTERFACE SYSTEM RDW-STDEV 49.3(H) 37.1 - 48.7 fL INTERFACE SYSTEM PLATELETS 99(L) 140 - 350 K/uL INTERFACE SYSTEM MPV 11.0 9.3 - 12.4 fL INTERFACE SYSTEM 11/29/2005 4:20 AM CDT Harshad Heller MD HEMATOLOGY ORDERABLES Final Res ult Performing Organization Address [facility] de Phone Number INTERFACE SYSTEM Refer to clinic/hospital department * (ABNORMAL) BASIC METABOLIC PANEL (11/29/2005 4:20 AM CDT) GLUCOSE 112(H) 65 - 99 mg/dL INTERFACE SYSTEM CREATININE 1.0 0.5 - 1.3 mg/dL INTERFACE SYSTEM CALCIUM 6.6(L) 8.6 - 10.2 mg/dL INTERFACE SYSTEM BUN 30(H) 6 - 20 mg/dL INTERFACE SYSTEM SODIUM 140 135 - 145 mmol/L INTERFACE SYSTEM POTASSIUM 4.2 3.5 - 4.9 mmol/L INTERFACE SYSTEM CHLORIDE 109(H) 96 - 108 mmol/L INTERFACE SYSTEM CO2 25 22 - 30 mmol/L INTERFACE SYSTEM 11/29/2005 4:20 AM CDT Harshad Heller MD CHEMISTRY ORDERABLES Final Resu lt Performing Organization Address [facility] Phone Number INTERFACE SYSTEM Refer to clinic/hospital department * (ABNORMAL) CALCIUM IONIZED (11/29/2005 4:20 AM CDT) CALCIUM IONIZED 3.92(L) 4.76 - 5.16 mg/dL INTERFACE SYSTEM 11/29/2005 4:20 AM CDT us Harshad Heller MD CHEMISTRY ORDERABLES Final Resu lt Performing Organization Address [facility] Phone Number INTERFACE SYSTEM Refer to clinic/hospital department * (ABNORMAL) BLOOD GAS ARTERIAL (11/29/2005 4:20 AM CDT) PH ARTERIAL 7.38 7.35 - 7.45 INTERFACE SYSTEM PCO2 ARTERIAL 50(H) 35 - 48 mm Hg INTERFACE SYSTEM PO2 ARTERIAL 80(L) 83 - 108 mm Hg INTERFACE SYSTEM SO2 ABG 98 95 - 99 % INTERFACE SYSTEM FO2HB ABG 97 94 - 98 % INTERFACE SYSTEM HCO3 ARTERIAL 29(H) 22 - 26 mmol/L INTERFACE SYSTEM BASE EXCESS ABG 3.4(H) -2.0 - 3.0 mmol/L INTERFACE SYSTEM O2 CONC ARTERIAL 50% INTERFACE SYSTEM 11/29/2005 4:20 AM CDT Harshad Heller MD ABG ORDERABLES Final Result Performing Organization Address [facility] Phone Number INTERFACE SYSTEM Refer to clinic/hospital department * POC GLUCOSE (11/29/2005 4:19 AM CDT) GLUCOSE POC 106 65 - 109 mg/dL INTERFACE SYSTEM 11/29/2005 4:19 AM CDT us Wicho Gomez MD POINT OF CARE TESTING Final R esult Performing Organization Address [facility] Phone Number INTERFACE SYSTEM Refer to clinic/hospital department * POC GLUCOSE (11/29/2005 1:03 AM CDT) GLUCOSE POC 79 65 - 109 mg/dL INTERFACE SYSTEM 11/29/2005 1:03 AM CDT us Wicho Gomez MD POINT OF CARE TESTING Final R esult Performing Organization Address [facility] Phone Number INTERFACE SYSTEM Refer to clinic/hospital department * (ABNORMAL) POC GLUCOSE (11/28/2005 8:40 PM CDT) GLUCOSE POC 130(H) 65 - 109 mg/dL INTERFACE SYSTEM 11/28/2005 8:40 PM CDT us Wicho Gomez MD POINT OF CARE TESTING Final R [facility] Performing Organization Address [facility] Phone Number INTERFACE SYSTEM Refer to clinic/hospital department * (ABNORMAL) POC GLUCOSE (11/28/2005 6:01 PM CDT) GLUCOSE POC 143(H) 65 - 109 mg/dL INTERFACE SYSTEM 11/28/2005 6:01 PM CDT us Wicho Gomez MD POINT OF CARE TESTING Final R [facility] Performing Organization Address [facility] Phone Number INTERFACE SYSTEM Refer to clinic/hospital department * POC GLUCOSE (11/28/2005 3:13 PM CDT) GLUCOSE POC 93 65 - 109 mg/dL INTERFACE SYSTEM 11/28/2005 3:13 PM CDT us Wicho Gomez MD POINT OF CARE TESTING Final [facility] Performing Organization Address City/[facility] de Phone Number INTERFACE SYSTEM Refer to clinic/hospital department * (ABNORMAL) POC GLUCOSE (11/28/2005 9:49 AM CDT) GLUCOSE POC 129(H) 65 - 109 mg/dL INTERFACE SYSTEM 11/28/2005 9:49 AM CDT us Wicho Gomez MD POINT OF CARE TESTING Final R esult Performing Organization Address [facility] de Phone Number INTERFACE SYSTEM Refer to clinic/hospital department * BLOOD GAS ARTERIAL (11/28/2005 3:45 AM CDT) PH ARTERIAL 7.39 7.35 - 7.45 INTERFACE SYSTEM PCO2 ARTERIAL 45 35 - 48 mm Hg INTERFACE SYSTEM PO2 ARTERIAL 92 83 - 108 mm Hg INTERFACE SYSTEM SO2 ABG 99 95 - 99 % INTERFACE SYSTEM FO2HB ABG 98 94 - 98 % INTERFACE SYSTEM HCO3 ARTERIAL 26 22 - 26 mmol/L INTERFACE SYSTEM BASE EXCESS ABG 1.0 -2.0 - 3.0 mmol/L INTERFACE SYSTEM O2 CONC ARTERIAL 70% INTERFACE SYSTEM 11/28/2005 3:45 AM CDT Harshad Heller MD ABG ORDERABLES Final Result Performing Organization Address [facility] de Phone Number INTERFACE SYSTEM Refer to clinic/hospital department * (ABNORMAL) CBC WITH DIFFERENTIAL (11/28/2005 3:45 AM CDT) NEUTROPHIL ABSOLUTE 3.68 1.90 - 7.00 K/uL INTERFACE SYSTEM LYMPHOCYTE ABSOLUTE 0.74 0.70 - 4.50 K/uL INTERFACE SYSTEM MONOCYTE ABSOLUTE 0.09(L) 0.10 - 1.30 K/uL INTERFACE SYSTEM EOSINOPHIL ABSOLUTE 0.05 0.00 - 0.70 K/uL INTERFACE SYSTEM BASOPHILS ABSOLUTE 0.00 0.00 - 0.20 K/uL INTERFACE SYSTEM NEUTROPHILS, SEG 59 45 - 70 % INT ERFACE SYSTEM BANDS 21(H) 0 - 5 % INTERFACE SYSTEM LYMPHOCYTES 15(L) 16 - 45 % INTERFAC E SYSTEM MONOCYTES 2(L) 3 - 13 % INTERFACE SYSTEM EOSINOPHILS 1 0 - 7 % INTERFAC E SYSTEM BASOPHILS 0 0 - 2 % INTERFACE SYSTEM METAMYELOCYTE 1(H) <=0 % INTERF CINDY SYSTEM ATYPICAL LYMPHOCYTE 1 0 - 5 % INTERFACE SYSTEM PLATELET EST. Consistent w/ count Normal INTERFACE SYSTEM ANISOCYTOSIS Slight INTERFA CE SYSTEM POIKILOCYTES Slight INTERFA CE SYSTEM MICROCYTES Slight INTERFACE SYSTEM MACROCYTES Slight INTERFACE SYSTEM POLYCHROMASIA Slight INTERF CINDY SYSTEM HYPOCHROMIA Slight INTERFAC E SYSTEM TEAR DROP CELLS Slight INTE RFACE SYSTEM STANLEY-JOLLY BODIES Present INTERFACE SYSTEM REVIEWED ON SMEAR WBC & Plt Reviewed INTERFACE SYSTEM 11/28/2005 3:45 AM CDT Harshad Heller MD HEMATOLOGY ORDERABLES Final Res ult Performing Organization Address [facility] Phone Number INTERFACE SYSTEM Refer to clinic/hospital department * CBC WITH DIFFERENTIAL (11/28/2005 3:45 AM CDT) NRBC 0 <=0 /100 WBC INTERFACE SYSTEM 11/28/2005 3:45 AM CDT Harshad Heller MD HEMATOLOGY ORDERABLES Final Res ult Performing Organization Address [facility] Phone Number INTERFACE SYSTEM Refer to clinic/hospital department * (ABNORMAL) CBC WITH DIFFERENTIAL (11/28/2005 3:45 AM CDT) WBC 4.6 4.0 - 9.8 K/uL INTERFACE SYSTEM RBC 2.61(L) 4.50 - 5.40 M/uL INTERFACE SYSTEM HEMOGLOBIN 8.3(L) 13.6 - 16.5 g/dL INTERFACE SYSTEM HEMATOCRIT 24.7(L) 40.0 - 48.0 % INTERFACE SYSTEM MCV 94.6 82.0 - 99.0 fL INTERFACE SYSTEM MCH 31.8 27.2 - 32.6 pg INTERFACE SYSTEM MCHC 33.6 31.5 - 35.5 % INTERFACE SYSTEM RDW 13.6 11.5 - 14.5 % INTERFACE SYSTEM RDW-STDEV 47.4 37.1 - 48.7 fL INTERFACE SYSTEM PLATELETS 91(L) 140 - 350 K/uL INTERFACE SYSTEM Comment: WBC and Platelets verified by smear review. Persistent abnormal result MPV 10.3 9.3 - 12.4 fL INTERFACE SYSTEM 11/28/2005 3:45 AM CDT Harshad Heller MD HEMATOLOGY ORDERABLES Final Res ult Performing Organization Address [facility] Phone Number INTERFACE SYSTEM Refer to clinic/hospital department * (ABNORMAL) BASIC METABOLIC PANEL (11/28/2005 3:45 AM CDT) GLUCOSE 150(H) 65 - 99 mg/dL INTERFACE SYSTEM CREATININE 1.1 0.5 - 1.3 mg/dL INTERFACE SYSTEM CALCIUM 6.6(L) 8.6 - 10.2 mg/dL INTERFACE SYSTEM BUN 25(H) 6 - 20 mg/dL INTERFACE SYSTEM SODIUM 138 135 - 145 mmol/L INTERFACE SYSTEM POTASSIUM 4.5 3.5 - 4.9 mmol/L INTERFACE SYSTEM CHLORIDE 108 96 - 108 mmol/L INTERFACE SYSTEM CO2 26 22 - 30 mmol/L INTERFACE SYSTEM 11/28/2005 3:45 AM CDT Harshad Heller MD CHEMISTRY ORDERABLES Final Resu lt Performing Organization Address [facility] Phone Number INTERFACE SYSTEM Refer to clinic/hospital department * MAGNESIUM LEVEL (11/28/2005 3:45 AM CDT) MAGNESIUM 2.1 1.5 - 2.5 mg/dL INTERFACE SYSTEM 11/28/2005 3:45 AM CDT Harshad Heller MD CHEMISTRY ORDERABLES Final Resu lt Performing Organization Address [facility] Phone Number INTERFACE SYSTEM Refer to clinic/hospital department * (ABNORMAL) CALCIUM IONIZED (11/28/2005 3:45 AM CDT) CALCIUM IONIZED 4.12(L) 4.76 - 5.16 mg/dL INTERFACE SYSTEM 11/28/2005 3:45 AM CDT Harshad Heller MD CHEMISTRY ORDERABLES Final Resu lt Performing Organization Address [facility] Phone Number INTERFACE SYSTEM Refer to clinic/hospital department * (ABNORMAL) PT AND APTT (11/28/2005 3:45 AM CDT) PROTIME 17.6(H) 12.7 - 15.1 Seconds INTERFACE SYSTEM INR 1.3(H) 0.9 - 1.1 INTERFACE SYSTEM Comment: INR Therapeutic Range: Adult: 2.0 - 3.0 for pulmonary embolism or prophylaxis against venous thrombosis or systemic embolization. 2.0 - 3.0 for patients with tissue heart valves. ?? 2.5 - 3.5 for patients with mechanical heart valves or post MD. Pediatric ??(12 years and under): 1.5 - 3.0 Although the target range in children is not well established , INR values of 1.5 - 3.0 are recommended for most patients. Higher values have been used in children with prosthetic cardiac valves and hereditary clotting disorders. (<3 days) therapeutic ranges have not been established. PTT 42.5(H) 24.4 - 36.4 Seconds INTERFACE SYSTEM Comment: PTT Therapeutic Range: Heparin Level ? PTT (seconds) <0.10 units/mL ? <53 0.10 - 0.30 units/mL ? 53 - 67 0.30 - 0.70 units/mL* ?67 - 95* 0.70 - 1.00 units/mL ?95 - 116 *corresponds to therapeutic range for unfractionated heparin ?? 11/28/2005 3:45 AM CDT us Harshad Heller MD HEMATOLOGY ORDERABLES Final Res ult Performing Organization Address [place]/[facility] Co de Phone Number INTERFACE SYSTEM Refer to clinic/hospital department * PHOSPHORUS (11/28/2005 3:45 AM CDT) PHOSPHORUS 3.9 2.5 - 4.5 mg/dL INTERFACE SYSTEM 11/28/2005 3:45 AM CDT us Harshad Heller MD CHEMISTRY ORDERABLES Final Resu lt INTERFACE SYSTEM Refer to clinic/hospital department * (ABNORMAL) POC GLUCOSE (11/28/2005 12:53 AM CDT) GLUCOSE POC 136(H) 65 - 109 mg/dL INTERFACE SYSTEM 11/28/2005 12:5 3 AM CDT Wicho Gomez MD POINT OF CARE TESTING Final R esult Performing Organization Address [facility] Phone Number INTERFACE SYSTEM Refer to clinic/hospital department * (ABNORMAL) POC GLUCOSE (11/27/2005 9:37 PM CDT) Pathologist [facility] GLUCOSE POC 146(H) 65 - 109 mg/dL INTERFACE SYSTEM 11/27/2005 9:37 PM CDT Wicho Gomez MD POINT OF CARE TESTING Final R [facility] Performing Organization Address [facility] Phone Number INTERFACE SYSTEM Refer to clinic/hospital department * (ABNORMAL) BLOOD GAS ARTERIAL (11/27/2005 4:21 PM CDT) PH ARTERIAL 7.38 7.35 - 7.45 INTERFACE SYSTEM PCO2 ARTERIAL 46 35 - 48 mm Hg INTERFACE SYSTEM PO2 ARTERIAL 67(L) 83 - 108 mm Hg INTERFACE SYSTEM SO2 ABG 96 95 - 99 % INTERFACE SYSTEM FO2HB ABG 95 94 - 98 % INTERFACE SYSTEM HCO3 ARTERIAL 27(H) 22 - 26 mmol/L INTERFACE SYSTEM BASE EXCESS ABG 1.3 -2.0 - 3.0 mmol/L INTERFACE SYSTEM O2 CONC ARTERIAL 45% INTERFACE SYSTEM 11/27/2005 4:21 PM CDT Harshad Heller MD ABG ORDERABLES Final Result Performing Organization Address [facility] Phone Number INTERFACE SYSTEM Refer to clinic/hospital department * (ABNORMAL) CBC WITH DIFFERENTIAL (11/27/2005 4:00 PM CDT) NEUTROPHIL ABSOLUTE 4.26 1.90 - 7.00 K/uL INTERFACE SYSTEM LYMPHOCYTE ABSOLUTE 0.50(L) 0.70 - 4.50 K/uL INTERFACE SYSTEM MONOCYTE ABSOLUTE 0.50 0.10 - 1.30 K/uL INTERFACE SYSTEM EOSINOPHIL ABSOLUTE 0.00 0.00 - 0.70 K/uL INTERFACE SYSTEM BASOPHILS ABSOLUTE 0.11 0.00 - 0.20 K/uL INTERFACE SYSTEM NEUTROPHILS, SEG 41(L) 45 - 70 % INT ERFACE SYSTEM BANDS 35(H) 0 - 5 % INTERFACE SYSTEM LYMPHOCYTES 9(L) 16 - 45 % INTERFAC E SYSTEM MONOCYTES 9 3 - 13 % INTERFACE SYSTEM EOSINOPHILS 0 0 - 7 % INTERFAC E SYSTEM BASOPHILS 2 0 - 2 % INTERFACE SYSTEM METAMYELOCYTE 4(H) <=0 % INTERF CINDY SYSTEM PLATELET EST. Consistent w/ count Normal INTERFACE SYSTEM RBC MORPHOLOGY Normal Normal INTER FACE SYSTEM POLYCHROMASIA Slight INTERF CINDY SYSTEM DOHLE BODIES Present INTERFA CE SYSTEM VACUOLATED NEUTROPHILS Present INTERFACE SYSTEM REVIEWED ON SMEAR Plt OK by Smear Rev. INTERFACE SYSTEM 11/27/2005 4:00 PM CDT Harshad Heller MD HEMATOLOGY ORDERABLES Final Res ult Performing Organization Address [facility] Co de Phone Number INTERFACE SYSTEM Refer to clinic/hospital department * (ABNORMAL) CBC WITH DIFFERENTIAL (11/27/2005 4:00 PM CDT) WBC 5.6 4.0 - 9.8 K/uL INTERFACE SYSTEM RBC 3.01(L) 4.50 - 5.40 M/uL INTERFACE SYSTEM HEMOGLOBIN 9.7(L) 13.6 - 16.5 g/dL INTERFACE SYSTEM HEMATOCRIT 28.5(L) 40.0 - 48.0 % INTERFACE SYSTEM MCV 94.7 82.0 - 99.0 fL INTERFACE SYSTEM MCH 32.2 27.2 - 32.6 pg INTERFACE SYSTEM MCHC 34.0 31.5 - 35.5 % INTERFACE SYSTEM RDW 13.3 11.5 - 14.5 % INTERFACE SYSTEM RDW-STDEV 46.0 37.1 - 48.7 fL INTERFACE SYSTEM PLATELETS 106(L) 140 - 350 K/uL INTERFACE SYSTEM MPV 10.4 9.3 - 12.4 fL INTERFACE SYSTEM 11/27/2005 4:00 PM CDT Harshad Heller MD HEMATOLOGY ORDERABLES Final Res ult INTERFACE SYSTEM Refer to clinic/hospital department * (ABNORMAL) BASIC METABOLIC PANEL (11/27/2005 4:00 PM CDT) GLUCOSE 143(H) 65 - 99 mg/dL INTERFACE SYSTEM CREATININE 0.9 0.5 - 1.3 mg/dL INTERFACE SYSTEM CALCIUM 6.7(L) 8.6 - 10.2 mg/dL INTERFACE SYSTEM BUN 21(H) 6 - 20 mg/dL INTERFACE SYSTEM SODIUM 136 135 - 145 mmol/L INTERFACE SYSTEM POTASSIUM 4.4 3.5 - 4.9 mmol/L INTERFACE SYSTEM CHLORIDE 106 96 - 108 mmol/L INTERFACE SYSTEM CO2 25 22 - 30 mmol/L INTERFACE SYSTEM 11/27/2005 4:00 PM CDT Harshad Heller MD CHEMISTRY ORDERABLES Final Resu lt Performing Organization Address [place]/[facility] de Phone Number INTERFACE SYSTEM Refer to clinic/hospital department * (ABNORMAL) PHOSPHORUS (11/27/2005 4:00 PM CDT) PHOSPHORUS 1.9(L) 2.5 - 4.5 mg/dL INTERFACE SYSTEM 11/27/2005 4:00 PM CDT Harshad Heller MD CHEMISTRY ORDERABLES Final Resu lt Performing Organization Address [facility] de Phone Number INTERFACE SYSTEM Refer to clinic/hospital department * (ABNORMAL) PT AND APTT (11/27/2005 4:00 PM CDT) PROTIME 18.7(H) 12.7 - 15.1 Seconds INTERFACE SYSTEM INR 1.5(H) 0.9 - 1.1 INTERFACE SYSTEM Comment: INR Therapeutic Range: Adult: 2.0 - 3.0 for pulmonary embolism or prophylaxis against venous thrombosis or systemic embolization. 2.0 - 3.0 for patients with tissue heart valves. ?? 2.5 - 3.5 for patients with mechanical heart valves or post MD. Pediatric ??(12 years and under): 1.5 - 3.0 Although the target range in children is not well established , INR values of 1.5 - 3.0 are recommended for most patients. Higher values have been used in children with prosthetic cardiac valves and hereditary clotting disorders. (<3 days) therapeutic ranges have not been established. PTT 45.9(H) 24.4 - 36.4 Seconds INTERFACE SYSTEM Comment: PTT Therapeutic Range: Heparin Level ? PTT (seconds) <0.10 units/mL ? <53 0.10 - 0.30 units/mL ? 53 - 67 0.30 - 0.70 units/mL* ?67 - 95* 0.70 - 1.00 units/mL ?95 - 116 *corresponds to therapeutic range for unfractionated heparin ?? 11/27/2005 4:00 PM CDT us Harshad Heller MD HEMATOLOGY ORDERABLES Final Res ult Performing Organization Address [facility] Phone Number INTERFACE SYSTEM Refer to clinic/hospital department * (ABNORMAL) CALCIUM IONIZED (11/27/2005 4:00 PM CDT) CALCIUM IONIZED 4.24(L) 4.76 - 5.16 mg/dL INTERFACE SYSTEM 11/27/2005 4:00 PM CDT Harshad Heller MD CHEMISTRY ORDERABLES Final Resu lt Performing Organization Address [facility] Phone Number INTERFACE SYSTEM Refer to clinic/hospital department * MAGNESIUM LEVEL (11/27/2005 4:00 PM CDT) MAGNESIUM 1.8 1.5 - 2.5 mg/dL INTERFACE SYSTEM 11/27/2005 4:00 PM CDT Harshad Heller MD CHEMISTRY ORDERABLES Final Resu lt Performing Organization Address [facility] Phone Number INTERFACE SYSTEM Refer to clinic/hospital department * (ABNORMAL) POC GLUCOSE (11/27/2005 12:25 PM CDT) GLUCOSE POC 160(H) 65 - 109 mg/dL INTERFACE SYSTEM 11/27/2005 12:2 5 PM CDT us Wicho Gomez MD POINT OF CARE TESTING Final R esult Performing Organization Address [facility] de Phone Number INTERFACE SYSTEM Refer to clinic/hospital department * (ABNORMAL) BLOOD GAS ARTERIAL (11/27/2005 3:15 AM CDT) PH ARTERIAL 7.43 7.35 - 7.45 INTERFACE SYSTEM PCO2 ARTERIAL 39 35 - 48 mm Hg INTERFACE SYSTEM PO2 ARTERIAL 79(L) 83 - 108 mm Hg INTERFACE SYSTEM SO2 ABG 98 95 - 99 % INTERFACE SYSTEM FO2HB ABG 97 94 - 98 % INTERFACE SYSTEM HCO3 ARTERIAL 26 22 - 26 mmol/L INTERFACE SYSTEM BASE EXCESS ABG 1.3 -2.0 - 3.0 mmol/L INTERFACE SYSTEM O2 CONC ARTERIAL 99% INTERFACE SYSTEM 11/27/2005 3:15 AM CDT us Harshad Heller MD ABG ORDERABLES Final Result Performing Organization Address [facility] de Phone Number INTERFACE SYSTEM Refer to clinic/hospital department * (ABNORMAL) CBC WITH DIFFERENTIAL (11/27/2005 3:15 AM CDT) NEUTROPHIL ABSOLUTE 3.97 1.90 - 7.00 K/uL INTERFACE SYSTEM LYMPHOCYTE ABSOLUTE 0.49(L) 0.70 - 4.50 K/uL INTERFACE SYSTEM MONOCYTE ABSOLUTE 0.44 0.10 - 1.30 K/uL INTERFACE SYSTEM EOSINOPHIL ABSOLUTE 0.00 0.00 - 0.70 K/uL INTERFACE SYSTEM BASOPHILS ABSOLUTE 0.00 0.00 - 0.20 K/uL INTERFACE SYSTEM NEUTROPHILS, SEG 69 45 - 70 % INT ERFACE SYSTEM BANDS 12(H) 0 - 5 % INTERFACE SYSTEM LYMPHOCYTES 10(L) 16 - 45 % INTERFAC E SYSTEM MONOCYTES 9 3 - 13 % INTERFACE SYSTEM EOSINOPHILS 0 0 - 7 % INTERFAC E SYSTEM BASOPHILS 0 0 - 2 % INTERFACE SYSTEM PLATELET EST. Consistent w/ count Normal INTERFACE SYSTEM ANISOCYTOSIS Slight INTERFA CE SYSTEM POIKILOCYTES Slight INTERFA CE SYSTEM MICROCYTES Slight INTERFACE SYSTEM HYPOCHROMIA Slight INTERFAC E SYSTEM REVIEWED ON SMEAR Plt OK by Smear Rev. INTERFACE SYSTEM 11/27/2005 3:15 AM CDT Harshad Heller MD HEMATOLOGY ORDERABLES Final Res ult Performing Organization Address [facility] Phone Number INTERFACE SYSTEM Refer to clinic/hospital department * (ABNORMAL) CBC WITH DIFFERENTIAL (11/27/2005 3:15 AM CDT) WBC 4.9 4.0 - 9.8 K/uL INTERFACE SYSTEM RBC 3.01(L) 4.50 - 5.40 M/uL INTERFACE SYSTEM HEMOGLOBIN 9.7(L) 13.6 - 16.5 g/dL INTERFACE SYSTEM HEMATOCRIT 27.9(L) 40.0 - 48.0 % INTERFACE SYSTEM MCV 92.7 82.0 - 99.0 fL INTERFACE SYSTEM MCH 32.2 27.2 - 32.6 pg INTERFACE SYSTEM MCHC 34.8 31.5 - 35.5 % INTERFACE SYSTEM RDW 13.0 11.5 - 14.5 % INTERFACE SYSTEM RDW-STDEV 44.1 37.1 - 48.7 fL INTERFACE SYSTEM PLATELETS 92(L) 140 - 350 K/uL INTERFACE SYSTEM MPV 9.9 9.3 - 12.4 fL INTERFACE SYSTEM 11/27/2005 3:15 AM CDT us Harshad Heller MD HEMATOLOGY ORDERABLES Final Res ult Performing Organization Address [facility] Phone Number INTERFACE SYSTEM Refer to clinic/hospital department * LACTIC ACID (11/27/2005 3:15 AM CDT) LACTIC ACID 1.1 0.5 - 2.2 mmol/L INTERFACE SYSTEM 11/27/2005 3:15 AM CDT Harshad Heller MD CHEMISTRY ORDERABLES Final Resu lt Performing Organization Address [facility] Phone Number INTERFACE SYSTEM Refer to clinic/hospital department * (ABNORMAL) PT AND APTT (11/27/2005 3:15 AM CDT) PROTIME 18.1(H) 12.7 - 15.1 Seconds INTERFACE SYSTEM INR 1.4(H) 0.9 - 1.1 INTERFACE SYSTEM Comment: INR Therapeutic Range: Adult: 2.0 - 3.0 for pulmonary embolism or prophylaxis against venous thrombosis or systemic embolization. 2.0 - 3.0 for patients with tissue heart valves. ?? 2.5 - 3.5 for patients with mechanical heart valves or post MD. Pediatric ??(12 years and under): 1.5 - 3.0 Although the target range in children is not well established , INR values of 1.5 - 3.0 are recommended for most patients. Higher values have been used in children with prosthetic cardiac valves and hereditary clotting disorders. (<3 days) therapeutic ranges have not been established. PTT 38.9(H) 24.4 - 36.4 Seconds INTERFACE SYSTEM Comment: PTT Therapeutic Range: Heparin Level ? PTT (seconds) <0.10 units/mL ? <53 0.10 - 0.30 units/mL ? 53 - 67 0.30 - 0.70 units/mL* ?67 - 95* 0.70 - 1.00 units/mL ?95 - 116 *corresponds to therapeutic range for unfractionated heparin ?? 11/27/2005 3:15 AM CDT Harshad Heller MD HEMATOLOGY ORDERABLES Final Res ult Performing Organization Address [facility] de Phone Number INTERFACE SYSTEM Refer to clinic/hospital department * (ABNORMAL) CALCIUM IONIZED (11/27/2005 3:15 AM CDT) CALCIUM IONIZED 4.12(L) 4.76 - 5.16 mg/dL INTERFACE SYSTEM 11/27/2005 3:15 AM CDT Harshad Heller MD CHEMISTRY ORDERABLES Final Resu lt Performing Organization Address [facility] de Phone Number INTERFACE SYSTEM Refer to clinic/hospital department * (ABNORMAL) PHOSPHORUS (11/27/2005 3:15 AM CDT) PHOSPHORUS 2.1(L) 2.5 - 4.5 mg/dL INTERFACE SYSTEM 11/27/2005 3:15 AM CDT Harshad Heller MD CHEMISTRY ORDERABLES Final Resu lt Performing Organization Address [facility] Phone Number INTERFACE SYSTEM Refer to clinic/hospital department * MAGNESIUM LEVEL (11/27/2005 3:15 AM CDT) MAGNESIUM 2.0 1.5 - 2.5 mg/dL INTERFACE SYSTEM 11/27/2005 3:15 AM CDT Harshad Heller MD CHEMISTRY ORDERABLES Final Resu Performing Organization Address [facility] Phone Number INTERFACE SYSTEM Refer to clinic/hospital department * (ABNORMAL) BASIC METABOLIC PANEL (11/27/2005 3:15 AM CDT) GLUCOSE 176(H) 65 - 99 mg/dL INTERFACE SYSTEM CREATININE 0.8 0.5 - 1.3 mg/dL INTERFACE SYSTEM CALCIUM 6.4(AA) 8.6 - 10.2 mg/dL INTERFACE SYSTEM Comment: Persistent abnormal result Results called to Regine at 11/27/2005 4:04 AM and read back verified. BUN 20 6 - 20 mg/dL INTERFACE SYSTEM SODIUM 133(L) 135 - 145 mmol/L INTERFACE SYSTEM POTASSIUM 3.8 3.5 - 4.9 mmol/L INTERFACE SYSTEM CHLORIDE 106 96 - 108 mmol/L INTERFACE SYSTEM CO2 24 22 - 30 mmol/L INTERFACE SYSTEM 11/27/2005 3:15 AM CDT Harshad Heller MD CHEMISTRY ORDERABLES Final Resu lt Performing Organization Address [facility] Phone Number INTERFACE SYSTEM Refer to clinic/hospital department * (ABNORMAL) CBC WITH DIFFERENTIAL (11/26/2005 11:00 PM CDT) NEUTROPHIL ABSOLUTE 2.11 1.90 - 7.00 K/uL INTERFACE SYSTEM LYMPHOCYTE ABSOLUTE 0.96 0.70 - 4.50 K/uL INTERFACE SYSTEM MONOCYTE ABSOLUTE 0.44 0.10 - 1.30 K/uL INTERFACE SYSTEM EOSINOPHIL ABSOLUTE 0.11 0.00 - 0.70 K/uL INTERFACE SYSTEM BASOPHILS ABSOLUTE 0.00 0.00 - 0.20 K/uL INTERFACE SYSTEM NEUTROPHILS, SEG 52 45 - 70 % INT ERFACE SYSTEM BANDS 5 0 - 5 % INTERFACE SYSTEM LYMPHOCYTES 26 16 - 45 % INTERFAC E SYSTEM MONOCYTES 12 3 - 13 % INTERFACE SYSTEM EOSINOPHILS 3 0 - 7 % INTERFAC E SYSTEM BASOPHILS 0 0 - 2 % INTERFACE SYSTEM MYELOCYTES 2(H) <=0 % INTERFACE SYSTEM PLATELET EST. Consistent w/ count Normal INTERFACE SYSTEM ANISOCYTOSIS Slight INTERFA CE SYSTEM POIKILOCYTES Slight INTERFA CE SYSTEM MICROCYTES Slight INTERFACE SYSTEM HYPOCHROMIA Slight INTERFAC E SYSTEM TOXIC GRANULATION Slight INTERFACE SYSTEM DOHLE BODIES Present INTERFA CE SYSTEM VACUOLATED NEUTROPHILS Present INTERFACE SYSTEM REVIEWED ON SMEAR Plt OK by Smear Rev. INTERFACE SYSTEM 11/26/2005 11:0 0 PM CDT us Harshad Heller MD HEMATOLOGY ORDERABLES Final Res ult INTERFACE SYSTEM Refer to clinic/hospital department * (ABNORMAL) CBC WITH DIFFERENTIAL (11/26/2005 11:00 PM CDT) WBC 3.7(L) 4.0 - 9.8 K/uL INTERFACE SYSTEM RBC 2.62(L) 4.50 - 5.40 M/uL INTERFACE SYSTEM HEMOGLOBIN 8.5(L) 13.6 - 16.5 g/dL INTERFACE SYSTEM HEMATOCRIT 24.2(L) 40.0 - 48.0 % INTERFACE SYSTEM MCV 92.4 82.0 - 99.0 fL INTERFACE SYSTEM MCH 32.4 27.2 - 32.6 pg INTERFACE SYSTEM MCHC 35.1 31.5 - 35.5 % INTERFACE SYSTEM RDW 13.0 11.5 - 14.5 % INTERFACE SYSTEM RDW-STDEV 43.8 37.1 - 48.7 fL INTERFACE SYSTEM PLATELETS 67(L) 140 - 350 K/uL INTERFACE SYSTEM MPV 9.6 9.3 - 12.4 fL INTERFACE SYSTEM 11/26/2005 11:0 0 PM CDT us Harshad Heller MD HEMATOLOGY ORDERABLES Final Res ult INTERFACE SYSTEM Refer to clinic/hospital department * (ABNORMAL) PT AND APTT (11/26/2005 11:00 PM CDT) PROTIME 19.8(H) 12.7 - 15.1 Seconds INTERFACE SYSTEM INR 1.6(H) 0.9 - 1.1 INTERFACE SYSTEM Comment: INR Therapeutic Range: Adult: 2.0 - 3.0 for pulmonary embolism or prophylaxis against venous thrombosis or systemic embolization. 2.0 - 3.0 for patients with tissue heart valves. ?? 2.5 - 3.5 for patients with mechanical heart valves or post MD. Pediatric ??(12 years and under): 1.5 - 3.0 Although the target range in children is not well established , INR values of 1.5 - 3.0 are recommended for most patients. Higher values have been used in children with prosthetic cardiac valves and hereditary clotting disorders. (<3 days) therapeutic ranges have not been established. PTT 44.7(H) 24.4 - 36.4 Seconds INTERFACE SYSTEM Comment: PTT Therapeutic Range: Heparin Level ? PTT (seconds) <0.10 units/mL ? <53 0.10 - 0.30 units/mL ? 53 - 67 0.30 - 0.70 units/mL* ?67 - 95* 0.70 - 1.00 units/mL ?95 - 116 *corresponds to therapeutic range for unfractionated heparin ?? 11/26/2005 11:0 0 PM CDT us Harshad Heller MD HEMATOLOGY ORDERABLES Final Res ult INTERFACE SYSTEM Refer to clinic/hospital department * (ABNORMAL) CALCIUM IONIZED (11/26/2005 11:00 PM CDT) CALCIUM IONIZED 4.20(L) 4.76 - 5.16 mg/dL INTERFACE SYSTEM 11/26/2005 11:0 0 PM CDT Harshad Heller MD CHEMISTRY ORDERABLES Final Resu lt Performing Organization Address [facility] Phone Number INTERFACE SYSTEM Refer to clinic/hospital department * (ABNORMAL) PHOSPHORUS (11/26/2005 11:00 PM CDT) PHOSPHORUS 1.5(L) 2.5 - 4.5 mg/dL INTERFACE SYSTEM 11/26/2005 11:0 0 PM CDT Harshad Heller MD CHEMISTRY ORDERABLES Final Resu lt Performing Organization Address [facility] Phone Number INTERFACE SYSTEM Refer to clinic/hospital department * MAGNESIUM LEVEL (11/26/2005 11:00 PM CDT) MAGNESIUM 2.2 1.5 - 2.5 mg/dL INTERFACE SYSTEM 11/26/2005 11:0 0 PM CDT Harshad Heller MD CHEMISTRY ORDERABLES Final Resu lt Performing Organization Address [facility] Phone Number INTERFACE SYSTEM Refer to clinic/hospital department * (ABNORMAL) BASIC METABOLIC PANEL (11/26/2005 11:00 PM CDT) GLUCOSE 185(H) 65 - 99 mg/dL INTERFACE SYSTEM CREATININE 0.9 0.5 - 1.3 mg/dL INTERFACE SYSTEM CALCIUM 6.5(AA) 8.6 - 10.2 mg/dL INTERFACE SYSTEM Comment:Results called to Zayra laura at 11/26/2005 11:59 PM and read back verified. BUN 21(H) 6 - 20 mg/dL INTERFACE SYSTEM SODIUM 133(L) 135 - 145 mmol/L INTERFACE SYSTEM POTASSIUM 3.7 3.5 - 4.9 mmol/L INTERFACE SYSTEM CHLORIDE 106 96 - 108 mmol/L INTERFACE SYSTEM CO2 24 22 - 30 mmol/L INTERFACE SYSTEM 11/26/2005 11:0 0 PM CDT Harshad Heller MD CHEMISTRY ORDERABLES Final Resu lt Performing Organization Address [facility] Phone Number INTERFACE SYSTEM Refer to clinic/hospital department * (ABNORMAL) CBC WITH DIFFERENTIAL (11/26/2005 4:00 PM CDT) NEUTROPHIL ABSOLUTE 2.21 1.90 - 7.00 K/uL INTERFACE SYSTEM LYMPHOCYTE ABSOLUTE 0.59(L) 0.70 - 4.50 K/uL INTERFACE SYSTEM MONOCYTE ABSOLUTE 0.21 0.10 - 1.30 K/uL INTERFACE SYSTEM EOSINOPHIL ABSOLUTE 0.00 0.00 - 0.70 K/uL INTERFACE SYSTEM BASOPHILS ABSOLUTE 0.04 0.00 - 0.20 K/uL INTERFACE SYSTEM NEUTROPHILS, SEG 28(L) 45 - 70 % INT ERFACE SYSTEM BANDS 35(H) 0 - 5 % INTERFACE SYSTEM LYMPHOCYTES 17 16 - 45 % INTERFAC E SYSTEM MONOCYTES 6 3 - 13 % INTERFACE SYSTEM EOSINOPHILS 0 0 - 7 % INTERFAC E SYSTEM BASOPHILS 1 0 - 2 % INTERFACE SYSTEM METAMYELOCYTE 13(H) <=0 % INTERF CINDY SYSTEM PLATELET EST. Consistent w/ count Normal INTERFACE SYSTEM RBC MORPHOLOGY Normal Normal INTER FACE SYSTEM 11/26/2005 4:00 PM CDT Harshad Heller MD HEMATOLOGY ORDERABLES Final Res ult Performing Organization Address [facility] Phone Number INTERFACE SYSTEM Refer to clinic/hospital department * (ABNORMAL) CBC WITH DIFFERENTIAL (11/26/2005 4:00 PM CDT) WBC 3.5(L) 4.0 - 9.8 K/uL INTERFACE SYSTEM RBC 3.07(L) 4.50 - 5.40 M/uL INTERFACE SYSTEM HEMOGLOBIN 10.0(L) 13.6 - 16.5 g/dL INTERFACE SYSTEM HEMATOCRIT 28.2(L) 40.0 - 48.0 % INTERFACE SYSTEM MCV 91.9 82.0 - 99.0 fL INTERFACE SYSTEM MCH 32.6 27.2 - 32.6 pg INTERFACE SYSTEM MCHC 35.5 31.5 - 35.5 % INTERFACE SYSTEM RDW 13.0 11.5 - 14.5 % INTERFACE SYSTEM RDW-STDEV 43.9 37.1 - 48.7 fL INTERFACE SYSTEM PLATELETS 81(L) 140 - 350 K/uL INTERFACE SYSTEM MPV 9.7 9.3 - 12.4 fL INTERFACE SYSTEM 11/26/2005 4:00 PM CDT us Harshad Heller MD HEMATOLOGY ORDERABLES Final Res ult INTERFACE SYSTEM Refer to clinic/hospital department * (ABNORMAL) PT AND APTT (11/26/2005 4:00 PM CDT) PROTIME 20.8(H) 12.7 - 15.1 Seconds INTERFACE SYSTEM INR 1.7(H) 0.9 - 1.1 INTERFACE SYSTEM Comment: INR Therapeutic Range: Adult: 2.0 - 3.0 for pulmonary embolism or prophylaxis against venous thrombosis or systemic embolization. 2.0 - 3.0 for patients with tissue heart valves. ?? 2.5 - 3.5 for patients with mechanical heart valves or post MD. Pediatric ??(12 years and under): 1.5 - 3.0 Although the target range in children is not well established , INR values of 1.5 - 3.0 are recommended for most patients. Higher values have been used in children with prosthetic cardiac valves and hereditary clotting disorders. (<3 days) therapeutic ranges have not been established. PTT 40.5(H) 24.4 - 36.4 Seconds INTERFACE SYSTEM Comment: PTT Therapeutic Range: Heparin Level ? PTT (seconds) <0.10 units/mL ? <53 0.10 - 0.30 units/mL ? 53 - 67 0.30 - 0.70 units/mL* ?67 - 95* 0.70 - 1.00 units/mL ?95 - 116 *corresponds to therapeutic range for unfractionated heparin ?? 11/26/2005 4:00 PM CDT Harshad Heller MD HEMATOLOGY ORDERABLES Final Res ult Performing Organization Address [facility] Phone Number INTERFACE SYSTEM Refer to clinic/hospital department * (ABNORMAL) CALCIUM IONIZED (11/26/2005 4:00 PM CDT) CALCIUM IONIZED 4.08(L) 4.76 - 5.16 mg/dL INTERFACE SYSTEM 11/26/2005 4:00 PM CDT Harshad Heller MD CHEMISTRY ORDERABLES Final Resu lt Performing Organization Address [facility] Phone Number INTERFACE SYSTEM Refer to clinic/hospital department * (ABNORMAL) PHOSPHORUS (11/26/2005 4:00 PM CDT) PHOSPHORUS 1.3(L) 2.5 - 4.5 mg/dL INTERFACE SYSTEM 11/26/2005 4:00 PM CDT Harshad Heller MD CHEMISTRY ORDERABLES Final Resu lt Performing Organization Address [facility] Phone Number INTERFACE SYSTEM Refer to clinic/hospital department * MAGNESIUM LEVEL (11/26/2005 4:00 PM CDT) MAGNESIUM 1.5 1.5 - 2.5 mg/dL INTERFACE SYSTEM 11/26/2005 4:00 PM CDT Harshad Heller MD CHEMISTRY ORDERABLES Final Resu lt Performing Organization Address [facility] Phone Number INTERFACE SYSTEM Refer to clinic/hospital department * (ABNORMAL) BASIC METABOLIC PANEL (11/26/2005 4:00 PM CDT) GLUCOSE 161(H) 65 - 99 mg/dL INTERFACE SYSTEM CREATININE 0.8 0.5 - 1.3 mg/dL INTERFACE SYSTEM CALCIUM 6.5(AA) 8.6 - 10.2 mg/dL INTERFACE SYSTEM Comment:Results called to Yumiko ron at 11/26/2005 5:04 PM and read back verified. BUN 19 6 - 20 mg/dL INTERFACE SYSTEM SODIUM 132(L) 135 - 145 mmol/L INTERFACE SYSTEM POTASSIUM 4.1 3.5 - 4.9 mmol/L INTERFACE SYSTEM CHLORIDE 105 96 - 108 mmol/L INTERFACE SYSTEM CO2 26 22 - 30 mmol/L INTERFACE SYSTEM 11/26/2005 4:00 PM CDT Harshad Heller MD CHEMISTRY ORDERABLES Final Resu lt Performing Organization Address [facility] Phone Number INTERFACE SYSTEM Refer to clinic/hospital department * (ABNORMAL) BLOOD GAS ARTERIAL (11/26/2005 1:03 PM CDT) PH ARTERIAL 7.43 7.35 - 7.45 INTERFACE SYSTEM PCO2 ARTERIAL 40 35 - 48 mm Hg INTERFACE SYSTEM PO2 ARTERIAL 72(L) 83 - 108 mm Hg INTERFACE SYSTEM SO2 ABG 98 95 - 99 % INTERFACE SYSTEM FO2HB ABG 97 94 - 98 % INTERFACE SYSTEM HCO3 ARTERIAL 26 22 - 26 mmol/L INTERFACE SYSTEM BASE EXCESS ABG 1.8 -2.0 - 3.0 mmol/L INTERFACE SYSTEM O2 CONC ARTERIAL 40 INTERFACE SYSTEM 11/26/2005 1:03 PM CDT Harshad Heller MD ABG ORDERABLES Final Result Performing Organization Address [facility] Phone Number INTERFACE SYSTEM Refer to clinic/hospital department * LACTIC ACID (11/26/2005 1:01 PM CDT) LACTIC ACID 1.4 0.5 - 2.2 mmol/L INTERFACE SYSTEM 11/26/2005 1:01 PM CDT Harshad Heller MD CHEMISTRY ORDERABLES Final Resu lt Performing Organization Address [facility] Phone Number INTERFACE SYSTEM Refer to clinic/hospital department * (ABNORMAL) CALCIUM IONIZED (11/26/2005 1:01 PM CDT) CALCIUM IONIZED 4.32(L) 4.76 - 5.16 mg/dL INTERFACE SYSTEM 11/26/2005 1:01 PM CDT Harshad Heller MD CHEMISTRY ORDERABLES Final Resu lt Performing Organization Address [facility] Phone Number INTERFACE SYSTEM Refer to clinic/hospital department * (ABNORMAL) PHOSPHORUS (11/26/2005 1:00 PM CDT) PHOSPHORUS 1.5(L) 2.5 - 4.5 mg/dL INTERFACE SYSTEM 11/26/2005 1:00 PM CDT Harshad Heller MD CHEMISTRY ORDERABLES Final Resu lt Performing Organization Address [facility] Phone Number INTERFACE SYSTEM Refer to clinic/hospital department * MAGNESIUM LEVEL (11/26/2005 1:00 PM CDT) MAGNESIUM 1.5 1.5 - 2.5 mg/dL INTERFACE SYSTEM 11/26/2005 1:00 PM CDT Harshad Heller MD CHEMISTRY ORDERABLES Final Resu lt Performing Organization Address [facility] Phone Number INTERFACE SYSTEM Refer to clinic/hospital department * (ABNORMAL) BASIC METABOLIC PANEL (11/26/2005 1:00 PM CDT) GLUCOSE 117(H) 65 - 99 mg/dL INTERFACE SYSTEM CREATININE 0.8 0.5 - 1.3 mg/dL INTERFACE SYSTEM CALCIUM 6.6(L) 8.6 - 10.2 mg/dL INTERFACE SYSTEM BUN 18 6 - 20 mg/dL INTERFACE SYSTEM SODIUM 131(L) 135 - 145 mmol/L INTERFACE SYSTEM POTASSIUM 4.2 3.5 - 4.9 mmol/L INTERFACE SYSTEM CHLORIDE 104 96 - 108 mmol/L INTERFACE SYSTEM CO2 25 22 - 30 mmol/L INTERFACE SYSTEM 11/26/2005 1:00 PM CDT Harshad Heller MD CHEMISTRY ORDERABLES Final Resu lt Performing Organization Address [facility] Phone Number INTERFACE SYSTEM Refer to clinic/hospital department * (ABNORMAL) CBC WITH DIFFERENTIAL (11/26/2005 1:00 PM CDT) NEUTROPHIL ABSOLUTE 2.44 1.90 - 7.00 K/uL INTERFACE SYSTEM LYMPHOCYTE ABSOLUTE 0.70 0.70 - 4.50 K/uL INTERFACE SYSTEM MONOCYTE ABSOLUTE 0.37 0.10 - 1.30 K/uL INTERFACE SYSTEM EOSINOPHIL ABSOLUTE 0.04 0.00 - 0.70 K/uL INTERFACE SYSTEM BASOPHILS ABSOLUTE 0.00 0.00 - 0.20 K/uL INTERFACE SYSTEM NEUTROPHILS, SEG 37(L) 45 - 70 % INT ERFACE SYSTEM BANDS 29(H) 0 - 5 % INTERFACE SYSTEM LYMPHOCYTES 19 16 - 45 % INTERFAC E SYSTEM MONOCYTES 10 3 - 13 % INTERFACE SYSTEM EOSINOPHILS 1 0 - 7 % INTERFAC E SYSTEM BASOPHILS 0 0 - 2 % INTERFACE SYSTEM METAMYELOCYTE 3(H) <=0 % INTERF CINDY SYSTEM MYELOCYTES 1(H) <=0 % INTERFACE SYSTEM PLATELET EST. Consistent w/ count Normal INTERFACE SYSTEM ANISOCYTOSIS Slight INTERFA CE SYSTEM 11/26/2005 1:00 PM CDT us Harshad Heller MD HEMATOLOGY ORDERABLES Final Res ult INTERFACE SYSTEM Refer to clinic/hospital department * (ABNORMAL) CBC WITH DIFFERENTIAL (11/26/2005 1:00 PM CDT) Pathologist [facility] WBC 3.7(L) 4.0 - 9.8 K/uL INTERFACE SYSTEM RBC 3.15(L) 4.50 - 5.40 M/uL INTERFACE SYSTEM HEMOGLOBIN 10.1(L) 13.6 - 16.5 g/dL INTERFACE SYSTEM HEMATOCRIT 29.2(L) 40.0 - 48.0 % INTERFACE SYSTEM MCV 92.7 82.0 - 99.0 fL INTERFACE SYSTEM MCH 32.1 27.2 - 32.6 pg INTERFACE SYSTEM MCHC 34.6 31.5 - 35.5 % INTERFACE SYSTEM RDW 13.0 11.5 - 14.5 % INTERFACE SYSTEM RDW-STDEV 44.0 37.1 - 48.7 fL INTERFACE SYSTEM PLATELETS 91(L) 140 - 350 K/uL INTERFACE SYSTEM Comment:Persistent abnormal result MPV 10.0 9.3 - 12.4 fL INTERFACE SYSTEM 11/26/2005 1:00 PM CDT us Harshad Heller MD HEMATOLOGY ORDERABLES Final Res ult Performing Organization Address [facility] de Phone Number INTERFACE SYSTEM Refer to clinic/hospital department * (ABNORMAL) PT AND APTT (11/26/2005 1:00 PM CDT) PROTIME 20.3(H) 12.7 - 15.1 Seconds INTERFACE SYSTEM INR 1.6(H) 0.9 - 1.1 INTERFACE SYSTEM Comment: INR Therapeutic Range: Adult: 2.0 - 3.0 for pulmonary embolism or prophylaxis against venous thrombosis or systemic embolization. 2.0 - 3.0 for patients with tissue heart valves. ?? 2.5 - 3.5 for patients with mechanical heart valves or post MD. Pediatric ??(12 years and under): 1.5 - 3.0 Although the target range in children is not well established , INR values of 1.5 - 3.0 are recommended for most patients. Higher values have been used in children with prosthetic cardiac valves and hereditary clotting disorders. (<3 days) therapeutic ranges have not been established. PTT 39.1(H) 24.4 - 36.4 Seconds INTERFACE SYSTEM Comment: PTT Therapeutic Range: Heparin Level ? PTT (seconds) <0.10 units/mL ? <53 0.10 - 0.30 units/mL ? 53 - 67 0.30 - 0.70 units/mL* ?67 - 95* 0.70 - 1.00 units/mL ?95 - 116 *corresponds to therapeutic range for unfractionated heparin ?? 11/26/2005 1:00 PM CDT us Harshad Heller MD HEMATOLOGY ORDERABLES Final Res ult Performing Organization Address City/[facility]/ZIP Co de Phone Number INTERFACE SYSTEM Refer to clinic/hospital department * (ABNORMAL) CBC WITH DIFFERENTIAL (11/26/2005 4:30 AM CDT) Pathologist [facility] NEUTROPHIL ABSOLUTE 2.96 1.90 - 7.00 K/uL INTERFACE SYSTEM LYMPHOCYTE ABSOLUTE 0.53(L) 0.70 - 4.50 K/uL INTERFACE SYSTEM MONOCYTE ABSOLUTE 0.27 0.10 - 1.30 K/uL INTERFACE SYSTEM EOSINOPHIL ABSOLUTE 0.00 0.00 - 0.70 K/uL INTERFACE SYSTEM BASOPHILS ABSOLUTE 0.04 0.00 - 0.20 K/uL INTERFACE SYSTEM NEUTROPHILS, SEG 49 45 - 70 % INT ERFACE SYSTEM BANDS 29(H) 0 - 5 % INTERFACE SYSTEM LYMPHOCYTES 14(L) 16 - 45 % INTERFAC E SYSTEM MONOCYTES 7 3 - 13 % INTERFACE SYSTEM EOSINOPHILS 0 0 - 7 % INTERFAC E SYSTEM BASOPHILS 1 0 - 2 % INTERFACE SYSTEM PLATELET EST. Consistent w/ count Normal INTERFACE SYSTEM ANISOCYTOSIS Slight INTERFA CE SYSTEM REVIEWED ON SMEAR Plt OK by Smear Rev. INTERFACE SYSTEM 11/26/2005 4:30 AM CDT Wicho Gomez MD HEMATOLOGY ORDERABLES Final R esult INTERFACE SYSTEM Refer to clinic/hospital department * (ABNORMAL) CBC WITH DIFFERENTIAL (11/26/2005 4:30 AM CDT) [facility] WBC 3.8(L) 4.0 - 9.8 K/uL INTERFACE SYSTEM RBC 3.33(L) 4.50 - 5.40 M/uL INTERFACE SYSTEM HEMOGLOBIN 10.5(L) 13.6 - 16.5 g/dL INTERFACE SYSTEM HEMATOCRIT 30.6(L) 40.0 - 48.0 % INTERFACE SYSTEM MCV 91.9 82.0 - 99.0 fL INTERFACE SYSTEM MCH 31.5 27.2 - 32.6 pg INTERFACE SYSTEM MCHC 34.3 31.5 - 35.5 % INTERFACE SYSTEM RDW 12.8 11.5 - 14.5 % INTERFACE SYSTEM RDW-STDEV 43.3 37.1 - 48.7 fL INTERFACE SYSTEM PLATELETS 81(L) 140 - 350 K/uL INTERFACE SYSTEM MPV 9.7 9.3 - 12.4 fL INTERFACE SYSTEM 11/26/2005 4:30 AM CDT us Wicho Gomez MD HEMATOLOGY ORDERABLES Final R esult Performing Organization Address [facility] Phone Number INTERFACE SYSTEM Refer to clinic/hospital department * (ABNORMAL) BLOOD GAS ARTERIAL (11/26/2005 4:30 AM CDT) PH ARTERIAL 7.40 7.35 - 7.45 INTERFACE SYSTEM PCO2 ARTERIAL 43 35 - 48 mm Hg INTERFACE SYSTEM PO2 ARTERIAL 79(L) 83 - 108 mm Hg INTERFACE SYSTEM SO2 ABG 99 95 - 99 % INTERFACE SYSTEM FO2HB ABG 97 94 - 98 % INTERFACE SYSTEM HCO3 ARTERIAL 26 22 - 26 mmol/L INTERFACE SYSTEM BASE EXCESS ABG 0.9 -2.0 - 3.0 mmol/L INTERFACE SYSTEM O2 CONC ARTERIAL 40% INTERFACE SYSTEM 11/26/2005 4:30 AM CDT Wicho Gomez MD ABG ORDERABLES Final Result Performing Organization Address [facility] Phone Number INTERFACE SYSTEM Refer to clinic/hospital department * LACTIC ACID (11/26/2005 4:30 AM CDT) LACTIC ACID 1.4 0.5 - 2.2 mmol/L INTERFACE SYSTEM 11/26/2005 4:30 AM CDT us Wicho Gomez MD CHEMISTRY ORDERABLES Final Re sult Performing Organization Address [facility] Phone Number INTERFACE SYSTEM Refer to clinic/hospital department * (ABNORMAL) BLOOD GAS ARTERIAL (11/25/2005 1:30 PM CDT) PH ARTERIAL 7.35 7.35 - 7.45 INTERFACE SYSTEM PCO2 ARTERIAL 44 35 - 48 mm Hg INTERFACE SYSTEM PO2 ARTERIAL 144(H) 83 - 108 mm Hg INTERFACE SYSTEM SO2 ABG 99 95 - 99 % INTERFACE SYSTEM FO2HB ABG 98 94 - 98 % INTERFACE SYSTEM HCO3 ARTERIAL 24 22 - 26 mmol/L INTERFACE SYSTEM BASE EXCESS ABG -2.0 -2.0 - 3.0 mmol/L INTERFACE SYSTEM O2 CONC ARTERIAL 60% INTERFACE SYSTEM 11/25/2005 1:30 PM CDT Wicho Gomez MD ABG ORDERABLES Final Result Performing Organization Address [facility] Phone Number INTERFACE SYSTEM Refer to clinic/hospital department * LACTIC ACID (11/25/2005 12:30 PM CDT) LACTIC ACID 2.0 0.5 - 2.2 mmol/L INTERFACE SYSTEM LACTIC ACID - SEPSIS INDICATOR Sepsis Potential: Potential candidate for Sepsis Protocol. INTERFACE SYSTEM 11/25/2005 12:3 0 PM CDT Harshad Heller MD CHEMISTRY ORDERABLES Final Resu lt Performing Organization Address [facility] Phone Number INTERFACE SYSTEM Refer to clinic/hospital department * (ABNORMAL) BLOOD GAS ARTERIAL (11/25/2005 4:00 AM CDT) PH ARTERIAL 7.31(L) 7.35 - 7.45 INTERFACE SYSTEM PCO2 ARTERIAL 41 35 - 48 mm Hg INTERFACE SYSTEM PO2 ARTERIAL 55(L) 83 - 108 mm Hg INTERFACE SYSTEM SO2 ABG 90(L) 95 - 99 % INTERFACE SYSTEM FO2HB ABG 88(L) 94 - 98 % INTERFACE SYSTEM HCO3 ARTERIAL 20(L) 22 - 26 mmol/L INTERFACE SYSTEM BASE EXCESS ABG -5.7(L) -2.0 - 3.0 mmol/L INTERFACE SYSTEM O2 CONC ARTERIAL 50% INTERFACE SYSTEM 11/25/2005 4:00 AM CDT Wicho Gomez MD ABG ORDERABLES Final Result Performing Organization Address [facility] Phone Number INTERFACE SYSTEM Refer to clinic/hospital department * (ABNORMAL) CBC WITH DIFFERENTIAL (11/25/2005 4:00 AM CDT) NEUTROPHILS 83(H) 45 - 70 % INTERFAC E SYSTEM LYMPHOCYTES 8(L) 16 - 45 % INTERFAC E SYSTEM MONOCYTES 9 3 - 13 % INTERFACE SYSTEM EOSINOPHILS 0 0 - 7 % INTERFAC E SYSTEM BASOPHILS 0 0 - 2 % INTERFACE SYSTEM NEUTROPHIL ABSOLUTE 14.61(H) 1.90 - 7.00 K/uL INTERFACE SYSTEM LYMPHOCYTE ABSOLUTE 1.39 0.70 - 4.50 K/uL INTERFACE SYSTEM MONOCYTE ABSOLUTE 1.63(H) 0.10 - 1.30 K/uL INTERFACE SYSTEM EOSINOPHIL ABSOLUTE 0.01 0.00 - 0.70 K/uL INTERFACE SYSTEM BASOPHILS ABSOLUTE 0.03 0.00 - 0.20 K/uL INTERFACE SYSTEM 11/25/2005 4:00 AM CDT Wicho Gomez MD HEMATOLOGY ORDERABLES Final R esult INTERFACE SYSTEM Refer to clinic/hospital department * (ABNORMAL) CBC WITH DIFFERENTIAL (11/25/2005 4:00 AM CDT) WBC 17.7(H) 4.0 - 9.8 K/uL INTERFACE SYSTEM RBC 4.95 4.50 - 5.40 M/uL INTERFACE SYSTEM HEMOGLOBIN 15.9 13.6 - 16.5 g/dL INTERFACE SYSTEM HEMATOCRIT 45.3 40.0 - 48.0 % INTERFACE SYSTEM MCV 91.5 82.0 - 99.0 fL INTERFACE SYSTEM MCH 32.1 27.2 - 32.6 pg INTERFACE SYSTEM MCHC 35.1 31.5 - 35.5 % INTERFACE SYSTEM RDW 12.7 11.5 - 14.5 % INTERFACE SYSTEM RDW-STDEV 42.4 37.1 - 48.7 fL INTERFACE SYSTEM PLATELETS 135(L) 140 - 350 K/uL INTERFACE SYSTEM MPV 10.3 9.3 - 12.4 fL INTERFACE SYSTEM 11/25/2005 4:00 AM CDT Wicho Gomez MD HEMATOLOGY ORDERABLES Final R esult INTERFACE SYSTEM Refer to clinic/hospital department * (ABNORMAL) BASIC METABOLIC PANEL (11/25/2005 4:00 AM CDT) GLUCOSE 119(H) 65 - 99 mg/dL INTERFACE SYSTEM CREATININE 1.0 0.5 - 1.3 mg/dL INTERFACE SYSTEM CALCIUM 6.1(AA) 8.6 - 10.2 mg/dL INTERFACE SYSTEM Comment: Results called to yecenia at 11/25/2005 4:45 AM and read back verified. Persistent abnormal result BUN 19 6 - 20 mg/dL INTERFACE SYSTEM SODIUM 127(L) 135 - 145 mmol/L INTERFACE SYSTEM POTASSIUM 5.3(H) 3.5 - 4.9 mmol/L INTERFACE SYSTEM Comment:No significant hemol ysis CHLORIDE 101 96 - 108 mmol/L INTERFACE SYSTEM CO2 22 22 - 30 mmol/L INTERFACE SYSTEM 11/25/2005 4:00 AM CDT us Wicho Gomez MD CHEMISTRY ORDERABLES Final Re sult Performing Organization Address [facility] Phone Number INTERFACE SYSTEM Refer to clinic/hospital department * PHOSPHORUS (11/25/2005 4:00 AM CDT) PHOSPHORUS 2.9 2.5 - 4.5 mg/dL INTERFACE SYSTEM 11/25/2005 4:00 AM CDT us Wicho Gomez MD CHEMISTRY ORDERABLES Final Re sult Performing Organization Address [facility] Phone Number INTERFACE SYSTEM Refer to clinic/hospital department * (ABNORMAL) MAGNESIUM LEVEL (11/25/2005 4:00 AM CDT) MAGNESIUM 1.3(L) 1.5 - 2.5 mg/dL INTERFACE SYSTEM 11/25/2005 4:00 AM CDT us Wicho Gomez MD CHEMISTRY ORDERABLES Final Re sult Performing Organization Address [facility] Phone Number INTERFACE SYSTEM Refer to clinic/hospital department * (ABNORMAL) CALCIUM IONIZED (11/25/2005 4:00 AM CDT) CALCIUM IONIZED 4.08(L) 4.76 - 5.16 mg/dL INTERFACE SYSTEM 11/25/2005 4:00 AM CDT us Wicho Gomez MD CHEMISTRY ORDERABLES Final Re sult Performing Organization Address [facility] Phone Number INTERFACE SYSTEM Refer to clinic/hospital department * (ABNORMAL) CBC WITH DIFFERENTIAL (11/24/2005 6:00 PM CDT) NEUTROPHILS 86(H) 45 - 70 % INTERFAC E SYSTEM LYMPHOCYTES 7(L) 16 - 45 % INTERFAC E SYSTEM MONOCYTES 7 3 - 13 % INTERFACE SYSTEM EOSINOPHILS 0 0 - 7 % INTERFAC E SYSTEM BASOPHILS 0 0 - 2 % INTERFACE SYSTEM NEUTROPHIL ABSOLUTE 21.92(H) 1.90 - 7.00 K/uL INTERFACE SYSTEM LYMPHOCYTE ABSOLUTE 1.65 0.70 - 4.50 K/uL INTERFACE SYSTEM MONOCYTE ABSOLUTE 1.89(H) 0.10 - 1.30 K/uL INTERFACE SYSTEM EOSINOPHIL ABSOLUTE 0.02 0.00 - 0.70 K/uL INTERFACE SYSTEM BASOPHILS ABSOLUTE 0.04 0.00 - 0.20 K/uL INTERFACE SYSTEM 11/24/2005 6:00 PM CDT Wicho Gomez MD HEMATOLOGY ORDERABLES Final [employer] Performing Organization Address City/State/[facility] Co de Phone Number INTERFACE SYSTEM Refer to clinic/hospital department * (ABNORMAL) CBC WITH DIFFERENTIAL (11/24/2005 6:00 PM CDT) WBC 25.5(H) 4.0 - 9.8 K/uL INTERFACE SYSTEM RBC 5.51(H) 4.50 - 5.40 M/uL INTERFACE SYSTEM HEMOGLOBIN 17.8(H) 13.6 - 16.5 g/dL INTERFACE SYSTEM HEMATOCRIT 49.9(H) 40.0 - 48.0 % INTERFACE SYSTEM MCV 90.6 82.0 - 99.0 fL INTERFACE SYSTEM MCH 32.3 27.2 - 32.6 pg INTERFACE SYSTEM MCHC 35.7(H) 31.5 - 35.5 % INTERFACE SYSTEM RDW 12.6 11.5 - 14.5 % INTERFACE SYSTEM RDW-STDEV 41.3 37.1 - 48.7 fL INTERFACE SYSTEM PLATELETS 157 140 - 350 K/uL INTERFACE SYSTEM MPV 10.1 9.3 - 12.4 fL INTERFACE SYSTEM 11/24/2005 6:00 PM CDT Wicho Gomez MD HEMATOLOGY ORDERABLES Final R esult Performing Organization Address City/[facility] de Phone Number INTERFACE SYSTEM Refer to clinic/hospital department * (ABNORMAL) BASIC METABOLIC PANEL (11/24/2005 6:00 PM CDT) GLUCOSE 114(H) 65 - 99 mg/dL INTERFACE SYSTEM CREATININE 1.1 0.5 - 1.3 mg/dL INTERFACE SYSTEM BUN 16 6 - 20 mg/dL INTERFACE SYSTEM SODIUM 130(L) 135 - 145 mmol/L INTERFACE SYSTEM POTASSIUM 5.2(H) 3.5 - 4.9 mmol/L INTERFACE SYSTEM Comment:No significant hemol ysis CHLORIDE 99 96 - 108 mmol/L INTERFACE SYSTEM CO2 21(L) 22 - 30 mmol/L INTERFACE SYSTEM CALCIUM 6.4(AA) 8.6 - 10.2 mg/dL INTERFACE SYSTEM Comment: Verified by repeat analysis. Results called to Neda 11/24/2005 7:08 PM and read back verified. 11/24/2005 6:00 PM CDT Wicho Gomez MD CHEMISTRY ORDERABLES Final Re sult Performing Organization Address [facility] Phone Number INTERFACE SYSTEM Refer to clinic/hospital department * (ABNORMAL) BLOOD GAS ARTERIAL (11/24/2005 5:00 PM CDT) PH ARTERIAL 7.35 7.35 - 7.45 INTERFACE SYSTEM PCO2 ARTERIAL 40 35 - 48 mm Hg INTERFACE SYSTEM PO2 ARTERIAL 235(H) 83 - 108 mm Hg INTERFACE SYSTEM SO2 ABG 100(H) 95 - 99 % INTERFACE SYSTEM FO2HB ABG 98 94 - 98 % INTERFACE SYSTEM HCO3 ARTERIAL 21(L) 22 - 26 mmol/L INTERFACE SYSTEM BASE EXCESS ABG -4.2(L) -2.0 - 3.0 mmol/L INTERFACE SYSTEM O2 CONC ARTERIAL 80% INTERFACE SYSTEM 11/24/2005 5:00 PM CDT Wicho Gomez MD ABG ORDERABLES Final Result Performing Organization Address [facility] de Phone Number INTERFACE SYSTEM Refer to clinic/hospital department * ETHANOL LEVEL (11/24/2005 1:02 PM CDT) ETHANOL <10 mg/dL INTERFACE SYSTEM Comment: Reference Range: Less than 10 mg/dL 11/24/2005 1:02 PM CDT Wicoh Gomez MD CHEMISTRY ORDERABLES Final Re sult Performing Organization Address [facility] Phone Number INTERFACE SYSTEM Refer to clinic/hospital department * (ABNORMAL) BLOOD GAS ARTERIAL (11/24/2005 12:40 PM CDT) Pathologist [facility] PH ARTERIAL 7.21(L) 7.35 - 7.45 INTERFACE SYSTEM PCO2 ARTERIAL 62(H) 35 - 48 mm Hg INTERFACE SYSTEM PO2 ARTERIAL 167(H) 83 - 108 mm Hg INTERFACE SYSTEM SO2 ABG 99 95 - 99 % INTERFACE SYSTEM FO2HB ABG 97 94 - 98 % INTERFACE SYSTEM HCO3 ARTERIAL 24 22 - 26 mmol/L INTERFACE SYSTEM BASE EXCESS ABG -4.9(L) -2.0 - 3.0 mmol/L INTERFACE SYSTEM O2 CONC ARTERIAL 100% INTERFACE SYSTEM 11/24/2005 12:4 0 PM CDT Wicho Gomez MD ABG ORDERABLES Final Result Performing Organization Address [facility] Phone Number INTERFACE SYSTEM Refer to clinic/hospital department * (ABNORMAL) CARBOXYHEMOGLOBIN (11/24/2005 12:18 PM CDT) [facility] CARBOXYHEMOGLOBIN 4.0(H) 0.0 - 1.5 % of Hgb INTERFACE SYSTEM Comment: Carboxyhemoglobin levels that are equal to or greater than 20% of total h emoglobin are considered toxic. Result given to Juarez 11/24/2005 1:17 PM HEMOGLOBIN 15.2 13.6 - 16.5 g/dL INTERFACE SYSTEM 11/24/2005 12:1 8 PM CDT Wicho Gomez MD ABG ORDERABLES Final Result Performing Organization Address [facility] Phone Number INTERFACE SYSTEM Refer to clinic/hospital department * (ABNORMAL) CBC WITH DIFFERENTIAL (11/24/2005 12:18 PM CDT) [facility] NEUTROPHILS 90(H) 45 - 70 % INTERFAC E SYSTEM LYMPHOCYTES 6(L) 16 - 45 % INTERFAC E SYSTEM MONOCYTES 4 3 - 13 % INTERFACE SYSTEM EOSINOPHILS 0 0 - 7 % INTERFAC E SYSTEM BASOPHILS 0 0 - 2 % INTERFACE SYSTEM NEUTROPHIL ABSOLUTE 22.01(H) 1.90 - 7.00 K/uL INTERFACE SYSTEM LYMPHOCYTE ABSOLUTE 1.35 0.70 - 4.50 K/uL INTERFACE SYSTEM MONOCYTE ABSOLUTE 1.02 0.10 - 1.30 K/uL INTERFACE SYSTEM EOSINOPHIL ABSOLUTE 0.07 0.00 - 0.70 K/uL INTERFACE SYSTEM BASOPHILS ABSOLUTE 0.03 0.00 - 0.20 K/uL INTERFACE SYSTEM 11/24/2005 12:1 8 PM CDT Wicho Gomez MD HEMATOLOGY ORDERABLES Final R esult Performing Organization Address [facility] de Phone Number INTERFACE SYSTEM Refer to clinic/hospital department * (ABNORMAL) CBC WITH DIFFERENTIAL (11/24/2005 12:18 PM CDT) Pathologist [facility] WBC 24.5(H) 4.0 - 9.8 K/uL INTERFACE SYSTEM RBC 4.62 4.50 - 5.40 M/uL INTERFACE SYSTEM HEMOGLOBIN 14.9 13.6 - 16.5 g/dL INTERFACE SYSTEM HEMATOCRIT 41.7 40.0 - 48.0 % INTERFACE SYSTEM MCV 90.3 82.0 - 99.0 fL INTERFACE SYSTEM MCH 32.3 27.2 - 32.6 pg INTERFACE SYSTEM MCHC 35.7(H) 31.5 - 35.5 % INTERFACE SYSTEM RDW 12.4 11.5 - 14.5 % INTERFACE SYSTEM RDW-STDEV 40.4 37.1 - 48.7 fL INTERFACE SYSTEM PLATELETS 189 140 - 350 K/uL INTERFACE SYSTEM MPV 11.0 9.3 - 12.4 fL INTERFACE SYSTEM 11/24/2005 12:1 8 PM CDT Wicho Gomez MD HEMATOLOGY ORDERABLES Final R esult Performing Organization Address [facility] de Phone Number INTERFACE SYSTEM Refer to clinic/hospital department * (ABNORMAL) PT AND APTT (11/24/2005 12:18 PM CDT) PROTIME 16.0(H) 12.7 - 15.1 Seconds INTERFACE SYSTEM INR 1.2(H) 0.9 - 1.1 INTERFACE SYSTEM Comment: INR Therapeutic Range: Adult: 2.0 - 3.0 for pulmonary embolism or prophylaxis against venous thrombosis or systemic embolization. 2.0 - 3.0 for patients with tissue heart valves. ?? 2.5 - 3.5 for patients with mechanical heart valves or post MD. Pediatric ??(12 years and under): 1.5 - 3.0 Although the target range in children is not well established , INR values of 1.5 - 3.0 are recommended for most patients. Higher values have been used in children with prosthetic cardiac valves and hereditary clotting disorders. (<3 days) therapeutic ranges have not been established. PTT 29.0 24.4 - 36.4 Seconds INTERFACE SYSTEM Comment: PTT Therapeutic Range: Heparin Level ? PTT (seconds) <0.10 units/mL ? <53 0.10 - 0.30 units/mL ? 53 - 67 0.30 - 0.70 units/mL* ?67 - 95* 0.70 - 1.00 units/mL ?95 - 116 *corresponds to therapeutic range for unfractionated heparin ?? 11/24/2005 12:1 8 PM CDT Wicho Gomez MD HEMATOLOGY ORDERABLES Final R esult INTERFACE SYSTEM Refer to clinic/hospital department * (ABNORMAL) CALCIUM IONIZED (11/24/2005 12:18 PM CDT) CALCIUM IONIZED 3.92(L) 4.76 - 5.16 mg/dL INTERFACE SYSTEM 11/24/2005 12:1 8 PM CDT Wicho Gomez MD CHEMISTRY ORDERABLES Final Re sult INTERFACE SYSTEM Refer to clinic/hospital department * DRUG SCREEN, URINE (11/24/2005 12:06 PM CDT) COMMENT, TOXICOLOGY See Separate Comment INTERFACE SYSTEM Comment: Urine sample was not handled as a legal specimen and was received without a chain of custody. ??The result should be used only for medical purposes. False positive and erroneous results can occur due to cross-reacting sub stances and other factors. Depending on the clinical context, confirmation of all presumptive positive results by a more specific alternate method is recommended. ??A negative result indicates the analyte, if present, is below the screening threshold. Drug ? Ref. Range ?Screening Threshold Amphetamines ? Negative ?1000 ng/mL Barbituates ?Negative ? 200 ng/mL Benzodiazepines ?Negative ? 300 ng/mL Cannabinoids ? Negative ?50 ng/mL Cocaine Metabolites ?? Negative ? 300 ng/mL Opiates ? Negative ? 300 ng/mL Phencycldine ?Negative ?25 ng/mL The cut-off threshold, known cross-reactive compounds, drugs,and specificity information for each of the urine drugs of abuse are available on the [facility] Intranet at: [email or web address] Select: Drugs of Abuse ? [facility] To inquire about any potential cross-reactivity of a ?? specific drug not listed at this site, please contact the Chemistry Lab at . AMPHETAMINE QUAL, URINE Negative Negative INTERFACE SYSTEM BARBITURATE QUAL, URINE Negative Negative INTERFACE SYSTEM BENZODIAZEPINE QUAL, URINE Presumptive Positive Negative INTERFACE SYSTEM CANNABINOIDS QUAL, URINE Negative Negative INTERFACE SYSTEM COCAINE QUAL URINE Negative Negative INTERFACE SYSTEM OPIATE QUAL, URINE Presumptive Positive Negative INTERFACE SYSTEM PCP QUAL, URINE Negative Negative INTE RFACE SYSTEM 11/24/2005 12:0 6 PM CDT Wicho Gomez MD URINE ORDERABLES Final Result Performing Organization Address [facility] Phone Number INTERFACE SYSTEM Refer to clinic/hospital department * (ABNORMAL) URINALYSIS (11/24/2005 12:06 PM CDT) COLOR UA Yellow INTERFACE SYSTEM CLARITY UA Clear Clear INTERFACE SYSTEM SPECIFIC GRAVITY UA 1.025 1.001 - 1.035 INTERFACE SYSTEM PH UA 5.5 5.0 - 8.0 INTERFACE SYSTEM LEUKOCYTE ESTERASE UA Negative Negative INTERFACE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
--- OUTSIDE RECORDS SUMMARY | 2024-05-01 09:29 | XMS_ITS ---
Author Name Aamir Thakkar Address [address] [place] [address] Phone [phone] [facility] e, NA DOCUMENT DISCLAIMER Multiple document versions may exist, please be sure you review the latest version. The information in the [facility] Progress Note Document represents a providers documented clinical note containing certain health and medical information. It may not contain the complete medical history for the patient and should be independently verified. The represented time in the document is Eastern Time PROVIDER ROUNDING NOTE COMPREHENSIVE Patient:?Lencho?Olivia,?1950,?74y,?M Dialysis?Location:?[facility] Attending?Water Plumber:?Aamir?Bijan Service?Date:?04/19/2024 Service?Provider:?Aamir?Bijan,? I?met?face?to?face?with?the?patient?today. OVERVIEW The?patient?presented?with?ESRD?on?dialysis Primary?cause?of?renal?failure:?Type?2?diabetes?mellitus&#16 0;with?diabetic?chronic?kidney?disease Medications?and?labs?reviewed. [...] ??03/06/2024:?0.87 ??02/07/2024:?0.9 PHYSICAL?EXAM Exam?Performed.?Vital?Signs?Reviewed.?Lungs?-?Clear.?CV&#160 ;-?Blood?pressure?noted.?CV?-?RRR.?EXT?-?No?edema.?EXT?-?No?ulcers. DIAGNOSIS Chief?Complaint:?N18.6?End?stage?renal?disease Patient?data?updated?04/30/2024?at?6:45?PM Signed?By:?Bijan,?Aamir,???on?04/30/2024?6:46:07?PM END OF DOCUMENT
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
--- OUTSIDE RECORDS SUMMARY | 2024-05-01 09:29 | XMS_ITS | CONTINUITY OF CARE DOCUMENT ---
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 Dante Weaver DO Cardiomyopathy; nonischemic - EF 35% active Dante Weaver DO Atrial fibrillation; on Coumadin/Dr Lowe active Dante Weaver DO Anxiety -from PTSD active Dante Nguyen served in [place] CHF active Dante Weaver DO Chronic renal disease; CA active Dante morrissey DO Diabetes mellitus, oral medication active Dante Weaver DO Hypertension active Dante Weaver DO ENCOUNTERS Date Type Provider Location Encounter Diag nosis - In-person encounter Office Visit Dante Weaver DO [facility] Office Family History Coronary Heart Disease male < 55:Cardiomyopathy; nonischemic - EF 35%Atrial fibrillation; on Coumadin/Dr RangeltromAnxiety -from PTSDCHFChronic renal disease; CADiabetes mellitus, oral medicationHypertension VITAL SIGNS Date Observation Value Provider blood pressure, diastolic, second observa tion 94 mm[Hg] Kalie Kirk blood pressure, systolic, second observat ion 136 mm[Hg] Kalie Kirk blood pressure, diastolic 94 mm[Hg] Na shonna Kirk blood pressure, systolic 136 mm[Hg] Geovanna Kirk pulse rate 83 /min Kalie Kirk oxygen saturation, oximetry 98 % Kalie Kirk respiratory rate E&M 20 /min Kalie Kirk Body Mass Index (Ratio) 34.04 kg/m2 Miladys Kirk weight E&M 251 [lb_av] Kalie Kirk height E&M 72 [in_i] Kalie Nayloroney ALLERGIES No Known Drug Allergies HISTORY OF MEDICATION USE Medication Status Instructions Dates Provider Indications Com ments CALCITRIOL 0.25 MCG ORAL CAPSULE active daily Kalie Kirk ALLOPURINOL 300 MG ORAL TABLET active 1 daily Kalie Kirk LISINOPRIL 40 MG ORAL TABLET active ONE TAB. DAILY Kalie Kirk SIMVASTATIN 10 MG ORAL TABLET active ONE TAB. AT BEDTIME Kalie Kirk DOXAZOSIN MESYLATE 4 MG ORAL TABLET active 1 daily Kalie Yelena GLIMEPIRIDE 2 MG ORAL TABLET active 1 daily Kalie Yelena GEMFIBROZIL 600 MG ORAL TABLET active 2 times daily Kalie Yelena SOMA 350 MG ORAL TABLET active 1 three times daily Kalie Yelena ENDOCET 10-325 MG ORAL TABLET active as needed Kalie Kirk ALPRAZOLAM 0.5 MG ORAL TABLET active 1 tab four times daily Kalie Kirk METOPROLOL SUCCINATE ER 200 MG ORAL TABLET EXTENDED RELEASE 24 HOUR active one tab. daily Kalie Kirk WARFARIN SODIUM 1 MG ORAL TABLET active 7 mg daily Kalie Nayloroney SOCIAL HISTORY Date Observation Value Provider smoking history, tot al pack/year 49 Jo See social history E&M no alchohol n o street drugs 1 /2 ppd smoker P atient currently smokes every day. Smoking History: P atient currently smokes every day. P atient has been counseled to quit. Dante Weaver DO smoking/tobacco cess ation, patient education and counseling yes Kalie Nayloroney smoking, date started 1967 Estrellita alaniz Yelena cigarette use yes Kalie Nayloroney smoking status current every day smoker D ovidiocorine Weaver DO FAMILY HISTORY Family Member Condition Father Family History Coron jessica Heart Disease male < 55: INSURANCE PROVIDERS Payer name Policy type / Coverage type Lele hollis ID [facility] Medicaid 9 [id number] TREATMENT PLAN Date Name Performer Cardiology :partial nephrectomy to both R & L kidneys Dante Weaver DO Cardiology :from PTSD, served in [place] Dante Weaver DO Cardiology :comment only Dante Weaver DO HISTORY OF PROCEDURES Procedure Date Procedure Name Provider Procedure Notes S tatus ICM Interrogation, Remote (Prof) Dante Shermancock DO INTERROGATION EVAL REMOTE </30 D CV MNTR SYS completed ICM Interrogation, Remote (Tech) Dante Gooding DO INTERROGATION EVAL REMOTE </30 D TECH REVIEW completed ICM Interrogation, Remote (Prof) Dantecorine Shermancock DO INTERROGATION EVAL REMOTE </30 D CV MNTR SYS completed AICD Interrogation, Remote (Tech) Dante Gooding DO INTERROGATION REMOTE </90 D LIBRARY MANAGER REVIEW completed AICD Interrogation, Remote (Prof) Dante Gooding DO INTERROGATION EVAL REMOTE </90 D 1/2/> LD CVDFB completed ICM Interrogation, Remote (Prof) Dante Gooding DO INTERROGATION EVAL REMOTE </30 D CV MNTR SYS completed ICM Interrogation, Remote (Tech) Dante Gooding DO INTERROGATION EVAL REMOTE </30 D TECH REVIEW completed ICM Interrogation, Remote (Prof) Dante Gooding DO INTERROGATION EVAL REMOTE </30 D CV MNTR SYS completed ICM Interrogation, Remote (Tech) Dante Gooding DO INTERROGATION EVAL REMOTE </30 D TECH REVIEW completed SNOMED-CT: 151447334 Smoking Cessation Counseling Dante Weaver DO completed SNOMED-CT: 68264220 Physical Exam, Performed: Pulse Exam of Foot Dante Weaver DO completed EKG Dante Weaver DO completed SNOMED-CT: [id number] Current Medications Documented Dante Weaver DO completed
--- OUTSIDE RECORDS SUMMARY | 2024-05-01 09:29 | XMS_ITS | Encounter Summary ---
Author Organization [facility] Address [address] [place] [address] Care Team Providers Care Resource Recovery Engineer Name Role Phone Morgan Mercado MD Primary Care Provider [phone] Encounter Details Date Type Department Care Team (Late st Contact Info) Description 07/06/2006 Outpatient Historical [facility] [id number] [facility] [address] [place] [phone] Harshad Heller MD [address] [facility] [address] [facility] [address] Social History Tobacco Use Types Packs/Day Years Used Date Smoking Tobacco: Never Assessed Sex and Gender Information Value Date Recorded Sex Assigned at Not on file 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
--- OUTSIDE RECORDS SUMMARY | 2024-05-01 09:29 | XMS_ITS | Encounter Summary ---
Author Organization [facility] Address [address] [place] [address] Care Team Providers Care Microsoft Systems Engineer Name Role Phone Morgan Mercado MD Primary Care Provider [phone] Encounter Details Date Type Department Care Team (Late st Contact Info) Description 07/15/2006 Outpatient Historical [facility] [id number] [facility] [address] [place] [phone] Wicho Gomez MD [address] 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
--- OUTSIDE RECORDS SUMMARY | 2024-05-01 09:29 | XMS_ITS | Encounter Summary ---
Author Organization [facility] Address [address] [place] [address] Care Team Providers Care Junior Java Developer Name Role Phone Morgan Mercado MD Primary Care Provider [phone] Encounter Details Date Type Department Care Team (Late st Contact Info) Description 06/21/[address] [facility] [id number] [facility] [address] [place] [phone] Wicho Gomez MD [address] 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
--- OUTSIDE RECORDS SUMMARY | 2024-05-01 09:44 | XMS_ITS | Continuity of Care Document ---
Author Name [facility] Organization [facility] Care Team Providers Care Brazer Induction Name Role Phone [facility] Unavailable Unavailable Problems Combined list of problems from Department of Defense and [facility] facilities. It does not include entries that were removed or entered in error. Problem Status Onset Date Problem Type Date of Resolution Comments Source Positive ETT, normal heart cath Active 992 Condition [facility] Peptic Ulcer Active 981 Condition [facility] abnormal ct scan of abdomen Active Condition May 02, 2014 Entered By: FABY MONTANA Comment: 09/14/13 irregularity of the right kidneyFe2014 Entered By: FABY MONTANA Comment: 05/02/14 no changes [facility] AF- Atrial Fibrillation (SCT 13495506) Active Condition [facility] Anxiety (SCT 65941857) Active Condition [facility] Arthritis, Gouty Active Condition [facility] Santos Active Condition July 26 08 Entered By: NICKIE PEDROZA Comment: SUSTAINED OVER 75% OF BODY IN 2005 [facility] Cardiomyopathy (SCT 01915290) Active Condition [facility] Chronic kidney disease (SNOMED CT 721469784) Active Condition [facility] Chronic low back pain Active Condition Jan 18, 2001 Entered By: REID GALINDO Comment: sp lumbar disc surgery L3/4- L4/5 [facility] Chronic low back pain (SNOMED CT 033921900) Active Condition Jun Entered By: YOU DAO Comment: s/p laminectomy [facility] Clear cell carcinoma of kidney Active Condition [facility] COPD - Chronic Obstructive Pulmonary Disease (SCT 26227362) Active Condition [facility] Dependence on renal dialysis Active Condition [facility] Depression (SCT 46287101) Active Condition [facility] Diabetes Mellitus Type 2 (SCT 89317789) Active Condition [facility] End-stage renal disease Active Condition [facility] Gout Active Condition [facility] History of partial nephrectomy Active Condition [facility] HTN Active Condition [facility] HTN - Hypertension (SCT 97067909) Active Condition [facility] Hyperlipidemia (SCT 80049346) Active Condition [facility] Hyperparathyroidism due to renal insufficiency Active Condition [facility] Lesion of liver Active Condition [facility] Liver mass Active Condition [facility] Low Back Pain (SCT 770793759) Active Condition [facility] Malignant Melanoma of Skin (SCT 37628299) Active Condition [facility] Personal History of Alcoholism (ICD-9-CM V11.3) Active Condition [facility] Posttraumatic stress disorder Active Condition [facility] Renal Cancer ([facility] 794085924) Active Condition [facility] Renal cell carcinoma Active Condition [facility] Renal mass (SNOMED CT 065805664) Active Condition [facility] Scarring (ICD-9-CM 709.2) Active Condition Jan 27, 2007 Entered By: OSMEL PERLA Comment: 04/29 70% OF BODY [facility] Generalized Anxiety Disorder Inactive Condition 12/31/2020 [facility] Hyperlipidemia (SNOMED CT 11184877) Inactive Condition 12/26/2018 Jul 14, 1995 Entered By: YOU DAO Comment: High chol & triglyc [facility] Hypertension Inactive Condition 12/26/2018 [facility] Renal Impairment (SCT 409255574) Inactive Condition 02/09/2023 [facility] Tobacco user (SNOMED CT 862594375) Inactive Condition 12/31/2020 [facility] Type 2 diabetes mellitus (SNOMED CT 55920245) Inactive Condition 12/26/2018 [facility] Diagnosis: ICD-10-CM H47.20 Unspecified optic atrophy Active Diagnosis [facility] Diagnosis: ICD-10-CM N18.6 End stage renal disease Active Diagnosis [facility] Diagnosis: ICD-10-CM Z72.0 Tobacco use Active Diagnosis [facility] Diagnosis: ICD-10-CM E11.9 Type 2 diabetes mellitus without complications Active Diagnosis [facility] Diagnosis: ICD-10-CM K08.109 Complete loss of teeth, unspecified cause, unspecified class Active Diagnosis [facility] Diagnosis: ICD-10-CM Z13.5 Encounter for screening for eye and ear disorders Active Diagnosis [facility] Diagnosis: ICD-10-CM F41.9 Anxiety disorder, unspecified Active Diagnosis [facility] Diagnosis: ICD-10-CM H53.9 Unspecified visual disturbance Active Diagnosis [facility] Diagnosis: ICD-10-CM F43.10 Post-traumatic stress disorder, unspecified Active Diagnosis [facility] Diagnosis: ICD-10-CM C64.2 Malignant neoplasm of left kidney, except renal pelvis Active Diagnosis [facility] Diagnosis: ICD-10-CM E16.2 Hypoglycemia, unspecified Active Diagnosis [facility] Medications Combined list of outpatient medications from Department of Defense and [facility] facilities.Medications provided include 1) outpatient medications from the last 15 months, and 2) patient-reported medications. Medication Details Route Status Patient Instructions Prescription Expires Prescription Number Last Dispense Date Ordering Provider Order Date Order Qty Source ALPRAZOLAM 1MG TAB TAKE ONE TABLET BY MOUTH TWICE A DAY ORAL ACTIVE ERICA CUETO 2022 [facility] CARISOPRODO L 350MG TAB TAKE ONE TABLET BY MOUTH THREE TIMES A DAY ORAL ACTIVE DEISY CRESPO 2013 [facility] DOXAZOSIN MESYLATE 8MG TAB TAKE ONE-HALF TABLET BY MOUTH AT BEDTIME ORAL ACTIVE DEISY CR[place] MARY Mederos 2013 [facility] GLIMEPIRIDE 4MG TAB TAKE ONE TABLET BY MOUTH ONCE A DAY ORAL ACTIVE LEVI RODRÍGUEZ 2019 [facility] LISINOPRIL 40MG TAB TAKE ONE-HALF TABLET BY MOUTH ONCE A DAY ORAL ACTIVE DEISY [place] MARY B 2013 [facility] METOPROLOL SUCCINATE 200MG TAB,SA TAKE ONE-HALF TABLET BY MOUTH ONCE A DAY ORAL ACTIVE ZAKDEISY HERNANDEZ B 2013 [facility] NICOTINE 14MG/24HRS PATCH APPLY 1 PATCH TO SKIN SITE EVERY MORNING FOR TOBACCO CESSATIO N REMOVE OLD PATCH BEFORE APPLYING NEW ONE. ROTATE SITES. DO NOT SMOKE WHILE WEARING PATCH. TRANSD ERMAL ACTIVE 10/26/2024 [id number] 4 Gaby GARCIA E 2023 28 [facility] NICOTINE 14MG/24HRS PATCH APPLY 1 PATCH TO SKIN SITE EVERY MORNING REMOVE OLD PATCH BEFORE APPLYING NEW ONE. ROTATE SITES. DO NOT SMOKE WHILE WEARING PATCH. TRANSD ERMAL DISCONT INUED 11/02/2023 [id number] 4 Gaby GARCIA E 2023 42 [facility] NICOTINE POLACRILEX 2MG MINI LOZENGE DISSOLVE 1 LOZENGE BY MOUTH EVERY 4 HOURS NEEDED FOR TOBACCO CESSATIO N DO NOT SMOKE WHILE USING THIS MEDICATI ON ORAL ACTIVE 10/26/2024 [id number] 4 Gaby GARCIA E 2023 162 [facility] NICOTINE POLACRILEX 2MG MINI LOZENGE DISSOLVE 1 LOZENGE BY MOUTH EVERY TWO HOURS NEEDED .DO NOT SMOKE WHILE USING THIS MEDICATI ON. ORAL 10/21/2023 [id number] 4 Gaby GARCIA E 2023 162 [facility] OXYCODONE HCL 5MG/ACETAMI NOPHEN 325MG TAB TAKE ONE TABLET BY MOUTH EVERY 6 HOURS NEEDED ORAL ACTIVE LULI MONTANA [facility] SIMVA[facility] 40MG TAB TAKE ONE-HALF TABLET BY MOUTH EVERY EVENING ORAL ACTIVE LEVI RODRÍGUEZ 2019 [facility] VITAMIN B COMPLEX CAP TAKE 1 CAPSULE BY MOUTH ONCE A DAY ORAL ACTIVE DEISY CRESPO 2013 [facility] Allergies, Adverse Reactions, Alerts Combined list of allergies from Department of Defense and [facility] facilities. It does not include entries that were removed or entered in error. Substance Category Reaction Severity Reaction type Status Date Reported Comments Source CODEINE Propensity to adverse reactions to drug (finding) Swelling, Itching active 9 [facility] Immunizations Combined list of available immunizations from the Department of Defense and Veterans Affairs facilities. Immunization Series Date Given Administered By Site Reaction Lot Number CVX Code Drug Financial Recruiter Status Comments Source INFLUENZA, HIGH-DOSE, QUADRIVALENT 2019 197 complet ed [facility] INFLUENZA, UNSPECIFIED FORMULATION 2015 88 complet ed [facility] INFLUENZA, UNSPECIFIED FORMULATION 2014 88 complet ed [facility] INFLUENZA, UNSPECIFIED FORMULATION 2013 [facility] 121 complet ed [facility] INFLUENZA, UNSPECIFIED FORMULATION 2012 88 complet [facility] N PNEUMOCOCCAL POLYSACCHARID E PPV23 1 2012 33 complet [facility] DIVISIO N INFLUENZA, UNSPECIFIED FORMULATION 2008 88 complet [facility] DIVISIO N INFLUENZA, UNSPECIFIED FORMULATION 2008 88 complet [facility] N TDAP 2005 115 complet ed [facility] INFLUENZA, UNSPECIFIED FORMULATION 2001 88 complet ed [facility] Results Combined list of [...] Feb 09, 2023 10:29 AM Reporting Lab: [facility] [address] [place] [phone] Performing Lab: [address] [facility] BARBITUR ATES GC/MS PENTOBARBI DAGOBERTO [PRESENCE] IN URINE NEG 02/09 Specimen Type: URINE Comment: DETECTION LIMIT: 100 ng/mL Ordering Provider: SINDHU PEDROZA Report Released Date/Time: Feb 09, 2023 10:29 AM Reporting Lab: [facility] [address] [place] [phone] Performing Lab: [facility] [address] [place] [address] [facility] BARBITUR ATES GC/MS SECOBARBIT AL [MASS/VOLU ME] IN SERUM OR PLASMA NEG 02/09 Specimen Type: URINE Comment: DETECTION LIMIT: 100 ng/mL Ordering Provider: SINDHU PEDROZA Report Released Date/Time: Feb 09, 2023 10:29 AM Reporting Lab: [facility] [address] [place] [phone] Performing Lab: [address] [facility] BARBITUR ATES GC/MS PHENOBARBI DAGOBERTO [MASS/VOLU ME] IN URINE NEG 02/09 Specimen Type: URINE Comment: DETECTION LIMIT: 100 ng/mL Ordering Provider: SINDHU PEDROZA Report Released Date/Time: Feb 09, 2023 10:29 AM Reporting Lab: [facility] [address] [place], [place] [phone] Performing Lab: [address] [facility] ATES GC/MS AMOBARBITA L [PRESENCE] IN SPECIMEN NEG 02/09 Specimen Type: URINE Comment: DETECTION LIMIT: 100 ng/mL Ordering Provider: SINDHU PEDROZA Report Released Date/Time: Feb 09, 2023 10:29 AM Reporting Lab: [address] [address] Performing Lab: [address] [facility] BARBITUR ATES GC/MS BARBITURAT E SCREEN PRESENT [IDENTIFIE R] IN URINE NEGATIVE 02/09 Specimen Type: URINE Comment: DETECTION LIMIT: 100 ng/mL Ordering Provider: SINDHU PEDROZA Report Released Date/Time: Feb 09, 2023 10:29 AM Reporting Lab: [address] [address] Performing Lab: [address] [facility] ATES GC/MS BARBITUATE S COMMENTS comment 02/09 Specimen Type: URINE Comment: DETECTION LIMIT: 100 ng/mL Ordering Provider: SINDHU PEDROZA Report Released Date/Time: Feb 09, 2023 10:29 AM Reporting Lab: [address] [address] Performing Lab: [address] [facility] METHADON E PANEL (STL) ETHANOL [MASS/VOLU ME] IN URINE Negative mg/dL 0 - 20 02/09 Specimen Type: URINE Comment: The cut-off value for this test was laboratory developed and its performance characteris tics confirmed by the [facility] laboratory thru method comparison with reference laboratory and medication chart review. The laboratory is regulated under CLIA as qualified to perform high-comple xity testing. This test is used for clinical purposes in conjunction with other laboratory tests. Ordering Provider: SINDHU PEDROZA Report Released Date/Time: Feb 09, 2023 10:29 AM Reporting Lab: [address] [address] Performing Lab: [address] [address] [facility] PANEL (STL) AMPHETAMIN E [PRESENCE] IN URINE BY SCREEN METHOD Negative ng/mL 02/09 Specimen Type: URINE Comment: The cut-off value for this test was laboratory developed and its performance characteris tics confirmed by the [facility] laboratory thru method comparison with reference laboratory and medication chart review. The laboratory is regulated under CLIA as qualified to perform high-comple xity testing. This test is used for clinical purposes in conjunction with other laboratory tests. Ordering Provider: SINDHU PEDROZA Report Released Date/Time: Feb 09, 2023 10:29 AM Reporting Lab: [address] [address] Performing Lab: [address] [address] [facility] PANEL (STL) BENZOYLECG ONINE [PRESENCE] IN URINE Negative ng/mL 02/09 Specimen Type: URINE Comment: The cut-off value for this test was laboratory developed and its performance characteris tics confirmed by the [facility] laboratory thru method comparison with reference laboratory and medication chart review. The laboratory is regulated under CLIA as qualified to perform high-comple xity testing. This test is used for clinical purposes in conjunction with other laboratory tests. Ordering Provider: SINDHU PEDROZA Report Released Date/Time: Feb 09, 2023 10:29 AM Reporting Lab: [address] [address] Performing Lab: [address] [address] [facility] PANEL (STL) BENZODIAZE PINES [PRESENCE] IN URINE BY SCREEN METHOD 487.1000 -POSng/m L 02/09 Specimen Type: URINE Comment: The cut-off value for this test was laboratory developed and its performance characteris tics confirmed by the [facility] laboratory thru method comparison with reference laboratory and medication chart review. The laboratory is regulated under CLIA as qualified to perform high-comple xity testing. This test is used for clinical purposes in conjunction with other laboratory tests. Ordering Provider: SINDHU PEDROZA Report Released Date/Time: Feb 09, 2023 10:29 AM Reporting Lab: [facility] [address] [facility] [address] Performing Lab: [place] [address] [facility] [address] [facility] E PANEL (STL) CANNABINOI DS [PRESENCE] IN URINE BY SCREEN METHOD Negative ng/mL 02/09 Specimen Type: URINE Comment: The cut-off value for this test was laboratory developed and its performance characteris tics confirmed by the [facility] laboratory thru method comparison with reference laboratory and medication chart review. The laboratory is regulated under CLIA as qualified to perform high-comple xity testing. This test is used for clinical purposes in conjunction with other laboratory tests. Ordering Provider: SINDHU PEDROZA Report Released Date/Time: Feb 09, 2023 10:29 AM Reporting Lab: [facility] [address] [address] Performing Lab: [place] [address] [facility] [address] [facility] METHADON E PANEL (STL) METHADONE [PRESENCE] IN URINE Negative ng/mL 02/09 Specimen Type: URINE Comment: The cut-off value for this test was laboratory developed and its performance characteris tics confirmed by the [facility] laboratory thru method comparison with reference laboratory and medication chart review. The laboratory is regulated under CLIA as qualified to perform high-comple xity testing. This test is used for clinical purposes in conjunction with other laboratory tests. Ordering Provider: SINDHU PEDROZA Report Released Date/Time: Feb 09, 2023 10:29 AM Reporting Lab: [facility] [address] [facility] [address] Performing Lab: [place] [address] [facility] [address] [facility] E PANEL (STL) OPIATES [PRESENCE] IN URINE BY SCREEN METHOD Negative ng/mL 02/09 Specimen Type: URINE Comment: The cut-off value for this test was laboratory developed and its performance characteris tics confirmed by the [facility] laboratory thru method comparison with reference laboratory and medication chart review. The laboratory is regulated under CLIA as qualified to perform high-comple xity testing. This test is used for clinical purposes in conjunction with other laboratory tests. Ordering Provider: SINDHU PEDROZA Report Released Date/Time: Feb 09, 2023 10:29 AM Reporting Lab: [address] [address] Performing Lab: [address] [address] [facility] PANEL (STL) CREATININE [MASS/VOLU ME] IN URINE 77.6 mg/dL 63 - 166 02/09 Specimen Type: URINE Comment: The cut-off value for this test was laboratory developed and its performance characteris tics confirmed by the [facility] laboratory thru method comparison with reference laboratory and medication chart review. The laboratory is regulated under CLIA as qualified to perform high-comple xity testing. This test is used for clinical purposes in conjunction with other laboratory tests. Ordering Provider: SINDHU PEDROZA Report Released Date/Time: Feb 09, 2023 10:29 AM Reporting Lab: [address] [address] Performing Lab: [place] [address] [facility] [address] [facility] PANEL (STL) OXYCODONE CUTOFF [MASS/VOLU ME] IN URINE FOR SCREEN METHOD 661-POSn g/mL 02/09 Specimen Type: URINE Comment: The cut-off value for this test was laboratory developed and its performance characteris tics confirmed by the [facility] laboratory thru method comparison with reference laboratory and medication chart review. The laboratory is regulated under CLIA as qualified to perform high-comple xity testing. This test is used for clinical purposes in conjunction with other laboratory tests. Ordering Provider: SINDHU PEDROZA Report Released Date/Time: Feb 09, 2023 10:29 AM Reporting Lab: [address] [address] Performing Lab: [address] [address] [facility] PANEL (STL) BUPRENORPH INE [PRESENCE] IN URINE Negative 02/09 Specimen Type: URINE Comment: The cut-off value for this test was laboratory developed and its performance characteris tics confirmed by the [facility] laboratory thru method comparison with reference laboratory and medication chart review. The laboratory is regulated under CLIA as qualified to perform high-comple xity testing. This test is used for clinical purposes in conjunction with other laboratory tests. Ordering Provider: SINDHU PEDROZA Report Released Date/Time: Feb 09, 2023 10:29 AM Reporting Lab: [address] [address] Performing Lab: [address] [address] [facility] PANEL (STL) FENTANYL [PRESENCE] IN URINE Negative ng/mL 02/09 Specimen Type: URINE Comment: The cut-off value for this test was laboratory developed and its performance characteris tics confirmed by the [facility] laboratory thru method comparison with reference laboratory and medication chart review. The laboratory is regulated under CLIA as qualified to perform high-comple xity testing. This test is used for clinical purposes in conjunction with other laboratory tests. Ordering Provider: SINDHU PEDROZA Report Released Date/Time: Feb 09, 2023 10:29 AM Reporting Lab: [address] [address] Performing Lab: [address] [address] [facility] URINALYS IS (STL) COLOR OF URINE Light-Ye llow 02/09 Specimen Type: URINE No comment entered. Ordering Provider: SINDHU PEDROZA Report Released Date/Time: Feb 09, 2023 10:29 AM Reporting Lab: [address] [address] Performing Lab: [address] [phone] [place] [address] URINALYS IS (STL) BILIRUBIN. TOTAL [PRESENCE] IN URINE BY TEST STRIP Negative mg/dL 02/09 Specimen Type: URINE No comment entered. Ordering Provider: SINDHU PEDROZA Report Released Date/Time: Feb 09, 2023 10:29 AM Reporting Lab: [address] [address] Performing Lab: [address] [phone] URINALYS IS (STL) PH OF URINE BY TEST STRIP 7.5 5.0 - 8.0 02/09 Specimen Type: URINE No comment entered. Ordering Provider: SINDHU PEDROZA Report Released Date/Time: Feb 09, 2023 10:29 AM Reporting Lab: [address] [address] Performing Lab: [phone] [place] [address] URINALYS IS (STL) LEUKOCYTES [#/AREA] IN URINE SEDIMENT BY MICROSCOPY HIGH POWER FIELD <1/[HPF] 0 - 5 02/09 Specimen Type: URINE No comment entered. Ordering Provider: SINDHU PEDROZA Report Released Date/Time: Feb 09, 2023 10:29 AM Reporting Lab: [address] [address] Performing Lab: [address] [address] [facility] URINALYS IS (STL) ERYTHROCYT ES [#/VOLUME] IN URINE SEDIMENT BY MICROSCOPY HIGH POWER FIELD <1/[HPF] 0 - 5 02/09 Specimen Type: URINE No comment entered. Ordering Provider: SINDHU PEDROZA Report Released Date/Time: Feb 09, 2023 10:29 AM Reporting Lab: [facility] [address] [place] [phone] Performing Lab: [facility] [address] [facility] [address] [address] [facility] URINALYS IS (STL) APPEARANCE OF URINE Clear 02/09 Specimen Type: URINE No comment entered. Ordering Provider: SINDHU PEDROZA Report Released Date/Time: Feb 09, 2023 10:29 AM Reporting Lab: [place] [phone] Performing Lab: [address] [address] [facility] URINALYS IS (STL) NITRITE [PRESENCE] IN URINE BY TEST STRIP Negative mg/dL 02/09 Specimen Type: URINE No comment entered. Ordering Provider: SINDHU PEDROZA Report Released Date/Time: Feb 09, 2023 10:29 AM Reporting Lab: [place] [address] [facility] [address] Performing Lab: [address] [address] [facility] URINALYS IS (STL) GLUCOSE [MASS/VOLU ME] IN URINE BY TEST STRIP Normalmg /dL 02/09 Specimen Type: URINE No comment entered. Ordering Provider: SINDHU PEDROZA Report Released Date/Time: Feb 09, 2023 10:29 AM Reporting Lab: [place] [address] [facility] [address] Performing Lab: [address] [address] [facility] URINALYS IS (STL) PROTEIN [MASS/VOLU ME] IN URINE BY TEST STRIP 200 mg/dL - 20 02/09 H Specimen Type: URINE No comment entered. Ordering Provider: SINDHU PEDROZA Report Released Date/Time: Feb 09, 2023 10:29 AM Reporting Lab: [place] [address] [facility] [address] Performing Lab: [facility] [address] [facility] [address] [facility] URINALYS IS (STL) URN.UROBIL INOGEN Normalmg /dL 02/09 Specimen Type: URINE No comment entered. Ordering Provider: SINDHU PEDROZA Report Released Date/Time: Feb 09, 2023 10:29 AM Reporting Lab: [place] [address] [facility] [address] Performing Lab: [place] [address] [place] [phone] URINALYS IS (STL) HEMOGLOBIN [MASS/VOLU ME] IN URINE BY TEST STRIP Negative mg/dL 02/09 Specimen Type: URINE No comment entered. Ordering Provider: SINDHU PEDROZA Report Released Date/Time: Feb 09, 2023 10:29 AM Reporting Lab: [place] [address] [facility] [address] Performing Lab: [place] [address] [facility] [address] [facility] URINALYS IS (STL) KETONES [MASS/VOLU ME] IN URINE BY TEST STRIP Negative mg/dL 02/09 Specimen Type: URINE No comment entered. Ordering Provider: SINDHU PEDROZA Report Released Date/Time: Feb 09, 2023 10:29 AM Reporting Lab: [place] [address] [facility] [address] Performing Lab: [place] [phone] [facility] URINALYS IS (STL) URN.LEUK.E ST. Negative mg/dL 02/09 Specimen Type: URINE No comment entered. Ordering Provider: SINDHU PEDROZA Report Released Date/Time: Feb 09, 2023 10:29 AM Reporting Lab: [address] [address] Performing Lab: [address] [phone] [place] [address] URINALYS IS (STL) SPECIFIC GRAVITY OF URINE 1.012 1.005 - 1.029 02/09 Specimen Type: URINE No comment entered. Ordering Provider: SINDHU PEDROZA Report Released Date/Time: Feb 09, 2023 10:29 AM Reporting Lab: [address] [address] Performing Lab: [address] [phone] RAPID PLASMA REAGIN (RPR) REAGIN AB [PRESENCE] IN SERUM BY RPR NONREACT LORAINE 02/09 Specimen Type: SERUM No comment entered. Ordering Provider: SINDHU PEDROZA Report Released Date/Time: Feb 09, 2023 10:29 AM Reporting Lab: [address] [address] Performing Lab: [address] [id number] [place] [address] HEP C Ab HCV Ab (STL) HEPATITIS C VIRUS AB [PRESENCE] IN SERUM Nonreact loraine 02/09 Specimen Type: SERUM Comment: The listed sex of this patient may not be a typical indication for this test. Therefore, reference ranges or interpretiv e criteria listed may not be valid. Clinical correlation suggested. Please resubmit a new specimen. Clinical correlation suggested Confirmator y testing to follow. Clinical correlation suggested. Email sent to [facility] reportable diseases Ordering Provider: SNIDHU PEDROZA Report Released Date/Time: Feb 09, 2023 10:29 AM Reporting Lab: [address] [address] Performing Lab: [address] [address] [facility] HEP HB S Ag ([place]RI[place]) (STL) HEPATITIS B VIRUS SURFACE AG [PRESENCE] IN [...] follow. Clinical correlation suggested. Email sent to [facility] reportable diseases Ordering Provider: SINDHU PEDROZA Report Released Date/Time: Feb 09, 2023 10:29 AM Reporting Lab: [place] [address] [place] [address] Performing Lab: [address] HEPATITI S B SURFACE AB PNL HEPATITIS [...] follow. Clinical correlation suggested. Email sent to [facility] diseases Ordering Provider: SINDHU PEDROZA Report Released Date/Time: Feb 09, 2023 10:29 AM Reporting Lab: [place] [address] [place] [id number] Performing Lab: [place] [address] [place] [address] [place] [address] HEPATITI S B SURFACE AB PNL HEPATITIS [...] follow. Clinical correlation suggested. Email sent to [facility] reportable diseases Ordering Provider: SINDHU PEDROZA Report Released Date/Time: Feb 09, 2023 10:29 AM Reporting Lab: [place] [address] [place] [address] Performing Lab: [address] HIV COMBO FOURTH GENERATI ON (STL) HIV 1+2 AB+HIV1 P24 AG [PRESENCE] IN SERUM OR PLASMA BY IMMUNOASSA Y Nonreact loraine 02/09 Specimen Type: SERUM No comment entered. Ordering Provider: SINDHU PEDROZA Report Released Date/Time: Feb 09, 2023 10:29 AM Reporting Lab: [place] [address] Performing Lab: [address] PROST. SPECIFIC AG.(PB-S TL) PROSTATE SPECIFIC AG [...] Feb 09, 2023 10:29 AM Reporting Lab: [place] [address] Performing Lab: [address] QUANTIFE CLARITZA-TB,4 TUBE MYCOBACTER IUM TUBERCULOS IS [...] additional information , please refer to [email or web address] .VEEDIMS/faq/FA Q204 (This link is being provided for information / educational purposes only.) Test Performed by [employer], [employer] [facility], [address] [place] [address] Rodolfo Mario M.D., Ph.D., Director of Laboratorie s , CLIA [id number] Ordering Provider: SINDHU PEDROZA Report Released Date/Time: Feb 09, 2023 10:29 AM Reporting Lab: [facility] [address] [place] [address] Performing Lab: [facility] [address] [place] [address] [facility] QUANTIFE CLARITZA-TB,4 TUBE MYCOBACTER IUM [...] For additional information , please refer to http://Sodraft/faq/FA Q204 (This link is being provided for information / educational purposes only.) Test Performed by [employer] [place], [address] [place] [address] Rodolfo Mario M.D., Ph.D., Director of Laboratorie s , [facility] [id number] Ordering Provider: SINDHU PEDROZA Report Released Date/Time: Feb 09, 2023 10:29 AM Reporting Lab: [facility] [address] [facility] [place] [address] Performing Lab: [facility] [address] [place] [address] [facility] QUANTIFE CLARITZA-TB,4 TUBE MYCOBACTER IUM [...] For additional information , please refer to [email or web address].Attenex .VEEDIMS/faq/FA Q204 (This link is being provided for information / educational purposes only.) Test Performed by [employer] [place], [address] [place], [place] Rodolfo Mario M.D., Ph.D., Director of Laboratorie s , CLIA [id number] Ordering Provider: SINDHU PEDROZA Report Released Date/Time: Feb 09, 2023 10:29 AM Reporting Lab: [facility] [address] [facility] [place] [address] Performing Lab: [facility] [address] [place] [address] [facility] QUANTIFE CLARITZA-TB,4 TUBE MYCOBACTER IUM [...] additional information , please refer to http://educ ation.Attenex .com/faq/FA Q204 (This link is being provided for information / educational purposes only.) Test Performed by [employer], [employer] [facility], [address] [place] [address] Rodolfo Mario M.D., Ph.D., Director of Laboratorie s , CLIA [id number] Ordering Provider: SINDHU PEDROZA Report Released Date/Time: Feb 09, 2023 10:29 AM Reporting Lab: [facility] [address] [facility] [place] [address] Performing Lab: [facility] [address] [place] [address] [facility] QUANTIFE CLARITZA-TB,4 TUBE MYCOBACTER IUM TUBERCULOS IS [...] additional information , please refer to http://educ [email or web address] .com/faq/FA Q204 (This link is being provided for information / educational purposes only.) Test Performed by [employer], [employer] [facility], [address] [place] [address] Rodolfo Mario M.D., Ph.D., Director of Laboratorie s , CLIA [id number] Ordering Provider: SINDHU PEDROZA Report Released Date/Time: Feb 09, 2023 10:29 AM Reporting Lab: [facility] [address] [facility] [facility] [place] [address] Performing Lab: [facility] [address] [facility] Vital Signs Combined list of inpatient and outpatient Vital Signs from Department of Defense and Veterans Affairs, ranging from 12 months to all on record, depending upon the facility. Vital Sign Value Date Comments Source SYSTOLIC BLOOD PRESSURE 174 01/02/2024 09:46:04 [facility] DIASTOLIC BLOOD PRESSURE 81 01/02/2024 09:46:04 [facility] PULSE OXIMETRY 98 01/02/2024 09:46:04 [facility] WEIGHT 215.3 01/02/2024 09:46:04 [facility] BMI 29kg/m2 01/02/2024 09:46:04 [facility] PAIN 8 01/02/2024 09:46:04 [facility] TEMPERATURE 97 01/02/2024 09:46:04 [facility] PULSE 87 01/02/2024 09:46:04 [facility] RESPIRATION 16 01/02/2024 09:46:04 [facility] Encounters Combined list of: 1) Encounters from Department of [facility] facilities going back up to thelast 18 months. 2) Encounters from the Department of [facility] facilities going back up to 280 months. Location Location Details Encounter Type Encounter Number Reason For Visit Attending Provider ADM Date DC Date Status Disposition Source [facility] Outpatient Encounter [id number] 10/13 [facility] Outpatient Encounter [id number] 10/13 [facility] Outpatient Encounter [id number] YEHUDA COHEN M 10/20 [facility] Outpatient Encounter [id number] 10/20 [facility] HC PRO PHONE CALL 11-20 MIN [id number] Diagnos is: ICD-10- CM E16.2 Hypogly cemia, unspeci fied
YEHUDA COHEN 10/[address] 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, except renal pelvis< br/> ZEYAD FORBESSINDHU Gipson 10/21 [facility] En[facility] [id number] ZEYAD FORBESSINDHU Gipson 10/21 [facility] Encounter [id number] 10/28 [facility] Outpatient Encounter [id number] 12/16 [facility] Outpatient Encounter [id number] YEHUDA COHEN 12/16 [facility] Outpatient Encounter [id number] 12/17 [facility] Outpatient Encounter [id number] MALCOLM CAICEDO 12/21 [facility] Outpatient Encounter [id number] Diagnos is: ICD-10- CM N18.6 End stage renal disease
ANTONIETTA PATIÑO 12/22 [facility] Outpatient Encounter [id number] 12/28 [facility] Encounter [id number] 12/29 [facility] En[facility] [id number] 01/11 [facility] Outpatient Encounter [id number] BLOSSOM CADE MITRALito 02/01 [facility] Outpatient Encounter [id number] Diagnos is: ICD-10- CM F43.10 Post-tr aumatic stress disorde r, unspeci fied
LEVI RODRÍGUEZ 02/02 [facility] Outpatient Encounter [id number] 02/07 [facility] OFF/OP CNSLTJ NEW/EST LOW 30 [id number] Diagnos is: ICD-10- CM N18.6 End stage renal disease
SINDHU PEDROZA 02/09 [facility] Outpatient Encounter [id number] 03/10 [facility] Outpatient Encounter [id number] 03/14 [facility] Outpatient Encounter [id number] 03/30 [facility] Outpatient Encounter [id number] 08/01 [facility] Outpatient Encounter [id number] 08/18 [facility] OFF/OP EST MAY X REQ PHY/QHP [id number] Diagnos is: ICD-10- CM H53.9 Unspeci fied visual disturb ance
YEHUDA COHEN 08/18 [facility] Outpatient Encounter [id number] LEVI RODRÍGUEZ 08/18 [facility] PSYCH DIAGNOSTIC EVALUATION [id number] Diagnos is: ICD-10- CM F41.9 Anxiety disorde r, unspeci fied
BLANCA CHARLES T 08/30 [facility] Outpatient Encounter [id number] BLANCA CHARLES T 08/30 [facility] Outpatient Encounter [id number] 08/31 [facility] Outpatient Encounter [id number] 09/01 [facility] Outpatient Encounter [id number] Diagnos is: ICD-10- CM Z13.5 Encount er for screeni ng for eye and ear disorde rs
ALEXANDRA GODFREY 09/[address] [facility] IMG RTA DETCJ/MNTR DS STAFF [id number] Diagnos is: ICD-10- CM Z13.5 Encount er for screeni ng for eye and ear disorde rs
SCOTT OROURKE 09/15 [facility] Outpatient Encounter [id number] HAVEN SCOTT 09/19 [facility] MTMS BY PHARM VETERINARY ANATOMIST 15 MIN [id number] Diagnos is: ICD-10- CM Z72.0 Tobacco use<br/ > DEISY GARCIA TIE E 09/20 [facility] [place] [id number] Diagnos is: ICD-10- CM K08.109 Complet e loss of teeth, unspeci fied cause, unspeci fied class<b r/> GEORGINA OMALLEY 10/09 [facility] Outpatient Encounter [id number] 10/17 [facility] Outpatient Encounter [id number] 10/17 [facility] MTMS BY PHARM EST 15 MIN [id number] Diagnos is: ICD-10- CM E11.9 Type 2 diabete s mellitu s without complic ations< br/> DEISY GARCIA TIE E 10/25 [facility] TARGETED CASE MANAGEMENT [id number] Diagnos is: ICD-10- CM N18.6 End stage renal disease
KARTHIK HATCH 11/08 [facility] Outpatient Encounter [id number] VISHAL EASON 11/13 [facility] OFF/OP CNSLTJ NEW/EST MOD 40 [id number] Diagnos is: ICD-10- CM N18.6 End stage renal disease
MOLLY ROLAND 11/13 [facility] Outpatient Encounter [id number] 11/13 [facility] Outpatient Encounter [id number] 11/17 [facility] Outpatient Encounter [id number] 11/20 [facility] MTMS BY PHARM EST 15 MIN [id number] Diagnos is: ICD-10- CM Z72.0 Tobacco use<br/ > DEISY GARCIA 11/22 [facility] Outpatient Encounter [id number] LEVI RODRÍGUEZ 12/08 [facility] PROGRAM INTAKE ASSESSMENT [id number] Diagnos is: ICD-10- CM N18.6 End stage renal disease
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
GIFTY AKBAR TTHEW C 01/03 [facility] Outpatient Encounter [id number] 01/09 [facility] Outpatient Encounter [id number] 01/24 [facility] Outpatient Encounter [id number] 02/13 [facility] Outpatient Encounter [id number] 02/14 [facility] Outpatient Encounter [id number] DEISY GUERIN 03/19 [facility] Social History Combined list of available smoking, tobacco, and other social history from Department of Defense and Veterans Affairs facilities. Social History Type Response Date Comment Sour e Tobacco smoking status NHIS VA-TOBACCO DOESNT USE WI 30 MIN WAKEUP 12/29/2021 [facility] History of tobacco use VA-TOBACCO USE 30 YEARS OR MORE 12/29/2021 [facility] History of tobacco use [place]-TO[place]AC[place] USER EVERY DAY 12/10/2020 [facility] History of tobacco use [place]-TOBACCO USER EVERY DAY 12/26/2019 [facility] History of tobacco use VA-TOBACCO USE PHARMACY ORDER ENTRY TECHNICIAN NO 08/22/2018 [facility] History of tobacco use CURRENT TOBACCO USER 08/31/2016 [facility] History of tobacco use CURRENT TOBACCO USER 08/13/2015 [facility] History of tobacco use CURRENT TOBACCO USER 06/26/2014 [facility] History of tobacco use CURRENT TOBACCO USER 09/04/2013 [facility] History of tobacco use TOBACCO OFFERRED PT MEDS (PROVIDER) 07/30/2008 [facility] History of tobacco use CURRENT TOBACCO USER 05/28/2008 [facility] History of tobacco use TOBACCO OFFERED STOP SMOKING CLINIC 07/27/2007 [facility] History of tobacco use CURRENT TOBACCO USER 09/19/2006 [facility] History of tobacco use CURRENT TOBACCO USER 09/01/2001 [facility] History of tobacco use TOB REFUSES SMOKING CESSATION 01/18/2001 [facility] History of tobacco use CURRENT TOBACCO USER 09/21/2000 [facility] History of tobacco use CURRENT TOBACCO USER 07/21/2000 [facility] Plan of Care List of future care activities from Department [facility] facilities. Additional future care activities may be listed in the Assessment and Plan section. Date/Time Care Activity Care Activity Detail Facili ty 05/30/2024 AMBULATORY - NONE AMBULATORY - NONE [facility] 07/04/2024 AMBULATORY - SURGERY [facility] 09/12/2024 AMBULATORY - SURGERY [facility] Advance Directives List of completed, amended, or rescinded Advance Directives on record at [facility] facilities. An actual copy of the Directive is not included. Date Advance Directive Provider Source 08/05/1995 ADVANCE DIRECTIVE ROGER MICHELLE [facility]
--- OUTSIDE RECORDS SUMMARY | 2024-05-01 09:44 | XMS_ITS | Continuity of Care Document ---
Author Organization [facility] Address [address] [place] [address] Phone Care Team Providers Care Button Tacker Name Role Phone Morgan Mercado MD Unavailable Unavailable Allergies, Adverse Reactions, Alerts Substance Reaction Status Criticality No Known Allergies Active No Inform ation Medications Medication Instructions Dosage Effective Dates (start - stop) Status Comments Percocet 10 mg-325 mg tablet take 1 tablet by oral route every 6 hours as needed as needed 1.00 tablet - Active avoid driving or operate machines,, PRN for pain G89.4 Soma 350 mg tablet take 1 Tablet by oral route 2 times every day as needed 350 MG - Active avoid drivin g or operate machines, PRN for pain Xanax 1 mg tablet take 1 tablet by oral route 2 times every day as needed 1 MG - Active PRN for anxiety, avoid driving or operate machines allopurinol 100 mg tablet take 1 tablet by oral route 2 times every day 100 MG - Active start once acute gout resolve albuterol sulfate HFA 90 mcg/actuation aerosol inhaler inhale 1 puff by inhalation route every 4 - 6 hours as needed as needed 1 puff - Active PRN for sob fenofibrate 54 mg tablet take 1 tablet by oral route every day 54 MG - Active Zocor 10 mg tablet take 1 tablet by oral route every day in the evening 10 MG - Active Celexa 20 mg tablet take 1 tablet by oral route every day 20 MG - Active take at night before sleep, avoid driving or operate machines diltiazem ER 120 mg capsule,24 hr,extended release [...] Providers Copied on Encounter OFFICE/OUTPA TIENT VISIT, [facility], [address] [place], [place], [address], tel:[phone] [facility] pain (chief complaint)an xiety1 (chief complaint) Chronic pain syndromeGeneraliz ed Anxiety Disorder 5 Rogelio Frias [address], [place], [place], [address] , [place]. tel:[phone] OFFICE/OUTPA TIENT VISIT, [facility], [address], [place], [place], [address], [place] tel:[phone] [facility] pain (chief complaint)an xiety1 (chief complaint) Chronic pain syndromeGeneraliz ed Anxiety Disorder 4 Rogelio Frias [address], [place], [place], [address] , [place]. tel:[phone] OFFICE/OUTPA TIENT VISIT, [facility], [address], [place], [place], [address], [place] tel:[phone] [facility] pain (chief complaint)an xiety1 (chief complaint) Generalized Anxiety DisorderChronic pain syndrome 4 Mercado Morgan. [address], [place], [place], [address] , [place]. tel:[phone] OFFICE/OUTPA TIENT VISIT, EST [facility], [address], [place], [place], [address], [place] tel:[phone] [facility] pain (chief complaint)an xiety1 (chief complaint)go ut1 (chief complaint) Chronic pain syndromeGeneraliz ed Anxiety DisorderGoutTobac co use 4 Mercado Morgan. [address], [place], [place], [address] , [place]. tel:[phone] OFFICE/OUTPA TIENT VISIT, [facility], [address], [place], [place], [address], [place] tel:[phone] [facility] pain (chief complaint)an xiety1 (chief complaint)CO PD1 (chief complaint) Chronic pain syndromeGeneraliz ed Anxiety DisorderCentrilob ular emphysemaEncntr screen for malignant neoplasm of respiratory organs 4 Mercado Morgan. [address], [place], [place], [address] , [place]. tel:[phone] OFFICE/OUTPA TIENT VISIT, [facility], [address], [place], [place], [address], [place] tel:[phone] [facility] pain (chief complaint)an xiety1 (chief complaint)HL P (chief complaint) Chronic pain syndromeGeneraliz ed Anxiety DisorderEnd stage renal diseaseMixed hyperlipidemia Nov- 4 Mercado Morgan. [address], [place], [place], [address] , [place]. tel:[phone] OFFICE/OUTPA TIENT VISIT, EST [facility], [address], [place], [place], [address], [place] tel:[phone] [facility] pain (chief complaint)an xiety1 (chief complaint) Chronic pain syndromeGeneraliz ed Anxiety Disorder 4 Mercado Morgan. [address], [place], [place], [address] , [place]. tel:[phone] OFFICE/OUTPA TIENT VISIT, [facility], [address] [place], [address], [place] tel:[phone] [facility] pain (chief complaint)an xiety1 (chief complaint) Chronic pain syndromeGeneraliz ed Anxiety Disorder 4 Rogelio Mora. [address], [place], [place], [address] , [place]. tel:[phone] OFFICE/OUTPA TIENT VISIT, [facility], [address] [place], [address], [place] tel:[phone] [facility] pain (chief complaint)an xiety1 (chief complaint)ES RD (chief complaint)ca rdiac1 (chief complaint) Chronic pain syndromeGeneraliz ed Anxiety DisorderEnd stage renal diseaseCardiomyop athy 4 Rogelio Mora. [address], [place], [place], [address] , [place]. tel:[phone] OFFICE/OUTPA TIENT VISIT, [facility], [address] [place], [address], [place] tel:[phone] [facility] pain (chief complaint)an xiety1 (chief complaint) Chronic pain syndromeGeneraliz ed Anxiety Disorder 4 Rogelio Mora. [address], [place], [place], [address] , [place]. tel:[phone] OFFICE/OUTPA TIENT VISIT, [facility], [address] [place], [address], [place] tel:[phone] [facility] pain (chief complaint)an xiety1 (chief complaint)af ib (chief complaint)ES RD (chief complaint) Chronic pain syndromeGeneraliz ed Anxiety DisorderChronic kidney disease, stage 4 (severe)Essential (primary) hypertensionCardi omyopathy 4 Rogelio Mora. [address], [place], [place], [address] , [place]. tel:[phone] OFFICE/OUTPA TIENT VISIT, [facility], [address], [place], [place], [address], [place] tel:[phone] [facility] pain (chief complaint)an xiety1 (chief complaint) Chronic pain syndromeGeneraliz ed Anxiety Disorder May- 0 4 Rogelio Mora. [address], [place], [place], [address] , [place]. tel:[phone] OFFICE/OUTPA TIENT VISIT, [facility], [address], [place], [place], [address], [place] tel:[phone] [facility] anemia1 (chief complaint)DM (chief complaint)pa in (chief complaint)an xiety1 (chief complaint)go ut1 (chief complaint)HL P (chief complaint) GoutChronic pain syndromeMixed hyperlipidemiaChr onic kidney disease, stage 4 (severe)Type 2 diabetes mellitus without complicationsThro mbocytopeniaOther disorders of phosphorus metabolismGeneral ized Anxiety DisorderAnemia 4 Rogelio Mora. [address], [place], [place], [address] , [place]. tel:[phone] OFFICE/OUTPA TIENT VISIT, [facility], [address] [place], [address], [place] tel:[phone] [facility] pain (chief complaint)an xiety1 (chief complaint)LP (chief complaint)go ut1 (chief complaint) Chronic pain syndromeGeneraliz ed Anxiety DisorderGoutMixed hyperlipidemia 4 Rogelio Mora. [address], [place], [place], [address] , [place]. tel:[phone] OFFICE/OUTPA TIENT VISIT, [facility], [address], [place], [place], [address], [place] tel:[phone] [facility] pain (chief complaint)an xiety1 (chief complaint)HL P (chief complaint)go ut1 (chief complaint) Chronic pain syndromeMixed hyperlipidemiaGen eralized Anxiety DisorderGout 3 Rogelio Mora. [address], [place], [place], [address] , [place]. tel:[phone] OFFICE/OUTPA TIENT VISIT, [facility], [address], [place], [place], [address], [place] tel:[phone] [facility] physical (chief complaint) Chronic pain syndromeChronic kidney disease, stage 4 (severe)Polyp of colonCardiomyopat hyEncounter for general adult medical exam w abnormal findingsGeneraliz ed Anxiety DisorderType 2 diabetes mellitus without complicationsMixe d hyperlipidemia 3 Rogelio Mora. [address], [place], [place], [address] , [place]. tel:[phone] OFFICE/OUTPA TIENT VISIT, [facility], [address], [place], [place], [address], [place] tel:[phone] [facility] cough1 (chief complaint) Acute bronchitis 3 Rogelio Mora. [address], [place], [place], [address] , [place]. tel:[phone] OFFICE/OUTPA TIENT VISIT, [facility], [address], [place], [place], [address], [place] tel:[phone] [facility] pain (chief complaint)an xiety1 (chief complaint)HL P (chief complaint)co fernando polyp1 (chief complaint) Chronic pain syndromeGeneraliz ed Anxiety DisorderPolyp of colonMixed hyperlipidemia 3 Rogelio Mora. [address], [place], [place], [address] , [place]. tel:[phone] OFFICE/OUTPA TIENT VISIT, [facility], [address], [place], [place], [address], [place] tel:[phone] [facility] pain (chief complaint)an xiety1 (chief complaint)re nal failure1 (chief complaint)we ight loss1 (chief complaint) Chronic pain syndromeGeneraliz ed Anxiety DisorderAbnormal weight lossChronic kidney disease, stage 4 (severe) 3 Rogelio Mora. [address], [place], [place], [address] , [place]. tel:[phone] OFFICE/OUTPA TIENT VISIT, [facility], [address], [place], [place], [address], [place] tel:[phone] [facility] anxiety1 (chief complaint)pa in (chief complaint)co ugh1 (chief complaint)an emia1 (chief complaint) Anemia in chronic kidney diseaseChronic pain syndromeGeneraliz ed Anxiety DisorderHypocalce miaThrombocytopen iaAcute bronchitis 3 Rogelio Frias [address], [place], [place], [address] , [place]. tel:[phone] OFFICE/OUTPA TIENT VISIT, [facility], [address], [place], [place], [address], [place] tel:[phone] [facility] anxietyy1 (chief complaint)pa in (chief complaint)gl ucose1 (chief complaint)an emia1 (chief complaint)HT N (chief complaint) Chronic pain syndromeGeneraliz ed Anxiety DisorderAnemia in chronic kidney diseaseHypoglycem ia 3 Rogelio Mora. [address], [place], [place], [address] , [place]. tel:[phone] OFFICE/OUTPA TIENT VISIT, [facility], [address] [place], [address], [place] tel:[phone] [facility] anxiety1 (chief complaint)pa in (chief complaint)ES RD (chief complaint)co fernando polyp1 (chief complaint)to bacco (chief complaint) Chronic kidney disease, stage 4 (severe)Chronic pain syndromeGeneraliz ed Anxiety DisorderTobacco usePolyp of colon 3 Rogelio Mora. [address], [place], [place], [address] , [place]. tel:[phone] OFFICE/OUTPA TIENT VISIT, [facility], [address], [place], [place], [address], [place] tel:[phone] [facility] HTN (chief complaint)an xiety1 (chief complaint)pa in (chief complaint) Chronic kidney disease, stage 4 (severe)Chronic pain syndromeEssential (primary) hypertensionGener alized Anxiety Disorder Ponce-0 3 Rogelio Mora. [address], [place], [place], [address] , [place]. tel:[phone] OFFICE/OUTPA TIENT VISIT, [facility], [address], [place], [place], [address], [place] tel:[phone] [facility] pain (chief complaint)an xiety1 (chief complaint)re nal (chief complaint) Essential (primary) hypertensionChron ic kidney disease, stage 4 (severe)Chronic pain syndromeGeneraliz ed Anxiety DisorderMalignant neoplasm of left renal pelvisMixed hyperlipidemia 3 Rogelio Frias [address], [place], [place], [address] , [place]. tel:[phone] OFFICE/OUTPA TIENT VISIT, [facility], [address], [place], [place], [address], [place] tel:[phone] [facility] pain (chief complaint)an xiety1 (chief complaint)hy poglycemia1 (chief complaint)re nal (chief complaint) Chronic kidney disease, stage 4 (severe)Chronic pain syndromeHypoglyce miaGeneralized Anxiety Disorder Jun-0 3 Rogelio Mora. [address], [place], [place], [address] , [place]. tel:[phone] OFFICE/OUTPA TIENT VISIT, [facility], [address] [place], [address], [place] tel:[phone] [facility] pain (chief complaint)an xiety1 (chief complaint)hy poglycemia1 (chief complaint)CK D (chief complaint) Chronic kidney disease, stage 4 (severe)Generaliz ed Anxiety DisorderChronic pain syndromeHypoglyce miaEssential (primary) hypertension 3 Rogelio Mora. [address], [place], [place], [address] , [place]. [phone] OFFICE/OUTPA TIENT VISIT, [facility], [address] [place], [address], [place] tel:[phone] [facility] pain (chief complaint)an xiety1 (chief complaint)CO PD1 (chief complaint)la b (chief complaint) Chronic pain syndromeGoutCentr ilobular emphysemaChronic kidney disease, stage 4 (severe)AnemiaMix ed hyperlipidemiaGen eralized Anxiety DisorderMalignant neoplasm of left renal pelvis 3 Rogelio Frias [address], [place], [place], [address] , [place]. tel:[phone] OFFICE/OUTPA TIENT VISIT, [facility], [address] [place], [address], [place] tel:[phone] [facility] cough1 (chief complaint)HT (chief complaint)em physema1 (chief complaint) Essential (primary) hypertensionEmphy semaAcute bronchitis 3 Rogelio Frias [address], [place], [place], [address] , [place]. tel:[phone] OFFICE/OUTPA TIENT VISIT, [facility], [address] [place], [address], [place] tel:[phone] [facility] pain (chief complaint)an xiety1 (chief complaint)HL P (chief complaint)go ut1 (chief complaint) Chronic pain syndromeGeneraliz ed Anxiety DisorderMixed hyperlipidemiaGou tPolyp of colon 3 Rogelio Frias [address], [place], [place], [address] , [place]. tel:[phone] OFFICE/OUTPA TIENT VISIT, [facility], [address] [place], [address], [place] tel:[phone] [facility] pain (chief complaint)an xiety1 (chief complaint)pn eumonia1 (chief complaint)re nal1 (chief complaint) Chronic pain syndromeGeneraliz ed Anxiety DisorderMalignant neoplasm of left renal pelvisPneumoniaMa lignant neoplasm of bladder, unspecified 2 Rogelio Mora. [address], [place], [place], [address] , [place]. tel:[phone] OFFICE/OUTPA TIENT VISIT, [facility], [address], [place], [place], [address], [place] tel:[phone] [facility] pain (chief complaint)an xiety1 (chief complaint)re nal (chief complaint) Chronic pain syndromeEnd stage renal diseaseGeneralize d Anxiety Disorder 2 Rogelio Mora. [address], [place], [place], [address] , [place]. tel:[phone] OFFICE/OUTPA TIENT VISIT, [facility], [address], [place], [place], [address], [place] tel:[phone] [facility] pain (chief complaint)an xiety1 (chief complaint)an emia1 (chief complaint)re nal1 (chief complaint) AnemiaChronic pain syndromeEnd stage renal diseaseGeneralize d Anxiety DisorderPneumonia HypocalcemiaOther disorders of phosphorus metabolism 2 Rogelio Mora. [address], [place], [place], [address] , [place]. [phone] OFFICE/OUTPA TIENT VISIT, [facility], [address], [place], [place], [address], [place] tel:[phone] [facility] anxiety1 (chief complaint)pa in (chief complaint)re nal1 (chief complaint)an emia1 (chief complaint) Chronic pain syndromeEnd stage renal diseaseGeneralize d Anxiety DisorderMalignant neoplasm of left renal pelvisAnemia 2 Rogelio Mora. [address], [place], [place], [address] , [place]. tel:[phone] OFFICE/OUTPA TIENT VISIT, EST [facility], [address], [place], [place], [address], [place] tel:[phone] [facility] anxiety1 (chief complaint)pa in (chief complaint)HL P (chief complaint)an emia1 (chief complaint) AnemiaChronic pain syndromeEnd stage renal diseaseGeneralize d Anxiety DisorderMixed hyperlipidemia 2 Rogelio Mora. [address], [place], [place], [address] , [place]. [phone] OFFICE/OUTPA TIENT VISIT, [facility], [address], [place], [place], [address], [place] tel:[phone] [facility] anxiety1 (chief complaint)pa in (chief complaint)an emia1 (chief complaint) Chronic pain syndromeGeneraliz ed Anxiety DisorderAnemia 2 Rogelio Mora. [address], [place], [place], [address] , [place]. tel:[phone] OFFICE/OUTPA TIENT VISIT, [facility], [address], [place], [place], [address], [place] tel:[phone] [facility] pneumonia1 (chief complaint)re nal failure1 (chief complaint)an emia1 (chief complaint)pa in1 (chief complaint)an xiety1 (chief complaint) AnemiaEnd stage renal diseasePneumoniaC hronic pain syndromeGeneraliz ed Anxiety DisorderMalignant neoplasm of left renal pelvisPneumonia due to Streptococcus pneumoniae 2 Rogelio Mora. [address], [place], [place], [address] , [place]. [phone] OFFICE/OUTPA TIENT VISIT, [facility], [address], [place], [place], [address], [place] tel:[phone] [facility] low back pain1 (chief complaint)pn eumonia1 (chief complaint) Pneumonia due to Streptococcus pneumoniaePulmona ry embolismLumbago with sciatica, left side 2 Rogelio Mora. [address], [place], [place], [address] , [place]. tel:[phone] OFFICE/OUTPA TIENT VISIT, [facility], [address], [place], [place], [address], [place] tel:[phone] [facility] pain (chief complaint)an xiety1 (chief complaint)pn eumonia1 (chief complaint) Chronic pain syndromeGeneraliz ed Anxiety DisorderPneumonia Pulmonary embolismChronic kidney disease, stage 3 unspecified 2 Mercado Morgan. [address], [place], [place], [address] , [place]. tel:[phone] OFFICE/OUTPA TIENT VISIT, [facility], [address], [place], [place], [address], [place] tel:[phone] [facility] cough1 (chief complaint) Chest pain on breathingHemoptys isDyspnea 2 Rogelio Mora. [address], [place], [place], [address] , [place]. tel:[phone] OFFICE/OUTPA TIENT VISIT, [facility], [address], [place], [place], [address], [place] tel:[phone] [facility] pain (chief complaint)an xiety1 (chief complaint)tu bular adenoma1 (chief complaint) Polyp of colonChronic pain syndromeGeneraliz ed Anxiety Disorder Jun- 2 Rogelio Mora. [address], [place], [place], [address] , [place]. tel:[phone] OFFICE/OUTPA TIENT VISIT, [facility], [address], [place], [place], [address], [place] tel:[phone] [facility] pain (chief complaint)an xiety1 (chief complaint)gl ucose1 (chief complaint)fredrick ng nodule1 (chief complaint) HyperglycemiaChro gallo pain syndromeAnxiolyti c dependenceSolitar y lung nodule 2 Rogelio Mora. [address], [place], [place], [address] , [place]. tel:[phone] OFFICE/OUTPA TIENT VISIT, [facility], [address] [place], [address], [place] tel:[phone] [facility] uric acid1 (chief complaint)HL P (chief complaint)ph os1 (chief complaint)fo late (chief complaint)re nal disease1 (chief complaint)gl ucose1 (chief complaint) GoutSolitary lung noduleHyperlipide miaBPH w/o lower urinary tract symptomChronic kidney disease, stage 3 unspecifiedHypoca lcemiaOther disorders of phosphorus metabolismFolate deficiencyAnxioly tic dependenceChronic pain syndrome 2 Rogelio Frias [address], [place], [place], [address] , [place]. tel:[phone] OFFICE/OUTPA TIENT VISIT, [facility], [address] [place], [place], [address], [place] tel:[phone] [facility] pain1 (chief complaint)an xiety1 (chief complaint)HL P (chief complaint)re nal (chief complaint) Chronic pain syndromeAnxiolyti c dependenceHyperli pidemiaChronic kidney disease, stage 3 unspecifiedBPH w/o lower urinary tract symptomDisorder of parathyroid gland, unspecifiedVitami n D deficiency, unspecifiedSolita ry lung noduleGout 2 Rogelio Mora. [address], [place], [place], [address] , [place]. tel:[phone] OFFICE/OUTPA TIENT VISIT, [facility], [address] [place], [place], [address], [place] tel:[phone] [facility] colon (chief complaint)pa in (chief complaint)an xiety1 (chief complaint)HT N (chief complaint) Chronic pain syndromeAnxiolyti c dependencePolyp of colonAtrial fibrillationEssen tial (primary) hypertension 1 Rogelio Frias [address], [place], [place], [address] , [place]. tel:[phone] OFFICE/OUTPA TIENT VISIT, [facility], [address] [place], [address], tel:[phone] [facility] pain (chief complaint)an xiety1 (chief complaint) Chronic pain syndromeAnxiolyti c dependence 1 oRgelio Frias [address], [place], [place], [address] , [place]. tel:[phone] OFFICE/OUTPA TIENT VISIT, [facility], [address] [place], [address], tel:[phone] [facility] pain (chief complaint)an xiety1 (chief complaint) Chronic pain syndromeAnxiolyti c dependence 1 Rogelio Frias [address], [address] , [place]. tel:[phone] OFFICE/OUTPA TIENT VISIT, [facility], [address] [place], [address], tel:[phone] [facility] pain (chief complaint)an xiety1 (chief complaint)CO PD1 (chief complaint)go ut1 (chief complaint) GoutChronic pain syndromeAnxiolyti c dependenceEmphyse maChronic kidney disease, stage 3 unspecified 1 Rogelio Frias [address], [place], [place], [address] , [place]. tel:[phone] OFFICE/OUTPA TIENT VISIT, [facility], [address] [place], [address], [place] tel:[phone] [facility] pain (chief complaint)an xiety1 (chief complaint)HL P (chief complaint)go ut1 (chief complaint) Chronic pain syndromeAnxiolyti c dependenceGoutHyp erlipidemia 1 Rogelio Frias [address], [place], [place], [address] , [place]. tel:[phone] OFFICE/OUTPA TIENT VISIT, EST [facility], [address] [place], [address], tel:[phone] [facility] anemia1 (chief complaint)pa in (chief complaint)an xiety1 (chief complaint)go ut1 (chief complaint) GoutAnemiaChronic pain syndromeAnxiolyti c dependence 1 Rogelio Mora. [address], [place], [place], [address] , [place]. tel:[phone] OFFICE/OUTPA TIENT VISIT, [facility], [address] [place], [address], tel:[phone] [facility] physical (chief complaint) Encounter for general adult medical exam w abnormal findingsHyperlipi demiaAnemiaGoutHy perkalemiaAtrial fibrillationType 2 diabetes mellitus with diabetic nephropathy 1 Rogelio Mora. [address], [place], [place], [address] , [place]. tel:[phone] OFFICE/OUTPA TIENT VISIT, EST [facility], [address] [place], [address], [place] tel:[phone] [facility] pain (chief complaint)an xiety1 (chief complaint)an emia1 (chief complaint)vi tamin D (chief complaint) Chronic pain syndromeAnxiolyti c dependenceAnemiaV itamin D deficiency, unspecified 1 Rogelio Mora. [address], [place], [place], [address] , [place]. tel:[phone] OFFICE/OUTPA TIENT VISIT, EST [facility], [address] [place], [address], [place] tel:[phone] [facility] pain (chief complaint)an xiety1 (chief complaint) Chronic pain syndromeAnxiolyti c dependence 1 Rogelio Mora. [address], [place], [place], [address] , [place]. tel:[phone] OFFICE/OUTPA TIENT VISIT, [facility], [address], [place], [place], [address], [place] tel:[phone] [facility] pain (chief complaint)an xiety1 (chief complaint)an xiety1 (chief complaint) Anxiolytic dependenceHyperli pidemiaChronic pain syndrome 1 Rogelio Mora. [address], [place], [place], [address] , [place]. tel:[phone] OFFICE/OUTPA TIENT VISIT, [facility], [address] [place], [address], [place] tel:[phone] [facility] HLP (chief complaint)re nal (chief complaint)An emia1 (chief complaint)an xiety1 (chief complaint)pa in (chief complaint)fredrick ng nodule1 (chief complaint) Chronic pain syndromeSolitary lung noduleRenal diseaseAnemiaHype rlipidemiaAnxioly tic dependence 1 Rogelio Mora. [address], [place], [place], [address] , [place]. tel:[phone] OFFICE/OUTPA TIENT VISIT, [facility], [address] [place], [address], [place] tel:[phone] [facility] pain (chief complaint)an xiety1 (chief complaint)HL P (chief complaint)fredrick ng nodule1 (chief complaint)HT N (chief complaint) Anxiolytic dependenceChronic pain syndromeHyperlipi demiaEssential (primary) hypertensionBenig n neoplasm of trachea 1 Rogelio Mora. [address], [place], [place], [address] , [place]. tel:[phone] OFFICE/OUTPA TIENT VISIT, [facility], [address], [place], [place], [address], [place] tel:[phone] [facility] pain (chief complaint)an xiety1 (chief complaint)fredrick ng nodule1 (chief complaint)tr achea lesion1 (chief complaint) Chronic pain syndromeSolitary lung noduleBenign neoplasm of tracheaAnxiolytic dependence 1 Rogelio Frias [address], [place], [place], [address] , [place]. tel:[phone] OFFICE/OUTPA TIENT VISIT, [facility], [address], [place], [place], [address], [place] tel:[phone] [facility] COPD1 (chief complaint)pa in (chief complaint)an xiety1 (chief complaint)co ugh1 (chief complaint) EmphysemaChronic pain syndromeAnxiolyti c dependenceSolitar y lung nodule 0 Rogelio Frias [address], [place], [place], [address] , [place]. tel:[phone] OFFICE/OUTPA TIENT VISIT, [facility], [address], [address], [place] tel:[phone] [facility] pain (chief complaint)an xiety1 (chief complaint) Chronic pain syndromeAnxiolyti c dependence 0 Rogelio Frias [address], [place], [place], [address] , [place]. tel:[phone] OFFICE/OUTPA TIENT VISIT, [facility], [address], [place], [place], [address], [place] tel:[phone] [facility] pain (chief complaint)an xiety1 (chief complaint)HL P (chief complaint)re nal (chief complaint) HyperlipidemiaRen al diseaseChronic pain syndromeAnxiolyti c dependence 0 Rogelio Frias [address], [place], [place], [address] , [place]. tel:[phone] OFFICE/OUTPA TIENT VISIT, [facility], [address], [place], [place], [address], [place] tel:[phone] [facility] pain (chief complaint)an xiety1 (chief complaint) Chronic pain syndromeAnxiolyti c dependence Oct-0 2-202 0 Rogelio Mora. [address], [place], [place], [address] , [place]. [phone] OFFICE/OUTPA TIENT VISIT, [facility], [address], [place], [place], [address], [place] tel:[phone] [facility] pain (chief complaint)an xiety1 (chief complaint)PT H (chief complaint)CO PD1 (chief complaint) Chronic pain syndromeAnxiolyti c dependenceHyperpa rathyroidism, unspecifiedEmphys mary Sep-0 4202 0 Rogelio Mora. [address], [place], [place], [address] , [place]. [phone] OFFICE/OUTPA TIENT VISIT, [facility], [address] [place], [address], [place] tel:[phone] [facility] pain (chief complaint)an xiety1 (chief complaint)an xiety1 (chief complaint)PT H (chief complaint) Chronic pain syndromeAnxiolyti c dependenceHyperli pidemiaHyperparat hyroidism, unspecified Oct-0 7 0 Rogelio Mora. [address], [place], [place], [address] , [place]. [phone] OFFICE/OUTPA TIENT VISIT, [facility], [address] [place], [place], [address], [place] tel:[phone] [facility] pain (chief complaint)an xiety1 (chief complaint)ca lcium1 (chief complaint)CO DP1 (chief complaint) HypocalcemiaHyper parathyroidism, unspecifiedVitami n D deficiency, unspecifiedChroni c pain syndromeAnxiolyti c dependenceEmphyse ma 0 9202 0 Rogelio Mora. [address], [place], [place], [address] , [place]. tel:[phone] OFFICE/OUTPA TIENT VISIT, [facility], [address] [place], [address], tel:[phone] [facility] renal1 (chief complaint)DM (chief complaint)HL P (chief complaint)lo w daniel (chief complaint)pa in (chief complaint) HyperlipidemiaChr onic kidney disease, stage 3 (moderate)Type 2 diabetes mellitus without complicationsChro gallo pain syndromeAnxiolyti c dependenceHypocal cemiaOther disorders of phosphorus metabolism 0 Rogelio Mora. [address], [place], [place], [address] , [place]. 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 [address], [place], [place], [address] , [place]. tel:[phone] OFFICE/OUTPA TIENT VISIT, EST [facility], [address] [place], [address], [place] tel:[phone] [facility] pain (chief complaint)an xiety1 (chief complaint) Chronic pain syndromeAnxiolyti c dependence 0 Rogelio Mora. [address], [place], [place], [address] , [place]. tel:[phone] OFFICE/OUTPA TIENT VISIT, EST [facility], [address] [place], [address], [place] tel:[phone] [facility] DM (chief complaint)HL P (chief complaint)ph osphorus1 (chief complaint)pa in (chief complaint)an xiety1 (chief complaint) Chronic pain syndromeHyperlipi demiaAnxiolytic dependenceHypocal cemiaType 2 diabetes mellitus with diabetic nephropathy 0 Rogelio Mora. [address], [place], [place], [address] , . tel:[phone] Referring Provider: Shanda Ham [address], [place], [place], [address]. tel:[phone] OFFICE/OUTPA TIENT VISIT, [facility], [address], [place], [place], [address], [place] tel:[phone] [facility] pain1 (chief complaint)an xiety1 (chief complaint)HL P (chief complaint)af ib (chief complaint)DM (chief complaint) HyperlipidemiaChr onic pain syndromeAtrial fibrillationAnxio lytic dependenceType 2 diabetes mellitus without complications 0 Rogelio Frias [address], [place], [place], [address] , [place]. tel:[phone] Referring Provider: Shanda Ham [address], [place], [place], [address]. tel:[phone] OFFICE/OUTPA TIENT VISIT, [facility], [address], [place], [place], [address], [place] tel:[phone] [facility] pain (chief complaint)an xiety1 (chief complaint)HT N (chief complaint) Chronic pain syndromeEssential (primary) hypertensionAnxio lytic dependence 0 Rogelio Frias [address], [place], [place], [address] , [place]. tel:[phone] Referring Provider: Shanda Ham [address], [place], [place], [address]. tel:[phone] OFFICE/OUTPA TIENT VISIT, [facility], [address], [place], [place], [address], [place] tel:[phone] [facility] pain (chief complaint)an xiety1 (chief complaint)to bacco1 (chief complaint)CO PD1 (chief complaint) Chronic pain syndromeAnxiolyti c dependenceEmphyse maSolitary lung noduleChronic kidney disease, stage 3 (moderate) Feb-2 0-201 9 Mercado Morgan. [address], [place], [place], [address] , [place]. tel:[phone] OFFICE/OUTPA TIENT VISIT, [facility], [address], [place], [place], [address], [place] tel:[phone] [facility] anxiety1 (chief complaint)ch ronic pain (chief complaint)HL P (chief complaint)to bacco1 (chief complaint) Chronic pain syndromeHyperlipi demiaAnxiolytic dependenceTobacco use 9 Rogelio Mora. [address], [place], [place], [address] , [place]. tel:[phone] Referring Provider: Sh[address], [place], [place], [address]. tel:[phone] OFFICE/OUTPA TIENT VISIT, [facility], [address], [place], [place], [address], [place] tel:[phone] [facility] chronic pain1 (chief complaint)an xiety1 (chief complaint)HL P. (chief complaint)re nal CA (chief complaint)sk in1 (chief complaint) Chronic pain syndromeAnxiolyti c dependenceMaligna nt neoplasm of right renal pelvisHyperlipide miaMelanoma 9 Rogeilo Frias [address], [place], [place], [address] , [place]. tel:[phone] Referring Provider: [address], [place], [place], [address]. tel:[phone] OFFICE/OUTPA TIENT VISIT, [facility], [address], [place], [place], [address], [place] tel:[phone] [facility] chronic pain1 (chief complaint)an xiety1 (chief complaint)HL P (chief complaint) Body mass index (BMI) 33.0-33.9, adultAnxiolytic dependenceChronic pain syndromeHyperlipi demiaAcquired cyst of kidney 9 Rogelio Mora. [address], [place], [place], [address] , . tel:[phone] Referring Provider: Shanda Ham [facility] A, [place], [place], [address]. tel:[phone] OFFICE/OUTPA TIENT VISIT, [facility], [address], [place], [place], [address], [place] [phone] [facility] chronic pain1 (chief complaint)an xiety1 (chief complaint)HL P (chief complaint)re nal1 (chief complaint)DM (chief complaint) Chronic pain syndromeType 2 diabetes mellitus with diabetic nephropathyChroni c kidney disease, stage 3 (moderate)Hyperli pidemiaAnxiolytic dependence 9 Rogelio Frias [address], [place], [place], [address] , [place]. [phone] Referring Provider: Shanda Ham [facility] A, [place], [place], [address]. tel:[phone] OFFICE/OUTPA TIENT VISIT, [facility], [address] [place], [address], [place] [phone] [facility] chronic pain1 (chief complaint)an xiety1 (chief complaint) Chronic pain syndromeAnxiolyti c dependenceType 2 diabetes mellitus with diabetic nephropathy 9 [facility]elio Frias [address] [facility] [place], [place], [address] , [place]. tel:[phone] Referring Provider: Shanda Ham [address], [place], [place], [address]. tel:[phone] OFFICE/OUTPA TIENT VISIT, [facility], [address], [address], [place] tel:[phone] [facility] anxiety1 (chief complaint)ch ronic pain1 (chief complaint)af ib1 (chief complaint) Chronic pain syndromeAnxiolyti c dependenceAtrial fibrillation 9 Rogelio Frias [address], [place], [place], [address] , [place]. tel:[phone] Referring Provider: Shanda Ham [address], [place], [place], [address]. tel:[phone] OFFICE/OUTPA TIENT VISIT, [facility], [address], [place], [place], [address], [place] tel:[phone] [facility] chronic pain (chief complaint)an xiety1 (chief complaint)CO PD1 (chief complaint) Chronic pain syndromeAnxiolyti c dependenceEmphyse ma 9 Rogelio Mora. [address], [place], [place], [address] , [place]. tel:[phone] Referring Provider: Shanda Ham [address], [place], [place], [address]. tel:[phone] OFFICE/OUTPA TIENT VISIT, [facility], [address], [place], [place], [address], [place] tel:[phone] [facility] HLP (chief complaint)DM (chief complaint)an xiety1 (chief complaint)pa in (chief complaint) Body mass index (BMI) 34.0-34.9, adultType 2 diabetes mellitus with diabetic nephropathyHyperl ipidemiaAnxiolyti c dependenceChronic pain syndrome 9 Rogelio Mora. [address], [place], [place], [address] , [place]. tel:[phone] Referring Provider: Shanda Ham [address], [place], [place], [address]. tel:[phone] OFFICE/OUTPA TIENT VISIT, [facility], [address], [place], [place], [address], [place] tel:[phone] [facility] Physical (chief complaint) Encounter for general adult medical exam w abnormal findingsType 2 diabetes mellitus with diabetic nephropathyHyperl ipidemiaChronic pain syndrome 9 Rogelio Mora. [address], [place], [place], [address] , [place]. tel:[phone] Referring Provider: Shanda Ham [address], [place], [place], [address]. tel:[phone] OFFICE/OUTPA TIENT VISIT, [facility], [address], [place], [place], [address], [place] tel:[phone] [facility] chronic pain (chief complaint)an xiety1 (chief complaint) Chronic pain syndromeAnxiolyti c dependence 9 Rogelio Mora. [address], [place], [place], [address] , [place]. tel:[phone] OFFICE/OUTPA TIENT VISIT, [facility], [address], [place], [place], [address], [place] tel:[phone] [facility] DM (chief complaint)HL P (chief complaint)ch ronic pain1 (chief complaint)an xiety1 (chief complaint) Chronic pain syndromeType 2 diabetes mellitus with diabetic nephropathyHyperl ipidemiaEssential (primary) hypertensionAnxio lytic dependence Rogelio Mora. [address], [place], [place], [address] , [place]. tel:[phone] Referring Provider: Shanda [address], [place], [place], [address]. tel:[phone] OFFICE/OUTPA TIENT VISIT, [facility], [address] [place], [address], [place] tel:[phone] [facility] chronic pain1 (chief complaint)an xiety1 (chief complaint)co lon1 (chief complaint)DM (chief complaint) Chronic pain syndromeType 2 diabetes mellitus with diabetic nephropathyChroni c kidney disease, stage 3 (moderate)Anxioly tic dependenceEncount er for screening for malignant neoplasm of colon 9 Rogelio Mora. [address], [place], [place], [address] , [place]. tel:[phone] Referring Provider: Shanda Ham [address], [place], [place], [address]. tel:[phone] OFFICE/OUTPA TIENT VISIT, [facility], [address], [place], [place], [address], [place] tel:[phone] [facility] HLP (chief complaint)an xiety1 (chief complaint)ba ck pain1 (chief complaint)DM 1 (chief complaint) Chronic pain syndromeType 2 diabetes mellitus with diabetic nephropathyAnxiol ytic dependenceHyperli pidemia 8 Rogelio Frias [address], [place], [place], [address] , [place]. [phone] Referring Provider: Morgan Mercado [address] [place] [address] A, [place], [place], [address]. tel:[phone] OFFICE/OUTPA TIENT VISIT, [facility], [address], [place], [place], [address], [place] tel:[phone] [facility] chronic pain1 (chief complaint)an xiety1 (chief complaint)HT N (chief complaint)re nal disease1 (chief complaint) Anxiolytic dependenceChronic pain syndromeEssential (primary) hypertensionChron ic kidney disease, stage 3 (moderate) 8 Rogelio Frias [address], [place], [place], [address] , [place]. [phone] OFFICE/OUTPA TIENT VISIT, [facility], [address] [place], [address], [place] tel:[phone] [facility] HLP (chief complaint)an xiety1 (chief complaint)ba ck apin1 (chief complaint)HT N (chief complaint) HyperlipidemiaChr onic pain syndromeAnxiolyti c dependenceEssenti al (primary) hypertensionEncou nter for screening for malignant neoplasm of colon 8 Rogelio Frias [address], [place], [place], [address] , [place]. [phone] Referring Provider: Shanda [address], [place], [place], [address]. tel:[phone] OFFICE/OUTPA TIENT VISIT, [facility], [address], [place], [place], [address], [place] tel:[phone] [facility] COPD1 (chief complaint)DM (chief complaint)ba ck pain1 (chief complaint)an xiety1 (chief complaint) EmphysemaViral infectionChronic pain syndromeAnxiolyti c dependenceType 2 diabetes mellitus with diabetic nephropathy 8 Rogelio Mora. [address], [place], [place], [address] , [place]. tel:[phone] Referring Provider: Morgan Mercado [address], [place], [place], [address]. tel:[phone] OFFICE/OUTPA TIENT VISIT, [facility], [address], [place], [place], [address], [place] tel:[phone] [facility] COPD1 (chief complaint)an xiety1 (chief complaint)ba ck pain1 (chief complaint)to bacco1 (chief complaint) Body mass index (BMI) 35.0-35.9, adultCOPD with exacerbationTobac co useAnxiolytic dependenceChronic pain syndrome Oct-3 8 Rogelio Mora. [address], [place], [place], [address] , [place]. tel:[phone] Referring Provider: Morgan Mercado [address], [place], [place], [address]. tel:[phone] OFFICE/OUTPA TIENT VISIT, [facility], [address], [address], [place] tel:[phone] [facility] HLP (chief complaint)ba ck pain1 (chief complaint)an xiety1 (chief complaint)to bacco1 (chief complaint) EmphysemaChronic pain syndromeHyperlipi demiaAnxiolytic dependenceMaligna nt neoplasm of right renal pelvis Oct-0 8 Rogelio Mora. [address], [place], [place], [address] , [place]. tel:[phone] OFFICE/OUTPA TIENT VISIT, [facility], [address], [place], [place], [address], [place] tel:[phone] [facility] chronic pain (chief complaint)DM 1 (chief complaint)an xiety1 (chief complaint)HL P (chief complaint) HyperlipidemiaTyp e 2 diabetes mellitus with diabetic nephropathyChroni c pain syndromeAtrial fibrillationAnxio lytic dependence Sep-0 2 8 Rogelio Mora. [address], [place], [place], [address] , [place]. tel:[phone] Referring Provider: Shanda [address], [place], [place], [address]. tel:[phone] OFFICE/OUTPA TIENT VISIT, [facility], [address], [place], [place], [address], [place] tel:[phone] [facility] DM (chief complaint)re nal1 (chief complaint)HL P (chief complaint)to bacco1 (chief complaint)ba ck apin1 (chief complaint) Type 2 diabetes mellitus with diabetic nephropathyHyperl ipidemiaGoutChron ic pain syndromeTobacco use July-0 8 Rogelio Mora. [address], [place], [place], [address] , [place]. tel:[phone] Referring Provider: Shanda Ham [facility] [address], [place], [place], [address]. tel:[phone] OFFICE/OUTPA TIENT VISIT, [facility], [address], [place], [place], [address], [place] tel:[phone] [facility] chronic pain (chief complaint)an xiety1 (chief complaint)to bacco1 (chief complaint) Body mass index (BMI) 33.0-33.9, adultChronic pain syndromeTobacco useAnxiolytic dependence Jun-0 8 Rogelio Mora. [address], [place], [place], [address] , [place]. tel:[phone] Referring Provider: Shanda [address], [place], [place], [address]. tel:[phone] OFFICE/OUTPA TIENT VISIT, [facility], [address], [place], [place], [address], [place] tel:[phone] [facility] Physical (chief complaint) Encounter for general adult medical exam w abnormal findingsHyperlipi demiaEssential (primary) hypertensionChron ic pain syndrome 8 Rogelio Mora. [address], [place], [place], [address] , [place]. tel:[phone] Referring Provider: Shanda Ham [facility] [address], [place], [place], [address]. tel:[phone] OFFICE/OUTPA TIENT VISIT, [facility], [address], [place], [place], [address], [place] tel:[phone] [facility] anxiety1 (chief complaint)ch ronic pain1 (chief complaint)an xiety1 (chief complaint)HL P (chief complaint)Go ut1 (chief complaint)si ck1 (chief complaint) HyperlipidemiaTyp e 2 diabetes mellitus without complicationsAcut e bronchitisGout 8 Rogelio Mora. [address], [place], [place], [address] , [place]. tel:[phone] Referring Provider: Shanda Ham, [place], [address]. tel:[phone] OFFICE/OUTPA TIENT VISIT, [facility], [address], [place], [place], [address], [place] tel:[phone] [facility] sick1 (chief complaint)ch ronic pain (chief complaint)an xiety1 (chief complaint)HT N (chief complaint) Acute bronchitisAnxioly tic dependenceOther spondylosis, lumbar regionEssential (primary) hypertension 8 Rogelio Mora. [address], [place], [place], [address] , [place]. tel:[phone] Referring Provider: Shanda [address], [place], [place], [address]. tel:[phone] OFFICE/OUTPA TIENT VISIT, [facility], [address], [place], [address], [place] tel:[phone] [facility] back pain1 (chief complaint)an xiety1 (chief complaint)CO PD1 (chief complaint)HT N (chief complaint) Essential (primary) hypertensionEmphy semaChronic pain syndromeAtrial fibrillation 7 Rogelio Frias [address], [place], [place], [address] , [place]. tel:[phone] Referring Provider: Morgan Mercado [address], [place], [place], [address]. tel:[phone] OFFICE/OUTPA TIENT VISIT, [facility], [address], [place], [place], [address], [place] tel:[phone] [facility] anxiety1 (chief complaint)ch ronic pain (chief complaint)HT n (chief complaint) Essential (primary) hypertensionChron ic pain syndrome 7 Rogelio Frias [address], [place], [place], [address] , [place]. tel:[phone] Referring Provider: Shanda Ham [address], [place], [place], [address]. tel:[phone] OFFICE/OUTPA TIENT VISIT, [facility], [address], [place], [place], [address], [place] tel:[phone] [facility] back pain1 (chief complaint)an xiety1 (chief complaint)he p C (chief complaint)DM (chief complaint)HL P (chief complaint) Type 2 diabetes mellitus without complicationsChro gallo pain syndromeAnxiolyti c dependenceHyperli pidemia 7 Rogelio Frias [address], [place], [place], [address] , [place]. tel:[phone] Referring Provider: Shanda [address], [place], [place], [address]. tel:[phone] OFFICE/OUTPA TIENT VISIT, [facility], [address], [place], [place], [address], [place] [phone] [facility] chronic pain1 (chief complaint)Af ib1 (chief complaint)an xiety1 (chief complaint)HL P (chief complaint) Chronic pain syndromeHyperlipi demiaAnxiolytic dependenceAtrial fibrillation 7 Rogelio Mora. [address], [place], [place], [address] , [place]. tel:[phone] Referring Provider: Morgan Mercado, [address], [place], [place], [address]. tel:[phone] OFFICE/OUTPA TIENT VISIT, [facility], [address], [place], [place], [address], [place] tel:[phone] [facility] anxiety1 (chief complaint)ch ronic pain (chief complaint)me lanoma1 (chief complaint)HT N (chief complaint) Chronic pain syndromeMelanomaE ssential (primary) hypertensionLiver disease, unspecified 7 Rogelio Mora. [address], [place], [place], [address] , [place]. [phone] Referring Provider: Morgan Mercado [address], [place], [place], [address]. tel:[phone] OFFICE/OUTPA TIENT VISIT, [facility], [address] [place], [address], [place] tel:[phone] [facility] melanoma1 (chief complaint)an xiety1 (chief complaint)ba ck pain1 (chief complaint)li reji lesion1 (chief complaint) MelanomaChronic pain syndromeLiver diseaseMalignant neoplasm of right renal pelvis 7 Rogelio Mora. [address], [address], [place], [place], [address] , [place]. tel:[phone] Referring Provider: Morgan Mercado [address], [place], [place], [address]. tel:[phone] OFFICE/OUTPA TIENT VISIT, [facility], [address], [place], [place], [address], [place] tel:[phone] [facility] liver lesion1 (chief complaint)ba ck pain1 (chief complaint)HT N (chief complaint)sk in1 (chief complaint) Liver diseaseEssential (primary) hypertensionNevus , non-neoplasticChr onic pain syndrome 7 Rogelio Mora. [address], [address], [place], [place], [address] , [place]. tel:[phone] Referring Provider: Morgan Mercado, [address], [place], [place], [address]. tel:[phone] OFFICE/OUTPA TIENT VISIT, [facility], [address], [place], [place], [address], [place] tel:[phone] [facility] sick (chief complaint)DM (chief complaint)ba ck pain1 (chief complaint)HT N (chief complaint) Acute bronchitis, unspecifiedType 2 diabetes mellitus without complicationsChro gallo pain syndromeEssential (primary) hypertension 7 Rogelio Mora. [address], [address], [place], [place], [address] , [place]. tel:[phone] Referring Provider: Morgan Mercado [address], [place], [place], [address]. tel:[phone] OFFICE/OUTPA TIENT VISIT, [facility], [address], [place], [address], [place] tel:[phone] [facility] back pain1 (chief complaint)Af ib (chief complaint)li reji lesion1 (chief complaint)re nal CA (chief complaint) Liver disease, unspecifiedChroni c pain syndromeParoxysma l atrial fibrillation 7 Rogelio Mora. [address], [place], [place], [address] , [place]. tel:[phone] OFFICE/OUTPA TIENT VISIT, [facility], [address], [place], [place], [address], [place] tel:[phone] [facility] HLP (chief complaint)DM (chief complaint)re nal1 (chief complaint)ba ck pain1 (chief complaint) Type 2 diabetes mellitus with hyperglycemiaProt einuriaHyperlipid emiaChronic pain syndrome 7 Rogel[address], [place], [place], [address] , [place]. tel:[phone] OFFICE/OUTPA TIENT VISIT, [facility], [address], [place], [place], [address], [place] tel:[phone] [facility] COPD1 (chief complaint)dM 1 (chief complaint)HL P (chief complaint)ba ck pain1 (chief complaint) COPDChronic pain syndromeMixed hyperlipidemiaTyp e 2 diabetes mellitus without complications Rogelio Frias [address], [address], [place], [place], [address] , [place]. tel:[phone] Referring Provider: Shanda Ham [address], [place], [place], [address]. tel:[phone] OFFICE/OUTPA TIENT VISIT, [facility], [address] [place], [address], tel:[phone] [facility] back pain1 (chief complaint)to bacco (chief complaint)re nal CA (chief complaint) Chronic pain syndromeTobacco use 7 Rogelio Frias [address], [address], [place], [address] , [place]. [phone] Referring Provider: Shanda Ham [address], [place], [place], [address]. tel:[phone] OFFICE/OUTPA TIENT VISIT, [facility], [address] [place], [address], [place] tel:[phone] [facility] COPD1 (chief complaint)ba ck apin1 (chief complaint)DM (chief complaint) Chronic pain syndromeType 2 diabetes mellitus without complicationsCOPD Tobacco use 7 Mercado Morgan. [address], [address], [place], [place], [address] , [place]. tel:[phone] Referring Provider: Shanda [address], [place], [place], [address]. tel:[phone] OFFICE/OUTPA TIENT VISIT, [facility], [address], [place], [place], [address], [place] tel:[phone] [facility] sick1 (chief complaint)DM (chief complaint)HL P (chief complaint)re nal (chief complaint) Type 2 diabetes mellitus without complicationsMixe d hyperlipidemiaAcu te upper respiratory infection, unspecifiedChroni c pain syndrome 6 Rogelio Mora. [address], [address], [place], [place], [address] , [place]. tel:[phone] Referring Provider: Shanda [address], [place], [place], [address]. tel:[phone] OFFICE/OUTPA TIENT VISIT, [facility], [address], [place], [place], [address], [place] tel:[phone] [facility] HLP (chief complaint)ba ck pain1 (chief complaint)CO Pd1 (chief complaint)go ut1 (chief complaint) Mixed hyperlipidemiaCOP DGoutType 2 diabetes mellitus without complications 6 Rogelio Frias [address], [address], [place], [address] , [place]. tel:[phone] Referring Provider: Shanda [address], [place], [address]. tel:[phone] OFFICE/OUTPA TIENT VISIT, [facility], [address], [place], [place], [address], [place] tel:[phone] [facility] renal neoplasm (chief complaint)re nal mass1 (chief complaint)fa tt liver (chief complaint) Liver diseaseMalignant neoplasm of right renal pelvisFatty liver 6 Rogelio Frias [address], [address], [place], [address] , [place]. tel:[phone] Referring Provider: Shanda [address], [place], [place], [address]. tel:[phone] OFFICE/OUTPA TIENT VISIT, [facility], [address], [place], [place], [address], [place] tel:[phone] [facility] back pain1 (chief complaint)CO PD (chief complaint)li reji lesion1 (chief complaint)vi tati D (chief complaint) COPDLiver diseaseChronic pain syndromeVitamin D deficiency, unspecified 0 6 Rogelio Mora. [address], [address], [place], [place], [address] , [place]. [phone] Referring Provider: Shanda [address], [place], [place], [address]. tel:[phone] OFFICE/OUTPA TIENT VISIT, [facility], [address], [place], [address], [place] tel:[phone] [facility] chronic pain (chief complaint)ab d pain1 (chief complaint)li reji lesion1 (chief complaint) Liver diseaseChronic pain syndrome 6 Rogelio Mora. [address], [address], [place], [place], [address] , [place]. [phone] Referring Provider: Shanda Ham [facility] A, [place], [place], [address]. tel:[phone] OFFICE/OUTPA TIENT VISIT, [facility], [address], [place], [place], [address], [place] tel:[phone] [facility] DM (chief complaint)lo w renal (chief complaint)HL P1 (chief complaint)ab d pain1 (chief complaint) Type 2 diabetes mellitus without complicationsMixe d hyperlipidemiaAbd ominal painChronic pain syndrome 6 Rogelio Mora. [address], [address], [place], [place], [address] , [place]. tel:[phone] Referring Provider: Shanda [address], [place], [place], [address]. tel:[phone] OFFICE/OUTPA TIENT VISIT, [facility], [address], [place], [place], [address], [place] tel:[phone] [facility] HLP (chief complaint)ba ck pain1 (chief complaint)DM 1 (chief complaint) Type 2 diabetes mellitus with diabetic nephropathyMixed hyperlipidemiaChr onic pain syndrome 6 Rogelio Mora. [address], [place], [place], [address] , [place]. [phone] Referring Provider: Shanda Ham [facility], [place], [place], [address]. tel:[phone] OFFICE/OUTPA TIENT VISIT, [facility], [address] [facility] [place], [address], [place] tel:[phone] [facility] back pain1 (chief complaint)af ib (chief complaint)re nal CA (chief complaint)HT N (chief complaint) Chronic atrial fibrillationEssen tial (primary) hypertensionChron ic pain syndromeMalignant neoplasm of left renal pelvis 6 Rogelio Mora. [address], [facility] A, [place], [place], [address] , [place]. [phone] Referring Provider: Shanda Ham [facility], [place], [place], [address]. tel:[phone] OFFICE/OUTPA TIENT VISIT, [facility], [address], [place], [place], [address], [place] tel:[phone] [facility] DM (chief complaint)lo w renal (chief complaint)HL P (chief complaint)af ib1 (chief complaint)CO PD (chief complaint) Chronic atrial fibrillationMixed hyperlipidemiaTyp e 2 diabetes mellitus without complicationsChro gallo pain syndrome 6 Rogelio Mora. [address], [address], [place], [place], [address] , [place]. [phone] Referring Provider: Shanda Ham [facility] A, [place], [place], [address]. tel:[phone] OFFICE/OUTPA TIENT VISIT, [facility], [address], [place], [place], [address], [place] tel:[phone] [facility] LBP (chief complaint)HT N (chief complaint)HL P (chief complaint)DM (chief complaint) Essential (primary) hypertensionChron ic pain syndromeMixed hyperlipidemiaTyp e 2 diabetes mellitus with diabetic nephropathy 6 Rogelio Mora. [address], [address], [place], [place], [address] , [place]. [phone] Referring Provider: Shanda Ham [facility] [address], [place], [place], [address]. tel:[phone] PREV VISIT, [facility], AGE 40-64 [facility], [address], [place], [place], [address], [place] tel:[phone] [facility] physical (chief complaint) Encntr for general adult medical exam w/o abnormal findings 6 Rogelio Mora. [address], [facility] A, [place], [place], [address] , [place]. tel:[phone] Referring Provider: Shanda Ham [facility] A, [place], [place], [address]. tel:[phone] OFFICE/OUTPA TIENT VISIT, [facility], [address] [place], [address], [place] tel:[phone] [facility] reanl disease (chief complaint)he maturia (chief complaint)DM (chief complaint)HL P (chief complaint) Type 2 diabetes mellitus with diabetic nephropathyMixed hyperlipidemiaChr onic pain syndrome 6 Rogelio Mora. [address], [place], [place], [address] , [place]. tel:[phone] Referring Provider: Shanda Ham [facility] A, [place], [place], [address]. tel:[phone] OFFICE/OUTPA TIENT VISIT, [facility], [address], [place], [place], [address], [place] tel:[phone] [facility] sore throat1 (chief complaint)HT N (chief complaint) Essential (primary) hypertensionAcute bronchitis, unspecified 6 Rogelio Mora. [address], [address], [place], [place], [address] , [place]. tel:[phone] Referring Provider: Morgan Mercado, [address], [place], [place], [address]. tel:[phone] OFFICE/OUTPA TIENT VISIT, [facility], [address], [place], [place], [address], [place] tel:[phone] [facility] back pain1 (chief complaint)HL P1 (chief complaint)Go ut (chief complaint)HT N1 (chief complaint) Chronic pain syndromeEssential (primary) hypertensionGoutM ixed hyperlipidemia 6 Rogelio Mora. [address], [address], [place], [place], [address] , [place]. tel:[phone] Referring Provider: Shanda Ham [address], [place], [place], [address]. tel:[phone] OFFICE/OUTPA TIENT VISIT, [facility], [address], [place], [place], [address], [place] tel:[phone] [facility] back pain1 (chief complaint)Af ib1 (chief complaint) Other spondylosis, lumbar regionChronic atrial fibrillation 5 Rogelio Mora. [address], [address], [place], [place], [address] , [place]. tel:[phone] Referring Provider: Shanda [address], [place], [place], [address]. tel:[phone] OFFICE/OUTPA TIENT VISIT, [facility], [address], [place], [place], [address], [place] tel:[phone] [facility] COPD1 (chief complaint)ba ck pain1 (chief complaint)DM 1 (chief complaint)HL P1 (chief complaint) Mixed hyperlipidemiaTyp e 2 diabetes mellitus with diabetic nephropathyOther spondylosis, lumbar regionOther emphysema 5 Rogelio Mora. [address], [address], [place], [place], [address] , [place]. tel:[phone] Referring Provider: Morgan Mercado, [address], [place], [place], [address]. tel:[phone] OFFICE/OUTPA TIENT VISIT, [facility], [address], [place], [place], [address], [place] tel:[phone] [facility] HTN1 (chief complaint)fredrick mbago1 (chief complaint)CO PD1 (chief complaint)HL P1 (chief complaint)DM 1 (chief complaint) Essential (primary) hypertensionMixed hyperlipidemiaOth er spondylosis, lumbar regionType 2 diabetes mellitus w/o complication 5 Rogelio Mora. [address], [address], [place], [place], [address] , [place]. tel:[phone] Referring Provider: Shanda [address], [place], [place], [address]. tel:[phone] OFFICE/OUTPA TIENT VISIT, [facility], [address], [place], [place], [address], [place] tel:[phone] [facility] Renal CA (chief complaint)CO PD (chief complaint)DM 1 (chief complaint)ba ck pain1 (chief complaint) Other emphysemaMalignan t neoplasm of left renal pelvisOther spondylosis, lumbar regionType 2 diabetes mellitus w/ diabetic chronic kidney diseaseChronic kidney disease, stage 3 (moderate) 5 Rogelio Mora. [address], [address], [place], [place], [address] , [place]. tel:[phone] Referring Provider: Shanda [address], [place], [place], [address]. tel:[phone] OFFICE/OUTPA TIENT VISIT, [facility], [address], [place], [place], [address], [place] tel:[phone] [facility] Proteinuria (chief complaint)HL P (chief complaint)DM (chief complaint) Dietary surveillance and counselingBrittle diabetesProteinur iaOther and unspecified hyperlipidemiaLum bago 5 Rogelio Mora. [address], [address], [place], [place], [address] , [place]. [phone] Referring Provider: Shanda [address], [place], [place], [address]. tel:[phone] OFFICE/OUTPA TIENT VISIT, [facility], [address], [place], [place], [address], [place] tel:[phone] [facility] HTN (chief complaint)dM (chief complaint)re nal disease (chief complaint)re anl CA (chief complaint) Dietary surveillance and counselingLumbago Unspecified essential hypertensionProte inuriaBrittle diabetes 5 Rogelio Frias [address], [place], [place], [address] , [place]. [phone] Referring Provider: Shanda [address], [place], [place], [address]. tel:[phone] OFFICE/OUTPA TIENT VISIT, [facility], [address], [place], [place], [address], [place] tel:[phone] [facility] back pain (chief complaint)CO PD (chief complaint)HT N (chief complaint) LumbagoUnspecifie d essential hypertensionCOPDD ietary surveillance and counseling 5 Rogelio Frias [address], [address], [place], [place], [address] , [place]. tel:[phone] Referring Provider: Shanda [address], [place], [place], [address]. tel:[phone] OFFICE/OUTPA TIENT VISIT, [facility], [address], [place], [place], [address], [place] tel:[phone] [facility] COPD (chief complaint)ba ck pain (chief complaint)DM (chief complaint) Dietary surveillance and counselingBrittle diabetesUnspecifi ed essential hypertensionLumba goCOPD 5 Rogelio Mora. [address], [address], [place], [place], [address] , [place]. tel:[phone] Referring Provider: Shanda [address], [place], [place], [address]. tel:[phone] OFFICE/OUTPA TIENT VISIT, EST [facility], [address], [place], [place], [address], [place] tel:[phone] [facility] back pain (chief complaint)SO B (chief complaint)af ib (chief complaint) Dietary surveillance and counselingLumbago Respiratory abnormality, unspecifiedAtrial FibrillationMalig nant Neoplasm, Kidney 5 Rogelio Frias [address], [address], [place], [place], [address] , [place]. tel:[phone] Referring Provider: Shanda [address], [place], [place], [address]. tel:[phone] OFFICE/OUTPA TIENT VISIT, EST [facility], [address], [place], [place], [address], [place] tel:[phone] [facility] back pain (chief complaint)HT N (chief complaint)HL P (chief complaint) Dietary surveillance and counselingAtrial FibrillationHyper tension, UnspecifiedMalign ant Neoplasm, KidneyLumbago 5 Rogelio Frias [address], [address], [place], [place], [address] , [place]. [phone] Referring Provider: Shanda Ham [address], [place], [place], [address]. tel:[phone] PREV VISIT, EST, AGE 40-64 [facility], [address], [place], [place], [address], [place] tel:[phone] [facility] Physical (chief complaint) Routine Medical ExamRoutine Medical Exam 5 Mercado Morgan. [address], [address], [place], [place], [address] , [place]. tel:[phone] Referring Provider: Shnada [address], [place], [place], [address]. tel:[phone] OFFICE/OUTPA TIENT VISIT, [facility], [address], [place], [place], [address], [place] [phone] [facility] back pain (chief complaint)re ctal CA (chief complaint)CA D (chief complaint) Dietary surveillance and counselingAtrial FibrillationOpioi d type dependence, unspecified useMalignant Neoplasm, KidneyScreening for malignant neoplasms of the prostate 5 Rogelio Mora. [address], [address], [place], [place], [address] , [place]. [phone] Referring Provider: Shanda Ham [facility] [place], [address]. tel:[phone] OFFICE/OUTPA TIENT VISIT, [facility], [address], [place], [place], [address], [place] tel:[phone] [facility] DM (chief complaint)HL P (chief complaint)CA D (chief complaint)ba ck pain (chief complaint) Dietary surveillance and counselingOther and unspecified hyperlipidemiaDia betes Mellitus, Adult Onset, UncontrolledCAD, Cheesh-Na VesselLumbago 5 Rogelio Mora. [address], [place], [place], [address] , [place]. [phone] Referring Provider: Shanda Ham [address], [place], [place], [address]. tel:[phone] OFFICE/OUTPA TIENT VISIT, [facility], [address] [place], [address], [place] tel:[phone] [facility] back pain (chief complaint)re nal disease (chief complaint)HL P (chief complaint)DM (chief complaint) Dietary surveillance and counselingOther and unspecified hyperlipidemiaCAD , Cheesh-Na VesselDiabetes Mellitus, Adult Onset, UncontrolledLumba go 4 Rogelio Mora. [address] [facility] A, [place], [place], [address] , [place]. tel:[phone] Referring Provider: Morgan Mercado, Shanda [facility], [place], [place], [address]. tel:[phone] OFFICE/OUTPA TIENT VISIT, [facility], [address] [place] [address] [facility] [place], [place], [address], tel:[phone] [facility] DM (chief complaint)ba ck pain (chief complaint)HT N (chief complaint) Dietary surveillance and counselingDiabete s Mellitus, Adult Onset, UncontrolledAtria l FibrillationLumba goHypertension, Unspecified 4 Rogelio Mora. [address], [facility] [address], [place], [place], [address] , [place]. tel:[phone] Referring Provider: Shanda Ham [place], [place], [address]. tel:[phone] OFFICE/OUTPA TIENT VISIT, [facility], [address] [place], [address], [place] tel:[phone] [facility] DM (chief complaint)re nal disease (chief complaint)TG (chief complaint)ur ic acid (chief complaint)ba ck pain (chief complaint) Dietary surveillance and counselingDiabete s Mellitus, Adult Onset, UncontrolledOther and unspecified hyperlipidemiaCAD , Cheesh-Na VesselGout, unspecified 4 Rogelio Mora. [address] [facility] [place] [address] , [place]. tel:[phone] Referring Provider: Shanda Ham [place], [place], [address]. tel:[phone] OFFICE/OUTPA TIENT VISIT, [facility], [address] [place], [address], [place] tel:[phone] [facility] HTN (chief complaint)HL P (chief complaint)go ut (chief complaint)wh eezing (chief complaint) Dietary surveillance and counselingHyperte nsion, UnspecifiedGout, unspecifiedOther and unspecified hyperlipidemiaBro nchitis, Acute 4 Rogelio Mora. [address], [place], [place], [address] , [place]. [phone] Referring Provider: Shanda Ham [address], [place], [place], [address]. tel:[phone] OFFICE/OUTPA TIENT VISIT, [facility], [address] [place], [address], [place] [phone] [facility] back pain (chief complaint)HL P (chief complaint) Dietary surveillance and counselingLumbago Other and unspecified hyperlipidemiaHyp ertension, Unspecified 4 Rogelio Mora. [address], [place], [place], [address] , [place]. [phone] Referring Provider: Shanda Ham [facility] [place], [address]. tel:[phone] OFFICE/OUTPA TIENT VISIT, [facility], [address] [place], [address], [place] tel:[phone] [facility] DM (chief complaint)ki dney disease (chief complaint)TG (chief complaint)ur ic acid (chief complaint) Dietary surveillance and counselingChronic kidney disease, unspecifiedOther and unspecified hyperlipidemiaMal ignant Neoplasm, KidneyDiabetes Mellitus, Adult Onset, Uncontrolled 4 Rogelio Frias [address], [place], [place], [address] , [place]. tel:[phone] Referring Provider: Shanda Ham [facility] [place], [address]. tel:[phone] OFFICE/OUTPA TIENT VISIT, [facility], [address], [place], [place], [address], [place] tel:[phone] [facility] HTN (chief complaint)HL P (chief complaint)Go ut (chief complaint)ba ck pain (chief complaint) Dietary surveillance and counselingGout, unspecifiedOther and unspecified hyperlipidemiaLum bagoMalignant Neoplasm, Kidney 0 4 Rogelio Mora. [address], [place], [place], [address] , [place]. [phone] Referring Provider: Shanda [address], [place], [place], [address]. tel:[phone] OFFICE/OUTPA TIENT VISIT, [facility], [address], [place], [place], [address], [place] [phone] [facility] back pain (chief complaint)re nal carcinoma (chief complaint)an xiety (chief complaint)HT N (chief complaint) Dietary surveillance and counselingLumbago Hypertension, UnspecifiedMalign ant Neoplasm, KidneyGeneralized anxiety disorder 4 Rogelio Frias [address], [place], [place], [address] , [place]. tel:[phone] Referring Provider: Shanda [address], [place], [place], [address]. tel:[phone] OFFICE/OUTPA TIENT VISIT, [facility], [address] [place], [address], [place] tel:[phone] [facility] back pain (chief complaint)re nal carcinoma (chief complaint)Af ib (chief complaint) Dietary surveillance and counselingCAD, Cheesh-Na VesselAtrial FibrillationLumba goMalignant Neoplasm, Kidney 4 Rogelio Frias [address], [place], [place], [address] , [place]. tel:[phone] Referring Provider: Shanda [address], [place], [place], [address]. tel:[phone] OFFICE/OUTPA TIENT VISIT, [facility], [address], [place], [place], [address], [place] [phone] [facility] renal carcinoma (chief complaint)ba ck pain (chief complaint)an xiety (chief complaint) Dietary surveillance and counselingMaligna nt Neoplasm, KidneyLumbagoGene ralized anxiety disorder 4 Rogelio Mora. [address], [place], [place], [address] , [place]. tel:[phone] Referring Provider: Shanda Ham [address], [place], [place], [address]. tel:[phone] OFFICE/OUTPA TIENT VISIT, EST [facility], [address], [place], [place], [address], [place] tel:[phone] [facility] renal CA (chief complaint)Re nal failure (chief complaint)TG (chief complaint)ba ck pain (chief complaint) Dietary surveillance and counselingRenal Failure, AcuteMalignant Neoplasm, KidneyOther and unspecified hyperlipidemia 4 Rogelio Mora. [address], [place], [place], [address] , [place]. [phone] Referring Provider: Shanda Ham [address], [place], [place], [address]. tel:[phone] PREV VISIT, EST, AGE 40-64 [facility], [address], [place], [place], [address], [place] tel:[phone] [facility] Physical (chief complaint) Dietary surveillance and counselingRoutine Medical ExamRoutine Medical Exam 4 Rogelio Mora. [address], [place], [place], [address] , [place]. tel:[phone] Referring Provider: Shanda Ham [address], [place], [place], [address]. tel:[phone] OFFICE/OUTPA TIENT VISIT, EST [facility], [address], [place], [place], [address], [place] tel:[phone] [facility] throat pain (chief complaint)co ugh (chief complaint) Dietary surveillance and counselingThroat pain 4 Rogelio Mora. [address], [place], [place], [address] , [place]. [phone] Referring Provider: Shanda [address], [place], [place], [address]. tel:[phone] OFFICE/OUTPA TIENT VISIT, [facility], [address], [place], [place], [address], [place] tel:[phone] [facility] back pain (chief complaint)an xiety (chief complaint)Go ut (chief complaint)HT N (chief complaint) Dietary surveillance and counselingHyperte nsion, UnspecifiedLumbag oAtrial Fibrillation Feb-2 3 Rogelio Mora. [address], [place], [place], [address] , [place]. tel:[phone] Referring Provider: Shanda [address], [place], [place], [address]. tel:[phone] OFFICE/OUTPA TIENT VISIT, [facility], [address], [place], [address], [place] tel:[phone] [facility] back pain (chief complaint)an xiety (chief complaint)re nal CA (chief complaint) Dietary surveillance and counselingLumbago Generalized anxiety disorderMalignant Neoplasm, Kidney Dec- 3 Rogelio Mora. [address], [place], [place], [address] , [place]. tel:[phone] Referring Provider: [address], [place], [place], [address]. tel:[phone] OFFICE/OUTPA TIENT VISIT, [facility], [address], [place], [address], [place] tel:[phone] [facility] proteinuria (chief complaint)me tabolic (chief complaint)HL P (chief complaint)ba ck pain (chief complaint)go ut (chief complaint) Dietary surveillance and counselingGout, unspecifiedOther and unspecified hyperlipidemiaPro teinuriaRenal Failure, Acute Sep-3 0 3 Rogelio Mora. [address], [place], [place], [address] , [place]. tel:[phone] Referring Provider: [address], [place], [place], [address]. tel:[phone] OFFICE/OUTPA TIENT VISIT, [facility], [address], [place], [place], [address], [place] tel:[phone] [facility] back pain (chief complaint)go ut (chief complaint)an xiety (chief complaint) Dietary surveillance and counselingAtrial FibrillationLumba goGout, unspecifiedMetabo lic Syndrome 3 Rogelio Mora. [address], [place], [place], [address] , [place]. [phone] Referring Provider: Shanda [address], [place], [place], [address]. tel:[phone] OFFICE/OUTPA TIENT VISIT, [facility], [address], [place], [place], [address], [place] tel:[phone] [facility] back pain (chief complaint)se gavin (chief complaint)Go ut (chief complaint) Dietary surveillance and counselingLumbago Generalized anxiety disorderGout, unspecified 3 Rogelio Mora. [address], [place], [place], [address] , [place]. [phone] Referring Provider: Sh[address], [place], [place], [address]. tel:[phone] OFFICE/OUTPA TIENT VISIT, [facility], [address], [place], [place], [address], [place] tel:[phone] [facility] back pain (chief complaint)Go ut (chief complaint)an xiety (chief complaint)ab dominal bulge (chief complaint) Dietary surveillance and counselingLumbago Incisional hernia without mention of obstruction or gangreneGeneraliz ed anxiety disorderGout, unspecified 3 Rogelio Mora. [address], [place], [place], [address] , [place]. [phone] Referring Provider: Morgan Mercado, [address], [place], [place], [address]. tel:[phone] OFFICE/OUTPA TIENT VISIT, [facility], [address], [place], [place], [address], [place] tel:[phone] [facility] multiple polyps (chief complaint)ba ck pain (chief complaint)Go ut (chief complaint)an xiety (chief complaint) Dietary surveillance and counselingLumbago Gout, unspecifiedAnal and rectal polyp 3 Rogelio Mora. [address], [place], [place], [address] , [place]. tel:[phone] Referring Provider: Shanda Ham [facility], [place], [place], [address]. tel:[phone] OFFICE/OUTPA TIENT VISIT, [facility], [address], [place], [address], [place] tel:[phone] [facility] back pain (chief complaint)re nal CA (chief complaint) Dietary surveillance and counselingMaligna nt Neoplasm, KidneyLumbagoGene ralized anxiety disorder 3 Rogelio Mora. [address], [place], [place], [address] , [place]. tel:[phone] Referring Provider: [address], [place], [place], [address]. tel:[phone] OFFICE/OUTPA TIENT VISIT, [facility], [address], [place], [place], [address], [place] tel:[phone] [facility] back pain (chief complaint)HT N (chief complaint)HL P (chief complaint) Gout, unspecifiedHypert ension, UnspecifiedOther and unspecified hyperlipidemiaLum bago 3 Rogelio Mora. [address], [place], [place], [address] , [place]. tel:[phone] Referring Provider: [address], [place], [address]. tel:[phone] OFFICE/OUTPA TIENT VISIT, EST [facility], [address], [place], [place], [address], [place] tel:[phone] [facility] back pain (chief complaint)an xiety (chief complaint)go ut (chief complaint) Dietary surveillance and counselingLumbago Gout, unspecifiedGenera lized anxiety disorderHypertens ion, Unspecified May-0 3 Rogelio Mora. [address], [place], [place], [address] , [place]. tel:[phone] Referring Provider: Morgan Mercado, [address], [place], [place], [address]. tel:[phone] OFFICE/OUTPA TIENT VISIT, [facility], [address], [place], [place], [address], [place] tel:[phone] [facility] gout (chief complaint)le ft upper back pain (chief complaint) Dietary surveillance and counselingGout, unspecifiedChest Pain, Unspecified Fe-2 3 Rogelio Mora. [address], [place], [place], [address] , [place]. tel:[phone] Referring Provider: Shanda [address], [place], [address]. tel:[phone] OFFICE/OUTPA TIENT VISIT, [facility], [address], [place], [place], [address], [place] tel:[phone] [facility] gout (chief complaint)ba ck pain (chief complaint)re nal CA (chief complaint) Dietary surveillance and counselingGout, unspecifiedLumbag oGeneralized anxiety disorder 0 3 Rogelio Mora. [address], [place], [place], [address] , [place]. tel:[phone] Referring Provider: Shanda [address], [place], [place], [address]. tel:[phone] PREV VISIT, EST, AGE 40-64 [facility], [address], [place] [address], [place] tel:[phone] [facility] Physical (chief complaint) Dietary surveillance and counselingRoutine Medical ExamRoutine Medical Exam 3 Rogelio Mora. [address], [place], [place], [address] , [place]. [phone] Referring Provider: Morgan Mercado, [address], [place], [place], [address]. tel:[phone] OFFICE/OUTPA TIENT VISIT, [facility], [address], [place], [place], [address], [place] [phone] [facility] back pain (chief complaint)re nal mass (chief complaint) Dietary surveillance and counselingMaligna nt Neoplasm, KidneyLumbago 2 Rogelio Mora. [address], [place], [address] , [place]. [phone] Referring Provider: Shanda [address], [place], [address]. tel:[phone] OFFICE/OUTPA TIENT VISIT, [facility], [address], [place], [address], [place] tel:[phone] [facility] back pain (chief complaint)HL P (chief complaint) Dietary surveillance and counselingHyperte nsion, UnspecifiedLumbag oOther and unspecified hyperlipidemiaUns pecified chronic liver disease without mention of alcohol 2 Rogelio Mora. [address], [place], [place], [address] , [place]. [phone] Referring Provider: Shanda [address], [place], [place], [address]. tel:[phone] OFFICE/OUTPA TIENT VISIT, [facility], [address], [place], [place], [address], [place] tel:[phone] [facility] back pain (chief complaint)HT N (chief complaint)Af ib (chief complaint) Dietary surveillance and counselingOther and unspecified hyperlipidemiaAtr ial FibrillationMetab olic SyndromeCAD, Cheesh-Na Vessel 2 Rogelio Mora. [address], [facility], [place], [place], [address] , [place]. tel:[phone] Referring Provider: Morgan Mercado, [address], [place], [place], [address]. tel:[phone] Family History Family Member Type Diagnosis Age At Onset Mother Problem (finding) Alzheimer's Disease Father Problem (finding) Diabetes mellitus Father Problem (finding) Coronary artery disease Brother Problem (finding) Cancer, brain Payers Payer name Insurance type Covered libertarian ID Authoriza tion(s) [employer] [place] WPS [id number] Social History Type Description Quantity Date Captured [...] on due Goal Influenza vaccine. Due on Pr due Goal PSA. Due on due Goal [...] on due Goal Influenza vaccine. Due on Pr due Goal PSA. Due on due Goal [...] ordered Referral Referred To: Mich Oneal [address] [place], [place], [phone] Ordered: Referrals: Allopathic & Osteopathic Physicians : Internal Medicine : Gastroenterology. Mich Oneal. Evaluate and treat ordered Referral Referred To: Samir INFANTE, Jenny Bauer [address] [facility] [address] [place], [place], [id number] Ordered: Referrals: Jenny Dawson MD. Evaluate and treat ordered Referral Ordered: CT LUMBAR SPINE W/O DYE ordered Referral Ordered: US KIDNEY ordered Referral Ordered: Forest Moctezuma -Allopathic & Osteopathic Physicians : Internal Medicine : Endocrinology, Diabetes & Metabolism (related to Type 2 diabetes mellitus with diabetic nephropathy) ordered Referral Referred To: Forest Moctezuma [address] [facility] [address] [place], [place] [id number] Ordered: Referrals: Allopathic & Osteopathic Physicians : Internal Medicine : Endocrinology, Diabetes & Metabolism. Forest Moctezuma. Evaluate and treat ordered Referral Ordered: Pulmonology (related to Emphysema) ordered Referral Ordered: Jaskaran Saavedra (related to Nevus, non-neoplastic) ordered Referral Ordered: MRI ABDOMEN W/O DYE ordered Referral Referred To: Jaskaran Saavedra [address] [place], [phone] Ordered: Referrals: Jaskaran Saavedra. Evaluate and treat [...] ordered Referral Referred To: Wali Lomeli [address] [place], [phone] Ordered: Referrals: Wali Lomeli. Evaluate and treat ordered Referral Ordered: Referrals: Gastroenterology. Evaluate and treat ordered Referral Ordered: CT ABDOMEN W/O & W/DYE ordered Referral Ordered: Position Classification Manager (related to Type 2 diabetes mellitus with diabetic nephropathy) ordered Referral Ordered: Referrals: Position Classification Manager. Evaluate and treat ordered Referral Ordered: Pulmonology [...] homicidal thought Pt denies any crying spells gout1 Pt takes allopur inol and he [...] per week Pt denies any hemoptysis cough pain Pt has chronic l ow [...] zocor and feno Pt denies any myalgia pain Pt has chronic l ow back [...] per week and last dialysis was yesterday. pain Pt has chronic l ow back [...] homicidal thought Pt denies any crying spells gout1 Pt has not had a ny [...] takes allopurinol Pt denies any gout attack pain Pt has chronic l ow back [...] Pt needs refill Pt denies any myalgia gout1 Pt has gout Pt t akes allopurinol. Pt denies any gout attacks. physical Pt needs annual physical. Pt has [...] recent gout attacks cough1 Pt went to [facility] yesterday and she started to have mild [...] has bunny for colonoscopy later this week pain Pt has chronic l ow back [...] thought Pt denies any crying spells renal failure1 Pt has been doin g hemodialysis for the past week and he is doing ok. weight loss1 Pt has been losi ng weight unintentionally. He has been getting dialysis and getting fluid off him recently Pt denies any GI issue cough1 Pt c/o acute ons et of [...] neurontin. Pt denies any saddle area paresthesia renal Pt has chronic r enal disease [...] ambulance. He is off amaryl and insulin pain Pt has chronic l ow back pain pt denies any worsening pain Pt denies any loss of bladder control. Pt has mild neuropathy symptoms. Pt takes percocet and soma and he wants more soma than prescribed . Pt failed neurontin. Pt denies any saddle area paresthesia CKD Pt has CKD4. pt has bunny with nephrology today. pt was also admitted to hospital early this month for fluid overload. pt did not have heart failure Pt underwent diuresis and he is doing ok now without swelling Pt has normal UO. Pt lost some weight as a result of diuresis. Pt also is on diltiazem now in addition to toprol anxiety1 Pt has chronic a nxiety and [...] any calf pain. He denies any injury pain Pt has chronic l ow back [...] homicidal thought. Pt denies any crying spells tubular adenoma1 Pt had colonosc opy done [...] neurontin. Pt denies any saddle area paresthesia lung nodule1 Pt has history o f lung nodule Pt still smokes Pt denies any hemoptysis, worsening sob or cough. Pt still smoking anxiety1 Pt has anxiety a nd depression ,Pt takes celexa and xanax PRn and doing ok. Pt denies any suicidal or homicidal thought. Pt denies any crying spells glucose1 Pt has mildly hi gh glucose Pt denies any polyuria, polydipsia. uric acid1 Pt has high uric acid [...] normal UO Pt has proteinuria. Pt sees [facility] glucose1 Pt has high gluc ose Pt denies any polyuria, polydipsia pain1 Pt has chronic l ow back [...] kcl and high phos and high PTH pain Pt has chronic l ow back [...] and doing ok . Pt failed neurontin. COPD Pt has COPD .P t akes atrovent and albuterol PRN .pt on average uses albuterol 1-2 per week. Pt denies any hemoptysis, acute sob or cough gout Pt has gout .Pt started to take allopurinol since last month Pt denies any acute gout attack anxiety Pt has anxiety a nd depression [...] Pt denies any myalgia .pt needs refill gout1 Pt has elevated uric acid level Pt denies any active gout Pt has not started allopurinol yet anemia1 Pt has history o f mild [...] any myalgia. His lipid profile is ok. pain Pt has chronic l ow back pain pt denies any worsening pain Pt denies any loss of bladder control. Pt has mild neuropathy symptoms. Pt takes percocet and soma and doing ok . lung nodule1 Pt had another c hest CT done by pulmonary and he has mucous plug. No lung CA HLP Pt has HLP .Pt t akes [...] and toprol and his bp is stable pain Pt has chronic l ow back pain pt denies any worsening pain Pt denies any loss of bladder control. Pt has mild neuropathy symptoms. Pt takes percocet and soma and doing ok . anxiety1 Pt has anxiety a nd depression ,Pt takes celexa and xanax PRn and doing ok. Pt denies any suicidal or homicidal thought. Pt denies any crying spells lung nodule1 Pt has stable fredrick ng nodule. Pt denies any hemoptysis, worsening sob or cough trachea lesion1 Pt has tracheal lesion. Radiologist recommended bronchoscopy COPD1 Pt has COPD Pt c ontinues [...] denies any crying spells HLP Pt takes zocor, feno and Vascepa. Pt denies any myalgia. Pt needs vascepa refilled. renal Pt has chronic r enal disease. Pt has bunny with nephrology tomorrow. Pt has normal UO pain Pt has [...] nd feno now. pt denies any myalgia anxiety1 Pt has anxiety a nd depression [...] any urinary symptoms Pt denies any fever chronic pain1 Pt has chronic l ow back pain due to DDD. Pt denies any worsening pain Pt denies any loss of bladder control. pt takes percocet and soma and doing ok. Pt failed NSAID and ultram anxiety1 Pt has chronic a nxiety and depression Pt takes celexa and xanax PRn and doing ok Pt denies any suicidal or homicidal thought anxiety1 Pt has chronic a nxiety and depression Pt takes celexa and xanax PRn and doing ok. pt denies any suicidal or homicidal thought chronic pain1 Pt has chronic l ow back pain Pt denies any worsening pain pt denies any loss of bladder control. Pt has DDD afib1 Pt has chronic p aroxymal afib. Pt takes toprol. Pt takes coumadin, which is managed by cardiology pt denies any chest pain or sob chronic pain Pt has chronic l ow back pain pt denies any worsening pain pt denies any loss of bladder control. Pt takes percocet and soma and doing ok Pt failed NSAID and ultram anxiety1 Pt has chronic a nxiety and depression Pt takes celexa and xanax and doing ok Pt denies any suicidal or homicidal thought. Pt denies any crying spells COPD1 Pt has COPD. Pt takes Atrovent and ventolin PRN. Pt uses ventolin 1-2 per week Pt denies any hemoptysis, worsening sob or coughing. HLP Pt takes zocor a nd he [...] any other complaints chronic pain Patient has stable helper gallo low back pain. y. Patient complained of mild sciatica with leg numbness and tingling. Patient denies any loss of bowel bladder control. Patient failed NSAID and tramadol. Patient has 6 out of 10 pain daily. Patient complained of sharp pain. Patient denies any worsening pain. Pt takes percocet and soma and doing ok anxiety1 Patient has stable helper gallo anxiety and depression. Patient denies any [...] or homicidal thought chronic pain1 Patient has stable helper gallo low back pain. Patient complained of [...] the lab. Pt denies any polyuria, polydipsia back pain1 Patient has stable helper gallo low back pain. Patient complained of mild sciatica with leg numbness and tingling. Patient denies any loss of bowel bladder control. Patient failed NSAID and tramadol. Patient has 6 out of 10 pain daily. Patient complained of sharp pain. Patient denies any worsening pain. DM1 Pt has DM. pt is on amaryl. Pt states that his BG is around 150s. Pt denies any hypoglycemia Pt denies any polyuria, polydipsia Pt denies any neuropathy symptoms HLP Pt is taking zoc or and fish oil per cardiology Pt denies any myalgia. Pt is trying low fat and low carb diet anxiety1 Patient has stable helper gallo anxiety and depression. Patient denies any suicidal homicidal thoughts. Patient denies any crying spells. Patient takes celexa and Xanax and doing okay. Patient noticed more motivation. Patient denies any hopelessness. HTN Pt has HTn. Pt t akes lisinopril and his BP is stable. Pt needs refills. renal disease1 Pt has stage III renal disease. Pt just seen [facility]. Pt has hypertensive renal disease. Pt has [...] fever and chill for one week. His technical rep ordered a chest x ray and told [...] per day pt denies any acute sob chronic pain Pt has chronic l ow back pain due to DDD Pt denies any worsening pian. Pt denies any loss of bladder control. Pt has 7/10 pain Pt failed NSAID and ultram DM1 Pt has DM Pt danni es amaryl 2 mg BID and his BG is around 140s, which is better. Pt denies any polyuria, polydipsia. anxiety1 Pt has chronic a nxiety and depression Pt takes celexa and xanax PRn and doing ok. pt denies any suicidal or homicdial thought HLP Pt has HLP Pt martin s high TG and HLP Pt is on zocor Pt just seen cardiology who stopped his lopid and put him on fish oil. Pt is not very compliant with low carb and low carb diet DM PT takes amaryl only for DM. [...] Pt takes lisinor il 40 mg from [employer]. His BP is still high today. Pt [...] Pt is seeing Dr. Bajwa(urology) now in [place] HTN Pt has HTN. Pt t akes lisinorpil and his BP is stable melanoma1 Pt went to see [facility] surgeon and he was diagnosed with stage [...] checked his hep C which was negative HLP Pt has HLP. Pt h as high TG Pt failed different meds and exercise Pt is seeing dietian also DM Pt has DM. Pt ta kes amaryl. His A1c is better Pt denies any neuropathy symptoms renal1 Pt has renal dis ease and proteinuria. Pt is seeing nephrology. Pt is on lisinopril back pain1 Pt has chronic l ow back apin Pt denies any worsening pain Pt denies any loss of bowel ro bladder control COPD1 Pt uses atrovent and venotlin Pt [...] renal CA. Pt is seeing urology at [place] now. Pt supposes to see his urology this Tuesday COPD1 Pt uses atrovent and proair. Pt uses proair 4-5 per day Pt stills moking Pt denies any acute SOB back apin1 Pt has chronic l ow back pain. Pt denies any worsening pain. Pt denie any loss of bowel or bladder control DM Pt has DM. Pt ta kes 3 mg amary and his BG is around 140s. Pt denies any numbness sick1 Pt c/o productiv e coughing, with [...] not had gout attackf or seveveral years. renal neoplasm Pt has liver les ion [...] also nephrology. Pt denies any flank pain fatt liver Pt has evidence of fatty liver on recent MRi. Pt denies any abd pain. Pt does not drink aclohol back pain1 Pt has chronic l ow back pain. Pt denies any worsenign pain. Pt has 7/10 pain due to DDD. Pt denies any loss of bowel or bladder control. Pt takes soma and norco for pain and doing ok COPD Pt has COPD. Pt uses atrovent and proair. Pt still smoking. Pt uses albuterol 1-2 per day. Pt denies any acute SOB liver lesion1 Pt has liver les ion. He is seeing GI and will have MRI of abdomen through GI with 1/3 of the contrast per pt tomorrow. vitami D Pt has low vitam i D chronic pain Pt has chronic b ack [...] chronic l ow renal function. Pt sees [facility]. His renal function is stable HLP1 Pt [...] any hypoglycemia Pt denies any polyuria, polydipsia back pain1 Pt has chronic l ow back pain. Pt denies any loss of bowel ro bladder control. Pt takes percocet and soma. Pt denies any worsening pain afib Pt has afib. Pt takes metoprolol, diltiazem and also he is on coumadin. [facility] 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 Pt just saw urology and nephrology and was told ok. Pt will follow up yearly HTN Pt has HTN. Pt t akes lisinopirl and metoprolol and diltiazem. His BP is stable DM Pt takes amaryl dialy His BG [...] is on coumain also being managed by technical rep COPD Pt uses atrovent . Pt uses albuterol 1-2 per week. Pt still smoking LBP Pt has chronic l ow back [...] is eating better. Pt denies any myalgia DM Pt takes amaryl. His BG is around 150s. Pt has been eating healthier physical Pt needs annual physical. Pt has [...] with activity. Pt denies any chest pain DM1 Pt takes amaryl 2 mg. Pt states that his BG is around 130s. Pt seen ophthalmology recently and was told no retinopathy back pain1 Pt has chronic L BP. Pt denies any loss of bowel or bladder control. Pt has 7/10 pain. Pt c/o left sciatica. Pt denies any numnbess Renal CA Pt has renal CA both side. 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 Pt just seen urology at [place] recently and was told everything ok Pt [...] getting worse. Pt denies any polyuria, polydipsia. HTN Pt has HTN. Pt t akes lisinoril and toprol only now. His BP is sightly high today. Pt denies any chest pain or headache dM Pt has DM. Pt ta kes amaryl only. Pt states that his BG is around 140s. Pt denies any hypoglcyemia renal disease Pt has chronic r enal disease. Pt has proteinuria. Pt is seeing nephrology now reanl CA Pt has renal CA. Pt had right kidney removed. Pt had cyrogenic surgery left kidney recently back pain Additional infor mation: Pt has [...] low sodium diet. 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 with exacerbation Special diet education Related [...] d to Hyperlipidemia Quit smoking Related to Chron ic pain syndrome Weight management Related to Chr onic pain syndrome Quit smoking Related to Acute bronchitis Prescribed Activity and Exercise Education Related to [...] Weight management Related to Ana anoma Prescribed Activity and Exercise Education Related to Dietary Surveillance and Counseling Prescribed Diet Educ ation/Lifestyle Education Regarding Diet Related to Dietary Surveillance and Counseling Increase physical activity Relat ed to Malignant neoplasm of right renal pelvis Quit smoking Related to Malig nant neoplasm of right renal pelvis Diet and exercise Related to Mal ignant [...] Mental Status Date Cognitive Assessment Orientation - [place] ed to time, place, person, situation.
--- OUTSIDE RECORDS SUMMARY | 2024-05-01 09:47 | XMS_ITS | CONTINUITY OF CARE DOCUMENT ---
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 Dante Weaver DO Cardiomyopathy; nonischemic - EF 35% active Dante Weaver DO Hypertension active Dante Weaver DO Diabetes mellitus, oral medication active Dante Weaver DO Chronic renal disease; [place] active Dante morrissey DO CHF active Dante Weaver DO Anxiety -from PTSD active Dante Nguyen served in [place] Atrial fibrillation; on Coumadin/Dr Lowe active Dante Weaver DO ENCOUNTERS Date Type Provider Location Encounter Diag nosis - In-person encounter Office Visit Dante Weaver DO [facility] Office Family History Coronary Heart Disease male [...] status current every day smoker D ovidiocorine Waever DO FAMILY HISTORY Family Member Condition Father Family History Coron jessica Heart Disease male < 55: INSURANCE PROVIDERS Payer name Policy type / Coverage type Lele hollis ID [facility] Medicaid [id number] TREATMENT PLAN Date Name Performer Cardiology :partial [...] SYS completed ICM Interrogation, Remote (Tech) Dante [place] DO INTERROGATION EVAL REMOTE </30 D TECH REVIEW completed ICM Interrogation, Remote (Prof) Dantecornie Shermancock DO INTERROGATION EVAL REMOTE </30 D CV MNTR SYS completed AICD Interrogation, Remote (Tech) Dante [place] DO INTERROGATION REMOTE </90 D DOCUMENT CONTROL CLERK REVIEW completed AICD Interrogation, Remote (Prof) Dante [place] DO INTERROGATION EVAL REMOTE </90 D 1/2/> LD CVDFB completed ICM Interrogation, Remote (Prof) Dante [place] DO INTERROGATION EVAL REMOTE </30 D CV MNTR SYS completed ICM Interrogation, Remote (Tech) Dante [place] DO INTERROGATION EVAL REMOTE </30 D TECH REVIEW completed ICM Interrogation, Remote (Prof) Dante [place] DO INTERROGATION EVAL REMOTE </30 D CV MNTR SYS completed ICM Interrogation, Remote (Tech) Dante [place] DO INTERROGATION EVAL REMOTE </30 D TECH REVIEW completed SNOMED-CT: [id number] Smoking Cessation Counseling Dante Weaver DO completed SNOMED-CT: [id number] Physical Exam, Performed: Pulse Exam of Foot Dante Weaver DO completed EKG Dante Weaver DO completed SNOMED-CT: [id number] Current Medications Documented Dante Weaver DO completed
== END 2024-05-01 10:03 | disposition left against medical advice (07) ==
PROVIDERS: Emergency Provider Nurse Practitioner Family; PCP Emergency Medicine
DX: U07.1 COVID-19 (principal); J98.11 Atelectasis; I13.0 Hypertensive heart and chronic kidney disease with heart failure and stage 1 through stage 4 chronic kidney disease, or unspecified chronic kidney disease; E11.22 Type 2 diabetes mellitus with diabetic chronic kidney disease; N18.4 Chronic kidney disease, stage 4 (severe); I50.9 Heart failure, unspecified; Z79.4 Long term (current) use of insulin; Z99.2 Dependence on renal dialysis; J44.9 Chronic obstructive pulmonary disease, unspecified; I48.91 Unspecified atrial fibrillation; E78.5 Hyperlipidemia, unspecified; F17.210 Nicotine dependence, cigarettes, uncomplicated; Z86.711 Personal history of pulmonary embolism; Z85.820 Personal history of malignant melanoma of skin; Z85.528 Personal history of other malignant neoplasm of kidney
CPT/HCPCS: 71046; 87426; 87804; 99213; G0463

== ENCOUNTER → 2024-05-25 13:42 | Outpatient (CLI) | payer MEDICARE, SELFPAY | PROVIDERS: PCP Emergency Medicine; Visit Provider Emergency Medicine | DX: J18.9 Pneumonia, unspecified organism (principal) | CPT/HCPCS: 71046 ==

== ENCOUNTER → 2024-08-13 09:46 | Outpatient (CLI) | payer MEDICARE, SELFPAY ==
--- NOTE | ~2024-08-13 | XR_ITS ---
XR chest 2V Ordering provider: Aamir Thakkar, History: 74 years Male with . R05.9 COUGH. . Comparison: May 25, 2024 FINDINGS: MEDIASTINUM: The cardiac silhouette is slightly enlarged. Left unipolar pacemaker is noted. Slightly congestive rima. LUNGS: No effusions or pneumothorax. opacification in the left lung base is noted. OTHER: No free air under the diaphragm. IMPRESSION: Left lower lobe atelectasis versus pneumonia. Reviewed, dictated and finalized at location A.
--- OUTSIDE RECORDS SUMMARY | 2024-08-13 10:17 | XMS_ITS | Clinical Summary ---
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 AVOID DRIVING OR OPERATE MACHINES. 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 Gender Identity Not on file Sexual Orientation Not on file Last Filed Vital Signs Vital Sign Reading Time Taken Comments Blood Pressure 138/100 03/08/2018 10:44 AM RADIATION PROTECTION ENGINEER Pulse 82 03/08/2018 10:35 AM RADIATION PROTECTION ENGINEER Temperature 36.5 C (97.7 F) 03/08/2018 10:35 AM RADIATION PROTECTION ENGINEER Respiratory Rate 18 03/08/2018 10:35 AM RADIATION PROTECTION ENGINEER Oxygen Saturation 96% 03/08/2018 10:35 AM RADIATION PROTECTION ENGINEER Inhaled Oxygen Concentration - - Weight 110.7 kg (244 lb) 03/08/2018 10:35 AM RADIATION PROTECTION ENGINEER Height 182.9 cm (6') 03/08/2018 10:35 AM RADIATION PROTECTION ENGINEER Body Mass Index 33.09 03/08/2018 10:35 AM RADIATION PROTECTION ENGINEER Plan of Treatment Health Maintenance Due Date [...] 04/17/2018 Colorectal Cancer Screening 04/17/2028 PNEUMOCOCCAL VACCINE 50+ YEARS Completed 01/10/2017 , 07/14/2012 Insurance MEDICARE PART A AND B Care Teams Sensitometrist Relationship Specialty Start Date End Date Morgan Mercado MD [address] [place] [phone] PCP - General Family Practice 11/02/16
--- OUTSIDE RECORDS SUMMARY | 2024-08-13 10:17 | XMS_ITS | Clinical Summary ---
Author Organization [facility] Address [address] [facility] [place] [address] Care Team Providers Care Physical Therapy Teacher Name Role Phone Morgan Mercado MD Primary Care Provider [phone] Source Comments [facility],non-research medical center Affiliates and Associated Physician Practices is amultiple site organization consisting of ambulatory clinics and hospital sitesin [place], [place], [place] and [place]. This disclosure is being madepursuant to the Care Everywhere program and may not contain all information available regarding this patient. 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 Gender Identity Not on file Sexual Orientation Not on file Last Filed Vital Signs Vital Sign Reading Time Taken Comments Blood Pressure 127/83 08/03/2013 9:08 AM CDT Pulse 76 08/03/2013 9:08 AM CDT Temperature 36.3 C (97.3 F) 08/03/2013 9:08 AM CDT Respiratory Rate 20 07/14/2012 8:13 AM CDT [...] FLEX SIG - COLON CA SCREENING 1950 MEDICARE AWV 12 MONTHS 1950 HEPATITIS C SCREENING 01/31/1969 DTAP/TDAP/TD VACCINES (1 - Tdap) 1970 ZOSTER VACCINE (1 of 2) 2001 PNEUMOCOCCAL VACCINE 50+ (2 of 2 - PCV) 07/14/2013 07/14/2012 AAA SCREENING 02/06/2016 COVID-19 VACCINE (1 - 2023-2 5 season) 2023 DEPRESSION SCREENING 03/28/2024 INFLUENZA VACCINE (Season Ended) 2024 Respiratory Syncytial Virus (RSV) Vaccine Pt: or over 60 yrs (1 - 1-dose 75+ series) 2026 LIPID TESTING 02/17/2026 02/17/2021 HEPATITIS B VACCINE Aged Out No longe r eligible based on patient's age to complete this topic HIB VACCINE Aged Out No longer eligi ble based on patient's age to complete this topic HPV VACCINE Aged Out No longer eligi ble based on patient's age to complete this topic MENINGOCOCCAL (Group B) VACC INE SHARED DECISION-MAKING Aged Out No longer eligibl e based on patient's age to complete this topic MENINGOCOCCAL GROUPS A/C/Y/W VACCINE Aged Out No longer eligible b ased on patient's age to complete this topic Insurance MEDICARE MEDICAID - [place] [address] [place] [address] MEDICARE Care Teams Physical Therapy Teacher Relationship Specialty Start Date End Date Morgan Mercado MD [address] [phone] PCP - General 03/30/12
--- OUTSIDE RECORDS SUMMARY | 2024-08-13 10:18 | XMS_ITS | Clinical Summary ---
Author Organization [facility] Address [address] [place] [address] Phone Care Team Providers Care Lead Sustainability Specialist Name Role Phone Rogelio Morgan Primary Care Provider [phone] Mac Ervin MD Unavailable [phone] Allergies Active Allergy Reactions Criticality Noted Date [...] SHALINIE, ADEEL, SAT Active ergocalciferol (VITAMIN D) 20536 UNIT CapsuleIndicatio ns:SATURDAYS Take 50,000 Units by [...] 71 12/01/2018 2:07 PM CDT Temperature 36.6 C (97.8 F) 12/01/2018 12:09 PM CDT Respiratory Rate 16 12/01/2018 12:09 PM CDT [...] Mclean Relation to Subscriber:Self Name:Lencho Mclean Payer ID:[id number] Group ID:NONE Type:Not on file Address: [address] ADMIN Advance Directives * Full Code (Latest Code Status on File) Date Activated Date Inactivated Comments 08/10/2015 8:07 PM 08/12/2015 12:44 PM CPR-Full Tr eatment: FULL ARREST: Attempt Resuscitation/CPR wit intubation and mechanical ventilation. PRE-ARREST: Use entire range of life support measures to stabilize the patient. Care Teams Lead Sustainability Specialist Relationship Specialty Start Date End Date Morgan Mercado [address] [place] [address] PCP - General Family Medicine 05/16/15 Mac Ervin MD [address] [place] [phone] Consulting Physician Oncology 09/21/21
--- OUTSIDE RECORDS SUMMARY | 2024-08-13 10:18 | XMS_ITS | Data Portability ---
Author Organization [place] [facility], Main Office Address [address] [place] [address] Assessment No assessment recorded. Plan of Treatment Reminders Order Date Submit Date Provider Last Modified By Organization Details Last Modified Time Details Appointments None recorded. Lab None recorded. Referral endocrinolo gy referral 2022 023 [email or web address] Zay Conroy MD, [address], [place], [address], 11:51:47 Procedures None recorded. Surgeries None recorded. [...] total 109 mg/dL <200 normal Not Available [facility] [place] [address] [place], [address], 08/19/2022 17:33:35 08/19/1908/19/2022 LIPID PANEL , STAND ANAHI HDL cholesterol 38 mg/dL > or = 40 low Not Available [facility] [address] [place], [address], 08/19/2022 17:33:35 08/19/1908/19/2022 LIPID PANEL , STAND ANAHI triglyceride s 118 mg/dL <150 normal Not Available [facility] [place] [address] [place], [address], 08/19/2022 17:33:35 08/19/19 23 08/19/2022 LIPID PANEL [...] 9): 2061- 2068 (http ://ed ucati on.Qu [employer] com/f aq/FA Q164) Not Available [facility] [address] [place], [address], 08/19/2022 17:33:35 08/19/19 23 08/19/2022 LIPID PANEL , STAND ANAHI chol/HDLC ratio 2.9 (calc ) <5.0 normal Not Available [facility] [address] [place], [address], 08/19/2022 17:33:35 08/19/19 23 08/19/2022 LIPID PANEL , STAND ANAHI non HDL cholesterol 71 mg/dL _(daniel c) <130 normal For patie nts with diabe sarah plus 1 major ASCVD risk facto r, treat ing to a non-H DL-C goal of <100 mg/dL (LDL- C of <70 mg/dL ) is cam hayes optio n. Not Available [facility] [address] [place], [address], 08/19/2022 17:33:35 08/19/19 23 08/19/2022 COMPR EHENS LORAINE METAB OLIC PANEL glucose 149 mg/dL 65-99 high Fasti ng refer ence inter fanny For someo ne witho ut known diabe sarah, a gluco se value >125 mg/dL indic ates that they may have diabe sarah and this shoul d be confi rmed with a follo w-up test. Not Available [place] [address] [place], [address], 08/19/2022 17:33:36 08/19/19 23 08/19/2022 COMPR EHENS LORAINE METAB OLIC PANEL urea nitrogen (BUN) 84 mg/dL 7-25 high Not Available [facility] [address], [address], 08/19/2022 17:33:36 08/19/19 23 08/19/2022 COMPR EHENS LORAINE METAB OLIC PANEL creatinine 4.27 mg/dL 0.70-1 .28 high Not Available [address], [address], 08/19/2022 17:33:36 08/19/19 23 08/19/2022 COMPR EHENS [...] kdoqi /gfr% 5Fcal culat or Not Available [facility] [place] [address] [place], [address], 08/19/2022 17:33:36 08/19/19 23 08/19/2022 COMPR EHENS LORAINE METAB OLIC PANEL BUN/creatini ne ratio 20 (calc ) 6-22 normal Not Available [place] [address] [place], [address], 08/19/2022 17:33:36 08/19/19 23 08/19/2022 COMPR EHENS LORAINE METAB OLIC PANEL sodium 140 mmol/ L 135-14 6 normal Not Available [address], [address], 08/19/2022 17:33:36 08/19/19 23 08/19/2022 COMPR EHENS LORAINE METAB OLIC PANEL potassium 4.7 mmol/ L 3.5-5. 3 normal Not Available [address], [address], 08/19/2022 17:33:36 08/19/19 23 08/19/2022 COMPR EHENS LORAINE METAB OLIC PANEL chloride 104 mmol/ L 98-110 normal Not Available [address], [address], 08/19/2022 17:33:36 08/19/19 23 08/19/2022 COMPR EHENS LORAINE METAB OLIC PANEL carbon dioxide 26 mmol/ L 20-32 normal Not Available [address], [address], 08/19/2022 17:33:36 08/19/19 23 08/19/2022 COMPR EHENS LORAINE METAB OLIC PANEL calcium 8.6 mg/dL 8.6-10 .3 normal Not Available [address], [address], 08/19/2022 17:33:36 08/19/19 23 08/19/2022 COMPR EHENS LORAINE METAB OLIC PANEL protein, total 6.2 g/dL 6.1-8. 1 normal Not Available [address], [address], 08/19/2022 17:33:36 08/19/19 23 08/19/2022 COMPR EHENS LORAINE METAB OLIC PANEL albumin 4.3 g/dL 3.6-5. 1 normal Not Available [address], [address], 08/19/2022 17:33:36 08/19/19 23 08/19/2022 COMPR EHENS LORAINE METAB OLIC PANEL globulin 1.9 g/dL_ (calc ) 1.9-3. 7 normal Not Available [address], [address], 08/19/2022 17:33:36 08/19/19 23 08/19/2022 COMPR EHENS LORAINE METAB OLIC PANEL albumin/glob ulin ratio 2.3 (calc ) 1.0-2. 5 normal Not Available [address], [address], 08/19/2022 17:33:36 08/19/19 23 08/19/2022 COMPR EHENS LORAINE METAB OLIC PANEL bilirubin, total 0.4 mg/dL 0.2-1. 2 normal Not Available [address], [address], 08/19/2022 17:33:36 08/19/19 23 08/19/2022 COMPR EHENS LORAINE METAB OLIC PANEL alkaline phosphatase 63 U/L 35-144 normal Not Available [address], [address], 08/19/2022 17:33:36 08/19/19 23 08/19/2022 COMPR EHENS LORAINE METAB OLIC PANEL AST 12 U/L 10-35 normal Not Available [address], [address], 08/19/2022 17:33:36 08/19/19 23 08/19/2022 COMPR EHENS LORAINE METAB OLIC PANEL ALT 12 U/L 9-46 normal Not Available [address], [address], 08/19/2022 17:33:36 08/19/19 23 08/19/2022 ALBUM IN, RANDO M URINE W/CRE ATINI NE creatinine, random urine 65 mg/dL 20-320 normal Not Available [address], [address], 08/19/2022 17:33:37 08/19/1908/19/2022 ALBUM INHAZELO M URINE W/CRE ATINI NE albumin, urine 84.2 mg/dL see note: normal Refer ence Range : Refer ence Range Not estab lishe d Not Available [address], [address], 08/19/2022 17:33:37 08/19/1908/19/2022 ALBUM INHEVER M URINE W/CRE ATINI NE albumin/crea tinine [...] a diagn ostic categ ory. Not Available [address], [address], 08/19/2022 17:33:37 08/19/1908/19/2022 TSH+F REE T4 TSH 0.68 mIU/L 0.40-4 .50 normal Not Available [address], [address], 08/19/2022 17:33:37 08/19/1908/19/2022 TSH+F REE T4 T4, free 1.1 NG/dL 0.8-1. 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 Not Available [facility] [place] [address] [place], [address], 08/19/2022 17:33:38 10/14/19 23 10/14/2022 LIPID PANEL , STAND ANAHI cholesterol, total 88 mg/dL <200 normal Not Available [facility] [place] [address] [place], [address], 10/14/2022 17:02:43 10/14/19 23 10/14/2022 LIPID PANEL , STAND ANAHI HDL cholesterol 39 mg/dL > or = 40 low Not Available [facility] [place] [address] [place], [address], 10/14/2022 17:02:43 10/14/19 23 10/14/2022 LIPID PANEL , STAND ANAHI triglyceride s 50 mg/dL <150 normal Not Available [facility] [place] [address] [place], [address], 10/14/2022 17:02:43 10/14/19 23 10/14/2022 LIPID PANEL [...] 9): 2061- 2068 (http ://ed ucati on.Qu [employer]. com/f aq/FA Q164) Not Available [facility] [place] [address] [place], [address], 10/14/2022 17:02:43 10/14/19 23 10/14/2022 LIPID PANEL , STAND ANAHI chol/HDLC ratio 2.3 (calc ) <5.0 normal Not Available [facility] [address], [address], 10/14/2022 17:02:43 10/14/19 23 10/14/2022 LIPID PANEL , STAND ANAHI non HDL cholesterol 49 mg/dL _(daniel c) <130 normal For patie nts with diabe sarah plus 1 major ASCVD risk facto r, treat ing to a non-H DL-C goal of <100 mg/dL (LDL- C of <70 mg/dL ) is consi dered a thera peuti c optio n. Not Available [facility] [place] [address] [place], [address], 10/14/2022 17:02:43 10/14/19 23 10/14/2022 COMPR EHENS LORAINE METAB OLIC PANEL glucose 66 mg/dL 65-99 normal Fasti ng refer ence inter fanny Not Available [facility] [place] [address] [place], [address], 10/14/2022 17:02:44 10/14/19 23 10/14/2022 COMPR EHENS LORAINE METAB OLIC PANEL urea nitrogen (BUN) 66 mg/dL 7-25 high Not Available [address], [address], 10/14/2022 17:02:44 10/14/19 23 10/14/2022 COMPR EHENS LORAINE METAB OLIC PANEL creatinine 4.48 mg/dL 0.70-1 .28 high Not Available [address], [address], 10/14/2022 17:02:44 10/14/19 23 10/14/2022 COMPR EHENS LORAINE METAB OLIC PANEL eGFR 13 mL/mi n/1.7 3m2 > or = 60 low The eGFR is based on the CKD-E PI 2020 equat ion. To calcu late the new eGFR from a previ ous Creat inine or Cysta tin C resul t, go to https ://mickey masters.klaudia love.o milad/guillermina lou s/ kdoqi /gfr% 5Fcal culat or Not Available [address], [address], 10/14/2022 17:02:44 10/14/19 23 10/14/2022 COMPR EHENS LORAINE METAB OLIC PANEL BUN/creatini ne ratio 15 (calc ) 6-22 normal Not Available [address], [address], 10/14/2022 17:02:44 10/14/19 23 10/14/2022 COMPR EHENS LORAINE METAB OLIC PANEL sodium 140 mmol/ L 135-14 6 normal Not Available [address], [address], 10/14/2022 17:02:44 10/14/19 23 10/14/2022 COMPR EHENS LORAINE METAB OLIC PANEL potassium 5.1 mmol/ L 3.5-5. 3 normal Not Available [address], [address], 10/14/2022 17:02:44 10/14/19 23 10/14/2022 COMPR EHENS LORAINE METAB OLIC PANEL chloride 107 mmol/ L 98-110 normal Not Available [address], [address], 10/14/2022 17:02:44 10/14/19 23 10/14/2022 COMPR EHENS LORAINE METAB OLIC PANEL carbon dioxide 22 mmol/ L 20-32 normal Not Available [address], [address], 10/14/2022 17:02:44 10/14/19 23 10/14/2022 COMPR EHENS LORAINE METAB OLIC PANEL calcium 8.3 mg/dL 8.6-10 .3 low Not Available [address], [address], 10/14/2022 17:02:44 10/14/19 23 10/14/2022 COMPR EHENS LORAINE METAB OLIC PANEL protein, total 6.0 g/dL 6.1-8. 1 low Not Available [address], [address], 10/14/2022 17:02:44 10/14/19 23 10/14/2022 COMPR EHENS LORAINE METAB OLIC PANEL albumin 4.3 g/dL 3.6-5. 1 normal Not Available [address], [address], 10/14/2022 17:02:44 10/14/19 23 10/14/2022 COMPR EHENS LORAINE METAB OLIC PANEL globulin 1.7 g/dL_ (calc ) 1.9-3. 7 low Not Available [address], [address], 10/14/2022 17:02:44 10/14/19 23 10/14/2022 COMPR EHENS LORAINE METAB OLIC PANEL albumin/glob ulin ratio 2.5 (calc ) 1.0-2. 5 normal Not Available [address], [address], 10/14/2022 17:02:44 10/14/19 23 10/14/2022 COMPR EHENS LORAINE METAB OLIC PANEL bilirubin, total 0.5 mg/dL 0.2-1. 2 normal Not Available [address], [address], 10/14/2022 17:02:44 10/14/19 23 10/14/2022 COMPR EHENS LORAINE METAB OLIC PANEL alkaline phosphatase 47 U/L 35-144 normal Not Available [address], [address], 10/14/2022 17:02:44 10/14/19 23 10/14/2022 COMPR EHENS LORAINE METAB OLIC PANEL AST 11 U/L 10-35 normal Not Available [address], [address], 10/14/2022 17:02:44 10/14/19 23 10/14/2022 COMPR EHENS LORAINE METAB OLIC PANEL ALT 10 U/L 9-46 normal Not Available [address], [address], 10/14/2022 17:02:44 10/14/19 23 10/14/2022 ALBUM IN, RANDO M URINE W/CRE ATINI NE creatinine, random urine 93 mg/dL 20-320 normal Not Available [address], [address], 10/14/2022 17:02:45 10/14/19 23 10/14/2022 ALBUM IN, RANDO M URINE W/CRE ATINI NE albumin, urine 155.2 mg/dL see note: normal Refer ence Range : Refer ence Range Not estab lishe d Not Available [address], [address], 10/14/2022 17:02:45 10/14/19 23 10/14/2022 ALBUM IN, [...] a diagn ostic categ ory. Not Available [address], [address], 10/14/2022 17:02:45 10/14/19 23 10/14/2022 TSH+F REE T4 TSH 0.65 mIU/L 0.40-4 .50 normal Not Available [facility] [address], [address], 10/14/2022 17:02:45 10/14/19 23 10/14/2022 TSH+F REE T4 T4, free 1.0 NG/dL 0.8-1. 8 normal Not Available [address], [address], 10/14/2022 17:02:45 10/14/19 23 10/14/2022 HEMOG LOBIN [...] Care in Diabe sarah(A DA). Not Available [address], [address], 10/14/2022 17:02:46 Result Notes None recorded. Problems Name Problem SNOMED Code Status Onset Date Resolution Date Notes Provider Name and Address Organization Details Recorded Time Dyslipidemia 283295670 Active 2022 [employer] [facility] [employer] 3 14:44:57 Uncontrolled type 2 diabetes mellitus 469413996 Active 2022 Chioma dodge [employer] [facility] 3 14:45:37 Diabetes mellitus 73315274 Active 2022 Alexa Hernandez MD [address], [place], [address] , [facility] [employer] 3 11:46:05 Renal mass 057397655 Active Not Available [facility] 3 04:49:05 Malignant tumor of kidney 239422347 Active 2018 Not Available [facility] 3 04:49:05 Malignant melanoma 886979959 Active 2018 Not Available [facility] 3 04:49:05 Congestive heart failure 88186117 Active Not Available [facility] 3 04:49:05 Heart disease 83053187 Active 2018 Not Available [facility] 3 04:49:05 Exposure to Agent [place] Active 2018 Not Available [facility] 3 04:49:05 Gout 70954277 Active Not Available [facility] 3 04:49:05 Problem Notes None recorded. Medical [...] 2nd Gen Pen Needle 32 gauge x /32 USE DIRECTED ONCE A DAY active Not [...] Address Organization Details Last Updated DateTime 3 84984.7 g 26.5 kg/m2 193.04 cm 91 /min 97.8 [degF] 170 mm[Hg] 91 mm[Hg] Brunilda Gastelum MA [place] [facility] 3 11:30:01 Social History Question Answer Notes LastModified by [employer] Details LastModified Time Tobacco Smoking Status Current Every Day Smoker Not Available [facility] 05/26/2022 04:13:23 What Is Your Level Of Caffeine Consumption? Moderate [id number] Information not available 05/26/2022 How Much Tobacco Do You Chew? None [id number] Information not available 05/26/2022 In The 14 Days Before Symptom Onset, Have You Had Close Contact With A Laboratory-confirm ed COVID-19 While That Case Was Ill? No [id number] Information not available 05/26/2022 In The 14 Days Before Symptom Onset, Have You Had Close Contact With A Person Who Is Under Investigation For COVID-19 While That Person Was Ill? No [id number] Information not available 05/26/2022 Which Illicit Or Recreational Drugs Have You Used? NONE [id number] Information not available 05/26/2022 How Much Tobacco Do You Smoke? 1 PPW [id number] Information not available 05/26/2022 Sex: Unknown Functional Status Question Answer Note LastModified by [employer] Details LastModified Time What is your level of alcohol consumption? None [id number] Information not available 05/26/2022 Do you or have you ever used smokeless tobacco? Never used smokeless tobacco [id number]|2024-08-13 10:18:00|2024-08-13 05:18:00|XMS_ITS|CARMEN OGDEN|External Medical Summaries|[id number]|" [place] ADMIN PAT ACTIVTIES (MASNONCT) [facility] Encounter Summary Created on: August 13, 2024 YOU MCLEAN : 1950 Sex: Male Author Name [facility] [place] [facility] [place] Address [address] [place] [address] Care Team Providers Care Certified Wellness Program Manager Name Role Phone JOSE TORO Primary Care Provider Unavailabl e Insurance Providers: All historical and current Section [...] AID (WNR) Mar 28, 2013 MEDICAI D [id number] YOU MCLEAN PATIENT MEDICARE (WNR) MEDICARE (M) PART A Jan 27, 2016 PART A [id number] YOU MCLEAN PATIENT MEDICARE (WNR) MEDICARE (M) PART B Jan 27, 2016 PART B [id number] [facility] YOU MCLEAN PATIENT MEDICARE (WNR) MEDICARE (M) PART A Jan 27, 2016 PART A [id number] YOU MCLEAN PATIENT MEDICARE (WNR) MEDICARE (M) PART B Jan 27, 2016 PART B [id number] [phone] YOU MCLEAN PATIENT Selected Encounter This section includes the information on record at [place] for the Encounter. Date/Time Encounter Type Encounter Description Reason Provider Source Dec 09, 2023 01:48 PM Outpatient Encounter ADMIN PAT ACTIVTIES (MASNONCT) MONIKA RODRÍGUEZ E Encounter Template Text not used by [place] Plan of Treatment: Future Appointments (+ 6 months) and Future Tests (+/- 45 days) The Plan of Treatment section includes future care activities for the patient from all [place] [facility] This section includes future appointments and future orders which are active, pending or scheduled. Future Appointments This section includes appointments that were scheduled to occur 6 months from the date of the Encounter, up to a maximum of 20 appointments. The data comes from all [facility]. Appointment Date/Time Appointment Type Appointme nt Facility Name Dec 27, 2023 08:00 AM AMBULATORY - NONE [facility] Dec 27, 2023 08:30 AM AMBULATORY - MEDICINE [facility] Jan 02, 2024 10:00 AM AMBULATORY - MEDICINE [facility] Jan 04, 2024 08:00 AM AMBULATORY - MEDICINE [facility] Jan 04, 2024 11:00 AM AMBULATORY - SURGERY [facility] Jan 23, 2024 01:00 PM AMBULATORY - NONE [facility] May 30, 2024 09:30 AM AMBULATORY - NONE [facility] Active, Pending, and Scheduled Orders This section includes a listing of several types of active, pending, and scheduled orders, including clinic medications orders, diagnostic test orders, procedure orders and consult orders; where the start date of the order is 45 days before the date of the Encounter or 45 days after the date of theEncounter. The data comes from all [facility]. Test Date/Time Test Type Test Details Facility Name Jan 10, 2024 12:00 AM Laboratory - Chemi stry Order TSH W/ REFLEX FT4 (STL) GREEN LI-HEP PLASMA SP [facility] Social History: Smoking Status (Most current) and Tobacco Use (All prior to encounter date) This section includes the most current, and the historical, smoking and tobacco- related health factors from the [place] facility where the Encounter took place. Current Smoking Status This section includes the most current smoking, or tobacco-related health factor, from the [place] facility where the Encounter took place. Date/Time Current Smoking Status Comment Facil ity Dec 26, 2019 09:17 AM [place]-TOBACCO USER EVERY DAY [facility] Tobacco Use History This section includes a history of the smoking, or tobacco-related health factors, that were collected on or before the date of the Encounter. The data comes from the [place] facility where the Encounter took place. Date/Time Smoking Status/Tobacco Use Comment F acility Dec 26, 2019 09:17 AM VA-TOBACCO USE 30 YEARS OR MORE [facility] Dec 26, 2019 09:17 AM VA-TOBACCO USE ADVICE [facility] Dec 26, 2019 09:17 AM VA-TOBACCO USE ULTRASOUND SPECIALIST NO [facility] Dec 26, 2019 09:17 AM VA-TOBACCO USE MED NO [facility] Dec 26, 2019 09:17 AM VA-TOBACCO USER EVERY DAY [facility] Jun 26, 2014 09:29 AM CURRENT TOBACCO USER [facility] Sep 04, 2013 09:12 AM CURRENT TOBACCO USER [facility] Sep 04, 2013 09:12 AM TOBACCO MEDS OFFER ED BUT DECLINED [facility] Sep 01, 2001 01:01 PM CURRENT TOBACCO USER [facility] Sep 01, 2001 01:01 PM TOBACCO USE [facility] Sep 21, 2000 07:28 AM CURRENT TOBACCO USER [facility] Sep 21, 2000 07:28 AM TOBACCO USE [facility] Jul 21, 2000 01:43 PM CURRENT TOBACCO USER [facility] Advance Directives: All historical and current Section Date Range: From patient's date of to the date document was created. This section includes ALL of a patient's completed or amended [place] Advance and Rescinded Directives. The entries below indicate that a directive exists for the patient, but an actual copy is not included with this document. The data comes from all [place] facilities. Date Advance Directives Provider Source August 05, 1995 ADVANCE DIRECTIVE MICHELLEROGER Leonela [facility] Radiology Reports: +/- 30 days [...] the Encounter. The data comes from all [place] treatment facilities. Date/Time Radiology Report Provider Source Nov 14, 2023 08:07 AM NM MYOCARDIAL P SP ECT STRESS/REST-P: YOU MCLEAN [id number] -1950 M Exm Date: NOV 14, 2023@08:07 Req Phys: SINDHU PEDROZA Loc: [facility] TXP EVAL ( Img Loc: [facility] Service: Unknown [address] [address] (Case [id number] COMPLETE) NM MYOCARDIAL PERF SPECT STRESS/R(NM Detailed) CPT:61357 Reason for Study: TRANSPLANT EVAL (Case 206 COMPLETE) TC-99M TETROFOSMIN (MYOVIEW) (NM Detailed) CPT:A9502 (Case 207 COMPLETE) TC-99M TETROFOSMIN (MYOVIEW), PE(NM Detailed) CPT:A9502 (Case 208 COMPLETE) NON-HEU TC-99M ADD-ON PER STUDY D(NM Detailed) CPT:Q9969 (Case 624 COMPLETE) REGADENOSON INJECTION (NM Detailed) CPT:J2785 Clinical History: TRANSPLANT EVAL Report Status: Verified Date Reported: NOV 14, 2023 Date Verified: NOV 14, 2023 Senior Sas Programmer E-Sig:/ES/Gama Mack MD,PhD Report: PATIENT NAME: YOU MCLEAN CASE #: [id number], [id number], [id number], [id number], [id number] EXAMINATION: Rest/Lexiscan Stress Gated SPECT Myocardial Imaging [...] code: 1000. Dictated by Forest Sierra MD (Manager Supplier). I, Gama Mack, have reviewed the images and report and concur with these findings. Primary Interpreting Staff: Gama Mack MD,PhD, Nuclear Medicine Physician (Senior Sas Programmer) Primary Interpreting Resident: FOREST SIERRA, Resident Physician /GAMA GARCIA [facility] Encounter Notes: All associated encounter notes This section contains the clinical notes associated to the Encounter. Date/Time Encounter Note(s) Provider Source Dec 09, 2023 01:48 PM PHYSICIAN LETTERS: LOCAL TITLE: NO CONTACT LETTER STL STANDARD TITLE: PHYSICIAN LETTERS DATE OF NOTE: DEC 09, 2023@13:48 ENTRY DATE: DEC 09, 2023@13:48:34 AUTHOR: DEVON FAUST COSIGNER: URGENCY: STATUS: COMPLETED [facility] [address] [place] [address] DEC 09, 2023 YOU MCLEAN [address] [place], [place] [address], [place] [address] Dear oYu Mclean, Thank you for choosing the [facility] as your primary choice for health care. As a partner in your health care, we are attempting to contact you because we have been unsuccessful in reaching you by phone to schedule your clinic appointment. Please call us at [phone], extension [phone] to speak to us regarding making an [...] inquire about scheduling. Sincerely, DEVON FAUST ADVANCE STRAP SETTER YOU MCLEAN LATOYA A [facility] "
--- OUTSIDE RECORDS SUMMARY | 2024-08-13 10:18 | XMS_ITS | Encounter Summary ---
Author Organization [facility] Address [address] [place] [address] Phone Care Team Providers Care Clinical Sociologist Name Role Phone Morgan Mercado Primary Care Provider [phone] Mac Ervin MD Unavailable [phone] Encounter Details Date Type Department Care Team (Late st Contact Info) Description 10/15/2021 Telephone [facility] [address] [place] [address] Mac Ervin MD [address] [place] [address] Social History Tobacco Use Types [...] up. Son will call back to reschedule bottle washer machine appt. documented in this encounter Plan of Treatment Not on file documented as of this encounter Visit Diagnoses Not on filedocumented in this encounter Care Teams Clinical Sociologist Relationship Specialty Start Date End Date Morgan Mercado [address] [place] [address] PCP - General Family Medicine 05/16/15 Mac Ervin MD [address] [place] [id number] Consulting Physician Oncology 09/21/21 documented as of this encounter
--- OUTSIDE RECORDS SUMMARY | 2024-08-13 10:18 | XMS_ITS | Encounter Summary ---
Author Name [facility] Organization [facility] Address [address] [place] [address] Care Team Providers Care Felter Tennis Balls Name Role Phone JOSE TORO Primary Care [...] AID (WNR) Mar 28, 2013 MEDICAI D [id number] YOU MCLEAN PATIENT MEDICARE (WNR) MEDICARE (M) PART A Jan 27, 2016 PART A [id number] YOU MCLEAN PATIENT MEDICARE (WNR) MEDICARE (M) PART B Jan 27, 2016 PART B [id number] YOU MC[place]AN PATIENT MEDICARE (WNR) MEDICARE (M) PART B Jan 27, 2016 PART B [id number] YOU MC[place]AN PATIENT MEDICARE (WNR) MEDICARE (M) PART A Jan 27, 2016 PART A [id number] [phone] YOU MCLEAN PATIENT Selected Encounter This section includes the information on record at [place] for the Encounter. Date/Time Encounter Type Encounter Description Reason Provider Source Jun 06, 2024 02:26 PM Outpatient Encounter GENERAL INTERNAL MEDICINE TRUDY VAZQUEZ Litzy Encounter Template Text not used by [place] Plan of Treatment: Future Appointments (+ 6 months) and Future Tests (+/- 45 days) The Plan of Treatment section includes future care activities for the patient from [facility] [place] [facility] This section includes future appointments and future orders which are active, pending or scheduled. Future Appointments This section includes appointments that were scheduled to occur 6 months from the date of the Encounter, up to a maximum of 20 appointments. The data comes from all [place] treatment facilities. Appointment Date/Time Appointment Type Appointme nt Facility Name Jul 04, 2024 08:30 AM AMBULATORY - SURGERY [facility] Sep 12, 2024 11:00 AM AMBULATORY - SURGERY [facility] Social History: Smoking Status (Most current) and Tobacco Use (All prior to encounter date) This section includes the most current, and the historical, smoking and tobacco- related health factors from the [place] facility where the Encounter took place. Current Smoking Status This section includes the most current smoking, or tobacco-related health factor, from the [place] facility where the Encounter took place. Date/Time Current Smoking Status Comment Facil ity Dec 26, 2019 09:17 AM VA-TOBACCO USER EVERY DAY [facility] Tobacco Use History This section includes a history of the smoking, or tobacco-related health factors, that were collected on or before the date of the Encounter. The data comes from the [place] facility where the Encounter took place. 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 [facility] Sep 04, 2013 09:12 AM CURRENT TOBACCO USER [facility] Sep 04, 2013 09:12 AM TOBACCO MEDS OFFER ED BUT DECLINED [facility] Sep 01, 2001 01:01 PM CURRENT TOBACCO USER Stefania [facility] Sep 01, 2001 01:[address] [facility] Sep 21, 2000 07:28 AM CURRENT TOBACCO USER [facility] Sep 21, 2000 07:28 AM TOBACCO USE . F[facility]GUNI MEEH[facility] Jul 21, 2000 01:43 PM CURRENT TOBACCO USER [facility] Advance Directives: All historical and current [...] August 05, 1995 ADVANCE DIRECTIVE R[address]ER MIC[address]LE [facility] Leon[facility] GONZALE[facility] Encounter Notes: All associated encounter notes This section contains the clinical notes associated to the Encounter. Date/Time Encounter Note(s) Provider Source May 03, 2024 02:29 PM NONVA NOTE: LOCAL TITLE: COMMUNITY CARE-JIMMY SELF PRESENTING CARE COORD PLAN STANDARD TITLE: NONVA NOTE DATE OF NOTE: MAY 03, 2024@14:29 ENTRY DATE: JUN 06, 2024@14:29:39 AUTHOR: MERNA VAZQUEZ EXP COSIGNER: URGENCY: STATUS: COMPLETED COMMUNITY CARE-JIMMY SELF PRESENTING CARE COORD PLAN 6[address] Has ADDENDA Emergency Notification Intake Date Presenting to the Facility: Apr Method of Contact: Submitted to Centralized Call Center Notification ID: [id number] [facility] Referral #: Closed - Submit for 1724/1728 [facility] Name: Hospital: [facility] Address: City: [place] State: [place] Zip Code: Phone : [facility] Facility Point of Contact: Name: Phone: Chief complaint: PNEUMONIA BOTH LUNGS Primary Diagnosis: Disposition Discharged Date of discharge: Apr Discharge to home [place] records sent securely to [place] PCP and RNCM. Alerting PCP team to this note for continuity of care. Records sent to [facility] for expedited upload. [facility] alerted via ECR Tool for eligibility review. No further records available. Discharge Summary Records:SHARED SECURELY WITH PACT RN AND SENT TO [facility] FOR SCANNING Hospital/discharge Summary (per discharge note): [age] year male with past medical history of atrial fibrillation, nonischemic cardiomyopathy, ICD, coronary disease, chronic systolic/diastolic heart failure, hypertension, hyperlipidemia, anxiety, depression. End-stage renal disease on hemodialysis. He was admitted for shortness of breath/positive COVID test Nephrology consulted 05/04 continues on treatment with IV Decadron, IV Rocephin, remdesivir 05/05 lying in the bed, receiving dialysis, appears more comfortable, off IV remdesivir secondary to leukopenia. Plan of care DW son Addendum remdesivir. 05/06 patient feeling better, off oxygen, cleared for discharge as per Nephrology Important Medication Changes: Start - allopurinoL 100 mg tablet Take 1 tablet (100 mg total) by mouth 3 (three) times a week dexAMETHasone 6 mg tablet Take 1 tablet (6 mg total) by mouth daily for [address] 40 mg EC tablet Take 1 tablet (40 mg total) by mouth daily Stop -N/A Change-N/A *Medication reconciliation needed* Post-Discharge Needs PACT: -outpatient follow-up with Nephrology(CONSULT ALREADY PLACED) 1) [place] PCP follow up -follow-up with primary care physician PACT Please place the below consults: Future Appointments 06/11/2024 10:45 AM Sana Phan MD [facility] Specialty 10/17/2024 1:00 PM [facility] DEVICE CHECK [address] Specialty (Community Care or [place] internal consults needed for ALL follow up care) /es/ MERNA N TAYLOR BSN RN REGISTERED NURSE Signed: 06/06/2024 14:37 Receipt Acknowledged By: 06/06/2024 15:29 /krystal/ LEVI RODRÍGUEZ MD 06/07/2024 11:13 /krystal/ LOUISA COHEN FORK TRUCK DRIVER REGISTERED NURSE 06/07/2024 ADDENDUM STATUS: COMPLETED Unable to reach or leave . He has not seen PCP here since 02/02/23. He does have non VA PCP and dc instructions indicate he will f/u there. /humaira COHEN RN BSN REGISTERED NURSE Signed: 06/07/2024 10:50 06/08/2024 ADDENDUM STATUS: COMPLETED Episode of Care Complete PER PACT RN concerning Cardiology consult He has not seen PCP here since 02/02/23. He does have non VA PCP and dc instructions indicate he will f/u there. /humaira ARELLANO RN REGISTERED NURSE Signed: 06/08/2024 10:46 MERNA VAZQUEZ [facility]
--- OUTSIDE RECORDS SUMMARY | 2024-08-13 10:18 | XMS_ITS ---
Author Name [facility] [place] Organization [facility] [place] Address [address] [place] [address] Care Team Providers Care School Traffic Supervisor Name Role Phone JOSE TORO Primary Care [...] AID (WNR) Mar 28, 2013 MEDICAI D [id number] YOU MC[place]AN PATIENT MEDICARE (WNR) MEDICARE (M) PART A Jan 27, 2016 PART A [id number] YOU MC[place] PATIENT MEDICARE (WNR) MEDICARE (M) PART B Jan 27, 2016 PART B [id number] [phone] YOU MCLEAN PATIENT MEDICARE (WNR) MEDICARE (M) PART A Jan 27, 2016 PART A [id number] [place] MC[place] PATIENT MEDICARE (WNR) MEDICARE (M) PART B Jan 27, 2016 PART B [id number] [phone] YOU MCLEAN PATIENT Selected Encounter This section includes the information on record at [place] for the Encounter. Date/Time Encounter Type Encounter Description Reason Provider Source August 19, 2023 10:59 AM Outpatient Encounter COMMUNITY CARE CONSULT MONIKA RODRÍGUEZ Litzy Encounter Template Text not used by [place] Plan of Treatment: Future Appointments (+ 6 months) and Future Tests (+/- 45 days) The Plan of Treatment section includes future care activities for the patient from all [place] treatmentfacilities. This section includes future appointments and future orders which are active, pending or scheduled. Future Appointments This section includes appointments that were scheduled to occur 6 months from the date of the Encounter, up to a maximum of 20 appointments. The data comes from all [place] treatment facilities. Appointment Date/Time Appointment Type Appointme nt Facility Name Aug 31, 2023 10:00 AM AMBULATORY - MEDICINE [facility] Sep 16, 2023 01:00 PM AMBULATORY - NONE [facility] Sep 16, 2023 02:30 PM AMBULATORY - MEDICINE [facility] Sep 21, 2023 08:30 AM AMBULATORY - MEDICINE [facility] Oct 10, 2023 01:30 PM AMBULATORY - NONE [facility] Oct 26, 2023 08:30 AM AMBULATORY - MEDICINE [facility] Nov 09, 2023 10:00 AM AMBULATORY - MEDICINE [facility] Nov 14, 2023 09:00 AM AMBULATORY - MEDICINE [facility] Nov 14, 2023 10:00 AM AMBULATORY - MEDICINE [facility] Nov 23, 2023 08:30 AM AMBULATORY - MEDICINE [facility] Dec 09, 2023 11:00 AM AMBULATORY - MEDICINE [facility] Dec 27, 2023 08:00 AM AMBULATORY - NONE [facility] Dec 27, 2023 08:30 AM AMBULATORY - MEDICINE [facility] Jan 02, 2024 10:00 AM AMBULATORY - MEDICINE [facility] Jan 04, 2024 08:00 AM AMBULATORY - MEDICINE [facility] Jan 04, 2024 11:00 AM AMBULATORY - SURGERY [facility] Jan 23, 2024 01:00 PM [facility] Social History: Smoking Status (Most current) and Tobacco Use (All prior to encounter date) This section includes the most current, and the historical, smoking and tobacco- related health factors from the [place] facility where the Encounter took place. Current Smoking Status This section includes the most current smoking, or tobacco-related health factor, from the [place] facility where the Encounter took place. Date/Time Current Smoking Status Comment Facil ity Dec 26, 2019 09:17 AM VA-TOBACCO USE 30 YEARS OR MORE [facility] Tobacco Use History This section includes a history of the smoking, or tobacco-related health factors, that were collected on or before the date of the Encounter. The data comes from the [place] facility where the Encounter took place. 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 Sep 21, 2000 07:28 AM CURRENT TOBACCO USER [facility] Sep 21, 2000 07:[address] [facility] Jul 21, 2000 01:43 PM CURRENT TOBACCO USER [facility] Advance Directives: All historical and current Section Date Range: From patient's date of to the date document was created. This section includes ALL of a patient's completed or amended [place] Advance and Rescinded Directives. The entries below indicate that a directive exists for the patient, but an actual copy is not included with this document. The data comes from all [place] facilities. Date Advance Directives Provider Source August 05, 1995 ADVANCE DIRECTIVE ROGER MICHELLEKYLE [facility] Radiology Reports: +/- 30 [...] the Encounter. The data comes from all [place] treatment facilities. Date/Time Radiology Report Provider Source Sep 16, 2023 12:22 PM US RENAL COMPLETE: YOU MCLEAN [id number] -[id number] Ex Date: SEP 16, 2023@12:22 Req Phys: SINDHU PEDROZA Loc: [facility] CHR ASSIST TXP EVAL ( Img Loc: [facility] Service: Unknown [address] [address] (Case [id number] COMPLETE) US RENAL COMPLETE (US Detailed) CPT:04873 Reason for Study: ESRD pt on HD being evaluated for renal transplant Clinical History: Report Status: Verified Date Reported: SEP 16, 2023 Date Verified: SEP 16, 2023 Fruit Canner E-Sig:/ES/ROSELINE ALBRIGHT Report: US RENAL COMPLETE [id number] 09/16/2023 4:24 PM HISTORY: ESRD pt on [...] renal cortical cysts. Primary Interpreting Staff: ROSELINE ALBRIGHT Diagnostic Radiologist (Fruit Canner) /ROSELINE PONCE [facility] Encounter Notes: All associated encounter notes [...] Beneficiary Travel eligibility requirements and administrative approval. * can safely be transported or transfer in and out of a private vehicle, taxi, bus or other common carrier (public transportation). *Or [place] does not need to be on a stretcher during transport. *Or does not require restraints during transport. *Or [place] does not require direct supervision during transport. *Or [place] does not require acute medical care during transport. Suggested medically appropriate forms of transportation: Taxi/Hired Car Type of care being provided: Outpatient appointment Date travel is to commence: July train operations supervisor time (if needed): Estimated time frame [place] will require transportation: 1 Year From: [place]'s Residence: [address] [place] [id number] To: (Facility Name): [facility] City/State: [facility] Does the have a certified nurses aide or need the assistance of an attendant? No Does the [place] travel with a service animal? No /es/ LEVI RODRÍGUEZ MD Signed: 08/19/2023 11:01 LEVI RODRÍGUEZ [facility]
--- OUTSIDE RECORDS SUMMARY | 2024-08-13 10:18 | XMS_ITS | Continuity of Care Document ---
Author Organization [facility] Address [address] [place] [address] [place] [address] Phone Care Team Providers Care Hand Flesher Name Role Phone Morgan Mercado MD Unavailable Unavailable Allergies, Adverse Reactions, Alerts Substance Reaction Status Criticality No Known Allergies Active No Inform ation Medications Medication Instructions Dosage Effective Dates (start - stop) Status Comments Norvasc 10 mg tablet take 1 tablet by oral route every day 10 MG - Active Xanax 1 mg tablet take 1 tablet [...] or operate machines,, PRN for pain G89.4 albuterol sulfate HFA 90 mcg/actuation aerosol inhaler inhale 1 puff by inhalation route every 4 - 6 hours as needed as needed 1 puff - Active PRN for sob Breztri Aerosphere 160 mcg-9mcg-4.8mcg/ac tuation HFA aerosol inhaler inhale 2 puff by inhalation route 2 times every day in the morning and evening 2.00 puff - Active allopurinol 100 mg tablet take 1 tablet by oral route 2 times every day 100 MG - Active start once acute gout resolve Celexa 20 mg tablet take 1 tablet by oral route every day 20 MG - Active take at night before sleep, avoid driving or operate machines Zocor 10 mg tablet take 1 tablet by oral route every day in the evening 10 MG - Active fenofibrate 54 mg tablet take 1 tablet by oral route every day 54 MG - Active Vitamin D2 1,250 mcg [...] 200 MG - Active Procedures Procedure Date PPPS, subseq visit OFFICE/OUTPATIENT VISIT, EST OFFICE/OUTPATIENT VISIT, EST Medicare [...] EST OFFICE/OUTPATIENT VISIT, EST OFFICE/OUTPATIENT VISIT, EST -2015 PREV VISIT, EST, AGE 40-64 OFFICE/OUTPATIENT VISIT, EST -2015 OFFICE/OUTPATIENT VISIT, EST -2015 OFFICE/OUTPATIENT VISIT, EST OFFICE/OUTPATIENT VISIT, EST OFFICE/OUTPATIENT [...] Diagnoses Date Provider Providers Copied on Encounter [facility], [address], [place], [address], tel:[phone] [facility] Medicine No Information 5 Rogelio Mora. [address], [place], [address] , [place]. tel:[phone] [facility], [address] [place], [place], [address], tel:[phone] [facility] Medicine No Information 5 Rogelio Mora. [address] [place], [address] , [place]. tel:[phone] OFFICE/OUTPA TIENT VISIT, EST [facility], [address], [place], [place], [address], [place] tel:[phone] [facility] Medicine physical (chief complaint) Encounter for general adult medical exam w abnormal findingsCentrilob ular emphysemaChronic pain syndromeGeneraliz ed Anxiety DisorderMixed hyperlipidemiaEnd stage renal diseaseCardiomyop athyType 2 diabetes mellitus without complicationsAnem iaGout 5 Rogelio Mora. [address], [place], [place], [address] , [place]. tel:[phone] OFFICE/OUTPA TIENT VISIT, [facility], [address], [place], [place], [address], [place] tel:[phone] [facility] pain (chief complaint)an xiety1 (chief complaint)CO PD1 (chief complaint)HL P (chief complaint)go ut1 (chief complaint) Generalized Anxiety DisorderChronic pain syndromeCentrilob ular emphysemaGoutMixe d hyperlipidemia 5 Rogelio Mora. [address], [place], [place], [address] , [place]. tel:[phone] OFFICE/OUTPA TIENT VISIT, [facility], [address], [place], [place], [address], [place] tel:[phone] [facility] Medicine pain (chief complaint)an xiety1 (chief complaint)CO VID1 (chief complaint) Acute respiratory failureViral infectionChronic pain syndromeGeneraliz ed Anxiety Disorder 5 Rogelio Mora. [address], [place], [place], [address] , [place]. tel:[phone] OFFICE/OUTPA TIENT VISIT, [facility], [address], [place], [place], [address], [place] tel:[phone] [facility] COVID1 (chief complaint)pa in (chief complaint)an xiety1 (chief complaint) Chronic pain syndromeGeneraliz ed Anxiety DisorderPneumonia 5 Rogelio Mora. [address], [place], [place], [address] , [place]. tel:[phone] OFFICE/OUTPA TIENT VISIT, [facility], [address], [place], [place], [address], [place] tel:[phone] [facility] pain (chief complaint)an xiety1 (chief complaint) Chronic pain syndromeGeneraliz ed Anxiety Disorder 5 Rogelio Mora. [address], [place], [place], [address] , [place]. tel:[phone] OFFICE/OUTPA TIENT VISIT, [facility], [address], [place], [place], [address], [place] tel:[phone] [facility] pain (chief complaint)an xiety1 (chief complaint) Chronic pain syndromeGeneraliz ed Anxiety Disorder 4 Rogelio Mora. [address], [place], [place], [address] , [place]. tel:[phone] OFFICE/OUTPA TIENT VISIT, [facility], [address], [place], [place], [address], [place] tel:[phone] [facility] pain (chief complaint)an xiety1 (chief complaint) Generalized Anxiety DisorderChronic pain syndrome 4 Rogelio Mora. [address], [place], [place], [address] , [place]. tel:[phone] OFFICE/OUTPA TIENT VISIT, [facility], [address], [place], [place], [address], [place] tel:[phone] [facility] pain (chief complaint)an xiety1 (chief complaint)go ut1 (chief complaint) Chronic pain syndromeGeneraliz ed Anxiety DisorderGoutTobac co use 4 Rogelio Mora. [address], [place], [place], [address] , [place]. tel:[phone] OFFICE/OUTPA TIENT VISIT, [facility], [address], [place], [place], [address], [place] tel:[phone] [facility] pain (chief complaint)an xiety1 (chief complaint)CO PD1 (chief complaint) Chronic pain syndromeGeneraliz ed Anxiety DisorderCentrilob ular emphysemaEncntr screen for malignant neoplasm of respiratory organs 0 2 4 Rogelio Mora. [address], [place], [place], [address] , [place]. tel:[phone] OFFICE/OUTPA TIENT VISIT, [facility], [address], [place], [place], [address], [place] tel:[phone] [facility] pain (chief complaint)an xiety1 (chief complaint)HL P (chief complaint) Chronic pain syndromeGeneraliz ed Anxiety DisorderEnd stage renal diseaseMixed hyperlipidemia Nov-0 4 Rogelio Mora. [address], [place], [place], [address] , [place]. tel:[phone] OFFICE/OUTPA TIENT VISIT, [facility], [address], [place], [address], [place] tel:[phone] [facility] pain (chief complaint)an xiety1 (chief complaint) Chronic pain syndromeGeneraliz ed Anxiety Disorder Oct- 4 Rogelio Mora. [address], [place], [place], [address] , [place]. tel:[phone] OFFICE/OUTPA TIENT VISIT, [facility], [address], [place], [place], [address], [place] tel:[phone] [facility] pain (chief complaint)an xiety1 (chief complaint) Chronic pain syndromeGeneraliz ed Anxiety Disorder 4 Rogelio Mora. [address], [place], [place], [address] , [place]. tel:[phone] OFFICE/OUTPA TIENT VISIT, [facility], [address], [place], [place], [address], [place] tel:[phone] [facility] pain (chief complaint)an xiety1 (chief complaint)ES RD (chief complaint)ca rdiac1 (chief complaint) Chronic pain syndromeGeneraliz ed Anxiety DisorderEnd stage renal diseaseCardiomyop athy 4 Rogelio Mora. [address], [place], [place], [address] , [place]. tel:[phone] OFFICE/OUTPA TIENT VISIT, [facility], [address], [place], [address], [place] tel:[phone] [facility] pain (chief complaint)an xiety1 (chief complaint) Chronic pain syndromeGeneraliz ed Anxiety Disorder 4 Rogelio Mora. [address], [place], [place], [address] , [place]. tel:[phone] OFFICE/OUTPA TIENT VISIT, [facility], [address], [place], [place], [address], [place] tel:[phone] [facility] pain (chief complaint)an xiety1 (chief complaint)af ib (chief complaint)ES RD (chief complaint) Chronic pain syndromeGeneraliz ed Anxiety DisorderChronic kidney disease, stage 4 (severe)Essential (primary) hypertensionCardi omyopathy 4 Rogelio Mora. [address], [place], [place], [address] , [place]. tel:[phone] OFFICE/OUTPA TIENT VISIT, [facility], [address], [place], [place], [address], [place] tel:[phone] [facility] pain (chief complaint)an xiety1 (chief complaint) Chronic pain syndromeGeneraliz ed Anxiety Disorder 4 Rogelio Mora. [address], [place], [address] , [place]. tel:[phone] OFFICE/OUTPA TIENT VISIT, [facility], [address], [place], [place], [address], [place] tel:[phone] [facility] anemia1 (chief complaint)DM (chief complaint)pa in (chief complaint)an xiety1 (chief complaint)go ut1 (chief complaint)HL P (chief complaint) GoutChronic pain syndromeMixed hyperlipidemiaChr onic kidney disease, stage 4 (severe)Type 2 diabetes mellitus without complicationsThro mbocytopeniaOther disorders of phosphorus metabolismGeneral ized Anxiety DisorderAnemia 4 Rogelio Mora. [address], [place], [place], [address] , [place]. tel:[phone] OFFICE/OUTPA TIENT VISIT, EST [facility], [address], [place], [place], [address], [place] tel:[phone] [facility] pain (chief complaint)an xiety1 (chief complaint)LP (chief complaint)go ut1 (chief complaint) Chronic pain syndromeGeneraliz ed Anxiety DisorderGoutMixed hyperlipidemia 4 Rogelio Mora. [address], [place], [place], [address] , [place]. tel:[phone] OFFICE/OUTPA TIENT VISIT, EST [facility], [address] [place], [address], [place] tel:[phone] [facility] pain (chief complaint)an xiety1 (chief complaint)HL P (chief complaint)go ut1 (chief complaint) Chronic pain syndromeMixed hyperlipidemiaGen eralized Anxiety DisorderGout 3 Rogelio Mora. [address], [place], [place], [address] , [place]. tel:[phone] OFFICE/OUTPA TIENT VISIT, EST [facility], [address], [place], [place], [address], [place] tel:[phone] [facility] physical (chief complaint) Chronic pain syndromeChronic kidney disease, stage 4 (severe)Polyp of colonCardiomyopat hyEncounter for general adult medical exam w abnormal findingsGeneraliz ed Anxiety DisorderType 2 diabetes mellitus without complicationsMixe d hyperlipidemia 3 Rogelio Mora. [address], [place], [place], [address] , [place]. tel:[phone] OFFICE/OUTPA TIENT VISIT, [facility], [address] [place], [address], [place] tel:[phone] [facility] cough1 (chief complaint) Acute bronchitis 3 Rogelio Mora. [address], [place], [place], [address] , [place]. tel:[phone] OFFICE/OUTPA TIENT VISIT, [facility], [address], [place], [place], [address], [place] tel:[phone] [facility] pain (chief complaint)an xiety1 (chief complaint)HL P (chief complaint)co fernando polyp1 (chief complaint) Chronic pain syndromeGeneraliz ed Anxiety DisorderPolyp of colonMixed hyperlipidemia 3 Rogelio Mora. [address], [place], [place], [address] , [place]. tel:[phone] OFFICE/OUTPA TIENT VISIT, [facility], [address] [place], [address], [place] tel:[phone] [facility] pain (chief complaint)an xiety1 (chief complaint)re nal failure1 (chief complaint)we ight loss1 (chief complaint) Chronic pain syndromeGeneraliz ed Anxiety DisorderAbnormal weight lossChronic kidney disease, stage 4 (severe) 3 Rogelio Frias [address], [place], [place], [address] , [place]. tel:[phone] OFFICE/OUTPA TIENT VISIT, [facility], [address] [place], [address], [place] tel:[phone] [facility] anxiety1 (chief complaint)pa in (chief complaint)co ugh1 (chief complaint)an emia1 (chief complaint) Anemia in chronic kidney diseaseChronic pain syndromeGeneraliz ed Anxiety DisorderHypocalce miaThrombocytopen iaAcute bronchitis 3 Rogelio Mora. [address], [place], [place], [address] , [place]. tel:[phone] OFFICE/OUTPA TIENT VISIT, [facility], [address], [place], [place], [address], [place] tel:[phone] [facility] anxietyy1 (chief complaint)pa in (chief complaint)gl ucose1 (chief complaint)an emia1 (chief complaint)HT N (chief complaint) Chronic pain syndromeGeneraliz ed Anxiety DisorderAnemia in chronic kidney diseaseHypoglycem ia 3 Rogelio Mora. [address], [place], [place], [address] , [place]. tel:[phone] OFFICE/OUTPA TIENT VISIT, [facility], [address], [place], [place], [address], [place] tel:[phone] [facility] anxiety1 (chief complaint)pa in (chief complaint)ES RD (chief complaint)co fernando polyp1 (chief complaint)to bacco (chief complaint) Chronic kidney disease, stage 4 (severe)Chronic pain syndromeGeneraliz ed Anxiety DisorderTobacco usePolyp of colon 3 Rogelio Mora. [address], [place], [place], [address] , [place]. tel:[phone] OFFICE/OUTPA TIENT VISIT, [facility], [address], [place], [place], [address], [place] tel:[phone] [facility] HTN (chief complaint)an xiety1 (chief complaint)pa in (chief complaint) Chronic kidney disease, stage 4 (severe)Chronic pain syndromeEssential (primary) hypertensionGener alized Anxiety Disorder 3 Rogelio Mora. [address], [place], [place], [address] , [place]. tel:[phone] OFFICE/OUTPA TIENT VISIT, [facility], [address], [place], [place], [address], [place] tel:[phone] [facility] Medicine pain (chief complaint)an xiety1 (chief complaint)re nal (chief complaint) Essential (primary) hypertensionChron ic kidney disease, stage 4 (severe)Chronic pain syndromeGeneraliz ed Anxiety DisorderMalignant neoplasm of left renal pelvisMixed hyperlipidemia July-0 3 Rogelio Frias [address], [place], [place], [address] , [place]. tel:[phone] OFFICE/OUTPA TIENT VISIT, EST [facility], [address], [place], [place], [address], [place] tel:[phone] [facility] Medicine pain (chief complaint)an xiety1 (chief complaint)hy poglycemia1 (chief complaint)re nal (chief complaint) Chronic kidney disease, stage 4 (severe)Chronic pain syndromeHypoglyce miaGeneralized Anxiety Disorder Apr-0 3 Rogelio Frias [address], [place], [place], [address] , [place]. tel:[phone] OFFICE/OUTPA TIENT VISIT, [facility], [address], [place], [place], [address], [place] tel:[phone] [facility] pain (chief complaint)an xiety1 (chief complaint)hy poglycemia1 (chief complaint)CK D (chief complaint) Chronic kidney disease, stage 4 (severe)Generaliz ed Anxiety DisorderChronic pain syndromeHypoglyce miaEssential (primary) hypertension May-0 3 Rogelio Frias [address], [place], [place], [address] , [place]. tel:[phone] OFFICE/OUTPA TIENT VISIT, EST [facility], [address], [address], [place] tel:[phone] [facility] Medicine pain (chief complaint)an xiety1 (chief complaint)CO PD1 (chief complaint)la b (chief complaint) Chronic pain syndromeGoutCentr ilobular emphysemaChronic kidney disease, stage 4 (severe)AnemiaMix ed hyperlipidemiaGen eralized Anxiety DisorderMalignant neoplasm of left renal pelvis Fe-0 -202 3 Mercado Morgan. [address], [place], [place], [address] , [place]. tel:[phone] OFFICE/OUTPA TIENT VISIT, [facility], [address], [place], [place], [address], [place] tel:[phone] [facility] cough1 (chief complaint)HT (chief complaint)em physema1 (chief complaint) Essential (primary) hypertensionEmphy semaAcute bronchitis 3 Mercado Morgan. [address], [place], [place], [address] , [place]. tel:[phone] OFFICE/OUTPA TIENT VISIT, [facility], [address], [place], [place], [address], [place] tel:[phone] [facility] pain (chief complaint)an xiety1 (chief complaint)HL P (chief complaint)go ut1 (chief complaint) Chronic pain syndromeGeneraliz ed Anxiety DisorderMixed hyperlipidemiaGou tPolyp of colon 3 Mercado Morgan. [address], [place], [place], [address] , [place]. tel:[phone] OFFICE/OUTPA TIENT VISIT, [facility], [address], [place], [place], [address], [place] tel:[phone] [facility] pain (chief complaint)an xiety1 (chief complaint)pn eumonia1 (chief complaint)re nal1 (chief complaint) Chronic pain syndromeGeneraliz ed Anxiety DisorderMalignant neoplasm of left renal pelvisPneumoniaMa lignant neoplasm of bladder, unspecified 2 Mercado Morgan. [address], [place], [place], [address] , [place]. tel:[phone] OFFICE/OUTPA TIENT VISIT, [facility], [address], [place], [place], [address], [place] tel:[phone] [facility] pain (chief complaint)an xiety1 (chief complaint)re nal (chief complaint) Chronic pain syndromeEnd stage renal diseaseGeneralize d Anxiety Disorder 2 Rogelio Frias [address], [place], [place], [address] , [place]. [phone] OFFICE/OUTPA TIENT VISIT, [facility], [address], [address], [place] tel:[phone] [facility] pain (chief complaint)an xiety1 (chief complaint)an emia1 (chief complaint)re nal1 (chief complaint) AnemiaChronic pain syndromeEnd stage renal diseaseGeneralize d Anxiety DisorderPneumonia HypocalcemiaOther disorders of phosphorus metabolism 2 Rogelio Frias [address], [place], [place], [address] , [place]. [phone] OFFICE/OUTPA TIENT VISIT, [facility], [address], [address], [place] tel:[phone] [facility] anxiety1 (chief complaint)pa in (chief complaint)re nal1 (chief complaint)an emia1 (chief complaint) Chronic pain syndromeEnd stage renal diseaseGeneralize d Anxiety DisorderMalignant neoplasm of left renal pelvisAnemia 2 Rogelio Frias [address], [place], [place], [address] , [place]. [phone] OFFICE/OUTPA TIENT VISIT, [facility], [address], [address], [place] tel:[phone] [facility] anxiety1 (chief complaint)pa in (chief complaint)HL P (chief complaint)an emia1 (chief complaint) AnemiaChronic pain syndromeEnd stage renal diseaseGeneralize d Anxiety DisorderMixed hyperlipidemia 2 Rogelio Frias [address], [place], [place], [address] , [place]. [phone] OFFICE/OUTPA TIENT VISIT, [facility], [address], [address], [place] tel:[phone] [facility] Medicine anxiety1 (chief complaint)pa in (chief complaint)an emia1 (chief complaint) Chronic pain syndromeGeneraliz ed Anxiety DisorderAnemia 2 Rogelio Moar. [address], [place], [place], [address] , [place]. [phone] OFFICE/OUTPA TIENT VISIT, [facility], [address], [place], [place], [address], [place] tel:[phone] [facility] pneumonia1 (chief complaint)re nal failure1 (chief complaint)an emia1 (chief complaint)pa in1 (chief complaint)an xiety1 (chief complaint) AnemiaEnd stage renal diseasePneumoniaC hronic pain syndromeGeneraliz ed Anxiety DisorderMalignant neoplasm of left renal pelvisPneumonia due to Streptococcus pneumoniae 2 Rogelio Frias [address], [place], [place], [address] , [place]. tel:[phone] OFFICE/OUTPA TIENT VISIT, [facility], [address], [place], [place], [address], [place] tel:[phone] [facility] low back pain1 (chief complaint)pn eumonia1 (chief complaint) Pneumonia due to Streptococcus pneumoniaePulmona ry embolismLumbago with sciatica, left side 2 Rogelio Mora. [address], [place], [place], [address] , [place]. tel:[phone] OFFICE/OUTPA TIENT VISIT, [facility], [address], [place], [place], [address], [place] tel:[phone] [facility] Medicine pain (chief complaint)an xiety1 (chief complaint)pn eumonia1 (chief complaint) Chronic pain syndromeGeneraliz ed Anxiety DisorderPneumonia Pulmonary embolismChronic kidney disease, stage 3 unspecified 2 Rogelio Frias [address], [place], [place], [address] , [place]. tel:[phone] OFFICE/OUTPA TIENT VISIT, [facility], [address], [place], [place], [address], [place] tel:[phone] [facility] cough1 (chief complaint) Chest pain on breathingHemoptys isDyspnea July-0 2 Rogelio Mora. [address], [place], [place], [address] , [place]. tel:[phone] OFFICE/OUTPA TIENT VISIT, [facility], [address], [place], [place], [address], [place] tel:[phone] [facility] pain (chief complaint)an xiety1 (chief complaint)tu bular adenoma1 (chief complaint) Polyp of colonChronic pain syndromeGeneraliz ed Anxiety Disorder Jun-2 2 Rogelio Mora. [address], [place], [place], [address] , [place]. tel:[phone] OFFICE/OUTPA TIENT VISIT, [facility], [address], [place], [place], [address], [place] tel:[phone] [facility] pain (chief complaint)an xiety1 (chief complaint)gl ucose1 (chief complaint)fredrick ng nodule1 (chief complaint) HyperglycemiaChro gallo pain syndromeAnxiolyti c dependenceSolitar y lung nodule 2 Rogelio Mora. [address], [place], [place], [address] , [place]. tel:[phone] OFFICE/OUTPA TIENT VISIT, [facility], [address], [place], [place], [address], [place] tel:[phone] [facility] uric acid1 (chief complaint)HL P (chief complaint)ph os1 (chief complaint)fo late (chief complaint)re nal disease1 (chief complaint)gl ucose1 (chief complaint) GoutSolitary lung noduleHyperlipide miaBPH w/o lower urinary tract symptomChronic kidney disease, stage 3 unspecifiedHypoca lcemiaOther disorders of phosphorus metabolismFolate deficiencyAnxioly tic dependenceChronic pain syndrome 2 [id number]|2024-08-13 10:18:00|2024-08-13 05:17:00|XMS_ITS|CARMEN OGDEN|External Medical Summaries|[id number]|" [place] TARGETED CASE MANAGEMENT PROGRESS [facility] Encounter Summary Created on: August 13, 2024 YOU MCLEAN : 1950 Sex: Male Author Name [facility] [place] [facility] [place] Address [address] [place] [id number] Care Team Providers Care Hand Flesher Name Role Phone JOSE TORO Primary Care [...] AID (WNR) Mar 28, 2013 MEDICAI D [id number] [phone] YOU MCLEAN PATIENT MEDICARE (WNR) MEDICARE (M) PART A Jan 27, 2016 PART A [id number] [phone] YOU MCLEAN PATIENT MEDICARE (WNR) MEDICARE (M) PART B Jan 27, 2016 PART B [id number] [phone] YOU MCLEAN PATIENT MEDICARE (WNR) MEDICARE (M) PART A Jan 27, 2016 PART A [id number] [phone] [place] PATIENT MEDICARE (WNR) MEDICARE (M) PART B Jan 27, 2016 PART B [id number] [place] PATIENT Selected Encounter This section includes the information on record at [place] for the Encounter. Date/Time Encounter Type Encounter Description Reason Provider Source Nov 09, 2023 10:00 AM TARGETED CASE MANAGEMENT ASSISTED HEMODIALYSIS ICD-10-CM N18.6 End stage renal disease EVA HATCH [facility] Encounter Template Text not used by MA Assessments - Encounter Diagnoses This section includes the primary and secondary diagnoses documented for the Encounter. Date/Time Primary/Secondary Diagnosis Diagnosis Name Provider Source Nov 23, 2023 03:11 PM PRIMARY End stage renal disease EVA HATCH [facility] Plan of Treatment: Future Appointments (+ 6 months) and Future Tests (+/- 45 days) The Plan of Treatment section includes future care activities for the patient from all [place] treatmentfacilities. This section includes future appointments and future orders which are active, pending or scheduled. Future Appointments This section includes appointments that were scheduled to occur 6 months from the date of the Encounter, up to a maximum of 20 appointments. The data comes from all [place] treatment facilities. Appointment Date/Time Appointment Type Appointme nt Facility Name Nov 14, 2023 09:00 AM AMBULATORY - MEDICINE [facility] Nov 14, 2023 10:00 AM AMBULATORY - MEDICINE [facility] Nov 23, 2023 08:30 AM AMBULATORY - MEDICINE [facility] Dec 09, 2023 11:00 AM AMBULATORY - MEDICINE [facility] Dec 27, 2023 08:00 AM AMBULATORY - NONE [facility] Dec 27, 2023 08:30 AM AMBULATORY - MEDICINE [facility] Jan 02, 2024 10:00 AM AMBULATORY - MEDICINE [facility] Jan 04, 2024 08:00 AM [facility] Jan 04, 2024 11:00 AM AMBULATORY - SURGERY . Leonela GONZALEZ [facility] Jan 23, 2024 01:00 PM [facility] - NONE [facility] Social History: Smoking Status (Most current) and Tobacco Use (All prior to encounter date) This section includes the most current, and the historical, smoking and tobacco- related health factors from the [place] facility where the Encounter took place. Current Smoking Status This section includes the most current smoking, or tobacco-related health factor, from the [place] facility where the Encounter took place. Date/Time Current Smoking Status Comment Facil ity Dec 26, 2019 09:17 AM VA-TOBACCO DOESNT USE WI 30 MIN WAKEUP [facility] Tobacco Use History This section includes a history of the smoking, or tobacco-related health factors, that were collected on or before the date of the Encounter. The data comes from the [place] facility where the Encounter took place. 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 [facility] Sep 21, 2000 07:28 AM CURRENT TOBACCO USER [facility] Sep 21, 2000 07:28 AM TOBACCO USE . [facility] Jul 21, 2000 01:43 PM CURRENT TOBACCO USER [facility] Advance Directives: All historical and current Section Date Range: From patient's date of to the date document was created. This section includes ALL of a patient's completed or amended [place] Advance and Rescinded Directives. The entries below indicate that a directive exists for the patient, but an actual copy is not included with this document. The data comes from all [place] facilities. Date Advance Directives Provider Source August 05, 1995 ADVANCE DIRECTIVE MIGUEL ANGELROGERRUSSELL DÍAZKYLE [facility] Radiology Reports: +/- 30 days [...] the Encounter. The data comes from all [place] treatment facilities. Date/Time Radiology Report Provider Source Nov 14, 2023 08:07 AM NM MYOCARDIAL P SP ECT STRESS/REST-P: YOU MCLEAN [id number] -1950 Exm Date: NOV 14, 2023@08:07 Req Phys: MONAE URBINA Loc: [facility] TXP EVAL ( Img Loc: [facility] Service: Unknown [address] [address] (Case [id number] COMPLETE) NM MYOCARDIAL PERF SPECT STRESS/R(NM Detailed) CPT:76573 Reason for Study: TRANSPLANT EVAL (Case 206 COMPLETE) TC-99M TETROFOSMIN (MYOVIEW) (NM Detailed) CPT:A9502 (Case 207 COMPLETE) TC-99M TETROFOSMIN (MYOVIEW), PE(NM Detailed) CPT:A9502 (Case 208 COMPLETE) NON-HEU TC-99M ADD-ON PER STUDY D(NM Detailed) CPT:Q9969 (Case 624 COMPLETE) REGADENOSON INJECTION (NM Detailed) CPT:J2785 Clinical History: TRANSPLANT EVAL Report Status: Verified Date Reported: NOV 14, 2023 Date Verified: NOV 14, 2023 Latin American Studies Professor E-Sig:/ES/Gama Mack MD,PhD Report: PATIENT NAME: YOU MCLEAN CASE #: [id number], [id number], [id number], [id number], [id number] EXAMINATION: Rest/Lexiscan Stress Gated SPECT Myocardial Imaging [...] code: 1000. Dictated by Forest Sierra MD (Assistant Producer). I, Gama Mack, have reviewed the images and report and concur with these findings. Primary Interpreting Staff: Gama Mack MD,PhD, Nuclear Medicine Physician (Latin American Studies Professor) Primary Interpreting Resident: FOREST SIERRA, Resident Physician [...] 2023@10:00 ENTRY DATE: NOV 09, 2023@10:44:49 AUTHOR: HATCH,EVA A EXP COSIGNER: URGENCY: STATUS: COMPLETED SOCIAL WORK ASSESSMENT FOR TRANSPLANT CANDIDATES DATE OF EVALUATION: 11/09/2023 REFERRING [facility]: [facility] ADDRESS: [address] [place] [address]/STATE: [place] [address] COMPLETING THIS EVALUATION: ELISE Sterling,GEOTHERMAL OPERATING ENGINEER PHONE: [phone] I. IDENTIFYING INFORMATION NAME: You Mclean SSN: [id number] CURRENT ADDRESS: [address] [place] [id number] PHONE (HOME): ([phone]) PHONE (WORK): () PHONE (CELL): ([phone]) : 1950 AGE: 73 HOUSING: Apartment complex in [place], [place]. PATIENT LIVES WITH: reported that he lives alone in an apartment in [place], [place]. NAME OF SUPPORT PERSON PRESENT AT [...] STATION(S): [place]. 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 COMBAT SERVICE: Yes FORMER POW? No [place] RATING: SX PRIORITY GROUP: 1 SC DISABILITY? 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 EDUCATION/EMPLOYMENT HISTORY HIGHEST LEVEL/DEGREE: graduated [employer]. EMPLOYED? 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 WORK HISTORY: He worked at [employer] Fwd: Power before going out due to back injury. 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 PATIENT'S EMPLOYMENT/EDUCATION PLANS FOLLOWING TRANSPLANT: At this time, [place] does not have plans for employment and/or education post-transplant. SPOUSE/SIGNIFICANT OTHER EMPLOYED? has been since 1972. WHERE? N/A III. FINANCIAL RESOURCES MONTHLY INCOME: [place] Disability $4100 Social Security $650 Workers Comp 1800 DEBTS: credit card debt roughly $2,0000 rent: $1,000 POTENTIAL SOURCES OF ADDITIONAL INCOME: N/A HEALTH INSURANCE COVERAGE: VA and Medicare IV. MARITAL/FAMILY HISTORY SIGNIFICANT OTHER: Azael has been 1973. PARENTS: [place] reported that both of his biological parents are . His father passed from complications from diabetes and heart problems. His mom was 93 when she passed. SIBLINGS: [place] had 4 siblings all who have . A brother with cancer and two of his sisters from old age and sepsis CHILDREN: reported that he has 2 children. His son Julian lives in [place], [place] and his daughter Champ is lives [facility] OTHERS: N/A ETCHER PHOTOENGRAVING ISSUES: N/A JOB COMMITMENTS: N/A FINANCIAL SITUATION: [place] reported being financially stable. WILLINGNESS TO PARTICIPATE IN THE TRANSPLANT PROCESS: [place] is eager to participate in the transplant process. CURRENT/PAST ALCOHOL/DRUG USE: [place] reported that he hasnt drank alcohol in the last year. HEALTH STATUS: [place] reported that his health is ok for me age but my kidneys got my boday out of whack . V. SOCIAL SUPPORT PRIMARY SUPPORT PERSON: NAME: Julian Mclean ADDRESS: [address] [place] [address] AGE: 56 PHONE (HOME): () PHONE (WORK): [...] Kidney Disease Stage V ONSET OF DISEASE [place] reported that he has been on dialysis for over a year. He reported he went to have blookwork done and that's how it came out he had kidney failure. While admiited to an outside hospital he initiated dialysis. HOW HAS IT AFFECTED PATIENT'S LEVEL OF FUNCTIONING/ACTIVITY LEVEL: [place] reported that he tires easily after dialysis but usually feels btter the next day. WHAT IS PT'S UNDERSTANDING OF TRANSPLANT PROCESS? aware [place] take place [place] of state. He also understands risk including infection, rejection and/or . He also understands that just because he is going through this process does not guarantee him a kidney transplant. HAS ANYONE DISCUSSED THE PROCESS WITH THE PATIENT? Yes, [facility] Monae Urbina. MANAGER HIGHWAY'S REVIEW OF COMPLIANCE HISTORY: APPOINTMENTS: A review of CPRS reflects that generally keeps all of his appointments.. MEDICATIONS: [place] reported that he is compliant with medications. DIET: [place] follows a renal diet as much as he can. SOURCE(S) REVIEWED: CPSR, and disclosure. VII. SUBSTANCE USE/ABUSE ALCOHOL: reported his last alcoholic drink was over ayear ago. Hu used to mavis bud light beer. AMOUNT USED: 2 or 3 TIME FRAME: usually at barbeques or birthdays LAST USED: over a year ago. REASON [...] Denied; none noted EMOTIONAL STATUS (Anxiety, Depression): [place] is 70%SC for PTSD and he is being followed by . PAST ABUSE (Physical, Sexual): Denied MENTAL STATUS (Orientation, Memory, Intelligence, Mood): is alert and oriented x4. He is of normal intelligence. IX. LEGAL ISSUES DUIs: reported he had a DUI in 2009. DETENTION/CORRECTION TIME (CURRENT/PENDING): Denied GAMBLING ISSUES: Denied OTHER: N/A X. SOCIAL ACTIVITIES HOBBIES: Patient reported his hobbies are fishing WORSHIP PREFERENCE/SPIRITUALITY: reported that his mormonism preference is Quaker. 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 He is also a member of [employer]. XI. ASSESSMENT/PLAN MANAGER HIGHWAY'S OVERALL ASSESSMENT: At this time [place] appears to be a good candidate for transplant. His family is supportive and he is being followed by MH for PTSD. He appears to be stable at this time. CURRENT STATUS: [place] appears to be stable and ready to proceed with the transplant process. A review of CPRS reflects that he is compliant with medical appointments. He appears to have a good support system. He is being followed by MH. FURTHER TREATMENT NEEDS: unknown by this tech writer RECOMMENDATIONS: At this time, this GEOTHERMAL OPERATING ENGINEER recommends that move forward with the transplant process. He is open to drug screens if suggested. He is compliant with medications. ASSESSMENT-PATIENT'S CHEMICAL DEPENDENCY: [place] denies chemical dependence. reported drinking maybe 4 times per week. He agrees to stop taking gummies with thc as part of the transplant process. MENTAL HEALTH: At this time, 's mental health appears to be ok. He has a diagnosis of PTSD. He denies SI/HI. SOCIAL SUPPORT: reported his chidren and caregiver are supportive. His son in law is a source of social support as well. TRANSPLANT READINESS: At this time, appears to be ready to process with transplant and voiced being eager to do so. COPING SKILLS: At this time, appears to have great coping skills. Time spent completing evaluation: 120 minutes Time spent reviewing CPRS: 60 minutes /krystal/ ELISE Sterling,GEOTHERMAL OPERATING ENGINEER Licensed Clinical Board Certified Behavioral Analyst Signed: 11/16/2023 22:30 EVA HATCH [facility] "
--- OUTSIDE RECORDS SUMMARY | 2024-08-13 10:19 | XMS_ITS ---
Author Name [facility], Clinic Address [address] [place] [id number] Phone [phone] Organization [facility] e, NA DOCUMENT DISCLAIMER Multiple document versions may exist, please be sure you review the latest version. The information in the [facility] Continuity of Care Document represents a summary of certain health and medical information. It may not contain the complete medical history for the patient and should be independently verified. The represented time in the document is Eastern Time. 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 [...] Encounter for immunization Z23 Active A ugust 25, 2023 End stage renal disease N18.6 Active 2022 Dependence on renal dialysis Z99.2 Active [...] Cardiomyopathy, unspecified I42.9 Active November 18, 2022 alf (current) use of oral hypoglycemic drugs Z79 .84 Active November 18, 2022 alf (current) use of aspirin Z79.82 Active November [...] SOCIAL HISTORY Tobacco Use Status Tobacco Type Unknown if ever consumed tobacco - Caregiver Characteristics No Information Available Characteristics of Home environment No Information Available Gender and Sex Information Gender Identity Sexual Orientation Decline to Answer Decline to answer MEDICATIONS Prescribed Medications for Dialysis Treatments Medication Instructions Dosage Route Start Date End Date [facility] Acetaminophen PRN headache 650 mg Oral February 14, 2024 February 12, 2025 Active Diphenhydramine PRN Allergic Reaction 50 mg Oral December 01, 2023 November 29, 2024 Active Diphenhydramine PRN Allergic Reaction 50 mg Intravenous - push December 01, 2023 November [...] Active Vitamin D (Calcitriol) Oral 3X Week 1.0 mcg Oral May 15, 2024 May 14, 2025 Active Iron Sucrose (Venofer) 1X Week 50 mg Intravenous - push July 19, 2024 July 18, 2025 Discontinued Mircera Every 2 weeks 30 mcg Intravenous - push July 28, 2024 July 27, 2025 Discontinued Home Medications Medication Instructions Dosage Route Start Date End Date [facility] acetaminophen 325 mg Take by mouth every six hours as needed 2 tablet ORAL June 05, 2024 Active allopurinol 100 mg Take by mouth three times a week as directed 1 tablet ORAL June 05, 2024 Active alprazolam 1 mg by mouth every twelve hours as needed 1 tablet ORAL May 31, 2024 Active aspirin 81 mg Take by mouth once a day 1 tablet ORAL May 31, 2024 Active Calcium Acetate 667 mg Take [...] April 04, 2025 Active carisoprodol 350 mg Take by mouth every twelve hours as needed 1 tablet ORAL June 05, 2024 Active citalopram 20 mg Take by mouth every night 1 tablet ORAL June 05, 2024 Active metoprolol succinate 200 mg Take by mouth once a day 1 tablet ORAL June 05, 2024 Active oxycodone-acetamin ophen 10-325 mg Take by mouth every six hours as needed for pain 1 tablet ORAL May 31, 2024 Active pantoprazole 40 mg Take by mouth once a day 1 tablet ORAL June 05, 2024 Active Rayaldee 30 mcg ORAL May 22, 2024 Active simvastatin 10 mg Take by mouth every night as directed 1 tablet ORAL May 08, 2024 Active VITAL SIGNS Post-Treatment Vital Signs Vital Sign Value Date / Time Blood Pressure-sitting 135/68 mmHg August 11 025 10:20 AM Blood Pressure-standing 130/64 mmHg August 11, 2024 10:20 AM Heart Rate 68 beats per minute August 11, 2024 10:20 AM Respiratory Rate 18 breaths per minute August 11, 2 025 10:20 AM Temperature 97.8 deg. F August 11, 2024 10: 20 AM Weight Vital Sign Value Date / Time Estimated Dry Weight 92 kg August 11 11:59 PM Pre-Dialysis 95.30 kg August 11, 2024 10: 20 AM Post-Dialysis 92.60 kg August 11, 2024 10: 20 AM Other Other Value Date / Time Height 183 cm November 18, 2022 12:00 AM Body Mass Index 27.47 kg/m2 August 02, 2024 05: 52 PM HEALTH CONCERNS Tuberculosis Testing TST Date Administered TST Date Read TST Result 11/30/2022 12/02/2022 Negative (<5) mm LAB RESULTS Hematology Result Type Result Value Relevant Referen ce Range Interpretation Date Folate, Serum 9.2 ng/mL No Reference Ran ge Provided - December 06, 2023 Folate, Serum 13.2 ng/mL No Reference Ran ge Provided - February 07, 2024 WBC (No Diff) 7.52 1000/mcL 4.80 - 10.80 1000/mcL - March 06, 2024 Neutrophils 76.6 % 40.0 - 75.0 % High February 252023 Reticulocyte 1.73 % 0.80 - 2.10 % - March 06, 2024 Platelets 160 1000/mcL 130 - 400 1000/mcL - Dece 2023 TIBC (Calc) 338 mcg/dL 185 - 515 mcg/dL - [facility] Transferrin Sat. (Calc) 21 % 20 - 55 % - March 06 UIBC/TIBC 267 mcg/dL 155 - 355 mcg/dL - March 06, 2024 WBC (No Diff) 8.20 1000/mcL 4.80 - 10.80 1000/mcL - March 19, 2024 Neutrophils 74.1 % 40.0 - 75.0 % - March TIBC (Calc) 349 mcg/dL 185 - 515 mcg/dL - April 10, 2024 UIBC/TIBC 277 mcg/dL 155 - 355 mcg/dL - April 10, 2024 Transferrin Sat. (Calc) 21 % 20 - 55 % - April 10, 2024 Reticulocyte 1.55 % 0.80 - 2.10 % - March 282024 Platelets 138 1000/mcL 130 - 400 1000/mcL - 2024 WBC (No Diff) 6.67 1000/mcL 4.80 - 10.80 1000/mcL - April 10, 2024 Neutrophils 89.8 % 40.0 - 75.0 % High April 282024 WBC (No Diff) 5.58 1000/mcL 4.80 - 10.80 1000/mcL - May 08, 2024 Reticulocyte 2.78 % 0.80 - 2.10 % High May 08, 2024 Platelets 103 1000/mcL 130 - 400 1000/mcL Low Febr uary 2024 Transferrin Sat. (Calc) 19 % 20 - 55 % Low May 08 Ferritin 77 ng/mL 22 - 322 ng/mL - April 282024 UIBC/TIBC 235 mcg/dL 155 - 355 mcg/dL - May 08, 2024 TIBC (Calc) 289 mcg/dL 185 - 515 mcg/dL - r 2024 Hemoglobin x 3 34.5 % 42.0 - 54.0 % Low Februar 2024 Lymphocytes 4.6 % 19.0 - 48.0 % Low April 292024 Monocytes 9.5 % 3.0 - 10.0 % - May 19, 2024 Neutrophils 80.3 % 40.0 - 75.0 % High April 292024 BALWINDER 3.4 % 0.0 - 4.0 % - May 19, 2024 WBC (No Diff) 5.87 1000/mcL 4.80 - 10.80 1000/mcL - May 19, 2024 Eosinophil 0.3 % 0.0 - 7.0 % - May 19, 2024 Basophils 1.8 % 0.0 - 1.5 % High May 19, 2024 RDW 14.6 % 11.5 - 14.5 % High April MCH 31.6 pg 27.0 - 31.0 pg High April 292024 MCHC 32.3 g/dL 30.0 - 36.0 g/dL - May 19, 2024 Hemoglobin x 3 35.4 % 42.0 - 54.0 % Low Februar y 2024 Platelets 77 1000/mcL 130 - 400 1000/mcL Low u [id number] Hemoglobin x 3 29.4 % 42.0 - 54.0 % Low Februar y 2024 Hemoglobin x 3 30.6 % 42.0 - 54.0 % Low May Neutrophils 84.7 % 40.0 - 75.0 % High June 05, 2024 Monocytes 4.1 % 3.0 - 10.0 % - June 05 Lymphocytes 9.4 % 19.0 - 48.0 % Low June 05, 2024 Transferrin Sat. (Calc) 32 % 20 - 55 % - June 05, 2024 Hemoglobin x 3 30 % 42.0 - 54.0 % Low May 262024 Reticulocyte 2.42 % 0.80 - 2.10 % High June 05, 2024 Platelets 159 1000/mcL 130 - 400 1000/mcL - 2024 TIBC (Calc) 257 mcg/dL 185 - 515 mcg/dL - May 262024 UIBC/TIBC 176 mcg/dL 155 - 355 mcg/dL - May MCHC 32.2 g/dL 30.0 - 36.0 g/dL - May MCH 31.3 pg 27.0 - 31.0 pg High June 05, 2024 RDW 15.1 % 11.5 - 14.5 % High June 05 025 Eosinophil 0.1 % 0.0 - 7.0 % - June 05 5 BALWINDER 1.4 % 0.0 - 4.0 % - June 05 5 Basophils 0.3 % 0.0 - 1.5 % - June 05 WBC (No Diff) 9.25 1000/mcL 4.80 - 10.80 1000/mcL - June 05, 2024 Iron 81 mcg/dL 45 - 160 mcg/dL - June 05, 2024 Hemoglobin x 3 27.9 % 42.0 - 54.0 % Low May 262024 Hemoglobin x 3 29.7 % 42.0 - 54.0 % Low May 272024 Hemoglobin x 3 30 % 42.0 - 54.0 % Low May 272024 Hemoglobin x 3 30.9 % 42.0 - 54.0 % Low June Hemoglobin x 3 33.6 % 42.0 - 54.0 % Low June Neutrophils 81.8 % 40.0 - 75.0 % High July 10, 2024 TIBC (Calc) 329 mcg/dL 185 - 515 mcg/dL - June 262024 UIBC/TIBC 272 mcg/dL 155 - 355 mcg/dL - June Transferrin Sat. (Calc) 17 % 20 - 55 % Low July 10, 2024 Iron 57 mcg/dL 45 - 160 mcg/dL - July 10, 2024 Eosinophil 1.1 % 0.0 - 7.0 % - July 10 Basophils 0.7 % 0.0 - 1.5 % - July 10 Lymphocytes 10.1 % 19.0 - 48.0 % Low July 10, 2024 Monocytes 4.6 % 3.0 - 10.0 % - July 10 25 BALWINDER 1.6 % 0.0 - 4.0 % - July 10 WBC (No Diff) 7.61 1000/mcL 4.80 - 10.80 1000/mcL - July 10, 2024 MCH 30.2 pg 27.0 - 31.0 pg - July 10, 2024 MCHC 32.0 g/dL 30.0 - 36.0 g/dL - June Hemoglobin x 3 33.9 % 42.0 - 54.0 % Low June 262024 Platelets 147 1000/mcL 130 - 400 1000/mcL - Apri l 2024 RDW 13.9 % 11.5 - 14.5 % - July 10 025 Reticulocyte 1.58 % 0.80 - 2.10 % - July 10, 2024 Hemoglobin x 3 30.6 % 42.0 - 54.0 % Low June 272024 HGB 10.2 g/dL 14.0 - 18.0 g/dL Low June Hemoglobin x 3 30.3 % 42.0 - 54.0 % Low June 272024 HGB 10.1 g/dL 14.0 - 18.0 g/dL Low June HGB 11.0 g/dL 14.0 - 18.0 g/dL Low July 31, 2024 Hemoglobin x 3 33 % 42.0 - 54.0 % Low July 31, 2024 Neutrophils 87.3 % 40.0 - 75.0 % High August 07 Ferritin 86 ng/mL 22 - 322 ng/mL - August 07 25 MCHC 33.2 g/dL 30.0 - 36.0 g/dL - August 07, 2024 HGB 11.3 g/dL 14.0 - 18.0 g/dL Low August 07, 2024 RDW 13.9 % 11.5 - 14.5 % - August 07 Platelets 136 1000/mcL 130 - 400 1000/mcL - August 07, 2024 Hemoglobin x 3 33.9 % 42.0 - 54.0 % Low August 07, 2024 Reticulocyte 2.99 % 0.80 - 2.10 % High August 07 MCH 30.7 pg 27.0 - 31.0 pg - August 07 25 Monocytes 4.1 % 3.0 - 10.0 % - August 07, 2024 Lymphocytes 5.7 % 19.0 - 48.0 % Low August 07 25 Basophils 0.6 % 0.0 - 1.5 % - August 07, 2024 Eosinophil 0.9 % 0.0 - 7.0 % - August 07, 2024 WBC (No Diff) 8.88 1000/mcL 4.80 - 10.80 1000/mcL - August 07, 2024 BALWINDER 1.3 % 0.0 - 4.0 % - August 07, 2024 HCT 34.1 % 42.0 - 52.0 % Low August 07 RBC 3.69 mill/mcL 4.70 - 6.10 mill/mcL Low August 07, 2024 UIBC/TIBC 287 mcg/dL 155 - 355 mcg/dL - August 07, 2024 Iron 69 mcg/dL 45 - 160 mcg/dL - August 07 Transferrin Sat. (Calc) 19 % 20 - 55 % Low August 07, 2024 TIBC (Calc) 356 mcg/dL 185 - 515 mcg/dL - August 07, 2024 Metabolic/Renal Result Type Result Value Relevant Referen ce Range Interpretation Date BUN, Post 24 mg/dL 6 - 19 mg/dL High May 19, 2024 BUN 81 mg/dL 6 - 19 mg/dL High May 19, 2024 URR, Calc 70 % 65 - 80 % - May 19 URR, Calc 74 % 65 - 80 % - June 05, 2024 BUN, Post 18 mg/dL 6 - 19 mg/dL - June 05 25 Bicarbonate 28 mEq/L 22 - 29 mEq/L - June 05, 2024 Potassium 4.2 mEq/L 3.5 - 5.1 mEq/L - June 05, 2024 Chloride 101 mEq/L 96 - 108 mEq/L - June 05, 2024 Creatinine, Serum 4.73 mg/dL 0.60 - 1.30 mg/dL High June 05, 2024 BUN/Creat Ratio 14.8 10.0 - 20.0 - May BUN 70 mg/dL 6 - 19 mg/dL High June 05 25 Sodium 140 mEq/L 136 - 145 mEq/L - June 05, 2024 BUN 51 mg/dL 6 - 19 mg/dL High July 10 25 Creatinine, Serum 4.99 mg/dL 0.60 - 1.30 mg/dL High July 10, 2024 BUN, Post 12 mg/dL 6 - 19 mg/dL - July 10 Bicarbonate 24 mEq/L 22 - 29 mEq/L - July 10, 2024 Sodium 136 mEq/L 136 - 145 mEq/L - July 10, 2024 BUN/Creat Ratio 10.2 10.0 - 20.0 - June Chloride 99 mEq/L 96 - 108 mEq/L - July 10, 2024 Potassium 4.5 mEq/L 3.5 - 5.1 mEq/L - July 10, 2024 URR, Calc 76 % 65 - 80 % - July 10, 2024 Sodium 136 mEq/L 136 - 145 mEq/L - August 07 025 BUN 57 mg/dL 6 - 19 mg/dL High August 07, 2024 BUN/Creat Ratio 10.8 10.0 - 20.0 - August 07, 2024 Creatinine, Serum 5.28 mg/dL 0.60 - 1.30 mg/dL High August 07, 2024 BUN, Post 15 mg/dL 6 - 19 mg/dL - August 07, 2024 URR, Calc 74 % 65 - 80 % - August 07, 2024 Potassium 4.6 mEq/L 3.5 - 5.1 mEq/L - August 07 025 Bicarbonate 25 mEq/L 22 - 29 mEq/L - August 07 Chloride 95 mEq/L 96 - 108 mEq/L Low August 07 25 HD Adequacy Result Type Result Value Relevant Referen ce Range Interpretation Date Krt/V 0.00 No Reference Ran ge Provided - March 06, 2024 Krt/V 0.00 No Reference Ran ge Provided - April 10, 2024 eKt/V ([place]) 1.17 No Reference Range Provided - May 19, 2024 wstdKt/V without residual 1.5 No Reference Range Provided - May 19, 2024 spKt/V ([place]irdas II) 1.36 No Reference Range Provided - May 19, 2024 wstdKt/V, residual 0.0 No Reference Range Provided - May 19, 2024 wstdKt/V 1.5 No Reference Ran ge Provided - May 19, 2024 Krt/V 0.00 No Reference Ran ge Provided - May 19, 2024 spKt/V Got 1.37 No Reference Ran ge Provided - May 19, 2024 spKt/V (Daugirdas II) 1.65 No Reference Range Provided - June 05, 2024 spKt/V Got 1.65 No Reference Ran ge Provided - June 05, 2024 wstdKt/V, residual 0.0 No Reference Range Provided - June 05, 2024 wstdKt/V 2.5 No Reference Ran ge Provided - June 05, 2024 wstdKt/V without residual 2.5 No Reference Range Provided - June 05, 2024 Krt/V 0.00 No Reference Ran ge Provided - June 05, 2024 eKt/V ([place]) 1.43 No Reference Range Provided - June 05, 2024 wstdKt/V 2.5 No Reference Ran ge Provided - July 10, 2024 eKt/V ([place]) 1.44 No Reference Range Provided - July 10, 2024 spKt/V (Daugirdas II) 1.65 No Reference Range Provided - July 10, 2024 spKt/V Got 1.63 No Reference Ran ge Provided - July 10, 2024 wstdKt/V without residual 2.5 No Reference Range Provided - July 10, 2024 wstdKt/V, residual 0.0 No Reference Range Provided - July 10, 2024 Krt/V 0.00 No Reference Ran ge Provided - July 10, 2024 wstdKt/V 2.3 No Reference Ran ge Provided - August 07, 2024 wstdKt/V without residual 2.3 No Reference Range Provided - August 07, 2024 spKt/V Gotch 1.37 No Reference Ran ge Provided - August 07, 2024 spKt/V (Daugirdas II) 1.40 No Reference Range Provided - August 07, 2024 eKt/V ([place]) 1.23 No Reference Range Provided - August 07, 2024 Krt/V 0.00 No Reference Ran ge Provided - August 07, 2024 wstdKt/V, residual 0.0 No Reference Range Provided - August 07, 2024 Bone/Mineral Result Type Result Value Relevant Referen ce Range Interpretation Date Magnesium 1.9 mg/dL 1.6 - 2.6 mg/dL - October Magnesium 2.0 mg/dL 1.6 - 2.6 mg/dL - December 06, 2023 Vitamin D 25 Hydroxy 28.9 ng/mL 30.0 - 100.0 ng/mL Low December 06, 2023 Vitamin D 25 Hydroxy 17.6 ng/mL 30 - 100 ng/mL Low February 07, 2024 Magnesium 1.7 mg/dL 1.6 - 2.6 mg/dL - February 07, 2024 PTH-Intact, Plasma 432 pg/mL 16 - 80 pg/mL High Feb emb2023 PTH-Intact, Plasma 472 pg/mL 16 - 80 pg/mL High Apr ruary 2024 Magnesium 1.9 mg/dL 1.6 - 2.6 mg/dL - May 08, 2024 PTH-Intact, Plasma 334 pg/mL 16 - 80 pg/mL High May 2024 Vitamin D 25 Hydroxy 35.4 ng/mL 30.0 - 100.0 ng/mL - June 05, 2024 Phosphorus 3.4 mg/dL 2.6 - 4.5 mg/dL - June 05, 2024 Ca x P Product 27 0 - 54 - June 05, 2024 Calcium, Total 7.9 mg/dL 8.4 - 10.2 mg/dL Low Junior h 2024 Corrected Ca x P Product 28 0 - - June 05, 2024 Corrected Ca x P Product 32 0 - 54 - July 10, 2024 Calcium, Total 8.8 mg/dL 8.4 - 10.2 mg/dL - Apri l 2024 Ca x P Product 33 0 - 54 - July 10, 2024 Phosphorus 3.7 mg/dL 2.6 - 4.5 mg/dL - July 10, 2024 PTH-Intact, Plasma 190 pg/mL 16 - 80 pg/mL High August 07, 2024 Corrected Ca x P Product 41 0 - 54 - August 07, 2024 Magnesium 1.5 mg/dL 1.6 - 2.6 mg/dL Low August 07 Phosphorus 4.9 mg/dL 2.6 - 4.5 mg/dL High August 07 Calcium, Total 8.6 mg/dL 8.4 - 10.2 mg/dL - August 07, 2024 Alkaline Phosphatase 50 U/L 40 - 129 U/L - Ma 2024 Ca x P Product 42 0 - 54 - August 07 Liver/Nutrition Result Type Result Value Relevant Referen ce Range Interpretation Date eNPCR 1.23 No Reference Ran ge Provided - May 19, 2024 Total Protein 5.5 g/dL 6.0 - 8.5 g/dL Low May 262024 Albumin (BCG) 3.5 g/dL 3.5 - 5.2 g/dL - May 262024 Glucose 185 mg/dL 70 - 100 mg/dL High June 05, 2024 Globulin (Calc) 2.0 g/dL 2.0 - 4.0 g/dL - June 05, 2024 A/G Ratio 1.8 1.0 - 2.0 - June 05, 2024 eNPCR 0.98 No Reference Ran ge Provided - June 05, 2024 Albumin (BCG) 3.7 g/dL 3.5 - 5.2 g/dL - May 272024 Glucose 186 mg/dL 70 - 100 mg/dL High July 10, 2024 Globulin (Calc) 1.9 g/dL 2.0 - 4.0 g/dL Low July 10, 2024 A/G Ratio 2.2 1.0 - 2.0 High July 10, 2024 Albumin (BCG) 4.2 g/dL 3.5 - 5.2 g/dL - June 262024 Total Protein 6.1 g/dL 6.0 - 8.5 g/dL - June 262024 eNPCR 0.73 No Reference Ran ge Provided - July 10, 2024 Albumin (BCG) 4.2 g/dL 3.5 - 5.2 g/dL - August 07, 2024 Total Protein 6.5 g/dL 6.0 - 8.5 g/dL - August 07, 2024 Globulin (Calc) 2.3 g/dL 2.0 - 4.0 g/dL - July 262024 A/G Ratio 1.8 1.0 - 2.0 - August 07, 2024 eNPCR 0.71 No Reference Ran ge Provided - August 07, 2024 Glucose 162 mg/dL 70 - 100 mg/dL High August 07 Immunochemistry Result Type Result Value Relevant Referen ce Range Interpretation Date HCV s/co ratio 0.02 0.00 - 0.79 - December 06, 2023 HCV s/co ratio 0.02 0.00 - 0.79 - February 07, 2024 Trace Elements Result Type Result Value Relevant Reference Range Interpre Aluminum < 5 mcg/L 0 - 10 mcg/L - November Aluminum < 5 mcg/L 0 - 10 mcg/L - February 07, 2024 Aluminum 5 mcg/L 0 - 10 mcg/L - August 07, 2024 Infectious Diseases Result Type Result [...] Reference Range Provided - March 19, 2024 Culture Result (Blood Culture) No Aerobic or Anaerobic Growth after 5 Days of Incubation. No Reference Range Provided - May 19, 2024 Microbiology-Culture, Blood 2nd Set Result Type Result Value Relevant Referen ce Range Interpretation Date Culture Result (Blood Culture - 2nd Set) No Aerobic or Anaerobic Growth after 5 Days of Incubation. No Reference Range Provided - March 19, 2024 Culture Result (Blood Culture - 2nd Set) No Aerobic or Anaerobic Growth after 5 Days of Incubation. No Reference Range Provided - May 19, 2024 Microbiology-Culture, Urine Result Type Result Value Relevant Referen ce Range Interpretation Date Culture Result (Urine) No Growth After 48 Hours No Reference Range Provided - March 10, 2024 Culture Result (Urine) <10,000 CFU/mL No Reference Range Provided - March 13, 2024 DIALYSIS PRESCRIPTION Conventional Hemodialysis Data Element Value Order Date/Time August 11, 2024 Frequency 3X Week Treatment Days TueThuSat Dialyzer [id number] Optiflux Treatment Time (Total Minutes) 240 min Blood Flow Rate (mL/min) 500 mL/min Dialysate Flow Rate Manual 800 Estimated Dry Weight 92 kg Dialysate Concentrate 3.0 K, 2.5 Ca, 1.0 Mg, 100 Dextrose (G3251) Sodium (mEq/L) 138 mEq/L Bicarb Machine Setting (mEq/L) 35 mEq/L Dialysis Access Hemodialysis-AV [place] t-Unknown, Left Upper Arm, Brachial Artery to [...] (mL/min) Dialysate Dialyzer Dialysis Access Meds Admin August 07, 2024 Weight 95.90 kg Weight 97.80 kg 04:00:00 450 3.0 K, 2.5 Ca, 1.0 Mg, 100 Dextrose (G3251) 180nre Optifl ux Blood Pressure-sitting 181/87 mmHg Blood Pressure-sit ting 179/79 mmHg Heart Rate 81 beats per minute Heart Rate 74 beats per minute Respiratory Rate 18 breaths per minute Respiratory Rate 18 breaths per minute Temperature 98.2 deg. F Temperature 98.2 deg. F August 09, 2024 Weight 94.40 kg Weight 92.40 kg 04:06:00 500 3.0 K, 2.5 Ca, 1.0 Mg, 100 Dextrose (G3251) 180nre Optiflux Hemodialysis-AV [place]-Unknown, Left Upper Arm, Brachial Artery to Axillary Vein Access Placed on September 02, 2022 Diphenhydramine; 50mg,Intravenous - push Heparin Sodium (Porcine) 1,000 Units/mL Systemic; 1000units,Intravenous - push Heparin Sodium (Porcine) 1,000 Units/mL Systemic; 1000units,Intravenous - push Ondansetron HCl (Zofran); 4mg,Intravenous - push Vitamin D (Calcitriol) Oral; 1.0mcg,Oral Blood Pressure-sitting 155/69 mmHg Blood Pressure-sit ting 130/69 mmHg Heart Rate 69 beats per minute Heart Rate 69 beats per minute Respiratory Rate 18 breaths per minute Respiratory Rate 18 breaths per minute Temperature 97.8 deg. F Temperature 97.6 deg. F August 11, 2024 Weight 95.30 kg Weight 92.60 kg 04:05:00 470 3.0 K, 2.5 Ca, 1.0 Mg, 100 Dextrose (G3251) 180nre Optiflux Hemodialysis-AV Graft-Unknown, Left Upper Arm, Brachial Artery to Axillary Vein Access Placed on September 02, 2022 Diphenhydramine; 50mg,Oral Heparin Sodium (Porcine) 1,000 Units/mL Systemic; 1000units,Intravenous - push Heparin Sodium (Porcine) 1,000 Units/mL Systemic; 1000units,Intravenous - push Ondansetron HCl (Zofran); 4mg,Intravenous - push Vitamin D (Calcitriol) Oral; 1.0mcg,Oral Blood Pressure-sitting 120/50 mmHg Blood Pressure-sit ting 135/68 mmHg Blood Pressure-standing 132/58 mmHg Blood Pressure-st anding 130/64 mmHg Heart Rate 92 beats per minute Heart Rate 68 beats per minute Respiratory Rate 18 breaths per minute Respiratory Rate 18 breaths per minute Temperature 97.2 deg. F Temperature 97.8 deg. F
--- OUTSIDE RECORDS SUMMARY | 2024-08-13 10:19 | XMS_ITS | Encounter Summary ---
Author Name [facility] [facility] Address [address] [place] [address] Care Team Providers Care Business Professor Name Role Phone JOSE TORO Primary Care [...] AID (WNR) Mar 28, 2013 MEDICAI D [id number] YOU MCLEAN PATIENT MEDICARE (WNR) MEDICARE (M) PART A Jan 27, 2016 PART A [id number] VINAYYOU PATIENT MEDICARE (WNR) MEDICARE (M) PART B Jan 27, 2016 PART B [id number] [phone] YOU MCLEAN PATIENT MEDICARE (WNR) MEDICARE (M) PART A Jan 27, 2016 PART A [id number] MCLEANYOU Castillo PATIENT MEDICARE (WNR) MEDICARE (M) PART B Jan 27, 2016 PART B [id number] YOU MCLEAN PATIENT Selected Encounter This section includes the information on record at [place] for the Encounter. Date/Time Encounter Type Encounter [...] PM PRIMARY Unspecified optic atrophy GUSTAVO AKBAR [facility] Jan 09, 2024 07:06 PM SECONDARY Chalazion left lower eyelid GUSTAVO AKBAR [facility] Jan 09, 2024 07:06 PM SECONDARY Type 2 diab with mild nonp rtnop without macular edema, bi GUSTAVO AKBAR [facility] Plan of Treatment: Future Appointments (+ 6 months) and Future Tests (+/- 45 days) The Plan of Treatment section includes future care activities for the patient [facility] [place] [facility] This section includes future appointments and future orders which are active, pending or scheduled. Future Appointments This section includes appointments that were scheduled to occur 6 months from the date of the Encounter, up to a maximum of 20 appointments. The data comes from all [place] treatment facilities. Appointment Date/Time Appointment Type Appointme nt Facility Name Jan 23, 2024 01:00 PM AMBULATORY - NONE . [facility] May 30, 2024 09:30 AM AMBULATORY - NONE . [facility] Jul 04, 2024 08:30 AM AMBULATORY - SURGERY [facility] Active, Pending, and Scheduled Orders This section includes a listing of several types of active, pending, and scheduled orders, including clinic medications orders, diagnostic test orders, procedure orders and consult orders; where the start date of the order is 45 days before the date of the Encounter or 45 days after the date of theEncounter. The data comes from all [place] treatment [facility]. Test Date/Time Test Type Test Details Facility Name Jan 10, 2024 12:00 AM Laboratory - Chemi stry Order TSH W/ REFLEX FT4 (STL) GREEN LI-HEP PLASMA SP [facility] Social History: Smoking Status (Most current) and Tobacco Use (All prior to encounter date) This section includes the most current, and the historical, smoking and tobacco- related health factors from the [place] facility where the Encounter took place. Current Smoking Status This section includes the most current smoking, or tobacco-related health factor, from the [place] facility where the Encounter took place. Date/Time Current Smoking Status Comment Facil ity Dec 29, 2021 01:00 PM VA-TOBACCO USER SOME DAYS [facility] Tobacco Use History This section includes a history of the smoking, or tobacco-related health factors, that were collected on or before the date of the Encounter. The data comes from the [place] facility where the Encounter took place. Date/Time Smoking Status/Tobacco Use Comment F acility Dec 29, 2021 01:00 PM VA-TOBACCO USE 30 YEARS OR MORE [facility] Dec 29, 2021 01:00 PM VA-TOBACCO USE ADVICE [facility] Dec 29, 2021 01:00 PM VA-TOBACCO USE HAND PLUG SHAPER NO [facility] Dec 29, 2021 01:00 PM VA-TOBACCO USE MED NO [facility] Dec 29, 2021 01:00 PM VA-TOBACCO USER SOME DAYS [facility] Dec 10, 2020 10:30 AM VA-TOBACCO USE > 1 5 LESS THAN 30 YEARS [facility] Dec 10, 2020 10:30 AM VA-TOBACCO USE ADVICE [facility] Dec 10, 2020 10:30 AM VA-TOBACCO USE HAND PLUG SHAPER NO [facility] Dec 10, 2020 10:30 AM VA-TOBACCO USE MED NO [facility] Dec 10, 2020 10:30 AM VA-TOBACCO USE WI 30 MIN OF WAKEUP [facility] Dec 10, 2020 10:30 AM VA-TOBACCO USER EVERY DAY [facility] August 22, 2018 01:17 PM VA-TOBACCO USE 30 YEARS OR MORE [facility] August 22, 2018 01:17 PM VA-TOBACCO USE ADVICE [facility] August 22, 2018 01:17 PM VA-TOBACCO USE HAND PLUG SHAPER NO [facility] August 22, 2018 01:17 PM VA-TOBACCO USE MED NO [facility] August 22, 2018 01:17 PM VA-TOBACCO USE WI 30 MIN OF WAKEUP [facility] August 22, 2018 01:17 PM VA-TOBACCO USER EVERY DAY [facility] Aug 31, 2016 09:57 AM CURRENT TOBACCO USER [facility] Aug 31, 2016 09:57 AM TOBACCO MEDS OFFER ED BUT DECLINED [facility] August 13, 2015 10:09 AM CURRENT TOBACCO USER [facility] August 13, 2015 10:09 AM TOBACCO MEDS OFFER ED BUT DECLINED [facility] July 30, 2008 07:34 AM CURRENT TOBACCO USER [facility] July 30, 2008 07:34 AM TOBACCO OFFERRED P T MEDS (PROVIDER) [facility] May 28, 2008 10:38 AM CURRENT TOBACCO USER [facility] July 27, 2007 09:18 AM CURRENT TOBACCO USER [facility] July 27, 2007 09:18 AM TOB INFO ON NON-VA STOP SMOKING CLINIC [facility] July 27, 2007 09:[address] OP SMOKING CLINIC [facility] Sep 19, 2006 08:38 AM CURRENT TOBACCO USER [facility] Sep 19, 2006 08:38 AM TOB-DECLINES SMOKI NG CESSATION REFERRAL [facility] Sep 19, 2006 08:38 AM TOBACCO MEDS OFFER ED BUT DECLINED [facility] Advance Directives: All historical and current Section Date Range: From patient's date of to the date document was created. This section includes ALL of a patient's completed or amended [place] Advance and Rescinded Directives. The entries below indicate that a directive exists for the patient, but an actual copy is not included with this document. The data comes from all [place] facilities. 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
--- OUTSIDE RECORDS SUMMARY | 2024-08-13 10:19 | XMS_ITS ---
Author Organization [facility] [place] [address] Address [address] [place] [address] Care Team Providers Care Electroplater Helper Name Role Phone Morgan Mercado MD Primary Care Provider + [phone] Brisa Lowe MD Unavailable [phone] Aamir Thakkar MD Unavailable [phone] Rodolfo Berman MD Unavailable [phone] Dialysis Access Sites Type Status Location Placement Date Removal Da te AV fistula Active Left Upper Arm - Anterior 09/02/2022 Procedures Procedure Name Priority Date/Time Associated Diagnosis Comments DEVICE CHECK - REMOTE Routine 07/03/2024 3:39 PM CDT Bradycardia Automatic implantable cardioverter-defibri llator in situ Chronic combined systolic and diastolic CHF (congestive heart failure) (HCC) Dilated cardiomyopathy (HCC) XR CHEST 1 VIEW IP Routine 05/29/2024 1:39 PM REGISTERED NURSE MIDWIFE POCT GLUCOSE DEVICE Routine 05/29/2024 11:50 AM REGISTERED NURSE MIDWIFE POCT GLUCOSE DEVICE Routine 05/29/2024 7 :26 AM REGISTERED NURSE MIDWIFE EGFR Routine 05/29/2024 4:57 AM REGISTERED NURSE MIDWIFE DIFFERENTIAL AUTO Routine 05/29/2024 4:5 7 AM REGISTERED NURSE MIDWIFE COMPREHENSIVE METABOLIC PANEL Routine 05/29/2024 4:57 AM REGISTERED NURSE MIDWIFE CBC WITH AUTO DIFFERENTIAL Routine 05/29/2024 4:57 AM REGISTERED NURSE MIDWIFE POCT GLUCOSE DEVICE Routine 05/29/2024 2 :03 AM REGISTERED NURSE MIDWIFE HEMODIALYSIS Routine 05/29/2024 12:30 AM REGISTERED NURSE MIDWIFE POCT GLUCOSE DEVICE Routine 05/28/2024 9 :15 PM REGISTERED NURSE MIDWIFE POCT GLUCOSE DEVICE Routine 05/28/2024 5 :07 PM REGISTERED NURSE MIDWIFE POCT GLUCOSE DEVICE Routine 05/28/2024 11:56 AM REGISTERED NURSE MIDWIFE POCT GLUCOSE DEVICE Routine 05/28/2024 7 :35 AM REGISTERED NURSE MIDWIFE EGFR Routine 05/28/2024 2:40 AM REGISTERED NURSE MIDWIFE DIFFERENTIAL AUTO Routine 05/28/2024 2:4 0 AM REGISTERED NURSE MIDWIFE COMPREHENSIVE METABOLIC PANEL Routine 05/28/2024 2:40 AM REGISTERED NURSE MIDWIFE CBC WITH AUTO DIFFERENTIAL Routine 05/28/2024 2:40 AM REGISTERED NURSE MIDWIFE POCT GLUCOSE DEVICE Routine 05/28/2024 2 :30 AM REGISTERED NURSE MIDWIFE POCT GLUCOSE DEVICE Routine 05/27/2024 8 :48 PM REGISTERED NURSE MIDWIFE POCT GLUCOSE DEVICE Routine 05/27/2024 5 :37 PM REGISTERED NURSE MIDWIFE POCT GLUCOSE DEVICE Routine 05/27/2024 12:14 PM REGISTERED NURSE MIDWIFE MANUAL DIFFERENTIAL Routine 05/27/2024 2 :20 AM REGISTERED NURSE MIDWIFE EGFR Routine 05/27/2024 2:20 AM REGISTERED NURSE MIDWIFE COMPREHENSIVE METABOLIC PANEL Routine 05/27/2024 2:20 AM REGISTERED NURSE MIDWIFE CBC WITH AUTO DIFFERENTIAL Routine 05/27/2024 2:20 AM REGISTERED NURSE MIDWIFE URINALYSIS, MICROSCOPIC ONLY STAT 05/26/2024 7:25 PM REGISTERED NURSE MIDWIFE URINALYSIS AND REFLEX TO MICROSCOPIC AND CULTURE STAT 05/26/2024 7:25 PM REGISTERED NURSE MIDWIFE SEPSIS LACTATE WITH REFLEX Timed 05/26/2024 2:36 PM REGISTERED NURSE MIDWIFE XR CHEST 1 VIEW ED 05/26/2024 12:54 PM REGISTERED NURSE MIDWIFE INFLUENZA A/B, RSV, AND COVID-19 PCR STAT 05/26/2024 12:13 PM REGISTERED NURSE MIDWIFE BLOOD GAS, VENOUS STAT 05/26/2024 11:53 AM REGISTERED NURSE MIDWIFE EGFR STAT 05/26/2024 11:48 AM REGISTERED NURSE MIDWIFE DIFFERENTIAL AUTO STAT 05/26/2024 11:48 AM REGISTERED NURSE MIDWIFE SEPSIS LACTATE WITH REFLEX STAT 05/26/2024 11:48 AM REGISTERED NURSE MIDWIFE COMPREHENSIVE METABOLIC PANEL STAT 05/26/2024 11:48 AM REGISTERED NURSE MIDWIFE CBC WITH AUTO DIFFERENTIAL STAT 05/26/2024 11:48 AM REGISTERED NURSE MIDWIFE ECG 12-LEAD STAT 05/26/2024 11:43 AM REGISTERED NURSE MIDWIFE SEPSIS LACTATE WITH REFLEX Timed 05/19/2024 6:19 PM REGISTERED NURSE MIDWIFE XR CHEST PA LATERAL 2 VIEWS ED 05/19/2024 3:33 PM REGISTERED NURSE MIDWIFE EGFR STAT 05/19/2024 3:16 PM REGISTERED NURSE MIDWIFE DIFFERENTIAL AUTO STAT 05/19/2024 3:1 6 PM REGISTERED NURSE MIDWIFE PRO B-TYPE NATRIURETIC PEPTIDE STAT 05/19/2024 3:16 PM REGISTERED NURSE MIDWIFE SEPSIS LACTATE WITH REFLEX STAT 05/19/2024 3:16 PM REGISTERED NURSE MIDWIFE COMPREHENSIVE METABOLIC PANEL STAT 05/19/2024 3:16 PM REGISTERED NURSE MIDWIFE CBC WITH AUTO DIFFERENTIAL STAT 05/19/2024 3:16 PM REGISTERED NURSE MIDWIFE INFLUENZA A/B, RSV, AND COVID-19 PCR STAT 05/19/2024 3:05 PM REGISTERED NURSE MIDWIFE HEMOGLOBIN A1C Routine 05/04/2024 5:[address] ABDOMEN PELVIS WO CONTRAST Schedule Routine, Read Routine (OP Routine) 03/12/2024 4:55 PM REGISTERED NURSE MIDWIFE Abdominal pain, unspecified abdominal location POCT LIPID PANEL Routine 12/12/2023 11:22 AM CDT Hypercholesterolemia HEPATITIS PANEL, ACUTE Routine 11/16/2022 11:25 AM CDT from Last 3 Months or Most Recently Relevant to Health Maintenance Allergies Active Allergy Reactions Criticality Noted Date Comments Codeine Hives,Itching,Swelling Medium 12/26/2018 Pt is on percocet at home Medications citalopram (CeleXA) 20 mg tablet Take 1 tablet (20 mg total) by mouth daily 3 08/30/19 18 Active ALPRAZolam (XANAX) 1 mg tablet Take 1 tablet (1 mg total) by mouth every 12 hours as needed for anxiety Active calcitRIOL (ROCALTROL) 0.25 mcg capsule Take 1 capsule (0.25 mcg total) by mouth daily 06/20/19 22 Active carisoprodoL (SOMA) 350 mg tabletIndication s:Muscle Spasm Take 1 tablet (350 mg total) by mouth every 12 (twelve) hours as needed for muscle spasms Active fenofibrate (TRICOR) 54 mg tablet Take 1 tablet (54 mg total) by mouth daily 04/05/19 23 Active aspirin 81 mg enteric coated tablet Take 1 tablet (81 mg total) by mouth daily Active ondansetron (ZOFRAN) 4 mg tablet Take 1 tablet (4 mg total) by mouth every 6 (six) hours 12 tablet 09/27/19 23 Active doxazosin (CARDURA) 4 mg tablet Take 1 tablet (4 mg total) by mouth nightly Active oxyCODONE-acetam inophen (PERCOCET) 10-325 mg per tabletIndication s:Pain Take 1 tablet by mouth every 6 (six) hours as needed for pain Active simvastatin (ZOCOR) 10 mg tablet Take 1 tablet (10 mg total) by mouth nightly Active amLODIPine (NORVASC) 5 mg tabletIndication s:Essential hypertension Take 2 tablets (10 mg total) by mouth daily 60 tablet 11 09/30/19 23 Active naloxone 0.4 mg/mL syringe Infuse 1 mL into a venous catheter 12/11/19 22 Active calcifediol (Rayaldee) 30 mcg capsule,extended release 24 hr 3 (three) times a week Active calcium acetate,phosphat bind, (PHOSLO) 667 mg capsule Take 1 capsule (667 mg total) by mouth 3 (three) times a day with meals 04/20/19 25 026 Active allopurinoL (ZYLOPRIM) 100 mg tablet Take 1 tablet (100 mg total) by mouth 3 (three) times a week 12 tablet 1 05/08/[address] (PROTONIX) 40 mg EC tabletIndication s:Mucositis Prophylaxis Take 1 tablet (40 mg total) by mouth daily 30 tablet 1 05/07/19 25 026 Active guaiFENesin (ROBITUSSIN) syrup 100 mg/5 mL Take 10 mL (200 mg total) by mouth 4 (four) times a day as needed for cough 120 mL 05/06/19 25 Active acetaminophen (TYLENOL) 325 mg tablet Take 2 tablets (650 mg total) by mouth every 6 (six) hours as needed for pain 30 tablet 05/19/19 25 Active metoprolol XL (TOPROL-XL) 200 mg extended release tablet TAKE 1 TABLET BY MOUTH EVERY DAY 90 tablet 1 08/07/19 25 Active metoprolol XL (TOPROL-XL) 200 mg extended release tablet TAKE 1 TABLET BY MOUTH EVERY DAY 90 tablet 1 12/28/19 24 025 Discontinued Active Problems Problem Noted Date Diagnosed Date Acute hypoxic respiratory failure 05/26/2024 COPD exacerbation 05/26/2024 End stage renal disease 05/26/2024 Hypoxemia 05/04/2024 COVID 05/04/2024 Pneumonia of both lungs due to infectious organism, unspecified part of lung 05/03/2024 Hypoglycemia due to insulin 09/27/2022 Moderate protein-calorie malnutrition 05/28/2022 Hypoglycemia 05/27/2022 Adverse effect of amlodipine 05/26/2022 Bradycardia 05/26/2022 Perinephric hematoma 05/26/2022 History of skin graft 05/10/2022 Acute renal failure superimposed on chronic kidn ey disease 05/08/2022 Pulmonary embolism 07/31/2021 Permanent atrial fibrillation 02/17/2021 Obesity (BMI 30.0-34.9) 05/07/2019 Low back pain 08/08/2018 Hypercholesterolemia 08/08/2018 Chronic anticoagulation 09/05/2017 Chronic combined systolic an d diastolic CHF (congestive heart failure) ([facility]) 09/01/2015 Overview (07/02/2016): Chronic systolic heart failure [...] kidney disease) stage 4, GFR 15-29 ml/min ([facility]) 02/19/2013 Overview (07/02/2016): CKD (chronic kidney disease) stage 3, GFR 30-59 ml/min Dilated cardiomyopathy 02/19/2013 Overview (07/02/2016): Cardiomyopathy Assessment & Plan [...] syndrome 12/25/2010 Overview (07/02/2016): TOBACCO USE DISORDER Immunizations Immunization Administration Dates Next Due Influenza, Trivalent, High D ose, Split, Preservative Free, Intramuscular 12/27/2023 Social History Tobacco Use Types Packs/Day Years Used Date Smoking Tobacco: Every Day Cigarettes 0.3 57.4 Started: 1967 Passive Smoke Exposure: Past Smokeless Tobacco: Never Tobacco Cessation:Ready to Q uit: Not Asked; Counseling Given: Not Answered Comments:At heaviest smoking, smoked 1 ppd, last cigarette 08/11/2022 approx 1900 Last smoked yesterday 6-7 1800 Alcohol Use Standard Drinks/Week Comments No 0 (1 standard drink = 0.6 oz pur e alcohol) [facility] Utilities Answer Date Recorded In the past 12 months has [employer], gas, oil, or water [employer] threatened to shut off services in your home? No 05/28/2024 Social Connection and Isolat ion Panel [NHANES] Answer Date Recorded In a typical week, how many times do you talk on the phone with family, friends, or neighbors? More than three times a week 05/28/2024 How often do you get togethe r with friends or relatives? Once a week 05/28/2024 How often do you attend chur ch or yazidism services? Never 05/28/2024 Do you belong to any clubs o r organizations such as jewish groups, unions, fraternal or athletic groups, or school groups? Yes 05/28/2024 How often do you attend meet ings of the clubs or organizations you belong to? More than 4 times per year 05/28/2024 Are you , , di vorced, , never , or living with a partner? 05/28/2024 AUDIT-C Answer Date Recorded Q1: How often do you have a drink containing alc ohol? Never 09/02/2022 Average Number of Drinks Not on file 023 Frequency of Binge Drinking Not on file 10/2022 Overall Financial Resource Strain (CARDIA) Answe r Date Recorded How hard is it for you to pa y for the very basics like food, housing, medical care, and heating? Not very hard 05/28/2024 Hunger Vital Sign Answer Date Recorded Within the past 12 months, y ou worried that your food would run out before you got the money to buy more. Never true 05/29/19 25 Within the past 12 months, t he food you bought just didn't last and you didn't have money to get more. Never true 05/28/2024 PRAPARE - Transportation Answer Date Re corded In the past 12 months, has l ack of transportation kept you from medical appointments or from getting medications? No 05/2024 In the past 12 months, has l ack of transportation kept you from meetings, work, or from getting things needed for daily living? No 05/28/2024 Housing Stability Vital Sign Answer Edmond e [...] in a custodial (including now)? No 09/29/2022 Housing Stability Vital Sign Answer Edmond e Recorded In the last 12 months, was t here a time when you were not able to pay the mortgage or rent on time? No 05/28/2024 In the past 12 months, how m any times have you moved where you were living? 0 05/28/2024 At any time in the past 12 m [facility], were you homeless or living in a custodial (including now)? No 05/28/2024 Personal Safety Answer Date Recorded Have you ever been in or are you currently in a harmful physical or emotional relationship or is someone making you feel afraid or unsafe? Denies 05/26/2024 Education Answer Date Recorded What is the highest level of school you have completed or the highest degree you have received? 12th grade 05/10/2022 Sex and Gender Information Value Date Recorded Sex Assigned at Not on file Legal Sex Male 10:59 AM REGISTERED NURSE MIDWIFE Gender Identity Not on file Sexual Orientation Not on file Last Filed Vital Signs Vital Sign Reading Time Taken Comments Blood Pressure 128/74 05/29/2024 3:00 PM REGISTERED NURSE MIDWIFE Pulse 77 05/29/2024 3:00 PM REGISTERED NURSE MIDWIFE Temperature 36.2 C (97.1 F) 05/29/2024 3:00 PM REGISTERED NURSE MIDWIFE Respiratory Rate 18 05/29/2024 3:00 PM REGISTERED NURSE MIDWIFE Oxygen Saturation 92% 05/29/2024 3:00 PM REGISTERED NURSE MIDWIFE Inhaled Oxygen Concentration - - Weight 91.7 kg (202 lb 2.6 oz) 05/29/2024 12:35 PM REGISTERED NURSE MIDWIFE Height 182.9 cm (6') 05/26/2024 6:40 PM REGISTERED NURSE MIDWIFE Body Mass Index 27.42 05/26/2024 6:40 PM REGISTERED NURSE MIDWIFE Results * DEVICE CHECK - REMOTE (07/03/2024 3:39 PM CDT) Anatomical Region Laterality Modality Other Narrative 07/20/2024 10:59 AM CDT [employer] Single ICD Dx; GWENM, Afib. DOI 03/31/2015. [employer] Remote Home Monitoring. Routine VVI ICD remote. Normal device function. Battery function-2.94V, MOS2 9% remaining battery life to ALANIS. Charge time-14.6 seconds. Appropriate lead measurements noted. Presenting rhythm-VS, irregular (Afib). SANITATION MANAGER-0%. No ventricular arrhythmias noted. Medications; Toprol XL, Norvasc, Zocor. No AC d/t perinephric hematoma. See scanned report. Office device f/u 10/17/2024. [employer] remote f/u due in 6 months. Donna Parker RN Sana Phan MD [facility] PROCEDURES Final Result * XR CHEST 1 VIEW PORTABLE (05/29/2024 1:39 PM REGISTERED NURSE MIDWIFE) Anatomical Region Laterality Modality Body, Chest N/A Computed Radiogr aphy 05/29/2024 4:35 PM REGISTERED NURSE MIDWIFE Narrative 05/29/2024 4:39 PM REGISTERED NURSE MIDWIFE EXAM DESCRIPTION: XR CHEST 1 VIEW REASON FOR STUDY: tracking pneumonia Tracking Pneumonia. TECHNIQUE: 1 radiographic view(s) of the chest. COMPARISON: 05/19/2024, 05/26/2024. FINDINGS: LUNGS: Improvement in left lung base opacities, which appear linear and may be atelectasis. Please correlate clinically to exclude pneumonia. The right lung is clear. No pleural effusion or pneumothorax. HEART/MEDIASTINUM: Heart size and cardiomediastinal contours are unchanged. LINES/TUBES: Left subclavian approach pacemaker projects in unchanged position. BONES: No acute displaced fracture or aggressive bone lesion is seen. Visualized upper abdomen is grossly unremarkable IMPRESSION: Improvement in left lung base opacities, which appear linear and may be atelectasis. Please correlate clinically to exclude pneumonia. THIS IS AN ELECTRONICALLY VERIFIED FINAL REPORT 05/29/2024 4:39 PM - Electronically signed by Art Pyle M.D. MZ: MICHELLE Report ID: [id number] Reading Location: [id number] Procedure Note Art Pyle MD - 05/29/2024 EXAM DESCRIPTION: XR CHEST 1 VIEW REASON FOR STUDY: tracking pneumonia Tracking Pneumonia. TECHNIQUE: 1 radiographic view(s) of the chest. COMPARISON: 05/19/2024, 05/26/2024. FINDINGS: LUNGS: Improvement in left lung base opacities, which appear linear andmay be atelectasis. Please correlate clinically to exclude pneumonia. Theright lung is clear. No pleural effusion or pneumothorax. HEART/MEDIASTINUM: Heart size and cardiomediastinal contours areunchanged. LINES/TUBES: Left subclavian approach pacemaker projects in unchanged position. BONES: No acute displaced fracture or aggressive bone lesion is seen. Visualized upper abdomen is grossly unremarkable IMPRESSION: Improvement in left lung base opacities, which appear linear and may be atelectasis. Please correlate clinically to exclude pneumonia. THIS IS AN ELECTRONICALLY VERIFIED FINAL REPORT 05/29/2024 4:39 PM - Electronically signed by Art Pyle M.D. MZ: MZ Report ID: [id number] Reading Location: [place] [address] Aamir Thakkar MD IMG XR PROCEDURES Final Resul t * POCT glucose (05/29/2024 11:50 AM REGISTERED NURSE MIDWIFE) Glucose, POC 97 70 - 199 mg/dL Blood 05/29/2024 11:5 0 AM REGISTERED NURSE MIDWIFE 05/29/2024 11:50 AM REGISTERED NURSE MIDWIFE Ramiro Perez DO LAB POCT ORDERABLES - DEVICE Final Result Performing Organization Address [facility] Co de Phone Number [facility] [address] [facility] Department [place] [address] * POCT glucose (05/29/2024 7:26 AM REGISTERED NURSE MIDWIFE) Glucose, POC 128 70 - 199 mg/dL Blood 05/29/2024 7:26 AM REGISTERED NURSE MIDWIFE 05/29/2024 7:26 AM REGISTERED NURSE MIDWIFE Ramiro Perez DO LAB POCT ORDERABLES - DEVICE Final Result Performing Organization Address [facility] Co de Phone Number [facility] ([place]) [address] [facility] Department [place] [address] * (ABNORMAL) eGFR (05/29/2024 4:57 AM REGISTERED NURSE MIDWIFE) eGFR 9(L) >=60 mL/min/1. 73 m2 Comment: Interpretive Data Reference Interval Normal >/= 90 mL/min/1.73m2 Mildly decreased* 60 - 89 mL/min/1.73m2 Mildly to moderately decreased 45 - 59 mL/min/1.73m2 Moderately to severely decreased 30 - 44 mL/min/1.73m2 Severely decreased 15 - 29 mL/min/1.73m2 Kidney Failure < 15 mL/min/1.73m2 *Relative to young adult level Estimated glomerular [...] interpretive data was last reviewed 2021. Blood 05/29/2024 4:57 AM REGISTERED NURSE MIDWIFE 05/29/2024 5:45 AM REGISTERED NURSE MIDWIFE us Ilya Willard MD LAB BLOOD ORDERABLES Final Resul t [facility]) [address] [facility] Department [place] [address] * (ABNORMAL) Differential, auto (05/29/2024 4:57 AM REGISTERED NURSE MIDWIFE) Neutrophil abs 2.7 1.5 - 6.5 K/cumm Imm gran abs 0.0 0.0 - 0.1 K/cumm [facility] Lymphocyte abs 0.3(L) 0.8 - 3.3 K/cumm [facility] Monocyte abs 0.2 0.2 - 0.8 K/cumm [facility] Eosinophil abs 0.0 0.0 - 0.5 K/cumm [facility] Basophil abs 0.0 0.0 - 0.1 K/cumm [facility] Neutrophil pct 84.3 % [facility] Comment: Interpretive Data Percent cell count reference ranges are not reported, since discordance with absolute values may lead to misinterpretation of CBC data. Current Interpretive Data was last revised on 2017. Imm gran pct 0.9 % [facility] Comment: Interpretive Data Percent cell count reference ranges are not reported, since discordance with absolute values may lead to misinterpretation of CBC data. Current Interpretive Data was last revised on 2017. Lymphocyte pct 7.9 % [facility] Comment: Interpretive Data Percent cell count reference ranges are not reported, since discordance with absolute values may lead to misinterpretation of CBC data. Current Interpretive Data was last revised on 2017. Monocyte pct 6.3 % [facility] Comment: Interpretive Data Percent cell count reference ranges are not reported, since discordance with absolute values may lead to misinterpretation of CBC data. Current Interpretive Data was last revised on 2017. Eosinophil pct 0.6 % [facility] Comment: Interpretive Data Percent cell count reference ranges are not reported, since discordance with absolute values may lead to misinterpretation of CBC data. Current Interpretive Data was last revised on 2017. Basophil pct 0.0 % [facility] Comment: Interpretive Data Percent cell count reference ranges are not reported, since discordance with absolute values may lead to misinterpretation of CBC data. Current Interpretive Data was last revised on 2017. Blood 05/29/2024 4:57 AM REGISTERED NURSE MIDWIFE 05/29/2024 5:45 AM REGISTERED NURSE MIDWIFE us Ilya Willard MD LAB BLOOD ORDERABLES Final Resul t [facility] [address] [facility] Department [place] [address] * (ABNORMAL) CBC with auto differential (05/29/2024 4:57 AM REGISTERED NURSE MIDWIFE) Pathologist [facility] WBC 3.2(L) 3.8 - 9.9 K/cumm Hgb 10.1(L) 13.0 - 17.5 g/dL [facility] Hct 31.7(L) 38.9 - 50.3 % [facility] Plt 128(L) 150 - 400 K/cumm [facility] MPV 10.9 9.1 - 12.3 fL [facility] RBC 3.25(L) 4.30 - 5.80 M/cumm [facility] MCV 97.5(H) 81.3 - 96.4 fL [facility] MCH 31.1 27.1 - 33.3 pg [facility] MCHC 31.9(L) 32.3 - 35.7 g/dL [facility] RDW CV 13.8 11.1 - 14.9 % [facility] RDW SD 49.2(H) 35.7 - 48.1 fL [facility] NRBC abs 0.00 0.00 - 0.01 K/cumm [facility] Blood 05/29/2024 4:57 AM REGISTERED NURSE MIDWIFE 05/29/2024 5:45 AM REGISTERED NURSE MIDWIFE us Ilya Willard MD LAB BLOOD ORDERABLES Final Resul t [facility] [address] [facility] Department [place] [address] * (ABNORMAL) Comprehensive metabolic panel (05/29/2024 4:57 AM REGISTERED NURSE MIDWIFE) Pathologist [facility] Sodium 133(L) 135 - 145 mmol/L Potassium, pl 4.7 3.3 - 4.9 mmol/L [facility] Chloride 95(L) 97 - 110 mmol/L [facility] CO2 21(L) 22 - 32 mmol/L [facility] Anion gap 18(H) 2 - 15 mmol/L [facility] BUN 70(H) 6 - 25 mg/dL [facility] Creatinine 6.01(H) 0.80 - 1.30 mg/dL [facility] Glucose 123 70 - 199 mg/dL [facility] Comment: Interpretive Data Fasting glucose >/= 126 mg/dl is diagnostic for diabetes. Fasting is defined as no caloric intake for at least 8 hours. Fasting glucose between 100 mg/dl to 125 mg/dl is diagnostic of prediabetes. In a patient with classic symptoms of hyperglycemia or hyperglycemic crisis, a random glucose >/= 200 mg/dl is diagnostic for diabetes. In the absence of unequivocal hyperglycemia, results should be confirmed by repeat testing. The classification and Diagnosis of Diabetes Diabetes Care 2021; 46: S19-S40. Current interpretive data was last revised 2022. Calcium 8.1(L) 8.5 - 10.3 mg/dL [facility] Bilirubin, total 0.3 0.1 - 1.2 mg/dL [facility] Protein, pl 6.1(L) 6.5 - 8.5 g/dL [facility] Albumin 3.4(L) 3.5 - 5.0 g/dL [facility] Alk phos 54 40 - 130 Units/L [facility] ALT 11 7 - 55 Units/L [facility] AST 20 10 - 50 Units/L [facility] Comment: Hemolysis present. Results may be affected. Slightly Hemolyzed Specimen Blood 05/29/2024 4:57 AM REGISTERED NURSE MIDWIFE 05/29/2024 5:45 AM REGISTERED NURSE MIDWIFE us Ilya Willard MD LAB BLOOD ORDERABLES Final Resul t [facility] ([place] [address] [facility] Department of Laboratories [place], [place] [id number] * POCT glucose (05/29/2024 2:03 AM REGISTERED NURSE MIDWIFE) Glucose, POC 95 70 - 199 mg/dL Blood 05/29/2024 2:03 AM REGISTERED NURSE MIDWIFE 05/29/2024 2:03 AM REGISTERED NURSE MIDWIFE us Sarahi Santamaria MD LAB POCT ORDERABLES - DEVICE Fi nal Result [facility] ([place]) [address] [facility] Department [place] [address] * POCT glucose (05/28/2024 9:15 PM REGISTERED NURSE MIDWIFE) Glucose, POC 136 70 - 199 mg/dL Specimen (Source) Anatomical Location / Laterality Collection [id number]|2024-08-13 10:21:00|2024-08-13 05:20:00|XMS_ITS|BKG DAEMON|External Medical Summaries|[id number]|" [place] OFF/OP CNSLTJ NEW/EST MOD 40 [facility] Encounter Summary Created on: August 13, 2024 YOU MCLEAN : 1950 Sex: Male Author Name [facility] [facility] [place] Address [address] [place] [address] Care Team Providers Care Electroplater Helper Name Role Phone JOSE TORO Primary Care [...] AID (WNR) Mar 28, 2013 MEDICAI D [id number] YOU MCLEAN PATIENT MEDICARE (WNR) MEDICARE (M) PART A Jan 27, 2016 PART A [id number] [phone] YOU MCLEAN PATIENT MEDICARE (WNR) MEDICARE (M) PART B Jan 27, 2016 PART B [id number] YOU MC[place] PATIENT MEDICARE (WNR) MEDICARE (M) PART A Jan 27, 2016 PART A [id number] [phone] YOU MCLEAN PATIENT MEDICARE (WNR) MEDICARE (M) PART B Jan 27, 2016 PART B [id number] YOU MCLEAN PATIENT Selected Encounter This section includes the information on record at [place] for the Encounter. Date/Time Encounter Type Encounter Description Reason Provider Source Nov 14, 2023 10:00 AM OFF/OP CNSLTJ NEW/EST MOD 40 CARDIAC STRESS TEST ICD-10-CM N18.6 End stage renal disease RAYA ROLAND Litzy Encounter Template Text not used by [place] Assessments - Encounter Diagnoses This section includes the primary and secondary diagnoses documented for the Encounter. Date/Time Primary/Secondary Diagnosis Diagnosis Name Provider Source Nov 14, 2023 02:13 PM PRIMARY End stage renal disease JONAS GROSS [facility] Plan of Treatment: Future Appointments (+ 6 months) and Future Tests (+/- 45 days) The Plan of Treatment section includes future care activities for the patient from all [place] treatmentfacilities. This section includes future appointments and future orders which are active, pending or scheduled. Future Appointments This section includes appointments that were scheduled to occur 6 months from the date of the Encounter, up to a maximum of 20 appointments. The data comes from all [place] treatment facilities. Appointment Date/Time Appointment Type Appointme nt Facility Name Nov 23, 2023 08:30 AM AMBULATORY - MEDICINE [facility] Dec 09, 2023 11:00 AM AMBULATORY - MEDICINE [facility] Dec 27, 2023 08:00 AM AMBULATORY - NONE [facility] Dec 27, 2023 08:30 AM AMBULATORY - MEDICINE [facility] Jan 02, 2024 10:00 AM AMBULATORY - MEDICINE [facility] Jan 04, 2024 08:00 AM AMBULATORY - MEDICINE [facility] Jan 04, 2024 11:00 AM AMBULATORY - SURGERY . Leonela GONZALEZ [facility] Jan 23, 2024 01:00 PM AMBULATORY - NONE [facility] Social History: Smoking Status (Most current) and Tobacco Use (All prior to encounter date) This section includes the most current, and the historical, smoking and tobacco- related health factors from the [place] facility where the Encounter took place. Current Smoking Status This section includes the most current smoking, or tobacco-related health factor, from the [place] facility where the Encounter took place. Date/Time Current Smoking Status Comment Facil ity Dec 26, 2019 09:17 AM VA-TOBACCO USER EVERY DAY [facility] Tobacco Use History This section includes a history of the smoking, or tobacco-related health factors, that were collected on or before the date of the Encounter. The data comes from the [place] facility where the Encounter took place. 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 Sep 21, 2000 07:[address] [facility] Jul 21, 2000 01:43 PM CURRENT TOBACCO USER Stef[facility] Advance Directives: All historical and current Section Date Range: From patient's date of to the date document was created. This section includes ALL of a patient's completed or amended [place] Advance and Rescinded Directives. The entries below indicate that a directive exists for the patient, but an actual copy is not included with this document. The data comes from all [place] facilities. Date Advance Directives Provider Source August 05, 1995 ADVANCE DIRECTIVE ROGER MICHELLEKYLE [facility] Radiology Reports: +/- 30 days of the [...] the Encounter. The data comes from all [place] treatment facilities. Date/Time Radiology Report Provider Source Nov 14, 2023 08:07 AM NM MYOCARDIAL P SP ECT STRESS/REST-P: YUO MCLEAN [id number] -[id number] M Exm Date: NOV 14, 2023@08:07 Req Phys: MONAE URBINA Loc: -RENAL CHR ASSIST TXP EVAL ( Img Loc: -NUCLEAR MEDICINE Service: Unknown [facility] [address] [place] [address] (Case [id number] COMPLETE) NM MYOCARDIAL PERF SPECT STRESS/R(NM Detailed) CPT:47735 Reason for Study: TRANSPLANT EVAL (Case 206 COMPLETE) TC-99M TETROFOSMIN (MYOVIEW) (NM Detailed) CPT:A9502 (Case 207 COMPLETE) TC-99M TETROFOSMIN (MYOVIEW), PE(NM Detailed) CPT:A9502 (Case 208 COMPLETE) NON-HEU TC-99M ADD-ON PER STUDY D(NM Detailed) CPT:Q9969 (Case 624 COMPLETE) REGADENOSON INJECTION (NM Detailed) CPT:J2785 Clinical History: TRANSPLANT EVAL Report Status: Verified Date Reported: NOV 14, 2023 Date Verified: NOV 14, 2023 [place] Operator E-Sig:/ES/Gama Mack MD,PhD Report: PATIENT NAME: YOU MCLEAN CASE #: [id number], [id number], [id number], [id number] EXAMINATION: Rest/Lexiscan Stress Gated SPECT Myocardial Imaging [...] code: 1000. Dictated by Forest Sierra MD (Vessel Crew Member). I, Gama Mack, have reviewed the images and report and concur with these findings. Primary Interpreting Staff: Gama Mack MD,PhD, Nuclear Medicine Physician ([place] [employer] Operator) Primary Interpreting Resident: FOREST SIERRA, Resident Physician /GAMA GARCIA [facility] Encounter Notes: All associated encounter notes [...] reviewed the stress test data with the Battery Mechanic, Dr. GROSS on that date and I [...] and quality of life were discussed The was advised that the results of Nuclear [...] 48 minutes were expended for this encounter. /es/ Raya Roland MD, FACC, FACP STAFF PHYSICIAN - Cardiology Signed: 11/14/2023 22:57 Receipt Acknowledged By: 11/15/2023 15:32 /krystal/ [facility] PAJadeC PHYSICIAN NET APPLICATIONS DEVELOPER - NEPHROLOGY --- Original Document --- 11/14/23 STRESS TEST PROCEDURE: STRESS TEST PROCEDURE NOTE Vitals Pulse: 82 (04/06/2022 10:15) BP: 154/105 (04/06/2022 10:15) RESP: 16 (12/29/2021 12:51) Height: 72 in [182.9 cm] (12/26/2018 08:57) Weight: 225.9 lb [102.47 kg] (12/29/2021 12:51) Reason for consult: pre-transplant work-up Referring provider: MONAE URBINA His chart is reviewed. History is taken [...] or sudden SOCIAL HISTORY: TOBACCO USE - 1/4 ppd ALCOHOL USE - No COCAINE - [...] mEq/L 02/09/2023 11:02 CHLORIDE: 96 mEq/L L (11/15/23 11:02) Co2: CARBON DIOXIDE 30 mEq/L 02/09/2023 [...] report to follow. /krystal/ JONAS GROSS MD GROUP WORK PROGRAM DIRECTOR Signed: 11/14/2023 14:13 /krystal/ Raya Roland MD, FACC, FACP STAFF PHYSICIAN - Cardiology Cosigned: 11/14/2023 22:50 RAYA ROLAND [facility] Nov 14, 2023 03:35 PM CARDIOLOGY [...] VISTA IMAGING ([employer] Exercise) AUTO-INSTRUMENT DIAGNOSIS Procedure: 64569 Stress Test Release Status: Released Off-Line Verified Date Verified: Nov 14, 2023@15:35:40 00682 Protocol Name: [email or web address] [id number] Time In Exercise Phase:00:00:17 22941 Max. Systolic BP: 203 mmHg 48229 Max Diastolic BP: 90 mmHg 56534 Max Heart Rate: 93 BPM 73561 Max Predicted Heart Pof986 BPM 82032 Reason For Termination:LEXISCAN COMPLETE 23298 Reason for Test: TRANSPLANT EVALUATION 74195 Target HR Formula: (220 - Age)*100% 43205 Overall Impression: SEE STRESS TEST PROCEDURE NOTE for DETAILS Administrative Closure: 11/14/2023 by: CLINICAL,DEVICE PROXY SERVICE CLINICAL,DEVICE PROXY SERVICE [facility] Nov 14, 2023 11:14 AM CARDIOLOGY [...] Reason for consult: pre-transplant work-up Referring provider: MONAE URBINA His chart is reviewed. History is taken [...] or sudden SOCIAL HISTORY: TOBACCO USE - 1/ ppd ALCOHOL USE - No COCAINE - [...] report to follow. /krystal/ JONAS GROSS MD GROUP WORK PROGRAM DIRECTOR Signed: 11/14/2023 14:13 /krystal/ Raya Roland MD, [facility], FACP STAFF PHYSICIAN - Cardiology Cosigned: 11/14/2023 22:50 11/14/2023 ADDENDUM STATUS: COMPLETED I saw, interviewed and examined the patient on 11/14/2023, and I have reviewed the patient's pertinent notes, diagnostic studies,and medications in his Electronic Medical Records. I reviewed the stress test data with the Battery Mechanic, Dr. GROSS on that date and I [...] and quality of life were discussed The was advised that the results of Nuclear Medicine Images will become available later this afternoon and they will be forwarded to the patient's referring provider who will communicate with the [place]. He acknowledged understanding of the concerns discussed. The left the Stress Test Lab in stable condition with NO symptoms. Thank you for your referral and allowing us to participate in care of your patient. 48 minutes were expended for this encounter. /krystal/ Raya Roland MD, FACC, FACP STAFF PHYSICIAN - Cardiology Signed: 11/14/2023 22:57 Receipt Acknowledged By: * AWAITING SIGNATURE * MONAE URBINA JOSHUA M [facility] Nov 14, 2023 10:55 AM CARDIOLOGY [...] N Complications: NONE Stress ECG transferred to [employer] system: Y Stress ECG given to Dr. Gross for review at the end of the test Patient discharged from stress lab in stable condition See MD note for further details. /krystal/ DAVIN SUAREZ [facility] Stress Heavy Duty Truck Mechanic Signed: 11/14/2023 10:57 DAVIN SUAREZ [facility] "
--- OUTSIDE RECORDS SUMMARY | 2024-08-13 10:21 | XMS_ITS | Clinical Summary ---
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 [facility] ([place]) Neutrophil pct 84.3 % [facility] ([place]) Comment: Interpretive Data Percent cell count reference ranges are not reported, since discordance with absolute values may lead to misinterpretation of CBC data. Current Interpretive Data was last revised on 2017. Imm gran pct 0.9 % [facility] ([place]) Comment: Interpretive Data Percent cell count reference ranges are not reported, since discordance with absolute values may lead to misinterpretation of CBC data. Current Interpretive Data was last revised on 2017. Lymphocyte pct 7.9 % [facility] ([place]) Comment: Interpretive Data Percent cell count reference ranges are not reported, since discordance with absolute values may lead to misinterpretation of CBC data. Current Interpretive Data was last revised on 2017. Monocyte pct 6.3 % [facility] ([place]) Comment: Interpretive Data Percent cell count reference [...] revised on 2017. Blood 05/29/2024 4:57 AM INTERCEPTOR OPERATOR 05/29/2024 5:45 AM INTERCEPTOR OPERATOR Ilya Willard MD LAB BLOOD ORDERABLES Final Resul t [facility] ([place]) 1 [facility] [place] [address] * (ABNORMAL) CBC with auto differential (05/29/2024 4:57 AM INTERCEPTOR OPERATOR) WBC 3.2(L) 3.8 - 9.9 K/cumm Hgb [...] [facility] ([place]) Blood 05/29/2024 4:57 AM INTERCEPTOR OPERATOR 05/29/2024 5:45 AM INTERCEPTOR OPERATOR us Ilya Willard MD LAB BLOOD ORDERABLES Final Resul t BUNNY [facility] ([place]) 1 [facility] [place] [address] * (ABNORMAL) Comprehensive metabolic panel (05/29/2024 4:57 AM INTERCEPTOR OPERATOR) Sodium 133(L) 135 - 145 mmol/L Potassium, pl 4.7 3.3 - 4.9 mmol/L [facility] ([place]) Chloride 95(L) 97 - 110 mmol/L [facility] ([place]) CO2 21(L) 22 - 32 mmol/L [facility] ([place]) Anion gap 18(H) 2 - 15 mmol/L [facility] ([place]) BUN 70(H) 6 - 25 mg/dL [facility] ([place]) Creatinine 6.01(H) 0.80 - 1.30 mg/dL [facility] ([place]) Glucose 123 70 - 199 mg/dL [facility] ([place]) Comment: Interpretive Data Fasting glucose >/= 126 mg/dl is diagnostic for diabetes. Fasting is defined as no caloric intake for at least 8 hours. Fasting glucose between 100 mg/dl to 125 mg/dl is diagnostic of prediabetes. In a patient with classi
--- OUTSIDE RECORDS SUMMARY | 2024-08-13 10:21 | XMS_ITS | Patient Health Record ---
Author Organization [facility] Address [address] [place] [address] [address] [place], [place] [id number] Care Team Providers Care Public Relations Studies Director Name Role Phone Morgan Mercado Primary Care Provider Regino Engel Unavailable [phone] Allergies No Known Allergies Reason For Referral No Information Medications Medication SIG (Take, Route, Frequency, Duration) Notes Start Date End Date Status oxyCODONE-Acetaminoph en 10-325 MG 1 tablet as needed Orally every 6 hrs Active Ondansetron HCl 4 MG TAKE 1 TABLET BY MOUTH EVERY DAY Orally Once a day Active ALPRAZolam 0.5 MG 1 tablet Orally four times a day Active Warfarin Sodium 7.5 MG 1 tablet Orally Once a day Not-Taking Soma 350 MG 1 tablet as needed Orally three times a day Active Lasix 40 MG 1 tablet Orally Once a day Not-Taking Calcitriol 0.25 MCG TAKE 1 CAPSULE BY MOUTH EVERY DAY for 90 Active Gemfibrozil 600 MG 1 tablet Orally Twic e a day Active Furosemide 20 MG 1 tablet Orally Once a day Not-Taking Metoprolol Succinate ER 200 MG 1 tablet Orally Once a day Active Colchicine 0.6 MG TAKE 2 TABS THE FIRS T DAY OF FLARE THEN 1 TAB DAILY FOR 4 DAYS, ONLY USE MED DURING GOUT FLARES Active Tresiba FlexTouch 100 UNIT/ML as directed Subcutaneous 20 units pm Active Doxazosin Mesylate 4 MG TAKE 1 TABLET BY MOUTH EVERY DAY for 90 Active Simvastatin 10 MG 1 tablet in the evening Orally Once a day for 30 day(s) Active Glimepiride 4 MG 1 tablet with breakfast or the first main meal of the day Orally Once a day Not-Taking Allopurinol 100 MG 1 tablet Orally twic e a day Active Lisinopril 40 MG 1 tablet Orally Once a day Not-Taking Social History Alcohol: Question Answer Notes Did you have a drink containing alcohol in the p ast year? 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[place] Pt was smoker for 35 years, now smoke less than one pack per day, does not drink alcohol, 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 Pt was smoker for 35 years, now smoke less than one pack per day, does not drink alcohol, 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 Pt was smoker for 35 years, now smoke less than one pack per day, does not drink alcohol, 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[place] Pt was smoker for 35 years, now smoke less than one pack per day, does not drink alcohol, 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 Pt was smoker for 35 years, now smoke less than one pack per day, does not drink alcohol, 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[place] Pt was smoker for 35 years, now smoke less than one pack per day, does not drink alcohol, 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[place] Pt was smoker for 35 years, now smoke less than one pack per day, does not drink alcohol, 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 Pt was smoker for 35 years, now smoke less than one pack per day, does not drink alcohol, 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 Pt was smoker for 35 years, now smoke less than one pack per day, does not drink alcohol, 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[place] Pt was smoker for 35 years, now smoke less than one pack per day, does not drink alcohol, 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 Pt was smoker for 35 years, now smoke less than one pack per day, does not drink alcohol, 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[place] Pt was smoker for 35 years, now smoke less than one pack per day, does not drink alcohol, 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 Pt was smoker for 35 years, now smoke less than one pack per day, does not drink alcohol, 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[place] Pt was smoker for 35 years, now smoke less than one pack per day, does not drink alcohol, 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 Pt was smoker for 35 years, now smoke less than one pack per day, does not drink alcohol, 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[place] Problems Problem Type SNOMED Code ICD Code Onset Dates Problem Status W/U Status Risk Notes Problem Hypertension (70916439) hypertension (401.9) Active confirmed Problem Chronic kidney disease stage 3 (636296783) Chronic kidney disease, Stage III (moderate) (585.3) Active confirmed Problem Chronic kidney disease stage 3 (099038904) Chronic kidney disease, stage 3 (moderate) (N18.3) Active confirmed Problem 30378757 Essential (prima ry) hypertension (401.9) Active confirmed Problem 920604810 Chronic kidney disease, stage 1 (N18.1) Active confirmed Problem 28648498 Vitamin D deficiency, unspecified (E55.9) Active confirmed Problem 58295790 Congestive heart failure (I50.9) Active confirmed Problem 21890430 Atrial fibrillat ion (I48.91) Active confirmed Problem 222114501 Chronic kidney disease, stage III (moderate) (N18.3) Active confirmed Problem 04273152 Type 2 diabetes mellitus with diabetic chronic kidney disease (E11.22) Active confirmed Problem Secondary hyperparathyroidism (28395195) Secondary hyperparathyroidism of renal origin (N25.81) Active confirmed Problem 03146837 Gout (M10.9) Active confirmed Problem Hyperparathyroidism due to renal insufficiency (30164539) Secondary hyperparathyroidism, renal (N25.81) Active confirmed Problem Primary malignant neoplasm of kidney (41619465) 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) Active confirmed Problem 357941863 Chronic kidney disease, stage 3 unspecified (N18.30) Active confirmed Problem 882643070 Stage 3 chronic kidney disease, unspecified whether stage 3a or 3b CKD (N18.30) Active confirmed Plan Of Treatment Pending Test Test Name Order Date Magnesium, Serum 04/09/2011 Magnesium, Serum 01/12/2012 Urinalysis, Complete 04/09/2011 CBC With Differential/Platelet 1 PTH, Intact 12/11/2010 PTH, Intact 02/07/2013 PTH, Intact 08/08/2013 PTH, Intact 04/09/2011 PTH, Intact 11/21/2013 PTH, Intact 03/13/2014 PTH, Intact 07/01/2015 PTH, Intact 02/08/2018 PTH, Intact 03/07/2019 PTH, Intact 03/18/2020 PTH, Intact 06/03/2021 PTH, Intact 09/16/2021 Vitamin D, 25-Hydroxy 04/09/2011 Renal Panel (10) 04/09/2011 Renal Panel (10) 12/11/2010 Renal Panel (10) 01/12/2012 Renal Panel (10) 09/16/2021 Renal Panel (10) 06/03/2021 Renal Panel (10) 08/29/2019 Renal Panel (10) 03/18/2020 random urine protein to creatinine ratio 04/09/2011 HEMOGLOBIN A1C 02/08/2018 HEMOGLOBIN A1C 03/18/2020 *PTH, INTACT (WITHOUT CALCIUM) RENAL FUNCTION PANEL W/O eGFR 12/10/2020 RENAL FUNCTION PANEL W/O eGFR 09/10/2020 MAGNESIUM 09/10/2020 MAGNESIUM 12/10/2020 PTH, INTACT AND CALCIUM 09/10/2020 Magnesium 06/03/2021 Magnesium 09/16/2021 Magnesium 02/08/2018 Magnesium 08/30/2018 Magnesium 03/18/2020 Magnesium 08/29/2019 Magnesium 07/01/2015 Magnesium 03/07/2019 Magnesium 01/07/2016 Magnesium 06/02/2016 Magnesium 12/08/2016 Magnesium 04/22/2015 Vitamin D, 25 Hydroxy 03/07/2019 Vitamin D, 25 Hydroxy 03/18/2020 Vitamin D, 25 Hydroxy 08/30/2018 Vitamin D, 25 Hydroxy 06/03/2021 Vitamin D, 25 Hydroxy 09/16/2021 CBC 03/07/2019 CBC 11/21/2013 Renal Panel 03/13/2014 Renal Panel 07/01/2015 Renal Panel 09/11/2014 Renal Panel 04/22/2015 Renal Panel 02/08/2018 Renal Panel 12/08/2016 Renal Panel 06/02/2016 Renal Panel 01/07/2016 Renal Panel 02/07/2013 Renal Panel 11/21/2013 Renal Panel 08/08/2013 Renal Panel 08/30/2018 Renal Panel 03/07/2019 PTH Intact 08/30/2018 HEMOGLOBIN A1C 08/30/2018 Future Test Test Name Order Date HEMOGLOBIN A1C 11/11/2021 Insurance Providers Payer Name Payer Address Payer Phone Subscriber Number Group Number Insured Name Patient Relationship to Insured Coverage Start Date Coverage End Date [place] [address] [address] [place] [address] [id number] Lencho Carranza Self - patient is the insured Medical (General) History Medical History History ICD Code ckd baseline creatine 1.5 gout hypertension Vitamin d deficiency sleep apnea malaria in [place] bulging disk neuropathy chronic back apin atrial fibrillation aortic anneurysm CAD: cardiac cath at [facility] no si gnificant CAD CMP: has AICD DM Surgical History Surgery Date(Month/Year) laminectomy appendectomy
--- OUTSIDE RECORDS SUMMARY | 2024-08-13 10:21 | XMS_ITS | Clinical Summary ---
Author Organization [facility] Facility Address [address] [place] [address] Care Team Providers Care Director Building Name Role Phone Morgan Mercado MD Primary [...] mouth every night Active ergocalciferol 1.25 MG (16738 UT) capsule Take 50,000 Units by mouth [...] Encounters Date Type Department Care Team Description 08/07/2024 Orders Only [facility]. [address] [place] [address] Aamir Thakkar MD 07/31/2024 Orders Only [facility]. [address] [place] [phone] Aamir Thakkar MD 07/24/2024 Orders Only [facility]. [address] [place] [address] Aamir Thakkar MD 07/17/2024 Orders Only [facility]. [address] [place] [address] Aamir Thakkar MD 07/10/2024 Orders Only [facility]. [address] [place] [phone] Aamir Thakkar MD 07/03/2024 Orders Only [facility] [address] [place] [address] Aamir Thakkar MD 06/26/2024 Orders Only [facility]. [address] [place] [address] Aamir Thakkar MD 06/23/2024 Orders Only [facility]. [address] [place] [phone] Aamir Thakkar MD 06/19/2024 Orders Only [facility] [address] [place] [address] Aamir Thakkar MD 06/14/2024 Orders Only [facility]. [address] [place] [address] Aamir Thakkar MD 06/12/2024 Orders Only [facility]. [address] [facility] [facility] [place] [address] Aamir Thakkra MD 06/05/2024 Orders Only [facility] [address] [place] [address] Aamir Thakkar MD 05/31/2024 Orders Only [facility]. [address] [place] [phone] Aamir Thakkar MD 05/22/2024 Orders Only [facility] [address] [place] [address] Aamir Thakkar MD 05/19/2024 Orders Only [facility]. [address] [facility] [place] [address] Aamir Thakkar MD from Last 3 Months [...] 77 11/16/2022 10:19 AM CDT Temperature 36.3 C (97.4 F) 11/16/2022 10:19 AM CDT Respiratory Rate - - Oxygen Saturation 96% 11/16/2022 10:19 AM CDT Inhaled Oxygen Concentration - - Weight 98.6 kg (217 lb 5 oz) 11/16/2022 10:19 AM CDT Height 182.9 cm (6') 05/31/2022 9:47 AM DERRICK OPERATOR Body Mass Index 29.47 05/31/2022 9:47 AM DERRICK OPERATOR Plan of Treatment Health Maintenance Due Date Last Done Comments Colorectal Cancer Screening: Annual FOBT 02/06/2000 Colorectal Cancer Screening: Colonoscopy 02/06/2000 Colorectal Cancer Screening: Sigmoidoscopy 02/06/2000 Hepatitis B Vaccine (1 of 3 - Risk 3-dose series) 2011 Pneumococcal Vaccine: 50+ Ye ars (2 of 2 - PCV) 07/14/2013 07/14/2012 Diabetes: Ophthalmology Exam 05/28/2022 Diabetes: Pedal Pulse Checked 05/28/2022 Diabetes: Sensory Foot Exam 05/28/2022 Diabetes: Visual Foot Exam 05/28/2022 Diabetes: Hemoglobin A1C 08/01/2024 025, 10/13/2022, 09/28/2022, Additional history exists Influenza Vaccine Completed 01/05/2024, 01/04/2023 Procedures Procedure Name Priority Date/Time Associated Diagnosis Comments HD KINETICS Routine 08/07/2024 POST CHEMISTRY Routine 08/07/2024 TRACE ELEMENTS Routine 08/07/2024 CHEMISTRY Routine 08/07/2024 CHEMISTRY Routine 08/07/2024 HEMATOLOGY Routine 08/07/2024 HEMATOLOGY Routine 07/31/2024 HEMATOLOGY Routine 07/24/2024 HEMATOLOGY Routine 07/17/2024 HD KINETICS Routine 07/10/2024 POST CHEMISTRY Routine 07/10/2024 CHEMISTRY Routine 07/10/2024 HEMATOLOGY Routine 07/10/2024 HEMATOLOGY Routine 07/03/2024 HEMATOLOGY Routine 06/26/2024 HEMATOLOGY Routine 06/23/2024 HEMATOLOGY Routine 06/19/2024 CHEMISTRY Routine 06/14/2024 HEMATOLOGY Routine 06/12/2024 HD KINETICS Routine 06/05/2024 POST CHEMISTRY Routine 06/05/2024 CHEMISTRY Routine 06/05/2024 SPECIAL CHEMISTRY Routine 06/05/2024 CHEMISTRY Routine 06/05/2024 HEMATOLOGY Routine 06/05/2024 HEMATOLOGY Routine 05/31/2024 HEMATOLOGY Routine 05/22/2024 HD KINETICS Routine 05/19/2024 CHEMISTRY Routine 05/19/2024 POST CHEMISTRY Routine 05/19/2024 HEMATOLOGY Routine 05/19/2024 BLOOD CULTURE Routine 05/19/2024 CULTURE,BLOOD-2ND SET Routine 05/19/2024 HEMOGLOBIN A1C Routine 10/13/2022 Type 2 diabetes mellitus with diabetic chronic kidney disease (HCC) from Last 3 Months or Most Recently Relevant to Health Maintenance Results * HD KINETICS (08/07/2024) Only the most recent of4 resultswithin the time period is included. % Urea Reduction 74 65 - 80 % [facility] 08/07/2024 08/08/2024 11: 41 AM CDT Narrative Resulting Agency Comment Specimen source: Plasma us Aamir Thakkar MD LAB BLOOD ORDERABLES Final Res ult Performing Organization Address [facility] de Phone Number [facility] [employer] See order comments or contact performing lab Unknown, [place] * POST CHEMISTRY (08/07/2024) Only the most recent of4 resultswithin the time period is included. BUN Post Dialysis 15 6 - 19 mg/dL [facility] 08/07/2024 08/08/2024 11: 41 AM CDT Narrative [facility] - 08/08/2024 Unless otherwise specified, test(s) performed at: [facility], [address] [place], [place] [id number] DIRECTOR [place]: Regino Arevalo M.D. For any questions, please call customer service at FREQUENCY:MONTHLY Resulting Agency Comment Specimen source: Plasma us Aamir Thakkar MD LAB BLOOD ORDERABLES Final Res ult Performing Organization Address [facility] de Phone Number [facility] [employer] See order comments or contact performing lab Unknown, [place] * TRACE ELEMENTS (08/07/2024) Aluminum 5 0 - 10 mcg/L [employer] Comment: This test was developed and its performance characteristics determined by [facility]. It has not been cleared or approved by the FDA. The laboratory is regulated under CLIA as qualified to perform high complexity testing. This test is used for clinical purposes. It should not be regarded as investigational or for research. 08/07/2024 08/08/2024 9:2 2 AM CDT Narrative [facility] - 08/08/2024 Unless otherwise specified, test(s) performed at: [facility], [address] [place] [id number] DIRECTOR [place]: Regino Arevalo M.D. For any questions, please call customer service at FREQUENCY:MONTHLY Resulting Agency Comment Specimen source: Serum Aamir Thakkar MD LAB BLOOD ORDERABLES Final Res ult [facility] See order comments or contact performing lab Unknown, [place] * (ABNORMAL) HEMATOLOGY (08/07/2024) Only the most recent of14 resultswithin the time period is included. Neutrophils 87.3(H) 40.0 - 75.0 % [facility] Lymphocytes Relative 5.7(L) 19.0 - 48.0 % [facility] Monocytes 4.1 3.0 - 10.0 % [facility] Eosinophils Relative 0.9 0.0 - 7.0 % [facility] Basophils Relative 0.6 0.0 - 1.5 % [facility] BALWINDER 1.3 0.0 - 4.0 % [facility] WBC 8.88 4.80 - 10.80 1000/mcL [facility] RBC 3.69(L) 4.70 - 6.10 mill/mcL [facility] Hematocrit 34.1(L) 42.0 - 52.0 % [facility] MCV 93 80 - 100 fl [facility] MCH 30.7 27.0 - 31.0 pg [facility] MCHC 33.2 30.0 - 36.0 g/dL [facility] RDW 13.9 11.5 - 14.5 % [facility] Hemoglobin 11.3(L) 14.0 - 18.0 g/dL [facility] Hemoglobin x 3 33.9(L) 42.0 - 54.0 % [facility] Platelets 136 130 - 400 1000/mcL [facility] Retic Ct Pct 2.99(H) 0.80 - 2.10 % [facility] 08/07/2024 08/08/2024 9:5 9 AM CDT Narrative [facility] - 08/08/2024 Unless otherwise specified, test(s) performed at: [facility], [address] [place] [id number] DIRECTOR [place]: Regino Arevalo M.D. For any questions, please call customer service at FREQUENCY:MONTHLY Resulting Agency Comment Specimen source: Blood Aamir Thakkar MD LAB BLOOD ORDERABLES Final Res ult [facility] See order comments or contact performing lab Unknown, [place] * (ABNORMAL) [facility] (08/07/2024) Only the most recent of7 resultswithin the time period is included. PTH 190(H) 16 - 80 pg/mL [facility] 08/07/2024 08/08/2024 10: 14 AM CDT Narrative [facility] - 08/08/2024 Unless otherwise specified, test(s) performed at: [facility], [address] [place] [address] DIRECTOR [place]: Regino Arevalo M.D. For any questions, please call customer service at FREQUENCY:MONTHLY Resulting Agency Comment Specimen source: Plasma Aamir Thakkar MD LAB BLOOD ORDERABLES Final Res ult Performing Organization Address [facility] Co de Phone Number [facility] See order comments or contact performing lab Unknown, [place] * SPECIAL CHEMISTRY (06/05/2024) Vitamin D, 25-OH, Total 35.4 30.0 - 100.0 ng/mL [facility] Comment: Please Note: Effective January 24, 2023, the methodology for this test has changed to the [facility]. 06/05/2024 06/06/2024 10: 08 AM CDT Narrative Resulting Agency Comment Specimen source: Serum Aamir Thakkar MD LAB BLOOD BANK TEST ORDERABLES Final Result [facility] See order comments or contact performing lab Unknown, [place] * Blood culture (05/19/2024) Culture Result See below [facility] Comment: No Aerobic or Anaerobic Growth after 5 Days of Incubation. 05/19/2024 05/22/2024 10: 31 AM DERRICK OPERATOR Narrative [facility] - 05/27/2024 Unless otherwise specified, test(s) performed at: [facility], [address] [place] [id number] DIRECTOR [place]: Regino Arevalo M.D. For any questions, please call customer service at FREQUENCY:OTHER Resulting Agency Comment Specimen source: Blood/Dialysis Bloodline Aamir Thakkar MD LAB MICROBIOLOGY - GENERAL ORD ERABLES Final Result Performing Organization Address [facility] Co de Phone Number [facility] See order comments or contact performing lab Unknown, [place] * Blood culture (05/19/2024) Culture, Blood See below [facility] Comment: No Aerobic or Anaerobic Growth after 5 Days of Incubation. 05/19/2024 05/22/2024 10: 31 AM [facility] Narrative [facility] - 05/27/2024 Unless otherwise specified, test(s) performed at: [facility], [address] [place] [id number] DIRECTOR [place]: Regino Arevalo M.D. For any questions, please call customer service at FREQUENCY:OTHER Resulting Agency Comment Specimen source: Blood/Dialysis Bloodline Aamir Thakkar MD LAB MICROBIOLOGY - GENERAL ORD ERABLES Final Result Performing Organization Address [facility] Co de Phone Number [facility] See order comments or contact performing lab Unknown, [place] * Hemoglobin A1c (10/13/2022) Hemoglobin A1C 5.2 PRINT /EXTERNAL (NON-INTERFACE D LABS) Blood (Blood, Venous) 10/13/2022 us Aamir Thakkar MD LAB BLOOD ORDERABLES Final Res ult Performing Organization Address [facility]/ZIP Co de Phone Number PRINT/EXTERNAL (NON-INTERFACED LABS) from Last 3 Months or Most Recently Relevant to Health Maintenance Insurance Medicare Care Teams Director Building Relationship Specialty Start Date End Date Morgan Mercado MD [address] [facility] [place] [address] PCP - General Family Medicine 05/31/22
--- OUTSIDE RECORDS SUMMARY | 2024-08-13 10:21 | XMS_ITS | Encounter Summary ---
Author Organization [facility] Medical [facility] Address [address] [place] [address] Care Team Providers Care Container Coordinator Name Role Phone Morgan Mercado MD Primary Care Provider + [phone] Morgan Mercado MD Primary Care Provider + [phone] Brisa Lowe MD Unavailable [phone] Aamir Thakkar MD Unavailable [phone] Rodolfo Berman MD Unavailable [phone] Encounter Details Date Type Department Care Team (Late st Contact Info) Description 05/06/2016 Orders Only [facility] ProviderValeri MD [facility] [place] [address] Social History Tobacco Use Types Packs/Day Years Used Date Smoking Tobacco: Light Smoker Comments:Smoking History Pac ks/day: 0.25 Packs Alcohol Use Standard Drinks/Week Comments No 0 (1 standard drink = 0.6 oz pur e alcohol) Sex and Gender Information Value Date Recorded Sex Assigned at Not on file Legal Sex Male 10:59 AM RESPIRATORY THERAPY INSTRUCTOR Gender Identity Not on file Sexual Orientation [...] Diagnoses Not on filedocumented in this encounter Additional Health Concerns Infection Onset Date Last Indicated Resolved Time COVID: Suspected 05/03/2024 05/03/2024 05/03/2024 5:42 PM RESPIRATORY THERAPY INSTRUCTOR COVID19 Comment:S&S onset date 05/01/2024. Pt is not immunosuppressed. Patient is first eligible for COVID: Recovered evaluation on 05/11/2024. Please reach out to Infection Prevention at that time to change isolation status if the provider feels criteria is met. Ronit Garcia N.Niyah 05/03/2024 05/03/2024 05/16/2024 3:[address] COVID: Recovered Comment:Added based on recent COVID infection. 05/16/2024 05/19/2024 COVID: Suspected 05/19/2024 05/19/2024 05/19/2024 4:14 PM RESPIRATORY THERAPY INSTRUCTOR COVID19 Comment:S&S onset date 05/01/2024. Pt is not immunosuppressed. Patient is first eligible for COVID: Recovered evaluation on 05/11/2024. Please reach out to Infection Prevention at that time to change isolation status if the provider feels criteria is met. Ronit Garcia N.Patrick. Patient Covid Recovered on 05/16/2024. Patient had Covid-19 infection 05/03/2024. 05/19/2024 05/26/2024 05/28/2024 6:45 AM RESPIRATORY THERAPY INSTRUCTOR COVID: Suspected 05/26/2024 05/26/2024 05/26/2024 7:46 PM RESPIRATORY THERAPY INSTRUCTOR Influenza, adult 05/26/2024 05/26/2024 06/02/2024 3:05 AM RESPIRATORY THERAPY INSTRUCTOR documented as of this encounter Care Teams Container Coordinator Relationship Specialty Start Date End Date Morgan Mercado MD PCP - General 06/25/16 Morgan Mercado MD PCP - General 01/26/11 06/24/16 Brisa Lowe MD Consulting Physician Cardiology 08/26/21 Aamir Thakkar MD [address] [place] [id number] Consulting Physician Nephrology 05/15/22 Rodolfo Berman MD [address] [facility] [address] [place] [address] Surgeon Surgery 09/02/22 documented as of this encounter
--- OUTSIDE RECORDS SUMMARY | 2024-08-13 10:21 | XMS_ITS | Encounter Summary ---
Author Organization [facility] Medical [facility] Address [address] [place] [address] Care Team Providers Care Pharmacy Assistant Name Role Phone Morgan Mercado MD Primary Care Provider + [phone] Morgan Mercado MD Primary Care Provider + [phone] Brisa Lowe MD Unavailable [phone] Aamir Thakkar MD Unavailable [phone] Rodolfo Berman MD Unavailable [phone] Encounter Details Date Type Department Care Team (Late st Contact Info) Description 05/04/2016 Orders Only [facility] ProviderValeri MD [facility] [place] [address] Social History Tobacco Use Types Packs/Day Years Used Date Smoking Tobacco: Light Smoker Comments:Smoking History Pac ks/day: 0.25 Packs Alcohol Use Standard Drinks/Week Comments No 0 (1 standard drink = 0.6 oz pur e alcohol) Sex and Gender Information Value Date Recorded Sex Assigned at Not on file Legal Sex Male 10:59 AM HOME CARE ASSOCIATE Gender Identity Not on file Sexual Orientation [...] COVID: Suspected 05/03/2024 05/03/2024 05/03/2024 5:42 PM HOME CARE ASSOCIATE COVID19 Comment:S&S onset date 05/01/2024. Pt is [...] COVID: Suspected 05/19/2024 05/19/2024 05/19/2024 4:14 PM HOME CARE ASSOCIATE COVID19 Comment:S&S onset date 05/01/2024. Pt is not immunosuppressed. Patient is first eligible for COVID: Recovered evaluation on 05/11/2024. Please reach out to Infection Prevention at that time to change isolation status if the provider feels criteria is met. Ronit Garcia N.Patrick. Patient Covid Recovered on 05/16/2024. Patient had Covid-19 infection 05/03/2024. 05/19/2024 05/26/2024 05/28/2024 6:45 AM HOME CARE ASSOCIATE COVID: Suspected 05/26/2024 05/26/2024 05/26/2024 7:46 PM HOME CARE ASSOCIATE Influenza, adult 05/26/2024 05/26/2024 06/02/2024 3:05 AM HOME CARE ASSOCIATE documented as of this encounter Care Teams Pharmacy Assistant Relationship Specialty Start Date End Date Morgan Mercado MD PCP - General 06/25/16 Morgan Mercado MD PCP - General 01/26/11 06/24/16 Brisa Lowe MD Consulting Physician Cardiology 08/26/21 Aamir Thakkar MD [address] [facility] [address] [place] [id number] Consulting Physician Nephrology 05/15/22 Rodolfo Berman MD [address] [facility] [address] [address] [facility] [address] [place] [address] Surgeon Surgery 09/02/22 documented as of this encounter
--- OUTSIDE RECORDS SUMMARY | 2024-08-13 10:21 | XMS_ITS | Encounter Summary ---
Author Organization [facility] Medical Group Address [address] [place] [address] Care Team Providers Care Battery Charger Name Role Phone Morgan Mercado MD Primary Care Provider + [phone] Brisa Lowe MD Unavailable [phone] Aamir Thakkar MD Unavailable [phone] Rodolfo Berman MD Unavailable [phone] Encounter Details Date Type Department Care Team (Late st Contact Info) Description 08/03/2016 Orders Only [facility] Provider, MD [address] [place] [address] Social History Tobacco Use Types Packs/Day Years Used Date Smoking Tobacco: Light Smoker Comments:Smoking History Pac ks/day: 0.25 Packs Alcohol Use Standard Drinks/Week Comments No 0 (1 standard drink = 0.6 oz pur e alcohol) Sex and Gender Information Value Date Recorded Sex Assigned at Not on file Legal Sex Male 10:59 AM MASTER AUTOMOTIVE TECHNICIAN Gender Identity Not on file Sexual Orientation [...] COVID: Suspected 05/03/2024 05/03/2024 05/03/2024 5:42 PM MASTER AUTOMOTIVE TECHNICIAN COVID19 Comment:S&S onset date 05/01/2024. Pt is not immunosuppressed. Patient is first eligible for COVID: Recovered evaluation on 05/11/2024. Please reach out to Infection Prevention at that time to change isolation status if the provider feels criteria is met. Ronit Garcia NCj 05/03/2024 05/03/2024 05/16/2024 3:[address] COVID: Recovered Comment:Added based on recent COVID infection. 05/16/2024 05/19/2024 COVID: Suspected 05/19/2024 05/19/2024 05/19/2024 4:14 PM MASTER AUTOMOTIVE TECHNICIAN COVID19 Comment:S&S onset date 05/01/2024. Pt is not immunosuppressed. Patient is first eligible for COVID: Recovered evaluation on 05/11/2024. Please reach out to Infection Prevention at that time to change isolation status if the provider feels criteria is met. Ronit Vivas Patient Covid Recovered on 05/16/2024. Patient had Covid-19 infection 05/03/2024. 05/19/2024 05/26/2024 05/28/2024 6:45 AM MASTER AUTOMOTIVE TECHNICIAN COVID: Suspected 05/26/2024 05/26/2024 05/26/2024 7:46 PM MASTER AUTOMOTIVE TECHNICIAN Influenza, adult 05/26/2024 05/26/2024 06/02/2024 3:05 AM MASTER AUTOMOTIVE TECHNICIAN documented as of this encounter Care Teams Battery Charger Relationship Specialty Start Date End Date Morgan Mercado MD PCP - General 06/25/16 Brisa Lowe MD Consulting Physician Cardiology 08/26/21 Aamir Thakkar MD [address] [facility] [address] [facility] [address] [place] [address] Consulting Physician Nephrology 05/15/22 Rodolfo Berman MD [address] [facility] [address] [facility] [address] [facility] [address] [place] [address] Surgeon Surgery 09/02/22 documented as of this encounter
--- OUTSIDE RECORDS SUMMARY | 2024-08-13 10:22 | XMS_ITS | Encounter Summary ---
Author Organization [employer] Address 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CMS/[facility]); End Stage Renal Disease (CMS/[facility]); Urinary Tract Infection, Site not Specified; DM w/o Complication Type II (CMS/[facility]); Unspecified Anemia Social History Tobacco Use Types Packs/Day Years Used Date Smoking Tobacco: Never Assessed Sex and Gender Information Value Date Recorded Sex Assigned at Not on file Legal Sex Male 4:23 AM MARKET RESEARCH INTERVIEWER Gender Identity Not on file Sexual Orientation Not on file documented as of this encounter Plan of Treatment Not on file documented as of this encounter Procedures Procedure Name Priority Date/Time Associated Diagnosis Comments POC GLUCOSE Routine 03/04/2006 4:47 PM MARKET RESEARCH INTERVIEWER POC GLUCOSE Routine 03/04/2006 12:07 PM MARKET RESEARCH INTERVIEWER POC GLUCOSE Routine 03/04/2006 7:48 AM MARKET RESEARCH INTERVIEWER POC GLUCOSE Routine 03/03/2006 5:15 PM MARKET RESEARCH INTERVIEWER POC GLUCOSE Routine 03/03/2006 6:26 AM MARKET RESEARCH INTERVIEWER PTT Routine 03/03/2006 6:00 AM MARKET RESEARCH INTERVIEWER CBC WITH DIFFERENTIAL Routine 03/03/2006 5:00 AM MARKET RESEARCH INTERVIEWER CBC WITH DIFFERENTIAL Routine 03/03/2006 5:00 AM MARKET RESEARCH INTERVIEWER PHOSPHORUS Routine 03/03/2006 5:00 AM MARKET RESEARCH INTERVIEWER MAGNESIUM LEVEL Routine 03/03/2006 5:00 AM MARKET RESEARCH INTERVIEWER BASIC METABOLIC PANEL Routine 03/03/2006 5:00 AM MARKET RESEARCH INTERVIEWER CKMB W/REFLEX CK Routine 03/02/2006 10:0 0 PM MARKET RESEARCH INTERVIEWER TROPONIN (W/REFLEX CKMB/CK) Routine 03/02/2006 10:00 PM MARKET RESEARCH INTERVIEWER CBC WITH DIFFERENTIAL Routine 03/02/2006 10:00 PM MARKET RESEARCH INTERVIEWER CBC WITH DIFFERENTIAL Routine 03/02/2006 10:00 PM MARKET RESEARCH INTERVIEWER PTT Routine 03/02/2006 10:00 PM MARKET RESEARCH INTERVIEWER POC GLUCOSE Routine 03/02/2006 9:14 PM MARKET RESEARCH INTERVIEWER POC GLUCOSE Routine 03/02/2006 5:08 PM MARKET RESEARCH INTERVIEWER POC GLUCOSE Routine 03/02/2006 11:39 AM MARKET RESEARCH INTERVIEWER PTT Routine 03/02/2006 11:17 AM MARKET RESEARCH INTERVIEWER POC GLUCOSE Routine 03/02/2006 5:59 AM MARKET RESEARCH INTERVIEWER CKMB W/REFLEX CK Routine 03/02/2006 5:45 AM MARKET RESEARCH INTERVIEWER TROPONIN (W/REFLEX CKMB/CK) Routine 03/02/2006 5:45 AM MARKET RESEARCH INTERVIEWER PT AND APTT Routine 03/02/2006 5:45 AM MARKET RESEARCH INTERVIEWER CBC WITH DIFFERENTIAL Routine 03/02/2006 5:45 AM MARKET RESEARCH INTERVIEWER CBC WITH DIFFERENTIAL Routine 03/02/2006 5:45 AM MARKET RESEARCH INTERVIEWER CBC WITH DIFFERENTIAL Routine 03/02/2006 5:45 AM MARKET RESEARCH INTERVIEWER PHOSPHORUS Routine 03/02/2006 5:45 AM MARKET RESEARCH INTERVIEWER MAGNESIUM LEVEL Routine 03/02/2006 5:45 AM MARKET RESEARCH INTERVIEWER BASIC METABOLIC PANEL Routine 03/02/2006 5:45 AM MARKET RESEARCH INTERVIEWER documented in this encounter Results * (ABNORMAL) POC GLUCOSE (03/04/2006 4:47 PM MARKET RESEARCH INTERVIEWER) GLUCOSE POC 118(H) 65 - 99 mg/dL INTERFACE SYSTEM Comment: 02/10/2006 Change in reference range to correspond to Main Lab reference range. 03/04/2006 4:47 PM MARKET RESEARCH INTERVIEWER us Tim Batres MD POINT OF CARE TESTING Final Res ult Performing Organization Address [facility] de Phone Number INTERFACE SYSTEM Refer to clinic/hospital department * (ABNORMAL) POC GLUCOSE (03/04/2006 12:07 PM MARKET RESEARCH INTERVIEWER) GLUCOSE POC 126(H) 65 - 99 mg/dL INTERFACE SYSTEM Comment: 02/10/2006 Change in reference range to correspond to Main Lab reference range. 03/04/2006 12:0 7 PM MARKET RESEARCH INTERVIEWER us Tim Batres MD POINT OF CARE TESTING Final Res ult Performing Organization Address [facility] de Phone Number INTERFACE SYSTEM Refer to clinic/hospital department * POC GLUCOSE (03/04/2006 7:48 AM MARKET RESEARCH INTERVIEWER) GLUCOSE POC 85 65 - 99 mg/dL INTERFACE SYSTEM Comment: 02/10/2006 Change in reference range to correspond to Main Lab reference range. 03/04/2006 7:48 AM MARKET RESEARCH INTERVIEWER us Tim Batres MD POINT OF CARE TESTING Final Res ult Performing Organization Address [facility] Phone Number INTERFACE SYSTEM Refer to clinic/hospital department * POC GLUCOSE (03/03/2006 5:15 PM MARKET RESEARCH INTERVIEWER) GLUCOSE POC 90 65 - 99 mg/dL INTERFACE SYSTEM Comment: 02/10/2006 Change in reference range to correspond to Main Lab reference range. 03/03/2006 5:15 PM MARKET RESEARCH INTERVIEWER Tim Batres MD POINT OF CARE TESTING Final Res ult Performing Organization Address [facility] Phone Number INTERFACE SYSTEM Refer to clinic/hospital department * POC GLUCOSE (03/03/2006 6:26 AM MARKET RESEARCH INTERVIEWER) GLUCOSE POC 85 65 - 99 mg/dL INTERFACE SYSTEM Comment: 02/10/2006 Change in reference range to correspond to Main Lab reference range. 03/03/2006 6:26 AM MARKET RESEARCH INTERVIEWER Tim Batres MD POINT OF CARE TESTING Final Res ult Performing Organization Address [facility] Phone Number INTERFACE SYSTEM Refer to clinic/hospital department * PTT (03/03/2006 6:00 AM MARKET RESEARCH INTERVIEWER) PTT 31.5 24.4 - 36.4 Seconds INTERFACE SYSTEM Comment: PTT Therapeutic Range: Heparin Level PTT (seconds) <0.10 units/mL <53 0.10 - 0.30 units/mL 53 - 67 0.30 - 0.70 units/mL* 67 - 95* 0.70 - 1.00 units/mL 95 - 116 *corresponds to therapeutic range for unfractionated heparin 03/03/2006 6:00 AM MARKET RESEARCH INTERVIEWER Socorro Santos MD HEMATOLOGY ORDERABLES Final Res ult Performing Organization Address [facility] Phone Number INTERFACE SYSTEM Refer to clinic/hospital department * CBC WITH DIFFERENTIAL (03/03/2006 5:00 AM MARKET RESEARCH INTERVIEWER) NEUTROPHILS 70 45 - 70 % INTERFAC [...] 0.20 K/uL INTERFACE SYSTEM 03/03/2006 5:00 AM MARKET RESEARCH INTERVIEWER Colten Polk MD HEMATOLOGY ORDERABLES Final R esult Performing Organization Address [facility] Co de Phone Number INTERFACE SYSTEM Refer to clinic/hospital department * (ABNORMAL) CBC WITH DIFFERENTIAL (03/03/2006 5:00 AM MARKET RESEARCH INTERVIEWER) WBC 6.0 4.0 - 9.8 K/uL INTERFACE [...] 12.4 fL INTERFACE SYSTEM 03/03/2006 5:00 AM MARKET RESEARCH INTERVIEWER Colten Polk MD HEMATOLOGY ORDERABLES Final R esult Performing Organization Address City/State/[facility] Co de Phone Number INTERFACE SYSTEM Refer to clinic/hospital department * PHOSPHORUS (03/03/2006 5:00 AM MARKET RESEARCH INTERVIEWER) PHOSPHORUS 4.3 2.5 - 4.5 mg/dL INTERFACE SYSTEM 03/03/2006 5:00 AM MARKET RESEARCH INTERVIEWER us Colten Polk MD CHEMISTRY ORDERABLES Final Re sult Performing Organization Address [facility] de Phone Number INTERFACE SYSTEM Refer to clinic/hospital department * MAGNESIUM LEVEL (03/03/2006 5:00 AM MARKET RESEARCH INTERVIEWER) MAGNESIUM 1.7 1.5 - 2.5 mg/dL INTERFACE SYSTEM 03/03/2006 5:00 AM MARKET RESEARCH INTERVIEWER Colten Polk MD CHEMISTRY ORDERABLES Final Re sult Performing Organization Address [facility] Phone Number INTERFACE SYSTEM Refer to clinic/hospital department * (ABNORMAL) BASIC METABOLIC PANEL (03/03/2006 5:00 AM MARKET RESEARCH INTERVIEWER) GLUCOSE 81 65 - 99 mg/dL INTERFACE [...] and non- Americans is available on the [facility] Intranet at: [email or web address] Select: Lab Policies and Procedures Select: Reference Ranges - GFR 03/03/2006 5:00 AM MARKET RESEARCH INTERVIEWER us Colten Polk MD CHEMISTRY ORDERABLES Final Re sult Performing Organization Address [facility] Phone Number INTERFACE SYSTEM Refer to clinic/hospital department * CKMB W/REFLEX CK (03/02/2006 10:00 PM MARKET RESEARCH INTERVIEWER) CKMB 2.9 <=6.7 ng/mL INTERFACE SYSTEM CKMB INTERP Negative INTERFAC E SYSTEM 03/02/2006 10:0 0 PM MARKET RESEARCH INTERVIEWER us Tim Batres MD CHEMISTRY ORDERABLES Final Resu lt Performing Organization Address [facility] Phone Number INTERFACE SYSTEM Refer to clinic/hospital department * (ABNORMAL) TROPONIN (W/REFLEX CKMB/CK) (03/02/2006 10:00 PM MARKET RESEARCH INTERVIEWER) TROPONIN T 0.24(AA) <=0.03 ng/mL INTERFACE SYSTEM Comment:Persistent abnormal result TROPONIN T INTERP See Below INTERFACE SYSTEM Comment:Elevated Troponin-T, Consistent with Myocardial Injury 03/02/2006 10:0 0 PM MARKET RESEARCH INTERVIEWER us Tim Batres MD CHEMISTRY ORDERABLES Final Resu lt Performing Organization Address [facility] Phone Number INTERFACE SYSTEM Refer to clinic/hospital department * CBC WITH DIFFERENTIAL (03/02/2006 10:00 PM MARKET RESEARCH INTERVIEWER) Pathologist [facility] NEUTROPHILS 64 45 - 70 % INTERFAC [...] K/uL INTERFACE SYSTEM 03/02/2006 10:0 0 PM MARKET RESEARCH INTERVIEWER us Tim Batres MD HEMATOLOGY ORDERABLES Final Res ult Performing Organization Address [facility] Phone Number INTERFACE SYSTEM Refer to clinic/hospital department * (ABNORMAL) CBC WITH DIFFERENTIAL (03/02/2006 10:00 PM MARKET RESEARCH INTERVIEWER) WBC 7.2 4.0 - 9.8 K/uL INTERFACE [...] fL INTERFACE SYSTEM 03/02/2006 10:0 0 PM MARKET RESEARCH INTERVIEWER us Tim Batres MD HEMATOLOGY ORDERABLES Final Res ult Performing Organization Address [facility] de Phone Number INTERFACE SYSTEM Refer to clinic/hospital department * (ABNORMAL) PTT (03/02/2006 10:00 PM MARKET RESEARCH INTERVIEWER) PTT >150.0(AA ) 24.4 - 36.4 Seconds INTERFACE SYSTEM Comment: PTT Therapeutic Range: Heparin Level PTT (seconds) <0.10 units/mL <53 0.10 - 0.30 units/mL 53 - 67 0.30 - 0.70 units/mL* 67 - 95* 0.70 - 1.00 units/mL 95 - 116 *corresponds to therapeutic range for unfractionated heparin Results called to srinath at 03/02/2006 11:48 PM and read back verified. 03/02/2006 10:0 0 PM MARKET RESEARCH INTERVIEWER us Tim Batres MD HEMATOLOGY ORDERABLES Final Res ult Performing Organization Address [facility] Co de Phone Number INTERFACE SYSTEM Refer to clinic/hospital department * (ABNORMAL) POC GLUCOSE (03/02/2006 9:14 PM MARKET RESEARCH INTERVIEWER) GLUCOSE POC 130(H) 65 - 99 mg/dL INTERFACE SYSTEM Comment: 02/10/2006 Change in reference range to correspond to Main Lab reference range. 03/02/2006 9:14 PM MARKET RESEARCH INTERVIEWER us Tim Batres MD POINT OF CARE TESTING Final Res ult Performing Organization Address [facility] Phone Number INTERFACE SYSTEM Refer to clinic/hospital department * (ABNORMAL) POC GLUCOSE (03/02/2006 5:08 PM MARKET RESEARCH INTERVIEWER) GLUCOSE POC 114(H) 65 - 99 mg/dL INTERFACE SYSTEM Comment: 02/10/2006 Change in reference range to correspond to Main Lab reference range. 03/02/2006 5:08 PM MARKET RESEARCH INTERVIEWER us Tim Batres MD POINT OF CARE TESTING Final Res ult Performing Organization Address [facility] Phone Number INTERFACE SYSTEM Refer to clinic/hospital department * (ABNORMAL) POC GLUCOSE (03/02/2006 11:39 AM MARKET RESEARCH INTERVIEWER) GLUCOSE POC 106(H) 65 - 99 mg/dL INTERFACE SYSTEM Comment: 02/10/2006 Change in reference range to correspond to Main Lab reference range. 03/02/2006 11:3 9 AM MARKET RESEARCH INTERVIEWER us Tim Batres MD POINT OF CARE TESTING Final Res ult Performing Organization Address [facility] Phone Number INTERFACE SYSTEM Refer to clinic/hospital department * PTT (03/02/2006 11:17 AM MARKET RESEARCH INTERVIEWER) PTT 35.1 24.4 - 36.4 Seconds INTERFACE SYSTEM Comment: PTT Therapeutic Range: Heparin Level PTT (seconds) <0.10 units/mL <53 0.10 - 0.30 units/mL 53 - 67 0.30 - 0.70 units/mL* 67 - 95* 0.70 - 1.00 units/mL 95 - 116 *corresponds to therapeutic range for unfractionated heparin 03/02/2006 11:1 7 AM MARKET RESEARCH INTERVIEWER us Guru Polk MD HEMATOLOGY ORDERABLES Final Resu lt INTERFACE SYSTEM Refer to clinic/hospital department * POC GLUCOSE (03/02/2006 5:59 AM MARKET RESEARCH INTERVIEWER) GLUCOSE POC 94 65 - 99 mg/dL INTERFACE SYSTEM Comment: 02/10/2006 Change in reference range to correspond to Main Lab reference range. 03/02/2006 5:59 AM MARKET RESEARCH INTERVIEWER us Tim Batres MD POINT OF CARE TESTING Final Res ult Performing Organization Address City/[facility]/ZIP Co de Phone Number INTERFACE SYSTEM Refer to clinic/hospital department * PT AND APTT (03/02/2006 5:45 AM MARKET RESEARCH INTERVIEWER) PROTIME 14.8 12.7 - 15.1 Seconds INTERFACE SYSTEM INR 1.1 0.9 - 1.1 INTERFACE SYSTEM Comment: INR Therapeutic Range: Adult: 2.0 - 3.0 for pulmonary embolism or prophylaxis against venous thrombosis or systemic embolization. 2.0 - 3.0 for patients with tissue heart valves. 2.5 - 3.5 for patients with mechanical heart valves or post AL. Pediatric (12 years and under): 1.5 - 3.0 Although [...] SYSTEM Comment: PTT Therapeutic Range: Heparin Level PTT (seconds) <0.10 units/mL <53 0.10 - 0.30 units/mL 53 - 67 0.30 - 0.70 units/mL* 67 - 95* 0.70 - 1.00 units/mL 95 - 116 *corresponds to therapeutic range for unfractionated heparin 03/02/2006 5:45 AM MARKET RESEARCH INTERVIEWER us Tim Batres MD HEMATOLOGY ORDERABLES Final Res ult Performing Organization Address [facility] Phone Number INTERFACE SYSTEM Refer to clinic/hospital department * CBC WITH DIFFERENTIAL (03/02/2006 5:45 AM MARKET RESEARCH INTERVIEWER) ANISOCYTOSIS Slight INTERFA CE SYSTEM POIKILOCYTES Slight INTERFA CE SYSTEM ACANTHOCYTES Slight INTERFA CE SYSTEM 03/02/2006 5:45 AM MARKET RESEARCH INTERVIEWER Evelyn Garcia DO HEMATOLOGY ORDERABLES Fi nal Result Performing Organization Address [facility] Phone Number INTERFACE SYSTEM Refer to clinic/hospital department * CBC WITH DIFFERENTIAL (03/02/2006 5:45 AM MARKET RESEARCH INTERVIEWER) NEUTROPHILS 70 45 - 70 % INTERFAC [...] 0.20 K/uL INTERFACE SYSTEM 03/02/2006 5:45 AM MARKET RESEARCH INTERVIEWER Evelyn Garcia DO HEMATOLOGY ORDERABLES Fi nal Result Performing Organization Address [facility] Phone Number INTERFACE SYSTEM Refer to clinic/hospital department * (ABNORMAL) CBC WITH DIFFERENTIAL (03/02/2006 5:45 AM MARKET RESEARCH INTERVIEWER) WBC 5.4 4.0 - 9.8 K/uL INTERFACE [...] 140 - 350 K/uL INTERFACE SYSTEM MPV [id number]|2024-08-13 10:22:00|2024-08-13 05:21:00|XMS_ITS|BKG DAEMON|External Medical Summaries|[id number]|" [place] NQHP OL DIG ASSMT&MGMT 5-10 [facility] Encounter Summary Created on: August 13, 2024 YOU MCLEAN : 1950 Sex: Male Author Name [facility] [place] [facility] [place] [facility] [place] [facility] [place] Address [address] [place] [id number] Care Team Providers Care Clerk Rating Name Role Phone JOSE TORO Primary Care [...] AID (WNR) Mar 28, 2013 MEDICAI D [id number] YOU MCLEAN PATIENT MEDICARE (WNR) MEDICARE (M) PART A Jan 27, 2016 PART A [id number] YOU MCLEAN PATIENT MEDICARE (WNR) MEDICARE (M) PART B Jan 27, 2016 PART B [id number] YOU MCLEAN PATIENT MEDICARE (WNR) MEDICARE (M) PART B Jan 27, 2016 PART B [id number] YOU MCLEAN PATIENT MEDICARE (WNR) MEDICARE (M) PART A Jan 27, 2016 PART A [id number] YOU MCLEAN PATIENT Selected Encounter This section includes the information on record at [place] for the Encounter. Date/Time Encounter Type Encounter Description Reason Provider Source May 30, 2024 02:46 PM HP OL DIG ASSMT&MGMT 5-10 CLINICAL PHARMACY ICD-10-CM E11.9 Type 2 diabetes mellitus without complications DIANA TOBAR [facility] Encounter Template Text not used by [place] Assessments - Encounter Diagnoses This section includes the primary and secondary diagnoses documented for the Encounter. Date/Time Primary/Secondary Diagnosis Diagnosis Name Provider Source May 30, 2024 02:55 PM PRIMARY Type 2 diabetes mellitus without complications DIANA TOBAR [facility] Plan of Treatment: Future Appointments (+ 6 months) and Future Tests (+/- 45 days) The Plan of Treatment section includes future care activities for the patient from all [place] treatmentfacilities. This section includes future appointments and future orders which are active, pending or scheduled. Future Appointments This section includes appointments that were scheduled to occur 6 months from the date of the Encounter, up to a maximum of 20 appointments. The data comes from all [place] treatment facilities. Appointment Date/Time Appointment Type Appointme nt Facility Name Jul 04, 2024 08:30 AM AMBULATORY - SURGERY [facility] Sep 12, 2024 11:00 AM AMBULATORY - SURGERY [facility] Social History: Smoking Status (Most current) and Tobacco Use (All prior to encounter date) This section includes the most current, and the historical, smoking and tobacco- related health factors from the [facility] facility where the Encounter took place. Current Smoking Status This section includes the most current smoking, or tobacco-related health factor, from the [place] facility where the Encounter took place. Date/Time Current Smoking Status Comment [facility] Dec 29, 2021 01:00 PM VA-TOBACCO USER SOME DAYS [facility] Tobacco Use History This section includes a history of the smoking, or tobacco-related health factors, that were collected on or before the date of the Encounter. The data comes from the [place] facility where the Encounter took place. Date/Time Smoking Status/Tobacco Use Comment F acility Dec 29, 2021 01:00 PM VA-TOBACCO USE 30 YEARS OR MORE [facility] Dec 29, 2021 01:00 PM VA-TOBACCO USE ADVICE [facility] Dec 29, 2021 01:00 PM VA-TOBACCO USE AUDIOLOGY DIRECTOR NO [facility] Dec 29, 2021 01:00 PM VA-TOBACCO USE MED NO [facility] Dec 29, 2021 01:00 PM VA-TOBACCO USER SOME DAYS [facility] Dec 10, 2020 10:30 AM VA-TOBACCO USE > 1 5 LESS THAN 30 YEARS [facility] Dec 10, 2020 10:30 AM VA-TOBACCO USE ADVICE [facility] Dec 10, 2020 10:30 AM VA-TOBACCO USE AUDIOLOGY DIRECTOR NO [facility] Dec 10, 2020 10:30 AM VA-TOBACCO USE MED NO [facility] Dec 10, 2020 10:30 AM VA-TOBACCO USE WI 30 MIN OF WAKEUP [facility] Dec 10, 2020 10:30 AM VA-TOBACCO USER EVERY DAY [facility] August 22, 2018 01:17 PM VA-TOBACCO USE 30 YEARS OR MORE [facility] August 22, 2018 01:17 PM VA-TOBACCO USE ADVICE [facility] August 22, 2018 01:17 PM VA-TOBACCO USE AUDIOLOGY DIRECTOR NO [facility] August 22, 2018 01:17 PM VA-TOBACCO USE MED NO [facility] August 22, 2018 01:17 PM VA-TOBACCO USE WI 30 MIN OF WAKEUP [facility] August 22, 2018 01:17 PM VA-TOBACCO USER EVERY DAY [facility] Aug 31, 2016 09:57 AM CURRENT TOBACCO USER [facility] Aug 31, 2016 09:57 AM TOBACCO MEDS OFFER ED BUT DECLINED [facility] August 13, 2015 10:09 AM CURRENT TOBACCO USER [facility] August 13, 2015 10:09 AM TOBACCO MEDS OFFER ED BUT DECLINED [facility] July 30, 2008 07:34 AM CURRENT TOBACCO USER [facility] July 30, 2008 07:34 AM TOBACCO OFFERRED P T MEDS (PROVIDER) [facility] May 28, 2008 10:38 AM CURRENT TOBACCO USER [facility] July 27, 2007 09:18 AM CURRENT TOBACCO USER [facility] July 27, 2007 09:18 AM TOB INFO ON NON-VA STOP SMOKING CLINIC [facility] July 27, 2007 09:[address] OP SMOKING CLINIC [facility] Sep 19, 2006 08:38 AM CURRENT TOBACCO USER [facility] Sep 19, 2006 08:38 AM TOB-DECLINES SMOKI NG CESSATION REFERRAL [facility] Sep 19, 2006 08:38 AM TOBACCO MEDS OFFER ED BUT DECLINED [facility] Advance Directives: All historical and current Section Date Range: From patient's date of to the date document was created. This section includes ALL of a patient's completed or amended [place] Advance and Rescinded Directives. The entries below indicate that a directive exists for the patient, but an actual copy is not included with this document. The data comes from all [place] facilities. Date Advance Directives Provider Source August 05, 1995 ADVANCE DIRECTIVE [facility] Encounter Notes: All associated encounter notes This section contains the clinical notes associated to the Encounter. Date/Time Encounter Note(s) Provider Source May 30, 2024 02:46 PM INTERNAL MEDICINE CLINICAL PHARMACIST MEDICATION MGT NOTE: LOCAL TITLE: CLINICAL PHARMACIST NOTE STL STANDARD TITLE: INTERNAL MEDICINE CLINICAL PHARMACIST MEDICATION DATE OF NOTE: MAY 30, 2024@14:46 ENTRY DATE: MAY 30, 2024@14:46:25 AUTHOR: DIANA TOBAR COSIGNER: URGENCY: STATUS: COMPLETED CLINICAL PHARMACIST NOTE STL Has ADDENDA CLINICAL PHARMACY NOTE - chart review Subjective: YOU MCLEAN is a 74 MALE ; chart reviewed for DM recommendations. --- purpose of note is for chart review only --- PMH: 1) Peptic Ulcer 2) Arthritis, Gouty 3) Positive ETT, normal heart cath 4) Chronic low back pain (SNOMED CT 724771418) 5) Personal History of Alcoholism (ICD-9-CM V11.3) 6) Scarring (ICD-9-CM 709.2) 7) Santos 8) Chronic kidney disease (SNOMED CT 663796498) 9) Renal mass (SNOMED CT 618523175) 10) abnormal ct scan of abdomen 11) Clear cell carcinoma of kidney 12) History of partial nephrectomy 13) Renal cell carcinoma 14) Liver mass 15) Hyperparathyroidism due to renal insufficiency 16) Diabetes Mellitus Type 2 (SCT 13051585) 17) HTN - Hypertension (SCT 50818889) 18) Hyperlipidemia (SCT 95488116) 19) Low Back Pain (SCT 164193519) 20) Malignant Melanoma of Skin (SCT 00484483) 21) Lesion of liver 22) Renal Cancer (SCT 187338700) 23) Cardiomyopathy (SCT 23265498) 24) AF- Atrial Fibrillation (SCT 47693788) 25) Anxiety (SCT 62390730) 26) Depression ([facility] 15363222) 27) COPD - Chronic Obstructive Pulmonary Disease (SCT 13182490) 28) Posttraumatic stress disorder 29) End-stage renal disease 30) Dependence on renal dialysis Objective: Allergies: CODEINE Medications: Active and Recently Outpatient Medications (excluding Supplies): Active Outpatient Medications Status 1) NICOTINE 14MG/24HR PATCH APPLY 1 PATCH TO SKIN SITE EVERY ACTIVE MORNING REMOVE OLD PATCH BEFORE APPLYING NEW ONE. ROTATE SITES. DO NOT SMOKE WHILE WEARING PATCH. Indication: FOR TOBACCO CESSATION 2) NICOTINE POLACRILEX 2MG MINI LOZENGE DISSOLVE 1 LOZENGE BY ACTIVE MOUTH EVERY 4 HOURS NEEDED DO NOT SMOKE WHILE USING THIS MEDICATION Indication: FOR TOBACCO CESSATION Active Non-VA Medications Status 1) Non-VA ALPRAZOLAM 1MG TAB 1MG BY MOUTH TWICE A DAY ACTIVE Indication: FOR ANXIETY 2) Non-VA CARISOPRODOL 350MG TAB 350MG BY MOUTH THREE TIMES A ACTIVE DAY 3) Non-VA DOXAZOSIN MESYLATE 8MG TAB 4MG BY MOUTH AT BEDTIME ACTIVE 4) Non-VA GLIMEPIRIDE 4MG TAB 4MG BY MOUTH ONCE A DAY ACTIVE 5) Non-VA LISINOPRIL 40MG TAB 20MG BY MOUTH ONCE A DAY ACTIVE 6) Non-VA METOPROLOL SUCCINATE 200MG SA TAB 100MG BY MOUTH ONCE ACTIVE A DAY 7) Non-VA OXYCODONE 5MG/ACETAMINOPHEN 325MG TAB 1 TABLET BY ACTIVE MOUTH EVERY 6 HOURS NEEDED 8) Non-VA SIMVASTATIN 40MG TAB 20MG BY MOUTH EVERY EVENING ACTIVE 9) Non-VA VITAMIN B COMPLEX CAP 1 CAPSULE BY MOUTH ONCE A DAY ACTIVE Labs: CREATININE 4.47 H mg/dL 02/09/2023 11:02 EGFR (CKD-EPI 2020) 13.3 L* 02/09/2023 11:02 MICRAL/CR PROFILE: CREATuF: 77.6 (02/09/23 13:23) BP last visit:165/80 (01/02/2024 09:48) Pulse last visit: 87 (01/02/2024 09:46) nonVA labs per [facility]: a1c 5.9% 05/04/2024 EGFR 23 05/03/2024 BP 123/67 05/24/2024 --> BP at dialysis Assessment/Plan: 1) Diabetes - Goal A1c <8%, FPG 80-160, PPG <210 d/t ESRD per [facility] guidelines NonVA a1c to goal. Per [facility], DM regimen includes Glimepiride however per [facility], vet not taking glimepiride. Based on A1c, no pharmacotherapy likely needed at this time. PCP should consider updating [facility] med list at next appt. + BP - per [facility], last BP to goal + statin (nonVA) + opto - 12/2023 - podiatry - due for PCP foot exam at next f2f appt Time spent on chart review: 9 mins HTN Assess for Elevated BP>=140/90 - N,P,PH: Patient reported blood pressure Systolic BP 123 Diastolic BP 67 Additional comment Comment: per [facility] 05/24/2024 Patient's Hemoglobin A1c from a non-VA lab. Date: May 04, 2024 Result 5.9 /es/ Diana Tobar, JohnnieD, BCACP Clinical [employer] Operator Signed: 05/30/2024 14:56 05/30/2024 ADDENDUM STATUS: COMPLETED Called to discuss nonVA statin use - confirmed full name and . Vet is taking simvastatin 10 mg daily (nonVA). Vet unable to recall other medications at this time for full med rec; encouraged vet to bring ALL medications to next [facility] p[facility] appt. All questions answered. time spent: 4 mins PBM PharmD Pharmacotherapy Rem V12: Medication reconciliation (changes to active VA and non-VA medication lists to reconcile differences) Changes to medication lists made Update dose, frequency, duration and/or dosage form of medication /es/ Diana Tobar, JohnnieD, BCACP Clinical [place] Operator Signed: 05/30/2024 15:03 DIANA TOBAR [facility] "
--- OUTSIDE RECORDS SUMMARY | 2024-08-13 10:22 | XMS_ITS | Encounter Summary ---
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 SYSTEM GLUCOSE POC 132(H) 65 - 99 mg/dL INTERFACE SYSTEM Comment: 02/10/2006 Change in reference range to correspond to Main Lab reference range. 03/11/2006 11:3 8 AM BUTCHER'S ASSISTANT us Warren Renner MD POINT OF CARE TESTING Final Res ult Performing Organization Address [facility] Phone Number INTERFACE SYSTEM Refer to clinic/hospital department * POC GLUCOSE (03/11/2006 5:53 AM BUTCHER'S ASSISTANT) COMMENT, GLU POC Notified RN INTERFACE SYSTEM GLUCOSE POC 92 65 - 99 mg/dL INTERFACE SYSTEM Comment: 02/10/2006 Change in reference range to correspond to Main Lab reference range. 03/11/2006 5:53 AM BUTCHER'S ASSISTANT us Warren Renner MD POINT OF CARE TESTING Final Res ult Performing Organization Address [facility] Phone Number INTERFACE SYSTEM Refer to clinic/hospital department * (ABNORMAL) BASIC METABOLIC PANEL (03/11/2006 4:55 AM BUTCHER'S ASSISTANT) GLUCOSE 83 65 - 99 mg/dL INTERFACE SYSTEM CREATININE 7.88(AA) 0.67 - 1.17 mg/dL INTERFACE SYSTEM Comment: Note: Effective 02/08/2006 New Methodology and Reference Ranges Persistent abnormal result 1 05/12/2005 6:18 AM CALCIUM 8.6 8.4 - [...] and non- Americans is available on the [facility] Intranet at: [email or web address] Select: Lab Policies and Procedures Select: Reference Ranges - GFR 03/11/2006 4:55 AM BUTCHER'S ASSISTANT Abhinav Barton MD CHEMISTRY ORDERABLES Final Result Performing Organization Address [facility] Co de Phone Number INTERFACE SYSTEM Refer to clinic/hospital department * POC GLUCOSE (03/10/2006 9:50 PM BUTCHER'S ASSISTANT) GLUCOSE POC 98 65 - 99 mg/dL INTERFACE SYSTEM Comment: 02/10/2006 Change in reference range to correspond to Main Lab reference range. 03/10/2006 9:50 PM BUTCHER'S ASSISTANT Warren Renner MD POINT OF CARE TESTING Final Res ult Performing Organization Address [facility] Co de Phone Number INTERFACE SYSTEM Refer to clinic/hospital department * POC GLUCOSE (03/10/2006 4:08 PM BUTCHER'S ASSISTANT) COMMENT, GLU POC Notified RN INTERFACE SYSTEM GLUCOSE POC 99 65 - 99 mg/dL INTERFACE SYSTEM Comment: 02/10/2006 Change in reference range to correspond to Main Lab reference range. 03/10/2006 4:08 PM BUTCHER'S ASSISTANT Warren Renner MD POINT OF CARE TESTING Final Res ult Performing Organization Address [facility] Co de Phone Number INTERFACE SYSTEM Refer to clinic/hospital department * (ABNORMAL) POC GLUCOSE (03/10/2006 10:48 AM BUTCHER'S ASSISTANT) COMMENT, GLU POC Notified RN INTERFACE SYSTEM GLUCOSE POC 124(H) 65 - 99 mg/dL INTERFACE SYSTEM Comment: 02/10/2006 Change in reference range to correspond to Main Lab reference range. 03/10/2006 10:4 8 AM BUTCHER'S ASSISTANT Warren Renner MD POINT OF CARE TESTING Final Res ult Performing Organization Address [facility] de Phone Number INTERFACE SYSTEM Refer to clinic/hospital department * (ABNORMAL) CBC WITH DIFFERENTIAL (03/10/2006 7:15 AM BUTCHER'S ASSISTANT) NEUTROPHILS 78(H) 45 - 70 % [...] 0.20 K/uL INTERFACE SYSTEM 03/10/2006 7:15 AM BUTCHER'S ASSISTANT Abhinav Barton MD HEMATOLOGY ORDERABLES Final Result Performing Organization Address [facility] de Phone Number INTERFACE SYSTEM Refer to clinic/hospital department * (ABNORMAL) CBC WITH DIFFERENTIAL (03/10/2006 7:15 AM BUTCHER'S ASSISTANT) WBC 7.9 4.0 - 9.8 K/uL [...] 12.4 fL INTERFACE SYSTEM 03/10/2006 7:15 AM BUTCHER'S ASSISTANT us Abhinav Barton MD HEMATOLOGY ORDERABLES Final Result INTERFACE SYSTEM Refer to clinic/hospital department * (ABNORMAL) BASIC METABOLIC PANEL (03/10/2006 7:15 AM BUTCHER'S ASSISTANT) GLUCOSE 84 65 - 99 mg/dL [...] and non- Americans is available on the [facility] Intranet at: [email or web address] Select: Lab Policies and Procedures Select: Reference Ranges - GFR
--- OUTSIDE RECORDS SUMMARY | 2024-08-13 10:22 | XMS_ITS | Encounter Summary ---
Author Organization [employer] Address [address] [place] [address] Care Team Providers Care Vice President Of Software Development Name Role Phone Morgan Mercado MD Primary Care Provider [phone] Encounter Details Date Type Department Care Team (Latest Contact Info) Description 03/14/2006 Inpatient Historical HIS PATIENT IN A BED Wicho Gomez MD [address] [place] [phone] Scar Condition and Fibrosis of Skin [...] on file Legal Sex Male 4:23 AM CHEMISTRY QUALITY CONTROL TECHNICIAN Gender Identity Not on file Sexual Orientation Not on file documented as of this encounter Plan of Treatment Not on file documented as of this encounter Procedures Procedure Name Priority Date/Time Associated Diagnosis Comments CBC WITH DIFFERENTIAL Routine 03/22/2006 3:20 AM CHEMISTRY QUALITY CONTROL TECHNICIAN CBC WITH DIFFERENTIAL Routine 03/22/2006 3:20 AM CHEMISTRY QUALITY CONTROL TECHNICIAN PHOSPHORUS Routine 03/22/2006 3:20 AM CHEMISTRY QUALITY CONTROL TECHNICIAN MAGNESIUM LEVEL Routine 03/22/2006 3:20 AM CHEMISTRY QUALITY CONTROL TECHNICIAN CALCIUM IONIZED Routine 03/22/2006 3:20 AM CHEMISTRY QUALITY CONTROL TECHNICIAN BASIC METABOLIC PANEL Routine 03/22/2006 3:20 AM CHEMISTRY QUALITY CONTROL TECHNICIAN CBC WITH DIFFERENTIAL Routine 03/20/2006 3:10 AM CHEMISTRY QUALITY CONTROL TECHNICIAN CBC WITH DIFFERENTIAL Routine 03/20/2006 3:10 AM CHEMISTRY QUALITY CONTROL TECHNICIAN PHOSPHORUS Routine 03/20/2006 3:10 AM CHEMISTRY QUALITY CONTROL TECHNICIAN MAGNESIUM LEVEL Routine 03/20/2006 3:10 AM CHEMISTRY QUALITY CONTROL TECHNICIAN CALCIUM IONIZED Routine 03/20/2006 3:10 AM CHEMISTRY QUALITY CONTROL TECHNICIAN BASIC METABOLIC PANEL Routine 03/20/2006 3:10 AM CHEMISTRY QUALITY CONTROL TECHNICIAN POC GLUCOSE Routine 03/18/2006 11:16 AM CHEMISTRY QUALITY CONTROL TECHNICIAN POC GLUCOSE Routine 03/18/2006 5:02 AM CHEMISTRY QUALITY CONTROL TECHNICIAN CBC WITH DIFFERENTIAL Routine 03/18/2006 3:35 AM CHEMISTRY QUALITY CONTROL TECHNICIAN CBC WITH DIFFERENTIAL Routine 03/18/2006 3:35 AM CHEMISTRY QUALITY CONTROL TECHNICIAN PHOSPHORUS Routine 03/18/2006 3:35 AM CHEMISTRY QUALITY CONTROL TECHNICIAN MAGNESIUM LEVEL Routine 03/18/2006 3:35 AM CHEMISTRY QUALITY CONTROL TECHNICIAN CALCIUM IONIZED Routine 03/18/2006 3:35 AM CHEMISTRY QUALITY CONTROL TECHNICIAN BASIC METABOLIC PANEL Routine 03/18/2006 3:35 AM CHEMISTRY QUALITY CONTROL TECHNICIAN POC GLUCOSE Routine 03/17/2006 7:58 PM CHEMISTRY QUALITY CONTROL TECHNICIAN POC GLUCOSE Routine 03/17/2006 5:31 PM CHEMISTRY QUALITY CONTROL TECHNICIAN POC GLUCOSE Routine 03/17/2006 11:51 AM CHEMISTRY QUALITY CONTROL TECHNICIAN POC GLUCOSE Routine 03/17/2006 5:59 AM CHEMISTRY QUALITY CONTROL TECHNICIAN CBC WITH DIFFERENTIAL Routine 03/17/2006 4:10 AM CHEMISTRY QUALITY CONTROL TECHNICIAN CBC WITH DIFFERENTIAL Routine 03/17/2006 4:10 AM CHEMISTRY QUALITY CONTROL TECHNICIAN PHOSPHORUS Routine 03/17/2006 4:10 AM CHEMISTRY QUALITY CONTROL TECHNICIAN MAGNESIUM LEVEL Routine 03/17/2006 4:10 AM CHEMISTRY QUALITY CONTROL TECHNICIAN CALCIUM IONIZED Routine 03/17/2006 4:10 AM CHEMISTRY QUALITY CONTROL TECHNICIAN BASIC METABOLIC PANEL Routine 03/17/2006 4:10 AM CHEMISTRY QUALITY CONTROL TECHNICIAN URINALYSIS W/REFLEX MICROSCOPIC Routine 03/16/2006 9:34 PM CHEMISTRY QUALITY CONTROL TECHNICIAN POC GLUCOSE Routine 03/16/2006 5:17 PM CHEMISTRY QUALITY CONTROL TECHNICIAN CBC WITH DIFFERENTIAL Routine 03/16/2006 3:15 AM CHEMISTRY QUALITY CONTROL TECHNICIAN CBC WITH DIFFERENTIAL Routine 03/16/2006 3:15 AM CHEMISTRY QUALITY CONTROL TECHNICIAN COMPREHENSIVE METABOLIC PANEL Routine 03/16/2006 3:15 AM CHEMISTRY QUALITY CONTROL TECHNICIAN POC GLUCOSE Routine 03/15/2006 4:16 PM CHEMISTRY QUALITY CONTROL TECHNICIAN CBC WITH DIFFERENTIAL Routine 03/15/2006 3:50 AM CHEMISTRY QUALITY CONTROL TECHNICIAN CBC WITH DIFFERENTIAL Routine 03/15/2006 3:50 AM CHEMISTRY QUALITY CONTROL TECHNICIAN PHOSPHORUS Routine 03/15/2006 3:50 AM CHEMISTRY QUALITY CONTROL TECHNICIAN MAGNESIUM LEVEL Routine 03/15/2006 3:50 AM CHEMISTRY QUALITY CONTROL TECHNICIAN CALCIUM IONIZED Routine 03/15/2006 3:50 AM CHEMISTRY QUALITY CONTROL TECHNICIAN BASIC METABOLIC PANEL Routine 03/15/2006 3:50 AM CHEMISTRY QUALITY CONTROL TECHNICIAN POC GLUCOSE Routine 03/14/2006 6:01 PM CHEMISTRY QUALITY CONTROL TECHNICIAN POC, BLOOD GASES Routine 03/14/2006 9:21 AM CHEMISTRY QUALITY CONTROL TECHNICIAN documented in this encounter Results * CBC WITH DIFFERENTIAL (03/22/2006 3:20 AM CHEMISTRY QUALITY CONTROL TECHNICIAN) NEUTROPHILS 69 45 - 70 % INTERFAC [...] 0.20 K/uL INTERFACE SYSTEM 03/22/2006 3:20 AM CHEMISTRY QUALITY CONTROL TECHNICIAN Romie Laughlin MD HEMATOLOGY ORDERABLES Final Result Performing Organization Address City/[facility] Co de Phone Number INTERFACE SYSTEM Refer to clinic/hospital department * (ABNORMAL) CBC WITH DIFFERENTIAL (03/22/2006 3:20 AM CHEMISTRY QUALITY CONTROL TECHNICIAN) WBC 9.4 4.0 - 9.8 K/uL INTERFACE [...] 12.4 fL INTERFACE SYSTEM 03/22/2006 3:20 AM CHEMISTRY QUALITY CONTROL TECHNICIAN Romie Laughlin MD HEMATOLOGY ORDERABLES Final Result Performing Organization Address City/[facility] Co de Phone Number INTERFACE SYSTEM Refer to clinic/hospital department * (ABNORMAL) PHOSPHORUS (03/22/2006 3:20 AM CHEMISTRY QUALITY CONTROL TECHNICIAN) PHOSPHORUS 5.9(H) 2.5 - 4.5 mg/dL INTERFACE SYSTEM 03/22/2006 3:20 AM CHEMISTRY QUALITY CONTROL TECHNICIAN Romie Laughlin MD CHEMISTRY ORDERABLES Final R esult Performing Organization Address [facility] Phone Number INTERFACE SYSTEM Refer to clinic/hospital department * MAGNESIUM LEVEL (03/22/2006 3:20 AM CHEMISTRY QUALITY CONTROL TECHNICIAN) MAGNESIUM 2.2 1.5 - 2.5 mg/dL INTERFACE SYSTEM 03/22/2006 3:20 AM CHEMISTRY QUALITY CONTROL TECHNICIAN Romie Laughlin MD CHEMISTRY ORDERABLES Final R esult Performing Organization Address [facility] Phone Number INTERFACE SYSTEM Refer to clinic/hospital department * (ABNORMAL) CALCIUM IONIZED (03/22/2006 3:20 AM CHEMISTRY QUALITY CONTROL TECHNICIAN) CALCIUM IONIZED 4.72(L) 4.76 - 5.16 mg/dL INTERFACE SYSTEM 03/22/2006 3:20 AM CHEMISTRY QUALITY CONTROL TECHNICIAN Romie Laughlin MD CHEMISTRY ORDERABLES Final R esult Performing Organization Address [facility] Phone Number INTERFACE SYSTEM Refer to clinic/hospital department * (ABNORMAL) BASIC METABOLIC PANEL (03/22/2006 3:20 AM CHEMISTRY QUALITY CONTROL TECHNICIAN) GLUCOSE 101(H) 65 - 99 mg/dL INTERFACE [...] and non- Americans is available on the [facility] Intranet at: [email or web address] affairs medical centerVivify Healthsouthwell tift regional medical [email or web address] Select: Lab Policies and Procedures Select: Reference Ranges - GFR 03/22/2006 3:20 AM CHEMISTRY QUALITY CONTROL TECHNICIAN Romie Laughlin MD CHEMISTRY ORDERABLES Final R esult Performing Organization Address [facility] de Phone Number INTERFACE SYSTEM Refer to clinic/hospital department * CBC WITH DIFFERENTIAL (03/20/2006 3:10 AM CHEMISTRY QUALITY CONTROL TECHNICIAN) Pathologist [facility] NEUTROPHILS 66 45 - 70 % INTERFAC [...] 0.20 K/uL INTERFACE SYSTEM 03/20/2006 3:10 AM CHEMISTRY QUALITY CONTROL TECHNICIAN Romie Laughlin MD HEMATOLOGY ORDERABLES Final Result Performing Organization Address [facility] Phone Number INTERFACE SYSTEM Refer to clinic/hospital department * (ABNORMAL) CBC WITH DIFFERENTIAL (03/20/2006 3:10 AM CHEMISTRY QUALITY CONTROL TECHNICIAN) WBC 7.6 4.0 - 9.8 K/uL INTERFACE [...] 12.4 fL INTERFACE SYSTEM 03/20/2006 3:10 AM CHEMISTRY QUALITY CONTROL TECHNICIAN Romie Laughlin MD HEMATOLOGY ORDERABLES Final Result Performing Organization Address [facility] Phone Number INTERFACE SYSTEM Refer to clinic/hospital department * (ABNORMAL) PHOSPHORUS (03/20/2006 3:10 AM CHEMISTRY QUALITY CONTROL TECHNICIAN) PHOSPHORUS 5.5(H) 2.5 - 4.5 mg/dL INTERFACE SYSTEM 03/20/2006 3:10 AM CHEMISTRY QUALITY CONTROL TECHNICIAN Romie Laughlin MD CHEMISTRY ORDERABLES Final R esult Performing Organization Address [facility] Phone Number INTERFACE SYSTEM Refer to clinic/hospital department * MAGNESIUM LEVEL (03/20/2006 3:10 AM CHEMISTRY QUALITY CONTROL TECHNICIAN) MAGNESIUM 2.0 1.5 - 2.5 mg/dL INTERFACE SYSTEM 03/20/2006 3:10 AM CHEMISTRY QUALITY CONTROL TECHNICIAN Romie Laughlin MD CHEMISTRY ORDERABLES Final R esult Performing Organization Address [facility] Phone Number INTERFACE SYSTEM Refer to clinic/hospital department * (ABNORMAL) CALCIUM IONIZED (03/20/2006 3:10 AM CHEMISTRY QUALITY CONTROL TECHNICIAN) CALCIUM IONIZED 4.52(L) 4.76 - 5.16 mg/dL INTERFACE SYSTEM 03/20/2006 3:10 AM CHEMISTRY QUALITY CONTROL TECHNICIAN Romie Laughlin MD CHEMISTRY ORDERABLES Final R esult INTERFACE SYSTEM Refer to clinic/hospital department * (ABNORMAL) BASIC METABOLIC PANEL (03/20/2006 3:10 AM CHEMISTRY QUALITY CONTROL TECHNICIAN) GLUCOSE 82 65 - 99 mg/dL INTERFACE [...] and non- Americans is available on the [facility] Intranet at: [email or web address] [email or web address] Select: Lab Policies and Procedures Select: Reference Ranges - GFR 03/20/2006 3:10 AM CHEMISTRY QUALITY CONTROL TECHNICIAN Romie Laughlin MD CHEMISTRY ORDERABLES Final R esult Performing Organization Address [facility] Co de Phone Number INTERFACE SYSTEM Refer to clinic/hospital department * (ABNORMAL) POC GLUCOSE (03/18/2006 11:16 AM CHEMISTRY QUALITY CONTROL TECHNICIAN) GLUCOSE POC 116(H) 65 - 99 mg/dL INTERFACE SYSTEM 03/18/2006 11:1 6 AM CHEMISTRY QUALITY CONTROL TECHNICIAN us Wicho Gomez MD POINT OF CARE TESTING Final R esult INTERFACE SYSTEM Refer to clinic/hospital department * (ABNORMAL) POC GLUCOSE (03/18/2006 5:02 AM CHEMISTRY QUALITY CONTROL TECHNICIAN) GLUCOSE POC 100(H) 65 - 99 mg/dL INTERFACE SYSTEM 03/18/2006 5:02 AM CHEMISTRY QUALITY CONTROL TECHNICIAN Wicho Gomez MD POINT OF CARE TESTING Final R [facility] Performing Organization Address [facility] de Phone Number INTERFACE SYSTEM Refer to clinic/hospital department * (ABNORMAL) CBC WITH DIFFERENTIAL (03/18/2006 3:35 AM CHEMISTRY QUALITY CONTROL TECHNICIAN) NEUTROPHILS 71(H) 45 - 70 % INTERFAC [...] 0.20 K/uL INTERFACE SYSTEM 03/18/2006 3:35 AM CHEMISTRY QUALITY CONTROL TECHNICIAN Wicho Gomez MD HEMATOLOGY ORDERABLES Final R esult Performing Organization Address [facility] de Phone Number INTERFACE SYSTEM Refer to clinic/hospital department * (ABNORMAL) CBC WITH DIFFERENTIAL (03/18/2006 3:35 AM CHEMISTRY QUALITY CONTROL TECHNICIAN) WBC 8.8 4.0 - 9.8 K/uL INTERFACE [...] 12.4 fL INTERFACE SYSTEM 03/18/2006 3:35 AM CHEMISTRY QUALITY CONTROL TECHNICIAN us Wicho Gomez MD HEMATOLOGY ORDERABLES Final R esult Performing Organization Address [facility] Phone Number INTERFACE SYSTEM Refer to clinic/hospital department * (ABNORMAL) PHOSPHORUS (03/18/2006 3:35 AM CHEMISTRY QUALITY CONTROL TECHNICIAN) PHOSPHORUS 5.3(H) 2.5 - 4.5 mg/dL INTERFACE SYSTEM 03/18/2006 3:35 AM CHEMISTRY QUALITY CONTROL TECHNICIAN us Wicho Gomez MD CHEMISTRY ORDERABLES Final Re sult Performing Organization Address [facility] INTERFACE SYSTEM Refer to clinic/hospital department * MAGNESIUM LEVEL (03/18/2006 3:35 AM CHEMISTRY QUALITY CONTROL TECHNICIAN) MAGNESIUM 2.3 1.5 - 2.5 mg/dL INTERFACE SYSTEM 03/18/2006 3:35 AM CHEMISTRY QUALITY CONTROL TECHNICIAN us Wicho Gomez MD CHEMISTRY ORDERABLES Final Re sult Performing Organization Address [facility] INTERFACE SYSTEM Refer to clinic/hospital department * (ABNORMAL) CALCIUM IONIZED (03/18/2006 3:35 AM CHEMISTRY QUALITY CONTROL TECHNICIAN) CALCIUM IONIZED 4.68(L) 4.76 - 5.16 mg/dL INTERFACE SYSTEM 03/18/2006 3:35 AM CHEMISTRY QUALITY CONTROL TECHNICIAN us Wicho Gomez MD CHEMISTRY ORDERABLES Final Re sult Performing Organization Address [facility] Phone Number INTERFACE SYSTEM Refer to clinic/hospital department * (ABNORMAL) BASIC METABOLIC PANEL (03/18/2006 3:35 AM CHEMISTRY QUALITY CONTROL TECHNICIAN) GLUCOSE 84 65 - 99 mg/dL INTERFACE [...] and non- Americans is available on the [facility] Intranet at: [email or web address] affairs medical centerVivify [facility]/[employer]/[email or web address] Select: Lab Policies and Procedures Select: Reference Ranges - GFR 03/18/2006 3:35 AM CHEMISTRY QUALITY CONTROL TECHNICIAN us Wicho Gomez MD CHEMISTRY ORDERABLES Final Re sult Performing Organization Address [facility] de Phone Number INTERFACE SYSTEM Refer to clinic/hospital department * (ABNORMAL) POC GLUCOSE (03/17/2006 7:58 PM CHEMISTRY QUALITY CONTROL TECHNICIAN) GLUCOSE POC 135(H) 65 - 99 mg/dL INTERFACE SYSTEM 03/17/2006 7:58 PM CHEMISTRY QUALITY CONTROL TECHNICIAN us Wciho Gomez MD POINT OF CARE TESTING Final R esult Performing Organization Address [facility] Co de Phone Number INTERFACE SYSTEM Refer to clinic/hospital department * (ABNORMAL) POC GLUCOSE (03/17/2006 5:31 PM CHEMISTRY QUALITY CONTROL TECHNICIAN) GLUCOSE POC 100(H) 65 - 99 mg/dL INTERFACE SYSTEM 03/17/2006 5:31 PM CHEMISTRY QUALITY CONTROL TECHNICIAN us Wicho Gomez MD POINT OF CARE TESTING Final R esult Performing Organization Address [facility] Co de Phone Number INTERFACE SYSTEM Refer to clinic/hospital department * (ABNORMAL) POC GLUCOSE (03/17/2006 11:51 AM CHEMISTRY QUALITY CONTROL TECHNICIAN) GLUCOSE POC 140(H) 65 - 99 mg/dL INTERFACE SYSTEM 03/17/2006 11:5 1 AM CHEMISTRY QUALITY CONTROL TECHNICIAN us Wicho Gomez MD POINT OF CARE TESTING Final R esult INTERFACE SYSTEM Refer to clinic/hospital department * POC GLUCOSE (03/17/2006 5:59 AM CHEMISTRY QUALITY CONTROL TECHNICIAN) Pathologist [id number]|2024-08-13 10:22:00|2024-08-13 10:21:00|XMS_ITS|BKG DAEMON|External Medical Summaries|[id number]|" Encounter Summary Created on: August 13, 2024 Lencho Baker : 1950 Sex: Male Author Organization [employer] Address [address] [place] [address] Care Team Providers Care Vice President Of Software Development Name Role Phone Morgan Mercado MD Primary Care Provider [phone] Encounter Details Date Type Department Care Team (Late st Contact Info) Description 04/06/2006 Outpatient Historical [facility] Carlos Rinaldi, DO [address] [place] [address] Er, Authorized P NO ADDRESS ON FILE Other Acute Postoperative Pain (Primary Dx); Pain in Soft Tissues of Limb; Abn React-Plast Surg NEC; Unspecified Place of Occurrence; Unspecified Essential Hypertension; Unspecified Hypothyroidism Social History Tobacco Use Types Packs/Day Years Used Date Smoking Tobacco: Never Assessed Sex and Gender Information Value Date Recorded Sex Assigned at Not on file Legal Sex Male 4:23 AM CHEMISTRY QUALITY CONTROL TECHNICIAN Gender Identity Not on file Sexual Orientation Not on file documented as of this encounter Plan of Treatment Not on file documented as of this encounter Procedures Procedure Name Priority Date/Time Associated Diagnosis Comments CBC WITH DIFFERENTIAL Routine 04/06/2006 11:50 AM CHEMISTRY QUALITY CONTROL TECHNICIAN CBC WITH DIFFERENTIAL Routine 04/06/2006 11:50 AM CHEMISTRY QUALITY CONTROL TECHNICIAN C-REACTIVE PROTEIN Routine 04/06/2006 11 :50 AM CHEMISTRY QUALITY CONTROL TECHNICIAN COMPREHENSIVE METABOLIC PANEL Routine 04/06/2006 11:50 AM CHEMISTRY QUALITY CONTROL TECHNICIAN documented in this encounter Results * CBC WITH DIFFERENTIAL (04/06/2006 11:50 AM CHEMISTRY QUALITY CONTROL TECHNICIAN) NEUTROPHILS 65 45 - 70 % INTERFAC [...] K/uL INTERFACE SYSTEM 04/06/2006 11:5 0 AM CHEMISTRY QUALITY CONTROL TECHNICIAN Carlos Rinaldi DO HEMATOLOGY ORDERABLES Edited INTERFACE SYSTEM Refer to clinic/hospital department * (ABNORMAL) CBC WITH DIFFERENTIAL (04/06/2006 11:50 AM CHEMISTRY QUALITY CONTROL TECHNICIAN) WBC 5.9 4.0 - 9.8 K/uL INTERFACE [...] fL INTERFACE SYSTEM 04/06/2006 11:5 0 AM CHEMISTRY QUALITY CONTROL TECHNICIAN Carlos Rinaldi DO HEMATOLOGY ORDERABLES Edited Performing Organization Address City/[facility] Co de Phone Number INTERFACE SYSTEM Refer to clinic/hospital department * (ABNORMAL) C-REACTIVE PROTEIN (04/06/2006 11:50 AM CHEMISTRY QUALITY CONTROL TECHNICIAN) CRP 2.1(H) 0.0 - 0.8 mg/dL INTERFACE SYSTEM 04/06/2006 11:5 0 AM CHEMISTRY QUALITY CONTROL TECHNICIAN Carlos Rinaldi DO CHEMISTRY ORDERABLES Edited Performing Organization Address [facility] Co de Phone Number INTERFACE SYSTEM Refer to clinic/hospital department * (ABNORMAL) COMPREHENSIVE METABOLIC PANEL (04/06/2006 11:50 AM CHEMISTRY QUALITY CONTROL TECHNICIAN) GLUCOSE 81 65 - 99 mg/dL INTERFACE [...] and non- Americans is available on the [facility] Intranet at: [email or web address] Select: Lab Policies and Procedures Select: Reference Ranges - GFR 04/06/2006 11:5 0 AM CHEMISTRY QUALITY CONTROL TECHNICIAN Carlos Rinaldi DO CHEMISTRY ORDERABLES Edited INTERFACE SYSTEM Refer to clinic/hospital department documented in this encounter Visit Diagnoses Diagnosis Other acute postoperative pain- Primary Pain in limb Other restorative surgery causing abnormal patient reaction, or later complication, without mention of misadventure at time of operation Unspecified place of occurrence Unspecified essential hypertension Unspecified hypothyroidism documented in this encounter Care Teams Vice President Of Software Development Relationship Specialty Start Date End Date Morgan Mercado MD [address] [place], [place] [address] [address] PCP - General Family Practice 11/02/16 documented as of this encounter "
--- OUTSIDE RECORDS SUMMARY | 2024-08-13 10:22 | XMS_ITS | Encounter Summary ---
Author Organization [employer] Address [address] [place] [address] Care Team Providers Care Orthopedics Nurse Name Role Phone Morgan Mercado MD Primary Care Provider [phone] Encounter Details Date Type Department Care Team (Late st Contact Info) Description 03/18/2006 Outpatient Historical Division of Neurology [address] [address] Lencho Ibanez MD [address] [facility] [address] [place] [address] Social History Tobacco Use Types Packs/Day Years Used Date Smoking Tobacco: Never Assessed Sex and Gender Information Value Date Recorded Sex Assigned at Not on file Legal 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
--- OUTSIDE RECORDS SUMMARY | 2024-08-13 10:22 | XMS_ITS | Encounter Summary ---
Author Organization [facility] Address 

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
--- OUTSIDE RECORDS SUMMARY | 2024-08-13 10:23 | XMS_ITS | Encounter Summary ---
Author Organization [facility] Address [address] [place] [address] Care Team Providers Care Multiskill Operator Name Role Phone Morgan Mercado MD Primary Care Provider [phone] Encounter Details Date Type Department Care Team (Late st Contact Info) Description 06/21/2006 Outpatient Historical [facility] [id number] [facility] [address] [place] [phone] Wicho Gomez MD [address] 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
--- OUTSIDE RECORDS SUMMARY | 2024-08-13 10:23 | XMS_ITS | Encounter Summary ---
Author Organization [facility] Address [address] [place] [address] Care Team Providers Care Toolmaker Grade Three Name Role Phone Morgan Mercado MD Primary Care Provider [phone] Encounter Details Date Type Department Care Team (Late st Contact Info) Description 07/15/2006 Outpatient Historical [facility] [address] [facility] [address] [place] [phone] Wicho Gomez MD [address] 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
--- OUTSIDE RECORDS SUMMARY | 2024-08-13 10:23 | XMS_ITS | Encounter Summary ---
Author Organization [facility] Address [address] [place] [address] Care Team Providers Care Display Coordinator Name Role Phone Morgan Mercado MD Primary Care Provider [phone] Encounter Details Date Type Department Care Team (Late st Contact Info) Description 07/06/2006 Outpatient Historical [facility] [address] [facility] [address] [place] [phone] Harshad Heller MD [address] [facility] [address] [facility] [place] [address] Social History Tobacco Use Types Packs/Day Years Used Date Smoking Tobacco: Never Assessed Sex and Gender Information Value Date Recorded Sex Assigned at Not on file Legal Sex Male 4:23 AM PROFESSIONAL ARCHITECT Gender Identity Not on file Sexual Orientation Not on file documented as of this encounter Plan of Treatment Not on file documented as of this encounter Visit Diagnoses Not on filedocumented in this encounter Care Teams Display Coordinator Relationship Specialty Start Date End Date Morgan Mercado MD [facility] [place] [address] PCP - General Family Practice 11/02/16 documented as of this encounter
--- OUTSIDE RECORDS SUMMARY | 2024-08-13 10:23 | XMS_ITS | Continuity of Care Document ---
Author Name [facility] Organization [facility] Care Team Providers Care Professor Of German Name Role Phone [facility] Unavailable Unavailable Problems Combined list of problems from Department of Defense and [facility] Affairs facilities. It does not include entries that were removed or entered in error. Problem Status Onset Date Problem Type Date of Resolution Comments Source Positive ETT, normal heart cath Active 992 Condition [facility] Peptic Ulcer Active 981 Condition [facility] abnormal ct scan of abdomen Active Condition May 02, 2014 Entered By: FABY MONTANA Comment: 09/14/13 irregularity of the right kidneyFe2014 Entered By: FABY MONTANA Comment: 05/02/14 no changes [facility] AF- Atrial Fibrillation (SCT 81199768) Active Condition [facility] Anxiety ([facility] 34800600) Active Condition [facility] Arthritis, Gouty Active Condition [facility] Santos Active Condition July 26 08 Entered By: NICKIE PEDROZA Comment: SUSTAINED OVER 75% OF BODY IN 2005 [facility] Cardiomyopathy (SCT 73868007) Active Condition [facility] Chronic kidney disease (SNOMED CT 572703759) Active Condition [facility] Chronic low back pain Active Condition Jan 18, 2001 Entered By: REID GALINDO Comment: sp lumbar disc surgery L3/4- L4/5 [facility] Chronic low back pain (SNOMED CT 758516399) Active Condition Jun Entered By: YOU DAO Comment: s/p laminectomy [facility] Clear cell carcinoma of kidney Active Condition [facility] COPD - Chronic Obstructive Pulmonary Disease (SCT 69213306) Active Condition [facility] Dependence on renal dialysis Active Condition [facility] Depression (SCT 70543242) Active Condition [facility] Diabetes Mellitus Type 2 (SCT 62503586) Active Condition [facility] End-stage renal disease Active Condition [facility] Gout Active Condition [facility] History of partial nephrectomy Active Condition [facility] HTN Active Condition [facility] HTN - Hypertension (SCT 05358814) Active Condition [facility] Hyperlipidemia (SCT 75821158) Active Condition [facility] Hyperparathyroidism due to renal insufficiency Active Condition [facility] Lesion of liver Active Condition [facility] Liver mass Active Condition [facility] Low Back Pain (SCT 972307302) Active Condition [facility] Malignant Melanoma of Skin ([facility] 88774088) Active Condition [facility] Personal History of Alcoholism (ICD-9-CM V11.3) Active Condition [facility] Posttraumatic stress disorder Active Condition [facility] Renal Cancer ([facility] 101822616) Active Condition [facility] Renal cell carcinoma Active Condition [facility] Renal mass (SNOMED CT 556667406) Active Condition [facility] Scarring (ICD-9-CM 709.2) Active Condition Jan 27, 2007 Entered By: OSMEL PERLA Comment: 04/29 70% OF BODY BURNT [facility] Generalized Anxiety Disorder Inactive Condition 12/31/2020 [facility] Hyperlipidemia (SNOMED CT 44881221) Inactive Condition 12/26/2018 Jul 14, 1995 Entered By: YOU DAO Comment: High chol & triglyc [facility] Hypertension Inactive Condition 12/26/2018 [facility] Renal Impairment (SCT 343445155) Inactive Condition 02/09/2023 [facility] Tobacco user (SNOMED CT 911868341) Inactive Condition 12/31/2020 [facility] Type 2 diabetes mellitus (SNOMED CT 63865354) Inactive Condition 12/26/2018 [facility] Diagnosis: ICD-10-CM E11.9 Type 2 diabetes mellitus without complications Active Diagnosis [facility] Diagnosis: ICD-10-CM H47.20 Unspecified optic atrophy Active Diagnosis [facility] Diagnosis: ICD-10-CM N18.6 End stage renal disease Active Diagnosis [facility] Diagnosis: ICD-10-CM Z72.0 Tobacco use Active Diagnosis [facility] Diagnosis: ICD-10-CM K08.109 Complete loss of teeth, unspecified cause, unspecified class Active Diagnosis [facility] Diagnosis: ICD-10-CM Z13.5 Encounter for screening for eye and ear disorders Active Diagnosis [facility] Diagnosis: ICD-10-CM F41.9 Anxiety disorder, unspecified Active Diagnosis [facility] Diagnosis: ICD-10-CM H53.9 Unspecified visual disturbance Active Diagnosis [facility] Medications Combined list of outpatient medications from Department of Defense and Veterans Affairs facilities.Medications provided include 1) outpatient medications from the last 15 months, and 2) patient-reported medications. Medication Details Route Status Patient Instructions Prescription Expires Prescription Number Last Dispense Date Ordering Provider Order Date Order Qty Source ALPRAZOLAM 1MG TAB TAKE ONE TABLET BY MOUTH TWICE A DAY ORAL ACTIVE ERICA CUETO 2022 [facility] Jack CARISOPRODO L 350MG TAB TAKE ONE TABLET BY MOUTH THREE TIMES A DAY ORAL ACTIVE DEISY CRESPO 2013 [facility] [place] DOXAZOSIN MESYLATE 8MG TAB TAKE ONE-HALF TABLET BY MOUTH AT BEDTIME ORAL ACTIVE DEISY CRESPO 2013 [facility] [place] GLIMEPIRIDE 4MG TAB TAKE ONE TABLET BY MOUTH ONCE A DAY ORAL ACTIVE LEVI RODRÍGUEZ 2019 [facility] N LISINOPRIL 40MG TAB TAKE ONE-HALF TABLET BY MOUTH ONCE A DAY ORAL ACTIVE DEISY CRESPO RI B 2013 [facility] METOPROLOL SUCCINATE 200MG TAB,SA TAKE ONE-HALF TABLET BY MOUTH ONCE A DAY ORAL ACTIVE DEISY CRESPO RI B 2013 [facility] NICOTINE 14MG/24HRS PATCH APPLY 1 PATCH TO SKIN SITE EVERY MORNING FOR TOBACCO CESSATIO N REMOVE OLD PATCH BEFORE APPLYING NEW ONE. ROTATE SITES. DO NOT SMOKE WHILE WEARING PATCH. TRANSD ERMAL ACTIVE 10/26/2024 [id number] 4 Gaby GARCIA ATIE E 2023 28 [facility] N NICOTINE 14MG/24HRS PATCH APPLY 1 PATCH TO SKIN SITE EVERY MORNING REMOVE OLD PATCH BEFORE APPLYING NEW ONE. ROTATE SITES. DO NOT SMOKE WHILE WEARING PATCH. TRANSD ERMAL DISCONT INUED 11/02/2023 [id number] 4 Gaby GARCIA ATIE E 2023 42 [facility] NICOTINE POLACRILEX 2MG MINI LOZENGE DISSOLVE 1 LOZENGE BY MOUTH EVERY 4 HOURS NEEDED FOR TOBACCO CESSATIO N DO NOT SMOKE WHILE USING THIS MEDICATI ON ORAL ACTIVE 10/26/2024 [id number] 4 Gaby GARCIA ATIE E 2023 162 [facility] N NICOTINE POLACRILEX 2MG MINI LOZENGE DISSOLVE 1 LOZENGE BY MOUTH EVERY TWO HOURS NEEDED .DO NOT SMOKE WHILE USING THIS MEDICATI ON. ORAL 10/21/2023 [id number] 4 Gaby GARCIA ATIE E 2023 162 [facility] N OXYCODONE HCL 5MG/ACETAMI NOPHEN 325MG TAB TAKE ONE TABLET BY MOUTH EVERY 6 HOURS NEEDED ORAL ACTIVE LULI MONTANA SA 2015 [facility] N SIMVASTATIN 20MG TAB TAKE ONE-HALF TABLET BY MOUTH EVERY EVENING ORAL ACTIVE Gaby GARCIA ATADDISON E 2024 [facility] N VITAMIN B COMPLEX CAP TAKE 1 CAPSULE BY MOUTH ONCE A DAY ORAL ACTIVE DEISY CRESPO 2013 [facility] Allergies, Adverse Reactions, Alerts Combined list of allergies from Department of [facility] and Veterans Affairs facilities. It does not include entries that were removed or entered in error. Substance Category Reaction Severity Reaction type Status Date Reported Comments Source CODEINE Propensity to adverse reactions to drug (finding) Swelling, Itching active 9 [facility] Immunizations Combined list of available immunizations from the [facility] and [facility] facilities. Immunization Series Date Given Administered By Site Reaction Lot Number CVX Code Drug Locate Technician Status Comments Source INFLUENZA, HIGH-DOSE, QUADRIVALENT 2019 197 complet ed HISTORICA L INFORMATI ON - FROM OTHER PROVIDER, [facility] INFLUENZA, UNSPECIFIED FORMULATION 2015 88 complet ed [facility] INFLUENZA, UNSPECIFIED FORMULATION 2014 88 complet ed [facility] INFLUENZA, UNSPECIFIED FORMULATION 2013 88 complet ed [facility] ZOSTER LIVE 2013 121 [facility] ed [facility] INFLUENZA, UNSPECIFIED FORMULATION 2012 88 [facility] ed [facility] PNEUMOCOCCAL POLYSACCHARID E PPV23 1 2012 33 complet ed HISTORICA L INFORMATI ON - FROM OTHER REGISTRY, [facility] INFLUENZA, UNSPECIFIED FORMULATION 2008 88 complet ed [facility] INFLUENZA, UNSPECIFIED FORMULATION 2008 88 complet ed [facility] N TDAP 2005 115 [facility] ed [facility] INFLUENZA (HISTORICAL) 2001 88 [facility] ed [facility] Results Combined list of recent chemistry, hematology and other laboratory results from [facility] of [facility] and Veterans Affairs, ranging from 15 months to all on record, depending upon the facility. Order Name Results Value Reference Range Date Interpretation Specimen Comments Source SVEN FUNK GC/MS BUTALBITAL [PRESENCE] IN URINE NEG 02/09 Specimen Type: URINE Comment: DETECTION LIMIT: 100 ng/mL Ordering Provider: SINDHU PEDROZA Report Released Date/Time: Feb 09, 2023 10:29 AM Reporting Lab: [facility] [address] [place] [phone] Performing Lab: [address] [facility] BARBITUR ATES GC/MS PENTOBARBI DAGOBERTO [PRESENCE] IN URINE NEG 02/09 Specimen Type: URINE Comment: DETECTION LIMIT: 100 ng/mL Ordering Provider: SINDHU PEDROZA Report Released Date/Time: Feb 09, 2023 10:29 AM Reporting Lab: [place] [address] Performing Lab: [address] [facility] ATES GC/MS SECOBARBIT AL [MASS/VOLU ME] IN SERUM OR PLASMA NEG 02/09 Specimen Type: URINE Comment: DETECTION LIMIT: 100 ng/mL Ordering Provider: SINDHU PEDROZA Report Released Date/Time: Feb 09, 2023 10:29 AM Reporting Lab: [address] [address] Performing Lab: [address] [facility] [place] ATES GC/MS PHENOBARBI DAGOBERTO [MASS/VOLU ME] IN URINE NEG 02/09 Specimen Type: URINE Comment: DETECTION LIMIT: 100 ng/mL Ordering Provider: SINDHU PEDROZA Report Released Date/Time: Feb 09, 2023 10:29 AM Reporting Lab: [address] [address] Performing Lab: [address] [facility] [place] ATES GC/MS AMOBARBITA L [PRESENCE] IN SPECIMEN NEG 02/09 Specimen Type: URINE Comment: DETECTION LIMIT: 100 ng/mL Ordering Provider: SINDHU PEDROZA Report Released Date/Time: Feb 09, 2023 10:29 AM Reporting Lab: [address] [address] Performing Lab: [address] [facility] ATES GC/MS BARBITURAT E SCREEN PRESENT [IDENTIFIE R] IN URINE NEGATIVE 02/09 Specimen Type: URINE Comment: DETECTION LIMIT: 100 ng/mL Ordering Provider: SINDHU PEDROZA Report Released Date/Time: Feb 09, 2023 10:29 AM Reporting Lab: [address] [address] Performing Lab: [address] [facility] AT[facility] GC/MS BARBITUATE S COMMENTS comment 02/09 Specimen Type: URINE Comment: DETECTION LIMIT: 100 ng/mL Ordering Provider: SINDHU PEDROZA Report Released Date/Time: Feb 09, 2023 10:29 AM Reporting Lab: [address] [address] Performing Lab: [address] [facility] URINALYS IS (STL) COLOR OF URINE Light-Ye llow 02/09 Specimen Type: URINE No comment entered. Ordering Provider: SINDHU PEDROZA Report Released Date/Time: Feb 09, 2023 10:29 AM Reporting Lab: [address] [address] Performing Lab: [address] [address] [facility] URINALYS IS (STL) BILIRUBIN. TOTAL [PRESENCE] IN URINE BY TEST STRIP Negative mg/dL 02/09 Specimen Type: URINE No comment entered. Ordering Provider: SINDHU PEDROZA Report Released Date/Time: Feb 09, 2023 10:29 AM Reporting Lab: [place] [address] [facility] [address] Performing Lab: [address] [address] [facility] URINALYS IS (STL) PH OF URINE BY TEST STRIP 7.5 5.0 - 8.0 02/09 Specimen Type: URINE No comment entered. Ordering Provider: SINDHU PEDROZA Report Released Date/Time: Feb 09, 2023 10:29 AM Reporting Lab: [place] [address] [facility] [address] Performing Lab: [address] [address] [facility] URINALYS IS (STL) LEUKOCYTES [#/AREA] IN URINE SEDIMENT BY MICROSCOPY HIGH POWER FIELD <1/[HPF] 0 - 5 02/09 Specimen Type: URINE No comment entered. Ordering Provider: SINDHU PEDROZA Report Released Date/Time: Feb 09, 2023 10:29 AM Reporting Lab: [place] [address] [facility] [address] Performing Lab: [place] [address] [facility] [address] [facility] URINALYS IS (STL) ERYTHROCYT ES [#/VOLUME] IN URINE SEDIMENT BY MICROSCOPY HIGH POWER FIELD <1/[HPF] 0 - 5 02/09 Specimen Type: URINE No comment entered. Ordering Provider: SINDHU PEDROZA Report Released Date/Time: Feb 09, 2023 10:29 AM Reporting Lab: [place] [address] [facility] [phone] Performing Lab: [address] [address] [facility] URINALYS IS (STL) APPEARANCE OF URINE Clear 02/09 Specimen Type: URINE No comment entered. Ordering Provider: SINDHU PEDROZA Report Released Date/Time: Feb 09, 2023 10:29 AM Reporting Lab: [place] [address] [facility] [address] Performing Lab: [address] [phone] [facility] URINALYS IS (STL) NITRITE [PRESENCE] IN URINE BY TEST STRIP Negative mg/dL 02/09 Specimen Type: URINE No comment entered. Ordering Provider: SINDHU PEDROZA Report Released Date/Time: Feb 09, 2023 10:29 AM Reporting Lab: [place] [address] [facility] [address] Performing Lab: [address] [address] [facility] URINALYS IS (STL) GLUCOSE [MASS/VOLU ME] IN URINE BY TEST STRIP Normalmg /dL 02/09 Specimen Type: URINE No comment entered. Ordering Provider: SINDHU PEDROZA Report Released Date/Time: Feb 09, 2023 10:29 AM Reporting Lab: [place] [address] [facility] [address] Performing Lab: [address] [address] [facility] URINALYS IS (STL) PROTEIN [MASS/VOLU ME] IN URINE BY TEST STRIP 200 mg/dL - 20 02/09 H Specimen Type: URINE No comment entered. Ordering Provider: SINDHU PEDROZA Report Released Date/Time: Feb 09, 2023 10:29 AM Reporting Lab: [place] [address] [facility] [address] Performing Lab: [address] [address] [facility] URINALYS IS (STL) URN.UROBIL INOGEN Normalmg /dL 02/09 Specimen Type: URINE No comment entered. Ordering Provider: SINDHU PEDROZA Report Released Date/Time: Feb 09, 2023 10:29 AM Reporting Lab: [address] [address] Performing Lab: [place] [address] [facility] [phone] [facility] URINALYS IS (STL) HEMOGLOBIN [MASS/VOLU ME] IN URINE BY TEST STRIP Negative mg/dL 02/09 Specimen Type: URINE No comment entered. Ordering Provider: SINDHU PEDROZA Report Released Date/Time: Feb 09, 2023 10:29 AM Reporting Lab: [place] [address] [facility] [phone] Performing Lab: [address] [address] [facility] URINALYS IS (STL) KETONES [MASS/VOLU ME] IN URINE BY TEST STRIP Negative mg/dL 02/09 Specimen Type: URINE No comment entered. Ordering Provider: SINDHU PEDROZA Report Released Date/Time: Feb 09, 2023 10:29 AM Reporting Lab: [place] [address] [facility] [address] Performing Lab: [address] [address] [facility] URINALYS IS (STL) URN.LEUK.E ST. Negative mg/dL 02/09 Specimen Type: URINE No comment entered. Ordering Provider: SINDHU PEDROZA Report Released Date/Time: Feb 09, 2023 10:29 AM Reporting Lab: [place] [address] [facility] [address] Performing Lab: [place] [address] [facility] [address] [facility] URINALYS IS (STL) SPECIFIC GRAVITY OF URINE 1.012 1.005 - 1.029 02/09 Specimen Type: URINE No comment entered. Ordering Provider: SINDHU PEDROZA Report Released Date/Time: Feb 09, 2023 10:29 AM Reporting Lab: [address] [address] Performing Lab: [address] [address] [facility] METHADON E PANEL (STL) ETHANOL [MASS/VOLU ME] IN URINE Negative mg/dL 0 - 20 02/09 Specimen Type: URINE Comment: The cut-off value for this test was laboratory developed and its performance characteris tics confirmed by the [facility] laboratory thru method comparison with reference laboratory and medication chart review. The laboratory is regulated under CLIA as qualified to perform high-comple xity testing. This test is used for clinical purposes in conjunction with other laboratory tests. Ordering Provider: SINDHU PEDROZA Report Released Date/Time: Feb 09, 2023 10:29 AM Reporting Lab: [address] [address] Performing Lab: [address] [address] [facility] METHADON E PANEL (STL) AMPHETAMIN E [PRESENCE] IN URINE BY SCREEN METHOD Negative ng/mL 02/09 Specimen Type: URINE Comment: The cut-off value for this test was laboratory developed and its performance characteris tics confirmed by the [facility] laboratory thru method comparison with reference laboratory and medication chart review. The laboratory is regulated under CLIA as qualified to perform high-comple xity testing. This test is used for clinical purposes in conjunction with other laboratory tests. Ordering Provider: SINDHU PEDROZA Report Released Date/Time: Feb 09, 2023 10:29 AM Reporting Lab: [address] [address] Performing Lab: [address] [address] [facility] METHADON E PANEL (STL) BENZOYLECG ONINE [PRESENCE] IN URINE Negative ng/mL 02/09 Specimen Type: URINE Comment: The cut-off value for this test was laboratory developed and its performance characteris tics confirmed by the [facility] laboratory thru method comparison with reference laboratory and medication chart review. The laboratory is regulated under CLIA as qualified to perform high-comple xity testing. This test is used for clinical purposes in conjunction with other laboratory tests. Ordering Provider: SINDHU PEDROZA Report Released Date/Time: Feb 09, 2023 10:29 AM Reporting Lab: [place] [address] [facility] [phone] Performing Lab: [place] [address] [facility] [address] [facility] METHADON E PANEL (STL) BENZODIAZE PINES [PRESENCE] IN URINE BY SCREEN METHOD 487.1000 -POSng/m L 02/09 Specimen Type: URINE Comment: The cut-off value for this test was laboratory developed and its performance characteris tics confirmed by the [facility] laboratory thru method comparison with reference laboratory and medication chart review. The laboratory is regulated under CLIA as qualified to perform high-comple xity testing. This test is used for clinical purposes in conjunction with other laboratory tests. Ordering Provider: SINDHU PEDROZA Report Released Date/Time: Feb 09, 2023 10:29 AM Reporting Lab: [place] [address] [facility] [address] Performing Lab: [address] [address] [facility] METHADON E PANEL (STL) CANNABINOI DS [PRESENCE] IN URINE BY SCREEN METHOD Negative ng/mL 02/09 Specimen Type: URINE Comment: The cut-off value for this test was laboratory developed and its performance characteris tics confirmed by the [facility] laboratory thru method comparison with reference laboratory and medication chart review. The laboratory is regulated under CLIA as qualified to perform high-comple xity testing. This test is used for clinical purposes in conjunction with other laboratory tests. Ordering Provider: SINDHU PEDROZA Report Released Date/Time: Feb 09, 2023 10:29 AM Reporting Lab: [place] [address] [facility] [address] Performing Lab: [address] [address] [facility] METHADON E PANEL (STL) METHADONE [PRESENCE] IN URINE Negative ng/mL 02/09 Specimen Type: URINE Comment: The cut-off value for this test was laboratory developed and its performance characteris tics confirmed by the [facility] laboratory thru method comparison with reference laboratory and medication chart review. The laboratory is regulated under CLIA as qualified to perform high-comple xity testing. This test is used for clinical purposes in conjunction with other laboratory tests. Ordering Provider: SINDHU PEDROZA Report Released Date/Time: Feb 09, 2023 10:29 AM Reporting Lab: [facility] [address] [facility] [address] Performing Lab: [address] [address] [facility] METHADON E PANEL (STL) OPIATES [PRESENCE] IN URINE BY SCREEN METHOD Negative ng/mL 02/09 Specimen Type: URINE Comment: The cut-off value for this test was laboratory developed and its performance characteris tics confirmed by the [facility] laboratory thru method comparison with reference laboratory and medication chart review. The laboratory is regulated under CLIA as qualified to perform high-comple xity testing. This test is used for clinical purposes in conjunction with other laboratory tests. Ordering Provider: SINDHU PEDROZA Report Released Date/Time: Feb 09, 2023 10:29 AM Reporting Lab: [facility] [address] [facility] [address] Performing Lab: [place] [address] [facility] [phone] [facility] METHADON E PANEL (STL) CREATININE [MASS/VOLU ME] IN URINE 77.6 mg/dL 63 - 166 02/09 Specimen Type: URINE Comment: The cut-off value for this test was laboratory developed and its performance characteris tics confirmed by the [facility] laboratory thru method comparison with reference laboratory and medication chart review. The laboratory is regulated under CLIA as qualified to perform high-comple xity testing. This test is used for clinical purposes in conjunction with other laboratory tests. Ordering Provider: SINDHU PEDROZA Report Released Date/Time: Feb 09, 2023 10:29 AM Reporting Lab: [facility] [address] [facility] [address] Performing Lab: [address] [address] [facility] METHADON E PANEL (STL) OXYCODONE CUTOFF [MASS/VOLU ME] IN URINE FOR SCREEN METHOD 661-POSn g/mL 02/09 Specimen Type: URINE Comment: The cut-off value for this test was laboratory developed and its performance characteris tics confirmed by the [facility] laboratory thru method comparison with reference laboratory and medication chart review. The laboratory is regulated under CLIA as qualified to perform high-comple xity testing. This test is used for clinical purposes in conjunction with other laboratory tests. Ordering Provider: SINDHU PEDROZA Report Released Date/Time: Feb 09, 2023 10:29 AM Reporting Lab: [address] [address] Performing Lab: [address] [address] [facility] METHADON E PANEL (STL) BUPRENORPH INE [PRESENCE] IN URINE Negative 02/09 Specimen Type: URINE Comment: The cut-off value for this test was laboratory developed and its performance characteris tics confirmed by the [facility] laboratory thru method comparison with reference laboratory and medication chart review. The laboratory is regulated under CLIA as qualified to perform high-comple xity testing. This test is used for clinical purposes in conjunction with other laboratory tests. Ordering Provider: SINDHU PEDROZA Report Released Date/Time: Feb 09, 2023 10:29 AM Reporting Lab: [place] [address] [facility] [address] Performing Lab: [address] [address] [facility] METHADON E PANEL (STL) FENTANYL [PRESENCE] IN URINE Negative ng/mL 02/09 Specimen Type: URINE Comment: The cut-off value for this test was laboratory developed and its performance characteris tics confirmed by the [facility] laboratory thru method comparison with reference laboratory and medication chart review. The laboratory is regulated under CLIA as qualified to perform high-comple xity testing. This test is used for clinical purposes in conjunction with other laboratory tests. Ordering Provider: SINDHU PEDROZA Report Released Date/Time: Feb 09, 2023 10:29 AM Reporting Lab: [place] [address] [facility] [address] Performing Lab: [address] [address] [facility] RAPID PLASMA REAGIN (RPR) REAGIN AB [PRESENCE] IN SERUM BY RPR NONREACT LORAINE 02/09 Specimen Type: SERUM No comment entered. Ordering Provider: SINDHU PEDROZA Report Released Date/Time: Feb 09, 2023 10:29 AM Reporting Lab: [place] [address] [facility] [address] Performing Lab: [address] [address] [facility] QUANTIFE CLARITZA-TB,4 TUBE MYCOBACTER IUM TUBERCULOS [...] additional information , please refer to http://educ [email or web address].The [employer] .com/faq/FA Q204 (This link is being provided for information / educational purposes only.) Test Performed by [employer] [place], [address] [place], [place] Rodolfo Mario M.D., Ph.D., Director of Laboratorie s , CLIA [id number] Ordering Provider: SINDHU PEDROZA Report Released Date/Time: Feb 09, 2023 10:29 AM Reporting Lab: [facility] [address] [facility] [address] Performing Lab: [facility] [id number] [place] [address] [facility] QUANTIFE CLARITZA-TB,4 TUBE MYCOBACTER IUM TUBERCULOS [...] additional information , please refer to http://educ [email or web address].The Good [employer] .[employer]/faq/FA Q204 (This link is being provided for information / educational purposes only.) Test Performed by [employer] [place], [address] [place] Rodolfo Mario M.D., Ph.D., Director of Laboratorie s , CLIA [id number] Ordering Provider: SINDHU PEDROZA Report Released Date/Time: Feb 09, 2023 10:29 AM Reporting Lab: [facility] [address] [facility] [address] Performing Lab: [facility] [address] [place] [address] [facility] QUANTIFE CLARITZA-TB,4 TUBE MYCOBACTER IUM TUBERCULOS [...] additional information , please refer to http://educ ation.The Good Jobs .com/faq/FA Q204 (This link is being provided for information / educational purposes only.) Test Performed by [employer] [place], [employer] [facility], [address] [place] [address] Rodolfo Mario M.D., Ph.D., Director of Laboratorie s , [place] [id number] Ordering Provider: SINDHU PEDROZA Report Released Date/Time: Feb 09, 2023 10:29 AM Reporting Lab: [facility] [address] [place] [address] Performing Lab: [facility] [address] [facility] QUANTIFE CLARITZA-TB,4 TUBE MYCOBACTER IUM TUBERCULOS [...] elicit responses from TB antigen primed CD4+ [id number]|2024-08-13 10:18:00|2024-08-13 10:18:00|ED_ITS|[facility]|Health Information Management|[id number]|"HPI - Female Genitourinary General Chief complaint: Urogenital-Female Stated complaint: Urinary Problem Time Seen by Provider: 08/13/24 10:18 Source: patient and RN notes reviewed Mode of arrival: ambulatory Limitations: no limitations History of Present Illness HPI Narrative: 28-year-old female presents concern for 1 out day history of dysuria, frequency, difficulty with urine strain. She reports low back pain. Reports suprapubic pressure. She denies fever, aches, chills, sweats. She reports nausea without vomiting. MD elicited complaint: UTI Related Data Home Medications Medication Instructions Recorded Confirmed Last Taken Type cariprazine 1.5 mg capsule 1.5 mg PO Q24H 07/06/24 07/06/24 Unknown History (Vraylar) hydroxyzine HCl 10 mg tablet 10 mg PO DAILY 07/06/24 07/06/24 Unknown History pantoprazole 40 mg tablet,delayed 40 mg PO DAILY 07/06/24 07/06/24 Unknown History release albuterol sulfate 90 mcg/actuation inhalation 08/13/24 Unknown History aerosol inhaler budesonide-formoterol HFA 160 inhalation 08/13/24 Unknown History mcg-4.5 mcg/actuation aerosol inhaler (Symbicort) cetirizine 10 mg tablet mg 08/13/24 Unknown History etonogestrel subdermal 08/13/24 Unknown History Allergies Allergy/AdvReac Type Severity Reaction Status Date / Time amoxicillin (From Augmentin) Allergy Other Verified 08/13/24 10:06 clavulanic acid (From Allergy Other Verified 08/13/24 10:06 Augmentin) Penicillins Allergy Other Verified 08/13/24 10:06 enoxaparin (From Lovenox) AdvReac Rash Verified 08/13/24 10:06 Review of Systems Review of Systems: CONSTITUTIONAL: Denies malaise, chills, sweats, or fever. CARDIOVASCULAR: Denies chest pain, palpitations, or edema. RESPIRATORY: Denies cough or dyspnea. GASTROINTESTINAL: Denies abdominal pain, nausea, vomiting, diarrhea GENITOURINARY: Reports dysuria, frequency, urgency, suprapubic pressure. Denies flank pain or hematuria. SKIN: Denies rash or itching. MUSCULOSKELETAL: Denies back pain or myalgia. All systems reviewed & are unremarkable except as noted in HPI and below PMFSH Past Medical History Medical History Asthma delivery delivered History of depression Surgical History Surgical History History of sleeve gastrectomy Family History Family History Other Patient denies significant medical history Social History Social History Smoking status: Never smoker Second hand tobacco smoke exposure: No Substance use: never Lack of Transportation: No Lack of Food: Never True Current Housing: I Have Housing Concerned About Future Housing: No Difficulty Paying Gas/Electric Bills: No Difficulty Paying for Meds: No Currently Unemployed: No Education: Grade School Difficulty w/ Childcare or Family Care: No Spiritual care concerns: No Comments At time of signature, agree with nursing past medical, surgical, social and family history. There is no relevant family history pertinent to the presenting complaint Exam Narrative: GENERAL: Well-appearing, well-nourished, and in no acute distress. HEAD: Normocephalic. EYES: PERRLA, conjunctivae clear. NECK: Supple. No lymphadenopathy CHEST: Clear to auscultation. No respiratory distress. HEART: Regular rate and rhythm. ABDOMEN: Soft, suprapubic tenderness, otherwise nontender upon palpation, nondistended, normal active bowel sounds, no palpable or pulsatile masses, no guarding. Bilateral CVA tenderness SKIN: Warm, dry, no rash. NEURO: Alert and oriented x3. PSYCH: Normal mood and affect Course Course Emergency Course: Patient is aware of diagnosis, understands and agrees to treatment plan. Anticipatory guidance given. Patient agrees to follow-up as directed and is aware of reasons to seek care at the emergency department. Portions of this record may have been created with voice recognition software Level of Care: Express Care Visit Vital Signs Vital signs: Vital Signs Temperature 98.0 F 08/13/24 10:02 Pulse Rate 66 08/13/24 10:02 Respiratory Rate 16 08/13/24 10:02 Blood Pressure 117/74 08/13/24 10:02 Pulse Oximetry 100 08/13/24 10:02 Oxygen Delivery Room Air 08/13/24 10:02 Temperature 98.0 F 08/13/24 10:02 Pulse Rate 66 08/13/24 10:02 Respiratory Rate 16 08/13/24 10:02 Blood Pressure 117/74 08/13/24 10:02 Pulse Oximetry 100 08/13/24 10:02 Oxygen Delivery Room Air 08/13/24 10:02 Reviewed. MDM - Female Genitourinary MDM Narrative Medical decision making narrative: Exam findings and UA show no acute concerns or changes; patient is non-toxic appearing and is in no distress. Patient is appropriate for outpatient treatment and follow-up. Differential Diagnosis Differential diagnosis: Likely urinary tract infection and cystitis Critical Care Time Critical Care Time Critical Care Time: No Discharge Plan Discharge Clinical Impression: Symptoms of urinary tract infection Patient Disposition: Home Condition: Stable Instructions: Urinary Tract Infection in Women (ED) Additional Instructions: We will send a urine culture to the lab; if the culture identifies an organism that the prescribed antibiotic will not treat, you will receive a phone call from an urgent care staff member and an appropriate antibiotic will be prescribed. -Your symptoms should begin to improve within a day of starting antibiotics. But you should finish all the antibiotic pills you get. Otherwise your infection might come back. -Also recommend: increase water intake. Tylenol/ibuprofen as needed for pain or fever -Follow-up with your primary care provider for urine recheck or seek ER visit if condition worsens with high fever, nausea, vomiting and severe back pain. Patient Language: Uzbek Prescriptions: New sulfamethoxazole-trimethoprim 800-160 mg tablet 1 tablet PO Q12H 5 Days Qty: 10 0RF No Action cetirizine 10 mg tablet albuterol sulfate 90 mcg/actuation HFA aerosol inhaler INHALATION budesonide-formoterol [Symbicort] 160-4.5 mcg/actuation HFA aerosol inhaler INHALATION etonogestrel [Nexplanon] subdermal hydroxyzine HCl 10 mg tablet 10 mg PO DAILY pantoprazole 40 mg tablet,delayed release (DR/EC) 40 mg PO DAILY Vraylar 1.5 mg capsule 1.5 mg PO Q24H escitalopram oxalate 10 mg Tablet 20 mg PO QHS Qty: 30 4RF Follow-up/Referrals: Wilian,Brittni Morales, [facility] [Primary Care Provider] - Stand Alone Forms: Work/School Release IP Time of Disposition: 10:26 "
--- OUTSIDE RECORDS SUMMARY | 2024-08-13 10:23 | XMS_ITS | CONTINUITY OF CARE DOCUMENT ---
Author Name harinder pizano Address Unknown Organization [facility] Address [address] [place] [address] Phone [phone] Care Team Providers Care Lusterer Name Role Phone Dante Weaver DO Unavailable KADY INFANTE, DAVID Gipson Unavailable JORI INFANTE, ADDISON Unavailable [phone] PROBLEMS Condition Status Date Provider Notes Pseudoaneurysm [...] In-person encounter Office Visit Dante Weaver DO [facility] Office Family History Coronary Heart Disease [...] type / Coverage type Lele hollis ID [facility] Medicaid 9 [id number] TREATMENT PLAN Date Name Performer Cardiology :partial nephrectomy to both R & L kidneys Dante Weaver DO Cardiology :from PTSD, served in [place] Dante Weaver DO Cardiology :comment only aDnte Weaver DO HISTORY OF PROCEDURES Procedure Date Procedure Name Provider Procedure Notes S tatus ICM Interrogation, Remote (Prof) Dante Shermancock DO INTERROGATION EVAL REMOTE </30 D CV MNTR SYS completed ICM Interrogation, Remote (Tech) Dante [place] DO INTERROGATION EVAL REMOTE </30 D TECH REVIEW completed ICM Interrogation, Remote (Prof) Dantecorine Shermancock DO INTERROGATION EVAL REMOTE </30 D CV MNTR SYS completed AICD Interrogation, Remote (Tech) Dante [place] DO INTERROGATION REMOTE </90 D ICE CREAM TRUCK DRIVER REVIEW completed AICD Interrogation, Remote (Prof) Dante [place] DO INTERROGATION EVAL REMOTE </90 D 1/2/> LD CVDFB completed ICM Interrogation, Remote (Prof) Dante [place] DO INTERROGATION EVAL REMOTE </30 D CV MNTR SYS completed ICM Interrogation, Remote (Tech) Dante [place] DO INTERROGATION EVAL REMOTE </30 D TECH REVIEW completed ICM Interrogation, Remote (Prof) Dante [place] DO INTERROGATION EVAL REMOTE </30 D CV MNTR SYS completed ICM Interrogation, Remote (Tech) Dante [place] DO INTERROGATION EVAL REMOTE </30 D TECH REVIEW completed SNOMED-CT: [id number] Smoking Cessation Counseling Dante Weaver DO completed SNOMED-CT: [id number] Physical Exam, Performed: Pulse Exam of Foot Dante Weaver DO completed EKG Dante Weaver DO completed SNOMED-CT: [id number] Current Medications Documented Dante Weaver DO completed
== END ==
PROVIDERS: PCP Internal Medicine Nephrology; Visit Provider Internal Medicine Nephrology
DX: R91.8 Other nonspecific abnormal finding of lung field (principal); R05.9 Cough, unspecified
CPT/HCPCS: 71046

== ENCOUNTER 2025-01-23 15:06 | Outpatient (CLI) | payer MEDICARE, SELFPAY ==
--- OUTSIDE RECORDS SUMMARY | 2024-11-23 05:46 | XMS_ITS | Continuity of Care Document ---
Author Organization [facility] Address [address] [place] [address] Phone Care Team Providers Care Insurance Licensing Supervisor Name Role Phone Arnold INFANTE, Andre Unavailable Unavailabl e Allergies, Adverse Reactions, Alerts Substance Reaction Status Criticality codeine Active No Information Medications Medication Instructions Dosage Effective Dates (start - stop) Status Comments pantoprazole 40 mg tablet,delayed release - Active acetaminophen 325 mg tablet TAKE 2 TABLETS BY MOUTH EVERY 6 HOURS NEEDED FOR PAIN. - Active Ventolin HFA 90 mcg/actuation aerosol inhaler - Active alprazolam 1 mg tablet - Act christine oxycodone-acetaminophen 10 mg-325 mg tablet - Active citalopram 20 mg tablet - Ac tive simvastatin 10 mg tablet - Active calcium acetate(phosphate binders) 667 mg capsule - Active allopurinol 100 mg tablet TAKE 1 TABLET BY MOUTH TWICE A DAY. START ONCE ACUTE GOUT RESOLVES - Active amlodipine 5 mg tablet - Act christine fenofibrate 54 mg tablet - Active furosemide 20 mg tablet - Ac tive metoprolol succinate ER 200 mg tablet,extended release 24 hr TAKE 1 TABLET BY MOUTH EVERY DAY - Active ergocalciferol (vitamin D2) 1,250 mcg (50,000 unit) capsule TAKE ONE CAPSULE ORALLY ONCE PER WEEK - Active ondansetron HCl 4 mg tablet Michael-03-2023 - Active carisoprodol 350 mg tablet TAKE 1 TABLET BY MOUTH TWICE A DAY NEEDED - Active lactulose 10 gram/15 mL oral solution - Active calcitriol 0.25 mcg capsule - Active Atrovent HFA 17 mcg/actuation aerosol inhaler - Active Tiadylt ER 120 mg capsule,extended release TAKE 1 CAPSULE BY MOUTH EVERY MORNING - Active lisinopril 40 mg tablet TAKE 1 TABLET BY MOUTH EVERY DAY - Active Procedures Procedure Date CONTRAST, 300/ML, PER ML MOD SED BY OR SUP BY PHYSICIAN INTRO CATH DIALYSIS CIRCUIT Radiation Exposure Documented To Be Coded Cath/angio dialcir w/aplasty Mod sed same phys/qhp 5/>yrs Intro cath dialysis circuit [facility] dialysis seg Mod sed same phys/qhp 5/>yrs CONTRAST, 300/ML, PER ML MOD SED BY OR SUP BY PHYSICIAN INTRO CATH DIALYSIS CIRCUIT [employer] Followed Radiation Exposure Documented To Be Coded Cath/angio dialcir w/aplasty Mod sed same phys/qhp 5/>yrs Intro cath dialysis circuit [facility] dialysis seg Mod sed same phys/qhp 5/>yrs Intro cath dialysis circuit [facility] dialysis seg Mod sed same phys/qhp 5/>yrs CONTRAST, 300/ML, PER ML MOD SED BY OR SUP BY PHYSICIAN INTRO CATH DIALYSIS CIRCUIT Radiation Exposure Documented To Be Coded Cath/angio dialcir w/aplasty Mod sed same phys/qhp 5/>yrs CONTRAST, 300/ML, PER ML INTRO CATH DIALYSIS CIRCUIT Radiation Exposure Documented To Be Coded Intro cath dialysis circuit Intro cath dialysis circuit CONTRAST, 300/ML, PER ML MOD SED BY OR SUP BY PHYSICIAN INTRO CATH DIALYSIS CIRCUIT Radiation Exposure Documented To Be Coded Cath/angio dialcir w/aplasty Mod sed same phys/qhp 5/>yrs Intro cath dialysis circuit [facility] dialysis seg Mod sed same phys/qhp 5/>yrs Intro cath dialysis circuit [facility] dialysis seg Mod sed same phys/qhp 5/>yrs CONTRAST, 300/ML, PER ML MOD SED BY OR SUP BY PHYSICIAN INTRO CATH DIALYSIS CIRCUIT Radiation Exposure Documented To Be Coded Intro cath dialysis circuit Cath/angio dialcir w/aplasty Mod sed same phys/qhp 5/>yrs Advance Directives Directive Yes / No Effective Date File Name No Information Encounters Encounter Description Practice Location Reason(s) For Visit Diagnoses Date Provider Providers Copied on Encounter [facility], [address] [place], [place], [id number], tel:[phone] [facility] No Information 5 Arnold Powell . [address] [place], [place], [id number] , [place]. tel:[phone] [facility], [address] [place] [address], [id number], tel:[phone] [facility] Compression of VeinEnd stage renal disease 5 Arnold Powell . [address] [place], [place], [id number] , [place]. tel:[phone] Referring Provider: Aamir Grover, [address] [facility] [address], [place], [address]. tel:[phone] [facility], [address] [place], [place], [id number], tel:[phone] [facility] End stage renal diseaseCompression of Vein 5 Arnold Powell . [address] [place] [address], [id number] , [place]. tel: [phone] Referring Provider: Aamir Grover, [address], [address]. tel:[phone] [facility], [address] [place] [address], [id number], tel:[phone] [facility] Compression of VeinEnd stage renal diseaseCompression of VeinEnd stage renal disease 5 Barrett Andre . [address] [place] [address], [id number] , [place]. tel: [phone] Referring Provider: Aamir Grover, [address] [address], [place], [address]. tel:[phone] [facility], [address] [place] [address], [id number], tel:[phone] [facility] End stage renal diseaseEnd stage renal diseaseCompression of VeinCompression of Vein 5 Barrett Andre . [address] [place] [address], [id number] , [place]. tel: [phone] Referring Provider: Aamir Grover, [address], [address]. tel:[phone] [facility], [address] [place] [address], [id number], tel:[phone] [facility] End stage renal diseaseCompression of Vein 0 5 Barrett Andre . [address] [place] [address], [id number] , [place]. tel: [phone] Referring Provider: Aamir Grover, [address], [address]. tel:[phone] [facility], [address] [place] [address], [id number], tel:[phone] [facility] Compression of VeinEnd stage renal disease Jun-0 5 Barrett Andre . [address] [place] [address], [id number] , [place]. tel: [phone] Referring Provider: Aamir Grover, [address] [facility] [address] [facility], [place], [address]. tel:[phone] [facility], [address] [place], [place], [id number], [place] tel:[phone] [facility] No Information Apr-0 9- 5 Barrett Andre . [address] [place], [place], [id number] , [place]. tel: [phone] [facility], [address] [place], [place], [id number], [place] tel:[phone] [facility] End stage renal disease Jan-0 - 4 Bhoot Veeral. [address] [facility], [place], [address], [place]. tel: [phone] Referring Provider: Aamir Grover, [address] [place] [address], [place], [address]. tel:[phone] [facility], [address] [place], [place], [id number], [place] tel:[phone] [facility] End stage renal disease Jan-0 4 Bhoot Veeral. [address] [place], [address], [place]. tel: [phone] Referring Provider: Aamir Grover, [address] [place] [address], [place], [address]. tel:[phone] [facility], [address] [place] [address], [id number], [place] tel:[phone] [facility] No Information 0 4 Bhoot Veeral. [address] [place], [address], [place]. tel: [phone] [facility], [address] [place] [address], [id number], [place] tel:[phone] [facility] Compression of VeinEnd stage renal disease May-2 5- 4 Huitron Rachel. [address] [place], [place], [id number] , [place]. tel: [phone] Referring Provider: Aamir Grover, [address] [facility] [address], [place], [address]. tel:[phone] [facility], [address] [place] [address], [id number], tel:[phone] [facility] Compression of VeinEnd stage renal disease 4 Huitron Rachel. [address] [place] [address], [id number] , . tel:[phone] Referring Provider: Aamir Grover, [address] [facility] [address] [facility], [place], [address]. tel:[phone] [facility], [address] [place] [address], [id number], tel:[phone] [facility] End stage renal diseaseCompression of Vein 3 Huitron Rachel. [address] [place] [address], [id number] , . tel:[phone] Referring Provider: Aamir Grover, [address] [place] [address], [place], [address]. tel:[phone] [facility], [address] [place] [address], [id number], tel:[phone] [facility] Compression of VeinEnd stage renal disease 3 Huitron Rachel. [address] [place] [address], [id number] , . tel:[phone] Referring Provider: Aamir Grover, [address] [place] [address], [address]. tel:[phone] [facility], [address] [place] [address], [id number], tel:[phone] [facility] No Information 3 Huitron Rachel. [address] [place] [address], [id number] , . tel:[phone] As per patient privacy policy some of the clinical information may not be visible. Family History Family Member Type Diagnosis Age At Onset No Information Payers Payer name Insurance type Covered alliance party ID Authorauroraa seamus(s) Medicare [place] [id number] Social History Type Description Quantity Date Captured Comments Sex Male Smoking Status No Information Sexual Orientation Straight or heterosexual Gender Identity Male Chief Complaint And Reason For Visit No Information Reason For Referral Reason For Referral No Information Plan Of Treatment Date Type Action Status Appointment YOU MCLEAN // 3 MAXI Green F/U BOOKED Future Order: Radiology Order Up per Body Flouroscopy ([id number]), Ordered on: Ordered Future Order: Radiology Order Up per Body Flouroscopy ([id number]), Ordered on: Ordered Future Order: Radiology Order Up per Body Flouroscopy ([id number]), Ordered on: Ordered Future Order: Radiology Order Up per Body Flouroscopy ([id number]), Ordered on: Ordered Future Order: Radiology Order Up per Body Flouroscopy ([id number]), Ordered on: Ordered Future Order: Radiology Order Up per Body Flouroscopy ([id number]), Ordered on: Ordered History Of Present Illness Encounter Date Complaint History Of Prese nt Illness No Information Functional Status Date Functional Assessmen t No Information Instructions Date Instruction Additional Infor mation No Information Assessments Type Assessment Date No Information Patient Care Teams Name Effective Dates (start - stop) Status Members No Information
--- NOTE | ~2025-01-23 | CT_ITS ---
CT lung screening INDICATION: Tobacco use. COMPARISON: 01/23/2025. TECHNIQUE: CT examination of the entire thorax without contrast was performed using low dose technique. Thin section axial, sagittal and coronal images were included to increase sensitivity for small lung nodules. FINDINGS: PULMONARY NODULES: Soft tissue nodule or area of atelectasis within the left lung base measures 1.5 x 3.9 cm. More posteriorly is a 1.9 cm nodule. These are new since previous study. OTHER PULMONARY FINDINGS: There is a small left pleural effusion. No emphysematous changes are present. Enlarged mediastinal lymph nodes measures 2.4 x 1.5 cm, previously measured 2 x 1.2 centimeter.. Normal heart size. There are coronary artery calcification in this limited nondedicated CT. UPPER ABDOMEN AND PERIPHERAL SOFT TISSUE: Limited views of the upper abdomen and peripheral soft tissue demonstrated no abnormalities. OSSEOUS STRUCTURES: Bone window shows no aggressive blastic or lytic lesions. IMPRESSION: 1. Lung-RADS category 3: Probably benign findings; includes nodules with a low likelihood of becoming a clinically active cancer. Recommendations: Short-term follow-up CT in 6 months is recommended. 2. No emphysematous changes are present. All CT scans at this facility are performed using low dose modulation techniques as appropriate to perform exam including the following: automated exposure control; use of iterative reconstruction technique; adjustment of the mA and/or kV according to patient size (this includes techniques or standardized protocols for targeted exams where dose is matched to indication/reason for exam). Reviewed, dictated and finalized at location S. IMPRESSION: 1. Lung-RADS category 3: Probably benign findings; includes nodules with a low likelihood of becoming a clinically active cancer. Recommendations: Short-term follow-up CT in 6 months is recommended. 2. No emphysematous changes are present. All CT scans at this facility are performed using low dose modulation techniqu es as appropriate to perform exam including the following: automated exposure c ontrol; use of iterative reconstruction technique; adjustment of the mA and/or kV according to patient size (this includes techniques or standardized protocol s for targeted exams where dose is matched to indication/reason for exam).
--- OUTSIDE RECORDS SUMMARY | 2025-01-23 17:12 | XMS_ITS | Clinical Summary ---
Author Organization [facility] Address [address] [place] [address] Care Team Providers Care Staff Editor Name Role Phone Morgan Mercado MD Primary Care Provider [phone] Source Comments [facility],non-general [facility] Affiliates and Associated Physician Practices is amultiple site organization consisting of ambulatory clinics and hospital sitesin [place], [place], [place] and [place]. This disclosure is being madepursuant to the Care Everywhere program and may not contain all information available regarding this patient. 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 Gender Identity Not on file Sexual [...] SCREENING 1950 LIPID TESTING 1950 MEDICARE AWV 12 MONTHS 1950 HEPATITIS C SCREENING 01/31/1969 DTAP/TDAP/TD VACCINES (1 - Tdap) 1970 ZOSTER VACCINE (1 of 2) 2001 PNEUMOCOCCAL VACCINE 50+ (2 of 2 - PCV) 07/14/2013 07/14/2012 AAA SCREENING 02/06/2016 DEPRESSION SCREENING 03/28/2024 COVID-19 VACCINE (1 - 2023-2 5 season) 2024 INFLUENZA VACCINE (#1) 2024 Respiratory Syncytial Virus (RSV) Vaccine Pt: [...] Insurance MEDICARE MEDICAID - OUT OF [place] [address] MEDICARE Care Teams Staff Editor Relationship Specialty Start Date End Date Morgan Mercado MD [address] [address] PCP - General 03/30/12
--- OUTSIDE RECORDS SUMMARY | 2025-01-23 17:12 | XMS_ITS | Clinical Summary ---
Author Organization 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 AVOID DRIVING OR OPERATE MACHINES. 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 Gender Identity Not on file Sexual Orientation Not on file Last Filed Vital Signs Vital Sign Reading Time Taken Comments Blood Pressure 138/100 03/08/2018 10:44 AM MID LEVEL DEVELOPER Pulse 82 03/08/2018 10:35 AM MID LEVEL DEVELOPER Temperature 36.5 C (97.7 F) 03/08/2018 10:35 AM MID LEVEL DEVELOPER Respiratory Rate 18 03/08/2018 10:35 AM MID LEVEL DEVELOPER Oxygen Saturation 96% 03/08/2018 10:35 AM MID LEVEL DEVELOPER Inhaled Oxygen Concentration - - Weight 110.7 kg (244 lb) 03/08/2018 10:35 AM MID LEVEL DEVELOPER Height 182.9 cm (6') 03/08/2018 10:35 AM MID LEVEL DEVELOPER Body Mass Index 33.09 03/08/2018 10:35 AM MID LEVEL DEVELOPER Plan of Treatment Health Maintenance Due Date Last Done Comments DIABETES ANNUAL FOOT EXAM 1969 DIABETES MICROALBUMIN ANNUAL SCREEN 1969 LDL CHOLESTEROL ANNUAL 1969 DTAP/TDAP/TD VACCINES (1 - Tdap) 1970 FIT-DNA Q 3 years 02/06/1996 FIT/FOBT Q 1 year 02/06/1996 Flex Sig/CT Colonography Q 5 years 02/06/1996 RSV VACCINE (60+ or ) (1 - Risk 50-74 years 1-dose series) 2001 ZOSTER VACCINE (1 of 2) 2001 DIABETES ANNUAL RETINAL EXAM 11/09/2018 11/09/2017 DIABETES HBA1C Q 6 MONTHS 06/21/20192018, 11/15/2018, 08/23/2018, Additional history exists INFLUENZA VACCINE (#1) 2024 COLORECTAL SCREENING 04/17/2028 04/17/2018, 04/17/2018, 04/17/2018 Colorectal Cancer Screening 04/17/2028 PNEUMOCOCCAL VACCINE 50+ YEARS Completed 01/10/2017 , 07/14/2012 Insurance MEDICARE PART A AND B Care Teams Cable Swager Relationship Specialty Start Date End Date Morgan Mercado MD [address] [place] [phone] PCP - General Family Practice 11/02/16
--- OUTSIDE RECORDS SUMMARY | 2025-01-23 17:12 | XMS_ITS | Encounter Summary ---
Author Organization [facility] Address [address] [facility] [address] [place] [address] Phone Care Team Providers Care Blintze Roller Name Role Phone Morgan Mercado MD Primary Care Provider Unavailabl e Encounter Details Date Type Department Care Team (Late st Contact Info) Description 01/22/2025 Orders Only [facility]. [address] [facility] [address] [place] [address] Aamir Thakkar MD [address] [facility] [address] [place] [address] Social History Tobacco Use Types Packs/Day Years [...] Priority Date/Time Associated Diagnosis Comments HEMATOLOGY Routine 01/22/2025 documented in this encounter Results * (ABNORMAL) HEMATOLOGY (01/22/2025) Hemoglobin 11.4(L) 14.0 - 18.0 g/dL [facility] Hemoglobin x 3 34.2(L) 42.0 - 54.0 % [facility] 01/22/2025 01/23/2025 12: 59 PM CDT Narrative [facility] - 01/23/2025 Unless otherwise specified, test(s) performed at: [facility], [address] [place], [place] [id number] BUNDLE SORTER: Regino Arevalo M.D. For any questions, please call customer service at FREQUENCY:OTHER Resulting Agency Comment Specimen source: Blood Aamir Thakkar MD LAB BLOOD ORDERABLES Final Res ult [facility] See order comments or contact performing lab Unknown, [place] documented in this encounter Visit Diagnoses Not on filedocumented in this encounter Care Teams Blintze Roller Relationship Specialty Start Date End Date Morgan Mercado MD [address] [facility] [address] PCP - General Family Medicine 05/31/22 documented as of this encounter
--- OUTSIDE RECORDS SUMMARY | 2025-01-23 17:12 | XMS_ITS | Encounter Summary ---
Author Organization [facility] Address [address] [place] [address] Phone Care Team Providers Care Hydroponics Worker Name Role Phone Morgan Mercado Primary Care Provider [phone] Mac Ervin MD Unavailable Encounter Details Date Type Department Care Team (Late st Contact Info) Description 10/15/2021 Telephone [facility] [address] [place] [address] Mac Ervin MD [address] [place] [address] Social History Tobacco Use Types [...] up. Son will call back to reschedule inpatient care manager rn appt. documented in this encounter Plan of Treatment Not on file documented as of this encounter Visit Diagnoses Not on filedocumented in this encounter Care Teams Hydroponics Worker Relationship Specialty Start Date End Date Morgan Mercado [address] [place] [address] PCP - General Family Medicine 05/16/15 Mac Ervin MD [address] [place] [id number] Consulting Physician Oncology 09/21/21 documented as of this encounter
--- OUTSIDE RECORDS SUMMARY | 2025-01-23 17:12 | XMS_ITS ---
Author Organization [facility] [address] Address [address] [place] [address] Care Team Providers Care Outpatient Services Director Name Role Phone Morgan Mercado MD Primary Care Provider [phone] Brisa Lowe MD Unavailable [phone] Aamir Thakkar MD Unavailable [phone] Rodolfo Berman MD Unavailable [phone] Dialysis Access Sites Type Status Location Placement Date Removal Da te AV fistula Active Left Upper Arm - Anterior 09/02/2022 Procedures Procedure Name Priority Date/Time Associated Diagnosis Comments DEVICE CHECK - REMOTE Routine 11/20/2024 11:15 AM CDT Bradycardia Automatic implantable cardioverter-defibril lator in situ Chronic combined systolic and diastolic CHF (congestive heart failure) (HCC) Dilated cardiomyopathy (HCC) EGFR Routine 05/29/2024 4:57 AM LIP AND GATE BUILDER HEMOGLOBIN A1C Routine 05/04/2024 5:35 [address]DER [address] ABDOMEN PELVIS WO CONTRAST Schedule Routine, Read Routine (OP Routine) 03/12/2024 4:55 PM LIP AND GATE BUILDER Abdominal pain, unspecified abdominal location POCT LIPID PANEL Routine 12/12/2023 11:2 2 AM CDT Hypercholesterolemia HEPATITIS PANEL, ACUTE Routine [...] mcg total) by mouth daily 2 Active carisoprodoL (SOMA) 350 mg tabletIndications :Muscle [...] mouth daily 60 tablet 11 3 Active naloxone 0.4 mg/mL syringe Infuse 1 mL into a venous catheter 2 Active calcifediol (Rayaldee) 30 mcg capsule,extended release 24 hr 3 (three) times a week Active calcium acetate,phosphat bind, (PHOSLO) 667 mg capsule Take 1 capsule (667 mg total) by mouth 3 (three) times a day with meals 5 04/04/19 26 Active allopurinoL (ZYLOPRIM) 100 mg tablet Take 1 tablet (100 mg total) by mouth 3 (three) times a week 12 tablet 1 5 05/08/[address] (PROTONIX) 40 mg EC tabletIndications :Mucositis Prophylaxis Take 1 tablet (40 mg total) by mouth daily 30 tablet 1 5 05/07/19 26 Active guaiFENesin (ROBITUSSIN) syrup 100 mg/5 mL Take 10 mL (200 mg total) by mouth 4 (four) times a day as needed for cough 120 mL 5 Active acetaminophen (TYLENOL) 325 mg tablet Take 2 tablets (650 mg total) by mouth every 6 (six) hours as needed for pain 30 tablet 5 Active metoprolol XL (TOPROL-XL) 200 mg extended release tablet TAKE 1 TABLET BY MOUTH EVERY DAY 90 tablet 1 5 Active Active Problems Problem Noted Date Diagnosed [...] an d diastolic CHF (congestive heart failure) ([facility]) 09/01/2015 Overview (07/02/2016): Chronic systolic heart [...] kidney disease) stage 4, GFR 15-29 ml/min ([facility]) 02/19/2013 Overview (07/02/2016): CKD (chronic kidney [...] Date Smoking Tobacco: Every Day Cigarettes 0.3 57.8 Started: 1966 Passive Smoke Exposure: Past Smokeless Tobacco: Never Tobacco Cessation:Ready to Q uit: Not Asked; Counseling Given: Not Answered Comments:At heaviest smoking, smoked 1 ppd, last cigarette 08/11/2022 approx 1900 Last smoked yesterday 6-7 1800 Alcohol Use Standard Drinks/Week Comments No 0 (1 standard drink = 0.6 oz pur e alcohol) [facility] Utilities Answer Date Recorded In the past 12 months has [employer], gas, oil, or water Drip In threatened to shut off services in your home? No 05/28/2024 Social Connection and Isolation Panel Answer Date Recorded In a typical week, how many times do you talk on the phone with family, friends, or neighbors? More than three times a week 05/28/2024 How often do you get togethe r with friends or relatives? Once a week 05/28/2024 How often do you attend chur ch or latter day services? Never 05/28/2024 Do you belong to any clubs o r organizations such as adventist groups, unions, fraternal or athletic groups, or [...] place to sleep or slept in a long term (including now)? No 09/29/2022 Housing Stability Vital Sign Answer Edmnod e Recorded In the last 12 months, was t here a time when you were not able to pay the mortgage or rent on time? No 05/28/2024 In the past 12 months, how m any times have you moved where you were living? 0 05/28/2024 At [facility] the [facility], were you homeless or living in a long term (including now)? No 05/28/2024 Personal Safety Answer [...] on file Legal Sex Male 10:59 AM LIP AND GATE BUILDER Gender Identity Not on file Sexual Orientation Not on file Last Filed Vital Signs Vital Sign Reading Time Taken Comments Blood Pressure 128/74 05/29/2024 3:00 PM LIP AND GATE BUILDER Pulse 77 05/29/2024 3:00 PM LIP AND GATE BUILDER Temperature 36.2 C (97.1 F) 05/29/2024 3:00 PM LIP AND GATE BUILDER Respiratory Rate 18 05/29/2024 3:00 PM LIP AND GATE BUILDER Oxygen Saturation 92% 05/29/2024 3:00 PM LIP AND GATE BUILDER Inhaled Oxygen Concentration - - Weight 91.7 kg (202 lb 2.6 oz) 05/29/2024 12:35 PM LIP AND GATE BUILDER Height 182.9 cm (6') 05/26/2024 6:40 PM LIP AND GATE BUILDER Body Mass Index 27.42 05/26/2024 6:40 PM LIP AND GATE BUILDER Results * DEVICE CHECK - REMOTE (11/20/2024 11:15 AM CDT) Anatomical Region Laterality Modality Other Narrative 11/29/2024 8:03 PM CDT [facility] Single ICD Dx; NICM, Afib. DOI 03/31/2015. [employer] Remote Home Monitoring. Routine VVI ICD remote. Normal device function. Battery function-2.93V, MOS2 4% remaining battery life to ALANIS. Charge time-15.8 seconds. Appropriate lead measurements noted. Presenting rhythm-VS, irregular (Afib). SURGICAL ASSIST-0%. No ventricular tachy arrhythmias noted. Medications; ASA 81 mg, Toprol XL, Norvasc, Zocor. No AC d/t perinephric hematoma. See scanned report. Office device f/u is due. Multiple missed office device check appointments. Letters mailed to patient. [employer] remote f/u 02/19/2025. Donna Parker, RN Sana Phan MD [facility] C[facility] SERVICES PROCEDURES Final Result * (ABNORMAL) eGFR (05/29/2024 4:57 AM LIP AND GATE BUILDER) eGFR 9(L) >=60 mL/min/1. 73 m2 Comment: [...] last reviewed 2021. Blood 05/29/2024 4:57 AM LIP AND GATE BUILDER 05/29/2024 5:45 AM LIP AND GATE BUILDER us Ilya Willard MD LAB BLOOD ORDERABLES Final Resul t Performing Organization Address City/[facility]/ZIP Co de Phone Number [facility] ([place]) [address] [facility] [employer] [address] * (ABNORMAL) Hemoglobin A1c (05/04/2024 5:35 AM LIP AND GATE BUILDER) Hgb A1C 5.9(H) 4.0 - 5.6 % Estimated Average Glucose 123 mg/dL [facility]) Comment: The ADA recommends reporting an estimated Average Glucose (eAG) with all Hemoglobin A1c results using the equation derived from a study of 507 normal and diabetic adults. Minority populations were underrepresented and children were not included. (Diabetes Care 31:1599-6226, 2008). The eAG is not equivalent to a fasting glucose. Blood 05/04/2024 5:35 AM LIP AND GATE BUILDER 05/04/2024 5:54 AM LIP AND GATE BUILDER us Keerthi Carreon MD LAB BLOOD ORDERABLES Fi nal Result [facility]) 1 [facility] [employer] [place] [address] * CT Abdomen Pelvis WO Contrast (03/12/2024 4:55 PM LIP AND GATE BUILDER) Anatomical Region Laterality Modality Body N/A Computed Tomogra phy 03/12/2024 5:12 PM LIP AND GATE BUILDER Impressions 03/12/2024 5:12 PM LIP AND GATE BUILDER 1. MILD SUBSEGMENTAL ATELECTASIS IN LEFT LOWER LOBE. 2. PLEURAL EFFUSIONS HAVE RESOLVED. 3. BILATERAL PERINEPHRIC FAT STRANDING IS UNCHANGED. 4. AORTIC ATHEROSCLEROSIS. 5. APPENDECTOMY. 6. UNCOMPLICATED DIVERTICULAR DISEASE IN THE SIGMOID COLON. Electronically signed by: Akbar Garg M.D. Narrative 03/12/2024 5:12 PM LIP AND GATE BUILDER EXAMINATION: CT ABDOMEN PELVIS WO CONTRAST DATE: [...] normal. No significant bony abnormality is seen. Procedure Note [...] CARE TEST O RDERABLES Final Result * Hepatitis panel, acute (11/16/2022 11:25 AM CDT) Hep A IgM Nonreactive Nonreactive [facility] ([place]) Comment: Interpretive Data: If Hep A IgM Ab is reported as Equivocal, a new sample should be drawn in two weeks for testing. Current interpretive data was last revised on 19. Testing performed by: [address] [address] Hep B core IgM Nonreactive Nonreactive [facility] ([place]) Comment: Interpretive Data If HepB Core IgM Ab is reported as Equivocal, a new sample should be drawn in two weeks for testing. Current interpretive data was last revised on 19. Testing performed by: [address] [address] Hep C Ab Nonreactive Nonreactive [facility] ([place]) Comment: Interpretive Data Nonreactive: Antibodies to HCV not detected. Does NOT exclude the possibility of recent exposure to HCV. Equivocal: Equivocal for HCV antibodies. Supplemental molecular testing will be automatically performed to determine infection status in accordance with current CDC screening recommendations. Reactive: Positive for HCV antibodies. This may represent current or past HCV infection. Supplemental molecular testing will be automatically performed to determine current infection status in accordance with current CDC screening recommendations. Interpretive data was last revised on 2019. Testing performed by: [facility], [address] [place] [address]., [id number] HepBsAg Nonreactive Nonreactive [facility] ([place]) Comment:Testing performed by : [facility], [address] [place] [address]., [id number] Blood 11/16/2022 11:2 5 AM CDT 11/16/2022 3:12 PM CDT us Aamir Thakkar MD LAB MICROBIOLOGY - GENERAL OR DERABLES Final Result [facility] ([place]) 1 [facility] Department [place] [address] from Last 3 Months or Most Recently Relevant to Health Maintenance
--- OUTSIDE RECORDS SUMMARY | 2025-01-23 17:12 | XMS_ITS | Clinical Summary ---
Author Organization [facility] Address [address] [place] [address] Phone Care Team Providers Care Bladder Trimmer Name Role Phone Rogeilo Morgan Primary Care Provider [phone] Mac Ervin MD Unavailable [phone] Allergies Active Allergy Reactions Criticality Noted Date [...] SHALINIE, ADEEL, SAT Active ergocalciferol (VITAMIN D) 22233 UNIT CapsuleIndicatio ns:SATURDAYS Take 50,000 Units by [...] Virus (HCV) Screening 1950 TdaP Immunization 1950 Cologuard 02/06/1996 Colonoscopy 02/06/1996 Colorectal Cancer Screening 02/06/1996 Immunochemical Fecal Occult Blood 02/06/1996 Zoster Immunization (1 of 2) 2001 Medicare Initial AWV [id number] 01/26/2017 Pneumococcal Immunization (50+ years) (2 of 2 - PCV20 or PCV21) 12/13/2017 12/13/2016 Influenza Immunization (#1) 11/26/202412/26, 12/13/2016, 12/18/2015, Additional history exists SARS-COV-2 Immunization ( season) 2024 04/02/2021, 07/03/2020 Respiratory Syncytial Virus (RSV) Immunization (Adult) (1 - 1-dose 75+ series) 2026 Pneumococcal Immunization Combined Discontinued 12/13/2016 Hepatitis B Immunization Aged Out No longer eligible based on patient's age to complete this topic Human Papillomavirus (HPV) Immunization Aged Out No longer eligible based on patient's age to complete this topic Meningococcal Immunization (ACWY) Aged Out No longer eligible based on patient's age to complete this topic Rotavirus Immunization Aged Out No lo nger eligible based on patient's age to complete this topic Insurance MEDICARE MEDICARE ADMIN VETERANS ADMIN Advance Directives * Full Code (Latest Code Status on File) Date Activated Date Inactivated Comments 08/10/2015 8:07 PM 08/12/2015 12:44 PM CPR-Full Tr eatment: FULL ARREST: Attempt Resuscitation/CPR wit intubation and mechanical ventilation. PRE-ARREST: Use entire range of life support measures to stabilize the patient. Care Teams Bladder Trimmer Relationship Specialty Start Date End Date Morgan Mercado [address] [place] [address] PCP - General Family Medicine 05/16/15 Mac Ervin MD [address] [place] [id number] Consulting Physician Oncology 09/21/21
--- OUTSIDE RECORDS SUMMARY | 2025-01-23 17:13 | XMS_ITS | Encounter Summary ---
Author Organization [facility] Address [address] [place] [address] Care Team Providers Care Tapper Shank Name Role Phone Morgan Mercado MD Primary Care Provider [phone] Encounter Details Date Type Department Care Team (Latest Contact Info) Description 02/08/2006 Inpatient Historical HIS PATIENT IN A BED Warren Renner MD [address] [place] [address] Other Specified Rehabilitation Procedure (Primary [...] on file Legal Sex Male 4:23 AM [employer] AG[employer] Gender Identity Not on file Sexual Orientation Not on file documented as of this encounter Plan of Treatment Not on file documented as of this encounter Procedures Procedure Name Priority Date/Time Associated Diagnosis Comments CKMB W/REFLEX CK Routine 03/01/2006 9:15 PM [employer] AGENT TROPONIN (W/REFLEX CKMB/CK) Routine 03/01/2006 9:15 PM [employer] AGENT CKMB W/REFLEX CK Routine 03/01/2006 8:00 PM [employer] AGENT TROPONIN (W/REFLEX CKMB/CK) Routine 03/01/2006 8:00 PM CIA AGENT CBC WITH DIFFERENTIAL Routine 03/01/2006 12:00 PM CIA AGENT CBC WITH DIFFERENTIAL Routine 03/01/2006 12:00 PM [employer] AGENT CBC WITH DIFFERENTIAL Routine 03/01/2006 12:00 PM CIA AGENT PHOSPHORUS Routine 03/01/2006 7:20 AM CIA AGENT ALBUMIN LEVEL Routine 03/01/2006 7:20 AM CIA AGENT BASIC METABOLIC PANEL Routine 03/01/2006 7:20 AM [employer] AGENT OSMOLALITY, URINE Routine 02/28/2006 11: 36 PM [employer] AGENT CREATININE, RANDOM URINE Routine 02/28/2006 11:36 PM [employer] AGENT EOSINOPHIL SMEAR Routine 02/28/2006 11:3 6 PM [employer] AGENT URINALYSIS W/REFLEX MICROSCOPIC Routine 02/28/2006 11:15 PM CIA AGENT BASIC METABOLIC PANEL Routine 02/28/2006 5:37 AM CIA AGENT BASIC METABOLIC PANEL Routine 02/27/2006 7:10 AM CIA AGENT CREATININE, 24 HR URINE Routine 02/26/2006 1:34 PM CIA AGENT BASIC METABOLIC PANEL Routine 02/26/2006 7:35 AM CIA AGENT BASIC METABOLIC PANEL Routine 02/25/2006 5:00 AM CIA AGENT POC GLUCOSE Routine 02/24/2006 8:56 PM CIA AGENT BASIC METABOLIC PANEL Routine 02/23/2006 5:24 AM CIA AGENT POC GLUCOSE Routine 02/22/2006 9:06 PM CIA AGENT POC GLUCOSE Routine 02/22/2006 4:42 PM CIA AGENT POC GLUCOSE Routine 02/22/2006 11:40 AM CIA AGENT CBC WITH DIFFERENTIAL Routine 02/22/2006 5:20 AM CIA AGENT CBC WITH DIFFERENTIAL Routine 02/22/2006 5:20 AM CIA AGENT BASIC METABOLIC PANEL Routine 02/22/2006 5:20 AM CIA AGENT POC GLUCOSE Routine 02/22/2006 5:09 AM CIA AGENT POC GLUCOSE Routine 02/21/2006 8:48 PM CIA AGENT POC GLUCOSE Routine 02/21/2006 4:29 PM CIA AGENT POC GLUCOSE Routine 02/21/2006 11:34 AM CIA AGENT POC GLUCOSE Routine 02/21/2006 6:47 AM CIA AGENT BASIC METABOLIC PANEL Routine 02/21/2006 4:20 AM CIA AGENT POC GLUCOSE Routine 02/20/2006 8:35 PM CIA AGENT POC GLUCOSE Routine 02/20/2006 3:52 PM CIA AGENT POC GLUCOSE Routine 02/20/2006 11:02 AM CIA AGENT BASIC METABOLIC PANEL Routine 02/20/2006 7:00 AM CIA AGENT POC GLUCOSE Routine 02/20/2006 5:39 AM CIA AGENT POC GLUCOSE Routine 02/19/2006 9:24 PM CIA AGENT POC GLUCOSE Routine 02/19/2006 4:03 PM CIA AGENT POC GLUCOSE Routine 02/19/2006 11:01 AM CIA AGENT CBC WITH DIFFERENTIAL Routine 02/19/2006 7:35 AM CIA AGENT CBC WITH DIFFERENTIAL Routine 02/19/2006 7:35 AM CIA AGENT BASIC METABOLIC PANEL Routine 02/19/2006 7:35 AM CIA AGENT POC GLUCOSE Routine 02/19/2006 6:03 AM CIA AGENT POC GLUCOSE Routine 02/18/2006 8:46 PM CIA AGENT POC GLUCOSE Routine 02/18/2006 4:05 PM CIA AGENT POC GLUCOSE Routine 02/18/2006 11:37 AM CIA AGENT BASIC METABOLIC PANEL Routine 02/18/2006 5:50 AM CIA AGENT POC GLUCOSE Routine 02/18/2006 5:02 AM CIA AGENT POC GLUCOSE Routine 02/17/2006 9:12 PM CIA AGENT POC GLUCOSE Routine 02/17/2006 4:04 PM CIA AGENT POC GLUCOSE Routine 02/17/2006 11:26 AM CIA AGENT POC GLUCOSE Routine 02/17/2006 5:23 AM CIA AGENT BASIC METABOLIC PANEL Routine 02/17/2006 5:00 AM CIA AGENT POC GLUCOSE Routine 02/16/2006 10:48 PM CIA AGENT POC GLUCOSE Routine 02/16/2006 4:32 PM CIA AGENT BASIC METABOLIC PANEL Routine 02/16/2006 12:03 PM CIA AGENT POC GLUCOSE Routine 02/16/2006 11:45 AM CIA AGENT POC GLUCOSE Routine 02/16/2006 8:06 AM CIA AGENT VANCOMYCIN LEVEL RANDOM Routine 02/16/2006 5:50 AM CIA AGENT POC GLUCOSE Routine 02/15/2006 9:10 PM CIA AGENT POC GLUCOSE Routine 02/15/2006 3:52 PM CIA AGENT POC GLUCOSE Routine 02/15/2006 11:43 AM CIA AGENT BASIC METABOLIC PANEL Routine 02/15/2006 6:45 AM CIA AGENT POC GLUCOSE Routine 02/15/2006 5:06 AM CIA AGENT POC GLUCOSE Routine 02/14/2006 9:46 PM CIA AGENT POC GLUCOSE Routine 02/14/2006 4:15 PM CIA AGENT URINALYSIS W/REFLEX MICROSCOPIC Routine 02/14/2006 12:52 PM CIA AGENT POC GLUCOSE Routine 02/14/2006 11:38 AM CIA AGENT POC GLUCOSE Routine 02/14/2006 6:35 AM CIA AGENT BASIC METABOLIC PANEL Routine 02/14/2006 5:20 AM CIA AGENT POC GLUCOSE Routine 02/13/2006 8:47 PM CIA AGENT POC GLUCOSE Routine 02/13/2006 5:57 PM CIA AGENT CBC WITH DIFFERENTIAL Routine 02/13/2006 1:05 PM CIA AGENT CBC WITH DIFFERENTIAL Routine 02/13/2006 1:05 PM CIA AGENT VANCOMYCIN LEVEL RANDOM Routine 02/13/2006 1:05 PM CIA AGENT POC GLUCOSE Routine 02/13/2006 11:25 AM CIA AGENT PHOSPHORUS Routine 02/13/2006 8:35 AM CIA AGENT ALBUMIN LEVEL Routine 02/13/2006 8:35 AM CIA AGENT BASIC METABOLIC PANEL Routine 02/13/2006 8:35 AM CIA AGENT POC GLUCOSE Routine 02/13/2006 5:25 AM CIA AGENT POC GLUCOSE Routine 02/12/2006 8:41 PM CIA AGENT POC GLUCOSE Routine 02/12/2006 5:38 PM CIA AGENT POC GLUCOSE Routine 02/12/2006 11:29 AM CIA AGENT CBC WITH DIFFERENTIAL Routine 02/12/2006 7:40 AM CIA AGENT CBC WITH DIFFERENTIAL Routine 02/12/2006 7:40 AM CIA AGENT BASIC METABOLIC PANEL Routine 02/12/2006 7:40 AM CIA AGENT POC GLUCOSE Routine 02/12/2006 6:37 AM CIA AGENT POC GLUCOSE Routine 02/11/2006 8:33 PM CIA AGENT CBC WITH DIFFERENTIAL Routine 02/11/2006 1:10 PM CIA AGENT CBC WITH DIFFERENTIAL Routine 02/11/2006 1:10 PM CIA AGENT PHOSPHORUS Routine 02/11/2006 1:10 PM CIA AGENT ALBUMIN LEVEL Routine 02/11/2006 1:10 PM CIA AGENT VANCOMYCIN LEVEL RANDOM Routine 02/11/2006 1:10 PM CIA AGENT BASIC METABOLIC PANEL Routine 02/11/2006 1:10 PM CIA AGENT POC GLUCOSE Routine 02/11/2006 11:27 AM CIA AGENT POC GLUCOSE Routine 02/11/2006 5:24 AM CIA AGENT POC GLUCOSE Routine 02/10/2006 9:27 PM CIA AGENT POC GLUCOSE Routine 02/10/2006 5:31 PM CIA AGENT POC GLUCOSE Routine 02/10/2006 11:53 AM CIA AGENT POC GLUCOSE Routine 02/10/2006 5:14 AM CIA AGENT POC GLUCOSE Routine 02/09/2006 8:42 PM CIA AGENT POC GLUCOSE Routine 02/09/2006 5:53 PM CIA AGENT POC GLUCOSE Routine 02/09/2006 11:58 AM CIA AGENT CBC WITH DIFFERENTIAL Routine 02/09/2006 5:43 AM CIA AGENT CBC WITH DIFFERENTIAL Routine 02/09/2006 5:43 AM CIA AGENT COMPREHENSIVE METABOLIC PANEL Routine 02/09/2006 5:43 AM CIA AGENT POC GLUCOSE Routine 02/09/2006 5:21 AM CIA AGENT URINALYSIS W/REFLEX MICROSCOPIC Routine 02/09/2006 12:34 AM CIA AGENT POC GLUCOSE Routine 02/08/2006 9:15 PM CIA AGENT documented in this encounter Results * CKMB W/REFLEX CK (03/01/2006 9:15 PM CIA AGENT) CKMB 3.2 <=6.7 ng/mL INTERFACE SYSTEM CKMB INTERP Negative INTERFAC E SYSTEM 03/01/2006 9:15 PM CIA AGENT us Warren Renner MD CHEMISTRY ORDERABLES Final Resu lt Performing Organization Address [facility] Co de Phone Number INTERFACE SYSTEM Refer to clinic/hospital department * (ABNORMAL) TROPONIN (W/REFLEX CKMB/CK) (03/01/2006 9:15 PM CIA AGENT) TROPONIN T 0.22(AA) <=0.03 ng/mL INTERFACE SYSTEM Comment:Persistent abnormal result TROPONIN T INTERP See Below INTERFACE SYSTEM Comment:Elevated Troponin-T, Consistent with Myocardial Injury 03/01/2006 9:15 PM [employer] AGENT us Warren Renner MD CHEMISTRY ORDERABLES Final Resu lt Performing Organization Address [facility] Phone Number INTERFACE SYSTEM Refer to clinic/hospital department * CKMB W/REFLEX CK (03/01/2006 8:00 PM CIA AGENT) CKMB 3.5 <=6.7 ng/mL INTERFACE SYSTEM CKMB INTERP Negative INTERFAC E SYSTEM 03/01/2006 8:00 PM CIA AGENT us Warren Renner MD CHEMISTRY ORDERABLES Final Resu lt Performing Organization Address [facility] Phone Number INTERFACE SYSTEM Refer to clinic/hospital department * (ABNORMAL) TROPONIN (W/REFLEX CKMB/CK) (03/01/2006 8:00 PM CIA AGENT) TROPONIN T 0.18(AA) <=0.03 ng/mL INTERFACE SYSTEM Comment:Results called to An gie at 03/01/2006 9:07 PM and read back verified. TROPONIN T INTERP See Below INTERFACE SYSTEM Comment:Elevated Troponin-T, Consistent with Myocardial Injury 03/01/2006 8:00 PM [employer] AGENT us Warren Renner MD CHEMISTRY ORDERABLES Final Resu lt Performing Organization Address [facility] Co de Phone Number INTERFACE SYSTEM Refer to clinic/hospital department * CBC WITH DIFFERENTIAL (03/01/2006 12:00 PM CIA AGENT) ANISOCYTOSIS Slight INTERFA CE SYSTEM POIKILOCYTES Slight INTERFA CE SYSTEM MICROCYTES Slight INTERFACE SYSTEM CRENATED RBCS Present INTERF CINDY SYSTEM 03/01/2006 12:0 0 PM CIA AGENT Abhinav Barton MD HEMATOLOGY ORDERABLES Final Result Performing Organization Address [facility] de Phone Number INTERFACE SYSTEM Refer to clinic/hospital department * CBC WITH DIFFERENTIAL (03/01/2006 12:00 PM CIA AGENT) Pathologist [facility] NEUTROPHILS 67 45 - 70 % INTERFAC [...] K/uL INTERFACE SYSTEM 03/01/2006 12:0 0 PM CIA AGENT Abhinav Barton MD HEMATOLOGY ORDERABLES Final Result Performing Organization Address [facility] Phone Number INTERFACE SYSTEM Refer to clinic/hospital department * (ABNORMAL) CBC WITH DIFFERENTIAL (03/01/2006 12:00 PM CIA AGENT) Pathologist [facility] WBC 6.6 4.0 - 9.8 K/uL INTERFACE [...] fL INTERFACE SYSTEM 03/01/2006 12:0 0 PM [employer] AGENT Abhinav Barton MD HEMATOLOGY ORDERABLES Final Result Performing Organization Address [facility] Phone Number INTERFACE SYSTEM Refer to clinic/hospital department * (ABNORMAL) PHOSPHORUS (03/01/2006 7:20 AM CIA AGENT) PHOSPHORUS 6.2(H) 2.5 - 4.5 mg/dL INTERFACE SYSTEM 03/01/2006 7:20 AM CIA AGENT Abhinav Barton MD CHEMISTRY ORDERABLES Final Result Performing Organization Address [facility] Phone Number INTERFACE SYSTEM Refer to clinic/hospital department * ALBUMIN LEVEL (03/01/2006 7:20 AM CIA AGENT) ALBUMIN 3.7 3.4 - 4.8 g/dL INTERFACE SYSTEM 03/01/2006 7:20 AM CIA AGENT Abhinav Batron MD CHEMISTRY ORDERABLES Final Result Performing Organization Address [facility] Phone Number INTERFACE SYSTEM Refer to clinic/hospital department * (ABNORMAL) BASIC METABOLIC PANEL (03/01/2006 7:20 AM CIA AGENT) GLUCOSE 85 65 - 99 mg/dL INTERFACE [...] is available on the [facility] Intranet at: [email or web address] Select: Lab Policies and Procedures Select: Reference Ranges - GFR 03/01/2006 7:20 AM CIA AGENT Abhinav Barton MD CHEMISTRY ORDERABLES Final Result Performing Organization Address [facility] Phone Number INTERFACE SYSTEM Refer to clinic/hospital department * EOSINOPHIL SMEAR (02/28/2006 11:36 PM CIA AGENT) EOSINOPHIL SMEAR SOURCE Urine INTERFACE SYSTEM EOSINOPHIL SMEAR No Eos Seen No Eos Seen INTERFACE SYSTEM 02/28/2006 11:3 6 PM CIA AGENT Warren Renner MD BODY FLUIDS AND STOOLS COM Kayla l Result Performing Organization Address [facility] Phone Number INTERFACE SYSTEM Refer to clinic/hospital department * OSMOLALITY, URINE (02/28/2006 11:36 PM CIA AGENT) OSMOLALITY, URINE 329 50 - 1200 mOsml/kg INTERFACE SYSTEM 02/28/2006 11:3 6 PM [employer] AGENT Warren Renner MD URINE ORDERABLES Final Result Performing Organization Address [facility] Phone Number INTERFACE SYSTEM Refer to clinic/hospital department * CREATININE, RANDOM URINE (02/28/2006 11:36 PM CIA AGENT) Creatinine, Urine 86 40 - 278 mg/dL INTERFACE SYSTEM Comment:Note: Effective 01/26 New Methodology and Reference Range 02/28/2006 11:3 6 PM CIA AGENT us Warren Renner MD URINE ORDERABLES Final Result Performing Organization Address [facility] Co de Phone Number INTERFACE SYSTEM Refer to clinic/hospital department * (ABNORMAL) URINALYSIS (02/28/2006 11:15 PM CIA AGENT) COLOR UA Yellow INTERFACE SYSTEM CLARITY UA [...] INTERF CINDY SYSTEM 02/28/2006 11:1 5 PM [employer] AGENT us Warren Renner MD URINE ORDERABLES Final Result Performing Organization Address [facility] Phone Number INTERFACE SYSTEM Refer to clinic/hospital department * (ABNORMAL) BASIC METABOLIC PANEL (02/28/2006 5:37 AM CIA AGENT) GLUCOSE 83 65 - 99 mg/dL INTERFACE [...] is available on the [facility] Intranet at: [email or web address] Select: Lab Policies and Procedures Select: Reference Ranges - GFR 02/28/2006 5:37 AM CIA AGENT us Abhinav Barton MD CHEMISTRY ORDERABLES Final Result Performing Organization Address [facility] de Phone Number INTERFACE SYSTEM Refer to clinic/hospital department * (ABNORMAL) BASIC METABOLIC PANEL (02/27/2006 7:10 AM CIA AGENT) GLUCOSE 85 65 - 99 mg/dL INTERFACE [...] is available on the [facility] Intranet at: [email or web address] Select: Lab Policies and Procedures Select: Reference Ranges - GFR 02/27/2006 7:10 AM CIA AGENT us Abhinav Barton MD CHEMISTRY ORDERABLES Final Result INTERFACE SYSTEM Refer to clinic/hospital department * (ABNORMAL) CREATININE, 24 HR URINE (02/26/2006 1:34 PM CIA AGENT) START DATE 24 HR UR [id number] :[id number] :0:0 INTERFACE SYSTEM START TIME 24 HR UR 1100 time INTERFACE SYSTEM LENGTH OF COLLECTION 24 23 - 25 hr INTERFACE SYSTEM VOLUME, 24 HR URINE 1525 mL INTERFACE SYSTEM CREATININE, 24 HR URINE 0.96(L) 0.98 - 2.20 g/24 hrs INTERFACE SYSTEM Comment:Note: Effective 01/26 New Methodology and Reference Range 02/26/2006 1:34 PM CIA AGENT Warren Renner MD URINE ORDERABLES Final Result Performing Organization Address [facility] de Phone Number INTERFACE SYSTEM Refer to clinic/hospital department * (ABNORMAL) BASIC METABOLIC PANEL (02/26/2006 7:35 AM CIA AGENT) GLUCOSE 122(H) 65 - 99 mg/dL INTERFACE [...] is available on the [facility] Intranet at: [email or web address] Select: Lab Policies and Procedures Select: Reference Ranges - GFR 02/26/2006 7:35 AM CIA AGENT us Abhinav Barton MD CHEMISTRY ORDERABLES Final Result Performing Organization Address [facility] de Phone Number INTERFACE SYSTEM Refer to clinic/hospital department * (ABNORMAL) BASIC METABOLIC PANEL (02/25/2006 5:00 AM CIA AGENT) GLUCOSE 93 65 - 99 mg/dL INTERFACE [...] is available on the [facility] Intranet at: [email or web address] Select: Lab Policies and Procedures Select: Reference Ranges - GFR 02/25/2006 5:00 AM CIA AGENT Abhinav Barton MD CHEMISTRY ORDERABLES Final Result Performing Organization Address [facility] de Phone Number INTERFACE SYSTEM Refer to clinic/hospital department * (ABNORMAL) POC GLUCOSE (02/24/2006 8:56 PM CIA AGENT) GLUCOSE POC 116(H) 65 - 99 mg/dL INTERFACE SYSTEM Comment: 02/10/2006 Change in reference range to correspond to Main Lab reference range. 02/24/2006 8:56 PM CIA AGENT Warren Renner MD POINT OF CARE TESTING Final Res ult Performing Organization Address [facility] Phone Number INTERFACE SYSTEM Refer to clinic/hospital department * (ABNORMAL) BASIC METABOLIC PANEL (02/23/2006 5:24 AM CIA AGENT) GLUCOSE 81 65 - 99 mg/dL INTERFACE [...] is available on the [facility] Intranet at: [email or web address] Select: Lab Policies and Procedures Select: Reference Ranges - GFR 02/23/2006 5:24 AM CIA AGENT Warren Renner MD CHEMISTRY ORDERABLES Final Resu lt Performing Organization Address [facility] Phone Number INTERFACE SYSTEM Refer to clinic/hospital department * (ABNORMAL) POC GLUCOSE (02/22/2006 9:06 PM CIA AGENT) GLUCOSE POC 105(H) 65 - 99 mg/dL INTERFACE SYSTEM Comment: 02/10/2006 Change in reference range to correspond to Main Lab reference range. 02/22/2006 9:06 PM CIA AGENT us Warren Renner MD POINT OF CARE TESTING Final Res ult Performing Organization Address [facility] Phone Number INTERFACE SYSTEM Refer to clinic/hospital department * (ABNORMAL) POC GLUCOSE (02/22/2006 4:42 PM CIA AGENT) GLUCOSE POC 108(H) 65 - 99 mg/dL INTERFACE SYSTEM Comment: 02/10/2006 Change in reference range to correspond to Main Lab reference range. 02/22/2006 4:42 PM CIA AGENT Warren Renner MD POINT OF CARE TESTING Final Res ult Performing Organization Address [facility] Phone Number INTERFACE SYSTEM Refer to clinic/hospital department * POC GLUCOSE (02/22/2006 11:40 AM CIA AGENT) GLUCOSE POC 92 65 - 99 mg/dL INTERFACE SYSTEM Comment: 02/10/2006 Change in reference range to correspond to Main Lab reference range. 02/22/2006 11:4 0 AM CIA AGENT Warren Renner MD POINT OF CARE TESTING Final Res ult Performing Organization Address [facility] [place] Number INTERFACE SYSTEM Refer to clinic/hospital department * (ABNORMAL) CBC WITH DIFFERENTIAL (02/22/2006 5:20 AM CIA AGENT) Pathologist [facility] NEUTROPHILS 75(H) 45 - 70 % INTERFAC [...] 0.20 K/uL INTERFACE SYSTEM 02/22/2006 5:20 AM CIA AGENT Abhinav Barton MD HEMATOLOGY ORDERABLES Final Result Performing Organization Address [facility] Phone Number INTERFACE SYSTEM Refer to clinic/hospital department * (ABNORMAL) CBC WITH DIFFERENTIAL (02/22/2006 5:20 AM CIA AGENT) WBC 7.9 4.0 - 9.8 K/uL INTERFACE [...] 12.4 fL INTERFACE SYSTEM 02/22/2006 5:20 AM CIA AGENT Abhinav Barton MD HEMATOLOGY ORDERABLES Final Result INTERFACE SYSTEM Refer to clinic/hospital department * (ABNORMAL) BASIC METABOLIC PANEL (02/22/2006 5:20 AM CIA AGENT) GLUCOSE 85 65 - 99 mg/dL INTERFACE [...] is available on the [facility] Intranet at: [email or web address] Select: Lab Policies and Procedures Select: Reference Ranges - GFR 02/22/2006 5:20 AM CIA AGENT Ahbinav Barton MD CHEMISTRY ORDERABLES Final Result Performing Organization Address [facility] Phone Number INTERFACE SYSTEM Refer to clinic/hospital department * POC GLUCOSE (02/22/2006 5:09 AM CIA AGENT) GLUCOSE POC 92 65 - 99 mg/dL INTERFACE SYSTEM Comment: 02/10/2006 Change in reference range to correspond to Main Lab reference range. 02/22/2006 5:09 AM CIA AGENT Warren Renner MD POINT OF CARE TESTING Final Res ult Performing Organization Address [facility] Phone Number INTERFACE SYSTEM Refer to clinic/hospital department * (ABNORMAL) POC GLUCOSE (02/21/2006 8:48 PM CIA AGENT) COMMENT, GLU POC Notified RN INTERFACE SYSTEM GLUCOSE POC 116(H) 65 - 99 mg/dL INTERFACE SYSTEM Comment: 02/10/2006 Change in reference range to correspond to Main Lab reference range. 02/21/2006 8:48 PM CIA AGENT Warren Renner MD POINT OF CARE TESTING Final Res ult Performing Organization Address [facility] Phone Number INTERFACE SYSTEM Refer to clinic/hospital department * POC GLUCOSE (02/21/2006 4:29 PM CIA AGENT) COMMENT, GLU POC Notified RN INTERFACE SYSTEM GLUCOSE POC 95 65 - 99 mg/dL INTERFACE SYSTEM Comment: 02/10/2006 Change in reference range to correspond to Main Lab reference range. 02/21/2006 4:29 PM CIA AGENT Warren Renner MD POINT OF CARE TESTING Final Res ult Performing Organization Address [facility] [place] Phone Number INTERFACE SYSTEM Refer to clinic/hospital department * POC GLUCOSE (02/21/2006 11:34 AM CIA AGENT) COMMENT, GLU POC Notified RN INTERFACE SYSTEM GLUCOSE POC 97 65 - 99 mg/dL INTERFACE SYSTEM Comment: 02/10/2006 Change in reference range to correspond to Main Lab reference range. 02/21/2006 11:3 4 AM CIA AGENT us Warren Renner MD POINT OF CARE TESTING Final Res ult Performing Organization Address [facility] Number INTERFACE SYSTEM Refer to clinic/hospital department * (ABNORMAL) POC GLUCOSE (02/21/2006 6:47 AM CIA AGENT) GLUCOSE POC 109(H) 65 - 99 mg/dL INTERFACE SYSTEM Comment: 02/10/2006 Change in reference range to correspond to Main Lab reference range. 02/21/2006 6:47 AM CIA AGENT us Warren Renner MD POINT OF CARE TESTING Final Res ult Performing Organization Address [facility] [place] Number INTERFACE SYSTEM Refer to clinic/hospital department * (ABNORMAL) BASIC METABOLIC PANEL (02/21/2006 4:20 AM CIA AGENT) GLUCOSE 79 65 - 99 mg/dL INTERFACE [...] 30 mmol/L INTERFACE SYSTEM 02/21/2006 4:20 AM CIA AGENT Result Roxie Renner MD CHEMISTRY ORDERABLES Final Resu lt Performing Organization Address [facility] Phone Number INTERFACE SYSTEM Refer to clinic/hospital department * (ABNORMAL) POC GLUCOSE (02/20/2006 8:35 PM CIA AGENT) GLUCOSE POC 120(H) 65 - 99 mg/dL INTERFACE SYSTEM Comment: 02/10/2006 Change in reference range to correspond to Main Lab reference range. 02/20/2006 8:35 PM CIA AGENT us Warren Renner MD POINT OF CARE TESTING Final Res ult Performing Organization Address [facility] Phone Number INTERFACE SYSTEM Refer to clinic/hospital department * (ABNORMAL) POC GLUCOSE (02/20/2006 3:52 PM CIA AGENT) COMMENT, GLU POC Notified RN INTERFACE SYSTEM GLUCOSE POC 104(H) 65 - 99 mg/dL INTERFACE SYSTEM Comment: 02/10/2006 Change in reference range to correspond to Main Lab reference range. 02/20/2006 3:52 PM CIA AGENT us Warren Renner MD POINT OF CARE TESTING Final Res ult Performing Organization Address [facility] Phone Number INTERFACE SYSTEM Refer to clinic/hospital department * (ABNORMAL) POC GLUCOSE (02/20/2006 11:02 AM CIA AGENT) GLUCOSE POC 102(H) 65 - 99 mg/dL INTERFACE SYSTEM Comment: 02/10/2006 Change in reference range to correspond to Main Lab reference range. 02/20/2006 11:0 2 AM CIA AGENT us Warren Renner MD POINT OF CARE TESTING Final Res ult Performing Organization Address [facility] Phone Number INTERFACE SYSTEM Refer to clinic/hospital department * (ABNORMAL) BASIC METABOLIC PANEL (02/20/2006 7:00 AM CIA AGENT) GLUCOSE 86 65 - 99 mg/dL INTERFACE [...] 30 mmol/L INTERFACE SYSTEM 02/20/2006 7:00 AM CIA AGENT Abhinav Barton MD CHEMISTRY ORDERABLES Final Result Performing Organization Address [facility] Phone Number INTERFACE SYSTEM Refer to clinic/hospital department * (ABNORMAL) POC GLUCOSE (02/20/2006 5:39 AM CIA AGENT) COMMENT, GLU POC Notified RN INTERFACE SYSTEM GLUCOSE POC 100(H) 65 - 99 mg/dL INTERFACE SYSTEM Comment: 02/10/2006 Change in reference range to correspond to Main Lab reference range. 02/20/2006 5:39 AM CIA AGENT Warren Renner MD POINT OF CARE TESTING Final Res ult Performing Organization Address [facility] [place] Number INTERFACE SYSTEM Refer to clinic/hospital department * (ABNORMAL) POC GLUCOSE (02/19/2006 9:24 PM CIA AGENT) COMMENT, GLU POC Notified RN INTERFACE SYSTEM GLUCOSE POC 108(H) 65 - 99 mg/dL INTERFACE SYSTEM Comment: 02/10/2006 Change in reference range to correspond to Main Lab reference range. 02/19/2006 9:24 PM [employer] Warren Renner MD POINT OF CARE TESTING Final Res ult Performing Organization Address [facility] Phone Number INTERFACE SYSTEM Refer to clinic/hospital department * (ABNORMAL) POC GLUCOSE (02/19/2006 4:03 PM [employer] AG[employer]) COMMENT, GLU POC Notified RN INTERFACE SYSTEM GLUCOSE POC 154(H) 65 - 99 mg/dL INTERFACE SYSTEM Comment: 02/10/2006 Change in reference range to correspond to Main Lab reference range. 02/19/2006 4:03 PM [employer] Warren Renner MD POINT OF CARE TESTING Final Res ult Performing Organization Address [facility] Phone Number INTERFACE SYSTEM Refer to clinic/hospital department * (ABNORMAL) POC GLUCOSE (02/19/2006 11:01 AM [employer]) GLUCOSE POC 110(H) 65 - 99 mg/dL INTERFACE SYSTEM Comment: 02/10/2006 Change in reference range to correspond to Main Lab reference range. 02/19/2006 11:0 1 AM [employer] Warren Renner MD POINT OF CARE TESTING Final Res ult Performing Organization Address [facility] Phone Number INTERFACE SYSTEM Refer to clinic/hospital department * (ABNORMAL) CBC WITH DIFFERENTIAL (02/19/2006 7:35 AM [employer]) NEUTROPHILS 72(H) 45 - 70 % INTERFAC [...] 0.20 K/uL INTERFACE SYSTEM 02/19/2006 7:35 AM [employer] Vivian Barrett MD HEMATOLOGY ORDERABLES Final R esult Performing Organization Address [facility] Phone Number INTERFACE SYSTEM Refer to clinic/hospital department * (ABNORMAL) CBC WITH DIFFERENTIAL (02/19/2006 7:35 AM [employer]) WBC 6.0 4.0 - 9.8 K/uL INTERFACE [...] 12.4 fL INTERFACE SYSTEM 02/19/2006 7:35 AM [employer] AGENT us Vivian Barrett MD HEMATOLOGY ORDERABLES Final R esult Performing Organization Address [facility] Co de Phone Number INTERFACE SYSTEM Refer to clinic/hospital department * (ABNORMAL) BASIC METABOLIC PANEL (02/19/2006 7:35 AM [employer]) GLUCOSE 88 65 - 99 mg/dL INTERFACE [...] 30 mmol/L INTERFACE SYSTEM 02/19/2006 7:35 AM [employer] us Abhinav Barton MD CHEMISTRY ORDERABLES Final Result Performing Organization Address [facility]/ZIP Co de Phone Number INTERFACE SYSTEM Refer to clinic/hospital department * POC GLUCOSE (02/19/2006 6:03 AM [employer]) COMMENT, GLU POC Notified RN INTERFACE SYSTEM GLUCOSE POC 99 65 - 99 mg/dL INTERFACE SYSTEM Comment: 02/10/2006 Change in reference range to correspond to Main Lab reference range. 02/19/2006 6:03 AM [employer] us Warren Renner MD POINT OF CARE TESTING Final Res ult Performing Organization Address [facility] Phone Number INTERFACE SYSTEM Refer to clinic/hospital department * (ABNORMAL) POC GLUCOSE (02/18/2006 8:46 PM [employer]) COMMENT, GLU POC Notified RN INTERFACE SYSTEM GLUCOSE POC 108(H) 65 - 99 mg/dL INTERFACE SYSTEM Comment: 02/10/2006 Change in reference range to correspond to Main Lab reference range. 02/18/2006 8:46 PM [employer] us Warren Renner MD POINT OF CARE TESTING Final Res ult Performing Organization Address [facility] Phone Number INTERFACE SYSTEM Refer to clinic/hospital department * (ABNORMAL) POC GLUCOSE (02/18/2006 4:05 PM [employer]) COMMENT, GLU POC Notified RN INTERFACE SYSTEM GLUCOSE POC 123(H) 65 - 99 mg/dL INTERFACE SYSTEM Comment: 02/10/2006 Change in reference range to correspond to Main Lab reference range. 02/18/2006 4:05 PM [employer] us Warren Renner MD POINT OF CARE TESTING Final Res ult Performing Organization Address [facility] Phone Number INTERFACE SYSTEM Refer to clinic/hospital department * (ABNORMAL) POC GLUCOSE (02/18/2006 11:37 AM [employer]) COMMENT, GLU POC Notified RN INTERFACE SYSTEM GLUCOSE POC 107(H) 65 - 99 mg/dL INTERFACE SYSTEM Comment: 02/10/2006 Change in reference range to correspond to Main Lab reference range. 02/18/2006 11:3 7 AM [employer] us Warren Renner MD POINT OF CARE TESTING Final Res ult Performing Organization Address [facility] Phone Number INTERFACE SYSTEM Refer to clinic/hospital department * (ABNORMAL) BASIC METABOLIC PANEL (02/18/2006 5:50 AM [employer]) GLUCOSE 81 65 - 99 mg/dL INTERFACE [...] 30 mmol/L INTERFACE SYSTEM 02/18/2006 5:50 AM [employer] Abhinav Barton MD CHEMISTRY ORDERABLES Final Result Performing Organization Address [facility] Phone Number INTERFACE SYSTEM Refer to clinic/hospital department * (ABNORMAL) POC GLUCOSE (02/18/2006 5:02 AM [employer]) GLUCOSE POC 105(H) 65 - 99 mg/dL INTERFACE SYSTEM Comment: 02/10/2006 Change in reference range to correspond to Main Lab reference range. 02/18/2006 5:02 AM [employer] Warren Renner MD POINT OF CARE TESTING Final Res ult Performing Organization Address [facility] Phone Number INTERFACE SYSTEM Refer to clinic/hospital department * (ABNORMAL) POC GLUCOSE (02/17/2006 9:12 PM [employer] AG[employer]) GLUCOSE POC 110(H) 65 - 99 mg/dL INTERFACE SYSTEM Comment: 02/10/2006 Change in reference range to correspond to Main Lab reference range. 02/17/2006 9:12 PM [employer] Warren Renner MD POINT OF CARE TESTING Final Res ult Performing Organization Address [facility] de Phone Number INTERFACE SYSTEM Refer to clinic/hospital department * POC GLUCOSE (02/17/2006 4:04 PM [employer]) GLUCOSE POC 98 65 - 99 mg/dL INTERFACE SYSTEM Comment: 02/10/2006 Change in reference range to correspond to Main Lab reference range. 02/17/2006 4:04 PM [employer] us Warren Renner MD POINT OF CARE TESTING Final Res ult Performing Organization Address [facility] Phone Number INTERFACE SYSTEM Refer to clinic/hospital department * POC GLUCOSE (02/17/2006 11:26 AM [employer] AG[employer]) COMMENT, GLU POC Notified RN INTERFACE SYSTEM GLUCOSE POC 86 65 - 99 mg/dL INTERFACE SYSTEM Comment: 02/10/2006 Change in reference range to correspond to Main Lab reference range. 02/17/2006 11:2 6 AM [employer] us Warren Renner MD POINT OF CARE TESTING Final Res ult Performing Organization Address [facility] Phone Number INTERFACE SYSTEM Refer to clinic/hospital department * POC GLUCOSE (02/17/2006 5:23 AM [employer] AGENT) GLUCOSE POC 92 65 - 99 mg/dL INTERFACE SYSTEM Comment: 02/10/2006 Change in reference range to correspond to Main Lab reference range. 02/17/2006 5:23 AM [employer] us Warren Renner MD POINT OF CARE TESTING Final Res ult Performing Organization Address [facility] Phone Number INTERFACE SYSTEM Refer to clinic/hospital department * (ABNORMAL) BASIC METABOLIC PANEL (02/17/2006 5:00 AM [employer]) GLUCOSE 74 65 - 99 mg/dL INTERFACE [...] 30 mmol/L INTERFACE SYSTEM 02/17/2006 5:00 AM [employer] Abhinav Barton MD CHEMISTRY ORDERABLES Final Result Performing Organization Address [facility] Phone Number INTERFACE SYSTEM Refer to clinic/hospital department * POC GLUCOSE (02/16/2006 10:48 PM [employer]) GLUCOSE POC 91 65 - 99 mg/dL INTERFACE SYSTEM Comment: 02/10/2006 Change in reference range to correspond to Main Lab reference range. 02/16/2006 10:4 8 PM [employer] Warren Renner MD POINT OF CARE TESTING Final Res ult Performing Organization Address [facility] Phone Number INTERFACE SYSTEM Refer to clinic/hospital department * POC GLUCOSE (02/16/2006 4:32 PM [employer] AG[employer]) COMMENT, GLU POC Notified RN INTERFACE SYSTEM GLUCOSE POC 89 65 - 99 mg/dL INTERFACE SYSTEM Comment: 02/10/2006 Change in reference range to correspond to Main Lab reference range. 02/16/2006 4:32 PM [employer] Warren Renner MD POINT OF CARE TESTING Final Res ult Performing Organization Address [facility] Phone Number INTERFACE SYSTEM Refer to clinic/hospital department * (ABNORMAL) BASIC METABOLIC PANEL (02/16/2006 12:03 PM [employer]) GLUCOSE 81 65 - 99 mg/dL INTERFACE [...] mmol/L INTERFACE SYSTEM 02/16/2006 12:0 3 PM [employer] Abhinav Barton MD CHEMISTRY ORDERABLES Final Result Performing Organization Address [facility] Phone Number INTERFACE SYSTEM Refer to clinic/hospital department * (ABNORMAL) POC GLUCOSE (02/16/2006 11:45 AM [employer]) COMMENT, GLU POC Notified RN INTERFACE SYSTEM GLUCOSE POC 102(H) 65 - 99 mg/dL INTERFACE SYSTEM Comment: 02/10/2006 Change in reference range to correspond to Main Lab reference range. 02/16/2006 11:4 5 AM [employer] Warren Renner MD POINT OF CARE TESTING Final Res ult Performing Organization Address [facility] Phone Number INTERFACE SYSTEM Refer to clinic/hospital department * (ABNORMAL) POC GLUCOSE (02/16/2006 8:06 AM [employer]) COMMENT, GLU POC Notified RN INTERFACE SYSTEM GLUCOSE POC 100(H) 65 - 99 mg/dL INTERFACE SYSTEM Comment: 02/10/2006 Change in reference range to correspond to Main Lab reference range. 02/16/2006 8:06 AM [employer] Warren Renner MD POINT OF CARE TESTING Final Res ult Performing Organization Address [facility] [place] Number INTERFACE SYSTEM Refer to clinic/hospital department * VANCOMYCIN LEVEL RANDOM (02/16/2006 5:50 AM [employer] AGENT) VANCOMYCIN, RANDOM 10.7 ug/mL INTERFACE SYSTEM Comment: Vancomycin Trough Therapeutic Range = 5.0 - 15.0 ug/mL Vancomycin Trough Toxic Level = >15.0 ug/mL Vancomycin Peak Therapeutic Range = 20.0 - 40.0 ug/mL Vancomycin Peak Toxic Level = >40.0 ug/mL 02/16/2006 5:50 AM [employer] AGENT Tobi Tubbs MD CHEMISTRY ORDERABLES Final Result Performing Organization Address [facility] Phone Number INTERFACE SYSTEM Refer to clinic/hospital department * POC GLUCOSE (02/15/2006 9:10 PM [employer] AGENT) COMMENT, GLU POC Notified RN INTERFACE SYSTEM GLUCOSE POC 97 65 - 99 mg/dL INTERFACE SYSTEM Comment: 02/10/2006 Change in reference range to correspond to Main Lab reference range. 02/15/2006 9:10 PM [employer] us Warren Renner MD POINT OF CARE TESTING Final Res ult Performing Organization Address [facility] Phone Number INTERFACE SYSTEM Refer to clinic/hospital department * (ABNORMAL) POC GLUCOSE (02/15/2006 3:52 PM [employer] AGENT) COMMENT, GLU POC Notified RN INTERFACE SYSTEM GLUCOSE POC 102(H) 65 - 99 mg/dL INTERFACE SYSTEM Comment: 02/10/2006 Change in reference range to correspond to Main Lab reference range. 02/15/2006 3:52 PM [employer] us Warren Renner MD POINT OF CARE TESTING Final Res ult Performing Organization Address [facility] Phone Number INTERFACE SYSTEM Refer to clinic/hospital department * POC GLUCOSE (02/15/2006 11:43 AM [employer] AGENT) COMMENT, GLU POC Notified RN INTERFACE SYSTEM GLUCOSE POC 90 65 - 99 mg/dL INTERFACE SYSTEM Comment: 02/10/2006 Change in reference range to correspond to Main Lab reference range. 02/15/2006 11:4 3 AM [employer] AGENT us Warren Renner MD POINT OF CARE TESTING Final Res ult Performing Organization Address [facility] Phone Number INTERFACE SYSTEM Refer to clinic/hospital department * (ABNORMAL) BASIC METABOLIC PANEL (02/15/2006 6:45 AM [employer] AGENT) GLUCOSE 85 65 - 99 mg/dL INTERFACE [...] 30 mmol/L INTERFACE SYSTEM 02/15/2006 6:45 AM [employer] AGENT Result [facility] Abhinav Barton MD CHEMISTRY ORDERABLES Final Result Performing Organization Address [facility] Phone Number INTERFACE SYSTEM Refer to clinic/hospital department * (ABNORMAL) POC GLUCOSE (02/15/2006 5:06 AM [employer] AGENT) COMMENT, GLU POC Notified RN INTERFACE SYSTEM GLUCOSE POC 101(H) 65 - 99 mg/dL INTERFACE SYSTEM Comment: 02/10/2006 Change in reference range to correspond to Main Lab reference range. 02/15/2006 5:06 AM [employer] AG[employer] Warren Renner MD POINT OF CARE TESTING Final Res ult Performing Organization Address [facility] Phone Number INTERFACE SYSTEM Refer to clinic/hospital department * (ABNORMAL) POC GLUCOSE (02/14/2006 9:46 PM [employer] AGENT) GLUCOSE POC 106(H) 65 - 99 mg/dL INTERFACE SYSTEM Comment: 02/10/2006 Change in reference range to correspond to Main Lab reference range. 02/14/2006 9:46 PM [employer] AGENT Warren Renner MD POINT OF CARE TESTING Final Res ult Performing Organization Address [facility] Phone Number INTERFACE SYSTEM Refer to clinic/hospital department * (ABNORMAL) POC GLUCOSE (02/14/2006 4:15 PM [employer] AGENT) COMMENT, GLU POC Notified RN INTERFACE SYSTEM GLUCOSE POC 104(H) 65 - 99 mg/dL INTERFACE SYSTEM Comment: 02/10/2006 Change in reference range to correspond to Main Lab reference range. 02/14/2006 4:15 PM [employer] Warren Renner MD POINT OF CARE TESTING Final Res ult Performing Organization Address [facility] de Phone Number INTERFACE SYSTEM Refer to clinic/hospital department * (ABNORMAL) URINALYSIS (02/14/2006 12:52 PM [employer] AGENT) COLOR UA Yellow INTERFACE SYSTEM CLARITY UA [...] INTER FACE SYSTEM 02/14/2006 12:5 2 PM [employer] AGENT Warren Renner MD URINE ORDERABLES Final Result Performing Organization Address [facility] Phone Number INTERFACE SYSTEM Refer to clinic/hospital department * (ABNORMAL) POC GLUCOSE (02/14/2006 11:38 AM [employer] AGENT) GLUCOSE POC 100(H) 65 - 99 mg/dL INTERFACE SYSTEM Comment: 02/10/2006 Change in reference range to correspond to Main Lab reference range. 02/14/2006 11:3 8 AM [employer] AGENT us Warren Renner MD POINT OF CARE TESTING Final Res ult Performing Organization Address [facility] Co de Phone Number INTERFACE SYSTEM Refer to clinic/hospital department * POC GLUCOSE (02/14/2006 6:35 AM [employer] AGENT) GLUCOSE POC 93 65 - 99 mg/dL INTERFACE SYSTEM Comment: 02/10/2006 Change in reference range to correspond to Main Lab reference range. 02/14/2006 6:35 AM [employer] AGENT us Warren Renner MD POINT OF CARE TESTING Final Res ult Performing Organization Address [facility] Phone Number INTERFACE SYSTEM Refer to clinic/hospital department * (ABNORMAL) BASIC METABOLIC PANEL (02/14/2006 5:20 AM [employer] AGENT) GLUCOSE 85 65 - 99 mg/dL INTERFACE [...] 30 mmol/L INTERFACE SYSTEM 02/14/2006 5:20 AM [employer] AGENT Abhinav Barton MD CHEMISTRY ORDERABLES Final Result Performing Organization Address [facility] Phone Number INTERFACE SYSTEM Refer to clinic/hospital department * (ABNORMAL) POC GLUCOSE (02/13/2006 8:47 PM [employer] AGENT) GLUCOSE POC 127(H) 65 - 99 mg/dL INTERFACE SYSTEM Comment: 02/10/2006 Change in reference range to correspond to Main Lab reference range. 02/13/2006 8:47 PM [employer] AGENT Warren Renner MD POINT OF CARE TESTING Final Res ult Performing Organization Address [facility] Phone Number INTERFACE SYSTEM Refer to clinic/hospital department * (ABNORMAL) POC GLUCOSE (02/13/2006 5:57 PM [employer] AGENT) GLUCOSE POC 120(H) 65 - 99 mg/dL INTERFACE SYSTEM Comment: 02/10/2006 Change in reference range to correspond to Main Lab reference range. 02/13/2006 5:57 PM [employer] AGENT Warren Renner MD POINT OF CARE TESTING Final Res ult Performing Organization Address [facility] Phone Number INTERFACE SYSTEM Refer to clinic/hospital department * VANCOMYCIN LEVEL RANDOM (02/13/2006 1:05 PM [employer] AGENT) VANCOMYCIN, RANDOM 13.4 ug/mL INTERFACE SYSTEM Comment: Vancomycin Trough Therapeutic Range = 5.0 - 15.0 ug/mL Vancomycin Trough Toxic Level = >15.0 ug/mL Vancomycin Peak Therapeutic Range = 20.0 - 40.0 ug/mL Vancomycin Peak Toxic Level = >40.0 ug/mL 02/13/2006 1:05 PM [employer]ENT Abhinav Barton MD CHEMISTRY ORDERABLES Final Result Performing Organization Address [facility] Phone Number INTERFACE SYSTEM Refer to clinic/hospital department * (ABNORMAL) CBC WITH DIFFERENTIAL (02/13/2006 1:05 PM [employer] AGENT) NEUTROPHILS 84(H) 45 - 70 % INTERFAC [...] 0.20 K/uL INTERFACE SYSTEM 02/13/2006 1:05 PM [employer]ENT Abhinav Barton MD HEMATOLOGY ORDERABLES Final Result Performing Organization Address [facility] Phone Number INTERFACE SYSTEM Refer to clinic/hospital department * (ABNORMAL) CBC WITH DIFFERENTIAL (02/13/2006 1:05 PM [employer] AGENT) WBC 12.5(H) 4.0 - 9.8 K/uL INTERFACE [...] 12.4 fL INTERFACE SYSTEM 02/13/2006 1:05 PM [employer] AGENT us Abhinav Barton MD HEMATOLOGY ORDERABLES Final Result Performing Organization Address [facility] Phone Number INTERFACE SYSTEM Refer to clinic/hospital department * POC GLUCOSE (02/13/2006 11:25 AM [employer] AGENT) GLUCOSE POC 80 65 - 99 mg/dL INTERFACE SYSTEM Comment: 02/10/2006 Change in reference range to correspond to Main Lab reference range. 02/13/2006 11:2 5 AM [employer] AGENT us Warren Renner MD POINT OF CARE TESTING Final Res ult Performing Organization Address [facility] Phone Number INTERFACE SYSTEM Refer to clinic/hospital department * PHOSPHORUS (02/13/2006 8:35 AM [employer] AGENT) PHOSPHORUS 4.4 2.5 - 4.5 mg/dL INTERFACE SYSTEM 02/13/2006 8:35 AM [employer] AGENT us Abhinav Barton MD CHEMISTRY ORDERABLES Final Result Performing Organization Address [facility] Phone Number INTERFACE SYSTEM Refer to clinic/hospital department * (ABNORMAL) ALBUMIN LEVEL (02/13/2006 8:35 AM [employer] AGENT) ALBUMIN 3.1(L) 3.4 - 4.8 g/dL INTERFACE SYSTEM Comment:Previous specimen us ed; approved by floor. 02/13/2006 8:35 AM [employer]ENT Abhinav Barton MD CHEMISTRY ORDERABLES Final Result Performing Organization Address [facility] Phone Number INTERFACE SYSTEM Refer to clinic/hospital department * (ABNORMAL) BASIC METABOLIC PANEL (02/13/2006 8:35 AM [employer] AGENT) GLUCOSE 169(H) 65 - 99 mg/dL INTERFACE [...] 30 mmol/L INTERFACE SYSTEM 02/13/2006 8:35 AM [employer]ENT Abhinav Barton MD CHEMISTRY ORDERABLES Final Result Performing Organization Address [facility] Phone Number INTERFACE SYSTEM Refer to clinic/hospital department * POC GLUCOSE (02/13/2006 5:25 AM [employer] AGENT) GLUCOSE POC 94 65 - 99 mg/dL INTERFACE SYSTEM Comment: 02/10/2006 Change in reference range to correspond to Main Lab reference range. 02/13/2006 5:25 AM [employer] AGENT Warren Renner MD POINT OF CARE TESTING Final Res ult Performing Organization Address [facility] Phone Number INTERFACE SYSTEM Refer to clinic/hospital department * (ABNORMAL) POC GLUCOSE (02/12/2006 8:41 PM [employer] AGENT) GLUCOSE POC 148(H) 65 - 99 mg/dL INTERFACE SYSTEM Comment: 02/10/2006 Change in reference range to correspond to Main Lab reference range. 02/12/2006 8:41 PM [employer] AGENT us Warren Renner MD POINT OF CARE TESTING Final Res ult Performing Organization Address [facility] Phone Number INTERFACE SYSTEM Refer to clinic/hospital department * (ABNORMAL) POC GLUCOSE (02/12/2006 5:38 PM [employer] AGENT) GLUCOSE POC 102(H) 65 - 99 mg/dL INTERFACE SYSTEM Comment: 02/10/2006 Change in reference range to correspond to Main Lab reference range. 02/12/2006 5:38 PM [employer] AGENT us Warren Renner MD POINT OF CARE TESTING Final Res ult Performing Organization Address [facility] Phone Number INTERFACE SYSTEM Refer to clinic/hospital department * (ABNORMAL) POC GLUCOSE (02/12/2006 11:29 AM [employer] AGENT) COMMENT, GLU POC Notified RN INTERFACE SYSTEM GLUCOSE POC 100(H) 65 - 99 mg/dL INTERFACE SYSTEM Comment: 02/10/2006 Change in reference range to correspond to Main Lab reference range. 02/12/2006 11:2 9 AM [employer] AGENT us Warren Renner MD POINT OF CARE TESTING Final Res ult Performing Organization Address [facility] Phone Number INTERFACE SYSTEM Refer to clinic/hospital department * (ABNORMAL) CBC WITH DIFFERENTIAL (02/12/2006 7:40 AM [employer] AGENT) NEUTROPHILS 78(H) 45 - 70 % INTERFAC [...] 0.20 K/uL INTERFACE SYSTEM 02/12/2006 7:40 AM [employer] AG[employer] Warren Renner MD HEMATOLOGY ORDERABLES Final Res ult Performing Organization Address [facility]/ZIP Co de Phone Number INTERFACE SYSTEM Refer to clinic/hospital department * (ABNORMAL) CBC WITH DIFFERENTIAL (02/12/2006 7:40 AM [employer] AGENT) WBC 6.6 4.0 - 9.8 K/uL INTERFACE [...] 12.4 fL INTERFACE SYSTEM 02/12/2006 7:40 AM [employer] AGENT Warren Renner MD HEMATOLOGY ORDERABLES Final Res ult Performing Organization Address [facility] de Phone Number INTERFACE SYSTEM Refer to clinic/hospital department * (ABNORMAL) BASIC METABOLIC PANEL (02/12/2006 7:40 AM [employer] AGENT) GLUCOSE 84 65 - 99 mg/dL INTERFACE [...] 30 mmol/L INTERFACE SYSTEM 02/12/2006 7:40 AM [employer] Abhinav Barton MD CHEMISTRY ORDERABLES Final Result Performing Organization Address [facility] INTERFACE SYSTEM Refer to clinic/hospital department * POC GLUCOSE (02/12/2006 6:37 AM [employer] AGENT) GLUCOSE POC 94 65 - 99 mg/dL INTERFACE SYSTEM Comment: 02/10/2006 Change in reference range to correspond to Main Lab reference range. 02/12/2006 6:37 AM [employer] AGENT Warren Renner MD POINT OF CARE TESTING Final Res ult Performing Organization Address [facility] INTERFACE SYSTEM Refer to clinic/hospital department * (ABNORMAL) POC GLUCOSE (02/11/2006 8:33 PM [employer] AGENT) GLUCOSE POC 136(H) 65 - 99 mg/dL INTERFACE SYSTEM Comment: 02/10/2006 Change in reference range to correspond to Main Lab reference range. 02/11/2006 8:33 PM [employer] Warren Renner MD POINT OF CARE TESTING Final Res ult Performing Organization Address [facility] INTERFACE SYSTEM Refer to clinic/hospital department * PHOSPHORUS (02/11/2006 1:10 PM [employer] AGENT) PHOSPHORUS 3.9 2.5 - 4.5 mg/dL INTERFACE SYSTEM 02/11/2006 1:10 PM [employer] Abhinav Barton MD CHEMISTRY ORDERABLES Final Result Performing Organization Address [facility] INTERFACE SYSTEM Refer to clinic/hospital department * (ABNORMAL) ALBUMIN LEVEL (02/11/2006 1:10 PM [employer] AGENT) ALBUMIN 3.0(L) 3.4 - 4.8 g/dL INTERFACE SYSTEM 02/11/2006 1:10 PM [employer] Abhinav Barton MD CHEMISTRY ORDERABLES Final Result Performing Organization Address [facility] de Phone Number INTERFACE SYSTEM Refer to clinic/hospital department * (ABNORMAL) CBC WITH DIFFERENTIAL (02/11/2006 1:10 PM [employer] AGENT) NEUTROPHILS 74(H) 45 - 70 % INTERFAC [...] 0.20 K/uL INTERFACE SYSTEM 02/11/2006 1:10 PM [employer] Abhinav Barton MD HEMATOLOGY ORDERABLES Final Result Performing Organization Address [facility] Phone Number INTERFACE SYSTEM Refer to clinic/hospital department * (ABNORMAL) CBC WITH DIFFERENTIAL (02/11/2006 1:10 PM [employer] AGENT) Pathologist [facility] WBC 8.4 4.0 - 9.8 K/uL INTERFACE [...] 12.4 fL INTERFACE SYSTEM 02/11/2006 1:10 PM [employer] Abhinav Barton MD HEMATOLOGY ORDERABLES Final Result Performing Organization Address [facility] Phone Number INTERFACE SYSTEM Refer to clinic/hospital department * (ABNORMAL) BASIC METABOLIC PANEL (02/11/2006 1:10 PM [employer] AGENT) GLUCOSE 132(H) 65 - 99 mg/dL INTERFACE [...] 30 mmol/L INTERFACE SYSTEM 02/11/2006 1:10 PM [employer] Abhinav Barton MD CHEMISTRY ORDERABLES Final Result Performing Organization Address [facility] Phone Number INTERFACE SYSTEM Refer to clinic/hospital department * VANCOMYCIN LEVEL RANDOM (02/11/2006 1:10 PM CIA AGENT) VANCOMYCIN, RANDOM 10.4 ug/mL INTERFACE SYSTEM Comment: Vancomycin Trough Therapeutic Range = 5.0 - 15.0 ug/mL Vancomycin Trough Toxic Level = >15.0 ug/mL Vancomycin Peak Therapeutic Range = 20.0 - 40.0 ug/mL Vancomycin Peak Toxic Level = >40.0 ug/mL 02/11/2006 1:10 PM CIA AGENT Tobi Tubbs MD CHEMISTRY ORDERABLES Final Result Performing Organization Address [facility] Phone Number INTERFACE SYSTEM Refer to clinic/hospital department * POC GLUCOSE (02/11/2006 11:27 AM CIA AGENT) GLUCOSE POC 94 65 - 99 mg/dL INTERFACE SYSTEM Comment: 02/10/2006 Change in reference range to correspond to Main Lab reference range. 02/11/2006 11:2 7 AM CIA AGENT us Warren Renner MD POINT OF CARE TESTING Final Res ult Performing Organization Address [facility] Phone Number INTERFACE SYSTEM Refer to clinic/hospital department * POC GLUCOSE (02/11/2006 5:24 AM CIA AGENT) GLUCOSE POC 98 65 - 99 mg/dL INTERFACE SYSTEM Comment: 02/10/2006 Change in reference range to correspond to Main Lab reference range. 02/11/2006 5:24 AM CIA AGENT us Warren Renner MD POINT OF CARE TESTING Final Res ult Performing Organization Address [facility] Phone Number INTERFACE SYSTEM Refer to clinic/hospital department * POC GLUCOSE (02/10/2006 9:27 PM CIA AGENT) GLUCOSE POC 97 65 - 99 mg/dL INTERFACE SYSTEM Comment: 02/10/2006 Change in reference range to correspond to Main Lab reference range. 02/10/2006 9:27 PM CIA AGENT us Warren Renner MD POINT OF CARE TESTING Final Res ult Performing Organization Address [facility] Phone Number INTERFACE SYSTEM Refer to clinic/hospital department * (ABNORMAL) POC GLUCOSE (02/10/2006 5:31 PM CIA AGENT) GLUCOSE POC 159(H) 65 - 99 mg/dL INTERFACE SYSTEM Comment: 02/10/2006 Change in reference range to correspond to Main Lab reference range. 02/10/2006 5:31 PM CIA AGENT us Warren Renner MD POINT OF CARE TESTING Final Res ult Performing Organization Address [facility] Phone Number INTERFACE SYSTEM Refer to clinic/hospital department * (ABNORMAL) POC GLUCOSE (02/10/2006 11:53 AM CIA AGENT) GLUCOSE POC 112(H) 65 - 99 mg/dL INTERFACE SYSTEM 02/10/2006 11:5 3 AM CIA AGENT Result Roxie Renner MD POINT OF CARE TESTING Final Res ult Performing Organization Address [facility] Phone Number INTERFACE SYSTEM Refer to clinic/hospital department * POC GLUCOSE (02/10/2006 5:14 AM CIA AGENT) COMMENT, GLU POC Notified RN INTERFACE SYSTEM GLUCOSE POC 96 65 - 109 mg/dL INTERFACE SYSTEM 02/10/2006 5:14 AM CIA AGENT us Warren Renner MD POINT OF CARE TESTING Final Res ult Performing Organization Address [facility] Phone Number INTERFACE SYSTEM Refer to clinic/hospital department * (ABNORMAL) POC GLUCOSE (02/09/2006 8:42 PM CIA AGENT) COMMENT, GLU POC Notified RN INTERFACE SYSTEM GLUCOSE POC 141(H) 65 - 109 mg/dL INTERFACE SYSTEM 02/09/2006 8:42 PM CIA AGENT us Warren Renner MD POINT OF CARE TESTING Final Res ult Performing Organization Address [facility] Phone Number INTERFACE SYSTEM Refer to clinic/hospital department * POC GLUCOSE (02/09/2006 5:53 PM CIA AGENT) GLUCOSE POC 109 65 - 109 mg/dL INTERFACE SYSTEM 02/09/2006 5:53 PM CIA AGENT Result Roxie Renner MD POINT OF CARE TESTING Final Res ult Performing Organization Address [facility] Phone Number INTERFACE SYSTEM Refer to clinic/hospital department * (ABNORMAL) POC GLUCOSE (02/09/2006 11:58 AM CIA AGENT) GLUCOSE POC 118(H) 65 - 109 mg/dL INTERFACE SYSTEM 02/09/2006 11:5 8 AM CIA AGENT Result Roxie Renner MD POINT OF CARE TESTING Final Res ult Performing Organization Address [facility] Phone Number INTERFACE SYSTEM Refer to clinic/hospital department * (ABNORMAL) CBC WITH DIFFERENTIAL (02/09/2006 5:43 AM CIA AGENT) NEUTROPHILS 73(H) 45 - 70 % INTERFAC [...] 0.20 K/uL INTERFACE SYSTEM 02/09/2006 5:43 AM CIA AGENT Warren Renner MD HEMATOLOGY ORDERABLES Final Res ult Performing Organization Address [facility] Phone Number INTERFACE SYSTEM Refer to clinic/hospital department * (ABNORMAL) CBC WITH DIFFERENTIAL (02/09/2006 5:43 AM CIA AGENT) Pathologist [facility] WBC 6.6 4.0 - 9.8 K/uL INTERFACE [...]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
--- OUTSIDE RECORDS SUMMARY | 2025-01-23 17:13 | XMS_ITS | Encounter Summary ---
Author Organization [facility] Address [address] [place] [address] Care Team Providers Care Boat Ride Operator Name Role Phone Morgan Mercado MD Primary Care Provider + [phone] Brisa Lowe MD Unavailable [phone] Aamir Thakkar MD Unavailable [phone] Rodolfo Berman MD Unavailable [phone] Encounter Details Date Type Department Care Team (Late st Contact Info) Description 08/03/2016 Orders Only [facility] Provider, MD [address] [place] [address] Social History Tobacco Use Types Packs/Day Years Used Date Smoking Tobacco: Light Smoker Comments:Smoking History Pac ks/day: 0.25 Packs Alcohol Use Standard Drinks/Week Comments No 0 (1 standard drink = 0.6 oz pur e alcohol) Sex and Gender Information Value Date Recorded Sex Assigned at Not on file Legal Sex Male 10:59 AM CORONER Gender Identity Not on file Sexual Orientation [...] COVID: Suspected 05/03/2024 05/03/2024 05/03/2024 5:42 PM CORONER COVID19 Comment:S&S onset date 05/01/2024. Pt is not immunosuppressed. Patient is first eligible for COVID: Recovered evaluation on 05/11/2024. Please reach out to Infection Prevention at that time to change isolation status if the provider feels criteria is met. Ronit Garcia N.O. 05/03/2024 05/03/2024 05/16/2024 3:[address] COVID: Recovered Comment:Added based on recent COVID infection. 05/16/2024 05/19/2024 08/14/2024 7:26 PM C DT COVID: Suspected 05/19/2024 05/19/2024 05/19/2024 4:14 PM CORONER COVID19 Comment:S&S onset date 05/01/2024. Pt is not immunosuppressed. Patient is first eligible for COVID: Recovered evaluation on 05/11/2024. Please reach out to Infection Prevention at that time to change isolation status if the provider feels criteria is met. Ronit Garcia N.Patrick. Patient Covid Recovered on 05/16/2024. Patient had Covid-19 infection 05/03/2024. 05/19/2024 05/26/2024 05/28/2024 6:45 AM CORONER COVID: Suspected 05/26/2024 05/26/2024 05/26/2024 7:46 PM CORONER Influenza, adult 05/26/2024 05/26/2024 06/02/2024 3:05 AM CORONER documented as of this encounter Care Teams Boat Ride Operator Relationship Specialty Start Date End Date Morgan Mercado MD PCP - General 06/25/16 Brisa Lowe MD Consulting Physician Cardiology 08/26/21 Aamir Thakkar MD [address] [place] [address] Consulting Physician Nephrology 05/15/22 Rodolfo Berman MD [address] [facility] [address] [place] [address] Surgeon Surgery 09/02/22 documented as of this encounter
--- OUTSIDE RECORDS SUMMARY | 2025-01-23 17:13 | XMS_ITS | Patient Health Record ---
Author Organization [facility] Address [address] [place], [place] [id number] Care Team Providers Care Brim Setter Name Role Phone Morgan Mercado Primary Care Provider Regino Engel Unavailable [phone] Allergies No Known Allergies Reason For Referral [...] MCG TAKE 1 CAPSULE BY MOUTH EVERY DAY; Duration: 90 Active Gemfibrozil 600 MG 1 tablet [...] MG TAKE 1 TABLET BY MOUTH EVERY DAY; Duration: 90 Active Simvastatin 10 MG 1 tablet in the evening Orally Once a day; Duration: 30 day(s) Active Glimepiride 4 MG 1 [...] Status W/U Status Risk Notes Problem Hypertension (25269022) hypertension (401.9) Active confirmed Problem Chronic kidney disease stage 3 (disorder) (011221853) Chronic kidney disease, Stage III (moderate) (585.3) Active confirmed Problem Chronic kidney disease stage 3 (disorder) (837932860) Chronic kidney disease, stage 3 (moderate) (N18.3) Active confirmed Problem Essential hypertension (38573523) Essential (primary) hypertension (401.9) Active confirmed Problem Chronic kidney disease stage 1 (626543592) Chronic kidney disease, stage 1 (N18.1) Active confirmed Problem Vitamin D deficiency (90778335) Vitamin D deficiency, unspecified (E55.9) Active confirmed Problem Congestive heart failure (92011573) Congestive heart failure (I50.9) Active confirmed Problem Atrial fibrillation (93175540) Atrial fibrillation (I48.91) Active confirmed Problem Chronic kidney disease stage 3 (disorder) (035705904) Chronic kidney disease, stage III (moderate) (N18.3) Active confirmed Problem Diabetic renal disease (333577580) Type 2 diabetes mellitus with diabetic chronic kidney disease (E11.22) Active confirmed Problem Secondary hyperparathyroidism of renal origin (85430386) Secondary hyperparathyroidism of renal origin (N25.81) Active confirmed Problem Gout (50745457) Gout (M10.9) Active confirmed Problem Hyperparathyroidism due to renal insufficiency (06598103) Secondary hyperparathyroidism, renal (N25.81) Active confirmed Problem Primary malignant neoplasm of kidney (23707549) 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) Active confirmed Problem Chronic kidney disease stage 3 (disorder) (575391583) Chronic kidney disease, stage 3 unspecified (N18.30) Active confirmed Problem Chronic kidney disease stage 3 (disorder) (690571922) Stage 3 chronic kidney disease, unspecified whether [...] Coverage End Date Medicare [place] [address] [address] [place] [address] [id number] Lenhco Carranza Self - patient is the insured Medical (General) History Medical History History ICD Code ckd baseline creatine 1.5 gout hypertension Vitamin d deficiency sleep apnea malaria in [place] bulging disk neuropathy chronic back apin atrial fibrillation aortic anneurysm CAD: cardiac cath at [facility] no si gnificant CAD CMP: has AICD DM Surgical History Surgery Date(Month/Year) laminectomy appendectomy
--- OUTSIDE RECORDS SUMMARY | 2025-01-23 17:13 | XMS_ITS | Encounter Summary ---
Author Organization [facility] Address [address] [place] [address] Care Team Providers Care Research Tech Name Role Phone Morgan Mercado MD Primary Care Provider + [phone] Morgan Mercado MD Primary Care Provider + [phone] Brisa Lowe MD Unavailable [phone] Aamir Thakkar MD Unavailable [phone] Rodolfo Berman MD Unavailable [phone] Encounter Details Date Type Department Care Team (Late st Contact Info) Description 05/06/2016 Orders Only [facility] ProviderValeri MD [facility] [place] [address] Social History Tobacco Use Types Packs/Day Years Used Date Smoking Tobacco: Light Smoker Comments:Smoking History Pac ks/day: 0.25 Packs Alcohol Use Standard Drinks/Week Comments No 0 (1 standard drink = 0.6 oz pur e alcohol) Sex and Gender Information Value Date Recorded Sex Assigned at Not on file Legal Sex Male 10:59 AM DAUB COLOR MIXER Gender Identity Not on file Sexual Orientation [...] COVID: Suspected 05/03/2024 05/03/2024 05/03/2024 5:42 PM DAUB COLOR MIXER COVID19 Comment:S&S onset date 05/01/2024. Pt is [...] COVID: Suspected 05/19/2024 05/19/2024 05/19/2024 4:14 PM DAUB COLOR MIXER COVID19 Comment:S&S onset date 05/01/2024. Pt is not immunosuppressed. Patient is first eligible for COVID: Recovered evaluation on 05/11/2024. Please reach out to Infection Prevention at that time to change isolation status if the provider feels criteria is met. Ronit Garcia N.Patrick. Patient Covid Recovered on 05/16/2024. Patient had Covid-19 infection 05/03/2024. 05/19/2024 05/26/2024 05/28/2024 6:45 AM DAUB COLOR MIXER COVID: Suspected 05/26/2024 05/26/2024 05/26/2024 7:46 PM DAUB COLOR MIXER Influenza, adult 05/26/2024 05/26/2024 06/02/2024 3:05 AM DAUB COLOR MIXER documented as of this encounter Care Teams Research Tech Relationship Specialty Start Date End Date Morgan Mercado MD PCP - General 06/25/16 Morgan Mercado MD PCP - General 01/26/11 06/24/16 Brisa Lowe MD Consulting Physician Cardiology 08/26/21 Aamir Thakkar MD [address] [place] [address] Consulting Physician Nephrology 05/15/22 Rodolfo Berman MD [address] [place] [address] Surgeon Surgery 09/02/22 documented as of this encounter
--- OUTSIDE RECORDS SUMMARY | 2025-01-23 17:13 | XMS_ITS | Encounter Summary ---
Author Organization [facility] Address [address] [place] [address] Care Team Providers Care Hematology Nurse Name Role Phone Morgan Mercado MD Primary Care Provider [phone] Encounter Details Date Type Department Care Team (Late st Contact Info) Description 04/06/2006 Emergency [facility] Carlos Rinaldi, DO [address] [place] [address] Er, Authorized P NO ADDRESS ON FILE Other Acute Postoperative Pain (Primary Dx); Pain in Soft Tissues of Limb; Abn React-Plast Surg NEC; Unspecified Place of Occurrence; Unspecified Essential Hypertension; Unspecified Hypothyroidism Social History Tobacco Use Types Packs/Day Years Used Date Smoking Tobacco: Never Assessed Sex and Gender Information Value Date Recorded Sex Assigned at Not on file Legal Sex Male 4:23 AM QUALITY COMPLIANCE CONSULTANT Gender Identity Not on file Sexual Orientation Not on file documented as of this encounter Plan of Treatment Not on file documented as of this encounter Procedures Procedure Name Priority Date/Time Associated Diagnosis Comments CBC WITH DIFFERENTIAL Routine 04/06/2006 11:50 AM QUALITY COMPLIANCE CONSULTANT CBC WITH DIFFERENTIAL Routine 04/06/2006 11:50 AM QUALITY COMPLIANCE CONSULTANT C-REACTIVE PROTEIN Routine 04/06/2006 11 :50 AM QUALITY COMPLIANCE CONSULTANT COMPREHENSIVE METABOLIC PANEL Routine 04/06/2006 11:50 AM QUALITY COMPLIANCE CONSULTANT documented in this encounter Results * CBC WITH DIFFERENTIAL (04/06/2006 11:50 AM QUALITY COMPLIANCE CONSULTANT) NEUTROPHILS 65 45 - 70 % INTERFAC [...] K/uL INTERFACE SYSTEM 04/06/2006 11:5 0 AM QUALITY COMPLIANCE CONSULTANT Carlos Rinaldi DO HEMATOLOGY ORDERABLES Edited Performing Organization Address City/[facility] Co de Phone Number INTERFACE SYSTEM Refer to clinic/hospital department * (ABNORMAL) CBC WITH DIFFERENTIAL (04/06/2006 11:50 AM QUALITY COMPLIANCE CONSULTANT) WBC 5.9 4.0 - 9.8 K/uL INTERFACE [...] fL INTERFACE SYSTEM 04/06/2006 11:5 0 AM QUALITY COMPLIANCE CONSULTANT Carlos Rinaldi DO HEMATOLOGY ORDERABLES Edited Performing Organization Address City/[facility]/ZIP Co de Phone Number INTERFACE SYSTEM Refer to clinic/hospital department * (ABNORMAL) C-REACTIVE PROTEIN (04/06/2006 11:50 AM QUALITY COMPLIANCE CONSULTANT) CRP 2.1(H) 0.0 - 0.8 mg/dL INTERFACE SYSTEM 04/06/2006 11:5 0 AM QUALITY COMPLIANCE CONSULTANT Carlos Rinaldi DO CHEMISTRY ORDERABLES Edited Performing Organization Address City/[facility]/ZIP Co de Phone Number INTERFACE SYSTEM Refer to clinic/hospital department * (ABNORMAL) COMPREHENSIVE METABOLIC PANEL (04/06/2006 11:50 AM QUALITY COMPLIANCE CONSULTANT) GLUCOSE 81 65 - 99 mg/dL INTERFACE [...] and non- Americans is available on the [facility] Intranet at: [email or web address] Select: Lab Policies and Procedures Select: Reference Ranges - GFR 04/06/2006 11:5 0 AM QUALITY COMPLIANCE CONSULTANT Carlos Rinaldi DO CHEMISTRY ORDERABLES Edited INTERFACE SYSTEM Refer to clinic/hospital department documented in this encounter Visit Diagnoses Diagnosis Other acute postoperative pain- Primary Pain in limb Other restorative surgery causing abnormal patient reaction, or later complication, without mention of misadventure at time of operation Unspecified place of occurrence Unspecified essential hypertension Unspecified hypothyroidism documented in this encounter Care Teams Hematology Nurse Relationship Specialty Start Date End Date Morgan Mercado MD [facility] [place] [address] PCP - General Family Practice 11/02/16 documented as of this encounter
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
--- OUTSIDE RECORDS SUMMARY | 2025-01-23 17:13 | XMS_ITS | Encounter Summary ---
Author Organization [employer] Address [address] [place] [address] Care Team Providers Care Brim Cutter Name Role Phone Morgan Mercado MD Primary Care Provider [phone] Encounter Details Date Type Department Care Team (Late st Contact Info) Description 03/18/2006 Outpatient Historical Division of Neurology [address] [address] Lencho Ibanez MD [address] [facility] [address] [place] [address] Social History Tobacco Use Types Packs/Day Years Used Date Smoking Tobacco: Never Assessed Sex and Gender Information Value Date Recorded Sex Assigned at Not on file Legal Sex Male 4:23 AM DYNAMO REPAIRER Gender Identity Not on file Sexual Orientation Not on file documented as of this encounter Plan of Treatment Not on file documented as of this encounter Visit Diagnoses Not on filedocumented in this encounter Care Teams Brim Cutter Relationship Specialty Start Date End Date Morgan Mercado MD [facility] [place] [place] [address] PCP - General Family Practice 11/02/16 documented as of this encounter
--- OUTSIDE RECORDS SUMMARY | 2025-01-23 17:13 | XMS_ITS | Encounter Summary ---
Author Organization [facility] Address [address] [facility] [address] [place] [address] Care Team Providers Care Hangar Attendant Name Role Phone Morgan Mercado MD Primary Care Provider + [phone] Morgan Mercado MD Primary Care Provider + [phone] Brisa Lowe MD Unavailable [phone] Aamir Thakkar MD Unavailable [phone] Rodolfo Berman MD Unavailable [phone] Encounter Details Date Type Department Care Team (Late st Contact Info) Description 05/04/2016 Orders Only [facility] ProviderValeri MD [facility] [place] [address] Social History Tobacco Use Types Packs/Day Years Used Date Smoking Tobacco: Light Smoker Comments:Smoking History Pac ks/day: 0.25 Packs Alcohol Use Standard Drinks/Week Comments No 0 (1 standard drink = 0.6 oz pur e alcohol) Sex and Gender Information Value Date Recorded Sex Assigned at Not on file Legal Sex Male 10:59 AM CLAMMER Gender Identity Not on file Sexual Orientation [...] COVID: Suspected 05/03/2024 05/03/2024 05/03/2024 5:42 PM CLAMMER COVID19 Comment:S&S onset date 05/01/2024. Pt is [...] COVID: Suspected 05/19/2024 05/19/2024 05/19/2024 4:14 PM CLAMMER COVID19 Comment:S&S onset date 05/01/2024. Pt is not immunosuppressed. Patient is first eligible for COVID: Recovered evaluation on 05/11/2024. Please reach out to Infection Prevention at that time to change isolation status if the provider feels criteria is met. Ronit Garcia N.Patrick. Patient Covid Recovered on 05/16/2024. Patient had Covid-19 infection 05/03/2024. 05/19/2024 05/26/2024 05/28/2024 6:45 AM CLAMMER COVID: Suspected 05/26/2024 05/26/2024 05/26/2024 7:46 PM CLAMMER Influenza, adult 05/26/2024 05/26/2024 06/02/2024 3:05 AM CLAMMER documented as of this encounter Care Teams Hangar Attendant Relationship Specialty Start Date End Date Morgan Mercado MD PCP - General 06/25/16 Morgan Mercado MD PCP - General 01/26/11 06/24/16 Brisa Lowe MD Consulting Physician Cardiology 08/26/21 Aamir Thakkar MD [address] [facility] [address] [place] [address] Consulting Physician Nephrology 05/15/22 Rodolfo Berman MD [address] [facility] [address] [facility] [address] [place] [address] Surgeon Surgery 09/02/22 documented as of this encounter
--- OUTSIDE RECORDS SUMMARY | 2025-01-23 17:13 | XMS_ITS | Encounter Summary ---
Author Organization [facility] Address [address] [place] [address] Care Team Providers Care Cat Sitter Name Role Phone Morgan Mercado MD Primary Care Provider [phone] Encounter Details Date Type Department Care Team (Latest Contact Info) Description 03/14/2006 Inpatient Historical HIS PATIENT IN A BED Wicho Gomez MD [address] [place] [phone] Scar Condition and Fibrosis of Skin [...] on file Legal Sex Male 4:23 AM CAMPAIGN ASSOCIATE Gender Identity Not on file Sexual Orientation Not on file documented as of this encounter Plan of Treatment Not on file documented as of this encounter Procedures Procedure Name Priority Date/Time Associated Diagnosis Comments CBC WITH DIFFERENTIAL Routine 03/22/2006 3:20 AM CAMPAIGN ASSOCIATE CBC WITH DIFFERENTIAL Routine 03/22/2006 3:20 AM CAMPAIGN ASSOCIATE PHOSPHORUS Routine 03/22/2006 3:20 AM CAMPAIGN ASSOCIATE MAGNESIUM LEVEL Routine 03/22/2006 3:20 AM CAMPAIGN ASSOCIATE CALCIUM IONIZED Routine 03/22/2006 3:20 AM CAMPAIGN ASSOCIATE BASIC METABOLIC PANEL Routine 03/22/2006 3:20 AM CAMPAIGN ASSOCIATE CBC WITH DIFFERENTIAL Routine 03/20/2006 3:10 AM CAMPAIGN ASSOCIATE CBC WITH DIFFERENTIAL Routine 03/20/2006 3:10 AM CAMPAIGN ASSOCIATE PHOSPHORUS Routine 03/20/2006 3:10 AM CAMPAIGN ASSOCIATE MAGNESIUM LEVEL Routine 03/20/2006 3:10 AM CAMPAIGN ASSOCIATE CALCIUM IONIZED Routine 03/20/2006 3:10 AM CAMPAIGN ASSOCIATE BASIC METABOLIC PANEL Routine 03/20/2006 3:10 AM CAMPAIGN ASSOCIATE POC GLUCOSE Routine 03/18/2006 11:16 AM CAMPAIGN ASSOCIATE POC GLUCOSE Routine 03/18/2006 5:02 AM CAMPAIGN ASSOCIATE CBC WITH DIFFERENTIAL Routine 03/18/2006 3:35 AM CAMPAIGN ASSOCIATE CBC WITH DIFFERENTIAL Routine 03/18/2006 3:35 AM CAMPAIGN ASSOCIATE PHOSPHORUS Routine 03/18/2006 3:35 AM CAMPAIGN ASSOCIATE MAGNESIUM LEVEL Routine 03/18/2006 3:35 AM CAMPAIGN ASSOCIATE CALCIUM IONIZED Routine 03/18/2006 3:35 AM CAMPAIGN ASSOCIATE BASIC METABOLIC PANEL Routine 03/18/2006 3:35 AM CAMPAIGN ASSOCIATE POC GLUCOSE Routine 03/17/2006 7:58 PM CAMPAIGN ASSOCIATE POC GLUCOSE Routine 03/17/2006 5:31 PM CAMPAIGN ASSOCIATE POC GLUCOSE Routine 03/17/2006 11:51 AM CAMPAIGN ASSOCIATE POC GLUCOSE Routine 03/17/2006 5:59 AM CAMPAIGN ASSOCIATE CBC WITH DIFFERENTIAL Routine 03/17/2006 4:10 AM CAMPAIGN ASSOCIATE CBC WITH DIFFERENTIAL Routine 03/17/2006 4:10 AM CAMPAIGN ASSOCIATE PHOSPHORUS Routine 03/17/2006 4:10 AM CAMPAIGN ASSOCIATE MAGNESIUM LEVEL Routine 03/17/2006 4:10 AM CAMPAIGN ASSOCIATE CALCIUM IONIZED Routine 03/17/2006 4:10 AM CAMPAIGN ASSOCIATE BASIC METABOLIC PANEL Routine 03/17/2006 4:10 AM CAMPAIGN ASSOCIATE URINALYSIS W/REFLEX MICROSCOPIC Routine 03/16/2006 9:34 PM CAMPAIGN ASSOCIATE POC GLUCOSE Routine 03/16/2006 5:17 PM CAMPAIGN ASSOCIATE CBC WITH DIFFERENTIAL Routine 03/16/2006 3:15 AM CAMPAIGN ASSOCIATE CBC WITH DIFFERENTIAL Routine 03/16/2006 3:15 AM CAMPAIGN ASSOCIATE COMPREHENSIVE METABOLIC PANEL Routine 03/16/2006 3:15 AM CAMPAIGN ASSOCIATE POC GLUCOSE Routine 03/15/2006 4:16 PM CAMPAIGN ASSOCIATE CBC WITH DIFFERENTIAL Routine 03/15/2006 3:50 AM CAMPAIGN ASSOCIATE CBC WITH DIFFERENTIAL Routine 03/15/2006 3:50 AM CAMPAIGN ASSOCIATE PHOSPHORUS Routine 03/15/2006 3:50 AM CAMPAIGN ASSOCIATE MAGNESIUM LEVEL Routine 03/15/2006 3:50 AM CAMPAIGN ASSOCIATE CALCIUM IONIZED Routine 03/15/2006 3:50 AM CAMPAIGN ASSOCIATE BASIC METABOLIC PANEL Routine 03/15/2006 3:50 AM CAMPAIGN ASSOCIATE POC GLUCOSE Routine 03/14/2006 6:01 PM CAMPAIGN ASSOCIATE POC, BLOOD GASES Routine 03/14/2006 9:21 AM CAMPAIGN ASSOCIATE documented in this encounter Results * CBC WITH DIFFERENTIAL (03/22/2006 3:20 AM CAMPAIGN ASSOCIATE) NEUTROPHILS 69 45 - 70 % INTERFAC [...] 0.20 K/uL INTERFACE SYSTEM 03/22/2006 3:20 AM CAMPAIGN ASSOCIATE Romie Laughlin MD HEMATOLOGY ORDERABLES Final Result Performing Organization Address [facility] de Phone Number INTERFACE SYSTEM Refer to clinic/hospital department * (ABNORMAL) CBC WITH DIFFERENTIAL (03/22/2006 3:20 AM CAMPAIGN ASSOCIATE) WBC 9.4 4.0 - 9.8 K/uL INTERFACE [...] 12.4 fL INTERFACE SYSTEM 03/22/2006 3:20 AM CAMPAIGN ASSOCIATE Romie Laughlin MD HEMATOLOGY ORDERABLES Final Result Performing Organization Address [facility] Phone Number INTERFACE SYSTEM Refer to clinic/hospital department * (ABNORMAL) PHOSPHORUS (03/22/2006 3:20 AM CAMPAIGN ASSOCIATE) PHOSPHORUS 5.9(H) 2.5 - 4.5 mg/dL INTERFACE SYSTEM 03/22/2006 3:20 AM CAMPAIGN ASSOCIATE Romie Laughlin MD CHEMISTRY ORDERABLES Final R esult Performing Organization Address [facility] Phone Number INTERFACE SYSTEM Refer to clinic/hospital department * MAGNESIUM LEVEL (03/22/2006 3:20 AM CAMPAIGN ASSOCIATE) MAGNESIUM 2.2 1.5 - 2.5 mg/dL INTERFACE SYSTEM 03/22/2006 3:20 AM CAMPAIGN ASSOCIATE Romie Laughlin MD CHEMISTRY ORDERABLES Final R esult Performing Organization Address [facility] Phone Number INTERFACE SYSTEM Refer to clinic/hospital department * (ABNORMAL) CALCIUM IONIZED (03/22/2006 3:20 AM CAMPAIGN ASSOCIATE) CALCIUM IONIZED 4.72(L) 4.76 - 5.16 mg/dL INTERFACE SYSTEM 03/22/2006 3:20 AM CAMPAIGN ASSOCIATE Romie Laughlin MD CHEMISTRY ORDERABLES Final R esult Performing Organization Address [facility] Phone Number INTERFACE SYSTEM Refer to clinic/hospital department * (ABNORMAL) BASIC METABOLIC PANEL (03/22/2006 3:20 AM CAMPAIGN ASSOCIATE) GLUCOSE 101(H) 65 - 99 mg/dL INTERFACE [...] [place] at: [email or web address] Select: Lab Policies and Procedures Select: Reference Ranges - GFR 03/22/2006 3:20 AM CAMPAIGN ASSOCIATE Romie Laughlin MD CHEMISTRY ORDERABLES Final R esult Performing Organization Address [facility] de Phone Number INTERFACE SYSTEM Refer to clinic/hospital department * CBC WITH DIFFERENTIAL (03/20/2006 3:10 AM CAMPAIGN ASSOCIATE) NEUTROPHILS 66 45 - 70 % INTERFAC [...] 0.20 K/uL INTERFACE SYSTEM 03/20/2006 3:10 AM CAMPAIGN ASSOCIATE Romie Laughlin MD HEMATOLOGY ORDERABLES Final Result Performing Organization Address [facility] Phone Number INTERFACE SYSTEM Refer to clinic/hospital department * (ABNORMAL) CBC WITH DIFFERENTIAL (03/20/2006 3:10 AM CAMPAIGN ASSOCIATE) WBC 7.6 4.0 - 9.8 K/uL INTERFACE [...] 12.4 fL INTERFACE SYSTEM 03/20/2006 3:10 AM CAMPAIGN ASSOCIATE Romie Laughlin MD HEMATOLOGY ORDERABLES Final Result Performing Organization Address [facility] Phone Number INTERFACE SYSTEM Refer to clinic/hospital department * (ABNORMAL) PHOSPHORUS (03/20/2006 3:10 AM CAMPAIGN ASSOCIATE) PHOSPHORUS 5.5(H) 2.5 - 4.5 mg/dL INTERFACE SYSTEM 03/20/2006 3:10 AM CAMPAIGN ASSOCIATE Romie Laughlin MD CHEMISTRY ORDERABLES Final R esult Performing Organization Address [facility] Phone Number INTERFACE SYSTEM Refer to clinic/hospital department * MAGNESIUM LEVEL (03/20/2006 3:10 AM CAMPAIGN ASSOCIATE) MAGNESIUM 2.0 1.5 - 2.5 mg/dL INTERFACE SYSTEM 03/20/2006 3:10 AM CAMPAIGN ASSOCIATE Romie Laughlin MD CHEMISTRY ORDERABLES Final R esult Performing Organization Address [facility] Phone Number INTERFACE SYSTEM Refer to clinic/hospital department * (ABNORMAL) CALCIUM IONIZED (03/20/2006 3:10 AM CAMPAIGN ASSOCIATE) CALCIUM IONIZED 4.52(L) 4.76 - 5.16 mg/dL INTERFACE SYSTEM 03/20/2006 3:10 AM CAMPAIGN ASSOCIATE Romie Laughlin MD CHEMISTRY ORDERABLES Final R esult INTERFACE SYSTEM Refer to clinic/hospital department * (ABNORMAL) BASIC METABOLIC PANEL (03/20/2006 3:10 AM CAMPAIGN ASSOCIATE) GLUCOSE 82 65 - 99 mg/dL INTERFACE [...] [place] at: [email or web address] Select: Lab Policies and Procedures Select: Reference Ranges - GFR 03/20/2006 3:10 AM CAMPAIGN ASSOCIATE Romie Laughlin MD CHEMISTRY ORDERABLES Final R esult Performing Organization Address [facility] de Phone Number INTERFACE SYSTEM Refer to clinic/hospital department * (ABNORMAL) POC GLUCOSE (03/18/2006 11:16 AM CAMPAIGN ASSOCIATE) GLUCOSE POC 116(H) 65 - 99 mg/dL INTERFACE SYSTEM 03/18/2006 11:1 6 AM CAMPAIGN ASSOCIATE Wicho Gomez MD POINT OF CARE TESTING Final R esult INTERFACE SYSTEM Refer to clinic/hospital department * (ABNORMAL) POC GLUCOSE (03/18/2006 5:02 AM CAMPAIGN ASSOCIATE) GLUCOSE POC 100(H) 65 - 99 mg/dL INTERFACE SYSTEM 03/18/2006 5:02 AM CAMPAIGN ASSOCIATE Wicho Gomez MD POINT OF CARE TESTING Final R [facility] Performing Organization Address [place]/[facility] de Phone Number INTERFACE SYSTEM Refer to clinic/hospital department * (ABNORMAL) CBC WITH DIFFERENTIAL (03/18/2006 3:35 AM CAMPAIGN ASSOCIATE) NEUTROPHILS 71(H) 45 - 70 % INTERFAC [...] 0.20 K/uL INTERFACE SYSTEM 03/18/2006 3:35 AM CAMPAIGN ASSOCIATE Wicho Gomez MD HEMATOLOGY ORDERABLES Final R esult Performing Organization Address [facility] de Phone Number INTERFACE SYSTEM Refer to clinic/hospital department * (ABNORMAL) CBC WITH DIFFERENTIAL (03/18/2006 3:35 AM CAMPAIGN ASSOCIATE) WBC 8.8 4.0 - 9.8 K/uL INTERFACE [...] 12.4 fL INTERFACE SYSTEM 03/18/2006 3:35 AM CAMPAIGN ASSOCIATE us Wicho Gomez MD HEMATOLOGY ORDERABLES Final R esult Performing Organization Address [facility] Phone Number INTERFACE SYSTEM Refer to clinic/hospital department * (ABNORMAL) PHOSPHORUS (03/18/2006 3:35 AM CAMPAIGN ASSOCIATE) PHOSPHORUS 5.3(H) 2.5 - 4.5 mg/dL INTERFACE SYSTEM 03/18/2006 3:35 AM CAMPAIGN ASSOCIATE us Wicho Gomez MD CHEMISTRY ORDERABLES Final Re sult Performing Organization Address [facility] INTERFACE SYSTEM Refer to clinic/hospital department * MAGNESIUM LEVEL (03/18/2006 3:35 AM CAMPAIGN ASSOCIATE) MAGNESIUM 2.3 1.5 - 2.5 mg/dL INTERFACE SYSTEM 03/18/2006 3:35 AM CAMPAIGN ASSOCIATE us Wicho Gomez MD CHEMISTRY ORDERABLES Final Re sult Performing Organization Address [facility] INTERFACE SYSTEM Refer to clinic/hospital department * (ABNORMAL) CALCIUM IONIZED (03/18/2006 3:35 AM CAMPAIGN ASSOCIATE) CALCIUM IONIZED 4.68(L) 4.76 - 5.16 mg/dL INTERFACE SYSTEM 03/18/2006 3:35 AM CAMPAIGN ASSOCIATE us Wicho Gomez MD CHEMISTRY ORDERABLES Final Re sult Performing Organization Address [facility] Phone Number INTERFACE SYSTEM Refer to clinic/hospital department * (ABNORMAL) BASIC METABOLIC PANEL (03/18/2006 3:35 AM CAMPAIGN ASSOCIATE) GLUCOSE 84 65 - 99 mg/dL INTERFACE [...] [place] at: [email or web address] Select: Lab Policies and Procedures Select: Reference Ranges - GFR 03/18/2006 3:35 AM CAMPAIGN ASSOCIATE us Wicho Gomez MD CHEMISTRY ORDERABLES Final Re sult Performing Organization Address [facility] de Phone Number INTERFACE SYSTEM Refer to clinic/hospital department * (ABNORMAL) POC GLUCOSE (03/17/2006 7:58 PM CAMPAIGN ASSOCIATE) GLUCOSE POC 135(H) 65 - 99 mg/dL INTERFACE SYSTEM 03/17/2006 7:58 PM CAMPAIGN ASSOCIATE us Wicho Gomez MD POINT OF CARE TESTING Final R esult Performing Organization Address [facility] Co de Phone Number INTERFACE SYSTEM Refer to clinic/hospital department * (ABNORMAL) POC GLUCOSE (03/17/2006 5:31 PM CAMPAIGN ASSOCIATE) GLUCOSE POC 100(H) 65 - 99 mg/dL INTERFACE SYSTEM 03/17/2006 5:31 PM CAMPAIGN ASSOCIATE us Wicho Gomez MD POINT OF CARE TESTING Final R esult Performing Organization Address [facility] Co de Phone Number INTERFACE SYSTEM Refer to clinic/hospital department * (ABNORMAL) POC GLUCOSE (03/17/2006 11:51 AM CAMPAIGN ASSOCIATE) GLUCOSE POC 140(H) 65 - 99 mg/dL INTERFACE SYSTEM 03/17/2006 11:5 1 AM CAMPAIGN ASSOCIATE Wicho Gomez MD POINT OF CARE TESTING Final R esult Performing Organization Address [place]/[facility] de Phone Number INTERFACE SYSTEM Refer to clinic/hospital department * POC GLUCOSE (03/17/2006 5:59 AM CAMPAIGN ASSOCIATE) Pathologist [facility] GLUCOSE POC 95 65 - 99 mg/dL INTERFACE SYSTEM 03/17/2006 5:59 AM CAMPAIGN ASSOCIATE Wicho Gomez MD POINT OF CARE TESTING Final R esult Performing Organization Address [place]/[facility] de Phone Number INTERFACE SYSTEM Refer to clinic/hospital department * (ABNORMAL) CBC WITH DIFFERENTIAL (03/17/2006 4:10 AM CAMPAIGN ASSOCIATE) Pathologist [facility] NEUTROPHIL ABSOLUTE 6.29 1.90 - 7.00 K/uL [...] Slight INTERFA CE SYSTEM 03/17/2006 4:10 AM CAMPAIGN ASSOCIATE Wicho Gomez MD HEMATOLOGY ORDERABLES Final R krystalult Performing Organization Address [facility] Co de Phone Number INTERFACE SYSTEM Refer to clinic/hospital department * (ABNORMAL) CBC WITH DIFFERENTIAL (03/17/2006 4:10 AM CAMPAIGN ASSOCIATE) WBC 8.5 4.0 - 9.8 K/uL INTERFACE [...] 12.4 fL INTERFACE SYSTEM 03/17/2006 4:10 AM CAMPAIGN ASSOCIATE us Wicho Gomez MD HEMATOLOGY ORDERABLES Final R esult Performing Organization Address [facility] Phone Number INTERFACE SYSTEM Refer to clinic/hospital department * (ABNORMAL) PHOSPHORUS (03/17/2006 4:10 AM CAMPAIGN ASSOCIATE) PHOSPHORUS 4.7(H) 2.5 - 4.5 mg/dL INTERFACE SYSTEM 03/17/2006 4:10 AM CAMPAIGN ASSOCIATE us Wicho Gomez MD CHEMISTRY ORDERABLES Final Re sult Performing Organization Address [facility] Phone Number INTERFACE SYSTEM Refer to clinic/hospital department * MAGNESIUM LEVEL (03/17/2006 4:10 AM CAMPAIGN ASSOCIATE) MAGNESIUM 1.9 1.5 - 2.5 mg/dL INTERFACE SYSTEM 03/17/2006 4:10 AM CAMPAIGN ASSOCIATE us Wicho Gomez MD CHEMISTRY ORDERABLES Final Re sult Performing Organization Address [facility] Phone Number INTERFACE SYSTEM Refer to clinic/hospital department * (ABNORMAL) CALCIUM IONIZED (03/17/2006 4:10 AM CAMPAIGN ASSOCIATE) CALCIUM IONIZED 4.72(L) 4.76 - 5.16 mg/dL INTERFACE SYSTEM 03/17/2006 4:10 AM CAMPAIGN ASSOCIATE us Wicho Gomez MD CHEMISTRY ORDERABLES Final Re sult INTERFACE SYSTEM Refer to clinic/hospital department * (ABNORMAL) BASIC METABOLIC PANEL (03/17/2006 4:10 AM CAMPAIGN ASSOCIATE) GLUCOSE 83 65 - 99 mg/dL INTERFACE [...] [place] at: [email or web address] Select: Lab Policies and Procedures Select: Reference Ranges - GFR 03/17/2006 4:10 AM CAMPAIGN ASSOCIATE Wicho Gomez MD CHEMISTRY ORDERABLES Final Re sult Performing Organization Address [facility] Co de Phone Number INTERFACE SYSTEM Refer to clinic/hospital department * (ABNORMAL) URINALYSIS (03/16/2006 9:34 PM CAMPAIGN ASSOCIATE) COLOR UA Yellow INTERFACE SYSTEM CLARITY UA [...] 3 /HPF INTERFACE SYSTEM 03/16/2006 9:34 PM CAMPAIGN ASSOCIATE us Harshad Heller MD URINE ORDERABLES Final Result Performing Organization Address [facility] Phone Number INTERFACE SYSTEM Refer to clinic/hospital department * (ABNORMAL) POC GLUCOSE (03/16/2006 5:17 PM CAMPAIGN ASSOCIATE) GLUCOSE POC 189(H) 65 - 99 mg/dL INTERFACE SYSTEM 03/16/2006 5:17 PM CAMPAIGN ASSOCIATE us Wicho Gomez MD POINT OF CARE TESTING Final R esult Performing Organization Address [facility] Phone Number INTERFACE SYSTEM Refer to clinic/hospital department * CBC WITH DIFFERENTIAL (03/16/2006 3:15 AM CAMPAIGN ASSOCIATE) NEUTROPHILS 65 45 - 70 % INTERFAC [...] 0.20 K/uL INTERFACE SYSTEM 03/16/2006 3:15 AM CAMPAIGN ASSOCIATE us Romie Laughlin MD HEMATOLOGY ORDERABLES Final Result Performing Organization Address [facility] Phone Number INTERFACE SYSTEM Refer to clinic/hospital department * (ABNORMAL) CBC WITH DIFFERENTIAL (03/16/2006 3:15 AM CAMPAIGN ASSOCIATE) WBC 7.3 4.0 - 9.8 K/uL INTERFACE [...] 12.4 fL INTERFACE SYSTEM 03/16/2006 3:15 AM CAMPAIGN ASSOCIATE us Romie Laughlin MD HEMATOLOGY ORDERABLES Final Result INTERFACE SYSTEM Refer to clinic/hospital department * (ABNORMAL) COMPREHENSIVE METABOLIC PANEL (03/16/2006 3:15 AM CAMPAIGN ASSOCIATE) GLUCOSE 80 65 - 99 mg/dL INTERFACE [...] available on the [facility] Intranet at: [email or web address] Select: Lab Policies and Procedures Select: Reference Ranges - GFR 03/16/2006 3:15 AM CAMPAIGN ASSOCIATE Romie Laughlin MD CHEMISTRY ORDERABLES Final R esult Performing Organization Address [facility] de Phone Number INTERFACE SYSTEM Refer to clinic/hospital department * (ABNORMAL) POC GLUCOSE (03/15/2006 4:16 PM CAMPAIGN ASSOCIATE) GLUCOSE POC 135(H) 65 - 99 mg/dL INTERFACE SYSTEM 03/15/2006 4:16 PM CAMPAIGN ASSOCIATE Wicho Gomez MD POINT OF CARE TESTING Final R esult Performing Organization Address [facility] de Phone Number INTERFACE SYSTEM Refer to clinic/hospital department * CBC WITH DIFFERENTIAL (03/15/2006 3:50 AM CAMPAIGN ASSOCIATE) NEUTROPHILS 68 45 - 70 % INTERFAC [...] 0.20 K/uL INTERFACE SYSTEM 03/15/2006 3:50 AM CAMPAIGN ASSOCIATE Romie Laughlin MD HEMATOLOGY ORDERABLES Final Result Performing Organization Address [facility] de Phone Number INTERFACE SYSTEM Refer to clinic/hospital department * (ABNORMAL) CBC WITH DIFFERENTIAL (03/15/2006 3:50 AM CAMPAIGN ASSOCIATE) WBC 7.9 4.0 - 9.8 K/uL INTERFACE [...] 12.4 fL INTERFACE SYSTEM 03/15/2006 3:50 AM CAMPAIGN ASSOCIATE Romie Laughlin MD HEMATOLOGY ORDERABLES Final Result Performing Organization Address [facility] Phone Number INTERFACE SYSTEM Refer to clinic/hospital department * (ABNORMAL) PHOSPHORUS (03/15/2006 3:50 AM CAMPAIGN ASSOCIATE) PHOSPHORUS 5.3(H) 2.5 - 4.5 mg/dL INTERFACE SYSTEM 03/15/2006 3:50 AM CAMPAIGN ASSOCIATE Romie Laughlin MD CHEMISTRY ORDERABLES Final R esult Performing Organization Address [facility] Phone Number INTERFACE SYSTEM Refer to clinic/hospital department * MAGNESIUM LEVEL (03/15/2006 3:50 AM CAMPAIGN ASSOCIATE) MAGNESIUM 1.8 1.5 - 2.5 mg/dL INTERFACE SYSTEM 03/15/2006 3:50 AM CAMPAIGN ASSOCIATE Romie Laughlin MD CHEMISTRY ORDERABLES Final R esult Performing Organization Address [place]/[facility] de Phone Number INTERFACE SYSTEM Refer to clinic/hospital department * (ABNORMAL) CALCIUM IONIZED (03/15/2006 3:50 AM CAMPAIGN ASSOCIATE) CALCIUM IONIZED 4.28(L) 4.76 - 5.16 mg/dL INTERFACE SYSTEM 03/15/2006 3:50 AM CAMPAIGN ASSOCIATE Romie Laughlin MD CHEMISTRY ORDERABLES Final R esult Performing Organization Address [facility] Co de Phone Number INTERFACE SYSTEM Refer to clinic/hospital department * (ABNORMAL) BASIC METABOLIC PANEL (03/15/2006 3:50 AM CAMPAIGN ASSOCIATE) GLUCOSE 84 65 - 99 mg/dL INTERFACE [...] [place] at: [email or web address] Select: Lab Policies and Procedures Select: Reference Ranges - GFR 03/15/2006 3:50 AM CAMPAIGN ASSOCIATE Romie Laughlin MD CHEMISTRY ORDERABLES Final R esult INTERFACE SYSTEM Refer to clinic/hospital department * (ABNORMAL) POC GLUCOSE (03/14/2006 6:01 PM CAMPAIGN ASSOCIATE) GLUCOSE POC 114(H) 65 - 99 mg/dL INTERFACE SYSTEM 03/14/2006 6:01 PM CAMPAIGN ASSOCIATE Wicho Gomez MD POINT OF CARE TESTING Final R esult Performing Organization Address [facility] Co de Phone Number INTERFACE SYSTEM Refer to clinic/hospital department * (ABNORMAL) POC RT, BLOOD GASES (03/14/2006 9:21 AM CAMPAIGN ASSOCIATE) PH MVBG 7.41 7.32 - 7.43 INTERFAC [...] 48.0 % INTERFACE SYSTEM 03/14/2006 9:21 AM CAMPAIGN ASSOCIATE us Wicho Gomez MD CHEMISTRY ORDERABLES Final Re sult Performing Organization Address [facility] de Phone Number INTERFACE SYSTEM Refer [...] unspecified documented in this encounter Care Teams Cat Sitter Relationship Specialty Start Date End Date Morgan Mercado MD [address] [place] [phone] PCP - General Family Practice 11/02/16 documented as of this encounter
--- OUTSIDE RECORDS SUMMARY | 2025-01-23 17:13 | XMS_ITS | Clinical Summary ---
Author Organization [facility] Facility Address [address] [place] [id number] Care Team Providers Care Auto Collision Repair Instructor Name Role Phone Morgan Mercado MD Primary [...] mouth every night Active ergocalciferol 1.25 MG (84455 UT) capsule Take 50,000 Units by mouth [...] Encounters Date Type Department Care Team Description 01/22/2025 Orders Only [facility]. [address] [facility] [place] [address] Aamir Thakkar MD 01/15/2025 Orders Only [facility]. [address] [facility] [place] [phone] Aamir Thakkar MD 01/08/2025 Orders Only [facility]. [address] [facility] [place] [address] Aamir Thakkar MD 01/03/2025 Orders Only [facility]. [address] [facility] [place] [address] Aamir Thakkar MD 12/25/2024 Orders Only [facility]. [address] [facility] [place] [address] Aamir Thakkar MD 12/18/2024 Orders Only [facility]. [address] [facility] [place] [address] Aamir Thakkar MD 12/11/2024 Orders Only [facility]. [address] [facility] [place] [address] Aamir Thakkar MD 12/04/2024 Orders Only [facility]. [address] [facility] [place] [address] Aamir Thakkar MD 11/27/2024 Orders Only [facility]. [address] [facility] [address] [place] [address] Aamir Thakkar MD 11/22/2024 Documentation Only [facility]. [address] [facility] [address] [place] [address] Aamir Thakkar MD 11/20/2024 Orders Only [facility]. [address] [facility] [address] [place] [address] Aamir Thakkar MD 11/13/2024 Orders Only [facility]. [address] [facility] [address] [place] [address] Aamir Thakkar MD 11/06/2024 Orders Only [facility]. [address] [facility] [address] [place] [address] Aamir Thakkar MD 10/30/2024 Orders Only [facility]. [address] [facility] [address] [place] [address] Aamir Thakkar MD 10/23/2024 Orders Only [facility]. 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 FINANCE SPECIALIST Body Mass Index 29.47 05/31/2022 9:47 AM STUDENT FINANCE SPECIALIST Plan of Treatment Health Maintenance Due Date Last Done Comments Colorectal Cancer Screening: Annual FOBT 02/06/2000 Colorectal Cancer Screening: Colonoscopy 02/06/2000 Colorectal Cancer Screening: Sigmoidoscopy 02/06/2000 Pneumococcal Vaccine: 50+ Years (3 of 3 - PCV20 or PCV21) 07/14/2017 12/13/2016, 07/14/2012 Diabetes: Ophthalmology Exam 05/28/2022 Diabetes: Pedal Pulse Checked 05/28/2022 Diabetes: Sensory Foot Exam 05/28/2022 Diabetes: Visual Foot Exam 05/28/2022 Diabetes: Hemoglobin A1C 08/01/2024 025, 10/13/2022, 09/28/2022, Additional history exists Influenza Vaccine (#1) 2024 , 12/27/2023, 01/04/2023, Additional history exists Hepatitis B Vaccine Aged Out No longe r eligible based on patient's age to complete this topic Procedures Procedure Name Priority Date/Time Associated Diagnosis Comments HEMATOLOGY Routine 01/22/2025 HEMATOLOGY Routine 01/15/2025 HD KINETICS Routine 01/08/2025 POST CHEMISTRY Routine 01/08/2025 CHEMISTRY Routine 01/08/2025 HEMATOLOGY Routine 01/08/2025 HEMATOLOGY Routine 01/03/2025 HEMATOLOGY Routine 12/25/2024 HEMATOLOGY Routine 12/18/2024 HEMATOLOGY Routine 12/11/2024 HD KINETICS Routine 12/04/2024 CHEMISTRY Routine 12/04/2024 POST CHEMISTRY Routine 12/04/2024 HEMATOLOGY Routine 12/04/2024 HEMATOLOGY Routine 11/27/2024 HEMATOLOGY Routine 11/20/2024 HEMATOLOGY Routine 11/13/2024 HD KINETICS Routine 11/06/2024 CHEMISTRY Routine 11/06/2024 POST CHEMISTRY Routine 11/06/2024 CHEMISTRY Routine 11/06/2024 HEMATOLOGY Routine 11/06/2024 HEMATOLOGY Routine 10/30/2024 HEMATOLOGY Routine 10/23/2024 HEMOGLOBIN A1C Routine 10/13/2022 Type 2 diabetes mellitus with diabetic chronic kidney disease (HCC) from Last 3 Months or Most Recently Relevant to Health Maintenance Results * (ABNORMAL) HEMATOLOGY (01/22/2025) Only the most recent of14 resultswithin the time period is included. Hemoglobin 11.4(L) 14.0 - 18.0 g/dL [facility] Hemoglobin x 3 34.2(L) 42.0 - 54.0 % [facility] 01/22/2025 01/23/2025 12: 59 PM CDT Narrative [facility] - 01/23/2025 Unless otherwise specified, test(s) performed at: [facility], [address] [place] [id number] FOOTBALL COACH: Regino Arevalo M.D. For any questions, please call customer service at FREQUENCY:OTHER Resulting Agency Comment Specimen source: Blood us Aamir Thakkar MD LAB BLOOD ORDERABLES Final Res ult Performing Organization Address [facility] de Phone Number [facility] See order comments or contact performing lab Unknown, [place] * HD KINETICS (01/08/2025) Only the most recent of3 resultswithin the time period is included. % Urea Reduction 76 65 - 80 % [facility] 01/08/2025 01/10/2025 10: 35 AM CDT Narrative Resulting Agency Comment Specimen source: Plasma Aamir Thakkar MD LAB BLOOD ORDERABLES Final Res ult Performing Organization Address [facility] de Phone Number [facility] See order comments or contact performing lab Unknown, [place] * POST CHEMISTRY (01/08/2025) Only the most recent of3 resultswithin the time period is included. BUN Post Dialysis 15 6 - 19 mg/dL [facility] 01/08/2025 01/10/2025 10: 35 AM CDT Narrative [facility] - 01/10/2025 Unless otherwise specified, test(s) performed at: [facility], [address] [place] [id number] FOOTBALL COACH: Regino Arevalo M.D. For any questions, please call customer service at FREQUENCY:MONTHLY Resulting Agency Comment Specimen source: Plasma us Aamir Thakkar MD LAB BLOOD ORDERABLES Final Res ult Performing Organization Address [facility] de Phone Number [facility] See order comments or contact performing lab Unknown, [place] * (ABNORMAL) [facility] (01/08/2025) Only the most recent of4 resultswithin the time period is included. BUN 62(H) 6 - 19 mg/dL [facility] Creatinine 6.71(H) 0.60 - 1.30 mg/dL [facility] BUN/Creatinine Ratio 9.2(L) 10.0 - 20.0 [facility] Sodium 141 136 - 145 mEq/L [facility] Potassium 4.2 3.5 - 5.1 mEq/L [facility] Chloride 92(L) 96 - 108 mEq/L [facility] Bicarbonate (CO2) 34(H) 22 - 29 mEq/L [facility] Calcium 8.8 8.4 - 10.2 mg/dL [facility] Corrected Calcium 8.8 8.4 - 10.2 mg/dL [facility] Comment: Corrected Calcium is not equivalent to measured Ionized Calcium. Phosphorus 8.0(H) 2.6 - 4.5 mg/dL [facility] Calcium Phosphorus Product 70(H) 0 - 54 [facility] Calcium Phosporus Product, Cor 70(H) 0 - 54 [facility] Total Protein 6.3 6.0 - 8.5 g/dL [facility] Albumin 4.0 3.5 - 5.2 g/dL [facility] Globulin, Total 2.3 2.0 - 4.0 g/dL [facility] A/G Ratio 1.7 1.0 - 2.0 [facility] Glucose 142(H) 70 - 100 mg/dL [facility] Iron 59 45 - 160 mcg/dL [facility] UIBC 219 155 - 355 mcg/dL [facility] TIBC 278 185 - 515 mcg/dL [facility] Iron Saturation (TSat) 21 20 - 55 % [facility] 01/08/2025 01/10/2025 11: 58 AM CDT [facility]ative [facility]25 Unless otherwise specified, test(s) performed at: [facility], [address] [place] [address] FOOTBALL COACH: Regino Arevalo M.D. For any questions, please call customer service at FREQUENCY:MONTHLY Resulting Agency Comment Specimen source: Serum us Aamir Thakkar MD LAB BLOOD ORDERABLES Final Res ult [facility] See order comments or contact performing lab Unknown, [place] * Hemoglobin A1c (10/13/2022) Hemoglobin A1C 5.2 PRINT /EXTERNAL (NON-INTERFACE D LABS) Blood specimen (specimen) Venous blood / Unknown 10/13/2022 us Aamir Thakkar MD LAB BLOOD ORDERABLES Final Res ult PRINT/EXTERNAL (NON-INTERFACED LABS) from Last 3 Months or Most Recently Relevant to Health Maintenance Insurance Medicare Care Teams Auto Collision Repair Instructor Relationship Specialty Start Date End Date Morgan Mercado MD [address] [facility] [address] PCP - General Family Medicine 05/31/22
--- OUTSIDE RECORDS SUMMARY | 2025-01-23 17:13 | XMS_ITS | Encounter Summary ---
Author Organization [employer] Address 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
--- OUTSIDE RECORDS SUMMARY | 2025-01-23 17:14 | XMS_ITS | Encounter Summary ---
Author Organization [employer] Address 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); End Stage Renal Disease (CMS/[facility]); Urinary Tract Infection, Site not Specified; DM w/o Complication Type II (CMS/HCC); Unspecified Anemia Social History Tobacco Use Types Packs/Day Years Used Date Smoking Tobacco: Never Assessed Sex and Gender Information Value Date Recorded Sex Assigned at Not on file Legal Sex Male 4:23 AM PCT Gender Identity Not on file Sexual Orientation Not on file documented as of this encounter Plan of Treatment Not on file documented as of this encounter Procedures Procedure Name Priority Date/Time Associated Diagnosis Comments POC GLUCOSE Routine 03/04/2006 4:47 PM PCT POC GLUCOSE Routine 03/04/2006 12:07 PM PCT POC GLUCOSE Routine 03/04/2006 7:48 AM PCT POC GLUCOSE Routine 03/03/2006 5:15 PM PCT POC GLUCOSE Routine 03/03/2006 6:26 AM PCT PTT Routine 03/03/2006 6:00 AM PCT CBC WITH DIFFERENTIAL Routine 03/03/2006 5:00 AM PCT CBC WITH DIFFERENTIAL Routine 03/03/2006 5:00 AM PCT PHOSPHORUS Routine 03/03/2006 5:00 AM PCT MAGNESIUM LEVEL Routine 03/03/2006 5:00 AM PCT BASIC METABOLIC PANEL Routine 03/03/2006 5:00 AM PCT CKMB W/REFLEX CK Routine 03/02/2006 10:0 0 PM PCT TROPONIN (W/REFLEX CKMB/CK) Routine 03/02/2006 10:00 PM PCT CBC WITH DIFFERENTIAL Routine 03/02/2006 10:00 PM PCT CBC WITH DIFFERENTIAL Routine 03/02/2006 10:00 PM PCT PTT Routine 03/02/2006 10:00 PM PCT POC GLUCOSE Routine 03/02/2006 9:14 PM PCT POC GLUCOSE Routine 03/02/2006 5:08 PM PCT POC GLUCOSE Routine 03/02/2006 11:39 AM PCT PTT Routine 03/02/2006 11:17 AM PCT POC GLUCOSE Routine 03/02/2006 5:59 AM PCT CKMB W/REFLEX CK Routine 03/02/2006 5:45 AM PCT TROPONIN (W/REFLEX CKMB/CK) Routine 03/02/2006 5:45 AM PCT PT AND APTT Routine 03/02/2006 5:45 AM PCT CBC WITH DIFFERENTIAL Routine 03/02/2006 5:45 AM PCT CBC WITH DIFFERENTIAL Routine 03/02/2006 5:45 AM PCT CBC WITH DIFFERENTIAL Routine 03/02/2006 5:45 AM PCT PHOSPHORUS Routine 03/02/2006 5:45 AM PCT MAGNESIUM LEVEL Routine 03/02/2006 5:45 AM PCT BASIC METABOLIC PANEL Routine 03/02/2006 5:45 AM PCT documented in this encounter Results * (ABNORMAL) POC GLUCOSE (03/04/2006 4:47 PM PCT) GLUCOSE POC 118(H) 65 - 99 mg/dL INTERFACE SYSTEM Comment: 02/10/2006 Change in reference range to correspond to Main Lab reference range. 03/04/2006 4:47 PM PCT us Tim Batres MD POINT OF CARE TESTING Final Res ult Performing Organization Address [facility] Phone Number INTERFACE SYSTEM Refer to clinic/hospital department * (ABNORMAL) POC GLUCOSE (03/04/2006 12:07 PM PCT) GLUCOSE POC 126(H) 65 - 99 mg/dL INTERFACE SYSTEM Comment: 02/10/2006 Change in reference range to correspond to Main Lab reference range. 03/04/2006 12:0 7 PM PCT us Tim Batres MD POINT OF CARE TESTING Final Res ult Performing Organization Address [facility] de Phone Number INTERFACE SYSTEM Refer to clinic/hospital department * POC GLUCOSE (03/04/2006 7:48 AM PCT) GLUCOSE POC 85 65 - 99 mg/dL INTERFACE SYSTEM Comment: 02/10/2006 Change in reference range to correspond to Main Lab reference range. 03/04/2006 7:48 AM PCT us Tim Batres MD POINT OF CARE TESTING Final Res ult Performing Organization Address [facility] Phone Number INTERFACE SYSTEM Refer to clinic/hospital department * POC GLUCOSE (03/03/2006 5:15 PM PCT) GLUCOSE POC 90 65 - 99 mg/dL INTERFACE SYSTEM Comment: 02/10/2006 Change in reference range to correspond to Main Lab reference range. 03/03/2006 5:15 PM PCT Tim Batres MD POINT OF CARE TESTING Final Res ult Performing Organization Address [facility] Phone Number INTERFACE SYSTEM Refer to clinic/hospital department * POC GLUCOSE (03/03/2006 6:26 AM PCT) GLUCOSE POC 85 65 - 99 mg/dL INTERFACE SYSTEM Comment: 02/10/2006 Change in reference range to correspond to Main Lab reference range. 03/03/2006 6:26 AM PCT Tim Batres MD POINT OF CARE TESTING Final Res ult Performing Organization Address [facility] Phone Number INTERFACE SYSTEM Refer to clinic/hospital department * PTT (03/03/2006 6:00 AM PCT) PTT 31.5 24.4 - 36.4 Seconds INTERFACE SYSTEM Comment: PTT Therapeutic Range: Heparin Level PTT (seconds) <0.10 units/mL <53 0.10 - 0.30 units/mL 53 - 67 0.30 - 0.70 units/mL* 67 - 95* 0.70 - 1.00 units/mL 95 - 116 *corresponds to therapeutic range for unfractionated heparin 03/03/2006 6:00 AM PCT Socorro Santos MD HEMATOLOGY ORDERABLES Final Res ult Performing Organization Address [facility] Phone Number INTERFACE SYSTEM Refer to clinic/hospital department * CBC WITH DIFFERENTIAL (03/03/2006 5:00 AM PCT) NEUTROPHILS 70 45 - 70 % INTERFAC [...] 0.20 K/uL INTERFACE SYSTEM 03/03/2006 5:00 AM PCT Colten Polk MD HEMATOLOGY ORDERABLES Final R esult Performing Organization Address City/[facility] de Phone Number INTERFACE SYSTEM Refer to clinic/hospital department * (ABNORMAL) CBC WITH DIFFERENTIAL (03/03/2006 5:00 AM PCT) WBC 6.0 4.0 - 9.8 K/uL INTERFACE [...] 12.4 fL INTERFACE SYSTEM 03/03/2006 5:00 AM PCT Colten Polk MD HEMATOLOGY ORDERABLES Final R esult Performing Organization Address City/State/[facility] Co de Phone Number INTERFACE SYSTEM Refer to clinic/hospital department * PHOSPHORUS (03/03/2006 5:00 AM PCT) PHOSPHORUS 4.3 2.5 - 4.5 mg/dL INTERFACE SYSTEM 03/03/2006 5:00 AM PCT Colten Polk MD CHEMISTRY ORDERABLES Final Re sult Performing Organization Address [facility] Phone Number INTERFACE SYSTEM Refer to clinic/hospital department * MAGNESIUM LEVEL (03/03/2006 5:00 AM PCT) MAGNESIUM 1.7 1.5 - 2.5 mg/dL INTERFACE SYSTEM 03/03/2006 5:00 AM PCT Colten Polk MD CHEMISTRY ORDERABLES Final Re sult Performing Organization Address [facility] Phone Number INTERFACE SYSTEM Refer to clinic/hospital department * (ABNORMAL) BASIC METABOLIC PANEL (03/03/2006 5:00 AM PCT) GLUCOSE 81 65 - 99 mg/dL INTERFACE [...] is available on the [facility] Intranet at: [email or web address] Select: Lab Policies and Procedures Select: Reference Ranges - GFR 03/03/2006 5:00 AM PCT us Colten Polk MD CHEMISTRY ORDERABLES Final Re sult Performing Organization Address [facility] Phone Number INTERFACE SYSTEM Refer to clinic/hospital department * CKMB W/REFLEX CK (03/02/2006 10:00 PM PCT) CKMB 2.9 <=6.7 ng/mL INTERFACE SYSTEM CKMB INTERP Negative INTERFAC E SYSTEM 03/02/2006 10:0 0 PM PCT us Tim Batres MD CHEMISTRY ORDERABLES Final Resu lt Performing Organization Address [facility] Phone Number INTERFACE SYSTEM Refer to clinic/hospital department * (ABNORMAL) TROPONIN (W/REFLEX CKMB/CK) (03/02/2006 10:00 PM PCT) TROPONIN T 0.24(AA) <=0.03 ng/mL INTERFACE SYSTEM Comment:Persistent abnormal result TROPONIN T INTERP See Below INTERFACE SYSTEM Comment:Elevated Troponin-T, Consistent with Myocardial Injury 03/02/2006 10:0 0 PM PCT us Tim Batres MD CHEMISTRY ORDERABLES Final Resu lt Performing Organization Address [facility] Phone Number INTERFACE SYSTEM Refer to clinic/hospital department * CBC WITH DIFFERENTIAL (03/02/2006 10:00 PM PCT) Pathologist [facility] NEUTROPHILS 64 45 - 70 % INTERFAC [...] K/uL INTERFACE SYSTEM 03/02/2006 10:0 0 PM PCT us Tim Batres MD HEMATOLOGY ORDERABLES Final Res ult Performing Organization Address [facility] Phone Number INTERFACE SYSTEM Refer to clinic/hospital department * (ABNORMAL) CBC WITH DIFFERENTIAL (03/02/2006 10:00 PM PCT) WBC 7.2 4.0 - 9.8 K/uL INTERFACE [...] fL INTERFACE SYSTEM 03/02/2006 10:0 0 PM PCT us Tim Batres MD HEMATOLOGY ORDERABLES Final Res ult Performing Organization Address [facility] de Phone Number INTERFACE SYSTEM Refer to clinic/hospital department * (ABNORMAL) PTT (03/02/2006 10:00 PM PCT) Pathologist [facility] PTT >150.0(AA ) 24.4 - 36.4 Seconds [...] read back verified. 03/02/2006 10:0 0 PM PCT us Tim Batres MD HEMATOLOGY ORDERABLES Final Res ult Performing Organization Address City/[facility] Co de Phone Number INTERFACE SYSTEM Refer to clinic/hospital department * (ABNORMAL) POC GLUCOSE (03/02/2006 9:14 PM PCT) GLUCOSE POC 130(H) 65 - 99 mg/dL INTERFACE SYSTEM Comment: 02/10/2006 Change in reference range to correspond to Main Lab reference range. 03/02/2006 9:14 PM PCT us Tim Batres MD POINT OF CARE TESTING Final Res ult Performing Organization Address [facility] Phone Number INTERFACE SYSTEM Refer to clinic/hospital department * (ABNORMAL) POC GLUCOSE (03/02/2006 5:08 PM PCT) GLUCOSE POC 114(H) 65 - 99 mg/dL INTERFACE SYSTEM Comment: 02/10/2006 Change in reference range to correspond to Main Lab reference range. 03/02/2006 5:08 PM PCT us Tim Batres MD POINT OF CARE TESTING Final Res ult Performing Organization Address [facility] Phone Number INTERFACE SYSTEM Refer to clinic/hospital department * (ABNORMAL) POC GLUCOSE (03/02/2006 11:39 AM PCT) GLUCOSE POC 106(H) 65 - 99 mg/dL INTERFACE SYSTEM Comment: 02/10/2006 Change in reference range to correspond to Main Lab reference range. 03/02/2006 11:3 9 AM PCT us Tim Batres MD POINT OF CARE TESTING Final Res ult Performing Organization Address [facility] Phone Number INTERFACE SYSTEM Refer to clinic/hospital department * PTT (03/02/2006 11:17 AM PCT) PTT 35.1 24.4 - 36.4 Seconds INTERFACE SYSTEM Comment: PTT Therapeutic Range: Heparin Level PTT (seconds) <0.10 units/mL <53 0.10 - 0.30 units/mL 53 - 67 0.30 - 0.70 units/mL* 67 - 95* 0.70 - 1.00 units/mL 95 - 116 *corresponds to therapeutic range for unfractionated heparin 03/02/2006 11:1 7 AM PCT us Guru Polk MD HEMATOLOGY ORDERABLES Final Resu lt INTERFACE SYSTEM Refer to clinic/hospital department * POC GLUCOSE (03/02/2006 5:59 AM PCT) GLUCOSE POC 94 65 - 99 mg/dL INTERFACE SYSTEM Comment: 02/10/2006 Change in reference range to correspond to Main Lab reference range. 03/02/2006 5:59 AM PCT us Tim Batres MD POINT OF CARE TESTING Final Res ult INTERFACE SYSTEM Refer to clinic/hospital department * PT AND APTT (03/02/2006 5:45 AM PCT) PROTIME 14.8 12.7 - 15.1 Seconds INTERFACE SYSTEM INR 1.1 0.9 - 1.1 INTERFACE SYSTEM Comment: INR Therapeutic Range: Adult: 2.0 - 3.0 for pulmonary embolism or prophylaxis against venous thrombosis or systemic embolization. 2.0 - 3.0 for patients with tissue heart valves. 2.5 - 3.5 for patients with mechanical heart valves or post NM. Pediatric (12 years and under): 1.5 - [...] range for unfractionated heparin 03/02/2006 5:45 AM PCT us Tim Batres MD HEMATOLOGY ORDERABLES Final Res ult Performing Organization Address [facility] Phone Number INTERFACE SYSTEM Refer to clinic/hospital department * CBC WITH DIFFERENTIAL (03/02/2006 5:45 AM PCT) ANISOCYTOSIS Slight INTERFA CE SYSTEM POIKILOCYTES Slight INTERFA CE SYSTEM ACANTHOCYTES Slight INTERFA CE SYSTEM 03/02/2006 5:45 AM PCT Evelyn Garcia DO HEMATOLOGY ORDERABLES Fi nal Result Performing Organization Address [facility] Phone Number INTERFACE SYSTEM Refer to clinic/hospital department * CBC WITH DIFFERENTIAL (03/02/2006 5:45 AM PCT) NEUTROPHILS 70 45 - 70 % INTERFAC [...] 0.20 K/uL INTERFACE SYSTEM 03/02/2006 5:45 AM PCT Evelyn Garcia DO HEMATOLOGY ORDERABLES Fi nal Result Performing Organization Address [facility] Phone Number INTERFACE SYSTEM Refer to clinic/hospital department * (ABNORMAL) CBC WITH DIFFERENTIAL (03/02/2006 5:45 AM PCT) WBC 5.4 4.0 - 9.8 K/uL INTERFACE [...] 12.4 fL INTERFACE SYSTEM 03/02/2006 5:45 AM PCT us Evelyn Garcia DO HEMATOLOGY ORDERABLES Fi nal Result Performing Organization Address City/[facility] Phone Number INTERFACE SYSTEM Refer to clinic/hospital department * PHOSPHORUS (03/02/2006 5:45 AM PCT) PHOSPHORUS 4.5 2.5 - 4.5 mg/dL INTERFACE SYSTEM 03/02/2006 5:45 AM PCT Evelyn Garcia DO CHEMISTRY ORDERABLES Fin al Result Performing Organization Address [facility] Phone Number INTERFACE SYSTEM Refer to clinic/hospital department * MAGNESIUM LEVEL (03/02/2006 5:45 AM PCT) MAGNESIUM 1.5 1.5 - 2.5 mg/dL INTERFACE SYSTEM 03/02/2006 5:45 AM PCT Evelyn Garcia DO CHEMISTRY ORDERABLES Fin al Result Performing Organization Address [facility] Phone Number INTERFACE SYSTEM Refer to clinic/hospital department * (ABNORMAL) BASIC METABOLIC PANEL (03/02/2006 5:45 AM PCT) GLUCOSE 74 65 - 99 mg/dL INTERFACE [...] is available on the [facility] Intranet at: [email or web address] Select: Lab Policies and Procedures Select: Reference Ranges - GFR 03/02/2006 5:45 AM PCT Evelyn Garcia DO CHEMISTRY ORDERABLES Fin al Result Performing Organization Address [facility] de Phone Number INTERFACE SYSTEM Refer to clinic/hospital department * CKMB W/REFLEX CK (03/02/2006 5:45 AM PCT) CKMB 3.3 <=6.7 ng/mL INTERFACE SYSTEM CKMB INTERP Negative INTERFAC E SYSTEM 03/02/2006 5:45 AM PCT Result [facility] Evelyn Garcia DO CHEMISTRY ORDERABLES Fin al Result Performing Organization Address [facility] de Phone Number INTERFACE SYSTEM Refer to clinic/hospital department * (ABNORMAL) TROPONIN (W/REFLEX CKMB/CK) (03/02/2006 5:45 AM PCT) TROPONIN T 0.19(AA) <=0.03 ng/mL INTERFACE SYSTEM Comment:Persistent abnormal result TROPONIN T INTERP See Below INTERFACE SYSTEM Comment:Elevated Troponin-T, Consistent with Myocardial Injury 03/02/2006 5:45 AM PCT Evelyn Garcia DO CHEMISTRY ORDERABLES Fin al Result Performing Organization Address 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
--- OUTSIDE RECORDS SUMMARY | 2025-01-23 17:14 | XMS_ITS | Encounter Summary ---
[facility] Organization [facility] Address [address] [place] [address] Care Team Providers Care Security Assistant Name Role Phone Morgan Mercado MD Primary Care Provider [phone] Encounter Details Date Type Department Care Team (Latest Contact Info) Description 03/04/2006 Inpatient Historical HIS PATIENT IN A BED Warren Renner MD [address] [place] [address] Other Specified Rehabilitation Procedure (Primary Dx); Pulmonary Insufficiency Following Trauma and Surgery; Pneumonia, Organism Unspecified; Atrial Fibrillation (CMS/[facility]); Unspecified Protein-Calorie Malnutrition; Urinary Tract Infection, Site [...] on file Legal Sex Male 4:23 AM ENGINEER PROCESS Gender Identity Not on file Sexual Orientation Not on file documented as of this encounter Plan of Treatment Not on file documented as of this encounter Procedures Procedure Name Priority Date/Time Associated Diagnosis Comments POC GLUCOSE Routine 03/14/2006 9:43 AM ENGINEER PROCESS POC GLUCOSE Routine 03/14/2006 6:00 AM ENGINEER PROCESS POC GLUCOSE Routine 03/13/2006 4:23 PM ENGINEER PROCESS POC GLUCOSE Routine 03/13/2006 5:40 AM ENGINEER PROCESS POC GLUCOSE Routine 03/12/2006 6:24 PM ENGINEER PROCESS CBC WITH DIFFERENTIAL Routine 03/12/2006 1:15 PM ENGINEER PROCESS CBC WITH DIFFERENTIAL Routine 03/12/2006 1:15 PM ENGINEER PROCESS BASIC METABOLIC PANEL Routine 03/12/2006 1:15 PM ENGINEER PROCESS POC GLUCOSE Routine 03/12/2006 11:45 AM ENGINEER PROCESS POC GLUCOSE Routine 03/12/2006 6:20 AM ENGINEER PROCESS POC GLUCOSE Routine 03/11/2006 9:04 PM ENGINEER PROCESS POC GLUCOSE Routine 03/11/2006 4:08 PM ENGINEER PROCESS POC GLUCOSE Routine 03/11/2006 11:38 AM ENGINEER PROCESS POC GLUCOSE Routine 03/11/2006 5:53 AM ENGINEER PROCESS BASIC METABOLIC PANEL Routine 03/11/2006 4:55 AM ENGINEER PROCESS POC GLUCOSE Routine 03/10/2006 9:50 PM ENGINEER PROCESS POC GLUCOSE Routine 03/10/2006 4:08 PM ENGINEER PROCESS POC GLUCOSE Routine 03/10/2006 10:48 AM ENGINEER PROCESS CBC WITH DIFFERENTIAL Routine 03/10/2006 7:15 AM ENGINEER PROCESS CBC WITH DIFFERENTIAL Routine 03/10/2006 7:15 AM ENGINEER PROCESS BASIC METABOLIC PANEL Routine 03/10/2006 7:15 AM ENGINEER PROCESS POC GLUCOSE Routine 03/10/2006 5:39 AM ENGINEER PROCESS POC GLUCOSE Routine 03/09/2006 9:03 PM ENGINEER PROCESS POC GLUCOSE Routine 03/09/2006 4:44 PM ENGINEER PROCESS POC GLUCOSE Routine 03/09/2006 10:48 AM ENGINEER PROCESS BASIC METABOLIC PANEL Routine 03/09/2006 7:20 AM ENGINEER PROCESS POC GLUCOSE Routine 03/09/2006 5:07 AM ENGINEER PROCESS POC GLUCOSE Routine 03/08/2006 9:07 PM ENGINEER PROCESS POC GLUCOSE Routine 03/08/2006 4:30 PM ENGINEER PROCESS POC GLUCOSE Routine 03/08/2006 11:27 AM ENGINEER PROCESS POC GLUCOSE Routine 03/08/2006 6:24 AM ENGINEER PROCESS CBC WITH DIFFERENTIAL Routine 03/08/2006 5:35 AM ENGINEER PROCESS CBC WITH DIFFERENTIAL Routine 03/08/2006 5:35 AM ENGINEER PROCESS COMPREHENSIVE METABOLIC PANEL Routine 03/08/2006 5:35 AM ENGINEER PROCESS POC GLUCOSE Routine 03/07/2006 8:48 PM ENGINEER PROCESS POC GLUCOSE Routine 03/07/2006 4:10 PM ENGINEER PROCESS POC GLUCOSE Routine 03/07/2006 11:29 AM ENGINEER PROCESS CBC WITH DIFFERENTIAL Routine 03/07/2006 6:20 AM ENGINEER PROCESS CBC WITH DIFFERENTIAL Routine 03/07/2006 6:20 AM ENGINEER PROCESS COMPREHENSIVE METABOLIC PANEL Routine 03/07/2006 6:20 AM ENGINEER PROCESS POC GLUCOSE Routine 03/07/2006 5:13 AM ENGINEER PROCESS POC GLUCOSE Routine 03/06/2006 8:49 PM ENGINEER PROCESS POC GLUCOSE Routine 03/06/2006 4:02 PM ENGINEER PROCESS POC GLUCOSE Routine 03/06/2006 12:01 PM ENGINEER PROCESS POC GLUCOSE Routine 03/06/2006 6:14 AM ENGINEER PROCESS POC GLUCOSE Routine 03/05/2006 8:00 PM ENGINEER PROCESS POC GLUCOSE Routine 03/05/2006 4:45 PM ENGINEER PROCESS POC GLUCOSE Routine 03/05/2006 11:51 AM ENGINEER PROCESS CBC WITH DIFFERENTIAL Routine 03/05/2006 8:47 AM ENGINEER PROCESS CBC WITH DIFFERENTIAL Routine 03/05/2006 8:47 AM ENGINEER PROCESS BASIC METABOLIC PANEL Routine 03/05/2006 8:47 AM ENGINEER PROCESS POC GLUCOSE Routine 03/05/2006 5:38 AM ENGINEER PROCESS POC GLUCOSE Routine 03/04/2006 9:01 PM ENGINEER PROCESS documented in this encounter Results * POC GLUCOSE (03/14/2006 9:43 AM ENGINEER PROCESS) [facility] Signature GLUCOSE POC 91 65 - 99 mg/dL INTERFACE SYSTEM Comment: 02/10/2006 Change in reference range to correspond to Main Lab reference range. 03/14/2006 9:43 AM ENGINEER PROCESS us Warren Renner MD POINT OF CARE TESTING Final Res ult INTERFACE SYSTEM Refer to clinic/hospital department * POC GLUCOSE (03/14/2006 6:00 AM ENGINEER PROCESS) COMMENT, GLU POC Notified RN INTERFACE SYSTEM GLUCOSE POC 93 65 - 99 mg/dL INTERFACE SYSTEM Comment: 02/10/2006 Change in reference range to correspond to Main Lab reference range. 03/14/2006 6:00 AM ENGINEER PROCESS us Warren Renner MD POINT OF CARE TESTING Final Res ult Performing Organization Address [facility] Phone Number INTERFACE SYSTEM Refer to clinic/hospital department * (ABNORMAL) POC GLUCOSE (03/13/2006 4:23 PM ENGINEER PROCESS) GLUCOSE POC 104(H) 65 - 99 mg/dL INTERFACE SYSTEM Comment: 02/10/2006 Change in reference range to correspond to Main Lab reference range. 03/13/2006 4:23 PM ENGINEER PROCESS us Warren Renner MD POINT OF CARE TESTING Final Res ult Performing Organization Address [facility] Phone Number INTERFACE SYSTEM Refer to clinic/hospital department * POC GLUCOSE (03/13/2006 5:40 AM ENGINEER PROCESS) GLUCOSE POC 94 65 - 99 mg/dL INTERFACE SYSTEM Comment: 02/10/2006 Change in reference range to correspond to Main Lab reference range. 03/13/2006 5:40 AM ENGINEER PROCESS us Warren Renner MD POINT OF CARE TESTING Final Res ult Performing Organization Address [facility] Phone Number INTERFACE SYSTEM Refer to clinic/hospital department * POC GLUCOSE (03/12/2006 6:24 PM ENGINEER PROCESS) COMMENT, GLU POC Notified RN INTERFACE SYSTEM GLUCOSE POC 66 65 - 99 mg/dL INTERFACE SYSTEM Comment: 02/10/2006 Change in reference range to correspond to Main Lab reference range. 03/12/2006 6:24 PM ENGINEER PROCESS us Warren Renner MD POINT OF CARE TESTING Final Res ult Performing Organization Address [facility] de Phone Number INTERFACE SYSTEM Refer to clinic/hospital department * (ABNORMAL) CBC WITH DIFFERENTIAL (03/12/2006 1:15 PM ENGINEER PROCESS) NEUTROPHILS 77(H) 45 - 70 % INTERFAC [...] 0.20 K/uL INTERFACE SYSTEM 03/12/2006 1:15 PM ENGINEER PROCESS us Abhinav Barton MD HEMATOLOGY ORDERABLES Final Result Performing Organization Address [facility] Phone Number INTERFACE SYSTEM Refer to clinic/hospital department * (ABNORMAL) CBC WITH DIFFERENTIAL (03/12/2006 1:15 PM ENGINEER PROCESS) WBC 9.2 4.0 - 9.8 K/uL INTERFACE [...] 12.4 fL INTERFACE SYSTEM 03/12/2006 1:15 PM ENGINEER PROCESS us Abhinav Barton MD HEMATOLOGY ORDERABLES Final Result Performing Organization Address [facility] de Phone Number INTERFACE SYSTEM Refer to clinic/hospital department * (ABNORMAL) BASIC METABOLIC PANEL (03/12/2006 1:15 PM ENGINEER PROCESS) GLUCOSE 101(H) 65 - 99 mg/dL INTERFACE [...] non- Americans is available on the [facility] Intranet at: [email or web address] Select: Lab Policies and Procedures Select: Reference Ranges - GFR 03/12/2006 1:15 PM ENGINEER PROCESS us Abhinav Barton MD CHEMISTRY ORDERABLES Final Result Performing Organization Address [facility] de Phone Number INTERFACE SYSTEM Refer to clinic/hospital department * POC GLUCOSE (03/12/2006 11:45 AM ENGINEER PROCESS) COMMENT, GLU POC Notified RN INTERFACE SYSTEM GLUCOSE POC 95 65 - 99 mg/dL INTERFACE SYSTEM Comment: 02/10/2006 Change in reference range to correspond to Main Lab reference range. 03/12/2006 11:4 5 AM ENGINEER PROCESS us Warren Renner MD POINT OF CARE TESTING Final Res ult Performing Organization Address [facility]/ZIP Co de Phone Number INTERFACE SYSTEM Refer to clinic/hospital department * POC GLUCOSE (03/12/2006 6:20 AM ENGINEER PROCESS) GLUCOSE POC 82 65 - 99 mg/dL INTERFACE SYSTEM Comment: 02/10/2006 Change in reference range to correspond to Main Lab reference range. 03/12/2006 6:20 AM ENGINEER PROCESS us Warren Renner MD POINT OF CARE TESTING Final Res ult Performing Organization Address [facility] Phone Number INTERFACE SYSTEM Refer to clinic/hospital department * (ABNORMAL) POC GLUCOSE (03/11/2006 9:04 PM ENGINEER PROCESS) GLUCOSE POC 100(H) 65 - 99 mg/dL INTERFACE SYSTEM Comment: 02/10/2006 Change in reference range to correspond to Main Lab reference range. 03/11/2006 9:04 PM ENGINEER PROCESS us Warren Renner MD POINT OF CARE TESTING Final Res ult Performing Organization Address [facility] Phone Number INTERFACE SYSTEM Refer to clinic/hospital department * (ABNORMAL) POC GLUCOSE (03/11/2006 4:08 PM ENGINEER PROCESS) COMMENT, GLU POC Notified RN INTERFACE SYSTEM GLUCOSE POC 132(H) 65 - 99 mg/dL INTERFACE SYSTEM Comment: 02/10/2006 Change in reference range to correspond to Main Lab reference range. 03/11/2006 4:08 PM ENGINEER PROCESS us Warren Renner MD POINT OF CARE TESTING Final Res ult Performing Organization Address [facility] Phone Number INTERFACE SYSTEM Refer to clinic/hospital department * (ABNORMAL) POC GLUCOSE (03/11/2006 11:38 AM ENGINEER PROCESS) COMMENT, GLU POC Notified RN INTERFACE SYSTEM GLUCOSE POC 132(H) 65 - 99 mg/dL INTERFACE SYSTEM Comment: 02/10/2006 Change in reference range to correspond to Main Lab reference range. 03/11/2006 11:3 8 AM ENGINEER PROCESS Warren Renner MD POINT OF CARE TESTING Final Res ult Performing Organization Address City/[facility]/ZIP Co de Phone Number INTERFACE SYSTEM Refer to clinic/hospital department * POC GLUCOSE (03/11/2006 5:53 AM ENGINEER PROCESS) COMMENT, GLU POC Notified RN INTERFACE SYSTEM GLUCOSE POC 92 65 - 99 mg/dL INTERFACE SYSTEM Comment: 02/10/2006 Change in reference range to correspond to Main Lab reference range. 03/11/2006 5:53 AM ENGINEER PROCESS Warren Renner MD POINT OF CARE TESTING Final Res ult Performing Organization Address [facility] de Phone Number INTERFACE SYSTEM Refer to clinic/hospital department * (ABNORMAL) BASIC METABOLIC PANEL (03/11/2006 4:55 AM ENGINEER PROCESS) GLUCOSE 83 65 - 99 mg/dL INTERFACE [...] non- Americans is available on the [facility] Intranet at: [email or web address] Select: Lab Policies and Procedures Select: Reference Ranges - GFR 03/11/2006 4:55 AM ENGINEER PROCESS Abhinav Barton MD CHEMISTRY ORDERABLES Final Result Performing Organization Address [facility] Phone Number INTERFACE SYSTEM Refer to clinic/hospital department * POC GLUCOSE (03/10/2006 9:50 PM ENGINEER PROCESS) GLUCOSE POC 98 65 - 99 mg/dL INTERFACE SYSTEM Comment: 02/10/2006 Change in reference range to correspond to Main Lab reference range. 03/10/2006 9:50 PM ENGINEER PROCESS Warren Renner MD POINT OF CARE TESTING Final Res ult Performing Organization Address [facility] Phone Number INTERFACE SYSTEM Refer to clinic/hospital department * POC GLUCOSE (03/10/2006 4:08 PM ENGINEER PROCESS) COMMENT, GLU POC Notified RN INTERFACE SYSTEM GLUCOSE POC 99 65 - 99 mg/dL INTERFACE SYSTEM Comment: 02/10/2006 Change in reference range to correspond to Main Lab reference range. 03/10/2006 4:08 PM ENGINEER PROCESS Warren Renner MD POINT OF CARE TESTING Final Res ult Performing Organization Address [facility] Phone Number INTERFACE SYSTEM Refer to clinic/hospital department * (ABNORMAL) POC GLUCOSE (03/10/2006 10:48 AM ENGINEER PROCESS) COMMENT, GLU POC Notified RN INTERFACE SYSTEM GLUCOSE POC 124(H) 65 - 99 mg/dL INTERFACE SYSTEM Comment: 02/10/2006 Change in reference range to correspond to Main Lab reference range. 03/10/2006 10:4 8 AM ENGINEER PROCESS Warren Renner MD POINT OF CARE TESTING Final Res ult Performing Organization Address [facility] Phone Number INTERFACE SYSTEM Refer to clinic/hospital department * (ABNORMAL) CBC WITH DIFFERENTIAL (03/10/2006 7:15 AM ENGINEER PROCESS) NEUTROPHILS 78(H) 45 - 70 % INTERFAC [...] 0.20 K/uL INTERFACE SYSTEM 03/10/2006 7:15 AM ENGINEER PROCESS us Abhinav Barton MD HEMATOLOGY ORDERABLES Final Result INTERFACE SYSTEM Refer to clinic/hospital department * (ABNORMAL) CBC WITH DIFFERENTIAL (03/10/2006 7:15 AM ENGINEER PROCESS) WBC 7.9 4.0 - 9.8 K/uL INTERFACE [...] 12.4 fL INTERFACE SYSTEM 03/10/2006 7:15 AM ENGINEER PROCESS us Abhinav Barton MD HEMATOLOGY ORDERABLES Final Result INTERFACE SYSTEM Refer to clinic/hospital department * (ABNORMAL) BASIC METABOLIC PANEL (03/10/2006 7:15 AM ENGINEER PROCESS) GLUCOSE 84 65 - 99 mg/dL INTERFACE [...] non- Americans is available on the [facility] Intranet at: [email or web address] Select: Lab Policies and Procedures Select: Reference Ranges - GFR 03/10/2006 7:15 AM ENGINEER PROCESS Abhinav Barton MD CHEMISTRY ORDERABLES Final Result Performing Organization Address [facility] de Phone Number INTERFACE SYSTEM Refer to clinic/hospital department * POC GLUCOSE (03/10/2006 5:39 AM ENGINEER PROCESS) GLUCOSE POC 93 65 - 99 mg/dL INTERFACE SYSTEM Comment: 02/10/2006 Change in reference range to correspond to Main Lab reference range. 03/10/2006 5:39 AM ENGINEER PROCESS us Warren Renner MD POINT OF CARE TESTING Final Res ult Performing Organization Address [facility] Co de Phone Number INTERFACE SYSTEM Refer to clinic/hospital department * (ABNORMAL) POC GLUCOSE (03/09/2006 9:03 PM ENGINEER PROCESS) COMMENT, GLU POC Notified RN INTERFACE SYSTEM GLUCOSE POC 114(H) 65 - 99 mg/dL INTERFACE SYSTEM Comment: 02/10/2006 Change in reference range to correspond to Main Lab reference range. 03/09/2006 9:03 PM ENGINEER PROCESS us Warren B Wice MD POINT OF CARE TESTING Final Res ult Performing Organization Address [facility] Phone Number INTERFACE SYSTEM Refer to clinic/hospital department * (ABNORMAL) POC GLUCOSE (03/09/2006 4:44 PM ENGINEER PROCESS) COMMENT, GLU POC Notified RN INTERFACE SYSTEM GLUCOSE POC 108(H) 65 - 99 mg/dL INTERFACE SYSTEM Comment: 02/10/2006 Change in reference range to correspond to Main Lab reference range. 03/09/2006 4:44 PM ENGINEER PROCESS Warren Renner MD POINT OF CARE TESTING Final Res ult Performing Organization Address [facility] Phone Number INTERFACE SYSTEM Refer to clinic/hospital department * (ABNORMAL) POC GLUCOSE (03/09/2006 10:48 AM ENGINEER PROCESS) COMMENT, GLU POC Notified RN INTERFACE SYSTEM GLUCOSE POC 135(H) 65 - 99 mg/dL INTERFACE SYSTEM Comment: 02/10/2006 Change in reference range to correspond to Main Lab reference range. 03/09/2006 10:4 8 AM ENGINEER PROCESS us Warren Renner MD POINT OF CARE TESTING Final Res ult Performing Organization Address [facility] Phone Number INTERFACE SYSTEM Refer to clinic/hospital department * (ABNORMAL) BASIC METABOLIC PANEL (03/09/2006 7:20 AM ENGINEER PROCESS) GLUCOSE 76 65 - 99 mg/dL INTERFACE [...] non- Americans is available on the [facility] Intranet at: [email or web address] Select: Lab Policies and Procedures Select: Reference Ranges - GFR 03/09/2006 7:20 AM ENGINEER PROCESS Abhinav Barton MD CHEMISTRY ORDERABLES Final Result Performing Organization Address [facility] de Phone Number INTERFACE SYSTEM Refer to clinic/hospital department * POC GLUCOSE (03/09/2006 5:07 AM ENGINEER PROCESS) GLUCOSE POC 70 65 - 99 mg/dL INTERFACE SYSTEM Comment: 02/10/2006 Change in reference range to correspond to Main Lab reference range. 03/09/2006 5:07 AM ENGINEER PROCESS Warren Renner MD POINT OF CARE TESTING Final Res ult Performing Organization Address [facility] de Phone Number INTERFACE SYSTEM Refer to clinic/hospital department * POC GLUCOSE (03/08/2006 9:07 PM ENGINEER PROCESS) GLUCOSE POC 98 65 - 99 mg/dL INTERFACE SYSTEM Comment: 02/10/2006 Change in reference range to correspond to Main Lab reference range. 03/08/2006 9:07 PM ENGINEER PROCESS Warren Renner MD POINT OF CARE TESTING Final Res ult Performing Organization Address [facility] de Phone Number INTERFACE SYSTEM Refer to clinic/hospital department * (ABNORMAL) POC GLUCOSE (03/08/2006 4:30 PM ENGINEER PROCESS) GLUCOSE POC 107(H) 65 - 99 mg/dL INTERFACE SYSTEM Comment: 02/10/2006 Change in reference range to correspond to Main Lab reference range. 03/08/2006 4:30 PM ENGINEER PROCESS us Warren Renner MD POINT OF CARE TESTING Final Res ult Performing Organization Address [facility] de Phone Number INTERFACE SYSTEM Refer to clinic/hospital department * (ABNORMAL) POC GLUCOSE (03/08/2006 11:27 AM ENGINEER PROCESS) GLUCOSE POC 104(H) 65 - 99 mg/dL INTERFACE SYSTEM Comment: 02/10/2006 Change in reference range to correspond to Main Lab reference range. 03/08/2006 11:2 7 AM ENGINEER PROCESS Warren Renner MD POINT OF CARE TESTING Final Res ult Performing Organization Address [facility] de Phone Number INTERFACE SYSTEM Refer to clinic/hospital department * POC GLUCOSE (03/08/2006 6:24 AM ENGINEER PROCESS) GLUCOSE POC 92 65 - 99 mg/dL INTERFACE SYSTEM Comment: 02/10/2006 Change in reference range to correspond to Main Lab reference range. 03/08/2006 6:24 AM ENGINEER PROCESS Warren Renner MD POINT OF CARE TESTING Final Res ult Performing Organization Address [facility] de Phone Number INTERFACE SYSTEM Refer to clinic/hospital department * (ABNORMAL) CBC WITH DIFFERENTIAL (03/08/2006 5:35 AM ENGINEER PROCESS) NEUTROPHILS 79(H) 45 - 70 % INTERFAC [...] 0.20 K/uL INTERFACE SYSTEM 03/08/2006 5:35 AM ENGINEER PROCESS Abhinav Barton MD HEMATOLOGY ORDERABLES Final Result Performing Organization Address [facility] Phone Number INTERFACE SYSTEM Refer to clinic/hospital department * (ABNORMAL) CBC WITH DIFFERENTIAL (03/08/2006 5:35 AM ENGINEER PROCESS) WBC 9.1 4.0 - 9.8 K/uL INTERFACE [...] 12.4 fL INTERFACE SYSTEM 03/08/2006 5:35 AM ENGINEER PROCESS Abhinav Barton MD HEMATOLOGY ORDERABLES Final Result Performing Organization Address [facility] Phone Number INTERFACE SYSTEM Refer to clinic/hospital department * (ABNORMAL) COMPREHENSIVE METABOLIC PANEL (03/08/2006 5:35 AM ENGINEER PROCESS) GLUCOSE 82 65 - 99 mg/dL INTERFACE [...] non- Americans is available on the [facility] Intranet at: [email or web address] Select: Lab Policies and Procedures Select: Reference Ranges - GFR 03/08/2006 5:35 AM ENGINEER PROCESS Abhinav Barton MD CHEMISTRY ORDERABLES Final Result Performing Organization Address [facility] de Phone Number INTERFACE SYSTEM Refer to clinic/hospital department * POC GLUCOSE (03/07/2006 8:48 PM ENGINEER PROCESS) GLUCOSE POC 94 65 - 99 mg/dL INTERFACE SYSTEM Comment: 02/10/2006 Change in reference range to correspond to Main Lab reference range. 03/07/2006 8:48 PM ENGINEER PROCESS Warren Renner MD POINT OF CARE TESTING Final Res ult Performing Organization Address [facility] de Phone Number INTERFACE SYSTEM Refer to clinic/hospital department * (ABNORMAL) POC GLUCOSE (03/07/2006 4:10 PM ENGINEER PROCESS) COMMENT, GLU POC Notified RN INTERFACE SYSTEM GLUCOSE POC 152(H) 65 - 99 mg/dL INTERFACE SYSTEM Comment: 02/10/2006 Change in reference range to correspond to Main Lab reference range. 03/07/2006 4:10 PM ENGINEER PROCESS Warren Renner MD POINT OF CARE TESTING Final Res ult Performing Organization Address [facility] de Phone Number INTERFACE SYSTEM Refer to clinic/hospital department * (ABNORMAL) POC GLUCOSE (03/07/2006 11:29 AM ENGINEER PROCESS) COMMENT, GLU POC Notified RN INTERFACE SYSTEM GLUCOSE POC 131(H) 65 - 99 mg/dL INTERFACE SYSTEM Comment: 02/10/2006 Change in reference range to correspond to Main Lab reference range. 03/07/2006 11:2 9 AM ENGINEER PROCESS Warren Renner MD POINT OF CARE TESTING Final Res ult Performing Organization Address [facility] de Phone Number INTERFACE SYSTEM Refer to clinic/hospital department * (ABNORMAL) CBC WITH DIFFERENTIAL (03/07/2006 6:20 AM ENGINEER PROCESS) NEUTROPHILS 74(H) 45 - 70 % INTERFAC [...] 0.20 K/uL INTERFACE SYSTEM 03/07/2006 6:20 AM ENGINEER PROCESS Abhinav Barton MD HEMATOLOGY ORDERABLES Final Result Performing Organization Address [facility] Phone Number INTERFACE SYSTEM Refer to clinic/hospital department * (ABNORMAL) CBC WITH DIFFERENTIAL (03/07/2006 6:20 AM ENGINEER PROCESS) WBC 8.2 4.0 - 9.8 K/uL INTERFACE [...] 12.4 fL INTERFACE SYSTEM 03/07/2006 6:20 AM ENGINEER PROCESS us Abhinav Barton MD HEMATOLOGY ORDERABLES Final Result INTERFACE SYSTEM Refer to clinic/hospital department * (ABNORMAL) COMPREHENSIVE METABOLIC PANEL (03/07/2006 6:20 AM ENGINEER PROCESS) GLUCOSE 89 65 - 99 mg/dL INTERFACE [...] non- Americans is available on the [facility] Intranet at: [email or web address] Select: Lab Policies and Procedures Select: Reference Ranges - GFR 03/07/2006 6:20 AM ENGINEER PROCESS Abhinav Barton MD CHEMISTRY ORDERABLES Final Result Performing Organization Address [facility] Phone Number INTERFACE SYSTEM Refer to clinic/hospital department * (ABNORMAL) POC GLUCOSE (03/07/2006 5:13 AM ENGINEER PROCESS) COMMENT, GLU POC Notified RN INTERFACE SYSTEM GLUCOSE POC 113(H) 65 - 99 mg/dL INTERFACE SYSTEM Comment: 02/10/2006 Change in reference range to correspond to Main Lab reference range. 03/07/2006 5:13 AM ENGINEER PROCESS us Warren Renner MD POINT OF CARE TESTING Final Res ult Performing Organization Address [facility] Phone Number INTERFACE SYSTEM Refer to clinic/hospital department * (ABNORMAL) POC GLUCOSE (03/06/2006 8:49 PM ENGINEER PROCESS) GLUCOSE POC 110(H) 65 - 99 mg/dL INTERFACE SYSTEM Comment: 02/10/2006 Change in reference range to correspond to Main Lab reference range. 03/06/2006 8:49 PM ENGINEER PROCESS us Warren Renner MD POINT OF CARE TESTING Final Res ult Performing Organization Address [facility] Phone Number INTERFACE SYSTEM Refer to clinic/hospital department * (ABNORMAL) POC GLUCOSE (03/06/2006 4:02 PM ENGINEER PROCESS) COMMENT, GLU POC Notified RN INTERFACE SYSTEM GLUCOSE POC 114(H) 65 - 99 mg/dL INTERFACE SYSTEM Comment: 02/10/2006 Change in reference range to correspond to Main Lab reference range. 03/06/2006 4:02 PM ENGINEER PROCESS us Warren Renner MD POINT OF CARE TESTING Final Res ult Performing Organization Address [facility] Phone Number INTERFACE SYSTEM Refer to clinic/hospital department * (ABNORMAL) POC GLUCOSE (03/06/2006 12:01 PM ENGINEER PROCESS) COMMENT, GLU POC Notified RN INTERFACE SYSTEM GLUCOSE POC 105(H) 65 - 99 mg/dL INTERFACE SYSTEM Comment: 02/10/2006 Change in reference range to correspond to Main Lab reference range. 03/06/2006 12:0 1 PM ENGINEER PROCESS us Warren Renner MD POINT OF CARE TESTING Final Res ult Performing Organization Address [facility] Number INTERFACE SYSTEM Refer to clinic/hospital department * POC GLUCOSE (03/06/2006 6:14 AM ENGINEER PROCESS) GLUCOSE POC 89 65 - 99 mg/dL INTERFACE SYSTEM Comment: 02/10/2006 Change in reference range to correspond to Main Lab reference range. 03/06/2006 6:14 AM ENGINEER PROCESS us Warren Renner MD POINT OF CARE TESTING Final Res ult Performing Organization Address [facility] Number INTERFACE SYSTEM Refer to clinic/hospital department * (ABNORMAL) POC GLUCOSE (03/05/2006 8:00 PM ENGINEER PROCESS) COMMENT, GLU POC Notified RN INTERFACE SYSTEM GLUCOSE POC 110(H) 65 - 99 mg/dL INTERFACE SYSTEM Comment: 02/10/2006 Change in reference range to correspond to Main Lab reference range. 03/05/2006 8:00 PM ENGINEER PROCESS us Warren Renner MD POINT OF CARE TESTING Final Res ult Performing Organization Address [facility] Phone Number INTERFACE SYSTEM Refer to clinic/hospital department * (ABNORMAL) POC GLUCOSE (03/05/2006 4:45 PM ENGINEER PROCESS) COMMENT, GLU POC Notified RN INTERFACE SYSTEM GLUCOSE POC 124(H) 65 - 99 mg/dL INTERFACE SYSTEM Comment: 02/10/2006 Change in reference range to correspond to Main Lab reference range. 03/05/2006 4:45 PM ENGINEER PROCESS us Warren Renner MD POINT OF CARE TESTING Final Res ult Performing Organization Address [facility] de Phone Number INTERFACE SYSTEM Refer to clinic/hospital department * (ABNORMAL) POC GLUCOSE (03/05/2006 11:51 AM ENGINEER PROCESS) COMMENT, GLU POC Notified RN INTERFACE SYSTEM GLUCOSE POC 130(H) 65 - 99 mg/dL INTERFACE SYSTEM Comment: 02/10/2006 Change in reference range to correspond to Main Lab reference range. 03/05/2006 11:5 1 AM ENGINEER PROCESS us Warren Renner MD POINT OF CARE TESTING Final Res ult Performing Organization Address [facility] de Phone Number INTERFACE SYSTEM Refer to clinic/hospital department * (ABNORMAL) CBC WITH DIFFERENTIAL (03/05/2006 8:47 AM ENGINEER PROCESS) NEUTROPHILS 82(H) 45 - 70 % INTERFAC [...] 0.20 K/uL INTERFACE SYSTEM 03/05/2006 8:47 AM ENGINEER PROCESS us Abhinav Barton MD HEMATOLOGY ORDERABLES Final Result Performing Organization Address [facility] de Phone Number INTERFACE SYSTEM Refer to clinic/hospital department * (ABNORMAL) CBC WITH DIFFERENTIAL (03/05/2006 8:47 AM ENGINEER PROCESS) WBC 7.2 4.0 - 9.8 K/uL INTERFACE [...] 12.4 fL INTERFACE SYSTEM 03/05/2006 8:47 AM ENGINEER PROCESS us Abhinav Barton MD HEMATOLOGY ORDERABLES Final Result Performing Organization Address [facility] Co de Phone Number INTERFACE SYSTEM Refer to clinic/hospital department * (ABNORMAL) BASIC METABOLIC PANEL (03/05/2006 8:47 AM ENGINEER PROCESS) GLUCOSE 125(H) 65 - 99 mg/dL INTERFACE [...] non- Americans is available on the [facility] Intranet at: [email or web address] Select: Lab Policies and Procedures Select: Reference Ranges - GFR 03/05/2006 8:47 AM ENGINEER PROCESS us Abhinav Barton MD CHEMISTRY ORDERABLES Final Result Performing Organization Address [place]/[facility]/ZIP Co de Phone Number INTERFACE SYSTEM Refer to clinic/hospital department * POC GLUCOSE (03/05/2006 5:38 AM ENGINEER PROCESS) COMMENT, GLU POC Notified RN INTERFACE SYSTEM GLUCOSE POC 95 65 - 99 mg/dL INTERFACE SYSTEM Comment: 02/10/2006 Change in reference range to correspond to Main Lab reference range. 03/05/2006 5:38 AM ENGINEER PROCESS us Warren Renner MD POINT OF CARE TESTING Final Res ult Performing Organization Address [facility] Phone Number INTERFACE SYSTEM Refer to clinic/hospital department * (ABNORMAL) POC GLUCOSE (03/04/2006 9:01 PM ENGINEER PROCESS) COMMENT, GLU POC Notified RN INTERFACE SYSTEM GLUCOSE POC 113(H) 65 - 99 mg/dL INTERFACE SYSTEM Comment: 02/10/2006 Change in reference range to correspond to Main Lab reference range. 03/04/2006 9:01 PM ENGINEER PROCESS us Warren Renner MD POINT OF CARE TESTING Final Res ult Performing Organization Address [facility] Phone Number INTERFACE SYSTEM Refer to clinic/hospital department documented in this encounter Visit Diagnoses Diagnosis Other specified rehabilitation procedure(V57.89)- Primary Other specified rehabilitation procedure Pulmonary insufficiency following trauma and surgery Pneumonia, organism unspecified(486) Pneumonia, organism unspecified Atrial fibrillation (CMS/HCC) Atrial fibrillation Unspecified protein-calorie malnutrition Urinary tract infection, site not specified Acute kidney failure, unspecified Blood in stool 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CMS/HCC) Anoxic brain damage Other, mixed, or unspecified nondependent drug abuse, unspecified Alcohol abuse, unspecified 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
--- OUTSIDE RECORDS SUMMARY | 2025-01-23 17:17 | XMS_ITS | Encounter Summary ---
Author Organization [facility] Address [address] [place] [address] Care Team Providers Care Plastic Extrusion Operator Name Role Phone Morgan Mercado MD Primary Care Provider [phone] Encounter Details Date Type Department Care Team (Late st Contact Info) Description 07/15/2006 Outpatient Historical [facility] [id number] [facility] [address] [place] [phone] Wicho Gomez MD [address] 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
--- OUTSIDE RECORDS SUMMARY | 2025-01-23 17:17 | XMS_ITS | Encounter Summary ---
Author Organization [employer] Address [address] [place] [address] Care Team Providers Care Hostel Parent Name Role Phone Morgan Mercado MD Primary Care Provider [phone] Encounter Details Date Type Department Care Team (Latest Contact Info) Description 11/24/2005 Inpatient Historical HIS PATIENT IN A BED Wicho Gomez MD [address] [place] [id number] 3rd Deg Burn Hand-Mult (Primary Dx); [...] on file Legal Sex Male 4:23 AM WORD PROCESSOR Gender Identity Not on file Sexual Orientation Not on file documented as of this encounter Plan of Treatment Not on file documented as of this encounter Procedures Procedure Name Priority Date/Time Associated Diagnosis Comments POC GLUCOSE Routine 02/08/2006 6:40 PM WORD PROCESSOR POC GLUCOSE Routine 02/08/2006 2:15 PM WORD PROCESSOR CBC WITH DIFFERENTIAL Routine 02/08/2006 3:30 AM WORD PROCESSOR CBC WITH DIFFERENTIAL Routine 02/08/2006 3:30 AM WORD PROCESSOR PHOSPHORUS Routine 02/08/2006 3:30 AM WORD PROCESSOR MAGNESIUM LEVEL Routine 02/08/2006 3:30 AM WORD PROCESSOR CALCIUM IONIZED Routine 02/08/2006 3:30 AM WORD PROCESSOR BASIC METABOLIC PANEL Routine 02/08/2006 3:30 AM WORD PROCESSOR POC GLUCOSE Routine 02/07/2006 11:50 PM WORD PROCESSOR POC GLUCOSE Routine 02/07/2006 6:13 PM WORD PROCESSOR POC GLUCOSE Routine 02/07/2006 12:03 PM WORD PROCESSOR CBC WITH DIFFERENTIAL Routine 02/07/2006 5:10 AM WORD PROCESSOR CBC WITH DIFFERENTIAL Routine 02/07/2006 5:10 AM WORD PROCESSOR PREALBUMIN Routine 02/07/2006 5:10 AM WORD PROCESSOR PHOSPHORUS Routine 02/07/2006 5:10 AM WORD PROCESSOR MAGNESIUM LEVEL Routine 02/07/2006 5:10 AM WORD PROCESSOR CALCIUM IONIZED Routine 02/07/2006 5:10 AM WORD PROCESSOR VANCOMYCIN LEVEL RANDOM Routine 02/08/20 06 5:10 AM WORD PROCESSOR COMPREHENSIVE METABOLIC PANEL Routine 02/07/2006 5:10 AM WORD PROCESSOR POC GLUCOSE Routine 02/07/2006 12:27 AM WORD PROCESSOR POC GLUCOSE Routine 02/06/2006 5:44 PM WORD PROCESSOR POC GLUCOSE Routine 02/06/2006 11:09 AM WORD PROCESSOR POC GLUCOSE Routine 02/06/2006 6:08 AM WORD PROCESSOR CBC WITH DIFFERENTIAL Routine 02/06/2006 3:40 AM WORD PROCESSOR CBC WITH DIFFERENTIAL Routine 02/06/2006 3:40 AM WORD PROCESSOR PHOSPHORUS Routine 02/06/2006 3:40 AM WORD PROCESSOR MAGNESIUM LEVEL Routine 02/06/2006 3:40 AM WORD PROCESSOR CALCIUM IONIZED Routine 02/06/2006 3:40 AM WORD PROCESSOR BASIC METABOLIC PANEL Routine 02/06/2006 3:40 AM WORD PROCESSOR VANCOMYCIN LEVEL RANDOM Routine 02/07/20 06 3:20 AM WORD PROCESSOR POC GLUCOSE Routine 2006 11:59 PM WORD PROCESSOR POC GLUCOSE Routine 2006 5:23 PM WORD PROCESSOR POC GLUCOSE Routine 2006 4:36 PM WORD PROCESSOR POC GLUCOSE Routine 2006 12:52 PM WORD PROCESSOR POC GLUCOSE Routine 2006 6:13 AM WORD PROCESSOR CBC WITH DIFFERENTIAL Routine 2006 3:45 AM WORD PROCESSOR CBC WITH DIFFERENTIAL Routine 2006 3:45 AM WORD PROCESSOR PHOSPHORUS Routine 2006 3:45 AM WORD PROCESSOR MAGNESIUM LEVEL Routine 2006 3:45 AM WORD PROCESSOR CALCIUM IONIZED Routine 2006 3:45 AM WORD PROCESSOR BASIC METABOLIC PANEL Routine 2006 3:45 AM WORD PROCESSOR POC GLUCOSE Routine 2006 12:39 AM WORD PROCESSOR POC GLUCOSE Routine 02/04/2006 10:17 PM WORD PROCESSOR CBC WITH DIFFERENTIAL Routine 02/04/2006 4:00 AM WORD PROCESSOR CBC WITH DIFFERENTIAL Routine 02/04/2006 4:00 AM WORD PROCESSOR PHOSPHORUS Routine 02/04/2006 4:00 AM WORD PROCESSOR MAGNESIUM LEVEL Routine 02/04/2006 4:00 AM WORD PROCESSOR CALCIUM IONIZED Routine 02/04/2006 4:00 AM WORD PROCESSOR BASIC METABOLIC PANEL Routine 02/04/2006 4:00 AM WORD PROCESSOR POC GLUCOSE Routine 02/04/2006 12:10 AM WORD PROCESSOR POC GLUCOSE Routine 02/03/2006 4:58 PM WORD PROCESSOR POC GLUCOSE Routine 02/03/2006 12:04 PM WORD PROCESSOR POC GLUCOSE Routine 02/03/2006 6:36 AM WORD PROCESSOR PT AND APTT Routine 02/03/2006 4:00 AM WORD PROCESSOR CBC WITH DIFFERENTIAL Routine 02/03/2006 4:00 AM WORD PROCESSOR CBC WITH DIFFERENTIAL Routine 02/03/2006 4:00 AM WORD PROCESSOR PHOSPHORUS Routine 02/03/2006 4:00 AM WORD PROCESSOR MAGNESIUM LEVEL Routine 02/03/2006 4:00 AM WORD PROCESSOR CALCIUM IONIZED Routine 02/03/2006 4:00 AM WORD PROCESSOR BASIC METABOLIC PANEL Routine 02/03/2006 4:00 AM WORD PROCESSOR POC GLUCOSE Routine 02/03/2006 12:22 AM WORD PROCESSOR VANCOMYCIN LEVEL TROUGH Routine 02/04/20 12:15 AM WORD PROCESSOR POC GLUCOSE Routine 02/02/2006 5:25 PM WORD PROCESSOR POC GLUCOSE Routine 02/02/2006 1:29 PM WORD PROCESSOR POC GLUCOSE Routine 02/02/2006 11:55 AM WORD PROCESSOR POC GLUCOSE Routine 02/02/2006 5:56 AM WORD PROCESSOR PHOSPHORUS Routine 02/02/2006 4:29 AM WORD PROCESSOR MAGNESIUM LEVEL Routine 02/02/2006 4:29 AM WORD PROCESSOR CBC WITH DIFFERENTIAL Routine 02/02/2006 3:30 AM WORD PROCESSOR CBC WITH DIFFERENTIAL Routine 02/02/2006 3:30 AM WORD PROCESSOR BASIC METABOLIC PANEL Routine 02/02/2006 3:30 AM WORD PROCESSOR POC GLUCOSE Routine 02/01/2006 11:43 PM WORD PROCESSOR POC GLUCOSE Routine 02/01/2006 5:05 PM WORD PROCESSOR POC GLUCOSE Routine 02/01/2006 11:37 AM WORD PROCESSOR POC GLUCOSE Routine 02/01/2006 6:11 AM WORD PROCESSOR CBC WITH DIFFERENTIAL Routine 02/01/2006 4:40 AM WORD PROCESSOR CBC WITH DIFFERENTIAL Routine 02/01/2006 4:40 AM WORD PROCESSOR OCCULT BLOOD GUAIAC DIAGNOSTIC Routine 02/01/2006 4:40 AM WORD PROCESSOR T3 FREE Routine 02/01/2006 4:40 AM WORD PROCESSOR TSH Routine 02/01/2006 4:40 AM WORD PROCESSOR T4 FREE Routine 02/01/2006 4:40 AM WORD PROCESSOR PREALBUMIN Routine 02/01/2006 4:40 AM WORD PROCESSOR PHOSPHORUS Routine 02/01/2006 4:40 AM WORD PROCESSOR MAGNESIUM LEVEL Routine 02/01/2006 4:40 AM WORD PROCESSOR COMPREHENSIVE METABOLIC PANEL Routine 02/01/2006 4:40 AM WORD PROCESSOR POC GLUCOSE Routine 01/31/2006 11:57 PM WORD PROCESSOR POC GLUCOSE Routine 01/31/2006 5:07 PM WORD PROCESSOR POC GLUCOSE Routine 01/31/2006 11:10 AM WORD PROCESSOR URINALYSIS W/REFLEX MICROSCOPIC Routine 01/31/2006 10:03 AM WORD PROCESSOR CBC WITH DIFFERENTIAL Routine 01/31/2006 4:00 AM WORD PROCESSOR CBC WITH DIFFERENTIAL Routine 01/31/2006 4:00 AM WORD PROCESSOR PHOSPHORUS Routine 01/31/2006 4:00 AM WORD PROCESSOR MAGNESIUM LEVEL Routine 01/31/2006 4:00 AM WORD PROCESSOR CALCIUM IONIZED Routine 01/31/2006 4:00 AM WORD PROCESSOR BASIC METABOLIC PANEL Routine 01/31/2006 4:00 AM WORD PROCESSOR POC GLUCOSE Routine 01/31/2006 12:34 AM WORD PROCESSOR POC GLUCOSE Routine 01/30/2006 5:23 PM WORD PROCESSOR POC GLUCOSE Routine 01/30/2006 11:16 AM WORD PROCESSOR CBC WITH DIFFERENTIAL Routine 01/30/2006 3:15 AM WORD PROCESSOR CBC WITH DIFFERENTIAL Routine 01/30/2006 3:15 AM WORD PROCESSOR PHOSPHORUS Routine 01/30/2006 3:15 AM WORD PROCESSOR MAGNESIUM LEVEL Routine 01/30/2006 3:15 AM WORD PROCESSOR CALCIUM IONIZED Routine 01/30/2006 3:15 AM WORD PROCESSOR BASIC METABOLIC PANEL Routine 01/30/2006 3:15 AM WORD PROCESSOR POC GLUCOSE Routine 01/29/2006 11:58 PM WORD PROCESSOR POC GLUCOSE Routine 01/29/2006 5:06 PM WORD PROCESSOR POC GLUCOSE Routine 01/29/2006 12:46 PM WORD PROCESSOR POC GLUCOSE Routine 01/29/2006 6:12 AM WORD PROCESSOR CBC WITH DIFFERENTIAL Routine 01/29/2006 4:33 AM WORD PROCESSOR CBC WITH DIFFERENTIAL Routine 01/29/2006 4:33 AM WORD PROCESSOR PHOSPHORUS Routine 01/29/2006 4:33 AM WORD PROCESSOR MAGNESIUM LEVEL Routine 01/29/2006 4:33 AM WORD PROCESSOR CALCIUM IONIZED Routine 01/29/2006 4:33 AM WORD PROCESSOR BASIC METABOLIC PANEL Routine 01/29/2006 4:33 AM WORD PROCESSOR POC GLUCOSE Routine 01/29/2006 12:57 AM WORD PROCESSOR POC GLUCOSE Routine 01/28/2006 4:48 PM WORD PROCESSOR POC GLUCOSE Routine 01/28/2006 12:22 PM WORD PROCESSOR POC GLUCOSE Routine 01/28/2006 5:52 AM WORD PROCESSOR CBC WITH DIFFERENTIAL Routine 01/28/2006 3:20 AM WORD PROCESSOR CBC WITH DIFFERENTIAL Routine 01/28/2006 3:20 AM WORD PROCESSOR PHOSPHORUS Routine 01/28/2006 3:20 AM WORD PROCESSOR MAGNESIUM LEVEL Routine 01/28/2006 3:20 AM WORD PROCESSOR CALCIUM IONIZED Routine 01/28/2006 3:20 AM WORD PROCESSOR BASIC METABOLIC PANEL Routine 01/28/2006 3:20 AM WORD PROCESSOR POC GLUCOSE Routine 01/28/2006 12:19 AM WORD PROCESSOR POC GLUCOSE Routine 01/27/2006 5:32 PM WORD PROCESSOR POC GLUCOSE Routine 01/27/2006 12:46 PM WORD PROCESSOR CBC WITH DIFFERENTIAL Routine 01/27/2006 4:15 AM WORD PROCESSOR CBC WITH DIFFERENTIAL Routine 01/27/2006 4:15 AM WORD PROCESSOR PHOSPHORUS Routine 01/27/2006 4:15 AM WORD PROCESSOR MAGNESIUM LEVEL Routine 01/27/2006 4:15 AM WORD PROCESSOR CALCIUM IONIZED Routine 01/27/2006 4:15 AM WORD PROCESSOR BASIC METABOLIC PANEL Routine 01/27/2006 4:15 AM WORD PROCESSOR POC GLUCOSE Routine 01/27/2006 12:01 AM WORD PROCESSOR POC GLUCOSE Routine 01/26/2006 6:01 PM WORD PROCESSOR POC GLUCOSE Routine 01/26/2006 12:40 PM WORD PROCESSOR POC GLUCOSE Routine 01/26/2006 5:53 AM WORD PROCESSOR CBC WITH DIFFERENTIAL Routine 01/26/2006 3:15 AM WORD PROCESSOR CBC WITH DIFFERENTIAL Routine 01/26/2006 3:15 AM WORD PROCESSOR PHOSPHORUS Routine 01/26/2006 3:15 AM WORD PROCESSOR MAGNESIUM LEVEL Routine 01/26/2006 3:15 AM WORD PROCESSOR CALCIUM IONIZED Routine 01/26/2006 3:15 AM WORD PROCESSOR BASIC METABOLIC PANEL Routine 01/26/2006 3:15 AM WORD PROCESSOR POC GLUCOSE Routine 01/25/2006 11:44 PM WORD PROCESSOR POC GLUCOSE Routine 01/25/2006 5:42 PM WORD PROCESSOR POC GLUCOSE Routine 01/25/2006 12:30 PM WORD PROCESSOR POC GLUCOSE Routine 01/25/2006 5:25 AM WORD PROCESSOR CBC WITH DIFFERENTIAL Routine 01/25/2006 3:35 AM WORD PROCESSOR CBC WITH DIFFERENTIAL Routine 01/25/2006 3:35 AM WORD PROCESSOR PHOSPHORUS Routine 01/25/2006 3:35 AM WORD PROCESSOR MAGNESIUM LEVEL Routine 01/25/2006 3:35 AM WORD PROCESSOR CALCIUM IONIZED Routine 01/25/2006 3:35 AM WORD PROCESSOR BASIC METABOLIC PANEL Routine 01/25/2006 3:35 AM WORD PROCESSOR POC GLUCOSE Routine 01/25/2006 12:05 AM WORD PROCESSOR POC GLUCOSE Routine 01/24/2006 6:35 PM WORD PROCESSOR POC GLUCOSE Routine 01/24/2006 12:18 PM WORD PROCESSOR POC GLUCOSE Routine 01/24/2006 5:50 AM WORD PROCESSOR CBC WITH DIFFERENTIAL Routine 01/24/2006 3:40 AM WORD PROCESSOR CBC WITH DIFFERENTIAL Routine 01/24/2006 3:40 AM WORD PROCESSOR PHOSPHORUS Routine 01/24/2006 3:40 AM WORD PROCESSOR MAGNESIUM LEVEL Routine 01/24/2006 3:40 AM WORD PROCESSOR CALCIUM IONIZED Routine 01/24/2006 3:40 AM WORD PROCESSOR BASIC METABOLIC PANEL Routine 01/24/2006 3:40 AM WORD PROCESSOR POC GLUCOSE Routine 01/23/2006 11:29 PM WORD PROCESSOR POC GLUCOSE Routine 01/23/2006 5:20 PM WORD PROCESSOR POC GLUCOSE Routine 01/23/2006 4:35 PM WORD PROCESSOR POC GLUCOSE Routine 01/23/2006 1:02 PM WORD PROCESSOR CBC WITH DIFFERENTIAL Routine 01/23/2006 3:38 AM WORD PROCESSOR CBC WITH DIFFERENTIAL Routine 01/23/2006 3:38 AM WORD PROCESSOR PHOSPHORUS Routine 01/23/2006 3:38 AM WORD PROCESSOR MAGNESIUM LEVEL Routine 01/23/2006 3:38 AM WORD PROCESSOR CALCIUM IONIZED Routine 01/23/2006 3:38 AM WORD PROCESSOR BASIC METABOLIC PANEL Routine 01/23/2006 3:38 AM WORD PROCESSOR POC GLUCOSE Routine 01/22/2006 11:34 PM CDT [...] AM CDT BLOOD GAS ARTERIAL Routine 12/11/2005 3 :30 AM CDT CALCIUM IONIZED Routine 12/11/2005 3:30 [...] AM CDT BLOOD GAS ARTERIAL Routine 12/02/2005 4: 15 AM CDT CALCIUM IONIZED Routine 12/02/2005 4:15 [...] Results * POC GLUCOSE (02/08/2006 6:40 PM WORD PROCESSOR) [facility] GLUCOSE POC 96 65 - 109 mg/dL INTERFACE SYSTEM 02/08/2006 6:40 PM WORD PROCESSOR Wicho Gomez MD POINT OF CARE TESTING Final R esult Performing Organization Address [facility] de Phone Number INTERFACE SYSTEM Refer to clinic/hospital department * (ABNORMAL) POC GLUCOSE (02/08/2006 2:15 PM WORD PROCESSOR) GLUCOSE POC 149(H) 65 - 109 mg/dL INTERFACE SYSTEM 02/08/2006 2:15 PM WORD PROCESSOR Wicho Gomez MD POINT OF CARE TESTING Final R esult Performing Organization Address [facility] de Phone Number INTERFACE SYSTEM Refer to clinic/hospital department * CBC WITH DIFFERENTIAL (02/08/2006 3:30 AM WORD PROCESSOR) NEUTROPHIL ABSOLUTE 3.40 1.90 - 7.00 K/uL [...] Plt Reviewed INTERFACE SYSTEM 02/08/2006 3:30 AM WORD PROCESSOR Harshad Heller MD HEMATOLOGY ORDERABLES Final Res ult Performing Organization Address [facility] de Phone Number INTERFACE SYSTEM Refer to clinic/hospital department * (ABNORMAL) CBC WITH DIFFERENTIAL (02/08/2006 3:30 AM WORD PROCESSOR) WBC 5.0 4.0 - 9.8 K/uL INTERFACE [...] 12.4 fL INTERFACE SYSTEM 02/08/2006 3:30 AM WORD PROCESSOR Harshad Heller MD HEMATOLOGY ORDERABLES Final Res ult Performing Organization Address [facility] Phone Number INTERFACE SYSTEM Refer to clinic/hospital department * (ABNORMAL) PHOSPHORUS (02/08/2006 3:30 AM WORD PROCESSOR) PHOSPHORUS 5.1(H) 2.5 - 4.5 mg/dL INTERFACE SYSTEM 02/08/2006 3:30 AM WORD PROCESSOR Harshad Heller MD CHEMISTRY ORDERABLES Final Resu lt Performing Organization Address [facility] Phone Number INTERFACE SYSTEM Refer to clinic/hospital department * MAGNESIUM LEVEL (02/08/2006 3:30 AM WORD PROCESSOR) MAGNESIUM 2.1 1.5 - 2.5 mg/dL INTERFACE SYSTEM 02/08/2006 3:30 AM WORD PROCESSOR Harshad Heller MD CHEMISTRY ORDERABLES Final Resu lt Performing Organization Address [facility] Phone Number INTERFACE SYSTEM Refer to clinic/hospital department * (ABNORMAL) CALCIUM IONIZED (02/08/2006 3:30 AM WORD PROCESSOR) CALCIUM IONIZED 4.36(L) 4.76 - 5.16 mg/dL INTERFACE SYSTEM 02/08/2006 3:30 AM WORD PROCESSOR us Harshad Heller MD CHEMISTRY ORDERABLES Final Resu lt Performing Organization Address [facility] Phone Number INTERFACE SYSTEM Refer to clinic/hospital department * (ABNORMAL) BASIC METABOLIC PANEL (02/08/2006 3:30 AM WORD PROCESSOR) GLUCOSE 103(H) 65 - 99 mg/dL INTERFACE [...] 30 mmol/L INTERFACE SYSTEM 02/08/2006 3:30 AM WORD PROCESSOR Harshad Heller MD CHEMISTRY ORDERABLES Final Resu Performing Organization Address [facility] Phone Number INTERFACE SYSTEM Refer to clinic/hospital department * POC GLUCOSE (02/07/2006 11:50 PM WORD PROCESSOR) GLUCOSE POC 93 65 - 109 mg/dL INTERFACE SYSTEM 02/07/2006 11:5 0 PM WORD PROCESSOR us Wicho Gomez MD POINT OF CARE TESTING Final R esult Performing Organization Address [facility] Phone Number INTERFACE SYSTEM Refer to clinic/hospital department * POC GLUCOSE (02/07/2006 6:13 PM WORD PROCESSOR) GLUCOSE POC 84 65 - 109 mg/dL INTERFACE SYSTEM 02/07/2006 6:13 PM WORD PROCESSOR us Wicho Gomez MD POINT OF CARE TESTING Final R esult Performing Organization Address [facility] Phone Number INTERFACE SYSTEM Refer to clinic/hospital department * POC GLUCOSE (02/07/2006 12:03 PM WORD PROCESSOR) GLUCOSE POC 103 65 - 109 mg/dL INTERFACE SYSTEM 02/07/2006 12:0 3 PM WORD PROCESSOR us Wicho Gomez MD POINT OF CARE TESTING Final R esult Performing Organization Address City/State/[facility] Co de Phone Number INTERFACE SYSTEM Refer to clinic/hospital department * CBC WITH DIFFERENTIAL (02/07/2006 5:10 AM WORD PROCESSOR) NEUTROPHILS 68 45 - 70 % INTERFAC [...] 0.20 K/uL INTERFACE SYSTEM 02/07/2006 5:10 AM WORD PROCESSOR us Romie Laughlin MD HEMATOLOGY ORDERABLES Final Result Performing Organization Address City/[facility] de Phone Number INTERFACE SYSTEM Refer to clinic/hospital department * (ABNORMAL) CBC WITH DIFFERENTIAL (02/07/2006 5:10 AM WORD PROCESSOR) WBC 5.5 4.0 - 9.8 K/uL INTERFACE [...] 12.4 fL INTERFACE SYSTEM 02/07/2006 5:10 AM WORD PROCESSOR Romie Laughlin MD HEMATOLOGY ORDERABLES Final Result Performing Organization Address City/[facility] Phone Number INTERFACE SYSTEM Refer to clinic/hospital department * VANCOMYCIN LEVEL RANDOM (02/07/2006 5:10 AM WORD PROCESSOR) VANCOMYCIN, RANDOM 14.5 ug/mL INTERFACE SYSTEM Comment: Vancomycin Trough Therapeutic Range = 5.0 - 15.0 ug/mL Vancomycin Trough Toxic Level = >15.0 ug/mL Vancomycin Peak Therapeutic Range = 20.0 - 40.0 ug/mL Vancomycin Peak Toxic Level = >40.0 ug/mL 02/07/2006 5:10 AM WORD PROCESSOR Wicho Gomez MD CHEMISTRY ORDERABLES Final Re sult Performing Organization Address [facility] Phone Number INTERFACE SYSTEM Refer to clinic/hospital department * (ABNORMAL) PREALBUMIN (02/07/2006 5:10 AM WORD PROCESSOR) PREALBUMIN 41(H) 20 - 40 mg/dL INTERFACE SYSTEM 02/07/2006 5:10 AM WORD PROCESSOR Romie Laughlin MD CHEMISTRY ORDERABLES Final R esult Performing Organization Address [facility] Phone Number INTERFACE SYSTEM Refer to clinic/hospital department * PHOSPHORUS (02/07/2006 5:10 AM WORD PROCESSOR) PHOSPHORUS 4.3 2.5 - 4.5 mg/dL INTERFACE SYSTEM 02/07/2006 5:10 AM WORD PROCESSOR Romie Laughlin MD CHEMISTRY ORDERABLES Final R esult Performing Organization Address [facility] de Phone Number INTERFACE SYSTEM Refer to clinic/hospital department * MAGNESIUM LEVEL (02/07/2006 5:10 AM WORD PROCESSOR) MAGNESIUM 2.2 1.5 - 2.5 mg/dL INTERFACE SYSTEM 02/07/2006 5:10 AM WORD PROCESSOR Romie Laughlin MD CHEMISTRY ORDERABLES Final R esult Performing Organization Address City/[facility] Co de Phone Number INTERFACE SYSTEM Refer to clinic/hospital department * (ABNORMAL) CALCIUM IONIZED (02/07/2006 5:10 AM WORD PROCESSOR) CALCIUM IONIZED 4.16(L) 4.76 - 5.16 mg/dL INTERFACE SYSTEM 02/07/2006 5:10 AM WORD PROCESSOR Romie Laughlin MD CHEMISTRY ORDERABLES Final R esult Performing Organization Address [facility] de Phone Number INTERFACE SYSTEM Refer to clinic/hospital department * (ABNORMAL) COMPREHENSIVE METABOLIC PANEL (02/07/2006 5:10 AM WORD PROCESSOR) GLUCOSE 90 65 - 99 mg/dL INTERFACE [...] 30 mmol/L INTERFACE SYSTEM 02/07/2006 5:10 AM WORD PROCESSOR Romie Laughlin MD CHEMISTRY ORDERABLES Final R esult Performing Organization Address City/[facility] Co de Phone Number INTERFACE SYSTEM Refer to clinic/hospital department * POC GLUCOSE (02/07/2006 12:27 AM WORD PROCESSOR) GLUCOSE POC 81 65 - 109 mg/dL INTERFACE SYSTEM 02/07/2006 12:2 7 AM WORD PROCESSOR us Wicho Gomez MD POINT OF CARE TESTING Final R esult Performing Organization Address City/State/[facility] Co de Phone Number INTERFACE SYSTEM Refer to clinic/hospital department * POC GLUCOSE (02/06/2006 5:44 PM WORD PROCESSOR) GLUCOSE POC 95 65 - 109 mg/dL INTERFACE SYSTEM 02/06/2006 5:44 PM WORD PROCESSOR us Wicho Gomez MD POINT OF CARE TESTING Final R esult Performing Organization Address City/[facility] de Phone Number INTERFACE SYSTEM Refer to clinic/hospital department * POC GLUCOSE (02/06/2006 11:09 AM WORD PROCESSOR) GLUCOSE POC 84 65 - 109 mg/dL INTERFACE SYSTEM 02/06/2006 11:0 9 AM WORD PROCESSOR us Wicho Gomez MD POINT OF CARE TESTING Final R esult Performing Organization Address [facility] de Phone Number INTERFACE SYSTEM Refer to clinic/hospital department * (ABNORMAL) POC GLUCOSE (02/06/2006 6:08 AM WORD PROCESSOR) GLUCOSE POC 154(H) 65 - 109 mg/dL INTERFACE SYSTEM 02/06/2006 6:08 AM WORD PROCESSOR us Wicho Gomez MD POINT OF CARE TESTING Final R esult Performing Organization Address City/[facility] de Phone Number INTERFACE SYSTEM Refer to clinic/hospital department * CBC WITH DIFFERENTIAL (02/06/2006 3:40 AM WORD PROCESSOR) NEUTROPHILS 68 45 - 70 % INTERFAC [...] 0.20 K/uL INTERFACE SYSTEM 02/06/2006 3:40 AM WORD PROCESSOR Romie Laughlin MD HEMATOLOGY ORDERABLES Final Result Performing Organization Address City/[facility] de Phone Number INTERFACE SYSTEM Refer to clinic/hospital department * (ABNORMAL) CBC WITH DIFFERENTIAL (02/06/2006 3:40 AM WORD PROCESSOR) WBC 6.1 4.0 - 9.8 K/uL INTERFACE [...] 12.4 fL INTERFACE SYSTEM 02/06/2006 3:40 AM WORD PROCESSOR Romie Laughlin MD HEMATOLOGY ORDERABLES Final Result Performing Organization Address City/[facility] de Phone Number INTERFACE SYSTEM Refer to clinic/hospital department * PHOSPHORUS (02/06/2006 3:40 AM WORD PROCESSOR) PHOSPHORUS 3.7 2.5 - 4.5 mg/dL INTERFACE SYSTEM 02/06/2006 3:40 AM WORD PROCESSOR Romie Laughlin MD CHEMISTRY ORDERABLES Final R esult Performing Organization Address City/[facility]/ZIP Co de Phone Number INTERFACE SYSTEM Refer to clinic/hospital department * MAGNESIUM LEVEL (02/06/2006 3:40 AM WORD PROCESSOR) MAGNESIUM 2.1 1.5 - 2.5 mg/dL INTERFACE SYSTEM 02/06/2006 3:40 AM WORD PROCESSOR Romie Laughlin MD CHEMISTRY ORDERABLES Final R esult Performing Organization Address [facility] Phone Number INTERFACE SYSTEM Refer to clinic/hospital department * (ABNORMAL) CALCIUM IONIZED (02/06/2006 3:40 AM WORD PROCESSOR) CALCIUM IONIZED 4.04(L) 4.76 - 5.16 mg/dL INTERFACE SYSTEM 02/06/2006 3:40 AM WORD PROCESSOR Romie Laughlin MD CHEMISTRY ORDERABLES Final R esult Performing Organization Address [facility] Phone Number INTERFACE SYSTEM Refer to clinic/hospital department * (ABNORMAL) BASIC METABOLIC PANEL (02/06/2006 3:40 AM WORD PROCESSOR) GLUCOSE 142(H) 65 - 99 mg/dL INTERFACE [...] 30 mmol/L INTERFACE SYSTEM 02/06/2006 3:40 AM WORD PROCESSOR Romie Laughlin MD CHEMISTRY ORDERABLES Final R esult Performing Organization Address [facility] Phone Number INTERFACE SYSTEM Refer to clinic/hospital department * VANCOMYCIN LEVEL RANDOM (02/06/2006 3:20 AM WORD PROCESSOR) VANCOMYCIN, RANDOM 17.5 ug/mL INTERFACE SYSTEM Comment: Vancomycin Trough Therapeutic Range = 5.0 - 15.0 ug/mL Vancomycin Trough Toxic Level = >15.0 ug/mL Vancomycin Peak Therapeutic Range = 20.0 - 40.0 ug/mL Vancomycin Peak Toxic Level = >40.0 ug/mL 02/06/2006 3:20 AM WORD PROCESSOR us Wicho Gomez MD CHEMISTRY ORDERABLES Final Re sult Performing Organization Address [facility] Phone Number INTERFACE SYSTEM Refer to clinic/hospital department * (ABNORMAL) POC GLUCOSE (2006 11:59 PM WORD PROCESSOR) GLUCOSE POC 137(H) 65 - 109 mg/dL INTERFACE SYSTEM 2006 11:5 9 PM WORD PROCESSOR Result Roxie Gomez MD POINT OF CARE TESTING Final R esult Performing Organization Address [facility] Phone Number INTERFACE SYSTEM Refer to clinic/hospital department * POC GLUCOSE (2006 5:23 PM WORD PROCESSOR) GLUCOSE POC 90 65 - 109 mg/dL INTERFACE SYSTEM 2006 5:23 PM WORD PROCESSOR Result Roxie Gomez MD POINT OF CARE TESTING Final R krystalult Performing Organization Address [facility] Phone Number INTERFACE SYSTEM Refer to clinic/hospital department * POC GLUCOSE (2006 4:36 PM WORD PROCESSOR) GLUCOSE POC 82 65 - 109 mg/dL INTERFACE SYSTEM 2006 4:36 PM WORD PROCESSOR Result Roxie Gomez MD POINT OF CARE TESTING Final R esult Performing Organization Address [facility] Phone Number INTERFACE SYSTEM Refer to clinic/hospital department * (ABNORMAL) POC GLUCOSE (2006 12:52 PM WORD PROCESSOR) GLUCOSE POC 164(H) 65 - 109 mg/dL INTERFACE SYSTEM 2006 12:5 2 PM WORD PROCESSOR Wicho Gomez MD POINT OF CARE TESTING Final R esult Performing Organization Address [facility] de Phone Number INTERFACE SYSTEM Refer to clinic/hospital department * (ABNORMAL) POC GLUCOSE (2006 6:13 AM WORD PROCESSOR) Pathologist [facility] GLUCOSE POC 183(H) 65 - 109 mg/dL INTERFACE SYSTEM 2006 6:13 AM WORD PROCESSOR Wicho Gomez MD POINT OF CARE TESTING Final R esult Performing Organization Address [facility] de Phone Number INTERFACE SYSTEM Refer to clinic/hospital department * (ABNORMAL) CBC WITH DIFFERENTIAL (2006 3:45 AM WORD PROCESSOR) Pathologist [facility] NEUTROPHILS 67 45 - 70 % INTERFAC [...] 0.20 K/uL INTERFACE SYSTEM 2006 3:45 AM WORD PROCESSOR Romie Laughlin MD HEMATOLOGY ORDERABLES Final Result Performing Organization Address [facility] de Phone Number INTERFACE SYSTEM Refer to clinic/hospital department * (ABNORMAL) CBC WITH DIFFERENTIAL (2006 3:45 AM WORD PROCESSOR) WBC 4.3 4.0 - 9.8 K/uL INTERFACE [...] 12.4 fL INTERFACE SYSTEM 2006 3:45 AM WORD PROCESSOR Romie Laughlin MD HEMATOLOGY ORDERABLES Final Result Performing Organization Address [facility] de Phone Number INTERFACE SYSTEM Refer to clinic/hospital department * PHOSPHORUS (2006 3:45 AM WORD PROCESSOR) PHOSPHORUS 3.7 2.5 - 4.5 mg/dL INTERFACE SYSTEM 2006 3:45 AM WORD PROCESSOR Romie Laughlin MD CHEMISTRY ORDERABLES Final R esult Performing Organization Address [facility] de Phone Number INTERFACE SYSTEM Refer to clinic/hospital department * MAGNESIUM LEVEL (2006 3:45 AM WORD PROCESSOR) MAGNESIUM 1.9 1.5 - 2.5 mg/dL INTERFACE SYSTEM 2006 3:45 AM WORD PROCESSOR us Romie Laughlin MD CHEMISTRY ORDERABLES Final R esult Performing Organization Address [facility] de Phone Number INTERFACE SYSTEM Refer to clinic/hospital department * (ABNORMAL) CALCIUM IONIZED (2006 3:45 AM WORD PROCESSOR) CALCIUM IONIZED 4.12(L) 4.76 - 5.16 mg/dL INTERFACE SYSTEM 2006 3:45 AM WORD PROCESSOR us Romie Laughlin MD CHEMISTRY ORDERABLES Final R esult Performing Organization Address [place]/[facility] de Phone Number INTERFACE SYSTEM Refer to clinic/hospital department * (ABNORMAL) BASIC METABOLIC PANEL (2006 3:45 AM WORD PROCESSOR) GLUCOSE 125(H) 65 - 99 mg/dL INTERFACE [...] 30 mmol/L INTERFACE SYSTEM 2006 3:45 AM WORD PROCESSOR Romie Laughlin MD CHEMISTRY ORDERABLES Final R esult Performing Organization Address [facility] Phone Number INTERFACE SYSTEM Refer to clinic/hospital department * (ABNORMAL) POC GLUCOSE (2006 12:39 AM WORD PROCESSOR) GLUCOSE POC 154(H) 65 - 109 mg/dL INTERFACE SYSTEM 2006 12:3 9 AM WORD PROCESSOR Wicho Gomez MD POINT OF CARE TESTING Final R esult Performing Organization Address [facility] Phone Number INTERFACE SYSTEM Refer to clinic/hospital department * POC GLUCOSE (02/04/2006 10:17 PM WORD PROCESSOR) GLUCOSE POC 81 65 - 109 mg/dL INTERFACE SYSTEM 02/04/2006 10:1 7 PM WORD PROCESSOR us Wicho Gomez MD POINT OF CARE TESTING Final R esult Performing Organization Address [facility] de Phone Number INTERFACE SYSTEM Refer to clinic/hospital department * CBC WITH DIFFERENTIAL (02/04/2006 4:00 AM WORD PROCESSOR) NEUTROPHILS 68 45 - 70 % INTERFAC [...] 0.20 K/uL INTERFACE SYSTEM 02/04/2006 4:00 AM WORD PROCESSOR Wicho Gomez MD HEMATOLOGY ORDERABLES Final R esult Performing Organization Address [place]/[facility] de Phone Number INTERFACE SYSTEM Refer to clinic/hospital department * (ABNORMAL) CBC WITH DIFFERENTIAL (02/04/2006 4:00 AM WORD PROCESSOR) WBC 5.1 4.0 - 9.8 K/uL INTERFACE [...] 12.4 fL INTERFACE SYSTEM 02/04/2006 4:00 AM WORD PROCESSOR Wicho Gomez MD HEMATOLOGY ORDERABLES Final R esult Performing Organization Address [place]/[facility] Co de Phone Number INTERFACE SYSTEM Refer to clinic/hospital department * (ABNORMAL) PHOSPHORUS (02/04/2006 4:00 AM WORD PROCESSOR) PHOSPHORUS 4.7(H) 2.5 - 4.5 mg/dL INTERFACE SYSTEM 02/04/2006 4:00 AM WORD PROCESSOR us Wicho Gomez MD CHEMISTRY ORDERABLES Final Re sult Performing Organization Address [facility] Phone Number INTERFACE SYSTEM Refer to clinic/hospital department * MAGNESIUM LEVEL (02/04/2006 4:00 AM WORD PROCESSOR) MAGNESIUM 2.2 1.5 - 2.5 mg/dL INTERFACE SYSTEM 02/04/2006 4:00 AM WORD PROCESSOR us Wicho Gomez MD CHEMISTRY ORDERABLES Final Re sult Performing Organization Address [facility] Number INTERFACE SYSTEM Refer to clinic/hospital department * (ABNORMAL) CALCIUM IONIZED (02/04/2006 4:00 AM WORD PROCESSOR) CALCIUM IONIZED 3.92(L) 4.76 - 5.16 mg/dL INTERFACE SYSTEM 02/04/2006 4:00 AM WORD PROCESSOR us Wicho Gomez MD CHEMISTRY ORDERABLES Final [facility] Performing Organization Address [facility] INTERFACE SYSTEM Refer to clinic/hospital department * (ABNORMAL) BASIC METABOLIC PANEL (02/04/2006 4:00 AM WORD PROCESSOR) GLUCOSE 103(H) 65 - 99 mg/dL INTERFACE [...] 30 mmol/L INTERFACE SYSTEM 02/04/2006 4:00 AM WORD PROCESSOR us Wicho Gomez MD CHEMISTRY ORDERABLES Final Re sult Performing Organization Address [facility] Phone Number INTERFACE SYSTEM Refer to clinic/hospital department * (ABNORMAL) POC GLUCOSE (02/04/2006 12:10 AM WORD PROCESSOR) GLUCOSE POC 113(H) 65 - 109 mg/dL INTERFACE SYSTEM 02/04/2006 12:1 0 AM WORD PROCESSOR Result Roxie Gomez MD POINT OF CARE TESTING Final R esult Performing Organization Address [facility] Phone Number INTERFACE SYSTEM Refer to clinic/hospital department * POC GLUCOSE (02/03/2006 4:58 PM WORD PROCESSOR) GLUCOSE POC 87 65 - 109 mg/dL INTERFACE SYSTEM 02/03/2006 4:58 PM WORD PROCESSOR Result Roxie Gomez MD POINT OF CARE TESTING Final R krystalult Performing Organization Address [facility] Phone Number INTERFACE SYSTEM Refer to clinic/hospital department * (ABNORMAL) POC GLUCOSE (02/03/2006 12:04 PM WORD PROCESSOR) GLUCOSE POC 60(L) 65 - 109 mg/dL INTERFACE SYSTEM 02/03/2006 12:0 4 PM WORD PROCESSOR Result Roxie Gomez MD POINT OF CARE TESTING Final R esult Performing Organization Address [facility] Phone Number INTERFACE SYSTEM Refer to clinic/hospital department * (ABNORMAL) POC GLUCOSE (02/03/2006 6:36 AM WORD PROCESSOR) GLUCOSE POC 195(H) 65 - 109 mg/dL INTERFACE SYSTEM 02/03/2006 6:36 AM WORD PROCESSOR Result Roxie Gomez MD POINT OF CARE TESTING Final R esult Performing Organization Address [facility] Phone Number INTERFACE SYSTEM Refer to clinic/hospital department * (ABNORMAL) CBC WITH DIFFERENTIAL (02/03/2006 4:00 AM WORD PROCESSOR) NEUTROPHILS 70 45 - 70 % INTERFAC [...] 0.20 K/uL INTERFACE SYSTEM 02/03/2006 4:00 AM WORD PROCESSOR Wicho Gomez MD HEMATOLOGY ORDERABLES Final R esult Performing Organization Address [place]/[facility] de Phone Number INTERFACE SYSTEM Refer to clinic/hospital department * (ABNORMAL) CBC WITH DIFFERENTIAL (02/03/2006 4:00 AM WORD PROCESSOR) WBC 5.3 4.0 - 9.8 K/uL INTERFACE [...] 12.4 fL INTERFACE SYSTEM 02/03/2006 4:00 AM WORD PROCESSOR Wicho Gomez MD HEMATOLOGY ORDERABLES Final R esult Performing Organization Address [place]/[facility] de Phone Number INTERFACE SYSTEM Refer to clinic/hospital department * PT AND APTT (02/03/2006 4:00 AM WORD PROCESSOR) PTT 32.9 24.4 - 36.4 Seconds INTERFACE SYSTEM Comment: PTT Therapeutic Range: Heparin Level PTT (seconds) <0.10 units/mL <53 0.10 - 0.30 units/mL 53 - 67 0.30 - 0.70 units/mL* 67 - 95* 0.70 - 1.00 units/mL 95 - 116 *corresponds to therapeutic range for unfractionated heparin PROTIME 13.6 12.7 - 15.1 Seconds INTERFACE SYSTEM INR 0.9 0.9 - 1.1 INTERFACE SYSTEM Comment: INR Therapeutic Range: Adult: 2.0 - 3.0 for pulmonary embolism or prophylaxis against venous thrombosis or systemic embolization. 2.0 - 3.0 for patients with tissue heart valves. 2.5 - 3.5 for patients with mechanical heart valves or post [place]. Pediatric (12 years and under): 1.5 - 3.0 Although the target range in children is not well established , INR values of 1.5 - 3.0 are recommended for most patients. Higher values have been used in children with prosthetic cardiac valves and hereditary clotting disorders. (<3 days) therapeutic ranges have not been established. 02/03/2006 4:00 AM WORD PROCESSOR Wicho Gomez MD HEMATOLOGY ORDERABLES Final R esult Performing Organization Address [place]/[facility] Co de Phone Number INTERFACE SYSTEM Refer to clinic/hospital department * PHOSPHORUS (02/03/2006 4:00 AM WORD PROCESSOR) PHOSPHORUS 4.5 2.5 - 4.5 mg/dL INTERFACE SYSTEM 02/03/2006 4:00 AM WORD PROCESSOR Wicho Gomez MD CHEMISTRY ORDERABLES Final Re sult INTERFACE SYSTEM Refer to clinic/hospital department * MAGNESIUM LEVEL (02/03/2006 4:00 AM WORD PROCESSOR) MAGNESIUM 1.9 1.5 - 2.5 mg/dL INTERFACE SYSTEM 02/03/2006 4:00 AM WORD PROCESSOR Wicho Gomez MD CHEMISTRY ORDERABLES Final Re sult Performing Organization Address [facility] Phone Number INTERFACE SYSTEM Refer to clinic/hospital department * (ABNORMAL) CALCIUM IONIZED (02/03/2006 4:00 AM WORD PROCESSOR) CALCIUM IONIZED 4.04(L) 4.76 - 5.16 mg/dL INTERFACE SYSTEM 02/03/2006 4:00 AM WORD PROCESSOR Wicho Gomez MD CHEMISTRY ORDERABLES Final Re sult Performing Organization Address [facility] Phone Number INTERFACE SYSTEM Refer to clinic/hospital department * (ABNORMAL) BASIC METABOLIC PANEL (02/03/2006 4:00 AM WORD PROCESSOR) GLUCOSE 154(H) 65 - 99 mg/dL INTERFACE [...] 30 mmol/L INTERFACE SYSTEM 02/03/2006 4:00 AM WORD PROCESSOR Wicho Gomez MD CHEMISTRY ORDERABLES Final Re sult Performing Organization Address [facility] Phone Number INTERFACE SYSTEM Refer to clinic/hospital department * (ABNORMAL) POC GLUCOSE (02/03/2006 12:22 AM WORD PROCESSOR) GLUCOSE POC 137(H) 65 - 109 mg/dL INTERFACE SYSTEM 02/03/2006 12:2 2 AM WORD PROCESSOR us Wicho Gomez MD POINT OF CARE TESTING Final R esult Performing Organization Address [facility] Phone Number INTERFACE SYSTEM Refer to clinic/hospital department * (ABNORMAL) VANCOMYCIN LEVEL TROUGH (02/03/2006 12:15 AM WORD PROCESSOR) VANCOMYCIN, TROUGH 30.8(AA) 5.0 - 15.0 ug/mL INTERFACE SYSTEM Comment: Vancomycin Trough Toxic Level= >15.0 ug/mL Results called to regine at 02/04/2006 1:26 AM and read back verified. 02/03/2006 12:1 5 AM WORD PROCESSOR us Wicho Gomez MD CHEMISTRY ORDERABLES Final Re sult Performing Organization Address [facility] Phone Number INTERFACE SYSTEM Refer to clinic/hospital department * POC GLUCOSE (02/02/2006 5:25 PM WORD PROCESSOR) GLUCOSE POC 85 65 - 109 mg/dL INTERFACE SYSTEM 02/02/2006 5:25 PM WORD PROCESSOR us Wicho Gomez MD POINT OF CARE TESTING Final R esult Performing Organization Address [facility] Phone Number INTERFACE SYSTEM Refer to clinic/hospital department * POC GLUCOSE (02/02/2006 1:29 PM WORD PROCESSOR) GLUCOSE POC 106 65 - 109 mg/dL INTERFACE SYSTEM 02/02/2006 1:29 PM WORD PROCESSOR us Wicho Gomez MD POINT OF CARE TESTING Final R krystalult Performing Organization Address [facility] Phone Number INTERFACE SYSTEM Refer to clinic/hospital department * POC GLUCOSE (02/02/2006 11:55 AM WORD PROCESSOR) GLUCOSE POC 75 65 - 109 mg/dL INTERFACE SYSTEM 02/02/2006 11:5 5 AM WORD PROCESSOR us Wicho Gomez MD POINT OF CARE TESTING Final R esult Performing Organization Address [facility] Phone Number INTERFACE SYSTEM Refer to clinic/hospital department * (ABNORMAL) POC GLUCOSE (02/02/2006 5:56 AM WORD PROCESSOR) GLUCOSE POC 191(H) 65 - 109 mg/dL INTERFACE SYSTEM 02/02/2006 5:56 AM WORD PROCESSOR Wicho Gomez MD POINT OF CARE TESTING Final R esult Performing Organization Address [facility] de Phone Number INTERFACE SYSTEM Refer to clinic/hospital department * PHOSPHORUS (02/02/2006 4:29 AM WORD PROCESSOR) PHOSPHORUS 2.9 2.5 - 4.5 mg/dL INTERFACE SYSTEM 02/02/2006 4:29 AM WORD PROCESSOR Wicho Gomez MD CHEMISTRY ORDERABLES Final Re sult Performing Organization Address [facility] de Phone Number INTERFACE SYSTEM Refer to clinic/hospital department * MAGNESIUM LEVEL (02/02/2006 4:29 AM WORD PROCESSOR) MAGNESIUM 2.0 1.5 - 2.5 mg/dL INTERFACE SYSTEM 02/02/2006 4:29 AM WORD PROCESSOR Wicho Gomez MD CHEMISTRY ORDERABLES Final Re sult Performing Organization Address [facility] de Phone Number INTERFACE SYSTEM Refer to clinic/hospital department * (ABNORMAL) CBC WITH DIFFERENTIAL (02/02/2006 3:30 AM WORD PROCESSOR) NEUTROPHILS 75(H) 45 - 70 % INTERFAC [...] 0.20 K/uL INTERFACE SYSTEM 02/02/2006 3:30 AM WORD PROCESSOR Romie Laughlin MD HEMATOLOGY ORDERABLES Final Result Performing Organization Address [facility] Phone Number INTERFACE SYSTEM Refer to clinic/hospital department * (ABNORMAL) CBC WITH DIFFERENTIAL (02/02/2006 3:30 AM WORD PROCESSOR) WBC 5.9 4.0 - 9.8 K/uL INTERFACE [...] 12.4 fL INTERFACE SYSTEM 02/02/2006 3:30 AM WORD PROCESSOR Romie Laughlin MD HEMATOLOGY ORDERABLES Final Result Performing Organization Address [facility] Phone Number INTERFACE SYSTEM Refer to clinic/hospital department * (ABNORMAL) BASIC METABOLIC PANEL (02/02/2006 3:30 AM WORD PROCESSOR) GLUCOSE 166(H) 65 - 99 mg/dL INTERFACE [...] 30 mmol/L INTERFACE SYSTEM 02/02/2006 3:30 AM WORD PROCESSOR Romie Laughlin MD CHEMISTRY ORDERABLES Final R esult Performing Organization Address [facility] Phone Number INTERFACE SYSTEM Refer to clinic/hospital department * (ABNORMAL) POC GLUCOSE (02/01/2006 11:43 PM WORD PROCESSOR) GLUCOSE POC 129(H) 65 - 109 mg/dL INTERFACE SYSTEM 02/01/2006 11:4 3 PM WORD PROCESSOR us Wicho Gomez MD POINT OF CARE TESTING Final R esult Performing Organization Address [facility] Phone Number INTERFACE SYSTEM Refer to clinic/hospital department * POC GLUCOSE (02/01/2006 5:05 PM WORD PROCESSOR) GLUCOSE POC 67 65 - 109 mg/dL INTERFACE SYSTEM 02/01/2006 5:05 PM WORD PROCESSOR us Wicho Gomez MD POINT OF CARE TESTING Final R [facility] Performing Organization Address [facility] Phone Number INTERFACE SYSTEM Refer to clinic/hospital department * POC GLUCOSE (02/01/2006 11:37 AM WORD PROCESSOR) GLUCOSE POC 84 65 - 109 mg/dL INTERFACE SYSTEM 02/01/2006 11:3 7 AM WORD PROCESSOR us Wicho Gomez MD POINT OF CARE TESTING Final R [facility] Performing Organization Address [facility] Phone Number INTERFACE SYSTEM Refer to clinic/hospital department * (ABNORMAL) POC GLUCOSE (02/01/2006 6:11 AM WORD PROCESSOR) COMMENT, GLU POC Notified RN INTERFACE SYSTEM GLUCOSE POC 166(H) 65 - 109 mg/dL INTERFACE SYSTEM 02/01/2006 6:11 AM WORD PROCESSOR Result Roxie Gomez MD POINT OF CARE TESTING Final R esult Performing Organization Address [facility] Phone Number INTERFACE SYSTEM Refer to clinic/hospital department * (ABNORMAL) COMPREHENSIVE METABOLIC PANEL (02/01/2006 4:40 AM WORD PROCESSOR) GLUCOSE 151(H) 65 - 99 mg/dL INTERFACE [...] 30 mmol/L INTERFACE SYSTEM 02/01/2006 4:40 AM WORD PROCESSOR Wicho Gomez MD CHEMISTRY ORDERABLES Final Re sult Performing Organization Address [facility] de Phone Number INTERFACE SYSTEM Refer to clinic/hospital department * OCCULT BLOOD, STOOL (02/01/2006 4:40 AM WORD PROCESSOR) Pathologist [facility] OCCULT BLOOD, STOOL Negative Negative INTERFACE SYSTEM 02/01/2006 4:40 AM WORD PROCESSOR Wicho Gomez MD BODY FLUIDS AND STOOLS Final Result Performing Organization Address [facility] de Phone Number INTERFACE SYSTEM Refer to clinic/hospital department * (ABNORMAL) CBC WITH DIFFERENTIAL (02/01/2006 4:40 AM WORD PROCESSOR) NEUTROPHILS 75(H) 45 - 70 % INTERFAC [...] 0.20 K/uL INTERFACE SYSTEM 02/01/2006 4:40 AM WORD PROCESSOR Romie Laughlin MD HEMATOLOGY ORDERABLES Final Result Performing Organization Address [place]/[facility] Phone Number INTERFACE SYSTEM Refer to clinic/hospital department * (ABNORMAL) CBC WITH DIFFERENTIAL (02/01/2006 4:40 AM WORD PROCESSOR) WBC 6.6 4.0 - 9.8 K/uL INTERFACE [...] 12.4 fL INTERFACE SYSTEM 02/01/2006 4:40 AM WORD PROCESSOR Romie Laughlin MD HEMATOLOGY ORDERABLES Final Result Performing Organization Address [place]/[facility] Phone Number INTERFACE SYSTEM Refer to clinic/hospital department * (ABNORMAL) PREALBUMIN (02/01/2006 4:40 AM WORD PROCESSOR) PREALBUMIN 49(H) 20 - 40 mg/dL INTERFACE SYSTEM 02/01/2006 4:40 AM WORD PROCESSOR Romie Laughlin MD CHEMISTRY ORDERABLES Final R esult Performing Organization Address [place]/[facility] de Phone Number INTERFACE SYSTEM Refer to clinic/hospital department * (ABNORMAL) TSH (02/01/2006 4:40 AM WORD PROCESSOR) TSH 4.25(H) 0.27 - 4.20 uU/mL INTERFACE SYSTEM 02/01/2006 4:40 AM WORD PROCESSOR Romie Laughlin MD CHEMISTRY ORDERABLES Final R esult Performing Organization Address [facility] Phone Number INTERFACE SYSTEM Refer to clinic/hospital department * T4 FREE (02/01/2006 4:40 AM WORD PROCESSOR) T4 FREE 1.4 0.9 - 1.7 ng/dL INTERFACE SYSTEM 02/01/2006 4:40 AM WORD PROCESSOR Romie Laughlin MD CHEMISTRY ORDERABLES Final R esult Performing Organization Address [facility] Phone Number INTERFACE SYSTEM Refer to clinic/hospital department * (ABNORMAL) T3 FREE (02/01/2006 4:40 AM WORD PROCESSOR) T3 FREE 2.2(L) 2.5 - 4.4 pg/mL INTERFACE SYSTEM 02/01/2006 4:40 AM WORD PROCESSOR Romie Laughlin MD CHEMISTRY ORDERABLES Final R esult Performing Organization Address [facility] Phone Number INTERFACE SYSTEM Refer to clinic/hospital department * PHOSPHORUS (02/01/2006 4:40 AM WORD PROCESSOR) PHOSPHORUS 3.3 2.5 - 4.5 mg/dL INTERFACE SYSTEM 02/01/2006 4:40 AM WORD PROCESSOR Romie Laughlin MD CHEMISTRY ORDERABLES Final R esult Performing Organization Address [facility] Phone Number INTERFACE SYSTEM Refer to clinic/hospital department * MAGNESIUM LEVEL (02/01/2006 4:40 AM WORD PROCESSOR) MAGNESIUM 2.5 1.5 - 2.5 mg/dL INTERFACE SYSTEM 02/01/2006 4:40 AM WORD PROCESSOR Romie Laughlin MD CHEMISTRY ORDERABLES Final R esult Performing Organization Address [facility] Phone Number INTERFACE SYSTEM Refer to clinic/hospital department * (ABNORMAL) POC GLUCOSE (01/31/2006 11:57 PM WORD PROCESSOR) COMMENT, GLU POC Notified RN INTERFACE SYSTEM GLUCOSE POC 124(H) 65 - 109 mg/dL INTERFACE SYSTEM 01/31/2006 11:5 7 PM WORD PROCESSOR Wicho Gomez MD POINT OF CARE TESTING Final R esult Performing Organization Address [facility] Phone Number INTERFACE SYSTEM Refer to clinic/hospital department * POC GLUCOSE (01/31/2006 5:07 PM WORD PROCESSOR) GLUCOSE POC 93 65 - 109 mg/dL INTERFACE SYSTEM 01/31/2006 5:07 PM WORD PROCESSOR Wicho Gomez MD POINT OF CARE TESTING Final R esult Performing Organization Address [facility] Phone Number INTERFACE SYSTEM Refer to clinic/hospital department * (ABNORMAL) POC GLUCOSE (01/31/2006 11:10 AM WORD PROCESSOR) GLUCOSE POC 144(H) 65 - 109 mg/dL INTERFACE SYSTEM 01/31/2006 11:1 0 AM WORD PROCESSOR Wicho Gomez MD POINT OF CARE TESTING Final R esult Performing Organization Address [facility] de Phone Number INTERFACE SYSTEM Refer to clinic/hospital department * (ABNORMAL) URINALYSIS (01/31/2006 10:03 AM WORD PROCESSOR) COLOR UA Yellow INTERFACE SYSTEM CLARITY UA [...] /HPF INTERFACE SYSTEM 01/31/2006 10:0 3 AM WORD PROCESSOR Romie Laughlin MD URINE ORDERABLES Final Resul t Performing Organization Address [facility] de Phone Number INTERFACE SYSTEM Refer to clinic/hospital department * (ABNORMAL) CBC WITH DIFFERENTIAL (01/31/2006 4:00 AM WORD PROCESSOR) NEUTROPHILS 76(H) 45 - 70 % INTERFAC [...] 0.20 K/uL INTERFACE SYSTEM 01/31/2006 4:00 AM WORD PROCESSOR us Wicho Gomez MD HEMATOLOGY ORDERABLES Final R esult Performing Organization Address [facility] de Phone Number INTERFACE SYSTEM Refer to clinic/hospital department * (ABNORMAL) CBC WITH DIFFERENTIAL (01/31/2006 4:00 AM WORD PROCESSOR) WBC 6.7 4.0 - 9.8 K/uL INTERFACE [...] 12.4 fL INTERFACE SYSTEM 01/31/2006 4:00 AM WORD PROCESSOR us Wicho Gomez MD HEMATOLOGY ORDERABLES Final R esult Performing Organization Address [facility] Phone Number INTERFACE SYSTEM Refer to clinic/hospital department * (ABNORMAL) PHOSPHORUS (01/31/2006 4:00 AM WORD PROCESSOR) PHOSPHORUS 2.0(L) 2.5 - 4.5 mg/dL INTERFACE SYSTEM 01/31/2006 4:00 AM WORD PROCESSOR us Wicho Gomez MD CHEMISTRY ORDERABLES Final Re sult Performing Organization Address [facility] Phone Number INTERFACE SYSTEM Refer to clinic/hospital department * (ABNORMAL) MAGNESIUM LEVEL (01/31/2006 4:00 AM WORD PROCESSOR) MAGNESIUM 2.6(H) 1.5 - 2.5 mg/dL INTERFACE SYSTEM 01/31/2006 4:00 AM WORD PROCESSOR us Wicho Gomez MD CHEMISTRY ORDERABLES Final Re sult Performing Organization [facility] [facility] Phone Number INTERFACE SYSTEM Refer to clinic/hospital department * (ABNORMAL) CALCIUM IONIZED (01/31/2006 4:00 AM WORD PROCESSOR) CALCIUM IONIZED 4.56(L) 4.76 - 5.16 mg/dL INTERFACE SYSTEM 01/31/2006 4:00 AM WORD PROCESSOR us Wicho Gomez MD CHEMISTRY ORDERABLES Final Re sult Performing Organization Address [facility] Phone Number INTERFACE SYSTEM Refer to clinic/hospital department * (ABNORMAL) BASIC METABOLIC PANEL (01/31/2006 4:00 AM WORD PROCESSOR) GLUCOSE 193(H) 65 - 99 mg/dL INTERFACE [...] 30 mmol/L INTERFACE SYSTEM 01/31/2006 4:00 AM WORD PROCESSOR us Wicho Gomez MD CHEMISTRY ORDERABLES Final Re sult Performing Organization Address [facility] Phone Number INTERFACE SYSTEM Refer to clinic/hospital department * (ABNORMAL) POC GLUCOSE (01/31/2006 12:34 AM WORD PROCESSOR) GLUCOSE POC 181(H) 65 - 109 mg/dL INTERFACE SYSTEM 01/31/2006 12:3 4 AM WORD PROCESSOR Wicho Gomez MD POINT OF CARE TESTING Final R [place] Performing Organization Address [facility] Phone Number INTERFACE SYSTEM Refer to clinic/hospital department * (ABNORMAL) POC GLUCOSE (01/30/2006 5:23 PM WORD PROCESSOR) GLUCOSE POC 254(H) 65 - 109 mg/dL INTERFACE SYSTEM 01/30/2006 5:23 PM WORD PROCESSOR us Wicho Gomez MD POINT OF CARE TESTING Final R d[place] Performing Organization Address [facility] Co de Phone Number INTERFACE SYSTEM Refer to clinic/hospital department * (ABNORMAL) POC GLUCOSE (01/30/2006 11:16 AM WORD PROCESSOR) GLUCOSE POC 122(H) 65 - 109 mg/dL INTERFACE SYSTEM 01/30/2006 11:1 6 AM WORD PROCESSOR Wicho Gomez MD POINT OF CARE TESTING Final R [facility] Performing Organization Address [facility] de Phone Number INTERFACE SYSTEM Refer to clinic/hospital department * (ABNORMAL) CBC WITH DIFFERENTIAL (01/30/2006 3:15 AM WORD PROCESSOR) NEUTROPHILS 80(H) 45 - 70 % INTERFAC [...] 0.20 K/uL INTERFACE SYSTEM 01/30/2006 3:15 AM WORD PROCESSOR Wicho Gomez MD HEMATOLOGY ORDERABLES Final R esult Performing Organization Address [facility] de Phone Number INTERFACE SYSTEM Refer to clinic/hospital department * (ABNORMAL) CBC WITH DIFFERENTIAL (01/30/2006 3:15 AM WORD PROCESSOR) WBC 9.3 4.0 - 9.8 K/uL INTERFACE [...] 12.4 fL INTERFACE SYSTEM 01/30/2006 3:15 AM WORD PROCESSOR us Wicho Gomez MD HEMATOLOGY ORDERABLES Final R esult Performing Organization Address [facility] Phone Number INTERFACE SYSTEM Refer to clinic/hospital department * PHOSPHORUS (01/30/2006 3:15 AM WORD PROCESSOR) PHOSPHORUS 2.9 2.5 - 4.5 mg/dL INTERFACE SYSTEM 01/30/2006 3:15 AM WORD PROCESSOR us Wicho Gomez MD CHEMISTRY ORDERABLES Final Re sult Performing Organization Address [facility] INTERFACE SYSTEM Refer to clinic/hospital department * MAGNESIUM LEVEL (01/30/2006 3:15 AM WORD PROCESSOR) MAGNESIUM 1.9 1.5 - 2.5 mg/dL INTERFACE SYSTEM 01/30/2006 3:15 AM WORD PROCESSOR us Wicho Gomez MD CHEMISTRY ORDERABLES Final Re sult Performing Organization Address [facility] Phone Number INTERFACE SYSTEM Refer to clinic/hospital department * CALCIUM IONIZED (01/30/2006 3:15 AM WORD PROCESSOR) CALCIUM IONIZED 4.80 4.76 - 5.16 mg/dL INTERFACE SYSTEM 01/30/2006 3:15 AM WORD PROCESSOR us Wicho Gomez MD CHEMISTRY ORDERABLES Final Re sult Performing Organization Address [facility] Phone Number INTERFACE SYSTEM Refer to clinic/hospital department * (ABNORMAL) BASIC METABOLIC PANEL (01/30/2006 3:15 AM WORD PROCESSOR) GLUCOSE 132(H) 65 - 99 mg/dL INTERFACE [...] 30 mmol/L INTERFACE SYSTEM 01/30/2006 3:15 AM WORD PROCESSOR us Wicho Gomez MD CHEMISTRY ORDERABLES Final Re sult Performing Organization Address [facility] Co de Phone Number INTERFACE SYSTEM Refer to clinic/hospital department * (ABNORMAL) POC GLUCOSE (01/29/2006 11:58 PM WORD PROCESSOR) GLUCOSE POC 169(H) 65 - 109 mg/dL INTERFACE SYSTEM 01/29/2006 11:5 8 PM WORD PROCESSOR us Wicho Gomez MD POINT OF CARE TESTING Final R esult Performing Organization Address [facility] de Phone Number INTERFACE SYSTEM Refer to clinic/hospital department * (ABNORMAL) POC GLUCOSE (01/29/2006 5:06 PM WORD PROCESSOR) GLUCOSE POC 127(H) 65 - 109 mg/dL INTERFACE SYSTEM 01/29/2006 5:06 PM WORD PROCESSOR us Wicho Gomez MD POINT OF CARE TESTING Final R krystalult Performing Organization Address [facility] de Phone Number INTERFACE SYSTEM Refer to clinic/hospital department * (ABNORMAL) POC GLUCOSE (01/29/2006 12:46 PM WORD PROCESSOR) GLUCOSE POC 157(H) 65 - 109 mg/dL INTERFACE SYSTEM 01/29/2006 12:4 6 PM WORD PROCESSOR us Wicho Gomez MD POINT OF CARE TESTING Final R esult Performing Organization Address [facility] Co de Phone Number INTERFACE SYSTEM Refer to clinic/hospital department * (ABNORMAL) POC GLUCOSE (01/29/2006 6:12 AM WORD PROCESSOR) GLUCOSE POC 145(H) 65 - 109 mg/dL INTERFACE SYSTEM 01/29/2006 6:12 AM WORD PROCESSOR Wicho Gomez MD POINT OF CARE TESTING Final R esult Performing Organization Address [facility] Co de Phone Number INTERFACE SYSTEM Refer to clinic/hospital department * (ABNORMAL) CBC WITH DIFFERENTIAL (01/29/2006 4:33 AM WORD PROCESSOR) NEUTROPHILS 78(H) 45 - 70 % INTERFAC [...] 0.20 K/uL INTERFACE SYSTEM 01/29/2006 4:33 AM WORD PROCESSOR Wicho Gomez MD HEMATOLOGY ORDERABLES Final R esult Performing Organization Address [facility] de Phone Number INTERFACE SYSTEM Refer to clinic/hospital department * (ABNORMAL) CBC WITH DIFFERENTIAL (01/29/2006 4:33 AM WORD PROCESSOR) WBC 9.3 4.0 - 9.8 K/uL INTERFACE [...] 12.4 fL INTERFACE SYSTEM 01/29/2006 4:33 AM WORD PROCESSOR us Wicho Gomez MD HEMATOLOGY ORDERABLES Final R esult Performing Organization Address [facility] Phone Number INTERFACE SYSTEM Refer to clinic/hospital department * (ABNORMAL) CALCIUM IONIZED (01/29/2006 4:33 AM WORD PROCESSOR) CALCIUM IONIZED 4.56(L) 4.76 - 5.16 mg/dL INTERFACE SYSTEM 01/29/2006 4:33 AM WORD PROCESSOR us Wicho Gomez MD CHEMISTRY ORDERABLES Final Re sult Performing Organization Address [facility] Phone Number INTERFACE SYSTEM Refer to clinic/hospital department * PHOSPHORUS (01/29/2006 4:33 AM WORD PROCESSOR) PHOSPHORUS 3.4 2.5 - 4.5 mg/dL INTERFACE SYSTEM 01/29/2006 4:33 AM WORD PROCESSOR us Wicho Gomez MD CHEMISTRY ORDERABLES Final Re sult Performing Organization Address [facility] Phone Number INTERFACE SYSTEM Refer to clinic/hospital department * MAGNESIUM LEVEL (01/29/2006 4:33 AM WORD PROCESSOR) MAGNESIUM 2.1 1.5 - 2.5 mg/dL INTERFACE SYSTEM 01/29/2006 4:33 AM WORD PROCESSOR us Wicho Gomez MD CHEMISTRY ORDERABLES Final Re sult Performing Organization Address [facility] Phone Number INTERFACE SYSTEM Refer to clinic/hospital department * (ABNORMAL) BASIC METABOLIC PANEL (01/29/2006 4:33 AM WORD PROCESSOR) GLUCOSE 186(H) 65 - 99 mg/dL INTERFACE [...] 30 mmol/L INTERFACE SYSTEM 01/29/2006 4:33 AM WORD PROCESSOR us Wicho Gomez MD CHEMISTRY ORDERABLES Final Re sult Performing Organization Address [facility] Phone Number INTERFACE SYSTEM Refer to clinic/hospital department * (ABNORMAL) POC GLUCOSE (01/29/2006 12:57 AM WORD PROCESSOR) GLUCOSE POC 148(H) 65 - 109 mg/dL INTERFACE SYSTEM 01/29/2006 12:5 7 AM WORD PROCESSOR us Wicho Gomez MD POINT OF CARE TESTING Final R krystalult Performing Organization Address [facility] Phone Number INTERFACE SYSTEM Refer to clinic/hospital department * (ABNORMAL) POC GLUCOSE (01/28/2006 4:48 PM WORD PROCESSOR) GLUCOSE POC 124(H) 65 - 109 mg/dL INTERFACE SYSTEM 01/28/2006 4:48 PM WORD PROCESSOR us Wicho Gomez MD POINT OF CARE TESTING Final R krystalchantelle Performing Organization Address [facility] Phone Number INTERFACE SYSTEM Refer to clinic/hospital department * (ABNORMAL) POC GLUCOSE (01/28/2006 12:22 PM WORD PROCESSOR) GLUCOSE POC 123(H) 65 - 109 mg/dL INTERFACE SYSTEM 01/28/2006 12:2 2 PM WORD PROCESSOR us Wicho Gomez MD POINT OF CARE TESTING Final R esult Performing Organization Address [facility] Phone Number INTERFACE SYSTEM Refer to clinic/hospital department * (ABNORMAL) POC GLUCOSE (01/28/2006 5:52 AM WORD PROCESSOR) GLUCOSE POC 152(H) 65 - 109 mg/dL INTERFACE SYSTEM 01/28/2006 5:52 AM WORD PROCESSOR us Wicho Gomez MD POINT OF CARE TESTING Final R esult Performing Organization Address [facility] de Phone Number INTERFACE SYSTEM Refer to clinic/hospital department * (ABNORMAL) CBC WITH DIFFERENTIAL (01/28/2006 3:20 AM WORD PROCESSOR) NEUTROPHILS 76(H) 45 - 70 % INTERFAC [...] 0.20 K/uL INTERFACE SYSTEM 01/28/2006 3:20 AM WORD PROCESSOR us Harshad Heller MD HEMATOLOGY ORDERABLES Final Res ult Performing Organization Address [facility] de Phone Number INTERFACE SYSTEM Refer to clinic/hospital department * (ABNORMAL) CBC WITH DIFFERENTIAL (01/28/2006 3:20 AM WORD PROCESSOR) WBC 7.6 4.0 - 9.8 K/uL INTERFACE [...] 12.4 fL INTERFACE SYSTEM 01/28/2006 3:20 AM WORD PROCESSOR us Harshad Heller MD HEMATOLOGY ORDERABLES Final Res ult Performing Organization Address [facility] Phone Number INTERFACE SYSTEM Refer to clinic/hospital department * PHOSPHORUS (01/28/2006 3:20 AM WORD PROCESSOR) PHOSPHORUS 3.9 2.5 - 4.5 mg/dL INTERFACE SYSTEM 01/28/2006 3:20 AM WORD PROCESSOR Harhsad Heller MD CHEMISTRY ORDERABLES Final Resu lt Performing Organization Address [facility] Phone Number INTERFACE SYSTEM Refer to clinic/hospital department * MAGNESIUM LEVEL (01/28/2006 3:20 AM WORD PROCESSOR) MAGNESIUM 2.1 1.5 - 2.5 mg/dL INTERFACE SYSTEM 01/28/2006 3:20 AM WORD PROCESSOR Harshad Heller MD CHEMISTRY ORDERABLES Final Resu lt Performing Organization Address [facility] Phone Number INTERFACE SYSTEM Refer to clinic/hospital department * CALCIUM IONIZED (01/28/2006 3:20 AM WORD PROCESSOR) CALCIUM IONIZED 4.80 4.76 - 5.16 mg/dL INTERFACE SYSTEM 01/28/2006 3:20 AM WORD PROCESSOR us Harshad Heller MD CHEMISTRY ORDERABLES Final Resu lt Performing Organization Address [facility] Phone Number INTERFACE SYSTEM Refer to clinic/hospital department * (ABNORMAL) BASIC METABOLIC PANEL (01/28/2006 3:20 AM WORD PROCESSOR) GLUCOSE 151(H) 65 - 99 mg/dL INTERFACE [...] 30 mmol/L INTERFACE SYSTEM 01/28/2006 3:20 AM WORD PROCESSOR us Harshad Heller MD CHEMISTRY ORDERABLES Final Resu lt Performing Organization Address [facility] Phone Number INTERFACE SYSTEM Refer to clinic/hospital department * (ABNORMAL) POC GLUCOSE (01/28/2006 12:19 AM WORD PROCESSOR) GLUCOSE POC 135(H) 65 - 109 mg/dL INTERFACE SYSTEM 01/28/2006 12:1 9 AM WORD PROCESSOR us Wicho Gomez MD POINT OF CARE TESTING Final R esult Performing Organization Address [facility] Phone Number INTERFACE SYSTEM Refer to clinic/hospital department * (ABNORMAL) POC GLUCOSE (01/27/2006 5:32 PM WORD PROCESSOR) GLUCOSE POC 209(H) 65 - 109 mg/dL INTERFACE SYSTEM 01/27/2006 5:32 PM WORD PROCESSOR us Wicho Gomez MD POINT OF CARE TESTING Final R esult Performing Organization Address [facility] Phone Number INTERFACE SYSTEM Refer to clinic/hospital department * (ABNORMAL) POC GLUCOSE (01/27/2006 12:46 PM WORD PROCESSOR) GLUCOSE POC 201(H) 65 - 109 mg/dL INTERFACE SYSTEM 01/27/2006 12:4 6 PM WORD PROCESSOR us Wicho Gomez MD POINT OF CARE TESTING Final R esult Performing Organization Address [facility] Phone Number INTERFACE SYSTEM Refer to clinic/hospital department * (ABNORMAL) CBC WITH DIFFERENTIAL (01/27/2006 4:15 AM WORD PROCESSOR) NEUTROPHILS 80(H) 45 - 70 % INTERFAC [...] 0.20 K/uL INTERFACE SYSTEM 01/27/2006 4:15 AM WORD PROCESSOR Harshad Heller MD HEMATOLOGY ORDERABLES Final Res ult INTERFACE SYSTEM Refer to clinic/hospital department * (ABNORMAL) CBC WITH DIFFERENTIAL (01/27/2006 4:15 AM WORD PROCESSOR) WBC 8.3 4.0 - 9.8 K/uL INTERFACE [...] 12.4 fL INTERFACE SYSTEM 01/27/2006 4:15 AM WORD PROCESSOR Harshad Heller MD HEMATOLOGY ORDERABLES Final Res ult INTERFACE SYSTEM Refer to clinic/hospital department * PHOSPHORUS (01/27/2006 4:15 AM WORD PROCESSOR) PHOSPHORUS 4.0 2.5 - 4.5 mg/dL INTERFACE SYSTEM 01/27/2006 4:15 AM WORD PROCESSOR Harshad Heller MD CHEMISTRY ORDERABLES Final Resu lt Performing Organization Address [facility] Phone Number INTERFACE SYSTEM Refer to clinic/hospital department * MAGNESIUM LEVEL (01/27/2006 4:15 AM WORD PROCESSOR) MAGNESIUM 2.1 1.5 - 2.5 mg/dL INTERFACE SYSTEM 01/27/2006 4:15 AM WORD PROCESSOR Harshad Heller MD CHEMISTRY ORDERABLES Final Resu lt Performing Organization Address [facility] Phone Number INTERFACE SYSTEM Refer to clinic/hospital department * CALCIUM IONIZED (01/27/2006 4:15 AM WORD PROCESSOR) CALCIUM IONIZED 4.88 4.76 - 5.16 mg/dL INTERFACE SYSTEM 01/27/2006 4:15 AM WORD PROCESSOR Harshad Heller MD CHEMISTRY ORDERABLES Final Resu Performing Organization Address [facility] Phone Number INTERFACE SYSTEM Refer to clinic/hospital department * (ABNORMAL) BASIC METABOLIC PANEL (01/27/2006 4:15 AM WORD PROCESSOR) GLUCOSE 164(H) 65 - 99 mg/dL INTERFACE [...] 30 mmol/L INTERFACE SYSTEM 01/27/2006 4:15 AM WORD PROCESSOR Harshad Heller MD CHEMISTRY ORDERABLES Final Resu lt Performing Organization Address [facility] de Phone Number INTERFACE SYSTEM Refer to clinic/hospital department * (ABNORMAL) POC GLUCOSE (01/27/2006 12:01 AM WORD PROCESSOR) COMMENT, GLU POC Notified RN INTERFACE SYSTEM GLUCOSE POC 132(H) 65 - 109 mg/dL INTERFACE SYSTEM 01/27/2006 12:0 1 AM WORD PROCESSOR us Wicho Gomez MD POINT OF CARE TESTING Final R esult Performing Organization Address [facility] Phone Number INTERFACE SYSTEM Refer to clinic/hospital department * (ABNORMAL) POC GLUCOSE (01/26/2006 6:01 PM WORD PROCESSOR) GLUCOSE POC 119(H) 65 - 109 mg/dL INTERFACE SYSTEM 01/26/2006 6:01 PM WORD PROCESSOR Result Roxie Gomez MD POINT OF CARE TESTING Final R esult Performing Organization Address [facility] Phone Number INTERFACE SYSTEM Refer to clinic/hospital department * POC GLUCOSE (01/26/2006 12:40 PM WORD PROCESSOR) GLUCOSE POC 108 65 - 109 mg/dL INTERFACE SYSTEM 01/26/2006 12:4 0 PM WORD PROCESSOR Result Roxie Gomez MD POINT OF CARE TESTING Final R esult Performing Organization Address [facility] Phone Number INTERFACE SYSTEM Refer to clinic/hospital department * POC GLUCOSE (01/26/2006 5:53 AM WORD PROCESSOR) GLUCOSE POC 97 65 - 109 mg/dL INTERFACE SYSTEM 01/26/2006 5:53 AM WORD PROCESSOR Result Roxie Gomez MD POINT OF CARE TESTING Final R esult Performing Organization Address [facility] de Phone Number INTERFACE SYSTEM Refer to clinic/hospital department * (ABNORMAL) CBC WITH DIFFERENTIAL (01/26/2006 3:15 AM WORD PROCESSOR) NEUTROPHILS 83(H) 45 - 70 % INTERFAC [...] 0.20 K/uL INTERFACE SYSTEM 01/26/2006 3:15 AM WORD PROCESSOR Wicho Gomez MD HEMATOLOGY ORDERABLES Final R esult INTERFACE SYSTEM Refer to clinic/hospital department * (ABNORMAL) CBC WITH DIFFERENTIAL (01/26/2006 3:15 AM WORD PROCESSOR) [facility] WBC 10.1(H) 4.0 - 9.8 K/uL INTERFACE [...] 12.4 fL INTERFACE SYSTEM 01/26/2006 3:15 AM WORD PROCESSOR Wicho Gomez MD HEMATOLOGY ORDERABLES Final R esult INTERFACE SYSTEM Refer to clinic/hospital department * PHOSPHORUS (01/26/2006 3:15 AM WORD PROCESSOR) PHOSPHORUS 3.1 2.5 - 4.5 mg/dL INTERFACE SYSTEM 01/26/2006 3:15 AM WORD PROCESSOR us Wicho Gomez MD CHEMISTRY ORDERABLES Final Re sult Performing Organization Address [facility] Phone Number INTERFACE SYSTEM Refer to clinic/hospital department * MAGNESIUM LEVEL (01/26/2006 3:15 AM WORD PROCESSOR) MAGNESIUM 1.9 1.5 - 2.5 mg/dL INTERFACE SYSTEM 01/26/2006 3:15 AM WORD PROCESSOR us Wicho Gomez MD CHEMISTRY ORDERABLES Final Re sult Performing Organization Address [facility] Phone Number INTERFACE SYSTEM Refer to clinic/hospital department * CALCIUM IONIZED (01/26/2006 3:15 AM WORD PROCESSOR) CALCIUM IONIZED 5.04 4.76 - 5.16 mg/dL INTERFACE SYSTEM 01/26/2006 3:15 AM WORD PROCESSOR us Wicho Gomez MD CHEMISTRY ORDERABLES Final Re sult Performing Organization Address [facility] INTERFACE SYSTEM Refer to clinic/hospital department * (ABNORMAL) BASIC METABOLIC PANEL (01/26/2006 3:15 AM WORD PROCESSOR) GLUCOSE 84 65 - 99 mg/dL INTERFACE [...] 30 mmol/L INTERFACE SYSTEM 01/26/2006 3:15 AM WORD PROCESSOR us Wicho Gomez MD CHEMISTRY ORDERABLES Final Re sult Performing Organization Address [facility] Phone Number INTERFACE SYSTEM Refer to clinic/hospital department * (ABNORMAL) POC GLUCOSE (01/25/2006 11:44 PM WORD PROCESSOR) GLUCOSE POC 152(H) 65 - 109 mg/dL INTERFACE SYSTEM 01/25/2006 11:4 4 PM WORD PROCESSOR us Wicho Gomez MD POINT OF CARE TESTING Final R esult Performing Organization Address [facility] Phone Number INTERFACE SYSTEM Refer to clinic/hospital department * (ABNORMAL) POC GLUCOSE (01/25/2006 5:42 PM WORD PROCESSOR) GLUCOSE POC 198(H) 65 - 109 mg/dL INTERFACE SYSTEM 01/25/2006 5:42 PM WORD PROCESSOR Result Roxie Gomez MD POINT OF CARE TESTING Final R krystalult Performing Organization Address [facility] Phone Number INTERFACE SYSTEM Refer to clinic/hospital department * (ABNORMAL) POC GLUCOSE (01/25/2006 12:30 PM WORD PROCESSOR) GLUCOSE POC 245(H) 65 - 109 mg/dL INTERFACE SYSTEM 01/25/2006 12:3 0 PM WORD PROCESSOR Result Roxie Gomez MD POINT OF CARE TESTING Final R krystalult Performing Organization Address [facility] Phone Number INTERFACE SYSTEM Refer to clinic/hospital department * (ABNORMAL) POC GLUCOSE (01/25/2006 5:25 AM WORD PROCESSOR) GLUCOSE POC 172(H) 65 - 109 mg/dL INTERFACE SYSTEM 01/25/2006 5:25 AM WORD PROCESSOR Result Roxie Gomez MD POINT OF CARE TESTING Final R esult Performing Organization Address [facility] Phone Number INTERFACE SYSTEM Refer to clinic/hospital department * (ABNORMAL) CBC WITH DIFFERENTIAL (01/25/2006 3:35 AM WORD PROCESSOR) NEUTROPHILS 83(H) 45 - 70 % INTERFAC [...] 0.20 K/uL INTERFACE SYSTEM 01/25/2006 3:35 AM WORD PROCESSOR Wicho Gomez MD HEMATOLOGY ORDERABLES Final R esult Performing Organization Address [facility] Co de Phone Number INTERFACE SYSTEM Refer to clinic/hospital department * (ABNORMAL) CBC WITH DIFFERENTIAL (01/25/2006 3:35 AM WORD PROCESSOR) [facility] WBC 8.9 4.0 - 9.8 K/uL INTERFACE [...] 12.4 fL INTERFACE SYSTEM 01/25/2006 3:35 AM WORD PROCESSOR Wicho Gomez MD HEMATOLOGY ORDERABLES Final R esult INTERFACE SYSTEM Refer to clinic/hospital department * PHOSPHORUS (01/25/2006 3:35 AM WORD PROCESSOR) PHOSPHORUS 3.6 2.5 - 4.5 mg/dL INTERFACE SYSTEM 01/25/2006 3:35 AM WORD PROCESSOR us Wicho Gomez MD CHEMISTRY ORDERABLES Final Re sult Performing Organization Address [facility] Number INTERFACE SYSTEM Refer to clinic/hospital department * MAGNESIUM LEVEL (01/25/2006 3:35 AM WORD PROCESSOR) MAGNESIUM 2.1 1.5 - 2.5 mg/dL INTERFACE SYSTEM 01/25/2006 3:35 AM WORD PROCESSOR us Wicho Gomez MD CHEMISTRY ORDERABLES Final Re sult Performing Organization Address [facility] INTERFACE SYSTEM Refer to clinic/hospital department * CALCIUM IONIZED (01/25/2006 3:35 AM WORD PROCESSOR) CALCIUM IONIZED 5.08 4.76 - 5.16 mg/dL INTERFACE SYSTEM 01/25/2006 3:35 AM WORD PROCESSOR us Wicho Gomez MD CHEMISTRY ORDERABLES Final Re sult Performing Organization Address [facility] INTERFACE SYSTEM Refer to clinic/hospital department * (ABNORMAL) BASIC METABOLIC PANEL (01/25/2006 3:35 AM WORD PROCESSOR) GLUCOSE 173(H) 65 - 99 mg/dL INTERFACE [...] 30 mmol/L INTERFACE SYSTEM 01/25/2006 3:35 AM WORD PROCESSOR us Wicho Gomez MD CHEMISTRY ORDERABLES Final Re sult Performing Organization Address [facility] Phone Number INTERFACE SYSTEM Refer to clinic/hospital department * (ABNORMAL) POC GLUCOSE (01/25/2006 12:05 AM WORD PROCESSOR) GLUCOSE POC 186(H) 65 - 109 mg/dL INTERFACE SYSTEM 01/25/2006 12:0 5 AM WORD PROCESSOR us Wicho Gomez MD POINT OF CARE TESTING Final R esult Performing Organization Address [facility] Phone Number INTERFACE SYSTEM Refer to clinic/hospital department * (ABNORMAL) POC GLUCOSE (01/24/2006 6:35 PM WORD PROCESSOR) GLUCOSE POC 202(H) 65 - 109 mg/dL INTERFACE SYSTEM 01/24/2006 6:35 PM WORD PROCESSOR us Wicho Gomez MD POINT OF CARE TESTING Final R krystalult Performing Organization Address [facility] Phone Number INTERFACE SYSTEM Refer to clinic/hospital department * (ABNORMAL) POC GLUCOSE (01/24/2006 12:18 PM WORD PROCESSOR) GLUCOSE POC 192(H) 65 - 109 mg/dL INTERFACE SYSTEM 01/24/2006 12:1 8 PM WORD PROCESSOR us Wicho Gomez MD POINT OF CARE TESTING Final R krystalult Performing Organization Address [facility] Phone Number INTERFACE SYSTEM Refer to clinic/hospital department * (ABNORMAL) POC GLUCOSE (01/24/2006 5:50 AM WORD PROCESSOR) GLUCOSE POC 248(H) 65 - 109 mg/dL INTERFACE SYSTEM 01/24/2006 5:50 AM WORD PROCESSOR us Wicho Gomez MD POINT OF CARE TESTING Final R esult Performing Organization Address [facility] de Phone Number INTERFACE SYSTEM Refer to clinic/hospital department * (ABNORMAL) CBC WITH DIFFERENTIAL (01/24/2006 3:40 AM WORD PROCESSOR) NEUTROPHILS 83(H) 45 - 70 % INTERFAC [...] 0.20 K/uL INTERFACE SYSTEM 01/24/2006 3:40 AM WORD PROCESSOR Harshad Heller MD HEMATOLOGY ORDERABLES Final Res ult Performing Organization Address [facility]/ZIP Co de Phone Number INTERFACE SYSTEM Refer to clinic/hospital department * (ABNORMAL) CBC WITH DIFFERENTIAL (01/24/2006 3:40 AM WORD PROCESSOR) [facility] WBC 10.3(H) 4.0 - 9.8 K/uL INTERFACE [...] 12.4 fL INTERFACE SYSTEM 01/24/2006 3:40 AM WORD PROCESSOR Harshad Heller MD HEMATOLOGY ORDERABLES Final Res ult Performing Organization Address City/[facility]/ZIP Co de Phone Number INTERFACE SYSTEM Refer to clinic/hospital department * CALCIUM IONIZED (01/24/2006 3:40 AM WORD PROCESSOR) CALCIUM IONIZED 5.04 4.76 - 5.16 mg/dL INTERFACE SYSTEM 01/24/2006 3:40 AM WORD PROCESSOR us Harshad Heller MD CHEMISTRY ORDERABLES Final Resu lt Performing Organization Address [facility] Phone Number INTERFACE SYSTEM Refer to clinic/hospital department * PHOSPHORUS (01/24/2006 3:40 AM WORD PROCESSOR) PHOSPHORUS 3.8 2.5 - 4.5 mg/dL INTERFACE SYSTEM 01/24/2006 3:40 AM WORD PROCESSOR Harshad Heller MD CHEMISTRY ORDERABLES Final Resu Performing Organization Address [facility] Phone Number INTERFACE SYSTEM Refer to clinic/hospital department * MAGNESIUM LEVEL (01/24/2006 3:40 AM WORD PROCESSOR) MAGNESIUM 2.1 1.5 - 2.5 mg/dL INTERFACE SYSTEM 01/24/2006 3:40 AM WORD PROCESSOR us Harshad Heller MD CHEMISTRY ORDERABLES Final Resu Performing Organization Address [facility] Phone Number INTERFACE SYSTEM Refer to clinic/hospital department * (ABNORMAL) BASIC METABOLIC PANEL (01/24/2006 3:40 AM WORD PROCESSOR) GLUCOSE 186(H) 65 - 99 mg/dL INTERFACE [...] 30 mmol/L INTERFACE SYSTEM 01/24/2006 3:40 AM WORD PROCESSOR us Harshad Heller MD CHEMISTRY ORDERABLES Final Resu lt Performing Organization Address City/[facility] Co de Phone Number INTERFACE SYSTEM Refer to clinic/hospital department * (ABNORMAL) POC GLUCOSE (01/23/2006 11:29 PM WORD PROCESSOR) COMMENT, GLU POC Notified RN INTERFACE SYSTEM GLUCOSE POC 150(H) 65 - 109 mg/dL INTERFACE SYSTEM 01/23/2006 11:2 9 PM WORD PROCESSOR us Wicho Gomez MD POINT OF CARE TESTING Final R esult Performing Organization Address [facility] de Phone Number INTERFACE SYSTEM Refer to clinic/hospital department * (ABNORMAL) POC GLUCOSE (01/23/2006 5:20 PM WORD PROCESSOR) GLUCOSE POC 185(H) 65 - 109 mg/dL INTERFACE SYSTEM 01/23/2006 5:20 PM WORD PROCESSOR Wicho Gomez MD POINT OF CARE TESTING Final R esult Performing Organization Address [facility] de Phone Number INTERFACE SYSTEM Refer to clinic/hospital department * (ABNORMAL) POC GLUCOSE (01/23/2006 4:35 PM WORD PROCESSOR) GLUCOSE POC 169(H) 65 - 109 mg/dL INTERFACE SYSTEM 01/23/2006 4:35 PM WORD PROCESSOR us Wicho Gomez MD POINT OF CARE TESTING Final R esult Performing Organization Address [facility] de Phone Number INTERFACE SYSTEM Refer to clinic/hospital department * POC GLUCOSE (01/23/2006 1:02 PM WORD PROCESSOR) GLUCOSE POC 96 65 - 109 mg/dL INTERFACE SYSTEM 01/23/2006 1:02 PM WORD PROCESSOR us Wicho Goemz MD POINT OF CARE TESTING Final R esult Performing Organization Address City/[facility] de Phone Number INTERFACE SYSTEM Refer to clinic/hospital department * (ABNORMAL) CBC WITH DIFFERENTIAL (01/23/2006 3:38 AM WORD PROCESSOR) NEUTROPHILS 83(H) 45 - 70 % INTERFAC [...] 0.20 K/uL INTERFACE SYSTEM 01/23/2006 3:38 AM WORD PROCESSOR Harshad Heller MD HEMATOLOGY ORDERABLES Final Res ult Performing Organization Address [facility] de Phone Number INTERFACE SYSTEM Refer to clinic/hospital department * (ABNORMAL) CBC WITH DIFFERENTIAL (01/23/2006 3:38 AM WORD PROCESSOR) WBC 10.8(H) 4.0 - 9.8 K/uL INTERFACE [...] 12.4 fL INTERFACE SYSTEM 01/23/2006 3:38 AM WORD PROCESSOR Harshad Heller MD HEMATOLOGY ORDERABLES Final Res ult Performing Organization Address [facility] Phone Number INTERFACE SYSTEM Refer to clinic/hospital department * CALCIUM IONIZED (01/23/2006 3:38 AM WORD PROCESSOR) CALCIUM IONIZED 4.76 4.76 - 5.16 mg/dL INTERFACE SYSTEM 01/23/2006 3:38 AM WORD PROCESSOR us Harshad Heller MD CHEMISTRY ORDERABLES Final Resu lt Performing Organization Address [facility] Phone Number INTERFACE SYSTEM Refer to clinic/hospital department * PHOSPHORUS (01/23/2006 3:38 AM WORD PROCESSOR) PHOSPHORUS 2.8 2.5 - 4.5 mg/dL INTERFACE SYSTEM 01/23/2006 3:38 AM WORD PROCESSOR us Harshad Heller MD CHEMISTRY ORDERABLES Final Resu lt Performing Organization Address [facility] Phone Number INTERFACE SYSTEM Refer to clinic/hospital department * MAGNESIUM LEVEL (01/23/2006 3:38 AM WORD PROCESSOR) MAGNESIUM 1.9 1.5 - 2.5 mg/dL INTERFACE SYSTEM 01/23/2006 3:38 AM WORD PROCESSOR us Harshad Heller MD CHEMISTRY ORDERABLES Final Resu lt Performing Organization Address [facility] Phone Number INTERFACE SYSTEM Refer to clinic/hospital department * (ABNORMAL) BASIC METABOLIC PANEL (01/23/2006 3:38 AM WORD PROCESSOR) GLUCOSE 90 65 - 99 mg/dL INTERFACE [...] 30 mmol/L INTERFACE SYSTEM 01/23/2006 3:38 AM WORD PROCESSOR Harshad Heller MD CHEMISTRY ORDERABLES Final Resu lt Performing Organization Address [facility] Phone Number INTERFACE SYSTEM Refer to clinic/hospital department * (ABNORMAL) POC GLUCOSE (01/22/2006 11:34 PM CDT) GLUCOSE POC 172(H) 65 - 109 mg/dL INTERFACE SYSTEM 01/22/2006 11:3 4 PM CDT Wicho Gomez MD POINT OF CARE TESTING Final R esult Performing Organization Address [facility] Phone Number INTERFACE SYSTEM Refer to clinic/hospital department * (ABNORMAL) POC GLUCOSE (01/22/2006 5:53 PM CDT) GLUCOSE POC 205(H) 65 - 109 mg/dL INTERFACE SYSTEM 01/22/2006 5:53 PM CDT Wicho Gomez MD POINT OF CARE TESTING Final R esult Performing Organization Address [facility] Phone Number INTERFACE SYSTEM Refer to clinic/hospital department * (ABNORMAL) POC GLUCOSE (01/22/2006 4:02 PM CDT) GLUCOSE POC 185(H) 65 - 109 mg/dL INTERFACE SYSTEM 01/22/2006 4:02 PM CDT Wicho Gomez MD POINT OF CARE TESTING Final R esult Performing Organization Address [facility] de Phone Number INTERFACE SYSTEM Refer to clinic/hospital department * (ABNORMAL) POC GLUCOSE (01/22/2006 11:24 AM CDT) GLUCOSE POC 168(H) 65 - 109 mg/dL INTERFACE SYSTEM 01/22/2006 11:2 4 AM CDT Wicho Gomez MD POINT OF CARE TESTING Final R esult Performing Organization Address City/[facility]/ZIP Co de Phone Number INTERFACE SYSTEM Refer to clinic/hospital department * (ABNORMAL) POC GLUCOSE (01/22/2006 6:16 AM CDT) GLUCOSE POC 222(H) 65 - 109 mg/dL INTERFACE SYSTEM 01/22/2006 6:16 AM CDT us Wicho Gomez MD POINT OF CARE TESTING Final R esult Performing Organization Address [place]/[facility] Co de Phone Number [...] K/uL INTERFACE SYSTEM 01/22/2006 3:00 AM CDT us Harshad Heller MD HEMATOLOGY ORDERABLES Final Res ult Performing Organization Address [facility] de Phone Number INTERFACE SYSTEM Refer to [...] fL INTERFACE SYSTEM 01/22/2006 3:00 AM CDT us Harshad Heller MD HEMATOLOGY ORDERABLES Final Res ult Performing Organization Address City/State/[facility] Co de Phone Number INTERFACE [...] ABG ORDERABLES Final Result Performing Organization Address City/[facility] Phone Number INTERFACE SYSTEM Refer to clinic/hospital department * PHOSPHORUS (01/22/2006 3:00 AM CDT) PHOSPHORUS 2.6 2.5 - 4.5 mg/dL INTERFACE SYSTEM 01/22/2006 3:00 AM CDT us Harshad Heller MD CHEMISTRY ORDERABLES Final Resu lt Performing Organization Address City/[facility] Co de Phone Number INTERFACE SYSTEM Refer to clinic/hospital department * MAGNESIUM LEVEL (01/22/2006 3:00 AM CDT) MAGNESIUM 2.4 1.5 - 2.5 mg/dL INTERFACE SYSTEM 01/22/2006 3:00 AM CDT Harshad Heller MD CHEMISTRY ORDERABLES Final Resu lt Performing Organization Address [facility] Phone Number INTERFACE SYSTEM Refer to clinic/hospital department * CALCIUM IONIZED (01/22/2006 3:00 AM CDT) CALCIUM IONIZED 4.88 4.76 - 5.16 mg/dL INTERFACE SYSTEM 01/22/2006 3:00 AM CDT Harshad Heller MD CHEMISTRY ORDERABLES Final Resu lt Performing Organization Address [facility] Phone Number INTERFACE SYSTEM Refer to [...] Resu lt Performing Organization Address [facility] Phone Number INTERFACE SYSTEM Refer to clinic/hospital department * (ABNORMAL) POC GLUCOSE (01/22/2006 12:31 AM CDT) GLUCOSE POC 165(H) 65 - 109 mg/dL INTERFACE SYSTEM 01/22/2006 12:3 1 AM CDT us Wicho Gomez MD POINT OF CARE TESTING Final R esult Performing Organization Address [facility] Phone Number INTERFACE SYSTEM Refer to clinic/hospital department * (ABNORMAL) OCCULT BLOOD, STOOL (01/21/2006 9:25 PM CDT) OCCULT BLOOD, STOOL Positive(A ) Negative INTERFACE SYSTEM 01/21/2006 9:25 PM CDT Harshad Heller MD BODY FLUIDS AND STOOLS Final Re sult Performing Organization Address [facility] Phone Number INTERFACE SYSTEM Refer [...] *corresponds to therapeutic range for unfractionated heparin 01/21/2006 9:25 PM CDT Harshad Heller MD HEMATOLOGY ORDERABLES Final Res ult Performing Organization Address [facility] Phone Number INTERFACE SYSTEM Refer to clinic/hospital department * (ABNORMAL) POC GLUCOSE (01/21/2006 5:01 PM CDT) GLUCOSE POC 221(H) 65 - 109 mg/dL INTERFACE SYSTEM 01/21/2006 5:01 PM CDT Wicho Gomez MD POINT OF CARE TESTING Final R esult Performing Organization Address [facility] Phone Number INTERFACE SYSTEM Refer [...] *corresponds to therapeutic range for unfractionated heparin 01/21/2006 2:40 PM CDT Wicho Gomez MD HEMATOLOGY ORDERABLES Final R esult Performing Organization Address [facility] Phone Number INTERFACE SYSTEM Refer [...] patients with mechanical heart valves or post [place]. Pediatric (12 years and under): 1.5 - [...] Wicho Gomez MD HEMATOLOGY ORDERABLES Final R chantelle Performing Organization Address [facility] Phone Number INTERFACE SYSTEM Refer to clinic/hospital department * (ABNORMAL) POC GLUCOSE (01/21/2006 11:03 AM CDT) GLUCOSE POC 180(H) 65 - 109 mg/dL INTERFACE SYSTEM 01/21/2006 11:0 3 AM CDT Wicho Gomez MD POINT OF CARE TESTING Final R eschantelle Performing Organization Address [facility] Phone Number INTERFACE SYSTEM Refer [...] *corresponds to therapeutic range for unfractionated heparin 01/21/2006 7:55 AM CDT Wicho Gomez MD HEMATOLOGY ORDERABLES Final R esult Performing Organization Address [facility] Phone Number INTERFACE SYSTEM Refer [...] patients with mechanical heart valves or post [place]. Pediatric (12 years and under): 1.5 - [...] Wicho Gomez MD HEMATOLOGY ORDERABLES Final R NextGxDXult Performing Organization Address [facility] Co de Phone Number INTERFACE SYSTEM Refer to clinic/hospital department * (ABNORMAL) POC GLUCOSE (01/21/2006 6:27 AM CDT) GLUCOSE POC 225(H) 65 - 109 mg/dL INTERFACE SYSTEM 01/21/2006 6:27 AM CDT Wicho Gomez MD POINT OF CARE TESTING Final R esult Performing Organization Address [facility] Phone Number INTERFACE SYSTEM Refer [...] ABG ORDERABLES Final Result Performing Organization Address [facility] Phone Number INTERFACE SYSTEM Refer [...] HEMATOLOGY ORDERABLES Final Result Performing Organization Address [facility] Phone Number INTERFACE SYSTEM Refer [...] HEMATOLOGY ORDERABLES Final Result Performing Organization Address City/[facility] Phone Number INTERFACE SYSTEM Refer to clinic/hospital department * PHOSPHORUS (01/21/2006 4:00 AM CDT) PHOSPHORUS 2.9 2.5 - 4.5 mg/dL INTERFACE SYSTEM 01/21/2006 4:00 AM CDT Romie Laughlin MD CHEMISTRY ORDERABLES Final R esult Performing Organization Address City/[facility] Phone Number INTERFACE SYSTEM Refer to clinic/hospital department * MAGNESIUM LEVEL (01/21/2006 4:00 AM CDT) MAGNESIUM 2.4 1.5 - 2.5 mg/dL INTERFACE SYSTEM 01/21/2006 4:00 AM CDT Romie Laughlin MD CHEMISTRY ORDERABLES Final R esult Performing Organization Address City/[facility] de Phone Number INTERFACE SYSTEM Refer to clinic/hospital department * CALCIUM IONIZED (01/21/2006 4:00 AM CDT) CALCIUM IONIZED 4.80 4.76 - 5.16 mg/dL INTERFACE SYSTEM 01/21/2006 4:00 AM CDT Romie Laughlin MD CHEMISTRY ORDERABLES Final R esult Performing Organization Address [facility] Phone Number INTERFACE SYSTEM Refer [...] R esult Performing Organization Address [facility] de Phone Number INTERFACE SYSTEM Refer to [...] patients with mechanical heart valves or post [place]. Pediatric (12 years and under): 1.5 - 3.0 Although the target range in children is not well established , INR values of 1.5 - 3.0 are recommended for most patients. Higher values have been used in children with prosthetic cardiac valves and hereditary clotting disorders. (<3 days) therapeutic ranges have not been established. 01/21/2006 1:00 AM CDT us Wicho Gomez MD HEMATOLOGY ORDERABLES Final R [facility] Performing Organization Address [facility] Phone Number INTERFACE SYSTEM Refer [...] *corresponds to therapeutic range for unfractionated heparin 01/21/2006 1:00 AM CDT Wicho Gomez MD HEMATOLOGY ORDERABLES Final RUST Performing Organization Address [facility] Phone Number INTERFACE SYSTEM Refer to clinic/hospital department * (ABNORMAL) POC GLUCOSE (01/21/2006 12:09 AM CDT) GLUCOSE POC 179(H) 65 - 109 mg/dL INTERFACE SYSTEM 01/21/2006 12:0 9 AM CDT Wicho Gomez MD POINT OF CARE TESTING Final R [facility] Performing Organization Address [facility] Phone Number INTERFACE SYSTEM Refer [...] ABG ORDERABLES Final Result Performing Organization Address City/[facility] Phone Number INTERFACE SYSTEM Refer to clinic/hospital department * (ABNORMAL) POC GLUCOSE (01/20/2006 6:29 PM CDT) GLUCOSE POC 172(H) 65 - 109 mg/dL INTERFACE SYSTEM 01/20/2006 6:29 PM CDT Wicho Gomez MD POINT OF CARE TESTING Final R esult Performing Organization Address [facility] Phone Number INTERFACE SYSTEM Refer to clinic/hospital department * POC GLUCOSE (01/20/2006 6:18 PM CDT) GLUCOSE POC 75 65 - 109 mg/dL INTERFACE SYSTEM 01/20/2006 6:18 PM CDT Wicho Gomez MD POINT OF CARE TESTING Final R esult Performing Organization Address [facility] Phone Number INTERFACE SYSTEM Refer [...] patients with mechanical heart valves or post [place]. Pediatric (12 years and under): 1.5 - 3.0 Although the target range in children is not well established , INR values of 1.5 - 3.0 are recommended for most patients. Higher values have been used in children with prosthetic cardiac valves and hereditary clotting disorders. (<3 days) therapeutic ranges have not been established. 01/20/2006 6:15 PM CDT Wicho Gomez MD HEMATOLOGY ORDERABLES Final RUST Performing Organization Address [facility] Phone Number INTERFACE SYSTEM Refer [...] *corresponds to therapeutic range for unfractionated heparin 01/20/2006 6:15 PM CDT Wicho Gomez MD HEMATOLOGY ORDERABLES [facility] Performing Organization Address [facility] Phone Number INTERFACE SYSTEM Refer [...] patients with mechanical heart valves or post [place]. Pediatric (12 years and under): 1.5 - 3.0 Although the target range in children is not well established , INR values of 1.5 - 3.0 are recommended for most patients. Higher values have been used in children with prosthetic cardiac valves and hereditary clotting disorders. (<3 days) therapeutic ranges have not been established. 01/20/2006 12:3 0 PM CDT us Wicho Gomez MD HEMATOLOGY ORDERABLES Final R [facility] Performing Organization Address [facility] Phone Number INTERFACE SYSTEM Refer [...] *corresponds to therapeutic range for unfractionated heparin 01/20/2006 12:3 0 PM CDT Wicho Gomez MD HEMATOLOGY ORDERABLES Final RUST Performing Organization Address [facility] Phone Number INTERFACE SYSTEM Refer to clinic/hospital department * (ABNORMAL) POC GLUCOSE (01/20/2006 12:15 PM CDT) GLUCOSE POC 172(H) 65 - 109 mg/dL INTERFACE SYSTEM 01/20/2006 12:1 5 PM CDT Wicho Gomez MD POINT OF CARE TESTING Final [place] Performing Organization Address [facility] Phone Number INTERFACE SYSTEM Refer to clinic/hospital department * (ABNORMAL) PROTIME-INR (01/20/2006 6:50 AM CDT) PROTIME 17.1(H) 12.7 - 15.1 Seconds INTERFACE SYSTEM INR 1.3(H) 0.9 - 1.1 INTERFACE SYSTEM Comment: INR Therapeutic Range: Adult: 2.0 - 3.0 for pulmonary embolism or prophylaxis against venous thrombosis or systemic embolization. 2.0 - 3.0 for patients with tissue heart valves. 2.5 - 3.5 for patients with mechanical heart valves or post [place]. Pediatric (12 years and under): 1.5 - 3.0 Although the target range in children is not well established , INR values of 1.5 - 3.0 are recommended for most patients. Higher values have been used in children with prosthetic cardiac valves and hereditary clotting disorders. (<3 days) therapeutic ranges have not been established. 01/20/2006 6:50 AM CDT us Wicho Gomez MD HEMATOLOGY ORDERABLES Final R [facility] Performing Organization Address [facility] Phone Number INTERFACE SYSTEM Refer [...] *corresponds to therapeutic range for unfractionated heparin Verified by repeat analysis. Results called to katie at 01/20/2006 7:55 AM and read back verified. 01/20/2006 6:50 AM CDT us Wicho Gomez MD HEMATOLOGY ORDERABLES Final RUST Performing Organization Address [facility] Phone Number INTERFACE SYSTEM Refer to clinic/hospital department * (ABNORMAL) POC GLUCOSE (01/20/2006 5:09 AM CDT) GLUCOSE POC 110(H) 65 - 109 mg/dL INTERFACE SYSTEM 01/20/2006 5:09 AM CDT Result [facility] us Wicho Gomez MD POINT OF CARE TESTING Final RUST Performing Organization Address [facility] Phone Number INTERFACE SYSTEM Refer [...] HEMATOLOGY ORDERABLES Final Result Performing Organization Address City/[facility] de Phone Number INTERFACE SYSTEM Refer to [...] fL INTERFACE SYSTEM 01/20/2006 4:15 AM CDT Rmoie Laughlin MD HEMATOLOGY ORDERABLES Final Result Performing Organization Address City/[facility]/ZIP Co de Phone Number INTERFACE SYSTEM Refer to clinic/hospital department * (ABNORMAL) PHOSPHORUS (01/20/2006 4:15 AM CDT) PHOSPHORUS 1.5(L) 2.5 - 4.5 mg/dL INTERFACE SYSTEM 01/20/2006 4:15 AM CDT Romie Laughlin MD CHEMISTRY ORDERABLES Final R esult Performing Organization Address [facility] Phone Number INTERFACE SYSTEM Refer to clinic/hospital department * MAGNESIUM LEVEL (01/20/2006 4:15 AM CDT) MAGNESIUM 1.5 1.5 - 2.5 mg/dL INTERFACE SYSTEM 01/20/2006 4:15 AM CDT Romie Laughlin MD CHEMISTRY ORDERABLES Final R esult Performing Organization Address [facility] Phone Number INTERFACE SYSTEM Refer to clinic/hospital department * CALCIUM IONIZED (01/20/2006 4:15 AM CDT) CALCIUM IONIZED 4.80 4.76 - 5.16 mg/dL INTERFACE SYSTEM 01/20/2006 4:15 AM CDT us Romie Laughlin MD CHEMISTRY ORDERABLES [facility] Per[facility] Organization Address [facility] Phone Number INTERFACE SYSTEM Refer [...] mmol/L INTERFACE SYSTEM 01/20/2006 4:15 AM CDT us Romie Laughlin MD CHEMISTRY ORDERABLES Final R esult Performing Organization Address City/[facility] Phone Number INTERFACE SYSTEM Refer [...] *corresponds to therapeutic range for unfractionated heparin 01/20/2006 1:45 AM CDT Wicho Gomez MD HEMATOLOGY ORDERABLES Final R NextGxDXult Performing Organization Address [facility] Phone Number INTERFACE SYSTEM Refer [...] patients with mechanical heart valves or post [place]. Pediatric (12 years and under): 1.5 - 3.0 Although the target range in children is not well established , INR values of 1.5 - 3.0 are recommended for most patients. Higher values have been used in children with prosthetic cardiac valves and hereditary clotting disorders. (<3 days) therapeutic ranges have not been established. 01/20/2006 1:45 AM CDT Wicho Gomez MD HEMATOLOGY ORDERABLES Final R esult Performing Organization Address [facility] [facility] Phone Number INTERFACE SYSTEM Refer to clinic/hospital department * (ABNORMAL) POC GLUCOSE (01/19/2006 11:55 PM CDT) GLUCOSE POC 185(H) 65 - 109 mg/dL INTERFACE SYSTEM 01/19/2006 11:5 5 PM CDT us Wicho Gomez MD POINT OF CARE TESTING Final R [facility] Performing Organization Address [facility] Phone Number INTERFACE SYSTEM Refer [...] *corresponds to therapeutic range for unfractionated heparin 01/19/2006 7:00 PM CDT Wicho Gomez MD HEMATOLOGY ORDERABLES Final R [facility] Performing Organization Address [facility] Phone Number INTERFACE SYSTEM Refer to clinic/hospital department * (ABNORMAL) POC GLUCOSE (01/19/2006 5:28 PM CDT) Pathologist [facility] GLUCOSE POC 145(H) 65 - 109 mg/dL INTERFACE SYSTEM 01/19/2006 5:28 PM CDT us Wicho Gomez MD POINT OF CARE TESTING Final R [facility] Performing Organization Address [facility] Phone Number INTERFACE SYSTEM Refer to clinic/hospital department * PTT (01/19/2006 2:12 PM CDT) PTT 29.7 24.4 - 36.4 Seconds INTERFACE SYSTEM Comment: PTT Therapeutic Range: Heparin Level PTT (seconds) <0.10 units/mL <53 0.10 - 0.30 units/mL 53 - 67 0.30 - 0.70 units/mL* 67 - 95* 0.70 - 1.00 units/mL 95 - 116 *corresponds to therapeutic range for unfractionated heparin 01/19/2006 2:12 PM CDT Wicho Gomez MD HEMATOLOGY ORDERABLES Final R esult Performing Organization Address [facility] Phone Number INTERFACE SYSTEM Refer to clinic/hospital department * (ABNORMAL) POC GLUCOSE (01/19/2006 12:42 PM CDT) GLUCOSE POC 174(H) 65 - 109 mg/dL INTERFACE SYSTEM 01/19/2006 12:4 2 PM CDT Wicho Gomez MD POINT OF CARE TESTING Final R esult Performing Organization Address [facility] Number INTERFACE SYSTEM Refer to clinic/hospital department * (ABNORMAL) PTT (01/19/2006 7:22 AM CDT) PTT 56.9(H) 24.4 - 36.4 Seconds INTERFACE SYSTEM Comment: PTT Therapeutic Range: Heparin Level PTT (seconds) <0.10 units/mL <53 0.10 - 0.30 units/mL 53 - 67 0.30 - 0.70 units/mL* 67 - 95* 0.70 - 1.00 units/mL 95 - 116 *corresponds to therapeutic range for unfractionated heparin 01/19/2006 7:22 AM CDT Harshad Heller MD HEMATOLOGY ORDERABLES Final Res ult Performing Organization Address [facility] Phone Number INTERFACE SYSTEM Refer to clinic/hospital department * CBC WITH DIFFERENTIAL (01/19/2006 4:10 AM CDT) ANISOCYTOSIS Slight INTERFA CE SYSTEM POIKILOCYTES Slight INTERFA CE SYSTEM OVALOCYTES Slight INTERFACE SYSTEM 01/19/2006 4:10 AM CDT Harshad Heller MD HEMATOLOGY ORDERABLES Final Res ult Performing Organization Address [facility] Phone Number INTERFACE SYSTEM Refer [...] ORDERABLES Final Res ult Performing Organization Address [facility] Phone Number INTERFACE SYSTEM Refer to clinic/hospital department * (ABNORMAL) C-REACTIVE PROTEIN (01/19/2006 4:10 AM CDT) CRP 4.4(H) 0.0 - 0.8 mg/dL INTERFACE SYSTEM 01/19/2006 4:10 AM CDT Harshad Heller MD CHEMISTRY ORDERABLES Final Resu lt Performing Organization Address [facility] Phone Number INTERFACE SYSTEM Refer to clinic/hospital department * (ABNORMAL) PHOSPHORUS (01/19/2006 4:10 AM CDT) PHOSPHORUS 1.7(L) 2.5 - 4.5 mg/dL INTERFACE SYSTEM 01/19/2006 4:10 AM CDT Harshad Heller MD CHEMISTRY ORDERABLES Final Resu lt Performing Organization Address [facility] Phone Number INTERFACE SYSTEM Refer to clinic/hospital department * MAGNESIUM LEVEL (01/19/2006 4:10 AM CDT) MAGNESIUM 1.6 1.5 - 2.5 mg/dL INTERFACE SYSTEM 01/19/2006 4:10 AM CDT Harshad Heller MD CHEMISTRY ORDERABLES Final Resu lt Performing Organization Address [facility] Phone Number INTERFACE SYSTEM Refer to clinic/hospital department * CALCIUM IONIZED (01/19/2006 4:10 AM CDT) CALCIUM IONIZED 4.92 4.76 - 5.16 mg/dL INTERFACE SYSTEM 01/19/2006 4:10 AM CDT Harshad Heller MD CHEMISTRY ORDERABLES Final Resu lt Performing Organization Address [facility] Phone Number INTERFACE SYSTEM Refer [...] Resu lt Performing Organization Address [facility] Phone Number INTERFACE SYSTEM Refer [...] *corresponds to therapeutic range for unfractionated heparin 01/18/2006 11:5 9 PM CDT Wicho Gomez MD HEMATOLOGY ORDERABLES Final R esult Performing Organization Address [facility] de Phone Number INTERFACE SYSTEM Refer to clinic/hospital department * (ABNORMAL) POC GLUCOSE (01/18/2006 11:48 PM CDT) GLUCOSE POC 164(H) 65 - 109 mg/dL INTERFACE SYSTEM 01/18/2006 11:4 8 PM CDT Wicho Gomez MD POINT OF CARE TESTING Final R esult Performing Organization Address [place]/[facility] de Phone Number INTERFACE SYSTEM Refer to clinic/hospital department * (ABNORMAL) PTT (01/18/2006 6:35 PM CDT) PTT 54.4(H) 24.4 - 36.4 Seconds INTERFACE SYSTEM Comment: PTT Therapeutic Range: Heparin Level PTT (seconds) <0.10 units/mL <53 0.10 - 0.30 units/mL 53 - 67 0.30 - 0.70 units/mL* 67 - 95* 0.70 - 1.00 units/mL 95 - 116 *corresponds to therapeutic range for unfractionated heparin 01/18/2006 6:35 PM CDT us Wicho Gomez MD HEMATOLOGY ORDERABLES [facility] Performing Organization Address [facility] Phone Number INTERFACE SYSTEM Refer to clinic/hospital department * (ABNORMAL) POC GLUCOSE (01/18/2006 5:33 PM CDT) GLUCOSE POC 183(H) 65 - 109 mg/dL INTERFACE SYSTEM 01/18/2006 5:33 PM CDT us Wicho Gomez MD POINT OF CARE TESTING Final R [facility] Performing Organization Address [facility] Phone Number INTERFACE SYSTEM Refer to clinic/hospital department * (ABNORMAL) POC GLUCOSE (01/18/2006 11:12 AM CDT) GLUCOSE POC 164(H) 65 - 109 mg/dL INTERFACE SYSTEM 01/18/2006 11:1 2 AM CDT us Wicho Gomez MD POINT OF CARE TESTING Final [facility] Performing Organization Address [facility] de Phone Number INTERFACE SYSTEM Refer to clinic/hospital department * (ABNORMAL) PTT (01/18/2006 11:00 AM CDT) PTT 74.7(H) 24.4 - 36.4 Seconds INTERFACE SYSTEM Comment: PTT Therapeutic Range: Heparin Level PTT (seconds) <0.10 units/mL <53 0.10 - 0.30 units/mL 53 - 67 0.30 - 0.70 units/mL* 67 - 95* 0.70 - 1.00 units/mL 95 - 116 *corresponds to therapeutic range for unfractionated heparin 01/18/2006 11:0 0 AM CDT us Wicho Gomez MD HEMATOLOGY ORDERABLES Final R esult Performing Organization Address [facility] de Phone Number INTERFACE SYSTEM Refer to clinic/hospital department * (ABNORMAL) ALBUMIN LEVEL (01/18/2006 3:15 AM CDT) ALBUMIN 1.8(L) 3.4 - 4.8 g/dL INTERFACE SYSTEM 01/18/2006 3:15 AM CDT us Abhinav Barton MD CHEMISTRY ORDERABLES Final Result Performing Organization Address [facility] Phone Number INTERFACE SYSTEM Refer [...] *corresponds to therapeutic range for unfractionated heparin 01/18/2006 3:15 AM CDT us Harshad Heller MD HEMATOLOGY ORDERABLES Final Res ult Performing Organization Address [facility] de Phone Number INTERFACE SYSTEM Refer to [...] 40% INTERFACE SYSTEM 01/18/2006 3:15 AM CDT Wicho Gomez MD ABG ORDERABLES Final Result Performing Organization Address [facility] Phone Number INTERFACE SYSTEM Refer to clinic/hospital department * CBC WITH DIFFERENTIAL (01/18/2006 3:15 AM CDT) ANISOCYTOSIS Slight INTERFA CE SYSTEM POIKILOCYTES Slight INTERFA CE SYSTEM POLYCHROMASIA Slight INTERF CINDY SYSTEM BASOPHILIC STIPPLING Slight INTERFACE SYSTEM OVALOCYTES Slight INTERFACE SYSTEM 01/18/2006 3:15 AM CDT Harshad Heller MD HEMATOLOGY ORDERABLES Final Res ult Performing Organization Address [facility] Phone Number INTERFACE SYSTEM Refer [...] Res ult Performing Organization Address [facility] Phone Number INTERFACE SYSTEM Refer [...] Res ult Performing Organization Address [facility] Phone Number INTERFACE SYSTEM Refer to clinic/hospital department * (ABNORMAL) CALCIUM IONIZED (01/18/2006 3:15 AM CDT) CALCIUM IONIZED 4.64(L) 4.76 - 5.16 mg/dL INTERFACE SYSTEM 01/18/2006 3:15 AM CDT Harshad Heller MD CHEMISTRY ORDERABLES Final Resu lt Performing Organization Address [facility] Phone Number INTERFACE SYSTEM Refer to clinic/hospital department * PHOSPHORUS (01/18/2006 3:15 AM CDT) PHOSPHORUS 2.5 2.5 - 4.5 mg/dL INTERFACE SYSTEM 01/18/2006 3:15 AM CDT Harshad Heller MD CHEMISTRY ORDERABLES Final Resu lt Performing Organization Address [facility] de Phone Number INTERFACE SYSTEM Refer to clinic/hospital department * MAGNESIUM LEVEL (01/18/2006 3:15 AM CDT) MAGNESIUM 1.9 1.5 - 2.5 mg/dL INTERFACE SYSTEM 01/18/2006 3:15 AM CDT Harshad Hellre MD CHEMISTRY ORDERABLES Final Resu lt Performing Organization Address [facility] Phone Number INTERFACE SYSTEM Refer [...] CHEMISTRY ORDERABLES Final Resu Performing Organization Address [facility] Phone Number INTERFACE SYSTEM Refer to clinic/hospital department * (ABNORMAL) POC GLUCOSE (01/17/2006 11:55 PM CDT) GLUCOSE POC 187(H) 65 - 109 mg/dL INTERFACE SYSTEM 01/17/2006 11:5 5 PM CDT Wicho Gomez MD POINT OF CARE TESTING Final R esult Performing Organization Address [facility] Phone Number INTERFACE SYSTEM Refer [...] range for unfractionated heparin Results called to katie at 01/17/2006 9:11 PM and read back verified. Verified by repeat analysis. 01/17/2006 8:30 PM CDT Harshad Heller MD HEMATOLOGY ORDERABLES Final Res ult Performing Organization Address [facility] Phone Number INTERFACE SYSTEM Refer to clinic/hospital department * (ABNORMAL) POC GLUCOSE (01/17/2006 6:27 PM CDT) GLUCOSE POC 161(H) 65 - 109 mg/dL INTERFACE SYSTEM 01/17/2006 6:27 PM CDT us Wicho Gomez MD POINT OF CARE TESTING Final R [place] Performing Organization Address [facility] Phone Number INTERFACE SYSTEM Refer to clinic/hospital department * (ABNORMAL) POC GLUCOSE (01/17/2006 12:51 PM CDT) GLUCOSE POC 114(H) 65 - 109 mg/dL INTERFACE SYSTEM 01/17/2006 12:5 1 PM CDT Wicho Gomez MD POINT OF CARE TESTING Final Smitha haynes Performing Organization Address [facility] Phone Number INTERFACE SYSTEM Refer [...] *corresponds to therapeutic range for unfractionated heparin 01/17/2006 5:35 AM CDT Wicho Gomez MD HEMATOLOGY ORDERABLES Final R esult Performing Organization Address [facility] Phone Number INTERFACE SYSTEM Refer to clinic/hospital department * CBC WITH DIFFERENTIAL (01/17/2006 3:30 AM CDT) ANISOCYTOSIS Slight INTERFA CE SYSTEM POIKILOCYTES Slight INTERFA CE SYSTEM MACROCYTES Slight INTERFACE SYSTEM HYPOCHROMIA Slight INTERFAC E SYSTEM OVALOCYTES Slight INTERFACE SYSTEM 01/17/2006 3:30 AM CDT Wicho Gomez MD HEMATOLOGY ORDERABLES Final R [facility] Performing Organization Address [facility] Phone Number INTERFACE SYSTEM Refer [...] R esult Performing Organization Address [facility] de Phone Number INTERFACE SYSTEM Refer to [...] R esult Performing Organization Address [facility] Phone Number INTERFACE SYSTEM Refer to clinic/hospital department * PHOSPHORUS (01/17/2006 3:30 AM CDT) PHOSPHORUS 3.8 2.5 - 4.5 mg/dL INTERFACE SYSTEM 01/17/2006 3:30 AM CDT Wicho Gomez MD CHEMISTRY ORDERABLES Final Re sult Performing Organization Address [facility] Phone Number INTERFACE SYSTEM Refer to clinic/hospital department * MAGNESIUM LEVEL (01/17/2006 3:30 AM CDT) MAGNESIUM 2.0 1.5 - 2.5 mg/dL INTERFACE SYSTEM 01/17/2006 3:30 AM CDT us Wicho Gomez MD CHEMISTRY ORDERABLES Final Re sult Performing Organization Address [facility] Phone Number INTERFACE SYSTEM Refer to clinic/hospital department * (ABNORMAL) CALCIUM IONIZED (01/17/2006 3:30 AM CDT) CALCIUM IONIZED 4.48(L) 4.76 - 5.16 mg/dL INTERFACE SYSTEM 01/17/2006 3:30 AM CDT Wicho Gomez MD CHEMISTRY ORDERABLES Final Re sult Performing Organization Address [facility] de Phone Number INTERFACE SYSTEM Refer to [...] Re sult Performing Organization Address [facility] Phone Number INTERFACE SYSTEM Refer to clinic/hospital department * (ABNORMAL) PTT (01/16/2006 11:50 PM CDT) PTT 67.1(H) 24.4 - 36.4 Seconds INTERFACE SYSTEM Comment: PTT Therapeutic Range: Heparin Level PTT (seconds) <0.10 units/mL <53 0.10 - 0.30 units/mL 53 - 67 0.30 - 0.70 units/mL* 67 - 95* 0.70 - 1.00 units/mL 95 - 116 *corresponds to therapeutic range for unfractionated heparin 01/16/2006 11:5 0 PM CDT us Wicho Gomez MD HEMATOLOGY ORDERABLES Final R esult Performing Organization Address [facility] de Phone Number INTERFACE SYSTEM Refer to clinic/hospital department * (ABNORMAL) POC GLUCOSE (01/16/2006 11:49 PM CDT) GLUCOSE POC 145(H) 65 - 109 mg/dL INTERFACE SYSTEM 01/16/2006 11:4 9 PM CDT us Wicho Gomez MD POINT OF CARE TESTING Final R esult Performing Organization Address [facility] Phone Number INTERFACE SYSTEM Refer to clinic/hospital department * POC GLUCOSE (01/16/2006 5:36 PM CDT) GLUCOSE POC 99 65 - 109 mg/dL INTERFACE SYSTEM COMMENT 4, GLU POC Rptd gluc at no charge INTERFACE SYSTEM 01/16/2006 5:36 PM CDT us Wicho Gomez MD POINT OF CARE TESTING Final R esult Performing Organization Address [facility] Phone Number INTERFACE SYSTEM Refer to clinic/hospital department * (ABNORMAL) POC GLUCOSE (01/16/2006 5:32 PM CDT) COMMENT, GLU POC To Be Repeated INTERFACE SYSTEM GLUCOSE POC 57(L) 65 - 109 mg/dL INTERFACE SYSTEM 01/16/2006 5:32 PM CDT us Wicho Gomez MD POINT OF CARE TESTING Final R [facility] Performing Organization Address [facility] Phone Number INTERFACE SYSTEM Refer [...] *corresponds to therapeutic range for unfractionated heparin 01/16/2006 1:08 PM CDT us Wicho Gomez MD HEMATOLOGY ORDERABLES Final R esult Performing Organization Address [facility] Phone Number INTERFACE SYSTEM Refer to clinic/hospital department * (ABNORMAL) POC GLUCOSE (01/16/2006 11:57 AM CDT) [facility] GLUCOSE POC 168(H) 65 - 109 mg/dL INTERFACE SYSTEM 01/16/2006 11:5 7 AM CDT Wicho Gomez MD POINT OF CARE TESTING Final RUST Performing Organization Address [facility] Phone Number INTERFACE SYSTEM Refer to clinic/hospital department * (ABNORMAL) POC GLUCOSE (01/16/2006 5:23 AM CDT) [facility] GLUCOSE POC 162(H) 65 - 109 mg/dL INTERFACE SYSTEM 01/16/2006 5:23 AM CDT Wicho Gomez MD POINT OF CARE TESTING Final RUST Performing Organization Address [facility] Phone Number INTERFACE SYSTEM Refer to clinic/hospital department * (ABNORMAL) PTT (01/16/2006 3:00 AM CDT) [facility] PTT 54.6(H) 24.4 - 36.4 Seconds INTERFACE SYSTEM Comment: PTT Therapeutic Range: Heparin Level PTT (seconds) <0.10 units/mL <53 0.10 - 0.30 units/mL 53 - 67 0.30 - 0.70 units/mL* 67 - 95* 0.70 - 1.00 units/mL 95 - 116 *corresponds to therapeutic range for unfractionated heparin 01/16/2006 3:00 AM CDT Wicho Gomez MD HEMATOLOGY ORDERABLES Final RUST Performing Organization Address [facility] Phone Number INTERFACE SYSTEM Refer to clinic/hospital department * (ABNORMAL) CBC WITH DIFFERENTIAL (01/16/2006 3:00 AM CDT) [facility] NEUTROPHIL ABSOLUTE 5.94 1.90 - 7.00 K/uL [...] ORDERABLES Final R esult Performing Organization Address [place]/[facility] Co de Phone Number [...] ORDERABLES Final R esult Performing Organization Address [place]/[facility]/ZIP Co de Phone Number INTERFACE SYSTEM Refer to clinic/hospital department * (ABNORMAL) PREALBUMIN (01/16/2006 3:00 AM CDT) PREALBUMIN 19(L) 20 - 40 mg/dL INTERFACE SYSTEM 01/16/2006 3:00 AM CDT us Wicho Gomez MD CHEMISTRY ORDERABLES Final Re sult Performing Organization Address [facility] Phone Number INTERFACE SYSTEM Refer to clinic/hospital department * PHOSPHORUS (01/16/2006 3:00 AM CDT) PHOSPHORUS 2.8 2.5 - 4.5 mg/dL INTERFACE SYSTEM 01/16/2006 3:00 AM CDT us Wicho Gomez MD CHEMISTRY ORDERABLES Final Re sult Performing Organization Address [facility] INTERFACE SYSTEM Refer to clinic/hospital department * MAGNESIUM LEVEL (01/16/2006 3:00 AM CDT) MAGNESIUM 2.0 1.5 - 2.5 mg/dL INTERFACE SYSTEM 01/16/2006 3:00 AM CDT us Wicho Gomez MD CHEMISTRY ORDERABLES Final Re sult Performing Organization Address [facility] Phone Number INTERFACE SYSTEM Refer to clinic/hospital department * (ABNORMAL) CALCIUM IONIZED (01/16/2006 3:00 AM CDT) CALCIUM IONIZED 4.68(L) 4.76 - 5.16 mg/dL INTERFACE SYSTEM 01/16/2006 3:00 AM CDT us Wicho Gomez MD CHEMISTRY ORDERABLES Final Re sult Performing Organization Address [facility] Phone Number INTERFACE SYSTEM Refer [...] mmol/L INTERFACE SYSTEM 01/16/2006 3:00 AM CDT us Wicho Gomez MD CHEMISTRY ORDERABLES Final Re sult Performing Organization Address [facility] Phone Number INTERFACE SYSTEM Refer to clinic/hospital department * (ABNORMAL) POC GLUCOSE (01/15/2006 11:49 PM CDT) GLUCOSE POC 148(H) 65 - 109 mg/dL INTERFACE SYSTEM 01/15/2006 11:4 9 PM CDT us Wicho Gomez MD POINT OF CARE TESTING Final R esult Performing Organization Address [facility] Phone Number INTERFACE SYSTEM Refer to clinic/hospital department * (ABNORMAL) POC GLUCOSE (01/15/2006 5:50 PM CDT) GLUCOSE POC 160(H) 65 - 109 mg/dL INTERFACE SYSTEM 01/15/2006 5:50 PM CDT us Wicho Gomez MD POINT OF CARE TESTING Final R esult Performing Organization Address [facility] de Phone Number INTERFACE SYSTEM Refer to clinic/hospital department * (ABNORMAL) PTT (01/15/2006 1:30 PM CDT) PTT 71.1(H) 24.4 - 36.4 Seconds INTERFACE SYSTEM Comment: PTT Therapeutic Range: Heparin Level PTT (seconds) <0.10 units/mL <53 0.10 - 0.30 units/mL 53 - 67 0.30 - 0.70 units/mL* 67 - 95* 0.70 - 1.00 units/mL 95 - 116 *corresponds to therapeutic range for unfractionated heparin 01/15/2006 1:30 PM CDT us Wicho Gomez MD HEMATOLOGY ORDERABLES Final R [facility] Performing Organization Address [facility] Phone Number INTERFACE SYSTEM Refer to clinic/hospital department * (ABNORMAL) POC GLUCOSE (01/15/2006 12:22 PM CDT) GLUCOSE POC 155(H) 65 - 109 mg/dL INTERFACE SYSTEM 01/15/2006 12:2 2 PM CDT us Wicho Gomez MD POINT OF CARE TESTING Final [facility] Performing Organization Address [facility] Phone Number INTERFACE SYSTEM Refer [...] *corresponds to therapeutic range for unfractionated heparin 01/15/2006 3:30 AM CDT us Wicho Gomez MD HEMATOLOGY ORDERABLES Final R esult Performing Organization Address [facility] Phone Number INTERFACE SYSTEM Refer [...] ABG ORDERABLES Final Result Performing Organization Address [facility] de Phone Number INTERFACE SYSTEM Refer to [...] R esult Performing Organization Address [facility] Co de Phone Number [...] R esult Performing Organization Address [facility] de Phone Number INTERFACE SYSTEM Refer to clinic/hospital department * (ABNORMAL) T4 FREE (01/15/2006 3:30 AM CDT) Pathologist [facility] T4 FREE 0.8(L) 0.9 - 1.7 ng/dL INTERFACE SYSTEM 01/15/2006 3:30 AM CDT Wicho Gomez MD CHEMISTRY ORDERABLES Final Re sult Performing Organization Address [facility] de Phone Number INTERFACE SYSTEM Refer to clinic/hospital department * (ABNORMAL) TSH (01/15/2006 3:30 AM CDT) Pathologist [facility] TSH 5.21(H) 0.27 - 4.20 uU/mL INTERFACE SYSTEM 01/15/2006 3:30 AM CDT Wicho Gomez MD CHEMISTRY ORDERABLES Final Re sult Performing Organization Address [facility] Phone Number INTERFACE SYSTEM Refer to clinic/hospital department * (ABNORMAL) CALCIUM IONIZED (01/15/2006 3:30 AM CDT) CALCIUM IONIZED 4.68(L) 4.76 - 5.16 mg/dL INTERFACE SYSTEM 01/15/2006 3:30 AM CDT us Wicho Gomez MD CHEMISTRY ORDERABLES Final Re sult Performing Organization Address [facility] Phone Number INTERFACE SYSTEM Refer to clinic/hospital department * (ABNORMAL) PHOSPHORUS (01/15/2006 3:30 AM CDT) PHOSPHORUS 2.0(L) 2.5 - 4.5 mg/dL INTERFACE SYSTEM 01/15/2006 3:30 AM CDT us Wicho Gomez MD CHEMISTRY ORDERABLES Final Re sult Performing Organization Address [facility] Phone Number INTERFACE SYSTEM Refer to clinic/hospital department * MAGNESIUM LEVEL (01/15/2006 3:30 AM CDT) MAGNESIUM 1.6 1.5 - 2.5 mg/dL INTERFACE SYSTEM 01/15/2006 3:30 AM CDT us Wicho Gomez MD [...] mmol/L INTERFACE SYSTEM 01/15/2006 3:30 AM CDT us Wicho Gomez MD CHEMISTRY ORDERABLES Final Re sult Performing Organization Address [facility] Phone Number INTERFACE SYSTEM Refer to clinic/hospital department * (ABNORMAL) POC GLUCOSE (01/14/2006 11:16 PM CDT) GLUCOSE POC 116(H) 65 - 109 mg/dL INTERFACE SYSTEM 01/14/2006 11:1 6 PM CDT us Wicho Gomez MD POINT OF CARE TESTING Final R esult Performing Organization Address [facility] Phone Number INTERFACE SYSTEM Refer to clinic/hospital department * (ABNORMAL) PTT (01/14/2006 9:22 PM CDT) PTT 72.0(H) 24.4 - 36.4 Seconds INTERFACE SYSTEM Comment: PTT Therapeutic Range: Heparin Level PTT (seconds) <0.10 units/mL <53 0.10 - 0.30 units/mL 53 - 67 0.30 - 0.70 units/mL* 67 - 95* 0.70 - 1.00 units/mL 95 - 116 *corresponds to therapeutic range for unfractionated heparin 01/14/2006 9:22 PM CDT us Wicho Gomez MD HEMATOLOGY ORDERABLES Final R esult Performing Organization Address [facility] Phone Number INTERFACE SYSTEM Refer to clinic/hospital department * (ABNORMAL) POC GLUCOSE (01/14/2006 5:14 PM CDT) GLUCOSE POC 136(H) 65 - 109 mg/dL INTERFACE SYSTEM 01/14/2006 5:14 PM CDT us Wicho Gomez MD POINT OF CARE TESTING Final R esult Performing Organization Address [facility] Phone Number INTERFACE SYSTEM Refer [...] *corresponds to therapeutic range for unfractionated heparin 01/14/2006 4:11 PM CDT us Wicho Gomez MD HEMATOLOGY ORDERABLES Final R [facility] Performing Organization Address [facility] Phone Number INTERFACE SYSTEM Refer to clinic/hospital department * (ABNORMAL) POC GLUCOSE (01/14/2006 12:12 PM CDT) GLUCOSE POC 114(H) 65 - 109 mg/dL INTERFACE SYSTEM 01/14/2006 12:1 2 PM CDT us Wicho Gomez MD POINT OF CARE TESTING Final R [facility] Performing Organization Address [facility] Phone Number INTERFACE SYSTEM Refer [...] *corresponds to therapeutic range for unfractionated heparin 01/14/2006 10:2 5 AM CDT us Wicho Gomez MD HEMATOLOGY ORDERABLES Final R esult Performing Organization Address [facility] Phone Number INTERFACE SYSTEM Refer [...] *corresponds to therapeutic range for unfractionated heparin 01/14/2006 3:25 AM CDT Wicho Gomez MD HEMATOLOGY ORDERABLES Final R esult Performing Organization Address [facility] Phone Number INTERFACE SYSTEM Refer [...] INTERF CINDY SYSTEM 01/14/2006 3:25 AM CDT Wicho Gomez MD HEMATOLOGY ORDERABLES Final R esult Performing Organization Address [place]/[facility] de Phone Number INTERFACE SYSTEM Refer to [...] fL INTERFACE SYSTEM 01/14/2006 3:25 AM CDT Wicho Gomez MD HEMATOLOGY ORDERABLES Final R esult Performing Organization Address [facility] Phone Number INTERFACE SYSTEM Refer to clinic/hospital department * (ABNORMAL) CALCIUM IONIZED (01/14/2006 3:25 AM CDT) CALCIUM IONIZED 4.52(L) 4.76 - 5.16 mg/dL INTERFACE SYSTEM 01/14/2006 3:25 AM CDT Wicho Gomez MD CHEMISTRY ORDERABLES Final Re sult Performing Organization Address [facility] Phone Number INTERFACE SYSTEM Refer to clinic/hospital department * (ABNORMAL) PHOSPHORUS (01/14/2006 3:25 AM CDT) PHOSPHORUS 1.7(L) 2.5 - 4.5 mg/dL INTERFACE SYSTEM 01/14/2006 3:25 AM CDT Wicho Gomez MD CHEMISTRY ORDERABLES Final Re sult Performing Organization Address [facility] Phone Number INTERFACE SYSTEM Refer to clinic/hospital department * MAGNESIUM LEVEL (01/14/2006 3:25 AM CDT) MAGNESIUM 1.8 1.5 - 2.5 mg/dL INTERFACE SYSTEM 01/14/2006 3:25 AM CDT us Wicho Gomez MD CHEMISTRY ORDERABLES Final Re sult Performing Organization Address [facility] Phone Number INTERFACE SYSTEM Refer [...] Final Re sult Performing Organization Address [facility] Phone Number INTERFACE SYSTEM Refer to clinic/hospital department * (ABNORMAL) POC GLUCOSE (01/13/2006 11:44 PM CDT) GLUCOSE POC 122(H) 65 - 109 mg/dL INTERFACE SYSTEM 01/13/2006 11:4 4 PM CDT us Wicho Gomez MD POINT OF CARE TESTING Final R esult Performing Organization Address [facility] Phone Number INTERFACE SYSTEM Refer [...] *corresponds to therapeutic range for unfractionated heparin 01/13/2006 9:50 PM CDT us Romie Laughlin MD HEMATOLOGY ORDERABLES Final Result Performing Organization Address [facility] Phone Number INTERFACE SYSTEM Refer to clinic/hospital department * (ABNORMAL) POC GLUCOSE (01/13/2006 5:44 PM CDT) GLUCOSE POC 158(H) 65 - 109 mg/dL INTERFACE SYSTEM 01/13/2006 5:44 PM CDT us Wicho Gomez MD POINT OF CARE TESTING Final R esult Performing Organization Address [facility] Phone Number INTERFACE SYSTEM Refer [...] range for unfractionated heparin Results called to Delfina at 01/13/2006 5:20 PM and read back verified. 01/13/2006 4:00 PM CDT us Rmoie Laughlin MD HEMATOLOGY ORDERABLES Final Result Performing Organization Address [facility] Phone Number INTERFACE SYSTEM Refer to clinic/hospital department * (ABNORMAL) POC GLUCOSE (01/13/2006 11:53 AM CDT) GLUCOSE POC 134(H) 65 - 109 mg/dL INTERFACE SYSTEM 01/13/2006 11:5 3 AM CDT us Wicho Gomez MD POINT OF CARE TESTING Final R esult Performing Organization Address [place]/[facility] de Phone Number INTERFACE SYSTEM Refer to clinic/hospital department * (ABNORMAL) PTT (01/13/2006 9:57 AM CDT) PTT 60.4(H) 24.4 - 36.4 Seconds INTERFACE SYSTEM Comment: PTT Therapeutic Range: Heparin Level PTT (seconds) <0.10 units/mL <53 0.10 - 0.30 units/mL 53 - 67 0.30 - 0.70 units/mL* 67 - 95* 0.70 - 1.00 units/mL 95 - 116 *corresponds to therapeutic range for unfractionated heparin 01/13/2006 9:57 AM CDT Romie Laughlin MD HEMATOLOGY ORDERABLES Final Result Performing Organization Address [facility] de Phone Number INTERFACE SYSTEM Refer to clinic/hospital department * (ABNORMAL) PTT (01/13/2006 4:00 AM CDT) PTT 73.7(H) 24.4 - 36.4 Seconds INTERFACE SYSTEM Comment: PTT Therapeutic Range: Heparin Level PTT (seconds) <0.10 units/mL <53 0.10 - 0.30 units/mL 53 - 67 0.30 - 0.70 units/mL* 67 - 95* 0.70 - 1.00 units/mL 95 - 116 *corresponds to therapeutic range for unfractionated heparin 01/13/2006 4:00 AM CDT Romie Laughlin MD HEMATOLOGY ORDERABLES Final Result Performing Organization Address [facility] de Phone Number INTERFACE SYSTEM Refer to [...] ORDERABLES Final R esult Performing Organization Address [place]/[facility] de Phone Number INTERFACE SYSTEM Refer to [...] ORDERABLES Final R esult Performing Organization Address [place]/[facility] de Phone Number INTERFACE SYSTEM Refer to clinic/hospital department * DIGOXIN LEVEL (01/13/2006 4:00 AM CDT) DIGOXIN LEVEL 1.3 0.8 - 2.0 ng/mL INTERFACE SYSTEM Comment:Digoxin Toxic Level = >2.0 ng/mL 01/13/2006 4:00 AM CDT Wicho Gomez MD CHEMISTRY ORDERABLES Final Re sult Performing Organization Address [facility] Phone Number INTERFACE SYSTEM Refer to clinic/hospital department * PHOSPHORUS (01/13/2006 4:00 AM CDT) PHOSPHORUS 2.5 2.5 - 4.5 mg/dL INTERFACE SYSTEM 01/13/2006 4:00 AM CDT Wicho Gomez MD CHEMISTRY ORDERABLES Final Re sult Performing Organization Address [facility] Phone Number INTERFACE SYSTEM Refer to clinic/hospital department * MAGNESIUM LEVEL (01/13/2006 4:00 AM CDT) MAGNESIUM 1.8 1.5 - 2.5 mg/dL INTERFACE SYSTEM 01/13/2006 4:00 AM CDT Wicho Gomez MD CHEMISTRY ORDERABLES Final Re sult Performing Organization Address [facility] Phone Number INTERFACE SYSTEM Refer to clinic/hospital department * CALCIUM IONIZED (01/13/2006 4:00 AM CDT) CALCIUM IONIZED 4.76 4.76 - 5.16 mg/dL INTERFACE SYSTEM 01/13/2006 4:00 AM CDT Wicho Gomez MD CHEMISTRY ORDERABLES Final Re sult Performing Organization Address [facility] Phone Number INTERFACE SYSTEM Refer to [...] mmol/L INTERFACE SYSTEM 01/13/2006 4:00 AM CDT us Wicho Gomez MD CHEMISTRY ORDERABLES Final Re sult Performing Organization Address [facility] de Phone Number INTERFACE SYSTEM Refer to clinic/hospital department * (ABNORMAL) POC GLUCOSE (01/12/2006 11:32 PM CDT) GLUCOSE POC 138(H) 65 - 109 mg/dL INTERFACE SYSTEM 01/12/2006 11:3 2 PM CDT us Wicho Gomez MD POINT OF CARE TESTING Final R esult Performing Organization Address [facility] de Phone Number INTERFACE SYSTEM Refer to clinic/hospital department * (ABNORMAL) PTT (01/12/2006 8:00 PM CDT) PTT 56.9(H) 24.4 - 36.4 Seconds INTERFACE SYSTEM Comment: PTT Therapeutic Range: Heparin Level PTT (seconds) <0.10 units/mL <53 0.10 - 0.30 units/mL 53 - 67 0.30 - 0.70 units/mL* 67 - 95* 0.70 - 1.00 units/mL 95 - 116 *corresponds to therapeutic range for unfractionated heparin 01/12/2006 8:00 PM CDT us Wicho Gomez MD HEMATOLOGY ORDERABLES Final R esult Performing Organization Address [facility] de Phone Number INTERFACE SYSTEM Refer to clinic/hospital department * (ABNORMAL) POC GLUCOSE (01/12/2006 5:27 PM CDT) GLUCOSE POC 170(H) 65 - 109 mg/dL INTERFACE SYSTEM 01/12/2006 5:27 PM CDT us Wicho Gomez MD POINT OF CARE TESTING Final R esult Performing Organization Address [place]/[facility] Phone Number INTERFACE SYSTEM Refer to clinic/hospital department * (ABNORMAL) PTT (01/12/2006 12:59 PM CDT) PTT 51.4(H) 24.4 - 36.4 Seconds INTERFACE SYSTEM Comment: PTT Therapeutic Range: Heparin Level PTT (seconds) <0.10 units/mL <53 0.10 - 0.30 units/mL 53 - 67 0.30 - 0.70 units/mL* 67 - 95* 0.70 - 1.00 units/mL 95 - 116 *corresponds to therapeutic range for unfractionated heparin 01/12/2006 12:5 9 PM CDT Romie Laughlin MD HEMATOLOGY ORDERABLES Final Result Performing Organization Address [facility] Phone Number INTERFACE SYSTEM Refer to clinic/hospital department * (ABNORMAL) POC GLUCOSE (01/12/2006 12:05 PM CDT) GLUCOSE POC 147(H) 65 - 109 mg/dL INTERFACE SYSTEM 01/12/2006 12:0 5 PM CDT Wicho Gomez MD POINT OF CARE TESTING Final R esult Performing Organization Address [facility] Phone Number INTERFACE SYSTEM Refer [...] *corresponds to therapeutic range for unfractionated heparin 01/12/2006 5:50 AM CDT us Wicho Gomez MD HEMATOLOGY ORDERABLES Final R esult Performing Organization Address [facility] Phone Number INTERFACE SYSTEM Refer to clinic/hospital department * (ABNORMAL) POC GLUCOSE (01/12/2006 5:15 AM CDT) Pathologist [facility] GLUCOSE POC 154(H) 65 - 109 mg/dL INTERFACE SYSTEM 01/12/2006 5:15 AM CDT Wicho Gomez MD POINT OF CARE TESTING Final R [facility] Performing Organization Address [facility] de Phone Number INTERFACE SYSTEM Refer to clinic/hospital department * (ABNORMAL) CBC WITH DIFFERENTIAL (01/12/2006 3:00 AM CDT) Pathologist [facility] NEUTROPHIL ABSOLUTE 6.61 1.90 - 7.00 K/uL [...] R esult Performing Organization Address [facility] de Phone Number INTERFACE SYSTEM Refer to [...] fL INTERFACE SYSTEM 01/12/2006 3:00 AM CDT us Wicho Gomez MD HEMATOLOGY ORDERABLES Final R esult Performing Organization Address [facility] Co de Phone Number [...] Re sult Performing Organization Address [facility] Phone Number INTERFACE SYSTEM Refer to clinic/hospital department * (ABNORMAL) CALCIUM IONIZED (01/12/2006 3:00 AM CDT) CALCIUM IONIZED 4.68(L) 4.76 - 5.16 mg/dL INTERFACE SYSTEM 01/12/2006 3:00 AM CDT us Wicho Gomez MD CHEMISTRY ORDERABLES Final Re sult Performing Organization Address [facility] Phone Number INTERFACE SYSTEM Refer to clinic/hospital department * PHOSPHORUS (01/12/2006 3:00 AM CDT) PHOSPHORUS 4.0 2.5 - 4.5 mg/dL INTERFACE SYSTEM 01/12/2006 3:00 AM CDT us Wicho Gomez MD CHEMISTRY ORDERABLES Final Re sult Performing Organization Address [facility] INTERFACE SYSTEM Refer to clinic/hospital department * MAGNESIUM LEVEL (01/12/2006 3:00 AM CDT) MAGNESIUM 2.0 1.5 - 2.5 mg/dL INTERFACE SYSTEM 01/12/2006 3:00 AM CDT us Wicho Gomez MD CHEMISTRY ORDERABLES Final Re sult Performing Organization Address [facility] INTERFACE SYSTEM Refer to clinic/hospital department * (ABNORMAL) POC GLUCOSE (01/11/2006 11:18 PM CDT) GLUCOSE POC 139(H) 65 - 109 mg/dL INTERFACE SYSTEM 01/11/2006 11:1 8 PM CDT us Wicho Gomez MD POINT OF CARE TESTING Final R esult Performing Organization Address [facility] Phone Number INTERFACE SYSTEM Refer [...] *corresponds to therapeutic range for unfractionated heparin 01/11/2006 11:1 2 PM CDT Wicho Gomez MD HEMATOLOGY ORDERABLES Final R esult Performing Organization Address [place]/[facility] de Phone Number INTERFACE SYSTEM Refer to clinic/hospital department * (ABNORMAL) POC GLUCOSE (01/11/2006 5:57 PM CDT) COMMENT, GLU POC Notified RN INTERFACE SYSTEM GLUCOSE POC 118(H) 65 - 109 mg/dL INTERFACE SYSTEM 01/11/2006 5:57 PM CDT Wicho Gomez MD POINT OF CARE TESTING Final R esult Performing Organization Address [facility] de Phone Number INTERFACE SYSTEM Refer to clinic/hospital department * PTT (01/11/2006 4:31 PM CDT) PTT 32.0 24.4 - 36.4 Seconds INTERFACE SYSTEM Comment: PTT Therapeutic Range: Heparin Level PTT (seconds) <0.10 units/mL <53 0.10 - 0.30 units/mL 53 - 67 0.30 - 0.70 units/mL* 67 - 95* 0.70 - 1.00 units/mL 95 - 116 *corresponds to therapeutic range for unfractionated heparin 01/11/2006 4:31 PM CDT Romie Laughlin MD HEMATOLOGY ORDERABLES Final Result Performing Organization Address [facility] de Phone Number INTERFACE SYSTEM Refer to clinic/hospital department * (ABNORMAL) POC GLUCOSE (01/11/2006 12:19 PM CDT) COMMENT, GLU POC Notified RN INTERFACE SYSTEM GLUCOSE POC 113(H) 65 - 109 mg/dL INTERFACE SYSTEM 01/11/2006 12:1 9 PM CDT Wicho Gomez MD POINT OF CARE TESTING Final R esult Performing Organization Address [facility] Phone Number INTERFACE SYSTEM Refer [...] *corresponds to therapeutic range for unfractionated heparin 01/11/2006 9:09 AM CDT Romie Laughlin MD HEMATOLOGY ORDERABLES Final Result Performing Organization Address [facility] Phone Number INTERFACE SYSTEM Refer to clinic/hospital department * POC GLUCOSE (01/11/2006 5:21 AM CDT) GLUCOSE POC 95 65 - 109 mg/dL INTERFACE SYSTEM 01/11/2006 5:21 AM CDT Wicho Gomez MD POINT OF CARE TESTING Final R esult Performing Organization Address [facility] Phone Number INTERFACE SYSTEM Refer to clinic/hospital department * (ABNORMAL) DIGOXIN LEVEL (01/11/2006 4:42 AM CDT) DIGOXIN LEVEL 3.2(AA) 0.8 - 2.0 ng/mL INTERFACE SYSTEM Comment: Digoxin Toxic Level = >2.0 ng/mL Results called to Kelley at 01/11/2006 5:31 AM and read back verified. 01/11/2006 4:42 AM CDT Wicho Gomez MD CHEMISTRY ORDERABLES Final Re sult Performing Organization Address [place]/[facility] de Phone Number INTERFACE SYSTEM Refer to [...] HEMATOLOGY ORDERABLES Final Result Performing Organization Address [facility] de Phone Number INTERFACE SYSTEM Refer to [...] ORDERABLES Final Result Performing Organization Address [facility] Phone Number INTERFACE SYSTEM Refer [...] 60 INTERFACE SYSTEM 01/11/2006 3:00 AM CDT Wicho Gomez MD ABG ORDERABLES Final Result Performing Organization Address [facility] Phone Number INTERFACE SYSTEM Refer to clinic/hospital department * (ABNORMAL) PHOSPHORUS (01/11/2006 3:00 AM CDT) PHOSPHORUS 5.0(H) 2.5 - 4.5 mg/dL INTERFACE SYSTEM 01/11/2006 3:00 AM CDT Romie Laughlin MD CHEMISTRY ORDERABLES Final R esult Performing Organization Address [facility] Phone Number INTERFACE SYSTEM Refer to clinic/hospital department * MAGNESIUM LEVEL (01/11/2006 3:00 AM CDT) MAGNESIUM 2.1 1.5 - 2.5 mg/dL INTERFACE SYSTEM 01/11/2006 3:00 AM CDT Romie Laughlin MD CHEMISTRY ORDERABLES Final R esult Performing Organization Address [facility] Phone Number INTERFACE SYSTEM Refer to clinic/hospital department * CALCIUM IONIZED (01/11/2006 3:00 AM CDT) CALCIUM IONIZED 4.96 4.76 - 5.16 mg/dL INTERFACE SYSTEM 01/11/2006 3:00 AM CDT Romie Laughlin MD CHEMISTRY ORDERABLES Final R esult Performing Organization Address [facility] Phone Number INTERFACE SYSTEM Refer [...] mmol/L INTERFACE SYSTEM 01/11/2006 3:00 AM CDT Romie Laughlin MD CHEMISTRY ORDERABLES [facility] Per[facility] Organization Address [facility] Phone Number INTERFACE SYSTEM Refer to clinic/hospital department * PTT (01/11/2006 1:58 AM CDT) PTT 35.0 24.4 - 36.4 Seconds INTERFACE SYSTEM Comment: PTT Therapeutic Range: Heparin Level PTT (seconds) <0.10 units/mL <53 0.10 - 0.30 units/mL 53 - 67 0.30 - 0.70 units/mL* 67 - 95* 0.70 - 1.00 units/mL 95 - 116 *corresponds to therapeutic range for unfractionated heparin 01/11/2006 1:58 AM CDT Wicho Gomez MD HEMATOLOGY ORDERABLES Final R esult Performing Organization Address [facility] Phone Number INTERFACE SYSTEM Refer to clinic/hospital department * POC GLUCOSE (01/10/2006 11:22 PM CDT) GLUCOSE POC 91 65 - 109 mg/dL INTERFACE SYSTEM 01/10/2006 11:2 2 PM CDT Wicho Gomez MD POINT OF CARE TESTING Final R [facility] Performing Organization Address [facility] Phone Number INTERFACE SYSTEM Refer to clinic/hospital department * POC GLUCOSE (01/10/2006 6:19 PM CDT) COMMENT, GLU POC Notified RN INTERFACE SYSTEM GLUCOSE POC 82 65 - 109 mg/dL INTERFACE SYSTEM 01/10/2006 6:19 PM CDT Wicho Gomez MD POINT OF CARE TESTING Final R [facility] Performing Organization Address [facility] Phone Number INTERFACE SYSTEM Refer to clinic/hospital department * POC GLUCOSE (01/10/2006 11:52 AM CDT) COMMENT, GLU POC Notified RN INTERFACE SYSTEM GLUCOSE POC 85 65 - 109 mg/dL INTERFACE SYSTEM 01/10/2006 11:5 2 AM CDT Wicho Gomez MD POINT OF CARE TESTING Final R [facility] Performing Organization Address [facility] Phone Number INTERFACE SYSTEM Refer [...] HEMATOLOGY ORDERABLES Final Result Performing Organization Address [place]/[facility] Phone Number INTERFACE SYSTEM Refer [...] HEMATOLOGY ORDERABLES Final Result Performing Organization Address [facility] Phone Number INTERFACE SYSTEM Refer to clinic/hospital department * (ABNORMAL) PREALBUMIN (01/10/2006 3:15 AM CDT) PREALBUMIN 11(L) 20 - 40 mg/dL INTERFACE SYSTEM 01/10/2006 3:15 AM CDT Romie Laughlin MD CHEMISTRY ORDERABLES Final R esult Performing Organization Address [facility] Phone Number INTERFACE SYSTEM Refer to clinic/hospital department * (ABNORMAL) CALCIUM IONIZED (01/10/2006 3:15 AM CDT) CALCIUM IONIZED 4.40(L) 4.76 - 5.16 mg/dL INTERFACE SYSTEM 01/10/2006 3:15 AM CDT Romie Laughlin MD CHEMISTRY ORDERABLES Final R esult Performing Organization Address [facility] Phone Number INTERFACE SYSTEM Refer to clinic/hospital department * (ABNORMAL) PHOSPHORUS (01/10/2006 3:15 AM CDT) PHOSPHORUS 4.9(H) 2.5 - 4.5 mg/dL INTERFACE SYSTEM 01/10/2006 3:15 AM CDT Romie Laughlin MD CHEMISTRY ORDERABLES Final R esult Performing Organization Address [facility] Phone Number INTERFACE SYSTEM Refer to clinic/hospital department * MAGNESIUM LEVEL (01/10/2006 3:15 AM CDT) MAGNESIUM 2.1 1.5 - 2.5 mg/dL INTERFACE SYSTEM 01/10/2006 3:15 AM CDT Romie Laughlin MD CHEMISTRY ORDERABLES Final R esult Performing Organization Address [facility] Phone Number INTERFACE SYSTEM Refer [...] Final R esult Performing Organization Address [facility] Phone Number INTERFACE SYSTEM Refer to clinic/hospital department * (ABNORMAL) OCCULT BLOOD, STOOL (01/09/2006 11:11 PM CDT) OCCULT BLOOD, STOOL Positive(A ) Negative INTERFACE SYSTEM 01/09/2006 11:1 1 PM CDT Wicho Gomez MD BODY FLUIDS AND STOOLS Final Result Performing Organization Address [facility] Phone Number INTERFACE SYSTEM Refer [...] *corresponds to therapeutic range for unfractionated heparin 01/09/2006 11:0 9 PM CDT Wicho Gomez MD HEMATOLOGY ORDERABLES Final R esult Performing Organization Address [facility] Phone Number INTERFACE SYSTEM Refer to clinic/hospital department * POC GLUCOSE (01/09/2006 11:03 PM CDT) GLUCOSE POC 86 65 - 109 mg/dL INTERFACE SYSTEM 01/09/2006 11:0 3 PM CDT Wicho Gomez MD POINT OF CARE TESTING Final R esult INTERFACE SYSTEM Refer to clinic/hospital department * POC GLUCOSE (01/09/2006 5:23 PM CDT) GLUCOSE POC 104 65 - 109 mg/dL INTERFACE SYSTEM 01/09/2006 5:23 PM CDT Wicho Gomez MD POINT OF CARE TESTING Final R esult Performing Organization Address City/State/[facility] Co de Phone Number INTERFACE [...] *corresponds to therapeutic range for unfractionated heparin 01/09/2006 2:30 PM CDT Romie Laughlin MD HEMATOLOGY ORDERABLES Final Result Performing Organization Address [facility] de Phone Number INTERFACE SYSTEM Refer to clinic/hospital department * POC GLUCOSE (01/09/2006 11:56 AM CDT) GLUCOSE POC 107 65 - 109 mg/dL INTERFACE SYSTEM 01/09/2006 11:5 6 AM CDT Wicho Gomez MD POINT OF CARE TESTING Final R esult Performing Organization Address City/State/[facility] Co de Phone Number INTERFACE [...] *corresponds to therapeutic range for unfractionated heparin 01/09/2006 7:00 AM CDT Romie Laughlin MD HEMATOLOGY ORDERABLES Final Result Performing Organization Address [facility] Phone Number INTERFACE SYSTEM Refer to clinic/hospital department * T4 FREE (01/09/2006 3:45 AM CDT) T4 FREE 0.9 0.9 - 1.7 ng/dL INTERFACE SYSTEM 01/09/2006 3:45 AM CDT Romie Laughlin MD CHEMISTRY ORDERABLES Final R esult Performing Organization Address [facility] Phone Number INTERFACE SYSTEM Refer [...] HEMATOLOGY ORDERABLES Final Result Performing Organization Address [facility] Phone Number INTERFACE SYSTEM Refer [...] fL INTERFACE SYSTEM 01/09/2006 3:45 AM CDT us Romie Laughlin MD HEMATOLOGY ORDERABLES Final Result Performing Organization Address [facility] Co de Phone Number INTERFACE SYSTEM Refer to clinic/hospital department * CORTISOL LEVEL (01/09/2006 3:45 AM CDT) CORTISOL LEVEL 27.8 ug/dL INTER FACE SYSTEM Comment: Cortisol Reference Range: 7 - 10 AM: 6.2 - 19.4 ug/dL 4 - 8 PM: 2.3 - 11.9 ug/dL 01/09/2006 3:45 AM CDT us Wicho Gomez MD [...] ABG ORDERABLES Final Result Performing Organization Address [facility] Phone Number INTERFACE SYSTEM Refer to clinic/hospital department * (ABNORMAL) TSH REFLEXIVE (01/09/2006 3:45 AM CDT) TSH 5.20(H) 0.27 - 4.20 uU/mL INTERFACE SYSTEM Comment:Verified by repeat a nalysis. 01/09/2006 3:45 AM CDT Romie Laughlin MD CHEMISTRY ORDERABLES Final R esult Performing Organization Address [facility] Number INTERFACE SYSTEM Refer to clinic/hospital department * (ABNORMAL) C-REACTIVE PROTEIN (01/09/2006 3:45 AM CDT) CRP 17.8(H) 0.0 - 0.8 mg/dL INTERFACE SYSTEM 01/09/2006 3:45 AM CDT Romie Laughlin MD CHEMISTRY ORDERABLES Final R esult Performing Organization Address [facility] Phone Number INTERFACE SYSTEM Refer to clinic/hospital department * (ABNORMAL) CALCIUM IONIZED (01/09/2006 3:45 AM CDT) CALCIUM IONIZED 4.60(L) 4.76 - 5.16 mg/dL INTERFACE SYSTEM 01/09/2006 3:45 AM CDT Romie Laughlin MD CHEMISTRY ORDERABLES Final R esult Performing Organization Address [facility] Phone Number INTERFACE SYSTEM Refer to clinic/hospital department * (ABNORMAL) PHOSPHORUS (01/09/2006 3:45 AM CDT) PHOSPHORUS 5.8(H) 2.5 - 4.5 mg/dL INTERFACE SYSTEM 01/09/2006 3:45 AM CDT Romie Laughlin MD CHEMISTRY ORDERABLES Final R esult Performing Organization Address [facility] de Phone Number INTERFACE SYSTEM Refer to clinic/hospital department * MAGNESIUM LEVEL (01/09/2006 3:45 AM CDT) MAGNESIUM 2.0 1.5 - 2.5 mg/dL INTERFACE SYSTEM 01/09/2006 3:45 AM CDT Romie Laughlin MD CHEMISTRY ORDERABLES Final R [facility] Performing Organization Address [facility] de Phone Number INTERFACE SYSTEM Refer to [...] R esult Performing Organization Address [facility] Phone Number INTERFACE SYSTEM Refer to clinic/hospital department * (ABNORMAL) PTT (01/09/2006 1:00 AM CDT) PTT 74.3(H) 24.4 - 36.4 Seconds INTERFACE SYSTEM Comment: PTT Therapeutic Range: Heparin Level PTT (seconds) <0.10 units/mL <53 0.10 - 0.30 units/mL 53 - 67 0.30 - 0.70 units/mL* 67 - 95* 0.70 - 1.00 units/mL 95 - 116 *corresponds to therapeutic range for unfractionated heparin 01/09/2006 1:00 AM CDT Romie Laughlin MD HEMATOLOGY ORDERABLES Final Result Performing Organization Address [facility] Phone Number INTERFACE SYSTEM Refer to clinic/hospital department * (ABNORMAL) POC GLUCOSE (01/08/2006 11:34 PM CDT) GLUCOSE POC 127(H) 65 - 109 mg/dL INTERFACE SYSTEM 01/08/2006 11:3 4 PM CDT Wicho Gomez MD POINT OF CARE TESTING Final R esult Performing Organization Address [facility] Phone Number INTERFACE SYSTEM Refer [...] *corresponds to therapeutic range for unfractionated heparin 01/08/2006 6:39 PM CDT Romie Laughlin MD HEMATOLOGY ORDERABLES Final Result Performing Organization Address [facility] Phone Number INTERFACE SYSTEM Refer [...] ABG ORDERABLES Final Result Performing Organization Address [facility] Phone Number INTERFACE SYSTEM Refer to clinic/hospital department * (ABNORMAL) PHOSPHORUS (01/08/2006 4:00 PM CDT) PHOSPHORUS 6.2(H) 2.5 - 4.5 mg/dL INTERFACE SYSTEM 01/08/2006 4:00 PM CDT Romie Laughlin MD CHEMISTRY ORDERABLES Final R esult Performing Organization Address [facility] Phone Number INTERFACE SYSTEM Refer to clinic/hospital department * MAGNESIUM LEVEL (01/08/2006 4:00 PM CDT) MAGNESIUM 2.1 1.5 - 2.5 mg/dL INTERFACE SYSTEM 01/08/2006 4:00 PM CDT Romie Laughlin MD CHEMISTRY ORDERABLES Final R esult Performing Organization Address [place] Phone Number INTERFACE SYSTEM Refer [...] mmol/L INTERFACE SYSTEM 01/08/2006 4:00 PM CDT us Romie Laughlin MD CHEMISTRY ORDERABLES Final R esult Performing Organization Address [place]/[facility] Phone Number INTERFACE SYSTEM Refer to clinic/hospital department * CORTISOL, 60 MINUTE (01/08/2006 12:50 PM CDT) CORTISOL, 60 MINUTE 44.9 ug/dL INTERFACE SYSTEM Comment: Collection date/time has been modified to: 12:50:00. Previous collection date/time: 11:45:00. 01/08/2006 12:5 0 PM CDT Romie Laughlin MD CHEMISTRY ORDERABLES Final R esult Performing Organization Address [facility] Phone Number INTERFACE SYSTEM Refer to clinic/hospital department * (ABNORMAL) POC GLUCOSE (01/08/2006 12:02 PM CDT) GLUCOSE POC 112(H) 65 - 109 mg/dL INTERFACE SYSTEM 01/08/2006 12:0 2 PM CDT us Wicho Gomez MD POINT OF CARE TESTING Final R esult Performing Organization Address [facility] de Phone Number INTERFACE SYSTEM Refer to clinic/hospital department * CORTISOL, 30 MINUTE (01/08/2006 11:45 AM CDT) CORTISOL, 30 MINUTE 44.7 ug/dL INTERFACE SYSTEM 01/08/2006 11:4 5 AM CDT Romie Laughlin MD CHEMISTRY ORDERABLES Final R esult Performing Organization Address [facility] Phone Number INTERFACE SYSTEM Refer to clinic/hospital department * CORTISOL, BASELINE (01/08/2006 11:45 AM CDT) CORTROSYN STIMULATION INTERP INTERFACE SYSTEM Comment: Cortrosyn Stimulation Test Normal Response: Baseline Cortisol: >5 ug/dL 30 minutes: Rise of 7 ug/dL above baseline 60 minutes: Rise of 18 ug/dL above baseline or peak >20 ug/dL CORTISOL, BASELINE 36.2 ug/dL INTERFACE SYSTEM 01/08/2006 11:4 5 AM CDT Romie Laughlin MD CHEMISTRY ORDERABLES Final R esult Performing Organization Address [facility] Phone Number INTERFACE SYSTEM Refer to clinic/hospital department * (ABNORMAL) PTT (01/08/2006 10:05 AM CDT) Pathologist [facility] PTT 109.0(AA) 24.4 - 36.4 Seconds INTERFACE SYSTEM Comment: PTT Therapeutic Range: Heparin Level PTT (seconds) <0.10 units/mL <53 0.10 - 0.30 units/mL 53 - 67 0.30 - 0.70 units/mL* 67 - 95* 0.70 - 1.00 units/mL 95 - 116 *corresponds to therapeutic range for unfractionated heparin Results called to PAOLA at 01/08/2006 11:55 AM and read back verified. 01/08/2006 10:0 5 AM CDT Romie Laughlin MD HEMATOLOGY ORDERABLES Final Result Performing Organization Address [facility] Phone Number INTERFACE SYSTEM Refer to clinic/hospital department * (ABNORMAL) POC GLUCOSE (01/08/2006 5:22 AM CDT) GLUCOSE POC 113(H) 65 - 109 mg/dL INTERFACE SYSTEM 01/08/2006 5:22 AM CDT Wicho Gomez MD POINT OF CARE TESTING Final R esult Performing Organization Address [facility] Phone Number INTERFACE SYSTEM Refer [...] *corresponds to therapeutic range for unfractionated heparin 01/08/2006 3:15 AM CDT us Wicho Gomez MD HEMATOLOGY ORDERABLES Final R esult Performing Organization Address [facility] Phone Number INTERFACE SYSTEM Refer to clinic/hospital department * CKMB W/REFLEX CK (01/08/2006 3:15 AM CDT) CKMB 5.4 <=6.7 ng/mL INTERFACE SYSTEM CKMB INTERP Negative INTERFAC E SYSTEM 01/08/2006 3:15 AM CDT us Wicho Gomez MD CHEMISTRY ORDERABLES Final Re sult Performing Organization Address [facility] Phone Number INTERFACE SYSTEM Refer to clinic/hospital department * (ABNORMAL) TROPONIN (W/REFLEX CKMB/CK) (01/08/2006 3:15 AM CDT) TROPONIN T 0.13(AA) <=0.03 ng/mL INTERFACE SYSTEM Comment:Persistent abnormal result TROPONIN T INTERP See Below INTERFACE SYSTEM Comment:Elevated Troponin-T, Consistent with Myocardial Injury 01/08/2006 3:15 AM CDT us Wicho Gomez MD CHEMISTRY ORDERABLES Final Re sult Performing Organization Address [facility] Phone Number INTERFACE SYSTEM Refer [...] 45% INTERFACE SYSTEM 01/08/2006 3:15 AM CDT Wicho Gomez MD ABG ORDERABLES Final Result Performing Organization Address [facility] Phone Number INTERFACE SYSTEM Refer [...] K/uL INTERFACE SYSTEM 01/08/2006 3:15 AM CDT Romie Laughlin MD HEMATOLOGY ORDERABLES Final Result Performing Organization Address [facility] de Phone Number INTERFACE SYSTEM Refer to [...] HEMATOLOGY ORDERABLES Final Result Performing Organization Address [facility] INTERFACE SYSTEM Refer to clinic/hospital department * (ABNORMAL) CALCIUM IONIZED (01/08/2006 3:15 AM CDT) CALCIUM IONIZED 4.68(L) 4.76 - 5.16 mg/dL INTERFACE SYSTEM 01/08/2006 3:15 AM CDT Romie Laughlin MD CHEMISTRY ORDERABLES Final R esult Performing Organization Address [facility] Phone Number INTERFACE SYSTEM Refer to clinic/hospital department * (ABNORMAL) PHOSPHORUS (01/08/2006 3:15 AM CDT) PHOSPHORUS 6.0(H) 2.5 - 4.5 mg/dL INTERFACE SYSTEM 01/08/2006 3:15 AM CDT Romie Laughlin MD CHEMISTRY ORDERABLES Final R esult Performing Organization Address [facility] Phone Number INTERFACE SYSTEM Refer [...] mmol/L INTERFACE SYSTEM 01/08/2006 3:15 AM CDT Romie Lauglhin MD CHEMISTRY ORDERABLES Final R esult Performing Organization Address [place]/[facility] Co de Phone Number INTERFACE SYSTEM Refer to clinic/hospital department * (ABNORMAL) POC GLUCOSE (01/08/2006 12:08 AM CDT) GLUCOSE POC 120(H) 65 - 109 mg/dL INTERFACE SYSTEM 01/08/2006 12:0 8 AM CDT Wicho Gomez MD POINT OF CARE TESTING Final R esult Performing Organization Address [place]/[facility]/ZIP Co de Phone Number INTERFACE SYSTEM [...] ABG ORDERABLES Final Result Performing Organization Address [place]/[facility] Co de Phone Number INTERFACE SYSTEM Refer to clinic/hospital department * (ABNORMAL) TROPONIN (01/07/2006 9:30 PM CDT) Pathologist [facility] TROPONIN T 0.12(AA) <=0.03 ng/mL INTERFACE SYSTEM Comment:Results called to Ia rm at 01/07/2006 10:04 PM and read back verified. TROPONIN T INTERP See Below INTERFACE SYSTEM Comment:Elevated Troponin-T, Consistent with Myocardial Injury 01/07/2006 9:30 PM CDT Romie Laughlin MD CHEMISTRY ORDERABLES Final R esult Performing Organization Address [facility] de Phone Number INTERFACE SYSTEM Refer to clinic/hospital department * CKMB W/REFLEX CK (01/07/2006 9:30 PM CDT) Pathologist [facility] CKMB 4.7 <=6.7 ng/mL INTERFACE SYSTEM CKMB INTERP Negative INTERFAC E SYSTEM 01/07/2006 9:30 PM CDT Romie Laughlin MD CHEMISTRY ORDERABLES Final R esult Performing Organization Address [facility] Co de Phone Number INTERFACE SYSTEM Refer to clinic/hospital department * (ABNORMAL) CBC WITH DIFFERENTIAL (01/07/2006 9:30 PM CDT) Pathologist [facility] NEUTROPHIL ABSOLUTE 15.64(H) 1.90 - 7.00 K/uL [...] ORDERABLES Final Result Performing Organization Address [facility] Phone Number INTERFACE SYSTEM Refer to clinic/hospital department * (ABNORMAL) CK (01/07/2006 9:30 PM CDT) CK 199(H) 10 - 170 U/L INTERFACE SYSTEM 01/07/2006 9:30 PM CDT Romie Laughlin MD CHEMISTRY ORDERABLES Final R esult Performing Organization Address [facility] Phone Number INTERFACE SYSTEM Refer to clinic/hospital department * (ABNORMAL) CALCIUM IONIZED (01/07/2006 9:30 PM CDT) CALCIUM IONIZED 4.52(L) 4.76 - 5.16 mg/dL INTERFACE SYSTEM 01/07/2006 9:30 PM CDT Romie Laughlin MD CHEMISTRY ORDERABLES Final R esult Performing Organization Address [facility] Phone Number INTERFACE SYSTEM Refer to clinic/hospital department * (ABNORMAL) PHOSPHORUS (01/07/2006 9:30 PM CDT) PHOSPHORUS 6.9(H) 2.5 - 4.5 mg/dL INTERFACE SYSTEM 01/07/2006 9:30 PM CDT Romie Laughlin MD CHEMISTRY ORDERABLES Final R esult Performing Organization Address [facility] Phone Number INTERFACE SYSTEM Refer to clinic/hospital department * MAGNESIUM LEVEL (01/07/2006 9:30 PM CDT) MAGNESIUM 2.3 1.5 - 2.5 mg/dL INTERFACE SYSTEM 01/07/2006 9:30 PM CDT Romie Laughlin MD CHEMISTRY ORDERABLES Final R esult Performing Organization Address [facility] Phone Number INTERFACE SYSTEM Refer [...] mmol/L INTERFACE SYSTEM 01/07/2006 9:30 PM CDT Romie Laughlin MD CHEMISTRY ORDERABLES Final R esult Performing Organization Address [facility] Phone Number INTERFACE SYSTEM Refer [...] *corresponds to therapeutic range for unfractionated heparin 01/07/2006 9:30 PM CDT Romie Laughlin MD HEMATOLOGY ORDERABLES Final Result Performing Organization Address [facility] de Phone Number INTERFACE SYSTEM Refer to clinic/hospital department * (ABNORMAL) PTT (01/07/2006 6:05 PM CDT) PTT 47.3(H) 24.4 - 36.4 Seconds INTERFACE SYSTEM Comment: PTT Therapeutic Range: Heparin Level PTT (seconds) <0.10 units/mL <53 0.10 - 0.30 units/mL 53 - 67 0.30 - 0.70 units/mL* 67 - 95* 0.70 - 1.00 units/mL 95 - 116 *corresponds to therapeutic range for unfractionated heparin 01/07/2006 6:05 PM CDT Romie Laughlin MD HEMATOLOGY ORDERABLES Final Result Performing Organization Address [place]/[facility] de Phone Number INTERFACE SYSTEM Refer to [...] R esult Performing Organization Address [facility] Phone Number INTERFACE SYSTEM Refer [...] patients with mechanical heart valves or post [place]. Pediatric (12 years and under): 1.5 - [...] *corresponds to therapeutic range for unfractionated heparin 01/07/2006 4:00 PM CDT Romie Laughlin MD HEMATOLOGY ORDERABLES Final Result Performing Organization Address [facility] Phone Number INTERFACE SYSTEM Refer to clinic/hospital department * (ABNORMAL) BLOOD GAS ARTERIAL (01/07/2006 4:00 PM CDT) PH ARTERIAL 7.13(AA) 7.35 - 7.45 INTERFACE SYSTEM Comment:Results called to Al fransiscoa at 01/07/2006 4:19 PM and read back [...] ABG ORDERABLES Final Result Performing Organization Address [facility] Phone Number INTERFACE SYSTEM Refer to clinic/hospital department * (ABNORMAL) PHOSPHORUS (01/07/2006 4:00 PM CDT) PHOSPHORUS 7.7(H) 2.5 - 4.5 mg/dL INTERFACE SYSTEM 01/07/2006 4:00 PM CDT Romie Laughlin MD CHEMISTRY ORDERABLES Final R esult Performing Organization Address [facility] Phone Number INTERFACE SYSTEM Refer to clinic/hospital department * MAGNESIUM LEVEL (01/07/2006 4:00 PM CDT) MAGNESIUM 2.0 1.5 - 2.5 mg/dL INTERFACE SYSTEM 01/07/2006 4:00 PM CDT us Romie Laughlin MD CHEMISTRY ORDERABLES Final R esult Performing Organization Address [facility] Phone Number INTERFACE SYSTEM Refer to clinic/hospital department * (ABNORMAL) CALCIUM IONIZED (01/07/2006 4:00 PM CDT) CALCIUM IONIZED 4.40(L) 4.76 - 5.16 mg/dL INTERFACE SYSTEM 01/07/2006 4:00 PM CDT Romie Laughlin MD CHEMISTRY ORDERABLES Final R esult Performing Organization Address [facility] Phone Number INTERFACE SYSTEM Refer [...] R esult Performing Organization Address [facility] Phone Number INTERFACE SYSTEM Refer [...] INTERFAC E SYSTEM 01/07/2006 4:00 PM CDT us Romie [...] HEMATOLOGY ORDERABLES Final Result Performing Organization Address [place]/[facility] de Phone Number INTERFACE SYSTEM Refer to [...] patients with mechanical heart valves or post [place]. Pediatric (12 years and under): 1.5 - [...] *corresponds to therapeutic range for unfractionated heparin 01/07/2006 3:21 PM CDT Romie Laughlin MD HEMATOLOGY ORDERABLES Final Result Performing Organization Address [facility] de Phone Number INTERFACE SYSTEM Refer to clinic/hospital department * CKMB W/REFLEX CK (01/07/2006 3:20 PM CDT) CKMB 1.5 <=6.7 ng/mL INTERFACE SYSTEM CKMB INTERP Negative INTERFAC E SYSTEM 01/07/2006 3:20 PM CDT Romie Laughlin MD CHEMISTRY ORDERABLES Final R esult Performing Organization Address [place]/[facility]/ZIP Co de Phone Number INTERFACE SYSTEM Refer to clinic/hospital department * (ABNORMAL) CALCIUM IONIZED (01/07/2006 3:20 PM CDT) CALCIUM IONIZED 3.16(AA) 4.76 - 5.16 mg/dL INTERFACE SYSTEM Comment: Results called to Kia at 01/07/2006 3:45 PM and read back verified. Verified by repeat analysis. 01/07/2006 3:20 PM CDT Romie Laughlin MD CHEMISTRY ORDERABLES Final R esult Performing Organization Address [place]/[facility] de Phone Number INTERFACE SYSTEM Refer to clinic/hospital department * PHOSPHORUS (01/07/2006 3:19 PM CDT) PHOSPHORUS 3.4 2.5 - 4.5 mg/dL INTERFACE SYSTEM 01/07/2006 3:19 PM CDT Romie Laughlin MD CHEMISTRY ORDERABLES Final R esult Performing Organization Address [facility] Phone Number INTERFACE SYSTEM Refer to clinic/hospital department * (ABNORMAL) MAGNESIUM LEVEL (01/07/2006 3:19 PM CDT) MAGNESIUM 1.0(AA) 1.5 - 2.5 mg/dL INTERFACE SYSTEM Comment:Results called to Marco A abdalla at 01/07/2006 4:24 PM and read back verified. 01/07/2006 3:19 PM CDT Romie Laughlin MD CHEMISTRY ORDERABLES Final R esult Performing Organization Address [facility] de Phone Number INTERFACE SYSTEM Refer to clinic/hospital department * (ABNORMAL) BASIC METABOLIC PANEL (01/07/2006 3:19 PM CDT) GLUCOSE 80 65 - 99 mg/dL INTERFACE [...] 4.9 mmol/L INTERFACE SYSTEM Comment:Results called to Al icia at 01/07/2006 4:24 PM and read back verified. CHLORIDE 128(AA) 96 - 108 mmol/L INTERFACE SYSTEM Comment:Results called to Al icia at 01/07/2006 4:24 PM and read back verified. CO2 14(L) 22 - 30 mmol/L INTERFACE SYSTEM RESULT COMMENT, CHEMISTRY INTERFACE SYSTEM 01/07/2006 3:19 PM CDT Romie Laughlin MD CHEMISTRY ORDERABLES Final R esult Performing Organization Address [facility] de Phone Number INTERFACE SYSTEM Refer to clinic/hospital department * (ABNORMAL) CBC WITH DIFFERENTIAL (01/07/2006 3:19 PM CDT) Pathologist [facility] NEUTROPHIL ABSOLUTE 6.22 1.90 - 7.00 K/uL [...] HEMATOLOGY ORDERABLES Final Result Performing Organization Address [facility] de Phone Number INTERFACE SYSTEM Refer to clinic/hospital department * (ABNORMAL) CBC WITH DIFFERENTIAL (01/07/2006 3:19 PM CDT) Pathologist [facility] WBC 8.4 4.0 - 9.8 K/uL INTERFACE [...] BLOOD GAS ARTERIAL (01/07/2006 3:15 PM CDT) Pathologist [facility] PH ARTERIAL 7.20(AA) 7.35 - 7.45 INTERFACE SYSTEM Comment:Results called to Nicole mendoza at 01/07/2006 3:59 PM and read back verified. PCO2 ARTERIAL 48 35 - 48 mm Hg INTERFACE SYSTEM PO2 ARTERIAL 28(AA) 83 - 108 mm Hg INTERFACE SYSTEM Comment:Results called to Nicole mendoza at 01/07/2006 3:59 PM and read back verified. SO2 ABG 41(L) 95 - 99 % INTERFACE SYSTEM HCO3 ARTERIAL 18(L) 22 - 26 mmol/L INTERFACE SYSTEM BASE EXCESS ABG -10.1(L) -2.0 - 3.0 mmol/L INTERFACE SYSTEM O2 CONC ARTERIAL 100% INTERFACE SYSTEM 01/07/2006 3:15 PM CDT Romie Laughlin MD ABG ORDERABLES Final Result Performing Organization Address [place]/[facility] Phone Number INTERFACE SYSTEM Refer to clinic/hospital department * (ABNORMAL) POC GLUCOSE (01/07/2006 12:51 PM CDT) COMMENT, GLU POC Notified RN INTERFACE SYSTEM GLUCOSE POC 124(H) 65 - 109 mg/dL INTERFACE SYSTEM 01/07/2006 12:5 1 PM CDT Wicho Gomez MD POINT OF CARE TESTING Final R esult Performing Organization Address [facility] Phone Number INTERFACE SYSTEM Refer [...] *corresponds to therapeutic range for unfractionated heparin 01/07/2006 10:4 5 AM CDT Romie Laughlin MD HEMATOLOGY ORDERABLES Final Result Performing Organization Address [place]/[facility] Phone Number INTERFACE SYSTEM Refer [...] range for unfractionated heparin Results called to jannette at 01/07/2006 5:01 AM and read back verified. 01/07/2006 4:00 AM CDT us Wicho Gomez MD HEMATOLOGY ORDERABLES Final R esult Performing Organization Address [facility] de Phone Number INTERFACE SYSTEM Refer to [...] K/uL INTERFACE SYSTEM 01/07/2006 4:00 AM CDT us Harshad Heller MD HEMATOLOGY ORDERABLES Final Res ult Performing Organization Address [facility] de Phone Number INTERFACE SYSTEM Refer to [...] Res ult Performing Organization Address [facility] Phone Number INTERFACE SYSTEM Refer to clinic/hospital department * (ABNORMAL) PHOSPHORUS (01/07/2006 4:00 AM CDT) PHOSPHORUS 6.3(H) 2.5 - 4.5 mg/dL INTERFACE SYSTEM 01/07/2006 4:00 AM CDT Harshad Heller MD CHEMISTRY ORDERABLES Final Resu lt Performing Organization Address [facility] [facility] INTER[facility] Refer to clinic/hospital department * MAGNESIUM LEVEL (01/07/2006 4:00 AM CDT) MAGNESIUM 1.8 1.5 - 2.5 mg/dL INTERFACE SYSTEM 01/07/2006 4:00 AM CDT Harshad Heller MD CHEMISTRY ORDERABLES Final Resu lt Performing Organization Address [facility] INTERFACE SYSTEM Refer to clinic/hospital department * (ABNORMAL) CALCIUM IONIZED (01/07/2006 4:00 AM CDT) CALCIUM IONIZED 4.72(L) 4.76 - 5.16 mg/dL INTERFACE SYSTEM 01/07/2006 4:00 AM CDT Harshad Heller MD CHEMISTRY ORDERABLES Final Resu lt Performing Organization Address [facility] Number INTERFACE SYSTEM Refer to clinic/hospital [...] mmol/L INTERFACE SYSTEM 01/07/2006 4:00 AM CDT us Harshad Heller MD CHEMISTRY ORDERABLES Final Resu lt Performing Organization Address [facility] Phone Number INTERFACE SYSTEM Refer to clinic/hospital department * POC GLUCOSE (01/07/2006 12:24 AM CDT) COMMENT, GLU POC Notified RN INTERFACE SYSTEM GLUCOSE POC 100 65 - 109 mg/dL INTERFACE SYSTEM 01/07/2006 12:2 4 AM CDT us Wicho Gomez MD POINT OF CARE TESTING Final R esult Performing Organization Address [facility] Phone Number INTERFACE SYSTEM Refer [...] *corresponds to therapeutic range for unfractionated heparin Verified by repeat analysis. Results called to enrique at 01/06/2006 9:21 PM and read back verified. 01/06/2006 7:00 PM CDT us Romie Laughlin MD HEMATOLOGY ORDERABLES Final Result Performing Organization Address [facility] Phone Number INTERFACE SYSTEM Refer to clinic/hospital department * POC GLUCOSE (01/06/2006 5:26 PM CDT) GLUCOSE POC 106 65 - 109 mg/dL INTERFACE SYSTEM 01/06/2006 5:26 PM CDT us Wicho Gomez MD POINT OF CARE TESTING Final R esult Performing Organization Address [facility] Phone Number INTERFACE SYSTEM Refer to clinic/hospital department * (ABNORMAL) TROPONIN (W/REFLEX CKMB/CK) (01/06/2006 4:45 PM CDT) Pathologist [facility] TROPONIN T 0.06(AA) <=0.03 ng/mL INTERFACE SYSTEM Comment:Results called to isela ly at 01/06/2006 5:20 PM and read back verified. TROPONIN T INTERP See Below INTERFACE SYSTEM Comment:Elevated Troponin-T, Consistent with Myocardial Injury 01/06/2006 4:45 PM CDT us Wicho Gomez MD CHEMISTRY ORDERABLES Final Re sult Performing Organization Address [facility] Phone Number INTERFACE SYSTEM Refer to clinic/hospital department * CKMB W/REFLEX CK (01/06/2006 4:45 PM CDT) CKMB 2.0 <=6.7 ng/mL INTERFACE SYSTEM CKMB INTERP Negative INTERFAC E SYSTEM 01/06/2006 4:45 PM CDT us Wicho Gomez MD CHEMISTRY ORDERABLES Final Re sult Performing Organization Address [facility] Phone Number INTERFACE SYSTEM Refer [...] mmol/L INTERFACE SYSTEM 01/06/2006 4:45 PM CDT us Wicho Gomez MD CHEMISTRY ORDERABLES Final Re sult Performing Organization Address [facility] Phone Number INTERFACE SYSTEM Refer to clinic/hospital department * CK (01/06/2006 4:45 PM CDT) CK 16 10 - 170 U/L INTERFACE SYSTEM 01/06/2006 4:45 PM CDT us Wicho Gomez MD CHEMISTRY ORDERABLES Final Re sult Performing Organization Address [facility] Phone Number INTERFACE SYSTEM Refer to clinic/hospital department * (ABNORMAL) CALCIUM IONIZED (01/06/2006 4:45 PM CDT) CALCIUM IONIZED 4.60(L) 4.76 - 5.16 mg/dL INTERFACE SYSTEM 01/06/2006 4:45 PM CDT us Wicho Gomez MD CHEMISTRY ORDERABLES Final Re sult Performing Organization Address [facility] Phone Number INTERFACE SYSTEM Refer to clinic/hospital department * (ABNORMAL) PHOSPHORUS (01/06/2006 4:45 PM CDT) PHOSPHORUS 6.3(H) 2.5 - 4.5 mg/dL INTERFACE SYSTEM 01/06/2006 4:45 PM CDT us Wicho Gomez MD CHEMISTRY ORDERABLES Final Re sult Performing Organization Address [facility] Phone Number INTERFACE SYSTEM Refer to clinic/hospital department * MAGNESIUM LEVEL (01/06/2006 4:45 PM CDT) MAGNESIUM 1.9 1.5 - 2.5 mg/dL INTERFACE SYSTEM 01/06/2006 4:45 PM CDT us Wicho Gomez MD CHEMISTRY ORDERABLES Final Re sult Performing Organization Address [place]/[facility] de Phone Number INTERFACE SYSTEM Refer to clinic/hospital department * (ABNORMAL) PTT (01/06/2006 12:15 PM CDT) PTT 42.6(H) 24.4 - 36.4 Seconds INTERFACE SYSTEM Comment: PTT Therapeutic Range: Heparin Level PTT (seconds) <0.10 units/mL <53 0.10 - 0.30 units/mL 53 - 67 0.30 - 0.70 units/mL* 67 - 95* 0.70 - 1.00 units/mL 95 - 116 *corresponds to therapeutic range for unfractionated heparin 01/06/2006 12:1 5 PM CDT Romie Laughlin MD HEMATOLOGY ORDERABLES Final Result Performing Organization Address [facility] Phone Number INTERFACE SYSTEM Refer to clinic/hospital department * POC GLUCOSE (01/06/2006 11:33 AM CDT) GLUCOSE POC 100 65 - 109 mg/dL INTERFACE SYSTEM 01/06/2006 11:3 3 AM CDT Result [facility] Wicho Gomez MD POINT OF CARE TESTING Final R esult Performing Organization Address [facility] Phone Number INTERFACE SYSTEM Refer [...] *corresponds to therapeutic range for unfractionated heparin Persistent abnormal result Verified by repeat analysis. 01/06/2006 8:20 AM CDT Romie Laughlin MD HEMATOLOGY ORDERABLES Final Result Performing Organization Address [facility] de Phone Number INTERFACE SYSTEM Refer to [...] K/uL INTERFACE SYSTEM 01/06/2006 3:30 AM CDT Harshad Heller MD HEMATOLOGY ORDERABLES Final Res ult Performing Organization Address [facility] de Phone Number INTERFACE SYSTEM Refer to clinic/hospital department * (ABNORMAL) CBC WITH DIFFERENTIAL (01/06/2006 3:30 AM CDT) Pathologist [facility] WBC 9.7 4.0 - 9.8 K/uL INTERFACE [...] ORDERABLES Final Res ult Performing Organization Address [facility] Phone Number INTERFACE SYSTEM Refer to clinic/hospital department * (ABNORMAL) PHOSPHORUS (01/06/2006 3:30 AM CDT) PHOSPHORUS 6.1(H) 2.5 - 4.5 mg/dL INTERFACE SYSTEM 01/06/2006 3:30 AM CDT Harshad Heller MD CHEMISTRY ORDERABLES Final Resu lt Performing Organization Address [facility] Phone Number INTERFACE SYSTEM Refer to clinic/hospital department * MAGNESIUM LEVEL (01/06/2006 3:30 AM CDT) MAGNESIUM 1.8 1.5 - 2.5 mg/dL INTERFACE SYSTEM 01/06/2006 3:30 AM CDT Harshad Heller MD CHEMISTRY ORDERABLES Final Resu lt Performing Organization Address [facility] Phone Number INTERFACE SYSTEM Refer to clinic/hospital department * (ABNORMAL) CALCIUM IONIZED (01/06/2006 3:30 AM CDT) CALCIUM IONIZED 4.64(L) 4.76 - 5.16 mg/dL INTERFACE SYSTEM 01/06/2006 3:30 AM CDT Harshad Heller MD CHEMISTRY ORDERABLES Final Resu lt Performing Organization Address [facility] Phone Number INTERFACE SYSTEM Refer [...] mmol/L INTERFACE SYSTEM 01/06/2006 3:30 AM CDT Harshad Heller MD CHEMISTRY ORDERABLES Final Resu lt Performing Organization Address [facility] Phone Number INTERFACE SYSTEM Refer [...] *corresponds to therapeutic range for unfractionated heparin Persistent abnormal result 01/06/2006 1:20 AM CDT Harshad Heller MD HEMATOLOGY ORDERABLES Final Res ult Performing Organization Address [facility] Phone Number INTERFACE SYSTEM Refer to clinic/hospital department * POC GLUCOSE (01/06/2006 12:40 AM CDT) GLUCOSE POC 93 65 - 109 mg/dL INTERFACE SYSTEM 01/06/2006 12:4 0 AM CDT us Wicho Gomez MD POINT OF CARE TESTING Final R esult Performing Organization Address [facility] Phone Number INTERFACE SYSTEM Refer to clinic/hospital department * (ABNORMAL) PTT (01/05/2006 11:45 PM CDT) PTT >150.0(AA ) 24.4 - 36.4 Seconds INTERFACE SYSTEM Comment: PTT Therapeutic Range: Heparin Level PTT (seconds) <0.10 units/mL <53 0.10 - 0.30 units/mL 53 - 67 0.30 - 0.70 units/mL* 67 - 95* 0.70 - 1.00 units/mL 95 - 116 *corresponds to therapeutic range for unfractionated heparin Persistent abnormal result 01/05/2006 11:4 5 PM CDT Harshad Heller MD HEMATOLOGY ORDERABLES Final Res ult Performing Organization Address [facility] de Phone Number INTERFACE SYSTEM Refer to clinic/hospital department * POC GLUCOSE (01/05/2006 6:44 PM CDT) GLUCOSE POC 89 65 - 109 mg/dL INTERFACE SYSTEM 01/05/2006 6:44 PM CDT Wicho Gomez MD POINT OF CARE TESTING Final R esult Performing Organization Address [facility] Phone Number INTERFACE SYSTEM Refer [...] R esult Performing Organization Address [facility] de Phone Number INTERFACE SYSTEM Refer to [...] R esult Performing Organization Address [facility] Phone Number INTERFACE SYSTEM Refer to clinic/hospital department * (ABNORMAL) PHOSPHORUS (01/05/2006 4:00 AM CDT) PHOSPHORUS 5.3(H) 2.5 - 4.5 mg/dL INTERFACE SYSTEM 01/05/2006 4:00 AM CDT Wicho Gomez MD CHEMISTRY ORDERABLES Final Re sult Performing Organization Address [facility] Phone Number INTERFACE SYSTEM Refer to clinic/hospital department * MAGNESIUM LEVEL (01/05/2006 4:00 AM CDT) MAGNESIUM 1.9 1.5 - 2.5 mg/dL INTERFACE SYSTEM 01/05/2006 4:00 AM CDT Wicho Gomez MD CHEMISTRY ORDERABLES Final Re sult Performing Organization Address [facility] de Phone Number INTERFACE SYSTEM Refer to clinic/hospital department * (ABNORMAL) CALCIUM IONIZED (01/05/2006 4:00 AM CDT) CALCIUM IONIZED 4.68(L) 4.76 - 5.16 mg/dL INTERFACE SYSTEM 01/05/2006 4:00 AM CDT us Wicho Gomez MD CHEMISTRY ORDERABLES Final Re sult Performing Organization Address [facility] Phone Number INTERFACE SYSTEM Refer [...] Re sult Performing Organization Address [facility] Phone Number INTERFACE SYSTEM Refer to [...] range for unfractionated heparin Results called to nohemi at 01/05/2006 4:36 AM and read back verified. 01/05/2006 2:59 AM CDT us Wicho Gomez MD HEMATOLOGY ORDERABLES Final R esult Performing Organization Address [facility] Phone Number INTERFACE SYSTEM Refer to clinic/hospital department * (ABNORMAL) POC GLUCOSE (01/05/2006 12:54 AM CDT) GLUCOSE POC 62(L) 65 - 109 mg/dL INTERFACE SYSTEM 01/05/2006 12:5 4 AM CDT us Wicho Gomez MD POINT OF CARE TESTING Final R esult Performing Organization Address [facility] Phone Number INTERFACE SYSTEM Refer [...] *corresponds to therapeutic range for unfractionated heparin 01/04/2006 8:00 PM CDT us Romie Laughlin MD HEMATOLOGY ORDERABLES Final Result Performing Organization Address [facility] Phone Number INTERFACE SYSTEM Refer to clinic/hospital department * POC GLUCOSE (01/04/2006 7:19 PM CDT) GLUCOSE POC 74 65 - 109 mg/dL INTERFACE SYSTEM COMMENT 4, GLU POC Rptd gluc at no charge INTERFACE SYSTEM 01/04/2006 7:19 PM CDT us Wicho Gomez MD POINT OF CARE TESTING Final R esult Performing Organization Address [facility] de Phone Number INTERFACE SYSTEM Refer to clinic/hospital department * (ABNORMAL) POC GLUCOSE (01/04/2006 7:17 PM CDT) COMMENT, GLU POC Notified RN INTERFACE SYSTEM COMMENT 3, GLU POC Repeated Test INTERFACE SYSTEM GLUCOSE POC 54(L) 65 - 109 mg/dL INTERFACE SYSTEM COMMENT 4, GLU POC Glucose to be verified INTERFACE SYSTEM 01/04/2006 7:17 PM CDT us Wicho Gomez MD POINT OF CARE TESTING Final R esult Performing Organization Address [facility] de Phone Number INTERFACE SYSTEM Refer to clinic/hospital department * EOSINOPHIL SMEAR (01/04/2006 3:12 PM CDT) EOSINOPHIL SMEAR SOURCE Urine INTERFACE SYSTEM EOSINOPHIL SMEAR No Eos Seen No Eos Seen INTERFACE SYSTEM 01/04/2006 3:12 PM CDT Wicho Gomez MD BODY FLUIDS AND STOOLS COM Fi nal Result Performing Organization Address [facility] de Phone Number INTERFACE SYSTEM Refer to clinic/hospital department * OSMOLALITY, URINE (01/04/2006 3:12 PM CDT) OSMOLALITY, URINE 388 50 - 1200 mOsml/kg INTERFACE SYSTEM 01/04/2006 3:12 PM CDT Wicho Gomez MD URINE ORDERABLES Final Result Performing Organization Address [facility] Phone Number INTERFACE SYSTEM Refer [...] URINE ORDERABLES Final Result Performing Organization Address [facility] Phone Number INTERFACE SYSTEM Refer to clinic/hospital department * (ABNORMAL) PTT (01/04/2006 3:00 PM CDT) PTT 38.2(H) 24.4 - 36.4 Seconds INTERFACE SYSTEM Comment: PTT Therapeutic Range: Heparin Level PTT (seconds) <0.10 units/mL <53 0.10 - 0.30 units/mL 53 - 67 0.30 - 0.70 units/mL* 67 - 95* 0.70 - 1.00 units/mL 95 - 116 *corresponds to therapeutic range for unfractionated heparin 01/04/2006 3:00 PM CDT Romie Laughlin MD HEMATOLOGY ORDERABLES Final Result Performing Organization Address [facility] Phone Number INTERFACE SYSTEM Refer to clinic/hospital department * PTT (01/04/2006 10:40 AM CDT) PTT 31.5 24.4 - 36.4 Seconds INTERFACE SYSTEM Comment: PTT Therapeutic Range: Heparin Level PTT (seconds) <0.10 units/mL <53 0.10 - 0.30 units/mL 53 - 67 0.30 - 0.70 units/mL* 67 - 95* 0.70 - 1.00 units/mL 95 - 116 *corresponds to therapeutic range for unfractionated heparin 01/04/2006 10:4 0 AM CDT Wicho Goemz MD HEMATOLOGY ORDERABLES Final R esult Performing Organization Address [facility] de Phone Number INTERFACE SYSTEM Refer to clinic/hospital department * (ABNORMAL) ALBUMIN LEVEL (01/04/2006 3:45 AM CDT) ALBUMIN 1.4(L) 3.4 - 4.8 g/dL INTERFACE SYSTEM 01/04/2006 3:45 AM CDT Wicho Gomez MD CHEMISTRY ORDERABLES Final Re sult Performing Organization Address [place]/[facility]/ZIP Co de Phone Number INTERFACE SYSTEM [...] R esult Performing Organization Address [facility] de Phone Number INTERFACE SYSTEM Refer to [...] fL INTERFACE SYSTEM 01/04/2006 3:45 AM CDT us Wicho Gomez MD HEMATOLOGY ORDERABLES Final R esult Performing Organization Address [facility] Number INTERFACE SYSTEM Refer to clinic/hospital department * (ABNORMAL) C-REACTIVE PROTEIN (01/04/2006 3:45 AM CDT) CRP 14.9(H) 0.0 - 0.8 mg/dL INTERFACE SYSTEM 01/04/2006 3:45 AM CDT us Wicho Gomez MD CHEMISTRY ORDERABLES Final Re sult Performing Organization Address [facility] Number INTERFACE SYSTEM Refer to clinic/hospital [...] Final Re sult Performing Organization Address [facility] Phone Number INTERFACE SYSTEM Refer to clinic/hospital department * (ABNORMAL) CALCIUM IONIZED (01/04/2006 3:45 AM CDT) CALCIUM IONIZED 4.44(L) 4.76 - 5.16 mg/dL INTERFACE SYSTEM 01/04/2006 3:45 AM CDT us Wicho Gomez MD CHEMISTRY ORDERABLES Final Re sult Performing Organization Address [facility] Phone Number INTERFACE SYSTEM Refer [...] mmol/L INTERFACE SYSTEM 01/04/2006 3:45 AM CDT us Wicho Gomez MD CHEMISTRY ORDERABLES Final Re sult Performing Organization Address [facility] INTERFACE SYSTEM Refer to clinic/hospital department * POC GLUCOSE (01/04/2006 12:15 AM CDT) GLUCOSE POC 76 65 - 109 mg/dL INTERFACE SYSTEM 01/04/2006 12:1 5 AM CDT Result Roxie Gomez MD POINT OF CARE TESTING Final R esult Performing Organization Address [facility] Phone Number INTERFACE SYSTEM Refer [...] *corresponds to therapeutic range for unfractionated heparin 01/04/2006 12:1 0 AM CDT Result Roxie Gomez MD HEMATOLOGY ORDERABLES Final R esult Performing Organization Address [facility] Phone Number INTERFACE SYSTEM Refer to clinic/hospital department * POC GLUCOSE (01/03/2006 6:38 PM CDT) GLUCOSE POC 107 65 - 109 mg/dL INTERFACE SYSTEM 01/03/2006 6:38 PM CDT Wicho Gomez MD POINT OF CARE TESTING Final R esult Performing Organization Address [facility] Phone Number INTERFACE SYSTEM Refer to clinic/hospital department * (ABNORMAL) PTT (01/03/2006 3:30 PM CDT) PTT 78.4(H) 24.4 - 36.4 Seconds INTERFACE SYSTEM Comment: PTT Therapeutic Range: Heparin Level PTT (seconds) <0.10 units/mL <53 0.10 - 0.30 units/mL 53 - 67 0.30 - 0.70 units/mL* 67 - 95* 0.70 - 1.00 units/mL 95 - 116 *corresponds to therapeutic range for unfractionated heparin Collection date/time has been modified to: 15:30:00. Previous collection date/time: 13:00:00. 01/03/2006 3:30 PM CDT Romie Laughlin MD HEMATOLOGY ORDERABLES Final Result Performing Organization Address [facility] Phone Number INTERFACE SYSTEM Refer to clinic/hospital department * POC GLUCOSE (01/03/2006 11:55 AM CDT) GLUCOSE POC 93 65 - 109 mg/dL INTERFACE SYSTEM 01/03/2006 11:5 5 AM CDT Wicho Gomez MD POINT OF CARE TESTING Final R esult Performing Organization Address [facility] Phone Number INTERFACE SYSTEM Refer [...] ABG ORDERABLES Final Result Performing Organization Address [facility] Phone Number INTERFACE SYSTEM Refer to clinic/hospital department * CALCIUM IONIZED (01/03/2006 9:44 AM CDT) CALCIUM IONIZED 4.76 4.76 - 5.16 mg/dL INTERFACE SYSTEM 01/03/2006 9:44 AM CDT us Wicho Gomez MD CHEMISTRY ORDERABLES Final Re sult Performing Organization Address [facility] Phone Number INTERFACE SYSTEM Refer to clinic/hospital department * (ABNORMAL) PHOSPHORUS (01/03/2006 9:44 AM CDT) PHOSPHORUS 4.7(H) 2.5 - 4.5 mg/dL INTERFACE SYSTEM 01/03/2006 9:44 AM CDT us Wicho Gomez MD CHEMISTRY ORDERABLES Final Re sult Performing Organization Address [facility] de Phone Number INTERFACE SYSTEM Refer to clinic/hospital department * MAGNESIUM LEVEL (01/03/2006 9:43 AM CDT) MAGNESIUM 1.8 1.5 - 2.5 mg/dL INTERFACE SYSTEM 01/03/2006 9:43 AM CDT us Wicho Gomez MD CHEMISTRY ORDERABLES Final Re sult Performing Organization Address [facility] Phone Number INTERFACE SYSTEM Refer [...] Final Re sult Performing Organization Address [facility] Phone Number INTERFACE SYSTEM Refer [...] R esult Performing Organization Address [facility] Phone Number INTERFACE SYSTEM Refer [...] Wicho Gomez MD HEMATOLOGY ORDERABLES Final R krystalchantelle Performing Organization Address [place]/[facility] Co de Phone Number INTERFACE SYSTEM Refer to clinic/hospital department * POC GLUCOSE (01/03/2006 9:41 AM CDT) GLUCOSE POC 95 65 - 109 mg/dL INTERFACE SYSTEM 01/03/2006 9:41 AM CDT us Wicho Gomez MD POINT OF CARE TESTING Final R krystalchantelle Performing Organization Address [place]/[facility] Co de Phone Number INTERFACE SYSTEM Refer to clinic/hospital department * POC GLUCOSE (01/03/2006 8:37 AM CDT) GLUCOSE POC 93 65 - 109 mg/dL INTERFACE SYSTEM 01/03/2006 8:37 AM CDT us Wicho Gomez MD POINT OF CARE TESTING Final R eschantelle Performing Organization Address [place]/[facility] Co de Phone Number INTERFACE SYSTEM Refer to clinic/hospital department * POC GLUCOSE (01/03/2006 7:56 AM CDT) GLUCOSE POC 80 65 - 109 mg/dL INTERFACE SYSTEM 01/03/2006 7:56 AM CDT Wicho Gomez MD POINT OF CARE TESTING Final R esult Performing Organization Address [facility] de Phone Number INTERFACE SYSTEM Refer to [...] 35% INTERFACE SYSTEM 01/03/2006 3:45 AM CDT Harshad Heller MD ABG ORDERABLES Final Result Performing Organization Address [facility] Phone Number INTERFACE SYSTEM Refer [...] R esult Performing Organization Address [facility]/ZIP Co de Phone Number INTERFACE SYSTEM [...] R esult Performing Organization Address [facility] Phone Number INTERFACE SYSTEM Refer to clinic/hospital department * PHOSPHORUS (01/03/2006 3:45 AM CDT) PHOSPHORUS 4.5 2.5 - 4.5 mg/dL INTERFACE SYSTEM 01/03/2006 3:45 AM CDT Wicho Gomez MD CHEMISTRY ORDERABLES Final Re sult Performing Organization Address [facility] de Phone Number INTERFACE SYSTEM Refer to clinic/hospital department * MAGNESIUM LEVEL (01/03/2006 3:45 AM CDT) MAGNESIUM 1.9 1.5 - 2.5 mg/dL INTERFACE SYSTEM 01/03/2006 3:45 AM CDT us Wicho Gomez MD CHEMISTRY ORDERABLES Final Re sult Performing Organization Address [facility] Phone Number INTERFACE SYSTEM Refer to clinic/hospital department * (ABNORMAL) CALCIUM IONIZED (01/03/2006 3:45 AM CDT) CALCIUM IONIZED 4.64(L) 4.76 - 5.16 mg/dL INTERFACE SYSTEM 01/03/2006 3:45 AM CDT Wicho Gomez MD CHEMISTRY ORDERABLES Final Re sult Performing Organization Address [facility] Phone Number INTERFACE SYSTEM Refer [...] mmol/L INTERFACE SYSTEM 01/03/2006 3:45 AM CDT Wicho Gomez MD CHEMISTRY ORDERABLES Final Re sult Performing Organization Address [facility] Phone Number INTERFACE SYSTEM Refer to clinic/hospital department * DIGOXIN LEVEL (01/03/2006 3:45 AM CDT) DIGOXIN LEVEL 1.1 0.8 - 2.0 ng/mL INTERFACE SYSTEM Comment:Digoxin Toxic Level = >2.0 ng/mL 01/03/2006 3:45 AM CDT us Wicho Gomez MD CHEMISTRY ORDERABLES Final Re sult Performing Organization Address [facility] Phone Number INTERFACE SYSTEM Refer to clinic/hospital department * POC GLUCOSE (01/02/2006 11:56 PM CDT) COMMENT, GLU POC Notified RN INTERFACE SYSTEM GLUCOSE POC 95 65 - 109 mg/dL INTERFACE SYSTEM 01/02/2006 11:5 6 PM CDT Wicho Gomez MD POINT OF CARE TESTING Final R esult Performing Organization Address [facility] Phone Number INTERFACE SYSTEM Refer to clinic/hospital department * (ABNORMAL) PTT (01/02/2006 6:55 PM CDT) PTT 102.3(AA) 24.4 - 36.4 Seconds INTERFACE SYSTEM Comment: PTT Therapeutic Range: Heparin Level PTT (seconds) <0.10 units/mL <53 0.10 - 0.30 units/mL 53 - 67 0.30 - 0.70 units/mL* 67 - 95* 0.70 - 1.00 units/mL 95 - 116 *corresponds to therapeutic range for unfractionated heparin Verified by repeat analysis. Persistent abnormal result 01/02/2006 6:55 PM CDT Romie Laughlin MD HEMATOLOGY ORDERABLES Final Result Performing Organization Address [facility] Phone Number INTERFACE SYSTEM Refer to clinic/hospital department * POC GLUCOSE (01/02/2006 5:54 PM CDT) GLUCOSE POC 100 65 - 109 mg/dL INTERFACE SYSTEM 01/02/2006 5:54 PM CDT Wicho Gomez MD POINT OF CARE TESTING Final R esult Performing Organization Address [facility] Phone Number INTERFACE SYSTEM Refer to clinic/hospital department * POC GLUCOSE (01/02/2006 2:54 PM CDT) GLUCOSE POC 74 65 - 109 mg/dL INTERFACE SYSTEM 01/02/2006 2:54 PM CDT Wicho Gomez MD POINT OF CARE TESTING Final R esult Performing Organization Address [facility] Phone Number INTERFACE SYSTEM Refer to clinic/hospital department * (ABNORMAL) PTT (01/02/2006 1:59 PM CDT) [facility] PTT 96.0(AA) 24.4 - 36.4 Seconds INTERFACE SYSTEM Comment: PTT Therapeutic Range: Heparin Level PTT (seconds) <0.10 units/mL <53 0.10 - 0.30 units/mL 53 - 67 0.30 - 0.70 units/mL* 67 - 95* 0.70 - 1.00 units/mL 95 - 116 *corresponds to therapeutic range for unfractionated heparin Verified by repeat analysis. Results called to Juarez at 01/02/2006 2:24 PM and read back verified. 01/02/2006 1:59 PM CDT us Romie Laughlin MD HEMATOLOGY ORDERABLES Final Result Performing Organization Address [facility] Phone Number INTERFACE SYSTEM Refer to clinic/hospital department * (ABNORMAL) POC GLUCOSE (01/02/2006 1:14 PM CDT) [facility] GLUCOSE POC 44(AA) 65 - 109 mg/dL INTERFACE SYSTEM 01/02/2006 1:14 PM CDT us Wicho Gomez MD POINT OF CARE TESTING Final R esult Performing Organization Address [facility] Phone Number INTERFACE SYSTEM Refer to clinic/hospital department * (ABNORMAL) BLOOD GAS ARTERIAL (01/02/2006 4:53 AM CDT) [facility] PH ARTERIAL 7.36 7.35 - 7.45 INTERFACE [...] 50% INTERFACE SYSTEM 01/02/2006 4:53 AM CDT Harshad Heller MD ABG ORDERABLES Final Result Performing Organization Address [facility] Phone Number INTERFACE SYSTEM Refer [...] *corresponds to therapeutic range for unfractionated heparin 01/02/2006 4:30 AM CDT Wicho Gomez MD HEMATOLOGY ORDERABLES Final R esult Performing Organization Address [facility] Phone Number INTERFACE SYSTEM Refer [...] K/uL INTERFACE SYSTEM 01/02/2006 4:30 AM CDT Harshad Heller MD HEMATOLOGY ORDERABLES Final Res ult Performing Organization Address [facility] de Phone Number INTERFACE SYSTEM Refer to clinic/hospital department * (ABNORMAL) CBC WITH DIFFERENTIAL (01/02/2006 4:30 AM CDT) WBC 10.9(H) 4.0 - 9.8 K/uL INTERFACE [...] Res ult Performing Organization Address [facility] Phone Number INTERFACE SYSTEM Refer to clinic/hospital department * (ABNORMAL) PHOSPHORUS (01/02/2006 4:30 AM CDT) PHOSPHORUS 5.4(H) 2.5 - 4.5 mg/dL INTERFACE SYSTEM 01/02/2006 4:30 AM CDT Harshad Heller MD CHEMISTRY ORDERABLES Final Resu lt Performing Organization Address [facility] Phone Number INTERFACE SYSTEM Refer to clinic/hospital department * MAGNESIUM LEVEL (01/02/2006 4:30 AM CDT) MAGNESIUM 1.8 1.5 - 2.5 mg/dL INTERFACE SYSTEM 01/02/2006 4:30 AM CDT Harshad Heller MD CHEMISTRY ORDERABLES Final Resu lt Performing Organization Address [facility] de Phone Number INTERFACE SYSTEM Refer to clinic/hospital department * (ABNORMAL) CALCIUM IONIZED (01/02/2006 4:30 AM CDT) CALCIUM IONIZED 4.48(L) 4.76 - 5.16 mg/dL INTERFACE SYSTEM 01/02/2006 4:30 AM CDT Harshad Heller MD CHEMISTRY ORDERABLES Final Resu lt Performing Organization Address [facility] Phone Number INTERFACE SYSTEM Refer [...] mmol/L INTERFACE SYSTEM 01/02/2006 4:30 AM CDT Harshad Heller MD CHEMISTRY ORDERABLES Final Resu lt Performing Organization Address [facility] Phone Number INTERFACE SYSTEM Refer to clinic/hospital department * POC GLUCOSE (01/02/2006 12:43 AM CDT) COMMENT, GLU POC Notified RN INTERFACE SYSTEM GLUCOSE POC 65 65 - 109 mg/dL INTERFACE SYSTEM 01/02/2006 12:4 3 AM CDT Wicho Gomez MD POINT OF CARE TESTING Final R esult Performing Organization Address [facility] Phone Number INTERFACE SYSTEM Refer [...] *corresponds to therapeutic range for unfractionated heparin 01/01/2006 10:4 5 PM CDT Romie Laughlin MD HEMATOLOGY ORDERABLES Final Result Performing Organization Address [facility] Phone Number INTERFACE SYSTEM Refer to clinic/hospital department * POC GLUCOSE (01/01/2006 4:59 PM CDT) GLUCOSE POC 91 65 - 109 mg/dL INTERFACE SYSTEM 01/01/2006 4:59 PM CDT Wicho Gomez MD POINT OF CARE TESTING Final R esult Performing Organization Address [facility] Phone Number INTERFACE SYSTEM Refer [...] range for unfractionated heparin Results called to natalio at 01/01/2006 1:15 PM and read back verified. 01/01/2006 12:4 5 PM CDT Romie Laughlin MD HEMATOLOGY ORDERABLES Final Result Performing Organization Address [facility] Phone Number INTERFACE SYSTEM Refer to clinic/hospital department * POC GLUCOSE (01/01/2006 12:12 PM CDT) GLUCOSE POC 90 65 - 109 mg/dL INTERFACE SYSTEM 01/01/2006 12:1 2 PM CDT Wicho Gomez MD POINT OF CARE TESTING Final R esult Performing Organization Address [facility] Phone Number INTERFACE SYSTEM Refer [...] *corresponds to therapeutic range for unfractionated heparin 01/01/2006 6:20 AM CDT Romie Laughlin MD HEMATOLOGY ORDERABLES Final Result Performing Organization Address [facility] Phone Number INTERFACE SYSTEM Refer to clinic/hospital department * (ABNORMAL) POC GLUCOSE (01/01/2006 6:10 AM CDT) GLUCOSE POC 112(H) 65 - 109 mg/dL INTERFACE SYSTEM 01/01/2006 6:10 AM CDT Wicho Gomez MD POINT OF CARE TESTING Final R esult Performing Organization Address [facility] Phone Number INTERFACE SYSTEM Refer [...] Reviewed INTERFACE SYSTEM 01/01/2006 3:50 AM CDT Harshad Heller MD HEMATOLOGY ORDERABLES Final Res ult Performing Organization Address [facility] Phone Number INTERFACE SYSTEM Refer [...] fL INTERFACE SYSTEM 01/01/2006 3:50 AM CDT Harshad Heller MD HEMATOLOGY ORDERABLES Final Res ult Performing Organization Address [facility] Co de Phone Number INTERFACE SYSTEM Refer to clinic/hospital department * (ABNORMAL) CALCIUM IONIZED (01/01/2006 3:50 AM CDT) CALCIUM IONIZED 4.64(L) 4.76 - 5.16 mg/dL INTERFACE SYSTEM 01/01/2006 3:50 AM CDT Harshad Heller MD CHEMISTRY ORDERABLES Final Resu lt Performing Organization Address [facility] Phone Number INTERFACE SYSTEM Refer to clinic/hospital department * (ABNORMAL) PHOSPHORUS (01/01/2006 3:50 AM CDT) PHOSPHORUS 5.0(H) 2.5 - 4.5 mg/dL INTERFACE SYSTEM 01/01/2006 3:50 AM CDT Harshad Heller MD CHEMISTRY ORDERABLES Final Resu lt Performing Organization Address [facility] Phone Number INTERFACE SYSTEM Refer to clinic/hospital department * MAGNESIUM LEVEL (01/01/2006 3:50 AM CDT) MAGNESIUM 2.1 1.5 - 2.5 mg/dL INTERFACE SYSTEM 01/01/2006 3:5 0 AM CDT Harshad Hleler MD CHEMISTRY ORDERABLES Final Resu Performing Organization Address [facility] Phone Number INTERFACE SYSTEM Refer [...] mmol/L INTERFACE SYSTEM 01/01/2006 3:50 AM CDT Harshad Heller MD CHEMISTRY ORDERABLES Final Resu lt Performing Organization Address [facility] Phone Number INTERFACE SYSTEM Refer to [...] range for unfractionated heparin Results called to Makenzie at 01/01/2006 2:56 AM and read back verified. 01/01/2006 1:00 AM CDT us Romie Laughlin MD HEMATOLOGY ORDERABLES Final Result Performing Organization Address [facility] Phone Number INTERFACE SYSTEM Refer to clinic/hospital department * (ABNORMAL) POC GLUCOSE (01/01/2006 12:33 AM CDT) GLUCOSE POC 128(H) 65 - 109 mg/dL INTERFACE SYSTEM 01/01/2006 12:3 3 AM CDT us Wicho Gomez MD POINT OF CARE TESTING Final R esult Performing Organization Address [facility] Phone Number INTERFACE SYSTEM Refer [...] *corresponds to therapeutic range for unfractionated heparin 12/31/2005 7:00 PM CDT Romie Laughlin MD HEMATOLOGY ORDERABLES Final Result Performing Organization Address [facility] Phone Number INTERFACE SYSTEM Refer to clinic/hospital department * POC GLUCOSE (12/31/2005 6:37 PM CDT) GLUCOSE POC 97 65 - 109 mg/dL INTERFACE SYSTEM 12/31/2005 6:37 PM CDT Wicho Gomez MD POINT OF CARE TESTING Final R esult Performing Organization Address [facility] Phone Number INTERFACE SYSTEM Refer [...] *corresponds to therapeutic range for unfractionated heparin 12/31/2005 1:00 PM CDT Romie Laughlin MD HEMATOLOGY ORDERABLES Final Result Performing Organization Address [facility] Phone Number INTERFACE SYSTEM Refer to clinic/hospital department * POC GLUCOSE (12/31/2005 12:58 PM CDT) COMMENT, GLU POC Notified RN INTERFACE SYSTEM GLUCOSE POC 80 65 - 109 mg/dL INTERFACE SYSTEM 12/31/2005 12:5 8 PM CDT Wicho Gomez MD POINT OF CARE TESTING Final R esult Performing Organization Address [place]/[facility] Phone Number INTERFACE SYSTEM Refer [...] *corresponds to therapeutic range for unfractionated heparin 12/31/2005 6:50 AM CDT us Romie Laughlin MD HEMATOLOGY ORDERABLES Final Result Performing Organization Address [facility] de Phone Number INTERFACE SYSTEM Refer to clinic/hospital department * POC GLUCOSE (12/31/2005 6:16 AM CDT) Pathologist [facility] GLUCOSE POC 92 65 - 109 mg/dL INTERFACE SYSTEM 12/31/2005 6:16 AM CDT us Wicho Gomez MD POINT OF CARE TESTING Final R esult Performing Organization Address [facility] de Phone Number INTERFACE SYSTEM Refer to [...] HEMATOLOGY ORDERABLES Final Result Performing Organization Address [place]/[facility]/ZIP Co de Phone Number INTERFACE SYSTEM [...] fL INTERFACE SYSTEM 12/31/2005 4:00 AM CDT us Romie Laughlin MD HEMATOLOGY ORDERABLES Final Result Performing Organization Address [place]/[facility] de Phone Number INTERFACE SYSTEM Refer to clinic/hospital department * (ABNORMAL) C-REACTIVE PROTEIN (12/31/2005 4:00 AM CDT) CRP 24.9(H) 0.0 - 0.8 mg/dL INTERFACE SYSTEM 12/31/2005 4:00 AM CDT us Tobi Tubbs MD CHEMISTRY ORDERABLES Final Result Performing Organization Address [place]/[facility]/ZIP Co de Phone Number INTERFACE SYSTEM Refer to clinic/hospital department * (ABNORMAL) PHOSPHORUS (12/31/2005 4:00 AM CDT) PHOSPHORUS 6.0(H) 2.5 - 4.5 mg/dL INTERFACE SYSTEM 12/31/2005 4:00 AM CDT Romie Laughlin MD CHEMISTRY ORDERABLES Final R esult Performing Organization Address [facility] Phone Number INTERFACE SYSTEM Refer to clinic/hospital department * MAGNESIUM LEVEL (12/31/2005 4:00 AM CDT) MAGNESIUM 1.9 1.5 - 2.5 mg/dL INTERFACE SYSTEM 12/31/2005 4:00 AM CDT Romie Laughlin MD CHEMISTRY ORDERABLES Final R esult Performing Organization Address [facility] Phone Number INTERFACE SYSTEM Refer to clinic/hospital department * (ABNORMAL) CALCIUM IONIZED (12/31/2005 4:00 AM CDT) CALCIUM IONIZED 4.52(L) 4.76 - 5.16 mg/dL INTERFACE SYSTEM 12/31/2005 4:00 AM CDT Romie Laughlin MD CHEMISTRY ORDERABLES Final R esult Performing Organization Address [facility] Phone Number INTERFACE SYSTEM Refer [...] R esult Performing Organization Address [facility] Phone Number INTERFACE SYSTEM Refer [...] range for unfractionated heparin Results called to princess at 12/31/2005 2:13 AM and read back verified. 12/31/2005 1:15 AM CDT Romie Laughlin MD HEMATOLOGY ORDERABLES Final Result Performing Organization Address [facility] Phone Number INTERFACE SYSTEM Refer to clinic/hospital department * (ABNORMAL) POC GLUCOSE (12/30/2005 11:52 PM CDT) GLUCOSE POC 110(H) 65 - 109 mg/dL INTERFACE SYSTEM COMMENT 4, GLU POC Rptd gluc at no charge INTERFACE SYSTEM 12/30/2005 11:5 2 PM CDT Wicho Gomez MD POINT OF CARE TESTING Final R esult Performing Organization Address [facility] Phone Number INTERFACE SYSTEM Refer to clinic/hospital department * POC GLUCOSE (12/30/2005 11:49 PM CDT) GLUCOSE POC 79 65 - 109 mg/dL INTERFACE SYSTEM COMMENT 4, GLU POC Glucose to be verified INTERFACE SYSTEM 12/30/2005 11:4 9 PM CDT Wicho Gomez MD POINT OF CARE TESTING Final R esult Performing Organization Address [facility] Phone Number INTERFACE SYSTEM Refer [...] *corresponds to therapeutic range for unfractionated heparin 12/30/2005 6:00 PM CDT Romie Laughlin MD HEMATOLOGY ORDERABLES Final Result Performing Organization Address [facility] Phone Number INTERFACE SYSTEM Refer to clinic/hospital department * (ABNORMAL) POC GLUCOSE (12/30/2005 5:58 PM CDT) Pathologist [facility] GLUCOSE POC 119(H) 65 - 109 mg/dL INTERFACE SYSTEM 12/30/2005 5:58 PM CDT Wicho Gomez MD POINT OF CARE TESTING Final R esult Performing Organization Address [facility] Phone Number INTERFACE SYSTEM Refer [...] *corresponds to therapeutic range for unfractionated heparin 12/30/2005 1:00 PM CDT Romie Laughlin MD HEMATOLOGY ORDERABLES Final Result Performing Organization Address [facility] Phone Number INTERFACE SYSTEM Refer to clinic/hospital department * VANCOMYCIN LEVEL TROUGH (12/30/2005 12:55 PM CDT) VANCOMYCIN, TROUGH 6.5 5.0 - 15.0 ug/mL INTERFACE SYSTEM Comment: Vancomycin Trough Toxic Level= >15.0 ug/mL 12/30/2005 12:5 5 PM CDT Romie Laughlin MD CHEMISTRY ORDERABLES Final R esult Performing Organization Address [facility] Phone Number INTERFACE SYSTEM Refer [...] *corresponds to therapeutic range for unfractionated heparin Verified by repeat analysis. Results called to Delfina at 12/30/2005 11:43 AM and read back verified. 12/30/2005 10:1 5 AM CDT Romie Laughlin MD HEMATOLOGY ORDERABLES Final Result Performing Organization Address [facility] Phone Number INTERFACE SYSTEM Refer to clinic/hospital department * (ABNORMAL) POC GLUCOSE (12/30/2005 6:28 AM CDT) GLUCOSE POC 127(H) 65 - 109 mg/dL INTERFACE SYSTEM 12/30/2005 6:28 AM CDT us Wicho Gomez MD POINT OF CARE TESTING Final R esult Performing Organization Address [facility] Phone Number INTERFACE SYSTEM Refer [...] patients with mechanical heart valves or post [place]. Pediatric (12 years and under): 1.5 - [...] *corresponds to therapeutic range for unfractionated heparin 12/30/2005 2:40 AM CDT us Romie Laughlin [...] HEMATOLOGY ORDERABLES Final Result Performing Organization Address [place]/[facility] de Phone Number INTERFACE SYSTEM Refer to [...] HEMATOLOGY ORDERABLES Final Result Performing Organization Address [place]/[facility]/ZIP Co de Phone Number INTERFACE SYSTEM Refer to clinic/hospital department * (ABNORMAL) PHOSPHORUS (12/30/2005 2:40 AM CDT) PHOSPHORUS 5.4(H) 2.5 - 4.5 mg/dL INTERFACE SYSTEM 12/30/2005 2:40 AM CDT Romie Laughlin MD CHEMISTRY ORDERABLES Final R esult Performing Organization Address [facility] Phone Number INTERFACE SYSTEM Refer to clinic/hospital department * MAGNESIUM LEVEL (12/30/2005 2:40 AM CDT) MAGNESIUM 2.1 1.5 - 2.5 mg/dL INTERFACE SYSTEM 12/30/2005 2:40 AM CDT Romie Laughlin MD CHEMISTRY ORDERABLES Final R esult Performing Organization Address [facility] Phone Number INTERFACE SYSTEM Refer to clinic/hospital department * CALCIUM IONIZED (12/30/2005 2:40 AM CDT) CALCIUM IONIZED 4.84 4.76 - 5.16 mg/dL INTERFACE SYSTEM 12/30/2005 2:40 AM CDT Romie Laughlin MD CHEMISTRY ORDERABLES Final R esult Performing Organization Address [facility] Phone Number INTERFACE SYSTEM Refer [...] R esult Performing Organization Address [facility] Phone Number INTERFACE SYSTEM Refer to clinic/hospital department * POC GLUCOSE (12/30/2005 12:03 AM CDT) GLUCOSE POC 81 65 - 109 mg/dL INTERFACE SYSTEM 12/30/2005 12:0 3 AM CDT Wicho Gomez MD POINT OF CARE TESTING Final R esult Performing Organization Address [facility] Phone Number INTERFACE SYSTEM Refer [...] *corresponds to therapeutic range for unfractionated heparin 12/29/2005 6:40 PM CDT Romie Laughlin MD HEMATOLOGY ORDERABLES Final Result Performing Organization Address [facility] Phone Number INTERFACE SYSTEM Refer to clinic/hospital department * POC GLUCOSE (12/29/2005 6:30 PM CDT) GLUCOSE POC 92 65 - 109 mg/dL INTERFACE SYSTEM 12/29/2005 6:30 PM CDT Wicho Gomez MD POINT OF CARE TESTING Final R esult Performing Organization Address [facility] Phone Number INTERFACE SYSTEM Refer to clinic/hospital department * PTT (12/29/2005 4:22 PM CDT) PTT 31.0 24.4 - 36.4 Seconds INTERFACE SYSTEM Comment: PTT Therapeutic Range: Heparin Level PTT (seconds) <0.10 units/mL <53 0.10 - 0.30 units/mL 53 - 67 0.30 - 0.70 units/mL* 67 - 95* 0.70 - 1.00 units/mL 95 - 116 *corresponds to therapeutic range for unfractionated heparin 12/29/2005 4:22 PM CDT Romie Laughlin MD HEMATOLOGY ORDERABLES Final Result Performing Organization Address [facility] Phone Number INTERFACE SYSTEM Refer [...] *corresponds to therapeutic range for unfractionated heparin Verified by repeat analysis. Results called to Sarika at 12/29/2005 2:52 PM and read back verified. 12/29/2005 1:00 PM CDT Romie Laughlin MD HEMATOLOGY ORDERABLES Final Result Performing Organization Address [facility] Phone Number INTERFACE SYSTEM Refer [...] *corresponds to therapeutic range for unfractionated heparin 12/29/2005 3:40 AM CDT Harshad Heller MD HEMATOLOGY ORDERABLES Final Res ult Performing Organization Address [facility] Phone Number INTERFACE SYSTEM Refer [...] Res ult Performing Organization Address [facility] Phone Number INTERFACE SYSTEM Refer to clinic/hospital department * (ABNORMAL) DIGOXIN LEVEL (12/29/2005 3:40 AM CDT) DIGOXIN LEVEL 0.3(L) 0.8 - 2.0 ng/mL INTERFACE SYSTEM Comment:Digoxin Toxic Level = >2.0 ng/mL 12/29/2005 3:40 AM CDT Harshad Heller MD CHEMISTRY ORDERABLES Final Resu lt Performing Organization Address [facility] Phone Number INTERFACE SYSTEM Refer to clinic/hospital department * PHOSPHORUS (12/29/2005 3:40 AM CDT) PHOSPHORUS 3.9 2.5 - 4.5 mg/dL INTERFACE SYSTEM 12/29/2005 3:40 AM CDT Harshad Heller MD CHEMISTRY ORDERABLES Final Resu lt Performing Organization Address [facility] Phone Number INTERFACE SYSTEM Refer to clinic/hospital department * MAGNESIUM LEVEL (12/29/2005 3:40 AM CDT) MAGNESIUM 1.7 1.5 - 2.5 mg/dL INTERFACE SYSTEM 12/29/2005 3:40 AM CDT Harshad Heller MD CHEMISTRY ORDERABLES Final Resu lt Performing Organization Address [facility] Phone Number INTERFACE SYSTEM Refer to clinic/hospital department * (ABNORMAL) CALCIUM IONIZED (12/29/2005 3:40 AM CDT) CALCIUM IONIZED 4.56(L) 4.76 - 5.16 mg/dL INTERFACE SYSTEM 12/29/2005 3:40 AM CDT Harshad Heller MD CHEMISTRY ORDERABLES Final Resu lt Performing Organization Address [facility]/ZIP Co de Phone Number INTERFACE SYSTEM [...] mmol/L INTERFACE SYSTEM 12/29/2005 3:40 AM CDT us Harshad Heller MD CHEMISTRY ORDERABLES Final Resu lt Performing Organization Address [facility] de Phone Number INTERFACE SYSTEM Refer to clinic/hospital department * POC GLUCOSE (12/29/2005 12:47 AM CDT) COMMENT, GLU POC Notified RN INTERFACE SYSTEM GLUCOSE POC 103 65 - 109 mg/dL INTERFACE SYSTEM 12/29/2005 12:4 7 AM CDT us Wicho Gomez MD POINT OF CARE TESTING Final R esult Performing Organization Address [facility] de Phone Number INTERFACE SYSTEM Refer to [...] patients with mechanical heart valves or post [place]. Pediatric (12 years and under): 1.5 - [...] *corresponds to therapeutic range for unfractionated heparin Verified by repeat analysis. Results called to Chace at 12/28/2005 11:14 PM and read back verified. 12/28/2005 10:3 0 PM CDT Wicho Gomez MD HEMATOLOGY ORDERABLES Final R esult Performing Organization Address [facility] de Phone Number INTERFACE SYSTEM Refer to clinic/hospital department * (ABNORMAL) POC GLUCOSE (12/28/2005 7:14 PM CDT) COMMENT, GLU POC Notified RN INTERFACE SYSTEM GLUCOSE POC 112(H) 65 - 109 mg/dL INTERFACE SYSTEM 12/28/2005 7:14 PM CDT Wicho Gomez MD POINT OF CARE TESTING Final R esult Performing Organization Address [facility] de Phone Number INTERFACE SYSTEM Refer to clinic/hospital department * PTT (12/28/2005 2:45 PM CDT) PTT 28.5 24.4 - 36.4 Seconds INTERFACE SYSTEM Comment: PTT Therapeutic Range: Heparin Level PTT (seconds) <0.10 units/mL <53 0.10 - 0.30 units/mL 53 - 67 0.30 - 0.70 units/mL* 67 - 95* 0.70 - 1.00 units/mL 95 - 116 *corresponds to therapeutic range for unfractionated heparin 12/28/2005 2:45 PM CDT Romie Laughlin MD HEMATOLOGY ORDERABLES Final Result Performing Organization Address City/[facility]/ZIP Co de Phone Number INTERFACE SYSTEM Refer to clinic/hospital department * (ABNORMAL) POC GLUCOSE (12/28/2005 12:56 PM CDT) Pathologist [facility] GLUCOSE POC 159(H) 65 - 109 mg/dL INTERFACE SYSTEM 12/28/2005 12:5 6 PM CDT us Wicho Gomez MD POINT OF CARE TESTING Final R esult Performing Organization Address [facility] de Phone Number INTERFACE SYSTEM Refer to clinic/hospital department * (ABNORMAL) PTT (12/28/2005 7:00 AM CDT) Pathologist [facility] PTT 95.9(AA) 24.4 - 36.4 Seconds INTERFACE SYSTEM Comment: PTT Therapeutic Range: Heparin Level PTT (seconds) <0.10 units/mL <53 0.10 - 0.30 units/mL 53 - 67 0.30 - 0.70 units/mL* 67 - 95* 0.70 - 1.00 units/mL 95 - 116 *corresponds to therapeutic range for unfractionated heparin Attempt made to phone results. PTT COMMENT Results called INTERFACE SYSTEM Comment:Results called to Marshall rry at 12/28/2005 12:11 PM and read back verified. 12/28/2005 7:00 AM CDT us Romie Laughlin MD HEMATOLOGY ORDERABLES Final Result Performing Organization Address [facility] Phone Number INTERFACE SYSTEM Refer to clinic/hospital department * (ABNORMAL) CBC WITH DIFFERENTIAL (12/28/2005 4:00 AM CDT) NEUTROPHIL ABSOLUTE 3.82 1.90 - 7.00 K/uL [...] Slight INTERFACE SYSTEM 12/28/2005 4:00 AM CDT Harshad Heller MD HEMATOLOGY [...] fL INTERFACE SYSTEM 12/28/2005 4:00 AM CDT Harshad Heller MD HEMATOLOGY ORDERABLES Final Res ult INTERFACE SYSTEM Refer to clinic/hospital department * PHOSPHORUS (12/28/2005 4:00 AM CDT) PHOSPHORUS 3.9 2.5 - 4.5 mg/dL INTERFACE SYSTEM 12/28/2005 4:00 AM CDT us Harshad Heller MD CHEMISTRY ORDERABLES Final Resu lt Performing Organization Address [facility] Phone Number INTERFACE SYSTEM Refer to clinic/hospital department * MAGNESIUM LEVEL (12/28/2005 4:00 AM CDT) MAGNESIUM 1.9 1.5 - 2.5 mg/dL INTERFACE SYSTEM 12/28/2005 4:00 AM CDT Harshad Heller MD CHEMISTRY ORDERABLES Final Resu lt Performing Organization Address [facility] Phone Number INTERFACE SYSTEM Refer to clinic/hospital department * (ABNORMAL) CALCIUM IONIZED (12/28/2005 4:00 AM CDT) CALCIUM IONIZED 4.56(L) 4.76 - 5.16 mg/dL INTERFACE SYSTEM 12/28/2005 4:00 AM CDT us Hasrhad Heller MD CHEMISTRY ORDERABLES Final Resu lt Performing Organization Address [facility] Phone Number INTERFACE SYSTEM Refer [...] mmol/L INTERFACE SYSTEM 12/28/2005 4:00 AM CDT us Harshad Heller MD CHEMISTRY ORDERABLES Final Resu lt Performing Organization Address [facility] Phone Number INTERFACE SYSTEM Refer [...] *corresponds to therapeutic range for unfractionated heparin 12/28/2005 2:00 AM CDT us Romie Laughlin [...] patients with mechanical heart valves or post [place]. Pediatric (12 years and under): 1.5 - [...] range for unfractionated heparin Results called to Regine at 12/27/2005 8:28 PM and read back verified. 12/27/2005 7:31 PM CDT Wicho Gomez MD HEMATOLOGY ORDERABLES Final R esult Performing Organization Address [facility] Phone Number INTERFACE SYSTEM Refer to clinic/hospital department * (ABNORMAL) POC GLUCOSE (12/27/2005 6:34 PM CDT) GLUCOSE POC 125(H) 65 - 109 mg/dL INTERFACE SYSTEM 12/27/2005 6:34 PM CDT Wicho Gomez MD POINT OF CARE TESTING Final R esult Performing Organization Address [facility] Phone Number INTERFACE SYSTEM Refer [...] 28 INTERFACE SYSTEM 12/27/2005 5:12 PM CDT Romie Laughlin MD ABG ORDERABLES Final Result Performing Organization Address [facility] Phone Number INTERFACE SYSTEM Refer [...] *corresponds to therapeutic range for unfractionated heparin 12/27/2005 1:21 PM CDT us Harshad Heller MD HEMATOLOGY ORDERABLES Final Res ult Performing Organization Address [facility] Phone Number INTERFACE SYSTEM Refer to clinic/hospital department * (ABNORMAL) POC GLUCOSE (12/27/2005 11:26 AM CDT) Pathologist [facility] GLUCOSE POC 171(H) 65 - 109 mg/dL INTERFACE SYSTEM 12/27/2005 11:2 6 AM CDT us Wicho Gomez MD POINT OF CARE TESTING Final R esult Performing Organization Address [facility] Phone Number INTERFACE SYSTEM Refer [...] *corresponds to therapeutic range for unfractionated heparin 12/27/2005 6:58 AM CDT us Romie Laughlin MD HEMATOLOGY ORDERABLES Final Result Performing Organization Address City/[facility] Phone Number INTERFACE SYSTEM Refer [...] ABG ORDERABLES Final Result Performing Organization Address City/State/[facility] Co de Phone Number INTERFACE [...] fL INTERFACE SYSTEM 12/27/2005 4:06 AM CDT Romie Laughlin MD HEMATOLOGY ORDERABLES Final Result INTERFACE SYSTEM Refer to clinic/hospital department * (ABNORMAL) TSH (12/27/2005 4:06 AM CDT) TSH 6.34(H) 0.27 - 4.20 uU/mL INTERFACE SYSTEM 12/27/2005 4:06 AM CDT Romie Laughlin MD CHEMISTRY ORDERABLES Final R esult Performing Organization Address [facility] de Phone Number INTERFACE SYSTEM Refer to [...] patients with mechanical heart valves or post [place]. Pediatric (12 years and under): 1.5 - [...] *corresponds to therapeutic range for unfractionated heparin 12/27/2005 4:06 AM CDT Romie Laughlin MD HEMATOLOGY ORDERABLES Final Result Performing Organization Address [facility] de Phone Number INTERFACE SYSTEM Refer to clinic/hospital department * CALCIUM IONIZED (12/27/2005 4:06 AM CDT) CALCIUM IONIZED 4.96 4.76 - 5.16 mg/dL INTERFACE SYSTEM 12/27/2005 4:06 AM CDT Romie Laughlin MD CHEMISTRY ORDERABLES Final R esult Performing Organization Address City/[facility] Phone Number INTERFACE SYSTEM Refer [...] HEMATOLOGY ORDERABLES Final Result Performing Organization Address [facility] Phone Number INTERFACE SYSTEM Refer to clinic/hospital department * T4 FREE (12/27/2005 4:00 AM CDT) T4 FREE 1.1 0.9 - 1.7 ng/dL INTERFACE SYSTEM 12/27/2005 4:00 AM CDT Romie Laughlin MD CHEMISTRY ORDERABLES Final R esult Performing Organization Address [facility] Phone Number INTERFACE SYSTEM Refer to clinic/hospital department * PREALBUMIN (12/27/2005 4:00 AM CDT) PREALBUMIN 21 20 - 40 mg/dL INTERFACE SYSTEM 12/27/2005 4:00 AM CDT Romie Laughlin MD CHEMISTRY ORDERABLES Final R esult Performing Organization Address City/[facility] Phone Number INTERFACE SYSTEM Refer to clinic/hospital department * PHOSPHORUS (12/27/2005 4:00 AM CDT) PHOSPHORUS 4.0 2.5 - 4.5 mg/dL INTERFACE SYSTEM 12/27/2005 4:00 AM CDT Romie Laughlin MD CHEMISTRY ORDERABLES Final R esult Performing Organization Address [facility] Phone Number INTERFACE SYSTEM Refer to clinic/hospital department * (ABNORMAL) MAGNESIUM LEVEL (12/27/2005 4:00 AM CDT) MAGNESIUM 1.4(L) 1.5 - 2.5 mg/dL INTERFACE SYSTEM 12/27/2005 4:00 AM CDT Romie Laughlin MD CHEMISTRY ORDERABLES Final R esult Performing Organization Address [facility] Phone Number INTERFACE SYSTEM Refer to clinic/hospital department * (ABNORMAL) COMPREHENSIVE METABOLIC PANEL (12/27/2005 4:00 AM CDT) GLUCOSE 124(H) 65 - 99 mg/dL [...] R esult Performing Organization Address [facility] Phone Number INTERFACE SYSTEM Refer to clinic/hospital department * (ABNORMAL) PTT (12/27/2005 1:00 AM CDT) PTT 85.7(H) 24.4 - 36.4 Seconds INTERFACE SYSTEM Comment: PTT Therapeutic Range: Heparin Level PTT (seconds) <0.10 units/mL <53 0.10 - 0.30 units/mL 53 - 67 0.30 - 0.70 units/mL* 67 - 95* 0.70 - 1.00 units/mL 95 - 116 *corresponds to therapeutic range for unfractionated heparin 12/27/2005 1:00 AM CDT Romie Laughlin MD HEMATOLOGY ORDERABLES Final Result Performing Organization Address [facility] Phone Number INTERFACE SYSTEM Refer to clinic/hospital department * (ABNORMAL) POC GLUCOSE (12/27/2005 12:35 AM CDT) GLUCOSE POC 140(H) 65 - 109 mg/dL INTERFACE SYSTEM 12/27/2005 12:3 5 AM CDT Wicho Gomez MD POINT OF CARE TESTING Final R esult Performing Organization Address [facility] Phone Number INTERFACE SYSTEM Refer [...] *corresponds to therapeutic range for unfractionated heparin 12/26/2005 9:10 PM CDT us Romie Laughlin MD HEMATOLOGY ORDERABLES Final Result Performing Organization Address City/[facility] Phone Number INTERFACE SYSTEM Refer to clinic/hospital department * POC GLUCOSE (12/26/2005 6:46 PM CDT) GLUCOSE POC 92 65 - 109 mg/dL INTERFACE SYSTEM 12/26/2005 6:46 PM CDT us Wicho Gomez MD POINT OF CARE TESTING Final R esult Performing Organization Address [facility] Phone Number INTERFACE SYSTEM Refer [...] *corresponds to therapeutic range for unfractionated heparin 12/26/2005 1:45 PM CDT us Romie Laughlin MD HEMATOLOGY ORDERABLES Final Result Performing Organization Address [facility] Phone Number INTERFACE SYSTEM Refer to clinic/hospital department * (ABNORMAL) POC GLUCOSE (12/26/2005 11:56 AM CDT) GLUCOSE POC 120(H) 65 - 109 mg/dL INTERFACE SYSTEM 12/26/2005 11:5 6 AM CDT us Wicho Gomez MD POINT OF CARE TESTING Final R esult Performing Organization Address City/[facility]/ZIP Co de Phone Number INTERFACE SYSTEM [...] *corresponds to therapeutic range for unfractionated heparin Persistent abnormal result 12/26/2005 6:40 AM CDT us Romie Laughlin MD HEMATOLOGY ORDERABLES Final Result Performing Organization Address [facility] Phone Number INTERFACE SYSTEM Refer to clinic/hospital department * (ABNORMAL) POC GLUCOSE (12/26/2005 5:50 AM CDT) Pathologist [facility] GLUCOSE POC 126(H) 65 - 109 mg/dL INTERFACE SYSTEM 12/26/2005 5:50 AM CDT us Wicho Gomez MD POINT OF CARE TESTING Final R esult Performing Organization Address [facility] Phone Number INTERFACE SYSTEM Refer to clinic/hospital department * (ABNORMAL) CBC WITH DIFFERENTIAL (12/26/2005 4:00 AM CDT) Pathologist [facility] NEUTROPHIL ABSOLUTE 3.79 1.90 - 7.00 K/uL [...] HEMATOLOGY ORDERABLES Final Result Performing Organization Address City/[facility] Co de Phone Number [...] R esult Performing Organization Address [facility] Phone Number INTERFACE SYSTEM Refer to clinic/hospital department * PHOSPHORUS (12/26/2005 4:00 AM CDT) PHOSPHORUS 3.7 2.5 - 4.5 mg/dL INTERFACE SYSTEM 12/26/2005 4:00 AM CDT Romie Laughlin MD CHEMISTRY ORDERABLES Final R esult Performing Organization Address [facility] Phone Number INTERFACE SYSTEM Refer to clinic/hospital department * MAGNESIUM LEVEL (12/26/2005 4:00 AM CDT) MAGNESIUM 1.7 1.5 - 2.5 mg/dL INTERFACE SYSTEM 12/26/2005 4:00 AM CDT Romie Laughlin MD CHEMISTRY ORDERABLES Final R esult Performing Organization Address [facility] Phone Number INTERFACE SYSTEM Refer [...] R esult Performing Organization Address [facility] Phone Number INTERFACE SYSTEM Refer [...] *corresponds to therapeutic range for unfractionated heparin 12/26/2005 1:35 AM CDT Romie Laughlin MD HEMATOLOGY ORDERABLES Final Result Performing Organization Address [facility] Phone Number INTERFACE SYSTEM Refer to clinic/hospital department * (ABNORMAL) POC GLUCOSE (12/26/2005 12:19 AM CDT) GLUCOSE POC 140(H) 65 - 109 mg/dL INTERFACE SYSTEM 12/26/2005 12:1 9 AM CDT Wicho Gomez MD POINT OF CARE TESTING Final R esult Performing Organization Address [facility] de Phone Number INTERFACE SYSTEM Refer to clinic/hospital department * (ABNORMAL) POC GLUCOSE (12/25/2005 6:05 PM CDT) GLUCOSE POC 150(H) 65 - 109 mg/dL INTERFACE SYSTEM 12/25/2005 6:05 PM CDT Wicho Gomez MD POINT OF CARE TESTING Final R esult Performing Organization Address [facility] de Phone Number INTERFACE SYSTEM Refer to clinic/hospital department * PTT (12/25/2005 1:00 PM CDT) PTT 28.2 24.4 - 36.4 Seconds INTERFACE SYSTEM Comment: PTT Therapeutic Range: Heparin Level PTT (seconds) <0.10 units/mL <53 0.10 - 0.30 units/mL 53 - 67 0.30 - 0.70 units/mL* 67 - 95* 0.70 - 1.00 units/mL 95 - 116 *corresponds to therapeutic range for unfractionated heparin 12/25/2005 1:00 PM CDT Romie Laughlin MD HEMATOLOGY ORDERABLES Final Result Performing Organization Address [facility] Phone Number INTERFACE SYSTEM Refer to clinic/hospital department * (ABNORMAL) POC GLUCOSE (12/25/2005 6:13 AM CDT) GLUCOSE POC 166(H) 65 - 109 mg/dL INTERFACE SYSTEM 12/25/2005 6:13 AM CDT Wicho Gomez MD POINT OF CARE TESTING Final R esult Performing Organization Address [facility] Phone Number INTERFACE SYSTEM Refer [...] *corresponds to therapeutic range for unfractionated heparin 12/25/2005 6:05 AM CDT Romie Laughlin MD HEMATOLOGY ORDERABLES Final Result Performing Organization Address [facility] Phone Number INTERFACE SYSTEM Refer [...] HEMATOLOGY ORDERABLES Final Result Performing Organization Address City/[facility]/ZIP Co de Phone Number INTERFACE SYSTEM Refer to clinic/hospital department * PHOSPHORUS (12/25/2005 3:10 AM CDT) PHOSPHORUS 3.3 2.5 - 4.5 mg/dL INTERFACE SYSTEM 12/25/2005 3:10 AM CDT Romie Laughlin MD CHEMISTRY ORDERABLES [facility] Performing Organization Address [facility] Phone Number INTERFACE SYSTEM Refer to clinic/hospital department * MAGNESIUM LEVEL (12/25/2005 3:10 AM CDT) MAGNESIUM 1.7 1.5 - 2.5 mg/dL INTERFACE SYSTEM 12/25/2005 3:10 AM CDT Romie Laughlin MD CHEMISTRY ORDERABLES Final R [facility] Performing Organization Address [facility] Phone Number INTERFACE SYSTEM Refer to clinic/hospital department * CALCIUM IONIZED (12/25/2005 3:10 AM CDT) CALCIUM IONIZED 4.76 4.76 - 5.16 mg/dL INTERFACE SYSTEM 12/25/2005 3:10 AM CDT Romie Laughlin MD CHEMISTRY ORDERABLES Final R [facility] Performing Organization Address [facility] Number INTERFACE SYSTEM Refer to clinic/hospital [...] R esult Performing Organization Address [facility] Phone Number INTERFACE SYSTEM Refer [...] *corresponds to therapeutic range for unfractionated heparin 12/25/2005 1:00 AM CDT us Romie Laughlin MD HEMATOLOGY ORDERABLES Final Result Performing Organization Address [facility] Phone Number INTERFACE SYSTEM Refer to clinic/hospital department * POC GLUCOSE (12/24/2005 11:33 PM CDT) GLUCOSE POC 87 65 - 109 mg/dL INTERFACE SYSTEM 12/24/2005 11:3 3 PM CDT Wicho Gomez MD POINT OF CARE TESTING Final R esult Performing Organization Address [facility] Phone Number INTERFACE SYSTEM Refer to clinic/hospital department * (ABNORMAL) POC GLUCOSE (12/24/2005 6:32 PM CDT) GLUCOSE POC 154(H) 65 - 109 mg/dL INTERFACE SYSTEM 12/24/2005 6:32 PM CDT us Wicho Gomez MD POINT OF CARE TESTING Final R esult Performing Organization Address [facility] Phone Number INTERFACE SYSTEM Refer [...] *corresponds to therapeutic range for unfractionated heparin Verified by repeat analysis. Results called to Neda at 12/24/2005 7:27 PM and read back verified. 12/24/2005 6:30 PM CDT Romie Laughlin MD HEMATOLOGY ORDERABLES Final Result Performing Organization Address [facility] Phone Number INTERFACE SYSTEM Refer to clinic/hospital department * EOSINOPHIL SMEAR (12/24/2005 1:13 PM CDT) EOSINOPHIL SMEAR SOURCE Urine INTERFACE SYSTEM EOSINOPHIL SMEAR No Eos Seen No Eos Seen INTERFACE SYSTEM 12/24/2005 1:13 PM CDT Romie Laughlin MD BODY FLUIDS AND STOOLS COM F inal Result Performing Organization Address [facility] Phone Number INTERFACE SYSTEM Refer to clinic/hospital department * OSMOLALITY, URINE (12/24/2005 1:13 PM CDT) OSMOLALITY, URINE 519 50 - 1200 mOsml/kg INTERFACE SYSTEM 12/24/2005 1:13 PM CDT Romie Laughlin MD URINE ORDERABLES Final Resul t Performing Organization Address [facility] Phone Number INTERFACE SYSTEM Refer to clinic/hospital department * CREATININE, RANDOM URINE (12/24/2005 1:13 PM CDT) Creatinine, Urine 67.8 36.0 - 130.0 mg/dL INTERFACE SYSTEM Comment:Reference Range vari es with fluid intake and diet. 12/24/2005 1:13 PM CDT Romie Laughlin MD URINE ORDERABLES Final Resul t Performing Organization Address [facility] Phone Number INTERFACE SYSTEM Refer [...] CAST 5(H) 0 - 2 /LPF INTERF CIDNY SYSTEM GRANULAR CAST 7(H) <=0 /LPF INTERF CINDY SYSTEM AMORPHOUS CRYSTAL Rare /HPF INTERFACE SYSTEM 12/24/2005 1:13 PM CDT us Romie Laughlin MD URINE ORDERABLES Final Resul t INTERFACE SYSTEM Refer to clinic/hospital department * POC GLUCOSE (12/24/2005 12:43 PM CDT) GLUCOSE POC 103 65 - 109 mg/dL INTERFACE SYSTEM 12/24/2005 12:4 3 PM CDT us Wicho Gomez MD [...] *corresponds to therapeutic range for unfractionated heparin 12/24/2005 12:3 0 PM CDT Romie Laughlin MD HEMATOLOGY ORDERABLES Final Result Performing Organization Address [facility] Phone Number INTERFACE SYSTEM Refer to clinic/hospital department * (ABNORMAL) POC GLUCOSE (12/24/2005 6:05 AM CDT) GLUCOSE POC 139(H) 65 - 109 mg/dL INTERFACE SYSTEM 12/24/2005 6:05 AM CDT Wicho Gomez MD POINT OF CARE TESTING Final R esult Performing Organization Address [facility] Phone Number INTERFACE SYSTEM Refer [...] *corresponds to therapeutic range for unfractionated heparin 12/24/2005 6:00 AM CDT Romie Laughlin MD HEMATOLOGY ORDERABLES Final Result Performing Organization Address [facility] Phone Number INTERFACE SYSTEM Refer [...] R esult Performing Organization Address [facility] Phone Number INTERFACE SYSTEM Refer to clinic/hospital department * (ABNORMAL) CALCIUM IONIZED (12/24/2005 1:34 AM CDT) CALCIUM IONIZED 4.68(L) 4.76 - 5.16 mg/dL INTERFACE SYSTEM 12/24/2005 1:34 AM CDT Romie Laughlin MD CHEMISTRY ORDERABLES Final R esult Performing Organization Address [facility] Number INTERFACE SYSTEM Refer to clinic/hospital department * MAGNESIUM LEVEL (12/24/2005 1:34 AM CDT) MAGNESIUM 1.8 1.5 - 2.5 mg/dL INTERFACE SYSTEM 12/24/2005 1:34 AM CDT Romie Laughlin MD CHEMISTRY ORDERABLES Final R esult Performing Organization Address [facility] [...] R esult Performing Organization Address [facility] Phone Number INTERFACE SYSTEM Refer to clinic/hospital department * POC GLUCOSE (12/23/2005 11:24 PM CDT) GLUCOSE POC 80 65 - 109 mg/dL INTERFACE SYSTEM 12/23/2005 11:2 4 PM CDT us Wicho Gomez MD POINT OF CARE TESTING Final [facility] Performing Organization Address [facility] Phone Number INTERFACE SYSTEM Refer to clinic/hospital department * (ABNORMAL) PTT (12/23/2005 11:00 PM CDT) PTT 104.4(AA) 24.4 - 36.4 Seconds INTERFACE SYSTEM Comment: PTT Therapeutic Range: Heparin Level PTT (seconds) <0.10 units/mL <53 0.10 - 0.30 units/mL 53 - 67 0.30 - 0.70 units/mL* 67 - 95* 0.70 - 1.00 units/mL 95 - 116 *corresponds to therapeutic range for unfractionated heparin Verified by repeat analysis. Results called to neda at 12/23/2005 11:50 PM and read back verified. 12/23/2005 11:0 0 PM CDT us Wicho Gomez MD HEMATOLOGY ORDERABLES Final RUST Performing Organization Address [facility] Phone Number INTERFACE SYSTEM Refer to clinic/hospital department * (ABNORMAL) POC GLUCOSE (12/23/2005 5:18 PM CDT) GLUCOSE POC 149(H) 65 - 109 mg/dL INTERFACE SYSTEM 12/23/2005 5:18 PM CDT us Wicho Gomez MD POINT OF CARE TESTING Final R [facility] Performing Organization Address [facility] Phone Number INTERFACE SYSTEM Refer [...] *corresponds to therapeutic range for unfractionated heparin 12/23/2005 5:00 PM CDT us Romie Laughlin MD HEMATOLOGY ORDERABLES Final Result Performing Organization Address [facility] de Phone Number INTERFACE SYSTEM Refer to clinic/hospital department * POC GLUCOSE (12/23/2005 1:39 PM CDT) GLUCOSE POC 75 65 - 109 mg/dL INTERFACE SYSTEM 12/23/2005 1:39 PM CDT us Wicho Gomez MD POINT OF CARE TESTING Final R esult Performing Organization Address [facility] de Phone Number INTERFACE SYSTEM Refer to [...] patients with mechanical heart valves or post [place]. Pediatric (12 years and under): 1.5 - [...] range for unfractionated heparin Results called to Delfina at 12/23/2005 8:58 AM and read back verified. 12/23/2005 8:00 AM CDT Wicho Gomez MD HEMATOLOGY ORDERABLES Final R esult Performing Organization Address [facility] Phone Number INTERFACE SYSTEM Refer to clinic/hospital department * (ABNORMAL) POC GLUCOSE (12/23/2005 5:56 AM CDT) [facility] GLUCOSE POC 208(H) 65 - 109 mg/dL INTERFACE SYSTEM 12/23/2005 5:56 AM CDT Wicho Gomez MD POINT OF CARE TESTING Final R [facility] Performing Organization Address [facility] Phone Number INTERFACE SYSTEM Refer to clinic/hospital department * (ABNORMAL) CBC WITH DIFFERENTIAL (12/23/2005 3:00 AM CDT) [facility] NEUTROPHIL ABSOLUTE 5.10 1.90 - 7.00 K/uL [...] R esult Performing Organization Address [facility] Phone Number INTERFACE SYSTEM Refer [...] R esult Performing Organization Address [facility] Phone Number INTERFACE SYSTEM Refer to clinic/hospital department * PHOSPHORUS (12/23/2005 3:00 AM CDT) PHOSPHORUS 2.9 2.5 - 4.5 mg/dL INTERFACE SYSTEM 12/23/2005 3:00 AM CDT Wicho Gomez MD CHEMISTRY ORDERABLES Final Re sult Performing Organization Address [facility] Phone Number INTERFACE SYSTEM Refer to clinic/hospital department * MAGNESIUM LEVEL (12/23/2005 3:00 AM CDT) MAGNESIUM 1.6 1.5 - 2.5 mg/dL INTERFACE SYSTEM 12/23/2005 3:00 AM CDT us Wicho Gomez MD CHEMISTRY ORDERABLES Final Re sult Performing Organization Address [facility] Phone Number INTERFACE SYSTEM Refer to clinic/hospital department * (ABNORMAL) CALCIUM IONIZED (12/23/2005 3:00 AM CDT) CALCIUM IONIZED 4.44(L) 4.76 - 5.16 mg/dL INTERFACE SYSTEM 12/23/2005 3:00 AM CDT Wicho Gomez MD CHEMISTRY ORDERABLES Final Re sult Performing Organization Address [facility] Phone Number INTERFACE SYSTEM Refer [...] mmol/L INTERFACE SYSTEM 12/23/2005 3:00 AM CDT Wicho Gomez MD CHEMISTRY ORDERABLES Final Re sult Performing Organization Address [facility] Phone Number INTERFACE SYSTEM Refer [...] patients with mechanical heart valves or post [place]. Pediatric (12 years and under): 1.5 - [...] *corresponds to therapeutic range for unfractionated heparin 12/23/2005 2:00 AM CDT us Wicho Gomez MD HEMATOLOGY ORDERABLES Final R [facility] Performing Organization Address [facility] de Phone Number INTERFACE SYSTEM Refer to clinic/hospital department * (ABNORMAL) POC GLUCOSE (12/23/2005 12:18 AM CDT) GLUCOSE POC 141(H) 65 - 109 mg/dL INTERFACE SYSTEM 12/23/2005 12:1 8 AM CDT us Wicho Gomez MD POINT OF CARE TESTING Final R [facility] Performing Organization Address [facility] de Phone Number INTERFACE SYSTEM Refer to [...] patients with mechanical heart valves or post [place]. Pediatric (12 years and under): 1.5 - [...] range for unfractionated heparin Results called to judy at 12/22/2005 9:03 PM and read back verified. 12/22/2005 8:15 PM CDT us Romie Laughlin MD HEMATOLOGY ORDERABLES Final Result INTERFACE SYSTEM Refer to clinic/hospital department * (ABNORMAL) POC GLUCOSE (12/22/2005 5:59 PM CDT) COMMENT, GLU POC Notified RN INTERFACE SYSTEM GLUCOSE POC 181(H) 65 - 109 mg/dL INTERFACE SYSTEM 12/22/2005 5:59 PM CDT Wicho Gomez MD POINT OF [...] patients with mechanical heart valves or post [place]. Pediatric (12 years and under): 1.5 - [...] *corresponds to therapeutic range for unfractionated heparin 12/22/2005 2:35 PM CDT Wicho Gomez MD HEMATOLOGY ORDERABLES Final R esult Performing Organization Address [place]/[facility] Co de Phone Number INTERFACE SYSTEM Refer to clinic/hospital department * (ABNORMAL) POC GLUCOSE (12/22/2005 12:59 PM CDT) COMMENT, GLU POC Notified RN INTERFACE SYSTEM GLUCOSE POC 135(H) 65 - 109 mg/dL INTERFACE SYSTEM 12/22/2005 12:5 9 PM CDT Wicho Gomez MD POINT OF CARE TESTING Final R esult Performing Organization Address [facility] de Phone Number INTERFACE SYSTEM Refer to [...] patients with mechanical heart valves or post [place]. Pediatric (12 years and under): 1.5 - [...] *corresponds to therapeutic range for unfractionated heparin 12/22/2005 8:04 AM CDT Wicho Gomez MD HEMATOLOGY ORDERABLES Final R esult Performing Organization Address [facility] de Phone Number INTERFACE SYSTEM Refer to clinic/hospital department * (ABNORMAL) POC GLUCOSE (12/22/2005 5:32 AM CDT) Pathologist [facility] GLUCOSE POC 166(H) 65 - 109 mg/dL INTERFACE SYSTEM 12/22/2005 5:32 AM CDT Wicho Gomez MD POINT OF CARE TESTING Final R [facility] Performing Organization Address [facility] Phone Number INTERFACE SYSTEM Refer to clinic/hospital department * (ABNORMAL) CBC WITH DIFFERENTIAL (12/22/2005 3:20 AM CDT) Pathologist [facility] NEUTROPHIL ABSOLUTE 5.33 1.90 - 7.00 K/uL [...] HEMATOLOGY ORDERABLES Final Result Performing Organization Address [place]/[facility] de Phone Number INTERFACE SYSTEM Refer to [...] HEMATOLOGY ORDERABLES Final Result Performing Organization Address [facility] Phone Number INTERFACE SYSTEM Refer to clinic/hospital department * (ABNORMAL) ALBUMIN LEVEL (12/22/2005 3:20 AM CDT) ALBUMIN 1.5(L) 3.4 - 4.8 g/dL INTERFACE SYSTEM 12/22/2005 3:20 AM CDT Romie Laughlin MD CHEMISTRY ORDERABLES Final R esult Performing Organization Address [place]/[facility] de Phone Number INTERFACE SYSTEM Refer to clinic/hospital department * (ABNORMAL) PREALBUMIN (12/22/2005 3:20 AM CDT) PREALBUMIN 15(L) 20 - 40 mg/dL INTERFACE SYSTEM 12/22/2005 3:20 AM CDT Romie Laughlin MD CHEMISTRY ORDERABLES Final R esult Performing Organization Address [facility] Phone Number INTERFACE SYSTEM Refer to clinic/hospital department * PHOSPHORUS (12/22/2005 3:20 AM CDT) PHOSPHORUS 4.1 2.5 - 4.5 mg/dL INTERFACE SYSTEM 12/22/2005 3:20 AM CDT Romie Laughlin MD CHEMISTRY ORDERABLES Final R esult Performing Organization Address [facility] Phone Number INTERFACE SYSTEM Refer to clinic/hospital department * MAGNESIUM LEVEL (12/22/2005 3:20 AM CDT) MAGNESIUM 1.6 1.5 - 2.5 mg/dL INTERFACE SYSTEM 12/22/2005 3:20 AM CDT Romie Laughlin MD CHEMISTRY ORDERABLES Final R esult Performing Organization Address [facility] Phone Number INTERFACE SYSTEM Refer to clinic/hospital department * (ABNORMAL) CALCIUM IONIZED (12/22/2005 3:20 AM CDT) CALCIUM IONIZED 4.72(L) 4.76 - 5.16 mg/dL INTERFACE SYSTEM 12/22/2005 3:20 AM CDT Romie Laughlin MD CHEMISTRY ORDERABLES Final R esult Performing Organization Address [facility] Phone Number INTERFACE SYSTEM Refer [...] ORDERABLES Final R esult Performing Organization Address [place]/[facility] de Phone Number INTERFACE SYSTEM Refer to [...] patients with mechanical heart valves or post [place]. Pediatric (12 years and under): 1.5 - [...] range for unfractionated heparin Results called to hiram at 12/22/2005 3:50 AM and read back verified. 12/22/2005 1:50 AM CDT us Romie Laughlin MD HEMATOLOGY ORDERABLES Final Result Performing Organization Address [place]/[facility] Co de Phone Number INTERFACE SYSTEM Refer to clinic/hospital department * (ABNORMAL) POC GLUCOSE (12/21/2005 11:29 PM CDT) GLUCOSE POC 168(H) 65 - 109 mg/dL INTERFACE SYSTEM 12/21/2005 11:2 9 PM CDT us Wicho Gomez MD POINT OF CARE TESTING Final [facility]UST Performing Organization Address [facility] Phone Number INTERFACE SYSTEM Refer [...] *corresponds to therapeutic range for unfractionated heparin 12/21/2005 8:27 PM CDT Result [facility] us Wicho Gomez MD HEMATOLOGY ORDERABLES Final [place] Performing Organization Address [facility] Phone Number INTERFACE SYSTEM Refer to clinic/hospital department * (ABNORMAL) POC GLUCOSE (12/21/2005 5:48 PM CDT) GLUCOSE POC 169(H) 65 - 109 mg/dL INTERFACE SYSTEM 12/21/2005 5:48 PM CDT Result [facility] us Wicho Gomez MD POINT OF CARE TESTING Final RUST Performing Organization Address [facility] Phone Number INTERFACE SYSTEM Refer [...] patients with mechanical heart valves or post [place]. Pediatric (12 years and under): 1.5 - [...] *corresponds to therapeutic range for unfractionated heparin 12/21/2005 12:2 3 PM CDT Romie Laughlin MD HEMATOLOGY ORDERABLES Final Result Performing Organization Address [facility] Phone Number INTERFACE SYSTEM Refer to clinic/hospital department * (ABNORMAL) POC GLUCOSE (12/21/2005 12:07 PM CDT) GLUCOSE POC 139(H) 65 - 109 mg/dL INTERFACE SYSTEM 12/21/2005 12:0 7 PM CDT Wicho Gomez MD POINT OF CARE TESTING Final R esult Performing Organization Address [facility] Phone Number INTERFACE SYSTEM Refer to clinic/hospital department * (ABNORMAL) POC GLUCOSE (12/21/2005 5:51 AM CDT) GLUCOSE POC 127(H) 65 - 109 mg/dL INTERFACE SYSTEM 12/21/2005 5:51 AM CDT Wicho Gomez MD POINT OF CARE TESTING Final R esult Performing Organization Address [facility] Phone Number INTERFACE SYSTEM Refer [...] K/uL INTERFACE SYSTEM 12/21/2005 3:38 AM CDT Romie Laughlin MD HEMATOLOGY ORDERABLES Final Result Performing Organization Address [facility] de Phone Number INTERFACE SYSTEM Refer to [...] HEMATOLOGY ORDERABLES Final Result Performing Organization Address [facility] de Phone Number INTERFACE SYSTEM Refer to clinic/hospital department * (ABNORMAL) CALCIUM IONIZED (12/21/2005 3:38 AM CDT) CALCIUM IONIZED 4.28(L) 4.76 - 5.16 mg/dL INTERFACE SYSTEM 12/21/2005 3:38 AM CDT Romie Laughlin MD CHEMISTRY ORDERABLES Final R esult Performing Organization Address [facility] Phone Number INTERFACE SYSTEM Refer to clinic/hospital department * PHOSPHORUS (12/21/2005 3:38 AM CDT) PHOSPHORUS 3.9 2.5 - 4.5 mg/dL INTERFACE SYSTEM 12/21/2005 3:38 AM CDT Romie Laughlin MD CHEMISTRY ORDERABLES Final R esult Performing Organization Address [facility] Phone Number INTERFACE SYSTEM Refer to clinic/hospital department * MAGNESIUM LEVEL (12/21/2005 3:38 AM CDT) MAGNESIUM 1.8 1.5 - 2.5 mg/dL INTERFACE SYSTEM 12/21/2005 3:38 AM CDT Romie Laughlin MD CHEMISTRY ORDERABLES Final R [facility] Performing Organization Address [facility] Phone Number INTERFACE SYSTEM Refer [...] R esult Performing Organization Address [facility] Phone Number INTERFACE SYSTEM Refer to clinic/hospital department * (ABNORMAL) POC GLUCOSE (12/21/2005 12:40 AM CDT) GLUCOSE POC 193(H) 65 - 109 mg/dL INTERFACE SYSTEM 12/21/2005 12:4 0 AM CDT Wicho Gomez MD POINT OF CARE TESTING Final R esult Performing Organization Address [facility] Phone Number INTERFACE SYSTEM Refer to clinic/hospital department * (ABNORMAL) POC GLUCOSE (12/20/2005 6:54 PM CDT) GLUCOSE POC 144(H) 65 - 109 mg/dL INTERFACE SYSTEM 12/20/2005 6:54 PM CDT us Wicho Gomez MD POINT OF CARE TESTING Final R esult Performing Organization Address [facility] Phone Number INTERFACE SYSTEM Refer [...] ABG ORDERABLES Final Result Performing Organization Address [facility] Phone Number INTERFACE SYSTEM Refer to clinic/hospital department * (ABNORMAL) PHOSPHORUS (12/20/2005 1:41 PM CDT) PHOSPHORUS 4.8(H) 2.5 - 4.5 mg/dL INTERFACE SYSTEM 12/20/2005 1:41 PM CDT Romie Laughlin MD CHEMISTRY ORDERABLES Final R esult Performing Organization Address [facility] Phone Number INTERFACE SYSTEM Refer to clinic/hospital department * MAGNESIUM LEVEL (12/20/2005 1:41 PM CDT) MAGNESIUM 1.8 1.5 - 2.5 mg/dL INTERFACE SYSTEM 12/20/2005 1:41 PM CDT Romie Laughlin MD CHEMISTRY ORDERABLES Final R esult Performing Organization Address [facility] Phone Number INTERFACE SYSTEM Refer to clinic/hospital department * (ABNORMAL) CALCIUM IONIZED (12/20/2005 1:40 PM CDT) CALCIUM IONIZED 4.48(L) 4.76 - 5.16 mg/dL INTERFACE SYSTEM 12/20/2005 1:40 PM CDT Romie Laughlin MD CHEMISTRY ORDERABLES Final [facility] Performing Organization Address [facility] Phone Number INTERFACE SYSTEM Refer [...] mmol/L INTERFACE SYSTEM 12/20/2005 1:40 PM CDT Romie Laughlin MD CHEMISTRY ORDERABLES Final R esult Performing Organization Address [facility] Phone Number INTERFACE SYSTEM Refer [...] HEMATOLOGY ORDERABLES Final Result Performing Organization Address [place]/[facility] Co de Phone Number INTERFACE SYSTEM Refer to clinic/hospital department * POC GLUCOSE (12/20/2005 12:14 PM CDT) GLUCOSE POC 87 65 - 109 mg/dL INTERFACE SYSTEM 12/20/2005 12:1 4 PM CDT us Wicho Gomez MD POINT OF CARE TESTING Final R esult Performing Organization Address [facility] Co de Phone Number INTERFACE SYSTEM Refer to clinic/hospital department * (ABNORMAL) PT AND APTT (12/20/2005 3:30 AM CDT) PROTIME 16.3(H) 12.7 - 15.1 Seconds INTERFACE SYSTEM INR 1.2(H) 0.9 - 1.1 INTERFACE SYSTEM Comment: INR Therapeutic Range: Adult: 2.0 - 3.0 for pulmonary embolism or prophylaxis against venous thrombosis or systemic embolization. 2.0 - 3.0 for patients with tissue heart valves. 2.5 - 3.5 for patients with mechanical heart valves or post [place]. Pediatric (12 years and under): 1.5 - [...] *corresponds to therapeutic range for unfractionated heparin 12/20/2005 3:30 AM CDT Romie Laughlin MD HEMATOLOGY ORDERABLES Final Result Performing Organization Address [facility] Phone Number INTERFACE SYSTEM Refer [...] 40% INTERFACE SYSTEM 12/20/2005 3:30 AM CDT Wicho Gomez MD ABG ORDERABLES Final Result Performing Organization Address [facility] Phone Number INTERFACE SYSTEM Refer [...] R esult Performing Organization Address [facility] Phone Number INTERFACE SYSTEM Refer to clinic/hospital department * (ABNORMAL) CBC WITH DIFFERENTIAL (12/20/2005 3:30 AM CDT) WBC 6.5 4.0 - 9.8 [...] fL INTERFACE SYSTEM 12/20/2005 3:30 AM CDT us Wicho Gomez MD HEMATOLOGY ORDERABLES Final R esult Performing Organization Address [facility] de Phone Number INTERFACE SYSTEM Refer to clinic/hospital department * PHOSPHORUS (12/20/2005 3:30 AM CDT) PHOSPHORUS 4.1 2.5 - 4.5 mg/dL INTERFACE SYSTEM 12/20/2005 3:30 AM CDT us Wicho Gomez MD CHEMISTRY ORDERABLES Final Re sult Performing Organization Address [place]/[facility] de Phone Number INTERFACE SYSTEM Refer to clinic/hospital department * MAGNESIUM LEVEL (12/20/2005 3:30 AM CDT) MAGNESIUM 1.8 1.5 - 2.5 mg/dL INTERFACE SYSTEM 12/20/2005 3:30 AM CDT us Wicho Gomez MD CHEMISTRY ORDERABLES Final Re sult Performing Organization Address [facility] de Phone Number INTERFACE SYSTEM Refer to clinic/hospital department * (ABNORMAL) CALCIUM IONIZED (12/20/2005 3:30 AM CDT) CALCIUM IONIZED 4.56(L) 4.76 - 5.16 mg/dL INTERFACE SYSTEM 12/20/2005 3:30 AM CDT us Wicho Gomez MD CHEMISTRY ORDERABLES Final Re sult Performing Organization Address [facility] Phone Number INTERFACE SYSTEM Refer [...] mmol/L INTERFACE SYSTEM 12/20/2005 3:30 AM CDT us Wicho Gomez MD CHEMISTRY ORDERABLES Final Re sult Performing Organization Address [facility] Phone Number INTERFACE SYSTEM Refer to clinic/hospital department * (ABNORMAL) POC GLUCOSE (12/19/2005 11:42 PM CDT) GLUCOSE POC 161(H) 65 - 109 mg/dL INTERFACE SYSTEM 12/19/2005 11:4 2 PM CDT us Wicho Gomez MD POINT OF CARE TESTING Final R esult Performing Organization Address [facility] Phone Number INTERFACE SYSTEM Refer to clinic/hospital department * (ABNORMAL) POC GLUCOSE (12/19/2005 6:20 PM CDT) GLUCOSE POC 118(H) 65 - 109 mg/dL INTERFACE SYSTEM 12/19/2005 6:20 PM CDT Wicho Gomez MD POINT OF CARE TESTING Final RUST Performing Organization Address [facility] Phone Number INTERFACE SYSTEM Refer to clinic/hospital department * (ABNORMAL) POC GLUCOSE (12/19/2005 1:10 PM CDT) [facility] GLUCOSE POC 168(H) 65 - 109 mg/dL INTERFACE SYSTEM 12/19/2005 1:10 PM CDT Wicho Gomez MD POINT OF CARE TESTING Final RUST Performing Organization Address [facility] Phone Number INTERFACE SYSTEM Refer to clinic/hospital department * (ABNORMAL) CBC WITH DIFFERENTIAL (12/19/2005 1:10 PM CDT) [facility] NEUTROPHIL ABSOLUTE 8.55(H) 1.90 - 7.00 K/uL [...] Wicho Gomez MD HEMATOLOGY ORDERABLES Final R [facility] Performing Organization Address [facility] de Phone Number INTERFACE SYSTEM Refer to clinic/hospital department * (ABNORMAL) CBC WITH DIFFERENTIAL (12/19/2005 1:10 PM CDT) [facility] WBC 9.0 4.0 - 9.8 K/uL INTERFACE [...] fL INTERFACE SYSTEM 12/19/2005 1:10 PM CDT us Wicho Gomez MD HEMATOLOGY [...] *corresponds to therapeutic range for unfractionated heparin PROTIME 17.0(H) 12.7 - 15.1 Seconds INTERFACE SYSTEM INR 1.3(H) 0.9 - 1.1 INTERFACE SYSTEM Comment: INR Therapeutic Range: Adult: 2.0 - 3.0 for pulmonary embolism or prophylaxis against venous thrombosis or systemic embolization. 2.0 - 3.0 for patients with tissue heart valves. 2.5 - 3.5 for patients with mechanical heart valves or post [place]. Pediatric (12 years and under): 1.5 - 3.0 Although the target range in children is not well established , INR values of 1.5 - 3.0 are recommended for most patients. Higher values have been used in children with prosthetic cardiac valves and hereditary clotting disorders. (<3 days) therapeutic ranges have not been established. 12/19/2005 1:10 PM CDT Wicho Gomez MD HEMATOLOGY ORDERABLES Final RUST Performing Organization Address [facility] Phone Number INTERFACE SYSTEM Refer to clinic/hospital department * (ABNORMAL) POC GLUCOSE (12/19/2005 5:34 AM CDT) Pathologist [facility] GLUCOSE POC 166(H) 65 - 109 mg/dL INTERFACE SYSTEM 12/19/2005 5:34 AM CDT Wicho Gomez MD POINT OF CARE TESTING Final RUST Performing Organization Address [facility] Phone Number INTERFACE SYSTEM Refer [...] Wicho Gomez MD HEMATOLOGY ORDERABLES Final R [facility] Performing Organization Address [facility] Phone Number INTERFACE SYSTEM Refer [...] fL INTERFACE SYSTEM 12/19/2005 3:29 AM CDT us Wicho Gomez MD HEMATOLOGY [...] patients with mechanical heart valves or post [place]. Pediatric (12 years and under): 1.5 - [...] *corresponds to therapeutic range for unfractionated heparin 12/19/2005 3:29 AM CDT Romie Laughlin MD HEMATOLOGY ORDERABLES Final Result Performing Organization Address [facility] Phone Number INTERFACE SYSTEM Refer to clinic/hospital department * PHOSPHORUS (12/19/2005 3:29 AM CDT) PHOSPHORUS 4.3 2.5 - 4.5 mg/dL INTERFACE SYSTEM 12/19/2005 3:29 AM CDT Wicho Gomez MD CHEMISTRY ORDERABLES Final Re sult Performing Organization Address [facility] Number INTERFACE SYSTEM Refer to clinic/hospital department * MAGNESIUM LEVEL (12/19/2005 3:29 AM CDT) MAGNESIUM 1.8 1.5 - 2.5 mg/dL INTERFACE SYSTEM 12/19/2005 3:29 AM CDT Wicho Gomez MD CHEMISTRY ORDERABLES Final Re sult Performing Organization Address [facility] Number INTERFACE SYSTEM Refer to clinic/hospital department * (ABNORMAL) CALCIUM IONIZED (12/19/2005 3:29 AM CDT) CALCIUM IONIZED 4.68(L) 4.76 - 5.16 mg/dL INTERFACE SYSTEM 12/19/2005 3:29 AM CDT Wicho Gomez MD CHEMISTRY ORDERABLES Final Re sult Performing Organization Address [facility] Phone Number INTERFACE SYSTEM Refer to [...] Re sult Performing Organization Address [facility] Phone Number INTERFACE SYSTEM Refer to clinic/hospital department * (ABNORMAL) POC GLUCOSE (12/18/2005 11:35 PM CDT) GLUCOSE POC 140(H) 65 - 109 mg/dL INTERFACE SYSTEM 12/18/2005 11:3 5 PM CDT us Wicho Gomez MD POINT OF CARE TESTING Final R esult Performing Organization Address [facility] Phone Number INTERFACE SYSTEM Refer to clinic/hospital department * (ABNORMAL) POC GLUCOSE (12/18/2005 5:20 PM CDT) GLUCOSE POC 161(H) 65 - 109 mg/dL INTERFACE SYSTEM 12/18/2005 5:20 PM CDT us Wicho Gomez MD POINT OF CARE TESTING Final R esult Performing Organization Address [facility] Phone Number INTERFACE SYSTEM Refer to clinic/hospital department * POC GLUCOSE (12/18/2005 11:41 AM CDT) GLUCOSE POC 91 65 - 109 mg/dL INTERFACE SYSTEM 12/18/2005 11:4 1 AM CDT us Wicho Gomez MD POINT OF CARE TESTING Final R esult Performing Organization Address [facility] de Phone Number INTERFACE SYSTEM Refer to clinic/hospital department * (ABNORMAL) POC GLUCOSE (12/18/2005 5:29 AM CDT) GLUCOSE POC 185(H) 65 - 109 mg/dL INTERFACE SYSTEM 12/18/2005 5:29 AM CDT Wicho Gomez MD POINT OF CARE TESTING Final R esult Performing Organization Address [facility] de Phone Number INTERFACE SYSTEM Refer to [...] ABG ORDERABLES Final Result Performing Organization Address [facility] Phone Number INTERFACE SYSTEM Refer to clinic/hospital department * (ABNORMAL) CBC WITH DIFFERENTIAL (12/18/2005 3:15 AM CDT) Pathologist [facility] NEUTROPHIL ABSOLUTE 6.30 1.90 - 7.00 K/uL [...] fL INTERFACE SYSTEM 12/18/2005 3:15 AM CDT Wicho Gomez MD HEMATOLOGY ORDERABLES Final R esult Performing Organization Address City/State/[facility] Co de Phone Number INTERFACE [...] patients with mechanical heart valves or post [place]. Pediatric (12 years and under): 1.5 - [...] *corresponds to therapeutic range for unfractionated heparin 12/18/2005 3:15 AM CDT Wicho Gomez MD HEMATOLOGY ORDERABLES Final R esult Performing Organization Address [facility] Phone Number INTERFACE SYSTEM Refer to clinic/hospital department * (ABNORMAL) PHOSPHORUS (12/18/2005 3:15 AM CDT) PHOSPHORUS 4.6(H) 2.5 - 4.5 mg/dL INTERFACE SYSTEM 12/18/2005 3:15 AM CDT Wihco Gomez MD CHEMISTRY ORDERABLES Final Re sult Performing Organization Address [facility] Phone Number INTERFACE SYSTEM Refer to clinic/hospital department * MAGNESIUM LEVEL (12/18/2005 3:15 AM CDT) MAGNESIUM 1.8 1.5 - 2.5 mg/dL INTERFACE SYSTEM 12/18/2005 3:15 AM CDT us Wicho Gomez MD CHEMISTRY ORDERABLES Final Re sult Performing Organization Address [facility] Phone Number INTERFACE SYSTEM Refer to clinic/hospital department * (ABNORMAL) CALCIUM IONIZED (12/18/2005 3:15 AM CDT) CALCIUM IONIZED 4.72(L) 4.76 - 5.16 mg/dL INTERFACE SYSTEM 12/18/2005 3:15 AM CDT us Wicho Gomez MD CHEMISTRY ORDERABLES Final Re sult Performing Organization Address [facility] Phone Number INTERFACE SYSTEM Refer [...] ORDERABLES Final Re diegot Performing Organization Address [facility] Phone Number INTERFACE SYSTEM Refer to clinic/hospital department * (ABNORMAL) POC GLUCOSE (12/17/2005 11:37 PM CDT) GLUCOSE POC 167(H) 65 - 109 mg/dL INTERFACE SYSTEM 12/17/2005 11:3 7 PM CDT Wicho Gomez MD POINT OF CARE TESTING Final R esult Performing Organization Address [facility] Phone Number INTERFACE SYSTEM Refer [...] *corresponds to therapeutic range for unfractionated heparin 12/17/2005 6:30 PM CDT Wicho Gomez MD HEMATOLOGY ORDERABLES Final R [facility] Performing Organization Address [facility] Phone Number INTERFACE SYSTEM Refer to clinic/hospital department * (ABNORMAL) POC GLUCOSE (12/17/2005 5:01 PM CDT) GLUCOSE POC 159(H) 65 - 109 mg/dL INTERFACE SYSTEM 12/17/2005 5:01 PM CDT Wicho Gomez MD POINT OF CARE TESTING Final R [facility] Performing Organization Address [facility] Phone Number INTERFACE SYSTEM Refer to clinic/hospital department * (ABNORMAL) POC GLUCOSE (12/17/2005 12:13 PM CDT) GLUCOSE POC 144(H) 65 - 109 mg/dL INTERFACE SYSTEM 12/17/2005 12:1 3 PM CDT Wicho Gomez MD POINT OF CARE TESTING Final R [facility] Performing Organization Address [facility] Phone Number INTERFACE SYSTEM Refer [...] *corresponds to therapeutic range for unfractionated heparin 12/17/2005 7:45 AM CDT Wicho Gomez MD HEMATOLOGY ORDERABLES Final R [facility] Performing Organization Address [facility] Phone Number INTERFACE SYSTEM Refer to clinic/hospital department * (ABNORMAL) POC GLUCOSE (12/17/2005 6:00 AM CDT) GLUCOSE POC 148(H) 65 - 109 mg/dL INTERFACE SYSTEM 12/17/2005 6:00 AM CDT us Wicho Gomez MD POINT OF CARE TESTING Final R esult Performing Organization Address [facility] Phone Number INTERFACE SYSTEM Refer to clinic/hospital department * (ABNORMAL) BLOOD GAS ARTERIAL (12/17/2005 3:35 AM CDT) PH ARTERIAL 7.43 7.35 - [...] 40% INTERFACE SYSTEM 12/17/2005 3:35 AM CDT us Wicho Gomez MD ABG ORDERABLES Final Result Performing Organization Address [facility] Phone Number INTERFACE SYSTEM Refer to clinic/hospital department * (ABNORMAL) CBC WITH DIFFERENTIAL (12/17/2005 3:35 AM CDT) NEUTROPHILS 81(H) 45 - 70 [...] K/uL INTERFACE SYSTEM 12/17/2005 3:35 AM CDT us Wicho Gomez MD HEMATOLOGY ORDERABLES Final R esult Performing Organization Address [facility] Phone Number INTERFACE SYSTEM Refer [...] R esult Performing Organization Address [facility] de Phone Number INTERFACE SYSTEM Refer to clinic/hospital department * PHOSPHORUS (12/17/2005 3:35 AM CDT) PHOSPHORUS 3.4 2.5 - 4.5 mg/dL INTERFACE SYSTEM 12/17/2005 3:35 AM CDT Wicho Gomez MD CHEMISTRY ORDERABLES Final Re sult Performing Organization Address [place]/[facility] Co de Phone Number INTERFACE SYSTEM Refer to clinic/hospital department * MAGNESIUM LEVEL (12/17/2005 3:35 AM CDT) MAGNESIUM 1.8 1.5 - 2.5 mg/dL INTERFACE SYSTEM 12/17/2005 3:35 AM CDT Wicho Gomez MD CHEMISTRY ORDERABLES Final Re sult Performing Organization Address [place]/[facility] Co de Phone Number INTERFACE SYSTEM Refer to clinic/hospital department * (ABNORMAL) CALCIUM IONIZED (12/17/2005 3:35 AM CDT) CALCIUM IONIZED 4.48(L) 4.76 - 5.16 mg/dL INTERFACE SYSTEM 12/17/2005 3:35 AM CDT Wicho Gomez MD CHEMISTRY ORDERABLES Final Re sult Performing Organization Address [facility] Phone Number INTERFACE SYSTEM Refer [...] mmol/L INTERFACE SYSTEM 12/17/2005 3:35 AM CDT Wicho Gomez MD CHEMISTRY ORDERABLES Final Re sult Performing Organization Address [facility] Phone Number INTERFACE SYSTEM Refer [...] patients with mechanical heart valves or post [place]. Pediatric (12 years and under): 1.5 - [...] *corresponds to therapeutic range for unfractionated heparin 12/17/2005 1:00 AM CDT us Wicho Gomez MD HEMATOLOGY ORDERABLES Final R esult Performing Organization Address [facility] de Phone Number INTERFACE SYSTEM Refer to clinic/hospital department * (ABNORMAL) POC GLUCOSE (12/16/2005 11:59 PM CDT) GLUCOSE POC 134(H) 65 - 109 mg/dL INTERFACE SYSTEM 12/16/2005 11:5 9 PM CDT Wicho Gomez MD POINT OF CARE TESTING [facility] Performing Organization Address [facility] de Phone Number INTERFACE SYSTEM Refer to [...] patients with mechanical heart valves or post [place]. Pediatric (12 years and under): 1.5 - [...] *corresponds to therapeutic range for unfractionated heparin 12/16/2005 7:00 PM CDT Wicho Gomez MD HEMATOLOGY ORDERABLES Final R esult Performing Organization Address [facility] Phone Number INTERFACE SYSTEM Refer to clinic/hospital department * (ABNORMAL) POC GLUCOSE (12/16/2005 5:42 PM CDT) GLUCOSE POC 154(H) 65 - 109 mg/dL INTERFACE SYSTEM 12/16/2005 5:42 PM CDT Wicho Gomez MD POINT OF CARE TESTING Final R esult Performing Organization Address [facility] Phone Number INTERFACE SYSTEM Refer to clinic/hospital department * (ABNORMAL) PTT (12/16/2005 10:46 AM CDT) PTT 53.6(H) 24.4 - 36.4 Seconds INTERFACE SYSTEM Comment: PTT Therapeutic Range: Heparin Level PTT (seconds) <0.10 units/mL <53 0.10 - 0.30 units/mL 53 - 67 0.30 - 0.70 units/mL* 67 - 95* 0.70 - 1.00 units/mL 95 - 116 *corresponds to therapeutic range for unfractionated heparin 12/16/2005 10:4 6 AM CDT Romie Laughlin MD HEMATOLOGY ORDERABLES Final Result Performing Organization Address [facility] Phone Number INTERFACE SYSTEM Refer [...] .40 INTERFACE SYSTEM 12/16/2005 3:10 AM CDT Wicho Gomez MD ABG ORDERABLES Final Result Performing Organization Address [facility] Phone Number INTERFACE SYSTEM Refer [...] *corresponds to therapeutic range for unfractionated heparin 12/16/2005 3:10 AM CDT Wicho Gomez MD HEMATOLOGY ORDERABLES Final R esult Performing Organization Address [facility] de Phone Number INTERFACE SYSTEM Refer to [...] patients with mechanical heart valves or post [place]. Pediatric (12 years and under): 1.5 - 3.0 Although the target range in children is not well established , INR values of 1.5 - 3.0 are recommended for most patients. Higher values have been used in children with prosthetic cardiac valves and hereditary clotting disorders. (<3 days) therapeutic ranges have not been established. 12/16/2005 3:10 AM CDT Wicho Gomez MD HEMATOLOGY ORDERABLES Final RUST Performing Organization Address [facility] Phone Number INTERFACE SYSTEM Refer [...] Wicho Gomez MD HEMATOLOGY ORDERABLES Final R [facility] Performing Organization Address [facility] Phone Number INTERFACE SYSTEM Refer [...] fL INTERFACE SYSTEM 12/16/2005 3:10 AM CDT us Wicho Gomez MD HEMATOLOGY ORDERABLES Final R esult Performing Organization Address [facility] Phone Number INTERFACE SYSTEM Refer to clinic/hospital department * PHOSPHORUS (12/16/2005 3:10 AM CDT) PHOSPHORUS 3.1 2.5 - 4.5 mg/dL INTERFACE SYSTEM 12/16/2005 3:10 AM CDT us Wicho Gomez MD CHEMISTRY ORDERABLES Final Re sult Performing Organization Address [facility] de Phone Number INTERFACE SYSTEM Refer to clinic/hospital department * MAGNESIUM LEVEL (12/16/2005 3:10 AM CDT) MAGNESIUM 1.7 1.5 - 2.5 mg/dL INTERFACE SYSTEM 12/16/2005 3:1 0 AM CDT us Wicho Gomez MD CHEMISTRY ORDERABLES Final Re sult Performing Organization Address [facility] de Phone Number INTERFACE SYSTEM Refer to clinic/hospital department * (ABNORMAL) CALCIUM IONIZED (12/16/2005 3:10 AM CDT) CALCIUM IONIZED 4.60(L) 4.76 - 5.16 mg/dL INTERFACE SYSTEM 12/16/2005 3:10 AM CDT us Wicho Gomez MD CHEMISTRY ORDERABLES Final Re sult Performing Organization Address [facility] Phone Number INTERFACE SYSTEM Refer [...] ORDERABLES Final Re sult Performing Organization Address [facility] Phone Number INTERFACE SYSTEM Refer to clinic/hospital department * (ABNORMAL) POC GLUCOSE (12/15/2005 11:36 PM CDT) GLUCOSE POC 128(H) 65 - 109 mg/dL INTERFACE SYSTEM 12/15/2005 11:3 6 PM CDT Wicho Gomez MD POINT OF CARE TESTING Final R esult Performing Organization Address [facility] Phone Number INTERFACE SYSTEM Refer [...] patients with mechanical heart valves or post [place]. Pediatric (12 years and under): 1.5 - [...] *corresponds to therapeutic range for unfractionated heparin 12/15/2005 9:01 PM CDT us Romie Laughlin MD HEMATOLOGY ORDERABLES Final Result Performing Organization Address [facility] Phone Number INTERFACE SYSTEM Refer to clinic/hospital department * (ABNORMAL) POC GLUCOSE (12/15/2005 4:58 PM CDT) GLUCOSE POC 181(H) 65 - 109 mg/dL INTERFACE SYSTEM 12/15/2005 4:58 PM CDT us Wicho Gomez MD POINT OF CARE TESTING Final R esult Performing Organization Address [facility] Phone Number INTERFACE SYSTEM Refer [...] patients with mechanical heart valves or post [place]. Pediatric (12 years and under): 1.5 - [...] *corresponds to therapeutic range for unfractionated heparin 12/15/2005 4:00 PM CDT Wicho Gomez MD HEMATOLOGY ORDERABLES Final R esult Performing Organization Address [place]/[facility] de Phone Number INTERFACE SYSTEM Refer to clinic/hospital department * (ABNORMAL) POC GLUCOSE (12/15/2005 11:57 AM CDT) GLUCOSE POC 121(H) 65 - 109 mg/dL INTERFACE SYSTEM 12/15/2005 11:5 7 AM CDT Wicho Gomez MD POINT OF CARE TESTING Final [facility] Performing Organization Address [facility] de Phone Number INTERFACE SYSTEM Refer to [...] patients with mechanical heart valves or post [place]. Pediatric (12 years and under): 1.5 - [...] *corresponds to therapeutic range for unfractionated heparin 12/15/2005 11:1 2 AM CDT us Wicho Gomez MD HEMATOLOGY ORDERABLES Final R [facility] Performing Organization Address [facility] de Phone Number INTERFACE SYSTEM Refer to clinic/hospital department * (ABNORMAL) POC GLUCOSE (12/15/2005 6:32 AM CDT) GLUCOSE POC 150(H) 65 - 109 mg/dL INTERFACE SYSTEM 12/15/2005 6:32 AM CDT us Wicho Gomez MD POINT OF CARE TESTING Final R [place] Performing Organization Address [facility] Phone Number INTERFACE SYSTEM Refer [...] patients with mechanical heart valves or post [place]. Pediatric (12 years and under): 1.5 - [...] *corresponds to therapeutic range for unfractionated heparin 12/15/2005 4:30 AM CDT Wicho Gomez MD HEMATOLOGY ORDERABLES Final R esult Performing Organization Address [facility] Phone Number INTERFACE SYSTEM Refer [...] ABG ORDERABLES Final Result Performing Organization Address [facility] Phone Number INTERFACE SYSTEM Refer [...] ORDERABLES Final Res ult Performing Organization Address [place]/[facility]/ZIP [place] de Phone Number INTERFACE SYSTEM Refer to [...] Res ult Performing Organization Address [facility] Phone Number INTERFACE SYSTEM Refer to clinic/hospital department * PHOSPHORUS (12/15/2005 4:30 AM CDT) PHOSPHORUS 3.3 2.5 - 4.5 mg/dL INTERFACE SYSTEM 12/15/2005 4:30 AM CDT us Harshad Heller MD CHEMISTRY ORDERABLES Final Resu lt INTERFACE SYSTEM Refer to clinic/hospital department * MAGNESIUM LEVEL (12/15/2005 4:30 AM CDT) MAGNESIUM 1.9 1.5 - 2.5 mg/dL INTERFACE SYSTEM 12/15/2005 4:30 AM CDT us Harshad Heller MD CHEMISTRY ORDERABLES Final Resu lt Performing Organization Address [facility] Phone Number INTERFACE SYSTEM Refer to clinic/hospital department * (ABNORMAL) CALCIUM IONIZED (12/15/2005 4:30 AM CDT) CALCIUM IONIZED 4.68(L) 4.76 - 5.16 mg/dL INTERFACE SYSTEM 12/15/2005 4:30 AM CDT Harshad Heller MD CHEMISTRY ORDERABLES Final Resu lt Performing Organization Address [facility] Phone Number INTERFACE SYSTEM Refer [...] Resu lt Performing Organization Address [facility] Phone Number INTERFACE SYSTEM Refer to clinic/hospital department * (ABNORMAL) POC GLUCOSE (12/15/2005 12:29 AM CDT) GLUCOSE POC 144(H) 65 - 109 mg/dL INTERFACE SYSTEM 12/15/2005 12:2 9 AM CDT Wicho Gomez MD POINT OF CARE TESTING Final R esult Performing Organization Address [facility] Phone Number INTERFACE SYSTEM Refer [...] *corresponds to therapeutic range for unfractionated heparin 12/14/2005 9:46 PM CDT Wicho Gomez MD HEMATOLOGY ORDERABLES Final R esult Performing Organization Address [place]/[facility] de Phone Number INTERFACE SYSTEM Refer to clinic/hospital department * (ABNORMAL) POC GLUCOSE (12/14/2005 6:26 PM CDT) [facility] GLUCOSE POC 168(H) 65 - 109 mg/dL INTERFACE SYSTEM 12/14/2005 6:26 PM CDT Wicho Gomez MD POINT OF CARE TESTING Final R esult Performing Organization Address [facility] Phone Number INTERFACE SYSTEM Refer to clinic/hospital department * (ABNORMAL) PTT (12/14/2005 1:45 PM CDT) Pathologist [facility] PTT 38.3(H) 24.4 - 36.4 Seconds INTERFACE SYSTEM Comment: PTT Therapeutic Range: Heparin Level PTT (seconds) <0.10 units/mL <53 0.10 - 0.30 units/mL 53 - 67 0.30 - 0.70 units/mL* 67 - 95* 0.70 - 1.00 units/mL 95 - 116 *corresponds to therapeutic range for unfractionated heparin 12/14/2005 1:45 PM CDT Harshad Heller MD HEMATOLOGY ORDERABLES Final Res ult Performing Organization Address [place]/[facility] de Phone Number INTERFACE SYSTEM Refer to clinic/hospital department * (ABNORMAL) POC GLUCOSE (12/14/2005 12:39 PM CDT) Pathologist [facility] GLUCOSE POC 141(H) 65 - 109 mg/dL INTERFACE SYSTEM 12/14/2005 12:3 9 PM CDT us Wicho Gomez MD POINT OF CARE TESTING Final R esult Performing Organization Address [facility] de Phone Number INTERFACE SYSTEM Refer to [...] ABG ORDERABLES Final Result Performing Organization Address [facility] de Phone Number INTERFACE SYSTEM Refer to clinic/hospital department * (ABNORMAL) CBC WITH DIFFERENTIAL (12/14/2005 3:50 AM CDT) Pathologist [facility] NEUTROPHIL ABSOLUTE 5.61 1.90 - 7.00 K/uL [...] Slight INTERFACE SYSTEM 12/14/2005 3:50 AM CDT Wicho Gomez MD HEMATOLOGY ORDERABLES Final R [facility] Performing Organization Address [facility] de Phone Number INTERFACE SYSTEM Refer to [...] fL INTERFACE SYSTEM 12/14/2005 3:50 AM CDT Wicho Gomez MD HEMATOLOGY ORDERABLES Final R [facility] Performing Organization Address [facility] de Phone Number INTERFACE SYSTEM Refer to [...] patients with mechanical heart valves or post [place]. Pediatric (12 years and under): 1.5 - [...] *corresponds to therapeutic range for unfractionated heparin 12/14/2005 3:50 AM CDT us Wicho Gomez MD HEMATOLOGY ORDERABLES Final R esult Performing Organization Address [facility] Phone Number INTERFACE SYSTEM Refer to clinic/hospital department * (ABNORMAL) PHOSPHORUS (12/14/2005 3:50 AM CDT) PHOSPHORUS 4.9(H) 2.5 - 4.5 mg/dL INTERFACE SYSTEM 12/14/2005 3:50 AM CDT Wicho Gomez MD CHEMISTRY ORDERABLES Final Re sult Performing Organization Address [facility] Phone Number INTERFACE SYSTEM Refer to clinic/hospital department * MAGNESIUM LEVEL (12/14/2005 3:50 AM CDT) MAGNESIUM 2.0 1.5 - 2.5 mg/dL INTERFACE SYSTEM 12/14/2005 3:50 AM CDT us Wicho Gomez MD CHEMISTRY ORDERABLES Final Re sult Performing Organization Address [facility] Phone Number INTERFACE SYSTEM Refer to clinic/hospital department * CALCIUM IONIZED (12/14/2005 3:50 AM CDT) CALCIUM IONIZED 4.76 4.76 - 5.16 mg/dL INTERFACE SYSTEM 12/14/2005 3:50 AM CDT us Wicho Gomez MD CHEMISTRY ORDERABLES Final [facility] Performing Organization Address [facility] [...] mmol/L INTERFACE SYSTEM 12/14/2005 3:50 AM CDT us Wicho Gomez MD CHEMISTRY ORDERABLES Final Re sult Performing Organization Address [facility] Phone Number INTERFACE SYSTEM Refer to clinic/hospital department * (ABNORMAL) POC GLUCOSE (12/13/2005 11:52 PM CDT) GLUCOSE POC 121(H) 65 - 109 mg/dL INTERFACE SYSTEM 12/13/2005 11:5 2 PM CDT us Wicho Gomez MD POINT OF CARE TESTING Final R esult Performing Organization Address [facility] Phone Number INTERFACE SYSTEM Refer [...] ABG ORDERABLES Final Result Performing Organization Address [facility] Phone Number INTERFACE SYSTEM Refer to clinic/hospital department * (ABNORMAL) POC GLUCOSE (12/13/2005 5:31 PM CDT) COMMENT, GLU POC Notified RN INTERFACE SYSTEM GLUCOSE POC 112(H) 65 - 109 mg/dL INTERFACE SYSTEM 12/13/2005 5:31 PM CDT Wicho Gomez MD POINT OF CARE TESTING Final R esult Performing Organization Address [facility] [...] 40% INTERFACE SYSTEM 12/13/2005 3:57 PM CDT Wicho Gomez MD ABG ORDERABLES Final Result Performing Organization Address [facility] Phone Number INTERFACE SYSTEM Refer [...] IN TERFACE SYSTEM 12/13/2005 3:35 PM CDT Wicho Gomez MD HEMATOLOGY ORDERABLES Final R esult Performing Organization Address City/State/[facility] Co de Phone Number INTERFACE [...] ORDERABLES Final R esult Performing Organization Address [place]/[facility] Phone Number INTERFACE SYSTEM Refer [...] *corresponds to therapeutic range for unfractionated heparin PROTIME 16.5(H) 12.7 - 15.1 Seconds INTERFACE SYSTEM INR 1.2(H) 0.9 - 1.1 INTERFACE SYSTEM Comment: INR Therapeutic Range: Adult: 2.0 - 3.0 for pulmonary embolism or prophylaxis against venous thrombosis or systemic embolization. 2.0 - 3.0 for patients with tissue heart valves. 2.5 - 3.5 for patients with mechanical heart valves or post [place]. Pediatric (12 years and under): 1.5 - 3.0 Although the target range in children is not well established , INR values of 1.5 - 3.0 are recommended for most patients. Higher values have been used in children with prosthetic cardiac valves and hereditary clotting disorders. (<3 days) therapeutic ranges have not been established. 12/13/2005 3:35 PM CDT us Wicho Gomez MD HEMATOLOGY ORDERABLES Final R esult Performing Organization Address [facility] Phone Number INTERFACE SYSTEM Refer to clinic/hospital department * PHOSPHORUS (12/13/2005 3:35 PM CDT) PHOSPHORUS 4.4 2.5 - 4.5 mg/dL INTERFACE SYSTEM 12/13/2005 3:35 PM CDT Wicho Gomez MD CHEMISTRY ORDERABLES Final Re sult Performing Organization Address [facility] Phone Number INTERFACE SYSTEM Refer to clinic/hospital department * MAGNESIUM LEVEL (12/13/2005 3:35 PM CDT) MAGNESIUM 1.9 1.5 - 2.5 mg/dL INTERFACE SYSTEM 12/13/2005 3:35 PM CDT Wicho Gomez MD CHEMISTRY ORDERABLES Final Re sult Performing Organization Address [facility] Phone Number INTERFACE SYSTEM Refer to clinic/hospital department * (ABNORMAL) CALCIUM IONIZED (12/13/2005 3:35 PM CDT) CALCIUM IONIZED 4.60(L) 4.76 - 5.16 mg/dL INTERFACE SYSTEM 12/13/2005 3:35 PM CDT us Wicho Gomez MD CHEMISTRY ORDERABLES Final Re sult Performing Organization Address [facility] Phone Number INTERFACE SYSTEM Refer [...] Mag, Phos: post-op 12/13/2005 3:35 PM CDT us Wicho Gomez MD CHEMISTRY ORDERABLES Final Re sult Performing Organization Address [facility] Phone Number INTERFACE SYSTEM Refer to clinic/hospital department * (ABNORMAL) POC GLUCOSE (12/13/2005 12:09 PM CDT) COMMENT, GLU POC Notified RN INTERFACE SYSTEM GLUCOSE POC 112(H) 65 - 109 mg/dL INTERFACE SYSTEM 12/13/2005 12:0 9 PM CDT Wicho Gomez MD POINT OF CARE TESTING Final R esult Performing Organization Address [facility] Phone Number INTERFACE SYSTEM Refer to clinic/hospital department * POC GLUCOSE (12/13/2005 5:15 AM CDT) GLUCOSE POC 89 65 - 109 mg/dL INTERFACE SYSTEM 12/13/2005 5:15 AM CDT Wicho Gomez MD POINT OF CARE TESTING Final R esult Performing Organization Address [facility] Phone Number INTERFACE SYSTEM Refer [...] ABG ORDERABLES Final Result Performing Organization Address [facility] Phone Number INTERFACE SYSTEM Refer [...] INTERFAC E SYSTEM 12/13/2005 3:15 AM CDT Wicho Gomez MD HEMATOLOGY ORDERABLES Final R esult Performing Organization Address [place]/[facility] Co de Phone Number [...] fL INTERFACE SYSTEM 12/13/2005 3:15 AM CDT Wicho Gomez MD HEMATOLOGY [...] R esult Performing Organization Address [facility] de Phone Number INTERFACE SYSTEM Refer to clinic/hospital department * (ABNORMAL) PREALBUMIN (12/13/2005 3:15 AM CDT) PREALBUMIN 13(L) 20 - 40 mg/dL INTERFACE SYSTEM 12/13/2005 3:15 AM CDT Romie Laughlin MD CHEMISTRY ORDERABLES Final R esult Performing Organization Address [facility] de Phone Number INTERFACE SYSTEM Refer to [...] patients with mechanical heart valves or post [place]. Pediatric (12 years and under): 1.5 - [...] *corresponds to therapeutic range for unfractionated heparin 12/13/2005 3:15 AM CDT us Wicho Gomez MD HEMATOLOGY ORDERABLES Final R esult Performing Organization Address [facility] Phone Number INTERFACE SYSTEM Refer to clinic/hospital department * PHOSPHORUS (12/13/2005 3:15 AM CDT) PHOSPHORUS 3.2 2.5 - 4.5 mg/dL INTERFACE SYSTEM 12/13/2005 3:15 AM CDT Wicho Gomez MD CHEMISTRY ORDERABLES Final Re sult Performing Organization Address [facility] Phone Number INTERFACE SYSTEM Refer to clinic/hospital department * MAGNESIUM LEVEL (12/13/2005 3:15 AM CDT) MAGNESIUM 1.8 1.5 - 2.5 mg/dL INTERFACE SYSTEM 12/13/2005 3:15 AM CDT us Wicho Gomez MD CHEMISTRY ORDERABLES Final Re sult Performing Organization Address [facility] Phone Number INTERFACE SYSTEM Refer to clinic/hospital department * (ABNORMAL) CALCIUM IONIZED (12/13/2005 3:15 AM CDT) CALCIUM IONIZED 4.60(L) 4.76 - 5.16 mg/dL INTERFACE SYSTEM 12/13/2005 3:15 AM CDT us Wicho Gomez MD CHEMISTRY ORDERABLES Final Re sult Performing Organization Address [facility] Phone Number INTERFACE SYSTEM Refer [...] mmol/L INTERFACE SYSTEM 12/13/2005 3:15 AM CDT Wicho Gomez MD CHEMISTRY ORDERABLES Final Re sult Performing Organization Address [facility] Phone Number INTERFACE SYSTEM Refer to clinic/hospital department * (ABNORMAL) POC GLUCOSE (12/12/2005 11:47 PM CDT) GLUCOSE POC 146(H) 65 - 109 mg/dL INTERFACE SYSTEM 12/12/2005 11:4 7 PM CDT Wicho Gomez MD POINT OF CARE TESTING Final R esult Performing Organization Address [facility] Phone Number INTERFACE SYSTEM Refer to clinic/hospital department * (ABNORMAL) POC GLUCOSE (12/12/2005 6:51 PM CDT) GLUCOSE POC 133(H) 65 - 109 mg/dL INTERFACE SYSTEM 12/12/2005 6:51 PM CDT Wicho Gomez MD POINT OF CARE TESTING Final R esult Performing Organization Address [facility] Phone Number INTERFACE SYSTEM Refer [...] patients with mechanical heart valves or post [place]. Pediatric (12 years and under): 1.5 - [...] *corresponds to therapeutic range for unfractionated heparin 12/12/2005 4:40 PM CDT Romie Laughlin MD HEMATOLOGY ORDERABLES Final Result Performing Organization Address [facility] Phone Number INTERFACE SYSTEM Refer to clinic/hospital department * (ABNORMAL) POC GLUCOSE (12/12/2005 1:17 PM CDT) GLUCOSE POC 121(H) 65 - 109 mg/dL INTERFACE SYSTEM 12/12/2005 1:17 PM CDT Wicho Gomez MD POINT OF CARE TESTING Final R esult Performing Organization Address [facility] de Phone Number INTERFACE SYSTEM Refer to clinic/hospital department * (ABNORMAL) POC GLUCOSE (12/12/2005 5:56 AM CDT) GLUCOSE POC 142(H) 65 - 109 mg/dL INTERFACE SYSTEM 12/12/2005 5:56 AM CDT Wicho Gomez MD POINT OF CARE TESTING Final R esult Performing Organization Address [facility] Phone Number INTERFACE SYSTEM Refer [...] ABG ORDERABLES Final Result Performing Organization Address [facility] Phone Number INTERFACE SYSTEM Refer [...] ORDERABLES Final R esult Performing Organization Address [place]/[facility] Co de Phone Number [...] fL INTERFACE SYSTEM 12/12/2005 4:00 AM CDT Wicho Gomez MD HEMATOLOGY ORDERABLES Final R [facility] Performing Organization Address [facility] de Phone Number INTERFACE SYSTEM Refer to [...] patients with mechanical heart valves or post [place]. Pediatric (12 years and under): 1.5 - [...] *corresponds to therapeutic range for unfractionated heparin 12/12/2005 4:00 AM CDT Romie Laughlin MD HEMATOLOGY ORDERABLES Final Result Performing Organization Address [facility] Phone Number INTERFACE SYSTEM Refer to clinic/hospital department * (ABNORMAL) CALCIUM IONIZED (12/12/2005 4:00 AM CDT) CALCIUM IONIZED 4.40(L) 4.76 - 5.16 mg/dL INTERFACE SYSTEM 12/12/2005 4:00 AM CDT Wicho Gomez MD CHEMISTRY ORDERABLES Final Re sult Performing Organization Address [facility] Phone Number INTERFACE SYSTEM Refer to clinic/hospital department * PHOSPHORUS (12/12/2005 4:00 AM CDT) PHOSPHORUS 2.8 2.5 - 4.5 mg/dL INTERFACE SYSTEM 12/12/2005 4:00 AM CDT Wicho Gomez MD CHEMISTRY ORDERABLES Final Re sult Performing Organization Address [facility] Phone Number INTERFACE SYSTEM Refer to clinic/hospital department * MAGNESIUM LEVEL (12/12/2005 4:00 AM CDT) MAGNESIUM 2.0 1.5 - 2.5 mg/dL INTERFACE SYSTEM 12/12/2005 4:00 AM CDT Wicho Gomez MD CHEMISTRY ORDERABLES Final Re sult Performing Organization Address [facility] Phone Number INTERFACE SYSTEM Refer [...] Re sult Performing Organization Address [facility] Phone Number INTERFACE SYSTEM Refer to clinic/hospital department * (ABNORMAL) POC GLUCOSE (12/12/2005 12:10 AM CDT) GLUCOSE POC 115(H) 65 - 109 mg/dL INTERFACE SYSTEM 12/12/2005 12:1 0 AM CDT us Wicho Gomez MD POINT OF CARE TESTING Final R esult Performing Organization Address [facility] Phone Number INTERFACE SYSTEM Refer to clinic/hospital department * (ABNORMAL) POC GLUCOSE (12/11/2005 6:41 PM CDT) GLUCOSE POC 129(H) 65 - 109 mg/dL INTERFACE SYSTEM 12/11/2005 6:41 PM CDT us Wicho Gomez MD POINT OF CARE TESTING Final R [place] Performing Organization Address [facility] Phone Number INTERFACE SYSTEM Refer [...] patients with mechanical heart valves or post [place]. Pediatric (12 years and under): 1.5 - [...] *corresponds to therapeutic range for unfractionated heparin 12/11/2005 12:3 0 PM CDT Romie Laughlin MD HEMATOLOGY ORDERABLES Final Result Performing Organization Address [facility] Phone Number INTERFACE SYSTEM Refer to clinic/hospital department * (ABNORMAL) POC GLUCOSE (12/11/2005 11:46 AM CDT) GLUCOSE POC 148(H) 65 - 109 mg/dL INTERFACE SYSTEM 12/11/2005 11:4 6 AM CDT Wicho Gomez MD POINT OF CARE TESTING Final R esult Performing Organization Address [facility] de Phone Number INTERFACE SYSTEM Refer to clinic/hospital department * (ABNORMAL) POC GLUCOSE (12/11/2005 5:24 AM CDT) GLUCOSE POC 162(H) 65 - 109 mg/dL INTERFACE SYSTEM 12/11/2005 5:24 AM CDT Wicho Gomez MD POINT OF CARE TESTING Final R esult Performing Organization Address [facility] de Phone Number INTERFACE SYSTEM Refer to [...] ABG ORDERABLES Final Result Performing Organization Address [facility] Phone Number INTERFACE SYSTEM Refer to clinic/hospital department * (ABNORMAL) CBC WITH DIFFERENTIAL (12/11/2005 3:30 AM CDT) Pathologist [facility] NEUTROPHIL ABSOLUTE 5.48 1.90 - 7.00 K/uL [...] R esult Performing Organization Address [facility] de Phone Number INTERFACE SYSTEM Refer to [...] R esult Performing Organization Address [facility] de Phone Number INTERFACE SYSTEM Refer to clinic/hospital department * (ABNORMAL) CBC WITH DIFFERENTIAL (12/11/2005 3:30 AM CDT) Pathologist [facility] WBC 7.4 4.0 - 9.8 K/uL INTERFACE [...] fL INTERFACE SYSTEM 12/11/2005 3:30 AM CDT Wicho [...] patients with mechanical heart valves or post [place]. Pediatric (12 years and under): 1.5 - [...] *corresponds to therapeutic range for unfractionated heparin 12/11/2005 3:30 AM CDT Wicho Gomez MD HEMATOLOGY ORDERABLES Final R esult Performing Organization Address [facility] de Phone Number INTERFACE SYSTEM Refer to clinic/hospital department * PHOSPHORUS (12/11/2005 3:30 AM CDT) PHOSPHORUS 2.5 2.5 - 4.5 mg/dL INTERFACE SYSTEM 12/11/2005 3:30 AM CDT Wicho Gomez MD CHEMISTRY ORDERABLES Final Re sult INTERFACE SYSTEM Refer to clinic/hospital department * MAGNESIUM LEVEL (12/11/2005 3:30 AM CDT) MAGNESIUM 1.9 1.5 - 2.5 mg/dL INTERFACE SYSTEM 12/11/2005 3:30 AM CDT us Wicho Gomez MD CHEMISTRY ORDERABLES Final Re sult Performing Organization Address [facility] Number INTERFACE SYSTEM Refer to clinic/hospital department * (ABNORMAL) CALCIUM IONIZED (12/11/2005 3:30 AM CDT) CALCIUM IONIZED 4.44(L) 4.76 - 5.16 mg/dL INTERFACE SYSTEM 12/11/2005 3:30 AM CDT us Wicho Gomez MD CHEMISTRY ORDERABLES Final Re sult Performing Organization Address [facility] Number INTERFACE SYSTEM Refer to clinic/hospital [...] mmol/L INTERFACE SYSTEM 12/11/2005 3:30 AM CDT us Wicho Gomez MD CHEMISTRY ORDERABLES Final Re sult Performing Organization Address [facility] Phone Number INTERFACE SYSTEM Refer to clinic/hospital department * (ABNORMAL) POC GLUCOSE (12/11/2005 12:14 AM CDT) GLUCOSE POC 126(H) 65 - 109 mg/dL INTERFACE SYSTEM 12/11/2005 12:1 4 AM CDT us Wicho Gomez MD POINT OF CARE TESTING Final R esult Performing Organization Address [facility] Phone Number INTERFACE SYSTEM Refer to clinic/hospital department * (ABNORMAL) BLOOD GAS ARTERIAL (12/10/2005 9:45 PM CDT) [facility] PH ARTERIAL 7.44 7.35 - 7.45 INTERFACE [...] ABG ORDERABLES Final Result Performing Organization Address [facility] Phone Number INTERFACE SYSTEM Refer to clinic/hospital department * (ABNORMAL) PTT (12/10/2005 9:25 PM CDT) [facility] PTT 102.5(AA) 24.4 - 36.4 Seconds INTERFACE SYSTEM Comment: PTT Therapeutic Range: Heparin Level PTT (seconds) <0.10 units/mL <53 0.10 - 0.30 units/mL 53 - 67 0.30 - 0.70 units/mL* 67 - 95* 0.70 - 1.00 units/mL 95 - 116 *corresponds to therapeutic range for unfractionated heparin Verified by repeat analysis. Results called to Neda at 12/10/2005 10:18 PM and read back verified. 12/10/2005 9:25 PM CDT us Wicho Gomez MD HEMATOLOGY ORDERABLES Final R esult Performing Organization Address [facility] Phone Number INTERFACE SYSTEM Refer to clinic/hospital department * (ABNORMAL) POC GLUCOSE (12/10/2005 5:34 PM CDT) GLUCOSE POC 172(H) 65 - 109 mg/dL INTERFACE SYSTEM 12/10/2005 5:34 PM CDT us Wicho Gomez MD POINT OF CARE TESTING Final RUST Performing Organization Address [facility] Phone Number INTERFACE SYSTEM Refer [...] *corresponds to therapeutic range for unfractionated heparin 12/10/2005 1:35 PM CDT Result Roxie Gomez MD HEMATOLOGY ORDERABLES Final RUST Performing Organization Address [facility] Phone Number INTERFACE SYSTEM Refer to clinic/hospital department * (ABNORMAL) POC GLUCOSE (12/10/2005 12:04 PM CDT) [facility] GLUCOSE POC 150(H) 65 - 109 mg/dL INTERFACE SYSTEM 12/10/2005 12:0 4 PM CDT us Wicho Gomez MD POINT OF CARE TESTING Final RUST Performing Organization Address [facility] Phone Number INTERFACE SYSTEM Refer [...] *corresponds to therapeutic range for unfractionated heparin 12/10/2005 5:46 AM CDT Wicho Gomez MD HEMATOLOGY ORDERABLES Final RUST Performing Organization Address [facility] Phone Number INTERFACE SYSTEM Refer to clinic/hospital department * (ABNORMAL) POC GLUCOSE (12/10/2005 5:37 AM CDT) Pathologist [facility] GLUCOSE POC 61(L) 65 - 109 mg/dL INTERFACE SYSTEM 12/10/2005 5:37 AM CDT Wicho Gomez MD POINT OF CARE TESTING Final RUST Performing Organization Address [facility] Phone Number INTERFACE SYSTEM Refer to clinic/hospital department * (ABNORMAL) CBC WITH DIFFERENTIAL (12/10/2005 4:00 AM CDT) Pathologist [facility] NEUTROPHILS 72(H) 45 - 70 % INTERFAC [...] K/uL INTERFACE SYSTEM 12/10/2005 4:00 AM CDT us Wicho Gomez MD HEMATOLOGY ORDERABLES Final R [facility] Performing Organization Address [facility] Phone Number INTERFACE SYSTEM Refer to clinic/hospital department * (ABNORMAL) CBC WITH DIFFERENTIAL (12/10/2005 4:00 AM CDT) WBC 6.0 4.0 - 9.8 [...] fL INTERFACE SYSTEM 12/10/2005 4:00 AM CDT Wicho Gomez MD HEMATOLOGY ORDERABLES Final R esult Performing Organization Address [facility] Phone Number INTERFACE SYSTEM Refer to clinic/hospital department * PHOSPHORUS (12/10/2005 4:00 AM CDT) PHOSPHORUS 3.6 2.5 - 4.5 mg/dL INTERFACE SYSTEM 12/10/2005 4:00 AM CDT Wicho Gomez MD CHEMISTRY ORDERABLES Final Re sult Performing Organization Address [facility] Number INTERFACE SYSTEM Refer to clinic/hospital department * (ABNORMAL) CALCIUM IONIZED (12/10/2005 4:00 AM CDT) CALCIUM IONIZED 4.44(L) 4.76 - 5.16 mg/dL INTERFACE SYSTEM 12/10/2005 4:00 AM CDT Wicho Gomez MD CHEMISTRY ORDERABLES Final Re sult Performing Organization Address [facility] Phone Number INTERFACE SYSTEM Refer to clinic/hospital department * MAGNESIUM LEVEL (12/10/2005 4:00 AM CDT) MAGNESIUM 2.2 1.5 - 2.5 mg/dL INTERFACE SYSTEM 12/10/2005 4:00 AM CDT Wicho Gomez MD CHEMISTRY ORDERABLES Final Re sult Performing Organization Address [facility] Phone Number INTERFACE SYSTEM Refer [...] mmol/L INTERFACE SYSTEM 12/10/2005 4:00 AM CDT Wicho Gomez MD CHEMISTRY ORDERABLES Final Re sult Performing Organization Address [facility] Phone Number INTERFACE SYSTEM Refer [...] 50% INTERFACE SYSTEM 12/10/2005 4:00 AM CDT Wicho Gomez MD ABG ORDERABLES Final Result Performing Organization Address [facility] Phone Number INTERFACE SYSTEM Refer to clinic/hospital department * POC GLUCOSE (12/10/2005 12:01 AM CDT) GLUCOSE POC 109 65 - 109 mg/dL INTERFACE SYSTEM 12/10/2005 12:0 1 AM CDT Wicho Gomez MD POINT OF CARE TESTING Final R esult Performing Organization Address [place]/[facility] Phone Number INTERFACE SYSTEM Refer to clinic/hospital department * PTT (12/09/2005 10:09 PM CDT) PTT 32.5 24.4 - 36.4 Seconds INTERFACE SYSTEM Comment: PTT Therapeutic Range: Heparin Level PTT (seconds) <0.10 units/mL <53 0.10 - 0.30 units/mL 53 - 67 0.30 - 0.70 units/mL* 67 - 95* 0.70 - 1.00 units/mL 95 - 116 *corresponds to therapeutic range for unfractionated heparin 12/09/2005 10:0 9 PM CDT Romie Laughlin MD HEMATOLOGY ORDERABLES Final Result Performing Organization Address [facility] Phone Number INTERFACE SYSTEM Refer to clinic/hospital department * (ABNORMAL) POC GLUCOSE (12/09/2005 6:15 PM CDT) GLUCOSE POC 136(H) 65 - 109 mg/dL INTERFACE SYSTEM 12/09/2005 6:15 PM CDT us Wicho Gomez MD POINT OF CARE TESTING Final R esult Performing Organization Address [facility] Phone Number INTERFACE SYSTEM Refer [...] ABG ORDERABLES Final Result Performing Organization Address [place]/[facility] de Phone Number INTERFACE SYSTEM Refer to clinic/hospital department * (ABNORMAL) POC GLUCOSE (12/09/2005 2:55 PM CDT) GLUCOSE POC 124(H) 65 - 109 mg/dL INTERFACE SYSTEM 12/09/2005 2:55 PM CDT Wicho Gomez MD POINT OF CARE TESTING Final R esult Performing Organization Address [facility] de Phone Number INTERFACE SYSTEM Refer to [...] Rev. INTERFACE SYSTEM 12/09/2005 1:41 PM CDT Romie Laughlin MD HEMATOLOGY ORDERABLES Final Result Performing Organization Address [place]/[facility] Co de Phone Number [...] fL INTERFACE SYSTEM 12/09/2005 1:41 PM CDT Romie [...] patients with mechanical heart valves or post [place]. Pediatric (12 years and under): 1.5 - [...] *corresponds to therapeutic range for unfractionated heparin 12/09/2005 1:41 PM CDT Romie Laughlin MD HEMATOLOGY ORDERABLES Final Result Performing Organization Address [place]/[facility] Phone Number INTERFACE SYSTEM Refer to clinic/hospital department * PHOSPHORUS (12/09/2005 1:41 PM CDT) PHOSPHORUS 4.5 2.5 - 4.5 mg/dL INTERFACE SYSTEM 12/09/2005 1:41 PM CDT Romie Laughlin MD CHEMISTRY ORDERABLES Final R esult Performing Organization Address [facility] Phone Number INTERFACE SYSTEM Refer to clinic/hospital department * MAGNESIUM LEVEL (12/09/2005 1:41 PM CDT) MAGNESIUM 2.5 1.5 - 2.5 mg/dL INTERFACE SYSTEM 12/09/2005 1:41 PM CDT Romie Laughlin MD CHEMISTRY ORDERABLES Final R esult Performing Organization Address [facility] Phone Number INTERFACE SYSTEM Refer [...] ORDERABLES Final R esult Performing Organization Address [place]/[facility] de Phone Number INTERFACE SYSTEM Refer to clinic/hospital department * (ABNORMAL) CALCIUM IONIZED (12/09/2005 1:41 PM CDT) CALCIUM IONIZED 4.20(L) 4.76 - 5.16 mg/dL INTERFACE SYSTEM 12/09/2005 1:41 PM CDT Romie Laughlin MD CHEMISTRY ORDERABLES Final R esult Performing Organization Address [facility] de Phone Number INTERFACE SYSTEM Refer to [...] 12/09/2005 1:41 PM CDT Romie Laughlin MD ABG ORDERABLES Final Result Performing Organization Address [place]/[facility] de Phone Number INTERFACE SYSTEM Refer to [...] SYSTEM COMMENT, GASES POC NOTIFIED INTERFACE SYSTEM 12/09/2005 12:4 4 PM CDT Wicho Gomez MD CHEMISTRY ORDERABLES Final Re sult Performing Organization Address [place]/[facility]/ZIP Co de Phone Number INTERFACE SYSTEM Refer to clinic/hospital department * POC GLUCOSE (12/09/2005 6:05 AM CDT) [facility] GLUCOSE POC 87 65 - 109 mg/dL INTERFACE SYSTEM 12/09/2005 6:05 AM CDT Wicho Gomez MD POINT OF CARE TESTING Final R esult Performing Organization Address [facility]/ZIP Co de Phone Number INTERFACE SYSTEM [...] HEMATOLOGY ORDERABLES Final Result Performing Organization Address [facility] de Phone Number INTERFACE SYSTEM Refer to [...] HEMATOLOGY ORDERABLES Final Result Performing Organization Address [facility] de Phone Number INTERFACE SYSTEM Refer to [...] 40% INTERFACE SYSTEM 12/09/2005 3:25 AM CDT Romie Laughlin MD ABG ORDERABLES Final Result Performing Organization Address [facility] Phone Number INTERFACE SYSTEM Refer [...] patients with mechanical heart valves or post [place]. Pediatric (12 years and under): 1.5 - [...] *corresponds to therapeutic range for unfractionated heparin 12/09/2005 3:25 AM CDT Romie Laughlin MD HEMATOLOGY ORDERABLES Final Result Performing Organization Address [facility] Phone Number INTERFACE SYSTEM Refer to clinic/hospital department * PHOSPHORUS (12/09/2005 3:25 AM CDT) PHOSPHORUS 2.8 2.5 - 4.5 mg/dL INTERFACE SYSTEM 12/09/2005 3:25 AM CDT Romie Laughlin MD CHEMISTRY ORDERABLES Final R [facility] Performing Organization Address [facility] Phone Number INTERFACE SYSTEM Refer to clinic/hospital department * MAGNESIUM LEVEL (12/09/2005 3:25 AM CDT) MAGNESIUM 2.3 1.5 - 2.5 mg/dL INTERFACE SYSTEM 12/09/2005 3:25 AM CDT Romie Laughlin MD CHEMISTRY ORDERABLES Final R esult Performing Organization Address [facility] Phone Number INTERFACE SYSTEM Refer to clinic/hospital department * (ABNORMAL) CALCIUM IONIZED (12/09/2005 3:25 AM CDT) CALCIUM IONIZED 4.08(L) 4.76 - 5.16 mg/dL INTERFACE SYSTEM 12/09/2005 3:25 AM CDT us Romie Laughlin MD CHEMISTRY ORDERABLES Final R esult Performing Organization Address [facility] Phone Number INTERFACE SYSTEM Refer [...] mmol/L INTERFACE SYSTEM 12/09/2005 3:25 AM CDT us Romie Laughlin MD CHEMISTRY ORDERABLES Final R esult Performing Organization Address [facility] [facility] Phone Number INTERFACE SYSTEM Refer to clinic/hospital department * (ABNORMAL) POC GLUCOSE (12/09/2005 12:13 AM CDT) GLUCOSE POC 121(H) 65 - 109 mg/dL INTERFACE SYSTEM 12/09/2005 12:1 3 AM CDT Wicho Gomez MD POINT OF CARE TESTING Final R esult Performing Organization Address [facility] Phone Number INTERFACE SYSTEM Refer [...] *corresponds to therapeutic range for unfractionated heparin PROTIME 16.5(H) 12.7 - 15.1 Seconds INTERFACE SYSTEM INR 1.2(H) 0.9 - 1.1 INTERFACE SYSTEM Comment: INR Therapeutic Range: Adult: 2.0 - 3.0 for pulmonary embolism or prophylaxis against venous thrombosis or systemic embolization. 2.0 - 3.0 for patients with tissue heart valves. 2.5 - 3.5 for patients with mechanical heart valves or post [place]. Pediatric (12 years and under): 1.5 - 3.0 Although the target range in children is not well established , INR values of 1.5 - 3.0 are recommended for most patients. Higher values have been used in children with prosthetic cardiac valves and hereditary clotting disorders. (<3 days) therapeutic ranges have not been established. 12/08/2005 11:2 5 PM CDT Romie Laughlin MD HEMATOLOGY ORDERABLES Final Result Performing Organization Address [facility] Phone Number INTERFACE SYSTEM Refer to clinic/hospital department * (ABNORMAL) POC GLUCOSE (12/08/2005 5:09 PM CDT) GLUCOSE POC 158(H) 65 - 109 mg/dL INTERFACE SYSTEM 12/08/2005 5:09 PM CDT us Wicho Gomez MD POINT OF CARE TESTING Final R esult Performing Organization Address [place]/[facility] de Phone Number INTERFACE SYSTEM Refer to [...] patients with mechanical heart valves or post [place]. Pediatric (12 years and under): 1.5 - [...] *corresponds to therapeutic range for unfractionated heparin 12/08/2005 4:00 PM CDT us Romie Laughlin MD HEMATOLOGY ORDERABLES Final Result Performing Organization Address City/[facility] Co de Phone Number INTERFACE SYSTEM Refer to clinic/hospital department * (ABNORMAL) POC GLUCOSE (12/08/2005 11:19 AM CDT) GLUCOSE POC 152(H) 65 - 109 mg/dL INTERFACE SYSTEM 12/08/2005 11:1 9 AM CDT us Wicho Gomez MD POINT OF CARE TESTING Final R esult Performing Organization Address [place]/[facility] de Phone Number INTERFACE SYSTEM Refer to [...] patients with mechanical heart valves or post [place]. Pediatric (12 years and under): 1.5 - [...] *corresponds to therapeutic range for unfractionated heparin 12/08/2005 10:2 0 AM CDT us Romie Laughlin MD HEMATOLOGY ORDERABLES Final Result Performing Organization Address [place]/[facility] Co de Phone Number [...] *corresponds to therapeutic range for unfractionated heparin 12/08/2005 3:22 AM CDT Wicho Gomez MD HEMATOLOGY ORDERABLES Final R esult Performing Organization Address [facility] Phone Number INTERFACE SYSTEM Refer [...] 40 INTERFACE SYSTEM 12/08/2005 3:22 AM CDT Wicho Gomez MD ABG ORDERABLES Final Result Performing Organization Address [facility] INTERFACE SYSTEM Refer to [...] Slight INTERFACE SYSTEM 12/08/2005 3:22 AM CDT Romie Laughlin MD HEMATOLOGY ORDERABLES Final Result Performing Organization Address [facility] Phone Number INTERFACE SYSTEM Refer [...] HEMATOLOGY ORDERABLES Final Result Performing Organization Address [facility] Phone Number INTERFACE SYSTEM Refer to clinic/hospital department * (ABNORMAL) CALCIUM IONIZED (12/08/2005 3:22 AM CDT) CALCIUM IONIZED 4.28(L) 4.76 - 5.16 mg/dL INTERFACE SYSTEM 12/08/2005 3:22 AM CDT Romie Laughlin MD CHEMISTRY ORDERABLES Final R esult Performing Organization Address [facility] Phone Number INTERFACE SYSTEM Refer to clinic/hospital department * PHOSPHORUS (12/08/2005 3:22 AM CDT) PHOSPHORUS 2.5 2.5 - 4.5 mg/dL INTERFACE SYSTEM 12/08/2005 3:22 AM CDT Romie Laughlin MD CHEMISTRY ORDERABLES Final R esult Performing Organization Address [facility] Phone Number INTERFACE SYSTEM Refer to clinic/hospital department * MAGNESIUM LEVEL (12/08/2005 3:22 AM CDT) MAGNESIUM 2.2 1.5 - 2.5 mg/dL INTERFACE SYSTEM 12/08/2005 3:22 AM CDT Romie Laughlin MD CHEMISTRY ORDERABLES [facility] Performing Organization Address [facility] Phone Number INTERFACE SYSTEM Refer [...] R esult Performing Organization Address [facility] Phone Number INTERFACE SYSTEM Refer to clinic/hospital department * (ABNORMAL) POC GLUCOSE (12/08/2005 12:08 AM CDT) COMMENT, GLU POC Notified RN INTERFACE SYSTEM GLUCOSE POC 136(H) 65 - 109 mg/dL INTERFACE SYSTEM 12/08/2005 12:0 8 AM CDT us Wicho Gomez MD POINT OF CARE TESTING Final R esult Performing Organization Address [place]/[facility] de Phone Number INTERFACE SYSTEM Refer to [...] patients with mechanical heart valves or post [place]. Pediatric (12 years and under): 1.5 - [...] *corresponds to therapeutic range for unfractionated heparin 12/07/2005 9:58 PM CDT us Romie Laughlin MD HEMATOLOGY ORDERABLES Final Result Performing Organization Address [place]/[facility]/ZIP Co de Phone Number INTERFACE SYSTEM Refer to clinic/hospital department * (ABNORMAL) POC GLUCOSE (12/07/2005 5:10 PM CDT) GLUCOSE POC 207(H) 65 - 109 mg/dL INTERFACE SYSTEM 12/07/2005 5:10 PM CDT Wicho Gomez MD POINT OF CARE TESTING Final R esult Performing Organization Address [place]/[facility] de Phone Number INTERFACE SYSTEM Refer to [...] patients with mechanical heart valves or post [place]. Pediatric (12 years and under): 1.5 - [...] *corresponds to therapeutic range for unfractionated heparin 12/07/2005 4:00 PM CDT Romie Laughlin MD HEMATOLOGY ORDERABLES Final Result Performing Organization Address [facility] de Phone Number INTERFACE SYSTEM Refer to clinic/hospital department * (ABNORMAL) POC GLUCOSE (12/07/2005 12:14 PM CDT) GLUCOSE POC 138(H) 65 - 109 mg/dL INTERFACE SYSTEM 12/07/2005 12:1 4 PM CDT Wicho Gomez MD POINT OF CARE TESTING Final R esult Performing Organization Address [place]/[facility]/ZIP Co de Phone Number INTERFACE SYSTEM [...] *corresponds to therapeutic range for unfractionated heparin PROTIME 21.9(H) 12.7 - 15.1 Seconds INTERFACE SYSTEM INR 1.8(H) 0.9 - 1.1 INTERFACE SYSTEM Comment: INR Therapeutic Range: Adult: 2.0 - 3.0 for pulmonary embolism or prophylaxis against venous thrombosis or systemic embolization. 2.0 - 3.0 for patients with tissue heart valves. 2.5 - 3.5 for patients with mechanical heart valves or post [place]. Pediatric (12 years and under): 1.5 - [...] ORDERABLES Final Result Performing Organization Address [facility] Phone Number INTERFACE SYSTEM Refer to clinic/hospital department * (ABNORMAL) POC GLUCOSE (12/07/2005 5:52 AM CDT) COMMENT, GLU POC Notified RN INTERFACE SYSTEM GLUCOSE POC 110(H) 65 - 109 mg/dL INTERFACE SYSTEM 12/07/2005 5:52 AM CDT us Wicho Gomez MD POINT OF CARE TESTING Final R esult Performing Organization Address [facility] de Phone Number INTERFACE SYSTEM Refer to clinic/hospital department * (ABNORMAL) PTT (12/07/2005 3:20 AM CDT) PTT 48.1(H) 24.4 - 36.4 Seconds INTERFACE SYSTEM Comment: PTT Therapeutic Range: Heparin Level PTT (seconds) <0.10 units/mL <53 0.10 - 0.30 units/mL 53 - 67 0.30 - 0.70 units/mL* 67 - 95* 0.70 - 1.00 units/mL 95 - 116 *corresponds to therapeutic range for unfractionated heparin 12/07/2005 3:20 AM CDT Wicho Gomez MD HEMATOLOGY ORDERABLES Final R esult Performing Organization Address [facility] de Phone Number INTERFACE SYSTEM Refer to [...] ABG ORDERABLES Final Result Performing Organization Address [place]/[facility] de Phone Number INTERFACE SYSTEM Refer to [...] ORDERABLES Final R esult Performing Organization Address [place]/[facility] de Phone Number INTERFACE SYSTEM Refer to clinic/hospital department * PHOSPHORUS (12/07/2005 3:19 AM CDT) PHOSPHORUS 3.3 2.5 - 4.5 mg/dL INTERFACE SYSTEM 12/07/2005 3:19 AM CDT Wicho Gomez MD CHEMISTRY ORDERABLES Final Re sult Performing Organization Address [place]/[facility] de Phone Number INTERFACE SYSTEM Refer to clinic/hospital department * MAGNESIUM LEVEL (12/07/2005 3:19 AM CDT) MAGNESIUM 2.3 1.5 - 2.5 mg/dL INTERFACE SYSTEM 12/07/2005 3:19 AM CDT Wicho Gomez MD CHEMISTRY ORDERABLES Final Re sult Performing Organization Address [facility] Phone Number INTERFACE SYSTEM Refer to clinic/hospital department * (ABNORMAL) CALCIUM IONIZED (12/07/2005 3:19 AM CDT) CALCIUM IONIZED 4.08(L) 4.76 - 5.16 mg/dL INTERFACE SYSTEM 12/07/2005 3:19 AM CDT us Wicho Gomez MD CHEMISTRY ORDERABLES Final Re sult Performing Organization Address [facility] Phone Number INTERFACE SYSTEM Refer [...] mmol/L INTERFACE SYSTEM 12/07/2005 3:19 AM CDT us Wicho Gomez MD CHEMISTRY ORDERABLES Final Re sult Performing Organization Address [facility] Phone Number INTERFACE SYSTEM Refer to clinic/hospital department * (ABNORMAL) POC GLUCOSE (12/07/2005 12:24 AM CDT) COMMENT, GLU POC Notified RN INTERFACE SYSTEM GLUCOSE POC 140(H) 65 - 109 mg/dL INTERFACE SYSTEM 12/07/2005 12:2 4 AM CDT Result Roxie Gomez MD POINT OF CARE TESTING Final R esult Performing Organization Address [facility] Phone Number INTERFACE SYSTEM Refer to clinic/hospital department * PTT (12/06/2005 8:00 PM CDT) PTT 31.0 24.4 - 36.4 Seconds INTERFACE SYSTEM Comment: PTT Therapeutic Range: Heparin Level PTT (seconds) <0.10 units/mL <53 0.10 - 0.30 units/mL 53 - 67 0.30 - 0.70 units/mL* 67 - 95* 0.70 - 1.00 units/mL 95 - 116 *corresponds to therapeutic range for unfractionated heparin 12/06/2005 8:00 PM CDT us Wicho Gomez MD HEMATOLOGY ORDERABLES Final R [facility] Performing Organization Address [facility] Phone Number INTERFACE SYSTEM Refer to clinic/hospital department * (ABNORMAL) POC GLUCOSE (12/06/2005 6:34 PM CDT) GLUCOSE POC 132(H) 65 - 109 mg/dL INTERFACE SYSTEM 12/06/2005 6:34 PM CDT Result Roxie Gomez MD POINT OF CARE TESTING Final R esult Performing Organization Address [facility] Phone Number INTERFACE SYSTEM Refer to clinic/hospital department * (ABNORMAL) POC GLUCOSE (12/06/2005 11:40 AM CDT) GLUCOSE POC 139(H) 65 - 109 mg/dL INTERFACE SYSTEM 12/06/2005 11:4 0 AM CDT Result Roxie Gomez MD POINT OF CARE TESTING Final R esult Performing Organization Address [facility] Phone Number INTERFACE SYSTEM Refer [...] ABG ORDERABLES Final Result Performing Organization Address [facility] Phone Number INTERFACE SYSTEM Refer to clinic/hospital department * PHOSPHORUS (12/06/2005 10:20 AM CDT) PHOSPHORUS 3.8 2.5 - 4.5 mg/dL INTERFACE SYSTEM 12/06/2005 10:2 0 AM CDT us Wicho Gomez MD CHEMISTRY ORDERABLES Final Re sult Performing Organization Address [facility] Phone Number INTERFACE SYSTEM Refer to clinic/hospital department * MAGNESIUM LEVEL (12/06/2005 10:20 AM CDT) MAGNESIUM 2.2 1.5 - 2.5 mg/dL INTERFACE SYSTEM 12/06/2005 10:2 0 AM CDT us Wicho Gomez MD CHEMISTRY ORDERABLES Final Re sult Performing Organization Address [facility] de Phone Number INTERFACE SYSTEM Refer to clinic/hospital department * (ABNORMAL) CALCIUM IONIZED (12/06/2005 10:20 AM CDT) CALCIUM IONIZED 3.84(L) 4.76 - 5.16 mg/dL INTERFACE SYSTEM 12/06/2005 10:2 0 AM CDT us Wicho Gomez MD CHEMISTRY ORDERABLES Final Re sult Performing Organization Address [facility] Phone Number INTERFACE SYSTEM Refer to clinic/hospital department * (ABNORMAL) BASIC METABOLIC PANEL (12/06/2005 10:20 AM CDT) Pathologist [facility] GLUCOSE 128(H) 65 - 99 mg/dL INTERFACE [...] INTERFACE SYSTEM 12/06/2005 10:2 0 AM CDT Wicho Gomez MD CHEMISTRY ORDERABLES [facility] Performing Organization Address [facility] Phone Number INTERFACE SYSTEM Refer to clinic/hospital department * (ABNORMAL) CBC WITH DIFFERENTIAL (12/06/2005 10:20 AM CDT) [facility] NEUTROPHIL ABSOLUTE 7.57(H) 1.90 - 7.00 K/uL [...] CINDY SYSTEM BASOPHILIC STIPPLING Slight INTERFACE SYSTEM 12/06/2005 10:2 0 AM CDT Wicho Gomez MD HEMATOLOGY ORDERABLES Final R esult Performing Organization Address City/State/[facility] Co de Phone Number INTERFACE SYSTEM Refer to clinic/hospital department * (ABNORMAL) CBC WITH DIFFERENTIAL (12/06/2005 10:20 AM CDT) WBC 8.7 4.0 - 9.8 K/uL INTERFACE [...] INTERFACE SYSTEM 12/06/2005 10:2 0 AM CDT Wicho Gomez MD HEMATOLOGY ORDERABLES Final R esult Performing Organization Address [place]/[facility] Phone Number INTERFACE SYSTEM Refer to clinic/hospital department * (ABNORMAL) POC GLUCOSE (12/06/2005 9:40 AM CDT) GLUCOSE POC 135(H) 65 - 109 mg/dL INTERFACE SYSTEM 12/06/2005 9:40 AM CDT Wicho Gomez MD POINT OF CARE TESTING Final R esult Performing Organization Address [place]/[facility] Co de Phone Number [...] COMMENT, GASES POC NOTIFIED MD INTERFACE SYSTEM 12/06/2005 9:32 AM CDT Wicho Gomez MD CHEMISTRY ORDERABLES [...] 48.0 % INTERFACE SYSTEM COMMENT, GASES POC MD NOTIFIED INTERFACE SYSTEM 12/06/2005 8:10 AM CDT Wicho Gomez MD CHEMISTRY ORDERABLES Final Re sult Performing Organization Address [facility] de Phone Number INTERFACE SYSTEM Refer to clinic/hospital department * (ABNORMAL) POC GLUCOSE (12/06/2005 5:19 AM CDT) COMMENT, GLU POC Notified RN INTERFACE SYSTEM GLUCOSE POC 141(H) 65 - 109 mg/dL INTERFACE SYSTEM 12/06/2005 5:19 AM CDT us Wicho Gomez MD POINT OF CARE TESTING Final R esult Performing Organization Address [facility] de Phone Number INTERFACE SYSTEM Refer to [...] 40 INTERFACE SYSTEM 12/06/2005 3:15 AM CDT us Romie Laughlin MD ABG ORDERABLES Final Result Performing Organization Address [facility] Phone Number INTERFACE SYSTEM Refer [...] HEMATOLOGY ORDERABLES Final Result Performing Organization Address [place]/[facility] Co de Phone Number [...] INTERFACE SYSTEM 12/06/2005 3:15 AM CDT Romie Laguhlin MD HEMATOLOGY ORDERABLES Final Result Performing Organization Address [place]/[facility] Co de Phone Number INTERFACE SYSTEM Refer to clinic/hospital department * PHOSPHORUS (12/06/2005 3:15 AM CDT) PHOSPHORUS 3.6 2.5 - 4.5 mg/dL INTERFACE SYSTEM 12/06/2005 3:15 AM CDT Romie Laughlin MD CHEMISTRY ORDERABLES Final R esult Performing Organization Address [facility] de Phone Number INTERFACE SYSTEM Refer to clinic/hospital department * (ABNORMAL) MAGNESIUM LEVEL (12/06/2005 3:15 AM CDT) MAGNESIUM 2.6(H) 1.5 - 2.5 mg/dL INTERFACE SYSTEM 12/06/2005 3:15 AM CDT Romie Laughlin MD CHEMISTRY ORDERABLES Final R esult Performing Organization Address [facility] de Phone Number INTERFACE SYSTEM Refer to clinic/hospital department * (ABNORMAL) CALCIUM IONIZED (12/06/2005 3:15 AM CDT) CALCIUM IONIZED 3.92(L) 4.76 - 5.16 mg/dL INTERFACE SYSTEM 12/06/2005 3:15 AM CDT Romie Laughlin MD CHEMISTRY ORDERABLES Final R [facility] Performing Organization Address [facility] de Phone Number INTERFACE SYSTEM Refer to [...] by repeat analysis. 12/06/2005 3:15 AM CDT Romie Laughlin MD CHEMISTRY ORDERABLES Final R esult Performing Organization Address [facility] Phone Number INTERFACE SYSTEM Refer to clinic/hospital department * (ABNORMAL) POC GLUCOSE (12/06/2005 12:19 AM CDT) COMMENT, GLU POC Notified RN INTERFACE SYSTEM GLUCOSE POC 137(H) 65 - 109 mg/dL INTERFACE SYSTEM 12/06/2005 12:1 9 AM CDT us Wicho Gomez MD POINT OF CARE TESTING Final R [facility] Performing Organization Address [facility] de Phone Number INTERFACE SYSTEM Refer to clinic/hospital department * PTT (12/05/2005 6:42 PM CDT) PTT 29.7 24.4 - 36.4 Seconds INTERFACE SYSTEM Comment: PTT Therapeutic Range: Heparin Level PTT (seconds) <0.10 units/mL <53 0.10 - 0.30 units/mL 53 - 67 0.30 - 0.70 units/mL* 67 - 95* 0.70 - 1.00 units/mL 95 - 116 *corresponds to therapeutic range for unfractionated heparin 12/05/2005 6:42 PM CDT us Wicho Gomez MD HEMATOLOGY ORDERABLES Final R [facility] Performing Organization Address [facility] Phone Number INTERFACE SYSTEM Refer to clinic/hospital department * (ABNORMAL) POC GLUCOSE (12/05/2005 6:05 PM CDT) GLUCOSE POC 133(H) 65 - 109 mg/dL INTERFACE SYSTEM 12/05/2005 6:05 PM CDT us Wicho Gomez MD POINT OF CARE TESTING Final R [facility] Performing Organization Address [facility] de Phone Number INTERFACE SYSTEM Refer to clinic/hospital department * (ABNORMAL) BLOOD GAS ARTERIAL (12/05/2005 4:15 PM CDT) PH ARTERIAL 7.39 7.35 - 7.45 [...] ABG ORDERABLES Final Result Performing Organization Address [facility] de Phone Number INTERFACE SYSTEM Refer to clinic/hospital department * (ABNORMAL) CBC WITH DIFFERENTIAL (12/05/2005 4:00 PM CDT) NEUTROPHIL ABSOLUTE 7.25(H) 1.90 - 7.00 K/uL [...] HEMATOLOGY ORDERABLES Final Result Performing Organization Address [facility] de Phone Number INTERFACE SYSTEM Refer to clinic/hospital department * (ABNORMAL) CBC WITH DIFFERENTIAL (12/05/2005 4:00 PM CDT) WBC 7.8 4.0 - 9.8 K/uL [...] HEMATOLOGY ORDERABLES Final Result Performing Organization Address [facility] Phone Number INTERFACE SYSTEM Refer to clinic/hospital department * (ABNORMAL) PREALBUMIN (12/05/2005 4:00 PM CDT) PREALBUMIN 7(L) 20 - 40 mg/dL INTERFACE SYSTEM 12/05/2005 4:00 PM CDT Romie Laughlin MD CHEMISTRY ORDERABLES Final R esult Performing Organization Address [place]/[facility] Phone Number INTERFACE SYSTEM Refer to clinic/hospital department * (ABNORMAL) TRANSFERRIN (12/05/2005 4:00 PM CDT) TRANSFERRIN 79(L) 200 - 360 mg/dL INTERFACE SYSTEM 12/05/2005 4:00 PM CDT Romie Laughlin MD CHEMISTRY ORDERABLES Final R esult Performing Organization Address [place]/[facility] de Phone Number INTERFACE SYSTEM Refer to clinic/hospital department * PHOSPHORUS (12/05/2005 4:00 PM CDT) PHOSPHORUS 4.1 2.5 - 4.5 mg/dL INTERFACE SYSTEM 12/05/2005 4:00 PM CDT Romie Laughlin MD CHEMISTRY ORDERABLES Final R esult Performing Organization Address [facility] Phone Number INTERFACE SYSTEM Refer to clinic/hospital department * MAGNESIUM LEVEL (12/05/2005 4:00 PM CDT) MAGNESIUM 2.4 1.5 - 2.5 mg/dL INTERFACE SYSTEM 12/05/2005 4:00 PM CDT Romie Laughlin MD CHEMISTRY ORDERABLES Final R esult Performing Organization Address [facility] Phone Number INTERFACE SYSTEM Refer to clinic/hospital department * (ABNORMAL) CALCIUM IONIZED (12/05/2005 4:00 PM CDT) CALCIUM IONIZED 4.08(L) 4.76 - 5.16 mg/dL INTERFACE SYSTEM 12/05/2005 4:00 PM CDT Romie Laughlin MD CHEMISTRY ORDERABLES Final R esult Performing Organization Address [facility] Phone Number INTERFACE SYSTEM Refer [...] R esult Performing Organization Address [facility] de Phone Number INTERFACE SYSTEM Refer to [...] patients with mechanical heart valves or post [place]. Pediatric (12 years and under): 1.5 - [...] *corresponds to therapeutic range for unfractionated heparin 12/05/2005 11:3 1 AM CDT Romie Laughlin MD HEMATOLOGY ORDERABLES Final Result Performing Organization Address [facility] de Phone Number INTERFACE SYSTEM Refer to clinic/hospital department * (ABNORMAL) POC GLUCOSE (12/05/2005 11:30 AM CDT) GLUCOSE POC 130(H) 65 - 109 mg/dL INTERFACE SYSTEM 12/05/2005 11:3 0 AM CDT Wicho Gomez MD POINT OF CARE TESTING Final R esult Performing Organization Address [facility] Phone Number INTERFACE SYSTEM Refer to clinic/hospital department * POC GLUCOSE (12/05/2005 6:00 AM CDT) GLUCOSE POC 91 65 - 109 mg/dL INTERFACE SYSTEM 12/05/2005 6:00 AM CDT Wicho Gomez MD POINT OF CARE TESTING Final R esult Performing Organization Address [facility] Phone Number INTERFACE SYSTEM Refer [...] HEMATOLOGY ORDERABLES Final Result Performing Organization Address [facility] Phone Number INTERFACE SYSTEM Refer [...] HEMATOLOGY ORDERABLES Final Result Performing Organization Address [facility] Phone Number INTERFACE SYSTEM Refer to clinic/hospital department * PHOSPHORUS (12/05/2005 4:00 AM CDT) PHOSPHORUS 4.5 2.5 - 4.5 mg/dL INTERFACE SYSTEM 12/05/2005 4:00 AM CDT Romie Laughlin MD CHEMISTRY ORDERABLES Final R esult Performing Organization Address [facility] Phone Number INTERFACE SYSTEM Refer to clinic/hospital department * MAGNESIUM LEVEL (12/05/2005 4:00 AM CDT) MAGNESIUM 2.4 1.5 - 2.5 mg/dL INTERFACE SYSTEM 12/05/2005 4:00 AM CDT Romie Laughlin MD CHEMISTRY ORDERABLES Final R esult Performing Organization Address City/[facility] Phone Number INTERFACE SYSTEM Refer to clinic/hospital department * (ABNORMAL) CALCIUM IONIZED (12/05/2005 4:00 AM CDT) CALCIUM IONIZED 3.88(L) 4.76 - 5.16 mg/dL INTERFACE SYSTEM 12/05/2005 4:00 AM CDT Romie Laughlin MD CHEMISTRY ORDERABLES Final R esult Performing Organization Address [facility] de Phone Number INTERFACE SYSTEM Refer to [...] R esult Performing Organization Address [facility] de Phone Number INTERFACE SYSTEM Refer to [...] 40 INTERFACE SYSTEM 12/05/2005 3:40 AM CDT Harshad Heller MD ABG ORDERABLES Final Result Performing Organization Address City/[facility] Co de Phone Number INTERFACE SYSTEM Refer to clinic/hospital department * (ABNORMAL) POC GLUCOSE (12/04/2005 11:57 PM CDT) COMMENT, GLU POC Notified RN INTERFACE SYSTEM GLUCOSE POC 130(H) 65 - 109 mg/dL INTERFACE SYSTEM 12/04/2005 11:5 7 PM CDT Wicho Gomez MD POINT OF CARE TESTING Final R esult Performing Organization Address [facility] Phone Number INTERFACE SYSTEM Refer [...] INTERFACE SYSTEM 12/04/2005 11:5 6 PM CDT Romie Laughlin MD ABG ORDERABLES Final Result Performing Organization Address [facility] Phone Number INTERFACE SYSTEM Refer to clinic/hospital department * (ABNORMAL) POC GLUCOSE (12/04/2005 5:41 PM CDT) GLUCOSE POC 165(H) 65 - 109 mg/dL INTERFACE SYSTEM 12/04/2005 5:41 PM CDT Wicho Gomez MD POINT OF CARE TESTING Final R esult Performing Organization Address [facility] Phone Number INTERFACE SYSTEM Refer [...] range for unfractionated heparin Results called to sea at 12/04/2005 6:44 PM and read back verified. 12/04/2005 5:40 PM CDT Romie Laughlin MD HEMATOLOGY ORDERABLES Final Result Performing Organization Address [facility] Phone Number INTERFACE SYSTEM Refer to clinic/hospital department * (ABNORMAL) POC GLUCOSE (12/04/2005 4:06 PM CDT) GLUCOSE POC 182(H) 65 - 109 mg/dL INTERFACE SYSTEM 12/04/2005 4:06 PM CDT Wicho Gomez MD POINT OF CARE TESTING Final R esult Performing Organization Address [facility] Phone Number INTERFACE SYSTEM Refer [...] 40% INTERFACE SYSTEM 12/04/2005 2:51 PM CDT Wicho Gomez MD ABG ORDERABLES Final Result Performing Organization Address [facility] Phone Number INTERFACE SYSTEM Refer to clinic/hospital department * (ABNORMAL) POC GLUCOSE (12/04/2005 12:04 PM CDT) GLUCOSE POC 156(H) 65 - 109 mg/dL INTERFACE SYSTEM 12/04/2005 12:0 4 PM CDT Wicho Gomez MD POINT OF CARE TESTING Final R esult Performing Organization Address City/[facility] Phone Number INTERFACE SYSTEM Refer [...] *corresponds to therapeutic range for unfractionated heparin 12/04/2005 9:50 AM CDT Romie Laughlin MD HEMATOLOGY ORDERABLES Final Result Performing Organization Address [facility] Phone Number INTERFACE SYSTEM Refer to clinic/hospital department * POC GLUCOSE (12/04/2005 9:26 AM CDT) GLUCOSE POC 92 65 - 109 mg/dL INTERFACE SYSTEM 12/04/2005 9:26 AM CDT Wicho Gomez MD POINT OF CARE TESTING Final R esult Performing Organization Address [facility] Phone Number INTERFACE SYSTEM Refer to clinic/hospital department * (ABNORMAL) POC GLUCOSE (12/04/2005 6:00 AM CDT) GLUCOSE POC 148(H) 65 - 109 mg/dL INTERFACE SYSTEM 12/04/2005 6:00 AM CDT Wicho Gomez MD POINT OF CARE TESTING Final R esult Performing Organization Address [facility] Phone Number INTERFACE SYSTEM Refer [...] ABG ORDERABLES Final Result Performing Organization Address [facility] Phone Number INTERFACE SYSTEM Refer [...] HEMATOLOGY ORDERABLES Final Result Performing Organization Address [facility] de Phone Number INTERFACE SYSTEM Refer to [...] range for unfractionated heparin Results called to princess at 12/04/2005 3:56 [...] patients with mechanical heart valves or post [place]. Pediatric (12 years and under): 1.5 - [...] HEMATOLOGY ORDERABLES Final Result Performing Organization Address [facility] Phone Number INTERFACE SYSTEM Refer to clinic/hospital department * (ABNORMAL) PHOSPHORUS (12/04/2005 3:10 AM CDT) PHOSPHORUS 5.1(H) 2.5 - 4.5 mg/dL INTERFACE SYSTEM 12/04/2005 3:10 AM CDT Romie Laughlin MD CHEMISTRY ORDERABLES Final R esult Performing Organization Address [facility] Phone Number INTERFACE SYSTEM Refer to clinic/hospital department * MAGNESIUM LEVEL (12/04/2005 3:10 AM CDT) MAGNESIUM 2.3 1.5 - 2.5 mg/dL INTERFACE SYSTEM 12/04/2005 3:10 AM CDT Romie Laughlin MD CHEMISTRY ORDERABLES Final R esult Performing Organization Address [facility] Phone Number INTERFACE SYSTEM Refer to clinic/hospital department * (ABNORMAL) CALCIUM IONIZED (12/04/2005 3:10 AM CDT) CALCIUM IONIZED 4.20(L) 4.76 - 5.16 mg/dL INTERFACE SYSTEM 12/04/2005 3:10 AM CDT Romie Laughlin MD CHEMISTRY ORDERABLES Final R esult Performing Organization Address [facility] Phone Number INTERFACE SYSTEM Refer [...] R esult Performing Organization Address [facility] de Phone Number INTERFACE SYSTEM Refer to clinic/hospital department * (ABNORMAL) POC GLUCOSE (12/04/2005 12:06 AM CDT) GLUCOSE POC 111(H) 65 - 109 mg/dL INTERFACE SYSTEM 12/04/2005 12:0 6 AM CDT us Wicho Gomez MD POINT OF CARE TESTING Final R esult Performing Organization Address [facility] Phone Number INTERFACE SYSTEM Refer [...] patients with mechanical heart valves or post [place]. Pediatric (12 years and under): 1.5 - [...] *corresponds to therapeutic range for unfractionated heparin 12/03/2005 10:0 0 PM CDT Romie Laughlin MD HEMATOLOGY ORDERABLES Final Result Performing Organization Address [facility] de Phone Number INTERFACE SYSTEM Refer to clinic/hospital department * (ABNORMAL) POC GLUCOSE (12/03/2005 4:58 PM CDT) COMMENT, GLU POC Notified RN INTERFACE SYSTEM GLUCOSE POC 117(H) 65 - 109 mg/dL INTERFACE SYSTEM 12/03/2005 4:58 PM CDT Wicho Gomez MD POINT OF CARE TESTING Final R esult Performing Organization Address [facility] Phone Number INTERFACE SYSTEM Refer [...] HEMATOLOGY ORDERABLES Final Result Performing Organization Address [facility] de Phone Number INTERFACE SYSTEM Refer to [...] HEMATOLOGY ORDERABLES Final Result Performing Organization Address [facility] de Phone Number INTERFACE SYSTEM Refer to clinic/hospital department * PHOSPHORUS (12/03/2005 3:36 PM CDT) PHOSPHORUS 4.3 2.5 - 4.5 mg/dL INTERFACE SYSTEM 12/03/2005 3:36 PM CDT Romie Laughlin MD CHEMISTRY ORDERABLES Final R esult Performing Organization Address [place]/[facility] de Phone Number INTERFACE SYSTEM Refer to clinic/hospital department * MAGNESIUM LEVEL (12/03/2005 3:36 PM CDT) MAGNESIUM 2.3 1.5 - 2.5 mg/dL INTERFACE SYSTEM 12/03/2005 3:36 PM CDT Romie Laughlin MD CHEMISTRY ORDERABLES Final R esult Performing Organization Address City/[facility]/ZIP Co de Phone Number INTERFACE SYSTEM Refer to clinic/hospital department * (ABNORMAL) CALCIUM IONIZED (12/03/2005 3:36 PM CDT) CALCIUM IONIZED 4.08(L) 4.76 - 5.16 mg/dL INTERFACE SYSTEM 12/03/2005 3:36 PM CDT Romie Laughlin MD CHEMISTRY ORDERABLES Final R esult Performing Organization Address [facility] Phone Number INTERFACE SYSTEM Refer [...] R esult Performing Organization Address [facility] Phone Number INTERFACE SYSTEM Refer to clinic/hospital department * (ABNORMAL) POC GLUCOSE (12/03/2005 11:14 AM CDT) COMMENT, GLU POC Notified RN INTERFACE SYSTEM GLUCOSE POC 116(H) 65 - 109 mg/dL INTERFACE SYSTEM 12/03/2005 11:1 4 AM CDT Wicho Gomez MD POINT OF CARE TESTING Final R esult Performing Organization Address [facility] Phone Number INTERFACE SYSTEM Refer [...] *corresponds to therapeutic range for unfractionated heparin 12/03/2005 4:15 AM CDT Wicho Gomez MD HEMATOLOGY ORDERABLES Final R esult Performing Organization Address [facility] de Phone Number INTERFACE SYSTEM Refer to clinic/hospital department * (ABNORMAL) BLOOD GAS ARTERIAL (12/03/2005 4:15 AM CDT) Pathologist [facility] PH ARTERIAL 7.38 7.35 - 7.45 INTERFACE [...] ABG ORDERABLES Final Result Performing Organization Address [facility] Phone Number INTERFACE SYSTEM Refer to clinic/hospital department * (ABNORMAL) CBC WITH DIFFERENTIAL (12/03/2005 4:15 AM CDT) Pathologist [facility] NEUTROPHIL ABSOLUTE 8.51(H) 1.90 - 7.00 K/uL [...] INTERFA CE SYSTEM 12/03/2005 4:15 AM CDT Harshad Heller [...] ORDERABLES Final Resu lt Performing Organization Address [facility] Phone Number INTERFACE SYSTEM Refer to clinic/hospital department * MAGNESIUM LEVEL (12/03/2005 4:15 AM CDT) MAGNESIUM 2.4 1.5 - 2.5 mg/dL INTERFACE SYSTEM 12/03/2005 4:15 AM CDT Harshad Heller MD CHEMISTRY ORDERABLES Final Resu lt Performing Organization Address [facility] Phone Number INTERFACE SYSTEM Refer to clinic/hospital department * (ABNORMAL) CALCIUM IONIZED (12/03/2005 4:15 AM CDT) CALCIUM IONIZED 4.00(L) 4.76 - 5.16 mg/dL INTERFACE SYSTEM 12/03/2005 4:15 AM CDT Harshad Heller MD CHEMISTRY ORDERABLES Final Resu lt Performing Organization Address [facility] Phone Number INTERFACE SYSTEM Refer [...] mmol/L INTERFACE SYSTEM 12/03/2005 4:15 AM CDT Harshad Heller MD CHEMISTRY ORDERABLES Final Resu lt Performing Organization Address [facility] Phone Number INTERFACE SYSTEM Refer to clinic/hospital department * (ABNORMAL) POC GLUCOSE (12/03/2005 12:22 AM CDT) COMMENT, GLU POC Notified RN INTERFACE SYSTEM GLUCOSE POC 168(H) 65 - 109 mg/dL INTERFACE SYSTEM 12/03/2005 12:2 2 AM CDT Wicho Gomez MD POINT OF CARE TESTING Final R esult Performing Organization Address [facility] de Phone Number INTERFACE SYSTEM Refer to [...] R esult Performing Organization Address [facility] de Phone Number INTERFACE SYSTEM Refer to [...] R esult Performing Organization Address [facility] Phone Number INTERFACE SYSTEM Refer [...] Re sult Performing Organization Address [facility] Phone Number INTERFACE SYSTEM Refer to clinic/hospital department * (ABNORMAL) PHOSPHORUS (12/02/2005 9:27 PM CDT) PHOSPHORUS 4.6(H) 2.5 - 4.5 mg/dL INTERFACE SYSTEM 12/02/2005 9:27 PM CDT Wicho Gomez MD CHEMISTRY ORDERABLES Final Re sult Performing Organization Address [facility] de Phone Number INTERFACE SYSTEM Refer to clinic/hospital department * (ABNORMAL) CALCIUM IONIZED (12/02/2005 9:27 PM CDT) CALCIUM IONIZED 4.12(L) 4.76 - 5.16 mg/dL INTERFACE SYSTEM 12/02/2005 9:27 PM CDT Wicho Gomez MD CHEMISTRY ORDERABLES Final Re sult Performing Organization Address [facility] de Phone Number INTERFACE SYSTEM Refer to [...] ABG ORDERABLES Final Result Performing Organization Address [facility] de Phone Number INTERFACE SYSTEM Refer to [...] patients with mechanical heart valves or post [place]. Pediatric (12 years and under): 1.5 - [...] *corresponds to therapeutic range for unfractionated heparin 12/02/2005 9:27 PM CDT Harshad Heller MD HEMATOLOGY ORDERABLES Final Res ult Performing Organization Address [facility] Phone Number INTERFACE SYSTEM Refer to clinic/hospital department * (ABNORMAL) POC GLUCOSE (12/02/2005 5:34 PM CDT) GLUCOSE POC 123(H) 65 - 109 mg/dL INTERFACE SYSTEM 12/02/2005 5:34 PM CDT Wicho Gomez MD POINT OF CARE TESTING Final R esult Performing Organization Address [facility] Phone Number INTERFACE SYSTEM Refer to clinic/hospital department * (ABNORMAL) CALCIUM IONIZED (12/02/2005 3:01 PM CDT) CALCIUM IONIZED 3.88(L) 4.76 - 5.16 mg/dL INTERFACE SYSTEM 12/02/2005 3:01 PM CDT Harshad Heller MD CHEMISTRY ORDERABLES Final Resu lt Performing Organization Address [facility] Phone Number INTERFACE SYSTEM Refer [...] ABG ORDERABLES Final Result Performing Organization Address City/[facility] Co de Phone Number [...] ABG ORDERABLES Final Result Performing Organization Address [facility] Phone Number INTERFACE SYSTEM Refer to clinic/hospital department * PHOSPHORUS (12/02/2005 12:30 PM CDT) PHOSPHORUS 2.8 2.5 - 4.5 mg/dL INTERFACE SYSTEM 12/02/2005 12:3 0 PM CDT Harshad Heller MD CHEMISTRY ORDERABLES Final Resu lt Performing Organization Address City/[facility] Co de Phone Number INTERFACE SYSTEM Refer to clinic/hospital department * (ABNORMAL) MAGNESIUM LEVEL (12/02/2005 12:30 PM CDT) MAGNESIUM 1.2(L) 1.5 - 2.5 mg/dL INTERFACE SYSTEM 12/02/2005 12:3 0 PM CDT Harshad Heller MD CHEMISTRY ORDERABLES Final Resu lt Performing Organization Address [facility] Phone Number INTERFACE SYSTEM Refer to clinic/hospital department * (ABNORMAL) CALCIUM IONIZED (12/02/2005 12:30 PM CDT) Pathologist [facility] CALCIUM IONIZED 4.00(L) 4.76 - 5.16 mg/dL INTERFACE SYSTEM 12/02/2005 12:3 0 PM CDT Harshad Heller MD CHEMISTRY ORDERABLES Final Resu Performing Organization Address [facility] Phone Number INTERFACE SYSTEM Refer to clinic/hospital department * (ABNORMAL) BASIC METABOLIC PANEL (12/02/2005 12:30 PM CDT) [facility] GLUCOSE 89 65 - 99 mg/dL INTERFACE [...] Resu lt Performing Organization Address [facility] Phone Number INTERFACE SYSTEM Refer to clinic/hospital department * (ABNORMAL) CBC WITH DIFFERENTIAL (12/02/2005 12:30 PM CDT) Pathologist [facility] NEUTROPHIL ABSOLUTE 13.44(H) 1.90 - 7.00 K/uL [...] CINDY SYSTEM 12/02/2005 12:3 0 PM CDT us Harshad Heller MD HEMATOLOGY ORDERABLES Final Res ult Performing Organization Address City/[facility] Co de Phone Number [...] 48.0 % INTERFACE SYSTEM COMMENT, GASES POC MD NOTIFIED INTERFACE SYSTEM 12/02/2005 11:1 2 AM CDT Wicho Gomez MD CHEMISTRY ORDERABLES Final Re sult Performing Organization Address [facility] Phone Number INTERFACE SYSTEM Refer to clinic/hospital department * POC GLUCOSE (12/02/2005 8:10 AM CDT) GLUCOSE POC 105 65 - 109 mg/dL INTERFACE SYSTEM COMMENT 4, GLU POC Rptd gluc at no charge INTERFACE SYSTEM 12/02/2005 8:10 AM CDT Wicho Gomez MD POINT OF CARE TESTING Final R esult Performing Organization Address [facility] Phone Number INTERFACE SYSTEM Refer to clinic/hospital department * (ABNORMAL) POC GLUCOSE (12/02/2005 8:08 AM CDT) COMMENT, GLU POC Notified RN INTERFACE SYSTEM GLUCOSE POC 36(AA) 65 - 109 mg/dL INTERFACE SYSTEM COMMENT 4, GLU POC Glucose to be verified INTERFACE SYSTEM 12/02/2005 8:08 AM CDT Wicho Gomez MD POINT OF CARE TESTING Final R esult Performing Organization Address [facility] de Phone Number INTERFACE SYSTEM Refer to [...] 50% INTERFACE SYSTEM 12/02/2005 4:15 AM CDT Wicho Gomez MD ABG ORDERABLES Final Result Performing Organization Address [facility] Phone Number INTERFACE SYSTEM Refer to clinic/hospital department * (ABNORMAL) CBC WITH DIFFERENTIAL (12/02/2005 4:15 AM CDT) NEUTROPHIL ABSOLUTE 7.87(H) 1.90 - 7.00 K/uL [...] INTERFA CE SYSTEM 12/02/2005 4:15 AM CDT us Harshad Heller MD HEMATOLOGY ORDERABLES Final Res ult Performing Organization Address City/State/[facility] Co de Phone Number INTERFACE SYSTEM Refer to clinic/hospital department * (ABNORMAL) CBC WITH DIFFERENTIAL (12/02/2005 4:15 AM CDT) WBC 9.6 4.0 - 9.8 K/uL INTERFACE [...] fL INTERFACE SYSTEM 12/02/2005 4:15 AM CDT us Harshad Heller MD HEMATOLOGY ORDERABLES Final Res ult Performing Organization Address [facility] de Phone Number INTERFACE SYSTEM Refer to clinic/hospital department * BRAIN NATRIURETIC PEPTIDE, BNP OR PROBNP (12/02/2005 4:15 AM CDT) PRO-BNP 2548 pg/mL INTERFACE SYSTEM Comment: proBNP Interpretation: Reference values for screening purposes based on digital solution architect's recommendation: Patients less than 75 years: <125 pg/mL Patients 75 years and older: <450 pg/mL Reference values for determination of acute congestive heart failure in dyspneic patients based on PRIDE study (AM J Cardiol 2005;95:948): Patients less than 50 years: <450 pg/mL (Negative predictive value= 99%) Patients 50 years and older: <900 pg/mL (Negative predictive value= 92%) Rule out cutpoint, all ages: <300 pg/mL (Negative predictive value= 99% ) 12/02/2005 4:15 AM CDT us Wicho Gomez MD CHEMISTRY ORDERABLES Final Re sult Performing Organization Address [facility] Phone Number INTERFACE SYSTEM Refer [...] *corresponds to therapeutic range for unfractionated heparin PROTIME 17.7(H) 12.7 - 15.1 Seconds INTERFACE SYSTEM INR 1.4(H) 0.9 - 1.1 INTERFACE SYSTEM Comment: INR Therapeutic Range: Adult: 2.0 - 3.0 for pulmonary embolism or prophylaxis against venous thrombosis or systemic embolization. 2.0 - 3.0 for patients with tissue heart valves. 2.5 - 3.5 for patients with mechanical heart valves or post [place]. Pediatric (12 years and under): 1.5 - [...] Res ult Performing Organization Address [facility] de Phone Number INTERFACE SYSTEM Refer to clinic/hospital department * (ABNORMAL) CALCIUM IONIZED (12/02/2005 4:15 AM CDT) CALCIUM IONIZED 4.00(L) 4.76 - 5.16 mg/dL INTERFACE SYSTEM 12/02/2005 4:15 AM CDT Harshad Heller MD CHEMISTRY ORDERABLES Final Resu lt Performing Organization Address [facility] Phone Number INTERFACE SYSTEM Refer to clinic/hospital department * PHOSPHORUS (12/02/2005 4:15 AM CDT) PHOSPHORUS 4.0 2.5 - 4.5 mg/dL INTERFACE SYSTEM 12/02/2005 4:15 AM CDT Harshad Heller MD CHEMISTRY ORDERABLES Final Resu lt Performing Organization Address [facility] Phone Number INTERFACE SYSTEM Refer to clinic/hospital department * MAGNESIUM LEVEL (12/02/2005 4:15 AM CDT) MAGNESIUM 2.1 1.5 - 2.5 mg/dL INTERFACE SYSTEM 12/02/2005 4:15 AM CDT Harshad Heller MD CHEMISTRY ORDERABLES Final Resu lt Performing Organization Address [facility] Phone Number INTERFACE SYSTEM Refer [...] mmol/L INTERFACE SYSTEM 12/02/2005 4:15 AM CDT us Harshad Heller MD CHEMISTRY ORDERABLES Final Resu lt Performing Organization Address [facility] Phone Number INTERFACE SYSTEM Refer to clinic/hospital department * (ABNORMAL) POC GLUCOSE (12/02/2005 12:13 AM CDT) COMMENT, GLU POC Notified RN INTERFACE SYSTEM GLUCOSE POC 135(H) 65 - 109 mg/dL INTERFACE SYSTEM 12/02/2005 12:1 3 AM CDT Wicho Gomez MD POINT OF CARE TESTING Final R esult Performing Organization Address [facility] Phone Number INTERFACE SYSTEM Refer [...] INTERFACE SYSTEM 12/01/2005 11:0 5 PM CDT Harshad Heller MD ABG ORDERABLES Final Result Performing Organization Address [facility] Phone Number INTERFACE SYSTEM Refer to clinic/hospital department * POC GLUCOSE (12/01/2005 5:32 PM CDT) [facility] GLUCOSE POC 68 65 - 109 mg/dL INTERFACE SYSTEM 12/01/2005 5:32 PM CDT Wicho Gomez MD POINT OF CARE TESTING Final R esult Performing Organization Address [facility] Phone Number INTERFACE SYSTEM Refer [...] *corresponds to therapeutic range for unfractionated heparin PROTIME 17.3(H) 12.7 - 15.1 Seconds INTERFACE SYSTEM INR 1.3(H) 0.9 - 1.1 INTERFACE SYSTEM Comment: INR Therapeutic Range: Adult: 2.0 - 3.0 for pulmonary embolism or prophylaxis against venous thrombosis or systemic embolization. 2.0 - 3.0 for patients with tissue heart valves. 2.5 - 3.5 for patients with mechanical heart valves or post [place]. Pediatric (12 years and under): 1.5 - 3.0 Although the target range in children is not well established , INR values of 1.5 - 3.0 are recommended for most patients. Higher values have been used in children with prosthetic cardiac valves and hereditary clotting disorders. (<3 days) therapeutic ranges have not been established. 12/01/2005 2:00 PM CDT us Harshad Heller MD HEMATOLOGY ORDERABLES Final Res ult INTERFACE SYSTEM Refer to clinic/hospital department * POC GLUCOSE (12/01/2005 12:17 PM CDT) GLUCOSE POC 96 65 - 109 mg/dL INTERFACE SYSTEM 12/01/2005 12:1 7 PM CDT us Wicho Gomez MD [...] *corresponds to therapeutic range for unfractionated heparin 12/01/2005 6:50 AM CDT us Wicho Gomez MD HEMATOLOGY ORDERABLES Final R esult Performing Organization Address [facility] de Phone Number INTERFACE SYSTEM Refer to [...] 60% INTERFACE SYSTEM 12/01/2005 4:14 AM CDT Wicho Gomez MD ABG ORDERABLES Final Result Performing Organization Address [facility] Phone Number INTERFACE SYSTEM Refer to clinic/hospital department * (ABNORMAL) CBC WITH DIFFERENTIAL (12/01/2005 4:14 AM CDT) NEUTROPHIL ABSOLUTE 4.53 1.90 - 7.00 K/uL [...] INTERFA CE SYSTEM 12/01/2005 4:14 AM CDT Romie Laughlin MD HEMATOLOGY ORDERABLES Final Result Performing Organization Address [facility] Phone Number INTERFACE SYSTEM Refer [...] HEMATOLOGY ORDERABLES Final Result Performing Organization Address [facility] Phone Number INTERFACE SYSTEM Refer to clinic/hospital department * (ABNORMAL) CALCIUM IONIZED (12/01/2005 4:14 AM CDT) CALCIUM IONIZED 4.12(L) 4.76 - 5.16 mg/dL INTERFACE SYSTEM 12/01/2005 4:14 AM CDT Romie Laughlin MD CHEMISTRY ORDERABLES Final R esult Performing Organization Address [facility] Phone Number INTERFACE SYSTEM Refer to clinic/hospital department * PHOSPHORUS (12/01/2005 4:14 AM CDT) PHOSPHORUS 3.4 2.5 - 4.5 mg/dL INTERFACE SYSTEM 12/01/2005 4:14 AM CDT Romie Laughlin MD CHEMISTRY ORDERABLES Final R [facility] Performing Organization Address [facility] Phone Number INTERFACE SYSTEM Refer to clinic/hospital department * MAGNESIUM LEVEL (12/01/2005 4:14 AM CDT) MAGNESIUM 2.0 1.5 - 2.5 mg/dL INTERFACE SYSTEM 12/01/2005 4:14 AM CDT Romie Laughlin MD CHEMISTRY ORDERABLES Final R [facility] Performing Organization Address [facility] Phone Number INTERFACE SYSTEM Refer [...] Romie Laughlin MD CHEMISTRY ORDERABLES Final R [facility] Performing Organization Address [facility] Phone Number INTERFACE SYSTEM Refer [...] *corresponds to therapeutic range for unfractionated heparin 12/01/2005 12:1 5 AM CDT us Wicho Gomez MD HEMATOLOGY ORDERABLES Final R [facility] Performing Organization Address [facility] Phone Number INTERFACE SYSTEM Refer to clinic/hospital department * (ABNORMAL) POC GLUCOSE (12/01/2005 12:12 AM CDT) COMMENT, GLU POC Notified RN INTERFACE SYSTEM GLUCOSE POC 124(H) 65 - 109 mg/dL INTERFACE SYSTEM 12/01/2005 12:1 2 AM CDT Wicho Gomez MD POINT OF CARE TESTING Final R [facility] Performing Organization Address [facility] Phone Number INTERFACE SYSTEM Refer to clinic/hospital department * (ABNORMAL) POC GLUCOSE (11/30/2005 5:33 PM CDT) GLUCOSE POC 111(H) 65 - 109 mg/dL INTERFACE SYSTEM 11/30/2005 5:33 PM CDT us Wicho Gomez MD POINT OF CARE TESTING Final R esult Performing Organization Address [facility] Phone Number INTERFACE SYSTEM Refer [...] patients with mechanical heart valves or post [place]. Pediatric (12 years and under): 1.5 - [...] *corresponds to therapeutic range for unfractionated heparin 11/30/2005 5:23 PM CDT Romie Laughlin MD HEMATOLOGY ORDERABLES Final Result Performing Organization Address [facility] Phone Number INTERFACE SYSTEM Refer [...] ABG ORDERABLES Final Result Performing Organization Address [facility] Phone Number INTERFACE SYSTEM Refer to clinic/hospital department * (ABNORMAL) POC GLUCOSE (11/30/2005 11:48 AM CDT) GLUCOSE POC 110(H) 65 - 109 mg/dL INTERFACE SYSTEM COMMENT 4, GLU POC Rptd gluc at no charge INTERFACE SYSTEM 11/30/2005 11:4 8 AM CDT Wicho Gomez MD POINT OF CARE TESTING Final R esult Performing Organization Address [facility] Phone Number INTERFACE SYSTEM Refer to clinic/hospital department * (ABNORMAL) POC GLUCOSE (11/30/2005 11:46 AM CDT) COMMENT, GLU POC Notified RN INTERFACE SYSTEM COMMENT 3, GLU POC Repeated Test INTERFACE SYSTEM GLUCOSE POC 38(AA) 65 - 109 mg/dL INTERFACE SYSTEM 11/30/2005 11:4 6 AM CDT Wicho Gomez MD POINT OF CARE TESTING Final R esult Performing Organization Address [facility] Phone Number INTERFACE SYSTEM Refer to clinic/hospital department * (ABNORMAL) RETICULOCYTES (11/30/2005 10:25 AM CDT) RETICULOCYTES 1.3 0.5 - 2.0 % INTERFACE SYSTEM IMMATURE RETIC FRACTION 18(H) 0 - 16 % INTERFACE SYSTEM 11/30/2005 10:2 5 AM CDT Romie Laughlin MD HEMATOLOGY ORDERABLES Final Result Performing Organization Address [facility] Phone Number INTERFACE SYSTEM Refer [...] ABG ORDERABLES Final Result Performing Organization Address [facility] Phone Number INTERFACE SYSTEM Refer to clinic/hospital department * (ABNORMAL) POC GLUCOSE (11/30/2005 8:19 AM CDT) GLUCOSE POC 175(H) 65 - 109 mg/dL INTERFACE SYSTEM 11/30/2005 8:19 AM CDT Wicho Gomez MD POINT OF CARE TESTING Final R esult Performing Organization Address [facility] Phone Number INTERFACE SYSTEM Refer to clinic/hospital department * (ABNORMAL) POC GLUCOSE (11/30/2005 3:53 AM CDT) GLUCOSE POC 144(H) 65 - 109 mg/dL INTERFACE SYSTEM 11/30/2005 3:53 AM CDT Wicho Gomez MD POINT OF CARE TESTING Final R [facility] Performing Organization Address [facility] Phone Number INTERFACE SYSTEM Refer [...] ABG ORDERABLES Final Result Performing Organization Address [facility] Phone Number INTERFACE SYSTEM Refer [...] HEMATOLOGY ORDERABLES Final Result Performing Organization Address [place]/[facility] Co de Phone Number [...] HEMATOLOGY ORDERABLES Final Result Performing Organization Address City/[facility]/ZIP Co de Phone Number INTERFACE SYSTEM Refer to clinic/hospital department * (ABNORMAL) PREALBUMIN (11/30/2005 3:25 AM CDT) PREALBUMIN <3(L) 20 - 40 mg/dL INTERFACE SYSTEM 11/30/2005 3:25 AM CDT Romie Laughlin MD CHEMISTRY ORDERABLES Final R esult Performing Organization Address [facility] Phone Number INTERFACE SYSTEM Refer to clinic/hospital department * (ABNORMAL) CALCIUM IONIZED (11/30/2005 3:25 AM CDT) CALCIUM IONIZED 4.16(L) 4.76 - 5.16 mg/dL INTERFACE SYSTEM 11/30/2005 3:25 AM CDT Romie Laughlin MD CHEMISTRY ORDERABLES Final R esult Performing Organization Address [facility] Phone Number INTERFACE SYSTEM Refer to clinic/hospital department * PHOSPHORUS (11/30/2005 3:25 AM CDT) PHOSPHORUS 3.4 2.5 - 4.5 mg/dL INTERFACE SYSTEM 11/30/2005 3:25 AM CDT Romie Laughlin MD CHEMISTRY ORDERABLES Final R esult Performing Organization Address [facility] Phone [facility] INTERFACE SYSTEM Refer to clinic/hospital department * MAGNESIUM LEVEL (11/30/2005 3:25 AM CDT) MAGNESIUM 2.0 1.5 - 2.5 mg/dL INTERFACE SYSTEM 11/30/2005 3:25 AM CDT Romie Laughlin MD CHEMISTRY ORDERABLES Final R esult Performing Organization Address [facility] Phone Number INTERFACE SYSTEM Refer [...] R esult Performing Organization Address [facility] Phone Number INTERFACE SYSTEM Refer to clinic/hospital department * POC GLUCOSE (11/30/2005 1:11 AM CDT) GLUCOSE POC 103 65 - 109 mg/dL INTERFACE SYSTEM 11/30/2005 1:11 AM CDT Wicho Gomez MD POINT OF CARE TESTING Final R [facility] Performing Organization Address [facility] Phone Number INTERFACE SYSTEM Refer to clinic/hospital department * (ABNORMAL) POC GLUCOSE (11/29/2005 8:13 PM CDT) GLUCOSE POC 142(H) 65 - 109 mg/dL INTERFACE SYSTEM 11/29/2005 8:13 PM CDT Wicho Gomez MD POINT OF CARE TESTING Final R esult Performing Organization Address [facility] Phone Number INTERFACE SYSTEM Refer [...] ABG ORDERABLES Final Result Performing Organization Address [facility] Phone Number INTERFACE SYSTEM Refer to clinic/hospital department * (ABNORMAL) POC GLUCOSE (11/29/2005 4:16 PM CDT) GLUCOSE POC 151(H) 65 - 109 mg/dL INTERFACE SYSTEM 11/29/2005 4:16 PM CDT Wicho Gomez MD POINT OF CARE TESTING Final R esult Performing Organization Address [facility] Phone Number INTERFACE SYSTEM Refer to clinic/hospital department * (ABNORMAL) POC GLUCOSE (11/29/2005 12:33 PM CDT) GLUCOSE POC 122(H) 65 - 109 mg/dL INTERFACE SYSTEM 11/29/2005 12:3 3 PM CDT Wicho Gomez MD POINT OF CARE TESTING Final R esult Performing Organization Address [facility] Phone Number INTERFACE SYSTEM Refer to clinic/hospital department * (ABNORMAL) POC GLUCOSE (11/29/2005 8:38 AM CDT) GLUCOSE POC 121(H) 65 - 109 mg/dL INTERFACE SYSTEM 11/29/2005 8:38 AM CDT us Wicho Gomez MD POINT OF CARE TESTING Final R esult Performing Organization Address [facility] Phone Number INTERFACE SYSTEM Refer to clinic/hospital department * PHOSPHORUS (11/29/2005 4:20 AM CDT) PHOSPHORUS 3.3 2.5 - 4.5 mg/dL INTERFACE SYSTEM 11/29/2005 4:20 AM CDT Harshad Heller MD CHEMISTRY ORDERABLES Final Resu lt Performing Organization Address [facility] Phone Number INTERFACE SYSTEM Refer to clinic/hospital department * MAGNESIUM LEVEL (11/29/2005 4:20 AM CDT) MAGNESIUM 2.1 1.5 - 2.5 mg/dL INTERFACE SYSTEM 11/29/2005 4:20 AM CDT Harshad Heller MD CHEMISTRY ORDERABLES Final Resu lt Performing Organization Address [facility] Phone Number INTERFACE SYSTEM Refer [...] Res ult Performing Organization Address [facility] Phone Number INTERFACE SYSTEM Refer [...] Res ult Performing Organization Address [facility] de Phone Number INTERFACE SYSTEM Refer to [...] Resu lt Performing Organization Address [facility] Co de Phone Number INTERFACE SYSTEM Refer to clinic/hospital department * (ABNORMAL) CALCIUM IONIZED (11/29/2005 4:20 AM CDT) CALCIUM IONIZED 3.92(L) 4.76 - 5.16 mg/dL INTERFACE SYSTEM 11/29/2005 4:20 AM CDT us Harshad Heller MD CHEMISTRY ORDERABLES Final Resu lt Performing Organization Address [facility] Phone Number INTERFACE SYSTEM Refer [...] ABG ORDERABLES Final Result Performing Organization Address [facility] Phone Number INTERFACE SYSTEM Refer to clinic/hospital department * POC GLUCOSE (11/29/2005 4:19 AM CDT) GLUCOSE POC 106 65 - 109 mg/dL INTERFACE SYSTEM 11/29/2005 4:19 AM CDT Wicho Gomez MD POINT OF CARE TESTING Final R esult Performing Organization Address [facility] Phone Number INTERFACE SYSTEM Refer to clinic/hospital department * POC GLUCOSE (11/29/2005 1:03 AM CDT) GLUCOSE POC 79 65 - 109 mg/dL INTERFACE SYSTEM 11/29/2005 1:03 AM CDT Wicho Gomez MD POINT OF CARE TESTING Final R esult Performing Organization Address [facility] de Phone Number INTERFACE SYSTEM Refer to clinic/hospital department * (ABNORMAL) POC GLUCOSE (11/28/2005 8:40 PM CDT) GLUCOSE POC 130(H) 65 - 109 mg/dL INTERFACE SYSTEM 11/28/2005 8:40 PM CDT Wicho Gomez MD POINT OF CARE TESTING Final R esult Performing Organization Address [facility] de Phone Number INTERFACE SYSTEM Refer to clinic/hospital department * (ABNORMAL) POC GLUCOSE (11/28/2005 6:01 PM CDT) GLUCOSE POC 143(H) 65 - 109 mg/dL INTERFACE SYSTEM 11/28/2005 6:01 PM CDT Wicho Gomez MD POINT OF CARE TESTING Final R [facility] Performing Organization Address [facility] de Phone Number INTERFACE SYSTEM Refer to clinic/hospital department * POC GLUCOSE (11/28/2005 3:13 PM CDT) GLUCOSE POC 93 65 - 109 mg/dL INTERFACE SYSTEM 11/28/2005 3:13 PM CDT Wicho Gomez MD POINT OF CARE TESTING Final R [facility] Performing Organization Address [facility] de Phone Number INTERFACE SYSTEM Refer to clinic/hospital department * (ABNORMAL) POC GLUCOSE (11/28/2005 9:49 AM CDT) GLUCOSE POC 129(H) 65 - 109 mg/dL INTERFACE SYSTEM 11/28/2005 9:49 AM CDT us Wicho Gomez MD POINT OF CARE TESTING Final R esult Performing Organization Address [place]/[facility] Co de Phone Number [...] Harshad Heller MD ABG ORDERABLES Final Result INTERFACE SYSTEM [...] ORDERABLES Final Res ult Performing Organization Address [place]/[facility] de Phone Number INTERFACE SYSTEM Refer to clinic/hospital department * CBC WITH DIFFERENTIAL (11/28/2005 3:45 AM CDT) NRBC 0 <=0 /100 WBC INTERFACE SYSTEM 11/28/2005 3:45 AM CDT Harshad Heller MD HEMATOLOGY ORDERABLES Final Res ult Performing Organization Address [facility] Phone Number INTERFACE SYSTEM Refer [...] ORDERABLES Final Res ult Performing Organization Address [place]/[facility] Phone Number INTERFACE SYSTEM Refer [...] CHEMISTRY ORDERABLES Final Resu Performing Organization Address [facility] Phone Number INTERFACE SYSTEM Refer to clinic/hospital department * MAGNESIUM LEVEL (11/28/2005 3:45 AM CDT) MAGNESIUM 2.1 1.5 - 2.5 mg/dL INTERFACE SYSTEM 11/28/2005 3:45 AM CDT Harshad Heller MD CHEMISTRY ORDERABLES Final Resu Performing Organization Address [facility] Phone Number INTERFACE SYSTEM Refer to clinic/hospital department * (ABNORMAL) CALCIUM IONIZED (11/28/2005 3:45 AM CDT) CALCIUM IONIZED 4.12(L) 4.76 - 5.16 mg/dL INTERFACE SYSTEM 11/28/2005 3:45 AM CDT Harshad Heller MD CHEMISTRY ORDERABLES Final Resu Performing Organization Address [facility] Phone [facility] INTERFACE [...] patients with mechanical heart valves or post [place]. Pediatric (12 years and under): 1.5 - [...] *corresponds to therapeutic range for unfractionated heparin 11/28/2005 3:45 AM CDT Harshad Heller MD HEMATOLOGY ORDERABLES Final Res ult Performing Organization Address [facility] Phone Number INTERFACE SYSTEM Refer to clinic/hospital department * PHOSPHORUS (11/28/2005 3:45 AM CDT) PHOSPHORUS 3.9 2.5 - 4.5 mg/dL INTERFACE SYSTEM 11/28/2005 3:45 AM CDT Harshad Heller MD CHEMISTRY ORDERABLES Final Resu lt Performing Organization Address [facility] Phone Number INTERFACE SYSTEM Refer to clinic/hospital department * (ABNORMAL) POC GLUCOSE (11/28/2005 12:53 AM CDT) GLUCOSE POC 136(H) 65 - 109 mg/dL INTERFACE SYSTEM 11/28/2005 12:5 3 AM CDT Wicho Gomez MD POINT OF CARE TESTING Final R esult Performing Organization Address [facility] Phone Number INTERFACE SYSTEM Refer to clinic/hospital department * (ABNORMAL) POC GLUCOSE (11/27/2005 9:37 PM CDT) GLUCOSE POC 146(H) 65 - 109 mg/dL INTERFACE SYSTEM 11/27/2005 9:37 PM CDT us Wicho Gomez MD POINT OF CARE TESTING Final R esult Performing Organization Address [facility] de Phone Number INTERFACE SYSTEM Refer to [...] 45% INTERFACE SYSTEM 11/27/2005 4:21 PM CDT us Harshad Heller MD ABG ORDERABLES Final Result Performing Organization Address [facility] Phone Number INTERFACE SYSTEM Refer [...] Res ult Performing Organization Address [facility] Co de Phone Number [...] ORDERABLES Final Res ult Performing Organization Address [place]/[facility]/ZIP Co de Phone Number INTERFACE SYSTEM [...] ORDERABLES Final Resu lt Performing Organization Address [place]/[facility] de Phone Number INTERFACE SYSTEM Refer to clinic/hospital department * (ABNORMAL) PHOSPHORUS (11/27/2005 4:00 PM CDT) PHOSPHORUS 1.9(L) 2.5 - 4.5 mg/dL INTERFACE SYSTEM 11/27/2005 4:00 PM CDT Harshad Heller MD CHEMISTRY ORDERABLES Final Resu lt Performing Organization Address [facility] de Phone Number INTERFACE SYSTEM Refer to [...] patients with mechanical heart valves or post [place]. Pediatric (12 years and under): 1.5 - [...] *corresponds to therapeutic range for unfractionated heparin 11/27/2005 4:00 PM CDT Harshad Heller MD HEMATOLOGY ORDERABLES Final Res ult Performing Organization Address [facility] Phone Number INTERFACE SYSTEM Refer to clinic/hospital department * (ABNORMAL) CALCIUM IONIZED (11/27/2005 4:00 PM CDT) CALCIUM IONIZED 4.24(L) 4.76 - 5.16 mg/dL INTERFACE SYSTEM 11/27/2005 4:00 PM CDT Harshad Heller MD CHEMISTRY ORDERABLES Final Resu lt Performing Organization Address [facility] Phone Number INTERFACE SYSTEM Refer to clinic/hospital department * MAGNESIUM LEVEL (11/27/2005 4:00 PM CDT) MAGNESIUM 1.8 1.5 - 2.5 mg/dL INTERFACE SYSTEM 11/27/2005 4:00 PM CDT Harshad Heller MD CHEMISTRY ORDERABLES Final Resu lt Performing Organization Address [facility] Phone Number INTERFACE SYSTEM Refer to clinic/hospital department * (ABNORMAL) POC GLUCOSE (11/27/2005 12:25 PM CDT) GLUCOSE POC 160(H) 65 - 109 mg/dL INTERFACE SYSTEM 11/27/2005 12:2 5 PM CDT Wicho Gomez MD POINT OF CARE TESTING Final R esult Performing Organization Address [facility] Phone Number INTERFACE SYSTEM Refer [...] 99% INTERFACE SYSTEM 11/27/2005 3:15 AM CDT Harshad Heller MD ABG ORDERABLES Final Result Performing Organization Address [facility] Phone Number INTERFACE SYSTEM Refer [...] Res ult Performing Organization Address [facility] Phone Number INTERFACE SYSTEM Refer [...] Res ult Performing Organization Address [facility] Phone Number INTERFACE SYSTEM Refer to clinic/hospital department * LACTIC ACID (11/27/2005 3:15 AM CDT) LACTIC ACID 1.1 0.5 - 2.2 mmol/L INTERFACE SYSTEM 11/27/2005 3:15 AM CDT us Harshad Heller MD CHEMISTRY ORDERABLES Final Resu lt Performing Organization Address [facility] Phone Number INTERFACE SYSTEM Refer [...] patients with mechanical heart valves or post [place]. Pediatric (12 years and under): 1.5 - [...] *corresponds to therapeutic range for unfractionated heparin 11/27/2005 3:15 AM CDT Harshad Heller MD HEMATOLOGY ORDERABLES Final Res ult Performing Organization Address [facility] Phone Number INTERFACE SYSTEM Refer to clinic/hospital department * (ABNORMAL) CALCIUM IONIZED (11/27/2005 3:15 AM CDT) CALCIUM IONIZED 4.12(L) 4.76 - 5.16 mg/dL INTERFACE SYSTEM 11/27/2005 3:15 AM CDT Harshad Heller MD CHEMISTRY ORDERABLES Final Resu lt Performing Organization Address [facility] Phone Number INTERFACE SYSTEM Refer to clinic/hospital department * (ABNORMAL) PHOSPHORUS (11/27/2005 3:15 AM CDT) PHOSPHORUS 2.1(L) 2.5 - 4.5 mg/dL INTERFACE SYSTEM 11/27/2005 3:15 AM CDT Harshad Heller MD CHEMISTRY ORDERABLES Final Resu lt Performing Organization Address [facility] Phone Number INTERFACE SYSTEM Refer to clinic/hospital department * MAGNESIUM LEVEL (11/27/2005 3:15 AM CDT) MAGNESIUM 2.0 1.5 - 2.5 mg/dL INTERFACE SYSTEM 11/27/2005 3:15 AM CDT Harshad Heller MD CHEMISTRY ORDERABLES Final Resu lt Performing Organization Address [facility] Phone Number INTERFACE SYSTEM Refer [...] mmol/L INTERFACE SYSTEM 11/27/2005 3:15 AM CDT us [...] 11:0 0 PM CDT Harshad Heller MD HEMATOLOGY ORDERABLES Final Res ult Performing Organization Address [facility] de Phone Number INTERFACE SYSTEM Refer to [...] 11:0 0 PM CDT Harshad Heller MD HEMATOLOGY ORDERABLES Final [facility] Performing Organization Address [facility] Phone Number INTERFACE SYSTEM Refer [...] patients with mechanical heart valves or post [place]. Pediatric (12 years and under): 1.5 - [...] *corresponds to therapeutic range for unfractionated heparin 11/26/2005 11:0 0 PM CDT Harshad Heller MD HEMATOLOGY ORDERABLES Final Res ult Performing Organization Address [facility] Phone Number INTERFACE SYSTEM Refer to clinic/hospital department * (ABNORMAL) CALCIUM IONIZED (11/26/2005 11:00 PM CDT) CALCIUM IONIZED 4.20(L) 4.76 - 5.16 mg/dL INTERFACE SYSTEM 11/26/2005 11:0 0 PM CDT Harshad Heller MD CHEMISTRY ORDERABLES Final Resu lt Performing Organization Address [facility] Phone Number INTERFACE SYSTEM Refer to clinic/hospital department * (ABNORMAL) PHOSPHORUS (11/26/2005 11:00 PM CDT) PHOSPHORUS 1.5(L) 2.5 - 4.5 mg/dL INTERFACE SYSTEM 11/26/2005 11:0 0 PM CDT Harshad Heller MD CHEMISTRY ORDERABLES Final Resu lt Performing Organization Address [facility] Phone Number INTERFACE SYSTEM Refer to clinic/hospital department * MAGNESIUM LEVEL (11/26/2005 11:00 PM CDT) MAGNESIUM 2.2 1.5 - 2.5 mg/dL INTERFACE SYSTEM 11/26/2005 11:0 0 PM CDT Hrashad Heller MD CHEMISTRY ORDERABLES Final Resu lt Performing Organization Address [facility]/ZIP Co de Phone Number INTERFACE SYSTEM [...] INTER FACE SYSTEM 11/26/2005 4:00 PM CDT us Harshad Heller MD HEMATOLOGY ORDERABLES Final Res ult Performing Organization Address [facility] Co de Phone Number [...] fL INTERFACE SYSTEM 11/26/2005 4:00 PM CDT Harshad Heller MD HEMATOLOGY ORDERABLES Final [facility] Performing Organization [facility] [facility] de Phone Number INTERFACE SYSTEM Refer to [...] patients with mechanical heart valves or post [place]. Pediatric (12 years and under): 1.5 - [...] *corresponds to therapeutic range for unfractionated heparin 11/26/2005 4:00 PM CDT us Harshad Heller MD

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
--- OUTSIDE RECORDS SUMMARY | 2025-01-23 17:17 | XMS_ITS | Encounter Summary ---
Author Organization [facility] Address [address] [place] [address] Care Team Providers Care Purchase Analyst Name Role Phone Morgan Mercado MD Primary Care Provider [phone] Encounter Details Date Type Department Care Team (Late st Contact Info) Description 06/21/2006 Outpatient Historical [facility] [id number] [facility] [address] [place] [phone] Wicho Gomez MD [address] 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
--- OUTSIDE RECORDS SUMMARY | 2025-01-23 17:17 | XMS_ITS | Encounter Summary ---
Author Organization [facility] Address [address] [place] [address] Care Team Providers Care Hydropulper Name Role Phone Morgan Mercado MD Primary Care Provider [phone] Encounter Details Date Type Department Care Team (Late st Contact Info) Description 07/06/2006 Outpatient Historical [facility] [id number] [facility] [address] [place] [phone] Harshad Heller MD [address] [facility] [address] [facility] [place] [address] Social History Tobacco Use Types Packs/Day Years Used Date Smoking Tobacco: Never Assessed Sex and Gender Information Value Date Recorded Sex Assigned at Not on file 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
== END 2025-01-23 15:07 | disposition home or self-care (01) ==
LOC: ANHIMG 15:10
PROVIDERS: PCP Internal Medicine Nephrology; Visit Provider Emergency Medicine
DX: Z12.2 Encounter for screening for malignant neoplasm of respiratory organs (principal); Z87.891 Personal history of nicotine dependence; R91.8 Other nonspecific abnormal finding of lung field
CPT/HCPCS: 71271